=== PATIENT | female | born 1975 | race Caucasian/White ===

== ENCOUNTER 2016-11-14 10:54 | Inpatient (IN) | payer MEDICARE, MEDICAID ==
[~2016-11-14] VITALS: Ht 162.6 cm; Wt 48.7 kg
[2016-11-14] VITALS (9 sets, daily range): BP systolic 90–109; BP diastolic 54–66; PULSE 61–94; RESP 16–18; TEMP 95.5–98.7; O2SAT 95–100
[~2016-11-14 10:54] MED LIST: AMIT25TA9 PO; CITA40TA4 PO; IMIT50TA PO; MEST60TA PO; MYCO500 PO; PRED10 PO; TRAM50TA PO; XANA1TAB2 PO
[2016-11-14] MEDS ORDERED: KETOROLAC TROMETHAMINE 30 MG/ML (IVP) VIAL IV PUSH ONE (11:30)
[2016-11-14] MEDS ORDERED: SODIUM CHLORIDE 0.9% FLUSH 5 ML FLUSH IVF PRN (11:30)
[2016-11-14] MEDS ORDERED: SODIUM CHLORID 0.9% 500 ML INJ 500 ML IV ONE (11:30)
[2016-11-14 11:42] LABS: AUTOMATED NEUTROPHIL # 12.7 TH/MM3 (1.8-7.7); BASOPHIL # 0.1 TH/MM3 (0-0.2); BASOPHIL % 0.6 % (0.0-2.0); EOSINOPHIL # 0.2 TH/MM3 (0-0.4); EOSINOPHIL % 1.2 % (0.0-4.0); HEMATOCRIT 34.3 % (35.0-46.0); HEMO FLAGS DIFF FINAL; LYMPHOCYTE # 3.1 TH/MM3 (1.0-4.8); MEAN CELL VOLUME 84.2 FL (80.0-100.0); MEAN CORPUSCULAR HEMOGLOBIN 27.9 PG (27.0-34.0); MEAN CORPUSCULAR HGB CONC 33.1 % (32.0-36.0); MONO % 5.7 % (0.0-8.0); NEUT % 74.5 % (16.0-70.0); PLATELET COUNT 395 TH/MM3 (150-450); RED BLOOD COUNT 4.07 MIL/MM3 (4.00-5.30); RED CELL DISTRIBUTION WIDTH 18.2 % (11.6-17.2); WHITE BLOOD COUNT 17.1 TH/MM3 (4.0-11.0)
[2016-11-14] MEDS ORDERED: PRED20 PO (11:50)
--- NOTE | 2016-11-14 11:50 | PD ---
HPI Chief Complaint: General Weakness Time Seen by Provider: 11:05 Travel History International Travel<30 days: No Contact w/Intl Traveler<30days: No Traveled to known affect area: No History of Present Illness HPI Patient is a 41-year-old female with history of myasthenia gravis, presents to emergency room with complaints of myasthenia gravis exacerbation. Patient has had multiple admissions for myasthenia gravis exacerbation was diagnosed in 2011. Patient reports that she has follow-up with Drs. Leonardo De La Fuente in the past , reports that now she follows up with in the office. Patient reports that since Wednesday, she has had increased right eye proptosis as well as generalized weakness as well as weakness in her legs and neck muscles. Patient reports that she does follow with Dr. Banuelos with neurology in his office last seen on Wednesday and was told that she was having the beginning of "MG exacerbation". Reports that she has been compliant with all her medications as prescribed. Patient reports that she has been prescribed Mestinon, CellCept and prednisone, reports that she has been taking all his medications as prescribed. Reports that every time she has myasthenia gravis exacerbation, she gets admitted to the hospital for IVIG. Patient denies shortness of breath or chest pain at this time. Patient denies nausea or vomiting. No other c/o. PFSH Past Medical History Anemia: Yes Arthritis: No Autoimmune Disease: Yes (MYASTHENA GRAVIS) Blood Disorders: No Anxiety: Yes Depression: Yes Heart Rhythm Problems: No Cancer: No Cardiovascular Problems: No High Cholesterol: No Chest Pain: No Congestive Heart Failure: No Cerebrovascular Accident: No Cystic Fibrosis: No Diabetes: No Diminished Hearing: No Endocrine: No Gastrointestinal Disorders: Yes Genitourinary: No Hepatitis: No Hiatal Hernia: No Hypertension: No Immune Disorder: Yes (MYASTHENIA GRAVIS) Implanted Vascular Access Dvce: Yes (left chest) Musculoskeletal: Yes Neurologic: Yes (MYASTHENIA GRAVIS - Jul, 2013) Psychiatric: Yes (DEPRESSION, ANXIETY) Reproductive: No Respiratory: No Immunizations Current: No Migraines: Yes Seizures: No Thyroid Disease: No ?: Not : 2 Para: 2 Dilation and Curettage (D&C): Yes Tubal Ligation: Yes Past Surgical History Abdominal Surgery: No Body Medical Devices: LEFT IMPLANTED PORT Cardiac Surgery: No Ear Surgery: No Endocrine Surgery: Yes ( ) Eye Surgery: No Genitourinary Surgery: No Gynecologic Surgery: Yes (tubal ligation 2014) Neurologic Surgery: No Oral Surgery: Yes (EXTRACTIONS) Thoracic Surgery: No Tonsillectomy: Yes Other Surgery: Yes (tubal ligation Dec 2014/ POWER PORT TO LEFT CHEST) Social History Alcohol Use: No Tobacco Use: Yes (< 1/2 PPD) Substance Use: No Allergies-Medications (Allergen,Severity, Reaction): Coded Allergies: Penicillin (Verified Allergy, Severe, Anaphylaxis, 11/14/16) Phenergan (Verified Adverse Reaction, Severe, NAUSEOUS, 11/14/16) Reported Meds & Prescriptions Reported Meds & Active Scripts Active Reported Prednisone 20 Mg Tab 20 Mg PO DAILY Tramadol (Tramadol HCl) 50 Mg Tab 50 Mg PO Q4H PRN Mestinon (Pyridostigmine [place]) 60 Mg Tab 120 Mg PO TID Imitrex (Sumatriptan Succinate) 50 Mg Tab 50 Mg PO DAILY PRN If a satisfactory response has not been obtained at 2 hours, a second dose may be administered Citalopram (Citalopram Hydrobromide) 40 Mg Tab 40 Mg PO DAILY Amitriptyline (Amitriptyline HCl) 25 Mg Tab 25 Mg PO HS Xanax (Alprazolam) 1 Mg Tab 1 Mg PO QID Review of Systems General / Constitutional: No: Fever Eyes: Positive: Other (ptosis), No: Visual changes HENT: No: Headaches Cardiovascular: No: Chest Pain or Discomfort Respiratory: No: Shortness of Breath Gastrointestinal: No: Abdominal Pain Genitourinary: No: Dysuria Musculoskeletal: Positive: Weakness, No: Pain Skin: No Rash Neurologic: No: Weakness Psychiatric: No: Depression Endocrine: No: Polydipsia Hematologic/Lymphatic: No: Easy Bruising Physical Exam Narrative GENERAL: mild distress SKIN: Warm and dry. HEAD: Atraumatic. Normocephalic. EYES: Pupils equal and round. right eye ptosis ENT: No nasal bleeding or discharge. Mucous membranes pink and moist. NECK: Trachea midline. No JVD. CARDIOVASCULAR: Regular rate and rhythm. No murmur appreciated. RESPIRATORY: No accessory muscle use. Clear to auscultation. Breath sounds equal bilaterally. GASTROINTESTINAL: Abdomen soft, non-tender, nondistended. Hepatic and splenic margins not palpable. MUSCULOSKELETAL: No obvious deformities. No clubbing. No cyanosis. No edema. NEUROLOGICAL: Awake and alert. No obvious cranial nerve deficits. Motor grossly within normal limits. Normal speech. PSYCHIATRIC: Appropriate mood and affect; insight and judgment normal. Data Data Last Documented VS Vital Signs Date Time Temp Pulse Resp B/P Pulse Ox O2 Delivery O2 Flow Rate FiO2 11/14/16 11:38 98 Room Air 11/14/16 11:05 90 18 11/14/16 11:05 98.7 109/66 Orders Electrocardiogram (11/14/16 11:17) Ckmb (Isoenzyme) Profile (11/14/16 11:17) Complete Blood Count With Diff (11/14/16 11:17) Comprehensive Metabolic Panel (11/14/16 11:17) Prothrombin Time / Inr (Pt) (11/14/16 11:17) Act Partial Throm Time (Ptt) (11/14/16 11:17) Troponin I (11/14/16 11:17) Chest, Single Ap (11/14/16 11:17) Ecg Monitoring (11/14/16 11:17) Iv Access Insert/Monitor (11/14/16 11:17) Oximetry (11/14/16 11:17) Sodium Chloride 0.9% Flush (Ns Flush) (11/14/16 11:30) Sodium Chlorid 0.9% 500 Ml Inj (Ns 500 M (11/14/16 11:30) Ed Urine Pregnancytest Poc (11/14/16 11:17) Ketorolac Inj (Toradol Inj) (11/14/16 11:30) Resp Incentive Spirometry (11/14/16 ) Consult Neurology (11/14/16 ) Admit Order (Ed Use Only) (11/14/16 13:04) Labs Laboratory Tests Test 11/14/16 11:30 White Blood Count 17.1 TH/MM3 Red Blood Count 4.07 MIL/MM3 Hemoglobin 11.4 GM/DL Hematocrit 34.3 % Mean Corpuscular Volume 84.2 FL Mean Corpuscular Hemoglobin 27.9 PG Mean Corpuscular Hemoglobin 33.1 % Concent Red Cell Distribution Width 18.2 % Platelet Count 395 TH/MM3 Mean Platelet Volume 8.4 FL Neutrophils (%) (Auto) 74.5 % Lymphocytes (%) (Auto) 18.0 % Monocytes (%) (Auto) 5.7 % Eosinophils (%) (Auto) 1.2 % Basophils (%) (Auto) 0.6 % Neutrophils # (Auto) 12.7 TH/MM3 Lymphocytes # (Auto) 3.1 TH/MM3 Monocytes # (Auto) 1.0 TH/MM3 Eosinophils # (Auto) 0.2 TH/MM3 Basophils # (Auto) 0.1 TH/MM3 CBC Comment DIFF FINAL Differential Comment Prothrombin Time 10.6 SEC Prothromb Time International 1.0 RATIO Ratio Activated Partial 28.7 SEC Thromboplast Time Sodium Level 138 MEQ/L Potassium Level 3.2 MEQ/L Chloride Level 107 MEQ/L Carbon Dioxide Level 27.6 MEQ/L Anion Gap 3 MEQ/L Blood Urea Nitrogen 4 MG/DL Creatinine 0.85 MG/DL Estimat Glomerular Filtration 74 ML/MIN Rate Random Glucose 79 MG/DL Calcium Level 8.7 MG/DL Total Bilirubin 0.2 MG/DL Aspartate Amino Transf 10 U/L (AST/SGOT) Alanine Aminotransferase 14 U/L (ALT/SGPT) Alkaline Phosphatase 44 U/L Total Creatine Kinase 75 U/L Troponin I LESS THAN 0.02 NG/ML Total Protein 6.7 GM/DL Albumin 3.8 GM/DL [facility] Medical Decision Making Medical Screen Exam Complete: Yes Emergency Medical Condition: Yes Interpretation(s) EKG at 1146: Normal sinus rhythm at 80 bpm, QT/QTC 370/409, no acute ST or T- wave changes. Vital Signs Date Time Temp Pulse Resp B/P Pulse Ox O2 Delivery O2 Flow Rate FiO2 11/14/16 11:38 98 Room Air 11/14/16 11:05 90 18 98 Room Air 11/14/16 11:05 98.7 94 18 109/66 98 Room Air 11/14/16 11:01 98.7 92 18 109/66 98 Differential Diagnosis Electrolyte abnormality, myasthenia gravis exacerbation Narrative Course Patient is a 41-year-old female who presents to emergency room from treatment and evaluation of myasthenia gravis exacerbation. Patient reports that she has had aura proptosis as well as generalized weakness since Wednesday of last week. Patient does follow with Dr. Banuelos with neurology as outpt and was last seen on wednesday. Reports her symptoms are similar to when she's had exacerbations of MG in the past. Call made to - reports that he did see her in the office last week. Reports the patient does have IVIG and CellCept which patient has not been able to obtain secondary to change of insurance. Reports that he had planned to eventually change her from IVIG to Imuron. Request that patient be admitted to hospital for IVIG treatment for MG exacerbation. Dr Banuelos does not have privileges here at [facility]. Call made to medicine for admission. Discussed case with Dr. Mckeon who will see patient in consult case discussed with Dr Solomon who accepts pt to service. Dr. Ta request that I give her the first dose of IVIG in the emergency room. Previous records were reviewed, patient received IVIG therapy at 400 mg/kg per day 3 days. Will give her a 400 mg/kg dose at this time. Diagnosis Primary Impression: Myasthenia gravis with exacerbation Admitting Information Admitting Physician Requests: Jessy Escobar DO Nov 14, 2016 11:50
--- NOTE | 2016-11-14 11:51 | RADRPT ---
EXAM DATE/TIME: 11/14/2016 11:38 [facility] COMPARISON: No previous studies available for comparison. INDICATIONS : Fever. General weakness. MEDICAL HISTORY : Myasthenia gravis SURGICAL HISTORY : [place]. ENCOUNTER: Initial ACUITY: 1 day PAIN SCORE: 0/10 LOCATION: Bilateral chest FINDINGS: A single view of the chest demonstrates the lungs to be symmetrically aerated without evidence of mas s, infiltrate or effusion. The cardiomediastinal contours are unremarkable. Left-sided portacatheter unchanged. Osseous structures are intact. CONCLUSION: No acute disease. Reginald Fisher MD on November 14, 2016 at 11:49 Board Certified Radiologist. This report was verified electronically.
[2016-11-14 11:58] LABS: APTT (PATIENT) 28.7 SEC (24.3-30.1); PROTHROMBIN TIME - PATIENT 10.6 SEC (9.8-11.6)
[2016-11-14 11:59] LABS: ANION GAP 3 MEQ/L (5-15); AST (GOT) 10 U/L (15-37); BICARBONATE 27.6 MEQ/L (21.0-32.0); BLOOD UREA NITROGEN 4 MG/DL (7-18); CHLORIDE 107 MEQ/L (98-107); GLOMERULAR FILTRATION RATE 74 ML/MIN (>89); POTASSIUM 3.2 MEQ/L (3.5-5.1); SODIUM (NA) 138 MEQ/L (136-145)
[2016-11-14 12:05] LABS: ALKALINE PHOSPHATASE 44 U/L (45-117); ALT (GPT) 14 U/L (10-53); TOTAL BILIRUBIN ADULT 0.2 MG/DL (0.2-1.0)
[2016-11-14 12:11] LABS: CREATINE KINASE 75 U/L (26-192)
[2016-11-14] MEDS ORDERED: IMMUNE GLOBULIN INJ 20 GM in SYRINGE/BAG 1 EA IV SCH (13:15)
[2016-11-14] MEDS ORDERED: DIPHENHYDRAMINE HCL 50 MG/ML VIAL Reaction Med IV PUSH PRN (14:00)
[2016-11-14] MEDS ORDERED: EPINEPHRINE HCL (1:1000) 1 MG/ML AMP Reaction Med OTHER PRN (14:00)
[2016-11-14] MEDS ORDERED: MAGNESIUM HYDROXIDE SUSP 30 ML CUP PO PRN (14:15)
[2016-11-14] MEDS ORDERED: NALOXONE HCL 0.4 MG/ML AMP IV PRN (14:15)
[2016-11-14] MEDS ORDERED: BISACODYL 10 MG SUPP PR PRN (14:15)
[2016-11-14] MEDS: DOCUSATE SODIUM 100 MG CAP PO SCH ×2 (14:15→21:00)
[2016-11-14] MEDS ORDERED: SODIUM CHLORIDE 0.9% FLUSH 5 ML FLUSH FLUSH PRN (14:15)
[2016-11-14] MEDS ORDERED: SUMAtriptan SUCCINATE 50 MG TAB PO PRN (14:30)
[2016-11-14] MEDS: HEPARIN SODIUM - SQ 10,000 UNITS/ML VIAL SQ SCH ×2 (15:00→21:40)
[2016-11-14] MEDS ORDERED: ACETAMINOPHEN 325 MG TAB PO PRN (15:00)
[2016-11-14] MEDS: D5W as prime bag (IVIG as secondary) IV SCH (15:00)
[2016-11-14] MEDS: DIPHENHYDRAMINE HCL 25 MG CAP Pre-med PO SCH (15:14)
[2016-11-14] MEDS: NS 500 ML Pre-hydration IV SCH (15:14)
[2016-11-14] MEDS: ACETAMINOPHEN 325 MG TAB Pre-med PO SCH (15:15)
[2016-11-14] MEDS: IMMUNE GLOBULIN INJ 20 GM in SYRINGE/BAG 1 EA IV SCH (16:13)
--- NOTE | 2016-11-14 16:51 | HHI.HP ---
HPI Service [facility] Hospitalists Primary Care Physician Unknown Admission Diagnosis Myastenia Gravis Exacerbation Diagnoses: Chief Complaint: Myasthenia gravis flareup Travel History International Travel<30 Days: No Contact w/Intl Traveler <30 Da: No Traveled to Known Affected Are: No History of Present Illness 41 years old female with a history of myasthenia gravis diagnosed in 2011 with multiple several relapses and admission to the hospital patient follow up with Dr. De La Fuente and she start following up with another neurology who doesn't have privileges at [facility], the neurologist was contacted from ED stating that patient stop getting her CellCept and IVIG due to lack of insurance coverage. Patient having problem with severe worsening weakness, neurologist recommended admission to the hospital and consulting the house neurology. When I came to see the patient she was extremely subtle and after getting ketorolac and Benadryl, she was unable to give any history. She was arousable to tactile stimuli but she goes right back to sleep. I discussed with the nurse, patient started on IVIG dose, patient had thymectomy in 2012, most of the history was obtained from EMR previous record Review of Systems ROS Limitations: Clinical Condition, Other (patient is extremely subtle and after getting Benadryl and ketorolac in ED) Past Family Social History Past Medical History Myasthenia gravis Anxiety Depression Questionable chronic pain syndrome? Past Surgical History Past Surgical History Tonsillectomy Thymectomy Port placement of left chest Allergies: Coded Allergies: Penicillin (Verified Allergy, Severe, Anaphylaxis, 11/14/16) Phenergan (Verified Adverse Reaction, Severe, NAUSEOUS, 11/14/16) Family History Father had history of pancreatic cancer Mother with history of hypothyroidism Social History No alcohol abuse Smoke < 1/2 PPD) Positive history of Marijuana use Physical Exam Vital Signs Vital Signs Date Time Temp Pulse Resp B/P Pulse Ox O2 Delivery O2 Flow Rate FiO2 11/14/16 15:00 74 16 101/59 100 Room Air 11/14/16 13:00 94 17 108/61 100 Room Air 11/14/16 11:38 98 Room Air 11/14/16 11:05 90 18 98 Room Air 11/14/16 11:05 98.7 94 18 109/66 98 Room Air 11/14/16 11:01 98.7 92 18 109/66 98 Physical Exam - GENERAL: This is a thin female, somnolent in no apparent distress. SKIN: No rashes, warm and dry HEAD: Atraumatic. Normocephalic. EYES: Pupils equal restricted. ENT: Nose without bleeding, or drainage, Airway patent. NECK: Trachea midline. Supple CARDIOVASCULAR: Regular rate and rhythm without murmurs, gallops, or rubs. RESPIRATORY: Fair air entry bilaterally. No wheezes, rales, or rhonchi. GASTROINTESTINAL: Abdomen soft, non-tender, nondistended. Positive bowel sounds MUSCULOSKELETAL: Extremities without clubbing, cyanosis, or edema. Pedal pulses appreciated NEUROLOGICAL: Somnolent, abusable to tactile stimuli Laboratory Laboratory Tests Test 11/14/16 11:30 White Blood Count 17.1 Red Blood Count 4.07 Hemoglobin 11.4 Hematocrit 34.3 Mean Corpuscular Volume 84.2 Mean Corpuscular Hemoglobin 27.9 Mean Corpuscular Hemoglobin 33.1 Concent Red Cell Distribution Width 18.2 Platelet Count 395 Mean Platelet Volume 8.4 Neutrophils (%) (Auto) 74.5 Lymphocytes (%) (Auto) 18.0 Monocytes (%) (Auto) 5.7 Eosinophils (%) (Auto) 1.2 Basophils (%) (Auto) 0.6 Neutrophils # (Auto) 12.7 Lymphocytes # (Auto) 3.1 Monocytes # (Auto) 1.0 Eosinophils # (Auto) 0.2 Basophils # (Auto) 0.1 CBC Comment DIFF FINAL Differential Comment Prothrombin Time 10.6 Prothromb Time International 1.0 Ratio Activated Partial 28.7 Thromboplast Time Sodium Level 138 Potassium Level 3.2 Chloride Level 107 Carbon Dioxide Level 27.6 Anion Gap 3 Blood Urea Nitrogen 4 Creatinine 0.85 Estimat Glomerular Filtration 74 Rate Random Glucose 79 Calcium Level 8.7 Total Bilirubin 0.2 Aspartate Amino Transf 10 (AST/SGOT) Alanine Aminotransferase 14 (ALT/SGPT) Alkaline Phosphatase 44 Total Creatine Kinase 75 Troponin I LESS THAN 0.02 Total Protein 6.7 Albumin 3.8 Result Diagram: 11/14/16 1130 11/14/16 1130 Assessment and Plan Assessment and Plan 5 years old female with history of myasthenia gravis and thymectomy came with Myasthenia gravis flareup: Neurology consulted, started IVIG, continue prednisone and Mestinon from home meds rec, close monitoring for any respiratory failure Anxiety and depression: Resume Elavil, Celexa from home meds rec Chronic back pain: Avoid narcotics at this point, questionable history of drug- seeking behavior in the past DVT prophylaxis with heparin and SCD Discussed with the nurse and with the ED PA Discussed Condition With PA from ED and nurse Physician Certification 2 Midnight Certification Type: Admission for Inpatient Services Order for Inpatient Services The services are ordered in accordance with Medicare regulations or non- Medicare payer requirements, as applicable. In the case of services not specified as inpatient-only, they are appropriately provided as inpatient services in accordance with the 2-midnight benchmark. Estimated LOS (days): 2 days is the estimated time the patient will need to remain in the hospital, assuming treatment plan goals are met and no additional complications. Post-Hospital Plan: Not yet determined Miguel Ángel Solomon MD Nov 14, 2016 16:51
[2016-11-14] MEDS: ALPRAZolam 1 MG TAB PO SCH ×2 (18:00→21:00)
[2016-11-14] MEDS: PYRIDOSTIGMINE BROMIDE 60 MG TAB PO SCH (18:00)
[2016-11-14] MEDS: AMITRIPTYLINE HCL 25 MG TAB PO SCH (21:00)
[2016-11-14] MEDS: SODIUM CHLORIDE 0.9% FLUSH 5 ML FLUSH FLUSH SCH (21:40)
[2016-11-15] VITALS (10 sets, daily range): BP systolic 93–142; BP diastolic 50–89; PULSE 62–87; RESP 16–18; TEMP 95.7–98.8; O2SAT 96–100
[2016-11-15] MEDS: ALPRAZolam 1 MG TAB PO SCH ×4 (03:13→20:10)
[2016-11-15] MEDS: KETOROLAC TROMETHAMINE 60 MG/2 ML (IM) VIAL IM PRN ×4 (03:14→20:18)
[2016-11-15] MEDS: HEPARIN SODIUM - SQ 10,000 UNITS/ML VIAL SQ SCH ×3 (03:31→20:21)
[2016-11-15 03:45] LABS: AUTOMATED NEUTROPHIL # 4.9 TH/MM3 (1.8-7.7); BASOPHIL # 0.1 TH/MM3 (0-0.2); BASOPHIL % 0.9 % (0.0-2.0); EOSINOPHIL # 0.3 TH/MM3 (0-0.4); EOSINOPHIL % 3.4 % (0.0-4.0); HEMATOCRIT 32.7 % (35.0-46.0); HEMO FLAGS DIFF FINAL; LYMPH % 32.3 % (9.0-44.0); LYMPHOCYTE # 2.7 TH/MM3 (1.0-4.8); MEAN CELL VOLUME 85.4 FL (80.0-100.0); MEAN CORPUSCULAR HEMOGLOBIN 28.5 PG (27.0-34.0); MEAN CORPUSCULAR HGB CONC 33.4 % (32.0-36.0); NEUT % 58.4 % (16.0-70.0); PLATELET COUNT 323 TH/MM3 (150-450); RED BLOOD COUNT 3.83 MIL/MM3 (4.00-5.30); RED CELL DISTRIBUTION WIDTH 17.9 % (11.6-17.2); WHITE BLOOD COUNT 8.5 TH/MM3 (4.0-11.0)
[2016-11-15 03:51] LABS: BICARBONATE 29.2 MEQ/L (21.0-32.0)
--- NOTE | 2016-11-15 04:18 | MB ---
cc: JOSÉ ESTEVEZ MD DATE OF CONSULTATION: 09/13/2017 REASON FOR CONSULTATION: Myasthenia gravis exacerbation. HISTORY OF PRESENT ILLNESS Ms. Rodríguez is a 41-year-old female with past medical history of myasthenia gravis diagnosed in 2011 with several admissions to the hospital for relapses and IVIG administration. She used to follow with Dr. De La Fuente who discharged her from his service and now she has follow up with Dr. Charlton who does not have privileges at [facility]. Her current neurologist was contacted by the ED physician and he stated that the patient currently is not getting CellCept or IVIG due to lack of insurance coverage. The patient states during the encounter that she has severe worsening of her symptoms double vision, blurry vision, difficulty with swallowing. During the encounter the patient was very sleepy after she received acute Ketorolac and Benadryl. The patient will be started on a IVIG under the recommendation of her neurologist and the worsening of her myasthenia gravis symptoms. REVIEW OF SYSTEMS A 12-point review of system is negative except for what is mentioned above. PAST MEDICAL HISTORY Obtained from medical records as the patient was sleepy during most of the encounter. 1. Myasthenia gravis. 2. Anxiety. 3. Depression. 4. Chronic pain. PAST SURGICAL HISTORY 1. Tonsillectomy, thymectomy in 2012. 2. Port placement of the left chest. ALLERGIES: PENICILLIN PHENERGAN FAMILY HISTORY Father with history of pancreatic cancer, mother with history of hypothyroidism. SOCIAL HISTORY: Denies alcohol use. Smokes daily half pack per day, history of marijuana use. Chronic pain medication user. PHYSICAL EXAMINATION General: The patient was sleepy and somnolent during most of the encounter but arousable to verbal stimuli. Not in acute distress. HEENT: Atraumatic, normocephalic. Intact hearing, intact vision. NECK: Supple. Mild weakness of neck flexion. No signs of meningeal irritation. CARDIOVASCULAR: Regular rate and rhythm. No murmurs. RESPIRATORY: Clear to auscultation, no wheezes. NEUROLOGIC: Awake, oriented to time, person, place, however, sleepy due to the effect of the different medications. Cranial nerves show bilateral ptosis with nasal tune to her speech. Total bilateral facial palsy. Intact elevation of the uvula. Weak neck flexor. Pupils 2 millimeters equal and reactive, bilateral shoulder abduction 5 minus, hip flexion 4+/5. The rest of the motor system is 5/5. No abnormal movement, normal tone. Reflexes 1+ bilateral symmetrical. Plantars bilateral downgoing. Sensation is intact, cerebellar function is intact. Gait and stance is deferred at this time. LABORATORY DATA: White blood cells 17.1, hemoglobin 11.4, MCV 84.2, platelet count 395, sodium 138, potassium 3.2, anion gap 3, BUN 4, creatinine 0.85, calcium 8.7, AST 10, ALT 14. DIAGNOSTIC IMPRESSION 1. History of myasthenia gravis. 2. Myasthenia gravis exacerbation. PLAN: 1. IVIG three doses at 400 mg/Kg/day. To receive first dose this evening. 2. Continue prednisone at home dose 20 mg daily. 3. Continue Mestinon at 120 mg three times daily home dose. 4. Check vital capacity twice daily 5. PT, OT recommendations are appreciated. 6. Bedside swallow test. 7. Vital signs: Checks q. 6 hourly. Thank you for the opportunity to participate in the care of your patient. id MD GREG Solomon/TIM /9:40 PM /3:41 AM [email or web address]
[2016-11-15] MEDS: predniSONE 20 MG TAB PO SCH (07:31)
[2016-11-15] MEDS: DOCUSATE SODIUM 100 MG CAP PO SCH ×2 (07:31→20:10)
[2016-11-15] MEDS: PYRIDOSTIGMINE BROMIDE 60 MG TAB PO SCH ×3 (07:31→18:16)
[2016-11-15] MEDS: CITALOPRAM HYDROBROMIDE 40 MG TAB PO SCH (07:31)
[2016-11-15] MEDS: SODIUM CHLORIDE 0.9% FLUSH 5 ML FLUSH FLUSH SCH ×2 (09:00→20:10)
--- NOTE | 2016-11-15 12:06 | EKG ---
Date Performed: 11/14/2016 Time Performed: 11:46:56 PTAGE: 41 years EKG: Sinus rhythm POSSIBLE RIGHT ATRIAL ENLARGEMENT LEFT ATRIAL ENLARGEMENT BORDERLINE RIGHT AXIS DEVIATION NONSPECIFI C T-WAVE ABNORMALITY Since previous tracing, no significant change noted ABNORMAL ECG PREVIOUS TRACING : 08/20/2015 15.25 DOCTOR: Ko Smith Interpretating Date/Time 11/15/2016 12:05:04
--- NOTE | 2016-11-15 13:11 | HHI.PR ---
Subjective Remarks Patient looks much better today she is awake alert she was on the phone and trying to write some nodes She told me her right eye "soggy and blurry ", no chest pain or short of breath or fever or chills Patient seen by neurology she stated she would rather have 5 of the IVIG doses instead of 3, she discussed that with the neurology and he recommended assessing on a daily basis Patient asked for pain medication and to change her diet to regular Objective Vitals Vital Signs Date Time Temp Pulse Resp B/P Pulse Ox O2 Delivery O2 Flow Rate FiO2 11/15/16 07:14 97.5 66 16 93/54 96 11/15/16 04:01 96.4 62 17 96/51 96 11/15/16 00:03 96.0 69 17 98/54 96 11/14/16 20:01 96.6 61 16 92/54 95 11/14/16 20:00 64 11/14/16 16:35 95.5 66 18 90/55 100 11/14/16 15:00 74 16 101/59 100 Room Air I/O 11/14/16 11/14/16 11/14/16 11/15/16 11/15/16 11/15/16 07:00 15:00 23:00 07:00 15:00 23:00 Intake Total 560 ml 713 ml Balance 560 ml 713 ml Intake Oral 360 ml 480 ml IV Total 200 ml 233 ml # Voids 1 1 # Bowel Movements 0 0 Result Diagram: 11/15/16 0320 11/15/16 0320 Objective Remarks - GENERAL: This is a well-nourished, well-developed patient, in no apparent distress. SKIN: No rashes, warm and dry HEAD: Atraumatic. Normocephalic. EYES: Mild ptosis on the right eye ENT: Nose without bleeding, or drainage, Airway patent. NECK: Trachea midline. Supple CARDIOVASCULAR: Regular rate and rhythm without murmurs, gallops, or rubs. RESPIRATORY: Fair air entry bilaterally. No wheezes, rales, or rhonchi. GASTROINTESTINAL: Abdomen soft, non-tender, nondistended. Positive bowel sounds MUSCULOSKELETAL: Extremities without clubbing, cyanosis, or edema. Pedal pulses appreciated NEUROLOGICAL: Awake and alert. Moves all extremity. Normal speech.no focal neurological deficit A/P Assessment and Plan 5 years old female with history of myasthenia gravis and thymectomy came with Myasthenia gravis flareup: Appreciate Neurology consultation,, recommended continuing IVIG, continue prednisone and Mestinon , close monitoring for any respiratory failure vital capacity twice a day Anxiety and depression: Resume Elavil, Celexa from home meds rec Chronic back pain: Avoid narcotics at this point, questionable history of drug- seeking behavior in the past DVT prophylaxis with heparin and SCD Miguel Ángel Solomon MD Nov 15, 2016 13:11
[2016-11-15] MEDS: NS 500 ML Pre-hydration IV SCH (15:00)
[2016-11-15] MEDS: D5W as prime bag (IVIG as secondary) IV SCH (15:00)
[2016-11-15] MEDS: DIPHENHYDRAMINE HCL 25 MG CAP Pre-med PO SCH (15:03)
[2016-11-15] MEDS: ACETAMINOPHEN 325 MG TAB Pre-med PO SCH (15:03)
[2016-11-15] MEDS: NICOTINE 21 MG/24 HR PATCH TD SCH (15:46)
[2016-11-15] MEDS: IMMUNE GLOBULIN INJ 20 GM in SYRINGE/BAG 1 EA IV SCH (15:54)
[2016-11-15] MEDS: AMITRIPTYLINE HCL 25 MG TAB PO SCH (20:10)
[2016-11-15] MEDS: REMOVE OLD NICODERM (NICOTINE) PATCH TD SCH (20:21)
[2016-11-15] MEDS: IMPLANTED VASCULAR ACCESS PORT - SODIUM CHLORIDE FLUSH PRN IVF (23:35)
--- NOTE | 2016-11-15 23:52 | HHI.PR ---
Review/Management Diagnosis - History of myasthenia gravis. - Myasthenia gravis exacerbation. Plan 1. IVIG three doses at 400 mg/Kg/day. Today second dose of three. 2. Continue prednisone at home dose 20 mg daily. 3. Continue Mestinon at 120 mg three times daily home dose. 4. Check vital capacity twice daily 5. PT, OT recommendations are appreciated. 6. Bedside swallow test. 7. Vital signs: Checks q. 6 hourly. Diagnosis/Plan: Subjective Subjective Comments No acute events reported No headache No chest pain No dyspnea Active Medications Current Medications Medications (Trade) Dose Ordered Sig/Gómez Route Start Time Stop Time Status Last Admin (NS 500 ml Inj) 500 ml @ 500 mls/hr Q24H IV 11/14/16 15:00 11/18/16 15:59 11/15/16 15:00 (Tylenol) 650 mg Q24H PO 11/14/16 15:00 11/19/16 14:59 11/15/16 15:03 Diphenhydramine HCl 25 mg 25 mg Q24H PO 11/14/16 15:00 11/19/16 14:59 11/15/16 15:03 (D5W 500 ml Inj) 500 ml @ 30 mls/hr Q24H IV 11/14/16 15:00 11/19/16 14:59 11/15/16 15:00 (Benadryl Inj) 50 mg UNSCH PRN IV PUSH 11/14/16 14:00 11/19/16 13:59 Epinephrine HCl 0.3 mg 0.3 mg Q10M PRN OTHER 11/14/16 14:00 11/19/16 13:59 (Privigen Inj/ Syringe/Bag) 200 ml @ 14.7 mls/hr Q24H IV 11/14/16 16:00 11/17/16 05:37 11/15/16 15:54 (NS Flush) 2 ml UNSCH PRN FLUSH 11/14/16 14:15 (NS Flush) 2 ml BID FLUSH 11/14/16 21:00 11/15/16 09:00 (Tylenol) 650 mg Q4H PRN PO 11/14/16 15:00 (Zofran Inj) 4 mg Q6H PRN IVP 11/14/16 14:15 (Dulcolax Supp) 10 mg DAILY PRN [place] 2/4/17 14:15 (Colace) 100 mg Q12HR PO 11/14/16 14:15 11/15/16 07:31 (Milk Of Magnesia Liq) 30 ml Q12HR PRN PO 11/14/16 14:15 (Heparin Inj) 5,000 units Q8HR SQ 11/14/16 15:00 11/14/16 21:40 (Narcan Inj) 0.4 mg UNSCH PRN IV 11/14/16 14:15 (Toradol Inj) 15 mg Q6H PRN IM 11/14/16 18:00 11/16/16 00:01 11/15/16 20:18 (Elavil) 25 mg HS PO 11/14/16 21:00 11/15/16 20:10 (CeleXA) 40 mg DAILY PO 11/15/16 09:00 11/15/16 07:31 (Deltasone) 20 mg DAILY PO 11/15/16 09:00 11/15/16 07:31 (Mestinon) 120 mg TID PO 11/14/16 18:00 11/15/16 18:16 (Imitrex) 50 mg DAILY PRN PO 11/14/16 14:30 11/15/16 23:28 (Xanax) 1 mg Q6H PO 11/15/16 15:00 11/15/16 20:10 (Habitrol 21 Mg Patch.24 Hr) 1 patch DAILY TD 11/15/16 16:00 11/15/16 15:46 Miscellaneous Information 1 HS TD 11/15/16 21:00 (NS Flush) 5 ml UNSCH PRN IVF 11/15/16 21:15 11/15/16 23:35 (Heparin Central Flush) 250 units UNSCH PRN IVF 11/15/16 21:15 11/15/16 23:29 Allergies Allergies Coded Allergies Penicillin (Verified Allergy, Severe, Anaphylaxis, 11/14/16) Phenergan (Verified Adverse Reaction, Severe, NAUSEOUS, 11/14/16) Review of Systems All other ROS: ROS reviewed as documented in chart Exam I&O / VS 11/14/16 11/14/16 11/15/16 15:00 23:00 07:00 Intake Total 560 ml 713 ml Balance 560 ml 713 ml Intake Oral 360 ml 480 ml IV Total 200 ml 233 ml # Voids 1 1 # Bowel Movements 0 0 Vital Signs Date Time Temp Pulse Resp B/P Pulse Ox O2 Delivery O2 Flow Rate FiO2 11/15/16 21:18 18 11/15/16 20:01 95.7 82 17 124/79 98 11/15/16 18:31 97.5 87 16 142/89 100 11/15/16 17:30 97.4 72 16 125/82 100 11/15/16 16:29 98.8 83 16 128/50 100 11/15/16 16:15 97.8 81 18 142/82 100 11/15/16 12:32 98.6 83 16 122/84 98 11/15/16 07:14 97.5 66 16 93/54 96 11/15/16 04:01 96.4 62 17 96/51 96 11/15/16 00:03 96.0 69 17 98/54 96 General: Alert and Oriented, No acute distress Eye: PERRL, EOMI, Normal conjuctiva, Vision unchanged Respiratory: Lungs CTA, Non-labored respirations Cardiology: Normal rate Musculoskeletal: ROM Neurologic: Alert, Oriented, Normal sensory, Normal motor, No focal defects, CN II-XII intact, Normal DTR's Psychiatric: Cooperative, Appropriate mood & affect, Normal judgement Exam Comments General: The patient is awake, speaks more clearly today with a louder voice, less nasal tune, compared to day of admission . Not in acute distress. HEENT: Atraumatic, normocephalic. Intact hearing, intact vision. NECK: Supple. Mild weakness of neck flexion. No signs of meningeal irritation. CARDIOVASCULAR: Regular rate and rhythm. No murmurs. RESPIRATORY: Clear to auscultation, no wheezes. NEUROLOGIC: Awake, oriented to time, person, place. Cranial nerves show bilateral ptosis with less nasal tune to her speech. subtle bilateral facial palsy. Intact elevation of the uvula. intact neck flexor. Pupils 2 millimeters equal and reactive, bilateral shoulder abduction 5 minus, hip flexion 4+/5. The rest of the motor system is 5/5. No abnormal movement, normal tone. Reflexes 1+ bilateral symmetrical. Plantars bilateral downgoing. Sensation is intact, cerebellar function is intact. Gait and stance is deferred at this time. Objective Radiology Results Last 72 hours Impressions Chest X-Ray 11/14/16 1117 Signed Impressions: Service Date/Time: Monday, November 14, 2016 11:38 - CONCLUSION: No acute disease. Reginald Fisher MD Micro and Labs Laboratory Tests Test 11/15/16 03:20 White Blood Count 8.5 Red Blood Count 3.83 Hemoglobin 10.9 Hematocrit 32.7 Mean Corpuscular Volume 85.4 Mean Corpuscular Hemoglobin 28.5 Mean Corpuscular Hemoglobin 33.4 Concent Red Cell Distribution Width 17.9 Platelet Count 323 Mean Platelet Volume 8.3 Neutrophils (%) (Auto) 58.4 Lymphocytes (%) (Auto) 32.3 Monocytes (%) (Auto) 5.0 Eosinophils (%) (Auto) 3.4 Basophils (%) (Auto) 0.9 Neutrophils # (Auto) 4.9 Lymphocytes # (Auto) 2.7 Monocytes # (Auto) 0.4 Eosinophils # (Auto) 0.3 Basophils # (Auto) 0.1 CBC Comment DIFF FINAL Differential Comment Sodium Level 141 Potassium Level 4.0 Chloride Level 109 Carbon Dioxide Level 29.2 Anion Gap 3 Blood Urea Nitrogen 5 Creatinine 0.79 Estimat Glomerular Filtration 81 Rate Random Glucose 95 Calcium Level 8.3 Shahram Bowman MD Nov 15, 2016 23:52
[2016-11-16] VITALS (18 sets, daily range): BP systolic 95–143; BP diastolic 57–105; PULSE 62–103; RESP 16–20; TEMP 95.7–98; O2SAT 96–100
[2016-11-16] MEDS ORDERED: MORPHINE SULFATE 4 MG/ML INJ IV PUSH ONE ×2 (01:00→14:00)
[2016-11-16] MEDS: ALPRAZolam 1 MG TAB PO SCH ×4 (03:00→21:20)
[2016-11-16] MEDS: KETOROLAC TROMETHAMINE 30 MG/ML (IVP) VIAL IV PUSH PRN ×4 (05:31→23:49)
[2016-11-16] MEDS: IMPLANTED VASCULAR ACCESS PORT - SODIUM CHLORIDE FLUSH PRN IVF (05:32)
[2016-11-16] MEDS: HEPARIN SODIUM - SQ 10,000 UNITS/ML VIAL SQ SCH ×3 (05:41→21:21)
[2016-11-16] MEDS: DOCUSATE SODIUM 100 MG CAP PO SCH ×2 (09:34→21:20)
[2016-11-16] MEDS: NICOTINE 21 MG/24 HR PATCH TD SCH (09:34)
[2016-11-16] MEDS: PYRIDOSTIGMINE BROMIDE 60 MG TAB PO SCH ×3 (09:34→17:27)
[2016-11-16] MEDS: predniSONE 20 MG TAB PO SCH (09:34)
[2016-11-16] MEDS: CITALOPRAM HYDROBROMIDE 40 MG TAB PO SCH (09:34)
[2016-11-16] MEDS: SODIUM CHLORIDE 0.9% FLUSH 5 ML FLUSH FLUSH SCH ×2 (09:40→21:19)
--- NOTE | 2016-11-16 13:04 | HHI.PR ---
Subjective Remarks complain of severe back pain, she told me she fell down in the bathroom even though she is not supposed to go by herself without assistance. She asked for pain medication, she is afebrile, on her third dose of IVIG Objective Vitals Vital Signs Date Time Temp Pulse Resp B/P Pulse Ox O2 Delivery O2 Flow Rate FiO2 11/16/16 10:27 96.9 75 16 113/66 99 11/16/16 09:41 73 11/16/16 07:47 97.1 103 16 138/105 98 11/16/16 06:27 98.0 89 16 128/64 96 11/16/16 04:01 96.4 76 18 126/90 99 11/16/16 03:27 97.4 78 17 121/77 96 11/16/16 02:27 97.3 71 18 126/79 99 11/16/16 00:28 18 11/16/16 00:27 96.5 70 20 143/90 100 11/15/16 21:18 18 11/15/16 20:01 95.7 82 17 124/79 98 11/15/16 18:31 97.5 87 16 142/89 100 11/15/16 17:30 97.4 72 16 125/82 100 11/15/16 16:29 98.8 83 16 128/50 100 11/15/16 16:15 97.8 81 18 142/82 100 I/O 11/15/16 11/15/16 11/15/16 11/16/16 11/16/16 11/16/16 07:00 15:00 23:00 07:00 15:00 23:00 Intake Total 713 ml 1200 ml 784 ml 720 ml Balance 713 ml 1200 ml 784 ml 720 ml Intake Oral 480 ml 1200 ml 360 ml 720 ml IV Total 233 ml 424 ml # Voids 1 6 7 3 # Bowel Movements 0 2 1 0 Result Diagram: 11/15/16 0320 11/15/16 0320 Objective Remarks - GENERAL: This is a well-nourished, well-developed patient, in no apparent distress. SKIN: No rashes, warm and dry HEAD: Atraumatic. Normocephalic. EYES: Mild ptosis on the right eye ENT: Nose without bleeding, or drainage, Airway patent. NECK: Trachea midline. Supple CARDIOVASCULAR: Regular rate and rhythm without murmurs, gallops, or rubs. RESPIRATORY: Fair air entry bilaterally. No wheezes, rales, or rhonchi. GASTROINTESTINAL: Abdomen soft, non-tender, nondistended. Positive bowel sounds MUSCULOSKELETAL: Extremities without clubbing, cyanosis, or edema. Pedal pulses appreciated NEUROLOGICAL: Awake and alert. Moves all extremity. Normal speech.no focal neurological deficit A/P Assessment and Plan 5 years old female with history of myasthenia gravis and thymectomy came with Myasthenia gravis flareup: Appreciate Neurology consultation,, recommended continuing IVIG, continue prednisone and Mestinon , close monitoring for any respiratory failure vital capacity twice a day Anxiety and depression: Resume Elavil, Celexa from home meds rec Chronic back pain: Avoid narcotics at this point, questionable history of drug- seeking behavior in the past DVT prophylaxis with heparin and SCD 11/16/16: Subjective story of falling down in the bathroom, vague nonspecific, she requesting different pain medication I will give her 1 dose of morphine sulfate she agree without, awaiting further recommendation from neurology Miguel Ángel Solomon MD Nov 16, 2016 13:04
[2016-11-16] MEDS: D5W as prime bag (IVIG as secondary) IV SCH (15:00)
[2016-11-16] MEDS: NS 500 ML Pre-hydration IV SCH (15:08)
[2016-11-16] MEDS: ACETAMINOPHEN 325 MG TAB Pre-med PO SCH (15:08)
[2016-11-16] MEDS: DIPHENHYDRAMINE HCL 25 MG CAP Pre-med PO SCH (15:08)
[2016-11-16] MEDS: IMMUNE GLOBULIN INJ 20 GM in SYRINGE/BAG 1 EA IV SCH (16:34)
[2016-11-16] MEDS: ONDANSETRON HCL 4 MG/2 ML VIAL IVP PRN ×2 (17:26→23:50)
[2016-11-16] MEDS: REMOVE OLD NICODERM (NICOTINE) PATCH TD SCH (21:19)
[2016-11-16] MEDS: AMITRIPTYLINE HCL 25 MG TAB PO SCH (21:20)
--- NOTE | 2016-11-16 22:39 | HHI.PR ---
Review/Management Diagnosis - History of myasthenia gravis. - Myasthenia gravis exacerbation. Plan - IVIG three doses at 400 mg/Kg/day. Today third and last dose - Continue prednisone at home dose 20 mg daily. - Continue Mestinon at 120 mg three times daily home dose. - Check vital capacity twice daily - PT, OT recommendations are appreciated. - Bedside swallow test. - Vital signs: Checks q. 6 hourly. - Patient is stable from neurology stand point, back to her base line motor function, if she remains so, she can be released to follow up with Dr. Mcdaniel, her primary neurologist, needs to be started as outpatient on Immune modulator therapy, Immuran. . Diagnosis/Plan: Subjective Subjective Comments No acute events reported Reported improvement in the clinical symptoms, muscle strength, eye lid dropping , swallowing No breathing difficulty reported Today third and last day of IVIG Active Medications Current Medications Medications (Trade) Dose Ordered Sig/Gómez Route Start Time Stop Time Status Last Admin (NS 500 ml Inj) 500 ml @ 500 mls/hr Q24H IV 11/14/16 15:00 11/18/16 15:59 11/16/16 15:08 (Tylenol) 650 mg Q24H PO 11/14/16 15:00 11/19/16 14:59 11/16/16 15:08 Diphenhydramine HCl 25 mg 25 mg Q24H PO 11/14/16 15:00 11/19/16 14:59 11/16/16 15:08 (D5W 500 ml Inj) 500 ml @ 30 mls/hr Q24H IV 11/14/16 15:00 11/19/16 14:59 11/15/16 15:00 (Benadryl Inj) 50 mg UNSCH PRN IV PUSH 11/14/16 14:00 11/19/16 13:59 Epinephrine HCl 0.3 mg 0.3 mg Q10M PRN OTHER 11/14/16 14:00 11/19/16 13:59 (Privigen Inj/ Syringe/Bag) 200 ml @ 14.7 mls/hr Q24H IV 11/14/16 16:00 11/17/16 05:37 11/16/16 16:34 (NS Flush) 2 ml UNSCH PRN FLUSH 11/14/16 14:15 (NS Flush) 2 ml BID FLUSH 11/14/16 21:00 11/16/16 09:40 (Tylenol) 650 mg Q4H PRN PO 11/14/16 15:00 (Zofran Inj) 4 mg Q6H PRN IVP 11/14/16 14:15 11/16/16 17:26 (Dulcolax Supp) 10 mg DAILY PRN [place] 11/14/16 14:15 (Colace) 100 mg Q12HR PO 11/14/16 14:15 11/16/16 21:20 (Milk Of Magnesia Liq) 30 ml Q12HR PRN PO 11/14/16 14:15 (Heparin Inj) 5,000 units Q8HR SQ 11/14/16 15:00 11/14/16 21:40 (Narcan Inj) 0.4 mg UNSCH PRN IV 11/14/16 14:15 (Elavil) 25 mg HS PO 11/14/16 21:00 11/16/16 21:20 (CeleXA) 40 mg DAILY PO 11/15/16 09:00 11/16/16 09:34 (Deltasone) 20 mg DAILY PO 11/15/16 09:00 11/16/16 09:34 (Mestinon) 120 mg TID PO 11/14/16 18:00 11/16/16 17:27 (Imitrex) 50 mg DAILY PRN PO 11/14/16 14:30 11/15/16 23:28 (Xanax) 1 mg Q6H PO 11/15/16 15:00 11/16/16 21:20 (Habitrol 21 Mg Patch.24 Hr) 1 patch DAILY TD 11/15/16 16:00 11/16/16 09:34 Miscellaneous Information 1 HS TD 11/15/16 21:00 (NS Flush) 5 ml UNSCH PRN IVF 11/15/16 21:15 11/16/16 05:32 (Heparin Central Flush) 250 units UNSCH PRN IVF 11/15/16 21:15 11/16/16 05:32 (Toradol Inj) 15 mg Q6H PRN IV PUSH 11/16/16 04:45 11/21/16 04:44 11/16/16 17:27 Allergies Allergies Coded Allergies Penicillin (Verified Allergy, Severe, Anaphylaxis, 11/14/16) Phenergan (Verified Adverse Reaction, Severe, NAUSEOUS, 11/14/16) Review of Systems All other ROS: ROS reviewed as documented in chart Exam I&O / VS 11/15/16 11/15/16 11/16/16 15:00 23:00 07:00 Intake Total 1200 ml 784 ml 720 ml Balance 1200 ml 784 ml 720 ml Intake Oral 1200 ml 360 ml 720 ml IV Total 424 ml # Voids 6 7 3 # Bowel Movements 2 1 0 Vital Signs Date Time Temp Pulse Resp B/P Pulse Ox O2 Delivery O2 Flow Rate FiO2 11/16/16 22:27 96.5 95 17 101/64 97 11/16/16 19:46 96.4 65 16 105/64 98 11/16/16 18:27 96.6 76 16 95/75 100 11/16/16 18:27 18 11/16/16 17:15 95.9 63 16 108/80 100 11/16/16 17:00 96.0 67 16 120/66 100 11/16/16 16:45 95.7 63 16 110/68 100 11/16/16 16:00 96.5 62 16 103/57 96 11/16/16 14:27 96.6 71 16 110/66 99 11/16/16 13:43 18 11/16/16 11:59 97.2 74 16 118/59 98 11/16/16 10:27 96.9 75 16 113/66 99 11/16/16 09:41 73 11/16/16 07:47 97.1 103 16 138/105 98 11/16/16 06:27 98.0 89 16 128/64 96 11/16/16 04:01 96.4 76 18 126/90 99 11/16/16 03:27 97.4 78 17 121/77 96 11/16/16 02:27 97.3 71 18 126/79 99 11/16/16 00:28 18 11/16/16 00:27 96.5 70 20 143/90 100 General: Alert and Oriented, No acute distress Eye: PERRL, EOMI, Normal conjuctiva, Vision unchanged Respiratory: Lungs CTA, Non-labored respirations Cardiology: Normal rate Musculoskeletal: ROM Neurologic: Alert, Oriented, Normal sensory, Normal motor, No focal defects, CN II-XII intact, Normal DTR's Psychiatric: Cooperative, Appropriate mood & affect, Normal judgement Exam Comments General: The patient is awake, speaks more clearly today with a louder voice, subtle nasal tune, compared to the day of admission . Not in acute distress. HEENT: Atraumatic, normocephalic. Intact hearing, intact vision. NECK: Supple. Mild weakness of neck flexion. No signs of meningeal irritation. CARDIOVASCULAR: Regular rate and rhythm. No murmurs. RESPIRATORY: Clear to auscultation, no wheezes. NEUROLOGIC: Awake, oriented to time, person, place. Cranial nerves show mild b/l ptosis with subtle nasal tune to her speech. subtle b/l facial palsy. Intact elevation of the uvula. intact neck flexor. Pupils 2 millimeters equal and reactive, bilateral shoulder abduction 5 minus, hip flexion 5-/5. The rest of the motor system is 5/5. No abnormal movement, normal tone. Reflexes 1+ bilateral symmetrical. Plantars bilateral downgoing. Sensation is intact, cerebellar function is intact. Gait and stance is intact with a cautious gait Objective Radiology Results Last 72 hours Impressions Chest X-Ray 11/14/16 1117 Signed Impressions: Service Date/Time: Monday, November 14, 2016 11:38 - CONCLUSION: No acute disease. Reginald Fisher MD Ossi,Shahram Eisenberg MD Nov 16, 2016 22:39
[2016-11-17 02:27] VITALS: BP 104/59; PULSE 61; RESP 16; TEMP 96.7; O2SAT 95
[2016-11-17] MEDS: ALPRAZolam 1 MG TAB PO SCH ×3 (03:28→15:00)
[2016-11-17] MEDS: HEPARIN SODIUM - SQ 10,000 UNITS/ML VIAL SQ SCH (04:39)
[2016-11-17] MEDS: KETOROLAC TROMETHAMINE 30 MG/ML (IVP) VIAL IV PUSH PRN ×2 (05:34→11:20)
[2016-11-17 06:27] VITALS: BP 112/69; PULSE 65; RESP 17; TEMP 97.1; O2SAT 98
[2016-11-17 07:36] VITALS: PULSE 73
[2016-11-17 08:00] VITALS: BP 99/50; PULSE 70; RESP 18; TEMP 97; O2SAT 98
[2016-11-17] MEDS: DOCUSATE SODIUM 100 MG CAP PO SCH (09:00)
[2016-11-17] MEDS: PYRIDOSTIGMINE BROMIDE 60 MG TAB PO SCH ×2 (09:26→15:00)
[2016-11-17] MEDS: NICOTINE 21 MG/24 HR PATCH TD SCH (09:26)
[2016-11-17] MEDS: CITALOPRAM HYDROBROMIDE 40 MG TAB PO SCH (09:26)
[2016-11-17] MEDS: predniSONE 20 MG TAB PO SCH (09:26)
[2016-11-17] MEDS: REMOVE OLD NICODERM (NICOTINE) PATCH TD SCH (09:26)
[2016-11-17] MEDS: SODIUM CHLORIDE 0.9% FLUSH 5 ML FLUSH FLUSH SCH (11:20)
[2016-11-17 12:00] VITALS: BP 95/60; PULSE 87; RESP 18; TEMP 96.7; O2SAT 98
--- NOTE | 2016-11-17 12:35 | HHI.FF ---
Face to Face Verification Diagnosis: (1) Myasthenia gravis with exacerbation (2) Anxiety and depression (3) Chronic low back pain Physical Therapy Order: Evaluate and Treat Occupational Therapy Order: Evaluate and Treat Home Health Nursing Order: Medical education I have seen patient Brionna Rodríguez on 11/17/16. My clinical findings support the need for the requested home health care services because: Ltd mobility - disease progression Deconditioned w/ increased weakness I certify that my clinical findings support that this patient is homebound because: Unsteady gait/balance Unsafe to leave home unassisted Miguel Ángel Solomon MD Nov 17, 2016 12:35
--- NOTE | 2016-11-17 12:40 | HHI.PR ---
Subjective Remarks Patient emotional, complain of severe pain in her lower back attributed it to the fall yesterday, she asked why did we not do MRI, I had to nurses with me in the room, we assessed her gait, she denied any out of order urine or fecal incontinence, or weakness, she is emotional again crying that she is not pain seeker but she is in severe pain. She stated she understands that narcotics are not recommended due to her myasthenia gravis case, but she think she is due for exception. She also thing that she needs more doses of IVIG, she told me she discussed that with the neurologist and he did tell her more is not indicated at this point, I informed her that physical therapy evaluation recommended either rehabilitation or home with PT OT, she chose home with PT Objective Vitals Vital Signs Date Time Temp Pulse Resp B/P Pulse Ox O2 Delivery O2 Flow Rate FiO2 11/17/16 12:00 96.7 87 18 95/60 98 11/17/16 08:00 97.0 70 18 99/50 98 11/17/16 07:36 73 11/17/16 07:36 Room Air 11/17/16 06:27 97.1 65 17 112/69 98 11/17/16 02:27 96.7 61 16 104/59 95 11/16/16 22:27 96.5 95 17 101/64 97 11/16/16 22:27 96.5 95 17 101/64 97 11/16/16 21:00 62 11/16/16 19:46 96.4 65 16 105/64 98 11/16/16 18:27 96.6 76 16 95/75 100 11/16/16 18:27 18 11/16/16 17:15 95.9 63 16 108/80 100 11/16/16 17:00 96.0 67 16 120/66 100 11/16/16 16:45 95.7 63 16 110/68 100 11/16/16 16:00 96.5 62 16 103/57 96 11/16/16 14:27 96.6 71 16 110/66 99 11/16/16 13:43 18 I/O 11/16/16 11/16/16 11/16/16 11/17/16 11/17/16 11/17/16 07:00 15:00 23:00 07:00 15:00 23:00 Intake Total 720 ml 960 ml 696 ml 480 ml Balance 720 ml 960 ml 696 ml 480 ml Intake Oral 720 ml 960 ml 480 ml 480 ml IV Total 216 ml # Voids 3 4 2 2 # Bowel Movements 0 0 0 5 Result Diagram: 11/15/16 0320 11/15/16 0320 Objective Remarks - GENERAL: This is a well-nourished, well-developed patient, in no apparent distress. SKIN: No rashes, warm and dry HEAD: Atraumatic. Normocephalic. EYES: Mild ptosis on the right eye ENT: Nose without bleeding, or drainage, Airway patent. NECK: Trachea midline. Supple CARDIOVASCULAR: Regular rate and rhythm without murmurs, gallops, or rubs. RESPIRATORY: Fair air entry bilaterally. No wheezes, rales, or rhonchi. GASTROINTESTINAL: Abdomen soft, non-tender, nondistended. Positive bowel sounds MUSCULOSKELETAL: Extremities without clubbing, cyanosis, or edema. Pedal pulses appreciated NEUROLOGICAL: Awake and alert. Moves all extremity. Normal speech.no focal neurological deficit GAIT: Slow with walker A/P Assessment and Plan 5 years old female with history of myasthenia gravis and thymectomy came with Myasthenia gravis flareup: Appreciate Neurology consultation,, recommended continuing IVIG, continue prednisone and Mestinon , close monitoring for any respiratory failure vital capacity twice a day Anxiety and depression: Resume Elavil, Celexa from home meds rec Chronic back pain: Avoid narcotics at this point, questionable history of drug- seeking behavior in the past DVT prophylaxis with heparin and SCD 11/16/16: Subjective story of falling down in the bathroom, vague nonspecific, she requesting different pain medication I will give her 1 dose of morphine sulfate she agree without, awaiting further recommendation from neurology 11/17/16:Patient emotional, complain of severe pain in her lower back attributed it to the fall yesterday, she asked why did we not do MRI, I had to nurses with me in the room, we assessed her gait, she denied any out of order urine or fecal incontinence, or weakness, she is emotional again crying that she is not pain seeker but she is in severe pain. She stated she understands that narcotics are not recommended due to her myasthenia gravis case, but she think she is due for exception. She also thing that she needs more doses of IVIG, she told me she discussed that with the neurologist and he did tell her more is not indicated at this point, I informed her that physical therapy evaluation recommended either rehabilitation or home with PT OT, she chose home with PT But we will do pelvic x-ray to rule out any fracture per patient request Time spent 40 minutes Addendum: Received a call from the nurse patient does not want to do pelvic x- ray anymore, and she wants to go home Miguel Ángel Solomon MD Nov 17, 2016 12:40
--- NOTE | 2016-11-17 12:41 | HHI.DS ---
Discharge Summary Admission Date Nov 14, 2016 at 13:10 Discharge Date: Nov 17, 2016 Admitting Diagnosis Myastenia Gravis Exacerbation (1) Myasthenia exacerbation ICD Code: G70.01 (2) Anxiety and depression ICD Code: F41.9 (3) Chronic low back pain ICD Code: M54.5 (4) Depression ICD Code: F32.9 Procedures None except IVIG infusion Brief History - From Admission 41 years old female with a history of myasthenia gravis diagnosed in 2011 with multiple several relapses and admission to the hospital patient follow up with Dr. De La Fuente and she start following up with another neurology who doesn't have privileges at [facility], the neurologist was contacted from ED stating that patient stop getting her CellCept and IVIG due to lack of insurance coverage. Patient having problem with severe worsening weakness, neurologist recommended admission to the hospital and consulting the house neurology. When I came to see the patient she was extremely subtle and after getting ketorolac and Benadryl, she was unable to give any history. She was arousable to tactile stimuli but she goes right back to sleep. I discussed with the nurse, patient started on IVIG dose, patient had thymectomy in 2012, most of the history was obtained from EMR previous record CBC/BMP: 11/15/16 0320 11/15/16 0320 Significant Findings Laboratory Tests Test 11/15/16 03:20 Red Blood Count 3.83 MIL/MM3 (4.00-5.30) Hemoglobin 10.9 GM/DL (11.6-15.3) Hematocrit 32.7 % (35.0-46.0) Red Cell Distribution Width 17.9 % (11.6-17.2) Chloride Level 109 MEQ/L (98-107) Anion Gap 3 MEQ/L (5-15) Blood Urea Nitrogen 5 MG/DL (7-18) Estimat Glomerular Filtration 81 ML/MIN (>89) Rate Calcium Level 8.3 MG/DL (8.5-10.1) PE at Discharge - GENERAL: This is a well-nourished, well-developed patient, in no apparent distress. SKIN: No rashes, warm and dry HEAD: Atraumatic. Normocephalic. EYES: Mild ptosis on the right eye ENT: Nose without bleeding, or drainage, Airway patent. NECK: Trachea midline. Supple CARDIOVASCULAR: Regular rate and rhythm without murmurs, gallops, or rubs. RESPIRATORY: Fair air entry bilaterally. No wheezes, rales, or rhonchi. GASTROINTESTINAL: Abdomen soft, non-tender, nondistended. Positive bowel sounds MUSCULOSKELETAL: Extremities without clubbing, cyanosis, or edema. Pedal pulses appreciated NEUROLOGICAL: Awake and alert. Moves all extremity. Normal speech.no focal neurological deficit GAIT: Slow with walker Hospital Course 5 years old female with history of myasthenia gravis and thymectomy came with Myasthenia gravis flareup: Appreciate Neurology consultation,, recommended continuing IVIG, continue prednisone and Mestinon , close monitoring for any respiratory failure vital capacity twice a day Anxiety and depression: Resume Elavil, Celexa from home meds rec Chronic back pain: Avoid narcotics at this point, questionable history of drug- seeking behavior in the past DVT prophylaxis with heparin and SCD 11/16/16: Subjective story of falling down in the bathroom, vague nonspecific, she requesting different pain medication I will give her 1 dose of morphine sulfate she agree without, awaiting further recommendation from neurology 11/17/16:Patient emotional, complain of severe pain in her lower back attributed it to the fall yesterday, she asked why did we not do MRI, I had to nurses with me in the room, we assessed her gait, she denied any out of order urine or fecal incontinence, or weakness, she is emotional again crying that she is not pain seeker but she is in severe pain. She stated she understands that narcotics are not recommended due to her myasthenia gravis case, but she think she is due for exception. She also thing that she needs more doses of IVIG, she told me she discussed that with the neurologist and he did tell her more is not indicated at this point, I informed her that physical therapy evaluation recommended either rehabilitation or home with PT OT, she chose home with PT Time spent 40 minutes [id number] encounter performed with the patient on discharge day, as well as physical exam, summary of hospitalization course and postdischarge plan has been D/W the patient. D/W nurse D/W case management rn. Discharge medications reviewed and printed and signed, post discharge follow up visit with PCP and other specialist as well as Brief hospital course and discharge summary has been placed. Pt Condition on Discharge: Fair Discharge Disposition: Disch w/ Home Health Serv Discharge Time: > 30 minutes Discharge Instructions DIET: Follow Instructions for: Heart Healthy Diet Activities you can perform: See Additionl Instruction Other Activity Instructions: Per home PT or condition Continued Medications: Alprazolam (Xanax) 1 Mg Tab 1 MG PO QID ANXIETY Ref 0 TAB Amitriptyline (Amitriptyline) 25 Mg Tab 25 MG PO HS TAB Citalopram (Citalopram) 40 Mg Tab 40 MG PO DAILY Control Depression #30 Ref 0 TAB Prednisone (Prednisone) 20 Mg Tab 20 MG PO DAILY Ref 0 TAB Pyridostigmine (Mestinon) 60 Mg Tab 120 MG PO TID Manage Myastenia Gravis #360 Ref 0 TAB Sumatriptan (Imitrex) 50 Mg Tab 50 MG PO DAILY If a satisfactory response has not been obtained at 2 hours, a second dose may be administered PRN HEADACHE Ref 0 TAB Tramadol (Tramadol) 50 Mg Tab 50 MG PO Q4H PRN PAIN Ref 0 TAB Miguel Ángel Solomon MD Nov 17, 2016 12:41
== END 2016-11-17 15:27 | disposition home health service (06) | DRG 57 ==
LOC: NEPC 10:54 → OBSVTOIN 13:10 → INTOOBSV 13:10 → NEDA 13:10 → N06A 15:58
PROVIDERS: ADMIT Hospitalist; ATTEND Hospitalist
PROC: 30233S1 Transfusion of Nonautologous Globulin into Peripheral Vein, Percutaneous Approach (ICD-10-PCS; principal; 2016-11-14)
DX: G70.01 Myasthenia gravis with (acute) exacerbation (principal); F32.9 Major depressive disorder, single episode, unspecified; D64.9 Anemia, unspecified; G89.29 Other chronic pain; M54.5 Low back pain; F41.9 Anxiety disorder, unspecified; F17.210 Nicotine dependence, cigarettes, uncomplicated; W19.XXXA Unspecified fall, initial encounter; Y92.231 Patient bathroom in hospital as the place of occurrence of the external cause
CPT/HCPCS: 71010; 80048; 80053; 82550; 82948; 84484; 84703; 85025; 85610; 85730; 93005; 94150; 96365; G8987-GP; G8988-GP; J1459; J1642; J1644; J1885; J2270; J2405; J7040; J7060; J7512

== ENCOUNTER 2016-12-15 13:28 | Inpatient (IN) | payer MEDICARE, MEDICAID ==
[~2016-12-15 13:28] MED LIST changes: -MYCO500 PO; -PRED10 PO; +PRED20 PO
[2016-12-15 13:32] VITALS: BP 110/70; PULSE 97; RESP 12; TEMP 98; O2SAT 100
[2016-12-15 15:58] VITALS: O2SAT 98
[2016-12-15] MEDS ORDERED: SODIUM CHLORIDE 0.9% FLUSH 5 ML FLUSH IVF PRN (16:00)
--- NOTE | 2016-12-15 16:20 | PD ---
HPI Chief Complaint: Neuro Symptoms/ Deficits Time Seen by Provider: 15:47 Travel History International Travel<30 days: No Contact w/Intl Traveler<30days: No Traveled to known affect area: No History of Present Illness HPI 41-year-old female with history of myasthenia gravis, presents to emergency room with complaints of myasthenia gravis exacerbation. Patient has had multiple admissions for myasthenia gravis exacerbation. She states her last admission was in November. Patient reports that her neurologist is in [place] but she has seen Dr. De La Fuente in the hospital before. Patient reports that increased right eye proptosis as well as generalized weakness over the past 3 days. Reports that she has been compliant with all her medications as prescribed. She denies other concurrent complaints. Quality is weak. Severity is all over. PFSH Past Medical History Anemia: Yes Arthritis: No Autoimmune Disease: Yes (MYASTHENA GRAVIS) Blood Disorders: No Anxiety: Yes Depression: Yes Heart Rhythm Problems: No Cancer: No Cardiovascular Problems: No High Cholesterol: No Chest Pain: No Congestive Heart Failure: No Cerebrovascular Accident: No Cystic Fibrosis: No Diabetes: No Diminished Hearing: No Endocrine: No Gastrointestinal Disorders: Yes Genitourinary: No Hepatitis: No Hiatal Hernia: No Hypertension: No Immune Disorder: Yes (MYASTHENIA GRAVIS) Implanted Vascular Access Dvce: Yes (left chest) Musculoskeletal: Yes Neurologic: Yes (MYASTHENIA GRAVIS - Jul, 2013) Psychiatric: Yes (DEPRESSION, ANXIETY) Reproductive: No Respiratory: No Immunizations Current: No Migraines: Yes Seizures: No Thyroid Disease: No ?: Not : 2 Para: 2 Dilation and Curettage (D&C): Yes Tubal Ligation: Yes Past Surgical History Abdominal Surgery: No Body Medical Devices: LEFT IMPLANTED PORT Cardiac Surgery: No Ear Surgery: No Endocrine Surgery: Yes ( ) Eye Surgery: No Genitourinary Surgery: No Gynecologic Surgery: Yes (tubal ligation 2014) Neurologic Surgery: No Oral Surgery: Yes (EXTRACTIONS) Thoracic Surgery: No Tonsillectomy: Yes Other Surgery: Yes (tubal ligation Dec 2014/ POWER PORT TO LEFT CHEST) Social History Alcohol Use: No Tobacco Use: Yes (< 1/2 PPD) Substance Use: No Allergies-Medications (Allergen,Severity, Reaction): Coded Allergies: Penicillin (Verified Allergy, Severe, Anaphylaxis, 12/15/16) Phenergan (Verified Adverse Reaction, Severe, NAUSEOUS, 12/15/16) Reported Meds & Prescriptions Reported Meds & Active Scripts Active Reported Valium (Diazepam) 10 Mg Tab 10 Mg PO HS Imuran (Azathioprine) 50 Mg Tab 50 Mg PO DAILY Hazardous agent: use appropriate precautions for handling and disposal. Prednisone 20 Mg Tab 20 Mg PO DAILY Tramadol (Tramadol HCl) 50 Mg Tab 50 Mg PO Q4H PRN Mestinon (Pyridostigmine [place]) 60 Mg Tab 120 Mg PO TIDAC Imitrex (Sumatriptan Succinate) 50 Mg Tab 50 Mg PO DAILY PRN If a satisfactory response has not been obtained at 2 hours, a second dose may be administered Citalopram (Citalopram Hydrobromide) 40 Mg Tab 40 Mg PO DAILY Amitriptyline (Amitriptyline HCl) 25 Mg Tab 25 Mg PO HS Xanax (Alprazolam) 1 Mg Tab 1 Mg PO QID Review of Systems Except as stated in HPI: all other systems reviewed are Neg Physical Exam Narrative GENERAL: Well-nourished, well-developed patient. SKIN: Warm and dry. HEAD: Normocephalic and atraumatic. EYES: No injection or drainage. Mild right eye proptosis ENT: No nasal drainage noted. NECK: Supple, trachea midline. CARDIOVASCULAR: Regular rate and rhythm RESPIRATORY: Breath sounds equal bilaterally. No accessory muscle use. NEUROLOGICAL: Awake and alert. Patient able to lift both legs off the bed and keeps him up for 3 seconds on their own. Equal grasp bilaterally. Normal speech. Data Data Last Documented VS Vital Signs Date Time Temp Pulse Resp B/P Pulse Ox O2 Delivery O2 Flow Rate FiO2 12/15/16 15:58 98 Room Air 12/15/16 15:55 69 18 12/15/16 13:32 98.0 110/70 Orders Complete Blood Count With Diff (12/15/16 15:52) Comprehensive Metabolic Panel (12/15/16 15:52) Prothrombin Time / Inr (Pt) (12/15/16 15:52) Act Partial Throm Time (Ptt) (12/15/16 15:52) Urinalysis - C+S If Indicated (12/15/16 15:52) Iv Access Insert/Monitor (12/15/16 15:52) Ecg Monitoring (12/15/16 15:52) Oximetry (12/15/16 15:52) Sodium Chloride 0.9% Flush (Ns Flush) (12/15/16 16:00) Electrocardiogram (12/15/16 15:52) Chest, Single Ap (12/15/16 15:52) Blood Glucose (12/15/16 17:30) Admit Order (Ed Use Only) (12/15/16 19:15) Labs Laboratory Tests Test 12/15/16 16:20 White Blood Count 9.0 TH/MM3 Red Blood Count 3.95 MIL/MM3 Hemoglobin 11.2 GM/DL Hematocrit 33.6 % Mean Corpuscular Volume 85.1 FL Mean Corpuscular Hemoglobin 28.2 PG Mean Corpuscular Hemoglobin 33.2 % Concent Red Cell Distribution Width 17.9 % Platelet Count 364 TH/MM3 Mean Platelet Volume 8.1 FL Neutrophils (%) (Auto) 58.0 % Lymphocytes (%) (Auto) 30.6 % Monocytes (%) (Auto) 6.3 % Eosinophils (%) (Auto) 4.0 % Basophils (%) (Auto) 1.1 % Neutrophils # (Auto) 5.2 TH/MM3 Lymphocytes # (Auto) 2.8 TH/MM3 Monocytes # (Auto) 0.6 TH/MM3 Eosinophils # (Auto) 0.4 TH/MM3 Basophils # (Auto) 0.1 TH/MM3 CBC Comment DIFF FINAL Differential Comment Prothrombin Time 10.6 SEC Prothromb Time International 1.0 RATIO Ratio Activated Partial 32.4 SEC Thromboplast Time Sodium Level 138 MEQ/L Potassium Level 3.4 MEQ/L Chloride Level 105 MEQ/L Carbon Dioxide Level 31.6 MEQ/L Anion Gap 1 MEQ/L Blood Urea Nitrogen 4 MG/DL Creatinine 0.73 MG/DL Estimat Glomerular Filtration 88 ML/MIN Rate Random Glucose 61 MG/DL Calcium Level 8.5 MG/DL Total Bilirubin 0.3 MG/DL Aspartate Amino Transf 11 U/L (AST/SGOT) Alanine Aminotransferase 13 U/L (ALT/SGPT) Alkaline Phosphatase 57 U/L Total Protein 7.0 GM/DL Albumin 3.5 GM/DL [facility] Medical Decision Making Medical Screen Exam Complete: Yes Emergency Medical Condition: Yes Medical Record Reviewed: Yes (past history confirmed) Interpretation(s) EKG is normal sinus rhythm without STEMI criteria vital capacity is about 1600 per RT CBC & BMP Diagram 12/15/16 16:20 Last 24 hours Impressions Chest X-Ray 12/15/16 1552 Signed Impressions: Service Date/Time: Thursday, December 15, 2016 16:24 - CONCLUSION: No acute disease. Reginald Fisher MD Differential Diagnosis Anemia, renal failure, myasthenia crisis Narrative Course Will check blood work, urinalysis, chest x-ray, vital capacity and discuss with her neurologist will place in observation Physician Communication Physician Communication dr li states to place in observation, hold ivig, will follow dr cuba agrees to observation Diagnosis Primary Impression: Myasthenia gravis Admitting Information Admitting Physician Requests: Observation Leonora Herr MD Dec 15, 2016 16:20
[2016-12-15 16:29] LABS: AUTOMATED NEUTROPHIL # 5.2 TH/MM3 (1.8-7.7); BASOPHIL # 0.1 TH/MM3 (0-0.2); BASOPHIL % 1.1 % (0.0-2.0); EOSINOPHIL # 0.4 TH/MM3 (0-0.4); HEMATOCRIT 33.6 % (35.0-46.0); HEMO FLAGS DIFF FINAL; LYMPH % 30.6 % (9.0-44.0); LYMPHOCYTE # 2.8 TH/MM3 (1.0-4.8); MEAN CELL VOLUME 85.1 FL (80.0-100.0); MEAN CORPUSCULAR HEMOGLOBIN 28.2 PG (27.0-34.0); MEAN CORPUSCULAR HGB CONC 33.2 % (32.0-36.0); MONO % 6.3 % (0.0-8.0); PLATELET COUNT 364 TH/MM3 (150-450); RED BLOOD COUNT 3.95 MIL/MM3 (4.00-5.30); RED CELL DISTRIBUTION WIDTH 17.9 % (11.6-17.2)
--- NOTE | 2016-12-15 16:36 | RADRPT ---
EXAM DATE/TIME: 12/15/2016 16:24 [facility] COMPARISON: CHEST SINGLE AP, November 14, 2016, 11:38. INDICATIONS : Myasthenia gravis flare up, shortness of breath. MEDICAL HISTORY : Smoker. SURGICAL HISTORY : None. ENCOUNTER: Initial ACUITY: 2 days PAIN SCORE: 0/10 LOCATION: Bilateral chest FINDINGS: A single view of the chest demonstrates the lungs to be symmetrically aerated without evidence of mas s, infiltrate or effusion. The cardiomediastinal contours are unremarkable. Left-sided portacatheter with tip in the SVC. Osseous structures are intact. CONCLUSION: No acute disease. Reginald Fisher MD on December 15, 2016 at 16:34 Board Certified Radiologist. This report was verified electronically.
[2016-12-15 16:41] LABS: APTT (PATIENT) 32.4 SEC (24.3-30.1); PROTHROMBIN TIME - PATIENT 10.6 SEC (9.8-11.6)
[2016-12-15 16:52] LABS: ALT (GPT) 13 U/L (10-53); ANION GAP 1 MEQ/L (5-15); AST (GOT) 11 U/L (15-37); BICARBONATE 31.6 MEQ/L (21.0-32.0); BLOOD UREA NITROGEN 4 MG/DL (7-18); CHLORIDE 105 MEQ/L (98-107); GLOMERULAR FILTRATION RATE 88 ML/MIN (>89); POTASSIUM 3.4 MEQ/L (3.5-5.1); SODIUM (NA) 138 MEQ/L (136-145)
[2016-12-15 16:55] LABS: ALKALINE PHOSPHATASE 57 U/L (45-117); TOTAL BILIRUBIN ADULT 0.3 MG/DL (0.2-1.0)
[2016-12-15] MEDS ORDERED: DIAZ10 PO (17:29)
[2016-12-15] MEDS ORDERED: IMUR50TA PO (17:29)
[2016-12-15] MEDS ORDERED: SODIUM CHLORIDE 0.9% FLUSH 5 ML FLUSH FLUSH PRN (20:00)
[2016-12-15] MEDS ORDERED: ALPRAZolam 1 MG TAB PO PRN (20:00)
[2016-12-15] MEDS ORDERED: NALOXONE HCL 0.4 MG/ML AMP IV PRN (20:00)
[2016-12-15] MEDS ORDERED: POTASSIUM CHLORIDE 25 MEQ EFFERVESCENT TAB PO ONE (20:00)
[2016-12-15 20:28] VITALS: BP 106/53; PULSE 56; RESP 18; O2SAT 98
[2016-12-15] MEDS: traMADol HCL 50 MG TAB PO PRN (20:31)
[2016-12-15] MEDS: AMITRIPTYLINE HCL 25 MG TAB PO SCH (20:34)
[2016-12-15] MEDS: SODIUM CHLORIDE 0.9% FLUSH 5 ML FLUSH FLUSH SCH (21:00)
[2016-12-15 22:06] VITALS: BP 110/58; PULSE 83; RESP 18; TEMP 97.5; O2SAT 99
--- NOTE | 2016-12-15 23:57 | HHI.HP ---
[facility] Service [place] [facility] Primary Care Physician Non-Staff Admission Diagnosis myasthenia crisis, weakness Diagnoses: (1) Myasthenia (2) Hypokalemia (3) Chronic pain (4) Anemia (5) Anxiety and depression Chief Complaint: myasthenia gravis exacerbation Travel History International Travel<30 Days: No Contact w/Intl Traveler <30 Da: No Traveled to Known Affected Are: No History of Present Illness Mrs. Rodríguez is a 41 year-old female with a history of myasthenia gravis who presented to the ER on 12/15/16 complaining of myasthenia gravis exacerbation. She follows with neurologist Dr. Banuelos in [place] but has seen Dr. De La Fuente in the past. The patient is seen in her room in the CDU. She states that she was walking her kids to the bus stop, felt weak, and fell to the ground. She denies any shortness of breath, chest pain, palpitations fever, nausea, vomiting, melena, hematochezia, dysuria, hematuria. She reports on and off diarrhea. She states she felt like this was going to come on because she'd been noticing that her hands were weak and she had poor vision in her eyes in the weeks prior to the episode. She said her until [place] on Wednesday night for training and she was left alone to care for her children. She states her oldest son who is age 11 helped and she does not know what she would've done without him. Her [id number] brought her to the hospital and is watching her children right now. The patient reports that she was receiving IVIG twice a month with recent increase to 3 times per month by her neurologist Dr. Banuelos about a month ago. She states that she has daily Imuran on, prednisone, and Mestinon. She states she is no longer taking CellCept. 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 Of note, the patient reported nearly this exact same story to me on June when I saw her for myasthenia gravis exacerbation including her fall while walking her children to the bus stop. Review of Systems Except as stated in HPI: all other systems reviewed are Neg Past Family Social History Past Medical History Myasthenia gravis diagnosed in 2011 Anxiety Depression Chronic Anemia . Past Surgical History Tonsillectomy Thymectomy 2013 Port placement: left chest Chronic low back pain/chronic pain syndrome D&C Reported Medications Reported Meds & Active Scripts Active Reported Valium (Diazepam) 10 Mg Tab 10 Mg PO HS Imuran (Azathioprine) 50 Mg Tab 50 Mg PO DAILY Hazardous agent: use appropriate precautions for handling and disposal. Prednisone 20 Mg Tab 20 Mg PO DAILY Tramadol (Tramadol HCl) 50 Mg Tab 50 Mg PO Q4H PRN Mestinon (Pyridostigmine [place]) 60 Mg Tab 120 Mg PO TIDAC Imitrex (Sumatriptan Succinate) 50 Mg Tab 50 Mg PO DAILY PRN If a satisfactory response has not been obtained at 2 hours, a second dose may be administered Citalopram (Citalopram Hydrobromide) 40 Mg Tab 40 Mg PO DAILY Amitriptyline (Amitriptyline HCl) 25 Mg Tab 25 Mg PO HS Xanax (Alprazolam) 1 Mg Tab 1 Mg PO QID . Allergies: Coded Allergies: Penicillin (Verified Allergy, Severe, Anaphylaxis, 12/15/16) Phenergan (Verified Adverse Reaction, Severe, NAUSEOUS, 12/15/16) Active Ordered Medications Current Medications IV Flush (NS Flush) 2 ml UNSCH PRN IVF FLUSH AFTER USING IV ACCESS; Start at 16:00; Stop 12/15/16 at 19:56; Status DC IV Flush (NS Flush) 2 ml UNSCH PRN FLUSH FLUSH AFTER USING IV ACCESS; Start 12/15/16 at 20:00 IV Flush (NS Flush) 2 ml BID FLUSH Last administered on 12/15/16 21:00; Start 12/15/16 at 21:00 Enoxaparin Sodium (Lovenox Inj) 40 mg Q24H SQ ; Start 12/16/16 at 09:00 Naloxone HCl (Narcan Inj) 0.4 mg UNSCH PRN IV SEE LABEL COMMENTS; Start at 20:00 Alprazolam (Xanax) 1 mg QID PRN PO severe anxiety Last administered on 22:08; Start 12/15/16 at 20:00; Stop 12/16/16 at 00:19; Status DC Amitriptyline HCl (Elavil) 25 mg HS PO Last administered on 12/15/16 20:34; Start 12/15/16 at 21:00 Citalopram Hydrobromide (CeleXA) 40 mg DAILY PO ; Start 12/16/16 at 09:00 Tramadol HCl (Ultram) 50 mg Q4H PRN PO PAIN Last administered on 12/15/16 20:31 ; Start 12/15/16 at 20:00 Potassium Bicarb/ Potassium Chloride (K-Lyte Cl Eff) 50 meq ONCE ONCE PO Last administered on 12/15/16 20:31; Start 12/15/16 at 20:00; Stop 12/15/16 at 20: 01; Status DC Alprazolam (Xanax) 1 mg BID PRN PO severe anxiety; Start 12/16/16 at 09:00 . Family History Father from pancreatic CA Mother with thyroid problems . Social History Tobacco: smokes < 1PPD Alcohol: denies Illicit Drugs: denies . Physical Exam Vital Signs Vital Signs Date Time Temp Pulse Resp B/P Pulse Ox O2 Delivery O2 Flow Rate FiO2 12/15/16 22:06 97.5 83 18 110/58 99 12/15/16 21:56 16 12/15/16 20:28 56 18 106/53 98 Room Air 12/15/16 15:58 98 Room Air 12/15/16 15:55 69 18 96 Room Air 12/15/16 13:32 98.0 97 12 110/70 100 Physical Exam GENERAL: This is a thin, chronically-ill appearing and somewhat drowsy patient, in no apparent distress. SKIN: No rashes, ecchymoses or lesions. Cool and dry. HEAD: Atraumatic. Normocephalic. EYES: No scleral icterus. No injection or drainage. ENT: Nose without bleeding, purulent drainage. NECK: Trachea midline. No JVD or lymphadenopathy. CARDIOVASCULAR: Regular rate and rhythm without murmurs, gallops, or rubs. RESPIRATORY: Clear to auscultation. Breath sounds equal bilaterally. No wheezes , rales, or rhonchi. GASTROINTESTINAL: Abdomen soft, non-tender, nondistended. No guarding. MUSCULOSKELETAL: Extremities without clubbing, cyanosis, or edema. No calf tenderness. NEUROLOGICAL: Awakened for visit; drowsy. Motor and sensory grossly within normal limits. Normal speech. . Laboratory Laboratory Tests Test 12/15/16 16:20 White Blood Count 9.0 Red Blood Count 3.95 Hemoglobin 11.2 Hematocrit 33.6 Mean Corpuscular Volume 85.1 Mean Corpuscular Hemoglobin 28.2 Mean Corpuscular Hemoglobin 33.2 Concent Red Cell Distribution Width 17.9 Platelet Count 364 Mean Platelet Volume 8.1 Neutrophils (%) (Auto) 58.0 Lymphocytes (%) (Auto) 30.6 Monocytes (%) (Auto) 6.3 Eosinophils (%) (Auto) 4.0 Basophils (%) (Auto) 1.1 Neutrophils # (Auto) 5.2 Lymphocytes # (Auto) 2.8 Monocytes # (Auto) 0.6 Eosinophils # (Auto) 0.4 Basophils # (Auto) 0.1 CBC Comment DIFF FINAL Differential Comment Prothrombin Time 10.6 Prothromb Time International 1.0 Ratio Activated Partial 32.4 Thromboplast Time Sodium Level 138 Potassium Level 3.4 Chloride Level 105 Carbon Dioxide Level 31.6 Anion Gap 1 Blood Urea Nitrogen 4 Creatinine 0.73 Estimat Glomerular Filtration 88 Rate Random Glucose 61 Calcium Level 8.5 Total Bilirubin 0.3 Aspartate Amino Transf 11 (AST/SGOT) Alanine Aminotransferase 13 (ALT/SGPT) Alkaline Phosphatase 57 Total Protein 7.0 Albumin 3.5 Result Diagram: 12/15/16 1620 12/15/16 1620 Imaging Last Impressions Chest X-Ray 12/15/16 1552 Signed Impressions: Service Date/Time: Thursday, December 15, 2016 16:24 - CONCLUSION: No acute disease. Reginald Fisher MD . Assessment and Plan Problem List: (1) Myasthenia ICD Code: G70.00 Status: Chronic (2) Hypokalemia ICD Code: E87.6 Status: Acute (3) Chronic pain ICD Code: G89.29 Status: Chronic (4) Anemia ICD Code: D64.9 Status: Chronic (5) Anxiety and depression ICD Code: F41.9 Status: Chronic Assessment and Plan Mrs. Rodríguez is a 41 year-old female with a history of myasthenia gravis who presented to the ER on 12/15/16 complaining of myasthenia gravis exacerbation. She follows with neurologist Dr. Banuelos in [place] but has seen Dr. De La Fuente in the past. Myasthenia Gravis - Neurology was consult in ER- Dr. Bowman spoke with ER physician - Hold off on IVIG now per Dr. Brower recommendation - Consult physical therapy - Neurochecks and vital signs every 4 hours Mild hypokalemia - Admission potassium 3.4 - Oral potassium replacement administered - Recheck BMP in a.m. and follow results - Replace potassium as indicated Chronic low back pain/chronic pain syndrome - Possible drug seeking behavior - Restart home tramadol - advise caution with narcotics Anemia, chronic - likely secondary to chronic illness - Hemoglobin 11.2 on admission, stable from prior admissions - Recheck CBC in a.m. and follow results Anxiety/Depression - Restart home Xanax, Elavil, and Celexa DVT prophylaxis - Lovenox 40 mg subcutaneous every 24 hours Written by Vielka Rivera, acting as scribe for Dr. Ortiz on 12/15/16 at 23:57. .All or portions of this note were transcribed by scribe [Vielka Rivera]. I, Dr. Joey Ortiz personally performed the history, physical exam, and medical decision making; and confirmed the accuracy of the information in the transcribed note. Authenticated by Dr. Joey Ortiz on 12/15/16 at 2357 Discussed Condition With ER physician, RN, and patient . Vielka Rivera Dec 15, 2016 23:57 Joey Ortiz MD Dec 16, 2016 06:53
[2016-12-16 05:59] VITALS: BP 98/54; PULSE 85; RESP 18; TEMP 99.4; O2SAT 97
[2016-12-16] MEDS ORDERED: MAGNESIUM HYDROXIDE SUSP 30 ML CUP PO PRN (06:15)
[2016-12-16] MEDS ORDERED: CALCIUM CARBONATE 500 MG CHEWABLE TAB CHEW PRN (06:15)
[2016-12-16] MEDS ORDERED: SUMAtriptan SUCCINATE 50 MG TAB PO PRN (06:15)
[2016-12-16] MEDS ORDERED: ALUMINUM/MAGNESIUM/SIMETH 30 ML CUP PO PRN (06:15)
[2016-12-16] MEDS ORDERED: ACETAMINOPHEN 325 MG TAB PO PRN (06:15)
[2016-12-16] MEDS ORDERED: DOCUSATE SODIUM 50 MG/SENNA 8.6 MG TAB PO PRN (06:15)
[2016-12-16 06:23] LABS: AUTOMATED NEUTROPHIL # 8.2 TH/MM3 (1.8-7.7); BASOPHIL # 0.1 TH/MM3 (0-0.2); BASOPHIL % 0.8 % (0.0-2.0); EOSINOPHIL # 0.6 TH/MM3 (0-0.4); EOSINOPHIL % 4.9 % (0.0-4.0); HEMATOCRIT 34.1 % (35.0-46.0); HEMO FLAGS DIFF FINAL; LYMPH % 22.9 % (9.0-44.0); LYMPHOCYTE # 2.9 TH/MM3 (1.0-4.8); MEAN CELL VOLUME 85.8 FL (80.0-100.0); MEAN CORPUSCULAR HEMOGLOBIN 28.2 PG (27.0-34.0); MEAN CORPUSCULAR HGB CONC 32.8 % (32.0-36.0); MONO % 5.6 % (0.0-8.0); NEUT % 65.8 % (16.0-70.0); PLATELET COUNT 368 TH/MM3 (150-450); RED BLOOD COUNT 3.97 MIL/MM3 (4.00-5.30); RED CELL DISTRIBUTION WIDTH 17.7 % (11.6-17.2); WHITE BLOOD COUNT 12.5 TH/MM3 (4.0-11.0)
[2016-12-16 06:47] LABS: BICARBONATE 31.9 MEQ/L (21.0-32.0); POTASSIUM 3.7 MEQ/L (3.5-5.1)
[2016-12-16 07:55] VITALS: BP 88/51; PULSE 77; RESP 18; TEMP 97.7; O2SAT 97
--- NOTE | 2016-12-16 08:36 | HHI.PR ---
Subjective Remarks Follow up for weakness. The patient reports she is having an exacerbation of her myasthenia gravis. She states she knows she is having an exacerbation because her vision gets blurry and feels generally weak. The patient denies any dysphagia or shortness of breath. Denies any other medical complaints. Objective Vitals Vital Signs Date Time Temp Pulse Resp B/P Pulse Ox O2 Delivery O2 Flow Rate FiO2 12/16/16 07:55 97.7 77 18 88/51 97 12/16/16 05:59 99.4 85 18 98/54 97 12/15/16 22:06 97.5 83 18 110/58 99 12/15/16 21:56 16 12/15/16 20:28 56 18 106/53 98 Room Air 12/15/16 15:58 98 Room Air 12/15/16 15:55 69 18 96 Room Air 12/15/16 13:32 98.0 97 12 110/70 100 Result Diagram: 12/16/16 0605 12/16/16 0605 Imaging Last Impressions Chest X-Ray 12/15/16 1552 Signed Impressions: Service Date/Time: Thursday, December 15, 2016 16:24 - CONCLUSION: No acute disease. Reginald Fisher MD Objective Remarks GENERAL: Thin middle aged female patient in [facility]. SKIN: Warm and dry. No rash. HEENT: Normocephalic. Atraumatic.Pupils equal and round. No scleral icterus. No injection or drainage. Mucous membranes pink and moist. NECK: Supple. Trachea midline. CARDIOVASCULAR: Regular rate and rhythm. S1, S2 noted. No murmur appreciated. RESPIRATORY: No accessory muscle use. Clear to auscultation. Breath sounds equal bilaterally. GASTROINTESTINAL: Abdomen soft, non-tender, nondistended. Normoactive bowel sounds x4. MUSCULOSKELETAL: No obvious deformities. Extremities without clubbing, cyanosis , or edema. NEUROLOGICAL: Awake and alert. No obvious cranial nerve deficits. Motor grossly within normal limits. 5/5 strength b/l upper and lower extremities. Normal speech. Of note, patient able to keep arms elevated throughout entire exam. PSYCHIATRIC: Appropriate mood and affect; insight and judgment normal. Medications and IVs Current Medications Medications (Trade) Dose Ordered Sig/Gómez Route Start Time Stop Time Status Last Admin (NS Flush) 2 ml UNSCH PRN FLUSH 12/15/16 20:00 (NS Flush) 2 ml BID FLUSH 12/15/16 21:00 12/15/16 21:00 (Lovenox Inj) 40 mg Q24H SQ 12/16/16 09:00 (Narcan Inj) 0.4 mg UNSCH PRN IV 12/15/16 20:00 (Elavil) 25 mg HS PO 12/15/16 21:00 12/15/16 20:34 (CeleXA) 40 mg DAILY PO 12/16/16 09:00 (Ultram) 50 mg Q4H PRN PO 12/15/16 20:00 12/15/16 20:31 (Xanax) 1 mg BID PRN PO 12/16/16 09:00 (Tylenol) 650 mg Q4H PRN PO 12/16/16 06:15 (Zofran Inj) 4 mg Q6H PRN IV 12/16/16 06:15 (Bonita-Colace) 1 tab BID PRN PO 12/16/16 06:15 (Milk Of Magnesia Liq) 30 ml DAILY PRN PO 12/16/16 06:15 (Mag-Al Plus Susp Liq) 30 ml Q6H PRN PO 12/16/16 06:15 (Tums Chew) 1,000 mg TID PRN CHEW 12/16/16 06:15 (Imuran) 50 mg DAILY PO 12/16/16 09:00 (Deltasone) 20 mg DAILY PO 12/16/16 09:00 (Mestinon) 120 mg TIDAC PO 12/16/16 08:00 (Imitrex) 50 mg DAILY PRN PO 12/16/16 06:15 Urinary Catheter: No A/P Problem List: (1) Myasthenia ICD Code: G70.00 Status: Chronic (2) Hypokalemia ICD Code: E87.6 Status: Acute (3) Chronic pain ICD Code: G89.29 Status: Chronic (4) Anemia ICD Code: D64.9 Status: Chronic (5) Anxiety and depression ICD Code: F41.9 Status: Chronic Assessment and Plan 41 year-old female with a history of myasthenia gravis who presented to the ER on 12/15/16 complaining of myasthenia gravis exacerbation. She follows with neurologist Dr. Banuelos in [place] but has seen Dr. De La Fuente in the past. Myasthenia Gravis with possible exacerbation - Neurology consulted, Dr. Bowman spoke with ER physician - Hold off on IVIG now per Dr. Brower recommendation - Consult physical therapy - Neurochecks and vital signs as well as vital capacity monitoring by respiratory therapist Mild hypokalemia: potassium 3.4 - Oral potassium replacement administered - Repeat K 3.7, resolved Chronic low back pain/chronic pain syndrome - Suspect drug seeking behavior - Restart home tramadol - advise caution with narcotics Anemia, chronic - likely secondary to chronic illness - Hemoglobin 11.2 on admission, stable from prior admissions - Repeat CBC stable at 11.2 Anxiety/Depression - Restarted home Xanax, Elavil, and Celexa Tobacco Use - counseled on cessation - Nicotine patch DVT prophylaxis - Lovenox Written by Romy Montilla, acting as scribe for Dr. Alejo on 12/16/16 at 08:35. All or portions of this note were transcribed by scribe []. I, Dr. True Alejo personally performed the history, physical exam, and medical decision making; and confirmed the accuracy of the information in the transcribed note. Authenticated by Dr. True Alejo on 12/16/16 at 16:26. Discharge Planning Discharge when cleared by neurology. Romy Montilla PA-C Dec 16, 2016 08:36 True Alejo MD Dec 16, 2016 16:26
[2016-12-16] MEDS ORDERED: azaTHIOprine 50 MG TAB PO SCH (09:00)
[2016-12-16] MEDS: ENOXAPARIN SODIUM 40 MG/0.4 ML SYRINGE SQ SCH ×2 (09:00→09:53)
[2016-12-16] MEDS: traMADol HCL 50 MG TAB PO PRN ×3 (09:52→20:32)
[2016-12-16] MEDS: predniSONE 20 MG TAB PO SCH (09:53)
[2016-12-16] MEDS: CITALOPRAM HYDROBROMIDE 40 MG TAB PO SCH (09:53)
[2016-12-16] MEDS: PYRIDOSTIGMINE BROMIDE 60 MG TAB PO SCH ×3 (09:53→16:54)
[2016-12-16] MEDS: SODIUM CHLORIDE 0.9% FLUSH 5 ML FLUSH FLUSH SCH ×2 (09:54→20:32)
[2016-12-16] MEDS: ALPRAZolam 1 MG TAB PO PRN ×2 (10:03→20:32)
[2016-12-16] MEDS: NICOTINE 21 MG/24 HR PATCH TD SCH (10:50)
[2016-12-16 11:39] VITALS: BP 94/52; PULSE 94; RESP 20; TEMP 98.1; O2SAT 96
--- NOTE | 2016-12-16 13:05 | MB ---
cc: TAMMY NICHOLS M.D. DATE OF CONSULTATION: 12/16/2016 DATE OF : 1975 REASON FOR CONSULTATION Myasthenia gravis. HISTORY OF PRESENT ILLNESS This is a 41-year-old woman with a history of myasthenia gravis for about four or five years. She sees Dr. Banuelos in [place]. Has seen Dr. De La Fuente in the past who apparently diagnosed her. Came in yesterday for having more weakness and trouble with balance and walking. She states that she is under a lot of stress at home, actually has a child that was sick and she had trouble caring for the child. Kept her 11-year-old home from school to assist. Started having more issues with weakness. No shortness of breath. Some visual diplopia. Trouble swallowing. No headaches, chest pain, shortness of breath, nausea, vomiting or diarrhea. She used to have diarrhea when she was on CellCept but now that she is on Imuran that is resolved. She states that she gets IVIG for three days every month. She states that she is under a lot of stress at home due to a personal relationship with I believe her . She has not been sleeping well, has been having nightmares, feels depressed. She is still taking her Imuran, prednisone and Mestinon. She states her last IVIG infusion was on November 17. PAST MEDICAL HISTORY 1. Myasthenia. 2. Anxiety. 3. Depression. 4. Chronic anemia. PAST SURGICAL HISTORY 1. Thymectomy in 2012. 2. Tonsillectomy. 3. Port placement left chest. 4. Chronic pain. 5. D&C. MEDICATIONS Home medicines are: 1. Diazepam. 2. Imuran 50 mg daily. 3. Prednisone 20 mg a day. 4. Tramadol 50 mg. She says she only takes it twice a day, that is how it has been written. 5. Mestinon 60 mg, two tablets three times a day. 6. Imitrex p.r.n. 7. Citalopram. 8. Amitriptyline. 9. Xanax. ALLERGIES 1. PENICILLIN. 2. PHENERGAN. PHYSICAL EXAMINATION VITAL SIGNS: Temperature 98.1, pulse 94, respiratory rate 20, blood pressure 94/52. NECK: Supple. HEART: Regular. NEUROLOGIC: She is awake, alert and oriented. Normal speech. No ptosis. Pupils reactive. Extraocular muscles intact. She states she has diplopia on confrontation in all movements. Face symmetrical. Tongue is midline. She has a little difficulty showing me her teeth. Some minimal weakness in the neck muscles. She is not short of breath. Motor-willson there is some give-way weakness in the upper and lower extremities. Reflexes are brisk. Mild [id number]. No past-pointing. Toes downgoing. Gait is withheld at this time. LABORATORY DATA White count 12.5, hemoglobin 11.2, platelets 368,000. Coag panel: PTT 32.4. Chemistries: GFR 78, glucose 118, TSH 2.850. IMAGING DATA Chest x-ray: No acute disease. IMPRESSION A 41-year-old woman with a history of myasthenia. It has been over a month since her last IVIG. She certainly may be feeling weaker from and not having her IVIG infusion and may have a mild exacerbation. RECOMMENDATIONS 1. Recommend restarting IVIG 0.4 gm/kg per day for three days. 2. Continue her Imuran but I would increase it to 75 mg at this point in time daily and then in two weeks she could go to 50 mg b.i.d. 3. Continue prednisone. 4. Continue Mestinon. 5. Have respiratory check her . 6. Continue tramadol q.6h. 7. I told her I will not be writing for narcotics. 8. If stable, discharge planning likely Wednesday morning. MD KATARZYNA Shaikh/PEDRO /12:33 PM /12:48 PM
[2016-12-16] MEDS ORDERED: EPINEPHRINE HCL (1:1000) 1 MG/ML AMP Reaction Med OTHER PRN (13:45)
[2016-12-16] MEDS ORDERED: DIPHENHYDRAMINE HCL 50 MG/ML VIAL Reaction Med IV PUSH PRN (13:45)
[2016-12-16] MEDS: DIPHENHYDRAMINE HCL 25 MG CAP Pre-med PO SCH (16:05)
[2016-12-16] MEDS: NS 500 ML Pre-hydration IV SCH (16:05)
[2016-12-16] MEDS: ACETAMINOPHEN 325 MG TAB Pre-med PO SCH (16:05)
[2016-12-16 16:07] VITALS: BP 95/54; PULSE 86; RESP 20; TEMP 98.1; O2SAT 97
[2016-12-16] MEDS: D5W as prime bag (IVIG as secondary) IV SCH (16:55)
[2016-12-16] MEDS: IMMUNE GLOBULIN INJ 20 GM in SYRINGE/BAG 1 EA IV SCH (16:55)
[2016-12-16] MEDS: SUMAtriptan INJ 6 MG/0.5 ML VIAL SQ PRN (17:51)
--- NOTE | 2016-12-16 18:43 | EKG ---
Date Performed: 12/15/2016 Time Performed: 16:08:17 PTAGE: 41 years EKG: Sinus rhythm LEFT ATRIAL ENLARGEMENT BORDERLINE RIGHT AXIS DEVIATION NONSPECIFIC ST ELEVATION ABNORMAL ECG PREVIOUS TRACING : 11/14/2016 11.46 DOCTOR: Francesco Knutson Interpretating Date/Time 12/16/2016 18:39:16
[2016-12-16 20:10] VITALS: BP 110/69; PULSE 90; RESP 17; TEMP 97.3; O2SAT 97
[2016-12-16] MEDS: AMITRIPTYLINE HCL 25 MG TAB PO SCH (20:32)
[2016-12-16] MEDS: REMOVE OLD NICODERM (NICOTINE) PATCH TD SCH (20:32)
[2016-12-17] VITALS (7 sets, daily range): BP systolic 93–126; BP diastolic 64–73; PULSE 70–98; RESP 16–18; TEMP 96.2–97.2; O2SAT 95–100
[2016-12-17] MEDS: PYRIDOSTIGMINE BROMIDE 60 MG TAB PO SCH ×3 (05:29→17:55)
[2016-12-17] MEDS: traMADol HCL 50 MG TAB PO PRN ×3 (05:30→21:10)
[2016-12-17] MEDS: azaTHIOprine 50 MG TAB PO SCH (05:30)
[2016-12-17] MEDS: ALPRAZolam 1 MG TAB PO PRN ×2 (05:35→17:59)
[2016-12-17 06:06] LABS: AUTOMATED NEUTROPHIL # 6.2 TH/MM3 (1.8-7.7); BASOPHIL % 0.5 % (0.0-2.0); EOSINOPHIL # 0.3 TH/MM3 (0-0.4); EOSINOPHIL % 3.8 % (0.0-4.0); HEMATOCRIT 32.8 % (35.0-46.0); HEMO FLAGS DIFF FINAL; LYMPHOCYTE # 1.7 TH/MM3 (1.0-4.8); MEAN CELL VOLUME 86.4 FL (80.0-100.0); MEAN CORPUSCULAR HEMOGLOBIN 28.5 PG (27.0-34.0); MONO % 6.3 % (0.0-8.0); NEUT % 70.4 % (16.0-70.0); PLATELET COUNT 285 TH/MM3 (150-450); RED CELL DISTRIBUTION WIDTH 17.3 % (11.6-17.2); WHITE BLOOD COUNT 8.8 TH/MM3 (4.0-11.0)
[2016-12-17 06:38] LABS: BICARBONATE 31.5 MEQ/L (21.0-32.0); POTASSIUM 3.3 MEQ/L (3.5-5.1)
[2016-12-17] MEDS: CITALOPRAM HYDROBROMIDE 40 MG TAB PO SCH (08:31)
[2016-12-17] MEDS: NICOTINE 21 MG/24 HR PATCH TD SCH (08:31)
[2016-12-17] MEDS: ONDANSETRON HCL 4 MG/2 ML VIAL IV PRN (08:31)
[2016-12-17] MEDS: predniSONE 20 MG TAB PO SCH (08:31)
[2016-12-17] MEDS: ENOXAPARIN SODIUM 40 MG/0.4 ML SYRINGE SQ SCH (08:32)
[2016-12-17] MEDS: SODIUM CHLORIDE 0.9% FLUSH 5 ML FLUSH FLUSH SCH ×2 (08:33→21:07)
[2016-12-17] MEDS ORDERED: POTASSIUM CHLORIDE 20 MEQ CONTROLLED RELEASE TAB PO ONE (09:45)
--- NOTE | 2016-12-17 12:53 | HHI.DCPOC ---
Discharge Care Plan Diagnosis: (1) Myasthenia gravis Goals to Promote Your Health * To prevent worsening of your condition and complications * To maintain your health at the optimal level Directions to Meet Your Goals Take your medications as prescribed Follow your dietary instruction Follow activity as directed Keep your appointments as scheduled Take your immunizations and boosters as scheduled If your symptoms worsen call your PCP, if no PCP go to Urgent Care Center or Emergency Room Smoking is Dangerous to Your Health. Avoid second hand smoke Call the 24-hour hour crisis hotline for domestic abuse at Romy Montilla PA-C Dec 17, 2016 12:53
--- NOTE | 2016-12-17 12:53 | HHI.PR ---
Subjective Remarks Follow up for myasthenia gravis exacerbation with weakness. The patient reports continued blurred vision and weakness however overall improving. She has no other medical complaints today. Objective Vitals Vital Signs Date Time Temp Pulse Resp B/P Pulse Ox O2 Delivery O2 Flow Rate FiO2 12/17/16 07:30 97.1 94 16 111/73 100 12/17/16 04:25 96.2 93 18 105/64 98 12/17/16 00:15 97.2 73 18 110/66 100 12/16/16 20:10 97.3 90 17 110/69 97 12/16/16 16:07 98.1 86 20 95/54 97 I/O 12/16/16 12/16/16 12/16/16 12/17/16 12/17/16 12/17/16 07:00 15:00 23:00 07:00 15:00 23:00 Intake Total 480 ml 480 ml Balance 480 ml 480 ml Intake Oral 480 ml 480 ml # Voids 2 3 # Bowel Movements 0 0 Result Diagram: 12/17/16 0540 12/17/16 0540 Imaging Last Impressions Chest X-Ray 12/15/16 1552 Signed Impressions: Service Date/Time: Thursday, December 15, 2016 16:24 - CONCLUSION: No acute disease. Reginald Fisher MD Objective Remarks GENERAL: Thin middle aged female patient in [facility]. SKIN: Warm and dry. No rash. HEENT: Normocephalic. Atraumatic.Pupils equal and round. No scleral icterus. No injection or drainage. Mucous membranes pink and moist. NECK: Supple. Trachea midline. CARDIOVASCULAR: Regular rate and rhythm. S1, S2 noted. No murmur appreciated. RESPIRATORY: No accessory muscle use. Clear to auscultation. Breath sounds equal bilaterally. GASTROINTESTINAL: Abdomen soft, non-tender, nondistended. Normoactive bowel sounds x4. MUSCULOSKELETAL: No obvious deformities. Extremities without clubbing, cyanosis , or edema. NEUROLOGICAL: Awake and alert. No obvious cranial nerve deficits. Motor grossly within normal limits. 5/5 strength b/l upper and lower extremities. Normal speech. PSYCHIATRIC: Appropriate mood and affect; insight and judgment normal. Medications and IVs Current Medications Medications (Trade) Dose Ordered Sig/Gómez Route Start Time Stop Time Status Last Admin (NS Flush) 2 ml UNSCH PRN FLUSH 12/15/16 20:00 (NS Flush) 2 ml BID FLUSH 12/15/16 21:00 12/17/16 08:33 (Lovenox Inj) 40 mg Q24H SQ 12/16/16 09:00 (Narcan Inj) 0.4 mg UNSCH PRN IV 12/15/16 20:00 (Elavil) 25 mg HS PO 12/15/16 21:00 12/16/16 20:32 (CeleXA) 40 mg DAILY PO 12/16/16 09:00 12/17/16 08:31 (Ultram) 50 mg Q4H PRN PO 12/15/16 20:00 12/17/16 05:30 (Xanax) 1 mg BID PRN PO 12/16/16 09:00 12/17/16 05:35 (Tylenol) 650 mg Q4H PRN PO 12/16/16 06:15 (Zofran Inj) 4 mg Q6H PRN IV 12/16/16 06:15 12/17/16 08:31 (Bonita-Colace) 1 tab BID PRN PO 12/16/16 06:15 (Milk Of Magnesia Liq) 30 ml DAILY PRN PO 12/16/16 06:15 (Mag-Al Plus Susp Liq) 30 ml Q6H PRN PO 12/16/16 06:15 (Tums Chew) 1,000 mg TID PRN CHEW 12/16/16 06:15 (Deltasone) 20 mg DAILY PO 12/16/16 09:00 12/17/16 08:31 (Habitrol 21 Mg Patch.24 Hr) 1 patch DAILY TD 12/16/16 10:45 12/17/16 08:31 Miscellaneous Information 1 1 HS TD 12/16/16 21:00 (Privigen Inj/ Syringe/Bag) 200 ml @ 25 mls/hr Q24H IV 12/16/16 16:00 12/19/16 15:59 12/16/16 16:55 Azathioprine 75 mg 75 mg DAILY@06 PO 12/17/16 06:00 12/17/16 05:30 (NS 500 ml Inj) 500 ml @ 500 mls/hr Q24H IV 12/16/16 15:00 12/20/16 14:59 12/16/16 16:05 (Tylenol) 650 mg Q24H PO 12/16/16 15:00 12/20/16 14:59 12/16/16 16:05 Diphenhydramine HCl 25 mg 25 mg Q24H PO 12/16/16 15:00 12/20/16 14:59 12/16/16 16:05 (D5W 500 ml Inj) 500 ml @ 30 mls/hr Q24H IV 12/16/16 16:00 12/20/16 15:59 12/16/16 16:55 (Benadryl Inj) 50 mg UNSCH PRN IV PUSH 12/16/16 13:45 12/20/16 13:44 (Adrenalin (1:1000) Inj) 0.3 mg Q10M PRN OTHER 12/16/16 13:45 12/20/16 13:44 (Imitrex Inj) 6 mg UNSCH PRN SQ 12/16/16 17:15 12/16/16 17:51 (Mestinon) 120 mg DAILY@0600 PO 12/17/16 06:00 12/17/16 05:29 (Mestinon) 120 mg Q24H PO 12/17/16 12:30 12/17/16 12:32 (Mestinon) 120 mg Q24H PO 12/17/16 18:00 Urinary Catheter: No Vascular Central Line Catheter: No A/P Problem List: (1) Myasthenia ICD Code: G70.00 Status: Chronic (2) Hypokalemia ICD Code: E87.6 Status: Acute (3) Chronic pain ICD Code: G89.29 Status: Chronic (4) Anemia ICD Code: D64.9 Status: Chronic (5) Anxiety and depression ICD Code: F41.9 Status: Chronic Assessment and Plan 41 year-old female with a history of myasthenia gravis who presented to the ER on 12/15/16 complaining of myasthenia gravis exacerbation. She follows with neurologist Dr. Banuelos in [place] but has seen Dr. De La Fuente in the past. Myasthenia Gravis Exacerbation - Neurology consulted, discussed with Dr. Kirby - Started on IV IG x3days - Increased Imuran from 50mg to 75mg daily - Consult physical therapy, recommends [facility] - Neurochecks - Plan to discharge 12/18 after last dose of IV IG Mild hypokalemia: potassium 3.4 - Oral potassium replacement administered - Repeat K 3.3, given additional replacement - Magnesium wnl Chronic low back pain/chronic pain syndrome - Suspect drug seeking behavior - Restart home tramadol only - advise caution with narcotics Anemia, chronic - likely secondary to chronic illness - Hemoglobin 11.2 on admission, stable from prior admissions - Repeat CBC stable at 11.2 Anxiety/Depression - Restarted home Elavil, Celexa, and Xanax (Confirmed on [employer] Website prescribed Xanax 1mg bid) Tobacco Use - counseled on cessation - Nicotine patch DVT prophylaxis - Lovenox Written by Romy Montilla, acting as scribe for Dr. Alejo on 12/17/16 at 10:40. All or portions of this note were transcribed by scribe []. I, Dr. True Alejo personally performed the history, physical exam, and medical decision making; and confirmed the accuracy of the information in the transcribed note. Authenticated by Dr. True Alejo on 12/17/16 at 14:59. Discharge Planning Discharge tomorrow 12/18 after last dose of IV IG. Needs [facility] arranged. Romy Montilla PA-C Dec 17, 2016 12:52 True Alejo MD Dec 17, 2016 14:59
--- NOTE | 2016-12-17 12:55 | HHI.FF ---
Face to Face Verification Diagnosis: (1) Myasthenia gravis with exacerbation (2) Anxiety and depression (3) Weakness Physical Therapy Order: Evaluate and Treat, Improve ambulation, Strength and gait training Home Health Nursing Order: Medical education Signs/symptoms of disease process I have seen patient Brionna Rodríguez on 12/17/16. My clinical findings support the need for the requested home health care services because: Ltd mobility - disease progression Deconditioned w/ increased weakness Limited ability to care for self High risk of falls I certify that my clinical findings support that this patient is homebound because: Unsteady gait/balance Unsafe to leave home unassisted Unable to use public transportation Romy Montilla PA-C Dec 17, 2016 12:55
[2016-12-17] MEDS ORDERED: AZAT50 PO (15:02)
[2016-12-17] MEDS: DIPHENHYDRAMINE HCL 25 MG CAP Pre-med PO SCH (15:18)
[2016-12-17] MEDS: NS 500 ML Pre-hydration IV SCH (15:19)
[2016-12-17] MEDS: ACETAMINOPHEN 325 MG TAB Pre-med PO SCH (15:19)
[2016-12-17] MEDS: IMMUNE GLOBULIN INJ 20 GM in SYRINGE/BAG 1 EA IV SCH (16:28)
[2016-12-17] MEDS: D5W as prime bag (IVIG as secondary) IV SCH (16:28)
[2016-12-17] MEDS: SUMAtriptan INJ 6 MG/0.5 ML VIAL SQ PRN (19:35)
[2016-12-17] MEDS: AMITRIPTYLINE HCL 25 MG TAB PO SCH (21:07)
[2016-12-17] MEDS: REMOVE OLD NICODERM (NICOTINE) PATCH TD SCH (21:08)
[2016-12-18] VITALS (7 sets, daily range): BP systolic 85–128; BP diastolic 61–79; PULSE 77–116; RESP 16–18; TEMP 96.3–97.5; O2SAT 95–99
[2016-12-18] MEDS: ONDANSETRON HCL 4 MG/2 ML VIAL IV PRN (00:13)
[2016-12-18] MEDS: PYRIDOSTIGMINE BROMIDE 60 MG TAB PO SCH ×3 (05:44→16:38)
[2016-12-18] MEDS: ALPRAZolam 1 MG TAB PO PRN ×2 (05:45→15:12)
[2016-12-18] MEDS: azaTHIOprine 50 MG TAB PO SCH (05:45)
[2016-12-18] MEDS: traMADol HCL 50 MG TAB PO PRN ×3 (05:45→21:04)
[2016-12-18] MEDS: ENOXAPARIN SODIUM 40 MG/0.4 ML SYRINGE SQ SCH (09:00)
[2016-12-18] MEDS: NICOTINE 21 MG/24 HR PATCH TD SCH (09:52)
[2016-12-18] MEDS: SODIUM CHLORIDE 0.9% FLUSH 5 ML FLUSH FLUSH SCH ×2 (09:52→21:04)
[2016-12-18] MEDS: CITALOPRAM HYDROBROMIDE 40 MG TAB PO SCH (09:53)
[2016-12-18] MEDS: predniSONE 20 MG TAB PO SCH (09:55)
[2016-12-18 10:11] LABS: AUTOMATED NEUTROPHIL # 5.8 TH/MM3 (1.8-7.7); BASOPHIL # 0.1 TH/MM3 (0-0.2); EOSINOPHIL # 0.3 TH/MM3 (0-0.4); EOSINOPHIL % 3.2 % (0.0-4.0); HEMATOCRIT 32.6 % (35.0-46.0); HEMO FLAGS DIFF FINAL; LYMPH % 23.8 % (9.0-44.0); LYMPHOCYTE # 2.1 TH/MM3 (1.0-4.8); MEAN CELL VOLUME 86.7 FL (80.0-100.0); MEAN CORPUSCULAR HEMOGLOBIN 28.1 PG (27.0-34.0); MEAN CORPUSCULAR HGB CONC 32.4 % (32.0-36.0); MONO % 6.6 % (0.0-8.0); NEUT % 65.4 % (16.0-70.0); PLATELET COUNT 292 TH/MM3 (150-450); RED BLOOD COUNT 3.76 MIL/MM3 (4.00-5.30); RED CELL DISTRIBUTION WIDTH 17.3 % (11.6-17.2); WHITE BLOOD COUNT 8.9 TH/MM3 (4.0-11.0)
[2016-12-18 10:35] LABS: BICARBONATE 33.2 MEQ/L (21.0-32.0)
--- NOTE | 2016-12-18 14:32 | HHI.PR ---
Subjective Remarks Follow-up for myasthenia gravis exacerbation. Patient continues to report improvement with blurred vision. She said she is due for third IVIG this afternoon, but infusion takes several hours. Objective Vitals Vital Signs Date Time Temp Pulse Resp B/P Pulse Ox O2 Delivery O2 Flow Rate FiO2 12/18/16 09:58 77 12/18/16 08:00 96.6 100 18 85/66 99 12/18/16 07:15 Room Air 12/18/16 04:02 97.4 86 16 102/61 98 12/18/16 00:00 97.5 80 18 128/79 99 12/17/16 21:05 97.1 70 16 126/71 99 12/17/16 16:00 96.9 98 17 93/68 99 I/O 12/17/16 12/17/16 12/17/16 12/18/16 12/18/16 12/18/16 07:00 15:00 23:00 07:00 15:00 23:00 Intake Total 480 ml 960 ml 720 ml 360 ml Balance 480 ml 960 ml 720 ml 360 ml Intake Oral 480 ml 960 ml 720 ml 360 ml # Voids 3 4 1 2 # Bowel Movements 0 1 Result Diagram: 12/18/16 0952 12/18/16 0952 Imaging Last Impressions Chest X-Ray 12/15/16 1552 Signed Impressions: Service Date/Time: Thursday, December 15, 2016 16:24 - CONCLUSION: No acute disease. Reginald Fisher MD Objective Remarks GENERAL: Well-developed well-nourished. In no acute distress. SKIN: Warm and dry. No lesions noted. HEENT: Normocephalic. Pupils equal and round. Mucous membranes pink and moist. CARDIOVASCULAR: Regular rate and rhythm. No murmur appreciated. RESPIRATORY: No accessory muscle use. Clear to auscultation. Breath sounds equal bilaterally. GASTROINTESTINAL: Abdomen soft, non-tender, nondistended. Bowel sounds x4. MUSCULOSKELETAL: No obvious deformities. No clubbing or cyanosis. No edema. NEUROLOGICAL: Awake and alert. No focal neurological deficits. Moves upper and lower extremities spontaneously. Normal speech. PSYCHIATRIC: Appropriate mood and affect; insight and judgment normal. A/P Problem List: (1) Myasthenia ICD Code: G70.00 Status: Chronic (2) Hypokalemia ICD Code: E87.6 Status: Acute (3) Chronic pain ICD Code: G89.29 Status: Chronic (4) Anemia ICD Code: D64.9 Status: Chronic (5) Anxiety and depression ICD Code: F41.9 Status: Chronic Assessment and Plan 41 year-old female with a history of myasthenia gravis who presented to the ER on 12/15/16 complaining of myasthenia gravis exacerbation. She follows with neurologist Dr. Banuelos in [place] but has seen Dr. De La Fuente in the past. Myasthenia Gravis Exacerbation - Neurology consulted, discussed with Dr. Kirby - Started on IV IG x3days - Increased Imuran from 50mg to 75mg daily - Consult physical therapy, recommends [facility] - Neurochecks - Plan to discharge 12/18 after last dose of IV IG Mild hypokalemia: potassium 3.4 - Oral potassium replacement administered - Repeat K 3.3, given additional replacement - Magnesium wnl Chronic low back pain/chronic pain syndrome - Suspect drug seeking behavior - Restarted home tramadol only - advise caution with narcotics Anemia, chronic - likely secondary to chronic illness - Hemoglobin 11.2 on admission, stable from prior admissions - Repeat CBC stable at 11.2 Anxiety/Depression - Restarted home Elavil, Celexa, and Xanax (Confirmed on [employer] Website prescribed Xanax 1mg bid) Tobacco Use - cessation counseling - Nicotine patch DVT prophylaxis - Lovenox Written by Long Mathis, acting as scribe for Dr. Alejo on 12/18/16 at 14:30. All or portions of this note were transcribed by scribe []. I, Dr. True Alejo personally performed the history, physical exam, and medical decision making; and confirmed the accuracy of the information in the transcribed note. Authenticated by Dr. True Alejo on 12/18/16 at 15:46. Discharge Planning Discharge planning home with [facility] after final dose of IVIG (dose administration may finish late and patient may need to stay until tomorrow a.m. due to the late hour). Long Mathis Dec 18, 2016 14:32 True Alejo MD Dec 18, 2016 15:47
[2016-12-18] MEDS: ACETAMINOPHEN 325 MG TAB Pre-med PO SCH (15:04)
[2016-12-18] MEDS: DIPHENHYDRAMINE HCL 25 MG CAP Pre-med PO SCH (15:04)
[2016-12-18] MEDS: NS 500 ML Pre-hydration IV SCH (15:05)
[2016-12-18] MEDS: D5W as prime bag (IVIG as secondary) IV SCH (16:00)
[2016-12-18] MEDS: IMMUNE GLOBULIN INJ 20 GM in SYRINGE/BAG 1 EA IV SCH (16:40)
[2016-12-18] MEDS: REMOVE OLD NICODERM (NICOTINE) PATCH TD SCH (21:00)
[2016-12-18] MEDS: AMITRIPTYLINE HCL 25 MG TAB PO SCH (21:03)
[2016-12-19 00:15] VITALS: BP 102/59; PULSE 91; RESP 16; TEMP 97.2; O2SAT 97
[2016-12-19 04:10] VITALS: BP 105/63; PULSE 96; RESP 16; TEMP 97.5; O2SAT 99
[2016-12-19] MEDS: traMADol HCL 50 MG TAB PO PRN (04:59)
[2016-12-19] MEDS: ALPRAZolam 1 MG TAB PO PRN (04:59)
[2016-12-19] MEDS: azaTHIOprine 50 MG TAB PO SCH (05:00)
[2016-12-19] MEDS: PYRIDOSTIGMINE BROMIDE 60 MG TAB PO SCH ×2 (05:00→09:53)
[2016-12-19 05:45] LABS: AUTOMATED NEUTROPHIL # 8.5 TH/MM3 (1.8-7.7); BASOPHIL # 0.1 TH/MM3 (0-0.2); BASOPHIL % 0.7 % (0.0-2.0); EOSINOPHIL # 0.3 TH/MM3 (0-0.4); EOSINOPHIL % 2.9 % (0.0-4.0); HEMO FLAGS DIFF FINAL; LYMPH % 19.5 % (9.0-44.0); LYMPHOCYTE # 2.3 TH/MM3 (1.0-4.8); MEAN CELL VOLUME 87.2 FL (80.0-100.0); MEAN CORPUSCULAR HEMOGLOBIN 28.3 PG (27.0-34.0); MEAN CORPUSCULAR HGB CONC 32.4 % (32.0-36.0); MONO % 5.4 % (0.0-8.0); NEUT % 71.5 % (16.0-70.0); PLATELET COUNT 365 TH/MM3 (150-450); RED BLOOD COUNT 4.12 MIL/MM3 (4.00-5.30); RED CELL DISTRIBUTION WIDTH 17.3 % (11.6-17.2); WHITE BLOOD COUNT 11.9 TH/MM3 (4.0-11.0)
[2016-12-19 06:46] LABS: BICARBONATE 32.6 MEQ/L (21.0-32.0)
[2016-12-19 06:58] LABS: POTASSIUM 4.2 MEQ/L (3.5-5.1)
[2016-12-19 09:00] VITALS: PULSE 86
[2016-12-19] MEDS: NICOTINE 21 MG/24 HR PATCH TD SCH (09:00)
[2016-12-19] MEDS: ENOXAPARIN SODIUM 40 MG/0.4 ML SYRINGE SQ SCH (09:00)
[2016-12-19] MEDS: predniSONE 20 MG TAB PO SCH (09:50)
[2016-12-19] MEDS: CITALOPRAM HYDROBROMIDE 40 MG TAB PO SCH (09:50)
[2016-12-19] MEDS: SODIUM CHLORIDE 0.9% FLUSH 5 ML FLUSH FLUSH SCH (09:51)
--- NOTE | 2016-12-19 11:00 | HHI.DS ---
Discharge Summary Admission Date Dec 16, 2016 at 12:27 Discharge Date: Dec 19, 2016 Admitting Diagnosis myasthenia crisis, weakness (1) Myasthenia ICD Code: G70.00 Diagnosis: Principal (2) Hypokalemia ICD Code: E87.6 Diagnosis: Secondary (3) Chronic pain ICD Code: G89.29 Diagnosis: Secondary (4) Anemia ICD Code: D64.9 Diagnosis: Secondary (5) Anxiety and depression ICD Code: F41.9 Diagnosis: Secondary Procedures None Brief History - From Admission Mrs. Rodríguez is a 41 year-old female with a history of myasthenia gravis who presented to the ER on 12/15/16 complaining of myasthenia gravis exacerbation. She follows with neurologist Dr. Banuelos in [place] but has seen Dr. De La Fuente in the past. The patient is seen in her room in the CDU. She states that she was walking her kids to the bus stop, felt weak, and fell to the ground. She denies any shortness of breath, chest pain, palpitations fever, nausea, vomiting, melena, hematochezia, dysuria, hematuria. She reports on and off diarrhea. She states she felt like this was going to come on because she'd been noticing that her hands were weak and she had poor vision in her eyes in the weeks prior to the episode. She said her until [place] on Wednesday night for training and she was left alone to care for her children. She states her oldest son who is age 11 helped and she does not know what she would've done without him. Her [id number] brought her to the hospital and is watching her children right now. The patient reports that she was receiving IVIG twice a month with recent increase to 3 times per month by her neurologist Dr. Banuelos about a month ago. She states that she has daily Imuran on, prednisone, and Mestinon. She states she is no longer taking CellCept. 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 Of note, the patient reported nearly this exact same story to me on June when I saw her for myasthenia gravis exacerbation including her fall while walking her children to the bus stop. CBC/BMP: 12/19/16 0527 12/19/16 0527 Significant Findings Laboratory Tests Test 12/17/16 12/18/16 12/19/16 05:40 09:52 05:27 Red Blood Count 3.80 MIL/MM3 3.76 MIL/MM3 (4.00-5.30) (4.00-5.30) Hemoglobin 10.8 GM/DL 10.6 GM/DL (11.6-15.3) (11.6-15.3) Hematocrit 32.8 % 32.6 % (35.0-46.0) (35.0-46.0) Red Cell Distribution Width 17.3 % 17.3 % 17.3 % (11.6-17.2) (11.6-17.2) (11.6-17.2) Neutrophils (%) (Auto) 70.4 % 71.5 % (16.0-70.0) (16.0-70.0) Potassium Level 3.3 MEQ/L (3.5-5.1) Anion Gap 4 MEQ/L (5-15) 3 MEQ/L (5-15) 2 MEQ/L (5-15) Blood Urea Nitrogen 4 MG/DL (7-18) Carbon Dioxide Level 33.2 MEQ/L 32.6 MEQ/L (21.0-32.0) (21.0-32.0) Random Glucose 73 MG/DL 69 MG/DL (74-106) (74-106) White Blood Count 11.9 TH/MM3 (4.0-11.0) Neutrophils # (Auto) 8.5 TH/MM3 (1.8-7.7) Estimat Glomerular Filtration 82 ML/MIN (>89) Rate Imaging Last Impressions Chest X-Ray 12/15/16 1552 Signed Impressions: Service Date/Time: Thursday, December 15, 2016 16:24 - CONCLUSION: No acute disease. Reginald Fisher MD PE at Discharge GENERAL: Well-developed well-nourished. In no acute distress. SKIN: Warm and dry. No lesions noted. HEENT: Normocephalic. Pupils equal and round. Mucous membranes pink and moist. CARDIOVASCULAR: Regular rate and rhythm. No murmur appreciated. RESPIRATORY: No accessory muscle use. Clear to auscultation. Breath sounds equal bilaterally. GASTROINTESTINAL: Abdomen soft, non-tender, nondistended. Bowel sounds x4. MUSCULOSKELETAL: No obvious deformities. No clubbing or cyanosis. No edema. NEUROLOGICAL: Awake and alert. No focal neurological deficits. Moves upper and lower extremities spontaneously. Normal speech. PSYCHIATRIC: Appropriate mood and affect; insight and judgment normal. Hospital Course 41 year-old female with a history of myasthenia gravis who presented to the ER on 12/15/16 complaining of myasthenia gravis exacerbation. She follows with neurologist Dr. Banuelos in [place] but has seen Dr. De La Fuente in the past. Myasthenia Gravis Exacerbation - Neurology consulted, discussed with Dr. Kirby - S/p IV IG x3days - Increased Imuran from 50mg to 75mg daily - Consult physical therapy, recommends [facility] - Neurochecks - Improved Mild hypokalemia: potassium 3.4 - Oral potassium replacement administered - Repeat K 3.3, given additional replacement - Magnesium wnl Chronic low back pain/chronic pain syndrome - Suspect drug seeking behavior - Restarted home tramadol only - advise caution with narcotics Anemia, chronic - likely secondary to chronic illness - Hemoglobin 11.2 on admission, stable from prior admissions - Repeat CBC stable at 11.2 Anxiety/Depression - Restarted home Elavil, Celexa, and Xanax (Confirmed on [facility] prescribed Xanax 1mg bid) Tobacco Use - cessation counseling - Nicotine patch DVT prophylaxis - Lovenox Pt Condition on Discharge: Stable Discharge Disposition: Discharge Home Discharge Time: <= 30 minutes Discharge Instructions DIET: Follow Instructions for: As Tolerated, No Restrictions Activities you can perform: Regular-No Restrictions Follow up Referrals: Neurology - 1 Week PCP Follow-up - 1 Week SNF/[facility]/ with [place] [facility] [phone] New Medications: Azathioprine (Azathioprine) 50 Mg Tab 75 MG PO DAILY@06 Control Inflammation #30 TAB Continued Medications: Alprazolam (Xanax) 1 Mg Tab 1 MG PO QID ANXIETY Ref 0 TAB Amitriptyline (Amitriptyline) 25 Mg Tab 25 MG PO HS TAB Citalopram (Citalopram) 40 Mg Tab 40 MG PO DAILY Control Depression #30 Ref 0 TAB Prednisone (Prednisone) 20 Mg Tab 20 MG PO DAILY Ref 0 TAB Pyridostigmine (Mestinon) 60 Mg Tab 120 MG PO TIDAC Manage Myastenia Gravis #360 Ref 0 TAB Sumatriptan (Imitrex) 50 Mg Tab 50 MG PO DAILY If a satisfactory response has not been obtained at 2 hours, a second dose may be administered PRN HEADACHE Ref 0 TAB Tramadol (Tramadol) 50 Mg Tab 50 MG PO Q4H PRN PAIN Ref 0 TAB True Alejo MD Dec 19, 2016 11:00
== END 2016-12-19 10:58 | disposition home or self-care (01) | DRG 57 ==
LOC: NEPC 13:28 → NEDA 19:17 → NEPGCP 21:41 → OBSVTOIN 12-16 12:27 → N06B 12-16 20:01
PROVIDERS: ADMIT Internal Medicine; ATTEND Internal Medicine
DX: G70.01 Myasthenia gravis with (acute) exacerbation (principal); H05.20 Unspecified exophthalmos; F32.9 Major depressive disorder, single episode, unspecified; E87.6 Hypokalemia; D63.8 Anemia in other chronic diseases classified elsewhere; G89.4 Chronic pain syndrome; F17.210 Nicotine dependence, cigarettes, uncomplicated; F41.9 Anxiety disorder, unspecified; W18.30XA Fall on same level, unspecified, initial encounter; Y93.01 Activity, walking, marching and hiking; Z88.0 Allergy status to penicillin
CPT/HCPCS: 71010; 80048; 80053; 83735; 84443; 85025; 85610; 85730; 93005; 94150; G0378; G8987-GP; G8988-GP; J1459; J1650; J2405; J3030; J7040; J7060; J7500; J7512

== ENCOUNTER 2017-03-08 13:36 | Inpatient (IN) | payer MEDICARE, MEDICAID ==
[2017-03-07 18:49] VITALS: BP 120/70; PULSE 89; RESP 20; TEMP 97.9; O2SAT 98
[2017-03-08] VITALS (7 sets, daily range): BP systolic 118–126; BP diastolic 58–75; PULSE 89–112; RESP 16–24; TEMP 97.9–98.6; O2SAT 94–98
[~2017-03-08] VITALS: Ht 165.1 cm; Wt 51.2 kg
[~2017-03-08 13:36] MED LIST changes: +AZAT50 PO; +DIAZ10 PO; +IMUR50TA PO
--- NOTE | 2017-03-08 14:07 | PD ---
HPI Chief Complaint: Musculoskeletal Complaint Time Seen by Provider: 13:50 Travel History International Travel<30 days: No Contact w/Intl Traveler<30days: No Traveled to known affect area: No History of Present Illness HPI This is a 41-year-old female who has a long history of myasthenia gravis who presents to the emergency department with generalized weakness worsening over the past week, constant, severe to the point where she is not able to walk around independently and has to hold on to her family for support. She feels very very fatigued and she feels like all of her muscles are weak. She is having no trouble swallowing but she does feel like she is having some trouble breathing and she's been coughing, feeling like her cough is wet been unable to get any sputum out. She denies any fevers or chills. Patient reports that she was just hospitalized for 10 days at [facility] in their intensive care unit and was intubated on a ventilator for 4 days. At that time she had plasmapheresis. She feels like she never got any better after that hospitalization. She says that IVIG really works for her. She sees Dr. Banuelos who is her neurologist. He recommended IVIG 2-3 times per month but her insurance won't pay for it. [facility] Past Medical History Anemia: Yes Arthritis: No Autoimmune Disease: Yes (MYASTHENA GRAVIS) Blood Disorders: No Anxiety: Yes Depression: Yes Heart Rhythm Problems: No Cancer: No Cardiovascular Problems: No High Cholesterol: No Chest Pain: No Congestive Heart Failure: No Cerebrovascular Accident: No Cystic Fibrosis: No Diabetes: No Diminished Hearing: No Endocrine: No Gastrointestinal Disorders: Yes Genitourinary: No Hepatitis: No Hiatal Hernia: No Hypertension: No Immune Disorder: Yes (MYASTHENIA GRAVIS) Implanted Vascular Access Dvce: Yes (left chest) Musculoskeletal: Yes Neurologic: Yes (MYASTHENIA GRAVIS - Jul, 2013) Psychiatric: Yes (DEPRESSION, ANXIETY) Reproductive: No Respiratory: No Immunizations Current: No Migraines: Yes Seizures: No Thyroid Disease: No ?: Not : 2 Para: 2 Dilation and Curettage (D&C): Yes Tubal Ligation: Yes Past Surgical History Abdominal Surgery: No Body Medical Devices: LEFT IMPLANTED PORT Cardiac Surgery: No Ear Surgery: No Endocrine Surgery: Yes ( ) Eye Surgery: No Genitourinary Surgery: No Gynecologic Surgery: Yes (tubal ligation 2014) Hysterectomy: Yes Neurologic Surgery: No Oral Surgery: Yes (EXTRACTIONS) Thoracic Surgery: No Tonsillectomy: Yes Other Surgery: Yes (tubal ligation Dec 2014/ POWER PORT TO LEFT CHEST) Social History Alcohol Use: No Tobacco Use: Yes (< 1/2 PPD) Substance Use: No Allergies-Medications (Allergen,Severity, Reaction): Coded Allergies: Penicillin (Verified Allergy, Severe, Anaphylaxis, 03/08/17) Phenergan (Verified Adverse Reaction, Severe, NAUSEOUS, 03/08/17) Reported Meds & Prescriptions Reported Meds & Active Scripts Active Azathioprine 50 Mg Tab 75 Mg PO DAILY@06 Reported Imuran (Azathioprine) 50 Mg Tab 50 Mg PO DAILY Hazardous agent: use appropriate precautions for handling and disposal. Prednisone 20 Mg Tab 20 Mg PO DAILY Tramadol (Tramadol HCl) 50 Mg Tab 50 Mg PO Q4H PRN Mestinon (Pyridostigmine [place]) 60 Mg Tab 120 Mg PO TIDAC Imitrex (Sumatriptan Succinate) 50 Mg Tab 50 Mg PO DAILY PRN If a satisfactory response has not been obtained at 2 hours, a second dose may be administered Citalopram (Citalopram Hydrobromide) 40 Mg Tab 40 Mg PO DAILY Amitriptyline (Amitriptyline HCl) 25 Mg Tab 25 Mg PO HS Review of Systems Except as stated in HPI: all other systems reviewed are Neg Physical Exam Narrative GENERAL: Chronically ill-appearing. SKIN: Focused skin assessment warm and dry. HEAD: Atraumatic. Normocephalic. EYES: Pupils equal and round. No injection or drainage. ENT: Moist mucous membranes NECK: Trachea midline. CARDIOVASCULAR: Regular rate and rhythm. No murmur appreciated. RESPIRATORY: Clear to auscultation. Breath sounds equal bilaterally. GASTROINTESTINAL: Abdomen soft, non-tender, nondistended. MUSCULOSKELETAL: No obvious deformities. NEUROLOGICAL: Awake and alert. Bilateral ptosis. 4 out of 5 strength in the bilateral upper and lower extremities. Normal speech. PSYCHIATRIC: Appropriate mood and affect; insight and judgment normal. Data Data Last Documented VS Vital Signs Date Time Temp Pulse Resp B/P Pulse Ox O2 Delivery O2 Flow Rate FiO2 03/08/17 16:15 112 22 118/72 95 Room Air 2 03/08/17 13:39 98.6 Orders Complete Blood Count With Diff (03/08/17 13:59) Comprehensive Metabolic Panel (03/08/17 13:59) Chest, Single Ap (03/08/17 ) Resp Respiratory Parameters (03/08/17 ) Blood Culture (03/08/17 14:47) Sodium Chloride 0.9% Flush (Ns Flush) (03/08/17 15:00) Aztreonam Inj (Azactam Inj) (03/08/17 15:00) Admit Order (Ed Use Only) (03/08/17 16:36) Labs Laboratory Tests Test 03/08/17 14:20 White Blood Count 24.8 TH/MM3 Red Blood Count 2.90 MIL/MM3 Hemoglobin 8.1 GM/DL Hematocrit 25.2 % Mean Corpuscular Volume 87.0 FL Mean Corpuscular Hemoglobin 28.1 PG Mean Corpuscular Hemoglobin 32.3 % Concent Red Cell Distribution Width 18.4 % Platelet Count 323 TH/MM3 Mean Platelet Volume 7.8 FL Neutrophils (%) (Auto) 94.7 % Lymphocytes (%) (Auto) 1.8 % Monocytes (%) (Auto) 3.4 % Eosinophils (%) (Auto) 0.0 % Basophils (%) (Auto) 0.1 % Neutrophils # (Auto) 23.5 TH/MM3 Lymphocytes # (Auto) 0.5 TH/MM3 Monocytes # (Auto) 0.8 TH/MM3 Eosinophils # (Auto) 0.0 TH/MM3 Basophils # (Auto) 0.0 TH/MM3 CBC Comment DIFF FINAL Differential Comment Sodium Level 140 MEQ/L Potassium Level 3.3 MEQ/L Chloride Level 98 MEQ/L Carbon Dioxide Level 34.7 MEQ/L Anion Gap 7 MEQ/L Blood Urea Nitrogen 5 MG/DL Creatinine 0.47 MG/DL Estimat Glomerular Filtration 147 ML/MIN Rate Random Glucose 128 MG/DL Calcium Level 9.4 MG/DL Total Bilirubin 0.4 MG/DL Aspartate Amino Transf 12 U/L (AST/SGOT) Alanine Aminotransferase 34 U/L (ALT/SGPT) Alkaline Phosphatase 73 U/L Total Protein 6.5 GM/DL Albumin 3.2 GM/DL MDM Medical Decision Making Medical Screen Exam Complete: Yes Emergency Medical Condition: Yes Medical Record Reviewed: Yes (patient has been admitted to this hospital multiple times in the past with mycin you crisis and has been treated with IVIG) Interpretation(s) Afebrile, tachycardic, normotensive Leukocytosis 94% neutrophils Mild hypokalemia ABG: Chronic respiratory acidosis with metabolic compensation. Patient's PCO2 was 54 in August 2015 Last 24 hours Impressions Chest X-Ray 03/08/17 0000 Signed Impressions: Service Date/Time: Wednesday, March 08, 2017 14:11 - CONCLUSION: Underinflation with mild bibasilar opacity representing atelectasis or mild air space consolidation. No other acute finding is seen. Kory Wilson MD Differential Diagnosis Myasthenia crisis, pneumonia, cholinergic crisis, urinary tract infection Narrative Course This is a 41-year-old female who presents to the emergency department with increasing muscle weakness and difficulty breathing that's been progressive over the past week. She was intubated at [facility] one week ago in the ICU and was treated with plasma-exchange therapy. She says she hasn't felt better since. She is placed on a monitor and an IV was established. Labs are obtained which demonstrate a leukocytosis which may be in the setting of steroid use but patient has a wet sounding cough on exam and a possible consolidation on chest x-ray so she was given Azactam and cultures were obtained. Urinalysis also demonstrates a urinary tract infection. Patient appeared increasingly weak and symptomatic here in the emergency department as she was being watched. At one point I went into the room and the patient dropped her oxygen saturation into the 80s and appeared to have mucus plugging that she was having trouble clearing. I do think the patient is in a severe myasthenia crisis. I discussed intubation with her as I thought it was indicated at that time but she didn't want to be intubated. I think this needs to be readdressed that she is young and this is a reversible condition. At this point her naris is -30 and her forced vital capacity is 1.5 so I think she is safe to be transported to the ICU. She was seen by the neurologist who agreed with IVIG therapy which I ordered. Patient will be admitted to the [facility] for further management and close respiratory observation. Critical Care Narrative Aggregate critical care time was 50 minutes. Time to perform other separately billable procedures was not included in the critical care time. My time did not include minutes spent treating any other patients simultaneously or on activities that did not directly contribute to the patient's treatment. The services I provided to this patient were to treat and/or prevent clinically significant deterioration that could result in: Disability, I provided critical care services requiring my management, as noted below: Chart data review, documentation time, medication orders and management, vital sign assessments/reviewing monitor data, ordering and reviewing lab tests, ordering and interpreting/reviewing x-rays and diagnostic studies, care of the patient and discussion of the patient with the admitting physicians. Physician Communication Physician Communication Discussed with Dr. Dover and Dr. Grady Admitting Information Admitting Physician Requests: it Sima Coombs MD March 08, 2017 14:07
--- NOTE | 2017-03-08 14:26 | RADRPT ---
EXAM DATE/TIME: 03/08/2017 14:11 [place] COMPARISON: CHEST SINGLE AP, December 15, 2016, 16:24. INDICATIONS : Short of breath, dry cough, medical clearance MEDICAL HISTORY : myasthenia gravis SURGICAL HISTORY : infusaport ENCOUNTER: Initial ACUITY: 1 day PAIN SCORE: 0/10 LOCATION: Bilateral chest FINDINGS: Portable AP view of the chest demonstrates a normal-sized cardiac silhouette. Left chest wall Infuse- a-Port is present. EKG lines overlie the patient. There is mild bibasilar opacity. No pleural effusio n or pneumothorax is visualized. The bones and soft tissues demonstrate no acute finding. CONCLUSION: Underinflation with mild bibasilar opacity representing atelectasis or mild air space consolidation. No other acute finding is seen. Kory Wilson MD on March 08, 2017 at 14:23 Board Certified Radiologist. This report was verified electronically.
[2017-03-08 14:46] LABS: AUTOMATED NEUTROPHIL # 23.5 TH/MM3 (1.8-7.7); BASOPHIL % 0.1 % (0.0-2.0); HEMATOCRIT 25.2 % (35.0-46.0); HEMO FLAGS DIFF FINAL; LYMPH % 1.8 % (9.0-44.0); LYMPHOCYTE # 0.5 TH/MM3 (1.0-4.8); MEAN CORPUSCULAR HEMOGLOBIN 28.1 PG (27.0-34.0); MEAN CORPUSCULAR HGB CONC 32.3 % (32.0-36.0); MONO % 3.4 % (0.0-8.0); NEUT % 94.7 % (16.0-70.0); PLATELET COUNT 323 TH/MM3 (150-450); RED CELL DISTRIBUTION WIDTH 18.4 % (11.6-17.2); WHITE BLOOD COUNT 24.8 TH/MM3 (4.0-11.0)
[2017-03-08] MEDS ORDERED: SODIUM CHLORIDE 0.9% FLUSH 10 ML FLUSH IVF PRN (15:00)
[2017-03-08] MEDS ORDERED: AZTREONAM INJ 2,000 MG in SODIUM CHLORIDE 0.9% INJ 100 ML IV ONE (15:00)
[2017-03-08 15:17] LABS: ALT (GPT) 34 U/L (10-53); ANION GAP 7 MEQ/L (5-15); AST (GOT) 12 U/L (15-37); BICARBONATE 34.7 MEQ/L (21.0-32.0); BLOOD UREA NITROGEN 5 MG/DL (7-18); CHLORIDE 98 MEQ/L (98-107); GLOMERULAR FILTRATION RATE 147 ML/MIN (>89); POTASSIUM 3.3 MEQ/L (3.5-5.1); SODIUM (NA) 140 MEQ/L (136-145)
[2017-03-08 15:19] LABS: ALKALINE PHOSPHATASE 73 U/L (45-117); TOTAL BILIRUBIN ADULT 0.4 MG/DL (0.2-1.0)
[2017-03-08] MEDS ORDERED: ACETAMINOPHEN 325 MG TAB PO ONE (17:30)
[2017-03-08] MEDS ORDERED: diphenhydrAMINE HCL 25 MG CAP PO ONE (17:30)
[2017-03-08] MEDS ORDERED: SODIUM CHLORID 0.9% 500 ML INJ 500 ML IV ONE (17:30)
[2017-03-08 17:46] LABS: BACTERIA, URINE MOD /hpf; BLOOD, URINE SMALL (NEG); COMMENT (UR) CULTURE INDICATED; CULTURE IF INDICATED CULTURE INDICATED; GLUCOSE,URINE NEG (NEG); KETONE, URINE NEG (NEG); NITRITE,URINE NEG (NEG); SQUAMOUS EPITHELIAL CELL URINE 1 /hpf (0-5); URINE COLOR YELLOW (YELLW/STRAW)
[2017-03-08 17:55] LABS: BLOOD GAS BASE EXCESS 7.6 mmol/L (-2-2); BLOOD GAS CARBOXYHEMOGLOBIN 3.3 % (0-4); BLOOD GAS HCO3 33 mmol/L (22-26); BLOOD GAS METHEMOGLOBIN 0.3 % (0-2); BLOOD GAS O2 HGB SATURATION 91 % (90-100); BLOOD GAS OXYGEN CONTENT 10.3 Vol % (12.0-20.0); BLOOD GAS PCO2 54 mmHg (38-42); BLOOD GAS PO2 69 mmHG (61-120); TEMP CORR TO 98.6
[2017-03-08 17:56] LABS: CRITICAL VALUE YES; DRAW SITE RT RADIAL; LITER FLOW 6 L/M; NUMBER OF ARTERIAL PUNCTURES 1; OXYGEN DEVICE NASAL CANNULA; STAT YES; ULNAR PULSE PRESENT
[2017-03-08] MEDS ORDERED: DEXTROSE 5% IN WATE 500 ML INJ 500 ML OTHER ONE (18:29)
[2017-03-08] MEDS ORDERED: EPINEPHrine HCL (1:1000) 1 MG/ML VIAL OTHER PRN ×2 (18:30→19:00)
[2017-03-08] MEDS ORDERED: IMMUNE GLOBULIN INJ 50 GM in SYRINGE/BAG 1 EA IV SCH (18:30)
[2017-03-08] MEDS ORDERED: diphenhydrAMINE HCL 50 MG/ML VIAL IV PUSH PRN ×2 (18:30→19:00)
[2017-03-08] MEDS: SODIUM CHLORID 0.9% 500 ML INJ 500 ML IV SCH (18:54)
[2017-03-08] MEDS: ACETAMINOPHEN 325 MG TAB PO SCH (18:55)
[2017-03-08] MEDS: DEXTROSE 5% IN WATE 500 ML INJ 500 ML OTHER SCH (18:55)
[2017-03-08] MEDS: IMMUNE GLOBULIN INJ 20 GM in SYRINGE/BAG 1 EA IV SCH (19:00)
--- NOTE | 2017-03-08 19:00 | MB ---
cc: LIZY JONES DATE OF CONSULTATION: 03/08/2017. HISTORY OF PRESENT ILLNESS: The patient is a frequent visitor to [facility] and is seen by neurology frequently. I last saw her May of 2016. She is a 41-year-old woman with a history of myasthenia gravis, anxiety, depression, migraine headaches. She gets monthly IVIG for myasthenia gravis. She has always had a lot of give-way weakness in the past. She has been on CellCept in the past. She has a history of her tubes tied, history of C02 retention, Lyme titer negative, RPR negative, MIMI negative. Acetylcholine receptor antibodies positive in the past, thyroid and liver function tests have been normal. Her pAC02 even as high as 57 one time. Nevertheless, she was in [facility] about two weeks ago and was actually intubated. She had been [facility] [place] [facility]. She was over there, so her records are not under her name. Nevertheless, she went home last Wednesday and has had a hard time walking, shortness of breath, generally weak and came back into the hospital here where she was found to be generally weak with a lot of rhonchi and admitted now for myasthenia gravis exacerbation. She did get plasma exchange x5 over at [facility] several weeks ago, but no IVIG, which has worked best for her in the past. In fact, she usually gets it over, I believe, five days. FAMILY HISTORY: Positive for cancer. Negative for seizure or stroke. SOCIAL HISTORY: Not a smoker. Not a drinker. Lives alone. Has been with some friends recently. REVIEW OF SYSTEMS: No history of hypertension, diabetes, hypercholesterolemia, myocardial infarction, CABG, cardiac arrhythmia, renal, hepatic, thyroid disease, lupus, ulcer, cancer, seizure or stroke in the past. ALLERGIES: 1. PENICILLIN. 2. PHENERGAN. MEDICATIONS: 1. She takes azathioprine 75 milligrams a day. 2. Valium 10 milligrams at bedtime. 3. Prednisone 20 milligrams a day. 4. Tramadol 50 PRN. 5. Mestinon 120 milligrams three times a day. 6. Imitrex PRN. 7. Citalopram 40 a day. 8. Elavil 25 at bedtime. 9. Xanax 1 milligram four times a day. PHYSICAL EXAMINATION: VITAL SIGNS: Afebrile, pulse 92 to 112, 124/74, 02 saturations 94% to 96%. Respiratory rate 22. GENERAL: She looks a little bit lethargic and very fatigued. She refused intubation here. NECK: There are no carotid bruits. HEART: Regular rhythm. CHEST: She has however significant rhonchi especially in the right anterior lung. NEUROLOGICAL EXAMINATION: Eye closure and pupil muscles are normal but her lateral eye movement she has some dysconjugate gaze going back and forth and some slow eye movements there consistent with myasthenia. Tongue was midline. She had normal strength in bilateral deltoids and finger extensors but her triceps are 4-/5 bilaterally. Iliopsoas are 4-/5 bilaterally. Tibialis anterior are normal. LABORATORY STUDIES: Her white count is 25,000. Hematocrit is 25, usually she is in the 30s. Platelet count is 323,000. Sedimentation rate was normal two years ago. ABG here now: 7.40, 54 with a pA02 of 69. In the past in 2014, she had best ABG was a pAC02 of 41 but she has had 46, 48 and a 54 in the past and 37 was her pAC02 back in 2013, another one 57 in 2014. Her last ABG was 7.43, 46, 82 in January of last year, so almost a year ago. Her last acetylcholine receptor antibody titer was 9.5 in 2014. Urine drug screen positive for cocaine back in May of 2016. Urinalysis showed a large amount of leukocyte esterase, 13 white cells here today. Basic metabolic profile: Potassium 3.3. C02 34. Liver function tests normal. IMPRESSION: 1. Her myasthenia is worse and we are going to give her the IVIG. 2. She is going to be admitted to the intensive care unit. 3. I note her chest x-ray tonight shows bibasilar opacity, atelectasis. 4. Will have pulmonary see her. 5. For now, her Xanax has been held but we will have to watch for any Xanax withdrawal here, and likely will need a lower dose of Xanax to prevent any withdrawal seizures. I will be following her with you in the hospital. MD ROSS Lemon/JOHN /6:26 PM /6:41 PM
[2017-03-08] MEDS: diphenhydrAMINE HCL 25 MG CAP PO SCH (19:28)
--- NOTE | 2017-03-08 19:43 | HHI.HP ---
HPI Service Critical Care Medicine Primary Care Physician No Primary Care Physician Admission Diagnosis myasthenia gravis Diagnosis: Travel History International Travel<30 Days: No Contact w/Intl Traveler <30 Da: No Traveled to Known Affected Are: No History of Present Illness 41-year-old female with a long history of myasthenia gravis and multiple admissions for myasthenic crisis presents with generalized weakness worsening over the past week, constant, severe to the point where she is not able to walk around independently and has to hold on to her family for support. She was just hospitalized for 10 days at [facility] in their intensive care unit and was intubated on a ventilator for 4 days. At that time she has had plasmapheresis. She feels like she never got any better after that hospitalization. She says that IVIG really works for her. She sees Dr. Banuelos who is her neurologist. He recommended IVIG 2-3 times per month but her insurance would not pay for it. Review of Systems ROS Unable to obtain patient is too weak and lethargic Past Family Social History Allergies: Coded Allergies: Penicillin (Verified Allergy, Severe, Anaphylaxis, 03/08/17) Phenergan (Verified Adverse Reaction, Severe, NAUSEOUS, 03/08/17) Past Medical History Myasthenia gravis diagnosed in 2011 Anxiety Depression Chronic Anemia Past Surgical History Tonsillectomy Thymectomy 2012 Port placement: left chest Chronic low back pain/chronic pain syndrome D&C Reported Medications Reported Meds & Active Scripts Active Azathioprine 50 Mg Tab 75 Mg PO DAILY@06 Reported Imuran (Azathioprine) 50 Mg Tab 50 Mg PO DAILY Hazardous agent: use appropriate precautions for handling and disposal. Prednisone 20 Mg Tab 20 Mg PO DAILY Tramadol (Tramadol HCl) 50 Mg Tab 50 Mg PO Q4H PRN Mestinon (Pyridostigmine [place]) 60 Mg Tab 120 Mg PO TIDAC Imitrex (Sumatriptan Succinate) 50 Mg Tab 50 Mg PO DAILY PRN If a satisfactory response has not been obtained at 2 hours, a second dose may be administered Citalopram (Citalopram Hydrobromide) 40 Mg Tab 40 Mg PO DAILY Amitriptyline (Amitriptyline HCl) 25 Mg Tab 25 Mg PO HS Active Ordered Medications Current Medications Medications (Trade) Dose Ordered Sig/Gómez Route PRN Reason Start Time Stop Time Status Last Admin Dose Admin Sodium Chloride (NS 500 ml Inj) 500 ml @ 500 mls/hr Q24H IV 03/08/17 18:00 03/12/17 18:59 03/08/17 18:54 Acetaminophen 650 mg 650 mg Q24H PO 03/08/17 18:00 03/13/17 17:59 03/08/17 18:55 Dextrose (D5W 500 ml Inj) 500 ml @ 30 mls/hr [id number] OTHER 03/08/17 18:55 03/12/17 06:14 Diphenhydramine HCl 25 mg 25 mg Q24H PO 03/08/17 18:00 03/13/17 17:59 03/08/17 19:28 Immune Globulin/ Syringe / Bag (Privigen Inj/ Syringe/Bag) 200 ml @ 15 mls/hr Q24H IV 03/08/17 19:00 03/13/17 08:19 Diphenhydramine HCl (Benadryl Inj) 50 mg UNSCH PRN IV PUSH ALLERGIC REACTION 03/08/17 19:00 03/14/17 18:59 Epinephrine HCl (Adrenalin (1:1000) Inj) 0.3 mg Q10M PRN OTHER ANALPHYLACTIC REACTION 03/08/17 19:00 03/14/17 18:59 Sodium Chloride (NS Flush) 2 ml UNSCH PRN .XX FLUSH AFTER USING IV ACCESS 03/08/17 19:45 Sodium Chloride (NS Flush) 2 ml BID .XX 03/08/17 21:00 Acetaminophen (Tylenol) 650 mg Q6H PRN PO PAIN 1-10 AND/OR FEVER >101F 03/08/17 19:45 UNV Enoxaparin Sodium (Lovenox Inj) 30 mg Q24H SQ 03/08/17 19:45 UNV Miscellaneous Information 1 Q361D XX 03/08/17 19:45 Chlorhexidine Gluconate (Chlorhexidine 2% Cloth) 3 pack Taper DAILY@04 TOP 03/09/17 04:00 03/05/18 03:59 Chlorhexidine Gluconate (Chlorhexidine 2% Cloth) 3 pack UNSCH PRN TOP HYGIENIC CARE 03/08/17 19:45 Senna/Docusate Sodium (Bonita-Colace) 1 tab BID PO 03/08/17 21:00 Magnesium Hydroxide (Milk Of Magnesia Liq) 30 ml Q12H PRN PO MILD - MODERATE CONSTIPATION 03/08/17 19:45 Sennosides (Senokot) 17.2 mg Q12H PRN PO MODERATE - SEVERE CONSTIPATION 03/08/17 19:45 Bisacodyl (Dulcolax Supp) 10 mg DAILY PRN RECTAL SEVERE CONSITIPATION 03/08/17 19:45 Lactulose (Lactulose Liq) 30 ml DAILY PRN PO SEVERE CONSITIPATION 03/08/17 19:45 Amitriptyline HCl (Elavil) 25 mg HS PO 03/08/17 21:00 Azathioprine (Imuran) 75 mg DAILY@06 PO 03/09/17 06:00 UNV Citalopram Hydrobromide (CeleXA) 40 mg DAILY PO 03/09/17 09:00 Prednisone (Deltasone) 20 mg DAILY PO 03/09/17 09:00 Pyridostigmine [place] (Mestinon) 120 mg TIDAC PO 03/09/17 08:00 UNV Sumatriptan Succinate (Imitrex) 50 mg DAILY PRN PO HEADACHE 03/08/17 19:45 Tramadol HCl (Ultram) 50 mg Q4H PRN PO PAIN 03/08/17 19:45 UNV Family History Father from pancreatic CA Mother with thyroid problems Social History Tobacco: smokes < 1PPD Alcohol: denies Illicit Drugs: denies Physical Exam Vital Signs Vital Signs Date Time Temp Pulse Resp B/P Pulse Ox O2 Delivery O2 Flow Rate FiO2 03/08/17 18:52 110 20 126/75 97 Nasal Cannula 5 03/08/17 17:25 92 22 124/75 96 Non-Rebreather 15 03/08/17 16:15 112 22 118/72 95 Room Air 2 03/08/17 13:50 110 20 03/08/17 13:39 98.6 106 24 125/72 94 Room Air Physical Exam GENERAL: Well-nourished, well-developed patient. SKIN: Warm and dry. HEAD: Normocephalic. EYES: No scleral icterus. No injection or drainage. NECK: Supple, trachea midline. No JVD or lymphadenopathy. CARDIOVASCULAR: Regular rate and rhythm without murmurs, gallops, or rubs. RESPIRATORY: Breath sounds equal bilaterally. No accessory muscle use. GASTROINTESTINAL: Abdomen soft, non-tender, nondistended. MUSCULOSKELETAL: No cyanosis, or edema. BACK: Nontender without obvious deformity. No CVA tenderness. EXTREMITIES: No clubbing cyanosis or edema Laboratory Laboratory Tests Test 03/08/17 03/08/17 03/08/17 03/08/17 14:20 16:25 17:30 17:51 White Blood Count 24.8 Red Blood Count 2.90 Hemoglobin 8.1 Hematocrit 25.2 Mean Corpuscular Volume 87.0 Mean Corpuscular Hemoglobin 28.1 Mean Corpuscular Hemoglobin 32.3 Concent Red Cell Distribution Width 18.4 Platelet Count 323 Mean Platelet Volume 7.8 Neutrophils (%) (Auto) 94.7 Lymphocytes (%) (Auto) 1.8 Monocytes (%) (Auto) 3.4 Eosinophils (%) (Auto) 0.0 Basophils (%) (Auto) 0.1 Neutrophils # (Auto) 23.5 Lymphocytes # (Auto) 0.5 Monocytes # (Auto) 0.8 Eosinophils # (Auto) 0.0 Basophils # (Auto) 0.0 CBC Comment DIFF FINAL Differential Comment Sodium Level 140 Potassium Level 3.3 Chloride Level 98 Carbon Dioxide Level 34.7 Anion Gap 7 Blood Urea Nitrogen 5 Creatinine 0.47 Estimat Glomerular Filtration 147 Rate Random Glucose 128 Calcium Level 9.4 Total Bilirubin 0.4 Aspartate Amino Transf 12 (AST/SGOT) Alanine Aminotransferase 34 (ALT/SGPT) Alkaline Phosphatase 73 Total Protein 6.5 Albumin 3.2 Lactic Acid Level 1.9 Urine Color YELLOW Urine Turbidity HAZY Urine pH 7.0 Urine Specific [place] 1.006 Urine Protein TRACE Urine Glucose (UA) NEG Urine Ketones NEG Urine Occult Blood SMALL Urine Nitrite NEG Urine Bilirubin NEG Urine Urobilinogen LESS THAN 2.0 Urine Leukocyte Esterase LARGE Urine RBC 4 Urine WBC 13 Urine Squamous Epithelial 1 Cells Urine Bacteria MOD Microscopic Urinalysis Comment CULTURE INDICATED Blood Gas Puncture Site RT RADIAL Blood Gas Patient Temperature 98.6 Blood Gas HCO3 33 Blood Gas Base Excess 7.6 Blood Gas Oxygen Saturation 91 Arterial Blood pH 7.40 Arterial Blood Partial 54 Pressure CO2 Arterial Blood Partial 69 Pressure O2 Arterial Blood Oxygen Content 10.3 Arterial Blood 3.3 Carboxyhemoglobin Arterial Blood Methemoglobin 0.3 Blood Gas Hemoglobin 8.0 Oxygen Delivery Device NASAL CANNULA Blood Gas Liter Flow 6 Date/Time Procedure Status Source Growth 03/08/17 17:30 Urine Culture Received Urine Clean Catch Pending 03/08/17 15:15 Aerobic Blood Culture Received Blood Peripheral Pending 03/08/17 15:15 Anaerobic Blood Culture Received Blood Peripheral Pending Result Diagram: 03/08/17 1420 03/08/17 1420 Imaging Last 24 hours Impressions Chest X-Ray 03/08/17 0000 Signed Impressions: Service Date/Time: Wednesday, March 08, 2017 14:11 - CONCLUSION: Underinflation with mild bibasilar opacity representing atelectasis or mild air space consolidation. No other acute finding is seen. Kory Wilson MD Assessment and Plan Assessment and Plan Myasthenia crisis - Admit patient to ICU - Neuro checks per unit protocol - IVIG per neurology recommendations - Monitor this and vital capacity daily - Monitor carefully for possible need of intubation Anxiety - Hold alprazolam due to weakness and lethargy - Monitor for symptoms of withdrawal - Seizure prophylaxis Chronic Anemia - Monitor H&H - Transfuse for hemoglobin less than 7 DVT GI prophylaxis - Teds SCDs subcutaneous heparin - Pepcid Critical Care: The total critical care time was 35 minutes. Time to perform other separately billable procedures was not included in the critical care time. Bam Grady MD March 08, 2017 19:43
[2017-03-08] MEDS ORDERED: SODIUM CHLORIDE 0.9% FLUSH 10 ML FLUSH IV FLUSH PRN (19:45)
[2017-03-08] MEDS ORDERED: CHLORHEXIDINE GLUCONATE 2 % 1 PACK (2 CLOTHS) TOP PRN (19:45)
[2017-03-08] MEDS ORDERED: SUMAtriptan SUCCINATE 50 MG TAB PO PRN (19:45)
[2017-03-08] MEDS ORDERED: LACTULOSE SYRUP 20 GM/30 ML CUP PO PRN (19:45)
[2017-03-08] MEDS ORDERED: MISCELLANEOUS NURSING INFORMATION XX SCH (19:45)
[2017-03-08] MEDS ORDERED: ACETAMINOPHEN 325 MG TAB PO PRN (19:45)
[2017-03-08] MEDS ORDERED: RESP: ALBUTEROL 2.5 MG/IPRATROPIUM 0.5 MG NEB (PRN) INH (19:45)
[2017-03-08] MEDS ORDERED: SENNOSIDES 8.6 MG TAB PO PRN (19:45)
[2017-03-08] MEDS ORDERED: MAGNESIUM HYDROXIDE SUSP 30 ML CUP PO PRN (19:45)
[2017-03-08] MEDS ORDERED: BISACODYL 10 MG SUPP RECTAL PRN (19:45)
[2017-03-08] MEDS ORDERED: MAGNESIUM OXIDE 400 MG TAB PO PRN (20:00)
[2017-03-08] MEDS ORDERED: POTASSIUM CHLORIDE 25 MEQ EFFERVESCENT TAB PO PRN (20:00)
[2017-03-08] MEDS ORDERED: POTASSIUM CHLOR 40 MEQ PREMIX 100 ML IV PRN ×2 (20:00)
[2017-03-08] MEDS ORDERED: POTASSIUM CHLOR 20 MEQ PREMIX 100 ML IV PRN ×2 (20:00)
[2017-03-08] MEDS ORDERED: PILL SPLITTER OTHER PRN (20:00)
[2017-03-08] MEDS ORDERED: SODIUM PHOSPHATE INJ 30 MMOL in SODIUM CHLOR 0.9% 250 ML INJ 240 ML IV PRN (20:00)
[2017-03-08] MEDS ORDERED: MAGNESIUM SULFATE INJ 4 GM in SODIUM CHLORIDE 0.9% INJ 92 ML IV PRN (20:00)
[2017-03-08] MEDS ORDERED: POTASSIUM PHOSPHATE MONOBASIC 500 MG TAB PO/TUBE PRN (20:00)
[2017-03-08] MEDS ORDERED: MAGNESIUM SULFATE INJ 2 GM in SODIUM CHLORIDE 0.9% INJ 96 ML IV PRN (20:00)
[2017-03-08] MEDS ORDERED: SODIUM CHLORIDE 0.9% FLUSH 10 ML FLUSH IV FLUSH SCH (21:00)
[2017-03-08] MEDS: DOCUSATE SODIUM 50 MG/SENNA 8.6 MG TAB PO SCH (21:10)
[2017-03-08] MEDS: AMITRIPTYLINE HCL 25 MG TAB PO SCH (21:10)
[2017-03-08] MEDS: ENOXAPARIN SODIUM 30 MG/0.3 ML SYRINGE SQ SCH (21:11)
[2017-03-08] MEDS: SODIUM CHLORIDE 0.9% FLUSH 10 ML FLUSH SCH (21:13)
[2017-03-09] VITALS (13 sets, daily range): BP systolic 99–116; BP diastolic 63–89; PULSE 83–131; RESP 16–20; TEMP 98.2–98.9; O2SAT 95–100
[2017-03-09] MEDS: AZTREONAM INJ 1,000 MG in SODIUM CHLORIDE 0.9% INJ 100 ML IV SCH ×4 (00:06→23:28)
[2017-03-09] MEDS: ACETAMINOPHEN 1000 MG/100 ML VIAL IV PRN ×3 (00:53→16:24)
[2017-03-09] MEDS: CHLORHEXIDINE GLUCONATE 2 % 1 PACK (2 CLOTHS) TOP SCH (04:00)
[2017-03-09 04:50] LABS: AUTOMATED NEUTROPHIL # 16.3 TH/MM3 (1.8-7.7); BASOPHIL # 0.1 TH/MM3 (0-0.2); BASOPHIL % 0.4 % (0.0-2.0); EOSINOPHIL % 0.3 % (0.0-4.0); HEMO FLAGS DIFF FINAL; LYMPH % 4.5 % (9.0-44.0); LYMPHOCYTE # 0.8 TH/MM3 (1.0-4.8); MEAN CELL VOLUME 87.5 FL (80.0-100.0); MEAN CORPUSCULAR HEMOGLOBIN 28.5 PG (27.0-34.0); MEAN CORPUSCULAR HGB CONC 32.6 % (32.0-36.0); MONO % 2.6 % (0.0-8.0); NEUT % 92.2 % (16.0-70.0); PLATELET COUNT 323 TH/MM3 (150-450); RED BLOOD COUNT 2.74 MIL/MM3 (4.00-5.30); RED CELL DISTRIBUTION WIDTH 18.5 % (11.6-17.2); WHITE BLOOD COUNT 17.6 TH/MM3 (4.0-11.0)
[2017-03-09 05:04] LABS: ALKALINE PHOSPHATASE 74 U/L (45-117); ALT (GPT) 27 U/L (10-53); ANION GAP 2 MEQ/L (5-15); AST (GOT) 9 U/L (15-37); BICARBONATE 37.1 MEQ/L (21.0-32.0); BLOOD UREA NITROGEN 9 MG/DL (7-18); CHLORIDE 103 MEQ/L (98-107); GLOMERULAR FILTRATION RATE 246 ML/MIN (>89); MAGNESIUM 1.8 MG/DL (1.5-2.5); POTASSIUM 4.5 MEQ/L (3.5-5.1); SODIUM (NA) 142 MEQ/L (136-145); TOTAL BILIRUBIN ADULT 0.5 MG/DL (0.2-1.0)
[2017-03-09] MEDS: azaTHIOprine 50 MG TAB PO SCH (05:41)
[2017-03-09] MEDS: POTASSIUM PHOSPHATE MONOBASIC 500 MG TAB PO PRN ×2 (05:58→11:17)
[2017-03-09] MEDS: predniSONE 20 MG TAB PO SCH (07:49)
[2017-03-09] MEDS: CITALOPRAM HYDROBROMIDE 40 MG TAB PO SCH (07:49)
[2017-03-09] MEDS: DOCUSATE SODIUM 50 MG/SENNA 8.6 MG TAB PO SCH ×2 (07:49→22:01)
[2017-03-09] MEDS: SODIUM CHLORIDE 0.9% FLUSH 10 ML FLUSH SCH ×2 (07:49→21:00)
[2017-03-09] MEDS: PYRIDOSTIGMINE BROMIDE 60 MG TAB PO SCH ×3 (07:59→17:04)
--- NOTE | 2017-03-09 08:52 | HHI.PR ---
Objective Vital Signs Date Time Temp Pulse Resp B/P Pulse Ox O2 Delivery O2 Flow Rate FiO2 03/09/17 06:00 131 03/09/17 04:00 98.2 97 16 116/71 99 03/09/17 04:00 97 03/09/17 02:00 101 03/09/17 00:00 98.5 118 16 115/89 95 03/09/17 00:00 118 03/08/17 22:00 98 03/08/17 20:00 98.0 97 16 121/58 97 03/08/17 20:00 97 03/08/17 18:52 110 20 126/75 97 Nasal Cannula 03/08/17 18:49 97.9 89 20 120/70 98 03/08/17 17:25 92 22 124/75 96 Non-Rebreather 03/08/17 16:15 112 22 118/72 95 Room Air 2 03/08/17 13:50 110 20 03/08/17 13:39 98.6 106 24 125/72 94 Room Air I/O 03/08/17 03/08/17 03/08/17 03/09/17 03/09/17 03/09/17 07:00 15:00 23:00 07:00 15:00 23:00 Intake Total 1025 ml 1153 ml Output Total 400 ml 800 ml Balance 625 ml 353 ml Intake Oral 500 ml 960 ml IV Total 525 ml 193 ml Output Urine Total 400 ml 800 ml # Voids 1 2 # Bowel Movements 0 1 Result Diagram: 03/09/17 0355 03/09/17 0615 Objective Remarks looks a little better this am voice strong finger ext 5 tricep bilat 4+ today Assessment and Plan Assessment and Plan imp MG looking better today cont ivig bmp nl today add low dose xanax Jayce Dover MD March 09, 2017 08:52
[2017-03-09] MEDS: ALPRAZolam 0.25 MG TAB PO SCH ×3 (09:00→22:01)
[2017-03-09] MEDS: INSULIN NovoLIN REGULAR SUPPLEMENTAL SCALE SQ SCH ×3 (09:00→21:00)
--- NOTE | 2017-03-09 09:13 | HHI.CCPN ---
Subjective Remarks/Hospital Course 41-year-old female with a long history of myasthenia gravis and multiple admissions for myasthenic crisis presents with generalized weakness worsening over the past week, constant, severe to the point where she is not able to walk around independently and has to hold on to her family for support. She was just hospitalized for [address] [facility] in their intensive care unit and was intubated on a ventilator for 4 days. At that time she has had plasmapheresis. She feels like she never got any better after that hospitalization. She says that IVIG really works for her. She sees Dr. Banuelos who is her neurologist. He recommended IVIG 2-3 times per month but her insurance would not pay for it. 03/09 Patient is lying in bed in NAD. s/p IVIG last night. Afebrile. Objective Vital Signs Date Time Temp Pulse Resp B/P Pulse Ox O2 Delivery O2 Flow Rate FiO2 03/09/17 06:00 131 03/09/17 04:00 98.2 16 116/71 99 03/08/17 18:52 Nasal Cannula 5 Intake and Output 03/08/17 03/08/17 03/09/17 08:00 16:00 00:00 Intake Total 1025 ml Output Total 400 ml Balance 625 ml Result Diagram: 03/09/17 0355 03/09/17 0615 Other Results Laboratory Tests Test 03/08/17 03/08/17 03/08/17 03/08/17 14:20 16:25 17:30 17:51 White Blood Count 24.8 TH/MM3 Red Blood Count 2.90 MIL/MM3 Hemoglobin 8.1 GM/DL Hematocrit 25.2 % Mean Corpuscular Volume 87.0 FL Mean Corpuscular Hemoglobin 28.1 PG Mean Corpuscular Hemoglobin 32.3 % Concent Red Cell Distribution Width 18.4 % Platelet Count 323 TH/MM3 Mean Platelet Volume 7.8 FL Neutrophils (%) (Auto) 94.7 % Lymphocytes (%) (Auto) 1.8 % Monocytes (%) (Auto) 3.4 % Eosinophils (%) (Auto) 0.0 % Basophils (%) (Auto) 0.1 % Neutrophils # (Auto) 23.5 TH/MM3 Lymphocytes # (Auto) 0.5 TH/MM3 Monocytes # (Auto) 0.8 TH/MM3 Eosinophils # (Auto) 0.0 TH/MM3 Basophils # (Auto) 0.0 TH/MM3 CBC Comment DIFF FINAL Differential Comment Sodium Level 140 MEQ/L Potassium Level 3.3 MEQ/L Chloride Level 98 MEQ/L Carbon Dioxide Level 34.7 MEQ/L Anion Gap 7 MEQ/L Blood Urea Nitrogen 5 MG/DL Creatinine 0.47 MG/DL Estimat Glomerular Filtration 147 ML/MIN Rate Random Glucose 128 MG/DL Calcium Level 9.4 MG/DL Phosphorus Level 2.3 MG/DL Total Bilirubin 0.4 MG/DL Aspartate Amino Transf 12 U/L (AST/SGOT) Alanine Aminotransferase 34 U/L (ALT/SGPT) Alkaline Phosphatase 73 U/L Total Protein 6.5 GM/DL Albumin 3.2 GM/DL Lactic Acid Level 1.9 mmol/L Urine Color YELLOW Urine Turbidity HAZY Urine pH 7.0 Urine Specific [place] 1.006 Urine Protein TRACE mg/dL Urine Glucose (UA) NEG mg/dL Urine Ketones NEG mg/dL Urine Occult Blood SMALL Urine Nitrite NEG Urine Bilirubin NEG Urine Urobilinogen LESS THAN 2.0 MG/DL Urine Leukocyte Esterase LARGE Urine RBC 4 /hpf Urine WBC 13 /hpf Urine Squamous Epithelial 1 /hpf Cells Urine Bacteria MOD /hpf Microscopic Urinalysis Comment CULTURE INDICATED Blood Gas Puncture Site RT RADIAL Blood Gas Patient Temperature 98.6 Blood Gas HCO3 33 mmol/L Blood Gas Base Excess 7.6 mmol/L Blood Gas Oxygen Saturation 91 % Arterial Blood pH 7.40 Arterial Blood Partial 54 mmHg Pressure CO2 Arterial Blood Partial 69 mmHG Pressure O2 Arterial Blood Oxygen Content 10.3 Vol % Arterial Blood 3.3 % Carboxyhemoglobin Arterial Blood Methemoglobin 0.3 % Blood Gas Hemoglobin 8.0 G/DL Oxygen Delivery Device NASAL CANNULA Blood Gas Liter Flow 6 L/M Test 03/08/17 03/09/17 03/09/17 20:00 03:55 06:15 Nasal Screen MRSA (PCR) MRSA NOT DETECTED White Blood Count 17.6 TH/MM3 Red Blood Count 2.74 MIL/MM3 Hemoglobin 7.8 GM/DL Hematocrit 24.0 % Mean Corpuscular Volume 87.5 FL Mean Corpuscular Hemoglobin 28.5 PG Mean Corpuscular Hemoglobin 32.6 % Concent Red Cell Distribution Width 18.5 % Platelet Count 323 TH/MM3 Mean Platelet Volume 7.7 FL Neutrophils (%) (Auto) 92.2 % Lymphocytes (%) (Auto) 4.5 % Monocytes (%) (Auto) 2.6 % Eosinophils (%) (Auto) 0.3 % Basophils (%) (Auto) 0.4 % Neutrophils # (Auto) 16.3 TH/MM3 Lymphocytes # (Auto) 0.8 TH/MM3 Monocytes # (Auto) 0.5 TH/MM3 Eosinophils # (Auto) 0.0 TH/MM3 Basophils # (Auto) 0.1 TH/MM3 CBC Comment DIFF FINAL Differential Comment Sodium Level 142 MEQ/L Potassium Level 4.5 MEQ/L Chloride Level 103 MEQ/L Carbon Dioxide Level 37.1 MEQ/L Anion Gap 2 MEQ/L Blood Urea Nitrogen 9 MG/DL Creatinine 0.30 MG/DL Estimat Glomerular Filtration 246 ML/MIN Rate Random Glucose 66 MG/DL 73 MG/DL Calcium Level 9.1 MG/DL Phosphorus Level 1.6 MG/DL Magnesium Level 1.8 MG/DL Total Bilirubin 0.5 MG/DL Aspartate Amino Transf 9 U/L (AST/SGOT) Alanine Aminotransferase 27 U/L (ALT/SGPT) Alkaline Phosphatase 74 U/L Total Protein 5.8 GM/DL Albumin 2.6 GM/DL Imaging Last Impressions Chest X-Ray 03/08/17 0000 Signed Impressions: Service Date/Time: Wednesday, March 08, 2017 14:11 - CONCLUSION: Underinflation with mild bibasilar opacity representing atelectasis or mild air space consolidation. No other acute finding is seen. Kory Wilson MD Objective Remarks GENERAL: Well-nourished, well-developed patient. SKIN: Warm and dry. HEAD: Normocephalic. EYES: No scleral icterus. No injection or drainage. NECK: Supple, trachea midline. No JVD or lymphadenopathy. CARDIOVASCULAR: Regular rate and rhythm without murmurs, gallops, or rubs. RESPIRATORY: Breath sounds equal bilaterally. No accessory muscle use. GASTROINTESTINAL: Abdomen soft, non-tender, nondistended. MUSCULOSKELETAL: No cyanosis, or edema. BACK: Nontender without obvious deformity. No CVA tenderness. EXTREMITIES: No clubbing cyanosis or edema A/P Assessment and Plan 1)Resp Insuff 2)Myasthenia crisis 3)Leukocytosis...trending down 4)Anemia 5)Anxiety 6)UTI Neuro: Monitor neuro status.s/p IV IG x 1bag yesterday -Will get 1 bag daily -5 bags total. Neuro is following-Dr. Dover On Mestinon, Imuran and Prednisone - Neuro checks per unit protocol Pulm: Continue with oxygen keep sat >92% Monitor VC and NIF. CV:Monitor HR and BP keep MAP>65mmHg : Monitor renal function, electrolytes replacement per protocol GI: On PO diet ID: Continue with abx ( Aztreonam)monitor for signs of infections. 03/08 urine cxs: GNR Heme: Monitor CBC Endo: SSI with accuchecks GI prophylaxis-place on Pepcid DVT prophylaxis-On Lovenox level 3 Tj Stauffer MD March 09, 2017 09:13
[2017-03-09] MEDS ORDERED: DEXTROSE 50% IN WATER 50 ML VIAL(D50) IV PRN (09:15)
[2017-03-09] MEDS ORDERED: GLUCAGON 1 MG/ML VIAL OTHER PRN (09:15)
[2017-03-09] MEDS: FAMOTIDINE 20 MG TAB PO SCH ×2 (09:25→22:00)
[2017-03-09] MEDS: DEXT 5%-NACL 0.9% 1000 ML INJ 1,000 ML IV SCH ×2 (09:25→22:44)
--- NOTE | 2017-03-09 16:44 | MB ---
cc: BRITT GARCIA MD DATE OF CONSULTATION 03/09/[address] Jayce Dover. REASON FOR CONSULTATION Pulmonary management. HISTORY OF THE PRESENT ILLNESS Ms. Rodríguez is a pleasant 41-year-old white female with history of myasthenia gravis, anxiety, depression, migraine headache. The patient recently was in another hospital and received IVIG treatment and she feels that she did not get any better. She came over here because of generalized weakness. She was evaluated by neurologist. She was started on IVIG and she feels better. She has a little cough, not able to bring up any phlegm. Does not have any fever or chills. No night sweats. She is on 2 liters nasal cannula. She feels well. PAST MEDICAL HISTORY Significant for: 1. History of myasthenia gravis. 2. Migraine headache. MEDICATIONS She is currently takin. Famotidine 10 mg twice a day. 2. Citalopram 40 milligrams daily. 3. Prednisone 20 mg daily. 4. Xanax 0.25 milligrams q.6h. 5. Novolin insulin sliding scale. 6. Mestinon 120 milligrams three times a day. 7. Azathioprine 75 milligrams daily. 8. Aztreonam 1 gram q.8h. 9. Acetaminophen 1000 milligrams as needed IV. 10. Amitriptyline 25 milligrams. 11. Lovenox 30 milligrams q.24h. 12. Tramadol 50 milligrams q.4h as needed. 13. IV immunoglobulin. 14. Benadryl 25 milligrams once a day. ALLERGIES SHE IS ALLERGIC TO PENICILLIN AND PHENERGAN. SOCIAL HISTORY She is single. Has a history of smoking about a pack a day. No alcohol abuse. She is disabled. FAMILY HISTORY She is , has three children. REVIEW OF SYSTEMS Normally she is up, around and active. No DVT or pulmonary embolism. No seizure, stroke or epilepsy. No asthma or emphysema. PHYSICAL EXAMINATION GENERAL: Well built, well-nourished female not in any acute distress. She is on 2 liters nasal cannula. Saturation 99% and she is comfortable. VITAL SIGNS: Blood pressure 116/71, heart rate 97, respirations 16, temperature 98.2. HEENT: Pupils are equal and reactive to light. Oral mucosa, nasal mucosa normal. NECK: Supple. JVP not raised. CHEST: Air entry equal bilaterally. No rhonchi. CARDIOVASCULAR: S1, S2 normal. ABDOMEN: Soft, nondistended. Bowel sounds are present. EXTREMITIES: No edema. CENTRAL NERVOUS SYSTEM: She is alert and oriented times three. No focal deficit. LABORATORY DATA WBC 17.6, hemoglobin 7.8, hematocrit 24, MCV 87, platelet count 323. Sodium 142, potassium 4.5, chloride 103, CO2 37, BUN 9, creatinine 0.30. Blood gas on 6 liters nasal cannula pH 7.40 pCO2 54, pO2 69. She is weaned down to 2 liters nasal cannula. IMAGING Her chest x-ray shows under inflation with basilar atelectasis. IMPRESSION 1. Myasthenia gravis. 2. Nicotine use. 3. Mild atelectasis. 4. Migraine headache. PLAN I discussed with the patient she is getting IV immunoglobulin and she is also on Mestinon and Imuran. Continue antibiotics. Encourage her to use Acapella and incentive spirometry. Further treatment will depend on the course in the hospital. Thank you Dr. Dover for this consultation. MD JOURDAN Dowd/ALLAN /11:44 AM /4:14 PM
[2017-03-09] MEDS: diphenhydrAMINE HCL 25 MG CAP PO SCH (17:03)
[2017-03-09] MEDS: ACETAMINOPHEN 325 MG TAB PO SCH (17:04)
[2017-03-09] MEDS: SODIUM CHLORID 0.9% 500 ML INJ 500 ML IV SCH (17:04)
[2017-03-09] MEDS: DEXTROSE 5% IN WATE 500 ML INJ 500 ML OTHER SCH (19:13)
[2017-03-09] MEDS: IMMUNE GLOBULIN INJ 20 GM in SYRINGE/BAG 1 EA IV SCH (19:14)
[2017-03-09] MEDS: RESP: ALBUTEROL 2.5 MG/IPRATROPIUM 0.5 MG NEB (SCH) NEB (21:11)
[2017-03-09] MEDS: AMITRIPTYLINE HCL 25 MG TAB PO SCH (22:01)
[2017-03-09] MEDS: ENOXAPARIN SODIUM 30 MG/0.3 ML SYRINGE SQ SCH ×2 (22:02→22:43)
[2017-03-10] VITALS (21 sets, daily range): BP systolic 106–145; BP diastolic 60–94; PULSE 90–153; RESP 10–35; TEMP 98–98.8; O2SAT 90–100
[2017-03-10] MEDS: ACETAMINOPHEN 1000 MG/100 ML VIAL IV PRN ×2 (00:03→21:21)
[2017-03-10] MEDS: INSULIN NovoLIN REGULAR SUPPLEMENTAL SCALE SQ SCH ×4 (03:00→21:00)
[2017-03-10] MEDS: CHLORHEXIDINE GLUCONATE 2 % 1 PACK (2 CLOTHS) TOP SCH (04:00)
[2017-03-10] MEDS: RESP: ALBUTEROL 2.5 MG/IPRATROPIUM 0.5 MG NEB (SCH) NEB ×4 (04:12→20:53)
[2017-03-10] MEDS: DEXTROSE 5% IN WATE 500 ML INJ 500 ML OTHER SCH ×2 (04:15→20:55)
[2017-03-10] MEDS: ALPRAZolam 0.25 MG TAB PO SCH ×4 (05:13→21:19)
[2017-03-10] MEDS: azaTHIOprine 50 MG TAB PO SCH (05:13)
--- NOTE | 2017-03-10 07:28 | HHI.CCPN ---
Subjective Remarks/Hospital Course 41-year-old female with a long history of myasthenia gravis and multiple admissions for myasthenic crisis presents with generalized weakness worsening over the past week, constant, severe to the point where she is not able to walk around independently and has to hold on to her family for support. She was just hospitalized for 10 days at [facility] in their intensive care unit and was intubated on a ventilator for 4 days. At that time she has had plasmapheresis. She feels like she never got any better after that hospitalization. She says that IVIG really works for her. She sees Dr. Banuelos who is her neurologist. He recommended IVIG 2-3 times per month but her insurance would not pay for it. 03/09 Patient is lying in bed in NAD. s/p IVIG last night. Afebrile. Subjective 03/10: Afebrile. Currently resting in bed in no acute distress on 3 L nasal cannula. Requesting medication for her migraine headaches which she states she gets whenever she receives IVIG. Positive BM. Tolerating diet. Objective Vital Signs Date Time Temp Pulse Resp B/P Pulse Ox O2 Delivery O2 Flow Rate FiO2 03/10/17 06:14 18 03/10/17 06:00 102 03/10/17 04:00 98.8 110/72 90 03/09/17 21:13 Nasal Cannula 2.00 Intake and Output 03/09/17 03/09/17 03/10/17 08:00 16:00 00:00 Intake Total 1153 ml 904 ml 1145 ml Output Total 800 ml 1575 ml Balance 353 ml -671 ml 1145 ml Result Diagram: 03/09/17 0355 03/09/17 0615 Other Results Microbiology Date/Time Procedure Status Source Growth 03/08/17 17:30 Urine Culture - Preliminary Resulted Urine Clean Catch Gram Negative Silverio 03/08/17 15:15 Aerobic Blood Culture - Preliminary Resulted Blood Peripheral NO GROWTH IN 1 DAY 03/08/17 15:15 Anaerobic Blood Culture - Preliminary Resulted Blood Peripheral NO GROWTH IN 1 DAY Imaging Last Impressions Chest X-Ray 03/08/17 0000 Signed Impressions: Service Date/Time: Wednesday, March 08, 2017 14:11 - CONCLUSION: Underinflation with mild bibasilar opacity representing atelectasis or mild air space consolidation. No other acute finding is seen. Kory Wilson MD Objective Remarks GENERAL: 41-year-old female, resting in bed in no acute distress SKIN: Warm and dry. No rash HEAD: Normocephalic. Atraumatic. EYES: Lateral disconjugate gaze with horizontal nystagmus noted. Pupils are approximately 2-3 mm bilaterally and brisk. No scleral icterus. No injection or drainage. NECK: Supple, trachea midline. No JVD or lymphadenopathy. CARDIOVASCULAR: Tachycardic, RRR. S1, S2. No S4 no murmur rubs. RESPIRATORY: Few crackles patient right greater than left lower lobes. No end expiratory wheeze. GASTROINTESTINAL: Abdomen soft, non-tender, nondistended. MUSCULOSKELETAL: No skin peripheral edema BACK: Nontender without obvious deformity. No CVA tenderness. NEURO: Deep tendon reflexes are equal and symmetric bilaterally. Strength is 4.5+ out of 5 bilateral upper and lower extremity. Normal sensation. A/P Assessment and Plan Neuro/Psych: Myasthenia crisis Chronic benzodiazepine use Migraine headache Anxiety Day #3 IVIG 20 g of 5 planned On chronic prednisone 20 mg by mouth daily and azathioprine 75 mg by mouth daily for MG Continue Mestinon 120 mg by mouth 3 times a day On Celexa 40 mg daily for depression home. On Elavil 25 mg daily at bedtime for anxiety. Ultram 50 mg as needed for pain. Followed by neurology/Dr. Shirley Imitrex 50 mg as needed for migraine On Ofirmev IV 650 g every 6 hours when necessary CV: Currently not requiring any antihypertensives and/or vasopressors. On D5 normal saline at 75 cc an hour. Resp: Mild respiratory insufficiency Monitor NIF every 6 hours. Notify if less than -25-30 Monitor vital capacity every 6 hours. Notify if less than 15 mL/kg Nasal cannula to maintain saturations greater than equal to 92% Incentive spirometry while awake GI: Advance diet as tolerated Actively having bowel movements : Ledezma if indicated Endo: Sliding-scale insulin to maintain euglycemia Renal: Monitor urine output Accurate I's and O's Heme: Leukocytosis - infectious process/minus steroid Follow CBC daily. Monitor trends. Noted on prednisone ID: Urinary tract infection Day #3 aztreonam Avoid fluoroquinolones and vancomycin with current myasthenia crisis FEN: Replace electrolytes as clinically indicated MSK: Physical therapy evaluate and treat Access - Utilize peripheral IV. Central line if indicated Prophylaxis - GI - Protonix - DVT - SCD/Lovenox subcutaneous Level III Chirag Diaz MD March 10, 2017 07:28
[2017-03-10 07:39] LABS: AUTOMATED NEUTROPHIL # 9.3 TH/MM3 (1.8-7.7); BASOPHIL # 0.1 TH/MM3 (0-0.2); BASOPHIL % 0.6 % (0.0-2.0); EOSINOPHIL # 0.1 TH/MM3 (0-0.4); EOSINOPHIL % 0.5 % (0.0-4.0); HEMATOCRIT 24.1 % (35.0-46.0); HEMO FLAGS DIFF FINAL; LYMPH % 11.2 % (9.0-44.0); LYMPHOCYTE # 1.2 TH/MM3 (1.0-4.8); MEAN CELL VOLUME 87.9 FL (80.0-100.0); MEAN CORPUSCULAR HEMOGLOBIN 28.9 PG (27.0-34.0); MEAN CORPUSCULAR HGB CONC 32.9 % (32.0-36.0); NEUT % 84.7 % (16.0-70.0); PLATELET COUNT 332 TH/MM3 (150-450); RED BLOOD COUNT 2.74 MIL/MM3 (4.00-5.30); RED CELL DISTRIBUTION WIDTH 18.9 % (11.6-17.2); WHITE BLOOD COUNT 10.9 TH/MM3 (4.0-11.0)
[2017-03-10] MEDS: FAMOTIDINE 20 MG TAB PO SCH ×2 (07:54→21:19)
[2017-03-10] MEDS: CITALOPRAM HYDROBROMIDE 40 MG TAB PO SCH (07:54)
[2017-03-10] MEDS: DOCUSATE SODIUM 50 MG/SENNA 8.6 MG TAB PO SCH ×2 (07:54→21:19)
[2017-03-10] MEDS: AZTREONAM INJ 1,000 MG in SODIUM CHLORIDE 0.9% INJ 100 ML IV SCH ×2 (07:55→15:54)
[2017-03-10] MEDS: predniSONE 20 MG TAB PO SCH (07:55)
[2017-03-10] MEDS: PYRIDOSTIGMINE BROMIDE 60 MG TAB PO SCH ×3 (07:55→15:54)
--- NOTE | 2017-03-10 07:55 | HHI.PR ---
Objective Vital Signs Date Time Temp Pulse Resp B/P Pulse Ox O2 Delivery O2 Flow Rate FiO2 03/10/17 06:14 18 03/10/17 06:00 102 03/10/17 04:00 98.8 96 27 110/72 90 03/10/17 04:00 96 03/10/17 03:00 90 31 106/72 98 03/10/17 03:00 90 03/10/17 02:00 97 30 126/79 100 03/10/17 02:00 97 03/10/17 01:00 113 03/10/17 01:00 113 29 117/75 97 03/10/17 00:33 20 03/10/17 00:00 99 03/10/17 00:00 98.7 99 34 126/87 97 03/09/17 22:00 83 03/09/17 21:13 100 Nasal Cannula 2.00 03/09/17 20:00 115 03/09/17 20:00 98.8 115 18 114/63 95 03/09/17 18:00 121 03/09/17 16:00 98.9 103 18 99/71 97 03/09/17 16:00 103 03/09/17 14:00 97 03/09/17 12:00 98.9 100 20 106/68 99 03/09/17 12:00 100 03/09/17 10:00 112 03/09/17 08:00 122 03/09/17 08:00 98.6 122 20 107/63 95 I/O 03/09/17 03/09/17 03/09/17 03/10/17 03/10/17 03/10/17 07:00 15:00 23:00 07:00 15:00 23:00 Intake Total 1153 ml 904 ml 1145 ml 1304 ml Output Total 800 ml 1575 ml Balance 353 ml -671 ml 1145 ml 1304 ml Intake Oral 960 ml 720 ml 350 ml IV Total 193 ml 184 ml 1145 ml 954 ml Output Urine Total 800 ml 1575 ml # Voids 2 1 3 # Bowel Movements 1 4 0 0 Result Diagram: 03/10/17 0700 03/09/17 0615 Objective Remarks looks a lot better this am voice strong tricep and ip 5/5 bilat Assessment and Plan Assessment and Plan imp MG looking better today cont ivig #3 today bmp nl today low dose xanax she looks so much better today neurowise Jayce Etienne MD March 10, 2017 07:55
[2017-03-10] MEDS: SODIUM CHLORIDE 0.9% FLUSH 10 ML FLUSH SCH ×2 (07:56→21:19)
[2017-03-10] MEDS: SUMAtriptan SUCCINATE 25 MG TAB PO PRN (07:56)
[2017-03-10 08:13] LABS: BICARBONATE 34.3 MEQ/L (21.0-32.0); MAGNESIUM 1.8 MG/DL (1.5-2.5); POTASSIUM 3.8 MEQ/L (3.5-5.1)
[2017-03-10] MEDS: NYSTATIN 100,000 U/GM PWD 15 GM BTL TOPICAL SCH ×2 (09:00→21:21)
[2017-03-10] MEDS: traMADol HCL 50 MG TAB PO PRN ×2 (11:02→14:57)
[2017-03-10] MEDS: DEXT 5%-NACL 0.9% 1000 ML INJ 1,000 ML IV SCH (11:54)
[2017-03-10] MEDS: SODIUM CHLORID 0.9% 500 ML INJ 500 ML IV SCH (17:08)
[2017-03-10] MEDS: diphenhydrAMINE HCL 25 MG CAP PO SCH (17:22)
[2017-03-10] MEDS: ACETAMINOPHEN 325 MG TAB PO SCH (17:22)
--- NOTE | 2017-03-10 20:24 | HHI.PR ---
Subjective Remarks 41 YOWF with MG,Migraine Feels much better Denies sob Uses acapella No Sp Objective Vital Signs Vital Signs Date Time Temp Pulse Resp B/P Pulse Ox O2 Delivery O2 Flow Rate FiO2 03/10/17 18:00 137 03/10/17 17:00 144 03/10/17 16:00 116 25 132/81 99 03/10/17 16:00 116 03/10/17 16:00 116 03/10/17 15:00 116 03/10/17 15:00 116 10 119/85 97 03/10/17 15:00 116 03/10/17 14:00 121 03/10/17 14:00 121 26 109/60 97 03/10/17 14:00 121 03/10/17 14:00 121 03/10/17 14:00 121 26 109/60 97 03/10/17 13:00 131 03/10/17 13:00 131 03/10/17 13:00 131 128/94 03/10/17 13:00 131 128/94 03/10/17 13:00 131 03/10/17 12:00 123 03/10/17 12:00 123 03/10/17 12:00 123 24 121/80 96 03/10/17 12:00 123 03/10/17 12:00 123 24 121/80 96 03/10/17 11:01 153 03/10/17 11:01 153 35 145/91 91 03/10/17 11:01 153 35 145/91 91 03/10/17 11:01 153 03/10/17 11:01 153 03/10/17 10:00 112 03/10/17 10:00 112 03/10/17 10:00 112 25 119/73 98 03/10/17 10:00 112 25 119/73 98 03/10/17 10:00 112 03/10/17 09:07 100 Nasal Cannula 2.00 03/10/17 09:00 96 03/10/17 09:00 96 03/10/17 09:00 96 03/10/17 09:00 96 27 109/68 99 03/10/17 09:00 96 27 109/68 99 03/10/17 08:00 107 30 110/83 99 03/10/17 08:00 107 03/10/17 08:00 107 03/10/17 08:00 95 03/10/17 08:00 107 03/10/17 08:00 107 30 110/83 99 03/10/17 06:14 18 03/10/17 06:00 102 03/10/17 04:00 98.8 96 27 110/72 90 03/10/17 04:00 96 03/10/17 03:00 90 31 106/72 98 03/10/17 03:00 90 03/10/17 02:00 97 30 126/79 100 03/10/17 02:00 97 03/10/17 01:00 113 03/10/17 01:00 113 29 117/75 97 03/10/17 00:33 20 03/10/17 00:00 99 03/10/17 00:00 98.7 99 34 126/87 97 03/09/17 22:00 83 03/09/17 21:13 100 Nasal Cannula 2.00 I/O 03/09/17 03/09/17 03/09/17 03/10/17 03/10/17 03/10/17 07:00 15:00 23:00 07:00 15:00 23:00 Intake Total 1153 ml 904 ml 1145 ml 1304 ml 1842 ml Output Total 800 ml 1575 ml 2100 ml Balance 353 ml -671 ml 1145 ml 1304 ml -258 ml Intake Oral 960 ml 720 ml 350 ml 1200 ml IV Total 193 ml 184 ml 1145 ml 954 ml 642 ml Output Urine Total 800 ml 1575 ml 2100 ml # Voids 2 1 3 # Bowel Movements 1 4 0 0 2 Result Diagram: 03/10/17 0703/10/17 07 Objective Remarks GENERAL: WBWN WF,NAD SKIN: Warm and dry. HEAD: Normocephalic. EYES: No scleral icterus. No injection or drainage. NECK: Supple, trachea midline. No JVD or lymphadenopathy. CARDIOVASCULAR: Regular rate and rhythm without murmurs, gallops, or rubs. RESPIRATORY: Breath sounds equal bilaterally. No accessory muscle use. GASTROINTESTINAL: Abdomen soft, non-tender, nondistended. MUSCULOSKELETAL: No cyanosis, or edema. BACK: Nontender without obvious deformity. No CVA tenderness. A/P Assessment and Plan Myasthenia Gravis Atelactesis mild Migraine Anxiety PLAN: Cont Abx IS Aerosol nebs prn On Immunoglobulin, Imuran Alden Gonzalez MD March 10, 2017 20:24
[2017-03-10] MEDS: AMITRIPTYLINE HCL 25 MG TAB PO SCH (21:19)
[2017-03-10] MEDS: IMMUNE GLOBULIN INJ 20 GM in SYRINGE/BAG 1 EA IV SCH (22:23)
[2017-03-11] VITALS (19 sets, daily range): BP systolic 106–165; BP diastolic 60–98; PULSE 93–145; RESP 16–36; TEMP 96.4–98.1; O2SAT 92–98
[2017-03-11] MEDS: AZTREONAM INJ 1,000 MG in SODIUM CHLORIDE 0.9% INJ 100 ML IV SCH ×3 (00:18→15:02)
[2017-03-11] MEDS: DEXT 5%-NACL 0.9% 1000 ML INJ 1,000 ML IV SCH (00:18)
[2017-03-11] MEDS: traMADol HCL 50 MG TAB PO PRN ×4 (00:36→19:58)
[2017-03-11] MEDS: INSULIN NovoLIN REGULAR SUPPLEMENTAL SCALE SQ SCH ×4 (03:00→19:42)
[2017-03-11] MEDS: RESP: ALBUTEROL 2.5 MG/IPRATROPIUM 0.5 MG NEB (SCH) NEB ×2 (03:29→09:47)
[2017-03-11] MEDS: ALPRAZolam 0.25 MG TAB PO SCH ×4 (03:35→19:41)
[2017-03-11] MEDS: CHLORHEXIDINE GLUCONATE 2 % 1 PACK (2 CLOTHS) TOP SCH (03:41)
[2017-03-11] MEDS: ACETAMINOPHEN 1000 MG/100 ML VIAL IV PRN ×2 (03:41→19:50)
[2017-03-11 05:12] LABS: HEMATOCRIT 24.3 % (35.0-46.0); MEAN CELL VOLUME 89.8 FL (80.0-100.0); MEAN CORPUSCULAR HEMOGLOBIN 28.5 PG (27.0-34.0); MEAN CORPUSCULAR HGB CONC 31.7 % (32.0-36.0); PLATELET COUNT 300 TH/MM3 (150-450); REVIEW FLAG FINAL; WHITE BLOOD COUNT 7.5 TH/MM3 (4.0-11.0)
[2017-03-11 05:32] LABS: BICARBONATE 31.8 MEQ/L (21.0-32.0); MAGNESIUM 1.8 MG/DL (1.5-2.5); POTASSIUM 3.8 MEQ/L (3.5-5.1)
[2017-03-11] MEDS: azaTHIOprine 50 MG TAB PO SCH (05:41)
[2017-03-11] MEDS ORDERED: POTASSIUM CHLORIDE 20 MEQ CONTROLLED RELEASE TAB PO ONE (07:15)
--- NOTE | 2017-03-11 07:41 | HHI.CCPN ---
Subjective Remarks/Hospital Course 41-year-old female with a long history of myasthenia gravis and multiple admissions for myasthenic crisis presents with generalized weakness worsening over the past week, constant, severe to the point where she is not able to walk around independently and has to hold on to her family for support. She was just hospitalized for 10 days at [facility] in their intensive care unit and was intubated on a ventilator for 4 days. At that time she has had plasmapheresis. She feels like she never got any better after that hospitalization. She says that IVIG really works for her. She sees Dr. Banuelos who is her neurologist. He recommended IVIG 2-3 times per month but her insurance would not pay for it. 03/09 Patient is lying in bed in NAD. s/p IVIG last night. Afebrile. 03/10: Afebrile. Currently resting in bed in no acute distress on 3 L nasal cannula. Requesting medication for her migraine headaches which she states she gets whenever she receives IVIG. Positive BM. Tolerating diet. Subjective 03/11: Still complaining of a migraine headache and requesting additional Imitrex. Tolerating diet. NIF -40. No indication for emergent intubation Objective Vital Signs Date Time Temp Pulse Resp B/P Pulse Ox O2 Delivery O2 Flow Rate FiO2 03/11/17 06:00 103 03/11/17 04:11 18 03/11/17 04:00 98.1 112/68 98 03/10/17 20:55 21 03/10/17 09:07 Nasal Cannula 2.00 Intake and Output 03/10/17 03/10/17 03/11/17 08:00 16:00 00:00 Intake Total 1304 ml 1842 ml 1769 ml Output Total 2100 ml Balance 1304 ml -258 ml 1769 ml Result Diagram: 03/11/17 0340 03/11/17 0340 Other Results Microbiology Date/Time Procedure Status Source Growth 03/08/17 17:30 Urine Culture - Final Complete Urine Clean Catch Escherichia Coli 03/08/17 15:15 Aerobic Blood Culture - Preliminary Resulted Blood Peripheral NO GROWTH IN 2 DAYS 03/08/17 15:15 Anaerobic Blood Culture - Preliminary Resulted Blood Peripheral NO GROWTH IN 2 DAYS Imaging Last Impressions Chest X-Ray 03/08/17 0000 Signed Impressions: Service Date/Time: Wednesday, March 08, 2017 14:11 - CONCLUSION: Underinflation with mild bibasilar opacity representing atelectasis or mild air space consolidation. No other acute finding is seen. Kory Wilson MD Objective Remarks GENERAL: 41-year-old female, resting in bed in no acute distress SKIN: Warm and dry. No rash HEAD: Normocephalic. Atraumatic. EYES: Lateral disconjugate gaze with horizontal nystagmus noted. Pupils are approximately 2-3 mm bilaterally and brisk. No scleral icterus. No injection or drainage. NECK: Supple, trachea midline. No JVD or lymphadenopathy. CARDIOVASCULAR: Tachycardic, RRR. S1, S2. No S4 no murmur rubs. RESPIRATORY: Few crackles patient right greater than left lower lobes. No end expiratory wheeze. GASTROINTESTINAL: Abdomen soft, non-tender, nondistended. MUSCULOSKELETAL: No skin peripheral edema BACK: Nontender without obvious deformity. No CVA tenderness. NEURO: Deep tendon reflexes are equal and symmetric bilaterally. Strength is 4.5+ out of 5 bilateral upper and lower extremity. Normal sensation. A/P Assessment and Plan Neuro/Psych: Myasthenia crisis Chronic benzodiazepine use Migraine headache Anxiety Day #4 IVIG 20 g of 5 planned On chronic prednisone 20 mg by mouth daily and azathioprine 75 mg by mouth daily for MG Continue Mestinon 120 mg by mouth 3 times a day On Celexa 40 mg daily for depression home. On Elavil 25 mg daily at bedtime for anxiety. Ultram 50 mg as needed for pain. Followed by neurology/Dr. Shirley Imitrex 50 mg as needed for migraine. May repeat in 2 hours. Maximum 200 mg daily On Ofirmev IV 650 g every 6 hours when necessary CV: Currently not requiring any antihypertensives and/or vasopressors. On D5 normal saline at 75 cc an hour.. Switch to normal saline at 42 cc an hour Resp: Mild respiratory insufficiency Monitor NIF every 6 hours. Notify if less than -25-30 red last -40 Monitor vital capacity every 6 hours. Notify if less than 15 mL/kg Nasal cannula to maintain saturations greater than equal to 92% Incentive spirometry while awake GI: Advance diet as tolerated Actively having bowel movements : Ledezma if indicated Endo: Sliding-scale insulin to maintain euglycemia Renal: Monitor urine output Accurate I's and O's Heme: Leukocytosis - infectious process/minus steroid Follow CBC daily. Monitor trends. Noted on prednisone ID: Escherichia coli. Urinary tract infection Day #4 aztreonam Avoid fluoroquinolones and vancomycin with current myasthenia crisis FEN: Hypo-magnesium 2 g mag sulfate IV 1 now. Replace electrolytes as clinically indicated MSK: Physical therapy evaluate and treat Access - Utilize peripheral IV. Central line if indicated Prophylaxis - GI - Protonix - DVT - SCD/Lovenox subcutaneous Level II Chirag Diaz MD Mar 11, 2017 07:41
[2017-03-11] MEDS: DOCUSATE SODIUM 50 MG/SENNA 8.6 MG TAB PO SCH ×2 (08:43→19:41)
[2017-03-11] MEDS: predniSONE 20 MG TAB PO SCH (08:43)
[2017-03-11] MEDS: CITALOPRAM HYDROBROMIDE 40 MG TAB PO SCH (08:43)
[2017-03-11] MEDS: SUMAtriptan SUCCINATE 25 MG TAB PO PRN ×2 (08:44→13:05)
[2017-03-11] MEDS: PYRIDOSTIGMINE BROMIDE 60 MG TAB PO SCH ×3 (08:44→15:02)
[2017-03-11] MEDS: FAMOTIDINE 20 MG TAB PO SCH ×2 (08:44→19:48)
[2017-03-11] MEDS: MAGNESIUM SULFATE 1 GM PREMIX 100 ML IV SCH ×2 (08:45→11:18)
[2017-03-11] MEDS: SODIUM CHLORIDE 0.9% FLUSH 10 ML FLUSH SCH ×2 (09:00→21:00)
[2017-03-11] MEDS: NYSTATIN 100,000 U/GM PWD 15 GM BTL TOPICAL SCH ×2 (09:28→19:42)
[2017-03-11] MEDS: SODIUM CHLOR 0.9% 1000 ML INJ 1,000 ML IV SCH (09:28)
--- NOTE | 2017-03-11 09:31 | HHI.PR ---
Objective Vital Signs Date Time Temp Pulse Resp B/P Pulse Ox O2 Delivery O2 Flow Rate FiO2 03/11/17 06:00 103 03/11/17 04:11 18 03/11/17 04:00 98 03/11/17 04:00 98.1 98 18 112/68 98 03/11/17 02:00 107 03/11/17 01:36 18 03/11/17 00:00 97.8 93 18 106/60 97 03/11/17 00:00 93 03/10/17 22:00 113 03/10/17 20:55 99 21 03/10/17 20:00 116 03/10/17 20:00 98.0 116 20 124/80 98 03/10/17 18:00 137 03/10/17 17:00 144 03/10/17 16:00 116 25 132/81 99 03/10/17 16:00 116 03/10/17 16:00 116 03/10/17 15:00 116 03/10/17 15:00 116 10 119/85 97 03/10/17 15:00 116 03/10/17 14:00 121 03/10/17 14:00 121 26 109/60 97 03/10/17 14:00 121 03/10/17 14:00 121 03/10/17 14:00 121 26 109/60 97 03/10/17 13:00 131 03/10/17 13:00 131 03/10/17 13:00 131 128/94 03/10/17 13:00 131 128/94 03/10/17 13:00 131 03/10/17 12:00 123 03/10/17 12:00 123 03/10/17 12:00 123 24 121/80 96 03/10/17 12:00 123 03/10/17 12:00 123 24 121/80 96 03/10/17 11:01 153 03/10/17 11:01 153 35 145/91 91 03/10/17 11:01 153 35 145/91 91 03/10/17 11:01 153 03/10/17 11:01 153 03/10/17 10:00 112 03/10/17 10:00 112 03/10/17 10:00 112 25 119/73 98 03/10/17 10:00 112 25 119/73 98 03/10/17 10:00 112 I/O 03/10/17 03/10/17 03/10/17 03/11/17 03/11/17 03/11/17 07:00 15:00 23:00 07:00 15:00 23:00 Intake Total 1304 ml 1842 ml 1769 ml 736 ml Output Total 2100 ml Balance 1304 ml -258 ml 1769 ml 736 ml Intake Oral 350 ml 1200 ml 400 ml 120 ml IV Total 954 ml 642 ml 1369 ml 616 ml Output Urine Total 2100 ml # Voids 3 3 3 # Bowel Movements 0 2 3 1 Result Diagram: 03/11/17 0340 03/11/17 0340 Objective Remarks looks nl this am voice strong walks ok hr 146 after transfer Assessment and Plan Assessment and Plan imp MG looking great today cont ivig #4 today low dose xanax she looksgreat better today neurowise and could dc neurowise after 5th ivig when cleared by med team check standing bp with inc hr i defer to med team on easy inc hr to 146 with minor exertion anemia also Jayce Dover MD Mar 11, 2017 09:31
--- NOTE | 2017-03-11 11:30 | PD.TRANSFR ---
Transfer Summary Admission Date March 08, 2017 at 16:37 Transfer Date: Mar 11, 2017 Admitting Diagnosis myasthenia gravis Diagnoses: (1) Myasthenia exacerbation Diagnosis: Principal (2) Myasthenia gravis Diagnosis: Principal (3) Chronic pain disorder Diagnosis: Principal Significant Findings IVIG Transfer Summary/Subjective Okay to transfer to [facility] with telemetry. Okayed with neurology. day #4 of 5 IVIG for myasthenia gravis crisis Objective Vital Signs Date Time Temp Pulse Resp B/P Pulse Ox O2 Delivery O2 Flow Rate FiO2 03/11/17 10:21 123/72 03/11/17 10:07 145 35 92 03/11/17 04:00 98.1 03/10/17 20:55 21 03/10/17 09:07 Nasal Cannula 2.00 Intake and Output 03/10/17 03/10/17 03/10/17 07:59 15:59 23:59 Intake Total 1304 ml 1842 ml 1769 ml Output Total 2100 ml Balance 1304 ml -258 ml 1769 ml Result Diagram: 03/11/17 0340 03/11/17 0340 Other Results Microbiology Date/Time Procedure Status Source Growth 03/08/17 17:30 Urine Culture - Final Complete Urine Clean Catch Escherichia Coli Imaging Last Impressions Chest X-Ray 03/08/17 0000 Signed Impressions: Service Date/Time: Wednesday, March 08, 2017 14:11 - CONCLUSION: Underinflation with mild bibasilar opacity representing atelectasis or mild air space consolidation. No other acute finding is seen. Kory Wilson MD Objective Remarks GENERAL: 41-year-old female, resting in bed in no acute distress SKIN: Warm and dry. No rash HEAD: Normocephalic. Atraumatic. EYES: Lateral disconjugate gaze with horizontal nystagmus noted. Pupils are approximately 2-3 mm bilaterally and brisk. No scleral icterus. No injection or drainage. NECK: Supple, trachea midline. No JVD or lymphadenopathy. CARDIOVASCULAR: Tachycardic, RRR. S1, S2. No S4 no murmur rubs. RESPIRATORY: Few crackles patient right greater than left lower lobes. No end expiratory wheeze. GASTROINTESTINAL: Abdomen soft, non-tender, nondistended. MUSCULOSKELETAL: No skin peripheral edema BACK: Nontender without obvious deformity. No CVA tenderness. NEURO: Deep tendon reflexes are equal and symmetric bilaterally. Strength is 4.5+ out of 5 bilateral upper and lower extremity. Normal sensation. A/P Assessment and Plan Neuro/Psych: Myasthenia crisis Chronic benzodiazepine use Migraine headache Anxiety Day #4 IVIG 20 g of 5 planned On chronic prednisone 20 mg by mouth daily and azathioprine 75 mg by mouth daily for MG Continue Mestinon 120 mg by mouth 3 times a day On Celexa 40 mg daily for depression home. On Elavil 25 mg daily at bedtime for anxiety. Ultram 50 mg as needed for pain. Followed by neurology/Dr. Shirley Imitrex 50 mg as needed for migraine. May repeat in 2 hours. Maximum 200 mg daily On Ofirmev IV 650 g every 6 hours when necessary CV: Currently not requiring any antihypertensives and/or vasopressors. On D5 normal saline at 75 cc an hour.. Switch to normal saline at 42 cc an hour Resp: Mild respiratory insufficiency Monitor NIF every 6 hours. Notify if less than -25-30 red last -40 Monitor vital capacity every 6 hours. Notify if less than 15 mL/kg Nasal cannula to maintain saturations greater than equal to 92% Incentive spirometry while awake GI: Advance diet as tolerated Actively having bowel movements : Ledezma if indicated Endo: Sliding-scale insulin to maintain euglycemia Renal: Monitor urine output Accurate I's and O's Heme: Leukocytosis - infectious process/minus steroid Follow CBC daily. Monitor trends. Noted on prednisone ID: Escherichia coli. Urinary tract infection Day #4 aztreonam Avoid fluoroquinolones and vancomycin with current myasthenia crisis FEN: Hypo-magnesium 2 g mag sulfate IV 1 now. Replace electrolytes as clinically indicated MSK: Physical therapy evaluate and treat Access - Utilize peripheral IV. Central line if indicated Prophylaxis - GI - Protonix - DVT - SCD/Lovenox subcutaneous Level II Chirag Diaz MD Mar 11, 2017 11:30
[2017-03-11] MEDS: DEXTROSE 5% IN WATE 500 ML INJ 500 ML OTHER SCH (13:17)
[2017-03-11] MEDS: diphenhydrAMINE HCL 25 MG CAP PO SCH (18:09)
[2017-03-11] MEDS: ACETAMINOPHEN 325 MG TAB PO SCH (18:09)
[2017-03-11] MEDS: SODIUM CHLORID 0.9% 500 ML INJ 500 ML IV SCH (18:10)
[2017-03-11] MEDS: IMMUNE GLOBULIN INJ 20 GM in SYRINGE/BAG 1 EA IV SCH (18:10)
[2017-03-11] MEDS: AMITRIPTYLINE HCL 25 MG TAB PO SCH (19:41)
[2017-03-11] MEDS: ENOXAPARIN SODIUM 30 MG/0.3 ML SYRINGE SQ SCH ×3 (19:41→19:58)
--- NOTE | 2017-03-11 19:49 | HHI.PR ---
Subjective Remarks 41 YOWF with MG,Migraine Feels much better Denies sob Uses acapella No Sputum Good NIF Objective Vital Signs Vital Signs Date Time Temp Pulse Resp B/P Pulse Ox O2 Delivery O2 Flow Rate FiO2 03/11/17 16:09 112 29 136/65 97 03/11/17 16:09 112 29 136/65 97 03/11/17 16:09 112 03/11/17 16:00 108 29 98 03/11/17 16:00 108 03/11/17 16:00 108 29 98 03/11/17 14:00 104 03/11/17 14:00 104 03/11/17 14:00 104 21 97 03/11/17 14:00 104 21 97 03/11/17 12:00 99 23 95 03/11/17 12:00 99 03/11/17 12:00 99 03/11/17 12:00 99 23 95 03/11/17 12:00 99 23 95 03/11/17 12:00 99 03/11/17 10:21 123/72 03/11/17 10:07 145 35 123/72 92 03/11/17 10:07 145 03/11/17 10:07 145 03/11/17 10:07 145 03/11/17 10:07 145 35 123/72 92 03/11/17 10:07 145 03/11/17 10:07 145 35 123/72 92 03/11/17 10:07 145 35 123/72 92 03/11/17 10:00 126 24 96 03/11/17 10:00 126 03/11/17 10:00 126 03/11/17 10:00 126 24 96 03/11/17 10:00 126 24 96 03/11/17 10:00 126 03/11/17 10:00 126 24 96 03/11/17 10:00 126 03/11/17 09:46 96 03/11/17 09:16 124 24 153/85 95 03/11/17 09:16 124 03/11/17 09:16 124 24 153/85 95 03/11/17 09:16 124 24 153/85 95 03/11/17 09:16 124 03/11/17 09:16 124 24 153/85 95 03/11/17 09:16 124 03/11/17 09:16 124 03/11/17 09:00 137 36 165/98 92 03/11/17 09:00 137 36 165/98 92 03/11/17 09:00 137 36 165/98 92 03/11/17 09:00 137 03/11/17 09:00 137 03/11/17 09:00 137 03/11/17 09:00 137 36 165/98 92 03/11/17 09:00 137 03/11/17 08:00 104 03/11/17 08:00 104 24 118/75 97 03/11/17 08:00 104 24 118/75 97 03/11/17 08:00 104 03/11/17 08:00 104 03/11/17 08:00 104 03/11/17 08:00 104 24 118/75 97 03/11/17 08:00 104 24 118/75 97 03/11/17 06:00 103 03/11/17 04:11 18 03/11/17 04:00 98 03/11/17 04:00 98.1 98 18 112/68 98 03/11/17 02:00 107 03/11/17 01:36 18 03/11/17 00:00 97.8 93 18 106/60 97 03/11/17 00:00 93 03/10/17 22:00 113 03/10/17 20:55 99 21 03/10/17 20:00 116 03/10/17 20:00 98.0 116 20 124/80 98 I/O 03/10/17 03/10/17 03/10/17 03/11/17 03/11/17 03/11/17 07:00 15:00 23:00 07:00 15:00 23:00 Intake Total 1304 ml 1842 ml 1769 ml 736 ml 1882 ml Output Total 2100 ml 2100 ml Balance 1304 ml -258 ml 1769 ml 736 ml -218 ml Intake Oral 350 ml 1200 ml 400 ml 120 ml 1100 ml IV Total 954 ml 642 ml 1369 ml 616 ml 782 ml Output Urine Total 2100 ml 2100 ml # Voids 3 3 3 # Bowel Movements 0 2 3 1 2 Result Diagram: 03/11/17 0340 03/11/17 0340 Objective Remarks GENERAL: WBWN WF,NAD SKIN: Warm and dry. HEAD: Normocephalic. EYES: No scleral icterus. No injection or drainage. NECK: Supple, trachea midline. No JVD or lymphadenopathy. CARDIOVASCULAR: Regular rate and rhythm without murmurs, gallops, or rubs. RESPIRATORY: Breath sounds equal bilaterally. No accessory muscle use. GASTROINTESTINAL: Abdomen soft, non-tender, nondistended. MUSCULOSKELETAL: No cyanosis, or edema. BACK: Nontender without obvious deformity. No CVA tenderness. A/P Assessment and Plan Myasthenia Gravis Atelactesis mild Migraine Anxiety PLAN: Cont Abx IS Aerosol nebs prn On Immunoglobulin, Imuran Stable from Pulm standpoint. Alden Gonzalez MD Mar 11, 2017 19:49
[2017-03-12] VITALS (12 sets, daily range): BP systolic 104–128; BP diastolic 68–92; PULSE 92–128; RESP 16–20; TEMP 96.3–98.4; O2SAT 94–97
[2017-03-12] MEDS: ALPRAZolam 0.25 MG TAB PO SCH ×4 (02:20→21:11)
[2017-03-12] MEDS: INSULIN NovoLIN REGULAR SUPPLEMENTAL SCALE SQ SCH ×4 (02:20→22:38)
[2017-03-12] MEDS: AZTREONAM INJ 1,000 MG in SODIUM CHLORIDE 0.9% INJ 100 ML IV SCH ×3 (02:21→16:43)
[2017-03-12] MEDS: traMADol HCL 50 MG TAB PO PRN ×2 (02:23→08:50)
[2017-03-12] MEDS: CHLORHEXIDINE GLUCONATE 2 % 1 PACK (2 CLOTHS) TOP SCH (02:30)
[2017-03-12] MEDS: azaTHIOprine 50 MG TAB PO SCH (06:30)
[2017-03-12] MEDS: SUMAtriptan SUCCINATE 25 MG TAB PO PRN (06:32)
[2017-03-12] MEDS: SODIUM CHLOR 0.9% 1000 ML INJ 1,000 ML IV SCH (07:04)
[2017-03-12 08:31] LABS: AUTOMATED NEUTROPHIL # 8.7 TH/MM3 (1.8-7.7); BASOPHIL # 0.1 TH/MM3 (0-0.2); BASOPHIL % 0.9 % (0.0-2.0); EOSINOPHIL % 0.3 % (0.0-4.0); HEMATOCRIT 28.8 % (35.0-46.0); LYMPH % 16.2 % (9.0-44.0); LYMPHOCYTE # 1.8 TH/MM3 (1.0-4.8); MEAN CELL VOLUME 87.9 FL (80.0-100.0); MEAN CORPUSCULAR HEMOGLOBIN 29.3 PG (27.0-34.0); MEAN CORPUSCULAR HGB CONC 33.3 % (32.0-36.0); MONO % 4.7 % (0.0-8.0); NEUT % 77.9 % (16.0-70.0); PLATELET COUNT 454 TH/MM3 (150-450); RED BLOOD COUNT 3.27 MIL/MM3 (4.00-5.30); RED CELL DISTRIBUTION WIDTH 19.4 % (11.6-17.2); WHITE BLOOD COUNT 11.2 TH/MM3 (4.0-11.0)
[2017-03-12 08:39] LABS: HEMO FLAGS AUTO DIFF
[2017-03-12] MEDS: predniSONE 20 MG TAB PO SCH (08:39)
[2017-03-12] MEDS: DOCUSATE SODIUM 50 MG/SENNA 8.6 MG TAB PO SCH ×2 (08:39→21:11)
[2017-03-12] MEDS: FAMOTIDINE 20 MG TAB PO SCH ×2 (08:39→21:11)
[2017-03-12] MEDS: PYRIDOSTIGMINE BROMIDE 60 MG TAB PO SCH ×3 (08:40→16:43)
[2017-03-12] MEDS: CITALOPRAM HYDROBROMIDE 40 MG TAB PO SCH (08:40)
[2017-03-12] MEDS: SODIUM CHLORIDE 0.9% FLUSH 10 ML FLUSH SCH (08:43)
[2017-03-12] MEDS: NYSTATIN 100,000 U/GM PWD 15 GM BTL TOPICAL SCH ×2 (08:44→21:03)
--- NOTE | 2017-03-12 09:06 | HHI.PR ---
Objective Vital Signs Date Time Temp Pulse Resp B/P Pulse Ox O2 Delivery O2 Flow Rate FiO2 03/12/17 04:00 97.6 98 20 113/86 97 03/12/17 00:45 96.3 102 16 115/72 97 03/11/17 23:30 96 03/11/17 23:24 96.4 94 16 109/71 97 03/11/17 20:43 95 21 03/11/17 20:00 115 03/11/17 16:09 112 29 136/65 97 03/11/17 16:09 112 29 136/65 97 03/11/17 16:09 112 03/11/17 16:00 108 29 98 03/11/17 16:00 108 03/11/17 16:00 108 29 98 03/11/17 14:00 104 03/11/17 14:00 104 03/11/17 14:00 104 21 97 03/11/17 14:00 104 21 97 03/11/17 12:00 99 23 95 03/11/17 12:00 99 03/11/17 12:00 99 03/11/17 12:00 99 23 95 03/11/17 12:00 99 23 95 03/11/17 12:00 99 03/11/17 10:21 123/72 03/11/17 10:07 145 35 123/72 92 03/11/17 10:07 145 03/11/17 10:07 145 03/11/17 10:07 145 03/11/17 10:07 145 35 123/72 92 03/11/17 10:07 145 03/11/17 10:07 145 35 123/72 92 03/11/17 10:07 145 35 123/72 92 03/11/17 10:00 126 24 96 03/11/17 10:00 126 03/11/17 10:00 126 03/11/17 10:00 126 24 96 03/11/17 10:00 126 24 96 03/11/17 10:00 126 03/11/17 10:00 126 24 96 03/11/17 10:00 126 03/11/17 09:46 96 03/11/17 09:16 124 24 153/85 95 03/11/17 09:16 124 03/11/17 09:16 124 24 153/85 95 03/11/17 09:16 124 24 153/85 95 03/11/17 09:16 124 03/11/17 09:16 124 24 153/85 95 03/11/17 09:16 124 03/11/17 09:16 124 I/O 03/11/17 03/11/17 03/11/17 03/12/17 03/12/17 03/12/17 07:00 15:00 23:00 07:00 15:00 23:00 Intake Total 736 ml 1882 ml 710 ml 220 ml Output Total 2100 ml 450 ml 500 ml Balance 736 ml -218 ml 260 ml -280 ml Intake Oral 120 ml 1100 ml 710 ml 220 ml IV Total 616 ml 782 ml Output Urine Total 2100 ml 450 ml 500 ml # Voids 3 # Bowel Movements 1 2 0 0 Result Diagram: 03/12/17 0752 03/11/17 0340 Objective Remarks looks nl this am voice strong walks ok bp stand ok cannot get oo chair w/o arms Assessment and Plan Assessment and Plan imp MG looking great today cont ivig #4 today low dose xanax she looksgreat better today neurowise and could dc neurowise after 5th ivig when cleared by med team check standing bp with inc hr i defer to med team on easy inc hr to 146 with minor exertion 03/12/17 doing better q day anemia also better ok by me to dc with home PT after 5th dose ivig Jayce Dover MD Mar 12, 2017 09:06
[2017-03-12 09:22] LABS: SCAN/DIFF AUTO DIFF CONFIRMED
[2017-03-12 09:23] LABS: ALKALINE PHOSPHATASE 83 U/L (45-117); ALT (GPT) 27 U/L (10-53); ANION GAP 7 MEQ/L (5-15); AST (GOT) 15 U/L (15-37); BICARBONATE 28.5 MEQ/L (21.0-32.0); BLOOD UREA NITROGEN 9 MG/DL (7-18); CHLORIDE 100 MEQ/L (98-107); GLOMERULAR FILTRATION RATE 147 ML/MIN (>89); MAGNESIUM 2.3 MG/DL (1.5-2.5); POTASSIUM 4.8 MEQ/L (3.5-5.1); SODIUM (NA) 135 MEQ/L (136-145); TOTAL BILIRUBIN ADULT 0.2 MG/DL (0.2-1.0)
[2017-03-12 09:29] LABS: CREATINE KINASE 26 U/L (26-192)
[2017-03-12] MEDS ORDERED: ACETAMINOPHEN 500 MG CPLT PO PRN (12:15)
--- NOTE | 2017-03-12 12:19 | HHI.PR ---
Subjective Remarks Follow-up for myasthenia gravis, UTI. She does currently doing well. Ambulating in the room. She reports significant generalized pain. No chest pain, shortness of breath, fever or chills. Objective Vitals Vital Signs Date Time Temp Pulse Resp B/P Pulse Ox O2 Delivery O2 Flow Rate FiO2 03/12/17 08:00 97.2 123 18 128/92 97 03/12/17 04:00 97.6 98 20 113/86 97 03/12/17 00:45 96.3 102 16 115/72 97 03/11/17 23:30 96 03/11/17 23:24 96.4 94 16 109/71 97 03/11/17 20:43 95 21 03/11/17 20:00 115 03/11/17 16:09 112 29 136/65 97 03/11/17 16:09 112 29 136/65 97 03/11/17 16:09 112 03/11/17 16:00 108 29 98 03/11/17 16:00 108 03/11/17 16:00 108 29 98 03/11/17 14:00 104 03/11/17 14:00 104 03/11/17 14:00 104 21 97 03/11/17 14:00 104 21 97 I/O 03/11/17 03/11/17 03/11/17 03/12/17 03/12/17 03/12/17 07:00 15:00 23:00 07:00 15:00 23:00 Intake Total 736 ml 1882 ml 710 ml 220 ml Output Total 2100 ml 450 ml 500 ml Balance 736 ml -218 ml 260 ml -280 ml Intake Oral 120 ml 1100 ml 710 ml 220 ml IV Total 616 ml 782 ml Output Urine Total 2100 ml 450 ml 500 ml # Voids 3 # Bowel Movements 1 2 0 0 Result Diagram: 03/12/17 0752 03/12/17 0752 Imaging Last Impressions Chest X-Ray 03/08/17 0000 Signed Impressions: Service Date/Time: Wednesday, March 08, 2017 14:11 - CONCLUSION: Underinflation with mild bibasilar opacity representing atelectasis or mild air space consolidation. No other acute finding is seen. Kory Wilson MD Objective Remarks GENERAL: Alert, oriented 3, NAD. SKIN: Warm and dry. HEAD: Normocephalic. EYES: No scleral icterus. No injection or drainage. NECK: Supple, trachea midline. No JVD or lymphadenopathy. CARDIOVASCULAR: Regular rhythm, tachycardic without murmurs, gallops, or rubs. RESPIRATORY: Breath sounds equal bilaterally. No accessory muscle use. GASTROINTESTINAL: Abdomen soft, non-tender, nondistended. MUSCULOSKELETAL: No cyanosis, or edema. BACK: Nontender without obvious deformity. No CVA tenderness. Procedures None A/P Problem List: (1) Myasthenia exacerbation ICD Code: G70.01 Status: Acute (2) Myasthenia gravis ICD Code: G70.00 Status: Acute (3) Urinary tract infection ICD Code: N39.0 Status: Acute (4) Chronic pain disorder ICD Code: G89.4 Status: Acute Assessment and Plan Ms. Rodríguez is a pleasant 41-year-old female with a history of myasthenia gravis who presented to the emergency department on 03/08/2017 with generalized weakness worsening over one week prior to this admission. Her symptoms were severe to the point where she could not walk around independently. Patient reported a history of hospitalization at [facility] and required ventilatory support for 4 days. Patient was managed in the ICU along with neurologist who provided IVIG. - Acute myasthenia exacerbation - Migraine headache - Anxiety/depression - Continue last dose of IVIG today. Per neurology, no further treatment after today's dose. - Continue Celexa 40 mg daily, Imitrex 50 mg when necessary - Continue alprazolam 0.25 mg by mouth every 6 hours. - Fibromyalgia - continue amitriptyline 25 mg by mouth daily at bedtime - Urinary tract infection - Mild pulmonary atelectasis - Patient has been on aztreonam since 03/09/2017. Patient will likely not need any further antibiotics on discharge. - Chronic pain syndrome - discontinue tramadol. Start [place] 7.5/325 mg by mouth every 6 hours when necessary Full code. SCDs, ambulation. Discharge plan - likely discharge in the morning. Judith Mg DO Mar 12, 2017 12:19 pm
[2017-03-12] MEDS: ACETAMINOPHEN/HYDROcodone 325 MG/7.5 MG TAB PO PRN ×2 (13:16→19:24)
[2017-03-12] MEDS ORDERED: ALTEPLASE RECOMBINANT 2 MG VIAL INTRACATH PRN (14:00)
[2017-03-12 15:45] LABS: FREE T4 0.95 NG/DL (0.76-1.46)
[2017-03-12] MEDS ORDERED: WALKER WHEELS/F1 MIS (15:45)
[2017-03-12] MEDS ORDERED: COMMODE 3-IN-11 MIS (15:45)
--- NOTE | 2017-03-12 15:46 | HHI.FF ---
Face to Face Verification Diagnosis: (1) Myasthenia gravis with exacerbation (2) Urinary tract infection (3) Migraine Physical Therapy Order: Evaluate and Treat, Improve ambulation, Strength and gait training Home Health Nursing Order: Medical education Signs/symptoms of disease process Medication education-adverse effect Nursing assessment with vital signs I have seen patient Brionna Rodríguez on 03/12/17. My clinical findings support the need for the requested home health care services because: Ltd mobility - disease progression Deconditioned w/ increased weakness Need for psychosocial assistance Impaired cognition/judgement High risk of falls I certify that my clinical findings support that this patient is homebound because: Unsteady gait/balance Unsafe to leave home unassisted Need for psychosocial assistance Unable to use public transportation Judith Mg DO Mar 12, 2017 3:46 pm
[2017-03-12] MEDS ORDERED: ONDANSETRON HCL 4 MG/2 ML VIAL IV PUSH PRN (16:15)
--- NOTE | 2017-03-12 18:22 | HHI.PR ---
Subjective Remarks 41 YOWF with MG,Migraine Feels much better Denies sob Uses acapella No Sputum has intermittent nausea Objective Vital Signs Vital Signs Date Time Temp Pulse Resp B/P Pulse Ox O2 Delivery O2 Flow Rate FiO2 03/12/17 16:00 119/80 03/12/17 16:00 104/68 03/12/17 16:00 97.6 95 18 121/84 95 03/12/17 12:00 97.5 114 18 120/89 97 03/12/17 08:05 128 03/12/17 08:00 97.2 123 18 128/92 97 03/12/17 04:00 97.6 98 20 113/86 97 03/12/17 00:45 96.3 102 16 115/72 97 03/11/17 23:30 96 03/11/17 23:24 96.4 94 16 109/71 97 03/11/17 20:43 95 21 03/11/17 20:00 115 I/O 03/11/17 03/11/17 03/11/17 03/12/17 03/12/17 03/12/17 06:59 14:59 22:59 06:59 14:59 22:59 Intake Total 736 ml 1882 ml 710 ml 220 ml 1440 ml Output Total 2100 ml 450 ml 500 ml Balance 736 ml -218 ml 260 ml -280 ml 1440 ml Intake Oral 120 ml 1100 ml 710 ml 220 ml 1440 ml IV Total 616 ml 782 ml Output Urine Total 2100 ml 450 ml 500 ml # Voids 3 10 # Bowel Movements 1 2 0 0 Result Diagram: 03/12/17 0752 03/12/17 0752 Objective Remarks GENERAL: WBWN WF,NAD SKIN: Warm and dry. HEAD: Normocephalic. EYES: No scleral icterus. No injection or drainage. NECK: Supple, trachea midline. No JVD or lymphadenopathy. CARDIOVASCULAR: Regular rate and rhythm without murmurs, gallops, or rubs. RESPIRATORY: Breath sounds equal bilaterally. No accessory muscle use. GASTROINTESTINAL: Abdomen soft, non-tender, nondistended. MUSCULOSKELETAL: No cyanosis, or edema. BACK: Nontender without obvious deformity. No CVA tenderness. A/P Assessment and Plan Myasthenia Gravis Atelactesis mild Migraine Anxiety PLAN: Cont Abx IS Aerosol nebs prn On Immunoglobulin, Imuran Stable from Pulm standpoint. DC plans for home Alden Gonzalez MD Mar 12, 2017 18:21
[2017-03-12] MEDS ORDERED: ACETAMINOPHEN 325 MG TAB PO ONE (19:15)
[2017-03-12] MEDS: diphenhydrAMINE HCL 25 MG CAP PO SCH (19:23)
[2017-03-12] MEDS: SODIUM CHLORID 0.9% 500 ML INJ 500 ML IV SCH (19:24)
[2017-03-12] MEDS: IMMUNE GLOBULIN INJ 20 GM in SYRINGE/BAG 1 EA IV SCH (20:49)
[2017-03-12] MEDS: SODIUM CHLORIDE 0.9% FLUSH 10 ML FLUSH IV FLUSH SCH (21:11)
[2017-03-12] MEDS: AMITRIPTYLINE HCL 25 MG TAB PO SCH (21:11)
[2017-03-12] MEDS: ENOXAPARIN SODIUM 30 MG/0.3 ML SYRINGE SQ SCH (21:12)
[2017-03-13] VITALS: BP_SYST 108; BP_SYST 116; BP_SYST 127; BP_DIAS 69; BP_DIAS 76; BP_DIAS 80; PULSE 98; RESP 16; TEMP 97.3; O2SAT 95
[2017-03-13] MEDS: AZTREONAM INJ 1,000 MG in SODIUM CHLORIDE 0.9% INJ 100 ML IV SCH ×2 (00:25→07:42)
[2017-03-13] MEDS: ACETAMINOPHEN/HYDROcodone 325 MG/7.5 MG TAB PO PRN ×2 (01:03→07:09)
[2017-03-13] MEDS: INSULIN NovoLIN REGULAR SUPPLEMENTAL SCALE SQ SCH (03:00)
[2017-03-13] MEDS: ALPRAZolam 0.25 MG TAB PO SCH ×2 (03:15→07:42)
[2017-03-13 04:00] VITALS: BP 114/75; PULSE 101; RESP 16; TEMP 97.6; O2SAT 95
[2017-03-13] MEDS: CHLORHEXIDINE GLUCONATE 2 % 1 PACK (2 CLOTHS) TOP SCH (04:00)
[2017-03-13] MEDS: azaTHIOprine 50 MG TAB PO SCH (05:48)
[2017-03-13] MEDS: SUMAtriptan SUCCINATE 25 MG TAB PO PRN (05:50)
[2017-03-13] MEDS: SODIUM CHLOR 0.9% 1000 ML INJ 1,000 ML IV SCH (06:53)
[2017-03-13] MEDS: PYRIDOSTIGMINE BROMIDE 60 MG TAB PO SCH ×2 (07:43→09:54)
[2017-03-13] MEDS: DOCUSATE SODIUM 50 MG/SENNA 8.6 MG TAB PO SCH (07:43)
[2017-03-13] MEDS: FAMOTIDINE 20 MG TAB PO SCH (07:44)
[2017-03-13] MEDS: predniSONE 20 MG TAB PO SCH (07:44)
[2017-03-13] MEDS: CITALOPRAM HYDROBROMIDE 40 MG TAB PO SCH (07:45)
[2017-03-13] MEDS: SODIUM CHLORIDE 0.9% FLUSH 10 ML FLUSH IV FLUSH SCH (07:45)
[2017-03-13 08:00] VITALS: BP 123/91; PULSE 108; RESP 16; TEMP 97.3; O2SAT 97
[2017-03-13] MEDS ORDERED: ALPR.25 PO (08:00)
[2017-03-13] MEDS ORDERED: HYDR-3580 PO (08:00)
--- NOTE | 2017-03-13 08:01 | HHI.DS ---
Discharge Summary Admission Date March 08, 2017 at 4:37 pm Discharge Date: Mar 13, 2017 Admitting Diagnosis myasthenia gravis (1) Myasthenia exacerbation ICD Code: G70.01 Diagnosis: Principal (2) Myasthenia gravis ICD Code: G70.00 (3) Urinary tract infection ICD Code: N39.0 (4) Chronic pain disorder ICD Code: G89.4 Procedures None Brief History - From Admission 41-year-old female with a long history of myasthenia gravis and multiple admissions for myasthenic crisis presents with generalized weakness worsening over the past week, constant, severe to the point where she is not able to walk around independently and has to hold on to her family for support. She was just hospitalized for 10 days at [facility] in their intensive care unit and was intubated on a ventilator for 4 days. At that time she has had plasmapheresis. She feels like she never got any better after that hospitalization. She says that IVIG really works for her. She sees Dr. Banuelos who is her neurologist. He recommended IVIG 2-3 times per month but her insurance would not pay for it. CBC/BMP: 03/12/17 0752 03/12/17 0752 Significant Findings Laboratory Tests Test 03/11/17 03/12/17 03:40 07:52 Red Blood Count 2.70 MIL/MM3 3.27 MIL/MM3 (4.00-5.30) (4.00-5.30) Hemoglobin 7.7 GM/DL 9.6 GM/DL (11.6-15.3) (11.6-15.3) Hematocrit 24.3 % 28.8 % (35.0-46.0) (35.0-46.0) Mean Corpuscular Hemoglobin 31.7 % Concent (32.0-36.0) Red Cell Distribution Width 19.0 % 19.4 % (11.6-17.2) (11.6-17.2) Blood Urea Nitrogen 5 MG/DL (7-18) Creatinine 0.34 MG/DL 0.47 MG/DL (0.50-1.00) (0.50-1.00) White Blood Count 11.2 TH/MM3 (4.0-11.0) Platelet Count 454 TH/MM3 (150-450) Neutrophils (%) (Auto) 77.9 % (16.0-70.0) Neutrophils # (Auto) 8.7 TH/MM3 (1.8-7.7) Sodium Level 135 MEQ/L (136-145) Total Protein 8.9 GM/DL (6.4-8.2) Albumin 2.9 GM/DL (3.4-5.0) Imaging Last Impressions Chest X-Ray 03/08/17 0000 Signed Impressions: Service Date/Time: Wednesday, March 08, 2017 14:11 - CONCLUSION: Underinflation with mild bibasilar opacity representing atelectasis or mild air space consolidation. No other acute finding is seen. Kory Wilson MD PE at Discharge GENERAL: Alert, oriented 3, NAD. SKIN: Warm and dry. HEAD: Normocephalic. EYES: No scleral icterus. No injection or drainage. NECK: Supple, trachea midline. No JVD or lymphadenopathy. CARDIOVASCULAR: Regular rhythm, tachycardic without murmurs, gallops, or rubs. RESPIRATORY: Breath sounds equal bilaterally. No accessory muscle use. GASTROINTESTINAL: Abdomen soft, non-tender, nondistended. MUSCULOSKELETAL: No cyanosis, or edema. BACK: Nontender without obvious deformity. No CVA tenderness. Pt update on day of discharge Patient is doing well. No acute concerns. Hospital Course Ms. Rodríguez is a pleasant 41-year-old female with a history of myasthenia gravis who presented to the emergency department on 03/08/2017 with generalized weakness worsening over one week prior to this admission. Her symptoms were severe to the point where she could not walk around independently. Patient reported a history of hospitalization at [facility] and required ventilatory support for 4 days. Patient was managed in the ICU along with neurologist who provided IVIG. - Acute myasthenia exacerbation - Migraine headache - Anxiety/depression - Continue last dose of IVIG yesterday. Per neurology, Patient can be discharged after 5 days of IVIG. - Continue Celexa 40 mg daily, Imitrex 50 mg when necessary - Continue alprazolam 0.25 mg by mouth every 6 hours. - Fibromyalgia - continue amitriptyline 25 mg by mouth daily at bedtime - Urinary tract infection - Mild pulmonary atelectasis - Patient has been on aztreonam since 03/09/2017. No further abx. - Chronic pain syndrome - discontinue tramadol. Donald 7.5/325 mg by mouth every 6 hours when necessary Full code. SCDs, ambulation. Pt Condition on Discharge: Good Discharge Disposition: Discharge Home Discharge Time: > 30 minutes Discharge Instructions DIET: Follow Instructions for: As Tolerated, No Restrictions Activities you can perform: Regular-No Restrictions Follow up Referrals: Neurology - 10 Days PCP Follow-up - 1 Week New Medications: Commode 3-in-1 (Commode 3-in-1) 1 Mis Mis 1 EA .ROUTE DIRECTED #1 Ref 0 EA Walker with Front Wheels (Walker with Front Wheels) 1 Mis Mis 1 EA .ROUTE DIRECTED #1 Ref 0 EA Alprazolam (Xanax) 0.25 Mg Tab 0.25 MG PO Q6H Anxiety #30 TAB Hydrocodone-Acetaminophen (Hydrocodone-Acetaminophen) 7.5-325 mg Tab 1 TAB PO Q6H PRN PAIN SCALE 5 TO 10 #30 TAB Continued Medications: Amitriptyline (Amitriptyline) 25 Mg Tab 25 MG PO HS TAB Azathioprine (Imuran) 50 Mg Tab 50 MG PO DAILY Hazardous agent: use appropriate precautions for handling and disposal. Immunosuppression #30 Ref 0 TAB Azathioprine (Azathioprine) 50 Mg Tab 75 MG PO DAILY@06 Control Inflammation #30 TAB Citalopram (Citalopram) 40 Mg Tab 40 MG PO DAILY Control Depression #30 Ref 0 TAB Prednisone (Prednisone) 20 Mg Tab 20 MG PO DAILY Ref 0 TAB Pyridostigmine (Mestinon) 60 Mg Tab 120 MG PO TIDAC Manage Myastenia Gravis #360 Ref 0 TAB Sumatriptan (Imitrex) 50 Mg Tab 50 MG PO DAILY If a satisfactory response has not been obtained at 2 hours, a second dose may be administered PRN HEADACHE Ref 0 TAB Discontinued Medications: Tramadol (Tramadol) 50 Mg Tab 50 MG PO Q4H PRN PAIN Ref 0 TAB Judith Mg DO Mar 13, 2017 08:01
== END 2017-03-13 10:15 | disposition home or self-care (01) | DRG 57 ==
LOC: NEPE 13:36 → NEDA 16:37 → HIMW 18:40 → HOCB 03-11 23:02
PROVIDERS: ADMIT Hospitalist; ATTEND Hospitalist
PROC: 30233S1 Transfusion of Nonautologous Globulin into Peripheral Vein, Percutaneous Approach (ICD-10-PCS; principal; 2017-03-08)
DX: G70.01 Myasthenia gravis with (acute) exacerbation (principal); E87.2 Acidosis; N39.0 Urinary tract infection, site not specified; J98.11 Atelectasis; D64.9 Anemia, unspecified; E87.6 Hypokalemia; G43.909 Migraine, unspecified, not intractable, without status migrainosus; G89.4 Chronic pain syndrome; E83.42 Hypomagnesemia; M79.7 Fibromyalgia; F17.210 Nicotine dependence, cigarettes, uncomplicated; F32.9 Major depressive disorder, single episode, unspecified; F41.9 Anxiety disorder, unspecified; B96.20 Unspecified Escherichia coli [E. coli] as the cause of diseases classified elsewhere; Z88.0 Allergy status to penicillin
CPT/HCPCS: 36600; 71010; 80048; 80053; 81001; 82550; 82805; 82947; 82948; 83605; 83735; 84100; 84439; 84443; 85025; 85027; 87040; 87077; 87086; 87186; 87641; 94150; 94640; 94664; 94667; 94668; 96374; J0131; J1459; J1650; J2405; J2997; J3475; J7030; J7040; J7042; J7060; J7500; J7512

== ENCOUNTER 2017-04-20 10:35 | Inpatient (IN) | payer MEDICARE, MEDICAID ==
[~2017-04-20] VITALS: Ht 165.1 cm; Wt 52.9 kg
[~2017-04-20 10:35] MED LIST changes: +ALPR.25 PO; +COMMODE 3-IN-11 MIS; -DIAZ10 PO; +HYDR-3580 PO; -TRAM50TA PO; +WALKER WHEELS/F1 MIS; -XANA1TAB2 PO
[2017-04-20 10:38] VITALS: BP 118/81; PULSE 116; RESP 20; TEMP 98.7; O2SAT 100
[2017-04-20 10:59] VITALS: BP 132/89; PULSE 112; RESP 20; O2SAT 98
--- NOTE | 2017-04-20 11:18 | PD ---
HPI Chief Complaint: Neuro Symptoms/ Deficits Time Seen by Provider: 11:18 Travel History International Travel<30 days: No Contact w/Intl Traveler<30days: No Traveled to known affect area: No History of Present Illness HPI 42-year-old female with history of myasthenia gravis, multiple admissions for crisis, presents today for 2-3 day worsening of weakness, development of diplopia and her right eye. Patient reports her legs "giving out" yesterday and falling onto her right hip. She did not strike her head or lose consciousness but reports significant right hip pain. She does report difficulty swallowing and sensation of labored breathing, but feels as though she is getting enough oxygen. Patient is followed by Dr. Banuelos who does not have privileges at this hospital. She reports running into insurance conflict for recommended treatment, that she was previously doing IVIG at home, but has not been able to do this. She denies any recent illnesses, fever, or chills. She has no other symptoms to report at this time. PFSH Past Medical History Anemia: Yes Arthritis: No Autoimmune Disease: Yes (MYASTHENA GRAVIS) Blood Disorders: No Anxiety: Yes Depression: Yes Heart Rhythm Problems: No Cancer: No Cardiovascular Problems: No High Cholesterol: No Chest Pain: No Congestive Heart Failure: No Cerebrovascular Accident: No Cystic Fibrosis: No Diabetes: No Diminished Hearing: No Endocrine: No Gastrointestinal Disorders: Yes Genitourinary: No Hepatitis: No Hiatal Hernia: No Hypertension: No Immune Disorder: Yes (MYASTHENIA GRAVIS) Implanted Vascular Access Dvce: Yes (left chest) Musculoskeletal: Yes Neurologic: Yes (MYASTHENIA GRAVIS - Jul, 2013) Psychiatric: Yes (DEPRESSION, ANXIETY) Reproductive: No Respiratory: No Immunizations Current: No Migraines: Yes Seizures: No Thyroid Disease: No Tetanus Vaccination: < 5 Years Influenza Vaccination: No ?: Not : 2 Para: 2 Dilation and Curettage (D&C): Yes Tubal Ligation: Yes Past Surgical History Abdominal Surgery: No Body Medical Devices: LEFT IMPLANTED PORT Cardiac Surgery: No Ear Surgery: No Endocrine Surgery: Yes ( ) Eye Surgery: No Genitourinary Surgery: No Gynecologic Surgery: Yes (tubal ligation 2014) Hysterectomy: Yes Neurologic Surgery: No Oral Surgery: Yes (EXTRACTIONS) Thoracic Surgery: No Tonsillectomy: Yes Other Surgery: Yes (tubal ligation Dec 2014/ POWER PORT TO LEFT CHEST) Social History Alcohol Use: No Tobacco Use: Yes (< 1/2 PPD) Substance Use: No Allergies-Medications (Allergen,Severity, Reaction): Coded Allergies: Penicillin (Verified Allergy, Severe, Anaphylaxis, 03/08/17) Phenergan (Verified Adverse Reaction, Severe, NAUSEOUS, 03/08/17) Reported Meds & Prescriptions Reported Meds & Active Scripts Active Hydrocodone-Acetaminophen 7.5-325 mg Tab 1 Tab PO Q6H PRN Xanax (Alprazolam) 0.25 Mg Tab 0.25 Mg PO Q6H Commode 3-in-1 (Device) 1 Mis Mis 1 Ea .ROUTE DIRECTED Walker with Front Wheels (Device) 1 Mis Mis 1 Ea .ROUTE DIRECTED Azathioprine 50 Mg Tab 75 Mg PO DAILY@06 Reported Imuran (Azathioprine) 50 Mg Tab 50 Mg PO DAILY Hazardous agent: use appropriate precautions for handling and disposal. Prednisone 20 Mg Tab 20 Mg PO DAILY Mestinon (Pyridostigmine [place]) 60 Mg Tab 120 Mg PO TIDAC Imitrex (Sumatriptan Succinate) 50 Mg Tab 50 Mg PO DAILY PRN If a satisfactory response has not been obtained at 2 hours, a second dose may be administered Citalopram (Citalopram Hydrobromide) 40 Mg Tab 40 Mg PO DAILY Amitriptyline (Amitriptyline HCl) 25 Mg Tab 25 Mg PO HS Review of Systems Except as stated in HPI: all other systems reviewed are Neg Physical Exam Narrative GENERAL: Chronically ill-appearing female patient, tearful but in no acute distress SKIN: Focused skin assessment warm/dry. HEAD: Atraumatic. Normocephalic. EYES: Pupils equal and round. No scleral icterus. No injection or drainage. ENT: No nasal bleeding or discharge. Mucous membranes pink and moist. NECK: Trachea midline. No JVD. CARDIOVASCULAR: Tachycardic rate and rhythm. No murmur appreciated. RESPIRATORY: No accessory muscle use. Diminished due to poor inspiratory effort to auscultation. Breath sounds equal bilaterally. GASTROINTESTINAL: Abdomen soft, non-tender, nondistended. Hepatic and splenic margins not palpable. MUSCULOSKELETAL: No obvious deformities. No clubbing. No cyanosis. No edema. Internasal is to palpation over the anterior lateral right hip. No obvious deformity. No shortening. Distal pulses are palpable. Patient is reluctant to flex the right hip secondary to pain. Generalized 4/ 5 strength weakness. NEUROLOGICAL: Awake and alert. No obvious cranial nerve deficits. Motor grossly within normal limits. Normal speech. PSYCHIATRIC: Appropriate mood and affect; insight and judgment normal. Data Data Last Documented VS Vital Signs Date Time Temp Pulse Resp B/P Pulse Ox O2 Delivery O2 Flow Rate FiO2 04/20/17 12:32 86 18 107/67 100 Room Air 04/20/17 10:38 98.7 Orders Iv Access Insert/Monitor (04/20/17 11:17) Hip, Uni(Ap&Lat) W Ap Pelvis (04/20/17 ) Complete Blood Count With Diff (04/20/17 11:17) Basic Metabolic Panel (Bmp) (04/20/17 11:17) Arterial Blood Gas (Abg) (04/20/17 ) Urinalysis - C+S If Indicated (04/20/17 11:18) Chest, Single Ap (04/20/17 ) Vital Signs (Adult) Q15MX4,Q1H (04/20/17 11:45) ^ Treatment Of Side Effects (04/20/17 11:45) Sodium Chlorid 0.9% 500 Ml Inj (Ns 500 M (04/20/17 11:45) Acetaminophen (Tylenol) (04/20/17 11:45) Diphenhydramine (Benadryl) (04/20/17 11:45) Immune Globulin Inj (Privigen Inj) (04/20/17 12:45) Diphenhydramine Inj (Benadryl Inj) (04/20/17 12:45) Epinephrine (1:1000) Inj (Adrenalin (1:1 (04/20/17 12:45) Electrocardiogram (04/20/17 ) Ondansetron Inj (Zofran Inj) (04/20/17 12:00) Admit Order (Ed Use Only) (04/20/17 12:31) Consult Neurology (04/20/17 ) Labs Laboratory Tests Test 04/20/17 04/20/17 04/20/17 12:12 12:25 12:30 Blood Gas Puncture Site RT RADIAL Blood Gas Patient Temperature 98.6 Blood Gas HCO3 25 mmol/L Blood Gas Base Excess -0.1 mmol/L Blood Gas Oxygen Saturation 91 % Arterial Blood pH 7.35 Arterial Blood Partial 47 mmHg Pressure CO2 Arterial Blood Partial 72 mmHG Pressure O2 Arterial Blood Oxygen Content 12.9 Vol % Arterial Blood 4.7 % Carboxyhemoglobin Arterial Blood Methemoglobin 0.5 % Blood Gas Hemoglobin 10.1 G/DL White Blood Count 18.0 TH/MM3 Red Blood Count 3.91 MIL/MM3 Hemoglobin 10.0 GM/DL Hematocrit 32.0 % Mean Corpuscular Volume 82.0 FL Mean Corpuscular Hemoglobin 25.6 PG Mean Corpuscular Hemoglobin 31.3 % Concent Red Cell Distribution Width 17.4 % Platelet Count 495 TH/MM3 Mean Platelet Volume 7.8 FL Neutrophils (%) (Auto) 73.5 % Lymphocytes (%) (Auto) 19.0 % Monocytes (%) (Auto) 5.4 % Eosinophils (%) (Auto) 1.3 % Basophils (%) (Auto) 0.8 % Neutrophils # (Auto) 13.3 TH/MM3 Lymphocytes # (Auto) 3.4 TH/MM3 Monocytes # (Auto) 1.0 TH/MM3 Eosinophils # (Auto) 0.2 TH/MM3 Basophils # (Auto) 0.1 TH/MM3 CBC Comment DIFF FINAL Differential Comment Urine Color YELLOW Urine Turbidity CLEAR Urine pH 7.0 Urine Specific [place] 1.003 Urine Protein NEG mg/dL Urine Glucose (UA) NEG mg/dL Urine Ketones NEG mg/dL Urine Occult Blood NEG Urine Nitrite NEG Urine Bilirubin NEG Urine Urobilinogen LESS THAN 2.0 MG/DL Urine Leukocyte Esterase NEG Urine RBC LESS THAN 1 /hpf Urine WBC 1 /hpf Urine Squamous Epithelial 2 /hpf Cells Microscopic Urinalysis Comment CULT NOT INDICATED MDM Medical Decision Making Medical Screen Exam Complete: Yes Emergency Medical Condition: Yes Medical Record Reviewed: Yes Differential Diagnosis Myasthenia gravis versus crisis versus electrolyte abnormality versus respiratory distress Narrative Course 42-year-old female presents to the emergency department for evaluation. Patient is tearful but without distress. She is tachycardic. Patient has multiple visits here in the past with similar symptoms, with myasthenia crisis. I discussed the patient with my attending physician who recommends moving for with IVIG protocol. Lab work and x-ray imaging of the chest and right hip are ordered. Patient is treated for pain. [address] Kirby, neurologist human resources operations manager. She is familiar with this patient through her multiple hospital stays. She is in agreement with IVIG treatment and will continue patient's medications from home. She will consult on the patient and requested admission to medicine. [address] Pablo, resident physician human resources operations manager, patient will be admitted to Dr. Damno. She requests [facility], [facility] neuro. [id number] Laboratory Tests Test 04/20/17 04/20/17 04/20/17 12:12 12:25 12:30 Blood Gas Puncture Site RT RADIAL Blood Gas Patient Temperature 98.6 Blood Gas HCO3 25 mmol/L Blood Gas Base Excess -0.1 mmol/L Blood Gas Oxygen Saturation 91 % Arterial Blood pH 7.35 Arterial Blood Partial 47 mmHg Pressure CO2 Arterial Blood Partial 72 mmHG Pressure O2 Arterial Blood Oxygen Content 12.9 Vol % Arterial Blood 4.7 % Carboxyhemoglobin Arterial Blood Methemoglobin 0.5 % Blood Gas Hemoglobin 10.1 G/DL White Blood Count 18.0 TH/MM3 Red Blood Count 3.91 MIL/MM3 Hemoglobin 10.0 GM/DL Hematocrit 32.0 % Mean Corpuscular Volume 82.0 FL Mean Corpuscular Hemoglobin 25.6 PG Mean Corpuscular Hemoglobin 31.3 % Concent Red Cell Distribution Width 17.4 % Platelet Count 495 TH/MM3 Mean Platelet Volume 7.8 FL Neutrophils (%) (Auto) 73.5 % Lymphocytes (%) (Auto) 19.0 % Monocytes (%) (Auto) 5.4 % Eosinophils (%) (Auto) 1.3 % Basophils (%) (Auto) 0.8 % Neutrophils # (Auto) 13.3 TH/MM3 Lymphocytes # (Auto) 3.4 TH/MM3 Monocytes # (Auto) 1.0 TH/MM3 Eosinophils # (Auto) 0.2 TH/MM3 Basophils # (Auto) 0.1 TH/MM3 CBC Comment DIFF FINAL Differential Comment Urine Color YELLOW Urine Turbidity CLEAR Urine pH 7.0 Urine Specific [place] 1.003 Urine Protein NEG mg/dL Urine Glucose (UA) NEG mg/dL Urine Ketones NEG mg/dL Urine Occult Blood NEG Urine Nitrite NEG Urine Bilirubin NEG Urine Urobilinogen LESS THAN 2.0 MG/DL Urine Leukocyte Esterase NEG Urine RBC LESS THAN 1 /hpf Urine WBC 1 /hpf Urine Squamous Epithelial 2 /hpf Cells Microscopic Urinalysis Comment CULT NOT INDICATED Leukocytosis likely due to steroid use; no other acute concerns identified; BMP is still pending. Diagnosis Primary Impression: Myasthenia gravis with exacerbation Additional Impression: Leukocytosis Qualified Code: D72.829 - Leukocytosis, unspecified type Admitting Information Admitting Physician Requests: Admit Condition: Stable Sandra Mckinley Apr 20, 2017 11:18
[2017-04-20] MEDS: SODIUM CHLORID 0.9% 500 ML INJ 500 ML IV SCH (11:45)
[2017-04-20] MEDS ORDERED: ONDANSETRON HCL 4 MG/2 ML VIAL IV PUSH ONE (12:00)
[2017-04-20] MEDS ORDERED: MORPHINE SULFATE 4 MG/ML INJ IV PUSH ONE (12:00)
--- NOTE | 2017-04-20 12:15 | RADRPT ---
EXAM DATE/TIME: 04/20/2017 12:01 [facility] COMPARISON: No previous studies available for comparison. INDICATIONS : Fall. Right hip pain. MEDICAL HISTORY : Myasthenia Gravis. SURGICAL HISTORY : None. ENCOUNTER: Initial ACUITY: 1 day PAIN SCORE: 10/10 LOCATION: Right pelvis FINDINGS: No definite fractures, or dislocations are identified. No definite lytic or sclerotic lesion is seen . The joint spaces are well maintained. CONCLUSION: Unremarkable study. Mikhail Reece MD on April 20, 2017 at 12:12 Board Certified Radiologist. This report was verified electronically.
[2017-04-20 12:17] LABS: BLOOD GAS BASE EXCESS -0.1 mmol/L (-2-2); BLOOD GAS CARBOXYHEMOGLOBIN 4.7 % (0-4); BLOOD GAS HCO3 25 mmol/L (22-26); BLOOD GAS METHEMOGLOBIN 0.5 % (0-2); BLOOD GAS O2 HGB SATURATION 91 % (90-100); BLOOD GAS OXYGEN CONTENT 12.9 Vol % (12.0-20.0); BLOOD GAS PCO2 47 mmHg (38-42); BLOOD GAS PO2 72 mmHG (61-120); BLOOD GAS TOTAL HGB 10.1 G/DL (12.0-16.0); CRITICAL VALUE NO; TEMP CORR TO 98.6
[2017-04-20 12:18] LABS: DRAW SITE RT RADIAL; NUMBER OF ARTERIAL PUNCTURES 1; STAT YES; ULNAR PULSE PRESENT
[2017-04-20 12:32] VITALS: BP 107/67; PULSE 86; RESP 18; O2SAT 100
--- NOTE | 2017-04-20 12:42 | RADRPT ---
EXAM DATE/TIME: 04/20/2017 12:03 [facility] COMPARISON: HIP RIGHT (AP&LAT 2/3VWS) W AP PELVIS, April 20, 2017, 12:01. INDICATIONS : Fall. Chest pain. MEDICAL HISTORY : None. SURGICAL HISTORY : Thyroidectomy. ENCOUNTER: Initial ACUITY: 1 day PAIN SCORE: 1/10 LOCATION: Bilateral chest FINDINGS: The heart is normal in size. There is an [id number] in good position. There are COPD changes. The visualized bony structures are grossly intact. CONCLUSION: 1. Mild COPD changes. No acute abnormality. 2. [id number] in good position. Hugh Knutson MD on April 20, 2017 at 12:40 Board Certified Radiologist. This report was verified electronically.
[2017-04-20] MEDS ORDERED: diphenhydrAMINE HCL 50 MG/ML VIAL IV PUSH PRN (12:45)
[2017-04-20] MEDS ORDERED: EPINEPHrine HCL (1:1000) 1 MG/ML VIAL OTHER PRN (12:45)
[2017-04-20] MEDS: diphenhydrAMINE HCL 25 MG CAP PO SCH (12:45)
[2017-04-20 12:46] LABS: AUTOMATED NEUTROPHIL # 13.3 TH/MM3 (1.8-7.7); BASOPHIL # 0.1 TH/MM3 (0-0.2); BASOPHIL % 0.8 % (0.0-2.0); EOSINOPHIL # 0.2 TH/MM3 (0-0.4); EOSINOPHIL % 1.3 % (0.0-4.0); HEMO FLAGS DIFF FINAL; LYMPHOCYTE # 3.4 TH/MM3 (1.0-4.8); MEAN CORPUSCULAR HEMOGLOBIN 25.6 PG (27.0-34.0); MEAN CORPUSCULAR HGB CONC 31.3 % (32.0-36.0); MONO % 5.4 % (0.0-8.0); NEUT % 73.5 % (16.0-70.0); PLATELET COUNT 495 TH/MM3 (150-450); RED BLOOD COUNT 3.91 MIL/MM3 (4.00-5.30); RED CELL DISTRIBUTION WIDTH 17.4 % (11.6-17.2)
[2017-04-20 12:47] LABS: BLOOD, URINE NEG (NEG); COMMENT (UR) CULT NOT INDICATED; CULTURE IF INDICATED CULT NOT INDICATED; GLUCOSE,URINE NEG (NEG); KETONE, URINE NEG (NEG); NITRITE,URINE NEG (NEG); SQUAMOUS EPITHELIAL CELL URINE 2 /hpf (0-5); URINE COLOR YELLOW (YELLW/STRAW)
[2017-04-20] MEDS ORDERED: MORPHINE SULFATE 8 MG/ML INJ IV PUSH ONE (13:00)
[2017-04-20 13:08] LABS: BICARBONATE 28.4 MEQ/L (21.0-32.0); POTASSIUM 3.2 MEQ/L (3.5-5.1)
[2017-04-20] MEDS: IMMUNE GLOBULIN INJ 20 GM in SYRINGE/BAG 1 EA IV SCH (13:19)
--- NOTE | 2017-04-20 13:50 | HHI.HP ---
[facility] Service Family Medicine Primary Care Physician Non-Staff Admission Diagnosis myasthenia gravis Diagnoses: International Travel<30 Days: No Contact w/Intl Traveler<30days: No History of Present Illness Patient is a 42 year old female with a history of myasthenia gravis and anxiety who presents with 2 days of weakness and blurry/double vision. 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 She gets symptoms on and off chronically but noticed persistence of her symptoms 2 days ago. She fell on the right hip on 04/19/2017 due to the weakness: the legs gave out, associated with blurry and double vision. She fell on the right to the concrete floor and was able to walk after that with significant pain. The pain is localized to the anterior and side of the hip. She decided to come in today because she has IVIG many times in the past and this felt like a myasthenia crisis to her. She is having persistent right-sided double vision now. She notes her right side is always weaker during exacerbations and she endorses this now as well. Lastly, the speech is slurred; this started yesterday and is worse today. No difficulty or pain with swallowing. Last meal was last night (soft foods - mashed potatoes, mac and cheese). She denies chest pain, shortness of breath. She sees Dr. Banuelos (neurology) as an outpatient. Last office visit a while ago. Last time she had IVIG for a myasthenia flare was March 12, 2017 at [place]. She has had two exacerbations of her myasthenia in 2017. She was intubated in February 2017 at [facility] (4 days) due to respiratory failure associated with myasthenia exacerbation, with no reported associated infections. Ms. Mckinley in ED ([employer]) has spoken with Neurology who recommend starting IVIG. Patient was evaluated by Dr. Kirby in ED who will manage her myasthenia inpatient care. She takes a number of chronic medications for myasthenia including mestinon ( which she takes three times daily) and takes both short-acting and long-acting benzos for anxiety (psychiatrist Dr. Heath). Last doses were this morning. ( Eunice Pablo MD R1) Review of Systems Constitutional: DENIES: Fever, Weight gain, Weight loss, Chills, Change in appetite Eyes: COMPLAINS OF: Blurred vision, Diplopia Ears, nose, mouth, throat: DENIES: Tinnitus, Hearing loss, Vertigo, Oral lesions, Throat pain, Hoarseness, Epistaxis, Toothache Respiratory: COMPLAINS OF: Shortness of breath, DENIES: Cough, Sputum production Cardiovascular: DENIES: Chest pain, Palpitations, Dyspnea on Exertion, Lower Extremity Edema Gastrointestinal: DENIES: Abdominal pain, Black stools, Bloody stools, Constipation, Diarrhea, Nausea, Vomiting Genitourinary: DENIES: Urinary frequency, Urinary incontinence, Urgency, Hematuria, Dysuria Musculoskeletal: COMPLAINS OF: Joint pain (right hip), Back pain (chronic, bulging disc L5-s1), DENIES: Muscle aches, Stiffness, Joint Swelling, Neck pain Integumentary: DENIES: Rash, Breast masses, Breast skin changes, Nipple discharge Hematologic/lymphatic: DENIES: Bruising, Lymphadenopathy Immunologic/allergic: DENIES: Eczema, Urticaria Neurologic: DENIES: Abnormal gait, Headache, Paresthesias, Seizures Psychiatric: COMPLAINS OF: Anxiety, Depression, DENIES: Confusion, Mood changes, Hallucinations, Suicidal Ideation, Homicidal Ideation (Eunice Pablo MD R1) Past Family Social History Past Medical History myasthenia anxiety depression fibromyalgia Past Surgical History Thymus gland removed Tubal ligation [id number] placed November 2016 (Eunice Pablo MD R1) Allergies: Coded Allergies: Penicillin (Verified Allergy, Severe, Anaphylaxis, 03/08/17) Phenergan (Verified Adverse Reaction, Severe, NAUSEOUS, 03/08/17) Active Ordered Medications Inpatient Medications Acetaminophen (Tylenol) 650 mg Q24H PO ; Start 04/20/17 at 11:45; Stop 04/22/17 at 11:44 Diphenhydramine HCl (Benadryl Inj) 50 mg UNSCH PRN IV PUSH ALLERGIC REACTION; Start 04/20/17 at 12:45; Stop 04/23/17 at 12:44 Diphenhydramine HCl 25 mg 25 mg Q24H PO Last administered on 04/20/17t 12:45; Start 04/20/17 at 11:45; Stop 04/22/17 at 11:44 Epinephrine HCl (Adrenalin (1:1000) Inj) 0.3 mg Q10M PRN OTHER ANAPHYLACTIC REACTION; Start 04/20/17 at 12:45; Stop 04/23/17 at 12:44 Immune Globulin/ Syringe / Bag (Privigen Inj/ Syringe/Bag) 200 ml @ 15 mls/hr Q24H IV Last administered on 04/20/17 13:19; Start 04/20/17 at 12:45; Stop at 02:04 Morphine Sulfate (Morphine Inj) 2 mg ONCE ONCE IV PUSH Last administered on 13:21; Start 04/20/17 at 13:00; Stop 04/20/17 at 13:01; Status DC Ondansetron HCl (Zofran Inj) 4 mg ONCE ONCE IV PUSH Last administered on 13:22; Start 04/20/17 at 12:00; Stop 04/20/17 at 12:01; Status DC Sodium Chloride (NS 500 ml Inj) 500 ml @ 500 mls/hr Q24H IV Last administered on 04/20/17 11:45; Start 04/20/17 at 11:45; Stop 04/21/17 at 12:44 Sodium Chloride (NS Flush) 2 ml BID IV FLUSH ; Start 04/20/17 at 21:00 Family History No one in the family with myasthenia Father - pancreatic cancer age 62 Mother - healthy Siblings - healthy Children - healthy Social History Cigarettes - 1/2 ppd but more lately, requesting high-dose patch inpt Etoh - Denies Illicit - Denies She lives in an house, no stairs, and lives alone. At baseline she is able to walk and do ADLs/IADLs (Eunice Pablo MD R1) Physical Exam Vital Signs Vital Signs Date Time Temp Pulse Resp B/P Pulse Ox O2 Delivery O2 Flow Rate FiO2 04/20/17 12:32 86 18 107/67 100 Room Air 04/20/17 10:59 112 20 132/89 98 Room Air 04/20/17 10:38 98.7 116 20 118/81 100 Room Air Physical Exam GENERAL: Well-nourished, well-developed female in no apparent distress. Speech is slurred but patient is speaking in full sentences. On room air. SKIN: Warm and dry. No rashes or bruises. HEAD: Atraumatic. Normocephalic. The janet-oral area appears swollen but this is possibly patient's baseline. EYES: Pupils equal and round. No scleral icterus. No injection or drainage. ENT: TM on right occluded with cerumen. Left TM normal light reflex, no erythema or swelling. No nasal bleeding or discharge. Turbinates normal in appearance. Mucous membranes pink, dry. Uvula and tonsils are red but not swollen and no exudates. NECK: Trachea midline. No JVD. No lymphadenopathy. CARDIOVASCULAR: Regular rate and rhythm. No murmurs. CHEST: Left upper chest with noted port in place. It is clean, dry, intact with clear dressing. Surrounding skin is normal in appearance. There is currently IVIG being infused into it. RESPIRATORY: No accessory muscle use. Clear to auscultation without wheezes or rhonchi. Breath sounds equal bilaterally. GASTROINTESTINAL: Abdomen soft, non-tender, nondistended. Normal bowel sounds. Hepatic and splenic margins not palpable. MUSCULOSKELETAL: Hips examined: no bruises or notable abnormalities. No point tenderness over bony prominences or muscles surrounding the hips. Extremities without clubbing, cyanosis, or edema. No obvious deformities. NEUROLOGICAL: Awake and alert. fleece tier II - XII intact. Sensation intact on UE and LE bilaterally. No pronator drift. 4/5 strength throughout extremities with poor effort on right LE exam. Motor grossly within normal limits. No cerebellar signs. Slurred speech. PSYCHIATRIC: Appropriate mood and affect; insight and judgment normal. Not responding to internal stimuli. Denies SI/HI. Requests benzos and nicotine patch. Laboratory Laboratory Tests Test 04/20/17 04/20/17 04/20/17 12:12 12:25 12:30 Blood Gas Puncture Site RT RADIAL Blood Gas Patient Temperature 98.6 Blood Gas HCO3 25 Blood Gas Base Excess -0.1 Blood Gas Oxygen Saturation 91 Arterial Blood pH 7.35 Arterial Blood Partial 47 Pressure CO2 Arterial Blood Partial 72 Pressure O2 Arterial Blood Oxygen Content 12.9 Arterial Blood 4.7 Carboxyhemoglobin Arterial Blood Methemoglobin 0.5 Blood Gas Hemoglobin 10.1 White Blood Count 18.0 Red Blood Count 3.91 Hemoglobin 10.0 Hematocrit 32.0 Mean Corpuscular Volume 82.0 Mean Corpuscular Hemoglobin 25.6 Mean Corpuscular Hemoglobin 31.3 Concent Red Cell Distribution Width 17.4 Platelet Count 495 Mean Platelet Volume 7.8 Neutrophils (%) (Auto) 73.5 Lymphocytes (%) (Auto) 19.0 Monocytes (%) (Auto) 5.4 Eosinophils (%) (Auto) 1.3 Basophils (%) (Auto) 0.8 Neutrophils # (Auto) 13.3 Lymphocytes # (Auto) 3.4 Monocytes # (Auto) 1.0 Eosinophils # (Auto) 0.2 Basophils # (Auto) 0.1 CBC Comment DIFF FINAL Differential Comment Sodium Level 141 Potassium Level 3.2 Chloride Level 105 Carbon Dioxide Level 28.4 Anion Gap 8 Blood Urea Nitrogen 2 Creatinine 0.49 Estimat Glomerular Filtration 139 Rate Random Glucose 71 Calcium Level 8.8 Urine Color YELLOW Urine Turbidity CLEAR Urine pH 7.0 Urine Specific [place] 1.003 Urine Protein NEG Urine Glucose (UA) NEG Urine Ketones NEG Urine Occult Blood NEG Urine Nitrite NEG Urine Bilirubin NEG Urine Urobilinogen LESS THAN 2.0 Urine Leukocyte Esterase NEG Urine RBC LESS THAN 1 Urine WBC 1 Urine Squamous Epithelial 2 Cells Microscopic Urinalysis Comment CULT NOT INDICATED (Eunice Pablo MD R1) Result Diagram: 04/20/17 1225 04/20/17 1225 Imaging Last Impressions Hip and Pelvis X-Ray 04/20/17 0000 Signed Impressions: Service Date/Time: Thursday, April 20, 2017 12:01 - CONCLUSION: Unremarkable study. Mikhail Reece MD Chest X-Ray 04/20/17 0000 Signed Impressions: Service Date/Time: Thursday, April 20, 2017 12:03 - CONCLUSION: 1. Mild COPD changes. No acute abnormality. 2. Nngcuk-e-Aeax in good position. Hugh Knutson MD (Eunice Pablo MD R1) Assessment and Plan Assessment and Plan 42 year old female with history of multiple flares of myasthenia gravis, anxiety , and depression who presents with probable myasthenia gravis flare. Given history of severe flares including need for intubation in the past, she will be admitted for inpatient management. IVIG ordered in ED per neurology, who will manage her flare while inpatient. Code Status FULL CODE Discussed Condition With Dr. John, PGY3 Dr. Carrillo, PGY1 (Eunice Pablo MD R1) Attending Attestation THIS CASE WAS DISCUSSED WITH THE RESIDENT PHYSICIANS. I HAVE REVIEWED THE RECORD AND AGREE WITH THE ABOVE NOTE AND PLAN OF CARE WAS DISCUSSED. I HAVE AUTHORIZED THE ORDER FOR ADMISSION TO AN IN-PATIENT STATUS. (Dominique George MD) Problem List: (1) Myasthenia gravis Status: Acute Plan: Patient admitted to inpatient for management of myasthenia gravis flare. She sees Dr. Banuelos as outpatient and at admission complains of double vision on the right as well as right-sided weakness. Clinical exam is remarkable only for decreased effort on the right extremity, however, patient did fall on this hip at home yesterday. Neurology consulted, appreciate recommendations from Dr. Kirby: * IVIG initiated in ED, to be given daily for 2-5 days. Administration is through Txeeha-[id number]-Rzfk on left chest. * Imuran 50 mg 1 ordered * Sumatriptan 6 mg subcutaneous PRN per patient request given she has headaches at IVIG administration * Mestinon was ordered 120 mg every hours * Prednisone 20mg daily. * Respiratory support as needed. On room air currently, goal O2 sat >92% Neuro checks every 4 hours [facility] with [facility] near nursing station given possibility for respiratory distress (currently on room air in no distress ) Telemetry IV fluids at approximately maintenance rate given currently nothing by mouth, will order nursing bedside swallow. * Will order formal speech evaluation if there is any abnormality with the bedside swallow. * If patient has a normal bedside swallow can get a regular diet. Leukocytosis noted, likely related to chronic steroid use, will monitor (2) Acute pain of right hip Status: Acute Plan: Clinical exam is unremarkable. X-ray performed of the hip in the ED is unremarkable. * Tylenol 650 mg q6hr PRN for pain 1-10 * Give [place] 5/325mg for pain not relieved by Tylenol * Avoid more sedating medications given risk for respiratory depression with her myasthenia gravis (3) Anemia Status: Chronic Plan: Noted. Chronic. Current level is better than it was at discharge in March. No active bleeding reported. * Monitor CBC (4) Anxiety and depression Status: Chronic Plan: Chronic anxiety and depression. She denies suicidality or homicidality. Patient sees a psychiatrist as outpatient. Anxiety medications are requested. She states she takes both lorazepam as well as diazepam at home. She states she takes diazepam once at night She states she takes lorazepam 1 mg every 8 hours scheduled * Appreciate medicine reconciliation per vibration technician * Will administer any chronic psychotropic medications (antidepressants, antipsychotics) as indicated * If long-acting benzo is noted on her med rec, will likely restart given risk for withdrawal * Short-acting benzos will be administered cautiously * Risk of respiratory depression if overmedicated with benzos, patient aware of risks and we will avoid excessive administration of these types of medications. (5) Narcotic dependence Status: Acute Plan: Patient on benzos at home as above. Management as above. (6) Tobacco abuse Status: Chronic Plan: 1/2 ppd for years. She states she has been using more than this lately because of increased stress. * High-dose nicotine patch per patient request * Will camp counselor on smoking cessation (7) Fluids/Electrolytes/Nutrition/Prophylaxis Status: Acute Plan: Fluids: NS @ 100ml/hr while nothing by mouth, may discontinue after swallow eval Electrolytes: monitor and replete as needed, mild hypoK noted on admission, will replete PO Nutrition: NPO until informal speech eval, then regular diet DVT Prophylaxis: Early ambulation. Lovenox 40mg subQ q24hr/bilateral SCDs GI Prophylaxis: Protonix 40 mg by mouth daily given chronic steroid use (Eunice Pablo MD R1) Physician Certification 2 Midnight Certification Type: Admission for Inpatient Services Order for Inpatient Services The services are ordered in accordance with Medicare regulations or non- Medicare payer requirements, as applicable. In the case of services not specified as inpatient-only, they are appropriately provided as inpatient services in accordance with the 2-midnight benchmark. Estimated LOS (days): 3 days is the estimated time the patient will need to remain in the hospital, assuming treatment plan goals are met and no additional complications. Post-Hospital Plan: Not yet determined (Eunice Pablo MD R1) 2 Midnight Certification Type: Admission for Inpatient Services Post-Hospital Plan: Home (Dominique George MD) Eunice Pablo MD R1 Apr 20, 2017 13:50 Dominique George MD Apr 21, 2017 11:55
--- NOTE | 2017-04-20 13:56 | MB ---
cc: TAMMY NICHOLS M.D. DATE OF CONSULTATION: 04/20/2017 DATE OF : 1975 REASON FOR CONSULTATION Myasthenia gravis exacerbation. HISTORY OF PRESENT ILLNESS A 42-year-old woman with a longstanding history of myasthenia admitted multiple times for crisis, came in today because of weakness, diplopia of the right eye, legs giving out, actually had a fall and hit her hip. She follows with . She has a history as stated of myasthenia. She has a port in the left chest that has been implanted. ALLERGIES 1. PENICILLIN. 2. PHENERGAN. MEDICATIONS Home medicines are: 1. [place]. 2. Xanax. 3. Azathioprine which is Imuran, but the patient states that she has not had that medicine. 4. Mestinon. 5. Imitrex. 6. Questionable prednisone. 7. Amitriptyline. PHYSICAL EXAMINATION VITAL SIGNS: Temperature 98.7, heart rate 86, respiratory rate 18, blood pressure 107/67. NECK: Supple. No bruits. HEART: Regular. NEUROLOGIC: She is awake and alert. Nasal voice. Pupils reactive. No ptosis. She states she had diplopia. Face symmetrical. Mild facial diplegia. Motor-willson she has diffuse weakness in the neck muscles. Upper extremities without a drift. She has issues lifting her right leg due to a fall and her hip hurts, but x-ray shows nothing remarkable. Chest x-ray showed COPD changes and the port in good position. Toes are downgoing. Reflexes are normal. Gait is withheld. LABORATORY Labs are reviewed. White counts 18, hemoglobin 10, hematocrit 32, platelet count 495,000. Potassium 3.2. Blood gas pH 7.35, PCO2 47, PO2 72, bicarb 25. Urine negative. IMPRESSION Myasthenia gravis exacerbation. RECOMMENDATIONS Will start IVIG 0.4 gm/kg per day for 3-5 days. She wants to do 3 days. I told her if in 3 days she is better than we can stop it after that, otherwise it will be 5 days. I think that she should be started at least on 50 mg Imuran. Continue her Mestinon dose. If she truly is still on prednisone continue with that, if not start her on low-dose at least 5 mg daily. Will give her some Imitrex because she does get a headache when she gets the IVIG. Her leukocytosis looks more steroid-induced so if she truly is on steroids then go ahead and continue with what she has been taking. MD KATARZYNA Shaikh/PEDRO /1:40 PM /1:51 PM
[2017-04-20] MEDS ORDERED: XANA1TAB2 PO (14:19)
[2017-04-20] MEDS ORDERED: NALOXONE HCL 0.4 MG/ML AMP IV PRN ×2 (14:30→14:45)
[2017-04-20] MEDS ORDERED: SODIUM CHLORIDE 0.9% FLUSH 10 ML FLUSH IV FLUSH PRN (14:30)
[2017-04-20] MEDS ORDERED: MAGNESIUM HYDROXIDE SUSP 30 ML CUP PO PRN (14:30)
[2017-04-20] MEDS ORDERED: SENNOSIDES 8.6 MG TAB PO PRN (14:30)
[2017-04-20] MEDS ORDERED: LACTULOSE SYRUP 20 GM/30 ML CUP PO PRN (14:30)
[2017-04-20] MEDS ORDERED: BISACODYL 10 MG SUPP RECTAL PRN (14:30)
[2017-04-20] MEDS ORDERED: ACETAMINOPHEN 325 MG TAB PO PRN (14:45)
[2017-04-20 15:16] VITALS: BP 121/74; PULSE 83; RESP 16; O2SAT 100
[2017-04-20] MEDS ORDERED: POTASSIUM CHLORIDE 10 MEQ CONTROLLED RELEASE TAB PO ONE (16:00)
[2017-04-20] MEDS: ACETAMINOPHEN 325 MG TAB PO SCH (16:03)
[2017-04-20 16:08] VITALS: BP 113/82
[2017-04-20 16:20] LABS: MAGNESIUM 1.7 MG/DL (1.5-2.5)
[2017-04-20] MEDS ORDERED: azaTHIOprine 50 MG TAB PO ONE (17:00)
[2017-04-20] MEDS: ALPRAZolam 1 MG TAB PO SCH (17:01)
[2017-04-20] MEDS: ACETAMINOPHEN/HYDROcodone 325 MG/5 MG TAB PO PRN ×2 (17:02→21:18)
[2017-04-20] MEDS: ENOXAPARIN SODIUM 40 MG/0.4 ML SYRINGE SQ SCH (17:02)
[2017-04-20] MEDS: PANTOPRAZOLE SOD 40 MG DELAYED RELEASE TAB PO SCH (17:35)
[2017-04-20] MEDS: PYRIDOSTIGMINE BROMIDE 60 MG TAB PO SCH ×2 (17:35→21:18)
[2017-04-20] MEDS: NICOTINE 21 MG/24 HR PATCH T-DERMAL SCH (17:35)
[2017-04-20] MEDS: SODIUM CHLOR 0.9% 1000 ML INJ 1,000 ML IV SCH (17:42)
[2017-04-20 20:00] VITALS: BP 90/57; PULSE 88; RESP 18; TEMP 96.8; O2SAT 100
[2017-04-20] MEDS ORDERED: SODIUM CHLORIDE 0.9% FLUSH 10 ML FLUSH IV FLUSH SCH (21:00)
[2017-04-20] MEDS: SODIUM CHLORIDE 0.9% FLUSH 10 ML FLUSH IV FLUSH SCH (21:00)
[2017-04-20] MEDS: DOCUSATE SODIUM 50 MG/SENNA 8.6 MG TAB PO SCH (21:18)
[2017-04-20] MEDS: AMITRIPTYLINE HCL 25 MG TAB PO SCH (21:18)
[2017-04-21] VITALS (8 sets, daily range): BP systolic 99–166; BP diastolic 54–74; PULSE 75–97; RESP 17–20; TEMP 95.3–98.3; O2SAT 95–99
[2017-04-21] MEDS: ALPRAZolam 1 MG TAB PO SCH ×4 (01:07→18:16)
[2017-04-21] MEDS: SODIUM CHLOR 0.9% 1000 ML INJ 1,000 ML IV SCH ×3 (04:56→21:30)
[2017-04-21] MEDS: PYRIDOSTIGMINE BROMIDE 60 MG TAB PO SCH ×3 (05:19→20:35)
[2017-04-21 05:42] LABS: AUTOMATED NEUTROPHIL # 5.5 TH/MM3 (1.8-7.7); BASOPHIL # 0.1 TH/MM3 (0-0.2); BASOPHIL % 1.2 % (0.0-2.0); EOSINOPHIL # 0.2 TH/MM3 (0-0.4); EOSINOPHIL % 2.5 % (0.0-4.0); HEMATOCRIT 31.7 % (35.0-46.0); HEMO FLAGS DIFF FINAL; LYMPH % 27.1 % (9.0-44.0); LYMPHOCYTE # 2.3 TH/MM3 (1.0-4.8); MEAN CELL VOLUME 81.4 FL (80.0-100.0); MEAN CORPUSCULAR HEMOGLOBIN 25.6 PG (27.0-34.0); MEAN CORPUSCULAR HGB CONC 31.4 % (32.0-36.0); MONO % 5.1 % (0.0-8.0); NEUT % 64.1 % (16.0-70.0); PLATELET COUNT 482 TH/MM3 (150-450); RED CELL DISTRIBUTION WIDTH 17.8 % (11.6-17.2); WHITE BLOOD COUNT 8.6 TH/MM3 (4.0-11.0)
[2017-04-21 05:55] LABS: BICARBONATE 29.3 MEQ/L (21.0-32.0)
[2017-04-21] MEDS: ACETAMINOPHEN/HYDROcodone 325 MG/5 MG TAB PO PRN (05:55)
[2017-04-21] MEDS: NICOTINE 21 MG/24 HR PATCH T-DERMAL SCH (08:38)
[2017-04-21] MEDS: PANTOPRAZOLE SOD 40 MG DELAYED RELEASE TAB PO SCH (08:38)
[2017-04-21] MEDS: predniSONE 20 MG TAB PO SCH (08:38)
[2017-04-21] MEDS: DOCUSATE SODIUM 50 MG/SENNA 8.6 MG TAB PO SCH ×2 (08:38→20:35)
[2017-04-21] MEDS: CITALOPRAM HYDROBROMIDE 40 MG TAB PO SCH (08:38)
[2017-04-21] MEDS: REMOVE OLD PATCH T-DERMAL SCH (08:46)
[2017-04-21] MEDS: SODIUM CHLORIDE 0.9% FLUSH 10 ML FLUSH IV FLUSH SCH ×2 (09:00→20:34)
[2017-04-21] MEDS ORDERED: ACETAMINOPHEN/HYDROcodone 325 MG/5 MG TAB PO PRN (10:15)
[2017-04-21] MEDS ORDERED: NALOXONE HCL 0.4 MG/ML AMP IV PRN (10:15)
--- NOTE | 2017-04-21 10:49 | HHI.PR ---
Subjective Remarks doing better will receive day#2 ivig. vision better. Objective Vital Signs Date Time Temp Pulse Resp B/P Pulse Ox O2 Delivery O2 Flow Rate FiO2 04/21/17 08:22 96.7 76 20 100/54 99 04/21/17 04:05 79 04/21/17 04:00 95.7 86 20 113/66 99 04/21/17 01:00 95.3 75 18 99/55 95 04/20/17 20:00 96.8 88 18 90/57 100 04/20/17 16:08 98 16 113/82 100 04/20/17 15:16 83 16 121/74 100 Room Air 04/20/17 12:32 86 18 107/67 100 Room Air 04/20/17 10:59 112 20 132/89 98 Room Air I/O 04/20/17 04/20/17 04/20/17 04/21/17 04/21/17 04/21/17 07:00 15:00 23:00 07:00 15:00 23:00 Intake Total 500 ml Output Total 300 ml Balance 200 ml Intake IV Total 500 ml Output Urine Total 300 ml # Voids 4 awake alert speech better,does not look short of breath. perrla eomi diplopia better no ptosis weakness improved in ue right hip hurts painful from a fall gait per PT done today. Result Diagram: 04/21/17 0500 04/21/17 0500 Assessment and Plan Assessment and Plan MG exacerbation -ivig for 3 days and if needed can go to 5 days-d/w pt -PT prednisone,imuran and mestinon watch NIF as d/w resident yesterday if worse to icu d/c planning next 48hrs likely if continues to improve. Stella Kirby MD Apr 21, 2017 10:49
[2017-04-21] MEDS: ACETAMINOPHEN/HYDROcodone 325 MG/10 MG TAB PO PRN ×3 (11:33→20:55)
[2017-04-21] MEDS: SODIUM CHLORID 0.9% 500 ML INJ 500 ML IV SCH (11:58)
[2017-04-21] MEDS: ACETAMINOPHEN 325 MG TAB PO SCH (11:59)
[2017-04-21] MEDS: diphenhydrAMINE HCL 25 MG CAP PO SCH (11:59)
[2017-04-21] MEDS: ONDANSETRON HCL 4 MG/2 ML VIAL IVP PRN (14:56)
[2017-04-21] MEDS: IMMUNE GLOBULIN INJ 20 GM in SYRINGE/BAG 1 EA IV SCH (15:42)
--- NOTE | 2017-04-21 16:43 | HHI.FPPN ---
Problem Problem List: (1) Myasthenia gravis with exacerbation Plan: on IVIG, Neuro consulted (2) Right hip pain Plan: s/p fall due to weakness from #1. XRAY negative, Oral pain control (3) Anemia Plan: Chronic - monitoring (4) Anxiety and depression Plan: Stable - continue home meds (5) Fibromyalgia Plan: Stable - continue home meds Subjective Subjective 42 year old woman with h/o myasthenia gravis with frequent exacerbations and crisis was admitted for current exacerbation. She states she does feel slightly better today with her symptoms related to this -- her eye drooping is slightly improved and she states she feels a little less weak. Patient reports that historically she does not feel markedly better until 2-3 days of IVIG. She denies any predisposing factors like infection, fever, etc. She relates this current exacerbation to stress. She does report significant pain into her right hip which is where she had fallen. She states she has taken the pain medications as prescribed and she reports this is not touching her pain related to her hip. She denies Gi symptoms of nausea, vomiting or diarrhea, she denies urinary symptoms, chest pain or SOB. Hospital Objective Objective Laboratory Tests - Abnormals Test 04/21/17 05:00 Red Blood Count 3.90 MIL/MM3 Hemoglobin 10.0 GM/DL Hematocrit 31.7 % Mean Corpuscular Hemoglobin 25.6 PG Mean Corpuscular Hemoglobin 31.4 % Concent Red Cell Distribution Width 17.8 % Platelet Count 482 TH/MM3 Chloride Level 109 MEQ/L Anion Gap 3 MEQ/L Blood Urea Nitrogen 6 MG/DL Creatinine 0.46 MG/DL Calcium Level 8.1 MG/DL Vital Signs 04/20/17 04/21/17 04/21/17 04/21/17 20:00 01:00 04:00 04:05 Temp 96.8 95.3 95.7 Pulse 88 75 86 79 Resp 18 18 20 B/P 90/57 99/55 113/66 Pulse Ox 100 95 99 04/21/17 04/21/17 04/21/17 04/21/17 08:22 12:20 12:33 16:09 Temp 96.7 96.6 97.8 Pulse 76 97 87 Resp 20 B/P 100/54 166/68 123/65 Pulse Ox 99 98 97 INTAKE & OUTPUT 04/21/17 07:00 Intake Total 500 ml Output Total 300 ml Balance 200 ml Physical exam O. CONSTITUTIONAL/GEN: normally nourished, in NAD. EYES: conjunctiva normal, slight drooping of the eyelids but very mild LUNGS: clear A-P, respiratory effort is normal and she is moving air well, continuous pulse ox shows no issues with desaturation CARDIOVASCULAR: RR without murmur or gallop. No significant edema. GI/ABD: soft without masses, without organomegaly. : no CVA tenderness NEURO: She is ambulating without assistance - on exam strength in UE and LE is normal and equal SKIN: color normal, no rashes noted. HEME/LYMPH: no bruising, petechia or significant adenopathy PSYCH/MENTAL STATUS: Alert and oriented x 3. Assessment Assessment: (1) Myasthenia gravis with exacerbation Plan: Improving on IVIG. No signs of respiratory distress. appears to be a mild exacerbation at this time. (2) Right hip pain Plan: Likely soft tissue or bone bruise, XRAY showed no evidence of fracture. No improvement in symptoms. Inadequate pain control at this time. (3) Anxiety and depression Plan: Appears to be stable (4) Fibromyalgia Plan: Appears to be stable (5) Anemia Plan: Chronic and stable Assessment 42 year old with MG exacerbation that is showing signs of limited improvement with the IVIG (typical length of treatment is 5 days). With this type of patient, especially since she has required ventilatory support in the past, worry about possible progression to resp distress again with a future exacerbation. It does seem at this time that she is already improving, Her hip pain is not being adequately covered. Her chronic medical issues appear to be stable. PLAN PLAN At this time the patient will continue to receive IVIG from neurology and we will continue to monitor for any sign of respiratory concern or distress. Continue her home medications for her myasthenia gravis as well. This patient has freq exacerbations, she would likely benefit from outpatient fu at a tertiary care center for a full evaluation and medical management of her disease process. We will increase her pain medication to get better control of her hip pain. Encouraged ambulation as well to help relieve some of these symptoms as this appears to be a more soft tissue issue. Continue her home medication for her anxiety/depression/fibro. Continue to monitor her H/H for stability with her h/o anemia. Dominique George MD Apr 21, 2017 16:42
[2017-04-21] MEDS: ENOXAPARIN SODIUM 40 MG/0.4 ML SYRINGE SQ SCH (17:00)
--- NOTE | 2017-04-21 17:10 | EKG ---
Date Performed: 04/20/2017 Time Performed: 12:17:54 PTAGE: 42 years EKG: Sinus rhythm WITH OCCASIONAL SUPRAVENTRICULAR PREMATURE COMPLEXES RIGHT AXIS POSSIBLE LEFT ATRIAL ENLARGEMENT POS SIBLE RIGHT VENTRICULAR HYPERTROPHY ABNORMAL ECG PREVIOUS TRACING : 12/15/2016 16.08 Compared to prior tracing no significant change DOCTOR: Rogerio Mora Interpretating Date/Time 04/21/2017 17:09:44
[2017-04-21] MEDS: AMITRIPTYLINE HCL 25 MG TAB PO SCH (20:35)
[2017-04-22] VITALS: BP 119/87; PULSE 81; RESP 20; TEMP 97.3; O2SAT 93
[2017-04-22] MEDS: ALPRAZolam 1 MG TAB PO SCH ×5 (00:45→23:55)
[2017-04-22 04:00] VITALS: PULSE 81
[2017-04-22] MEDS: PYRIDOSTIGMINE BROMIDE 60 MG TAB PO SCH ×3 (06:05→22:42)
[2017-04-22] MEDS: SODIUM CHLOR 0.9% 1000 ML INJ 1,000 ML IV SCH (06:06)
[2017-04-22] MEDS: ACETAMINOPHEN/HYDROcodone 325 MG/10 MG TAB PO PRN ×5 (06:07→23:06)
[2017-04-22 08:00] VITALS: BP 122/68; PULSE 88; RESP 18; TEMP 97; O2SAT 99
[2017-04-22] MEDS: REMOVE OLD PATCH T-DERMAL SCH (09:00)
[2017-04-22] MEDS: DOCUSATE SODIUM 50 MG/SENNA 8.6 MG TAB PO SCH ×2 (09:00→22:42)
[2017-04-22] MEDS: SODIUM CHLORIDE 0.9% FLUSH 10 ML FLUSH IV FLUSH SCH ×2 (09:00→22:42)
[2017-04-22] MEDS: PANTOPRAZOLE SOD 40 MG DELAYED RELEASE TAB PO SCH (09:16)
[2017-04-22] MEDS: CITALOPRAM HYDROBROMIDE 40 MG TAB PO SCH (09:16)
[2017-04-22] MEDS: predniSONE 20 MG TAB PO SCH (09:16)
[2017-04-22] MEDS: NICOTINE 21 MG/24 HR PATCH T-DERMAL SCH (09:18)
--- NOTE | 2017-04-22 10:39 | HHI.FPPN ---
Subjective Remarks Patient was seen and evaluated this morning. She states that she needs to have right hip pain but this is improved since increasing the dose of [place] yesterday. She is still ambulating without difficulty. She is denying chest pain , shortness of breath, nausea, vomiting, new symptoms today. She feels she is about 50% improved from admission in regard to her weakness. She expect that she may need one more dose of IVIG, to be given this evening, and potentially will be ready to go home tomorrow. (Eunice Pablo MD R1) Objective Vitals Vital Signs Date Time Temp Pulse Resp B/P Pulse Ox O2 Delivery O2 Flow Rate FiO2 04/22/17 08:00 97.0 88 18 122/68 99 04/22/17 04:00 81 04/22/17 00:00 97.3 81 20 119/87 93 04/21/17 20:00 97.2 83 18 114/74 99 04/21/17 17:17 98.3 85 17 121/64 98 04/21/17 16:09 97.8 87 20 123/65 97 04/21/17 12:33 17 04/21/17 12:20 96.6 97 20 166/68 98 I/O 04/21/17 04/21/17 04/21/17 04/22/17 04/22/17 04/22/17 07:00 15:00 23:00 07:00 15:00 23:00 Intake Total 960 ml 1264 ml Balance 960 ml 1264 ml Intake Oral 960 ml 64 ml IV Total 1200 ml # Voids 4 5 7 (Eunice Pablo MD R1) Result Diagram: 04/21/17 0500 04/21/17 0500 Imaging Last Impressions Hip and Pelvis X-Ray 04/20/17 0000 Signed Impressions: Service Date/Time: Thursday, April 20, 2017 12:01 - CONCLUSION: Unremarkable study. Mikhail Reece MD Chest X-Ray 04/20/17 0000 Signed Impressions: Service Date/Time: Thursday, April 20, 2017 12:03 - CONCLUSION: 1. Mild COPD changes. No acute abnormality. 2. Kuxfky-i-Nksi in good position. Hugh Knutson MD Objective Remarks GENERAL: Well-nourished, well-developed female in no apparent distress. She is sitting up in bed. SKIN: Warm and dry. No rashes or bruises. HEAD: Atraumatic. Normocephalic. EYES: Pupils equal and round. No scleral icterus. No injection or drainage. ENT: No nasal bleeding or discharge. NECK: Trachea midline. No JVD. CARDIOVASCULAR: Regular rate and rhythm. No murmurs. CHEST: Left upper chest with noted port in place. It is clean, dry, intact with clear dressing. Surrounding skin is normal in appearance. RESPIRATORY: No accessory muscle use. Clear to auscultation without wheezes or rhonchi. Breath sounds equal bilaterally. GASTROINTESTINAL: Abdomen soft, non-tender, nondistended. Normal bowel sounds. MUSCULOSKELETAL: Extremities without clubbing, cyanosis, or edema. No obvious deformities. Hips nontender to palpation. NEUROLOGICAL: Awake and alert. usps letter carrier II - XII intact. Moving spontaneously. Strength is grossly normal. Motor grossly within normal limits. No cerebellar signs. Speech is normal. PSYCHIATRIC: Appropriate mood and affect; insight and judgment normal. Not responding to internal stimuli. Medications and IVs Inpatient Medications Acetaminophen (Tylenol) 650 mg Q6H PRN PO PAIN 1-10 OR TEMP > 101 F; Start 08/27 at 14:45; Stop 04/21/17 at 10:19; Status DC Acetaminophen/ Hydrocodone Bitart ([place] 5-325 Mg) 1 tab Q4H PRN PO PAIN SCALE 1 TO 5; Start 04/21/17 at 10:15 Acetaminophen/ Hydrocodone Bitart ([place] 10-325 Mg) 1 tab Q4H PRN PO PAIN SCALE 6 TO 10 Last administered on 04/22/17 10:05; Start 04/21/17 at 10:15 Alprazolam (Xanax) 1 mg Q6H PO Last administered on 04/22/17 06:05; Start 08/27 at 18:00 Amitriptyline HCl (Elavil) 25 mg HS PO Last administered on 04/21/17 20:35; Start 04/20/17 at 21:00 Azathioprine (Imuran) 50 mg ONCE ONCE PO Last administered on 04/20/17 17:35 ; Start 04/20/17 at 17:00; Stop 04/20/17 at 17:01; Status DC Bisacodyl (Dulcolax Supp) 10 mg DAILY PRN RECTAL SEVERE CONSITIPATION; Start at 14:30 Citalopram Hydrobromide (CeleXA) 40 mg DAILY PO Last administered on 04/22/17 09:16; Start 04/21/17 at 09:00 Diphenhydramine HCl (Benadryl Inj) 50 mg UNSCH PRN IV PUSH ALLERGIC REACTION; Start 04/20/17 at 12:45; Stop 04/23/17 at 12:44 Diphenhydramine HCl 25 mg 25 mg Q24H PO Last administered on 04/21/17 11:59; Start 04/20/17 at 11:45; Stop 04/22/17 at 11:44 Enoxaparin Sodium (Lovenox Inj) 40 mg Q24H SQ ; Start 04/20/17 at 17:00 Epinephrine HCl (Adrenalin (1:1000) Inj) 0.3 mg Q10M PRN OTHER ANAPHYLACTIC REACTION; Start 04/20/17 at 12:45; Stop 04/23/17 at 12:44 Immune Globulin/ Syringe / Bag (Privigen Inj/ Syringe/Bag) 200 ml @ 15 mls/hr Q24H IV Last administered on 04/21/17 15:42; Start 04/20/17 at 12:45; Stop at 02:04; Status DC Lactulose (Lactulose Liq) 30 ml DAILY PRN PO SEVERE CONSITIPATION; Start at 14:30 Magnesium Hydroxide (Milk Of Magnesia Liq) 30 ml Q12H PRN PO MILD - MODERATE CONSTIPATION; Start 04/20/17 at 14:30 Miscellaneous Information 1 DAILY T-DERMAL Last administered on 04/22/17 09:00 ; Start 04/21/17 at 09:00 Morphine Sulfate (Morphine Inj) 2 mg ONCE ONCE IV PUSH Last administered on 13:21; Start 04/20/17 at 13:00; Stop 04/20/17 at 13:01; Status DC Naloxone HCl (Narcan Inj) 0.4 mg UNSCH PRN IV SEE LABEL COMMENTS; Start at 14:45 Nicotine (Habitrol 21 Mg Patch.24 Hr) 1 patch DAILY T-DERMAL Last administered on 04/22/17 09:18; Start 04/20/17 at 17:00 Ondansetron HCl (Zofran Inj) 4 mg Q6H PRN IVP NAUSEA OR VOMITING Last administered on 04/21/17 14:56; Start 04/20/17 at 14:30 Pantoprazole Sodium (Protonix) 40 mg DAILY PO Last administered on 04/22/17 09 :16; Start 04/20/17 at 17:00 Potassium Chloride (KCl) 30 meq ONCE ONCE PO Last administered on 04/20/17 17 :01; Start 04/20/17 at 16:00; Stop 04/20/17 at 16:01; Status DC Prednisone (Deltasone) 20 mg DAILY PO Last administered on 04/22/17 09:16; Start 04/21/17 at 09:00 Pyridostigmine [place] 120 mg 120 mg Q8HR PO Last administered on 04/22/17 06: 05; Start 04/20/17 at 17:00 Senna/Docusate Sodium (Bonita-Colace) 1 tab BID PO Last administered on 20:35; Start 04/20/17 at 21:00 Sennosides (Senokot) 17.2 mg Q12H PRN PO MODERATE - SEVERE CONSTIPATION; Start 04/20/17 at 14:30 Sodium Chloride (NS 1000 ml Inj) 1,000 ml @ 100 mls/hr Q10H IV Last administered on 04/22/17 06:06; Start 04/20/17 at 15:30 Sodium Chloride (NS 500 ml Inj) 500 ml @ 500 mls/hr Q24H IV Last administered on 04/21/17 11:58; Start 04/20/17 at 11:45; Stop 04/21/17 at 12:44; Status DC Sodium Chloride (NS Flush) 2 ml UNSCH PRN IV FLUSH FLUSH AFTER USING IV ACCESS ; Start 04/20/17 at 14:30 Sumatriptan Succinate (Imitrex Inj) 6 mg UNSCH PRN SQ MIGRAINE HEADACHE; Start 04/20/17 at 13:45 (Eunice Pablo MD R1) Urinary Catheter: No (Eunice Pablo MD R1) Vascular Central Line Catheter: Yes Assessment to: Continue Reason for Continuation [id number], chronic use, inserted November 2016 (Eunice Pablo MD R1) A/P Assessment and Plan 42 year old female with history of multiple flares of myasthenia gravis, anxiety , and depression who presented with probable myasthenia gravis flare. Given history of severe flares including need for intubation in the past, she was admitted for inpatient management. IVIG ordered in ED per neurology, who will manage her flare while inpatient. Discharge Planning Possibly 1-3 days, pending neurology recommendations. She requires inpatient management for IVIG administration. She will be discharged to home. (Eunice Pablo MD R1) Attending Attestation Patient seen and examined. Case reviewed and discussed with the resident team. Agree with plan of care as discussed with me and documented in the resident note. (Dominique George MD) Problem List: (1) Myasthenia gravis Status: Acute Plan: * Continue current management per neurology * Hospital course is below Hospital course: Patient admitted to inpatient for management of myasthenia gravis flare. She sees Dr. Banuelos as outpatient and at admission complains of double vision on the right as well as right-sided weakness. Clinical exam on admission remarkable only for decreased effort on the right extremity, however, patient did fall on this hip at home on 04/18/17 Neurology consulted, appreciate recommendations from Dr. Kirby: * IVIG initiated in ED, to be given daily for 2-5 days. Administration is through [id number] on left chest. * Imuran 50 mg 1 ordered in ED * Sumatriptan 6 mg subcutaneous PRN per patient request given she has headaches at IVIG administration * Mestinon was ordered 120 mg every 8 hours * Prednisone 20mg daily. * Respiratory support as needed. On room air currently, goal O2 sat >92% Neuro checks every 4 hours Telemetry - no events, will discontinue IV fluids at approximately maintenance rate given currently nothing by mouth, will order nursing bedside swallow. * Will order formal speech evaluation if there is any abnormality with the bedside swallow. * If patient has a normal bedside swallow can get a regular diet. Leukocytosis noted on admission since resolved, likely related to chronic steroid use, will monitor (2) Acute pain of right hip Status: Acute Plan: Clinical exam is unremarkable. X-ray performed of the hip in the ED is unremarkable. * Give [place] 10/325mg q4hr PRN * Avoid more sedating medications given risk for respiratory depression with her myasthenia gravis (3) Anemia Status: Chronic Plan: Noted. Chronic. Current level is better than it was at discharge in March. No active bleeding reported. H/H stable on repeat. (4) Anxiety and depression Status: Chronic Plan: Reported. Chronic. Patient is receiving Xanax 1 mg every 6 hours scheduled. Avoid oversedation with any more narcotics. Continuing home dose Celexa 40 mg daily Continuing home dose amitriptyline 25 mg nightly Hospital course: * Chronic anxiety and depression. She denies suicidality or homicidality. Patient sees a psychiatrist as outpatient. Anxiety medications are requested at time of admission. She states she takes both lorazepam as well as diazepam at home. * Appreciate medicine reconciliation per pharmacy associate * Risk of respiratory depression if overmedicated with benzos, patient aware of risks and we will avoid excessive administration of these types of medications. (5) Narcotic dependence Status: Acute Plan: Patient on benzos at home as above, chronically also on tramadol 50 mg twice a day for fibromyalgia. Management as above. Chronic stressors discussed in detail at time of admission. Patient will likely need to be weaned off chronic narcotics as outpatient. (6) Tobacco abuse Status: Chronic Plan: 1/2 ppd for years. She states she has been using more than this lately because of increased stress. * High-dose nicotine patch per patient request * Will social services counselor on smoking cessation (7) Fluids/Electrolytes/Nutrition/Prophylaxis Status: Acute Plan: Fluids: By mouth hydration Electrolytes: monitor and replete as needed Nutrition: Regular diet DVT Prophylaxis: Early ambulation. Lovenox 40mg subQ q24hr/bilateral SCDs ordered, refusing. GI Prophylaxis: Protonix 40 mg by mouth daily given chronic steroid use (Eunice Pablo MD R1) Eunice Pablo MD R1 Apr 22, 2017 10:39 Dominique George MD Apr 22, 2017 17:05
[2017-04-22 12:00] VITALS: BP 116/78; PULSE 95; RESP 18; TEMP 96.8; O2SAT 100
[2017-04-22 16:00] VITALS: BP 119/73; PULSE 90; RESP 18; TEMP 97.4; O2SAT 97
[2017-04-22] MEDS: ENOXAPARIN SODIUM 40 MG/0.4 ML SYRINGE SQ SCH (17:00)
[2017-04-22] MEDS: INSULIN ASPART SUPPLEMENTAL SCALE SQ SCH ×2 (17:45→22:40)
[2017-04-22] MEDS: azaTHIOprine 50 MG TAB PO SCH (19:02)
[2017-04-22 20:00] VITALS: BP 145/77; PULSE 80; RESP 20; TEMP 97.6; O2SAT 98
[2017-04-22] MEDS: AMITRIPTYLINE HCL 25 MG TAB PO SCH (22:42)
[2017-04-22] MEDS ORDERED: diphenhydrAMINE HCL 25 MG CAP PO SCH (23:30)
[2017-04-22] MEDS ORDERED: SODIUM CHLORID 0.9% 500 ML INJ 500 ML IV SCH (23:30)
[2017-04-22] MEDS: ACETAMINOPHEN 325 MG TAB PO SCH (23:46)
[2017-04-23] VITALS (9 sets, daily range): BP systolic 110–128; BP diastolic 67–80; PULSE 77–107; RESP 18–20; TEMP 95.4–98; O2SAT 97–100
[2017-04-23] MEDS ORDERED: DEXTROSE 5% IN WATE 500 ML INJ 500 ML OTHER SCH (00:24)
[2017-04-23] MEDS ORDERED: diphenhydrAMINE HCL 50 MG/ML VIAL IV PUSH PRN (00:30)
[2017-04-23] MEDS ORDERED: EPINEPHrine HCL (1:1000) 1 MG/ML VIAL OTHER PRN (00:30)
[2017-04-23] MEDS ORDERED: IMMUNE GLOBULIN INJ 20 GM in SYRINGE/BAG 1 EA IV SCH (01:00)
[2017-04-23] MEDS: ACETAMINOPHEN/HYDROcodone 325 MG/10 MG TAB PO PRN ×4 (06:36→20:54)
[2017-04-23] MEDS: ALPRAZolam 1 MG TAB PO SCH ×3 (06:36→18:00)
[2017-04-23] MEDS: PYRIDOSTIGMINE BROMIDE 60 MG TAB PO SCH ×3 (06:37→20:55)
[2017-04-23] MEDS: INSULIN ASPART SUPPLEMENTAL SCALE SQ SCH ×4 (06:37→21:00)
[2017-04-23] MEDS: REMOVE OLD PATCH T-DERMAL SCH (09:00)
[2017-04-23 09:12] LABS: HEMATOCRIT 34.8 % (35.0-46.0); MEAN CELL VOLUME 82.7 FL (80.0-100.0); MEAN CORPUSCULAR HEMOGLOBIN 25.1 PG (27.0-34.0); MEAN CORPUSCULAR HGB CONC 30.4 % (32.0-36.0); PLATELET COUNT 470 TH/MM3 (150-450); RED BLOOD COUNT 4.21 MIL/MM3 (4.00-5.30); RED CELL DISTRIBUTION WIDTH 17.5 % (11.6-17.2); REVIEW FLAG FINAL
[2017-04-23 09:38] LABS: POTASSIUM 4.1 MEQ/L (3.5-5.1)
[2017-04-23] MEDS: SUMAtriptan INJ 6 MG/0.5 ML VIAL SQ PRN ×2 (11:00→15:54)
[2017-04-23] MEDS: NICOTINE 21 MG/24 HR PATCH T-DERMAL SCH (11:09)
[2017-04-23] MEDS: SODIUM CHLORIDE 0.9% FLUSH 10 ML FLUSH IV FLUSH SCH ×2 (11:12→20:54)
[2017-04-23] MEDS: PANTOPRAZOLE SOD 40 MG DELAYED RELEASE TAB PO SCH (11:12)
[2017-04-23] MEDS: CITALOPRAM HYDROBROMIDE 40 MG TAB PO SCH (11:12)
[2017-04-23] MEDS: predniSONE 20 MG TAB PO SCH (11:12)
[2017-04-23] MEDS: DOCUSATE SODIUM 50 MG/SENNA 8.6 MG TAB PO SCH ×2 (11:12→20:53)
--- NOTE | 2017-04-23 11:52 | HHI.FPPN ---
Subjective Remarks Patient was seen and evaluated this morning. She was sitting in bed, eating breakfast. She states that she feels a lot better today. She denies chest, abdominal and general body pains, heart palpitations, shortness of breath, nausea/vomiting, diarrhea and constipation. Patient says that pain medication alleviates her hip pain. She says she walks in her room and was encouraged to walk in the holliday with assistance. She agrees to stay for two additional IVIG treatments. (Venice Wihtaker MD R1) Objective Vitals Vital Signs Date Time Temp Pulse Resp B/P Pulse Ox O2 Delivery O2 Flow Rate FiO2 04/23/17 08:00 96.9 90 19 111/79 100 04/23/17 04:00 96.4 77 20 124/74 99 04/23/17 01:45 97.6 90 19 122/68 100 04/23/17 01:15 97.3 85 19 121/68 100 04/23/17 01:00 98.0 83 19 119/73 99 04/23/17 00:57 18 04/23/17 00:00 97.3 85 20 111/68 99 04/22/17 20:00 97.6 80 20 145/77 98 04/22/17 16:00 97.4 90 18 119/73 97 04/22/17 12:00 96.8 95 18 116/78 100 I/O 04/22/17 04/22/17 04/22/17 04/23/17 04/23/17 04/23/17 07:00 15:00 23:00 07:00 15:00 23:00 Intake Total 1264 ml 480 ml 240 ml Balance 1264 ml 480 ml 240 ml Intake Oral 64 ml 480 ml 240 ml IV Total 1200 ml # Voids 7 3 3 # Bowel Movements 0 0 (Venice Whitaker MD R1) Result Diagram: 04/23/17 0751 04/23/17 0751 Imaging Last Impressions Hip and Pelvis X-Ray 04/20/17 0000 Signed Impressions: Service Date/Time: Thursday, April 20, 2017 12:01 - CONCLUSION: Unremarkable study. Mikhail Reece MD Chest X-Ray 04/20/17 0000 Signed Impressions: Service Date/Time: Thursday, April 20, 2017 12:03 - CONCLUSION: 1. Mild COPD changes. No acute abnormality. 2. Sbeawu-k-Yhkp in good position. Hugh Knutson MD Objective Remarks GENERAL: Well-nourished, well-developed female in no apparent distress. She is sitting up in bed. SKIN: Warm and dry. No rashes or bruises. HEAD: Atraumatic. Normocephalic. EYES: Pupils equal and round. No scleral icterus. No injection or drainage. ENT: No nasal bleeding or discharge. NECK: Trachea midline. No JVD. CARDIOVASCULAR: Regular rate and rhythm. No murmurs. CHEST: Left upper chest with noted port in place. It is clean, dry, intact with clear dressing. Surrounding skin is normal in appearance. RESPIRATORY: No accessory muscle use. Clear to auscultation without wheezes or rhonchi. Breath sounds equal bilaterally. GASTROINTESTINAL: Abdomen soft, non-tender, nondistended. Normal bowel sounds. MUSCULOSKELETAL: Extremities without clubbing, cyanosis, or edema. No obvious deformities. Hips nontender to palpation. NEUROLOGICAL: Awake and alert. cnc programmer II - XII intact. Moving spontaneously. Strength is grossly normal. Motor grossly within normal limits. No cerebellar signs. Speech is normal. PSYCHIATRIC: Appropriate mood and affect; insight and judgment normal. Not responding to internal stimuli. Medications and IVs Current Medications Medications (Trade) Dose Ordered Sig/Gómez Route Start Time Stop Time Status Last Admin (Benadryl Inj) 50 mg UNSCH PRN IV PUSH 04/20/17 12:45 04/23/17 12:44 (Adrenalin (1:1000) Inj) 0.3 mg Q10M PRN OTHER 04/20/17 12:45 04/23/17 12:44 (NS Flush) 2 ml BID IV FLUSH 04/20/17 21:00 04/23/17 11:12 (Imitrex Inj) 6 mg UNSCH PRN SQ 04/20/17 13:45 04/23/17 11:00 (Deltasone) 20 mg DAILY PO 04/21/17 09:00 04/23/17 11:12 (Mestinon) 120 mg Q8HR PO 04/20/17 17:00 04/23/17 06:37 (NS Flush) 2 ml UNSCH PRN IV FLUSH 04/20/17 14:30 (Zofran Inj) 4 mg Q6H PRN IVP 04/20/17 14:30 04/21/17 14:56 (Narcan Inj) 0.4 mg UNSCH PRN IV 04/20/17 14:30 (Bonita-Colace) 1 tab BID PO 04/20/17 21:00 04/23/17 11:12 (Milk Of Magnesia Liq) 30 ml Q12H PRN PO 04/20/17 14:30 (Senokot) 17.2 mg Q12H PRN PO 04/20/17 14:30 (Dulcolax Supp) 10 mg DAILY PRN RECTAL 04/20/17 14:30 (Lactulose Liq) 30 ml DAILY PRN PO 04/20/17 14:30 (Lovenox Inj) 40 mg Q24H SQ 04/20/17 17:00 (Habitrol 21 Mg Patch.24 Hr) 1 patch DAILY T-DERMAL 04/20/17 17:00 04/23/17 11:09 Miscellaneous Information 1 DAILY T-DERMAL 04/21/17 09:00 04/23/17 09:00 (Protonix) 40 mg DAILY PO 04/20/17 17:00 04/23/17 11:12 (Xanax) 1 mg Q6H PO 04/20/17 18:00 04/23/17 06:36 (Elavil) 25 mg HS PO 04/20/17 21:00 04/22/17 22:42 (CeleXA) 40 mg DAILY PO 04/21/17 09:00 04/23/17 11:12 (Narcan Inj) 0.4 mg UNSCH PRN IV 04/20/17 14:45 ([place] 5-325 Mg) 1 tab Q4H PRN PO 04/21/17 10:15 ([place] 10-325 Mg) 1 tab Q4H PRN PO 04/21/17 10:15 04/23/17 10:59 (Imuran) 50 mg DAILY@18 PO 04/22/17 18:00 04/25/17 18:00 04/22/17 19:02 Acetaminophen 650 mg 650 mg Q24H PO 04/22/17 23:30 04/24/17 23:29 04/22/17 23:46 (D5W 500 ml Inj) 500 ml @ 30 mls/hr [id number] OTHER 04/23/17 00:24 04/23/17 17:03 04/23/17 01:46 Diphenhydramine HCl 25 mg 25 mg Q24H PO 04/22/17 23:30 04/23/17 15:00 04/22/17 23:47 (Privigen Inj/ Syringe/Bag) 200 ml @ 16.02 mls/ hr Q24H IV 04/23/17 01:00 04/23/17 13:30 04/23/17 01:00 (Benadryl Inj) 50 mg UNSCH PRN IV PUSH 04/23/17 00:30 04/23/17 15:00 (Adrenalin (1:1000) Inj) 0.3 mg Q10M PRN OTHER 04/23/17 00:30 04/23/17 15:00 (Venice Whitaker MD R1) Urinary Catheter: No (Venice Whitaker MD R1) Vascular Central Line Catheter: No (Venice Whitaker MD R1) A/P Assessment and Plan 42 year old female with history of multiple flares of myasthenia gravis, anxiety , and depression who presented with probable myasthenia gravis flare. Given history of severe flares including need for intubation in the past, she was admitted for inpatient management. IVIG ordered in ED per neurology, who will manage her flare while inpatient. Discharge Planning Anticipated discharge Wednesday morning, following last IVIG treatment Wednesday night. She will be discharged to home. (Venice Whitaker MD R1) Attending Attestation The exam, history, and the medical decision-making described in the above note were completed with the assistance of the resident physician. I reviewed and agree with the findings presented. I attest that I had a [id number] encounter with the patient on the same day, and personally performed and documented my assessment and findings in the medical record. (Dominique George MD) Problem List: (1) Myasthenia gravis Status: Acute Plan: * Continue current management per neurology * Hospital course is below Hospital course: Patient admitted to inpatient for management of myasthenia gravis flare. She sees Dr. Banuelos as outpatient and at admission complains of double vision on the right as well as right-sided weakness. Clinical exam on admission remarkable only for decreased effort on the right extremity, however, patient did fall on this hip at home on 04/18/17 Neurology consulted, appreciate recommendations from Dr. Kirby: * IVIG initiated in ED, to be given daily for 5 days. Administration is through [place] on left chest. * Imuran 50 mg 1 ordered in ED * Sumatriptan 6 mg subcutaneous PRN per patient request given she has headaches at IVIG administration * Mestinon was ordered 120 mg every 8 hours * Prednisone 20mg daily. * Respiratory support as needed. On room air currently, goal O2 sat >92% Neuro checks every 4 hours Leukocytosis noted on admission since resolved, likely related to chronic steroid use, will monitor. (2) Acute pain of right hip Status: Acute Plan: Clinical exam is unremarkable. X-ray performed of the hip in the ED is unremarkable. * Give [place] 10/325mg q4hr PRN. * Avoid more sedating medications given risk for respiratory depression with her myasthenia gravis. (3) Anemia Status: Chronic Plan: Noted. Chronic. Current level is better than it was at discharge in March. No active bleeding reported. H/H stable on repeat. (4) Anxiety and depression Status: Chronic Plan: Reported. Chronic. Patient is receiving Xanax 1 mg every 6 hours scheduled. Avoid oversedation with any more narcotics. Continuing home dose Celexa 40 mg daily Continuing home dose amitriptyline 25 mg nightly Hospital course: * Chronic anxiety and depression. She denies suicidality or homicidality. Patient sees a psychiatrist as outpatient. Anxiety medications are requested at time of admission. She states she takes both lorazepam as well as diazepam at home. * Appreciate medicine reconciliation per pharmacy buyer * Risk of respiratory depression if overmedicated with benzos, patient aware of risks and we will avoid excessive administration of these types of medications. (5) Narcotic dependence Status: Acute Plan: Patient on benzos at home as above, chronically also on tramadol 50 mg twice a day for fibromyalgia. Management as above. Chronic stressors discussed in detail at time of admission. Patient will likely need to be weaned off chronic narcotics as outpatient. (6) Tobacco abuse Status: Chronic Plan: 1/2 ppd for years. She states she has been using more than this lately because of increased stress. * High-dose nicotine patch per patient request * Will tour counselor on smoking cessation (7) Fluids/Electrolytes/Nutrition/Prophylaxis Status: Acute Plan: Fluids: By mouth hydration Electrolytes: monitor and replete as needed Nutrition: Regular diet DVT Prophylaxis: Early ambulation. Lovenox 40mg subQ q24hr/bilateral SCDs ordered, refusing. GI Prophylaxis: Protonix 40 mg by mouth daily given chronic steroid use (Venice Whitaker MD R1) Venice Whitaker MD R1 Apr 23, 2017 11:52 Dominique George MD Apr 23, 2017 15:45
[2017-04-23] MEDS: ENOXAPARIN SODIUM 40 MG/0.4 ML SYRINGE SQ SCH (17:00)
[2017-04-23] MEDS: azaTHIOprine 50 MG TAB PO SCH (18:00)
[2017-04-23] MEDS: AMITRIPTYLINE HCL 25 MG TAB PO SCH (20:53)
[2017-04-23] MEDS: ACETAMINOPHEN 325 MG TAB PO SCH (23:45)
[2017-04-24] VITALS (11 sets, daily range): BP systolic 107–138; BP diastolic 71–86; PULSE 63–108; RESP 17–21; TEMP 95.6–98.4; O2SAT 97–100
[2017-04-24] MEDS: ALPRAZolam 1 MG TAB PO SCH ×4 (00:07→18:24)
[2017-04-24] MEDS: diphenhydrAMINE HCL 25 MG CAP PO SCH (00:33)
[2017-04-24] MEDS: ACETAMINOPHEN 325 MG TAB PO SCH (00:33)
[2017-04-24] MEDS ORDERED: diphenhydrAMINE HCL 50 MG/ML VIAL IV PUSH PRN (00:45)
[2017-04-24] MEDS ORDERED: EPINEPHrine HCL (1:1000) 1 MG/ML VIAL OTHER PRN (00:45)
[2017-04-24] MEDS: ONDANSETRON HCL 4 MG/2 ML VIAL IVP PRN (02:12)
[2017-04-24] MEDS: IMMUNE GLOBULIN INJ 20 GM in SYRINGE/BAG 1 EA IV SCH (02:20)
[2017-04-24] MEDS: DEXTROSE 5% IN WATE 500 ML INJ 500 ML OTHER SCH ×2 (02:25→16:46)
[2017-04-24] MEDS: ACETAMINOPHEN/HYDROcodone 325 MG/10 MG TAB PO PRN ×4 (03:14→22:52)
[2017-04-24] MEDS: SUMAtriptan INJ 6 MG/0.5 ML VIAL SQ PRN ×2 (06:19→18:27)
[2017-04-24] MEDS: PYRIDOSTIGMINE BROMIDE 60 MG TAB PO SCH ×3 (06:22→22:51)
[2017-04-24] MEDS: INSULIN ASPART SUPPLEMENTAL SCALE SQ SCH ×4 (07:00→21:00)
[2017-04-24 07:06] LABS: AUTOMATED NEUTROPHIL # 8.4 TH/MM3 (1.8-7.7); BASOPHIL # 0.3 TH/MM3 (0-0.2); BASOPHIL % 2.7 % (0.0-2.0); EOSINOPHIL # 0.1 TH/MM3 (0-0.4); EOSINOPHIL % 0.8 % (0.0-4.0); HEMATOCRIT 35.9 % (35.0-46.0); HEMO FLAGS DIFF FINAL; LYMPH % 22.3 % (9.0-44.0); LYMPHOCYTE # 2.7 TH/MM3 (1.0-4.8); MEAN CELL VOLUME 81.7 FL (80.0-100.0); MEAN CORPUSCULAR HGB CONC 31.8 % (32.0-36.0); MONO % 5.6 % (0.0-8.0); NEUT % 68.6 % (16.0-70.0); PLATELET COUNT 542 TH/MM3 (150-450); RED BLOOD COUNT 4.39 MIL/MM3 (4.00-5.30); RED CELL DISTRIBUTION WIDTH 17.8 % (11.6-17.2); WHITE BLOOD COUNT 12.3 TH/MM3 (4.0-11.0)
[2017-04-24 07:29] LABS: BICARBONATE 32.6 MEQ/L (21.0-32.0); POTASSIUM 3.8 MEQ/L (3.5-5.1)
--- NOTE | 2017-04-24 08:22 | HHI.FPPN ---
Subjective Remarks Patient was seen and evaluated this morning. She states that she feels well. She continues to experience hip pain but walked with PT yesterday. Patient endorses improved vision from day of admission. She denies chest and abdominal pain, heart palpitations, shortness of breath, nausea/vomiting, diarrhea and constipation. (Venice Whitaker MD R1) Objective Vitals Vital Signs Date Time Temp Pulse Resp B/P Pulse Ox O2 Delivery O2 Flow Rate FiO2 04/24/17 05:37 96 04/24/17 04:09 18 135/84 100 04/24/17 03:09 96.4 63 21 132/72 100 04/24/17 02:47 95.6 64 19 118/75 98 04/24/17 02:31 97.1 77 20 133/86 100 04/24/17 00:00 96.6 92 18 118/73 99 04/23/17 20:00 95.4 96 20 110/67 97 04/23/17 16:00 97.1 101 18 125/80 100 04/23/17 12:00 96.9 107 18 128/73 99 I/O 04/23/17 04/23/17 04/23/17 04/24/17 04/24/17 04/24/17 07:00 15:00 23:00 07:00 15:00 23:00 Intake Total 240 ml 720 ml 360 ml 240 ml Balance 240 ml 720 ml 360 ml 240 ml Intake Oral 240 ml 720 ml 360 ml 240 ml # Voids 3 1 # Bowel Movements 0 0 (Venice Whitaker MD R1) Result Diagram: 04/24/17 0600 04/24/17 0600 Imaging Last Impressions Hip and Pelvis X-Ray 04/20/17 0000 Signed Impressions: Service Date/Time: Thursday, April 20, 2017 12:01 - CONCLUSION: Unremarkable study. K. Sanjeev Reece MD Chest X-Ray 04/20/17 0000 Signed Impressions: Service Date/Time: Thursday, April 20, 2017 12:03 - CONCLUSION: 1. Mild COPD changes. No acute abnormality. 2. Wnyaiv-s-[id number] in good position. Hugh Knutson MD Objective Remarks GENERAL: Well-nourished, well-developed female in no apparent distress. She is sitting up in bed. SKIN: Warm and dry. No rashes or bruises. HEAD: Atraumatic. Normocephalic. EYES: Pupils equal and round. No scleral icterus. No injection or drainage. ENT: No nasal bleeding or discharge. NECK: Trachea midline. No JVD. CARDIOVASCULAR: Regular rate and rhythm. No murmurs. CHEST: Left upper chest with noted port in place. It is clean, dry, intact with clear dressing. Surrounding skin is normal in appearance. RESPIRATORY: No accessory muscle use. Clear to auscultation without wheezes or rhonchi. Breath sounds equal bilaterally. GASTROINTESTINAL: Abdomen soft, non-tender, nondistended. Normal bowel sounds. MUSCULOSKELETAL: Extremities without clubbing, cyanosis, or edema. No obvious deformities. Hips nontender to palpation. NEUROLOGICAL: Awake and alert. sole stapler welt II - XII intact. Moving spontaneously. Strength is grossly normal. Motor grossly within normal limits. Speech is normal. PSYCHIATRIC: Appropriate mood and affect; insight and judgment normal. Not responding to internal stimuli. Medications and IVs Current Medications Medications (Trade) Dose Ordered Sig/Gómez Route Start Time Stop Time Status Last Admin (NS Flush) 2 ml BID IV FLUSH 04/20/17 21:00 04/23/17 20:54 (Imitrex Inj) 6 mg UNSCH PRN SQ 04/20/17 13:45 04/24/17 06:19 (Deltasone) 20 mg DAILY PO 04/21/17 09:00 04/23/17 11:12 (Mestinon) 120 mg Q8HR PO 04/20/17 17:00 04/24/17 06:22 (NS Flush) 2 ml UNSCH PRN IV FLUSH 04/20/17 14:30 (Zofran Inj) 4 mg Q6H PRN IVP 04/20/17 14:30 04/24/17 02:12 (Narcan Inj) 0.4 mg UNSCH PRN IV 04/20/17 14:30 (Bonita-Colace) 1 tab BID PO 04/20/17 21:00 04/23/17 20:53 (Milk Of Magnesia Liq) 30 ml Q12H PRN PO 04/20/17 14:30 (Senokot) 17.2 mg Q12H PRN PO 04/20/17 14:30 (Dulcolax Supp) 10 mg DAILY PRN RECTAL 04/20/17 14:30 (Lactulose Liq) 30 ml DAILY PRN PO 04/20/17 14:30 (Lovenox Inj) 40 mg Q24H SQ 04/20/17 17:00 (Habitrol 21 Mg Patch.24 Hr) 1 patch DAILY T-DERMAL 04/20/17 17:00 04/23/17 11:09 Miscellaneous Information 1 DAILY T-DERMAL 04/21/17 09:00 04/23/17 09:00 (Protonix) 40 mg DAILY PO 04/20/17 17:00 04/23/17 11:12 (Xanax) 1 mg Q6H PO 04/20/17 18:00 04/24/17 06:22 (Elavil) 25 mg HS PO 04/20/17 21:00 04/23/17 20:53 (CeleXA) 40 mg DAILY PO 04/21/17 09:00 04/23/17 11:12 (Narcan Inj) 0.4 mg UNSCH PRN IV 04/20/17 14:45 (Honeydew 5-325 Mg) 1 tab Q4H PRN PO 04/21/17 10:15 (Honeydew 10-325 Mg) 1 tab Q4H PRN PO 04/21/17 10:15 04/24/17 03:14 (Imuran) 50 mg DAILY@18 PO 04/22/17 18:00 04/25/17 18:00 04/23/17 18:00 (Tylenol) 650 mg Q24H PO 04/22/17 23:30 04/24/17 23:29 04/24/17 00:33 Acetaminophen 650 mg 650 mg Q24H PO 04/23/17 23:45 04/25/17 23:44 (D5W 500 ml Inj) 500 ml @ 30 mls/hr [id number] OTHER 04/24/17 00:39 04/25/17 09:58 04/24/17 02:25 Diphenhydramine HCl 25 mg 25 mg Q24H PO 04/23/17 23:45 04/25/17 23:44 04/24/17 00:33 (Privigen Inj/ Syringe/Bag) 200 ml @ 15.66 mls/ hr Q24H IV 04/24/17 01:00 04/25/17 13:47 04/24/17 02:20 (Benadryl Inj) 50 mg UNSCH PRN IV PUSH 04/24/17 00:45 04/27/17 00:44 (Adrenalin (1:1000) Inj) 0.3 mg Q10M PRN OTHER 04/24/17 00:45 04/27/17 00:44 (Venice Whitaker MD R1) Urinary Catheter: No (Venice Whitaker MD R1) Vascular Central Line Catheter: No (Venice Whitaker MD R1) A/P Assessment and Plan 42 year old female with history of multiple flares of myasthenia gravis, anxiety , and depression who presented with probable myasthenia gravis flare. Given history of severe flares including need for intubation in the past, she was admitted for inpatient management. IVIG ordered in ED per neurology, who will manage her flare while inpatient. Discharge Planning Anticipated discharge Wednesday morning, following last IVIG treatment Wednesday night. She will be discharged home. (Venice Whitaker MD R1) Attending Attestation Case reviewed and discussed with the resident team. Agree with plan of care as discussed with me and documented in the resident note. (Dominique George MD) Problem List: (1) Myasthenia gravis Status: Acute Plan: * Continue current management per neurology * Hospital course is below Hospital course: Patient admitted to inpatient for management of myasthenia gravis flare. She sees Dr. Banuelos as outpatient and at admission complains of double vision on the right as well as right-sided weakness. Clinical exam on admission remarkable only for decreased effort on the right extremity, however, patient did fall on this hip at home on 04/18/17 Neurology consulted, appreciate recommendations from Dr. Kirby: * IVIG initiated in ED, to be given daily for 5 days. Administration is through [id number] on left chest. * Imuran 50 mg 1 ordered in ED * Sumatriptan 6 mg subcutaneous PRN per patient request given she has headaches at IVIG administration * Mestinon was ordered 120 mg every 8 hours * Prednisone 20mg daily. * Respiratory support as needed. On room air currently, goal O2 sat >92% Neuro checks every 4 hours Leukocytosis noted on admission since resolved, likely related to chronic steroid use, will monitor. (2) Acute pain of right hip Status: Acute Plan: Clinical exam is unremarkable. X-ray performed of the hip in the ED is unremarkable. * Give Honeydew 10/325mg q4hr PRN. * Avoid more sedating medications given risk for respiratory depression with her myasthenia gravis. (3) Anemia Status: Chronic Plan: Noted. Chronic. Current level is better than it was at discharge in March. No active bleeding reported. H/H stable on repeat. (4) Anxiety and depression Status: Chronic Plan: Reported. Chronic. Patient is receiving Xanax 1 mg every 6 hours scheduled. Avoid oversedation with any more narcotics. Continuing home dose Celexa 40 mg daily Continuing home dose amitriptyline 25 mg nightly Hospital course: * Chronic anxiety and depression. She denies suicidality or homicidality. Patient sees a psychiatrist as outpatient. Anxiety medications are requested at time of admission. She states she takes both lorazepam as well as diazepam at home. * Appreciate medicine reconciliation per del[facility]rer pharmacy * Risk of respiratory depression if overmedicated with benzos, patient aware of risks and we will avoid excessive administration of these types of medications. (5) Narcotic dependence Status: Acute Plan: Patient on benzos at home as above, chronically also on tramadol 50 mg twice a day for fibromyalgia. Management as above. Chronic stressors discussed in detail at time of admission. Patient will likely need to be weaned off chronic narcotics as outpatient. (6) Tobacco abuse Status: Chronic Plan: 1/2 ppd for years. She states she has been using more than this lately because of increased stress. * High-dose nicotine patch per patient request * Will eligibility counselor on smoking cessation (7) Fluids/Electrolytes/Nutrition/Prophylaxis Status: Acute Plan: Fluids: * By mouth hydration. Electrolytes: * Monitor and replete as needed. Nutrition: * Regular diet. DVT Prophylaxis: * Early ambulation. * Lovenox 40mg subQ q24hr. GI Prophylaxis: * Protonix 40 mg by mouth daily given chronic steroid use. (Venice Whitaker MD R1) Venice Whitaker MD R1 Apr 24, 2017 08:22 Dominique George MD Apr 25, 2017 07:50
[2017-04-24] MEDS: REMOVE OLD PATCH T-DERMAL SCH (09:00)
[2017-04-24] MEDS: SODIUM CHLORIDE 0.9% FLUSH 10 ML FLUSH IV FLUSH SCH ×2 (09:00→22:53)
[2017-04-24] MEDS: NICOTINE 21 MG/24 HR PATCH T-DERMAL SCH (10:23)
[2017-04-24] MEDS: predniSONE 20 MG TAB PO SCH (10:24)
[2017-04-24] MEDS: CITALOPRAM HYDROBROMIDE 40 MG TAB PO SCH (10:25)
[2017-04-24] MEDS: PANTOPRAZOLE SOD 40 MG DELAYED RELEASE TAB PO SCH (10:25)
[2017-04-24] MEDS: DOCUSATE SODIUM 50 MG/SENNA 8.6 MG TAB PO SCH ×2 (10:25→22:51)
[2017-04-24] MEDS ORDERED: HYDR-3583 PO (10:48)
[2017-04-24] MEDS ORDERED: PRED20 PO (10:48)
[2017-04-24] MEDS ORDERED: AZAT50 PO (10:48)
--- NOTE | 2017-04-24 10:49 | HHI.DCPOC ---
Discharge Care Plan Diagnosis: (1) Myasthenia exacerbation (2) Anxiety (3) Right hip pain Goals to Promote Your Health * To prevent worsening of your condition and complications * To maintain your health at the optimal level Directions to Meet Your Goals Take your medications as prescribed Follow your dietary instruction Follow activity as directed Keep your appointments as scheduled Take your immunizations and boosters as scheduled If your symptoms worsen call your PCP, if no PCP go to Urgent Care Center or Emergency Room Smoking is Dangerous to Your Health. Avoid second hand smoke Call the 24-hour hour crisis hotline for domestic abuse at [place] Whitaker MD R1 Apr 24, 2017 10:49
[2017-04-24] MEDS: ENOXAPARIN SODIUM 40 MG/0.4 ML SYRINGE SQ SCH (16:21)
[2017-04-24] MEDS: azaTHIOprine 50 MG TAB PO SCH (16:22)
[2017-04-24] MEDS: AMITRIPTYLINE HCL 25 MG TAB PO SCH (21:00)
[2017-04-25] VITALS: BP 126/88; PULSE 89; RESP 18; TEMP 97; O2SAT 98
[2017-04-25] MEDS: ALPRAZolam 1 MG TAB PO SCH ×2 (00:51→05:52)
[2017-04-25] MEDS: diphenhydrAMINE HCL 25 MG CAP PO SCH (00:51)
[2017-04-25] MEDS: ACETAMINOPHEN 325 MG TAB PO SCH (00:52)
[2017-04-25] MEDS: IMMUNE GLOBULIN INJ 20 GM in SYRINGE/BAG 1 EA IV SCH (01:36)
[2017-04-25 04:00] VITALS: BP 142/88; PULSE 89; RESP 18; TEMP 96.8; O2SAT 99
[2017-04-25] MEDS: PYRIDOSTIGMINE BROMIDE 60 MG TAB PO SCH (05:50)
[2017-04-25] MEDS: ACETAMINOPHEN/HYDROcodone 325 MG/10 MG TAB PO PRN ×2 (05:51→10:09)
[2017-04-25] MEDS: SUMAtriptan INJ 6 MG/0.5 ML VIAL SQ PRN (05:52)
[2017-04-25 07:00] VITALS: PULSE 85
[2017-04-25] MEDS: INSULIN ASPART SUPPLEMENTAL SCALE SQ SCH (07:00)
[2017-04-25 08:00] VITALS: BP 119/80; PULSE 83; RESP 20; TEMP 97; O2SAT 100
[2017-04-25] MEDS: PANTOPRAZOLE SOD 40 MG DELAYED RELEASE TAB PO SCH (08:38)
[2017-04-25] MEDS: DOCUSATE SODIUM 50 MG/SENNA 8.6 MG TAB PO SCH (08:38)
[2017-04-25] MEDS: CITALOPRAM HYDROBROMIDE 40 MG TAB PO SCH (08:38)
[2017-04-25] MEDS: predniSONE 20 MG TAB PO SCH (08:38)
[2017-04-25] MEDS: NICOTINE 21 MG/24 HR PATCH T-DERMAL SCH (08:39)
[2017-04-25] MEDS: SODIUM CHLORIDE 0.9% FLUSH 10 ML FLUSH IV FLUSH SCH (08:41)
[2017-04-25] MEDS: REMOVE OLD PATCH T-DERMAL SCH (08:41)
--- NOTE | 2017-04-25 12:13 | HHI.FPPN ---
Subjective Remarks Patient was seen and evaluated this morning. She states that she feels well. She continues to experience hip pain but walked in the holliday yesterday. She denies chest and abdominal pain, heart palpitations, shortness of breath, nausea /vomiting, diarrhea and constipation. Patient is ready to go home. (Venice Whitaker MD R1) Objective Vitals Vital Signs Date Time Temp Pulse Resp B/P Pulse Ox O2 Delivery O2 Flow Rate FiO2 04/25/17 08:00 97.0 83 20 119/80 100 04/25/17 07:00 85 04/25/17 04:00 96.8 89 18 142/88 99 04/25/17 00:00 97.0 89 18 126/88 98 04/24/17 20:00 97.0 95 18 138/71 97 04/24/17 16:00 97.5 108 18 112/80 98 04/24/17 12:00 98.4 98 18 121/79 99 I/O 04/24/17 04/24/17 04/24/17 04/25/17 04/25/17 04/25/17 06:59 14:59 22:59 06:59 14:59 22:59 Intake Total 240 ml 580 ml Balance 240 ml 580 ml Intake Oral 240 ml 580 ml # Voids 1 4 4 # Bowel Movements 0 1 (Venice Whitaker MD R1) Result Diagram: 04/24/17 0600 04/24/17 0600 Imaging Last Impressions Hip and Pelvis X-Ray 04/20/17 0000 Signed Impressions: Service Date/Time: Thursday, April 20, 2017 12:01 - CONCLUSION: Unremarkable study. Mikhail Reece MD Chest X-Ray 04/20/17 0000 Signed Impressions: Service Date/Time: Thursday, April 20, 2017 12:03 - CONCLUSION: 1. Mild COPD changes. No acute abnormality. 2. [id number]-g-Ydmh in good position. Hugh Knutson MD Objective Remarks GENERAL: Well-nourished, well-developed female in no apparent distress. She is sitting up in bed. SKIN: Warm and dry. No rashes or bruises. HEAD: Atraumatic. Normocephalic. EYES: Pupils equal and round. No scleral icterus. No injection or drainage. ENT: No nasal bleeding or discharge. NECK: Trachea midline. No JVD. CARDIOVASCULAR: Regular rate and rhythm. No murmurs. CHEST: Left upper chest with noted port in place. It is clean, dry, intact with clear dressing. Surrounding skin is normal in appearance. RESPIRATORY: No accessory muscle use. Clear to auscultation without wheezes or rhonchi. Breath sounds equal bilaterally. GASTROINTESTINAL: Abdomen soft, non-tender, nondistended. Normal bowel sounds. MUSCULOSKELETAL: Extremities without clubbing, cyanosis, or edema. No obvious deformities. Hips nontender to palpation. NEUROLOGICAL: Awake and alert. clerical associate II - XII intact. Moving spontaneously. Strength is grossly normal. Motor grossly within normal limits. Speech is normal. PSYCHIATRIC: Appropriate mood and affect; insight and judgment normal. Not responding to internal stimuli. Medications and IVs Current Medications Sodium Chloride (NS 500 ml Inj) 500 ml @ 500 mls/hr Q24H IV Last administered on 04/21/17 11:58 Acetaminophen (Tylenol) 650 mg Q24H PO Last administered on 04/21/17 11:59 Diphenhydramine HCl 25 mg 25 mg Q24H PO Last administered on 04/21/17 11:59 Immune Globulin/ Syringe / Bag (Privigen Inj/ Syringe/Bag) 200 ml @ 15 mls/hr Q24H IV Last administered on 04/21/17 15:42 Ondansetron HCl (Zofran Inj) 4 mg ONCE ONCE IV PUSH Last administered on 13:22 Morphine Sulfate (Morphine Inj) 2 mg ONCE ONCE IV PUSH Last administered on 13:21 Sodium Chloride (NS Flush) 2 ml BID IV FLUSH Last administered on 04/25/17 08: 41 Azathioprine (Imuran) 50 mg ONCE ONCE PO Last administered on 04/20/17 17:35 Sumatriptan Succinate (Imitrex Inj) 6 mg UNSCH PRN SQ MIGRAINE HEADACHE Last administered on 04/25/17 05:52 Prednisone (Deltasone) 20 mg DAILY PO Last administered on 04/25/17 08:38 Pyridostigmine Conrath 120 mg 120 mg Q8HR PO Last administered on 04/25/17 05: 50 Sodium Chloride (NS 1000 ml Inj) 1,000 ml @ 100 mls/hr Q10H IV Last administered on 04/22/17 06:06 Ondansetron HCl (Zofran Inj) 4 mg Q6H PRN IVP NAUSEA OR VOMITING Last administered on 04/24/17 02:12 Naloxone HCl (Narcan Inj) 0.4 mg UNSCH PRN IV SEE LABEL COMMENTS Senna/Docusate Sodium (Bonita-Colace) 1 tab BID PO Last administered on 08:38 Nicotine (Habitrol 21 Mg Patch.24 Hr) 1 patch DAILY T-DERMAL Last administered on 04/25/17 08:39 Miscellaneous Information 1 DAILY T-DERMAL Last administered on 04/25/17 08:41 Pantoprazole Sodium (Protonix) 40 mg DAILY PO Last administered on 04/25/17 08 :38 Alprazolam (Xanax) 1 mg Q6H PO Last administered on 04/25/17 05:52 Amitriptyline HCl (Elavil) 25 mg HS PO Last administered on 04/23/17 20:53 Citalopram Hydrobromide (CeleXA) 40 mg DAILY PO Last administered on 04/25/17 08:38 Acetaminophen/ Hydrocodone Bitart ([place] 5-325 Mg) 1 tab Q4H PRN PO BREAKTHROUGH PAIN Last administered on 04/21/17 05:55 Potassium Chloride (KCl) 30 meq ONCE ONCE PO Last administered on 04/20/17 17 :01 Acetaminophen/ Hydrocodone Bitart ([place] 10-325 Mg) 1 tab Q4H PRN PO PAIN SCALE 6 TO 10 Last administered on 04/25/17 10:09 Insulin Aspart (NovoLOG SUPPLEMENTAL SCALE) 1 ACHS SLIDING SCALE SQ Last administered on 04/23/17 16:00 Azathioprine 50 mg 50 mg DAILY@18 PO Last administered on 04/24/17 16:22 Sodium Chloride (NS 500 ml Inj) 500 ml @ 500 mls/hr Q24H IV Last administered on 04/22/17 23:30 Acetaminophen 650 mg 650 mg Q24H PO Last administered on 04/24/17 00:33 Dextrose (D5W 500 ml Inj) 500 ml @ 30 mls/hr [id number] OTHER Last administered on 04/23/17 01:46 Diphenhydramine HCl 25 mg 25 mg Q24H PO Last administered on 04/22/17 23:47 Immune Globulin/ Syringe / Bag (Privigen Inj/ Syringe/Bag) 200 ml @ 16.02 mls/ hr Q24H IV Last administered on 04/23/17 01:00 Dextrose (D5W 500 ml Inj) 500 ml @ 30 mls/hr [id number] OTHER Last administered on 04/24/17 02:25 Diphenhydramine HCl 25 mg 25 mg Q24H PO Last administered on 04/25/17 00:51 Immune Globulin/ Syringe / Bag (Privigen Inj/ Syringe/Bag) 200 ml @ 15.66 mls/ hr Q24H IV Last administered on 04/25/17 01:36 Heparin Sodium (Porcine) (Heparin Central Flush) 100 units ONCE ONCE IV FLUSH Last administered on 04/25/17 11:40 (Venice Whitaker MD R1) Urinary Catheter: No (Venice Whitaker MD R1) Vascular Central Line Catheter: No (Venice Whitaker MD R1) A/P Assessment and Plan 42 year old female with history of multiple flares of myasthenia gravis, anxiety , and depression who presented with probable myasthenia gravis flare. Given history of severe flares including need for intubation in the past, she was admitted for inpatient management. IVIG ordered in ED per neurology, who will manage her flare while inpatient. Discharge Planning Discharge home today. (Venice Whitaker MD R1) Attending Attestation The exam, history, and the medical decision-making described in the above note were completed with the assistance of the resident physician. I reviewed and agree with the findings presented. I attest that I had a [id number] encounter with the patient on the same day, and personally performed and documented my assessment and findings in the medical record. (Dominique George MD) Problem List: (1) Myasthenia gravis Status: Acute Plan: * Continue current management per neurology * Hospital course is below Hospital course: Patient admitted to inpatient for management of myasthenia gravis flare. She sees Dr. Banuelos as outpatient and at admission complains of double vision on the right as well as right-sided weakness. Clinical exam on admission remarkable only for decreased effort on the right extremity, however, patient did fall on this hip at home on 7/9/17 Neurology consulted, appreciate recommendations from Dr. Kirby: * IVIG initiated in ED, to be given daily for 5 days. Administration is through [id number] on left chest. * Imuran 50 mg daily PO * Sumatriptan 6 mg subcutaneous PRN per patient request given she has headaches at IVIG administration * Mestinon was ordered 120 mg every 8 hours * Prednisone 20mg daily. * Respiratory support as needed. On room air currently, goal O2 sat >92% Neuro checks every 4 hours Leukocytosis noted on admission since resolved, likely related to chronic steroid use, will monitor. (2) Acute pain of right hip Status: Acute Plan: Clinical exam is unremarkable. X-ray performed of the hip in the ED is unremarkable. * Give [place] 10/325mg q4hr PRN. * Avoid more sedating medications given risk for respiratory depression with her myasthenia gravis. (3) Anemia Status: Chronic Plan: Noted. Chronic. Current level is better than it was at discharge in March. No active bleeding reported. H/H stable on repeat. (4) Anxiety and depression Status: Chronic Plan: Reported. Chronic. Patient is receiving Xanax 1 mg every 6 hours scheduled. Avoid oversedation with any more narcotics. Continuing home dose Celexa 40 mg daily Continuing home dose amitriptyline 25 mg nightly Hospital course: * Chronic anxiety and depression. She denies suicidality or homicidality. Patient sees a psychiatrist as outpatient. Anxiety medications are requested at time of admission. She states she takes both lorazepam as well as diazepam at home. * Appreciate medicine reconciliation per pharmacy sales assistant * Risk of respiratory depression if overmedicated with benzos, patient aware of risks and we will avoid excessive administration of these types of medications. (5) Narcotic dependence Status: Acute Plan: Patient on benzos at home as above, chronically also on tramadol 50 mg twice a day for fibromyalgia. Management as above. Chronic stressors discussed in detail at time of admission. Patient will likely need to be weaned off chronic narcotics as outpatient. (6) Tobacco abuse Status: Chronic Plan: 1/2 ppd for years. She states she has been using more than this lately because of increased stress. * High-dose nicotine patch per patient request * Will financial services counselor on smoking cessation (7) Fluids/Electrolytes/Nutrition/Prophylaxis Status: Acute Plan: Fluids: * By mouth hydration. Electrolytes: * Monitor and replete as needed. Nutrition: * Regular diet. DVT Prophylaxis: * Early ambulation. * Lovenox 40mg subQ q24hr. GI Prophylaxis: * Protonix 40 mg by mouth daily given chronic steroid use. (Venice Whitaker MD R1) [place] Whitaker MD R1 Apr 25, 2017 12:13 Dominique George MD Apr 25, 2017 12:39
--- NOTE | 2017-04-25 12:28 | HHI.DS ---
Discharge Summary Admission Date Apr 20, 2017 at 12:34 Discharge Date: Apr 25, 2017 Admitting Diagnosis Myasthenia gravis (1) Myasthenia gravis Diagnosis: Principal (2) Acute pain of right hip Diagnosis: Secondary (3) Anemia Diagnosis: Secondary (4) Anxiety and depression Diagnosis: Secondary (5) Narcotic dependence Diagnosis: Secondary (6) Tobacco abuse Diagnosis: Secondary Consultants Dr. Kirby, Neurology Brief History Patient is a 42 year old female with a history of myasthenia gravis and anxiety who presents with 2 days of weakness and blurry/double vision. It became difficult to coremaker bench and write, and the legs became wobbly. She gets symptoms on and off chronically but noticed persistence of her symptoms 2 days ago. She fell on the right hip on 04/19/2017 due to the weakness: the legs gave out, associated with blurry and double vision. She fell on the right to the concrete floor and was able to walk after that with significant pain. The pain is localized to the anterior and side of the hip. She decided to come in today because she has IVIG many times in the past and this felt like a myasthenia crisis to her. She is having persistent right-sided double vision now. She notes her right side is always weaker during exacerbations and she endorses this now as well. Lastly, the speech is slurred; this started yesterday and is worse today. No difficulty or pain with swallowing. Last meal was last night (soft foods - mashed potatoes, mac and cheese). She denies chest pain, shortness of breath. She sees Dr. Banuelos (neurology) as an outpatient. Last office visit a while ago. Last time she had IVIG for a myasthenia flare was March 12, 2017 at [place]. She has had two exacerbations of her myasthenia in 2017. She was intubated in February 2017 at [facility] (4 days) due to respiratory failure associated with myasthenia exacerbation, with no reported associated infections. Ms. Mckinley in ED ([employer]) has spoken with Neurology who recommend starting IVIG. Patient was evaluated by Dr. Kirby in ED who will manage her myasthenia inpatient care. She takes a number of chronic medications for myasthenia including mestinon ( which she takes three times daily) and takes both short-acting and long-acting benzos for anxiety (psychiatrist Dr. Heath). Last doses were this morning. CBC/BMP: 04/24/17 0600 04/24/17 0600 Significant Findings Laboratory Tests Test 04/23/17 04/24/17 07:51 06:00 Hemoglobin 10.6 GM/DL 11.4 GM/DL (11.6-15.3) (11.6-15.3) Hematocrit 34.8 % (35.0-46.0) Mean Corpuscular Hemoglobin 25.1 PG 26.0 PG (27.0-34.0) (27.0-34.0) Mean Corpuscular Hemoglobin 30.4 % 31.8 % Concent (32.0-36.0) (32.0-36.0) Red Cell Distribution Width 17.5 % 17.8 % (11.6-17.2) (11.6-17.2) Platelet Count 470 TH/MM3 542 TH/MM3 (150-450) (150-450) Anion Gap 2 MEQ/L (5-15) 1 MEQ/L (5-15) Creatinine 0.43 MG/DL (0.50-1.00) Random Glucose 66 MG/DL (74-106) White Blood Count 12.3 TH/MM3 (4.0-11.0) Basophils (%) (Auto) 2.7 % (0.0-2.0) Neutrophils # (Auto) 8.4 TH/MM3 (1.8-7.7) Basophils # (Auto) 0.3 TH/MM3 (0-0.2) Sodium Level 135 MEQ/L (136-145) Carbon Dioxide Level 32.6 MEQ/L (21.0-32.0) Imaging Last Impressions Hip and Pelvis X-Ray 04/20/17 0000 Signed Impressions: Service Date/Time: Thursday, April 20, 2017 12:01 - CONCLUSION: Unremarkable study. Mikhail Reece MD Chest X-Ray 04/20/17 0000 Signed Impressions: Service Date/Time: Thursday, April 20, 2017 12:03 - CONCLUSION: 1. Mild COPD changes. No acute abnormality. 2. Pmotch-i-[id number] in good position. Hugh Knutson MD PE at Discharge GENERAL: Well-nourished, well-developed female in no apparent distress. She is sitting up in bed. SKIN: Warm and dry. No rashes or bruises. HEAD: Atraumatic. Normocephalic. EYES: Pupils equal and round. No scleral icterus. No injection or drainage. ENT: No nasal bleeding or discharge. NECK: Trachea midline. No JVD. CARDIOVASCULAR: Regular rate and rhythm. No murmurs. CHEST: Left upper chest with noted port in place. It is clean, dry, intact with clear dressing. Surrounding skin is normal in appearance. RESPIRATORY: No accessory muscle use. Clear to auscultation without wheezes or rhonchi. Breath sounds equal bilaterally. GASTROINTESTINAL: Abdomen soft, non-tender, nondistended. Normal bowel sounds. MUSCULOSKELETAL: Extremities without clubbing, cyanosis, or edema. No obvious deformities. Hips nontender to palpation. NEUROLOGICAL: Awake and alert. 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 Moving spontaneously. Strength is grossly normal. Motor grossly within normal limits. Speech is normal. PSYCHIATRIC: Appropriate mood and affect; insight and judgment normal. Not responding to internal stimuli. Hospital Course Patient admitted to inpatient for management of myasthenia gravis flare. She sees Dr. Banuelos as outpatient and at admission complains of double vision on the right as well as right-sided weakness. Clinical exam on admission remarkable only for decreased effort on the right extremity, however, patient did fall on this hip at home on 04/19/17. Neurology consulted, appreciate recommendations from Dr. Kirby: * IVIG initiated in ED, then given daily for 5 days; administration via Infuse-a -Port on left chest. * Imuran 50 mg daily PO * Sumatriptan 6 mg subcutaneous PRN per patient request given she has headaches at IVIG administration * Mestinon 120 mg every 8 hours * Prednisone 20mg daily Respiratory support not needed during this admission. Leukocytosis noted on admission since resolved, likely related to chronic steroid use, will monitor. Clinical exam of hip unremarkable. X-ray performed of the hip in the ED is unremarkable. * Received Thornton 10/325mg q4hr PRN. On morning of discharge, patient felt significantly better and was ready to go home. Pt Condition on Discharge: Stable Discharge Disposition: Discharge Home Discharge Instructions DIET: Follow Instructions for: As Tolerated, No Restrictions Activities you can perform: Regular-No Restrictions Follow up Referrals: Neurology - 1 Week with Stella Kirby MD PCP Follow-up - 1 Week New Medications: Azathioprine (Azathioprine) 50 Mg Tab 50 MG PO DAILY@18 #14 TAB Hydrocodone-Acetaminophen (Hydrocodone-Acetaminophen) 10-325 mg Tab 1 TAB PO Q4H PRN PAIN SCALE 6 TO 10 #20 TAB Prednisone (Prednisone) 20 Mg Tab 20 MG PO DAILY #14 TAB Continued Medications: Alprazolam (Xanax) 1 Mg Tab 1 MG PO Q6H Anxiety Ref 0 TAB Amitriptyline (Amitriptyline) 25 Mg Tab 25 MG PO HS TAB Azathioprine (Imuran) 50 Mg Tab 50 MG PO DAILY Hazardous agent: use appropriate precautions for handling and disposal. Immunosuppression #30 Ref 0 TAB Citalopram (Citalopram) 40 Mg Tab 40 MG PO DAILY Control Depression #30 Ref 0 TAB Hydrocodone-Acetaminophen (Hydrocodone-Acetaminophen) 7.5-325 mg Tab 1 TAB PO Q6H PRN PAIN SCALE 5 TO 10 #30 TAB Prednisone (Prednisone) 20 Mg Tab 20 MG PO DAILY Ref 0 TAB Pyridostigmine (Mestinon) 60 Mg Tab 120 MG PO TIDAC Manage Myastenia Gravis #360 Ref 0 TAB Sumatriptan (Imitrex) 50 Mg Tab 50 MG PO DAILY If a satisfactory response has not been obtained at 2 hours, a second dose may be administered PRN HEADACHE Ref 0 TAB Venice Whitaker MD R1 Apr 25, 2017 12:28
== END 2017-04-25 11:43 | disposition home or self-care (01) | DRG 57 ==
LOC: NEPC 10:35 → NEDA 12:34 → N05A 16:34
PROVIDERS: ADMIT Family Medicine; ATTEND Family Medicine
DX: G70.01 Myasthenia gravis with (acute) exacerbation (principal); F11.20 Opioid dependence, uncomplicated; F32.9 Major depressive disorder, single episode, unspecified; D64.9 Anemia, unspecified; F41.9 Anxiety disorder, unspecified; F17.210 Nicotine dependence, cigarettes, uncomplicated; M25.551 Pain in right hip; M79.7 Fibromyalgia; W19.XXXA Unspecified fall, initial encounter; Z91.81 History of falling; E87.6 Hypokalemia; Z79.52 Long term (current) use of systemic steroids
CPT/HCPCS: 36600; 71010; 73502; 80048; 81001; 82805; 82948; 83735; 84100; 84703; 85025; 85027; 93005; 94762; 96360; J1459; J1642; J1815; J2270; J2405; J3030; J7030; J7040; J7060; J7500; J7512

== ENCOUNTER 2017-06-05 08:14 | Inpatient (IN) | payer MEDICARE, MEDICAID ==
[2017-06-05] VITALS (8 sets, daily range): BP systolic 117–137; BP diastolic 70–96; PULSE 63–94; RESP 14–18; TEMP 97.6–98.4; O2SAT 97–100
[~2017-06-05] VITALS: Ht 165.1 cm; Wt 52.3 kg
[~2017-06-05 08:14] MED LIST changes: -ALPR.25 PO; -COMMODE 3-IN-11 MIS; +HYDR-3583 PO; -WALKER WHEELS/F1 MIS; +XANA1TAB2 PO
[2017-06-05] MEDS ORDERED: SODIUM CHLORIDE 0.9% FLUSH 10 ML FLUSH IVF PRN (09:30)
[2017-06-05] MEDS ORDERED: ONDANSETRON HCL 4 MG/2 ML VIAL IM ONE (09:30)
[2017-06-05] MEDS ORDERED: MORPHINE SULFATE 4 MG/ML INJ IV PUSH ONE (09:30)
[2017-06-05] MEDS ORDERED: IMMUNE GLOBULIN IV SCH (09:30)
[2017-06-05] MEDS ORDERED: LORazepam 2 MG/ML VIAL IVP ONE (09:30)
--- NOTE | 2017-06-05 10:08 | PD ---
HPI . Right hip pain Chief Complaint: Hip Injury Time Seen by Provider: 09:01 Travel History International Travel<30 days: No Contact w/Intl Traveler<30days: No Traveled to known affect area: No History of Present Illness HPI This is a patient with myasthenia gravis who presents stating that she is having a myasthenia gravis flare. The weakness secondary to the MG flare has caused her to fall onto her right hip. She presents complaining with right hip pain. She states that she is unable to ambulate on her right hip secondary to the pain. She states that her MG flare started about 2 days ago. She states that she has had this numerous times in the past and that she is normally treated here with IVIG. She has been intubated before but states that she is not having any respiratory difficulty at this time. PFSH Past Medical History Hx Anticoagulant Therapy: No Anemia: Yes Arthritis: No Autoimmune Disease: Yes (MYASTHENA GRAVIS) Blood Disorders: No Anxiety: Yes Depression: Yes Heart Rhythm Problems: No Cancer: No Cardiovascular Problems: No High Cholesterol: No Chemotherapy: No Chest Pain: No Congestive Heart Failure: No Cerebrovascular Accident: No Cystic Fibrosis: No Diabetes: No Diminished Hearing: No Endocrine: No Gastrointestinal Disorders: Yes Genitourinary: No Headaches: Yes Hepatitis: No Hiatal Hernia: No Hypertension: No Immune Disorder: Yes (MYASTHENIA GRAVIS) Implanted Vascular Access Dvce: Yes (left chest) Musculoskeletal: Yes Neurologic: Yes (MYASTHENIA GRAVIS - Jul, 2013) Psychiatric: Yes (DEPRESSION, ANXIETY) Reproductive: No Respiratory: No Immunizations Current: No Migraines: Yes Seizures: No Thyroid Disease: No ?: Not LMP: tubes taken out : 2 Para: 2 Dilation and Curettage (D&C): Yes Tubal Ligation: Yes Past Surgical History Abdominal Surgery: No Body Medical Devices: LEFT IMPLANTED PORT Cardiac Surgery: No Ear Surgery: No Endocrine Surgery: Yes ( thymus) Eye Surgery: No Genitourinary Surgery: No Gynecologic Surgery: Yes (tubal ligation 2014) Hysterectomy: Yes Neurologic Surgery: No Oral Surgery: Yes (EXTRACTIONS) Thoracic Surgery: No Tonsillectomy: Yes Other Surgery: Yes (tubal ligation Dec 2014/ POWER PORT TO LEFT CHEST) Social History Alcohol Use: No Tobacco Use: Yes (< 1/2 PPD) Substance Use: No Allergies-Medications (Allergen,Severity, Reaction): Coded Allergies: penicillin G (Unverified Allergy, Severe, Anaphylaxis, 05/26/17) promethazine (Unverified Adverse Reaction, Severe, NAUSEOUS, 05/26/17) Reported Meds & Prescriptions Reported Meds & Active Scripts Active Prednisone 20 Mg Tab 20 Mg PO DAILY Hydrocodone-Acetaminophen 10-325 mg Tab 1 Tab PO Q4H PRN Azathioprine 50 Mg Tab 50 Mg PO DAILY@18 Hydrocodone-Acetaminophen 7.5-325 mg Tab 1 Tab PO Q6H PRN Reported Xanax (Alprazolam) 1 Mg Tab 1 Mg PO Q6H Imuran (Azathioprine) 50 Mg Tab 50 Mg PO DAILY Hazardous agent: use appropriate precautions for handling and disposal. Prednisone 20 Mg Tab 20 Mg PO DAILY Mestinon (Pyridostigmine Flushing) 60 Mg Tab 120 Mg PO TIDAC Imitrex (Sumatriptan Succinate) 50 Mg Tab 50 Mg PO DAILY PRN If a satisfactory response has not been obtained at 2 hours, a second dose may be administered Citalopram (Citalopram Hydrobromide) 40 Mg Tab 40 Mg PO DAILY Amitriptyline (Amitriptyline HCl) 25 Mg Tab 25 Mg PO HS Review of Systems Except as stated in HPI: all other systems reviewed are Neg Respiratory: No: Shortness of Breath Musculoskeletal: Positive: Arthralgias Neurologic: Positive: Weakness Physical Exam Narrative GENERAL: Awake and alert. She seems anxious. SKIN: Warm and dry. HEAD: Atraumatic. Normocephalic. EYES: Pupils equal and round. Extraocular movements are intact. ENT: No nasal bleeding or discharge. Mucous membranes pink and moist. NECK: Trachea midline. Neck is supple. CARDIOVASCULAR: Regular rate and rhythm. RESPIRATORY: No accessory muscle use. GASTROINTESTINAL: Abdomen soft, non-tender, nondistended. MUSCULOSKELETAL: No obvious deformities. Tenderness to palpation of the right hip. Pain with log rolling of the right hip. No shortening or malrotation. Distally neurovascularly intact. NEUROLOGICAL: Awake and alert. No obvious cranial nerve deficits. Motor grossly within normal limits. Normal speech. PSYCHIATRIC: Appropriate mood and affect; insight and judgment normal. Data Data Last Documented VS Vital Signs Date Time Temp Pulse Resp B/P (MAP) Pulse Ox O2 Delivery O2 Flow Rate FiO2 06/05/17 10:55 17 06/05/17 08:56 79 98 Room Air Orders Orders Complete Blood Count With Diff (06/05/17 09:20) Comprehensive Metabolic Panel (06/05/17 09:20) Urinalysis - C+S If Indicated (06/05/17 09:20) Chest, Single Ap (06/05/17 09:20) Hip, Uni(Ap&Lat) Wo Ap Pelvis (06/05/17 09:20) Iv Access Insert/Monitor (06/05/17 09:20) Lorazepam Inj (Ativan Inj) (06/05/17 09:30) Morphine Inj (Morphine Inj) (06/05/17 09:30) Sodium Chloride 0.9% Flush (Ns Flush) (06/05/17 09:30) Ondansetron Inj (Zofran Inj) (06/05/17 09:30) Sodium Chlor 0.9% 1000 Ml Inj (Ns 1000 M (06/05/17 10:45) Acetaminophen (Tylenol) (06/05/17 10:45) Diphenhydramine (Benadryl) (06/05/17 10:45) Immune Globulin Inj (Privigen Inj) (06/05/17 12:00) Admit Order (Ed Use Only) (06/05/17 11:55) Consult Neurology (06/05/17 ) Labs Laboratory Tests Test 06/05/17 10:00 White Blood Count 10.4 TH/MM3 Red Blood Count 4.53 MIL/MM3 Hemoglobin 12.0 GM/DL Hematocrit 35.4 % Mean Corpuscular Volume 78.2 FL Mean Corpuscular Hemoglobin 26.5 PG Mean Corpuscular Hemoglobin Concent 33.9 % Red Cell Distribution Width 18.7 % Platelet Count 396 TH/MM3 Mean Platelet Volume 8.8 FL Neutrophils (%) (Auto) 81.8 % Lymphocytes (%) (Auto) 12.3 % Monocytes (%) (Auto) 4.3 % Eosinophils (%) (Auto) 0.6 % Basophils (%) (Auto) 1.0 % Neutrophils # (Auto) 8.5 TH/MM3 Lymphocytes # (Auto) 1.3 TH/MM3 Monocytes # (Auto) 0.5 TH/MM3 Eosinophils # (Auto) 0.1 TH/MM3 Basophils # (Auto) 0.1 TH/MM3 CBC Comment DIFF FINAL Differential Comment Blood Urea Nitrogen 6 MG/DL Creatinine 0.45 MG/DL Random Glucose 74 MG/DL Total Protein 7.0 GM/DL Albumin 3.6 GM/DL Calcium Level 9.0 MG/DL Alkaline Phosphatase 72 U/L Aspartate Amino Transf (AST/SGOT) 14 U/L Alanine Aminotransferase (ALT/SGPT) 15 U/L Total Bilirubin 0.3 MG/DL Sodium Level 140 MEQ/L Potassium Level 3.6 MEQ/L Chloride Level 112 MEQ/L Carbon Dioxide Level 24.9 MEQ/L Anion Gap 3 MEQ/L Estimat Glomerular Filtration Rate 154 ML/MIN [facility] Medical Decision Making Medical Screen Exam Complete: Yes Emergency Medical Condition: Yes Medical Record Reviewed: Yes (medical history includes myasthenia gravis, anxiety, depression, previous right hip pain, and narcotic use and tobacco abuse. Her outpatient neurologist is Dr. Banuelos and her IP neurologist has been Dr. Kirby.) Differential Diagnosis Differential diagnosis of extremity trauma includes but is not limited to fracture, sprain or strain, dislocation, contusion Narrative Course Patient presents complaining with an MG flare with a resultant fall and right hip injury. I have ordered IVIG. Hip x-ray is pending. I have reviewed her old records as well as up-to-date. Last Impressions Hip X-Ray 06/05/17919 Signed Impressions: Service Date/Time: Monday, June 05, 2017 09:49 - CONCLUSION: 1. Mild primary degenerative changes. No acute fracture or joint dislocation. Delroy James MD Chest X-Ray 06/05/17919 Signed Impressions: Service Date/Time: Monday, June 05, 2017 09:47 - CONCLUSION: No acute disease. No significant change has occurred. Delroy James MD The x-rays were independently viewed by me. CBC & BMP Diagram 06/05/17 10:00 Total Protein 7.0, Albumin 3.6, Calcium Level 9.0, Alkaline Phosphatase 72, Aspartate Amino Transf (AST/SGOT) 14 L, Alanine Aminotransferase (ALT/SGPT) 15, Total Bilirubin 0.3 This patient is repeatedly asking for pain medication. Physician Communication Physician Communication Dr. Solomon. He requests neuro consult. This has been initiated. Diagnosis Primary Impression: Myasthenia gravis with exacerbation Additional Impression: Contusion of right hip Qualified Codes: S70.01XA - Contusion of right hip, initial encounter Admitting Information Admitting Physician Requests: Admit Condition: Stable Emma Bradford MD Jun 05, 2017 10:08
--- NOTE | 2017-06-05 10:14 | RADRPT ---
EXAM DATE/TIME: 06/05/2017 09:47 [facility] COMPARISON: CHEST SINGLE AP, April 20, 2017, 12:03. INDICATIONS : Evaluate lung status. Patient fell on right side today. MEDICAL HISTORY : Myasthenia gravis. SURGICAL HISTORY : Tubal ligation. Infusaport. ENCOUNTER: Initial ACUITY: 1 day PAIN SCORE: 0/10 LOCATION: Bilateral chest FINDINGS: A single view of the chest demonstrates the lungs to be symmetrically aerated without evidence of mas s, infiltrate or effusion. The cardiomediastinal contours are unremarkable. Osseous structures are intact. CONCLUSION: No acute disease. No significant change has occurred. Delroy James MD on June 05, 2017 at 10:11 Board Certified Radiologist. This report was verified electronically.
--- NOTE | 2017-06-05 10:15 | RADRPT ---
EXAM DATE/TIME: 06/05/2017 09:49 [facility] COMPARISON: No previous studies available for comparison. INDICATIONS : Right hip pain after fall. MEDICAL HISTORY : Myasthenia gravis. SURGICAL HISTORY : Tubal ligation. Infusaport. ENCOUNTER: Initial ACUITY: 1 day PAIN SCORE: 10/10 LOCATION: Right hip. FINDINGS: A two view examination of the right hip was performed. The primary and secondary trabecular pattern of the femoral neck is intact. There is mild primary degenerative changes of the hip joint.. The ada tabulum is grossly intact. CONCLUSION: 1. Mild primary degenerative changes. No acute fracture or joint dislocation. Delroy James MD on June 05, 2017 at 10:13 Board Certified Radiologist. This report was verified electronically.
[2017-06-05 10:24] LABS: AUTOMATED NEUTROPHIL # 8.5 TH/MM3 (1.8-7.7); BASOPHIL # 0.1 TH/MM3 (0-0.2); EOSINOPHIL # 0.1 TH/MM3 (0-0.4); EOSINOPHIL % 0.6 % (0.0-4.0); HEMATOCRIT 35.4 % (35.0-46.0); HEMO FLAGS DIFF FINAL; LYMPH % 12.3 % (9.0-44.0); LYMPHOCYTE # 1.3 TH/MM3 (1.0-4.8); MEAN CELL VOLUME 78.2 FL (80.0-100.0); MEAN CORPUSCULAR HEMOGLOBIN 26.5 PG (27.0-34.0); MEAN CORPUSCULAR HGB CONC 33.9 % (32.0-36.0); MONO % 4.3 % (0.0-8.0); NEUT % 81.8 % (16.0-70.0); PLATELET COUNT 396 TH/MM3 (150-450); RED BLOOD COUNT 4.53 MIL/MM3 (4.00-5.30); RED CELL DISTRIBUTION WIDTH 18.7 % (11.6-17.2); WHITE BLOOD COUNT 10.4 TH/MM3 (4.0-11.0)
[2017-06-05 10:36] LABS: ALT (GPT) 15 U/L (10-53); ANION GAP 3 MEQ/L (5-15); AST (GOT) 14 U/L (15-37); BICARBONATE 24.9 MEQ/L (21.0-32.0); BLOOD UREA NITROGEN 6 MG/DL (7-18); CHLORIDE 112 MEQ/L (98-107); GLOMERULAR FILTRATION RATE 154 ML/MIN (>89); POTASSIUM 3.6 MEQ/L (3.5-5.1); SODIUM (NA) 140 MEQ/L (136-145)
[2017-06-05 10:39] LABS: ALKALINE PHOSPHATASE 72 U/L (45-117); TOTAL BILIRUBIN ADULT 0.3 MG/DL (0.2-1.0)
[2017-06-05] MEDS ORDERED: ACETAMINOPHEN 325 MG TAB PO ONE (10:45)
[2017-06-05] MEDS ORDERED: diphenhydrAMINE HCL 25 MG CAP PO ONE (10:45)
[2017-06-05] MEDS ORDERED: SODIUM CHLOR 0.9% 1000 ML INJ 1,000 ML IV ONE (10:45)
[2017-06-05] MEDS ORDERED: KETOROLAC TROMETHAMINE 30 MG/ML (IVP) VIAL IV PUSH ONE (13:00)
[2017-06-05] MEDS ORDERED: SODIUM CHLORIDE 0.9% FLUSH 10 ML FLUSH IV FLUSH PRN (14:00)
[2017-06-05] MEDS ORDERED: ACETAMINOPHEN/HYDROcodone 325 MG/7.5 MG TAB PO PRN (14:00)
[2017-06-05] MEDS: IMMUNE GLOBULIN INJ 20 GM in SYRINGE/BAG 1 EA IV SCH (14:09)
[2017-06-05] MEDS: DEXT 5%-NACL 0.9% 1000 ML INJ 1,000 ML IV SCH (14:09)
[2017-06-05 14:21] LABS: BLOOD, URINE SMALL (NEG); GLUCOSE,URINE NEG (NEG); KETONE, URINE 150 mg/dL (NEG); MUCUS URINE FEW /lpf (OCC); NITRITE,URINE NEG (NEG); SQUAMOUS EPITHELIAL CELL URINE 7 /hpf (0-5); URINE COLOR YELLOW (YELLW/STRAW)
[2017-06-05 14:25] LABS: COMMENT (UR) CATH-CULT NOT IND; CULTURE IF INDICATED CATH CULTURE NOT IND
[2017-06-05] MEDS: ALPRAZolam 1 MG TAB PO SCH ×2 (15:27→19:44)
[2017-06-05] MEDS ORDERED: MORPHINE SULFATE 4 MG/ML INJ IV PUSH PRN ×2 (17:30)
[2017-06-05] MEDS ORDERED: DEXT 5%-NACL 0.9% 1000 ML INJ 1,000 ML IV SCH (17:45)
--- NOTE | 2017-06-05 18:07 | HHI.HP ---
[facility]Staff Admission Diagnosis MG flare Diagnoses: Chief Complaint: And feeling very weak, exacerbating MG I can take another baby delivery but not this right hip pain Travel History International Travel<30 Days: No Contact w/Intl Traveler <30 Da: No Traveled to Known Affected Are: No History of Present Illness 42 years old female with history of myasthenia gravis on chronic steroid and azathioperine presented with worsening muscle weakness in her face jaw arms and legs as well as severe right hip pain more in the groin suspicious for femoral head necrosis considering patient is on chronic steroid. Patient also concerned about her headache for which she uses Imitrex twice a month, she denied any abdominal pain diarrhea constipation, dysuria urgency or frequency Review of Systems All systems reviewed and was positive for what is mentioned in history of present illness otherwise negative Past Family Social History Past Medical History MYASTHENIA GRAVIS - Jul, 2013) (DEPRESSION, ANXIETY) Dilation and Curettage (D&C) Tubal Ligation: Yes LEFT IMPLANTED PORT Myasthenia gravis Anemia Anxiety Migraine Past Surgical History As above Allergies: Coded Allergies: penicillin G (Unverified Allergy, Severe, Anaphylaxis, 05/26/17) promethazine (Unverified Adverse Reaction, Severe, NAUSEOUS, 05/26/17) Family History Review with the patient,not aware of significant medical history runs in his family Social History Smoke half pack per day no drugs or alcohol abuse Physical Exam Vital Signs Vital Signs Date Time Temp Pulse Resp B/P (MAP) Pulse Ox O2 Delivery O2 Flow Rate FiO2 06/05/17 17:57 75 06/05/17 17:10 98.0 92 18 124/76 (92) 100 06/05/17 17:00 98.0 92 18 124/76 (92) 100 06/05/17 16:58 06/05/17 16:27 16 06/05/17 15:37 98.1 75 17 137/96 (110) 99 Room Air 06/05/17 15:00 94 17 127/77 (94) 100 Room Air 06/05/17 14:40 98.4 93 16 121/70 (87) 97 Room Air 06/05/17 14:09 75 16 117/70 06/05/17 14:00 97.6 78 14 117/70 (86) 98 Room Air 06/05/17 10:55 17 06/05/17 08:56 79 18 98 Room Air Physical Exam GENERAL: This is a frail 42 years old female, in no apparent distress. But with severe hip SKIN: No rashes, warm and dry HEAD: Atraumatic. Normocephalic. EYES: Pupils equal round and reactive. Extraocular motions intact. No scleral icterus. ENT: Nose without bleeding, or drainage, Airway patent. NECK: Trachea midline. Supple CARDIOVASCULAR: Regular rate and rhythm without murmurs, gallops, or rubs. RESPIRATORY: Fair air entry bilaterally. No wheezes, rales, or rhonchi. GASTROINTESTINAL: Abdomen soft, non-tender, nondistended. Positive bowel sounds MUSCULOSKELETAL: Extremities without clubbing, cyanosis, or edema. Pedal pulses appreciated NEUROLOGICAL: Awake and alert oriented 3. Cranial nerves positive for facial muscle weakness, double vision on the right eye. Motor strength 3 out of 5 in all limbs except right lower extremity due to the hip pain not able to move it at all. sensory grossly within normal limits. Slow speech difficulty making words Laboratory Laboratory Tests Test 06/05/17 10:00 06/05/17 13:33 White Blood Count 10.4 Red Blood Count 4.53 Hemoglobin 12.0 Hematocrit 35.4 Mean Corpuscular Volume 78.2 Mean Corpuscular Hemoglobin 26.5 Mean Corpuscular Hemoglobin Concent 33.9 Red Cell Distribution Width 18.7 Platelet Count 396 Mean Platelet Volume 8.8 Neutrophils (%) (Auto) 81.8 Lymphocytes (%) (Auto) 12.3 Monocytes (%) (Auto) 4.3 Eosinophils (%) (Auto) 0.6 Basophils (%) (Auto) 1.0 Neutrophils # (Auto) 8.5 Lymphocytes # (Auto) 1.3 Monocytes # (Auto) 0.5 Eosinophils # (Auto) 0.1 Basophils # (Auto) 0.1 CBC Comment DIFF FINAL Differential Comment Blood Urea Nitrogen 6 Creatinine 0.45 Random Glucose 74 Total Protein 7.0 Albumin 3.6 Calcium Level 9.0 Alkaline Phosphatase 72 Aspartate Amino Transf (AST/SGOT) 14 Alanine Aminotransferase (ALT/SGPT) 15 Total Bilirubin 0.3 Sodium Level 140 Potassium Level 3.6 Chloride Level 112 Carbon Dioxide Level 24.9 Anion Gap 3 Estimat Glomerular Filtration Rate 154 Urine Color YELLOW Urine Turbidity HAZY Urine pH 6.0 Urine Specific [place] 1.019 Urine Protein TRACE Urine Glucose (UA) NEG Urine Ketones 150 Urine Occult Blood SMALL Urine Nitrite NEG Urine Bilirubin NEG Urine Urobilinogen LESS THAN 2.0 Urine Leukocyte Esterase NEG Urine RBC 6 Urine Squamous Epithelial Cells 7 Urine Mucus FEW Microscopic Urinalysis Comment CATH-CULT NOT IND Result Diagram: 06/05/17 1000 06/05/17 1000 Imaging Last Impressions Hip X-Ray 06/05/17919 Signed Impressions: Service Date/Time: Monday, June 05, 2017 09:49 - CONCLUSION: 1. Mild primary degenerative changes. No acute fracture or joint dislocation. Delroy James MD Chest X-Ray 06/05/17919 Signed Impressions: Service Date/Time: Monday, June 05, 2017 09:47 - CONCLUSION: No acute disease. No significant change has occurred. Delroy James MD Capmarinoi VTE Risk Assessment Caprini VTE Risk Assessment: Mod/High Risk (score >= 2) Caprini Risk Assessment Model Point Value = 1 Point Value = 2 Point Value = 3 Point Value = 5 Age 41-60 Minor surgery BMI > 25 kg/m2 Swollen legs Varicose veins or History of unexplained or recurrent spontaneous Oral contraceptives or hormone replacement Sepsis (< 1 month) Serious lung disease, including pneumonia (< 1 month) Abnormal pulmonary function Acute myocardial infarction Congestive heart failure (< 1 month) History of inflammatory bowel disease Medical patient at bed rest Age 61-74 Arthroscopic surgery Major open surgery (> 45 min) Laparoscopic surgery (> 45 min) Malignancy Confined to bed (> 72 hours) Immobilizing plaster cast Central venous access Age >= 75 History of VTE Family history of VTE Factor V Leiden Prothrombin [id number] Lupus anticoagulant Anticardiolipin antibodies Elevated serum homocysteine Heparin-induced thrombocytopenia Other congenital or acquired thrombophilia Stroke (< 1 month) Elective arthroplasty Hip, pelvis, or leg fracture Acute spinal cord injury (< 1 month) Prophylaxis Regimen Total Risk Factor Score Risk Level Prophylaxis Regimen 0-1 Low Early ambulation 2 Moderate Order ONE of the following: *Sequential Compression Device (SCD) *Heparin 5000 units SQ BID 3-4 Higher Order ONE of the following medications: *Heparin 5000 units SQ TID *Enoxaparin/Lovenox 40 mg SQ daily (WT < 150 kg, CrCl > 30 mL/min) *Enoxaparin/Lovenox 30 mg SQ daily (WT < 150 kg, CrCl > 10-29 mL/min) *Enoxaparin/Lovenox 30 mg SQ BID (WT < 150 kg, CrCl > 30 mL/min) AND/OR *Sequential Compression Device (SCD) 5 or more Highest Order ONE of the following medications: *Heparin 5000 units SQ TID (Preferred with Epidurals) *Enoxaparin/Lovenox 40 mg SQ daily (WT < 150 kg, CrCl > 30 mL/min) *Enoxaparin/Lovenox 30 mg SQ daily (WT < 150 kg, CrCl > 10-29 mL/min) *Enoxaparin/Lovenox 30 mg SQ BID (WT < 150 kg, CrCl > 30 mL/min) AND *Sequential Compression Device (SCD) Assessment and Plan Assessment and Plan 42 years old female with history of myasthenia gravis came with Myasthenia gravis flareup Severe right Groin and hip pain rule out femur had necrosis History of anxiety History of migraine DVT prophylaxis Plan: Patient admitted for IVIG infusion Neurology consultation Keep nothing by mouth, swallow eval MRI of the right hip rule out a tumor necrosis Resume home med if past swallow eval Pain medication with morphine SCV and heparin for DVT prophylaxis Discussed Condition With Patient in ED physician Miguel Ángel Solomon MD Jun 05, 2017 18:07
[2017-06-05] MEDS: SUMAtriptan SUCCINATE 50 MG TAB PO PRN (19:44)
[2017-06-05] MEDS: SODIUM CHLORIDE 0.9% FLUSH 10 ML FLUSH IV FLUSH SCH (19:45)
[2017-06-05] MEDS: MORPHINE SULFATE 4 MG/ML INJ IV PRN (19:45)
[2017-06-05] MEDS ORDERED: SUMAtriptan INJ 6 MG/0.5 ML VIAL SQ PRN (20:15)
[2017-06-05] MEDS: HEPARIN SODIUM - SQ 10,000 UNITS/ML VIAL SQ SCH (21:09)
[2017-06-05] MEDS: AMITRIPTYLINE HCL 25 MG TAB PO SCH (21:09)
--- NOTE | 2017-06-05 23:13 | RADRPT ---
EXAM DATE/TIME: 06/05/2017 20:33 [place] COMPARISON: HIP RIGHT (AP&LAT 2/3VWS) WO AP PELVIS, June 05, 2017, 9:49. INDICATIONS : Inability to ambulate. Fall MEDICAL HISTORY : Myasthenia gravis. SURGICAL HISTORY : Tonsillectomy. Tubal ligation. Thymus removed. ENCOUNTER: Initial ACUITY: 1 day PAIN SCORE: 5/10 LOCATION: Right Hip TECHNIQUE: Multiplanar, multisequence MRI examination was performed without contrast. FINDINGS: BONE/CARTILAGE: There is severe edema throughout the femoral head, neck and acetabulum. There is some subchondral scl erosis of the femoral head with superior joint space narrowing and flattening of the femoral head LABRUM: Within normal limits. MUSCLES/TENDONS: All of the visualized muscles and tendons are intact. Some edema the external rotators of the hip. MISCELLANEOUS: Large joint effusion. CONCLUSION: Severe edema of the femoral head and acetabulum with large joint effusion. Subchondral sclerosis and flattening of the femoral head is somewhat unusual for a typical avascular necrosis but still the mos t likely diagnosis. No loose body or fracture is identified. Ashok Beach MD on June 05, 2017 at 23:09 Board Certified Radiologist. This report was verified electronically.
--- NOTE | 2017-06-05 23:17 | MB ---
cc: OSSI,RAID DATE OF CONSULTATION 06/05/17 REASON FOR CONSULTATION: Myasthenia gravis relapse. HISTORY OF PRESENT ILLNESS Ms. Rodríguez is a 42-year-old female with past medical history of myasthenia gravis who frequently presents to the hospital for IVIG treatment, the patient used to follow up with outside neurologist who did not want to continue managing her, Dr. Banuelos and thus she has been off her Mestinon 120 milligrams by 3 prednisone 5 milligrams daily and Imuran 50 milligrams for a few days. She reports that she was weak and she fell and she thinks she hurt her right hip area. The patient also has a history of migraine headache and uses Imitrex. The patient noticed that she has become very weak and reported to the emergency room. She had several admissions where she receives IVIG treatments for 5 days and she was recently intubated at [facility] for the myasthenia gravis relapse. REVIEW OF SYSTEMS 12-point review of systems is negative except for what is stated in HPI. PAST MEDICAL HISTORY Myasthenia gravis diagnosed in 2012, depression, anxiety, migraine. PAST SURGICAL HISTORY Tubal ligation, D&C, left implanted port. ALLERGIES PENICILLIN G, PROMETHAZINE. FAMILY HISTORY Noncontributory. SOCIAL HISTORY Denies drugs or alcohol abuse. Smokes half a pack of cigarettes daily. PHYSICAL EXAMINATION GENERAL: Awake, alert, pale, in mild distress, anxious. HEENT: Atraumatic, normocephalic. Intact hearing. Intact vision. NECK: Supple. Very weak, cannot hold her head up due to weakness of extensor muscles of the neck. CARDIOVASCULAR: Regular rate and rhythm. RESPIRATORY: Clear to auscultation. No wheezes. GASTROINTESTINAL: Soft, not tender, abdomen nontender. MUSCULOSKELETAL: No clubbing, no cyanosis. Weakness of four extremities. NEUROLOGIC: Awake, alert, oriented to time, person and place. Nasal tune to the voice. myasthenic snarl, bilateral lower motor neuron facial weakness, bilateral ptosis, diplopia, mild sixth nerve palsy. 4-/5 bilateral shoulder abduction, 4/5 bilateral hip flexion with give-way on the right hip because of pain. Reflexes 1+ bilateral symmetrical. Plantars are bilaterally downgoing. Sensation is intact bilaterally throughout. LABORATORY DATA White blood cells 10.4, hemoglobin 12, MCV 78.2, platelet 396, BUN 6, creatinine 0.45, calcium 9. LFTs normal. Electrolytes normal. DIAGNOSTIC IMPRESSION 1. Myasthenia gravis flare-up. 2. Chronic migraine headache. 3. Right hip pain status post fall. PLAN 1. Neuro checks q. four hourly. 2. Assess vital capacity and NIFs q. 12 hourly. 3. IVIG daily for five treatments. 4. Imuran 50 milligrams daily. 5. Prednisone 20 milligrams daily. 6. Sumatriptan 50 milligrams as needed, can be repeated in 2 hours. 7. pyridostigmine 120 milligrams three times daily. 8. Fall precautions. 9. DVT prophylaxis. 10. Speech therapy recommendations are appreciated. 11. PT/OT recommendations are appreciated. 12. Mestinon 120 milligrams three times daily. Thank you for the opportunity to participate in the care of your patient. MD GREG Leon/JONAH /10:36 PM /10:51 PM ALISTAIR
[2017-06-06] VITALS (9 sets, daily range): BP systolic 103–121; BP diastolic 59–75; PULSE 57–82; RESP 15–18; TEMP 96.3–97.8; O2SAT 97–99
[2017-06-06] MEDS: ACETAMINOPHEN/HYDROcodone 325 MG/10 MG TAB PO PRN ×6 (00:21→20:59)
[2017-06-06] MEDS: PYRIDOSTIGMINE BROMIDE 60 MG TAB PO SCH ×4 (00:25→20:59)
[2017-06-06] MEDS: ALPRAZolam 1 MG TAB PO SCH ×4 (03:03→20:59)
[2017-06-06] MEDS: MORPHINE SULFATE 4 MG/ML INJ IV PRN ×4 (03:03→21:31)
[2017-06-06] MEDS: HEPARIN SODIUM - SQ 10,000 UNITS/ML VIAL SQ SCH ×3 (05:17→21:04)
[2017-06-06] MEDS: azaTHIOprine 50 MG TAB PO SCH (08:46)
[2017-06-06] MEDS: predniSONE 20 MG TAB PO SCH (08:46)
[2017-06-06] MEDS: CITALOPRAM HYDROBROMIDE 40 MG TAB PO SCH (08:46)
[2017-06-06] MEDS: SODIUM CHLORIDE 0.9% FLUSH 10 ML FLUSH IV FLUSH SCH ×2 (08:47→20:56)
[2017-06-06] MEDS ORDERED: ACETAMINOPHEN 325 MG TAB PO ONE (12:15)
[2017-06-06] MEDS ORDERED: diphenhydrAMINE HCL 25 MG CAP PO ONE (12:15)
[2017-06-06] MEDS ORDERED: EPINEPHRINE HCL (1:1000) 1 MG/ML AMP Reaction Med OTHER PRN (12:30)
[2017-06-06] MEDS ORDERED: DIPHENHYDRAMINE HCL 50 MG/ML VIAL Reaction Med IV PUSH PRN (12:30)
[2017-06-06] MEDS: IMMUNE GLOBULIN INJ 20 GM in SYRINGE/BAG 1 EA IV SCH (13:48)
--- NOTE | 2017-06-06 16:05 | HHI.PR ---
Subjective Remarks Patient feeling frustrated however her myasthenia symptoms improved today, her speech is much better She asked me about the hip, explained to her the finding on the MRI which is consistent with femoral head necrosis, I explained to her and showed her on postradiation and of the anatomy and blood perfusion and explained to her about the possibility of the steroid side effect. However patient doesn't seem to be convinced she asked me to repeat multiple time, she wanted to know if she needs surgery I informed her that the decision will be up to the surgeon which we consulted. Patient always showed unsatisfaction Objective Vitals Vital Signs Date Time Temp Pulse Resp B/P (MAP) Pulse Ox O2 Delivery O2 Flow Rate FiO2 06/06/17 14:05 97.3 80 16 103/59 (74) 97 06/06/17 13:48 77 18 107/67 06/06/17 08:00 57 06/06/17 08:00 97.2 61 16 107/69 (82) 99 06/06/17 04:00 97.4 69 15 114/75 (88) 99 06/06/17 04:00 64 06/06/17 00:00 97.8 62 15 121/73 (89) 97 06/06/17 00:00 67 06/05/17 20:00 63 06/05/17 20:00 97.7 83 17 128/86 (100) 98 06/05/17 17:57 75 06/05/17 17:10 98.0 92 18 124/76 (92) 100 06/05/17 17:00 98.0 92 18 124/76 (92) 100 06/05/17 16:58 06/05/17 16:27 16 I/O 06/05/17 06/05/17 06/05/17 06/06/17 06/06/17 06/06/17 07:00 15:00 23:00 07:00 15:00 23:00 Intake Total 1000 ml 785 ml Output Total 500 ml 200 ml Balance 1000 ml -500 ml 585 ml Intake Oral 50 ml IV Total 1000 ml 735 ml Output Urine Total 500 ml 200 ml Result Diagram: 06/05/17 1000 06/05/17 1000 Objective Remarks GENERAL: This is a frail 42 years old female, in no apparent distress. But with severe hip SKIN: No rashes, warm and dry HEAD: Atraumatic. Normocephalic. EYES: Pupils equal round and reactive. Extraocular motions intact. No scleral icterus. ENT: Nose without bleeding, or drainage, Airway patent. NECK: Trachea midline. Supple CARDIOVASCULAR: Regular rate and rhythm without murmurs, gallops, or rubs. RESPIRATORY: Fair air entry bilaterally. No wheezes, rales, or rhonchi. GASTROINTESTINAL: Abdomen soft, non-tender, nondistended. Positive bowel sounds MUSCULOSKELETAL: Extremities without clubbing, cyanosis, or edema. Pedal pulses appreciated NEUROLOGICAL: Awake and alert oriented 3. 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
--- NOTE | 2017-06-06 17:33 | HHI.PR ---
Review/Management Diagnosis 1. Myasthenia gravis exacerbation 2. Chronic migraine headache. 3. Right hip pain status post fall. Plan 1. Neuro checks q. four hourly. 2. Assess vital capacity and NIFs q. 12 hourly. 3. IVIG daily for THREE treatments rather than five treatments, given the significant improvement of symptoms. 4. Imuran 50 milligrams daily. 5. Prednisone 20 milligrams daily. 6. Sumatriptan 50 milligrams as needed, can be repeated in 2 hours. 7. pyridostigmine 120 milligrams three times daily. 8. Fall precautions. 9. DVT prophylaxis. 10. Speech therapy recommendations are appreciated. 11. PT/OT recommendations are appreciated. Diagnosis/Plan: Subjective Subjective Comments Patient feels more comfortable, can lift her head, easy swallow, chew and eat food No difficulty breathing Received second IVIG No reported side effects Active Medications Current Medications Medications (Trade) Dose Ordered Sig/Gómez Route Start Time Stop Time Status Last Admin Immune Globulin 20 gm/Syringe / Bag 200 ml @ 0 mls/hr Q24H IV 06/05/17 12:00 06/10/17 12:01 06/06/17 13:48 (NS Flush) 2 ml BID IV FLUSH 06/05/17 21:00 06/06/17 08:47 (Xanax) 1 mg Q6H PO 06/05/17 14:00 06/06/17 12:40 (Elavil) 25 mg HS PO 06/05/17 21:00 06/05/17 21:09 (Imuran) 50 mg DAILY PO 06/06/17 09:00 06/06/17 08:46 (CeleXA) 40 mg DAILY PO 06/06/17 09:00 06/06/17 08:46 ([place] 7.5-325 Mg) 1 tab Q6H PRN PO 06/05/17 14:00 06/05/17 15:27 ([place] 10-325 Mg) 1 tab Q4H PRN PO 06/05/17 14:00 06/06/17 12:40 (Deltasone) 20 mg DAILY PO 06/06/17 09:00 06/06/17 08:46 (Imitrex) 50 mg DAILY PRN PO 06/05/17 14:00 06/05/17 19:44 Dextrose/Sodium Chloride 1,000 ml @ 45 mls/hr Q22H IV 06/05/17 17:45 06/05/17 14:09 (Morphine Inj) 1 mg Q6H PRN IV 06/05/17 17:45 06/06/17 15:55 (Imitrex Inj) 6 mg UNSCH PRN SQ 06/05/17 20:15 (Heparin Inj) 5,000 units Q8HR SQ 06/05/17 22:00 (Mestinon) 120 mg Q8HR PO 06/05/17 23:00 06/06/17 12:39 (Benadryl Inj) 50 mg UNSCH PRN IV PUSH 06/06/17 12:30 06/12/17 12:29 (Adrenalin (1:1000) Inj) 0.3 mg Q10M PRN OTHER 06/06/17 12:30 06/12/17 12:29 Allergies Allergies Coded Allergies penicillin G (Unverified Allergy, Severe, Anaphylaxis, 05/26/17) promethazine (Unverified Adverse Reaction, Severe, NAUSEOUS, 05/26/17) Review of Systems All other ROS: ROS reviewed as documented in chart Exam I&O / VS Vital Signs Date Time Temp Pulse Resp B/P (MAP) Pulse Ox O2 Delivery O2 Flow Rate FiO2 06/06/17 17:32 99 06/06/17 16:45 69 06/06/17 14:05 97.3 80 16 103/59 (74) 97 06/06/17 13:48 77 18 107/67 06/06/17 12:30 65 06/06/17 08:00 57 06/06/17 08:00 97.2 61 16 107/69 (82) 99 06/06/17 04:00 97.4 69 15 114/75 (88) 99 06/06/17 04:00 64 06/06/17 00:00 97.8 62 15 121/73 (89) 97 06/06/17 00:00 67 06/05/17 20:00 63 06/05/17 20:00 97.7 83 17 128/86 (100) 98 06/05/17 17:57 75 General: Alert and Oriented, No acute distress Eye: PERRL, EOMI, Normal conjuctiva, Vision unchanged Respiratory: Lungs CTA, Non-labored respirations Cardiology: Normal rate Musculoskeletal: ROM Neurologic: Alert, Oriented, Normal sensory, Normal motor, No focal defects, CN II-XII intact, Normal DTR's Psychiatric: Cooperative, Appropriate mood & affect, Normal judgement Exam Comments GENERAL: Awake, alert, pale, in mild distress, anxious. HEENT: Atraumatic, normocephalic. Intact hearing. Intact vision. NECK: Supple. Very weak, able to hold her head up CARDIOVASCULAR: Regular rate and rhythm. RESPIRATORY: Clear to auscultation. No wheezes. GASTROINTESTINAL: Soft, not tender, abdomen nontender. MUSCULOSKELETAL: No clubbing, no cyanosis. Weakness of four extremities. NEUROLOGIC: Awake, alert, oriented to time, person and place. Nasal tune to the voice. myasthenic snarl, bilateral lower motor neuron facial weakness, bilateral ptosis, diplopia, mild sixth nerve palsy. 4-/5 bilateral shoulder abduction, 4/5 bilateral hip flexion with give-way on the right hip because of pain. Reflexes 1+ bilateral symmetrical. Plantars are bilaterally downgoing. Sensation is intact bilaterally throughout. Objective Radiology Results Last 72 hours Impressions Hip X-Ray 06/05/17919 Signed Impressions: Service Date/Time: Monday, June 05, 2017 09:49 - CONCLUSION: 1. Mild primary degenerative changes. No acute fracture or joint dislocation. Delroy James MD Chest X-Ray 06/05/1720 Signed Impressions: Service Date/Time: Monday, June 05, 2017 09:47 - CONCLUSION: No acute disease. No significant change has occurred. Delroy James MD Hip MRI 06/05/17 0000 Signed Impressions: Service Date/Time: Monday, June 05, 2017 20:33 - CONCLUSION: Severe edema of the femoral head and acetabulum with large joint effusion. Subchondral sclerosis and flattening of the femoral head is somewhat unusual for a typical avascular necrosis but still the most likely diagnosis. No loose body or fracture is identified. Ashok Beach MD OssShahram casiano MD Jun 06, 2017 17:33
[2017-06-06] MEDS: AMITRIPTYLINE HCL 25 MG TAB PO SCH (20:59)
[2017-06-06] MEDS: DEXT 5%-NACL 0.9% 1000 ML INJ 1,000 ML IV SCH (21:03)
[2017-06-07] VITALS (11 sets, daily range): BP systolic 100–115; BP diastolic 60–70; PULSE 57–83; RESP 14–18; TEMP 96.4–98.6; O2SAT 96–100
--- NOTE | 2017-06-07 00:27 | PD.CONS ---
HPI Service Orthopedic Surgeons Consult Requested By Dr. Solomon Reason for Consult Avascular necrosis right femoral head Primary Care Physician Non-Staff Admission Diagnosis MG flare Diagnoses: Chief Complaint: MG flareup, right hip pain History of Present Illness This 42-year-old female who has been steroid-dependent for myasthenia gravis and has had several different hospitalizations for IVIG injection presented to the hospital recently with complaints of weakness and pain felt to be associated with a flareup. The patient has had right hip pain over the last 3 months. It has been progressive. It is primarily in the groin region. She is very limited in her activity. The patient had x-ray evaluation and a MRI scan completed which revealed changes consistent with avascular necrosis of the right femoral head. Orthopedic consultation was therefore requested. Review of Systems 12 point review of systems completed and consistent with those presented in the medical record. Past Family Social History Past Medical History MYASTHENIA GRAVIS - Jul, 2013) (DEPRESSION, ANXIETY) Dilation and Curettage (D&C) Tubal Ligation: Yes LEFT IMPLANTED PORT Myasthenia gravis Anemia Anxiety Migraine Past Surgical History As above Allergies: Coded Allergies: penicillin G (Unverified Allergy, Severe, Anaphylaxis, 05/26/17) promethazine (Unverified Adverse Reaction, Severe, NAUSEOUS, 05/26/17) Active Ordered Medications Current Medications Medications (Trade) Dose Ordered Sig/Gómez Route Start Time Stop Time Status Last Admin Immune Globulin 20 gm/Syringe / Bag 200 ml @ 0 mls/hr Q24H IV 06/05/17 12:00 06/10/17 12:01 06/06/17 13:48 (NS Flush) 2 ml BID IV FLUSH 06/05/17 21:00 06/06/17 08:47 (Xanax) 1 mg Q6H PO 06/05/17 14:00 06/06/17 20:59 (Elavil) 25 mg HS PO 06/05/17 21:00 06/06/17 20:59 (Imuran) 50 mg DAILY PO 06/06/17 09:00 06/06/17 08:46 (CeleXA) 40 mg DAILY PO 06/06/17 09:00 06/06/17 08:46 ([place] 7.5-325 Mg) 1 tab Q6H PRN PO 06/05/17 14:00 06/05/17 15:27 ([place] 10-325 Mg) 1 tab Q4H PRN PO 06/05/17 14:00 06/06/17 20:59 (Deltasone) 20 mg DAILY PO 06/06/17 09:00 06/06/17 08:46 (Imitrex) 50 mg DAILY PRN PO 06/05/17 14:00 06/05/17 19:44 Dextrose/Sodium Chloride 1,000 ml @ 45 mls/hr Q22H IV 06/05/17 17:45 06/06/17 21:03 (Morphine Inj) 1 mg Q6H PRN IV 06/05/17 17:45 06/06/17 21:31 (Imitrex Inj) 6 mg UNSCH PRN SQ 06/05/17 20:15 (Heparin Inj) 5,000 units Q8HR SQ 06/05/17 22:00 06/06/17 21:04 (Mestinon) 120 mg Q8HR PO 06/05/17 23:00 06/06/17 20:59 (Benadryl Inj) 50 mg UNSCH PRN IV PUSH 06/06/17 12:30 06/12/17 12:29 (Adrenalin (1:1000) Inj) 0.3 mg Q10M PRN OTHER 06/06/17 12:30 06/12/17 12:29 Reported Meds & Active Scripts Active Prednisone 20 Mg Tab 20 Mg PO DAILY Hydrocodone-Acetaminophen 10-325 mg Tab 1 Tab PO Q4H PRN Azathioprine 50 Mg Tab 50 Mg PO DAILY@18 Hydrocodone-Acetaminophen 7.5-325 mg Tab 1 Tab PO Q6H PRN Reported Xanax (Alprazolam) 1 Mg Tab 1 Mg PO Q6H Imuran (Azathioprine) 50 Mg Tab 50 Mg PO DAILY Hazardous agent: use appropriate precautions for handling and disposal. Prednisone 20 Mg Tab 20 Mg PO DAILY Mestinon (Pyridostigmine [place]) 60 Mg Tab 120 Mg PO TIDAC Imitrex (Sumatriptan Succinate) 50 Mg Tab 50 Mg PO DAILY PRN If a satisfactory response has not been obtained at 2 hours, a second dose may be administered Citalopram (Citalopram Hydrobromide) 40 Mg Tab 40 Mg PO DAILY Amitriptyline (Amitriptyline HCl) 25 Mg Tab 25 Mg PO HS Family History Review with the patient,not aware of significant medical history runs in his family Social History Smoke half pack per day no drugs or alcohol abuse Physical Exam Vital Signs Vital Signs Date Time Temp Pulse Resp B/P (MAP) Pulse Ox O2 Delivery O2 Flow Rate FiO2 06/06/17 20:00 96.3 82 18 103/68 (80) 98 06/06/17 17:32 99 06/06/17 16:45 69 06/06/17 16:00 97.6 77 16 107/69 (82) 99 06/06/17 14:05 97.3 80 16 103/59 (74) 97 06/06/17 13:48 77 18 107/67 06/06/17 12:30 65 06/06/17 08:00 57 06/06/17 08:00 97.2 61 16 107/69 (82) 99 06/06/17 04:00 97.4 69 15 114/75 (88) 99 06/06/17 04:00 64 Physical Exam The patient's leg lengths are equal. The right hip has no overlying skin change or specific palpable tenderness. She does have pain with active and passive range of motion which is mildly limited and more painful at extremes. She has no radicular pain or distal paresthesias. She has a negative straight leg raise and mild motor weakness bilaterally. Result Diagram: 06/05/17 1000 06/05/17 1000 Imaging Last 72 hours Impressions Hip X-Ray 06/05/17919 Signed Impressions: Service Date/Time: Monday, June 05, 2017 09:49 - CONCLUSION: 1. Mild primary degenerative changes. No acute fracture or joint dislocation. Delroy James MD Chest X-Ray 06/05/17919 Signed Impressions: Service Date/Time: Monday, June 05, 2017 09:47 - CONCLUSION: No acute disease. No significant change has occurred. Delroy James MD Hip MRI 06/05/17 0000 Signed Impressions: Service Date/Time: Monday, June 05, 2017 20:33 - CONCLUSION: Severe edema of the femoral head and acetabulum with large joint effusion. Subchondral sclerosis and flattening of the femoral head is somewhat unusual for a typical avascular necrosis but still the most likely diagnosis. No loose body or fracture is identified. 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 The x-ray and MRI findings were reviewed. The patient's findings of avascular necrosis most likely is related to her steroid treatment. The patient does have changes noted on her x-ray consistent with subchondral collapse indicating a more advanced stage of her AVN. It was explained to her that her options are limited and total hip arthroplasty most likely will be required in the future. At the present time however, she is quite young and should consider nonoperative management. The patient was upset with this explanation. She states she "wanted to have something done during this hospitalization. It was explained this is an elective procedure and the possibility of requiring authorization prior to invasive treatment was discussed. Case management was consulted to assist with same. In addition it was recommended she have a second opinion, as I personally would be reluctant to proceed with total hip arthroplasty during this hospitalization. I will ask one of my associates to provide this. The nature of the problem, the various treatment options as well as the risks and benefits of same were discussed and she acknowledges full understanding. (2) Myasthenia gravis with exacerbation ICD Codes: G70.01 - Myasthenia gravis with exacerbation Status: Acute (3) Fibromyalgia ICD Codes: M79.7 - Fibromyalgia Status: Acute (4) Chronic pain disorder ICD Codes: G89.4 - Chronic pain syndrome Status: Acute Luis Armando Baron MD Jun 07, 2017 00:27
[2017-06-07] MEDS: ALPRAZolam 1 MG TAB PO SCH ×4 (01:11→22:41)
[2017-06-07] MEDS: ACETAMINOPHEN/HYDROcodone 325 MG/10 MG TAB PO PRN ×6 (01:12→23:02)
[2017-06-07] MEDS: MORPHINE SULFATE 4 MG/ML INJ IV PRN ×3 (03:18→22:41)
[2017-06-07] MEDS: PYRIDOSTIGMINE BROMIDE 60 MG TAB PO SCH ×3 (05:52→22:35)
[2017-06-07] MEDS: HEPARIN SODIUM - SQ 10,000 UNITS/ML VIAL SQ SCH ×3 (05:53→22:37)
[2017-06-07] MEDS: CITALOPRAM HYDROBROMIDE 40 MG TAB PO SCH (08:09)
[2017-06-07] MEDS: predniSONE 20 MG TAB PO SCH (08:09)
[2017-06-07] MEDS: azaTHIOprine 50 MG TAB PO SCH (08:09)
--- NOTE | 2017-06-07 11:41 | HHI.PR ---
Subjective Remarks Patient having better mood today, she discussed with the orthopedic surgeon, 2 of them and she now agree with physical therapy until she get scheduled for hip arthroplasty. No chest pain short of breath today, will get PT to evaluate, day #3 of 5 doses of IVIG Objective Vitals Vital Signs Date Time Temp Pulse Resp B/P (MAP) Pulse Ox O2 Delivery O2 Flow Rate FiO2 06/07/17 08:00 97.1 59 14 100/61 (74) 100 06/07/17 04:19 60 06/07/17 04:00 96.4 65 18 102/60 (74) 98 06/07/17 00:00 67 06/07/17 00:00 97.3 73 18 109/69 (82) 96 06/06/17 20:00 66 06/06/17 20:00 96.3 82 18 103/68 (80) 98 06/06/17 17:32 99 06/06/17 16:45 69 06/06/17 16:00 97.6 77 16 107/69 (82) 99 06/06/17 14:05 97.3 80 16 103/59 (74) 97 06/06/17 13:48 77 18 107/67 06/06/17 12:30 65 I/O 06/06/17 06/06/17 06/06/17 06/07/17 06/07/17 06/07/17 07:00 15:00 23:00 07:00 15:00 23:00 Intake Total 785 ml 1200 ml 737 ml Output Total 200 ml 1000 ml 20 ml Balance 585 ml 1200 ml -263 ml -20 ml Intake Oral 50 ml 1200 ml IV Total 735 ml 737 ml Output Urine Total 200 ml 1000 ml 20 ml # Voids 13 Result Diagram: 06/05/17 1000 06/05/17 1000 Objective Remarks GENERAL: This is a frail 42 years old female, in no apparent distress. But with severe hip SKIN: No rashes, warm and dry HEAD: Atraumatic. Normocephalic. EYES: Pupils equal round and reactive. Extraocular motions intact. No scleral icterus. ENT: Nose without bleeding, or drainage, Airway patent. NECK: Trachea midline. Supple CARDIOVASCULAR: Regular rate and rhythm without murmurs, gallops, or rubs. RESPIRATORY: Fair air entry bilaterally. No wheezes, rales, or rhonchi. GASTROINTESTINAL: Abdomen soft, non-tender, nondistended. Positive bowel sounds MUSCULOSKELETAL: Extremities without clubbing, cyanosis, or edema. Pedal pulses appreciated NEUROLOGICAL: Awake and alert oriented 3. Facial muscle weakness speech is much better today as well as motor strength A/P Assessment and Plan 42 years old female with history of myasthenia gravis came with Myasthenia gravis flareup Steroid-induced right head femoral hip vascular necrosis (showed on MRI)>> Severe right Groin and hip pain History of anxiety History of migraine DVT prophylaxis Plan: Patient improved status post IVIG infusion day 3 out of 5 Appreciate Neurology consultation Resume regular diet right hip MRI consistent with right vascular necrosis of the femoral head Appreciate ortho consultation, they discussed with the patient, plan for conservative management and later scheduling for hip replacement, I personally also discussed that with the patient in length Resume home med Pain medication with morphine SCV and heparin for DVT prophylaxis Miguel Ángel Solomon MD Jun 07, 2017 11:41
[2017-06-07] MEDS ORDERED: ACETAMINOPHEN 325 MG TAB Pre-med PO SCH (12:00)
[2017-06-07] MEDS ORDERED: D5W as prime bag (IVIG as secondary) IV SCH (12:00)
[2017-06-07] MEDS ORDERED: DIPHENHYDRAMINE HCL 25 MG CAP Pre-med PO SCH (12:00)
[2017-06-07] MEDS: SUMAtriptan SUCCINATE 50 MG TAB PO PRN ×2 (12:31→19:02)
[2017-06-07] MEDS: IMMUNE GLOBULIN INJ 20 GM in SYRINGE/BAG 1 EA IV SCH (12:57)
[2017-06-07] MEDS: DEXT 5%-NACL 0.9% 1000 ML INJ 1,000 ML IV SCH (14:13)
[2017-06-07] MEDS: SODIUM CHLORIDE 0.9% FLUSH 10 ML FLUSH IV FLUSH SCH ×2 (15:07→22:36)
--- NOTE | 2017-06-07 18:06 | HHI.PR ---
Review/Management Diagnosis 1. Myasthenia gravis exacerbation 2. Chronic migraine headache. 3. Right hip avascular necrosis Plan 1. Neuro checks q. four hourly. 2. Assess vital capacity and NIFs q.12 hourly. 3. IVIG daily for THREE treatments rather than five treatments, given the significant improvement of symptoms. 4. Imuran 50 milligrams daily. 5. Prednisone 20 milligrams daily. 6. Sumatriptan 50 milligrams as needed, can be repeated in 2 hours. 7. pyridostigmine 120 milligrams three times daily. 8. Fall precautions. 9. DVT prophylaxis. 10. Speech therapy recommendations are appreciated. 11. PT/OT recommendations are appreciated 12. Follow up with outpatient neurology 13. Please call for questions Diagnosis/Plan: Subjective Subjective Comments Patient has no worsening symptoms States that she is upset regarding her right hip pain, diagnosed as avascular necrosis, recommendation by orthopedics is hip replacement Denies difficulty swallowing, chewing Received third dose of IVIG, uneventfully Active Medications Current Medications Medications (Trade) Dose Ordered Sig/Gómez Route Start Time Stop Time Status Last Admin Immune Globulin 20 gm/Syringe / Bag 200 ml @ 0 mls/hr Q24H IV 06/05/17 12:00 06/10/17 12:01 06/07/17 12:57 (NS Flush) 2 ml BID IV FLUSH 06/05/17 21:00 06/07/17 15:07 (Xanax) 1 mg Q6H PO 06/05/17 14:00 06/07/17 13:26 (Elavil) 25 mg HS PO 06/05/17 21:00 06/06/17 20:59 (Imuran) 50 mg DAILY PO 06/06/17 09:00 06/07/17 08:09 (CeleXA) 40 mg DAILY PO 06/06/17 09:00 06/07/17 08:09 ([place] 7.5-325 Mg) 1 tab Q6H PRN PO 06/05/17 14:00 06/05/17 15:27 ([place] 10-325 Mg) 1 tab Q4H PRN PO 06/05/17 14:00 06/07/17 15:05 (Deltasone) 20 mg DAILY PO 06/06/17 09:00 06/07/17 08:09 (Imitrex) 50 mg DAILY PRN PO 06/05/17 14:00 06/07/17 12:31 Dextrose/Sodium Chloride 1,000 ml @ 45 mls/hr Q22H IV 06/05/17 17:45 06/06/17 21:03 (Morphine Inj) 1 mg Q6H PRN IV 06/05/17 17:45 06/07/17 09:48 (Imitrex Inj) 6 mg UNSCH PRN SQ 06/05/17 20:15 (Heparin Inj) 5,000 units Q8HR SQ 06/05/17 22:00 06/07/17 13:28 (Mestinon) 120 mg Q8HR PO 06/05/17 23:00 06/07/17 12:28 (Benadryl Inj) 50 mg UNSCH PRN IV PUSH 06/06/17 12:30 06/12/17 12:29 (Adrenalin (1:1000) Inj) 0.3 mg Q10M PRN OTHER 06/06/17 12:30 06/12/17 12:29 (Tylenol) 650 mg Q24H PO 06/07/17 12:00 06/11/17 12:01 06/07/17 11:05 (Benadryl) 25 mg Q24H PO 06/07/17 12:00 06/11/17 12:01 06/07/17 11:05 Dextrose 500 ml @ 30 mls/hr Q24H IV 06/07/17 12:00 06/12/17 04:39 06/07/17 15:07 Allergies Allergies Coded Allergies penicillin G (Unverified Allergy, Severe, Anaphylaxis, 05/26/17) promethazine (Unverified Adverse Reaction, Severe, NAUSEOUS, 05/26/17) Review of Systems All other ROS: ROS reviewed as documented in chart Exam I&O / VS 06/07/17 06/07/17 06/08/17 14:59 22:59 06:59 Output Total 20 ml Balance -20 ml Output Urine Total 20 ml Vital Signs Date Time Temp Pulse Resp B/P (MAP) Pulse Ox O2 Delivery O2 Flow Rate FiO2 06/07/17 16:00 77 16 102/63 (76) 06/07/17 14:46 98.6 64 16 115/65 (82) 98 06/07/17 12:57 74 16 111/73 06/07/17 11:30 97.6 79 16 108/69 (82) 96 06/07/17 09:40 98 06/07/17 08:00 97.1 59 14 100/61 (74) 100 06/07/17 04:19 60 06/07/17 04:00 96.4 65 18 102/60 (74) 98 06/07/17 00:00 67 06/07/17 00:00 97.3 73 18 109/69 (82) 96 06/06/17 20:00 66 06/06/17 20:00 96.3 82 18 103/68 (80) 98 General: Alert and Oriented, No acute distress Eye: PERRL, EOMI, Normal conjuctiva, Vision unchanged Respiratory: Lungs CTA, Non-labored respirations Cardiology: Normal rate Musculoskeletal: ROM Neurologic: Alert, Oriented, Normal sensory, Normal motor, No focal defects, CN II-XII intact, Normal DTR's Psychiatric: Cooperative, Appropriate mood & affect, Normal judgement Exam Comments GENERAL: Awake, alert, pale, in mild distress, anxious. HEENT: Atraumatic, normocephalic. Intact hearing. Intact vision. NECK: Supple. Very weak, able to hold her head up CARDIOVASCULAR: Regular rate and rhythm. RESPIRATORY: Clear to auscultation. No wheezes. GASTROINTESTINAL: Soft, not tender, abdomen nontender. MUSCULOSKELETAL: No clubbing, no cyanosis. Weakness of four extremities. NEUROLOGIC: Awake, alert, oriented to time, person and place. Nasal tune to the voice. myasthenic snarl, bilateral lower motor neuron facial weakness, bilateral ptosis, diplopia, subtle sixth nerve palsy. 4/5 bilateral shoulder abduction, 4+/5 bilateral hip flexion with give-way on the right hip because of pain. Reflexes 1+ bilateral symmetrical. Plantars are bilaterally downgoing. Sensation is intact bilaterally throughout. Objective Radiology Results Last 72 hours Impressions Hip X-Ray 06/05/17919 Signed Impressions: Service Date/Time: Monday, June 05, 2017 09:49 - CONCLUSION: 1. Mild primary degenerative changes. No acute fracture or joint dislocation. Delroy James MD Chest X-Ray 06/05/17919 Signed Impressions: Service Date/Time: Monday, June 05, 2017 09:47 - CONCLUSION: No acute disease. No significant change has occurred. Delroy James MD Hip MRI 06/05/17 0000 Signed Impressions: Service Date/Time: Monday, June 05, 2017 20:33 - CONCLUSION: Severe edema of the femoral head and acetabulum with large joint effusion. Subchondral sclerosis and flattening of the femoral head is somewhat unusual for a typical avascular necrosis but still the most likely diagnosis. No loose body or fracture is identified. Ashok Beach MD [place],Shahram Eisenberg MD Jun 07, 2017 18:06
[2017-06-07] MEDS: AMITRIPTYLINE HCL 25 MG TAB PO SCH (22:35)
[2017-06-08] VITALS: BP 107/54; PULSE 56; RESP 17; TEMP 96; O2SAT 98
[2017-06-08 00:18] VITALS: PULSE 64
[2017-06-08] MEDS: ACETAMINOPHEN/HYDROcodone 325 MG/10 MG TAB PO PRN ×3 (03:38→12:59)
[2017-06-08] MEDS: ALPRAZolam 1 MG TAB PO SCH ×2 (03:38→08:59)
[2017-06-08 04:00] VITALS: BP 111/65; PULSE 74; RESP 18; TEMP 97; O2SAT 97
[2017-06-08] MEDS: PYRIDOSTIGMINE BROMIDE 60 MG TAB PO SCH (06:34)
[2017-06-08] MEDS: MORPHINE SULFATE 4 MG/ML INJ IV PRN (06:34)
[2017-06-08] MEDS: HEPARIN SODIUM - SQ 10,000 UNITS/ML VIAL SQ SCH (06:35)
[2017-06-08 08:00] VITALS: BP 105/56; PULSE 81; RESP 16; TEMP 97.2; O2SAT 97
[2017-06-08] MEDS: CITALOPRAM HYDROBROMIDE 40 MG TAB PO SCH (08:58)
[2017-06-08] MEDS: azaTHIOprine 50 MG TAB PO SCH (08:59)
[2017-06-08] MEDS: predniSONE 20 MG TAB PO SCH (08:59)
[2017-06-08] MEDS: SODIUM CHLORIDE 0.9% FLUSH 10 ML FLUSH IV FLUSH SCH (08:59)
[2017-06-08] MEDS: SUMAtriptan SUCCINATE 50 MG TAB PO PRN (09:00)
[2017-06-08] MEDS ORDERED: HYDR-3580 PO (09:45)
[2017-06-08] MEDS ORDERED: WALKER WHEELS/F1 MIS (10:13)
[2017-06-08] MEDS ORDERED: MEST60TA PO (11:04)
[2017-06-08] MEDS ORDERED: IMUR50TA PO (11:04)
[2017-06-08] MEDS ORDERED: PRED20 PO (11:04)
[2017-06-08] MEDS ORDERED: IMIT50TA PO (11:05)
--- NOTE | 2017-06-08 11:09 | HHI.DS ---
Discharge Summary Admission Date Jun 07, 2017 at 08:58 Discharge Date: Jun 08, 2017 Admitting Diagnosis MG flare (1) Myasthenia gravis ICD Code: G70.00 - Myasthenia gravis Status: Acute (2) Acute pain of right hip ICD Code: M25.551 - Pain in right hip Status: Acute (3) Avascular necrosis of right femoral head ICD Code: M87.051 - Idiopathic aseptic necrosis of right femur Procedures None Brief History - From Admission 42 years old female with history of myasthenia gravis on chronic steroid and azathioperine presented with worsening muscle weakness in her face jaw arms and legs as well as severe right hip pain more in the groin suspicious for femoral head necrosis considering patient is on chronic steroid. Patient also concerned about her headache for which she uses Imitrex twice a month, she denied any abdominal pain diarrhea constipation, dysuria urgency or frequency CBC/BMP: 06/05/17 1000 06/05/17 1000 Significant Findings Laboratory Tests Test 06/05/17 13:33 Urine Turbidity HAZY (CLEAR) Urine Ketones 150 mg/dL (NEG) Urine Occult Blood SMALL (NEG) Urine RBC 6 /hpf (0-3) Urine Mucus FEW /lpf (OCC) PE at Discharge GENERAL: This is a frail 42 years old female, in no apparent distress. But with severe hip SKIN: No rashes, warm and dry HEAD: Atraumatic. Normocephalic. EYES: Pupils equal round and reactive. Extraocular motions intact. No scleral icterus. ENT: Nose without bleeding, or drainage, Airway patent. NECK: Trachea midline. Supple CARDIOVASCULAR: Regular rate and rhythm without murmurs, gallops, or rubs. RESPIRATORY: Fair air entry bilaterally. No wheezes, rales, or rhonchi. GASTROINTESTINAL: Abdomen soft, non-tender, nondistended. Positive bowel sounds MUSCULOSKELETAL: Extremities without clubbing, cyanosis, or edema. Pedal pulses appreciated NEUROLOGICAL: Awake and alert oriented 3. Facial muscle weakness speech is much better today as well as motor strength Hospital Course 42 years old female with history of myasthenia gravis came with flareup, crisis of the MG, patient was given IVIG in the ED, neurology consulted 3 dose of IVIG has been given patient improved, also patient complaining of right groin pain, MRI of the hip has been done, showed features consistent with a vascular necrosis of the head of the femur, due to chronic steroid use, or so consulted, advised to continue conservative management plan for mostly total hip replacement as an outpatient. Patient requested prescription for her myasthenia gravis medication on day of discharge Pt Condition on Discharge: Fair Discharge Disposition: Discharge Home Discharge Time: <= 30 minutes Discharge Instructions DIET: Follow Instructions for: Heart Healthy Diet Additional Diet Instructions: fall precautions Activities you can perform: Weight Bearing as Astrid Follow up Referrals: Neurology - 10 Days Orthopedics - 2 Weeks with Luis Armando Baron MD New Medications: Walker with Front Wheels (Walker with Front Wheels) 1 Mis Mis EA .ROUTE DIRECTED for mg, #1 0 Refills Changed Medications: Sumatriptan (Imitrex) 50 Mg Tab 50 MG PO as needed PRN for HEADACHE, #10 TAB 0 Refills (Changed from: DAILY) If a satisfactory response has not been obtained at 2 hours, a second dose may be administered Continued Medications: Alprazolam (Xanax) 1 Mg Tab 1 MG PO Q6H for Anxiety, TAB 0 Refills Azathioprine (Imuran) 50 Mg Tab 50 MG PO DAILY for Immunosuppression, #15 TAB 0 Refills (This prescription has been renewed) Hazardous agent: use appropriate precautions for handling and disposal. Citalopram (Citalopram) 40 Mg Tab 40 MG PO DAILY for Control Depression, #30 TAB 0 Refills Hydrocodone-Acetaminophen (Hydrocodone-Acetaminophen) 7.5-325 mg Tab 1 TAB PO Q6H PRN for PAIN SCALE 5 TO 10, #15 TAB (This prescription has been renewed) Prednisone (Prednisone) 20 Mg Tab 20 MG PO DAILY for mg, #30 TAB 0 Refills (This prescription has been renewed) Pyridostigmine (Mestinon) 60 Mg Tab 120 MG PO TIDAC for Manage Myastenia Gravis, #90 TAB 0 Refills (This prescription has been renewed) Miguel Ángel Solomon MD Jun 08, 2017 11:09
[2017-06-08 12:00] VITALS: BP 113/58; PULSE 83; RESP 18; TEMP 97.5; O2SAT 99
== END 2017-06-08 14:03 | disposition home or self-care (01) | DRG 57 ==
LOC: NEPE 08:14 → INTOOBSV 11:57 → NEDA 11:57 → HOCA 16:44 → OBSVTOIN 06-07 08:58
PROVIDERS: ADMIT Hospitalist; ATTEND Hospitalist
DX: G70.01 Myasthenia gravis with (acute) exacerbation (principal); M87.151 Osteonecrosis due to drugs, right femur; F32.9 Major depressive disorder, single episode, unspecified; F41.9 Anxiety disorder, unspecified; S70.01XA Contusion of right hip, initial encounter; D64.9 Anemia, unspecified; F17.210 Nicotine dependence, cigarettes, uncomplicated; T38.0X5A Adverse effect of glucocorticoids and synthetic analogues, initial encounter; M79.7 Fibromyalgia; G89.4 Chronic pain syndrome; G43.809 Other migraine, not intractable, without status migrainosus; W19.XXXA Unspecified fall, initial encounter
CPT/HCPCS: 71010; 73502; 73721; 80053; 81001; 85025; 96361; 96372; 96374; 96375; 96376; G0378; G8996-GN; G8997-GN; G8998-GN; J1459; J1644; J1885; J2060; J2270; J2405; J7030; J7042; J7060; J7500; J7512

== ENCOUNTER 2017-06-19 16:15 | Inpatient (IN) | payer MEDICARE, MEDICAID ==
[~2017-06-19] VITALS: Ht 165.1 cm; Wt 51.7 kg
[~2017-06-19 16:15] MED LIST changes: +WALKER WHEELS/F1 MIS
[2017-06-19 16:17] VITALS: BP 138/79; PULSE 92; RESP 20; TEMP 98.6; O2SAT 100
--- NOTE | 2017-06-19 16:41 | PD ---
HPI Chief Complaint: Neuro Symptoms/ Deficits Time Seen by Provider: 16:41 Travel History International Travel<30 days: No Contact w/Intl Traveler<30days: No Traveled to known affect area: No History of Present Illness HPI Is a 42-year-old female with a history of myasthenia gravis presents emergency department for evaluation of left jaw locking up and generalized weakness. She states that this is what happens when her myasthenia gravis flares on her. She is also complaining of chronic right hip pain secondary to AV malformation. Patient states symptoms been going on for the past 24-48 hours. She was admitted at the end of last month for same. At that time she did receive IVIG infusion. Documented history of noncompliance with IVIG outpatient infusions. The patient denies any respiratory difficulty but does endorse some difficulty swallowing. She states that she has not been taking her pain medicine for her myasthenia gravis status. PFSH Past Medical History Hx Anticoagulant Therapy: No Anemia: Yes Arthritis: No Autoimmune Disease: Yes (MYASTHENA GRAVIS) Blood Disorders: No Anxiety: Yes Depression: Yes Heart Rhythm Problems: No Cancer: No Cardiovascular Problems: No High Cholesterol: No Chemotherapy: No Chest Pain: No Congestive Heart Failure: No Cerebrovascular Accident: No Cystic Fibrosis: No Diabetes: No Diminished Hearing: No Endocrine: No Gastrointestinal Disorders: Yes Genitourinary: No Headaches: Yes Hepatitis: No Hiatal Hernia: No Hypertension: No Immune Disorder: Yes (MYASTHENIA GRAVIS) Implanted Vascular Access Dvce: Yes (left chest) Musculoskeletal: Yes Neurologic: Yes (MYASTHENIA GRAVIS - Jul, 2013) Psychiatric: Yes (DEPRESSION, ANXIETY) Reproductive: No Respiratory: No Immunizations Current: No Migraines: Yes Seizures: No Thyroid Disease: No ?: Not : 2 Para: 2 Dilation and Curettage (D&C): Yes Tubal Ligation: Yes Past Surgical History Abdominal Surgery: No Body Medical Devices: LEFT IMPLANTED PORT Cardiac Surgery: No Ear Surgery: No Endocrine Surgery: Yes ( thymus) Eye Surgery: No Genitourinary Surgery: No Gynecologic Surgery: Yes (tubal ligation 2014) Hysterectomy: Yes Neurologic Surgery: No Oral Surgery: Yes (EXTRACTIONS) Thoracic Surgery: No Tonsillectomy: Yes Other Surgery: Yes (tubal ligation Dec 2014/ POWER PORT TO LEFT CHEST) Social History Alcohol Use: No Tobacco Use: Yes (< 1/2 PPD) Substance Use: No Allergies-Medications (Allergen,Severity, Reaction): Coded Allergies: penicillin G (Unverified Allergy, Severe, Anaphylaxis, 06/19/17) promethazine (Unverified Adverse Reaction, Severe, NAUSEOUS, 06/19/17) Reported Meds & Prescriptions Reported Meds & Active Scripts Active Imitrex (Sumatriptan Succinate) 50 Mg Tab 50 Mg PO NEEDED PRN If a satisfactory response has not been obtained at 2 hours, a second dose may be administered Imuran (Azathioprine) 50 Mg Tab 50 Mg PO DAILY Hazardous agent: use appropriate precautions for handling and disposal. Prednisone 20 Mg Tab 20 Mg PO DAILY Mestinon (Pyridostigmine [place]) 60 Mg Tab 120 Mg PO TIDAC Hydrocodone-Acetaminophen 7.5-325 mg Tab 1 Tab PO Q6H PRN Azathioprine 50 Mg Tab 50 Mg PO DAILY@18 Reported Xanax (Alprazolam) 1 Mg Tab 1 Mg PO Q6H Citalopram (Citalopram Hydrobromide) 40 Mg Tab 40 Mg PO DAILY Amitriptyline (Amitriptyline HCl) 25 Mg Tab 25 Mg PO HS Review of Systems Except as stated in HPI: all other systems reviewed are Neg Physical Exam Narrative GENERAL: Well-developed well-nourished no obvious distress. SKIN: Focused skin assessment warm/dry. HEAD: Atraumatic. Normocephalic. EYES: Pupils equal and round. No scleral icterus. No injection or drainage. ENT: No nasal bleeding or discharge. Mucous membranes pink and moist. NECK: Trachea midline. No JVD. CARDIOVASCULAR: Regular rate and rhythm. No murmur appreciated. RESPIRATORY: No accessory muscle use. Clear to auscultation. Breath sounds equal bilaterally. GASTROINTESTINAL: Abdomen soft, non-tender, nondistended. Hepatic and splenic margins not palpable. MUSCULOSKELETAL: No obvious deformities. No clubbing. No cyanosis. No edema. NEUROLOGICAL: Awake and alert. No obvious cranial nerve deficits. The patient with 4/5 strength in all 4 extremities, DTRs could not be elicited from the patient. Unsure if this is from poor patient effort or her underlying myasthenia gravis. No respiratory difficulty. PSYCHIATRIC: Appropriate mood and affect; insight and judgment normal. Data Data Last Documented VS Vital Signs Date Time Temp Pulse Resp B/P (MAP) Pulse Ox O2 Delivery O2 Flow Rate FiO2 06/19/17 17:06 69 18 112/62 (79) 97 Room Air 06/19/17 16:17 98.6 Orders Orders Complete Blood Count With Diff (06/19/17 16:41) Comprehensive Metabolic Panel (06/19/17 16:41) Iv Access Insert/Monitor (06/19/17 16:41) Ecg Monitoring (06/19/17 16:41) Oximetry (06/19/17 16:41) Sodium Chloride 0.9% Flush (Ns Flush) (06/19/17 16:45) Acetaminophen (Tylenol) (06/19/17 18:15) Admit Order (Ed Use Only) (06/19/17 ) Consult Neurology (06/19/17 ) Labs Laboratory Tests Test 06/19/17 17:00 White Blood Count 8.3 TH/MM3 Red Blood Count 4.24 MIL/MM3 Hemoglobin 10.5 GM/DL Hematocrit 33.2 % Mean Corpuscular Volume 78.2 FL Mean Corpuscular Hemoglobin 24.7 PG Mean Corpuscular Hemoglobin Concent 31.6 % Red Cell Distribution Width 19.2 % Platelet Count 369 TH/MM3 Mean Platelet Volume 7.9 FL Neutrophils (%) (Auto) 77.6 % Lymphocytes (%) (Auto) 15.8 % Monocytes (%) (Auto) 6.0 % Eosinophils (%) (Auto) 0.1 % Basophils (%) (Auto) 0.5 % Neutrophils # (Auto) 6.5 TH/MM3 Lymphocytes # (Auto) 1.3 TH/MM3 Monocytes # (Auto) 0.5 TH/MM3 Eosinophils # (Auto) 0.0 TH/MM3 Basophils # (Auto) 0.0 TH/MM3 CBC Comment DIFF FINAL Differential Comment Blood Urea Nitrogen 6 MG/DL Creatinine 0.59 MG/DL Random Glucose 79 MG/DL Total Protein 7.1 GM/DL Albumin 3.4 GM/DL Calcium Level 8.6 MG/DL Alkaline Phosphatase 49 U/L Aspartate Amino Transf (AST/SGOT) 9 U/L Alanine Aminotransferase (ALT/SGPT) 10 U/L Total Bilirubin 0.3 MG/DL Sodium Level 140 MEQ/L Potassium Level 3.5 MEQ/L Chloride Level 111 MEQ/L Carbon Dioxide Level 25.3 MEQ/L Anion Gap 4 MEQ/L Estimat Glomerular Filtration Rate 112 ML/MIN [facility] Medical Decision Making Medical Screen Exam Complete: Yes Emergency Medical Condition: Yes Differential Diagnosis Myasthenia gravis flare, chronic hip pain, possible secondary gains. Narrative Course Patient roomed emergency department, discussed with Dr. Álvarez who certainly with the patient. He recommends giving IVIG admission to the hospital. Basic labs negative. The patient is requesting pain medicine for her right hip and I informed her that icing and rather should not be painful. She states that she has a history of an AVM in her right hip and she's not been able take her pain medicine secondary difficulty swallowing. I've ordered a dose of Tylenol for her she appears quite comfortable. IVIG was ordered. Patient was discussed with Dr. Islas for admission. Diagnosis Primary Impression: Myasthenia gravis with exacerbation Admitting Information Admitting Physician Requests: Admit Condition: Stable Andrea Spann MD Jun 19, 2017 16:41
[2017-06-19] MEDS ORDERED: SODIUM CHLORIDE 0.9% FLUSH 10 ML FLUSH IV FLUSH PRN ×2 (16:45→19:15)
[2017-06-19 17:06] VITALS: BP 112/62; PULSE 69; RESP 18; O2SAT 97
[2017-06-19 17:24] LABS: AUTOMATED NEUTROPHIL # 6.5 TH/MM3 (1.8-7.7); BASOPHIL % 0.5 % (0.0-2.0); EOSINOPHIL % 0.1 % (0.0-4.0); HEMATOCRIT 33.2 % (35.0-46.0); HEMO FLAGS DIFF FINAL; LYMPH % 15.8 % (9.0-44.0); LYMPHOCYTE # 1.3 TH/MM3 (1.0-4.8); MEAN CELL VOLUME 78.2 FL (80.0-100.0); MEAN CORPUSCULAR HEMOGLOBIN 24.7 PG (27.0-34.0); MEAN CORPUSCULAR HGB CONC 31.6 % (32.0-36.0); NEUT % 77.6 % (16.0-70.0); PLATELET COUNT 369 TH/MM3 (150-450); RED BLOOD COUNT 4.24 MIL/MM3 (4.00-5.30); RED CELL DISTRIBUTION WIDTH 19.2 % (11.6-17.2); WHITE BLOOD COUNT 8.3 TH/MM3 (4.0-11.0)
[2017-06-19 17:40] LABS: ANION GAP 4 MEQ/L (5-15); AST (GOT) 9 U/L (15-37); BICARBONATE 25.3 MEQ/L (21.0-32.0); BLOOD UREA NITROGEN 6 MG/DL (7-18); CHLORIDE 111 MEQ/L (98-107); GLOMERULAR FILTRATION RATE 112 ML/MIN (>89); POTASSIUM 3.5 MEQ/L (3.5-5.1); SODIUM (NA) 140 MEQ/L (136-145)
[2017-06-19 17:41] LABS: ALT (GPT) 10 U/L (10-53)
[2017-06-19 17:43] LABS: ALKALINE PHOSPHATASE 49 U/L (45-117); TOTAL BILIRUBIN ADULT 0.3 MG/DL (0.2-1.0)
[2017-06-19] MEDS ORDERED: ACETAMINOPHEN 325 MG TAB PO ONE (18:15)
[2017-06-19] MEDS ORDERED: BISACODYL 10 MG SUPP RECTAL PRN (19:15)
[2017-06-19] MEDS ORDERED: MAGNESIUM HYDROXIDE SUSP 30 ML CUP PO PRN (19:15)
[2017-06-19] MEDS ORDERED: ONDANSETRON HCL 4 MG/2 ML VIAL IVP PRN (19:15)
[2017-06-19] MEDS ORDERED: SENNOSIDES 8.6 MG TAB PO PRN (19:15)
[2017-06-19] MEDS ORDERED: ACETAMINOPHEN 325 MG TAB PO PRN (19:15)
[2017-06-19] MEDS ORDERED: LACTULOSE SYRUP 20 GM/30 ML CUP PO PRN (19:15)
--- NOTE | 2017-06-19 19:23 | HHI.HP ---
HPI Service [facility] Primary Care Physician Non-Staff Admission Diagnosis Myasthenia Gravis Flare. Diagnoses: (1) Myasthenia gravis Diagnosis: Principal (2) Right hip pain Diagnosis: Principal (3) Tobacco abuse Diagnosis: Principal Travel History International Travel<30 Days: No Contact w/Intl Traveler <30 Da: No Traveled to Known Affected Are: No History of Present Illness This is a 22-year-old female with a PMH of Myasthenic Gravis, Fibromyalgia, Anxiety, Depression, Migraine, Right Hip Avascular Necrosis and Chronic Right Hip Pain who presented to the ER w/ complaints of left jaw pain and generalized weakness which she attributes to her typical MG flare. Multiple presentations/ admissions for same. 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 Complains of persistent right hip pain. Previously following w/ Neurology, however no outpatient follow up at this time, states she ran out of Mestinon,only on chronic steroid therapy w/ Prednisone 20mg po qd. S/p eval by Dr. Vizcarra in ER, plan is for IVIG. Review of Systems Except as stated in HPI: all other systems reviewed are Neg ROS: 14 point review of systems otherwise negative. Past Family Social History Past Medical History PMH: Myasthenic Gravis, Fibromyalgia, Anxiety, Depression, Migraine, Right Hip Avascular Necrosis and Chronic Right Hip Pain Past Surgical History PAST SURGICAL HISTORY: Left Port, Thymectomy, Tubal Ligation, Hysterectomy dental Extraction, Tonsillectomy Allergies: Coded Allergies: penicillin G (Unverified Allergy, Severe, Anaphylaxis, 06/19/17) promethazine (Unverified Adverse Reaction, Severe, NAUSEOUS, 06/19/17) Family History PAST FAMILY HISTORY: Reviewed. No h/o DM or CAD Social History PAST SOCIAL HISTORY: Negative for alcohol or drugs. Positive for tobacco. Physical Exam Vital Signs Vital Signs Date Time Temp Pulse Resp B/P (MAP) Pulse Ox O2 Delivery O2 Flow Rate FiO2 06/19/17 17:06 69 18 112/62 (79) 97 Room Air 06/19/17 16:40 86 06/19/17 16:17 98.6 92 20 138/79 (98) 100 Room Air Physical Exam PE: GENERAL: Middle-aged female in no acute distress. HEENT: PERRLA, EOMI. No scleral icterus or conjunctival pallor. No lid lag or facial droop. CARDIOVASCULAR: Regular rate and rhythm. No obvious murmurs to auscultation. No chest tenderness to palpation. RESPIRATORY: No obvious rhonchi or wheezing. Clear to auscultation. Breath sounds equal bilaterally. GASTROINTESTINAL: Abdomen soft, non-tender, nondistended. BS normal. MUSCULOSKELETAL: Extremities without clubbing, cyanosis, or edema. No obvious deformities. NEUROLOGICAL: Awake, alert and oriented x4. No focal neurologic deficits. Generalized weakness, 4/5 strength bilateral UE/LE. Moving both upper and lower extremities spontaneously. Laboratory Laboratory Tests Test 06/19/17 17:00 White Blood Count 8.3 Red Blood Count 4.24 Hemoglobin 10.5 Hematocrit 33.2 Mean Corpuscular Volume 78.2 Mean Corpuscular Hemoglobin 24.7 Mean Corpuscular Hemoglobin Concent 31.6 Red Cell Distribution Width 19.2 Platelet Count 369 Mean Platelet Volume 7.9 Neutrophils (%) (Auto) 77.6 Lymphocytes (%) (Auto) 15.8 Monocytes (%) (Auto) 6.0 Eosinophils (%) (Auto) 0.1 Basophils (%) (Auto) 0.5 Neutrophils # (Auto) 6.5 Lymphocytes # (Auto) 1.3 Monocytes # (Auto) 0.5 Eosinophils # (Auto) 0.0 Basophils # (Auto) 0.0 CBC Comment DIFF FINAL Differential Comment Blood Urea Nitrogen 6 Creatinine 0.59 Random Glucose 79 Total Protein 7.1 Albumin 3.4 Calcium Level 8.6 Alkaline Phosphatase 49 Aspartate Amino Transf (AST/SGOT) 9 Alanine Aminotransferase (ALT/SGPT) 10 Total Bilirubin 0.3 Sodium Level 140 Potassium Level 3.5 Chloride Level 111 Carbon Dioxide Level 25.3 Anion Gap 4 Estimat Glomerular Filtration Rate 112 Result Diagram: 06/19/17 1700 06/19/17 1700 Caprini VTE Risk Assessment Caprini VTE Risk Assessment: No/Low Risk (score <= 1) Caprini Risk Assessment Model Point Value = 1 Point Value = 2 Point Value = 3 Point Value = 5 Age 41-60 Minor surgery BMI > 25 kg/m2 Swollen legs Varicose veins or History of unexplained or recurrent spontaneous Oral contraceptives or hormone replacement Sepsis (< 1 month) Serious lung disease, including pneumonia (< 1 month) Abnormal pulmonary function Acute myocardial infarction Congestive heart failure (< 1 month) History of inflammatory bowel disease Medical patient at bed rest Age 61-74 Arthroscopic surgery Major open surgery (> 45 min) Laparoscopic surgery (> 45 min) Malignancy Confined to bed (> 72 hours) Immobilizing plaster cast Central venous access Age >= 75 History of VTE Family history of VTE Factor V Leiden Prothrombin [id number] Lupus anticoagulant Anticardiolipin antibodies Elevated serum homocysteine Heparin-induced thrombocytopenia Other congenital or acquired thrombophilia Stroke (< 1 month) Elective arthroplasty Hip, pelvis, or leg fracture Acute spinal cord injury (< 1 month) Prophylaxis Regimen Total Risk Factor Score Risk Level Prophylaxis Regimen 0-1 Low Early ambulation 2 Moderate Order ONE of the following: *Sequential Compression Device (SCD) *Heparin 5000 units SQ BID 3-4 Higher Order ONE of the following medications: *Heparin 5000 units SQ TID *Enoxaparin/Lovenox 40 mg SQ daily (WT < 150 kg, CrCl > 30 mL/min) *Enoxaparin/Lovenox 30 mg SQ daily (WT < 150 kg, CrCl > 10-29 mL/min) *Enoxaparin/Lovenox 30 mg SQ BID (WT < 150 kg, CrCl > 30 mL/min) AND/OR *Sequential Compression Device (SCD) 5 or more Highest Order ONE of the following medications: *Heparin 5000 units SQ TID (Preferred with Epidurals) *Enoxaparin/Lovenox 40 mg SQ daily (WT < 150 kg, CrCl > 30 mL/min) *Enoxaparin/Lovenox 30 mg SQ daily (WT < 150 kg, CrCl > 10-29 mL/min) *Enoxaparin/Lovenox 30 mg SQ BID (WT < 150 kg, CrCl > 30 mL/min) AND *Sequential Compression Device (SCD) Assessment and Plan Problem List: (1) Myasthenia gravis ICD Code: G70.00 - Myasthenia gravis Status: Acute (2) Right hip pain ICD Code: M25.551 - Pain in right hip Status: Acute (3) Tobacco abuse ICD Code: Z72.0 - Tobacco abuse Status: Chronic Assessment and Plan A/P: 1. Myasthenia Gravis: w/ Acute Flare, refractory likely in part due to Non- compliance w/ medications, no outpatient follow up. S/p eval by Dr. Vizcarra, plan for IVIG. Check NIF/FVC, no respiratory compromise at this time. Continue w/ home Prednisone 20mg qd. PT for eval/tx 2. Right Hip Pain: Chronic. Previous admit w/ MRI 06/05/17 showing avascular necrosis, images reviewed by me, s/p eval by Ortho w/ plans for possible outpatient total hip replacement. Will continue w/ conservative management at this time, analgesics as needed. 3. Tobacco Abuse: Pt counselled. Ativan prn if needed. 4. DVT Prophylaxis: SCD/Teds. 5. Social work for d/c planning as needed. 6. Case discussed w/ ER physician at length. Physician Certification 2 Midnight Certification Type: Admission for Inpatient Services Order for Inpatient Services The services are ordered in accordance with Medicare regulations or non- Medicare payer requirements, as applicable. In the case of services not specified as inpatient-only, they are appropriately provided as inpatient services in accordance with the 2-midnight benchmark. Estimated LOS (days): 2 days is the estimated time the patient will need to remain in the hospital, assuming treatment plan goals are met and no additional complications. Post-Hospital Plan: Not yet determined Blanche Cisse MD Jun 19, 2017 19:23
--- NOTE | 2017-06-19 19:25 | PD.CONS ---
History of Present Illness Service Neurology Consult Requested By er Reason for Consult myasthenia Primary Care Physician Non-Staff History of Present Illness 42 year old female with a history of myasthenia gravis and anxiety who presents with 2 days of weakness, gait changes. no diplopia but mild blurry vision in the rt eye. no dyspnea, no dysphagia. has had numerous admissions to this and other local hospitals for myasthenia. ran out of mestinon. takes prednisone 20mg qd x years. was started on imuran but only took it for a week. no side effects. states she has been on cellcept. She sees Dr. Banuelos (neurology) as an outpatient. but states she no longer see's him because he can't help her. She was intubated in February 2017 at [facility] and had plex tx. she doesn't think it helped much Review of Systems as above and admit hp Past Family Social History Past Medical History myasthenia anxiety depression fibromyalgia Past Surgical History Thymus gland removed Tubal ligation [id number] Allergies: Coded Allergies: Penicillin (Verified Allergy, Severe, Anaphylaxis, 03/08/17) Phenergan (Verified Adverse Reaction, Severe, NAUSEOUS, 03/08/17) Family History No one in the family with myasthenia Father - pancreatic cancer age 62 Social History Cigarettes - 1/2 ppd- working on quitting Illicit - Denies She lives in an house, no stairs, and lives alone. At baseline she is able to walk and do ADLs/IADLs Review of Systems All other ROS: ROS reviewed as documented in chart Past Family Social History Allergies: Coded Allergies: penicillin G (Unverified Allergy, Severe, Anaphylaxis, 06/19/17) promethazine (Unverified Adverse Reaction, Severe, NAUSEOUS, 06/19/17) Active Ordered Medications Current Medications Medications (Trade) Dose Ordered Sig/Gómez Route Start Time Stop Time Status Last Admin (NS Flush) 2 ml UNSCH PRN IV FLUSH 06/19/17 16:45 (NS Flush) 2 ml UNSCH PRN IV FLUSH 06/19/17 19:15 UNV (NS Flush) 2 ml BID IV FLUSH 06/19/17 21:00 UNV (Zofran Inj) 4 mg Q6H PRN IVP 06/19/17 19:15 UNV (Tylenol) 650 mg Q6H PRN PO 06/19/17 19:15 UNV (Bonita-Colace) 1 tab BID PO 06/19/17 21:00 UNV (Milk Of Magnesia Liq) 30 ml Q12H PRN PO 06/19/17 19:15 UNV (Senokot) 17.2 mg Q12H PRN PO 06/19/17 19:15 UNV (Dulcolax Supp) 10 mg DAILY PRN RECTAL 06/19/17 19:15 UNV (Lactulose Liq) 30 ml DAILY PRN PO 06/19/17 19:15 UNV (Xanax) 1 mg Q6H PO 06/19/17 19:15 UNV (Elavil) 25 mg HS PO 06/19/17 21:00 UNV (Imuran) 50 mg DAILY@18 PO 06/20/17 18:00 UNV (CeleXA) 40 mg DAILY PO 06/20/17 09:00 UNV ([place] 7.5-325 Mg) 1 tab Q6H PRN PO 06/19/17 19:15 UNV (Deltasone) 20 mg DAILY PO 06/20/17 09:00 UNV (Mestinon) 120 mg TIDAC PO 06/20/17 08:00 UNV Exam I&O / VS Vital Signs Date Time Temp Pulse Resp B/P (MAP) Pulse Ox O2 Delivery O2 Flow Rate FiO2 06/19/17 17:06 69 18 112/62 (79) 97 Room Air 06/19/17 16:40 86 06/19/17 16:17 98.6 92 20 138/79 (98) 100 Room Air General: Alert and Oriented, No acute distress Eye: PERRL, EOMI, Normal conjuctiva, Vision unchanged Respiratory: Lungs CTA, Non-labored respirations Cardiology: Normal rate Musculoskeletal: ROM Neurologic: Alert, Oriented, Normal sensory, CN II-XII intact, Normal DTR's Psychiatric: Cooperative, Appropriate mood & affect, Normal judgement Exam Comments ox 3, no aphasia, minimal dysarthria towards end of interview, no dyspnea, no accessory muscle use, ou 3-2mm, no ptosis, eomi, mild cushingoid appearance, mild proximal fatiguable weakness, msr sym, no clonus, planterflexor Review/Management Diagnosis/Plan: (1) Myasthenia gravis ICD Codes: G70.00 - Myasthenia gravis Status: Acute Plan: refractory myasthenia however compliance to meds has been poor at times due to inability to get refills per pt recs ivig x 3-5 tx' s/b d/w pt, agrees to tx consideration of iv rituxamab in future if she fails imuran despite taking it compliantly tele resume home meds resp checks nif/fvc p.t. follow exam (2) Depression ICD Codes: F32.9 - Depression Status: Chronic (3) Migraine ICD Codes: G43.909 - Migraine Status: Chronic (4) Fibromyalgia ICD Codes: M79.7 - Fibromyalgia Status: Chronic Artie Vizcarra MD Jun 19, 2017 19:25
[2017-06-19 19:28] VITALS: BP 96/53; PULSE 83; RESP 18; O2SAT 99
[2017-06-19] MEDS: ALPRAZolam 1 MG TAB PO SCH (20:07)
[2017-06-19] MEDS: SODIUM CHLORID 0.9% 500 ML INJ 500 ML IV SCH (20:36)
[2017-06-19 20:52] LABS: BLOOD GAS BASE EXCESS -0.5 mmol/L (-2-2); BLOOD GAS CARBOXYHEMOGLOBIN 1.4 % (0-4); BLOOD GAS HCO3 24 mmol/L (22-26); BLOOD GAS METHEMOGLOBIN 0.3 % (0-2); BLOOD GAS O2 HGB SATURATION 96 % (90-100); BLOOD GAS OXYGEN CONTENT 12.8 Vol % (12.0-20.0); BLOOD GAS PCO2 38 mmHg (38-42); BLOOD GAS PO2 91 mmHG (61-120); BLOOD GAS TOTAL HGB 9.4 G/DL (12.0-16.0); TEMP CORR TO 98.6
[2017-06-19 20:53] LABS: CRITICAL VALUE NO; DRAW SITE RT RADIAL; FIO2 21 %; NUMBER OF ARTERIAL PUNCTURES 1; OXYGEN DEVICE ROOM AIR; STAT YES; ULNAR PULSE PRESENT
[2017-06-19] MEDS: DOCUSATE SODIUM 50 MG/SENNA 8.6 MG TAB PO SCH (21:00)
[2017-06-19] MEDS ORDERED: EPINEPHrine HCL (1:1000) 1 MG/ML VIAL OTHER PRN (21:00)
[2017-06-19] MEDS ORDERED: diphenhydrAMINE HCL 50 MG/ML VIAL IV PUSH PRN (21:00)
[2017-06-19] MEDS: SODIUM CHLORIDE 0.9% FLUSH 10 ML FLUSH IV FLUSH SCH (21:06)
[2017-06-19] MEDS: diphenhydrAMINE HCL 25 MG CAP PO SCH (21:06)
[2017-06-19] MEDS: ACETAMINOPHEN 325 MG TAB PO SCH (21:07)
[2017-06-19] MEDS: HEPARIN SODIUM - SQ 10,000 UNITS/ML VIAL SQ SCH (21:07)
[2017-06-19] MEDS: ACETAMINOPHEN/HYDROcodone 325 MG/7.5 MG TAB PO PRN (21:25)
[2017-06-19] MEDS ORDERED: DEXTROSE 5% IN WATE 500 ML INJ 500 ML OTHER SCH (22:00)
[2017-06-19] MEDS ORDERED: PYRIDOSTIGMINE BROMIDE 60 MG TAB PO ONE (22:30)
[2017-06-19] MEDS: AMITRIPTYLINE HCL 25 MG TAB PO SCH (22:47)
[2017-06-19] MEDS: IMMUNE GLOBULIN INJ 20 GM in SYRINGE/BAG 1 EA IV SCH (22:54)
[2017-06-20] VITALS (9 sets, daily range): BP systolic 88–106; BP diastolic 50–59; PULSE 62–68; RESP 18–29; TEMP 97.8–98.4; O2SAT 95–99
[2017-06-20] MEDS: ALPRAZolam 1 MG TAB PO SCH ×4 (03:00→20:54)
[2017-06-20] MEDS: ACETAMINOPHEN/HYDROcodone 325 MG/7.5 MG TAB PO PRN ×2 (04:18→10:17)
[2017-06-20] MEDS: PYRIDOSTIGMINE BROMIDE 60 MG TAB PO SCH ×4 (08:32→20:54)
[2017-06-20] MEDS: DOCUSATE SODIUM 50 MG/SENNA 8.6 MG TAB PO SCH ×2 (08:33→20:54)
[2017-06-20] MEDS: CITALOPRAM HYDROBROMIDE 40 MG TAB PO SCH (08:33)
[2017-06-20] MEDS: HEPARIN SODIUM - SQ 10,000 UNITS/ML VIAL SQ SCH ×2 (08:34→21:00)
[2017-06-20] MEDS: SODIUM CHLORIDE 0.9% FLUSH 10 ML FLUSH IV FLUSH SCH ×2 (08:34→20:54)
[2017-06-20] MEDS ORDERED: predniSONE 20 MG TAB PO SCH (09:00)
--- NOTE | 2017-06-20 09:35 | HHI.PR ---
Review/Management Diagnosis/Plan: (1) Myasthenia gravis ICD Codes: G70.00 - Myasthenia gravis Status: Acute Plan: refractory myasthenia however compliance to meds has been poor at times due to inability to get refills per pt consideration of iv rituxamab in future if she fails imuran despite taking it compliantly ivig 2/5 today recs ics tx for resp status with worsening bulbar function ivig x 3-5 tx' s/b d/w pt, agrees to tx would like ccm on case to monitor resp status in icu resp checks nif/fvc p.t./s.t follow exam (2) Depression ICD Codes: F32.9 - Depression Status: Chronic (3) Migraine ICD Codes: G43.909 - Migraine Status: Chronic (4) Fibromyalgia ICD Codes: M79.7 - Fibromyalgia Status: Chronic Subjective Subjective Comments No acute events reported\ speech more difficult breathing ok No headache No chest pain No dyspnea Active Medications Current Medications Medications (Trade) Dose Ordered Sig/Gómez Route Start Time Stop Time Status Last Admin (NS Flush) 2 ml UNSCH PRN IV FLUSH 06/19/17 19:15 (NS Flush) 2 ml BID IV FLUSH 06/19/17 21:00 06/20/17 08:34 (Zofran Inj) 4 mg Q6H PRN IVP 06/19/17 19:15 (Tylenol) 650 mg Q6H PRN PO 06/19/17 19:15 (Bonita-Colace) 1 tab BID PO 06/19/17 21:00 (Milk Of Magnesia Liq) 30 ml Q12H PRN PO 06/19/17 19:15 (Senokot) 17.2 mg Q12H PRN PO 06/19/17 19:15 (Dulcolax Supp) 10 mg DAILY PRN RECTAL 06/19/17 19:15 (Lactulose Liq) 30 ml DAILY PRN PO 06/19/17 19:15 (Xanax) 1 mg Q6H PO 06/19/17 21:00 06/20/17 08:32 (Elavil) 25 mg HS PO 06/19/17 21:00 06/19/17 22:47 (Imuran) 50 mg DAILY@18 PO 06/20/17 18:00 (CeleXA) 40 mg DAILY PO 06/20/17 09:00 06/20/17 08:33 ([place] 7.5-325 Mg) 1 tab Q6H PRN PO 06/19/17 19:15 06/20/17 04:18 (Deltasone) 20 mg DAILY PO 06/20/17 09:00 06/20/17 08:33 (Mestinon) 120 mg TIDAC PO 06/20/17 08:00 06/20/17 08:32 Sodium Chloride 500 ml @ 500 mls/hr Q24H IV 06/19/17 21:00 06/23/17 21:59 06/19/17 20:36 (Tylenol) 650 mg Q24H PO 06/19/17 21:00 06/24/17 20:59 06/19/17 21:07 Dextrose 500 ml @ 30 mls/hr [id number] OTHER 06/19/17 22:00 06/23/17 09:19 06/19/17 22:00 (Benadryl) 25 mg Q24H PO 06/19/17 21:00 06/24/17 20:59 06/19/17 21:06 Immune Globulin 20 gm/Syringe / Bag 200 ml @ 15.6 mls/hr Q24H IV 06/19/17 22:00 06/24/17 10:50 06/19/17 22:54 (Benadryl Inj) 50 mg UNSCH PRN IV PUSH 06/19/17 21:00 06/25/17 20:59 (Adrenalin (1:1000) Inj) 0.3 mg Q10M PRN OTHER 06/19/17 21:00 06/25/17 20:59 (Heparin Inj) 5,000 units Q12HR SQ 06/19/17 21:00 06/19/17 21:07 Allergies Allergies Coded Allergies penicillin G (Unverified Allergy, Severe, Anaphylaxis, 06/19/17) promethazine (Unverified Adverse Reaction, Severe, NAUSEOUS, 06/19/17) Review of Systems All other ROS: ROS reviewed as documented in chart Exam I&O / VS Vital Signs Date Time Temp Pulse Resp B/P (MAP) Pulse Ox O2 Delivery O2 Flow Rate FiO2 06/20/17 06:23 97.8 67 18 88/50 (63) 97 06/20/17 00:00 97.8 62 18 93/55 (68) 99 06/19/17 22:54 64 16 93/55 06/19/17 19:28 83 18 96/53 (67) 99 06/19/17 17:06 69 18 112/62 (79) 97 Room Air 06/19/17 16:40 86 06/19/17 16:17 98.6 92 20 138/79 (98) 100 Room Air General: Alert and Oriented, No acute distress Eye: PERRL, EOMI, Normal conjuctiva, Vision unchanged Respiratory: Lungs CTA, Non-labored respirations Cardiology: Normal rate Musculoskeletal: ROM Neurologic: Alert, Oriented, Normal sensory, CN II-XII intact, Normal DTR's Psychiatric: Cooperative, Appropriate mood & affect, Normal judgement Exam Comments ox 3, no aphasia,more dysphonia, difficulty counting to 20, no dyspnea, no accessory muscle use, ou 3-2mm, mild ptosis, eomi, mild cushingoid appearance, mild proximal fatiguable weakness, msr sym, no clonus, planterflexor Objective Micro and Labs Laboratory Tests Test 06/19/17 17:00 06/19/17 20:40 White Blood Count 8.3 Red Blood Count 4.24 Hemoglobin 10.5 Hematocrit 33.2 Mean Corpuscular Volume 78.2 Mean Corpuscular Hemoglobin 24.7 Mean Corpuscular Hemoglobin Concent 31.6 Red Cell Distribution Width 19.2 Platelet Count 369 Mean Platelet Volume 7.9 Neutrophils (%) (Auto) 77.6 Lymphocytes (%) (Auto) 15.8 Monocytes (%) (Auto) 6.0 Eosinophils (%) (Auto) 0.1 Basophils (%) (Auto) 0.5 Neutrophils # (Auto) 6.5 Lymphocytes # (Auto) 1.3 Monocytes # (Auto) 0.5 Eosinophils # (Auto) 0.0 Basophils # (Auto) 0.0 CBC Comment DIFF FINAL Differential Comment Blood Urea Nitrogen 6 Creatinine 0.59 Random Glucose 79 Total Protein 7.1 Albumin 3.4 Calcium Level 8.6 Alkaline Phosphatase 49 Aspartate Amino Transf (AST/SGOT) 9 Alanine Aminotransferase (ALT/SGPT) 10 Total Bilirubin 0.3 Sodium Level 140 Potassium Level 3.5 Chloride Level 111 Carbon Dioxide Level 25.3 Anion Gap 4 Estimat Glomerular Filtration Rate 112 Blood Gas Puncture Site RT RADIAL Blood Gas Patient Temperature 98.6 Blood Gas HCO3 24 Blood Gas Base Excess -0.5 Blood Gas Oxygen Saturation 96 Arterial Blood pH 7.41 Arterial Blood Partial Pressure CO2 38 Arterial Blood Partial Pressure O2 91 Arterial Blood Oxygen Content 12.8 Arterial Blood Carboxyhemoglobin 1.4 Arterial Blood Methemoglobin 0.3 Blood Gas Hemoglobin 9.4 Oxygen Delivery Device ROOM AIR Blood Gas Inspired Oxygen 21 Artie Vizcarra MD Jun 20, 2017 09:35
[2017-06-20] MEDS: methylPREDNISolone SOD SUCC 125 MG/2 ML VIAL IV SCH ×2 (10:17→20:53)
[2017-06-20] MEDS: SODIUM CHLOR 0.9% 1000 ML INJ 1,000 ML IV SCH ×2 (10:37→23:20)
[2017-06-20 10:45] LABS: AUTOMATED NEUTROPHIL # 2.6 TH/MM3 (1.8-7.7); BASOPHIL # 0.1 TH/MM3 (0-0.2); BASOPHIL % 1.3 % (0.0-2.0); EOSINOPHIL # 0.1 TH/MM3 (0-0.4); EOSINOPHIL % 1.3 % (0.0-4.0); HEMATOCRIT 32.3 % (35.0-46.0); HEMO FLAGS DIFF FINAL; LYMPH % 47.2 % (9.0-44.0); LYMPHOCYTE # 2.9 TH/MM3 (1.0-4.8); MEAN CELL VOLUME 79.2 FL (80.0-100.0); MEAN CORPUSCULAR HEMOGLOBIN 25.3 PG (27.0-34.0); MONO % 7.6 % (0.0-8.0); NEUT % 42.6 % (16.0-70.0); PLATELET COUNT 290 TH/MM3 (150-450); RED BLOOD COUNT 4.09 MIL/MM3 (4.00-5.30); WHITE BLOOD COUNT 6.2 TH/MM3 (4.0-11.0)
[2017-06-20 11:04] LABS: ALT (GPT) 10 U/L (10-53); ANION GAP 3 MEQ/L (5-15); AST (GOT) 6 U/L (15-37); BICARBONATE 25.3 MEQ/L (21.0-32.0); BLOOD UREA NITROGEN 8 MG/DL (7-18); CHLORIDE 110 MEQ/L (98-107); GLOMERULAR FILTRATION RATE 85 ML/MIN (>89); POTASSIUM 3.4 MEQ/L (3.5-5.1); SODIUM (NA) 138 MEQ/L (136-145)
[2017-06-20 11:07] LABS: ALKALINE PHOSPHATASE 46 U/L (45-117); TOTAL BILIRUBIN ADULT 0.5 MG/DL (0.2-1.0)
[2017-06-20] MEDS: NICOTINE 14 MG/24 HR PATCH T-DERMAL SCH (14:40)
[2017-06-20] MEDS: ACETAMINOPHEN/HYDROcodone 325 MG/10 MG TAB PO PRN ×3 (14:40→23:02)
[2017-06-20] MEDS: LOPERAMIDE HCL 2 MG CAP PO PRN (15:53)
--- NOTE | 2017-06-20 15:55 | HHI.PR ---
Subjective Remarks Patient resting in bed, she thinks she feels better then when she first came Patient recently has been discharged after she got 3 doses of IVIG however obviously she got relapse soon after, patient told me discuss with neurology he plan on 5 doses of IVIG Hematosis seems to be improving, no other complaint such as short of breath or headache Objective Vitals Vital Signs Date Time Temp Pulse Resp B/P (MAP) Pulse Ox O2 Delivery O2 Flow Rate FiO2 06/20/17 12:00 68 06/20/17 12:00 98.3 68 20 101/59 (73) 97 06/20/17 08:41 68 06/20/17 06:23 97.8 67 18 88/50 (63) 97 06/20/17 00:00 97.8 62 18 93/55 (68) 99 06/19/17 22:54 64 16 93/55 06/19/17 19:28 83 18 96/53 (67) 99 06/19/17 17:06 69 18 112/62 (79) 97 Room Air 06/19/17 16:40 86 06/19/17 16:17 98.6 92 20 138/79 (98) 100 Room Air I/O 06/19/17 06/19/17 06/19/17 06/20/17 06/20/17 06/20/17 06:59 14:59 22:59 06:59 14:59 22:59 Intake Total 500 ml 240 ml Balance 500 ml 240 ml Intake Oral 240 ml IV Total 500 ml # Voids 2 Result Diagram: 06/20/17 0957 06/20/17 0937 Objective Remarks GENERAL: This is a well-nourished, well-developed patient, in no apparent distress. SKIN: No rashes, warm and dry HEAD: Atraumatic. Normocephalic. EYES: Pupils equal round and reactive. Extraocular motions intact. No scleral icterus. ENT: Nose without bleeding, or drainage, Airway patent. NECK: Trachea midline. Supple CARDIOVASCULAR: Regular rate and rhythm without murmurs, gallops, or rubs. RESPIRATORY: Fair air entry bilaterally. No wheezes, rales, or rhonchi. GASTROINTESTINAL: Abdomen soft, non-tender, nondistended. Positive bowel sounds MUSCULOSKELETAL: Extremities without clubbing, cyanosis, or edema. Pedal pulses appreciated NEUROLOGICAL: Awake and alert. Moves all extremity. Normal speech.no focal neurological deficit A/P Problem List: (1) Myasthenia gravis ICD Code: G70.00 - Myasthenia gravis Status: Acute (2) Right hip pain ICD Code: M25.551 - Pain in right hip Status: Acute (3) Tobacco abuse ICD Code: Z72.0 - Tobacco abuse Status: Chronic Assessment and Plan - Myasthenia Gravis: w/ Acute Flare, refractory likely in part due to Non- compliance w/ medications, no outpatient follow up. Appreciate neurology consult by Dr. Vizcarra, plan for IVIG 5 doses. Continue w/ home Prednisone 20mg qd. PT for eval/tx, patient transferred to ICU for closer monitoring, monitor for any respiratory compromise - Right Hip Pain: Chronic. Previous admit w/ MRI 06/05/17 showing avascular necrosis, , s/p eval by Ortho w/ plans for possible outpatient total hip replacement. Will continue w/ conservative management at this time, analgesics as needed. - Tobacco Abuse: Pt counselled. Ativan prn if needed. - DVT Prophylaxis: SCD/Teds. Miguel Ángel Solomon MD Jun 20, 2017 15:54
[2017-06-20] MEDS: azaTHIOprine 50 MG TAB PO SCH (18:24)
[2017-06-20] MEDS: SODIUM CHLORID 0.9% 500 ML INJ 500 ML IV SCH (20:53)
[2017-06-20] MEDS: diphenhydrAMINE HCL 25 MG CAP PO SCH (20:53)
[2017-06-20] MEDS: ACETAMINOPHEN 325 MG TAB PO SCH (20:53)
[2017-06-20] MEDS: AMITRIPTYLINE HCL 25 MG TAB PO SCH (20:54)
[2017-06-20] MEDS ORDERED: D5W as prime bag (IVIG as secondary) IV SCH (22:00)
[2017-06-20] MEDS: IMMUNE GLOBULIN INJ 20 GM in SYRINGE/BAG 1 EA IV SCH (22:18)
[2017-06-21] VITALS (12 sets, daily range): BP systolic 102–140; BP diastolic 56–81; PULSE 54–87; RESP 17–24; TEMP 97.5–98.7; O2SAT 96–100
[2017-06-21] MEDS: ALPRAZolam 1 MG TAB PO SCH ×4 (03:08→19:56)
[2017-06-21] MEDS: ACETAMINOPHEN/HYDROcodone 325 MG/10 MG TAB PO PRN ×6 (03:09→22:53)
[2017-06-21] MEDS: PYRIDOSTIGMINE BROMIDE 60 MG TAB PO SCH ×3 (06:21→17:33)
[2017-06-21] MEDS: DOCUSATE SODIUM 50 MG/SENNA 8.6 MG TAB PO SCH ×3 (09:00→21:00)
[2017-06-21] MEDS: REMOVE OLD PATCH T-DERMAL SCH (09:00)
[2017-06-21] MEDS: HEPARIN SODIUM - SQ 10,000 UNITS/ML VIAL SQ SCH ×4 (09:00→20:15)
[2017-06-21] MEDS: SODIUM CHLORIDE 0.9% FLUSH 10 ML FLUSH IV FLUSH SCH ×2 (09:36→19:56)
[2017-06-21] MEDS: methylPREDNISolone SOD SUCC 125 MG/2 ML VIAL IV SCH ×2 (09:36→19:56)
[2017-06-21] MEDS: CITALOPRAM HYDROBROMIDE 40 MG TAB PO SCH (09:36)
[2017-06-21] MEDS: NICOTINE 14 MG/24 HR PATCH T-DERMAL SCH (09:37)
[2017-06-21] MEDS: diphenhydrAMINE HCL 25 MG CAP PO SCH (09:45)
[2017-06-21] MEDS: SODIUM CHLORID 0.9% 500 ML INJ 500 ML IV SCH (09:45)
[2017-06-21] MEDS: ACETAMINOPHEN 325 MG TAB PO SCH (09:45)
[2017-06-21] MEDS: IMMUNE GLOBULIN INJ 20 GM in SYRINGE/BAG 1 EA IV SCH (11:00)
[2017-06-21] MEDS ORDERED: diphenhydrAMINE HCL 50 MG/ML VIAL IV PUSH PRN (11:00)
[2017-06-21] MEDS ORDERED: EPINEPHrine HCL (1:1000) 1 MG/ML VIAL OTHER PRN (11:00)
[2017-06-21] MEDS: D5W as prime bag (IVIG as secondary) IV SCH (11:00)
[2017-06-21] MEDS ORDERED: BACLOFEN 10 MG TAB PO ONE (13:45)
[2017-06-21] MEDS: MORPHINE SULFATE 4 MG/ML INJ IV PUSH PRN ×4 (13:52→23:03)
[2017-06-21] MEDS: SODIUM CHLOR 0.9% 1000 ML INJ 1,000 ML IV SCH (13:53)
[2017-06-21] MEDS ORDERED: EPOPROSTENOL NEB SOLUTION 50 NG/KG/MIN 100 ML NEB SCH ×2 (14:00)
--- NOTE | 2017-06-21 14:52 | HHI.PR ---
Review/Management Diagnosis/Plan: (1) Myasthenia gravis ICD Codes: G70.00 - Myasthenia gravis Status: Acute Plan: refractory myasthenia however compliance to meds has been poor at times due to inability to get refills per pt consideration of iv rituxamab in future if she fails imuran despite taking it compliantly ivig 2/5 today- didn't get dose yesterday recs neuro improved ivig x 2/5 today resp checks nif/fvc p.t./s.t d/w rn follow exam (2) Depression ICD Codes: F32.9 - Depression Status: Chronic (3) Migraine ICD Codes: G43.909 - Migraine Status: Chronic (4) Fibromyalgia ICD Codes: M79.7 - Fibromyalgia Status: Chronic Subjective Subjective Comments No acute events reported no dysphagia No headache No chest pain No dyspnea Active Medications Current Medications Medications (Trade) Dose Ordered Sig/Gómez Route Start Time Stop Time Status Last Admin (NS Flush) 2 ml UNSCH PRN IV FLUSH 06/19/17 19:15 (NS Flush) 2 ml BID IV FLUSH 06/19/17 21:00 06/21/17 09:36 (Zofran Inj) 4 mg Q6H PRN IVP 06/19/17 19:15 (Tylenol) 650 mg Q6H PRN PO 06/19/17 19:15 (Bonita-Colace) 1 tab BID PO 06/19/17 21:00 06/20/17 20:54 (Milk Of Magnesia Liq) 30 ml Q12H PRN PO 06/19/17 19:15 (Senokot) 17.2 mg Q12H PRN PO 06/19/17 19:15 (Dulcolax Supp) 10 mg DAILY PRN RECTAL 06/19/17 19:15 (Lactulose Liq) 30 ml DAILY PRN PO 06/19/17 19:15 (Xanax) 1 mg Q6H PO 06/19/17 21:00 06/21/17 13:52 (Elavil) 25 mg HS PO 06/19/17 21:00 06/20/17 20:54 (Imuran) 50 mg DAILY@18 PO 06/20/17 18:00 06/20/17 18:24 (CeleXA) 40 mg DAILY PO 06/20/17 09:00 06/21/17 09:36 ([place] 7.5-325 Mg) 1 tab Q6H PRN PO 06/19/17 19:15 06/20/17 10:17 (Heparin Inj) 5,000 units Q12HR SQ 06/19/17 21:00 06/19/17 21:07 (SoluMEDROL INJ) 60 mg Q12HR IV 06/20/17 09:45 06/21/17 09:36 Sodium Chloride 1,000 ml @ 75 mls/hr [id number] IV 06/20/17 10:00 06/21/17 13:53 (Imodium) 2 mg Q6H PRN PO 06/20/17 13:00 06/20/17 15:53 (Habitrol 14 Mg Patch.24 Hr) 1 patch DAILY T-DERMAL 06/20/17 14:00 06/21/17 09:37 ([place] 10-325 Mg) 1 tab Q4H PRN PO 06/20/17 13:00 06/21/17 10:37 Miscellaneous Information 1 DAILY T-DERMAL 06/21/17 09:00 06/21/17 09:00 Immune Globulin 20 gm/Syringe / Bag 200 ml @ 15.6 mls/hr Q24H IV 06/21/17 11:00 06/24/17 23:50 06/21/17 11:00 Sodium Chloride 500 ml @ 500 mls/hr Q24H IV 06/21/17 10:00 06/24/17 10:59 06/21/17 09:45 Dextrose 500 ml @ 30 mls/hr Q24H IV 06/21/17 11:00 06/25/17 03:39 06/21/17 11:00 (Benadryl) 25 mg Q24H PO 06/21/17 10:00 06/24/17 10:01 06/21/17 09:45 (Benadryl Inj) 50 mg UNSCH PRN IV PUSH 06/21/17 11:00 06/25/17 10:59 (Tylenol) 650 mg Q24H PO 06/21/17 10:00 06/24/17 10:01 06/21/17 09:45 (Adrenalin (1:1000) Inj) 0.3 mg Q10M PRN OTHER 06/21/17 11:00 06/25/17 10:59 (Morphine Inj) 2 mg Q3H PRN IV PUSH 06/21/17 13:45 06/21/17 13:52 (Mestinon) 120 mg TID@0600,1200,1800 PO 06/21/17 18:00 Allergies Allergies Coded Allergies penicillin G (Unverified Allergy, Severe, Anaphylaxis, 06/19/17) promethazine (Unverified Adverse Reaction, Severe, NAUSEOUS, 06/19/17) Review of Systems All other ROS: ROS reviewed as documented in chart Exam I&O / VS 06/21/17 06/21/17 06/22/17 15:00 23:00 07:00 Intake Total 800 ml Balance 800 ml IV Total 800 ml Vital Signs Date Time Temp Pulse Resp B/P (MAP) Pulse Ox O2 Delivery O2 Flow Rate FiO2 06/21/17 14:00 64 06/21/17 12:00 69 06/21/17 12:00 69 22 106/60 06/21/17 12:00 98.7 69 22 106/60 (75) 96 06/21/17 11:15 64 21 107/66 06/21/17 11:00 77 21 116/82 06/21/17 10:00 59 06/21/17 08:00 98.1 78 22 126/72 (90) 100 06/21/17 08:00 78 06/21/17 06:00 63 06/21/17 04:09 17 06/21/17 04:00 68 06/21/17 04:00 98.2 68 17 102/56 (71) 96 06/21/17 02:00 59 06/21/17 00:00 54 06/21/17 00:00 97.8 56 23 107/60 (76) 97 06/20/17 22:18 57 24 104/55 06/20/17 22:00 66 06/20/17 20:00 98.1 66 29 95/53 (67) 98 06/20/17 20:00 66 06/20/17 18:00 64 06/20/17 16:00 98.4 67 24 106/59 (75) 95 06/20/17 16:00 67 General: Alert and Oriented, No acute distress Eye: PERRL, EOMI, Normal conjuctiva Respiratory: Lungs CTA, Non-labored respirations Cardiology: Normal rate Musculoskeletal: ROM Neurologic: Alert, Oriented, Normal sensory, CN II-XII intact, Normal DTR's Psychiatric: Cooperative, Appropriate mood & affect, Normal judgement Exam Comments ox 3, no aphasia,speech almost normal, no dyspnea, looks more comfortable, able to complete sentences without difficulty, no accessory muscle use, ou 3-2mm, no ptosis, eomi, mild cushingoid appearance, minimal proximal fatiguable weakness, msr sym, no clonus, planterflexor Objective Micro and Labs Laboratory Tests Test 06/21/17 04:45 Thyroid Stimulating Hormone 3rd Gen 0.332 Artie Vizcarra MD Jun 21, 2017 14:52
--- NOTE | 2017-06-21 17:18 | HHI.PR ---
Subjective Remarks Patient still doing okay, saw Dr. Espino , he wants to keep her tonight in ICU Objective Vitals Vital Signs Date Time Temp Pulse Resp B/P (MAP) Pulse Ox O2 Delivery O2 Flow Rate FiO2 06/21/17 16:00 98.5 84 23 116/81 (93) 97 06/21/17 16:00 84 06/21/17 14:00 64 06/21/17 12:00 69 06/21/17 12:00 69 22 106/60 06/21/17 12:00 98.7 69 22 106/60 (75) 96 06/21/17 11:15 64 21 107/66 06/21/17 11:00 77 21 116/82 06/21/17 10:00 59 06/21/17 08:00 98.1 78 22 126/72 (90) 100 06/21/17 08:00 78 06/21/17 06:00 63 06/21/17 04:09 17 06/21/17 04:00 68 06/21/17 04:00 98.2 68 17 102/56 (71) 96 06/21/17 02:00 59 06/21/17 00:00 54 06/21/17 00:00 97.8 56 23 107/60 (76) 97 06/20/17 22:18 57 24 104/55 06/20/17 22:00 66 06/20/17 20:00 98.1 66 29 95/53 (67) 98 06/20/17 20:00 66 06/20/17 18:00 64 I/O 06/20/17 06/20/17 06/20/17 06/21/17 06/21/17 06/21/17 07:00 15:00 23:00 07:00 15:00 23:00 Intake Total 240 ml 720 ml 365 ml 800 ml Output Total 1350 ml Balance 240 ml 720 ml -985 ml 800 ml Intake Oral 240 ml 720 ml IV Total 365 ml 800 ml Output Urine Total 1350 ml # Voids 2 4 5 # Bowel Movements 0 0 Result Diagram: 06/20/17 0957 06/20/17 0937 Objective Remarks GENERAL: This is a well-nourished, well-developed patient, in no apparent distress. SKIN: No rashes, warm and dry HEAD: Atraumatic. Normocephalic. EYES: Pupils equal round and reactive. Extraocular motions intact. No scleral icterus. ENT: Nose without bleeding, or drainage, Airway patent. NECK: Trachea midline. Supple CARDIOVASCULAR: Regular rate and rhythm without murmurs, gallops, or rubs. RESPIRATORY: Fair air entry bilaterally. No wheezes, rales, or rhonchi. GASTROINTESTINAL: Abdomen soft, non-tender, nondistended. Positive bowel sounds MUSCULOSKELETAL: Extremities without clubbing, cyanosis, or edema. Pedal pulses appreciated NEUROLOGICAL: Awake and alert. Moves all extremity. Normal speech.no focal neurological deficit A/P Problem List: (1) Myasthenia gravis ICD Code: G70.00 - Myasthenia gravis Status: Acute (2) Right hip pain ICD Code: M25.551 - Pain in right hip Status: Acute (3) Tobacco abuse ICD Code: Z72.0 - Tobacco abuse Status: Chronic Assessment and Plan - Myasthenia Gravis: w/ Acute Flare, refractory likely in part due to Non- compliance w/ medications, no outpatient follow up. Appreciate neurology consult by Dr. Vizcarra, plan for IVIG doses number to be determined by neurology. Continue w/ home Prednisone 20mg qd. PT for eval/tx, continue monitoring and ICU , monitor for any respiratory compromise - Right Hip Pain: Chronic. Previous admit w/ MRI 06/05/17 showing avascular necrosis, , s/p eval by Ortho w/ plans for possible outpatient total hip replacement.continue w/ conservative management at this time, analgesics as needed. - Tobacco Abuse: Pt counselled. Ativan prn if needed. - DVT Prophylaxis: SCD/Teds. Miguel Ángel Solomon MD Jun 21, 2017 17:18
[2017-06-21] MEDS: azaTHIOprine 50 MG TAB PO SCH (17:33)
[2017-06-21] MEDS: AMITRIPTYLINE HCL 25 MG TAB PO SCH (19:56)
[2017-06-22] VITALS (13 sets, daily range): BP systolic 108–136; BP diastolic 58–77; PULSE 53–85; RESP 18–23; TEMP 97.9–98.3; O2SAT 95–98
[2017-06-22] MEDS: SODIUM CHLOR 0.9% 1000 ML INJ 1,000 ML IV SCH ×2 (02:00→20:44)
[2017-06-22] MEDS: ALPRAZolam 1 MG TAB PO SCH ×4 (03:49→20:32)
[2017-06-22] MEDS: ACETAMINOPHEN/HYDROcodone 325 MG/10 MG TAB PO PRN ×5 (03:49→22:30)
[2017-06-22] MEDS: PYRIDOSTIGMINE BROMIDE 60 MG TAB PO SCH ×3 (06:25→17:13)
[2017-06-22] MEDS: MORPHINE SULFATE 4 MG/ML INJ IV PUSH PRN ×2 (06:29→12:12)
[2017-06-22] MEDS: REMOVE OLD PATCH T-DERMAL SCH (09:00)
[2017-06-22] MEDS: DOCUSATE SODIUM 50 MG/SENNA 8.6 MG TAB PO SCH ×2 (09:00→20:33)
[2017-06-22] MEDS: HEPARIN SODIUM - SQ 10,000 UNITS/ML VIAL SQ SCH ×3 (09:00→20:42)
[2017-06-22] MEDS: methylPREDNISolone SOD SUCC 125 MG/2 ML VIAL IV SCH ×2 (09:02→20:33)
[2017-06-22] MEDS: NICOTINE 14 MG/24 HR PATCH T-DERMAL SCH (09:02)
[2017-06-22] MEDS: CITALOPRAM HYDROBROMIDE 40 MG TAB PO SCH (09:03)
[2017-06-22] MEDS: SODIUM CHLORIDE 0.9% FLUSH 10 ML FLUSH IV FLUSH SCH ×2 (09:04→20:33)
[2017-06-22] MEDS: diphenhydrAMINE HCL 25 MG CAP PO SCH (10:18)
[2017-06-22] MEDS: SODIUM CHLORID 0.9% 500 ML INJ 500 ML IV SCH (10:19)
[2017-06-22] MEDS: ACETAMINOPHEN 325 MG TAB PO SCH (10:19)
[2017-06-22] MEDS: D5W as prime bag (IVIG as secondary) IV SCH (11:00)
[2017-06-22] MEDS: IMMUNE GLOBULIN INJ 20 GM in SYRINGE/BAG 1 EA IV SCH (11:44)
[2017-06-22] MEDS: LOPERAMIDE HCL 2 MG CAP PO PRN (12:58)
--- NOTE | 2017-06-22 15:55 | HHI.PR ---
Subjective Remarks Patient doing well, she is getting transfused IVIG today, swelling improved as well as motor strength, possibly transfer to regular floor today for if okay with neuro Objective Vitals Vital Signs Date Time Temp Pulse Resp B/P (MAP) Pulse Ox O2 Delivery O2 Flow Rate FiO2 06/22/17 14:00 85 06/22/17 12:00 69 06/22/17 12:00 97.9 69 21 121/68 (85) 96 06/22/17 11:44 81 23 127/65 06/22/17 10:00 66 06/22/17 08:00 68 06/22/17 08:00 98.0 58 23 113/63 (80) 95 06/22/17 06:00 53 06/22/17 04:00 98.3 54 22 121/63 (82) 96 06/22/17 04:00 54 06/22/17 02:00 70 06/22/17 00:00 54 06/22/17 00:00 98.1 54 20 108/58 (75) 96 06/21/17 22:00 57 06/21/17 20:00 97.5 87 24 140/72 (94) 98 06/21/17 20:00 87 06/21/17 18:00 66 06/21/17 16:00 98.5 84 23 116/81 (93) 97 06/21/17 16:00 84 I/O 06/21/17 06/21/17 06/21/17 06/22/17 06/22/17 06/22/17 07:00 15:00 23:00 07:00 15:00 23:00 Intake Total 365 ml 800 ml 1560 ml 2033 ml 1548 ml Output Total 1350 ml 1325 ml Balance -985 ml 800 ml 1560 ml 2033 ml 223 ml Intake Oral 1560 ml 1180 ml 720 ml IV Total 365 ml 800 ml 853 ml 828 ml Output Urine Total 1350 ml 1325 ml # Voids 5 10 9 5 # Bowel Movements 0 0 2 2 Result Diagram: 06/20/1757 06/20/17 0937 Objective Remarks GENERAL: This is a well-nourished, well-developed patient, in no apparent distress. SKIN: No rashes, warm and dry HEAD: Atraumatic. Normocephalic. EYES: Pupils equal round and reactive. Extraocular motions intact. No scleral icterus. ENT: Nose without bleeding, or drainage, Airway patent. NECK: Trachea midline. Supple CARDIOVASCULAR: Regular rate and rhythm without murmurs, gallops, or rubs. RESPIRATORY: Fair air entry bilaterally. No wheezes, rales, or rhonchi. GASTROINTESTINAL: Abdomen soft, non-tender, nondistended. Positive bowel sounds MUSCULOSKELETAL: Extremities without clubbing, cyanosis, or edema. Pedal pulses appreciated NEUROLOGICAL: Awake and alert. Moves all extremity. Normal speech.no focal neurological deficit A/P Problem List: (1) Myasthenia gravis ICD Code: G70.00 - Myasthenia gravis Status: Acute (2) Right hip pain ICD Code: M25.551 - Pain in right hip Status: Acute (3) Tobacco abuse ICD Code: Z72.0 - Tobacco abuse Status: Chronic Assessment and Plan - Myasthenia Gravis: w/ Acute Flare, refractory likely in part due to Non- compliance w/ medications, no outpatient follow up. Appreciate neurology consult by Dr. Vizcarra, continue IVIG , doses number to be determined by neurology. Continue w/ home Prednisone 20mg qd. PT for eval/tx, transfer to [facility] floor if okay with neurology - Right Hip Pain: Chronic. Previous admit w/ MRI 06/05/17 showing avascular necrosis, , s/p eval by Ortho w/ plans for possible outpatient total hip replacement.continue w/ conservative management at this time, analgesics as needed. - Tobacco Abuse: Pt counselled. Ativan prn if needed. - DVT Prophylaxis: SCD/Teds. Miguel Ángel Solomon MD Jun 22, 2017 15:55
[2017-06-22] MEDS: azaTHIOprine 50 MG TAB PO SCH (17:12)
--- NOTE | 2017-06-22 19:21 | HHI.PR ---
Review/Management Diagnosis/Plan: (1) Myasthenia gravis ICD Codes: G70.00 - Myasthenia gravis Status: Acute Plan: refractory myasthenia however compliance to meds has been poor at times due to inability to get refills per pt consideration of iv rituximab in future if she fails imuran despite taking it compliantly ivig 2/5 today- didn't get dose yesterday recs neuro stable appreciate medical p.t. ivig x 3/5 today resp checks nif/fvc p.t./s.t d/w rn follow exam (2) Depression ICD Codes: F32.9 - Depression Status: Chronic (3) Migraine ICD Codes: G43.909 - Migraine Status: Chronic (4) Fibromyalgia ICD Codes: M79.7 - Fibromyalgia Status: Chronic Subjective Subjective Comments No acute events reported; felt a little weak in the legs edgar po, no dyspnea No headache No chest pain No dyspnea Active Medications Current Medications Medications (Trade) Dose Ordered Sig/Gómez Route Start Time Stop Time Status Last Admin (NS Flush) 2 ml UNSCH PRN IV FLUSH 06/19/17 19:15 (NS Flush) 2 ml BID IV FLUSH 06/19/17 21:00 06/22/17 09:04 (Zofran Inj) 4 mg Q6H PRN IVP 06/19/17 19:15 (Tylenol) 650 mg Q6H PRN PO 06/19/17 19:15 (Bonita-Colace) 1 tab BID PO 06/19/17 21:00 06/20/17 20:54 (Milk Of Magnesia Liq) 30 ml Q12H PRN PO 06/19/17 19:15 (Senokot) 17.2 mg Q12H PRN PO 06/19/17 19:15 (Dulcolax Supp) 10 mg DAILY PRN RECTAL 06/19/17 19:15 (Lactulose Liq) 30 ml DAILY PRN PO 06/19/17 19:15 (Xanax) 1 mg Q6H PO 06/19/17 21:00 06/22/17 14:15 (Elavil) 25 mg HS PO 06/19/17 21:00 06/21/17 19:56 (Imuran) 50 mg DAILY@18 PO 06/20/17 18:00 06/22/17 17:12 (CeleXA) 40 mg DAILY PO 06/20/17 09:00 06/22/17 09:03 ([place] 7.5-325 Mg) 1 tab Q6H PRN PO 06/19/17 19:15 06/20/17 10:17 (Heparin Inj) 5,000 units Q12HR SQ 06/19/17 21:00 06/19/17 21:07 (SoluMEDROL INJ) 60 mg Q12HR IV 06/20/17 09:45 06/22/17 09:02 Sodium Chloride 1,000 ml @ 75 mls/hr [id number] IV 06/20/17 10:00 06/22/17 02:00 (Imodium) 2 mg Q6H PRN PO 06/20/17 13:00 06/22/17 12:58 (Habitrol 14 Mg Patch.24 Hr) 1 patch DAILY T-DERMAL 06/20/17 14:00 06/22/17 09:02 ([place] 10-325 Mg) 1 tab Q4H PRN PO 06/20/17 13:00 06/22/17 18:38 Miscellaneous Information 1 DAILY T-DERMAL 06/21/17 09:00 06/22/17 09:00 Immune Globulin 20 gm/Syringe / Bag 200 ml @ 15.6 mls/hr Q24H IV 06/21/17 11:00 06/24/17 23:50 06/22/17 11:44 Sodium Chloride 500 ml @ 500 mls/hr Q24H IV 06/21/17 10:00 06/24/17 10:59 06/22/17 10:19 Dextrose 500 ml @ 30 mls/hr Q24H IV 06/21/17 11:00 06/25/17 03:39 06/22/17 11:00 (Benadryl) 25 mg Q24H PO 06/21/17 10:00 06/24/17 10:01 06/22/17 10:18 (Benadryl Inj) 50 mg UNSCH PRN IV PUSH 06/21/17 11:00 06/25/17 10:59 (Tylenol) 650 mg Q24H PO 06/21/17 10:00 06/24/17 10:01 06/22/17 10:19 (Adrenalin (1:1000) Inj) 0.3 mg Q10M PRN OTHER 06/21/17 11:00 06/25/17 10:59 (Mestinon) 120 mg TID@0600,1200,1800 PO 06/21/17 18:00 06/22/17 17:13 Allergies Allergies Coded Allergies penicillin G (Unverified Allergy, Severe, Anaphylaxis, 06/19/17) promethazine (Unverified Adverse Reaction, Severe, NAUSEOUS, 06/19/17) Review of Systems All other ROS: ROS reviewed as documented in chart Exam I&O / VS 06/22/17 06/22/17 06/23/17 15:00 23:00 07:00 Intake Total 1548 ml 1610 ml Output Total 1325 ml 275 ml Balance 223 ml 1335 ml Intake Oral 720 ml 1260 ml IV Total 828 ml 350 ml Output Urine Total 1325 ml 275 ml # Voids 5 2 # Bowel Movements 2 1 Vital Signs Date Time Temp Pulse Resp B/P (MAP) Pulse Ox O2 Delivery O2 Flow Rate FiO2 06/22/17 18:00 80 06/22/17 16:00 98.0 72 18 117/67 (84) 98 06/22/17 16:00 79 06/22/17 14:00 85 06/22/17 12:00 69 06/22/17 12:00 97.9 69 21 121/68 (85) 96 06/22/17 11:44 81 23 127/65 06/22/17 10:00 66 06/22/17 08:00 68 06/22/17 08:00 98.0 58 23 113/63 (80) 95 06/22/17 06:00 53 06/22/17 04:00 98.3 54 22 121/63 (82) 96 06/22/17 04:00 54 06/22/17 02:00 70 06/22/17 00:00 54 06/22/17 00:00 98.1 54 20 108/58 (75) 96 06/21/17 22:00 57 06/21/17 20:00 97.5 87 24 140/72 (94) 98 06/21/17 20:00 87 General: Alert and Oriented, No acute distress Eye: PERRL, EOMI, Normal conjuctiva Respiratory: Lungs CTA, Non-labored respirations Cardiology: Normal rate Musculoskeletal: ROM Neurologic: Alert, Oriented, Normal sensory, CN II-XII intact, Normal DTR's Psychiatric: Cooperative, Appropriate mood & affect, Normal judgement Exam Comments ox 3, no aphasia,speech normal, no dyspnea, looks more comfortable, able to complete sentences without difficulty, no accessory muscle use, ou 3-2mm, no ptosis, eomi, mild cushingoid appearance, minimal proximal fatiguable weakness, msr sym, no clonus, planterflexor Artie Vizcarra MD Jun 22, 2017 19:21
[2017-06-22] MEDS: AMITRIPTYLINE HCL 25 MG TAB PO SCH (20:32)
[2017-06-23] VITALS (7 sets, daily range): BP systolic 124–134; BP diastolic 74–83; PULSE 63–85; RESP 17–18; TEMP 97.5–98.1; O2SAT 96–98
[2017-06-23] MEDS: ALPRAZolam 1 MG TAB PO SCH ×4 (02:40→21:52)
[2017-06-23] MEDS: ACETAMINOPHEN/HYDROcodone 325 MG/10 MG TAB PO PRN ×6 (02:41→22:20)
[2017-06-23] MEDS: SODIUM CHLOR 0.9% 1000 ML INJ 1,000 ML IV SCH ×2 (04:40→17:01)
[2017-06-23] MEDS: PYRIDOSTIGMINE BROMIDE 60 MG TAB PO SCH ×3 (07:16→17:05)
--- NOTE | 2017-06-23 07:53 | HHI.PR ---
Review/Management Diagnosis/Plan: (1) Myasthenia gravis ICD Codes: G70.00 - Myasthenia gravis Status: Acute Plan: refractory myasthenia however compliance to meds has been poor at times due to inability to get refills per pt consideration of iv rituximab in future if she fails imuran despite taking it compliantly recs neuro stable appreciate medical service ivig x 4/5 today will switch to po steroids vit d/calcium supplementation please write script for 30 days for imuran, mestinon, prednisone. we will refill through our office emr system in f/u d/c planning after 5th tx tomorrow resp checks nif/fvc p.t./s.t (2) Depression ICD Codes: F32.9 - Depression Status: Chronic (3) Migraine ICD Codes: G43.909 - Migraine Status: Chronic (4) Fibromyalgia ICD Codes: M79.7 - Fibromyalgia Status: Chronic Subjective Subjective Comments No acute events reported No headache No chest pain No dyspnea Active Medications Current Medications Medications (Trade) Dose Ordered Sig/Gómez Route Start Time Stop Time Status Last Admin (NS Flush) 2 ml UNSCH PRN IV FLUSH 06/19/17 19:15 (NS Flush) 2 ml BID IV FLUSH 06/19/17 21:00 06/22/17 20:33 (Zofran Inj) 4 mg Q6H PRN IVP 06/19/17 19:15 (Tylenol) 650 mg Q6H PRN PO 06/19/17 19:15 (Bonita-Colace) 1 tab BID PO 06/19/17 21:00 06/20/17 20:54 (Milk Of Magnesia Liq) 30 ml Q12H PRN PO 06/19/17 19:15 (Senokot) 17.2 mg Q12H PRN PO 06/19/17 19:15 (Dulcolax Supp) 10 mg DAILY PRN RECTAL 06/19/17 19:15 (Lactulose Liq) 30 ml DAILY PRN PO 06/19/17 19:15 (Xanax) 1 mg Q6H PO 06/19/17 21:00 06/23/17 02:40 (Elavil) 25 mg HS PO 06/19/17 21:00 06/22/17 20:32 (Imuran) 50 mg DAILY@18 PO 06/20/17 18:00 06/22/17 17:12 (CeleXA) 40 mg DAILY PO 06/20/17 09:00 06/22/17 09:03 ([place] 7.5-325 Mg) 1 tab Q6H PRN PO 06/19/17 19:15 06/20/17 10:17 (Heparin Inj) 5,000 units Q12HR SQ 06/19/17 21:00 06/19/17 21:07 (SoluMEDROL INJ) 60 mg Q12HR IV 06/20/17 09:45 06/22/17 20:33 Sodium Chloride 1,000 ml @ 75 mls/hr [id number] IV 06/20/17 10:00 06/22/17 20:44 (Imodium) 2 mg Q6H PRN PO 06/20/17 13:00 06/22/17 12:58 (Habitrol 14 Mg Patch.24 Hr) 1 patch DAILY T-DERMAL 06/20/17 14:00 06/22/17 09:02 ([place] 10-325 Mg) 1 tab Q4H PRN PO 06/20/17 13:00 06/23/17 06:51 Miscellaneous Information 1 DAILY T-DERMAL 06/21/17 09:00 06/22/17 09:00 Immune Globulin 20 gm/Syringe / Bag 200 ml @ 15.6 mls/hr Q24H IV 06/21/17 11:00 06/24/17 23:50 06/22/17 11:44 Sodium Chloride 500 ml @ 500 mls/hr Q24H IV 06/21/17 10:00 06/24/17 10:59 06/22/17 10:19 Dextrose 500 ml @ 30 mls/hr Q24H IV 06/21/17 11:00 06/25/17 03:39 06/22/17 11:00 (Benadryl) 25 mg Q24H PO 06/21/17 10:00 06/24/17 10:01 06/22/17 10:18 (Benadryl Inj) 50 mg UNSCH PRN IV PUSH 06/21/17 11:00 06/25/17 10:59 (Tylenol) 650 mg Q24H PO 06/21/17 10:00 06/24/17 10:01 06/22/17 10:19 (Adrenalin (1:1000) Inj) 0.3 mg Q10M PRN OTHER 06/21/17 11:00 06/25/17 10:59 (Mestinon) 120 mg TID@0600,1200,1800 PO 06/21/17 18:00 06/23/17 07:16 Allergies Allergies Coded Allergies penicillin G (Unverified Allergy, Severe, Anaphylaxis, 06/19/17) promethazine (Unverified Adverse Reaction, Severe, NAUSEOUS, 06/19/17) Review of Systems All other ROS: ROS reviewed as documented in chart Exam I&O / VS Vital Signs Date Time Temp Pulse Resp B/P (MAP) Pulse Ox O2 Delivery O2 Flow Rate FiO2 06/23/17 04:00 97.5 64 18 124/74 (91) 97 06/23/17 00:00 98.0 63 18 132/74 (93) 97 06/22/17 22:30 98.2 63 18 136/77 (96) 97 06/22/17 22:00 76 06/22/17 20:00 98.1 65 21 123/65 (84) 96 06/22/17 20:00 80 06/22/17 19:38 16 06/22/17 18:00 80 06/22/17 16:00 98.0 72 18 117/67 (84) 98 06/22/17 16:00 79 06/22/17 14:00 85 06/22/17 12:00 69 06/22/17 12:00 97.9 69 21 121/68 (85) 96 06/22/17 11:44 81 23 127/65 06/22/17 10:00 66 06/22/17 08:00 68 06/22/17 08:00 98.0 58 23 113/63 (80) 95 General: Alert and Oriented, No acute distress Eye: PERRL, EOMI, Normal conjuctiva Respiratory: Lungs CTA, Non-labored respirations Cardiology: Normal rate Musculoskeletal: ROM Neurologic: Alert, Oriented, Normal sensory, CN II-XII intact, Normal DTR's Psychiatric: Cooperative, Appropriate mood & affect, Normal judgement Exam Comments ox 3, no aphasia,speech normal, no dyspnea, able to complete sentences without difficulty, no accessory muscle use, ou 3-2mm, no ptosis, eomi, mild cushingoid appearance, minimal proximal fatiguable weakness, msr sym, no clonus, planterflexor Artie Vizcarra MD Jun 23, 2017 07:52
[2017-06-23] MEDS: REMOVE OLD PATCH T-DERMAL SCH (08:24)
[2017-06-23] MEDS: SODIUM CHLORIDE 0.9% FLUSH 10 ML FLUSH IV FLUSH SCH ×2 (08:24→21:52)
[2017-06-23] MEDS: DOCUSATE SODIUM 50 MG/SENNA 8.6 MG TAB PO SCH ×2 (08:24→21:00)
[2017-06-23] MEDS: HEPARIN SODIUM - SQ 10,000 UNITS/ML VIAL SQ SCH ×2 (08:24→21:00)
[2017-06-23] MEDS: CITALOPRAM HYDROBROMIDE 40 MG TAB PO SCH (08:24)
[2017-06-23] MEDS: NICOTINE 14 MG/24 HR PATCH T-DERMAL SCH (08:24)
[2017-06-23] MEDS: LOPERAMIDE HCL 2 MG CAP PO PRN (08:30)
[2017-06-23] MEDS: predniSONE 10 MG TAB PO SCH (08:30)
[2017-06-23] MEDS: ACETAMINOPHEN 325 MG TAB PO SCH (10:02)
[2017-06-23] MEDS: SODIUM CHLORID 0.9% 500 ML INJ 500 ML IV SCH (10:02)
[2017-06-23] MEDS: diphenhydrAMINE HCL 25 MG CAP PO SCH (10:02)
[2017-06-23] MEDS: D5W as prime bag (IVIG as secondary) IV SCH (11:00)
[2017-06-23] MEDS: IMMUNE GLOBULIN INJ 20 GM in SYRINGE/BAG 1 EA IV SCH (11:23)
--- NOTE | 2017-06-23 14:55 | HHI.PR ---
Subjective Remarks Patient resting in bed, doing well on IVIG Breathing swallowing is okay She is complaining of losing hair I advised her about that she will need to do an outpatient workup Objective Vitals Vital Signs Date Time Temp Pulse Resp B/P (MAP) Pulse Ox O2 Delivery O2 Flow Rate FiO2 06/23/17 12:15 135/70 06/23/17 12:07 97.9 80 18 132/78 (96) 97 06/23/17 12:03 148/72 06/23/17 11:45 134/88 06/23/17 11:29 130/70 06/23/17 11:23 82 132/78 06/23/17 08:34 15 06/23/17 08:14 98.0 85 18 134/83 (100) 96 06/23/17 08:00 79 06/23/17 04:00 97.5 64 18 124/74 (91) 97 06/23/17 00:00 98.0 63 18 132/74 (93) 97 06/22/17 22:30 98.2 63 18 136/77 (96) 97 06/22/17 22:00 76 06/22/17 20:00 98.1 65 21 123/65 (84) 96 06/22/17 20:00 80 06/22/17 18:00 80 06/22/17 16:00 98.0 72 18 117/67 (84) 98 06/22/17 16:00 79 I/O 06/22/17 06/22/17 06/22/17 06/23/17 06/23/17 06/23/17 07:00 15:00 23:00 07:00 15:00 23:00 Intake Total 2033 ml 1548 ml 1610 ml 1006 ml Output Total 1325 ml 275 ml Balance 2033 ml 223 ml 1335 ml 1006 ml Intake Oral 1180 ml 720 ml 1260 ml IV Total 853 ml 828 ml 350 ml 1006 ml Output Urine Total 1325 ml 275 ml # Voids 9 5 2 6 # Bowel Movements 2 2 1 1 Result Diagram: 06/20/1757 06/20/1737 Objective Remarks GENERAL: This is a well-nourished, well-developed patient, in no apparent distress. SKIN: No rashes, warm and dry HEAD: Atraumatic. Normocephalic. EYES: Pupils equal round and reactive. Extraocular motions intact. No scleral icterus. ENT: Nose without bleeding, or drainage, Airway patent. NECK: Trachea midline. Supple CARDIOVASCULAR: Regular rate and rhythm without murmurs, gallops, or rubs. RESPIRATORY: Fair air entry bilaterally. No wheezes, rales, or rhonchi. GASTROINTESTINAL: Abdomen soft, non-tender, nondistended. Positive bowel sounds MUSCULOSKELETAL: Extremities without clubbing, cyanosis, or edema. Pedal pulses appreciated NEUROLOGICAL: Awake and alert. Moves all extremity. Normal speech.no focal neurological deficit A/P Problem List: (1) Myasthenia gravis ICD Code: G70.00 - Myasthenia gravis Status: Acute (2) Right hip pain ICD Code: M25.551 - Pain in right hip Status: Acute (3) Tobacco abuse ICD Code: Z72.0 - Tobacco abuse Status: Chronic Assessment and Plan 06/23: Today's #4 out of 5 IVIG, appreciate neurology follow up, hopefully tomorrow discharge home after last dose of IVIG, will provide 30 day supply of her .Mestinon, Imuran, prednisone own , and concern about excessive hair loss, she asked about her TSH was she is 0.33 mildly decreased, will check T4 and T3 - Myasthenia Gravis: w/ Acute Flare, refractory likely in part due to Non- compliance w/ medications, no outpatient follow up. Appreciate neurology consult by Dr. Vizcarra, continue IVIG , doses number to be determined by neurology. Continue w/ home Prednisone 20mg qd. PT for eval/tx, - Right Hip Pain: Chronic. Previous admit w/ MRI 06/05/17 showing avascular necrosis, , s/p eval by Ortho w/ plans for possible outpatient total hip replacement.continue w/ conservative management at this time, analgesics as needed. - Tobacco Abuse: Pt counselled. Ativan prn if needed. - DVT Prophylaxis: SCD/Teds. Miguel Ángel Solomon MD Jun 23, 2017 14:55
[2017-06-23] MEDS: azaTHIOprine 50 MG TAB PO SCH (17:02)
[2017-06-23] MEDS: AMITRIPTYLINE HCL 25 MG TAB PO SCH (21:52)
[2017-06-24 00:54] VITALS: BP 134/75; PULSE 85; RESP 17; TEMP 98.6; O2SAT 97
[2017-06-24] MEDS: ALPRAZolam 1 MG TAB PO SCH ×3 (03:19→14:44)
[2017-06-24] MEDS: ACETAMINOPHEN/HYDROcodone 325 MG/10 MG TAB PO PRN ×2 (03:20→07:39)
[2017-06-24 05:17] VITALS: BP 125/73; PULSE 90; RESP 16; TEMP 97.2; O2SAT 97
[2017-06-24 06:00] VITALS: PULSE 74
[2017-06-24] MEDS: PYRIDOSTIGMINE BROMIDE 60 MG TAB PO SCH ×2 (06:20→12:09)
[2017-06-24] MEDS: SODIUM CHLOR 0.9% 1000 ML INJ 1,000 ML IV SCH (07:20)
[2017-06-24 08:00] VITALS: BP 127/75; PULSE 88; RESP 16; TEMP 98.3; O2SAT 96
[2017-06-24] MEDS: REMOVE OLD PATCH T-DERMAL SCH (08:45)
[2017-06-24] MEDS: CITALOPRAM HYDROBROMIDE 40 MG TAB PO SCH (08:46)
[2017-06-24] MEDS: predniSONE 10 MG TAB PO SCH (08:46)
[2017-06-24] MEDS: NICOTINE 14 MG/24 HR PATCH T-DERMAL SCH (08:46)
[2017-06-24] MEDS: SODIUM CHLORIDE 0.9% FLUSH 10 ML FLUSH IV FLUSH SCH (08:48)
[2017-06-24] MEDS: HEPARIN SODIUM - SQ 10,000 UNITS/ML VIAL SQ SCH (08:48)
[2017-06-24] MEDS: DOCUSATE SODIUM 50 MG/SENNA 8.6 MG TAB PO SCH (08:48)
[2017-06-24 09:23] LABS: FREE T3 3.25 PG/ML (2.18-3.98); FREE T4 0.86 NG/DL (0.76-1.46)
[2017-06-24] MEDS: diphenhydrAMINE HCL 25 MG CAP PO SCH (10:08)
[2017-06-24] MEDS: ACETAMINOPHEN 325 MG TAB PO SCH (10:08)
[2017-06-24] MEDS: SODIUM CHLORID 0.9% 500 ML INJ 500 ML IV SCH (10:09)
[2017-06-24] MEDS: D5W as prime bag (IVIG as secondary) IV SCH (11:07)
[2017-06-24] MEDS: IMMUNE GLOBULIN INJ 20 GM in SYRINGE/BAG 1 EA IV SCH (11:10)
[2017-06-24] MEDS ORDERED: WHEEMIS3 (11:34)
[2017-06-24] MEDS ORDERED: PRED20 PO (11:34)
[2017-06-24] MEDS ORDERED: WALKER WHEELS/F1 MIS (11:34)
[2017-06-24] MEDS ORDERED: HYDR-3580 PO (11:34)
[2017-06-24] MEDS ORDERED: AZAT50 PO (11:34)
[2017-06-24] MEDS ORDERED: MEST60TA PO (11:34)
--- NOTE | 2017-06-24 11:36 | HHI.FF ---
Face to Face Verification Diagnosis: (1) Myasthenia exacerbation (2) Right hip pain Physical Therapy Order: Evaluate and Treat Occupational Therapy Order: Evaluate and Treat Home Health Nursing Order: Medical education I have seen patient Brionna Rodríguez on 06/24/17. My clinical findings support the need for the requested home health care services because: Ltd mobility - disease progression Deconditioned w/ increased weakness I certify that my clinical findings support that this patient is homebound because: Unsteady gait/balance Miguel Ángel Solomon MD Jun 24, 2017 11:36
[2017-06-24] MEDS: ACETAMINOPHEN/HYDROcodone 325 MG/7.5 MG TAB PO PRN (11:46)
[2017-06-24 12:00] VITALS: BP 120/77; PULSE 113; RESP 16; TEMP 97.7; O2SAT 98
--- NOTE | 2017-06-25 09:19 | HHI.DS ---
Discharge Summary Admission Date Jun 19, 2017 at 19:21 Discharge Date: Jun 24, 2017 Admitting Diagnosis Myasthenia Gravis Flare. (1) Myasthenia gravis ICD Code: G70.00 - Myasthenia gravis Status: Acute (2) Right hip pain ICD Code: M25.551 - Pain in right hip Status: Acute (3) Tobacco abuse ICD Code: Z72.0 - Tobacco abuse Status: Chronic Procedures None Brief History - From Admission This is a 22-year-old female with a PMH of Myasthenic Gravis, Fibromyalgia, Anxiety, Depression, Migraine, Right Hip Avascular Necrosis and Chronic Right Hip Pain who presented to the ER w/ complaints of left jaw pain and generalized weakness which she attributes to her typical MG flare. Multiple presentations/ admissions for same. 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 Complains of persistent right hip pain. Previously following w/ Neurology, however no outpatient follow up at this time, states she ran out of Mestinon,only on chronic steroid therapy w/ Prednisone 20mg po qd. S/p eval by Dr. Vizcarra in ER, plan is for IVIG. Significant Findings Laboratory Tests Test 06/24/17 07:40 PE at Discharge GENERAL: This is a well-nourished, well-developed patient, in no apparent distress. SKIN: No rashes, warm and dry HEAD: Atraumatic. Normocephalic. EYES: Pupils equal round and reactive. Extraocular motions intact. No scleral icterus. ENT: Nose without bleeding, or drainage, Airway patent. NECK: Trachea midline. Supple CARDIOVASCULAR: Regular rate and rhythm without murmurs, gallops, or rubs. RESPIRATORY: Fair air entry bilaterally. No wheezes, rales, or rhonchi. GASTROINTESTINAL: Abdomen soft, non-tender, nondistended. Positive bowel sounds MUSCULOSKELETAL: Extremities without clubbing, cyanosis, or edema. Pedal pulses appreciated NEUROLOGICAL: Awake and alert. Moves all extremity. Normal speech.no focal neurological deficit Hospital Course 42 years old female who has history of myasthenia gravis and right hip and due to femoral head and vascular necrosis due to chronic steroid came with flareup of the myasthenia gravis, neurology consulted started on IVIG 5 doses, patient improved, pain management provided, neurology recommended continuing prednisone , Imuran, Mistenon, prescription given for all for 1 month until patient follow up with neurology. Pt Condition on Discharge: Fair Discharge Disposition: Disch w/ Home Health Serv Discharge Time: <= 30 minutes Discharge Instructions DIET: Follow Instructions for: Heart Healthy Diet Speech Therapy-Diet Recommends: Regular Activities you can perform: See Additionl Instruction Other Activity Instructions: per PT recommendation New Medications: Walker with Front Wheels (Walker with Front Wheels) 1 Mis Mis EA .ROUTE DIRECTED, #1 0 Refills Wheelchair (Wheelchair) 1 Mis Mis EA .XX DIRECTED, #1 0 Refills Continued Medications: Alprazolam (Xanax) 1 Mg Tab 1 MG PO Q6H for Anxiety, TAB 0 Refills Amitriptyline (Amitriptyline) 25 Mg Tab 25 MG PO HS, TAB Azathioprine (Azathioprine) 50 Mg Tab 50 MG PO DAILY@18 for Muscle Spasm, #30 TAB (This prescription has been renewed) Citalopram (Citalopram) 40 Mg Tab 40 MG PO DAILY for Control Depression, #30 TAB 0 Refills Hydrocodone-Acetaminophen (Hydrocodone-Acetaminophen) 7.5-325 mg Tab 1 TAB PO Q6H PRN for PAIN SCALE 5 TO 10, #30 TAB (This prescription has been renewed) Prednisone (Prednisone) 20 Mg Tab 20 MG PO DAILY for mg, #30 TAB 0 Refills (This prescription has been renewed) Pyridostigmine (Mestinon) 60 Mg Tab 120 MG PO TIDAC for Manage Myastenia Gravis, #90 TAB 0 Refills (This prescription has been renewed) Sumatriptan (Imitrex) 50 Mg Tab 50 MG PO as needed PRN for HEADACHE, #10 TAB 0 Refills If a satisfactory response has not been obtained at 2 hours, a second dose may be administered Miguel Ángel Solomon MD Jun 25, 2017 09:19
== END 2017-06-24 15:05 | disposition home health service (06) | DRG 57 ==
LOC: NEPE 16:15 → NEDA 19:21 → N05A 21:49 → N03B 06-20 10:40 → N05A 06-22 22:06
PROVIDERS: ADMIT Hospitalist; ATTEND Hospitalist
PROC: 30243S1 Transfusion of Nonautologous Globulin into Central Vein, Percutaneous Approach (ICD-10-PCS; principal; 2017-06-19)
DX: G70.01 Myasthenia gravis with (acute) exacerbation (principal); M87.851 Other osteonecrosis, right femur; F32.9 Major depressive disorder, single episode, unspecified; M25.551 Pain in right hip; M79.7 Fibromyalgia; F41.9 Anxiety disorder, unspecified; G43.909 Migraine, unspecified, not intractable, without status migrainosus; Z79.52 Long term (current) use of systemic steroids; Z91.19 Patient's noncompliance with other medical treatment and regimen; F17.210 Nicotine dependence, cigarettes, uncomplicated
CPT/HCPCS: 36600; 80053; 82805; 84439; 84443; 84481; 85025; 94150; 99285; J1459; J1644; J2270; J2930; J7030; J7040; J7060; J7500; J7512

== ENCOUNTER 2017-07-28 09:18 | Inpatient (IN) | payer MEDICARE, MEDICAID ==
[~2017-07-28] VITALS: Ht 165.1 cm; Wt 55.2 kg
[~2017-07-28 09:18] MED LIST changes: -HYDR-3583 PO; +WHEEMIS3
[2017-07-28 09:19] VITALS: BP 141/87; PULSE 86; RESP 18; TEMP 97.9; O2SAT 98
[2017-07-28] MEDS ORDERED: PRED10 PO (09:37)
[2017-07-28 09:38] VITALS: BP 158/91; PULSE 95; RESP 18; O2SAT 100
[2017-07-28] MEDS ORDERED: SODIUM CHLOR 0.9% 1000 ML INJ 1,000 ML IV ONE (09:45)
[2017-07-28] MEDS ORDERED: SODIUM CHLORIDE 0.9% FLUSH 10 ML FLUSH IVF PRN (09:45)
--- NOTE | 2017-07-28 09:49 | PD ---
HPI Chief Complaint: General Weakness Time Seen by Provider: 09:39 Travel History International Travel<30 days: No Contact w/Intl Traveler<30days: No Traveled to known affect area: No History of Present Illness HPI Patient is a 42-year-old female with history of myasthenia gravis, presents to emergency room with complaints of myasthenia gravis flare up. Patient reports that since yesterday, she has increased vision changes to her right leg, overall general weakness and increased pain to her right hip. She reports that she has history of right hip avascular process was likely secondary to chronic steroid treatments. Patient reports that she is currently taking prednisone 15 mg daily as well as her Mestinon for her MG. She is following up with her neurologist Dr. Vizcarra for this. Reports that he recently saw in the office 2 weeks ago, reports that he decreased her prednisone from 20 mg to 15 mg, he also discontinued her Imuron treatment. Patient reports that symptoms today are wanting for her myasthenia gravis flareups. Patient with no chest pain or shortness breath at this time. No fevers or chills, patient with no other complaints. PFSH Past Medical History Hx Anticoagulant Therapy: No Anemia: Yes Arthritis: No Autoimmune Disease: Yes (MYASTHENA GRAVIS) Blood Disorders: No Anxiety: Yes Depression: Yes Heart Rhythm Problems: No Cancer: No Cardiovascular Problems: No High Cholesterol: No Chemotherapy: No Chest Pain: No Congestive Heart Failure: No Cerebrovascular Accident: No Cystic Fibrosis: No Diabetes: No Diminished Hearing: No Endocrine: No Gastrointestinal Disorders: No Genitourinary: No Headaches: Yes Hepatitis: No Hiatal Hernia: No Hypertension: No Immune Disorder: Yes (MYASTHENIA GRAVIS) Implanted Vascular Access Dvce: Yes (left chest) Musculoskeletal: Yes Neurologic: Yes (MYASTHENIA GRAVIS - Jul, 2013) Psychiatric: Yes (DEPRESSION, ANXIETY) Reproductive: No Respiratory: No (Intubated 02/24 coded) Immunizations Current: No Migraines: Yes Seizures: No Thyroid Disease: Yes (myasthenia gravis) Influenza Vaccination: No ?: Not : 2 Para: 2 Dilation and Curettage (D&C): Yes Tubal Ligation: Yes Past Surgical History Abdominal Surgery: No Body Medical Devices: LEFT IMPLANTED PORT Cardiac Surgery: No Ear Surgery: No Endocrine Surgery: Yes ( thymus removed) Eye Surgery: No Genitourinary Surgery: No Gynecologic Surgery: Yes (tubal ligation 2014) Hysterectomy: No (tubes removed) Neurologic Surgery: No Oral Surgery: Yes (EXTRACTIONS) Thoracic Surgery: No Tonsillectomy: Yes Other Surgery: Yes (tubal ligation Dec 2014/ POWER PORT TO LEFT CHEST) Social History Alcohol Use: No Tobacco Use: No (quit per pt) Substance Use: No Allergies-Medications (Allergen,Severity, Reaction): Coded Allergies: penicillin G (Unverified Allergy, Severe, Anaphylaxis, 07/28/17) promethazine (Unverified Adverse Reaction, Severe, NAUSEOUS, 07/28/17) Reported Meds & Prescriptions Reported Meds & Active Scripts Active Mestinon (Pyridostigmine [place]) 60 Mg Tab 120 Mg PO TIDAC Hydrocodone-Acetaminophen 7.5-325 mg Tab 1 Tab PO Q6H PRN Imitrex (Sumatriptan Succinate) 50 Mg Tab 50 Mg PO NEEDED PRN If a satisfactory response has not been obtained at 2 hours, a second dose may be administered Reported Prednisone 10 Mg Tab 15 Mg PO DAILY Xanax (Alprazolam) 1 Mg Tab 1 Mg PO Q6H Citalopram (Citalopram Hydrobromide) 40 Mg Tab 40 Mg PO DAILY Amitriptyline (Amitriptyline HCl) 25 Mg Tab 25 Mg PO HS Review of Systems General / Constitutional: No: Fever Eyes: Positive: Blurred Vision, No: Visual changes HENT: No: Headaches Cardiovascular: No: Chest Pain or Discomfort Respiratory: No: Shortness of Breath Gastrointestinal: No: Abdominal Pain Genitourinary: No: Dysuria Musculoskeletal: No: Pain Skin: No Rash Neurologic: Positive: Weakness, Other (vision changes) Psychiatric: No: Depression Endocrine: No: Polydipsia Hematologic/Lymphatic: No: Easy Bruising Physical Exam Narrative GENERAL: Moderate distress SKIN: Focused skin assessment warm/dry. HEAD: Atraumatic. Normocephalic. EYES: Pupils equal and round. No scleral icterus. No injection or drainage. ENT: No nasal bleeding or discharge. Mucous membranes pink and moist. NECK: Trachea midline. No JVD. CARDIOVASCULAR: Regular rate and rhythm. No murmur appreciated. RESPIRATORY: No accessory muscle use. Clear to auscultation. Breath sounds equal bilaterally. GASTROINTESTINAL: Abdomen soft, non-tender, nondistended. Hepatic and splenic margins not palpable. MUSCULOSKELETAL: No obvious deformities. No clubbing. No cyanosis. No edema. NEUROLOGICAL: Awake and alert. No obvious cranial nerve deficits. Motor grossly within normal limits. Normal speech. PSYCHIATRIC: Appropriate mood and affect; insight and judgment normal. Data Data Last Documented VS Vital Signs Date Time Temp Pulse Resp B/P (MAP) Pulse Ox O2 Delivery O2 Flow Rate FiO2 07/28/17 09:38 95 18 158/91 (113) 100 Room Air 07/28/17 09:19 97.9 Orders Orders Electrocardiogram (07/28/17 09:44) Basic Metabolic Panel (Bmp) (07/28/17 09:44) Complete Blood Count With Diff (07/28/17 09:44) Prothrombin Time / Inr (Pt) (07/28/17 09:44) Act Partial Throm Time (Ptt) (07/28/17 09:44) Ecg Monitoring (07/28/17 09:44) Iv Access Insert/Monitor (07/28/17 09:44) Oximetry (07/28/17 09:44) Sodium Chloride 0.9% Flush (Ns Flush) (07/28/17 09:45) Sodium Chlor 0.9% 1000 Ml Inj (Ns 1000 M (07/28/17 09:45) Ed Urine Pregnancytest Poc (07/28/17 09:44) Consult Neurology (07/28/17 ) Labs Laboratory Tests Test 07/28/17 10:00 White Blood Count 8.8 TH/MM3 Red Blood Count 4.14 MIL/MM3 Hemoglobin 11.3 GM/DL Hematocrit 33.5 % Mean Corpuscular Volume 80.9 FL Mean Corpuscular Hemoglobin 27.3 PG Mean Corpuscular Hemoglobin Concent 33.7 % Red Cell Distribution Width 19.5 % Platelet Count 429 TH/MM3 Mean Platelet Volume 7.9 FL Neutrophils (%) (Auto) 74.1 % Lymphocytes (%) (Auto) 16.6 % Monocytes (%) (Auto) 7.1 % Eosinophils (%) (Auto) 1.5 % Basophils (%) (Auto) 0.7 % Neutrophils # (Auto) 6.5 TH/MM3 Lymphocytes # (Auto) 1.5 TH/MM3 Monocytes # (Auto) 0.6 TH/MM3 Eosinophils # (Auto) 0.1 TH/MM3 Basophils # (Auto) 0.1 TH/MM3 CBC Comment DIFF FINAL Differential Comment MDM Medical Decision Making Medical Screen Exam Complete: Yes Emergency Medical Condition: Yes Medical Record Reviewed: Yes Interpretation(s) Vital Signs Date Time Temp Pulse Resp B/P (MAP) Pulse Ox O2 Delivery O2 Flow Rate FiO2 07/28/17 09:38 95 18 158/91 (113) 100 Room Air 07/28/17 09:19 97.9 86 18 141/87 (105) 98 Room Air Differential Diagnosis Differential includes myasthenia gravis, chronic avascular necrosis of the right femoral head Narrative Course Patient is a 42-year-old female who presents to emergency room for evaluation of myasthenia gravis exacerbation. Patient reports symptoms are typical for her normal MG exacerbation. Lab work ordered, call made to Dr. Funes Case reviewed with Dr. De La Fuente who request IVIG 0.4grams/kg IV over 8hours daily x 5 doses Jessy Varner DO Jul 28, 2017 09:49
[2017-07-28 10:15] LABS: AUTOMATED NEUTROPHIL # 6.5 TH/MM3 (1.8-7.7); BASOPHIL # 0.1 TH/MM3 (0-0.2); BASOPHIL % 0.7 % (0.0-2.0); EOSINOPHIL # 0.1 TH/MM3 (0-0.4); EOSINOPHIL % 1.5 % (0.0-4.0); HEMATOCRIT 33.5 % (35.0-46.0); HEMO FLAGS DIFF FINAL; LYMPH % 16.6 % (9.0-44.0); LYMPHOCYTE # 1.5 TH/MM3 (1.0-4.8); MEAN CELL VOLUME 80.9 FL (80.0-100.0); MEAN CORPUSCULAR HEMOGLOBIN 27.3 PG (27.0-34.0); MEAN CORPUSCULAR HGB CONC 33.7 % (32.0-36.0); MONO % 7.1 % (0.0-8.0); NEUT % 74.1 % (16.0-70.0); PLATELET COUNT 429 TH/MM3 (150-450); RED BLOOD COUNT 4.14 MIL/MM3 (4.00-5.30); RED CELL DISTRIBUTION WIDTH 19.5 % (11.6-17.2); WHITE BLOOD COUNT 8.8 TH/MM3 (4.0-11.0)
[2017-07-28] MEDS ORDERED: IMMUNE GLOBULIN IV STA (10:20)
[2017-07-28 10:21] LABS: APTT (PATIENT) 33.1 SEC (24.3-30.1); PROTHROMBIN TIME - PATIENT 11.4 SEC (9.8-11.6)
[2017-07-28 10:46] LABS: BICARBONATE 26.9 MEQ/L (21.0-32.0)
[2017-07-28 10:50] LABS: POTASSIUM 2.5 MEQ/L (3.5-5.1)
[2017-07-28] MEDS ORDERED: POTASSIUM CHLORIDE 10 MEQ CONTROLLED RELEASE TAB PO ONE ×2 (11:30→14:00)
--- NOTE | 2017-07-28 11:48 | HHI.HP ---
[facility] Primary Care Physician Non-Staff Admission Diagnosis Myastenia Gravis exacerbation Diagnoses: (1) Myasthenia gravis with exacerbation Diagnosis: Principal Chief Complaint: generalized weakness Travel History International Travel<30 Days: No Contact w/Intl Traveler <30 Da: No Traveled to Known Affected Are: No History of Present Illness patient is a 42 y/o female with history of myasthenia gravis who presented to ER with generalized weakness. she says that she was taken off Imuran and the dose of her prednisone was decreased a couple of weeks ago. she says that she started to feel weak yesterday which has been getting worse. this was associated with blurred vision. she's complaining of some pain to the right hip which she relates to her history of right hip avascular necrosis. otherwise she denies any chest pain, sob, abdominal pain. no history of fever. Review of Systems Constitutional: COMPLAINS OF: Fatigue, DENIES: Fever, Weight loss, Chills, Night Sweats Eyes: COMPLAINS OF: Blurred vision, DENIES: Diplopia, Vision loss, Double Vision Ears, nose, mouth, throat: DENIES: Tinnitus, Vertigo, Throat pain, Epistaxis Respiratory: DENIES: Apneas, Cough, Snoring, Wheezing, Hemoptysis, Sputum production, Shortness of breath Cardiovascular: DENIES: Chest pain, Palpitations, Syncope, Dyspnea on Exertion , PND, Lower Extremity Edema, Orthopnea, Claudication Gastrointestinal: DENIES: Abdominal pain, Black stools, Bloody stools, Constipation, Diarrhea, Nausea, Vomiting, Difficulty Swallowing, Anorexia Genitourinary: DENIES: Urinary frequency, Urgency, Hematuria, Dysuria Musculoskeletal: COMPLAINS OF: Joint pain (right hip), DENIES: Muscle aches, Stiffness, Joint Swelling Integumentary: DENIES: Rash Neurologic: DENIES: Abnormal gait, Headache, Localized weakness, Paresthesias, Seizures, Speech Problems, Tremor, Poor Balance Psychiatric: DENIES: Anxiety, Confusion, Mood changes, Depression, Hallucinations, Agitation, Suicidal Ideation, Homicidal Ideation, Delusions Past Family Social History Past Medical History myasthenia gravis avascular necrosis of the right hip Past Surgical History thymectomy tubal ligation port placement Reported Medications Mestinon (Pyridostigmine [place]) 60 Mg Tab 120 Mg PO TIDAC Hydrocodone-Acetaminophen 7.5-325 mg Tab 1 Tab PO Q6H PRN Imitrex (Sumatriptan Succinate) 50 Mg Tab 50 Mg PO NEEDED PRN If a satisfactory response has not been obtained at 2 hours, a second dose may be administered Reported Prednisone 10 Mg Tab 15 Mg PO DAILY Xanax (Alprazolam) 1 Mg Tab 1 Mg PO Q6H Citalopram (Citalopram Hydrobromide) 40 Mg Tab 40 Mg PO DAILY Amitriptyline (Amitriptyline HCl) 25 Mg Tab 25 Mg PO HS Allergies: Coded Allergies: penicillin G (Unverified Allergy, Severe, Anaphylaxis, 07/28/17) promethazine (Unverified Adverse Reaction, Severe, NAUSEOUS, 07/28/17) Active Ordered Medications Current Medications Sodium Chloride (NS Flush) 2 ml UNSCH PRN IVF FLUSH AFTER USING IV ACCESS; Start 07/28/17 at 09:45 Sodium Chloride 1,000 ml @ 999 mls/hr BOLUS ONCE IV ; Start 07/28/17 at 09:45 ; Stop 07/28/17 at 10:45; Status DC Immune Globulin (Privigen Inj) 20 gm ONCE STAT IV ; Start 07/28/17 at 10:20; Stop 07/28/17 at 10:23; Status DC Magnesium Sulfate/ Dextrose 100 ml @ 100 mls/hr Q1H IV ; Start 07/28/17 at 11: 30; Stop 07/28/17 at 13:29 Potassium Chloride (KCl) 30 meq ONCE ONCE PO ; Start 07/28/17 at 11:30; Stop 07/28/17 at 11:37; Status DC Acetaminophen (Tylenol) 650 mg ONCE ONCE PO ; Start 07/28/17 at 11:30; Stop 07/28/17 at 11:37; Status DC Potassium Chloride (KCl) 40 meq ONCE ONCE PO ; Start 07/28/17 at 14:00; Stop 07/28/17 at 14:01; Status UNV Heparin Sodium (Porcine) (Heparin Inj) 5,000 units Q12HR SQ ; Start 07/28/17 at 21:00; Status UNV Amitriptyline HCl (Elavil) 25 mg HS PO ; Start 07/28/17 at 21:00; Status UNV Citalopram Hydrobromide (CeleXA) 40 mg DAILY PO ; Start 07/29/17 at 09:00; Status UNV Acetaminophen/ Hydrocodone Bitart ([place] 7.5-325 Mg) 1 tab Q6H PRN PO PAIN SCALE 5 TO 10; Start 07/28/17 at 11:45; Status UNV Prednisone (Deltasone) 15 mg DAILY PO ; Start 07/29/17 at 09:00; Status UNV Pyridostigmine [place] (Mestinon) 120 mg TIDAC PO ; Start 07/28/17 at 12:00; Status UNV Family History pancreatic cancer in father. Social History doesn't drink. quit smoking recently. Physical Exam Vital Signs Vital Signs Date Time Temp Pulse Resp B/P (MAP) Pulse Ox O2 Delivery O2 Flow Rate FiO2 07/28/17 09:38 95 18 158/91 (113) 100 Room Air 07/28/17 09:19 97.9 86 18 141/87 (105) 98 Room Air Physical Exam GENERAL: This is a well-nourished, well-developed patient, in no apparent distress. SKIN: No rashes, ecchymoses or lesions. Cool and dry. HEAD: Atraumatic. Normocephalic. No temporal or scalp tenderness. EYES: Pupils equal round and reactive. Extraocular motions intact. No scleral icterus. No injection or drainage. ENT: Nose without bleeding, purulent drainage or septal hematoma. Throat without erythema, tonsillar hypertrophy or exudate. Uvula midline. Airway patent. NECK: Trachea midline. No JVD or lymphadenopathy. Supple, nontender, no meningeal signs. CARDIOVASCULAR: Regular rate and rhythm without murmurs, gallops, or rubs. RESPIRATORY: Clear to auscultation. Breath sounds equal bilaterally. No wheezes , rales, or rhonchi. GASTROINTESTINAL: Abdomen soft, non-tender, nondistended. No hepato-splenomegaly , or palpable masses. No guarding. MUSCULOSKELETAL: Extremities without clubbing, cyanosis, or edema. No joint tenderness, effusion, or edema noted. No calf tenderness. Negative Homans sign bilaterally. NEUROLOGICAL: Awake and alert. Cranial nerves II through XII intact. Motor and sensory grossly within normal limits. Five out of 5 muscle strength in all muscle groups. Normal speech. Laboratory Laboratory Tests Test 07/28/17 10:00 White Blood Count 8.8 Red Blood Count 4.14 Hemoglobin 11.3 Hematocrit 33.5 Mean Corpuscular Volume 80.9 Mean Corpuscular Hemoglobin 27.3 Mean Corpuscular Hemoglobin Concent 33.7 Red Cell Distribution Width 19.5 Platelet Count 429 Mean Platelet Volume 7.9 Neutrophils (%) (Auto) 74.1 Lymphocytes (%) (Auto) 16.6 Monocytes (%) (Auto) 7.1 Eosinophils (%) (Auto) 1.5 Basophils (%) (Auto) 0.7 Neutrophils # (Auto) 6.5 Lymphocytes # (Auto) 1.5 Monocytes # (Auto) 0.6 Eosinophils # (Auto) 0.1 Basophils # (Auto) 0.1 CBC Comment DIFF FINAL Differential Comment Prothrombin Time 11.4 Prothromb Time International Ratio 1.0 Activated Partial Thromboplast Time 33.1 Blood Urea Nitrogen 9 Creatinine 1.09 Random Glucose 139 Calcium Level 8.7 Sodium Level 136 Potassium Level 2.5 Chloride Level 108 Carbon Dioxide Level 26.9 Anion Gap 1 Estimat Glomerular Filtration Rate 55 Result Diagram: 07/28/17 1000 07/28/17 1000 Caprini VTE Risk Assessment Caprini VTE Risk Assessment: Mod/High Risk (score >= 2) Caprini Risk Assessment Model Point Value = 1 Point Value = 2 Point Value = 3 Point Value = 5 Age 41-60 Minor surgery BMI > 25 kg/m2 Swollen legs Varicose veins or History of unexplained or recurrent spontaneous Oral contraceptives or hormone replacement Sepsis (< 1 month) Serious lung disease, including pneumonia (< 1 month) Abnormal pulmonary function Acute myocardial infarction Congestive heart failure (< 1 month) History of inflammatory bowel disease Medical patient at bed rest Age 61-74 Arthroscopic surgery Major open surgery (> 45 min) Laparoscopic surgery (> 45 min) Malignancy Confined to bed (> 72 hours) Immobilizing plaster cast Central venous access Age >= 75 History of VTE Family history of VTE Factor V Leiden Prothrombin [id number] Lupus anticoagulant Anticardiolipin antibodies Elevated serum homocysteine Heparin-induced thrombocytopenia Other congenital or acquired thrombophilia Stroke (< 1 month) Elective arthroplasty Hip, pelvis, or leg fracture Acute spinal cord injury (< 1 month) Prophylaxis Regimen Total Risk Factor Score Risk Level Prophylaxis Regimen 0-1 Low Early ambulation 2 Moderate Order ONE of the following: *Sequential Compression Device (SCD) *Heparin 5000 units SQ BID 3-4 Higher Order ONE of the following medications: *Heparin 5000 units SQ TID *Enoxaparin/Lovenox 40 mg SQ daily (WT < 150 kg, CrCl > 30 mL/min) *Enoxaparin/Lovenox 30 mg SQ daily (WT < 150 kg, CrCl > 10-29 mL/min) *Enoxaparin/Lovenox 30 mg SQ BID (WT < 150 kg, CrCl > 30 mL/min) AND/OR *Sequential Compression Device (SCD) 5 or more Highest Order ONE of the following medications: *Heparin 5000 units SQ TID (Preferred with Epidurals) *Enoxaparin/Lovenox 40 mg SQ daily (WT < 150 kg, CrCl > 30 mL/min) *Enoxaparin/Lovenox 30 mg SQ daily (WT < 150 kg, CrCl > 10-29 mL/min) *Enoxaparin/Lovenox 30 mg SQ BID (WT < 150 kg, CrCl > 30 mL/min) AND *Sequential Compression Device (SCD) Assessment and Plan Assessment and Plan A/P - myasthenia gravis exacerbation received IVIG in ER- resume her pyridostigmine and prednisone- neurology consulted. consult PT. -hypokalemia; will replace and monitor. -avascular necrosis of the right hip- continue with pain control. -DVT prophylaxis with subq Heparin Discussed Condition With ER physician and the patient. Physician Certification 2 Midnight Certification Type: Admission for Inpatient Services Order for Inpatient Services The services are ordered in accordance with Medicare regulations or non- Medicare payer requirements, as applicable. In the case of services not specified as inpatient-only, they are appropriately provided as inpatient services in accordance with the 2-midnight benchmark. Estimated LOS (days): 5 days is the estimated time the patient will need to remain in the hospital, assuming treatment plan goals are met and no additional complications. Post-Hospital Plan: Not yet determined Physician Certification 2 Midnight Certification Type: Admission for Inpatient Services Order for Inpatient Services The services are ordered in accordance with Medicare regulations or non- Medicare payer requirements, as applicable. In the case of services not specified as inpatient-only, they are appropriately provided as inpatient services in accordance with the 2-midnight benchmark. Estimated LOS (days): 5 days is the estimated time the patient will need to remain in the hospital, assuming treatment plan goals are met and no additional complications. Post-Hospital Plan: Not yet determined Shasha De Souza MD Jul 28, 2017 11:48
[2017-07-28] MEDS ORDERED: MORPHINE SULFATE 2 MG/ML INJ IV PUSH ONE (12:00)
[2017-07-28] MEDS: MAGNESIUM SULFATE 1 GM PREMIX 100 ML IV SCH ×2 (12:06→13:43)
[2017-07-28] MEDS: ACETAMINOPHEN 325 MG TAB PO ONE ×2 (12:06→13:36)
[2017-07-28 12:56] LABS: BACTERIA, URINE OCC /hpf; BLOOD, URINE MOD (NEG); GLUCOSE,URINE NEG (NEG); HYALINE CAST, URINE 1 /lpf (RARE); KETONE, URINE NEG (NEG); NITRITE,URINE NEG (NEG); SQUAMOUS EPITHELIAL CELL URINE 11 /hpf (0-5); TRANSITIONAL EPI CELLS, URINE <1 /hpf; URINE COLOR YELLOW (YELLW/STRAW); WHITE BLOOD CELL CAST, URINE 1 /lpf
[2017-07-28 12:58] LABS: COMMENT (UR) CULTURE INDICATED; CULTURE IF INDICATED CULTURE INDICATED
[2017-07-28] MEDS: diphenhydrAMINE HCL 25 MG CAP PO PRN (13:35)
[2017-07-28 13:43] VITALS: BP 128/77; PULSE 64; RESP 16; O2SAT 100
[2017-07-28] MEDS: PYRIDOSTIGMINE BROMIDE 60 MG TAB PO SCH ×2 (14:28→17:08)
[2017-07-28] MEDS ORDERED: NS 500 ML Pre-hydration IV SCH (14:30)
[2017-07-28] MEDS ORDERED: EPINEPHRINE HCL (1:1000) 1 MG/ML AMP Reaction Med OTHER PRN (14:30)
[2017-07-28] MEDS ORDERED: DIPHENHYDRAMINE HCL 50 MG/ML VIAL Reaction Med IV PUSH PRN (14:30)
[2017-07-28] MEDS: ACETAMINOPHEN/HYDROcodone 325 MG/7.5 MG TAB PO PRN ×2 (14:57→21:36)
[2017-07-28] MEDS ORDERED: D5W as prime bag (IVIG as secondary) IV SCH (15:00)
[2017-07-28] MEDS ORDERED: IMMUNE GLOBULIN INJ 20 GM in SYRINGE/BAG 1 EA IV SCH (15:00)
[2017-07-28 15:01] VITALS: BP 123/77; PULSE 60; RESP 16; O2SAT 99
[2017-07-28 15:41] VITALS: BP 147/73; PULSE 65; RESP 20; TEMP 98.2; O2SAT 100
[2017-07-28] MEDS: ALPRAZolam 1 MG TAB PO PRN ×2 (17:15→23:08)
--- NOTE | 2017-07-28 20:29 | MB ---
cc: ANN PERDOMO M.D. DATE OF CONSULTATION 07/28/17 REASON FOR CONSULTATION Myasthenia gravis exacerbation. HISTORY OF PRESENT ILLNESS Ms. Rodríguez is a very pleasant 42-year-old woman well-known to me with a diagnosis of myasthenia gravis. She is status post thymectomy. She now presents with a several-day history of progressive weakness, double vision and swallowing difficulty. PAST MEDICAL HISTORY Remarkable for myasthenia gravis. History of thymectomy. History of degenerative hip disease. Avascular necrosis of the hip. MEDICATIONS At home were: 1. Prednisone 15 milligrams daily. 2. Mestinon 120 milligrams four times a day. 3. In the past was on Imuran which she stopped [id number] weeks ago due to alopecia. Other medications are: 4. Hydrocodone. 5. Imitrex as needed. 6. Xanax. 7. Citalopram. 8. Elavil. NEUROLOGIC EXAMINATION VITAL SIGNS: Blood pressure is 147/73, pulse 65, respirations 20, temperature 98 degrees. NEURO: Higher cortical functions normal. 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 There is minimal ptosis. 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 She has mild jaw weakness of 4+/5. Neck flexors are 4+/5. She has got 4/5 strength proximally in both upper and lower extremities. Reflexes are 2+ symmetric with no Babinski sign present. LABORATORY DATA White count is 8800, hemoglobin 11.3, hematocrit 33.5%, platelet count of 429,000. PT 11.4, APTT 33.1. Sodium 136, potassium 2.5, chloride 108, CO2 27, the BUN is 9, creatinine 1.09, GFR is 55. IMPRESSION Myasthenia gravis exacerbation. RECOMMENDATIONS IVIG 0.4 gm/kg daily for five doses. Continue the current dose of prednisone and Mestinon. MD BOBBY Lugo/JONAH /5:49 PM /8:17 PM
[2017-07-28 20:41] VITALS: BP 126/69; PULSE 65; RESP 16; TEMP 98.1; O2SAT 97
[2017-07-28] MEDS: HEPARIN SODIUM - SQ 10,000 UNITS/ML VIAL SQ SCH (21:00)
[2017-07-28] MEDS: AMITRIPTYLINE HCL 25 MG TAB PO SCH (21:36)
[2017-07-28] MEDS ORDERED: ALTEPLASE RECOMBINANT 2 MG VIAL INTRACATH PRN (23:15)
[2017-07-29] VITALS (8 sets, daily range): BP systolic 100–120; BP diastolic 56–68; PULSE 58–70; RESP 16–20; TEMP 97.4–98.2; O2SAT 95–100
[2017-07-29] MEDS ORDERED: MORPHINE SULFATE 2 MG/ML INJ IV ONE (03:00)
[2017-07-29] MEDS: ACETAMINOPHEN/HYDROcodone 325 MG/7.5 MG TAB PO PRN (04:10)
[2017-07-29] MEDS: ALPRAZolam 1 MG TAB PO PRN ×3 (05:17→18:09)
[2017-07-29 06:17] LABS: BICARBONATE 29.3 MEQ/L (21.0-32.0); POTASSIUM 3.7 MEQ/L (3.5-5.1)
[2017-07-29] MEDS: PYRIDOSTIGMINE BROMIDE 60 MG TAB PO SCH ×3 (07:03→16:50)
[2017-07-29] MEDS: HEPARIN SODIUM - SQ 10,000 UNITS/ML VIAL SQ SCH ×2 (09:00→21:00)
[2017-07-29] MEDS: predniSONE 5 MG TAB PO SCH (09:43)
[2017-07-29] MEDS: CITALOPRAM HYDROBROMIDE 40 MG TAB PO SCH (09:43)
--- NOTE | 2017-07-29 11:05 | HHI.PR ---
Subjective Remarks f/u; myasthenia gravis exacerbation in no acute distress. still with generalized weakness but slightly better today. complaining of pain to the right hip with no significant improvement with the pain meds. d/w the RN. Objective Vitals Vital Signs Date Time Temp Pulse Resp B/P (MAP) Pulse Ox O2 Delivery O2 Flow Rate FiO2 07/29/17 08:00 98.1 69 20 113/67 (82) 99 07/29/17 05:22 97.9 70 16 109/63 (78) 95 07/29/17 00:20 98.2 70 16 112/57 (75) 98 07/28/17 20:41 98.1 65 16 126/69 (88) 97 07/28/17 15:41 98.2 65 20 147/73 (97) 100 07/28/17 15:20 07/28/17 15:01 60 16 123/77 (92) 99 Room Air 07/28/17 14:47 17 07/28/17 14:47 17 07/28/17 14:28 63 16 128/77 07/28/17 13:43 64 16 128/77 (94) 100 Room Air I/O 07/28/17 07/28/17 07/28/17 07/29/17 07/29/17 07/29/17 07:00 15:00 23:00 07:00 15:00 23:00 Intake Total 364 ml Balance 364 ml Intake IV Total 364 ml Result Diagram: 07/28/17 1000 07/29/17 0530 Objective Remarks GENERAL: This is a well-nourished, well-developed patient, in no apparent distress. CARDIOVASCULAR: Regular rate and regular rhythm without murmurs, gallops, or rubs. RESPIRATORY: Clear to auscultation. Breath sounds equal bilaterally. No wheezes , rales, or rhonchi. GASTROINTESTINAL: Abdomen soft, non-tender, nondistended. Normal, active bowel sounds MUSCULOSKELETAL: Extremities without clubbing, cyanosis, or edema. NEURO: Alert & Oriented x4 to person, place, time, situation. Moves all ext x4 Medications and IVs Current Medications Sodium Chloride (NS Flush) 2 ml UNSCH PRN IVF FLUSH AFTER USING IV ACCESS; Start 07/28/17 at 09:45 Sodium Chloride 1,000 ml @ 999 mls/hr BOLUS ONCE IV Last administered on 12:06; Start 07/28/17 at 09:45; Stop 07/28/17 at 10:45; Status DC Immune Globulin (Privigen Inj) 20 gm ONCE STAT IV ; Start 07/28/17 at 10:20; Stop 07/28/17 at 10:21; Status Cancel Magnesium Sulfate/ Dextrose 100 ml @ 100 mls/hr Q1H IV Last administered on 13:43; Start 07/28/17 at 11:30; Stop 07/28/17 at 13:29; Status DC Potassium Chloride (KCl) 30 meq ONCE ONCE PO Last administered on 07/28/17 12:05; Start 07/28/17 at 11:30; Stop 07/28/17 at 11:37; Status DC Acetaminophen (Tylenol) 650 mg ONCE ONCE PO Last administered on 07/28/17 13 :36; Start 07/28/17 at 11:30; Stop 07/28/17 at 11:37; Status DC Potassium Chloride (KCl) 40 meq ONCE ONCE PO Last administered on 07/28/17 21:36; Start 07/28/17 at 14:00; Stop 07/28/17 at 14:01; Status DC Heparin Sodium (Porcine) (Heparin Inj) 5,000 units Q12HR SQ ; Start 07/28/17 at 21:00 Amitriptyline HCl (Elavil) 25 mg HS PO Last administered on 07/28/17 21:36; Start 07/28/17 at 21:00 Citalopram Hydrobromide (CeleXA) 40 mg DAILY PO Last administered on 09:43; Start 07/29/17 at 09:00 Acetaminophen/ Hydrocodone Bitart ([place] 7.5-325 Mg) 1 tab Q6H PRN PO PAIN SCALE 5 TO 10 Last administered on 07/29/17 04:10; Start 07/28/17 at 11:45 Prednisone (Deltasone) 15 mg DAILY PO Last administered on 07/29/17 09:43; Start 07/29/17 at 09:00 Pyridostigmine [place] (Mestinon) 120 mg TIDAC PO Last administered on 07:03; Start 07/28/17 at 12:00 Morphine Sulfate (Morphine Inj) 2 mg ONCE ONCE IV PUSH Last administered on 12:11; Start 07/28/17 at 12:00; Stop 07/28/17 at 12:01; Status DC Diphenhydramine HCl (Benadryl) 25 mg Q6H PRN PO ITCHING Last administered on 13:35; Start 07/28/17 at 13:00 Sodium Chloride 500 ml @ 500 mls/hr Q24H IV Last administered on 07/28/17 14 :43; Start 07/28/17 at 14:30; Stop 07/28/17 at 15:29; Status DC Immune Globulin 20 gm/Syringe / Bag 200 ml @ 15 mls/hr Q24H IV Last administered on 07/28/17 14:28; Start 07/28/17 at 15:00; Stop 07/29/17 at 04 :19; Status DC Dextrose 500 ml @ 30 mls/hr Q24H IV Last administered on 07/28/17 14:42; Start 07/28/17 at 15:00; Stop 07/29/17 at 07:39; Status DC Diphenhydramine HCl (Benadryl Inj) 50 mg UNSCH PRN IV PUSH ALLERGIC REACTION; Start 07/28/17 at 14:30; Stop 07/29/17 at 14:29 Epinephrine HCl (Adrenalin (1:1000) Inj) 0.3 mg Q10M PRN OTHER ANAPHYLACTIC REACTION; Start 07/28/17 at 14:30; Stop 07/29/17 at 14:29 Alprazolam (Xanax) 1 mg Q6H PRN PO ANXIETY Last administered on 07/29/17 05: 17; Start 07/28/17 at 15:45 Alteplase, Recombinant (Cathflo Activase Inj) 2 mg Q2H PRN INTRACATH catheter flush for blockage Last administered on 07/28/17 23:21; Start 07/28/17 at 23: 15; Stop 07/29/17 at 06:00; Status DC Morphine Sulfate (Morphine Inj) 2 mg ONCE ONCE IV Last administered on 02:51; Start 07/29/17 at 03:00; Stop 07/29/17 at 03:01; Status DC A/P Problem List: (1) Myasthenia gravis with exacerbation ICD Code: G70.01 - Myasthenia gravis with exacerbation Status: Acute Assessment and Plan A/P - myasthenia gravis exacerbation continue IVIG ( d/w the pharmacy to resume IVIG) - resumed her pyridostigmine and prednisone- neurology consult appreciated. consulted PT. -possible UTI; start on Cipro and follow the culture. -hypokalemia; replaced. -avascular necrosis of the right hip- continue with pain control; will increase norco and start on IV dialudid for breakthrough pain. -DVT prophylaxis with subq Heparin Shasha De Souza MD Jul 29, 2017 11:05
--- NOTE | 2017-07-29 11:28 | EKG ---
Date Performed: 07/28/2017 Time Performed: 13:42:57 PTAGE: 42 years EKG: Sinus rhythm POSSIBLE RIGHT ATRIAL ENLARGEMENT LEFT ATRIAL ENLARGEMENT BORDERLINE RIGHT AXIS DEVIATION MINIMAL ST DEPRESSION ABNORMAL ECG Compared to prior tracing no significant change PREVIOUS TRACING : 04/20/2017 12.17 DOCTOR: Anthony Oro Interpretating Date/Time 07/29/2017 11:26:25
[2017-07-29] MEDS: ACETAMINOPHEN/HYDROcodone 325 MG/10 MG TAB PO PRN ×3 (11:29→20:35)
[2017-07-29] MEDS: CIPROFLOXACIN 400 MG PREMIX 200 ML IV SCH (11:43)
[2017-07-29] MEDS: NS 500 ML Pre-hydration IV SCH (14:00)
[2017-07-29] MEDS ORDERED: EPINEPHRINE HCL (1:1000) 1 MG/ML AMP Reaction Med OTHER PRN (15:00)
[2017-07-29] MEDS: D5W as prime bag (IVIG as secondary) IV SCH (15:00)
[2017-07-29] MEDS ORDERED: DIPHENHYDRAMINE HCL 50 MG/ML VIAL Reaction Med IV PUSH PRN (15:00)
[2017-07-29] MEDS: IMMUNE GLOBULIN INJ 20 GM in SYRINGE/BAG 1 EA IV SCH (16:25)
[2017-07-29] MEDS: AMITRIPTYLINE HCL 25 MG TAB PO SCH (20:33)
[2017-07-30] MEDS: CIPROFLOXACIN 400 MG PREMIX 200 ML IV SCH ×3 (00:25→22:01)
[2017-07-30] MEDS: ACETAMINOPHEN/HYDROcodone 325 MG/10 MG TAB PO PRN ×6 (00:48→20:22)
[2017-07-30] MEDS: ALPRAZolam 1 MG TAB PO PRN ×4 (00:48→20:21)
[2017-07-30 05:07] VITALS: BP 118/66; PULSE 64; RESP 18; TEMP 97.4; O2SAT 97
[2017-07-30] MEDS: PYRIDOSTIGMINE BROMIDE 60 MG TAB PO SCH ×3 (07:17→15:58)
[2017-07-30 07:55] VITALS: BP 129/80; PULSE 64; RESP 20; TEMP 98; O2SAT 99
--- NOTE | 2017-07-30 08:30 | HHI.FF ---
Face to Face Verification Diagnosis: (1) Myasthenia gravis Physical Therapy Order: Evaluate and Treat Occupational Therapy Order: Evaluate and Treat I have seen patient Brionna Rodríguez on 07/30/17. My clinical findings support the need for the requested home health care services because: Ltd mobility - disease progression I certify that my clinical findings support that this patient is homebound because: Unsteady gait/balance Shasha De Souza MD Jul 30, 2017 08:30
--- NOTE | 2017-07-30 08:30 | HHI.PR ---
Subjective Remarks f/u; myasthenia gravis exacerbation in no acute distress. her hip pain slightly better. still with generalized weakness but slightly better today. Objective Vitals Vital Signs Date Time Temp Pulse Resp B/P (MAP) Pulse Ox O2 Delivery O2 Flow Rate FiO2 07/30/17 07:55 98.0 64 20 129/80 (96) 99 07/30/17 05:07 97.4 64 18 118/66 (83) 97 07/29/17 23:57 98.0 58 18 106/68 (81) 95 07/29/17 20:35 67 120/68 (85) 07/29/17 20:20 98.1 62 18 100/59 (73) 97 07/29/17 16:25 68 18 121/60 07/29/17 16:00 97.4 66 16 110/56 (74) 97 07/29/17 12:29 18 07/29/17 12:17 97.8 67 16 117/64 (81) 100 I/O 07/29/17 07/29/17 07/29/17 07/30/17 07/30/17 07/30/17 07:00 15:00 23:00 07:00 15:00 23:00 Intake Total 200 ml 200 ml Balance 200 ml 200 ml Intake IV Total 200 ml 200 ml # Voids 1 Result Diagram: 07/28/17 1000 07/29/17 0530 Objective Remarks GENERAL: This is a well-nourished, well-developed patient, in no apparent distress. CARDIOVASCULAR: Regular rate and regular rhythm without murmurs, gallops, or rubs. RESPIRATORY: Clear to auscultation. Breath sounds equal bilaterally. No wheezes , rales, or rhonchi. GASTROINTESTINAL: Abdomen soft, non-tender, nondistended. Normal, active bowel sounds MUSCULOSKELETAL: Extremities without clubbing, cyanosis, or edema. NEURO: Alert & Oriented x4 to person, place, time, situation. Moves all ext x4 Medications and IVs Current Medications Sodium Chloride (NS Flush) 2 ml UNSCH PRN IVF FLUSH AFTER USING IV ACCESS; Start 07/28/17 at 09:45 Sodium Chloride 1,000 ml @ 999 mls/hr BOLUS ONCE IV Last administered on t 12:06; Start 07/28/17 at 09:45; Stop 07/28/17 at 10:45; Status DC Immune Globulin (Privigen Inj) 20 gm ONCE STAT IV ; Start 07/28/17 at 10:20; Stop 07/28/17 at 10:21; Status Cancel Magnesium Sulfate/ Dextrose 100 ml @ 100 mls/hr Q1H IV Last administered on 13:43; Start 07/28/17 at 11:30; Stop 07/28/17 at 13:29; Status DC Potassium Chloride (KCl) 30 meq ONCE ONCE PO Last administered on 07/28/17 12:05; Start 07/28/17 at 11:30; Stop 07/28/17 at 11:37; Status DC Acetaminophen (Tylenol) 650 mg ONCE ONCE PO Last administered on 07/28/17 13 :36; Start 07/28/17 at 11:30; Stop 07/28/17 at 11:37; Status DC Potassium Chloride (KCl) 40 meq ONCE ONCE PO Last administered on 07/28/17 21:36; Start 07/28/17 at 14:00; Stop 07/28/17 at 14:01; Status DC Heparin Sodium (Porcine) (Heparin Inj) 5,000 units Q12HR SQ ; Start 07/28/17 at 21:00 Amitriptyline HCl (Elavil) 25 mg HS PO Last administered on 07/29/17 20:33; Start 07/28/17 at 21:00 Citalopram Hydrobromide (CeleXA) 40 mg DAILY PO Last administered on 09:43; Start 07/29/17 at 09:00 Acetaminophen/ Hydrocodone Bitart ([place] 7.5-325 Mg) 1 tab Q6H PRN PO PAIN SCALE 5 TO 10 Last administered on 07/29/17 04:10; Start 07/28/17 at 11:45; Stop 07/29/17 at 11:03; Status DC Prednisone (Deltasone) 15 mg DAILY PO Last administered on 07/29/17 09:43; Start 07/29/17 at 09:00 Pyridostigmine [place] (Mestinon) 120 mg TIDAC PO Last administered on 07:17; Start 07/28/17 at 12:00 Morphine Sulfate (Morphine Inj) 2 mg ONCE ONCE IV PUSH Last administered on 12:11; Start 07/28/17 at 12:00; Stop 07/28/17 at 12:01; Status DC Diphenhydramine HCl (Benadryl) 25 mg Q6H PRN PO ITCHING Last administered on 13:35; Start 07/28/17 at 13:00 Sodium Chloride 500 ml @ 500 mls/hr Q24H IV Last administered on 07/28/17 14 :43; Start 07/28/17 at 14:30; Stop 07/28/17 at 15:29; Status DC Immune Globulin 20 gm/Syringe / Bag 200 ml @ 15 mls/hr Q24H IV Last administered on 07/28/17 14:28; Start 07/28/17 at 15:00; Stop 07/29/17 at 04 :19; Status DC Dextrose 500 ml @ 30 mls/hr Q24H IV Last administered on 07/28/17 14:42; Start 07/28/17 at 15:00; Stop 07/29/17 at 07:39; Status DC Diphenhydramine HCl (Benadryl Inj) 50 mg UNSCH PRN IV PUSH ALLERGIC REACTION; Start 07/28/17 at 14:30; Stop 07/29/17 at 11:12; Status DC Epinephrine HCl (Adrenalin (1:1000) Inj) 0.3 mg Q10M PRN OTHER ANAPHYLACTIC REACTION; Start 07/28/17 at 14:30; Stop 07/29/17 at 11:12; Status DC Alprazolam (Xanax) 1 mg Q6H PRN PO ANXIETY Last administered on 07/30/17 07: 17; Start 07/28/17 at 15:45 Alteplase, Recombinant (Cathflo Activase Inj) 2 mg Q2H PRN INTRACATH catheter flush for blockage Last administered on 07/28/17 23:21; Start 07/28/17 at 23: 15; Stop 07/29/17 at 06:00; Status DC Morphine Sulfate (Morphine Inj) 2 mg ONCE ONCE IV Last administered on 02:51; Start 07/29/17 at 03:00; Stop 07/29/17 at 03:01; Status DC Acetaminophen/ Hydrocodone Bitart ([place] 10-325 Mg) 1 tab Q4H PRN PO PAIN 4-10 Last administered on 07/30/17 05:05; Start 07/29/17 at 11:00 Hydromorphone HCl (Dilaudid Pf Inj) 0.5 mg Q4H PRN IV PUSH BREAKTHROUGH PAIN; Start 07/29/17 at 11:00 Ciprofloxacin/ Dextrose 200 ml @ 200 mls/hr Q12H IV Last administered on 07/30 00:25; Start 07/29/17 at 11:00 Immune Globulin 20 gm/Syringe / Bag 200 ml @ 25 mls/hr Q24H IV Last administered on 07/29/17 16:25; Start 07/29/17 at 15:00; Stop 08/01/17 at 22 :59 Sodium Chloride 500 ml @ 500 mls/hr Q24H IV Last administered on 07/29/17 14 :00; Start 07/29/17 at 14:00; Stop 08/01/17 at 14:59 Dextrose 500 ml @ 30 mls/hr Q24H IV Last administered on 07/29/17 15:00; Start 07/29/17 at 15:00; Stop 08/02/17 at 07:39 Diphenhydramine HCl (Benadryl Inj) 50 mg UNSCH PRN IV PUSH ALLERGIC REACTION; Start 07/29/17 at 15:00; Stop 08/02/17 at 14:59 Epinephrine HCl (Adrenalin (1:1000) Inj) 0.3 mg Q10M PRN OTHER ANAPHYLACTIC REACTION; Start 07/29/17 at 15:00; Stop 08/02/17 at 14:59 A/P Problem List: (1) Myasthenia gravis with exacerbation ICD Code: G70.01 - Myasthenia gravis with exacerbation Status: Acute Assessment and Plan A/P - myasthenia gravis exacerbation continue IVIG ( five doses from 07/28)- resumed her pyridostigmine and prednisone- neurology consult appreciated. consulted PT. -possible UTI; started on Cipro and follow the culture. -hypokalemia; replaced. -avascular necrosis of the right hip- continue with pain control- adjust the pain regimen as needed. -DVT prophylaxis with subq Heparin Discharge Planning when has finished the course of IVIG; next Wednesday if remains stable. consult case management for [facility]. Shasha De Souza MD Jul 30, 2017 08:30
[2017-07-30] MEDS: predniSONE 5 MG TAB PO SCH (08:43)
[2017-07-30] MEDS: HEPARIN SODIUM - SQ 10,000 UNITS/ML VIAL SQ SCH ×2 (08:44→20:22)
[2017-07-30] MEDS: CITALOPRAM HYDROBROMIDE 40 MG TAB PO SCH (08:44)
[2017-07-30] MEDS ORDERED: BEDSIDE COMMODE1 MI1 (11:35)
[2017-07-30] MEDS ORDERED: WALKER WHEELS/F1 MIS (11:35)
[2017-07-30 12:19] VITALS: BP 109/72; PULSE 67; RESP 20; TEMP 98; O2SAT 97
[2017-07-30] MEDS: NS 500 ML Pre-hydration IV SCH (14:00)
[2017-07-30] MEDS: diphenhydrAMINE HCL 25 MG CAP PO PRN (14:15)
[2017-07-30] MEDS: D5W as prime bag (IVIG as secondary) IV SCH (15:00)
[2017-07-30] MEDS: IMMUNE GLOBULIN INJ 20 GM in SYRINGE/BAG 1 EA IV SCH (15:42)
[2017-07-30 16:23] VITALS: BP 131/59; PULSE 76; RESP 20; TEMP 98; O2SAT 98
--- NOTE | 2017-07-30 17:49 | HHI.PR ---
Review/Management Diagnosis myasthenia gravis--improving with ivig. recommend continue ivig for full 5 treaments Diagnosis/Plan: Subjective Subjective Comments No acute events reported tolerating ivig and feels strength is improving Active Medications Current Medications Medications (Trade) Dose Ordered Sig/Gómez Route Start Time Stop Time Status Last Admin (NS Flush) 2 ml UNSCH PRN IVF 07/28/17 09:45 (Heparin Inj) 5,000 units Q12HR SQ 07/28/17 21:00 (Elavil) 25 mg HS PO 07/28/17 21:00 07/29/17 20:33 (CeleXA) 40 mg DAILY PO 07/29/17 09:00 07/30/17 08:44 (Deltasone) 15 mg DAILY PO 07/29/17 09:00 07/30/17 08:43 (Mestinon) 120 mg TIDAC PO 07/28/17 12:00 07/30/17 15:58 (Benadryl) 25 mg Q6H PRN PO 07/28/17 13:00 07/30/17 14:15 (Xanax) 1 mg Q6H PRN PO 07/28/17 15:45 07/30/17 14:03 ([place] 10-325 Mg) 1 tab Q4H PRN PO 07/29/17 11:00 07/30/17 15:58 (Dilaudid Pf Inj) 0.5 mg Q4H PRN IV PUSH 07/29/17 11:00 Ciprofloxacin/ Dextrose 200 ml @ 200 mls/hr Q12H IV 07/29/17 11:00 07/30/17 11:07 Immune Globulin 20 gm/Syringe / Bag 200 ml @ 25 mls/hr Q24H IV 07/29/17 15:00 08/01/17 22:59 07/30/17 15:42 Sodium Chloride 500 ml @ 500 mls/hr Q24H IV 07/29/17 14:00 08/01/17 14:59 07/29/17 14:00 Dextrose 500 ml @ 30 mls/hr Q24H IV 07/29/17 15:00 08/02/17 07:39 07/30/17 15:00 (Benadryl Inj) 50 mg UNSCH PRN IV PUSH 07/29/17 15:00 08/02/17 14:59 (Adrenalin (1:1000) Inj) 0.3 mg Q10M PRN OTHER 07/29/17 15:00 08/02/17 14:59 Allergies Allergies Coded Allergies penicillin G (Unverified Allergy, Severe, Anaphylaxis, 07/28/17) promethazine (Unverified Adverse Reaction, Severe, NAUSEOUS, 07/28/17) Review of Systems All other ROS: ROS reviewed as documented in chart Exam I&O / VS 07/30/17 07/30/17 07/31/17 15:00 23:00 07:00 Intake Total 720 ml Balance 720 ml Intake Oral 720 ml # Voids 3 Vital Signs Date Time Temp Pulse Resp B/P (MAP) Pulse Ox O2 Delivery O2 Flow Rate FiO2 07/30/17 16:23 98.0 76 20 131/59 (83) 98 07/30/17 15:42 76 20 131/59 07/30/17 12:19 98.0 67 20 109/72 (84) 97 07/30/17 09:50 16 07/30/17 07:55 98.0 64 20 129/80 (96) 99 07/30/17 05:07 97.4 64 18 118/66 (83) 97 07/29/17 23:57 98.0 58 18 106/68 (81) 95 07/29/17 20:35 67 120/68 (85) 07/29/17 20:20 98.1 62 18 100/59 (73) 97 General: Alert and Oriented, No acute distress Eye: PERRL, EOMI, Normal conjuctiva Respiratory: Lungs CTA, Non-labored respirations Cardiology: Normal rate Musculoskeletal: ROM Neurologic: Alert, Oriented, Normal sensory, CN II-XII intact, Normal DTR's Psychiatric: Cooperative, Appropriate mood & affect, Normal judgement Exam Comments alert, speech normal Cn intact, no ptosis MOTOR 4/5 BUE Objective Micro and Labs Date/Time Source Procedure Growth Status 07/28/17 12:15 Urine Clean Catch Urine Culture - Final 50-100,000 CFU/ML MIXED OMI... Complete Leonardo De La Fuente PhD MD Jul 30, 2017 17:49
[2017-07-30] MEDS: AMITRIPTYLINE HCL 25 MG TAB PO SCH (20:21)
[2017-07-30 20:51] VITALS: BP 101/67; PULSE 70; RESP 16; TEMP 98.1; O2SAT 97
[2017-07-31] MEDS: ACETAMINOPHEN/HYDROcodone 325 MG/10 MG TAB PO PRN ×6 (00:03→21:28)
[2017-07-31 00:41] VITALS: BP 111/68; PULSE 65; RESP 18; TEMP 98.1; O2SAT 98
[2017-07-31] MEDS: ALPRAZolam 1 MG TAB PO PRN ×3 (03:38→21:18)
[2017-07-31 04:02] VITALS: BP 100/64; PULSE 60; RESP 16; TEMP 98.1; O2SAT 98
[2017-07-31 05:17] LABS: AUTOMATED NEUTROPHIL # 3.4 TH/MM3 (1.8-7.7); BASOPHIL % 0.4 % (0.0-2.0); EOSINOPHIL # 0.1 TH/MM3 (0-0.4); HEMATOCRIT 30.1 % (35.0-46.0); HEMO FLAGS DIFF FINAL; LYMPH % 33.4 % (9.0-44.0); LYMPHOCYTE # 1.9 TH/MM3 (1.0-4.8); MEAN CORPUSCULAR HEMOGLOBIN 27.1 PG (27.0-34.0); MEAN CORPUSCULAR HGB CONC 33.4 % (32.0-36.0); MONO % 7.7 % (0.0-8.0); NEUT % 57.5 % (16.0-70.0); PLATELET COUNT 382 TH/MM3 (150-450); RED BLOOD COUNT 3.71 MIL/MM3 (4.00-5.30); RED CELL DISTRIBUTION WIDTH 19.3 % (11.6-17.2); WHITE BLOOD COUNT 5.8 TH/MM3 (4.0-11.0)
[2017-07-31 05:43] LABS: BICARBONATE 30.9 MEQ/L (21.0-32.0); POTASSIUM 3.5 MEQ/L (3.5-5.1)
[2017-07-31] MEDS: PYRIDOSTIGMINE BROMIDE 60 MG TAB PO SCH ×4 (07:11→21:26)
[2017-07-31 08:00] VITALS: BP 120/72; PULSE 62; RESP 19; TEMP 97.5; O2SAT 98
[2017-07-31] MEDS: HEPARIN SODIUM - SQ 10,000 UNITS/ML VIAL SQ SCH ×2 (09:00→21:00)
[2017-07-31] MEDS: CITALOPRAM HYDROBROMIDE 40 MG TAB PO SCH (09:36)
[2017-07-31] MEDS: predniSONE 5 MG TAB PO SCH (09:36)
[2017-07-31] MEDS: CIPROFLOXACIN 400 MG PREMIX 200 ML IV SCH (10:41)
--- NOTE | 2017-07-31 11:04 | HHI.PR ---
Subjective Remarks in no acute distress. resting comfortably with no distress. no new complaints. afebrile. Objective Vitals Vital Signs Date Time Temp Pulse Resp B/P (MAP) Pulse Ox O2 Delivery O2 Flow Rate FiO2 07/31/17 08:00 97.5 62 19 120/72 (88) 98 07/31/17 04:02 98.1 60 16 100/64 (76) 98 07/31/17 00:41 98.1 65 18 111/68 (82) 98 07/30/17 20:51 98.1 70 16 101/67 (78) 97 07/30/17 16:23 98.0 76 20 131/59 (83) 98 07/30/17 15:42 76 20 131/59 07/30/17 13:20 16 07/30/17 12:19 98.0 67 20 109/72 (84) 97 I/O 07/30/17 07/30/17 07/30/17 07/31/17 07/31/17 07/31/17 07:00 15:00 23:00 07:00 15:00 23:00 Intake Total 200 ml 920 ml 200 ml Balance 200 ml 920 ml 200 ml Intake Oral 720 ml IV Total 200 ml 200 ml 200 ml # Voids 1 3 2 Result Diagram: 07/31/17 0500 07/31/17 0500 Objective Remarks GENERAL: This is a well-nourished, well-developed patient, in no apparent distress. CARDIOVASCULAR: Regular rate and regular rhythm without murmurs, gallops, or rubs. RESPIRATORY: Clear to auscultation. Breath sounds equal bilaterally. No wheezes , rales, or rhonchi. GASTROINTESTINAL: Abdomen soft, non-tender, nondistended. Normal, active bowel sounds MUSCULOSKELETAL: Extremities without clubbing, cyanosis, or edema. NEURO: Alert & Oriented x4 to person, place, time, situation. Moves all ext x4 Medications and IVs Current Medications Sodium Chloride (NS Flush) 2 ml UNSCH PRN IVF FLUSH AFTER USING IV ACCESS; Start 07/28/17 at 09:45 Sodium Chloride 1,000 ml @ 999 mls/hr BOLUS ONCE IV Last administered on t 12:06; Start 07/28/17 at 09:45; Stop 07/28/17 at 10:45; Status DC Immune Globulin (Privigen Inj) 20 gm ONCE STAT IV ; Start 07/28/17 at 10:20; Stop 07/28/17 at 10:21; Status Cancel Magnesium Sulfate/ Dextrose 100 ml @ 100 mls/hr Q1H IV Last administered on 13:43; Start 07/28/17 at 11:30; Stop 07/28/17 at 13:29; Status DC Potassium Chloride (KCl) 30 meq ONCE ONCE PO Last administered on 07/28/17 12:05; Start 07/28/17 at 11:30; Stop 07/28/17 at 11:37; Status DC Acetaminophen (Tylenol) 650 mg ONCE ONCE PO Last administered on 07/28/17 13 :36; Start 07/28/17 at 11:30; Stop 07/28/17 at 11:37; Status DC Potassium Chloride (KCl) 40 meq ONCE ONCE PO Last administered on 07/28/17 21:36; Start 07/28/17 at 14:00; Stop 07/28/17 at 14:01; Status DC Heparin Sodium (Porcine) (Heparin Inj) 5,000 units Q12HR SQ ; Start 07/28/17 at 21:00 Amitriptyline HCl (Elavil) 25 mg HS PO Last administered on 07/30/17 20:21; Start 07/28/17 at 21:00 Citalopram Hydrobromide (CeleXA) 40 mg DAILY PO Last administered on 09:36; Start 07/29/17 at 09:00 Acetaminophen/ Hydrocodone Bitart ([place] 7.5-325 Mg) 1 tab Q6H PRN PO PAIN SCALE 5 TO 10 Last administered on 07/29/17 04:10; Start 07/28/17 at 11:45; Stop 07/29/17 at 11:03; Status DC Prednisone (Deltasone) 15 mg DAILY PO Last administered on 07/31/17 09:36; Start 07/29/17 at 09:00 Pyridostigmine [place] (Mestinon) 120 mg TIDAC PO Last administered on 10:41; Start 07/28/17 at 12:00 Morphine Sulfate (Morphine Inj) 2 mg ONCE ONCE IV PUSH Last administered on 12:11; Start 07/28/17 at 12:00; Stop 07/28/17 at 12:01; Status DC Diphenhydramine HCl (Benadryl) 25 mg Q6H PRN PO ITCHING Last administered on 14:15; Start 07/28/17 at 13:00 Sodium Chloride 500 ml @ 500 mls/hr Q24H IV Last administered on 07/28/17 14 :43; Start 07/28/17 at 14:30; Stop 07/28/17 at 15:29; Status DC Immune Globulin 20 gm/Syringe / Bag 200 ml @ 15 mls/hr Q24H IV Last administered on 07/28/17 14:28; Start 07/28/17 at 15:00; Stop 07/29/17 at 04 :19; Status DC Dextrose 500 ml @ 30 mls/hr Q24H IV Last administered on 07/28/17 14:42; Start 07/28/17 at 15:00; Stop 07/29/17 at 07:39; Status DC Diphenhydramine HCl (Benadryl Inj) 50 mg UNSCH PRN IV PUSH ALLERGIC REACTION; Start 07/28/17 at 14:30; Stop 07/29/17 at 11:12; Status DC Epinephrine HCl (Adrenalin (1:1000) Inj) 0.3 mg Q10M PRN OTHER ANAPHYLACTIC REACTION; Start 07/28/17 at 14:30; Stop 07/29/17 at 11:12; Status DC Alprazolam (Xanax) 1 mg Q6H PRN PO ANXIETY Last administered on 07/31/17 09: 39; Start 07/28/17 at 15:45 Alteplase, Recombinant (Cathflo Activase Inj) 2 mg Q2H PRN INTRACATH catheter flush for blockage Last administered on 07/28/17 23:21; Start 07/28/17 at 23: 15; Stop 07/29/17 at 06:00; Status DC Morphine Sulfate (Morphine Inj) 2 mg ONCE ONCE IV Last administered on 02:51; Start 07/29/17 at 03:00; Stop 07/29/17 at 03:01; Status DC Acetaminophen/ Hydrocodone Bitart ([place] 10-325 Mg) 1 tab Q4H PRN PO PAIN 4-10 Last administered on 07/31/17 09:37; Start 07/29/17 at 11:00 Hydromorphone HCl (Dilaudid Pf Inj) 0.5 mg Q4H PRN IV PUSH BREAKTHROUGH PAIN; Start 07/29/17 at 11:00 Ciprofloxacin/ Dextrose 200 ml @ 200 mls/hr Q12H IV Last administered on 07/31 10:41; Start 07/29/17 at 11:00 Immune Globulin 20 gm/Syringe / Bag 200 ml @ 25 mls/hr Q24H IV Last administered on 07/30/17 15:42; Start 07/29/17 at 15:00; Stop 08/01/17 at 22 :59 Sodium Chloride 500 ml @ 500 mls/hr Q24H IV Last administered on 07/30/17 14 :00; Start 07/29/17 at 14:00; Stop 08/01/17 at 14:59 Dextrose 500 ml @ 30 mls/hr Q24H IV Last administered on 07/30/17 15:00; Start 07/29/17 at 15:00; Stop 08/02/17 at 07:39 Diphenhydramine HCl (Benadryl Inj) 50 mg UNSCH PRN IV PUSH ALLERGIC REACTION; Start 07/29/17 at 15:00; Stop 08/02/17 at 14:59 Epinephrine HCl (Adrenalin (1:1000) Inj) 0.3 mg Q10M PRN OTHER ANAPHYLACTIC REACTION; Start 07/29/17 at 15:00; Stop 08/02/17 at 14:59 A/P Problem List: (1) Myasthenia gravis with exacerbation ICD Code: G70.01 - Myasthenia gravis with exacerbation Status: Acute Assessment and Plan A/P - myasthenia gravis exacerbation continue IVIG ( five doses from 07/28)- resumed her pyridostigmine and prednisone- neurology following. consulted PT. -abnormal UA- UC with mixed bacteria- asymptomatic- will dc antibiotic. -hypokalemia; replaced. -avascular necrosis of the right hip- continue with pain control- adjust the pain regimen as needed. -DVT prophylaxis with subq Heparin Discharge Planning when has finished the course of IVIG;dc home on Wednesday if remains stable. consult case management for [facility]. Shasha De Souza MD Jul 31, 2017 11:04
[2017-07-31 12:00] VITALS: BP 120/69; PULSE 71; RESP 19; TEMP 98.2; O2SAT 98
[2017-07-31] MEDS: NS 500 ML Pre-hydration IV SCH (13:44)
[2017-07-31] MEDS: diphenhydrAMINE HCL 25 MG CAP PO PRN (13:52)
[2017-07-31] MEDS: D5W as prime bag (IVIG as secondary) IV SCH (14:59)
[2017-07-31] MEDS: IMMUNE GLOBULIN INJ 20 GM in SYRINGE/BAG 1 EA IV SCH (15:00)
[2017-07-31 16:00] VITALS: BP 122/58; PULSE 76; RESP 18; TEMP 98.2; O2SAT 95
[2017-07-31 20:00] VITALS: BP 117/58; PULSE 71; RESP 20; TEMP 98.4; O2SAT 97
[2017-07-31] MEDS: AMITRIPTYLINE HCL 25 MG TAB PO SCH (21:18)
[2017-08-01] VITALS: BP 119/67; PULSE 60; RESP 20; TEMP 97.8; O2SAT 98
[2017-08-01] MEDS: HYDROmorphone HCL PF 0.5 MG/0.5 ML SYRINGE IV PUSH PRN ×6 (01:23→23:09)
[2017-08-01] MEDS: PYRIDOSTIGMINE BROMIDE 60 MG TAB PO SCH ×4 (01:37→17:19)
[2017-08-01 04:00] VITALS: BP 116/60; PULSE 62; RESP 20; TEMP 97.7; O2SAT 98
[2017-08-01] MEDS: ALPRAZolam 1 MG TAB PO PRN ×3 (05:17→18:51)
[2017-08-01] MEDS: ACETAMINOPHEN/HYDROcodone 325 MG/10 MG TAB PO PRN ×4 (05:17→21:18)
[2017-08-01 08:13] VITALS: BP 124/76; PULSE 73; RESP 20; TEMP 98; O2SAT 97
[2017-08-01] MEDS: CITALOPRAM HYDROBROMIDE 40 MG TAB PO SCH (09:12)
[2017-08-01] MEDS: predniSONE 5 MG TAB PO SCH (09:12)
--- NOTE | 2017-08-01 09:14 | HHI.PR ---
Subjective Remarks in no acute distress. feels stronger. no new complaints. Objective Vitals Vital Signs Date Time Temp Pulse Resp B/P (MAP) Pulse Ox O2 Delivery O2 Flow Rate FiO2 08/01/17 08:13 98.0 73 20 124/76 (92) 97 08/01/17 04:00 97.7 62 20 116/60 (78) 98 08/01/17 00:00 97.8 60 20 119/67 (84) 98 07/31/17 21:16 10 07/31/17 20:00 98.4 71 20 117/58 (77) 97 07/31/17 16:00 98.2 76 18 122/58 (79) 95 07/31/17 15:00 71 18 122/58 07/31/17 12:00 98.2 71 19 120/69 (86) 98 I/O 07/31/17 07/31/17 07/31/17 08/01/17 08/01/17 08/01/17 07:00 15:00 23:00 07:00 15:00 23:00 Intake Total 200 ml 200 ml 1160 ml Balance 200 ml 200 ml 1160 ml Intake Oral 960 ml IV Total 200 ml 200 ml 200 ml # Voids 2 4 2 # Bowel Movements 1 Result Diagram: 07/31/17 0500 07/31/17 0500 Objective Remarks GENERAL: This is a well-nourished, well-developed patient, in no apparent distress. CARDIOVASCULAR: Regular rate and regular rhythm without murmurs, gallops, or rubs. RESPIRATORY: Clear to auscultation. Breath sounds equal bilaterally. No wheezes , rales, or rhonchi. GASTROINTESTINAL: Abdomen soft, non-tender, nondistended. Normal, active bowel sounds MUSCULOSKELETAL: Extremities without clubbing, cyanosis, or edema. NEURO: Alert & Oriented x4 to person, place, time, situation. Moves all ext x4 Medications and IVs Current Medications Sodium Chloride (NS Flush) 2 ml UNSCH PRN IVF FLUSH AFTER USING IV ACCESS; Start 07/28/17 at 09:45 Sodium Chloride 1,000 ml @ 999 mls/hr BOLUS ONCE IV Last administered on t 12:06; Start 07/28/17 at 09:45; Stop 07/28/17 at 10:45; Status DC Immune Globulin (Privigen Inj) 20 gm ONCE STAT IV ; Start 07/28/17 at 10:20; Stop 07/28/17 at 10:21; Status Cancel Magnesium Sulfate/ Dextrose 100 ml @ 100 mls/hr Q1H IV Last administered on 13:43; Start 07/28/17 at 11:30; Stop 07/28/17 at 13:29; Status DC Potassium Chloride (KCl) 30 meq ONCE ONCE PO Last administered on 07/28/17 12:05; Start 07/28/17 at 11:30; Stop 07/28/17 at 11:37; Status DC Acetaminophen (Tylenol) 650 mg ONCE ONCE PO Last administered on 07/28/17 13 :36; Start 07/28/17 at 11:30; Stop 07/28/17 at 11:37; Status DC Potassium Chloride (KCl) 40 meq ONCE ONCE PO Last administered on 07/28/17 21:36; Start 07/28/17 at 14:00; Stop 07/28/17 at 14:01; Status DC Heparin Sodium (Porcine) (Heparin Inj) 5,000 units Q12HR SQ ; Start 07/28/17 at 21:00 Amitriptyline HCl (Elavil) 25 mg HS PO Last administered on 07/31/17 21:18; Start 07/28/17 at 21:00 Citalopram Hydrobromide (CeleXA) 40 mg DAILY PO Last administered on 09:36; Start 07/29/17 at 09:00 Acetaminophen/ Hydrocodone Bitart ([place] 7.5-325 Mg) 1 tab Q6H PRN PO PAIN SCALE 5 TO 10 Last administered on 07/29/17 04:10; Start 07/28/17 at 11:45; Stop 07/29/17 at 11:03; Status DC Prednisone (Deltasone) 15 mg DAILY PO Last administered on 07/31/17 09:36; Start 07/29/17 at 09:00 Pyridostigmine [place] (Mestinon) 120 mg TIDAC PO Last administered on 10:41; Start 07/28/17 at 12:00; Stop 07/31/17 at 11:09; Status DC Morphine Sulfate (Morphine Inj) 2 mg ONCE ONCE IV PUSH Last administered on 12:11; Start 07/28/17 at 12:00; Stop 07/28/17 at 12:01; Status DC Diphenhydramine HCl (Benadryl) 25 mg Q6H PRN PO ITCHING Last administered on 13:52; Start 07/28/17 at 13:00 Sodium Chloride 500 ml @ 500 mls/hr Q24H IV Last administered on 07/28/17 14 :43; Start 07/28/17 at 14:30; Stop 07/28/17 at 15:29; Status DC Immune Globulin 20 gm/Syringe / Bag 200 ml @ 15 mls/hr Q24H IV Last administered on 07/28/17 14:28; Start 07/28/17 at 15:00; Stop 07/29/17 at 04 :19; Status DC Dextrose 500 ml @ 30 mls/hr Q24H IV Last administered on 07/28/17 14:42; Start 07/28/17 at 15:00; Stop 07/29/17 at 07:39; Status DC Diphenhydramine HCl (Benadryl Inj) 50 mg UNSCH PRN IV PUSH ALLERGIC REACTION; Start 07/28/17 at 14:30; Stop 07/29/17 at 11:12; Status DC Epinephrine HCl (Adrenalin (1:1000) Inj) 0.3 mg Q10M PRN OTHER ANAPHYLACTIC REACTION; Start 07/28/17 at 14:30; Stop 07/29/17 at 11:12; Status DC Alprazolam (Xanax) 1 mg Q6H PRN PO ANXIETY Last administered on 08/01/17 05: 17; Start 07/28/17 at 15:45 Alteplase, Recombinant (Cathflo Activase Inj) 2 mg Q2H PRN INTRACATH catheter flush for blockage Last administered on 07/28/17 23:21; Start 07/28/17 at 23: 15; Stop 07/29/17 at 06:00; Status DC Morphine Sulfate (Morphine Inj) 2 mg ONCE ONCE IV Last administered on 02:51; Start 07/29/17 at 03:00; Stop 07/29/17 at 03:01; Status DC Acetaminophen/ Hydrocodone Bitart ([place] 10-325 Mg) 1 tab Q4H PRN PO PAIN 4-10 Last administered on 08/01/17 05:17; Start 07/29/17 at 11:00 Hydromorphone HCl (Dilaudid Pf Inj) 0.5 mg Q4H PRN IV PUSH BREAKTHROUGH PAIN Last administered on 08/01/17 06:59; Start 07/29/17 at 11:00 Ciprofloxacin/ Dextrose 200 ml @ 200 mls/hr Q12H IV Last administered on 07/31 10:41; Start 07/29/17 at 11:00; Stop 07/31/17 at 11:05; Status DC Immune Globulin 20 gm/Syringe / Bag 200 ml @ 25 mls/hr Q24H IV Last administered on 07/31/17 15:00; Start 07/29/17 at 15:00; Stop 08/01/17 at 22 :59 Sodium Chloride 500 ml @ 500 mls/hr Q24H IV Last administered on 07/31/17 13 :44; Start 07/29/17 at 14:00; Stop 08/01/17 at 14:59 Dextrose 500 ml @ 30 mls/hr Q24H IV Last administered on 07/31/17 14:59; Start 07/29/17 at 15:00; Stop 08/02/17 at 07:39 Diphenhydramine HCl (Benadryl Inj) 50 mg UNSCH PRN IV PUSH ALLERGIC REACTION; Start 07/29/17 at 15:00; Stop 08/02/17 at 14:59 Epinephrine HCl (Adrenalin (1:1000) Inj) 0.3 mg Q10M PRN OTHER ANAPHYLACTIC REACTION; Start 07/29/17 at 15:00; Stop 08/02/17 at 14:59 Pyridostigmine [place] (Mestinon) 120 mg TID@0600,1200,1700 PO Last administered on 08/01/17 06:59; Start 07/31/17 at 12:00 A/P Problem List: (1) Myasthenia gravis with exacerbation ICD Code: G70.01 - Myasthenia gravis with exacerbation Status: Acute Assessment and Plan A/P - myasthenia gravis exacerbation continue IVIG ( five doses from 07/28)- resumed her pyridostigmine and prednisone- neurology following. consulted PT. -hypokalemia; replaced. -avascular necrosis of the right hip- continue with pain control- adjust the pain regimen as needed. -DVT prophylaxis with subq Heparin Discharge Planning will finish the course of IVIG tonight. dc home tomorrow if stable. consulted case management for [facility]. d/w the patient. Shasha De Souza MD Aug 01, 2017 09:14
[2017-08-01 11:21] VITALS: BP 116/66; PULSE 70; RESP 20; TEMP 97.8; O2SAT 98
[2017-08-01] MEDS: D5W as prime bag (IVIG as secondary) IV SCH (15:00)
[2017-08-01] MEDS: IMMUNE GLOBULIN INJ 20 GM in SYRINGE/BAG 1 EA IV SCH (15:04)
[2017-08-01 16:13] VITALS: BP 112/53; PULSE 65; RESP 20; TEMP 98.1; O2SAT 96
[2017-08-01 20:00] VITALS: BP 106/59; PULSE 61; RESP 20; TEMP 98.2; O2SAT 97
[2017-08-01] MEDS: AMITRIPTYLINE HCL 25 MG TAB PO SCH (21:17)
[2017-08-01] MEDS: HEPARIN SODIUM - SQ 10,000 UNITS/ML VIAL SQ SCH (21:18)
[2017-08-02 00:24] VITALS: BP 122/63; PULSE 71; RESP 20; TEMP 98.2; O2SAT 99
[2017-08-02] MEDS: ALPRAZolam 1 MG TAB PO PRN ×2 (00:50→06:45)
[2017-08-02] MEDS: ACETAMINOPHEN/HYDROcodone 325 MG/10 MG TAB PO PRN ×3 (00:50→09:24)
[2017-08-02] MEDS: HYDROmorphone HCL PF 0.5 MG/0.5 ML SYRINGE IV PUSH PRN ×2 (03:22→06:45)
[2017-08-02 04:00] VITALS: BP 110/64; PULSE 71; RESP 20; TEMP 98; O2SAT 97
[2017-08-02] MEDS: PYRIDOSTIGMINE BROMIDE 60 MG TAB PO SCH (05:12)
[2017-08-02 08:15] VITALS: BP 118/62; PULSE 70; RESP 18; TEMP 98.1; O2SAT 100
[2017-08-02] MEDS: HEPARIN SODIUM - SQ 10,000 UNITS/ML VIAL SQ SCH (09:00)
[2017-08-02] MEDS: CITALOPRAM HYDROBROMIDE 40 MG TAB PO SCH (09:24)
[2017-08-02] MEDS: predniSONE 5 MG TAB PO SCH (09:25)
--- NOTE | 2017-08-02 10:23 | HHI.PR ---
Subjective Remarks feeling stronger- pain controlled assured her that pain meds written po 100% chronic right hip pain Objective Vitals Vital Signs Date Time Temp Pulse Resp B/P (MAP) Pulse Ox O2 Delivery O2 Flow Rate FiO2 08/02/17 08:15 98.1 70 18 118/62 (80) 100 08/02/17 04:00 98.0 71 20 110/64 (79) 97 08/02/17 00:24 98.2 71 20 122/63 (82) 99 08/01/17 20:00 98.2 61 20 106/59 (75) 97 08/01/17 16:13 98.1 65 20 112/53 (72) 96 08/01/17 15:04 72 18 116/66 08/01/17 11:21 97.8 70 20 116/66 (83) 98 I/O 08/01/17 08/01/17 08/01/17 08/02/17 08/02/17 08/02/17 07:00 15:00 23:00 07:00 15:00 23:00 Intake Total 720 ml 797 ml Balance 720 ml 797 ml Intake Oral 720 ml IV Total 797 ml # Voids 2 3 5 # Bowel Movements 2 0 Result Diagram: 07/31/17 0500 07/31/17 0500 Imaging awake and alert, oriented x 3 anicteric lungs clear regular rhythm abdomen soft, nontender extremities - no calf swelling or tenderness motor exam- UE 5/5 RLE- weakness R> L- more proximal gait slow but steady- walker A/P Problem List: (1) Myasthenia gravis with exacerbation ICD Code: G70.01 - Myasthenia gravis with exacerbation Status: Acute Plan: - myasthenia gravis exacerbation S/P IVIG - OP PT -hypokalemia; replaced. -avascular necrosis of the right hip- continue with pain control- adjust the pain regimen as needed. -DVT prophylaxis with subq Heparin low TSH but not suppreseed, Free thryoid hormone levels normal ff as OP Chronic pain- states she is also set up by Dr. Zamora to see a auto customize painter as OP, just waiting to hear from them wrote for Lortab 10 q 8 prn for pain #20 DC home today OP ff up with PCP- Dr. Deleon OP ff up with neurology- Clemencia Arevalo MD Aug 02, 2017 10:23
[2017-08-02] MEDS ORDERED: HYDR-3583 PO (10:38)
--- NOTE | 2017-08-02 10:45 | HHI.DS ---
Discharge Summary Admission Date Jul 28, 2017 at 11:29 Discharge Date: Aug 02, 2017 Admitting Diagnosis Myastenia Gravis exacerbation (1) Myasthenia gravis with exacerbation ICD Code: G70.01 - Myasthenia gravis with exacerbation Status: Acute Brief History - From Admission patient is a 42 y/o female with history of myasthenia gravis who presented to ER with generalized weakness. she says that she was taken off Imuran and the dose of her prednisone was decreased a couple of weeks ago. she says that she started to feel weak yesterday which has been getting worse. this was associated with blurred vision. she's complaining of some pain to the right hip which she relates to her history of right hip avascular necrosis. otherwise she denies any chest pain, sob, abdominal pain. no history of fever. CBC/BMP: 07/31/17 0500 07/31/17 0500 Significant Findings Laboratory Tests Test 07/31/17 05:00 Red Blood Count 3.71 MIL/MM3 (4.00-5.30) Hemoglobin 10.1 GM/DL (11.6-15.3) Hematocrit 30.1 % (35.0-46.0) Red Cell Distribution Width 19.3 % (11.6-17.2) Blood Urea Nitrogen 6 MG/DL (7-18) Random Glucose 70 MG/DL (74-106) Chloride Level 109 MEQ/L (98-107) Anion Gap 0 MEQ/L (5-15) PE at Discharge GENERAL: This is a well-nourished, well-developed patient, in no apparent distress. CARDIOVASCULAR: Regular rate and regular rhythm without murmurs, gallops, or rubs. RESPIRATORY: Clear to auscultation. Breath sounds equal bilaterally. No wheezes , rales, or rhonchi. GASTROINTESTINAL: Abdomen soft, non-tender, nondistended. Normal, active bowel sounds MUSCULOSKELETAL: Extremities without clubbing, cyanosis, or edema. NEURO: Alert & Oriented x4 to person, place, time, situation. Moves all ext x4 Pt update on day of discharge afebrile, feels stronger pain better controlled Hospital Course - myasthenia gravis exacerbation S/P IVIG - OP PT -hypokalemia; replaced. -avascular necrosis of the right hip- continue with pain control- adjust the pain regimen as needed. -DVT prophylaxis with subq Heparin low TSH but not suppreseed, Free thryoid hormone levels normal ff as OP Chronic pain- states she is also set up by Dr. Zamora to see a painter supervisor as OP, just waiting to hear from them wrote for Lortab 10 q 8 prn for pain #20 DC home today OP ff up with PCP- Dr. Deleon OP ff up with neurology- dr. Zamora as op Pt Condition on Discharge: Stable Discharge Disposition: Disch w/ Home Health Serv Discharge Time: <= 30 minutes Discharge Instructions DIET: Follow Instructions for: As Tolerated, No Restrictions Speech Therapy-Diet Recommends: Regular Activities you can perform: Weight Bearing as Astrid Activities to Avoid: Strenuous Activity Follow up Referrals: Neurology - 1 Week with Artie Vizcarra MD PCP Follow-up - 2-3 Days with Wai New Medications: Bedside Commode (Bedside Commode) 1 Mis Mis EA .ROUTE DIRECTED, #1 Walker with Front Wheels (Walker with Front Wheels) 1 Mis Mis EA .ROUTE DIRECTED, #1 0 Refills Hydrocodone-Acetaminophen (Hydrocodone-Acetaminophen) 10-325 mg Tab 1 TAB PO Q8 PRN for PAIN 4-10, #20 TAB Continued Medications: Alprazolam (Xanax) 1 Mg Tab 1 MG PO Q6H for Anxiety, TAB 0 Refills Amitriptyline (Amitriptyline) 25 Mg Tab 25 MG PO HS, TAB Citalopram (Citalopram) 40 Mg Tab 40 MG PO DAILY for Control Depression, #30 TAB 0 Refills Prednisone (Prednisone) 10 Mg Tab 15 MG PO DAILY, TAB 0 Refills Pyridostigmine (Mestinon) 60 Mg Tab 120 MG PO TIDAC for Manage Myastenia Gravis, #90 TAB 0 Refills Sumatriptan (Imitrex) 50 Mg Tab 50 MG PO as needed PRN for HEADACHE, #10 TAB 0 Refills If a satisfactory response has not been obtained at 2 hours, a second dose may be administered Discontinued Medications: Hydrocodone-Acetaminophen (Hydrocodone-Acetaminophen) 7.5-325 mg Tab 1 TAB PO Q6H PRN for PAIN SCALE 5 TO 10, #30 TAB Clemencia Martines MD Aug 02, 2017 10:45
--- NOTE | 2017-08-02 12:07 | HHI.FF ---
Face to Face Verification Diagnosis: (1) Myasthenia gravis with exacerbation Physical Therapy Order: Evaluate and Treat, Improve ambulation Occupational Therapy Order: Evaluate and Treat Home Health Nursing Order: Medical education Signs/symptoms of disease process Nursing assessment with vital signs I have seen patient Brionna Rodríguez on 08/02/17. My clinical findings support the need for the requested home health care services because: I certify that my clinical findings support that this patient is homebound because: Unsteady gait/balance Clemencia Martines MD Aug 02, 2017 12:07
== END 2017-08-02 11:30 | disposition home health service (06) | DRG 57 ==
LOC: NEPC 09:18 → NEDA 11:29 → N05B 15:24
PROVIDERS: ADMIT Internal Medicine; ATTEND Internal Medicine
PROC: 30233S1 Transfusion of Nonautologous Globulin into Peripheral Vein, Percutaneous Approach (ICD-10-PCS; principal; 2017-07-28)
DX: G70.01 Myasthenia gravis with (acute) exacerbation (principal); M87.88 Other osteonecrosis, other site; E87.6 Hypokalemia; D64.9 Anemia, unspecified; G89.29 Other chronic pain; R53.1 Weakness; F41.9 Anxiety disorder, unspecified; F32.9 Major depressive disorder, single episode, unspecified; Z79.52 Long term (current) use of systemic steroids; Z87.891 Personal history of nicotine dependence; T38.0X5A Adverse effect of glucocorticoids and synthetic analogues, initial encounter
CPT/HCPCS: 80048; 81001; 84703; 85025; 85610; 85730; 87086; 93005; J1170; J0744; J1459; J2270; J2997; J3475; J7030; J7040; J7060; J7512

== ENCOUNTER 2017-08-24 02:47 | Inpatient (IN) | payer MEDICARE, MEDICAID ==
[~2017-08-24] VITALS: Ht 165.1 cm; Wt 56.7 kg
[2017-08-24] VITALS (17 sets, daily range): BP systolic 98–141; BP diastolic 51–82; PULSE 38–66; RESP 16–18; TEMP 97.7–98.1; O2SAT 98–100
[~2017-08-24 02:47] MED LIST changes: -AZAT50 PO; +BEDSIDE COMMODE1 MI1; -HYDR-3580 PO; +HYDR-3583 PO; -IMUR50TA PO; +PRED10 PO; -PRED20 PO; -WHEEMIS3
[2017-08-24] MEDS ORDERED: SODIUM CHLOR 0.9% 1000 ML INJ 1,000 ML IV ONE (02:58)
[2017-08-24] MEDS ORDERED: HYDROmorphone HCL PF 1 MG/ML VIAL IV PUSH ONE ×2 (03:00→06:00)
[2017-08-24] MEDS ORDERED: SODIUM CHLORIDE 0.9% FLUSH 10 ML FLUSH IVF PRN (03:00)
[2017-08-24] MEDS ORDERED: ONDANSETRON HCL 4 MG/2 ML VIAL IVP ONE (03:00)
--- NOTE | 2017-08-24 03:13 | PD ---
HPI Chief Complaint: syncopal episode Time Seen by Provider: 02:58 Travel History International Travel<30 days: No Contact w/Intl Traveler<30days: No Traveled to known affect area: No History of Present Illness HPI This is a 42-year-old female with a history of myasthenia gravis, migraine headaches, avascular necrosis of the right hip, chronic pain, who presents here after having a syncopal episode at home. Patient states that she sleeps on the couch lately because of adverse chronic right hip pain. She states when she went up to use the restroom, upon leaving the restroom she passed out. She does not recall passing out. She does not recall calling her which paramedics state that he told them. She reports pain in her right hip which is chronic for her. Patient also states that she's been having episodes where she states her son tells her her face twitches and she bumps against the wall. There are no reported palpitations or other complaints at the time of my examination. PFSH Past Medical History Hx Anticoagulant Therapy: No Anemia: Yes Arthritis: No Autoimmune Disease: Yes (MYASTHENA GRAVIS) Blood Disorders: No Anxiety: Yes Depression: Yes Heart Rhythm Problems: No Cancer: No Cardiovascular Problems: No High Cholesterol: No Chemotherapy: No Chest Pain: No Congestive Heart Failure: No Cerebrovascular Accident: No Cystic Fibrosis: No Diabetes: No Diminished Hearing: No Endocrine: No Gastrointestinal Disorders: No Genitourinary: No Headaches: Yes Hepatitis: No Hiatal Hernia: No Hypertension: No Immune Disorder: Yes (MYASTHENIA GRAVIS) Implanted Vascular Access Dvce: Yes (left chest) Musculoskeletal: Yes Neurologic: Yes (MYASTHENIA GRAVIS - Jul, 2013) Psychiatric: Yes (DEPRESSION, ANXIETY) Reproductive: No Respiratory: Yes (Intubated 02/24 coded) Immunizations Current: No Migraines: Yes Seizures: No Thyroid Disease: Yes (myasthenia gravis) : 2 Para: 2 Dilation and Curettage (D&C): Yes Tubal Ligation: Yes Past Surgical History Abdominal Surgery: No Body Medical Devices: LEFT IMPLANTED PORT Cardiac Surgery: No Ear Surgery: No Endocrine Surgery: Yes ( thymus removed) Eye Surgery: No Genitourinary Surgery: No Gynecologic Surgery: Yes (tubal ligation 2014) Hysterectomy: No (tubes removed) Neurologic Surgery: No Oral Surgery: Yes (EXTRACTIONS) Thoracic Surgery: No Tonsillectomy: Yes Other Surgery: Yes (tubal ligation Dec 2014/ POWER PORT TO LEFT CHEST) Social History Alcohol Use: No Tobacco Use: No (quit per pt) Substance Use: No Allergies-Medications (Allergen,Severity, Reaction): Coded Allergies: penicillin G (Unverified Allergy, Severe, Anaphylaxis, 07/28/17) promethazine (Unverified Adverse Reaction, Severe, NAUSEOUS, 07/28/17) Reported Meds & Prescriptions Reported Meds & Active Scripts Active Hydrocodone-Acetaminophen 10-325 mg Tab 1 Tab PO Q8 PRN Walker with Front Wheels (Device) 1 Mis Mis Ea .ROUTE DIRECTED Bedside Commode (Device) 1 Mis Mis Ea .ROUTE DIRECTED Mestinon (Pyridostigmine [place]) 60 Mg Tab 120 Mg PO TIDAC Imitrex (Sumatriptan Succinate) 50 Mg Tab 50 Mg PO NEEDED PRN If a satisfactory response has not been obtained at 2 hours, a second dose may be administered Reported Prednisone 10 Mg Tab 15 Mg PO DAILY Xanax (Alprazolam) 1 Mg Tab 1 Mg PO Q6H Citalopram (Citalopram Hydrobromide) 40 Mg Tab 40 Mg PO DAILY Amitriptyline (Amitriptyline HCl) 25 Mg Tab 25 Mg PO HS Review of Systems Except as stated in HPI: all other systems reviewed are Neg General / Constitutional: No: Fever, Chills HENT: No: Headaches, Neck Pain Cardiovascular: No: Chest Pain or Discomfort, Palpitations Respiratory: No: Cough, Shortness of Breath Gastrointestinal: No: Nausea, Vomiting Genitourinary: No: Frequency, Dysuria, Incontinence Musculoskeletal: Positive: Arthralgias (right hip), Weakness, Pain (right hip/ chronic), No: Edema Neurologic: Positive: Weakness, Dizziness, Syncope, No: Headache Physical Exam Narrative GENERAL: Well-developed well-nourished female in no acute respiratory distress. SKIN: Focused skin assessment warm/dry. HEAD: Atraumatic. Normocephalic. EYES: No scleral icterus. No injection or drainage. ENT: No nasal bleeding or discharge. Mucous membranes pink and moist. NECK: Trachea midline. Supple. CARDIOVASCULAR: Regular rate and rhythm. No murmur appreciated. RESPIRATORY: No accessory muscle use. Clear to auscultation. Breath sounds equal bilaterally. GASTROINTESTINAL: Abdomen soft, non-tender, nondistended. Hepatic and splenic margins not palpable. MUSCULOSKELETAL: No obvious deformities. Pain in her right hip. Patient reports it's always painful. She reports it as severe and constant NEUROLOGICAL: Awake and alert. No obvious cranial nerve deficits. Motor grossly within normal limits. Normal speech. Data Data Last Documented VS Vital Signs Date Time Temp Pulse Resp B/P (MAP) Pulse Ox O2 Delivery O2 Flow Rate FiO2 08/24/17 05:09 65 16 121/72 (88) 99 08/24/17 03:52 Room Air 08/24/17 03:52 98 08/24/17 03:00 97.9 Orders Orders Electrocardiogram (08/24/17 02:58) Basic Metabolic Panel (Bmp) (08/24/17 02:58) Complete Blood Count With Diff (08/24/17 02:58) Troponin I (08/24/17 02:58) Urinalysis - C+S If Indicated (08/24/17 02:58) Ct Brain W/O Iv Contrast(Rout) (08/24/17 02:58) Ecg Monitoring (08/24/17 02:58) Iv Access Insert/Monitor (08/24/17 02:58) Oximetry (08/24/17 02:58) Ondansetron Inj (Zofran Inj) (08/24/17 03:00) Sodium Chloride 0.9% Flush (Ns Flush) (08/24/17 03:00) Sodium Chlor 0.9% 1000 Ml Inj (Ns 1000 M (08/24/17 02:58) Hydromorphone Pf Inj (Dilaudid Pf Inj) (08/24/17 03:00) Hip, Uni(Ap&Lat) W Ap Pelvis (08/24/17 02:58) Potassium Chloride Eff (K-Lyte Cl Eff) (08/24/17 04:30) Labs Laboratory Tests Test 08/24/17 03:25 08/24/17 03:30 White Blood Count 10.7 TH/MM3 Red Blood Count 4.35 MIL/MM3 Hemoglobin 12.0 GM/DL Hematocrit 35.4 % Mean Corpuscular Volume 81.3 FL Mean Corpuscular Hemoglobin 27.6 PG Mean Corpuscular Hemoglobin Concent 33.9 % Red Cell Distribution Width 18.0 % Platelet Count 474 TH/MM3 Mean Platelet Volume 8.7 FL Neutrophils (%) (Auto) 74.2 % Lymphocytes (%) (Auto) 18.2 % Monocytes (%) (Auto) 5.4 % Eosinophils (%) (Auto) 1.4 % Basophils (%) (Auto) 0.8 % Neutrophils # (Auto) 7.9 TH/MM3 Lymphocytes # (Auto) 1.9 TH/MM3 Monocytes # (Auto) 0.6 TH/MM3 Eosinophils # (Auto) 0.1 TH/MM3 Basophils # (Auto) 0.1 TH/MM3 CBC Comment DIFF FINAL Differential Comment Blood Urea Nitrogen 5 MG/DL Creatinine 0.61 MG/DL Random Glucose 142 MG/DL Calcium Level 8.7 MG/DL Sodium Level 138 MEQ/L Potassium Level 3.1 MEQ/L Chloride Level 109 MEQ/L Carbon Dioxide Level 27.7 MEQ/L Anion Gap 1 MEQ/L Estimat Glomerular Filtration Rate 108 ML/MIN Troponin I 0.02 NG/ML MDM Medical Decision Making Medical Screen Exam Complete: Yes Emergency Medical Condition: Yes Differential Diagnosis Cardiac syncope versus vasovagal syncope versus metabolic arrangement Narrative Course 42-year-old female with a history of myasthenia gravis, presents here after having a syncopal episode. The patient has been falling several times over the last couple weeks. The patient had a heart rate of 40 per paramedics when they arrived. Patient came in with a heart rate in the 60s. She was awake appropriate. Complaining of right hip pain. Patient has history of avascular necrosis of the right hip. X-ray show no evidence of acute findings. CT brain shows no evidence of acute finding. Heart rate dropped into the 30s while here in the emergency department. Given this, patient be admitted to a telemetry floor. She is currently not taking any medications that would cause her heart rate to drop. Case was discussed with Dr. Bennett who agrees with the above plan. Diagnosis Primary Impression: Syncope Additional Impressions: Symptomatic bradycardia History of myasthenia gravis Avascular necrosis of bone of right hip Admitting Information Admitting Physician Requests: Admit Tom Baker MD Aug 24, 2017 03:13
[2017-08-24 03:46] LABS: AUTOMATED NEUTROPHIL # 7.9 TH/MM3 (1.8-7.7); BASOPHIL # 0.1 TH/MM3 (0-0.2); BASOPHIL % 0.8 % (0.0-2.0); EOSINOPHIL # 0.1 TH/MM3 (0-0.4); EOSINOPHIL % 1.4 % (0.0-4.0); HEMATOCRIT 35.4 % (35.0-46.0); HEMO FLAGS DIFF FINAL; LYMPH % 18.2 % (9.0-44.0); LYMPHOCYTE # 1.9 TH/MM3 (1.0-4.8); MEAN CELL VOLUME 81.3 FL (80.0-100.0); MEAN CORPUSCULAR HEMOGLOBIN 27.6 PG (27.0-34.0); MEAN CORPUSCULAR HGB CONC 33.9 % (32.0-36.0); MONO % 5.4 % (0.0-8.0); NEUT % 74.2 % (16.0-70.0); PLATELET COUNT 474 TH/MM3 (150-450); RED BLOOD COUNT 4.35 MIL/MM3 (4.00-5.30); WHITE BLOOD COUNT 10.7 TH/MM3 (4.0-11.0)
--- NOTE | 2017-08-24 03:58 | RADRPT ---
EXAM DATE/TIME: 08/24/2017 03:42 [facility] COMPARISON: No previous studies available for comparison. INDICATIONS : Right hip pain after fall. MEDICAL HISTORY : Myasthenia gravis. SURGICAL HISTORY : Tonsillectomy. Tubal ligation. Thymus removed. ENCOUNTER: Initial ACUITY: 1 day PAIN SCORE: 10/10 LOCATION: Right hip. FINDINGS: Examination of the right hip was performed with AP Pelvis. The primary and secondary trabecular ant bruno of the femoral neck is intact. There is flattening right femoral head consistent with AVN. Clearl y worse than in April The hip joint is of normal width without significant sclerosis or bony hypertro phy. The acetabulum is grossly intact. CONCLUSION: Flattening of the right hip consistent with AVN. No acute fracture seen. Ashok Beach MD on August 24, 2017 at 3:56 Board Certified Radiologist. This report was verified electronically.
--- NOTE | 2017-08-24 03:59 | RADRPT ---
EXAM DATE/TIME: 08/24/2017 03:37 [facility] COMPARISON: CT BRAIN W/O CONTRAST, August 20, 2015, 15:06. INDICATIONS : Dizziness. RADIATION DOSE: 29.85 CTDIvol (mGy) MEDICAL HISTORY : Myasthena gravis. SURGICAL HISTORY : Tubal ligation. ENCOUNTER: Initial ACUITY: 1 day PAIN SCALE: 0/10 LOCATION: cranial TECHNIQUE: Multiple contiguous axial images were obtained of the head. Using automated exposure control and adj ustment of the mA and/or kV according to patient size, radiation dose was kept as low as reasonably a chievable to obtain optimal diagnostic quality images. DICOM format image data is available electro nically for review and comparison. FINDINGS: CEREBRUM: The ventricles are normal for age. No evidence of midline shift, mass lesion, hemorrhage or acute in farction. No extra-axial fluid collections are seen. POSTERIOR FOSSA: The cerebellum and brainstem are intact. The 4th ventricle is midline. The cerebellopontine angle i s unremarkable. EXTRACRANIAL: The visualized portion of the orbits is intact. SKULL: The calvaria is intact. No evidence of skull fracture. CONCLUSION: Normal examination. Ashok Beach MD on August 24, 2017 at 3:57 Board Certified Radiologist. This report was verified electronically.
[2017-08-24 04:22] LABS: BICARBONATE 27.7 MEQ/L (21.0-32.0); POTASSIUM 3.1 MEQ/L (3.5-5.1)
[2017-08-24] MEDS ORDERED: POTASSIUM CHLORIDE 25 MEQ EFFERVESCENT TAB PO ONE (04:30)
[2017-08-24] MEDS ORDERED: SODIUM CHLORIDE 0.9% FLUSH 10 ML FLUSH IV FLUSH PRN (06:00)
[2017-08-24] MEDS ORDERED: PYRIDOSTIGMINE BROMIDE 60 MG TAB PO SCH (08:00)
--- NOTE | 2017-08-24 08:29 | PD.CONS ---
History of Present Illness Service Neurology Consult Requested By er Reason for Consult mg Primary Care Physician Non-Staff History of Present Illness 42 year old female with a history of myasthenia gravis and anxiety who presents with head twitiching, fainting episodes. admits to high stress related to divorce with spouse. has been living in a motel and had to go back and live with spouse due to finances. parents do live locally. states she was visiting a friend and she became lightheaded and passed out. no focal weakness. also noted that her head with moving "side to side". no loc, no limb involvement. no dyspnea, no dysphagia. no diplopia. on pred 10mg qd, mestinon 2 tabs tid. has had numerous admissions to this and other local hospitals for myasthenia. most recently 07/2017 recieved ivig x 5 days. chronic pain related to hip avascular necrosis. She was intubated in February 2017 at [facility] and had plex tx. she doesn't think it helped much Review of Systems as above and admit hp Past Family Social History Past Medical History myasthenia anxiety depression fibromyalgia Past Surgical History Thymus gland removed Tubal ligation [id number] Allergies: Coded Allergies: Penicillin (Verified Allergy, Severe, Anaphylaxis, 03/08/17) Phenergan (Verified Adverse Reaction, Severe, NAUSEOUS, 03/08/17) Family History No one in the family with myasthenia Father - pancreatic cancer age 62 Social History Cigarettes - 1/2 ppd- working on quitting Illicit - Denies She lives in an house, no stairs, and lives alone. At baseline she is able to walk and do ADLs/IADLs Review of Systems All other ROS: ROS reviewed as documented in chart Past Family Social History Allergies: Coded Allergies: penicillin G (Unverified Allergy, Severe, Anaphylaxis, 06/19/17) promethazine (Unverified Adverse Reaction, Severe, NAUSEOUS, 06/19/17) Review of Systems All other ROS: ROS reviewed as documented in chart Past Family Social History Allergies: Coded Allergies: penicillin G (Unverified Allergy, Severe, Anaphylaxis, 07/28/17) promethazine (Unverified Adverse Reaction, Severe, NAUSEOUS, 07/28/17) Active Ordered Medications Current Medications Medications (Trade) Dose Ordered Sig/Gómez Route Start Time Stop Time Status Last Admin Sodium Chloride 1,000 ml @ 125 mls/hr Q8H ONCE IV 08/24/17 02:58 08/24/17 10:57 08/24/17 03:44 (Elavil) 25 mg HS PO 08/24/17 21:00 (CeleXA) 40 mg DAILY PO 08/24/17 09:00 (Deltasone) 15 mg DAILY PO 08/24/17 09:00 (Mestinon) 120 mg TIDAC PO 08/24/17 08:00 (NS Flush) 2 ml UNSCH PRN IV FLUSH 08/24/17 06:00 (NS Flush) 2 ml BID IV FLUSH 08/24/17 09:00 Exam I&O / VS Vital Signs Date Time Temp Pulse Resp B/P (MAP) Pulse Ox O2 Delivery O2 Flow Rate FiO2 08/24/17 05:44 16 08/24/17 05:09 65 16 121/72 (88) 99 08/24/17 03:52 98 Room Air 08/24/17 03:52 98 08/24/17 03:00 97.9 66 117/69 (85) 98 General: Alert and Oriented, No acute distress Eye: PERRL, EOMI, Normal conjuctiva Respiratory: Non-labored respirations Cardiology: Normal rate Musculoskeletal: ROM Neurologic: Alert, Oriented, Normal sensory, CN II-XII intact, Normal DTR's Psychiatric: Cooperative, Appropriate mood & affect, Normal judgement Exam Comments anxious, articulates without difficulty, eomi, mild ptosis, leslie to gravity 5/5 Review/Management Diagnosis/Plan: (1) Bradycardia ICD Codes: R00.1 - Bradycardia, unspecified Status: Acute Plan: possibly related to mestinon. acetylcholine esterase inhibitor does not appear related to mg exacerbation concerned about vasovagal episodes as well with the high level of stress she has recurrent, monthly admissions here and elsewhere rec orthostatics tele watch her on current dose of mestinon ivf social work program coordinator regarding living situation. she may need to live in a snf (2) Myasthenia ICD Codes: G70.00 - Myasthenia Status: Chronic (3) Chronic pain ICD Codes: G89.29 - Chronic pain Status: Chronic (4) Narcotic dependence ICD Codes: F19.20 - Narcotic dependence Status: Chronic (5) Anxiety and depression ICD Codes: F41.9 - Anxiety disorder, unspecified; F32.9 - Major depressive disorder, single episode, unspecified Status: Chronic Artie Vizcarra MD Aug 24, 2017 08:29
[2017-08-24 08:56] LABS: BACTERIA, URINE MOD /hpf; BLOOD, URINE SMALL (NEG); GLUCOSE,URINE NEG (NEG); HYALINE CAST, URINE 4 /lpf (RARE); KETONE, URINE NEG (NEG); MUCUS URINE MANY /lpf (OCC); NITRITE,URINE NEG (NEG); PH, URINE 6.5 (5.0-8.5); SQUAMOUS EPITHELIAL CELL URINE 29 /hpf (0-5); TRANSITIONAL EPI CELLS, URINE <1 /hpf; URINE COLOR YELLOW (YELLW/STRAW)
[2017-08-24 08:57] LABS: COMMENT (UR) CULTURE INDICATED; CULTURE IF INDICATED CULTURE INDICATED
[2017-08-24] MEDS: SODIUM CHLORIDE 0.9% FLUSH 10 ML FLUSH IV FLUSH SCH ×2 (09:00→20:59)
--- NOTE | 2017-08-24 09:07 | MB ---
cc: LOVE DOMINGUEZ M.D. DATE OF CONSULTATION: 08/24/2017 REASON FOR CONSULTATION Syncope, bradycardia. HISTORY OF PRESENT ILLNESS The patient is a 42-year-old white female with a history of myasthenia gravis, migraine headaches, avascular necrosis of the right hip, who presented to the hospital with increasing weakness and unsteady gait. The patient states sometime late last night she got up from the couch to go to the bathroom and at some point when returning from the bathroom she may have lost consciousness, falling to the ground. She cannot recall any preceding lightheadedness or nausea. Recently she has had progressively worsening and severe right hip pain and she has had a number of falls due to this pain as well as her myasthenia gravis. She denies chest pain, shortness of breath, palpitations, pedal edema, paroxysmal nocturnal dyspnea. In the last few days she has noted transient lightheadedness usually upon standing. She reports fairly good oral intake recently. PAST MEDICAL HISTORY 1. Myasthenia gravis. 2. Migraine headaches. 3. Avascular necrosis of the right hip. PAST SURGICAL HISTORY 1. Tonsillectomy. 2. Thymectomy. 3. Tubal ligation. MEDICATIONS Her current cardiac medications are none. ALLERGIES 1. PENICILLIN. 2. PROMETHAZINE. FAMILY HISTORY There is no family history of early myocardial infarction. SOCIAL HISTORY The patient quit smoking recently. She had been smoking a half pack of cigarettes per day for approximately 20 years. She denies alcohol abuse. REVIEW OF SYSTEMS As in the history of present illness, otherwise negative or noncontributory. She denies abdominal pain, melena, dyspepsia, bright red blood per rectum, diarrhea, fevers. PHYSICAL EXAMINATION VITAL SIGNS: Blood pressure 121/72 with a pulse of 65, respirations 16. GENERAL: In general she is a well-developed, well-nourished white female in no acute distress. HEENT/NECK: Jugular venous pressure is normal. Carotid pulses are 2+ bilaterally and without bruits. CHEST: Examination of the chest reveals clear lung torres. CARDIAC: On cardiac examination she has a regular rhythm and rate without S3, S4, or murmur. ABDOMEN: On abdominal examination she has a soft, nontender abdomen. Bowel sounds are present. There is no definite hepatosplenomegaly. EXTREMITIES: Examination of extremities reveals no clubbing, cyanosis or edema. LABORATORY Laboratory data includes WBC 10.7, hemoglobin 12.0, platelets 474, potassium 3.1, BUN 5, creatinine 0.61, troponin 0.02. EKG EKG shows sinus bradycardia, bilateral atrial abnormality. IMPRESSION Possible syncope, bradycardia this morning (sinus bradycardia) in this 42-year-old white female with a history of myasthenia gravis, migraine headaches, avascular necrosis of the right hip. The bradycardia this morning, with heart rate as low as 39, appears to have occurred when she was sleeping. At this time her heart rate is in the 60s. There has been no evidence for high-degree AV block. She has reported recent lightheadedness, although much of this appears to be orthostatic in nature. The patient is on no A-V jackie suppressing medications. RECOMMENDATIONS 1. Continue to monitor. Would not recommend permanent pacemaker implantation unless she develops high-degree AV block or definitive correlation between symptoms and bradycardia. 2. Should she have recurrent unexplained syncope in the future, consider implantation of a loop recorder. Love Dominguez MD GHMelvin/PEDRO /8:46 AM /9:04 AM MTDCrescencio
--- NOTE | 2017-08-24 09:30 | RADRPT ---
EXAM DATE/TIME: 08/24/2017 08:02 [facility] COMPARISON: No previous studies available for comparison. INDICATIONS : Syncope. MEDICAL HISTORY : Myasthenia gravis. Migraines. Dyspena. Anemia. Depression. Anxiety. C-diff. SURGICAL HISTORY : Tonsillectomy. Hysterectomy. Tubal ligation. D&C. Thymus removed. Left chest port. Blood transfusions . ENCOUNTER: Initial ACUITY: 2 days PAIN SCORE: 10/10 LOCATION: Bilateral neck PEAK SYSTOLIC VELOCITIES (cm/sec): ICA/CCA RATIO: Right: 0.9 Left: 0.9 ICA: Right: 81 Left: 75 CCA: Right: 89 Left: 87 ECA: Right: 50 Left: 57 VERTEBRAL: Right: 37 antegrade Left: 43 antegrade Elevated flow velocities and ICA/CCA ratios have been found to correlate with increased degrees of vessel stenosis, calculated as percentage of diameter relative to a normal segment of distal ICA/CCA FINDINGS: RIGHT CAROTID: No significant stenosis is visualized. The waveforms are within normal limits. LEFT CAROTID: No significant stenosis is visualized. The waveforms are within normal limits. VERTEBRAL ARTERIES: Antegrade flow is seen in both vertebral arteries. MISCELLANEOUS: None. CONCLUSION: Normal examination. Pilo Starr Jr., MD on August 24, 2017 at 9:18 Board Certified Radiologist. This report was verified electronically.
[2017-08-24] MEDS: CITALOPRAM HYDROBROMIDE 40 MG TAB PO SCH (09:48)
[2017-08-24] MEDS: predniSONE 10 MG TAB PO SCH (09:48)
[2017-08-24] MEDS ORDERED: KETOROLAC TROMETHAMINE 30 MG/ML (IVP) VIAL IV PUSH PRN (10:00)
--- NOTE | 2017-08-24 10:01 | HHI.HP ---
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 Patient came to the hospital with a syncopal episode at home. She reports at least 3 episodes over the last 2 days of falling and 2 episodes of "blacking out". She reports weakness and tremor worse. She has underlying myasthenia gravis and has recently begun decreasing her steroids per her neurologist. She says she's been dizzy with waves of worsening dizziness prior to her falling out. She has been bradycardic on telemetry. She notes no chest pain or shortness of breath. She's not had any fevers. She reports urinary incontinence and bowel frequency which is not new for her. She has abnormal urinalysis as well as hypokalemia found on exam. Patient is not ambulatory due to increasing pain of her right hip which is 10 out of 10 and improved with Lortab. She is recommended for further evaluation and treatment by the ER. Review of Systems Constitutional: COMPLAINS OF: Fatigue, Dizziness, DENIES: Diaphoretic episodes , Fever, Weight gain, Weight loss, Chills, Change in appetite, Night Sweats Endocrine: DENIES: Abnorml menstrual pattern, Heat/cold intolerance, Polydipsia , Polyuria, Polyphagia Eyes: DENIES: Blurred vision, Diplopia, Eye inflammation, Eye pain, Vision loss , Photosensitivity, Double Vision Ears, nose, mouth, throat: DENIES: Tinnitus, Hearing loss, Vertigo, Nasal discharge, Oral lesions, Throat pain, Hoarseness, Ear Pain, Running Nose, Epistaxis, Sinus Pain, Toothache, Odynophagia Respiratory: DENIES: Apneas, Cough, Snoring, Wheezing, Hemoptysis, Sputum production, Shortness of breath Cardiovascular: DENIES: Chest pain, Palpitations, Syncope, Dyspnea on Exertion , PND, Lower Extremity Edema, Orthopnea, Claudication Gastrointestinal: DENIES: Abdominal pain, Black stools, Bloody stools, Constipation, Diarrhea, Nausea, Vomiting, Difficulty Swallowing, Anorexia Genitourinary: DENIES: Abnormal vaginal bleeding, Dysmenorrhea, Dyspareunia, Sexual dysfunction, Urinary frequency, Urinary incontinence, Urgency, Hematuria , Dysuria, Nocturia, Vaginal discharge Musculoskeletal: COMPLAINS OF: Joint pain, Back pain, DENIES: Muscle aches, Stiffness, Joint Swelling, Neck pain Integumentary: DENIES: Abnormal pigmentation, Pruritus, Rash, Nail changes, Breast masses, Breast skin changes, Nipple discharge Hematologic/lymphatic: DENIES: Bruising, Lymphadenopathy Immunologic/allergic: DENIES: Eczema, Urticaria Neurologic: COMPLAINS OF: Abnormal gait (secondary to chronic hip and back pain ), DENIES: Headache, Localized weakness, Paresthesias, Seizures, Speech Problems , Tremor, Poor Balance Psychiatric: COMPLAINS OF: Depression (without suicidal ideation), DENIES: Anxiety, Confusion, Mood changes, Hallucinations, Agitation, Suicidal Ideation, Homicidal Ideation, Delusions Except as stated in HPI: all other systems reviewed are Neg Past Family Social History Past Medical History Myasthenia gravis Anxiety/depression Past Surgical History tubal ligation Thymectomy Reported Medications reviewed in the EMR, recently decreasing her steroids per her neurologist (Dr. oviedo) Allergies: Coded Allergies: penicillin G (Unverified Allergy, Severe, Anaphylaxis, 07/28/17) promethazine (Unverified Adverse Reaction, Severe, NAUSEOUS, 07/28/17) Active Ordered Medications Reviewed in the EMR Family History Hypertension Pancreatic cancer Social History Quit smoking about a month ago to compare for her hip surgery per her orthopedist (Dr. Baron) ( Lives with her No alcohol Physical Exam Vital Signs Vital Signs Date Time Temp Pulse Resp B/P (MAP) Pulse Ox O2 Delivery O2 Flow Rate FiO2 08/24/17 05:44 16 08/24/17 05:09 65 16 121/72 (88) 99 08/24/17 03:52 98 Room Air 08/24/17 03:52 98 08/24/17 03:00 97.9 66 117/69 (85) 98 Physical Exam GENERAL: This is a well-nourished, well-developed patient, tearful and complaining of right hip pain SKIN: No rashes, ecchymoses or lesions. Cool and dry. HEAD: Atraumatic. Normocephalic. No temporal or scalp tenderness. EYES: Pupils equal round and reactive. Extraocular motions intact. No scleral icterus. No injection or drainage. ENT: Nose without bleeding, purulent drainage or septal hematoma. Throat without erythema, tonsillar hypertrophy or exudate. Uvula midline. Airway patent. NECK: Trachea midline. No JVD or lymphadenopathy. Supple, nontender, no meningeal signs. CARDIOVASCULAR: Regular rate and rhythm without murmurs, gallops, or rubs. RESPIRATORY: Clear to auscultation. Breath sounds equal bilaterally. No wheezes , rales, or rhonchi. GASTROINTESTINAL: Abdomen soft, non-tender, nondistended. No hepato-splenomegaly , or palpable masses. No guarding. MUSCULOSKELETAL: Pain on right hip, otherwise 3 Extremities without clubbing, cyanosis, or edema. I do not appreciate any effusion, or edema. No calf tenderness. Negative Homans sign bilaterally. NEUROLOGICAL: Awake and alert. Cranial nerves II through XII intact. Motor and sensory grossly within normal limits. Five out of 5 muscle strength in all muscle groups. Normal speech. Laboratory Laboratory Tests Test 08/24/17 03:25 08/24/17 03:30 08/24/17 08:15 White Blood Count 10.7 Red Blood Count 4.35 Hemoglobin 12.0 Hematocrit 35.4 Mean Corpuscular Volume 81.3 Mean Corpuscular Hemoglobin 27.6 Mean Corpuscular Hemoglobin Concent 33.9 Red Cell Distribution Width 18.0 Platelet Count 474 Mean Platelet Volume 8.7 Neutrophils (%) (Auto) 74.2 Lymphocytes (%) (Auto) 18.2 Monocytes (%) (Auto) 5.4 Eosinophils (%) (Auto) 1.4 Basophils (%) (Auto) 0.8 Neutrophils # (Auto) 7.9 Lymphocytes # (Auto) 1.9 Monocytes # (Auto) 0.6 Eosinophils # (Auto) 0.1 Basophils # (Auto) 0.1 CBC Comment DIFF FINAL Differential Comment Blood Urea Nitrogen 5 Creatinine 0.61 Random Glucose 142 Calcium Level 8.7 Sodium Level 138 Potassium Level 3.1 Chloride Level 109 Carbon Dioxide Level 27.7 Anion Gap 1 Estimat Glomerular Filtration Rate 108 Troponin I 0.02 Urine Color YELLOW Urine Turbidity CLOUDY Urine pH 6.5 Urine Specific [place] 1.020 Urine Protein 100 Urine Glucose (UA) NEG Urine Ketones NEG Urine Occult Blood SMALL Urine Nitrite NEG Urine Bilirubin NEG Urine Urobilinogen 4.0 Urine Leukocyte Esterase NEG Urine RBC 3 Urine WBC 5 Urine Squamous Epithelial Cells 29 Urine Transitional Epithelial Cells <1 Urine Bacteria MOD Urine Hyaline Casts 4 Urine Mucus MANY Microscopic Urinalysis Comment CULTURE INDICATED Date/Time Source Procedure Growth Status 08/24/17 08:15 Urine Clean Catch Urine Culture Pending Received Result Diagram: 08/24/17 0325 08/24/17 0330 Imaging Last Impressions Hip and Pelvis X-Ray 08/24/17257 Signed Impressions: Service Date/Time: Thursday, August 24, 2017 03:42 - CONCLUSION: Flattening of the right hip consistent with AVN. No acute fracture seen. Ashok Beach MD Head CT 08/24/17 0258 Signed Impressions: Service Date/Time: Thursday, August 24, 2017 03:37 - CONCLUSION: Normal examination. Ashok Beach MD Carotid Artery Ultrasound 08/24/17 0000 Signed Impressions: Service Date/Time: Thursday, August 24, 2017 08:02 - CONCLUSION: Normal examination. Pilo Starr Jr., MD [place] VTE Risk Assessment Caprini VTE Risk Assessment: Mod/High Risk (score >= 2) Caprini Risk Assessment Model Point Value = 1 Point Value = 2 Point Value = 3 Point Value = 5 Age 41-60 Minor surgery BMI > 25 kg/m2 Swollen legs Varicose veins or History of unexplained or recurrent spontaneous Oral contraceptives or hormone replacement Sepsis (< 1 month) Serious lung disease, including pneumonia (< 1 month) Abnormal pulmonary function Acute myocardial infarction Congestive heart failure (< 1 month) History of inflammatory bowel disease Medical patient at bed rest Age 61-74 Arthroscopic surgery Major open surgery (> 45 min) Laparoscopic surgery (> 45 min) Malignancy Confined to bed (> 72 hours) Immobilizing plaster cast Central venous access Age >= 75 History of VTE Family history of VTE Factor V Leiden Prothrombin [id number] Lupus anticoagulant Anticardiolipin antibodies Elevated serum homocysteine Heparin-induced thrombocytopenia Other congenital or acquired thrombophilia Stroke (< 1 month) Elective arthroplasty Hip, pelvis, or leg fracture Acute spinal cord injury (< 1 month) Prophylaxis Regimen Total Risk Factor Score Risk Level Prophylaxis Regimen 0-1 Low Early ambulation 2 Moderate Order ONE of the following: *Sequential Compression Device (SCD) *Heparin 5000 units SQ BID 3-4 Higher Order ONE of the following medications: *Heparin 5000 units SQ TID *Enoxaparin/Lovenox 40 mg SQ daily (WT < 150 kg, CrCl > 30 mL/min) *Enoxaparin/Lovenox 30 mg SQ daily (WT < 150 kg, CrCl > 10-29 mL/min) *Enoxaparin/Lovenox 30 mg SQ BID (WT < 150 kg, CrCl > 30 mL/min) AND/OR *Sequential Compression Device (SCD) 5 or more Highest Order ONE of the following medications: *Heparin 5000 units SQ TID (Preferred with Epidurals) *Enoxaparin/Lovenox 40 mg SQ daily (WT < 150 kg, CrCl > 30 mL/min) *Enoxaparin/Lovenox 30 mg SQ daily (WT < 150 kg, CrCl > 10-29 mL/min) *Enoxaparin/Lovenox 30 mg SQ BID (WT < 150 kg, CrCl > 30 mL/min) AND *Sequential Compression Device (SCD) Assessment and Plan Problem List: (1) Syncope ICD Code: R55 - Syncope and collapse Status: Acute Plan: Patient with multiple falls over the last 2 days. Continue with rehabilitation evaluation replace electrolytes Follow on telemetry Cardiology evaluation appreciated, no indication for pacemaker at this time Echo pending Treat urinary infection (2) Myasthenia ICD Code: G70.00 - Myasthenia Status: Chronic Plan: Patient will continue with prednisone and Mestinon dosed per neurology Continue with rehabilitation efforts as pain allows Evaluated for home health nurses rehabilitation (3) Chronic pain ICD Code: G89.29 - Chronic pain Status: Chronic Plan: resume Lortab toradol prn (4) Anxiety and depression ICD Code: F41.9 - Anxiety disorder, unspecified; F32.9 - Major depressive disorder, single episode, unspecified Status: Chronic Plan: We'll continue with patient's home Celexa and Xanax as needed We'll lower the dose of Xanax due to patient's syncopal episodes as this medication may be problematic (5) Bradycardia ICD Code: R00.1 - Bradycardia, unspecified Status: Acute Plan: Heart rate in the 60s and patient comfortable We'll consider outpatient follow-up Cardiology evaluation appreciated (6) Hypokalemia ICD Code: E87.6 - Hypokalemia Status: Acute Plan: Will replace and follow magnesium Assessment and Plan plan of care to be determined by Hospital course Code Status Full code Discussed Condition With Patient Physician Certification 2 Midnight Certification Type: Admission for Inpatient Services Order for Inpatient Services The services are ordered in accordance with Medicare regulations or non- Medicare payer requirements, as applicable. In the case of services not specified as inpatient-only, they are appropriately provided as inpatient services in accordance with the 2-midnight benchmark. Estimated LOS (days): 3 3 days is the estimated time the patient will need to remain in the hospital, assuming treatment plan goals are met and no additional complications. Post-Hospital Plan: Not yet determined Geni Rojas MD Aug 24, 2017 10:01
[2017-08-24] MEDS: PYRIDOSTIGMINE BROMIDE 60 MG TAB PO SCH ×2 (10:05→17:35)
[2017-08-24] MEDS: ACETAMINOPHEN/HYDROcodone 325 MG/10 MG TAB PO PRN ×3 (10:52→23:36)
[2017-08-24] MEDS: ALPRAZolam 1 MG TAB PO PRN ×2 (12:50→18:33)
[2017-08-24] MEDS: LEVOFLOXACIN 750 MG PREMIX INJ 150 ML IV SCH (12:50)
[2017-08-24] MEDS: HEPARIN SODIUM - SQ 10,000 UNITS/ML VIAL SQ SCH ×2 (14:00→22:00)
--- NOTE | 2017-08-24 14:07 | EKG ---
Date Performed: 08/24/2017 Time Performed: 04:03:51 PTAGE: 42 years EKG: SINUS BRADYCARDIA POSSIBLE RIGHT ATRIAL ENLARGEMENT LEFT ATRIAL ENLARGEMENT MINIMAL ST DEPR ESSION ABNORMAL ECG NO PREVIOUS TRACING DOCTOR: Cesar Montgomery Interpretating Date/Time 08/24/2017 14:03:37
[2017-08-24] MEDS: KETOROLAC TROMETHAMINE 30 MG/ML (IVP) VIAL IV PUSH SCH ×2 (16:01→22:06)
[2017-08-24] MEDS: AMITRIPTYLINE HCL 25 MG TAB PO SCH (20:58)
[2017-08-25] VITALS (13 sets, daily range): BP systolic 70–149; BP diastolic 34–78; PULSE 42–66; RESP 14–20; TEMP 98–98.8; O2SAT 97–99
[2017-08-25] MEDS: PYRIDOSTIGMINE BROMIDE 60 MG TAB PO SCH ×3 (02:02→17:43)
[2017-08-25] MEDS: KETOROLAC TROMETHAMINE 30 MG/ML (IVP) VIAL IV PUSH SCH ×2 (04:29→09:17)
[2017-08-25] MEDS: HEPARIN SODIUM - SQ 10,000 UNITS/ML VIAL SQ SCH ×3 (06:00→21:18)
[2017-08-25 06:23] LABS: AUTOMATED NEUTROPHIL # 4.9 TH/MM3 (1.8-7.7); BASOPHIL % 0.6 % (0.0-2.0); EOSINOPHIL # 0.1 TH/MM3 (0-0.4); EOSINOPHIL % 1.7 % (0.0-4.0); HEMATOCRIT 33.3 % (35.0-46.0); HEMO FLAGS DIFF FINAL; LYMPH % 29.2 % (9.0-44.0); LYMPHOCYTE # 2.3 TH/MM3 (1.0-4.8); MEAN CELL VOLUME 82.3 FL (80.0-100.0); MEAN CORPUSCULAR HEMOGLOBIN 26.8 PG (27.0-34.0); MEAN CORPUSCULAR HGB CONC 32.6 % (32.0-36.0); MONO % 6.9 % (0.0-8.0); NEUT % 61.6 % (16.0-70.0); PLATELET COUNT 346 TH/MM3 (150-450); RED BLOOD COUNT 4.05 MIL/MM3 (4.00-5.30); RED CELL DISTRIBUTION WIDTH 17.8 % (11.6-17.2)
[2017-08-25] MEDS: ALPRAZolam 1 MG TAB PO PRN ×3 (06:31→20:16)
[2017-08-25 06:41] LABS: BICARBONATE 27.2 MEQ/L (21.0-32.0); POTASSIUM 3.4 MEQ/L (3.5-5.1)
--- NOTE | 2017-08-25 08:07 | PD.CARD.PN ---
Subjective Subjective Remarks No dizziness, dyspnea, pain. Feeling somewhat stronger. Objective Medications Item Value Date Time Heparin Sodium 5,000 units 08/24/17 1400 (Porcine) Q8HR/SQ (Heparin Inj) Current Medications Medications (Trade) Dose Ordered Sig/Gómez Route Start Time Stop Time Status Last Admin (Elavil) 25 mg HS PO 08/24/17 21:00 08/24/17 20:58 (CeleXA) 40 mg DAILY PO 08/24/17 09:00 08/24/17 09:48 (Deltasone) 15 mg DAILY PO 08/24/17 09:00 08/24/17 09:48 (NS Flush) 2 ml UNSCH PRN IV FLUSH 08/24/17 06:00 (NS Flush) 2 ml BID IV FLUSH 08/24/17 09:00 08/24/17 20:59 (Mestinon) 60 mg Q8H PO 08/24/17 10:00 08/25/17 02:02 (Xanax) 1 mg Q6H PRN PO 08/24/17 09:45 08/25/17 06:31 ([place] 10-325 Mg) 1 tab Q6H PRN PO 08/24/17 09:45 08/24/17 23:36 Levofloxacin/ Dextrose 150 ml @ 100 mls/hr Q24H IV 08/24/17 10:00 08/24/17 12:50 (Heparin Inj) 5,000 units Q8HR SQ 08/24/17 14:00 (Toradol Inj) 30 mg Q6H IV PUSH 08/24/17 16:00 08/25/17 04:29 Vital Signs / I&O Vital Signs Date Time Temp Pulse Resp B/P (MAP) Pulse Ox O2 Delivery O2 Flow Rate FiO2 08/25/17 06:00 43 08/25/17 05:35 14 08/25/17 05:00 48 08/25/17 04:00 42 08/25/17 03:00 42 08/25/17 03:00 98.1 47 14 149/78 (101) 98 08/25/17 02:00 44 08/25/17 01:00 42 08/25/17 00:49 14 08/24/17 23:04 45 08/24/17 23:00 98.1 44 16 141/82 (101) 99 08/24/17 22:40 52 08/24/17 21:47 54 08/24/17 20:15 42 08/24/17 20:15 98.0 45 16 134/78 (96) 99 08/24/17 19:20 40 08/24/17 18:00 38 08/24/17 17:00 46 08/24/17 16:00 48 08/24/17 15:00 97.7 49 18 110/70 (83) 100 08/24/17 15:00 61 08/24/17 14:00 49 08/24/17 13:00 46 08/24/17 12:00 43 08/24/17 10:36 97.7 48 16 98/51 (67) 100 08/24/17 09:42 56 15 106/78 (87) 95 I/O 08/24/17 08/24/17 08/24/17 08/25/17 08/25/17 08/25/17 07:00 15:00 23:00 07:00 15:00 23:00 Intake Total 1000 ml 597 ml 720 ml Output Total 495 ml 1325 ml Balance 1000 ml 102 ml -605 ml Intake Oral 480 ml 720 ml IV Total 1000 ml 117 ml Output Urine Total 495 ml 1325 ml # Bowel Movements 0 Physical Exam GENERAL: Well developed, well nourished. No acute distress. HEENT: Jugular venous pressure is normal. CHEST: Lungs clear to auscultation bilaterally. Unlabored respiratory effort. CARDIAC: Bradycardic regular rhythm without S3, S4, or murmur. ABDOMEN: Soft, nontender, no hepatosplenomegaly. Bowel sounds present. EXTREMITIES: No clubbing, cyanosis, or edema. Laboratory Laboratory Tests Test 08/24/17 08:15 08/25/17 05:55 Urine Color YELLOW Urine Turbidity CLOUDY Urine pH 6.5 Urine Specific [place] 1.020 Urine Protein 100 mg/dL Urine Glucose (UA) NEG mg/dL Urine Ketones NEG mg/dL Urine Occult Blood SMALL Urine Nitrite NEG Urine Bilirubin NEG Urine Urobilinogen 4.0 MG/DL Urine Leukocyte Esterase NEG Urine RBC 3 /hpf Urine WBC 5 /hpf Urine Squamous Epithelial Cells 29 /hpf Urine Transitional Epithelial Cells <1 /hpf Urine Bacteria MOD /hpf Urine Hyaline Casts 4 /lpf Urine Mucus MANY /lpf Microscopic Urinalysis Comment CULTURE INDICATED White Blood Count 8.0 TH/MM3 Red Blood Count 4.05 MIL/MM3 Hemoglobin 10.9 GM/DL Hematocrit 33.3 % Mean Corpuscular Volume 82.3 FL Mean Corpuscular Hemoglobin 26.8 PG Mean Corpuscular Hemoglobin Concent 32.6 % Red Cell Distribution Width 17.8 % Platelet Count 346 TH/MM3 Mean Platelet Volume 8.7 FL Neutrophils (%) (Auto) 61.6 % Lymphocytes (%) (Auto) 29.2 % Monocytes (%) (Auto) 6.9 % Eosinophils (%) (Auto) 1.7 % Basophils (%) (Auto) 0.6 % Neutrophils # (Auto) 4.9 TH/MM3 Lymphocytes # (Auto) 2.3 TH/MM3 Monocytes # (Auto) 0.6 TH/MM3 Eosinophils # (Auto) 0.1 TH/MM3 Basophils # (Auto) 0.0 TH/MM3 CBC Comment DIFF FINAL Differential Comment Blood Urea Nitrogen 4 MG/DL Creatinine 0.52 MG/DL Random Glucose 117 MG/DL Calcium Level 8.5 MG/DL Sodium Level 139 MEQ/L Potassium Level 3.4 MEQ/L Chloride Level 108 MEQ/L Carbon Dioxide Level 27.2 MEQ/L Anion Gap 4 MEQ/L Estimat Glomerular Filtration Rate 130 ML/MIN Assessment and Plan Problem List: (1) Bradycardia ICD Codes: R00.1 - Bradycardia, unspecified Status: Chronic Plan: Cardiac status stable overnight. No recurrent syncope. HR's high 30's while asleep, 40's-50's when awake. No evidence for high degree AV block. Overall doubt patient will significantly benefit from pacemaker therapy. REC ambulate, observe for symptoms, monitor HR with exertion Code Status full code Discussed Condition With patient Jono Iglesias MD Aug 25, 2017 08:07
[2017-08-25] MEDS: CITALOPRAM HYDROBROMIDE 40 MG TAB PO SCH (09:00)
[2017-08-25] MEDS: predniSONE 10 MG TAB PO SCH (09:17)
[2017-08-25] MEDS: SODIUM CHLORIDE 0.9% FLUSH 10 ML FLUSH IV FLUSH SCH ×2 (09:18→20:17)
[2017-08-25] MEDS: LEVOFLOXACIN 750 MG PREMIX INJ 150 ML IV SCH (10:57)
[2017-08-25] MEDS: ACETAMINOPHEN/HYDROcodone 325 MG/10 MG TAB PO PRN ×3 (10:57→23:58)
[2017-08-25] MEDS ORDERED: POTASSIUM CHLORIDE 10 MEQ CONTROLLED RELEASE TAB PO ONE (12:00)
--- NOTE | 2017-08-25 12:00 | HHI.PR ---
Subjective Remarks Patient seen and evaluated today in follow-up for syncopal episodes 3 in for persistent bradycardia with symptoms. Feels a bit better as far as her pain is controlled the right hip. She did have episode of dizziness and lightheadedness while a bleeding in her room. Her heart rate has been in the 40s Objective Vital Signs Date Time Temp Pulse Resp B/P (MAP) Pulse Ox O2 Delivery O2 Flow Rate FiO2 08/25/17 06:00 43 08/25/17 05:35 14 08/25/17 05:00 48 08/25/17 04:00 42 08/25/17 03:00 42 08/25/17 03:00 98.1 47 14 149/78 (101) 98 08/25/17 02:00 44 08/25/17 01:00 42 08/25/17 00:49 14 08/24/17 23:04 45 08/24/17 23:00 98.1 44 16 141/82 (101) 99 08/24/17 22:40 52 08/24/17 21:47 54 08/24/17 20:15 42 08/24/17 20:15 98.0 45 16 134/78 (96) 99 08/24/17 19:20 40 08/24/17 18:00 38 08/24/17 17:00 46 08/24/17 16:00 48 08/24/17 15:00 97.7 49 18 110/70 (83) 100 08/24/17 15:00 61 08/24/17 14:00 49 08/24/17 13:00 46 08/24/17 12:00 43 I/O 08/24/17 08/24/17 08/24/17 08/25/17 08/25/17 08/25/17 07:00 15:00 23:00 07:00 15:00 23:00 Intake Total 1000 ml 597 ml 720 ml Output Total 495 ml 1325 ml Balance 1000 ml 102 ml -605 ml Intake Oral 480 ml 720 ml IV Total 1000 ml 117 ml Output Urine Total 495 ml 1325 ml # Bowel Movements 0 Result Diagram: 08/25/1755408/25/17 0555 Objective Remarks GENERAL: This is a well-nourished, well-developed patient, in no apparent distress. CARDIOVASCULAR:sinus ewst without murmurs, gallops, or rubs. RESPIRATORY: Clear to auscultation. Breath sounds equal bilaterally. No wheezes , rales, or rhonchi. GASTROINTESTINAL: Abdomen soft, non-tender, nondistended. Normal active bowel sounds MUSCULOSKELETAL: Extremities without clubbing, cyanosis, or edema. NEURO: Alert & Oriented x4 to person, place, time, situation. Moves all ext x4 A/P Problem List: (1) Myasthenia exacerbation ICD Code: G70.01 - Myasthenia exacerbation Status: Acute Assessment & Plan: Continue Mestinon and prednisone Neurology following (2) Syncope ICD Code: R55 - Syncope and collapse Status: Acute Assessment & Plan: Patient with persistent bradycardia and possible concomitant vasovagal episodes Cardiology following Avoid beta blockers Discussed for improved documentation of orthostatic vital signs (3) Urinary tract infection ICD Code: N39.0 - Urinary tract infection, site not specified Status: Acute Assessment & Plan: Strep viridans Continue levofloxacin for 3 days for uncomfortable UTI (4) Avascular necrosis of bone of right hip ICD Code: M87.051 - Idiopathic aseptic necrosis of right femur Status: Acute Assessment & Plan: Pain improved with anti-inflammatory and narcotic We'll change IV Toradol to Celebrex Ambulate with assistance (5) Hypokalemia ICD Code: E87.6 - Hypokalemia Status: Acute Assessment & Plan: Replace and follow Geni Issa MD Aug 25, 2017 12:00
[2017-08-25] MEDS: CELECOXIB 100 MG CAP PO SCH ×2 (14:52→20:16)
[2017-08-25] MEDS: KETOROLAC TROMETHAMINE 30 MG/ML (IVP) VIAL IV PUSH PRN ×2 (14:54→21:27)
--- NOTE | 2017-08-25 17:01 | ECHRPT ---
Indication: Syncope CONCLUSIONS Normal left ventricular size. Wall thickness is measured at the upper limits of normal. The left ventricular systolic function is low normal with an estimated ejection fraction in the rang e of 50- 55%. Trace mitral valve regurgitation. There is mild tricuspid valve regurgitation. The estimated pulmonary arterial pressure is 30.4 mmHg. BP: 121 / 72 HR: 65 Rhythm: MEASUREMENTS (Male / Female) Normal Values Technical Quality:Good 2D ECHO LV Diastolic Diameter PLAX 4.1 cm 4.2 - 5.9 / 3.9 - 5.3 cm LV Systolic Diameter PLAX 2.9 cm IVS Diastolic Thickness 1.1 cm 0.6 - 1.0 / 0.6 - 0.9 cm LVPW Diastolic Thickness 0.8 cm 0.6 - 1.0 / 0.6 - 0.9 cm LV Relative Wall Thickness 0.5 RV Internal Dim ED PLAX 2.1 cm LA Systolic Diameter LX 3.3 cm 3.0 - 4.0 / 2.7 - 3.8 cm DOPPLER MR Peak Velocity 445.0 cm/s MR Peak Gradient 79.2 mmHg Mitral E Point Velocity 66.1 cm/s Mitral A Point Velocity 65.6 cm/s Mitral E to A Ratio 1.0 TR Peak Velocity 252.0 cm/s TR Peak Gradient 25.4 mmHg Right Atrial Pressure 5.0 mmHg Pulmonary Artery Systolic Pressu 30.4 mmHg Right Ventricular Systolic Press 30.4 mmHg FINDINGS LEFT VENTRICLE Normal left ventricular size. Wall thickness is measured at the upper limits of normal. The left ventricular systolic function is low normal with an estimated ejection fraction in the rang e of 50- 55%. RIGHT VENTRICLE Normal right ventricular size and systolic function. LEFT ATRIUM The left atrial size is normal. RIGHT ATRIUM The right atrial size is normal. ATRIAL SEPTUM Normal atrial septal thickness without atrial level shunting by limited color doppler interrogation. AORTA The aortic root and proximal ascending aorta are normal in size on limited imaging. MITRAL VALVE Trace mitral valve regurgitation. AORTIC VALVE Trileaflet aortic valve. No aortic valve stenosis or regurgitation. TRICUSPID VALVE There is mild tricuspid valve regurgitation. The estimated pulmonary arterial pressure is 30.4 mmHg. PULMONARY VALVE No pulmonary valve regurgitation or stenosis. VESSELS The inferior vena cava is normal in size. PERICARDIUM No pericardial effusion. Anthony Oro MD (Electronically Signed) Final Date:25 August 2017 17:00
[2017-08-25] MEDS: AMITRIPTYLINE HCL 25 MG TAB PO SCH (20:17)
[2017-08-26] VITALS (11 sets, daily range): BP systolic 63–95; BP diastolic 31–54; PULSE 52–79; RESP 16–20; TEMP 97.7–98.4; O2SAT 93–100
[2017-08-26] MEDS: PYRIDOSTIGMINE BROMIDE 60 MG TAB PO SCH ×3 (01:44→17:51)
[2017-08-26] MEDS: ALPRAZolam 1 MG TAB PO PRN ×4 (02:08→22:52)
[2017-08-26] MEDS: KETOROLAC TROMETHAMINE 30 MG/ML (IVP) VIAL IV PUSH PRN ×2 (04:08→10:11)
[2017-08-26 05:04] LABS: POTASSIUM 4.4 MEQ/L (3.5-5.1)
[2017-08-26] MEDS: HEPARIN SODIUM - SQ 10,000 UNITS/ML VIAL SQ SCH ×3 (06:00→22:00)
[2017-08-26] MEDS: ACETAMINOPHEN/HYDROcodone 325 MG/10 MG TAB PO PRN ×3 (07:36→19:05)
--- NOTE | 2017-08-26 08:21 | PD.CARD.PN ---
Subjective Subjective Remarks Unable to ambulate yesterday due to dizziness upon standing. One episode of pallor, near syncope white going to bathroom yesterday. Feels better this morning. No syncope, nausea. Objective Medications Item Value Date Time Heparin Sodium 5,000 units 08/24/17 1400 (Porcine) Q8HR/SQ (Heparin Inj) Current Medications Medications (Trade) Dose Ordered Sig/Gómez Route Start Time Stop Time Status Last Admin (Elavil) 25 mg HS PO 08/24/17 21:00 08/25/17 20:17 (CeleXA) 40 mg DAILY PO 08/24/17 09:00 08/24/17 09:48 (Deltasone) 15 mg DAILY PO 08/24/17 09:00 08/25/17 09:17 (NS Flush) 2 ml UNSCH PRN IV FLUSH 08/24/17 06:00 (NS Flush) 2 ml BID IV FLUSH 08/24/17 09:00 08/25/17 20:17 (Mestinon) 60 mg Q8H PO 08/24/17 10:00 08/26/17 01:44 (Xanax) 1 mg Q6H PRN PO 08/24/17 09:45 08/26/17 02:08 ([place] 10-325 Mg) 1 tab Q6H PRN PO 08/24/17 09:45 08/26/17 07:36 Levofloxacin/ Dextrose 150 ml @ 100 mls/hr Q24H IV 08/24/17 10:00 08/27/17 09:59 08/25/17 10:57 (Heparin Inj) 5,000 units Q8HR SQ 08/24/17 14:00 (Toradol Inj) 30 mg Q6H PRN IV PUSH 08/25/17 16:00 08/26/17 15:59 08/26/17 04:08 (CeleBREX) 100 mg BID PO 08/25/17 12:00 08/25/17 20:16 Vital Signs / I&O Vital Signs Date Time Temp Pulse Resp B/P (MAP) Pulse Ox O2 Delivery O2 Flow Rate FiO2 08/26/17 07:33 76/41 (53) 08/26/17 05:23 16 08/26/17 04:40 97.9 57 16 78/42 (54) 98 08/26/17 04:40 58 11/16/17 01:58 88/51 (63) Manual Cuff/Auscultation 08/26/17 01:16 16 08/26/17 00:24 98.4 54 16 78/41 (53) 98 70/40 (50) 08/26/17 00:00 55 08/25/17 20:24 70/34 (46) 08/25/17 20:22 98.4 55 20 75/43 (54) 98 08/25/17 20:15 98.4 55 20 75/43 (54) 98 70/34 (46) 86/54 (65) 08/25/17 20:05 49 08/25/17 16:50 98.0 60 16 105/66 (79) 99 08/25/17 12:52 98.5 64 18 110/62 (78) 99 I/O 08/25/17 08/25/17 08/25/17 08/26/17 08/26/17 08/26/17 07:00 15:00 23:00 07:00 15:00 23:00 Intake Total 720 ml 960 ml 1080 ml Output Total 1325 ml 625 ml Balance -605 ml 335 ml 1080 ml Intake Oral 720 ml 960 ml 1080 ml Output Urine Total 1325 ml 625 ml # Voids 1 3 # Bowel Movements 1 2 Physical Exam GENERAL: Well developed, well nourished. No acute distress. HEENT: Jugular venous pressure is normal. CHEST: Lungs clear to auscultation bilaterally. Unlabored respiratory effort. CARDIAC: Regular rhythm without S3, S4, or murmur. ABDOMEN: Soft, nontender, no hepatosplenomegaly. Bowel sounds present. EXTREMITIES: No clubbing, cyanosis, or edema. Laboratory Laboratory Tests Test 08/26/17 04:15 Blood Urea Nitrogen 10 MG/DL Creatinine 0.69 MG/DL Random Glucose 99 MG/DL Calcium Level 9.0 MG/DL Sodium Level 139 MEQ/L Potassium Level 4.4 MEQ/L Chloride Level 108 MEQ/L Carbon Dioxide Level 27.0 MEQ/L Anion Gap 4 MEQ/L Estimat Glomerular Filtration Rate 94 ML/MIN Assessment and Plan Problem List: (1) Bradycardia ICD Codes: R00.1 - Bradycardia, unspecified Status: Chronic Plan: Overall HR's trending upward. No severe bradycardia while asleep last night. Now with hypotension, unclear etiology. Also with orthostatic symptomatology. Patient does not appear dehydrated. No clear evidence for infection. ?from medications. No evidence for high degree AV block. Overall doubt patient will significantly benefit from pacemaker therapy. REC try again to ambulate once normotensive, observe for symptoms, monitor HR with exertion consider use of fludrocortisone Code Status full code Discussed Condition With patient Jono Iglesias MD Aug 26, 2017 08:21
--- NOTE | 2017-08-26 08:50 | HHI.PR ---
Review/Management Diagnosis/Plan: (1) Hypotension ICD Codes: I95.9 - Hypotension, unspecified Status: Acute Plan: add midodrine hydration/salt follow exam (2) Bradycardia ICD Codes: R00.1 - Bradycardia, unspecified Status: Chronic Plan: possibly related to mestinon. acetylcholine esterase inhibitor does not appear related to mg exacerbation concerned about vasovagal episodes as well with the high level of stress she has recurrent, monthly admissions here and elsewhere [facility] tele watch her on current dose of mestinon ivf social security benefits interviewer regarding living situation. she may need to live in a group home (3) Myasthenia ICD Codes: G70.00 - Myasthenia Status: Chronic Plan: stable (4) Chronic pain ICD Codes: G89.29 - Chronic pain Status: Chronic (5) Narcotic dependence ICD Codes: F19.20 - Narcotic dependence Status: Chronic (6) Anxiety and depression ICD Codes: F41.9 - Anxiety disorder, unspecified; F32.9 - Major depressive disorder, single episode, unspecified Status: Chronic Subjective Subjective Comments No acute events reported. followed by cardiology. hypotensive No headache No chest pain No dyspnea Active Medications Current Medications Medications (Trade) Dose Ordered Sig/Gómez Route Start Time Stop Time Status Last Admin (Elavil) 25 mg HS PO 08/24/17 21:00 08/25/17 20:17 (CeleXA) 40 mg DAILY PO 08/24/17 09:00 08/24/17 09:48 (Deltasone) 15 mg DAILY PO 08/24/17 09:00 08/25/17 09:17 (NS Flush) 2 ml UNSCH PRN IV FLUSH 08/24/17 06:00 (NS Flush) 2 ml BID IV FLUSH 08/24/17 09:00 08/25/17 20:17 (Mestinon) 60 mg Q8H PO 08/24/17 10:00 08/26/17 01:44 (Xanax) 1 mg Q6H PRN PO 08/24/17 09:45 08/26/17 02:08 ([place] 10-325 Mg) 1 tab Q6H PRN PO 08/24/17 09:45 08/26/17 07:36 Levofloxacin/ Dextrose 150 ml @ 100 mls/hr Q24H IV 08/24/17 10:00 08/27/17 09:59 08/25/17 10:57 (Heparin Inj) 5,000 units Q8HR SQ 08/24/17 14:00 (Toradol Inj) 30 mg Q6H PRN IV PUSH 08/25/17 16:00 08/26/17 15:59 08/26/17 04:08 (CeleBREX) 100 mg BID PO 08/25/17 12:00 08/25/17 20:16 Allergies Allergies Coded Allergies penicillin G (Unverified Allergy, Severe, Anaphylaxis, 07/28/17) promethazine (Unverified Adverse Reaction, Severe, NAUSEOUS, 07/28/17) Review of Systems All other ROS: ROS reviewed as documented in chart Exam I&O / VS Vital Signs Date Time Temp Pulse Resp B/P (MAP) Pulse Ox O2 Delivery O2 Flow Rate FiO2 08/26/17 07:33 76/41 (53) 08/26/17 05:23 16 08/26/17 04:40 97.9 57 16 78/42 (54) 98 08/26/17 04:40 58 08/26/17 01:58 88/51 (63) Manual Cuff/Auscultation 08/26/17 01:16 16 08/26/17 00:24 98.4 54 16 78/41 (53) 98 70/40 (50) 08/26/17 00:00 55 08/25/17 20:24 70/34 (46) 08/25/17 20:22 98.4 55 20 75/43 (54) 98 08/25/17 20:15 98.4 55 20 75/43 (54) 98 70/34 (46) 86/54 (65) 08/25/17 20:05 49 08/25/17 16:50 98.0 60 16 105/66 (79) 99 08/25/17 12:52 98.5 64 18 110/62 (78) 99 General: Alert and Oriented, No acute distress Eye: PERRL, EOMI, Normal conjuctiva Respiratory: Non-labored respirations Cardiology: Normal rate Musculoskeletal: ROM Neurologic: Alert, Oriented, Normal sensory, CN II-XII intact, Normal DTR's Psychiatric: Cooperative, Appropriate mood & affect, Normal judgement Exam Comments anxious, articulates without difficulty, eomi, mild ptosis, leslie to gravity 5/5 Objective Micro and Labs Laboratory Tests Test 08/26/17 04:15 Blood Urea Nitrogen 10 Creatinine 0.69 Random Glucose 99 Calcium Level 9.0 Sodium Level 139 Potassium Level 4.4 Chloride Level 108 Carbon Dioxide Level 27.0 Anion Gap 4 Estimat Glomerular Filtration Rate 94 Date/Time Source Procedure Growth Status 08/24/17 08:15 Urine Clean Catch Urine Culture - Final Viridans Streptococcus Grp Complete Artie Vizcarra MD Aug 26, 2017 08:50
[2017-08-26] MEDS: MIDODRINE 5 MG TAB PO SCH ×2 (09:30→12:42)
[2017-08-26] MEDS: CELECOXIB 100 MG CAP PO SCH ×2 (09:54→21:34)
[2017-08-26] MEDS: CITALOPRAM HYDROBROMIDE 40 MG TAB PO SCH (09:55)
[2017-08-26] MEDS: predniSONE 10 MG TAB PO SCH (09:55)
[2017-08-26] MEDS: SODIUM CHLORIDE 0.9% FLUSH 10 ML FLUSH IV FLUSH SCH ×2 (09:56→21:34)
[2017-08-26] MEDS: LEVOFLOXACIN 750 MG PREMIX INJ 150 ML IV SCH (10:13)
--- NOTE | 2017-08-26 12:24 | HHI.PR ---
Subjective Remarks Seen and evaluated in follow-up for continued dizziness and now with hypotension. Patient orthostatic Started on ProAmatine Complaining of diarrhea (watery loose frequent stools) several episodes daily with multiple hospitalizations Objective Vitals Vital Signs Date Time Temp Pulse Resp B/P (MAP) Pulse Ox O2 Delivery O2 Flow Rate FiO2 08/26/17 07:33 76/41 (53) 08/26/17 05:23 16 08/26/17 04:40 97.9 57 16 78/42 (54) 98 08/26/17 04:40 58 08/26/17 01:58 88/51 (63) Manual Cuff/Auscultation 08/26/17 01:16 16 08/26/17 00:24 98.4 54 16 78/41 (53) 98 70/40 (50) 08/26/17 00:00 55 08/25/17 20:24 70/34 (46) 08/25/17 20:22 98.4 55 20 75/43 (54) 98 08/25/17 20:15 98.4 55 20 75/43 (54) 98 70/34 (46) 86/54 (65) 08/25/17 20:05 49 08/25/17 16:50 98.0 60 16 105/66 (79) 99 08/25/17 12:52 98.5 64 18 110/62 (78) 99 I/O 08/25/17 08/25/17 08/25/17 08/26/17 08/26/17 08/26/17 07:00 15:00 23:00 07:00 15:00 23:00 Intake Total 720 ml 960 ml 1080 ml Output Total 1325 ml 625 ml Balance -605 ml 335 ml 1080 ml Intake Oral 720 ml 960 ml 1080 ml Output Urine Total 1325 ml 625 ml # Voids 1 3 # Bowel Movements 1 2 Result Diagram: 08/25/17 0555 08/26/17 0415 Objective Remarks GENERAL: This is a well-nourished, well-developed patient, dizziness CARDIOVASCULAR:sinus west without murmurs, gallops, or rubs. RESPIRATORY: Clear to auscultation. Breath sounds equal bilaterally. No wheezes , rales, or rhonchi. GASTROINTESTINAL: Abdomen soft, non-tender, nondistended. Normal active bowel sounds MUSCULOSKELETAL: Extremities without clubbing, cyanosis, or edema. NEURO: Alert & Oriented x4 to person, place, time, situation. Moves all ext x4 A/P Problem List: (1) Syncope ICD Code: R55 - Syncope and collapse Status: Acute Plan: Patient with multiple falls over the last 2 days. Continue with rehabilitation evaluation replace electrolytes Follow on telemetry Cardiology evaluation appreciated, no indication for pacemaker at this time Echo pending Treat urinary infection (2) Myasthenia ICD Code: G70.00 - Myasthenia Status: Chronic Plan: Patient will continue with prednisone and Mestinon dosed per neurology Continue with rehabilitation efforts as pain allows Evaluated for home health v snf (3) Chronic pain ICD Code: G89.29 - Chronic pain Status: Chronic Plan: ptn education Lortab/celebrex outpatient pain mgt per ptn (4) Anxiety and depression ICD Code: F41.9 - Anxiety disorder, unspecified; F32.9 - Major depressive disorder, single episode, unspecified Status: Chronic (5) Bradycardia ICD Code: R00.1 - Bradycardia, unspecified Status: Chronic Plan: Heart rate in the 50s and patient comfortable We'll consider outpatient follow-up Cardiology evaluation appreciated (6) Hypokalemia ICD Code: E87.6 - Hypokalemia Status: Acute Plan: trend and replace as needed (7) Diarrhea ICD Code: R19.7 - Diarrhea, unspecified Plan: Gen. multiple hospitalizations and high risk for C. difficile Rule out with stool studies and PCR IV hydration (8) Hypotension ICD Code: I95.9 - Hypotension, unspecified Status: Acute Plan: Etiology unclear, continue ProAmatine Discharge Planning home with [facility] when stable Geni Rojas MD Aug 26, 2017 12:24
--- NOTE | 2017-08-26 12:25 | HHI.FF ---
Face to Face Verification Diagnosis: (1) Weakness (2) Myasthenia gravis Physical Therapy Order: Evaluate and Treat, Improve ambulation, Strength and gait training Occupational Therapy Order: Evaluate and Treat, Improve ADL Home Health Nursing Order: Medical education Signs/symptoms of disease process I have seen patient Brionna Rodríguez on 08/26/17. My clinical findings support the need for the requested home health care services because: Deconditioned w/ increased weakness Med compliance is questionable I certify that my clinical findings support that this patient is homebound because: Unsteady gait/balance Geni Rojas MD Aug 26, 2017 12:25
[2017-08-26] MEDS: LACTOBACILLUS ACIDOPHILUS 1 GM PACKET PO SCH ×2 (13:00→16:24)
[2017-08-26] MEDS ORDERED: SODIUM CHLORID 0.9% 500 ML INJ 500 ML IV ONE (18:30)
[2017-08-26] MEDS: traMADol HCL 50 MG TAB PO PRN (19:04)
[2017-08-26 20:08] LABS: C. DIFF EPI 027 PRESUMPTIVE NEGATIVE (NEGATIVE)
[2017-08-26] MEDS: AMITRIPTYLINE HCL 25 MG TAB PO SCH (21:34)
[2017-08-26] MEDS ORDERED: TRIMETHOBENZAMIDE INJ 200 MG/2 ML VIAL IM PRN (21:45)
[2017-08-27] MEDS: PYRIDOSTIGMINE BROMIDE 60 MG TAB PO SCH ×2 (01:33→08:49)
[2017-08-27] MEDS: ACETAMINOPHEN/HYDROcodone 325 MG/10 MG TAB PO PRN ×2 (01:33→08:49)
[2017-08-27 01:41] VITALS: BP_SYST 64; BP_SYST 75; BP_DIAS 43; BP_DIAS 48; PULSE 113; RESP 18; TEMP 98.1; O2SAT 97
[2017-08-27 03:07] VITALS: PULSE 66
[2017-08-27 03:10] VITALS: BP 88/43; PULSE 63
[2017-08-27] MEDS ORDERED: SODIUM CHLORID 0.9% 500 ML INJ 500 ML IV ONE (04:00)
[2017-08-27] MEDS: MIDODRINE 5 MG TAB PO SCH (05:36)
[2017-08-27] MEDS: traMADol HCL 50 MG TAB PO PRN ×2 (05:36→12:38)
[2017-08-27 05:56] VITALS: BP 103/53; PULSE 58; RESP 18; TEMP 97.8; O2SAT 100
[2017-08-27] MEDS: HEPARIN SODIUM - SQ 10,000 UNITS/ML VIAL SQ SCH ×2 (05:56→10:37)
[2017-08-27 06:37] LABS: BICARBONATE 27.4 MEQ/L (21.0-32.0); POTASSIUM 4.2 MEQ/L (3.5-5.1)
--- NOTE | 2017-08-27 06:52 | HHI.PR ---
Review/Management Diagnosis/Plan: (1) Hypotension ICD Codes: I95.9 - Hypotension, unspecified Status: Acute Plan: dysautonomia? recs increase midodrine to tid sit upright after taking it hydration/salt rehab placement follow exam (2) Bradycardia ICD Codes: R00.1 - Bradycardia, unspecified Status: Chronic Plan: pulse fluctuating (3) Myasthenia ICD Codes: G70.00 - Myasthenia Status: Chronic Plan: stable (4) Chronic pain ICD Codes: G89.29 - Chronic pain Status: Chronic (5) Narcotic dependence ICD Codes: F19.20 - Narcotic dependence Status: Chronic (6) Anxiety and depression ICD Codes: F41.9 - Anxiety disorder, unspecified; F32.9 - Major depressive disorder, single episode, unspecified Status: Chronic Subjective Subjective Comments No acute events reported No headache No chest pain No dyspnea Active Medications Current Medications Medications (Trade) Dose Ordered Sig/Gómez Route Start Time Stop Time Status Last Admin (Elavil) 25 mg HS PO 08/24/17 21:00 08/26/17 21:34 (CeleXA) 40 mg DAILY PO 08/24/17 09:00 08/26/17 09:55 (Deltasone) 15 mg DAILY PO 08/24/17 09:00 08/26/17 09:55 (NS Flush) 2 ml UNSCH PRN IV FLUSH 08/24/17 06:00 (NS Flush) 2 ml BID IV FLUSH 08/24/17 09:00 08/26/17 21:34 (Mestinon) 60 mg Q8H PO 08/24/17 10:00 08/27/17 01:33 (Xanax) 1 mg Q6H PRN PO 08/24/17 09:45 08/26/17 22:52 ([place] 10-325 Mg) 1 tab Q6H PRN PO 08/24/17 09:45 08/27/17 01:33 Levofloxacin/ Dextrose 150 ml @ 100 mls/hr Q24H IV 08/24/17 10:00 08/27/17 09:59 08/26/17 10:13 (Heparin Inj) 5,000 units Q8HR SQ 08/24/17 14:00 (CeleBREX) 100 mg BID PO 08/25/17 12:00 08/26/17 21:34 (Proamatine) 5 mg BID@0700,1200 PO 08/26/17 09:30 08/27/17 05:36 (Lactinex Pkt) 1 gm TID PO 08/26/17 13:00 08/26/17 16:24 (Ultram) 50 mg Q8H PRN PO 08/26/17 18:30 08/27/17 05:36 (Tigan Inj) 200 mg Q6H PRN IM 08/26/17 21:45 08/26/17 22:52 Allergies Allergies Coded Allergies penicillin G (Unverified Allergy, Severe, Anaphylaxis, 07/28/17) promethazine (Unverified Adverse Reaction, Severe, NAUSEOUS, 07/28/17) Review of Systems All other ROS: ROS reviewed as documented in chart Exam I&O / VS Vital Signs Date Time Temp Pulse Resp B/P (MAP) Pulse Ox O2 Delivery O2 Flow Rate FiO2 08/27/17 05:56 97.8 58 18 103/53 (70) 100 08/27/17 03:10 63 88/43 (58) 08/27/17 03:07 66 08/27/17 01:41 98.1 113 18 64/43 (50) 97 75/48 (57) 75/48 (57) 08/26/17 21:17 97.9 57 18 95/54 (68) 99 08/26/17 20:07 52 08/26/17 16:00 97.7 57 20 86/48 (61) 97 63/31 (42) 63/36 (45) 08/26/17 15:37 57 08/26/17 14:40 16 08/26/17 12:47 97.9 60 16 86/47 (60) 100 08/26/17 09:52 98.1 79 16 75/41 (52) 93 08/26/17 07:33 76/41 (53) General: Alert and Oriented, No acute distress Eye: PERRL, EOMI, Normal conjuctiva Respiratory: Non-labored respirations Cardiology: Normal rate Musculoskeletal: ROM, Tenderness Neurologic: Alert, Oriented, Normal sensory, CN II-XII intact, Normal DTR's Psychiatric: Cooperative, Appropriate mood & affect, Normal judgement Exam Comments ox 3, breathing comfortably, articulates without difficulty completes full sentences, eomi, mild ptosis, leslie to gravity 5/5 Objective Micro and Labs Laboratory Tests Test 08/26/17 16:14 08/27/17 05:40 Stool C. difficile Toxin (PCR) NEGATIVE Stl C. difficile Toxin Epiderm 027 PRESUMPTIVE NEGATIVE Blood Urea Nitrogen 6 Creatinine 0.62 Random Glucose 75 Calcium Level 8.2 Sodium Level 139 Potassium Level 4.2 Chloride Level 111 Carbon Dioxide Level 27.4 Anion Gap 1 Estimat Glomerular Filtration Rate 106 Thyroid Stimulating Hormone 3rd Gen 5.130 Random Cortisol 2.0 Date/Time Source Procedure Growth Status 08/24/17 08:15 Urine Clean Catch Urine Culture - Final Viridans Streptococcus Grp Complete Artie Vizcarra MD Aug 27, 2017 06:52
[2017-08-27 08:00] VITALS: BP_SYST 92; BP_SYST 94; BP_DIAS 56; BP_DIAS 63; PULSE 58; PULSE 62; RESP 20; TEMP 98.5; O2SAT 99
[2017-08-27] MEDS: CITALOPRAM HYDROBROMIDE 40 MG TAB PO SCH (08:49)
[2017-08-27] MEDS: ALPRAZolam 1 MG TAB PO PRN (08:49)
[2017-08-27] MEDS: CELECOXIB 100 MG CAP PO SCH (08:49)
[2017-08-27] MEDS: LACTOBACILLUS ACIDOPHILUS 1 GM PACKET PO SCH ×2 (08:49→10:37)
[2017-08-27] MEDS: predniSONE 10 MG TAB PO SCH (08:49)
[2017-08-27] MEDS: SODIUM CHLORIDE 0.9% FLUSH 10 ML FLUSH IV FLUSH SCH (08:53)
--- NOTE | 2017-08-27 09:15 | PD.CARD.PN ---
Subjective Subjective Remarks Feeling better. No dizziness. No pain, dyspnea, palpitations. Slept well. Objective Medications Item Value Date Time Midodrine 7.5 mg 08/27/17 1200 (Proamatine) TID@0700,1200,1700/PO Current Medications Medications (Trade) Dose Ordered Sig/Gómez Route Start Time Stop Time Status Last Admin (Elavil) 25 mg HS PO 08/24/17 21:00 08/26/17 21:34 (CeleXA) 40 mg DAILY PO 08/24/17 09:00 08/27/17 08:49 (Deltasone) 15 mg DAILY PO 08/24/17 09:00 08/27/17 08:49 (NS Flush) 2 ml UNSCH PRN IV FLUSH 08/24/17 06:00 (NS Flush) 2 ml BID IV FLUSH 08/24/17 09:00 08/27/17 08:53 (Mestinon) 60 mg Q8H PO 08/24/17 10:00 08/27/17 08:49 (Xanax) 1 mg Q6H PRN PO 08/24/17 09:45 08/27/17 08:49 ([place] 10-325 Mg) 1 tab Q6H PRN PO 08/24/17 09:45 08/27/17 08:49 Levofloxacin/ Dextrose 150 ml @ 100 mls/hr Q24H IV 08/24/17 10:00 08/27/17 09:59 08/26/17 10:13 (Heparin Inj) 5,000 units Q8HR SQ 08/24/17 14:00 (CeleBREX) 100 mg BID PO 08/25/17 12:00 08/27/17 08:49 (Lactinex Pkt) 1 gm TID PO 08/26/17 13:00 08/27/17 08:49 (Ultram) 50 mg Q8H PRN PO 08/26/17 18:30 08/27/17 05:36 (Tigan Inj) 200 mg Q6H PRN IM 08/26/17 21:45 08/26/17 22:52 (Proamatine) 7.5 mg TID@0700,1200,1700 PO 08/27/17 12:00 Vital Signs / I&O Vital Signs Date Time Temp Pulse Resp B/P (MAP) Pulse Ox O2 Delivery O2 Flow Rate FiO2 08/27/17 08:00 58 08/27/17 05:56 97.8 58 18 103/53 (70) 100 08/27/17 03:10 63 88/43 (58) 08/27/17 03:07 66 08/27/17 01:41 98.1 113 18 64/43 (50) 97 75/48 (57) 75/48 (57) 08/26/17 21:17 97.9 57 18 95/54 (68) 99 08/26/17 20:07 52 08/26/17 16:00 97.7 57 20 86/48 (61) 97 63/31 (42) 63/36 (45) 08/26/17 15:37 57 08/26/17 14:40 16 08/26/17 12:47 97.9 60 16 86/47 (60) 100 08/26/17 09:52 98.1 79 16 75/41 (52) 93 I/O 08/26/17 08/26/17 08/26/17 08/27/17 08/27/17 08/27/17 07:00 15:00 23:00 07:00 15:00 23:00 Intake Total 1080 ml 1112 ml 500 ml Balance 1080 ml 1112 ml 500 ml Intake Oral 1080 ml 960 ml IV Total 152 ml 500 ml # Voids 3 6 # Bowel Movements 2 3 3 Physical Exam GENERAL: Well developed, well nourished. No acute distress. HEENT: Jugular venous pressure is normal. CHEST: Lungs clear to auscultation bilaterally. Unlabored respiratory effort. CARDIAC: Regular rhythm without S3, S4, or murmur. ABDOMEN: Soft, nontender, no hepatosplenomegaly. Bowel sounds present. EXTREMITIES: No clubbing, cyanosis, or edema. Laboratory Laboratory Tests Test 08/26/17 16:14 08/27/17 05:40 Stool C. difficile Toxin (PCR) NEGATIVE Stl C. difficile Toxin Epiderm 027 PRESUMPTIVE NEGATIVE Blood Urea Nitrogen 6 MG/DL Creatinine 0.62 MG/DL Random Glucose 75 MG/DL Calcium Level 8.2 MG/DL Sodium Level 139 MEQ/L Potassium Level 4.2 MEQ/L Chloride Level 111 MEQ/L Carbon Dioxide Level 27.4 MEQ/L Anion Gap 1 MEQ/L Estimat Glomerular Filtration Rate 106 ML/MIN Thyroid Stimulating Hormone 3rd Gen 5.130 uIU/ML Random Cortisol 2.0 MCG/DL Assessment and Plan Problem List: (1) Bradycardia ICD Codes: R00.1 - Bradycardia, unspecified Status: Chronic Plan: Clinically continues to improve. HR up to as high as 100 this morning. Dizziness episodes less frequent, less severe though has not yet ambulated. Continued episodic hypotension though normotensive now REC no new recommendations, continue midodrine, will f/u as needed Code Status full code Discussed Condition With patient Jono Iglesias MD Aug 27, 2017 09:15
--- NOTE | 2017-08-27 09:36 | HHI.PR ---
Subjective Remarks The patient is in bed, she appears in not acute distress at this time. Feels tired however is at baseline. Says she doesn't want to go to group home facility and she has jimbo coming to her home usually for physical therapy and nurses. No fever or chills at this time. No dizziness however she was not doing much physical therapy. Denies abdominal pain, nausea, vomiting. She experienced some diarrhea yesterday, improved today. C. difficile is negative. Start Imodium and lactobacillus. Objective Vitals Vital Signs Date Time Temp Pulse Resp B/P (MAP) Pulse Ox O2 Delivery O2 Flow Rate FiO2 08/27/17 08:00 58 08/27/17 08:00 98.5 62 20 92/56 (68) 99 94/63 (73) 92/63 (73) 08/27/17 05:56 97.8 58 18 103/53 (70) 100 08/27/17 03:10 63 88/43 (58) 08/27/17 03:07 66 08/27/17 01:41 98.1 113 18 64/43 (50) 97 75/48 (57) 75/48 (57) 08/26/17 21:17 97.9 57 18 95/54 (68) 99 08/26/17 20:07 52 08/26/17 16:00 97.7 57 20 86/48 (61) 97 63/31 (42) 63/36 (45) 08/26/17 15:37 57 08/26/17 14:40 16 08/26/17 12:47 97.9 60 16 86/47 (60) 100 08/26/17 09:52 98.1 79 16 75/41 (52) 93 I/O 08/26/17 08/26/17 08/26/17 08/27/17 08/27/17 08/27/17 07:00 15:00 23:00 07:00 15:00 23:00 Intake Total 1080 ml 1112 ml 500 ml Balance 1080 ml 1112 ml 500 ml Intake Oral 1080 ml 960 ml IV Total 152 ml 500 ml # Voids 3 6 # Bowel Movements 2 3 3 Result Diagram: 08/25/17 0555 08/27/17 0540 Imaging Last Impressions Hip and Pelvis X-Ray 08/24/17 0258 Signed Impressions: Service Date/Time: Thursday, August 24, 2017 03:42 - CONCLUSION: Flattening of the right hip consistent with AVN. No acute fracture seen. Ashok Beach MD Head CT 08/24/17 0258 Signed Impressions: Service Date/Time: Thursday, August 24, 2017 03:37 - CONCLUSION: Normal examination. Ashok Beach MD Carotid Artery Ultrasound 08/24/17 0000 Signed Impressions: Service Date/Time: Thursday, August 24, 2017 08:02 - CONCLUSION: Normal examination. Pilo Starr Jr., MD Objective Remarks GENERAL: 42 yo F well nourish well developed patient, appears in nad. CARDIOVASCULAR: Regular rate and rhythm. RESPIRATORY: No accessory muscle use. Clear to auscultation. Breath sounds equal bilaterally. GASTROINTESTINAL: Abdomen soft, non-tender, nondistended. Hepatic and splenic margins not palpable. MUSCULOSKELETAL: Extremities without clubbing, cyanosis, or edema. No obvious deformities. NEUROLOGICAL: Awake and alert. No obvious cranial nerve deficits. Motor grossly within normal limits. Normal speech. PSYCHIATRIC: Appropriate mood and affect; insight and judgment normal. A/P Problem List: (1) Syncope ICD Code: R55 - Syncope and collapse Status: Acute (2) Myasthenia ICD Code: G70.00 - Myasthenia Status: Chronic (3) Chronic pain ICD Code: G89.29 - Chronic pain Status: Chronic (4) Anxiety and depression ICD Code: F41.9 - Anxiety disorder, unspecified; F32.9 - Major depressive disorder, single episode, unspecified Status: Chronic (5) Bradycardia ICD Code: R00.1 - Bradycardia, unspecified Status: Chronic (6) Hypokalemia ICD Code: E87.6 - Hypokalemia Status: Acute (7) Diarrhea ICD Code: R19.7 - Diarrhea, unspecified (8) Hypotension ICD Code: I95.9 - Hypotension, unspecified Status: Acute Assessment and Plan Syncope Patient with multiple falls over the last 2 days. Continue with rehabilitation evaluation replace electrolytes Follow on telemetry Cardiology evaluation appreciated, no indication for pacemaker at this time Echo pending Treat urinary infection Myasthenia Patient will continue with prednisone and Mestinon dosed per neurology Continue with rehabilitation efforts as pain allows Evaluated for home health v snf Chronic pain ptn education Lortab/celebrex outpatient pain mgt per ptn Anxiety and depression Stable at this time Bradycardia Heart rate in the 50s and patient comfortable We'll consider outpatient follow-up Cardiology evaluation appreciated Hypokalemia trend and replace as needed Diarrhea Gen. multiple hospitalizations and high risk for C. difficile Diarrhea improved today. C. difficile is negative. Start Imodium and lactobacillus. IV hydration, continue PO hydration Hypotension Etiology unclear, continue ProAmatine Discharge Planning Cleared by neurology for discharge. Discharge home with [facility] . Patient is refusing rehabilitation. This management following for discharge plan. Patient to follow-up as outpatient with PCP and consultants. Patient to follow with PCP and if need she might go to sleep through her PCP. Tesha Grewal MD Aug 27, 2017 09:36
--- NOTE | 2017-08-27 09:40 | HHI.DS ---
Discharge Summary Admission Date Aug 24, 2017 at 05:44 Discharge Date: Aug 27, 2017 Admitting Diagnosis syncope, symptomatic bradycardia, myasthenia gravis (1) Syncope ICD Code: R55 - Syncope and collapse Status: Acute (2) Myasthenia ICD Code: G70.00 - Myasthenia Status: Chronic (3) Chronic pain ICD Code: G89.29 - Chronic pain Status: Chronic (4) Anxiety and depression ICD Code: F41.9 - Anxiety disorder, unspecified; F32.9 - Major depressive disorder, single episode, unspecified Status: Chronic (5) Bradycardia ICD Code: R00.1 - Bradycardia, unspecified Status: Chronic (6) Hypokalemia ICD Code: E87.6 - Hypokalemia Status: Acute (7) Diarrhea ICD Code: R19.7 - Diarrhea, unspecified (8) Hypotension ICD Code: I95.9 - Hypotension, unspecified Status: Acute Procedures None Brief History - From Admission This patient is a 42-year-old female with a history of myasthenia gravis and 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 Patient came to the hospital with a syncopal episode at home. She reports at least 3 episodes over the last 2 days of falling and 2 episodes of "blacking out". She reports weakness and tremor worse. She has underlying myasthenia gravis and has recently begun decreasing her steroids per her neurologist. She says she's been dizzy with waves of worsening dizziness prior to her falling out. She has been bradycardic on telemetry. She notes no chest pain or shortness of breath. She's not had any fevers. She reports urinary incontinence and bowel frequency which is not new for her. She has abnormal urinalysis as well as hypokalemia found on exam. Patient is not ambulatory due to increasing pain of her right hip which is 10 out of 10 and improved with Lortab. She is recommended for further evaluation and treatment by the ER. CBC/BMP: 08/25/17 0555 08/27/17 0540 Significant Findings Laboratory Tests Test 08/25/17 05:55 08/26/17 04:15 08/26/17 16:14 08/27/17 05:40 Hemoglobin 10.9 GM/DL (11.6-15.3) Hematocrit 33.3 % (35.0-46.0) Mean Corpuscular Hemoglobin 26.8 PG (27.0-34.0) Red Cell Distribution Width 17.8 % (11.6-17.2) Blood Urea Nitrogen 4 MG/DL (7-18) 6 MG/DL (7-18) Random Glucose 117 MG/DL (74-106) Potassium Level 3.4 MEQ/L (3.5-5.1) Chloride Level 108 MEQ/L (98-107) 108 MEQ/L (98-107) 111 MEQ/L (98-107) Anion Gap 4 MEQ/L (5-15) 4 MEQ/L (5-15) 1 MEQ/L (5-15) Calcium Level 8.2 MG/DL (8.5-10.1) Thyroid Stimulating Hormone 3rd Gen 5.130 uIU/ML (0.358-3.740) Imaging Last Impressions Hip and Pelvis X-Ray 08/24/17257 Signed Impressions: Service Date/Time: Thursday, August 24, 2017 03:42 - CONCLUSION: Flattening of the right hip consistent with AVN. No acute fracture seen. Ashok Beach MD Head CT 08/24/178 Signed Impressions: Service Date/Time: Thursday, August 24, 2017 03:37 - CONCLUSION: Normal examination. Ashok Beach MD Carotid Artery Ultrasound 08/24/17 0000 Signed Impressions: Service Date/Time: Thursday, August 24, 2017 08:02 - CONCLUSION: Normal examination. Pilo Starr Jr., MD PE at Discharge GENERAL: 42 yo F well nourish well developed patient, appears in nad. CARDIOVASCULAR: Regular rate and rhythm. RESPIRATORY: No accessory muscle use. Clear to auscultation. Breath sounds equal bilaterally. GASTROINTESTINAL: Abdomen soft, non-tender, nondistended. Hepatic and splenic margins not palpable. MUSCULOSKELETAL: Extremities without clubbing, cyanosis, or edema. No obvious deformities. NEUROLOGICAL: Awake and alert. No obvious cranial nerve deficits. Motor grossly within normal limits. Normal speech. PSYCHIATRIC: Appropriate mood and affect; insight and judgment normal. Hospital Course Syncope Patient with multiple falls over the last 2 days. Continue with rehabilitation evaluation replace electrolytes Follow on telemetry Cardiology evaluation appreciated, no indication for pacemaker at this time Echo pending Treat urinary infection Myasthenia Patient will continue with prednisone and Mestinon dosed per neurology Continue with rehabilitation efforts as pain allows Evaluated for home health v snf Chronic pain ptn education Lortab/celebrex outpatient pain mgt per ptn Anxiety and depression Stable at this time Bradycardia Heart rate in the 50s and patient comfortable We'll consider outpatient follow-up Cardiology evaluation appreciated Hypokalemia trend and replace as needed Diarrhea Gen. multiple hospitalizations and high risk for C. difficile Diarrhea improved today. C. difficile is negative. Start Imodium and lactobacillus. IV hydration, continue PO hydration Hypotension Etiology unclear, continue ProAmatine , increased to 7.5 mg 3 times a day per neurology recommendations. Monitor vital signs closely. Discharge Planning Cleared by neurology for discharge. Discharge home with [facility] . Patient is refusing rehabilitation. Case management following for discharge plan. Patient to follow-up as outpatient with PCP and consultants. Patient to follow with PCP and if need she might go to SNF through her PCP, discussed with the patient and family. Pt Condition on Discharge: Stable Discharge Disposition: Disch w/ Home Health Serv Discharge Time: > 30 minutes Discharge Instructions DIET: Follow Instructions for: As Tolerated, No Restrictions Activities you can perform: Regular-No Restrictions Follow up Referrals: Neurology - 2 Weeks PCP Follow-up - 2-3 Days New Medications: Lactobacillus Acidophilus (Lactinex) 1 Chew 1 TAB CHEW DAILY for Nutritional Supplement, #30 TAB 0 Refills Levofloxacin (Levaquin) 750 Mg Tablet 750 MG PO DAILY for Infection, #2 TAB 0 Refills Celecoxib (Celebrex) 100 Mg Cap 100 MG PO BID for hip pain /inflamma, #40 CAP Midodrine (Midodrine) 5 Mg Tab 7.5 MG PO TID@0700,1200,1700 for low blood pressure , #90 TAB Tramadol (Ultram) 50 Mg Tab 50 MG PO Q8H PRN for hip pain, #20 TAB Changed Medications: Pyridostigmine (Mestinon) 60 Mg Tab 60 MG PO TIDAC for Manage Myastenia Gravis, #90 TAB 0 Refills (Changed from: 120 MG) Continued Medications: Alprazolam (Xanax) 1 Mg Tab 1 MG PO Q6H for Anxiety, #10 TAB 0 Refills (This prescription has been renewed) Amitriptyline (Amitriptyline) 25 Mg Tab 25 MG PO HS, TAB Bedside Commode (Bedside Commode) 1 Mis Mis EA .ROUTE DIRECTED, #1 Citalopram (Citalopram) 40 Mg Tab 40 MG PO DAILY for Control Depression, #30 TAB 0 Refills Hydrocodone-Acetaminophen (Hydrocodone-Acetaminophen) 10-325 mg Tab 1 TAB PO Q8 PRN for PAIN 4-10, #20 TAB (This prescription has been renewed) Prednisone (Prednisone) 10 Mg Tab 15 MG PO DAILY, TAB 0 Refills Sumatriptan (Imitrex) 50 Mg Tab 50 MG PO as needed PRN for HEADACHE, #10 TAB 0 Refills If a satisfactory response has not been obtained at 2 hours, a second dose may be administered Walker with Front Wheels (Walker with Front Wheels) 1 Mis Mis EA .ROUTE DIRECTED, #1 0 Refills Tesha Grewal MD Aug 27, 2017 09:40
[2017-08-27] MEDS ORDERED: HYDR-3583 PO (09:42)
[2017-08-27] MEDS ORDERED: MIDO5TAB PO (09:42)
[2017-08-27] MEDS ORDERED: MEST60TA PO (09:42)
[2017-08-27] MEDS ORDERED: XANA1TAB2 PO (09:42)
[2017-08-27] MEDS ORDERED: LEVA750T9 PO (09:44)
[2017-08-27] MEDS ORDERED: LACTCHW3 CHEW (09:55)
[2017-08-27 09:56] VITALS: RESP 16
[2017-08-27] MEDS ORDERED: LOPERAMIDE HCL 2 MG CAP PO PRN (10:00)
[2017-08-27] MEDS ORDERED: LACTOBACILLUS ACIDOPHILUS TAB PO SCH (10:00)
[2017-08-27] MEDS ORDERED: CELE100C PO (10:24)
[2017-08-27] MEDS ORDERED: TRAM50 PO (10:24)
[2017-08-27] MEDS ORDERED: MIDODRINE 5 MG TAB PO SCH (12:00)
== END 2017-08-27 13:06 | disposition home health service (06) | DRG 309 ==
LOC: NEPE 02:47 → NEDA 05:44 → HCPC 10:18 → HCIS 23:44 → HCIN 08-25 08:02 → N05A 08-26 14:32
PROVIDERS: ADMIT Hospitalist; ATTEND Hospitalist
DX: R00.1 Bradycardia, unspecified (principal); M87.9 Osteonecrosis, unspecified; G70.00 Myasthenia gravis without (acute) exacerbation; I95.9 Hypotension, unspecified; F11.20 Opioid dependence, uncomplicated; N39.0 Urinary tract infection, site not specified; R55 Syncope and collapse; G89.29 Other chronic pain; M25.551 Pain in right hip; F41.8 Other specified anxiety disorders; E87.6 Hypokalemia; R19.7 Diarrhea, unspecified; R29.6 Repeated falls; Z87.891 Personal history of nicotine dependence; R32 Unspecified urinary incontinence; M79.7 Fibromyalgia
CPT/HCPCS: 70450; 73502; 80048; 81001; 82533; 83735; 84443; 84484; 85025; 87086; 87493; 93005; 93306; 93880; 96361; 96374; 96375; J1170; J1885; J1956; J2405; J3250; J7030; J7040; J7512

== ENCOUNTER 2017-09-07 15:19 | Inpatient (IN) | payer MEDICARE, MEDICAID ==
[2017-09-07] VITALS (7 sets, daily range): BP systolic 107–141; BP diastolic 56–82; PULSE 70–88; RESP 16–21; TEMP 97.3–98.4; O2SAT 98–100
[~2017-09-07] VITALS: Ht 165.1 cm; Wt 50.0 kg
[~2017-09-07 15:19] MED LIST changes: +CELE100C PO; +LACTCHW3 CHEW; +LEVA750T9 PO; +MIDO5TAB PO; +TRAM50 PO
[2017-09-07] MEDS ORDERED: ONDANSETRON HCL 4 MG/2 ML VIAL IV PUSH ONE (15:45)
[2017-09-07] MEDS ORDERED: HYDROmorphone HCL PF 0.5 MG/0.5 ML SYRINGE IV PUSH ONE (15:45)
[2017-09-07] MEDS ORDERED: SODIUM CHLORIDE 0.9% FLUSH 5 ML FLUSH IV FLUSH PRN (15:45)
[2017-09-07] MEDS ORDERED: PERC10TA27 PO (15:48)
--- NOTE | 2017-09-07 16:21 | PD ---
HPI Chief Complaint: General Weakness Time Seen by Provider: 15:39 Travel History International Travel<30 days: No Contact w/Intl Traveler<30days: No Traveled to known affect area: No History of Present Illness HPI Patient is a 42-year-old female presenting to the emergency department for evaluation of increasing weakness secondary to myasthenia gravis. Patient also reports falling today secondary to the weakness, she states she fell on her right hip and her pain is a 10 out of 10 and she states aching and throbbing. She denies any head injury or loss of consciousness. At baseline patient's right side is normally weaker than the left. Patient reported that her Mestinon dose was decreased due to low blood pressure, she took 2 tablets today and attempt to help her weakness however this was not effective. Patient did not attempt to contact her neurologist. She does report of migraine and blurry vision in her right eye, this is consistent with previous headaches and previous exacerbations of her myasthenia gravis. She takes Imitrex for abortive therapy. Patient has not taken any medications this morning other than the Mestinon. She was evaluated by an remotely piloted vehicle controller for new glasses this morning, she states her [id number] took her to the doctor. She was able to get there without difficulty. He denies any shortness of breath, dysphagia, chest pain, abdominal pain. PFSH Past Medical History Hx Anticoagulant Therapy: No Anemia: Yes Arthritis: No Autoimmune Disease: Yes (MYASTHENA GRAVIS) Blood Disorders: No Anxiety: Yes Depression: Yes Heart Rhythm Problems: No Cancer: No Cardiovascular Problems: No High Cholesterol: No Chemotherapy: No Chest Pain: No Congestive Heart Failure: No Cerebrovascular Accident: No Cystic Fibrosis: No Diabetes: No Diminished Hearing: No Endocrine: No Gastrointestinal Disorders: No Genitourinary: No Headaches: Yes Hepatitis: No Hiatal Hernia: No Hypertension: No Implanted Vascular Access Dvce: Yes (left chest power port) Musculoskeletal: Yes Reproductive: No Immunizations Current: No Migraines: Yes Seizures: No ?: Not : 2 Para: 2 Dilation and Curettage (D&C): Yes Tubal Ligation: Yes Past Surgical History Abdominal Surgery: No Body Medical Devices: LEFT IMPLANTED PORT Cardiac Surgery: No Ear Surgery: No Endocrine Surgery: Yes ( thymus removed) Eye Surgery: No Genitourinary Surgery: No Gynecologic Surgery: Yes (tubal ligation 2014) Tonsillectomy: Yes Social History Alcohol Use: No Tobacco Use: No Substance Use: No Allergies-Medications (Allergen,Severity, Reaction): Coded Allergies: penicillin G (Unverified Allergy, Severe, Anaphylaxis, 07/28/17) promethazine (Unverified Adverse Reaction, Severe, NAUSEOUS, 07/28/17) Reported Meds & Prescriptions Reported Meds & Active Scripts Active Lactinex (Lactobacillus Acidophilus) 1 Chew 1 Tab CHEW DAILY Midodrine 5 Mg Tab 7.5 Mg PO TID@0700,1200,1700 Mestinon (Pyridostigmine [employer]) 60 Mg Tab 60 Mg PO TIDAC Xanax (Alprazolam) 1 Mg Tab 1 Mg PO Q6H Walker with Front Wheels (Device) 1 Mis Mis Ea .ROUTE DIRECTED Bedside Commode (Device) 1 Mis Mis Ea .ROUTE DIRECTED Imitrex (Sumatriptan Succinate) 50 Mg Tab 50 Mg PO NEEDED PRN If a satisfactory response has not been obtained at 2 hours, a second dose may be administered Reported Percocet (Oxycodone-Acetaminophen) 10-325 mg Tab 1 Tab PO Q4H PRN Prednisone 10 Mg Tab 10 Mg PO DAILY Citalopram (Citalopram Hydrobromide) 40 Mg Tab 40 Mg PO DAILY Amitriptyline (Amitriptyline HCl) 25 Mg Tab 25 Mg PO HS Review of Systems Except as stated in HPI: all other systems reviewed are Neg Eyes: Positive: Blurred Vision HENT: Positive: Headaches Cardiovascular: No: Chest Pain or Discomfort Respiratory: No: Shortness of Breath Gastrointestinal: No: Nausea, Vomiting, Diarrhea, Abdominal Pain Musculoskeletal: Positive: Pain (right hip) Neurologic: Positive: Weakness Physical Exam Narrative GENERAL: Well-developed, well-nourished, alert, drowsy-appearing female. SKIN: Warm and dry. HEAD: Atraumatic. Normocephalic. EYES: Pupils equal and round, pinpoint. No scleral icterus. No injection or drainage. ENT: No nasal bleeding or discharge. Mucous membranes pink and moist. NECK: Trachea midline. No JVD. CARDIOVASCULAR: Regular rate and rhythm. RESPIRATORY: No accessory muscle use. Clear to auscultation. Breath sounds equal bilaterally. GASTROINTESTINAL: Abdomen soft, non-tender, nondistended. Hepatic and splenic margins not palpable. MUSCULOSKELETAL: Extremities without clubbing, cyanosis, or edema. No obvious deformities. NEUROLOGICAL: Awake and alert. No obvious cranial nerve deficits. Motor grossly within normal limits. 4 out of 5 muscle strength in the arms and legs. Normal speech. PSYCHIATRIC: Appropriate mood and affect; insight and judgment normal. Data Data Last Documented VS Vital Signs Date Time Temp Pulse Resp B/P (MAP) Pulse Ox O2 Delivery O2 Flow Rate FiO2 09/07/17 18:19 88 16 127/75 (92) 99 Room Air 09/07/17 15:30 98.4 Orders Orders Complete Blood Count With Diff (09/07/17 15:44) Comprehensive Metabolic Panel (09/07/17 15:44) Thyroid Stimulating Hormone (09/07/17 15:44) Urinalysis - C+S If Indicated (09/07/17 15:44) Blood Glucose (09/07/17 15:44) Ecg Monitoring (09/07/17 15:44) Iv Access Insert/Monitor (09/07/17 15:44) Cath For Specimen (09/07/17 15:44) Oximetry (09/07/17 15:44) Sodium Chloride 0.9% Flush (Ns Flush) (09/07/17 15:45) Drug Screen, Random Urine (09/07/17 15:44) Hip, Uni(Ap&Lat) W Ap Pelvis (09/07/17 ) Hydromorphone Pf Inj (Dilaudid Pf Inj) (09/07/17 15:45) Ondansetron Inj (Zofran Inj) (09/07/17 15:45) Lorazepam Inj (Ativan Inj) (09/07/17 16:45) Sumatriptan Succinate (Imitrex) (09/07/17 18:00) Sodium Chlor 0.9% 1000 Ml Inj (Ns 1000 M (09/07/17 18:15) Potassium Chlor 20 Meq Premix (Kcl 20 Me (09/07/17 18:15) Admit Order (Ed Use Only) (09/07/17 18:25) Labs Laboratory Tests Test 09/07/17 16:22 09/07/17 17:35 White Blood Count 10.6 TH/MM3 Red Blood Count 3.66 MIL/MM3 Hemoglobin 9.8 GM/DL Hematocrit 30.2 % Mean Corpuscular Volume 82.6 FL Mean Corpuscular Hemoglobin 26.6 PG Mean Corpuscular Hemoglobin Concent 32.3 % Red Cell Distribution Width 17.7 % Platelet Count 391 TH/MM3 Mean Platelet Volume 7.9 FL Neutrophils (%) (Auto) 63.8 % Lymphocytes (%) (Auto) 28.2 % Monocytes (%) (Auto) 4.8 % Eosinophils (%) (Auto) 2.1 % Basophils (%) (Auto) 1.1 % Neutrophils # (Auto) 6.7 TH/MM3 Lymphocytes # (Auto) 3.0 TH/MM3 Monocytes # (Auto) 0.5 TH/MM3 Eosinophils # (Auto) 0.2 TH/MM3 Basophils # (Auto) 0.1 TH/MM3 CBC Comment DIFF FINAL Differential Comment Blood Urea Nitrogen 4 MG/DL Creatinine 0.53 MG/DL Random Glucose 84 MG/DL Total Protein 6.4 GM/DL Albumin 3.2 GM/DL Calcium Level 8.4 MG/DL Alkaline Phosphatase 51 U/L Aspartate Amino Transf (AST/SGOT) 9 U/L Alanine Aminotransferase (ALT/SGPT) 8 U/L Total Bilirubin 0.2 MG/DL Sodium Level 139 MEQ/L Potassium Level 3.1 MEQ/L Chloride Level 110 MEQ/L Carbon Dioxide Level 28.9 MEQ/L Anion Gap 0 MEQ/L Estimat Glomerular Filtration Rate 127 ML/MIN Thyroid Stimulating Hormone 3rd Gen 2.680 uIU/ML Urine Color YELLOW Urine Turbidity HAZY Urine pH 6.0 Urine Specific [place] 1.013 Urine Protein NEG mg/dL Urine Glucose (UA) NEG mg/dL Urine Ketones NEG mg/dL Urine Occult Blood SMALL Urine Nitrite NEG Urine Bilirubin NEG Urine Urobilinogen LESS THAN 2.0 MG/DL Urine Leukocyte Esterase NEG Urine RBC LESS THAN 1 /hpf Urine WBC 1 /hpf Urine Squamous Epithelial Cells 5 /hpf Urine Mucus FEW /lpf Microscopic Urinalysis Comment CATH-CULT NOT IND Urine Opiates Screen POS Urine Barbiturates Screen NEG Urine Amphetamines Screen NEG Urine Benzodiazepines Screen POS Urine Cocaine Screen NEG Urine Cannabinoids Screen NEG MDM Medical Decision Making Medical Screen Exam Complete: Yes Emergency Medical Condition: Yes Medical Record Reviewed: Yes Interpretation(s) Vital Signs Date Time Temp Pulse Resp B/P (MAP) Pulse Ox O2 Delivery O2 Flow Rate FiO2 09/07/17 15:30 98.4 81 18 141/82 (101) 100 Differential Diagnosis Medication side effects versus exacerbation of myasthenia gravis versus metabolic abnormality versus hip fracture versus strain versus other Narrative Course Patient is a 42-year-old female who presented to emergency department for evaluation of weakness, she reported that her myasthenia gravis is exacerbating. Patient's vital signs are stable, labs and imaging ordered and pending. Discussed patient's presentation and chief complaint with Dr. Jarquin is her neurologist. He stated to admit patient. Dilaudid and Zofran ordered for pain. CBC with no acute abnormalities Chemistry with potassium 3.1, IV replacement ordered. TSH is 2.68 Urinalysis unremarkable Chest x-ray shows no acute disease. Patient requested medication for anxiety, she stated that she has not taken any medications today. Lorazepam 0.5 mg IM times one dose ordered. 1800 patient continued to complain of a migraine headache. She takes sumatriptan at home, sumatriptan 50 mg by mouth 1 dose ordered and given. Patient was given 1 L of IV fluids. 1845 patient reassessed, she appears more alert than when she initially arrived. She was informed of imaging and lab findings. She is agreeable to observation stay. Patient is requesting more pain medication for her right hip. Percocet and Toradol ordered. Discussed with Dr. Ortiz who accepted admission. Admit orders placed. Diagnosis Primary Impression: Myasthenia gravis with exacerbation Additional Impressions: Hypokalemia Chronic pain Qualified Codes: G89.29 - Other chronic pain Admitting Information Admitting Physician Requests: Observation Condition: Stable Rosa Osuna [facility] Sep 07, 2017 16:21
[2017-09-07] MEDS ORDERED: LORazepam 2 MG/ML VIAL IM ONE (16:45)
[2017-09-07 16:46] LABS: AUTOMATED NEUTROPHIL # 6.7 TH/MM3 (1.8-7.7); BASOPHIL # 0.1 TH/MM3 (0-0.2); BASOPHIL % 1.1 % (0.0-2.0); EOSINOPHIL # 0.2 TH/MM3 (0-0.4); EOSINOPHIL % 2.1 % (0.0-4.0); HEMATOCRIT 30.2 % (35.0-46.0); HEMO FLAGS DIFF FINAL; LYMPH % 28.2 % (9.0-44.0); MEAN CELL VOLUME 82.6 FL (80.0-100.0); MEAN CORPUSCULAR HEMOGLOBIN 26.6 PG (27.0-34.0); MEAN CORPUSCULAR HGB CONC 32.3 % (32.0-36.0); MONO % 4.8 % (0.0-8.0); NEUT % 63.8 % (16.0-70.0); PLATELET COUNT 391 TH/MM3 (150-450); RED BLOOD COUNT 3.66 MIL/MM3 (4.00-5.30); RED CELL DISTRIBUTION WIDTH 17.7 % (11.6-17.2); WHITE BLOOD COUNT 10.6 TH/MM3 (4.0-11.0)
[2017-09-07 17:00] LABS: ANION GAP 0 MEQ/L (5-15); AST (GOT) 9 U/L (15-37); BICARBONATE 28.9 MEQ/L (21.0-32.0); BLOOD UREA NITROGEN 4 MG/DL (7-18); CHLORIDE 110 MEQ/L (98-107); GLOMERULAR FILTRATION RATE 127 ML/MIN (>89); POTASSIUM 3.1 MEQ/L (3.5-5.1); SODIUM (NA) 139 MEQ/L (136-145)
[2017-09-07 17:01] LABS: ALT (GPT) 8 U/L (10-53)
--- NOTE | 2017-09-07 17:08 | RADRPT ---
EXAM DATE/TIME: 09/07/2017 16:49 [place] COMPARISON: HIP RIGHT (AP&LAT 2/3VWS) W AP PELVIS, August 24, 2017, 3:42. INDICATIONS : Pain in right hip pain, previous injury to that hip. MEDICAL HISTORY : None. SURGICAL HISTORY : None. ENCOUNTER: Initial ACUITY: 1 day PAIN SCORE: 0/10 LOCATION: Right hip FINDINGS: There is flattening of the superior articular aspect of the right femoral head consistent with subcho ndral collapse. There is moderate arthritic change with concentric joint space narrowing and subchond ral sclerosis and cyst formation. There is no evidence of acute bony process. Contralateral left hip is intact and unremarkable. The bony pelvis is otherwise unremarkable. CONCLUSION: Stable abnormal appearance of the right hip Kory Black MD on September 07, 2017 at 17:05 Board Certified Radiologist. This report was verified electronically.
[2017-09-07 17:11] LABS: ALKALINE PHOSPHATASE 51 U/L (45-117); TOTAL BILIRUBIN ADULT 0.2 MG/DL (0.2-1.0)
[2017-09-07] MEDS ORDERED: SUMAtriptan SUCCINATE 50 MG TAB PO ONE (18:00)
[2017-09-07 18:03] LABS: BLOOD, URINE SMALL (NEG); GLUCOSE,URINE NEG (NEG); KETONE, URINE NEG (NEG); MUCUS URINE FEW /lpf (OCC); NITRITE,URINE NEG (NEG); SQUAMOUS EPITHELIAL CELL URINE 5 /hpf (0-5); URINE COLOR YELLOW (YELLW/STRAW)
[2017-09-07 18:05] LABS: COMMENT (UR) CATH-CULT NOT IND; CULTURE IF INDICATED CATH CULTURE NOT IND
[2017-09-07] MEDS ORDERED: SODIUM CHLOR 0.9% 1000 ML INJ 1,000 ML IV ONE (18:15)
[2017-09-07] MEDS: POTASSIUM CHLOR 20 MEQ PREMIX 100 ML IV SCH ×2 (18:30→22:27)
[2017-09-07] MEDS ORDERED: oxyCODONE/ACETAMINOPHEN 10 MG/325 MG TAB PO ONE (18:45)
[2017-09-07] MEDS ORDERED: KETOROLAC TROMETHAMINE 30 MG/ML (IVP) VIAL IV PUSH ONE (18:45)
[2017-09-07] MEDS ORDERED: NALOXONE HCL 0.4 MG/ML AMP IV PUSH PRN (18:45)
[2017-09-07] MEDS ORDERED: SODIUM CHLORIDE 0.9% FLUSH 10 ML FLUSH IV FLUSH PRN (18:45)
[2017-09-07] MEDS ORDERED: POTASSIUM CHLORIDE 20 MEQ CONTROLLED RELEASE TAB PO ONE (20:15)
--- NOTE | 2017-09-07 20:17 | HHI.HP ---
[facility] Service [facility] Primary Care Physician Non-Staff Admission Diagnosis WEAKNESS, MYASTHENIA GRAVIS Diagnoses: Travel History International Travel<30 Days: No Contact w/Intl Traveler <30 Da: No Traveled to Known Affected Are: No History of Present Illness 42-year-old female with a past medical history significant for myasthenia gravis and avascular necrosis of the right hip presents with an exacerbation of her myasthenia gravis. The patient reports an episode of paralysis last night while she awoke from sleeping. She also reports new onset slurred speech and bilateral lower extremity weakness. She states she has double vision in her right eye. Her last IVIG infusion was 08/28. Her neurologist is Dr. Schultz. The patient reports that she fell earlier today and landed on her right hip which is now more painful than normal. X-ray showed chronic changes to the right hip without acute process. The patient is asking for breakthrough pain medication that she normally receives upon admission. Her speech is slurred. No ptosis noted. Pupils pinpoint. Review of Systems Denies fever or chills Denies blurry vision, otorrhea, rhinorrhea Denies sore throat and cough No chest pain, palpitations, shortness of breath No abdominal pain Denies constipation/diarrhea/nausea/vomiting Positive weakness throughout No rashes Past Family Social History Past Medical History Myasthenia gravis Avascular necrosis of the right hip Past Surgical History Thymus removed Bilateral tubal ligation Left chest port placement Tonsillectomy Reported Medications Reported Meds & Active Scripts Active Lactinex (Lactobacillus Acidophilus) 1 Chew 1 Tab CHEW DAILY Midodrine 5 Mg Tab 7.5 Mg PO TID@0700,1200,1700 Mestinon (Pyridostigmine [place]) 60 Mg Tab 60 Mg PO TIDAC Xanax (Alprazolam) 1 Mg Tab 1 Mg PO Q6H Walker with Front Wheels (Device) 1 Mis Mis Ea .ROUTE DIRECTED Bedside Commode (Device) 1 Mis Mis Ea .ROUTE DIRECTED Imitrex (Sumatriptan Succinate) 50 Mg Tab 50 Mg PO NEEDED PRN If a satisfactory response has not been obtained at 2 hours, a second dose may be administered Reported Percocet (Oxycodone-Acetaminophen) 10-325 mg Tab 1 Tab PO Q4H PRN Prednisone 10 Mg Tab 10 Mg PO DAILY Citalopram (Citalopram Hydrobromide) 40 Mg Tab 40 Mg PO DAILY Amitriptyline (Amitriptyline HCl) 25 Mg Tab 25 Mg PO HS Allergies: Coded Allergies: penicillin G (Unverified Allergy, Severe, Anaphylaxis, 07/28/17) promethazine (Unverified Adverse Reaction, Severe, NAUSEOUS, 07/28/17) Family History Father with diabetes mellitus Social History Quit smoking 2 months ago. Smoked half a pack per day 20 years. Denies alcohol, illicit drugs. Physical Exam Vital Signs Vital Signs Date Time Temp Pulse Resp B/P (MAP) Pulse Ox O2 Delivery O2 Flow Rate FiO2 09/07/17 19:08 80 20 121/66 (84) 100 Room Air 09/07/17 19:08 80 100 Room Air 09/07/17 18:19 88 16 127/75 (92) 99 Room Air 09/07/17 16:32 71 21 117/58 (77) 99 Room Air 09/07/17 15:30 98.4 81 18 141/82 (101) 100 Physical Exam GENERAL: female sitting up in bed SKIN: No rashes, ecchymoses or lesions. Cool and dry. HEAD: Atraumatic. Normocephalic. No temporal or scalp tenderness. EYES: Pupils pinpoint. Extraocular motions intact. No scleral icterus. No injection or drainage. ENT: Nose without bleeding, purulent drainage or septal hematoma. Throat without erythema, tonsillar hypertrophy or exudate. Uvula midline. Airway patent. NECK: Trachea midline. No JVD or lymphadenopathy. Supple, nontender, no meningeal signs. CARDIOVASCULAR: Regular rate and rhythm without murmurs, gallops, or rubs. RESPIRATORY: Clear to auscultation. Breath sounds equal bilaterally. No wheezes , rales, or rhonchi. GASTROINTESTINAL: Abdomen soft, non-tender, nondistended. No hepato-splenomegaly , or palpable masses. No guarding. MUSCULOSKELETAL: Extremities without clubbing, cyanosis, or edema. No joint tenderness, effusion, or edema noted. No calf tenderness. Negative Homans sign bilaterally. NEUROLOGICAL: Awake and alert. Cranial nerves II through XII intact. Difficult to assess strength as patient's participation in the exam was questionable. There appears to be some bilateral lower extremity weakness, although patient's effort in the exam is unknown. Laboratory Laboratory Tests Test 09/07/17 16:22 09/07/17 17:35 White Blood Count 10.6 Red Blood Count 3.66 Hemoglobin 9.8 Hematocrit 30.2 Mean Corpuscular Volume 82.6 Mean Corpuscular Hemoglobin 26.6 Mean Corpuscular Hemoglobin Concent 32.3 Red Cell Distribution Width 17.7 Platelet Count 391 Mean Platelet Volume 7.9 Neutrophils (%) (Auto) 63.8 Lymphocytes (%) (Auto) 28.2 Monocytes (%) (Auto) 4.8 Eosinophils (%) (Auto) 2.1 Basophils (%) (Auto) 1.1 Neutrophils # (Auto) 6.7 Lymphocytes # (Auto) 3.0 Monocytes # (Auto) 0.5 Eosinophils # (Auto) 0.2 Basophils # (Auto) 0.1 CBC Comment DIFF FINAL Differential Comment Blood Urea Nitrogen 4 Creatinine 0.53 Random Glucose 84 Total Protein 6.4 Albumin 3.2 Calcium Level 8.4 Alkaline Phosphatase 51 Aspartate Amino Transf (AST/SGOT) 9 Alanine Aminotransferase (ALT/SGPT) 8 Total Bilirubin 0.2 Sodium Level 139 Potassium Level 3.1 Chloride Level 110 Carbon Dioxide Level 28.9 Anion Gap 0 Estimat Glomerular Filtration Rate 127 Thyroid Stimulating Hormone 3rd Gen 2.680 Urine Color YELLOW Urine Turbidity HAZY Urine pH 6.0 Urine Specific [place] 1.013 Urine Protein NEG Urine Glucose (UA) NEG Urine Ketones NEG Urine Occult Blood SMALL Urine Nitrite NEG Urine Bilirubin NEG Urine Urobilinogen LESS THAN 2.0 Urine Leukocyte Esterase NEG Urine RBC LESS THAN 1 Urine WBC 1 Urine Squamous Epithelial Cells 5 Urine Mucus FEW Microscopic Urinalysis Comment CATH-CULT NOT IND Urine Opiates Screen POS Urine Barbiturates Screen NEG Urine Amphetamines Screen NEG Urine Benzodiazepines Screen POS Urine Cocaine Screen NEG Urine Cannabinoids Screen NEG Result Diagram: 09/07/17162109/07/171621 Caprini VTE Risk Assessment Caprini VTE Risk Assessment: No/Low Risk (score <= 1) Caprini Risk Assessment Model Point Value = 1 Point Value = 2 Point Value = 3 Point Value = 5 Age 41-60 Minor surgery BMI > 25 kg/m2 Swollen legs Varicose veins or History of unexplained or recurrent spontaneous Oral contraceptives or hormone replacement Sepsis (< 1 month) Serious lung disease, including pneumonia (< 1 month) Abnormal pulmonary function Acute myocardial infarction Congestive heart failure (< 1 month) History of inflammatory bowel disease Medical patient at bed rest Age 61-74 Arthroscopic surgery Major open surgery (> 45 min) Laparoscopic surgery (> 45 min) Malignancy Confined to bed (> 72 hours) Immobilizing plaster cast Central venous access Age >= 75 History of VTE Family history of VTE Factor V Leiden Prothrombin [id number] Lupus anticoagulant Anticardiolipin antibodies Elevated serum homocysteine Heparin-induced thrombocytopenia Other congenital or acquired thrombophilia Stroke (< 1 month) Elective arthroplasty Hip, pelvis, or leg fracture Acute spinal cord injury (< 1 month) Prophylaxis Regimen Total Risk Factor Score Risk Level Prophylaxis Regimen 0-1 Low Early ambulation 2 Moderate Order ONE of the following: *Sequential Compression Device (SCD) *Heparin 5000 units SQ BID 3-4 Higher Order ONE of the following medications: *Heparin 5000 units SQ TID *Enoxaparin/Lovenox 40 mg SQ daily (WT < 150 kg, CrCl > 30 mL/min) *Enoxaparin/Lovenox 30 mg SQ daily (WT < 150 kg, CrCl > 10-29 mL/min) *Enoxaparin/Lovenox 30 mg SQ BID (WT < 150 kg, CrCl > 30 mL/min) AND/OR *Sequential Compression Device (SCD) 5 or more Highest Order ONE of the following medications: *Heparin 5000 units SQ TID (Preferred with Epidurals) *Enoxaparin/Lovenox 40 mg SQ daily (WT < 150 kg, CrCl > 30 mL/min) *Enoxaparin/Lovenox 30 mg SQ daily (WT < 150 kg, CrCl > 10-29 mL/min) *Enoxaparin/Lovenox 30 mg SQ BID (WT < 150 kg, CrCl > 30 mL/min) AND *Sequential Compression Device (SCD) Assessment and Plan Assessment and Plan 42-year-old female with a past medical history of myasthenia gravis and AVN of the right hip presents with acute myasthenia gravis exacerbation. 1. Acute myasthenia gravis exacerbation Continue home Mestinon Last IVIG infusion 08/28 Neurology consulted, appreciate recommendations 2. Right hip pain/AVN right hip X-ray of the pelvis showed no acute process, reviewed by me Patient will follow-up as an outpatient with orthopedic surgery for possible surgical intervention 3. Depression/anxiety Continue home medications 4. Hypokalemia Supplemented with by mouth potassium Follow-up [facility] Heart healthy diet Electrolytes: As above SCDs Jessy Bennett MD Sep 07, 2017 20:17
[2017-09-07] MEDS: SODIUM CHLORIDE 0.9% FLUSH 10 ML FLUSH IV FLUSH SCH (21:00)
[2017-09-07] MEDS: ALPRAZolam 1 MG TAB PO PRN (22:28)
[2017-09-07] MEDS: AMITRIPTYLINE HCL 25 MG TAB PO SCH (22:28)
[2017-09-07] MEDS ORDERED: LOPE2TAB18 PO (22:35)
[2017-09-07] MEDS ORDERED: LOPERAMIDE HCL 2 MG CAP PO ONE (23:15)
[2017-09-07] MEDS: oxyCODONE/ACETAMINOPHEN 10 MG/325 MG TAB PO PRN (23:46)
[2017-09-08] VITALS (11 sets, daily range): BP systolic 107–135; BP diastolic 57–74; PULSE 69–92; RESP 16–18; TEMP 97.5–98; O2SAT 97–99
[2017-09-08] MEDS: MIDODRINE 5 MG TAB PO SCH ×3 (05:31→17:00)
[2017-09-08] MEDS: oxyCODONE/ACETAMINOPHEN 10 MG/325 MG TAB PO PRN ×4 (05:32→20:46)
[2017-09-08] MEDS: predniSONE 10 MG TAB PO SCH (08:24)
[2017-09-08] MEDS: ALPRAZolam 1 MG TAB PO PRN ×2 (08:24→17:01)
[2017-09-08] MEDS: LACTOBACILLUS ACIDOPHILUS TAB PO SCH (08:25)
[2017-09-08] MEDS: CITALOPRAM HYDROBROMIDE 40 MG TAB PO SCH (08:25)
[2017-09-08] MEDS: PYRIDOSTIGMINE BROMIDE 60 MG TAB PO SCH ×3 (08:26→16:33)
[2017-09-08] MEDS: SODIUM CHLORIDE 0.9% FLUSH 10 ML FLUSH IV FLUSH SCH ×2 (08:27→21:00)
[2017-09-08 11:49] LABS: AUTOMATED NEUTROPHIL # 12.3 TH/MM3 (1.8-7.7); BASOPHIL # 0.1 TH/MM3 (0-0.2); BASOPHIL % 0.6 % (0.0-2.0); EOSINOPHIL # 0.2 TH/MM3 (0-0.4); EOSINOPHIL % 1.4 % (0.0-4.0); HEMATOCRIT 29.7 % (35.0-46.0); HEMO FLAGS DIFF FINAL; LYMPH % 6.6 % (9.0-44.0); LYMPHOCYTE # 0.9 TH/MM3 (1.0-4.8); MEAN CELL VOLUME 83.1 FL (80.0-100.0); MEAN CORPUSCULAR HEMOGLOBIN 27.2 PG (27.0-34.0); MEAN CORPUSCULAR HGB CONC 32.7 % (32.0-36.0); MONO % 1.6 % (0.0-8.0); NEUT % 89.8 % (16.0-70.0); PLATELET COUNT 347 TH/MM3 (150-450); RED BLOOD COUNT 3.58 MIL/MM3 (4.00-5.30); RED CELL DISTRIBUTION WIDTH 17.6 % (11.6-17.2); WHITE BLOOD COUNT 13.7 TH/MM3 (4.0-11.0)
[2017-09-08 12:26] LABS: BICARBONATE 29.1 MEQ/L (21.0-32.0); POTASSIUM 4.2 MEQ/L (3.5-5.1)
[2017-09-08] MEDS ORDERED: PYRIDOSTIGMINE BROMIDE 60 MG TAB PO ONE (13:30)
--- NOTE | 2017-09-08 14:16 | MB ---
cc: TAMMY NICHOLS M.D. DATE OF CONSULTATION: 09/08/2017 DATE OF : 1975 REASON FOR CONSULTATION Possible myasthenia gravis exacerbation. HISTORY OF PRESENT ILLNESS This is a 42-year-old patient who has a longstanding history of myasthenia gravis and recent avascular necrosis of the right hip. She comes in with diffuse weakness, diplopia of the right eye, trouble swallowing. Denies any shortness of breath. She states that at her last visit to the ER she was admitted and found to be hypotensive and was started on medication, midodrine, to increase her blood pressure but her Mestinon two three times a day 60 mg was decreased to one three times a day and she states this has made her weaker. She is asking to go back to the original dose. Her last IVIG was August 28. PAST MEDICAL HISTORY 1. Avascular necrosis, right hip. 2. Myasthenia gravis. PAST SURGICAL HISTORY 1. Thymus removed. 2. Tubal ligation. MEDICATIONS Home medicines: 1. Midodrine 7.5 mg three times a day. 2. Mestinon 60 mg three times a day. 3. Xanax 1 mg q.6h. 4. Imitrex p.r.n. 5. Prednisone 10 mg daily. 6. Elavil 25 mg at night. 7. Citalopram 40 mg daily. 8. Percocet 10/325 q.4h. p.r.n. ALLERGIES 1. PENICILLIN. 2. PROMETHAZINE. FAMILY HISTORY Diabetes. SOCIAL HISTORY She quit smoking 2 months ago. No alcohol. No drugs. PHYSICAL EXAMINATION VITAL SIGNS: Temperature 97.8, pulse 75, respiratory rate 18, blood pressure sitting 117/66. NEUROLOGIC: She is awake and alert. She has nasal speech. She has mild diplegia of the face but can smile. Pupils reactive. She states diplopia with the right eye and right gaze. Her tongue is midline. She has decreased strength in her neck, extensors and flexors, but more with the flexor. Motor-willson she seems weaker on the right than on the left as far as strength 4/5 on the left, 4-/5 on the right. She has trouble lifting her right leg up due to the hip issue, avascular necrosis. Left leg intact. DTRs are 1-2+. Toes withdraws. Cerebellar intact, but weaker on the right. LABORATORY White count 13.7, hemoglobin 9.7, hematocrit 29.7, platelets 247,000. BUN 2, creatinine 0.56, calcium 8.6, sodium 139. UDS positive for opiates and benzodiazepines. Urine hazy. Culture not indicated. IMAGING X-ray of the pelvis: Stable abnormal appearance of the right hip. IMPRESSION Probable exacerbation of myasthenia gravis. PLAN/RECOMMENDATIONS Recommend continuing her Mestinon at three times a day. I will give her another dose now. Will continue her prednisone. She cannot take Imuran, it causes hair loss. She used to be on CellCept but now that she is on Medicare they will not approve it. Recommend starting her on IVIG 0.4 grams per kilogram per day for 5 days. Watch her blood pressure. Physical therapy. Follow-up with the orthopedist for the right hip. If her blood pressure is tolerating it we can certainly add a higher dose of Mestinon, but it can cause severe hypotension. Continue current care. She should have checked at least once by respiratory. If there is decline she may need to go to a unit bed for close monitoring. Continue current care. MD KATARZYNA Shaikh/PEDRO /1:34 PM /1:48 PM
[2017-09-08] MEDS: KETOROLAC TROMETHAMINE 30 MG/ML (IVP) VIAL IV PUSH PRN (14:50)
[2017-09-08] MEDS ORDERED: MORPHINE SULFATE 2 MG/ML INJ IV PUSH PRN (15:00)
--- NOTE | 2017-09-08 15:00 | HHI.PR ---
Subjective Remarks Follow-up on patient with acute myasthenia gravis exacerbation. Patient seen and examined. Patient requesting advance to regular diet. She denies any cardiac history. Denies any difficulty with swallowing and/or choking with liquids or food. Denies any chest pain or shortness of breath. She is requesting something for breakthrough pain for her right hip pain secondary to avascular necrosis. She denies any episodes of diarrhea today. She denies any nausea, vomiting or abdominal pain. She denies any dysuria, frequency or urgency. Objective Vitals Vital Signs Date Time Temp Pulse Resp B/P (MAP) Pulse Ox O2 Delivery O2 Flow Rate FiO2 09/08/17 12:52 75 09/08/17 12:50 97.5 69 16 120/67 (84) 98 09/08/17 08:10 97.8 82 18 117/66 (83) 98 09/08/17 07:59 83 09/08/17 06:32 12 09/08/17 04:40 92 09/08/17 03:40 97.5 72 18 107/57 (74) 98 09/08/17 00:00 74 09/07/17 23:43 97.3 81 18 107/56 (73) 98 09/07/17 21:35 70 09/07/17 21:03 97.5 78 18 120/63 (82) 98 09/07/17 19:08 80 20 121/66 (84) 100 Room Air 09/07/17 19:08 80 100 Room Air 09/07/17 18:19 88 16 127/75 (92) 99 Room Air 09/07/17 16:32 71 21 117/58 (77) 99 Room Air 09/07/17 15:30 98.4 81 18 141/82 (101) 100 I/O 09/07/17 09/07/17 09/07/17 09/08/17 09/08/17 09/08/17 07:00 15:00 23:00 07:00 15:00 23:00 Intake Total 200 ml Balance 200 ml Intake IV Total 200 ml # Voids 4 Result Diagram: 09/08/17 1100 09/08/17 1100 Imaging Last Impressions Hip and Pelvis X-Ray 09/07/17 0000 Signed Impressions: Service Date/Time: Thursday, September 07, 2017 16:49 - CONCLUSION: Stable abnormal appearance of the right hip Kory Black MD Objective Remarks GENERAL: WDWN female sitting up in bed eating. Awake and alert. SKIN: Cool and dry. HEAD: Atraumatic. Normocephalic. EYES: Extraocular motions intact. No scleral icterus. No injection or drainage. ENT: Nose without bleeding, purulent drainage or septal hematoma. Airway patent. NECK: Trachea midline. No lymphadenopathy. Supple, nontender, no meningeal signs. CARDIOVASCULAR: Regular rate and rhythm without murmurs, gallops, or rubs. RESPIRATORY: Clear to auscultation. Breath sounds equal bilaterally. No wheezes , rales, or rhonchi. GASTROINTESTINAL: Abdomen soft, non-tender, nondistended. No hepato-splenomegaly , or palpable masses. No guarding. MUSCULOSKELETAL: Extremities without clubbing, cyanosis, or edema. Decreased ROM right hip. Pain elicited with ROM right hip. No calf tenderness. NEUROLOGICAL: Awake and alert. Able to move all extremities spontaneously. Normal speech. Medications and IVs Current Medications Medications (Trade) Dose Ordered Sig/Gómez Route Start Time Stop Time Status Last Admin (NS Flush) 2 ml UNSCH PRN IV FLUSH 09/07/17 18:45 (NS Flush) 2 ml BID IV FLUSH 09/07/17 21:00 09/08/17 08:27 (Narcan Inj) 0.4 mg UNSCH PRN IV PUSH 09/07/17 18:45 (Xanax) 1 mg TID PRN PO 09/07/17 19:00 09/08/17 08:24 (Elavil) 25 mg HS PO 09/07/17 21:00 09/07/17 22:28 (CeleXA) 40 mg DAILY PO 09/08/17 09:00 09/08/17 08:25 (Proamatine) 7.5 mg TID@0700,1200,1700 PO 09/08/17 07:00 09/08/17 12:09 (Percocet 10-325 Mg) 1 tab Q4H PRN PO 09/07/17 19:00 09/08/17 13:55 (Deltasone) 10 mg DAILY PO 09/08/17 09:00 09/08/17 08:24 (Mestinon) 60 mg TIDAC PO 09/08/17 08:00 09/08/17 12:09 (Imitrex) 50 mg Q6H PRN PO 09/07/17 19:00 (Lactinex) 1 tab DAILY PO 09/08/17 09:00 09/08/17 08:25 (Toradol Inj) 15 mg Q6HR PRN IV PUSH 09/07/17 23:15 09/12/17 23:14 (Mestinon) 60 mg ONCE ONCE PO 09/08/17 13:30 09/08/17 13:31 UNV A/P Assessment and Plan 42-year-old female with a past medical history of myasthenia gravis and AVN of the right hip presents with acute myasthenia gravis exacerbation. 1. Acute myasthenia gravis exacerbation Continue home Mestinon TID Last IVIG infusion 08/28 Neurology consulted, appreciate recommendations - give another dose of Mestinon now, plan for IVIG x 5 days and if BP able to tolerate, may increase to higher doses of Mestinon. Continue participation with PT 2. Right hip pain/AVN right hip X-ray of the pelvis showed no acute fracture, moderate degenerative change noted right joint space c/w AVN Patient will follow-up as an outpatient with orthopedic surgery for possible surgical intervention Pain management with bowel regimen 3. Leukocytosis Uncertain etiology ?steroid reaction UA unremarkable Patient does not appear septic. Afebrile. Lungs clear on exam. IS, encourage hourly use while awake Monitor 4. Depression/anxiety Continue home medications 5. Hypokalemia Supplemented with by mouth potassium resolved 6. Anemia asymptomatic appears chronic hx of MIHIR, obtain iron studies Monitor 7. DVT prophylaxis Lovenox sq Discussed with nursing staff, patient and Mandy Limon Sep 08, 2017 15:00
[2017-09-08] MEDS ORDERED: DIPHENHYDRAMINE HCL 25 MG CAP Pre-med PO ONE (15:45)
[2017-09-08] MEDS ORDERED: ACETAMINOPHEN 325 MG TAB Pre-med PO ONE (15:45)
[2017-09-08] MEDS ORDERED: DIPHENHYDRAMINE HCL 50 MG/ML VIAL Reaction Med IV PUSH PRN (15:45)
[2017-09-08] MEDS ORDERED: NS 500 ML Pre-hydration IV SCH (15:45)
[2017-09-08] MEDS ORDERED: D5W as prime bag (IVIG as secondary) IV SCH (15:45)
[2017-09-08] MEDS ORDERED: EPINEPHRINE HCL (1:1000) 1 MG/ML AMP Reaction Med OTHER PRN (15:45)
[2017-09-08] MEDS ORDERED: IMMUNE GLOBULIN INJ 20 GM in SYRINGE/BAG 1 EA IV SCH (17:00)
[2017-09-08] MEDS: ENOXAPARIN SODIUM 40 MG/0.4 ML SYRINGE SQ SCH ×2 (20:00→20:46)
[2017-09-08] MEDS: AMITRIPTYLINE HCL 25 MG TAB PO SCH (20:46)
[2017-09-08] MEDS: DOCUSATE SODIUM 50 MG/SENNA 8.6 MG TAB PO SCH (20:46)
[2017-09-08] MEDS: IMMUNE GLOBULIN INJ 20 GM in SYRINGE/BAG 1 EA IV SCH (21:37)
[2017-09-09 00:30] VITALS: BP 128/72; PULSE 70; RESP 17; TEMP 97.6; O2SAT 96
[2017-09-09] MEDS: oxyCODONE/ACETAMINOPHEN 10 MG/325 MG TAB PO PRN ×5 (00:45→22:52)
[2017-09-09] MEDS: KETOROLAC TROMETHAMINE 30 MG/ML (IVP) VIAL IV PUSH PRN ×3 (02:07→20:10)
[2017-09-09] MEDS: ALPRAZolam 1 MG TAB PO PRN ×3 (02:07→22:51)
[2017-09-09 05:00] VITALS: BP 125/63; PULSE 83; RESP 17; TEMP 97.7; O2SAT 98
[2017-09-09] MEDS: MIDODRINE 5 MG TAB PO SCH ×3 (06:56→18:50)
[2017-09-09] MEDS: PYRIDOSTIGMINE BROMIDE 60 MG TAB PO SCH ×3 (07:00→16:51)
[2017-09-09 07:41] LABS: ANION GAP 2 MEQ/L (5-15); BICARBONATE 30.8 MEQ/L (21.0-32.0); BLOOD UREA NITROGEN 6 MG/DL (7-18); CHLORIDE 106 MEQ/L (98-107); GLOMERULAR FILTRATION RATE 112 ML/MIN (>89); POTASSIUM 3.8 MEQ/L (3.5-5.1); SODIUM (NA) 139 MEQ/L (136-145)
[2017-09-09 07:43] LABS: TRANSFERRIN IRON PROFILE 229 MG/DL (200-360)
[2017-09-09 07:46] LABS: FERRITIN 6 NG/ML (8-252)
[2017-09-09 08:00] VITALS: BP 140/79; PULSE 68; PULSE 75; RESP 20; TEMP 97; O2SAT 98
[2017-09-09] MEDS: predniSONE 10 MG TAB PO SCH (08:52)
[2017-09-09] MEDS: LACTOBACILLUS ACIDOPHILUS TAB PO SCH (08:52)
[2017-09-09] MEDS: DOCUSATE SODIUM 50 MG/SENNA 8.6 MG TAB PO SCH ×2 (08:52→20:15)
[2017-09-09] MEDS: CITALOPRAM HYDROBROMIDE 40 MG TAB PO SCH (08:52)
[2017-09-09] MEDS: SODIUM CHLORIDE 0.9% FLUSH 10 ML FLUSH IV FLUSH SCH ×2 (09:00→20:15)
--- NOTE | 2017-09-09 10:40 | HHI.PR ---
Subjective Remarks Complains of urinary retention. Feels the urge to go but has not been able to urinate. over 900 cc on bladder scan. She requested increase in Mestinon to home dose of 120 mg TID. Still requesting more medications for breakthrough hip pain. Objective Vitals Vital Signs Date Time Temp Pulse Resp B/P (MAP) Pulse Ox O2 Delivery O2 Flow Rate FiO2 09/09/17 08:00 97.0 75 20 140/79 (99) 98 09/09/17 05:00 97.7 83 17 125/63 (83) 98 09/09/17 00:30 97.6 70 17 128/72 (90) 96 09/08/17 23:18 98 21 09/08/17 23:10 97.6 69 17 135/74 (94) 99 09/08/17 21:37 74 12 128/68 09/08/17 20:30 98.0 79 17 128/63 (84) 97 09/08/17 15:48 97.9 71 17 116/61 (79) 97 09/08/17 12:52 75 09/08/17 12:50 97.5 69 16 120/67 (84) 98 I/O 09/08/17 09/08/17 09/08/17 09/09/17 09/09/17 09/09/17 07:00 15:00 23:00 07:00 15:00 23:00 Intake Total 200 ml 360 ml 390 ml Balance 200 ml 360 ml 390 ml Intake Oral 360 ml 390 ml IV Total 200 ml Bladder Scan Volume Amount 932 ml # Voids 4 5 6 Result Diagram: 09/08/17 1100 09/09/17 0645 Objective Remarks GENERAL: This is a well-nourished, well-developed patient, in no apparent distress. CARDIOVASCULAR: Normal rate and regular rhythm without murmurs, gallops, or rubs. RESPIRATORY: Good respiratory efforts. Breath sounds equal and clear to auscultation bilaterally. GASTROINTESTINAL: Abdomen soft, non-tender, non-distended. Normal active bowel sounds MUSCULOSKELETAL: Extremities without cyanosis, or edema. NEURO: Alert & Oriented x4. Moves all ext x4 but some mild generalized weakness. PSYCH: Appropriate mood and affect. 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 1. Acute myasthenia gravis exacerbation Continue home Mestinon TID Last IVIG infusion 08/28 Neurology following, appreciate recommendations -continue IVIG x 5 days. BP better. Resume home dose Mestinon. Continue participation with PT - Cellcept added per Neurology. CM to assist patient with obtaining this medication outpatient. 2. Right hip pain/AVN right hip X-ray of the pelvis showed no acute fracture, moderate degenerative change noted right joint space c/w AVN Patient will follow-up as an outpatient with orthopedic surgery for possible surgical intervention Pain management with bowel regimen Advised the patient that it is not safe to give her anymore Narcotics given her underlying condition and low BP. Based on my previous interaction with the patient. She tends to have Narcotic seeking behavior. 3. Leukocytosis Uncertain etiology Probably steroid reaction UA unremarkable Patient does not appear septic. Afebrile. Lungs clear on exam. IS, encourage hourly use while awake Monitor 4. Depression/anxiety Continue home medications 5. Hypokalemia Supplemented with by mouth potassium resolved 6. Anemia asymptomatic appears chronic hx of MIHIR, obtain iron studies Monitor 7. DVT prophylaxis Lovenox sq Discharge Planning Plan to DC after completion of IVIG. Fidelia Fiore MD Sep 09, 2017 10:40
[2017-09-09 12:00] VITALS: BP 123/72; PULSE 66; RESP 20; TEMP 97.5; O2SAT 96
--- NOTE | 2017-09-09 14:13 | HHI.PR ---
Subjective Remarks improved dose #2 of ivig. now back to 120 mg mestinon tid needs ass't with obtaining cellcept since now on medicare. Objective Vital Signs Date Time Temp Pulse Resp B/P (MAP) Pulse Ox O2 Delivery O2 Flow Rate FiO2 09/09/17 12:00 97.5 66 20 123/72 (89) 96 09/09/17 10:46 97 16 140/79 09/09/17 08:00 97.0 75 20 140/79 (99) 98 09/09/17 05:00 97.7 83 17 125/63 (83) 98 09/09/17 00:30 97.6 70 17 128/72 (90) 96 09/08/17 23:18 98 21 09/08/17 23:10 97.6 69 17 135/74 (94) 99 09/08/17 21:37 74 12 128/68 09/08/17 20:30 98.0 79 17 128/63 (84) 97 09/08/17 15:48 97.9 71 17 116/61 (79) 97 I/O 09/08/17 09/08/17 09/08/17 09/09/17 09/09/17 09/09/17 07:00 15:00 23:00 07:00 15:00 23:00 Intake Total 200 ml 360 ml 390 ml 199.3 ml Output Total 1200 ml Balance 200 ml 360 ml 390 ml -1000.7 ml Intake Oral 360 ml 390 ml IV Total 200 ml 199.3 ml Output Urine Total 1200 ml Bladder Scan Volume Amount 932 ml # Voids 4 5 6 awake alert no ptosis speech better face more animation motor still mild weakness but improved Result Diagram: 09/08/17 1100 09/09/17 0645 Assessment and Plan Assessment and Plan MG exacerbation finish 5 days of ivig restart cell cept 500 mg qd then in 2 weeks go to 500 mg bid. case management to assist with cellcept since she claims medicare will not cover it.she can not take imuran hair loss and other adverse reactions with it. cont mestinon 120mg tid-watch bp if goes down sbp <100 may need midodrine adjusted. she also needs assistance with obtaining ivig as needed at home should the need arise. PT-OT d/c planning after last dose of ivig if ready and cleared by Stella Islas MD Sep 09, 2017 14:13
[2017-09-09 16:00] VITALS: BP 114/56; PULSE 65; RESP 20; TEMP 97.8; O2SAT 96
[2017-09-09] MEDS: MYCOPHENOLATE MOFETIL 500 MG TAB PO SCH (18:50)
[2017-09-09] MEDS: ENOXAPARIN SODIUM 40 MG/0.4 ML SYRINGE SQ SCH (20:00)
[2017-09-09] MEDS: IMMUNE GLOBULIN INJ 20 GM in SYRINGE/BAG 1 EA IV SCH (20:17)
[2017-09-09] MEDS: AMITRIPTYLINE HCL 25 MG TAB PO SCH (20:17)
[2017-09-09 20:58] VITALS: BP 129/61; PULSE 69; RESP 18; TEMP 98; O2SAT 96
[2017-09-10] VITALS (8 sets, daily range): BP systolic 117–139; BP diastolic 55–64; PULSE 60–76; RESP 18–20; TEMP 97.5–98.2; O2SAT 95–98
[2017-09-10] MEDS: KETOROLAC TROMETHAMINE 30 MG/ML (IVP) VIAL IV PUSH PRN ×4 (02:24→22:29)
[2017-09-10] MEDS: oxyCODONE/ACETAMINOPHEN 10 MG/325 MG TAB PO PRN ×6 (02:58→23:38)
[2017-09-10] MEDS: MIDODRINE 5 MG TAB PO SCH ×3 (06:49→18:04)
[2017-09-10] MEDS: PYRIDOSTIGMINE BROMIDE 60 MG TAB PO SCH ×3 (06:50→18:04)
[2017-09-10] MEDS: SODIUM CHLORIDE 0.9% FLUSH 10 ML FLUSH IV FLUSH SCH ×2 (09:00→21:00)
[2017-09-10] MEDS: CITALOPRAM HYDROBROMIDE 40 MG TAB PO SCH (09:10)
[2017-09-10] MEDS: DOCUSATE SODIUM 50 MG/SENNA 8.6 MG TAB PO SCH ×2 (09:10→21:00)
[2017-09-10] MEDS: predniSONE 10 MG TAB PO SCH (09:10)
[2017-09-10] MEDS: LACTOBACILLUS ACIDOPHILUS TAB PO SCH (09:10)
[2017-09-10] MEDS: ALPRAZolam 1 MG TAB PO PRN ×3 (09:10→22:29)
--- NOTE | 2017-09-10 09:54 | PD.PN.STU ---
Subjective Remarks Patient complains of pain in right hip. Expresses understanding that narcotics are contraindicated but requests increase in Toradol. States most of her symptoms of weakness have improved. Right arm still feels weak on bringing food to mouth but otherwise functional. Mobility improved per pt. With carrion since yesterday. Objective Vitals Vital Signs Date Time Temp Pulse Resp B/P (MAP) Pulse Ox O2 Delivery O2 Flow Rate FiO2 09/10/17 08:29 98.0 73 20 117/61 (79) 98 09/10/17 06:01 97.5 65 18 128/60 (82) 98 09/10/17 01:08 76 09/10/17 00:23 98.0 69 18 122/61 (81) 95 09/09/17 20:58 98.0 69 18 129/61 (83) 96 09/09/17 20:17 69 18 129/61 09/09/17 16:00 97.8 65 20 114/56 (75) 96 09/09/17 14:30 14 09/09/17 12:00 97.5 66 20 123/72 (89) 96 09/09/17 10:46 97 16 140/79 I/O 09/09/17 09/09/17 09/09/17 09/10/17 09/10/17 09/10/17 07:00 15:00 23:00 07:00 15:00 23:00 Intake Total 390 ml 559.3 ml Output Total 2400 ml 500 ml Balance 390 ml -1840.7 ml -500 ml Intake Oral 390 ml 360 ml IV Total 199.3 ml Output Urine Total 2400 ml 500 ml Bladder Scan Volume Amount 932 ml # Voids 6 # Bowel Movements 0 Result Diagram: 09/08/17 1100 09/09/17 0645 Objective Remarks GENERAL: Awake, alert, in no acute distress. Carrion in place. SKIN: Warm and dry. HEAD: Atraumatic. Normocephalic. EYES: Pupils equal and round. No scleral icterus. No injection or drainage. ENT: No nasal bleeding or discharge. Mucous membranes pink and moist. NECK: Trachea midline. No JVD. CARDIOVASCULAR: Regular rate and rhythm. RESPIRATORY: No accessory muscle use. Clear to auscultation. Breath sounds equal bilaterally. GASTROINTESTINAL: Abdomen soft, non-tender, nondistended. Hepatic and splenic margins not palpable. MUSCULOSKELETAL: Extremities without clubbing, cyanosis, or edema. No obvious deformities. NEUROLOGICAL: Awake and alert. Right eye lags slightly on movement. Some right mouth droop. Right upper extremity with some flexion weakness 4/5 compared to 5/ 5 left. PSYCHIATRIC: Appropriate mood and affect; insight and judgment normal. 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 1. Acute myasthenia gravis exacerbation: clinically improving Continue home Mestinon TID, dose increased to 120 mg now per neurology. Neurology following, appreciate recommendations -continue IVIG x 5 days, 3rd dose to be given today. Continue participation with PT Cellcept added per Neurology. CM to assist patient with obtaining this medication outpatient. Carrion placed yesterday for urinary retention. Consider d/c of carrion with voiding trial today. 2. Right hip pain/AVN right hip X-ray of the pelvis showed no acute fracture, moderate degenerative change noted right joint space c/w AVN Patient will follow-up as an outpatient with orthopedic surgery for possible surgical intervention Pain management with bowel regimen Advised the patient that it is not safe to give her anymore Narcotics given her underlying condition and low BP. Consider increasing dose of tordol to better control patient's pain. Kidney fxn normal. 3. Leukocytosis: uncertain etiology, probable steroid reaction. UA unremarkable. Patient does not appear septic. Afebrile. Lungs clear on exam. No clinical signs of infection. IS, encourage hourly use while awake Monitor vitals Consider repeat CBC today. 4. Depression/anxiety Continue home medications 5. Hypokalemia: resolved Supplemented with by mouth potassium 6. Anemia: asymptomatic, iron studies consistent with iron deficiency anemia Monitor H & H consider supplementation with iron PO 7. DVT prophylaxis Lovenox sq Stephen Camarena M3 Sep 10, 2017 09:54
--- NOTE | 2017-09-10 14:50 | HHI.PR ---
Subjective Remarks Patient reports she is feeling better. She still complains of ongoing hip pain. She states her strength is getting better. She is using a walker. We discussed outpatient IVIG infusion. She is open to come to the infusion center to avoid recurrent hospitalizations. Objective Vitals Vital Signs Date Time Temp Pulse Resp B/P (MAP) Pulse Ox O2 Delivery O2 Flow Rate FiO2 09/10/17 11:51 98.2 68 20 139/64 (89) 97 09/10/17 08:29 98.0 73 20 117/61 (79) 98 09/10/17 06:01 97.5 65 18 128/60 (82) 98 09/10/17 01:08 76 09/10/17 00:23 98.0 69 18 122/61 (81) 95 09/09/17 20:58 98.0 69 18 129/61 (83) 96 09/09/17 20:17 69 18 129/61 09/09/17 16:00 97.8 65 20 114/56 (75) 96 I/O 09/09/17 09/09/17 09/09/17 09/10/17 09/10/17 09/10/17 07:00 15:00 23:00 07:00 15:00 23:00 Intake Total 390 ml 559.3 ml Output Total 2400 ml 500 ml Balance 390 ml -1840.7 ml -500 ml Intake Oral 390 ml 360 ml IV Total 199.3 ml Output Urine Total 2400 ml 500 ml Bladder Scan Volume Amount 932 ml # Voids 6 # Bowel Movements 0 Result Diagram: 09/08/17 1100 09/09/17 0645 Objective Remarks GENERAL: This is a well-nourished, well-developed patient, in no apparent distress. CARDIOVASCULAR: Normal rate and regular rhythm without murmurs, gallops, or rubs. RESPIRATORY: Good respiratory efforts. Breath sounds equal and clear to auscultation bilaterally. GASTROINTESTINAL: Abdomen soft, non-tender, non-distended. Normal active bowel sounds MUSCULOSKELETAL: Extremities without cyanosis, or edema. NEURO: Alert & Oriented x4. Moves all ext x4 but some mild generalized weakness. PSYCH: Appropriate mood and affect. 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 1. Acute myasthenia gravis exacerbation Continue home Mestinon TID Last IVIG infusion 08/28 Neurology following, appreciate recommendations -continue IVIG x 5 days. BP better. Continue home dose Mestinon. Continue participation with PT - Cellcept added per Neurology. CM to assist patient with obtaining this medication outpatient. - Patient has had recurrent hospitalization for myasthenia gravis exacerbation. She would benefit from outpatient IVIG infusion. She is agreeable to do this outpatient to avoid recurrent hospitalizations. This will need to be coordinated through her neurologist. 2. Right hip pain/AVN right hip X-ray of the pelvis showed no acute fracture, moderate degenerative change noted right joint space c/w AVN Patient will follow-up as an outpatient with orthopedic surgery for possible surgical intervention Pain management with bowel regimen. Continue Toradol as needed Advised the patient that it is not safe to give her anymore Narcotics given her underlying condition and low BP. Based on my previous interaction with the patient. She tends to have Narcotic seeking behavior. 3. Leukocytosis Uncertain etiology Probably steroid reaction UA unremarkable Patient does not appear septic. Afebrile. Lungs clear on exam. IS, encourage hourly use while awake Monitor 4. Depression/anxiety Continue home medications 5. Hypokalemia Supplemented with by mouth potassium resolved 6. Anemia asymptomatic appears chronic hx of MIHIR, obtain iron studies Monitor 7. DVT prophylaxis Lovenox sq Discharge Planning Plan to DC after completion of IVIG. Fidelia Fiore MD Sep 10, 2017 14:50
[2017-09-10] MEDS: MYCOPHENOLATE MOFETIL 500 MG TAB PO SCH (18:04)
[2017-09-10] MEDS: SUMAtriptan SUCCINATE 50 MG TAB PO PRN (18:07)
[2017-09-10] MEDS: ENOXAPARIN SODIUM 40 MG/0.4 ML SYRINGE SQ SCH (20:00)
[2017-09-10] MEDS: IMMUNE GLOBULIN INJ 20 GM in SYRINGE/BAG 1 EA IV SCH (22:28)
[2017-09-10] MEDS: AMITRIPTYLINE HCL 25 MG TAB PO SCH (22:29)
[2017-09-11] VITALS (8 sets, daily range): BP systolic 116–141; BP diastolic 59–68; PULSE 58–81; RESP 18–20; TEMP 97.3–98.4; O2SAT 96–99
[2017-09-11] MEDS: oxyCODONE/ACETAMINOPHEN 10 MG/325 MG TAB PO PRN ×6 (03:31→22:02)
[2017-09-11] MEDS: KETOROLAC TROMETHAMINE 30 MG/ML (IVP) VIAL IV PUSH PRN ×4 (04:56→23:57)
[2017-09-11] MEDS: ALPRAZolam 1 MG TAB PO PRN ×3 (06:21→22:56)
[2017-09-11] MEDS: MIDODRINE 5 MG TAB PO SCH ×3 (06:30→17:18)
[2017-09-11] MEDS: PYRIDOSTIGMINE BROMIDE 60 MG TAB PO SCH ×3 (07:03→16:54)
[2017-09-11] MEDS: DOCUSATE SODIUM 50 MG/SENNA 8.6 MG TAB PO SCH ×2 (08:36→21:15)
[2017-09-11] MEDS: CITALOPRAM HYDROBROMIDE 40 MG TAB PO SCH (08:36)
[2017-09-11] MEDS: predniSONE 10 MG TAB PO SCH (08:36)
[2017-09-11] MEDS: LACTOBACILLUS ACIDOPHILUS TAB PO SCH (08:36)
[2017-09-11] MEDS: SODIUM CHLORIDE 0.9% FLUSH 10 ML FLUSH IV FLUSH SCH ×2 (08:37→21:00)
--- NOTE | 2017-09-11 08:50 | PD.PN.STU ---
Subjective Remarks Patient states she is feeling much better and does not note any residual weakness. Pain level much improved since yesterday with Toradol increase. Ledezma d/randall yesterday and patient has been voiding without problems. She is able to walk to bathroom and reportedly walked around in hallway with PT yesterday. Patient has had 3/5 IVIg infusions. Patient requested discharge this weekend which would require return to infusion center after d/c which patient is amenable to. Would also like to find out about possibility of receiving CellCept outside of hospital. Objective Vitals Vital Signs Date Time Temp Pulse Resp B/P (MAP) Pulse Ox O2 Delivery O2 Flow Rate FiO2 09/11/17 05:07 98.2 77 18 124/63 (83) 97 09/11/17 04:40 65 09/11/17 01:41 97.3 70 18 127/67 (87) 98 09/11/17 00:30 58 09/10/17 22:28 60 12 141/81 09/10/17 21:12 98.1 60 18 124/60 (81) 97 09/10/17 21:00 64 09/10/17 15:59 98.1 74 20 117/55 (75) 96 09/10/17 11:51 98.2 68 20 139/64 (89) 97 I/O 09/10/17 09/10/17 09/10/17 09/11/17 09/11/17 09/11/17 07:00 15:00 23:00 07:00 15:00 23:00 Intake Total 720 ml Output Total 1800 ml Balance -1080 ml Intake Oral 720 ml Output Urine Total 1800 ml # Voids 3 4 # Bowel Movements 2 1 Result Diagram: 09/08/17 1100 09/09/17 0645 Objective Remarks GENERAL: Patient returning from bathroom and getting vitals done during exam. Sitting up in bed in no acute distress. SKIN: Warm and dry. HEAD: Atraumatic. Normocephalic. EYES: Pupils equal and round. No scleral icterus. No injection or drainage. ENT: No nasal bleeding or discharge. Mucous membranes pink and moist. NECK: Trachea midline. No JVD. CARDIOVASCULAR: Regular rate and rhythm. RESPIRATORY: No accessory muscle use. Clear to auscultation. Breath sounds equal bilaterally. GASTROINTESTINAL: Abdomen soft, non-tender, nondistended. Hepatic and splenic margins not palpable. MUSCULOSKELETAL: Extremities without clubbing, cyanosis, or edema. No obvious deformities. NEUROLOGICAL: Awake and alert. No obvious cranial nerve deficits. Motor grossly within normal limits. Normal speech. PSYCHIATRIC: Appropriate mood and affect; insight and judgment normal. Medications and IVs Current Medications IV Flush (NS Flush) 2 ml UNSCH PRN IV FLUSH FLUSH AFTER USING IV ACCESS; Start 09/07/17 at 15:45; Stop 09/07/17 at 19:50; Status DC Hydromorphone HCl (Dilaudid Pf Inj) 0.2 mg ONCE ONCE IV PUSH Last administered on 09/07/17 16:31; Start 09/07/17 at 15:45; Stop 09/07/17 at 15 :46; Status DC Ondansetron HCl (Zofran Inj) 4 mg ONCE ONCE IV PUSH Last administered on 09/07 16:32; Start 09/07/17 at 15:45; Stop 09/07/17 at 15:46; Status DC Lorazepam (Ativan Inj) 0.5 mg ONCE ONCE IM Last administered on 09/07/17 17: 11; Start 09/07/17 at 16:45; Stop 09/07/17 at 16:46; Status DC Sumatriptan Succinate (Imitrex) 50 mg ONCE ONCE PO Last administered on 18:08; Start 09/07/17 at 18:00; Stop 09/07/17 at 18:01; Status DC Sodium Chloride 1,000 ml @ 999 mls/hr BOLUS ONCE IV Last administered on 18:10; Start 09/07/17 at 18:15; Stop 09/07/17 at 19:15; Status DC Potassium Chloride 100 ml @ 50 mls/hr Q2H IV Last administered on 09/07/17 22:27; Start 09/07/17 at 18:15; Stop 09/07/17 at 22:14; Status DC Oxycodone/ Acetaminophen (Percocet 10-325 Mg) 1 tab ONCE ONCE PO Last administered on 09/07/17 18:51; Start 09/07/17 at 18:45; Stop 09/07/17 at 18 :46; Status DC Ketorolac Tromethamine (Toradol Inj) 30 mg ONCE ONCE IV PUSH Last administered on 09/07/17 18:51; Start 09/07/17 at 18:45; Stop 09/07/17 at 18 :46; Status DC Sodium Chloride (NS Flush) 2 ml UNSCH PRN IV FLUSH FLUSH AFTER USING IV ACCESS ; Start 09/07/17 at 18:45 Sodium Chloride (NS Flush) 2 ml BID IV FLUSH Last administered on 09/11/17 08: 37; Start 09/07/17 at 21:00 Naloxone HCl (Narcan Inj) 0.4 mg UNSCH PRN IV PUSH SEE LABEL COMMENTS; Start 09/07/17 at 18:45 Alprazolam (Xanax) 1 mg TID PRN PO ANXIETY Last administered on 09/11/17 06:21 ; Start 09/07/17 at 19:00 Amitriptyline HCl (Elavil) 25 mg HS PO Last administered on 09/10/17 22:29; Start 09/07/17 at 21:00 Citalopram Hydrobromide (CeleXA) 40 mg DAILY PO Last administered on 09/11/17 08:36; Start 09/08/17 at 09:00 Midodrine (Proamatine) 7.5 mg TID@0700,1200,1700 PO Last administered on 06:30; Start 09/08/17 at 07:00 Oxycodone/ Acetaminophen (Percocet 10-325 Mg) 1 tab Q4H PRN PO PAIN SCALE 1 TO 10 Last administered on 09/11/17 07:03; Start 09/07/17 at 19:00 Prednisone (Deltasone) 10 mg DAILY PO Last administered on 09/11/17 08:36; Start 09/08/17 at 09:00 Pyridostigmine [place] (Mestinon) 60 mg TIDAC PO Last administered on 07:00; Start 09/08/17 at 08:00; Stop 09/09/17 at 09:07; Status DC Sumatriptan Succinate (Imitrex) 50 mg Q6H PRN PO HEADACHE Last administered on 09/10/17 18:07; Start 09/07/17 at 19:00 Lactobacillus Acidophilus (Lactinex) 1 tab DAILY PO Last administered on 08:36; Start 09/08/17 at 09:00 Potassium Chloride (KCl) 40 meq ONCE ONCE PO Last administered on 09/07/17 22:28; Start 09/07/17 at 20:15; Stop 09/07/17 at 20:32; Status DC Ketorolac Tromethamine (Toradol Inj) 15 mg Q6HR PRN IV PUSH for breakthrough pain Last administered on 09/10/17 09:09; Start 09/07/17 at 23:15; Stop at 11:31; Status DC Loperamide HCl (Imodium) 2 mg ONCE ONCE PO Last administered on 09/07/17 23: 46; Start 09/07/17 at 23:15; Stop 09/07/17 at 23:16; Status DC Pyridostigmine [place] (Mestinon) 60 mg ONCE ONCE PO Last administered on 14:48; Start 09/08/17 at 13:30; Stop 09/08/17 at 14:41; Status DC Morphine Sulfate (Morphine Inj) 2 mg Q4H PRN IV PUSH Breakthrough pain; Start 09/08/17 at 15:00 Sodium Chloride 500 ml @ 500 mls/hr Q24H IV Last administered on 09/08/17 17 :01; Start 09/08/17 at 15:45; Stop 09/08/17 at 16:44; Status DC Immune Globulin 20 gm/Syringe / Bag 200 ml @ 15 mls/hr Q24H IV ; Start at 17:00; Stop 09/08/17 at 19:17; Status DC Acetaminophen (Tylenol) 650 mg ONCE ONCE PO Last administered on 09/08/17 16 :32; Start 09/08/17 at 15:45; Stop 09/08/17 at 15:46; Status DC Diphenhydramine HCl (Benadryl) 25 mg ONCE ONCE PO Last administered on 16:33; Start 09/08/17 at 15:45; Stop 09/08/17 at 15:46; Status DC Dextrose 500 ml @ 30 mls/hr Q24H IV Last administered on 09/08/17 20:59; Start 09/08/17 at 15:45; Stop 09/09/17 at 08:24; Status DC Diphenhydramine HCl (Benadryl Inj) 50 mg UNSCH PRN IV PUSH ALLERGIC REACTION; Start 09/08/17 at 15:45; Stop 09/09/17 at 15:44; Status DC Epinephrine HCl (Adrenalin (1:1000) Inj) 0.3 mg Q10M PRN OTHER ANAPHYLACTIC REACTION; Start 09/08/17 at 15:45; Stop 09/09/17 at 15:44; Status DC Senna/Docusate Sodium (Bonita-Colace) 1 tab BID PO Last administered on 08:36; Start 09/08/17 at 21:00 Enoxaparin Sodium (Lovenox Inj) 40 mg Q24H SQ ; Start 09/08/17 at 20:00 Immune Globulin 20 gm/Syringe / Bag 200 ml @ 15 mls/hr Q24H IV Last administered on 09/10/17 22:28; Start 09/08/17 at 20:00; Stop 09/13/17 at 09: 19 Pyridostigmine [place] (Mestinon) 120 mg TIDAC PO Last administered on 07:03; Start 09/09/17 at 12:00 Mycophenolate Mofetil (Cellcept) 500 mg DAILY@18 PO Last administered on 18:04; Start 09/09/17 at 18:00 Ketorolac Tromethamine (Toradol Inj) 30 mg Q6H PRN IV PUSH for breakthrough pain Last administered on 09/11/17 04:56; Start 09/10/17 at 11:30; Stop at 11:29 A/P Assessment and Plan 42-year-old female with a past medical history of myasthenia gravis and 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 1. Acute myasthenia gravis exacerbation: clinically improving Continue home Mestinon TID, dose increased to 120 mg now per neurology. Neurology following, appreciate recommendations -continue IVIG x 5 days, 3rd dose to be given today. Continue participation with PT Cellcept added per Neurology. CM to assist patient with obtaining this medication outpatient. 2. Right hip pain/AVN right hip X-ray of the pelvis showed no acute fracture, moderate degenerative change noted right joint space c/w AVN Patient will follow-up as an outpatient with orthopedic surgery for possible surgical intervention Pain management with bowel regimen Advised the patient that it is not safe to give her anymore Narcotics given her underlying condition and low BP. 3. Leukocytosis: uncertain etiology, probable steroid reaction. UA unremarkable. Patient does not appear septic. Afebrile. Lungs clear on exam. No clinical signs of infection. IS, encourage hourly use while awake Monitor vitals Consider repeat CBC today. 4. Depression/anxiety Continue home medications 5. Hypokalemia: resolved Supplemented with by mouth potassium 6. Anemia: asymptomatic, iron studies consistent with iron deficiency anemia Monitor H & H consider supplementation with iron PO 7. DVT prophylaxis Lovenox sq Stephen Camarena M3 Sep 11, 2017 08:50
--- NOTE | 2017-09-11 10:34 | HHI.PR ---
Subjective Remarks Patient reports that she is close to her baseline. Strength is much better. She is ambulating. She is hoping to go home tomorrow morning. Objective Vitals Vital Signs Date Time Temp Pulse Resp B/P (MAP) Pulse Ox O2 Delivery O2 Flow Rate FiO2 09/11/17 09:09 97.7 70 20 123/65 (84) 99 09/11/17 05:07 98.2 77 18 124/63 (83) 97 09/11/17 04:40 65 09/11/17 01:41 97.3 70 18 127/67 (87) 98 09/11/17 00:30 58 09/10/17 22:28 60 12 141/81 09/10/17 21:12 98.1 60 18 124/60 (81) 97 09/10/17 21:00 64 09/10/17 15:59 98.1 74 20 117/55 (75) 96 09/10/17 11:51 98.2 68 20 139/64 (89) 97 I/O 09/10/17 09/10/17 09/10/17 09/11/17 09/11/17 09/11/17 07:00 15:00 23:00 07:00 15:00 23:00 Intake Total 720 ml Output Total 1800 ml Balance -1080 ml Intake Oral 720 ml Output Urine Total 1800 ml # Voids 3 4 # Bowel Movements 2 1 Result Diagram: 09/08/17 1100 09/09/17 0645 Objective Remarks GENERAL: This is a well-nourished, well-developed patient, in no apparent distress. CARDIOVASCULAR: Normal rate and regular rhythm without murmurs, gallops, or rubs. RESPIRATORY: Good respiratory efforts. Breath sounds equal and clear to auscultation bilaterally. GASTROINTESTINAL: Abdomen soft, non-tender, non-distended. Normal active bowel sounds MUSCULOSKELETAL: Extremities without cyanosis, or edema. NEURO: Alert & Oriented x4. Moves all ext x4 but some mild generalized weakness. PSYCH: Appropriate mood and affect. 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 1. Acute myasthenia gravis exacerbation Continue home Mestinon TID Last IVIG infusion 08/28 Neurology following, appreciate recommendations -continue IVIG.. BP better. Continue home dose Mestinon. Continue participation with PT - Cellcept added per Neurology. CM to assist patient with obtaining this medication outpatient. - Patient has had recurrent hospitalization for myasthenia gravis exacerbation. She would benefit from outpatient IVIG infusion. She is agreeable to do this outpatient to avoid recurrent hospitalizations. This will need to be coordinated through her neurologist. - Plan to discharge tomorrow. Last dose of IVIG tonight. 2. Right hip pain/AVN right hip X-ray of the pelvis showed no acute fracture, moderate degenerative change noted right joint space c/w AVN Patient will follow-up as an outpatient with orthopedic surgery for possible surgical intervention Pain management with bowel regimen. Pain currently controlled with Toradol. Advised the patient that it is not safe to give her anymore Narcotics given her underlying condition and low BP. Based on my previous interaction with the patient. She tends to have Narcotic seeking behavior. 3. Leukocytosis Uncertain etiology Probably steroid reaction UA unremarkable Patient does not appear septic. Afebrile. Lungs clear on exam. IS, encourage hourly use while awake Monitor 4. Depression/anxiety Continue home medications 5. Hypokalemia Supplemented with by mouth potassium resolved 6. Anemia asymptomatic appears chronic hx of MIHIR, obtain iron studies Monitor 7. DVT prophylaxis Lovenox sq Discharge Planning Plan to DC tomorrow morning. Fidelia Fiore MD Sep 11, 2017 10:33
--- NOTE | 2017-09-11 11:06 | HHI.PR ---
Review/Management Diagnosis/Plan: (1) Migraine ICD Codes: G43.909 - Migraine, unspecified, not intractable, without status migrainosus Status: Chronic Plan: last ivig 01/12 today f/u with us outpatient d/c home tomorrow (2) Fibromyalgia ICD Codes: M79.7 - Fibromyalgia Status: Chronic (3) Myasthenia gravis ICD Codes: G70.00 - Myasthenia gravis Status: Acute (4) Anxiety and depression ICD Codes: F41.9 - Anxiety disorder, unspecified; F32.9 - Major depressive disorder, single episode, unspecified Status: Chronic Subjective Subjective Comments No acute events reported feels well. wants to go home tomorrow and end last ivig today eating/sleeping well No headache No chest pain No dyspnea Active Medications Current Medications Medications (Trade) Dose Ordered Sig/Gómez Route Start Time Stop Time Status Last Admin (NS Flush) 2 ml UNSCH PRN IV FLUSH 09/07/17 18:45 (NS Flush) 2 ml BID IV FLUSH 09/07/17 21:00 09/11/17 08:37 (Narcan Inj) 0.4 mg UNSCH PRN IV PUSH 09/07/17 18:45 (Xanax) 1 mg TID PRN PO 09/07/17 19:00 09/11/17 06:21 (Elavil) 25 mg HS PO 09/07/17 21:00 09/10/17 22:29 (CeleXA) 40 mg DAILY PO 09/08/17 09:00 09/11/17 08:36 (Proamatine) 7.5 mg TID@0700,1200,1700 PO 09/08/17 07:00 09/11/17 06:30 (Percocet 10-325 Mg) 1 tab Q4H PRN PO 09/07/17 19:00 09/11/17 10:47 (Deltasone) 10 mg DAILY PO 09/08/17 09:00 09/11/17 08:36 (Imitrex) 50 mg Q6H PRN PO 09/07/17 19:00 09/10/17 18:07 (Lactinex) 1 tab DAILY PO 09/08/17 09:00 09/11/17 08:36 (Morphine Inj) 2 mg Q4H PRN IV PUSH 09/08/17 15:00 (Bonita-Colace) 1 tab BID PO 09/08/17 21:00 09/11/17 08:36 (Lovenox Inj) 40 mg Q24H SQ 09/08/17 20:00 Immune Globulin 20 gm/Syringe / Bag 200 ml @ 15 mls/hr Q24H IV 09/08/17 20:00 09/13/17 09:19 09/10/17 22:28 (Mestinon) 120 mg TIDAC PO 09/09/17 12:00 09/11/17 10:46 (Cellcept) 500 mg DAILY@18 PO 09/09/17 18:00 09/10/17 18:04 (Toradol Inj) 30 mg Q6H PRN IV PUSH 09/10/17 11:30 09/12/17 11:29 09/11/17 10:46 Allergies Allergies Coded Allergies penicillin G (Unverified Allergy, Severe, Anaphylaxis, 07/28/17) promethazine (Unverified Adverse Reaction, Severe, NAUSEOUS, 07/28/17) Review of Systems All other ROS: ROS reviewed as documented in chart Exam I&O / VS Vital Signs Date Time Temp Pulse Resp B/P (MAP) Pulse Ox O2 Delivery O2 Flow Rate FiO2 09/11/17 09:09 97.7 70 20 123/65 (84) 99 09/11/17 05:07 98.2 77 18 124/63 (83) 97 09/11/17 04:40 65 09/11/17 01:41 97.3 70 18 127/67 (87) 98 09/11/17 00:30 58 09/10/17 22:28 60 12 141/81 09/10/17 21:12 98.1 60 18 124/60 (81) 97 09/10/17 21:00 64 09/10/17 15:59 98.1 74 20 117/55 (75) 96 09/10/17 11:51 98.2 68 20 139/64 (89) 97 General: Alert and Oriented, No acute distress Eye: PERRL, EOMI, Normal conjuctiva Respiratory: Non-labored respirations Cardiology: Normal rate Neurologic: Alert, Oriented, Normal motor, No focal defects, CN II-XII intact, Normal DTR's Psychiatric: Cooperative, Appropriate mood & affect, Normal judgement Problem Qualifiers (1) Migraine: Artie Vizcarra MD Sep 11, 2017 11:06
[2017-09-11] MEDS: SUMAtriptan SUCCINATE 50 MG TAB PO PRN (12:20)
[2017-09-11] MEDS: MYCOPHENOLATE MOFETIL 500 MG TAB PO SCH (18:15)
[2017-09-11] MEDS: ENOXAPARIN SODIUM 40 MG/0.4 ML SYRINGE SQ SCH (20:00)
[2017-09-11] MEDS: IMMUNE GLOBULIN INJ 20 GM in SYRINGE/BAG 1 EA IV SCH (21:13)
[2017-09-11] MEDS: AMITRIPTYLINE HCL 25 MG TAB PO SCH (21:15)
[2017-09-12] VITALS: BP 126/68; PULSE 66; RESP 20; TEMP 98.5; O2SAT 97
[2017-09-12] MEDS: oxyCODONE/ACETAMINOPHEN 10 MG/325 MG TAB PO PRN ×3 (03:02→11:36)
[2017-09-12 04:00] VITALS: BP 122/58; PULSE 64; RESP 18; TEMP 97.9; O2SAT 100
[2017-09-12] MEDS: MIDODRINE 5 MG TAB PO SCH (06:47)
[2017-09-12] MEDS: KETOROLAC TROMETHAMINE 30 MG/ML (IVP) VIAL IV PUSH PRN (06:47)
[2017-09-12] MEDS: PYRIDOSTIGMINE BROMIDE 60 MG TAB PO SCH ×2 (07:57→11:36)
[2017-09-12] MEDS: DOCUSATE SODIUM 50 MG/SENNA 8.6 MG TAB PO SCH (07:58)
[2017-09-12] MEDS: LACTOBACILLUS ACIDOPHILUS TAB PO SCH (07:58)
[2017-09-12] MEDS: CITALOPRAM HYDROBROMIDE 40 MG TAB PO SCH (07:58)
[2017-09-12] MEDS: SODIUM CHLORIDE 0.9% FLUSH 10 ML FLUSH IV FLUSH SCH (07:58)
[2017-09-12] MEDS: predniSONE 10 MG TAB PO SCH (07:58)
[2017-09-12 08:00] VITALS: BP 129/75; PULSE 84; RESP 19; TEMP 98; O2SAT 98
[2017-09-12] MEDS: ALPRAZolam 1 MG TAB PO PRN (08:04)
--- NOTE | 2017-09-12 09:24 | PD.PN.STU ---
Subjective Remarks No problems today. Pt reports that mobility and strength back to normal. Requests discharge today. Also asks for home Rx of Xanax and steroids. Objective Vitals Vital Signs Date Time Temp Pulse Resp B/P (MAP) Pulse Ox O2 Delivery O2 Flow Rate FiO2 09/12/17 04:00 97.9 64 18 122/58 (79) 100 09/12/17 00:00 98.5 66 20 126/68 (87) 97 09/11/17 21:13 69 12 117/75 09/11/17 20:00 98.4 64 18 141/60 (87) 96 09/11/17 16:57 98.4 81 20 124/68 (86) 98 09/11/17 11:54 98.2 69 20 116/59 (78) 98 I/O 09/11/17 09/11/17 09/11/17 09/12/17 09/12/17 09/12/17 06:59 14:59 22:59 06:59 14:59 22:59 Intake Total 720 ml Balance 720 ml Intake Oral 720 ml # Voids 4 5 2 5 # Bowel Movements 1 0 3 Result Diagram: 09/08/17 1100 09/09/17 0645 Objective Remarks GENERAL: Patient sitting up in bed in no acute distress. SKIN: Warm and dry. HEAD: Atraumatic. Normocephalic. EYES: Pupils equal and round. No scleral icterus. No injection or drainage. ENT: No nasal bleeding or discharge. Mucous membranes pink and moist. NECK: Trachea midline. No JVD. CARDIOVASCULAR: Regular rate and rhythm. RESPIRATORY: No accessory muscle use. Clear to auscultation. Breath sounds equal bilaterally. GASTROINTESTINAL: Abdomen soft, non-tender, nondistended. Hepatic and splenic margins not palpable. MUSCULOSKELETAL: Extremities without clubbing, cyanosis, or edema. No obvious deformities. NEUROLOGICAL: Awake and alert. No obvious cranial nerve deficits. Motor grossly within normal limits. Normal speech. PSYCHIATRIC: Appropriate mood and affect; insight and judgment normal. Medications and IVs Current Medications IV Flush (NS Flush) 2 ml UNSCH PRN IV FLUSH FLUSH AFTER USING IV ACCESS; Start 09/07/17 at 15:45; Stop 09/07/17 at 19:50; Status DC Hydromorphone HCl (Dilaudid Pf Inj) 0.2 mg ONCE ONCE IV PUSH Last administered on 09/07/17 16:31; Start 09/07/17 at 15:45; Stop 09/07/17 at 15 :46; Status DC Ondansetron HCl (Zofran Inj) 4 mg ONCE ONCE IV PUSH Last administered on 09/07 16:32; Start 09/07/17 at 15:45; Stop 09/07/17 at 15:46; Status DC Lorazepam (Ativan Inj) 0.5 mg ONCE ONCE IM Last administered on 09/07/17 17: 11; Start 09/07/17 at 16:45; Stop 09/07/17 at 16:46; Status DC Sumatriptan Succinate (Imitrex) 50 mg ONCE ONCE PO Last administered on 18:08; Start 09/07/17 at 18:00; Stop 09/07/17 at 18:01; Status DC Sodium Chloride 1,000 ml @ 999 mls/hr BOLUS ONCE IV Last administered on 18:10; Start 09/07/17 at 18:15; Stop 09/07/17 at 19:15; Status DC Potassium Chloride 100 ml @ 50 mls/hr Q2H IV Last administered on 09/07/17 22:27; Start 09/07/17 at 18:15; Stop 09/07/17 at 22:14; Status DC Oxycodone/ Acetaminophen (Percocet 10-325 Mg) 1 tab ONCE ONCE PO Last administered on 09/07/17 18:51; Start 09/07/17 at 18:45; Stop 09/07/17 at 18 :46; Status DC Ketorolac Tromethamine (Toradol Inj) 30 mg ONCE ONCE IV PUSH Last administered on 09/07/17 18:51; Start 09/07/17 at 18:45; Stop 09/07/17 at 18 :46; Status DC Sodium Chloride (NS Flush) 2 ml UNSCH PRN IV FLUSH FLUSH AFTER USING IV ACCESS ; Start 09/07/17 at 18:45 Sodium Chloride (NS Flush) 2 ml BID IV FLUSH Last administered on 09/12/17 07: 58; Start 09/07/17 at 21:00 Naloxone HCl (Narcan Inj) 0.4 mg UNSCH PRN IV PUSH SEE LABEL COMMENTS; Start 09/07/17 at 18:45 Alprazolam (Xanax) 1 mg TID PRN PO ANXIETY Last administered on 09/12/17 08:04 ; Start 09/07/17 at 19:00 Amitriptyline HCl (Elavil) 25 mg HS PO Last administered on 09/11/17 21:15; Start 09/07/17 at 21:00 Citalopram Hydrobromide (CeleXA) 40 mg DAILY PO Last administered on 09/12/17 07:58; Start 09/08/17 at 09:00 Midodrine (Proamatine) 7.5 mg TID@0700,1200,1700 PO Last administered on 06:47; Start 09/08/17 at 07:00 Oxycodone/ Acetaminophen (Percocet 10-325 Mg) 1 tab Q4H PRN PO PAIN SCALE 1 TO 10 Last administered on 09/12/17 07:57; Start 09/07/17 at 19:00 Prednisone (Deltasone) 10 mg DAILY PO Last administered on 09/12/17 07:58; Start 09/08/17 at 09:00 Pyridostigmine [place] (Mestinon) 60 mg TIDAC PO Last administered on 07:00; Start 09/08/17 at 08:00; Stop 09/09/17 at 09:07; Status DC Sumatriptan Succinate (Imitrex) 50 mg Q6H PRN PO HEADACHE Last administered on 09/11/17 12:20; Start 09/07/17 at 19:00 Lactobacillus Acidophilus (Lactinex) 1 tab DAILY PO Last administered on 07:58; Start 09/08/17 at 09:00 Potassium Chloride (KCl) 40 meq ONCE ONCE PO Last administered on 09/07/17 22:28; Start 09/07/17 at 20:15; Stop 09/07/17 at 20:32; Status DC Ketorolac Tromethamine (Toradol Inj) 15 mg Q6HR PRN IV PUSH for breakthrough pain Last administered on 09/10/17 09:09; Start 09/07/17 at 23:15; Stop at 11:31; Status DC Loperamide HCl (Imodium) 2 mg ONCE ONCE PO Last administered on 09/07/17 23: 46; Start 09/07/17 at 23:15; Stop 09/07/17 at 23:16; Status DC Pyridostigmine [place] (Mestinon) 60 mg ONCE ONCE PO Last administered on 14:48; Start 09/08/17 at 13:30; Stop 09/08/17 at 14:41; Status DC Morphine Sulfate (Morphine Inj) 2 mg Q4H PRN IV PUSH Breakthrough pain; Start 09/08/17 at 15:00 Sodium Chloride 500 ml @ 500 mls/hr Q24H IV Last administered on 09/08/17 17 :01; Start 09/08/17 at 15:45; Stop 09/08/17 at 16:44; Status DC Immune Globulin 20 gm/Syringe / Bag 200 ml @ 15 mls/hr Q24H IV ; Start at 17:00; Stop 09/08/17 at 19:17; Status DC Acetaminophen (Tylenol) 650 mg ONCE ONCE PO Last administered on 09/08/17 16 :32; Start 09/08/17 at 15:45; Stop 09/08/17 at 15:46; Status DC Diphenhydramine HCl (Benadryl) 25 mg ONCE ONCE PO Last administered on 16:33; Start 09/08/17 at 15:45; Stop 09/08/17 at 15:46; Status DC Dextrose 500 ml @ 30 mls/hr Q24H IV Last administered on 09/08/17 20:59; Start 09/08/17 at 15:45; Stop 09/09/17 at 08:24; Status DC Diphenhydramine HCl (Benadryl Inj) 50 mg UNSCH PRN IV PUSH ALLERGIC REACTION; Start 09/08/17 at 15:45; Stop 09/09/17 at 15:44; Status DC Epinephrine HCl (Adrenalin (1:1000) Inj) 0.3 mg Q10M PRN OTHER ANAPHYLACTIC REACTION; Start 09/08/17 at 15:45; Stop 09/09/17 at 15:44; Status DC Senna/Docusate Sodium ([place]-Colace) 1 tab BID PO Last administered on 07:58; Start 09/08/17 at 21:00 Enoxaparin Sodium (Lovenox Inj) 40 mg Q24H SQ ; Start 09/08/17 at 20:00 Immune Globulin 20 gm/Syringe / Bag 200 ml @ 15 mls/hr Q24H IV Last administered on 09/11/17 21:13; Start 09/08/17 at 20:00; Stop 09/12/17 at 19: 59 Pyridostigmine [place] (Mestinon) 120 mg TIDAC PO Last administered on 07:57; Start 09/09/17 at 12:00 Mycophenolate Mofetil (Cellcept) 500 mg DAILY@18 PO Last administered on 18:15; Start 09/09/17 at 18:00 Ketorolac Tromethamine (Toradol Inj) 30 mg Q6H PRN IV PUSH for breakthrough pain Last administered on 09/12/17 06:47; Start 09/10/17 at 11:30; Stop at 11:29 A/P Assessment and Plan 42-year-old female with a past medical history of myasthenia gravis and 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 1. Acute myasthenia gravis exacerbation: clinically improving -Continue home Mestinon TID, dose increased to 120 mg now per neurology. -Neurology following -Continue participation with PT -Cellcept added per Neurology. CM to assist patient with obtaining this medication outpatient. -Has recieved 4 of 5 doses of IVIg- due to clinical improvement, pt may not need 5th dose per neuro -Consider for discharge today 2. Right hip pain/AVN right hip -X-ray of the pelvis showed no acute fracture, moderate degenerative change noted right joint space c/w AVN -Patient will follow-up as an outpatient with orthopedic surgery for possible surgical intervention -Pain management with bowel regimen -Advised the patient that it is not safe to give her any more Narcotics given her underlying condition and low BP. 3. Leukocytosis: uncertain etiology, probable steroid reaction. -UA unremarkable. Patient does not appear septic. Afebrile. Lungs clear on exam. No clinical signs of infection. -IS, encourage hourly use while awake -Monitor vitals -Consider repeat CBC today. 4. Depression/anxiety -Continue home medications 5. Hypokalemia: resolved -Supplemented with by mouth potassium 6. Anemia: asymptomatic, iron studies consistent with iron deficiency anemia -Monitor H & H -consider supplementation with iron PO 7. DVT prophylaxis -Lovenox sq Stephen Camarena Sep 12, 2017 09:24
[2017-09-12] MEDS ORDERED: PRED5TAB PO (10:53)
[2017-09-12] MEDS ORDERED: MEST60TA PO (10:53)
[2017-09-12] MEDS ORDERED: XANA1TAB2 PO (10:53)
[2017-09-12] MEDS ORDERED: MYCO500 PO (10:53)
--- NOTE | 2017-09-12 11:09 | HHI.FF ---
Face to Face Verification Diagnosis: (1) Myasthenia gravis with exacerbation Physical Therapy Order: Evaluate and Treat, Improve ambulation, Strength and gait training Home Health Nursing Order: Medical education Medication education-adverse effect I have seen patient Brionna Rodríguez on 09/12/17. My clinical findings support the need for the requested home health care services because: Deconditioned w/ increased weakness I certify that my clinical findings support that this patient is homebound because: Unsteady gait/balance Fidelia Fiore MD Sep 12, 2017 11:09
--- NOTE | 2017-09-12 11:09 | HHI.DS ---
Discharge Summary Admission Date Sep 08, 2017 at 14:57 Discharge Date: Sep 12, 2017 Admitting Diagnosis WEAKNESS, MYASTHENIA GRAVIS (1) Myasthenia exacerbation ICD Code: G70.01 - Myasthenia exacerbation Status: Acute (2) Anxiety ICD Code: F41.9 - Anxiety Status: Chronic (3) Chronic pain ICD Code: G89.29 - Chronic pain Status: Chronic Procedures None Brief History - From Admission History of present illness from the admitting physician 42-year-old female with a past medical history significant for myasthenia gravis and avascular necrosis of the right hip presents with an exacerbation of her myasthenia gravis. The patient reports an episode of paralysis last night while she awoke from sleeping. She also reports new onset slurred speech and bilateral lower extremity weakness. She states she has double vision in her right eye. Her last IVIG infusion was 08/28. Her neurologist is Dr. Schultz. The patient reports that she fell earlier today and landed on her right hip which is now more painful than normal. X-ray showed chronic changes to the right hip without acute process. The patient is asking for breakthrough pain medication that she normally receives upon admission. Her speech is slurred. No ptosis noted. Pupils pinpoint. CBC/BMP: 09/08/17 1100 09/09/17 0645 Imaging Last Impressions Hip and Pelvis X-Ray 09/07/17 0000 Signed Impressions: Service Date/Time: Thursday, September 07, 2017 16:49 - CONCLUSION: Stable abnormal appearance of the right hip Kory Black MD PE at Discharge GENERAL: This is a well-nourished, well-developed patient, in no apparent distress. CARDIOVASCULAR: Normal rate and regular rhythm without murmurs, gallops, or rubs. RESPIRATORY: Good respiratory efforts. Breath sounds equal and clear to auscultation bilaterally. GASTROINTESTINAL: Abdomen soft, non-tender, non-distended. Normal active bowel sounds MUSCULOSKELETAL: Extremities without cyanosis, or edema. NEURO: Alert & Oriented x4. Moves all ext x4 but some mild generalized weakness. PSYCH: Appropriate mood and affect. Pt update on day of discharge Patient reports she is feeling back to baseline. Anxious to go home. We discussed discharge planning at length including the need to follow-up outpatient with neurology. 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 The patient was followed by neurology. She underwent treatment with IVIG infusion. Home dose Mestinon continued. She was started on CellCept per neurology. She is to continue on this medication on discharge. The patient also has chronic hip pain secondary to reported avascular necrosis of the right hip. She is due to see orthopedic surgery outpatient. Patient was treated with Toradol for her pain. Pt Condition on Discharge: Good Discharge Disposition: Disch w/ Home Health Serv Discharge Time: > 30 minutes Discharge Instructions DIET: Follow Instructions for: As Tolerated, No Restrictions Speech Therapy-Diet Recommends: Soft Activities you can perform: Regular-No Restrictions Follow up Referrals: Neurology - 2 Weeks New Medications: Mycophenolate (Cellcept) 500 Mg Tab 500 MG PO DAILY@18, #30 TAB Changed Medications: Prednisone (Prednisone) 5 Mg Tab 10 MG PO DAILY, #20 TAB 0 Refills (Changed from: Prednisone 10 Mg Tab 10 Mg PO DAILY Ref 0) Pyridostigmine (Mestinon) 60 Mg Tab 120 MG PO TIDAC for Manage Myastenia Gravis, #90 TAB 0 Refills (Changed from: 60 MG) Continued Medications: Alprazolam (Xanax) 1 Mg Tab 1 MG PO Q6H for Anxiety, #10 TAB 0 Refills (This prescription has been renewed) Amitriptyline (Amitriptyline) 25 Mg Tab 25 MG PO HS, TAB Citalopram (Citalopram) 40 Mg Tab 40 MG PO DAILY for Control Depression, #30 TAB 0 Refills Lactobacillus Acidophilus (Lactinex) 1 Chew 1 TAB CHEW DAILY for Nutritional Supplement, #30 TAB 0 Refills Loperamide HCl (Imodium A-D) 2 Mg Tablet PO DAILY Midodrine (Midodrine) 5 Mg Tab 7.5 MG PO TID@0700,1200,1700 for low blood pressure , #90 TAB Oxycodone-Acetaminophen (Percocet) 10-325 mg Tab 1 TAB PO Q4H PRN for PAIN, TAB 0 Refills Sumatriptan (Imitrex) 50 Mg Tab 50 MG PO as needed PRN for HEADACHE, #10 TAB 0 Refills If a satisfactory response has not been obtained at 2 hours, a second dose may be administered Fidelia Fiore MD Sep 12, 2017 11:09
== END 2017-09-12 11:45 | disposition home health service (06) | DRG 57 ==
LOC: NEPE 15:19 → NEDA 18:27 → NEPFCDU 19:23 → OBSVTOIN 09-08 14:57 → N05A 09-08 17:53
PROVIDERS: ADMIT Internal Medicine; ATTEND Family Medicine
PROC: 30233S1 Transfusion of Nonautologous Globulin into Peripheral Vein, Percutaneous Approach (ICD-10-PCS; principal; 2017-09-08)
PROC: 0T9B70Z Drainage of Bladder with Drainage Device, Via Natural or Artificial Opening (ICD-10-PCS; 2017-09-09)
DX: G70.01 Myasthenia gravis with (acute) exacerbation (principal); M87.9 Osteonecrosis, unspecified; F32.9 Major depressive disorder, single episode, unspecified; D50.9 Iron deficiency anemia, unspecified; R53.1 Weakness; R33.9 Retention of urine, unspecified; G89.29 Other chronic pain; E87.6 Hypokalemia; F41.9 Anxiety disorder, unspecified; D72.829 Elevated white blood cell count, unspecified; T38.0X5A Adverse effect of glucocorticoids and synthetic analogues, initial encounter; G43.909 Migraine, unspecified, not intractable, without status migrainosus; M79.7 Fibromyalgia; Z87.891 Personal history of nicotine dependence; Z88.0 Allergy status to penicillin; Z88.8 Allergy status to other drugs, medicaments and biological substances
CPT/HCPCS: 73502; 80048; 80053; 80307; 81001; 82728; 83540; 83550; 84443; 85025; 94150; 96365; 96366; 96372; 96375; J1170; G0378; G8987-GP; G8988-GP; J1459; J1650; J1885; J2060; J2405; J3480; J7030; J7040; J7060; J7512; J7517

== ENCOUNTER 2017-09-29 15:39 | Inpatient (IN) | payer MEDICARE, MEDICAID ==
[~2017-09-29] VITALS: Ht 165.1 cm; Wt 60.0 kg
[~2017-09-29 15:39] MED LIST changes: -CELE100C PO; -HYDR-3583 PO; -LEVA750T9 PO; +LOPE2TAB18 PO; +MYCO500 PO; +PERC10TA27 PO; -PRED10 PO; +PRED5TAB PO; -TRAM50 PO
[2017-09-29 16:04] VITALS: BP 112/70; PULSE 74; RESP 18; TEMP 97.6; O2SAT 100
[2017-09-29] MEDS ORDERED: SODIUM CHLORIDE 0.9% FLUSH 10 ML FLUSH IV FLUSH PRN ×2 (18:45→21:30)
[2017-09-29] MEDS ORDERED: HYDROmorphone HCL PF 2 MG/ML VIAL IV PUSH ONE (18:45)
[2017-09-29] MEDS ORDERED: ONDANSETRON HCL 4 MG/2 ML VIAL IV PUSH ONE (18:45)
--- NOTE | 2017-09-29 18:46 | PD ---
HPI Chief Complaint: General Weakness Time Seen by Provider: 18:39 Travel History International Travel<30 days: No Contact w/Intl Traveler<30days: No Traveled to known affect area: No History of Present Illness HPI 42-year-old female with history of myasthenia gravis, right hip avascular necrosis, here for evaluation of generalized weakness, difficulty swallowing, myasthenia gravis exacerbation, and right hip pain. Patient reports that her symptoms of weakness started yesterday evening and progressed throughout the day today. She is unable to dress herself because of the weakness. She denies dyspnea. She has AVN of the right hip which she reports is secondary to prednisone use and is scheduled for right hip replacement for November 2017. She denies fevers or recent illness. Pain in her right hip is severe, constant , worse with movement and palpation. No recent trauma. PFSH Past Medical History Hx Anticoagulant Therapy: No Anemia: Yes Arthritis: No Autoimmune Disease: Yes (MYASTHENA GRAVIS) Blood Disorders: No Anxiety: Yes Depression: Yes Heart Rhythm Problems: No Cancer: No Cardiovascular Problems: No High Cholesterol: No Chemotherapy: No Chest Pain: No Congestive Heart Failure: No Cerebrovascular Accident: No Cystic Fibrosis: No Diabetes: No Diminished Hearing: No Endocrine: No Gastrointestinal Disorders: No Genitourinary: No Headaches: Yes Hepatitis: No Hiatal Hernia: No Hypertension: No Immune Disorder: Yes (MYASTHENIA GRAVIS) Implanted Vascular Access Dvce: Yes (left chest power port) Musculoskeletal: Yes Neurologic: Yes (MYASTHENIA GRAVIS - Jul, 2013) Psychiatric: Yes (DEPRESSION, ANXIETY) Reproductive: No Respiratory: Yes (Intubated 02/24 coded) Immunizations Current: No Migraines: Yes Seizures: No Thyroid Disease: Yes (myasthenia gravis) : 2 Para: 2 Dilation and Curettage (D&C): Yes Tubal Ligation: Yes Past Surgical History Abdominal Surgery: No Body Medical Devices: LEFT IMPLANTED PORT Cardiac Surgery: No Ear Surgery: No Endocrine Surgery: Yes ( thymus removed) Eye Surgery: No Genitourinary Surgery: No Gynecologic Surgery: Yes (tubal ligation 2014) Tonsillectomy: Yes Social History Alcohol Use: No Tobacco Use: No Substance Use: No Allergies-Medications (Allergen,Severity, Reaction): Coded Allergies: penicillin G (Unverified Allergy, Severe, Anaphylaxis, 09/29/17) promethazine (Unverified Adverse Reaction, Severe, NAUSEOUS, 09/29/17) Reported Meds & Prescriptions Reported Meds & Active Scripts Active Cellcept (Mycophenolate Mofetil) 500 Mg Tab 500 Mg PO DAILY@18 Mestinon (Pyridostigmine [place]) 60 Mg Tab 120 Mg PO TIDAC Xanax (Alprazolam) 1 Mg Tab 1 Mg PO Q6H Prednisone 5 Mg Tab 10 Mg PO DAILY Lactinex (Lactobacillus Acidophilus) 1 Chew 1 Tab CHEW DAILY Midodrine 5 Mg Tab 7.5 Mg PO TID@0700,1200,1700 Walker with Front Wheels (Device) 1 Mis Mis Ea .ROUTE DIRECTED Bedside Commode (Device) 1 Mis Mis Ea .ROUTE DIRECTED Imitrex (Sumatriptan Succinate) 50 Mg Tab 50 Mg PO NEEDED PRN If a satisfactory response has not been obtained at 2 hours, a second dose may be administered Reported Imodium A-D (Loperamide HCl) 2 Mg Tablet PO DAILY Percocet (Oxycodone-Acetaminophen) 10-325 mg Tab 1 Tab PO Q4H PRN Citalopram (Citalopram Hydrobromide) 40 Mg Tab 40 Mg PO DAILY Amitriptyline (Amitriptyline HCl) 25 Mg Tab 25 Mg PO HS Review of Systems Except as stated in HPI: all other systems reviewed are Neg Physical Exam Narrative GENERAL: Well-developed, well-nourished, awake, alert, no apparent distress. SKIN: Focused skin assessment warm/dry. HEAD: Atraumatic. Normocephalic. EYES: Pupils equal and round. No scleral icterus. No injection or drainage. ENT: No nasal bleeding or discharge. Mucous membranes pink and moist. NECK: Trachea midline. No JVD. CARDIOVASCULAR: Regular rate and rhythm. No murmur appreciated. RESPIRATORY: No accessory muscle use. Clear to auscultation. Breath sounds equal bilaterally. GASTROINTESTINAL: Abdomen soft, non-tender, nondistended. Hepatic and splenic margins not palpable. MUSCULOSKELETAL: No obvious deformities. No clubbing. No cyanosis. No edema. Right hip is without obvious deformity, without warmth or erythema, with moderate diffuse tenderness. NEUROLOGICAL: Awake and alert. No obvious cranial nerve deficits. Generalized weakness with difficulty speaking. No focal deficits. PSYCHIATRIC: Appropriate mood and affect; insight and judgment normal. Data Data Last Documented VS Vital Signs Date Time Temp Pulse Resp B/P (MAP) Pulse Ox O2 Delivery O2 Flow Rate FiO2 09/29/17 20:52 98 Room Air 09/29/17 18:57 76 18 09/29/17 16:04 97.6 Orders Orders Complete Blood Count With Diff (09/29/17 18:39) Comprehensive Metabolic Panel (09/29/17 18:39) Prothrombin Time / Inr (Pt) (09/29/17 18:39) Act Partial Throm Time (Ptt) (09/29/17 18:39) Iv Access Insert/Monitor (09/29/17 18:39) Ecg Monitoring (09/29/17 18:39) Oximetry (09/29/17 18:39) Sodium Chloride 0.9% Flush (Ns Flush) (09/29/17 18:45) Hydromorphone Pf Inj (Dilaudid Pf Inj) (09/29/17 18:45) Ondansetron Inj (Zofran Inj) (09/29/17 18:45) Immune Globulin Inj (Privigen Inj) (09/29/17 19:00) Consult Neurology (09/29/17 ) (Hub Use Only)Inp Phy Cons/Ref (09/29/17 ) Sodium Chlorid 0.9% 500 Ml Inj (Ns 500 M (09/29/17 20:45) Lorazepam Inj (Ativan Inj) (09/29/17 21:00) Labs Laboratory Tests Test 09/29/17 19:33 White Blood Count 8.5 TH/MM3 Red Blood Count 3.60 MIL/MM3 Hemoglobin 9.4 GM/DL Hematocrit 29.2 % Mean Corpuscular Volume 81.0 FL Mean Corpuscular Hemoglobin 26.1 PG Mean Corpuscular Hemoglobin Concent 32.3 % Red Cell Distribution Width 16.9 % Platelet Count 386 TH/MM3 Mean Platelet Volume 8.5 FL Neutrophils (%) (Auto) 57.7 % Lymphocytes (%) (Auto) 32.6 % Monocytes (%) (Auto) 7.6 % Eosinophils (%) (Auto) 0.6 % Basophils (%) (Auto) 1.5 % Neutrophils # (Auto) 4.9 TH/MM3 Lymphocytes # (Auto) 2.8 TH/MM3 Monocytes # (Auto) 0.6 TH/MM3 Eosinophils # (Auto) 0.0 TH/MM3 Basophils # (Auto) 0.1 TH/MM3 CBC Comment DIFF FINAL Differential Comment Prothrombin Time 11.1 SEC Prothromb Time International Ratio 1.1 RATIO Activated Partial Thromboplast Time 25.7 SEC Blood Urea Nitrogen 10 MG/DL Creatinine 0.58 MG/DL Random Glucose 75 MG/DL Total Protein 7.1 GM/DL Albumin 3.4 GM/DL Calcium Level 8.5 MG/DL Alkaline Phosphatase 39 U/L Aspartate Amino Transf (AST/SGOT) 8 U/L Alanine Aminotransferase (ALT/SGPT) 9 U/L Total Bilirubin 0.3 MG/DL Sodium Level 141 MEQ/L Potassium Level 3.0 MEQ/L Chloride Level 111 MEQ/L Carbon Dioxide Level 27.1 MEQ/L Anion Gap 3 MEQ/L Estimat Glomerular Filtration Rate 115 ML/MIN MDM Medical Decision Making Medical Screen Exam Complete: Yes Emergency Medical Condition: Yes Medical Record Reviewed: Yes Differential Diagnosis Myasthenia gravis crisis, metabolic abnormality, AVN, septic arthritis unlikely Narrative Course Case discussed with the patient's neurologist Dr. Vizcarra who recommends that I give the patient a dose of IVIG 0.4 g/kg over 4 hours, as well as admit the patient to the ICU with neurology consultation. Vital signs reviewed. CBC: WBC 8.5, hemoglobin 9.4, hematocrit 29.2, platelets 386. CMP is remarkable for potassium 3.0, otherwise unremarkable. Parenteral potassium replacement ordered. Case discussed with hospitalist Dr. Bennett who will admit the patient to her service. Diagnosis Primary Impression: Myasthenia gravis Additional Impression: Chronic pain disorder Admitting Information Admitting Physician Requests: Admit Wilfrido Araujo MD Sep 29, 2017 18:46
[2017-09-29 18:57] VITALS: BP 118/61; PULSE 76; RESP 18; O2SAT 99
[2017-09-29] MEDS ORDERED: IMMUNE GLOBULIN IV ONE (19:00)
[2017-09-29 19:53] LABS: AUTOMATED NEUTROPHIL # 4.9 TH/MM3 (1.8-7.7); BASOPHIL # 0.1 TH/MM3 (0-0.2); BASOPHIL % 1.5 % (0.0-2.0); EOSINOPHIL % 0.6 % (0.0-4.0); HEMATOCRIT 29.2 % (35.0-46.0); HEMO FLAGS DIFF FINAL; LYMPH % 32.6 % (9.0-44.0); LYMPHOCYTE # 2.8 TH/MM3 (1.0-4.8); MEAN CORPUSCULAR HEMOGLOBIN 26.1 PG (27.0-34.0); MEAN CORPUSCULAR HGB CONC 32.3 % (32.0-36.0); MONO % 7.6 % (0.0-8.0); NEUT % 57.7 % (16.0-70.0); PLATELET COUNT 386 TH/MM3 (150-450); RED CELL DISTRIBUTION WIDTH 16.9 % (11.6-17.2); WHITE BLOOD COUNT 8.5 TH/MM3 (4.0-11.0)
[2017-09-29 19:57] LABS: APTT (PATIENT) 25.7 SEC (24.3-30.1); INTERNATIONAL NORMALIZED RATIO 1.1 RATIO; PROTHROMBIN TIME - PATIENT 11.1 SEC (9.8-11.6)
[2017-09-29 20:08] LABS: ANION GAP 3 MEQ/L (5-15); AST (GOT) 8 U/L (15-37); BICARBONATE 27.1 MEQ/L (21.0-32.0); BLOOD UREA NITROGEN 10 MG/DL (7-18); CHLORIDE 111 MEQ/L (98-107); GLOMERULAR FILTRATION RATE 115 ML/MIN (>89); SODIUM (NA) 141 MEQ/L (136-145)
[2017-09-29 20:09] LABS: ALT (GPT) 9 U/L (10-53)
[2017-09-29 20:11] LABS: ALKALINE PHOSPHATASE 39 U/L (45-117); TOTAL BILIRUBIN ADULT 0.3 MG/DL (0.2-1.0)
[2017-09-29 20:30] VITALS: BP 124/61; PULSE 72; RESP 14; O2SAT 96
[2017-09-29] MEDS ORDERED: SODIUM CHLORID 0.9% 500 ML INJ 500 ML IV ONE (20:45)
[2017-09-29 20:52] VITALS: O2SAT 98
[2017-09-29] MEDS ORDERED: LORazepam 2 MG/ML VIAL IV PUSH ONE (21:00)
[2017-09-29 21:19] VITALS: BP 116/61; PULSE 74; RESP 14; O2SAT 96
[2017-09-29] MEDS ORDERED: MAGNESIUM HYDROXIDE SUSP 30 ML CUP PO PRN (21:30)
[2017-09-29] MEDS ORDERED: NALOXONE HCL 0.4 MG/ML AMP IV PUSH PRN (21:30)
[2017-09-29] MEDS ORDERED: ACETAMINOPHEN 325 MG TAB PO PRN (21:30)
[2017-09-29] MEDS ORDERED: ONDANSETRON HCL 4 MG/2 ML VIAL IVP PRN (21:30)
[2017-09-29] MEDS ORDERED: SENNOSIDES 8.6 MG TAB PO PRN (21:30)
[2017-09-29] MEDS: HEPARIN SODIUM - SQ 10,000 UNITS/ML VIAL SQ SCH (22:00)
[2017-09-29] MEDS: HYDROmorphone HCL PF 2 MG/ML VIAL IV PUSH PRN (22:13)
[2017-09-29] MEDS: POTASSIUM CHLOR 20 MEQ PREMIX 100 ML IV SCH (22:56)
[2017-09-29 23:12] VITALS: BP 104/63; PULSE 57; RESP 14; O2SAT 97
[2017-09-30] VITALS (13 sets, daily range): BP systolic 92–154; BP diastolic 44–69; PULSE 53–75; RESP 12–32; TEMP 97.5–98.1; O2SAT 97–98
[2017-09-30] MEDS: POTASSIUM CHLOR 20 MEQ PREMIX 100 ML IV SCH (01:42)
[2017-09-30] MEDS ORDERED: LORazepam 2 MG/ML VIAL IV PUSH ONE (01:45)
[2017-09-30] MEDS ORDERED: SUMAtriptan INJ 6 MG/0.5 ML VIAL SQ ONE (01:45)
[2017-09-30] MEDS: HYDROmorphone HCL PF 2 MG/ML VIAL IV PUSH PRN ×6 (02:16→22:34)
[2017-09-30] MEDS ORDERED: PYRIDOSTIGMINE BROMIDE 60 MG TAB PO SCH (02:45)
[2017-09-30] MEDS ORDERED: CHLORHEXIDINE GLUCONATE 2 % 1 PACK (2 CLOTHS)(extra cloths) TOPICAL PRN (03:30)
[2017-09-30] MEDS ORDERED: POTASSIUM CHLORIDE 20 MEQ CONTROLLED RELEASE TAB PO ONE (03:45)
--- NOTE | 2017-09-30 03:53 | HHI.HP ---
[facility] No Primary Care Physician Admission Diagnosis myasthenia gravis crisis, chronic right hip pain Diagnoses: Travel History International Travel<30 Days: No Contact w/Intl Traveler <30 Da: No Traveled to Known Affected Are: No History of Present Illness 42-year-old female with a past medical history significant for myasthenia gravis and avascular necrosis of the right hip presents with an exacerbation of her myasthenia gravis. The patient reports that yesterday evening she started having bilateral lower extremity weakness and slurred speech with difficulty swallowing. Her neurologist is Dr. Vizcarra. Patient will be admitted for IVIG infusion. Review of Systems Denies fever or chills Denies blurry vision, otorrhea, rhinorrhea Denies sore throat and cough No chest pain, palpitations, shortness of breath No abdominal pain Denies constipation/diarrhea/nausea/vomiting Positive weakness throughout No rashes Past Family Social History Past Medical History Myasthenia gravis Avascular necrosis of the right hip Past Surgical History Thymus removed Bilateral tubal ligation Left chest port placement Tonsillectomy Reported Medications Reported Meds & Active Scripts Active Cellcept (Mycophenolate Mofetil) 500 Mg Tab 500 Mg PO DAILY@18 Mestinon (Pyridostigmine Withee) 60 Mg Tab 120 Mg PO TIDAC Xanax (Alprazolam) 1 Mg Tab 1 Mg PO Q6H Prednisone 5 Mg Tab 10 Mg PO DAILY Lactinex (Lactobacillus Acidophilus) 1 Chew 1 Tab CHEW DAILY Midodrine 5 Mg Tab 7.5 Mg PO TID@0700,1200,1700 Walker with Front Wheels (Device) 1 Mis Mis Ea .ROUTE DIRECTED Bedside Commode (Device) 1 Mis Mis Ea .ROUTE DIRECTED Imitrex (Sumatriptan Succinate) 50 Mg Tab 50 Mg PO NEEDED PRN If a satisfactory response has not been obtained at 2 hours, a second dose may be administered Reported Imodium A-D (Loperamide HCl) 2 Mg Tablet PO DAILY Percocet (Oxycodone-Acetaminophen) 10-325 mg Tab 1 Tab PO Q4H PRN Citalopram (Citalopram Hydrobromide) 40 Mg Tab 40 Mg PO DAILY Amitriptyline (Amitriptyline HCl) 25 Mg Tab 25 Mg PO HS Allergies: Coded Allergies: penicillin G (Unverified Allergy, Severe, Anaphylaxis, 09/29/17) promethazine (Unverified Adverse Reaction, Severe, NAUSEOUS, 09/29/17) Family History Father with diabetes mellitus Social History Quit smoking 2 months ago. Smoked half a pack per day 20 years. Denies alcohol, illicit drugs. Physical Exam Vital Signs Vital Signs Date Time Temp Pulse Resp B/P (MAP) Pulse Ox O2 Delivery O2 Flow Rate FiO2 09/30/17 02:46 14 09/30/17 02:46 14 09/30/17 02:16 60 14 154/69 (97) 98 Room Air 09/30/17 01:13 54 14 92/60 (71) 97 Room Air 09/30/17 00:00 60 14 101/59 (73) 98 Room Air 09/29/17 23:12 57 14 104/63 (77) 97 Room Air 09/29/17 21:54 82 14 114/86 09/29/17 21:19 74 14 116/61 (79) 96 Room Air 09/29/17 20:52 98 Room Air 09/29/17 20:30 72 14 124/61 (82) 96 Room Air 09/29/17 18:57 76 18 118/61 (80) 99 Room Air 09/29/17 16:04 97.6 74 18 112/70 (84) 100 Physical Exam GENERAL: female sitting up in bed SKIN: No rashes, ecchymoses or lesions. Cool and dry. HEAD: Atraumatic. Normocephalic. No temporal or scalp tenderness. EYES: Pupils pinpoint. Extraocular motions intact. No scleral icterus. No injection or drainage. ENT: Nose without bleeding, purulent drainage or septal hematoma. Throat without erythema, tonsillar hypertrophy or exudate. Uvula midline. Airway patent. NECK: Trachea midline. No JVD or lymphadenopathy. Supple, nontender, no meningeal signs. CARDIOVASCULAR: Regular rate and rhythm without murmurs, gallops, or rubs. RESPIRATORY: Clear to auscultation. Breath sounds equal bilaterally. No wheezes , rales, or rhonchi. GASTROINTESTINAL: Abdomen soft, non-tender, nondistended. No hepato-splenomegaly , or palpable masses. No guarding. MUSCULOSKELETAL: Extremities without clubbing, cyanosis, or edema. No joint tenderness, effusion, or edema noted. No calf tenderness. Negative Homans sign bilaterally. NEUROLOGICAL: Awake and alert. Cranial nerves II through XII intact. Difficult to assess strength as patient's participation in the exam was questionable. Slurred speech. Laboratory Laboratory Tests Test 09/29/17 19:33 White Blood Count 8.5 Red Blood Count 3.60 Hemoglobin 9.4 Hematocrit 29.2 Mean Corpuscular Volume 81.0 Mean Corpuscular Hemoglobin 26.1 Mean Corpuscular Hemoglobin Concent 32.3 Red Cell Distribution Width 16.9 Platelet Count 386 Mean Platelet Volume 8.5 Neutrophils (%) (Auto) 57.7 Lymphocytes (%) (Auto) 32.6 Monocytes (%) (Auto) 7.6 Eosinophils (%) (Auto) 0.6 Basophils (%) (Auto) 1.5 Neutrophils # (Auto) 4.9 Lymphocytes # (Auto) 2.8 Monocytes # (Auto) 0.6 Eosinophils # (Auto) 0.0 Basophils # (Auto) 0.1 CBC Comment DIFF FINAL Differential Comment Prothrombin Time 11.1 Prothromb Time International Ratio 1.1 Activated Partial Thromboplast Time 25.7 Blood Urea Nitrogen 10 Creatinine 0.58 Random Glucose 75 Total Protein 7.1 Albumin 3.4 Calcium Level 8.5 Alkaline Phosphatase 39 Aspartate Amino Transf (AST/SGOT) 8 Alanine Aminotransferase (ALT/SGPT) 9 Total Bilirubin 0.3 Sodium Level 141 Potassium Level 3.0 Chloride Level 111 Carbon Dioxide Level 27.1 Anion Gap 3 Estimat Glomerular Filtration Rate 115 Result Diagram: 09/29/17193209/29/171932 Caprini VTE Risk Assessment Caprini VTE Risk Assessment: No/Low Risk (score <= 1) Caprini Risk Assessment Model Point Value = 1 Point Value = 2 Point Value = 3 Point Value = 5 Age 41-60 Minor surgery BMI > 25 kg/m2 Swollen legs Varicose veins or History of unexplained or recurrent spontaneous Oral contraceptives or hormone replacement Sepsis (< 1 month) Serious lung disease, including pneumonia (< 1 month) Abnormal pulmonary function Acute myocardial infarction Congestive heart failure (< 1 month) History of inflammatory bowel disease Medical patient at bed rest Age 61-74 Arthroscopic surgery Major open surgery (> 45 min) Laparoscopic surgery (> 45 min) Malignancy Confined to bed (> 72 hours) Immobilizing plaster cast Central venous access Age >= 75 History of VTE Family history of VTE Factor V Leiden Prothrombin [id number] Lupus anticoagulant Anticardiolipin antibodies Elevated serum homocysteine Heparin-induced thrombocytopenia Other congenital or acquired thrombophilia Stroke (< 1 month) Elective arthroplasty Hip, pelvis, or leg fracture Acute spinal cord injury (< 1 month) Prophylaxis Regimen Total Risk Factor Score Risk Level Prophylaxis Regimen 0-1 Low Early ambulation 2 Moderate Order ONE of the following: *Sequential Compression Device (SCD) *Heparin 5000 units SQ BID 3-4 Higher Order ONE of the following medications: *Heparin 5000 units SQ TID *Enoxaparin/Lovenox 40 mg SQ daily (WT < 150 kg, CrCl > 30 mL/min) *Enoxaparin/Lovenox 30 mg SQ daily (WT < 150 kg, CrCl > 10-29 mL/min) *Enoxaparin/Lovenox 30 mg SQ BID (WT < 150 kg, CrCl > 30 mL/min) AND/OR *Sequential Compression Device (SCD) 5 or more Highest Order ONE of the following medications: *Heparin 5000 units SQ TID (Preferred with Epidurals) *Enoxaparin/Lovenox 40 mg SQ daily (WT < 150 kg, CrCl > 30 mL/min) *Enoxaparin/Lovenox 30 mg SQ daily (WT < 150 kg, CrCl > 10-29 mL/min) *Enoxaparin/Lovenox 30 mg SQ BID (WT < 150 kg, CrCl > 30 mL/min) AND *Sequential Compression Device (SCD) Assessment and Plan Assessment and Plan Assessment/plan: 1. Acute myasthenia gravis exacerbation Neurology consulted, appreciate recommendations Patient undergoing IVIG infusion Continue home Mestinon 2. Depression/anxiety Continue home medications 3. Hypokalemia Supplemented with by mouth potassium Follow-up BMP FEN Regular diet Electrolytes: as above Physician Certification 2 Midnight Certification Type: Admission for Inpatient Services Order for Inpatient Services The services are ordered in accordance with Medicare regulations or non- Medicare payer requirements, as applicable. In the case of services not specified as inpatient-only, they are appropriately provided as inpatient services in accordance with the 2-midnight benchmark. Estimated LOS (days): 2 2 days is the estimated time the patient will need to remain in the hospital, assuming treatment plan goals are met and no additional complications. Post-Hospital Plan: Not yet determined Jessy Bennett MD Sep 30, 2017 03:53
[2017-09-30] MEDS: CHLORHEXIDINE GLUCONATE 2 % 1 PACK (2 CLOTHS)(taper/protocol) TOPICAL SCH (04:00)
[2017-09-30] MEDS: MIDODRINE 5 MG TAB PO SCH ×3 (05:33→18:31)
[2017-09-30] MEDS: HEPARIN SODIUM - SQ 10,000 UNITS/ML VIAL SQ SCH ×3 (05:33→20:22)
[2017-09-30 08:20] LABS: AUTOMATED NEUTROPHIL # 4.9 TH/MM3 (1.8-7.7); BASOPHIL # 0.1 TH/MM3 (0-0.2); BASOPHIL % 1.2 % (0.0-2.0); EOSINOPHIL # 0.1 TH/MM3 (0-0.4); HEMO FLAGS DIFF FINAL; LYMPH % 36.5 % (9.0-44.0); LYMPHOCYTE # 3.3 TH/MM3 (1.0-4.8); MEAN CELL VOLUME 81.7 FL (80.0-100.0); MEAN CORPUSCULAR HEMOGLOBIN 26.3 PG (27.0-34.0); MEAN CORPUSCULAR HGB CONC 32.1 % (32.0-36.0); MONO % 6.2 % (0.0-8.0); NEUT % 55.1 % (16.0-70.0); PLATELET COUNT 426 TH/MM3 (150-450); RED BLOOD COUNT 3.54 MIL/MM3 (4.00-5.30); RED CELL DISTRIBUTION WIDTH 16.9 % (11.6-17.2)
[2017-09-30 08:43] LABS: BICARBONATE 26.7 MEQ/L (21.0-32.0); POTASSIUM 3.7 MEQ/L (3.5-5.1)
[2017-09-30] MEDS: PYRIDOSTIGMINE BROMIDE 60 MG TAB PO SCH ×3 (09:27→18:32)
[2017-09-30] MEDS: CITALOPRAM HYDROBROMIDE 40 MG TAB PO SCH (09:27)
[2017-09-30] MEDS: SODIUM CHLORIDE 0.9% FLUSH 10 ML FLUSH IV FLUSH SCH ×2 (10:27→20:22)
[2017-09-30 10:51] LABS: BLOOD GAS HCO3 27 mmol/L (22-26); BLOOD GAS PCO2 46 mmHg (38-42); BLOOD GAS PO2 67 mmHg (61-120)
[2017-09-30 10:52] LABS: BLOOD GAS BASE EXCESS 2.1 mmol/L (-2-2); BLOOD GAS CARBOXYHEMOGLOBIN 1.1 % (0-4); BLOOD GAS METHEMOGLOBIN 1.2 % (0-2); BLOOD GAS O2 HGB SATURATION 90 % (90-100); BLOOD GAS OXYGEN CONTENT 12.1 Vol % (12.0-20.0); BLOOD GAS TOTAL HGB 9.4 G/DL (12.0-16.0); CRITICAL VALUE NO; DRAW SITE LT RADIAL; FIO2 21 %; NUMBER OF ARTERIAL PUNCTURES 1; STAT YES; TEMP CORR TO 98.6
--- NOTE | 2017-09-30 11:23 | HHI.PR ---
Subjective Remarks from outside- patient observed talking on the phone animatedly, appears comfortable when I walked in- asking for pain meds Objective Vitals Vital Signs Date Time Temp Pulse Resp B/P (MAP) Pulse Ox O2 Delivery O2 Flow Rate FiO2 09/30/17 06:00 63 09/30/17 04:00 98.1 60 23 112/54 (73) 09/30/17 02:46 14 09/30/17 02:46 14 09/30/17 02:16 60 14 154/69 (97) 98 Room Air 09/30/17 01:13 54 14 92/60 (71) 97 Room Air 09/30/17 00:00 60 14 101/59 (73) 98 Room Air 09/29/17 23:12 57 14 104/63 (77) 97 Room Air 09/29/17 21:54 82 14 114/86 09/29/17 21:19 74 14 116/61 (79) 96 Room Air 09/29/17 20:52 98 Room Air 09/29/17 20:30 72 14 124/61 (82) 96 Room Air 09/29/17 18:57 76 18 118/61 (80) 99 Room Air 09/29/17 16:04 97.6 74 18 112/70 (84) 100 I/O 09/29/17 09/29/17 09/29/17 09/30/17 09/30/17 09/30/17 07:00 15:00 23:00 07:00 15:00 23:00 Intake Total 500 ml 300 ml Balance 500 ml 300 ml Intake Oral 200 ml IV Total 500 ml 100 ml # Bowel Movements 0 Result Diagram: 09/30/1773909/30/1740 Objective Remarks awake and alert, appears comfortable good sats , regular rhythm, not tachycrdic lungs- no rales regular rhythm abdomen soft, nontender purewick in place extremities no edema moves all spontaenously- generalized weakness A/P Assessment and Plan 42 years old Acute myasthenia gravis exacerbation Neurology consulted, will start IVIG- per neurology recommendations Continue home Mestinon patient also on chronic Prednisone-- per pt for 7 years will resume baseline uses a can or walker Depression/anxiety Continue home medications- xanax/citalopram Hypokalemia- replace and ff Supplemented with by mouth potassium Follow-up BMP chronic pain history of AVN of the hip per opateint ff by painter spray- Dr. Nassar continue on her Percocet 10 q 6 and IV dilaudid breakthrough while here per patient plan to have hip surgery in the near future- ff by an Ortho Hypokalemia- corrected PT consult Heparin Sq for DVT prophylaxis FEN Regular diet Electrolytes: as above Clemencia Martines MD Sep 30, 2017 11:23
[2017-09-30] MEDS ORDERED: oxyCODONE/ACETAMINOPHEN 10 MG/325 MG TAB PO PRN (11:45)
[2017-09-30] MEDS: predniSONE 10 MG TAB PO SCH (12:17)
[2017-09-30] MEDS: ALPRAZolam 1 MG TAB PO PRN ×2 (12:17→20:21)
--- NOTE | 2017-09-30 13:19 | MB ---
cc: LIZY JONES DATE OF CONSULTATION 09/30/2017 HISTORY OF PRESENT ILLNESS A 42-year-old woman well-known to Neurology Service here with history of myasthenia gravis. She has avascular necrosis of the hip and is supposed to have surgery in November. She has been under lot of stress at home with her ex- and gets almost monthly IVIG here in the hospital. I have never been quite sure why she cannot get it from her insurance as an outpatient. Nevertheless she was admitted yesterday with difficulty swallowing and talking and worsening of her myasthenia. She just had IVIG at the beginning of this month. Her steroids have been tapered over the last several months from 20 mg a day which she had been on for years down to 5 mg a day but she has had in the last 6 months episodes where she had difficulty talking like she does now. She did get a dose of IVIG last night. I last saw her on March 08 of this year, a 41-year-old woman with some anxiety, depression, migraines, some myasthenia gravis, getting monthly IVIG, on CellCept evidently in the past, history of CO2 retention, tubes tied, Lyme titer negative, RPR and MIMI negative. Acetylcholine receptor antibodies positive in the past. Thyroid and liver functions have been normal. One-time her paCO2 was 57. She actually had been in shelter and intubated in [facility] at one point and she had plasma exchange x5 over at [facility] but no IVIG. She did see Dr. Baron on 06/06/2017 for right hip pain, progressive. It does not sound like he wanted to actually do surgery initially although the patient wanted to have surgery done. FAMILY HISTORY Negative for seizure or stroke. Positive for cancer. SOCIAL HISTORY Not a smoker or drinker. Lives alone. REVIEW OF SYSTEMS In the past no hypertension, diabetes, hypercholesterolemia, NE, CABG, cardiac arrhythmia, renal, hepatic, thyroid disease, lupus, ulcer, cancer, seizure, stroke. MEDICATIONS AT HOME 1. CellCept 500 per day, just started yesterday. 2. Mestinon 60 - Looks like two pills. I believe she gets it q.i.d. 3. Xanax. 4. Prednisone 5 mg a day. 5. Midodrine five t.i.d. 6. Imitrex p.r.n. 7. Percocet 10/325 one q. 4-6. 8. Citalopram p.r.n. 9. Elavil 25. ALLERGIES PENICILLIN. PROMETHAZINE. PHYSICAL EXAMINATION VITAL SIGNS: Afebrile, 63, 23, 112/54. NECK: There were no carotid bruits. HEART: Regular rhythm. I do not detect a murmur. NEUROLOGICAL EXAMINATION: Her speech is a little bit slurred. She uses her hand to keep her jaw closed at times when she talks. She does have some ptosis, I would say mild bilaterally. Extraocular motions intact. Face is otherwise symmetric. Tongue midline. She had give-away weakness bilateral upper extremities, about a 4-/5. 5/5 in tibialis anterior and iliopsoas bilaterally. Toes are downgoing bilaterally. DTRs are trace throughout. PSYCHIATRIC: She appears somewhat anxious LABORATORY DATA CBC shows hematocrit of 26, otherwise was essentially normal. Sed rate has been normal, last in 2014. As noted before, RPR, Lyme, MIMI has been negative. Her last acetylcholine receptor antibody titer finding were 9.5 with a negative striatal muscle antibody back in 2014. Urine drug screen in the past positive for benzos and opiates, although we know she is on those. She takes Xanax also. UA was negative a month ago. Basic metabolic profile now was normal. LFTs are normal. Total protein is normal. CPK was normal. Coags are normal. IMAGING STUDIES She had an x-ray in August, showed stable appearance of that right hip. She had a head CT in August that was read as normal. Flattening of the right hip consistent with AVM seen on another x-ray on the right side. IMPRESSION AND RECOMMENDATIONS The myasthenia gravis exacerbation. I note she was given IVIG and a dose of the CellCept. The amitriptyline can have anticholinergic properties, although usually okay with myasthenia, but that could be considered being stopped in the future. She continues on her Mestinon. As far as her Xanax goes I would just give her which she is on at home and have the med team also give her p.r.n. narcotics as she gets at home - the Percocet. I would give her a total dose of the IVIG of 2 gm/kg and that could be done over three days. I note she got 20 grams yesterday, though my recommended dose and I would ask the med team to give her a total dose to split up the 2 grams over 3 days would be fine, 2 gm/kg split over 3 days. As far as doing her hip on CellCept, I did talk with one of the orthopedics here in the hospital and we will also call Dr. Baron to see if he wanted to do her hip now before she gets started on CellCept to diminish any risk of postop infection on an immunosuppressant. MD ROSS Lemon/JULIET /10:18 AM /1:12 PM
[2017-09-30] MEDS ORDERED: D5W as prime bag (IVIG as secondary) IV SCH (14:15)
[2017-09-30] MEDS ORDERED: DIPHENHYDRAMINE HCL 25 MG CAP Pre-med PO ONE (14:15)
[2017-09-30] MEDS ORDERED: DIPHENHYDRAMINE HCL 50 MG/ML VIAL Reaction Med IV PUSH PRN (14:15)
[2017-09-30] MEDS ORDERED: NS 500 ML Pre-hydration IV SCH (14:15)
[2017-09-30] MEDS ORDERED: ACETAMINOPHEN 325 MG TAB Pre-med PO ONE (14:15)
[2017-09-30] MEDS ORDERED: EPINEPHRINE HCL (1:1000) 1 MG/ML AMP Reaction Med OTHER PRN (14:15)
[2017-09-30] MEDS: IMMUNE GLOBULIN INJ 35 GM in SYRINGE/BAG 1 EA IV SCH (15:37)
[2017-09-30] MEDS ORDERED: MYCOPHENOLATE MOFETIL 500 MG TAB PO SCH (18:00)
[2017-09-30] MEDS: oxyCODONE/ACETAMINOPHEN 10 MG/325 MG TAB PO PRN (20:21)
[2017-09-30] MEDS: AMITRIPTYLINE HCL 25 MG TAB PO SCH (20:21)
[2017-10-01] VITALS (17 sets, daily range): BP systolic 101–122; BP diastolic 52–64; PULSE 60–115; RESP 12–27; TEMP 98–98.6; O2SAT 96–100
[2017-10-01] MEDS: HYDROmorphone HCL PF 2 MG/ML VIAL IV PUSH PRN ×6 (02:40→23:21)
[2017-10-01] MEDS: CHLORHEXIDINE GLUCONATE 2 % 1 PACK (2 CLOTHS)(taper/protocol) TOPICAL SCH (04:00)
[2017-10-01] MEDS: ALPRAZolam 1 MG TAB PO PRN ×3 (04:41→20:44)
[2017-10-01] MEDS: oxyCODONE/ACETAMINOPHEN 10 MG/325 MG TAB PO PRN ×3 (04:41→20:45)
[2017-10-01] MEDS: HEPARIN SODIUM - SQ 10,000 UNITS/ML VIAL SQ SCH ×3 (06:00→21:45)
[2017-10-01] MEDS: MIDODRINE 5 MG TAB PO SCH ×3 (06:55→17:47)
[2017-10-01] MEDS: PYRIDOSTIGMINE BROMIDE 60 MG TAB PO SCH ×3 (06:55→17:47)
--- NOTE | 2017-10-01 08:10 | HHI.PR ---
Subjective Remarks all better Objective Vital Signs Date Time Temp Pulse Resp B/P (MAP) Pulse Ox O2 Delivery O2 Flow Rate FiO2 10/01/17 07:25 18 10/01/17 06:26 16 10/01/17 06:00 99 10/01/17 04:00 74 10/01/17 04:00 98.1 74 17 122/57 (78) 96 10/01/17 02:00 70 10/01/17 00:15 80 10/01/17 00:00 60 10/01/17 00:00 98.2 60 12 106/52 (70) 98 09/30/17 22:00 53 09/30/17 20:00 97.5 75 32 95/55 (68) 98 09/30/17 20:00 Room Air 09/30/17 20:00 75 09/30/17 19:30 69 24 09/30/17 18:00 65 09/30/17 16:00 Room Air 09/30/17 16:00 61 22 09/30/17 16:00 61 09/30/17 15:37 62 25 09/30/17 12:14 58 09/30/17 12:14 58 12 95/44 (61) 98 09/30/17 12:00 63 09/30/17 12:00 63 23 09/30/17 12:00 Room Air 09/30/17 10:00 72 29 09/30/17 10:00 72 I/O 09/30/17 09/30/17 09/30/17 10/01/17 10/01/17 10/01/17 07:00 15:00 23:00 07:00 15:00 23:00 Intake Total 300 ml 1020 ml 1558 ml Output Total 2400 ml Balance 300 ml -1380 ml 1558 ml Intake Oral 200 ml 1020 ml 1000 ml IV Total 100 ml 558 ml Output Urine Total 2400 ml # Voids 5 # Bowel Movements 0 1 Result Diagram: 09/30/1740 09/30/17 0740 Objective Remarks no ptosis speech now nl Assessment and Plan Assessment and Plan imp i dw dr strickland and he was to call dr costa about earlier hip surgery and hold on cellcept i will dw dr costa today i dced cellcept for now she can go to floor oob and after full last dose of ivig could dc Jayce Dover MD Oct 01, 2017 08:10
[2017-10-01] MEDS: SODIUM CHLORIDE 0.9% FLUSH 10 ML FLUSH IV FLUSH SCH ×2 (08:58→20:45)
[2017-10-01] MEDS: CITALOPRAM HYDROBROMIDE 40 MG TAB PO SCH (08:58)
[2017-10-01] MEDS: predniSONE 10 MG TAB PO SCH (08:58)
--- NOTE | 2017-10-01 14:12 | HHI.PR ---
Subjective Remarks patient was up and ambulating around her room main concern is her pain meds-on DC states she ran out of them - ff by Dr. Nassar Objective Vitals Vital Signs Date Time Temp Pulse Resp B/P (MAP) Pulse Ox O2 Delivery O2 Flow Rate FiO2 10/01/17 11:47 18 10/01/17 10:00 69 10/01/17 09:00 86 10/01/17 08:57 98.6 68 27 101/58 (72) 98 10/01/17 08:00 73 10/01/17 07:00 97 10/01/17 06:26 16 10/01/17 06:00 99 10/01/17 04:00 74 10/01/17 04:00 98.1 74 17 122/57 (78) 96 10/01/17 02:00 70 10/01/17 00:15 80 10/01/17 00:00 60 10/01/17 00:00 98.2 60 12 106/52 (70) 98 09/30/17 22:00 53 09/30/17 20:00 97.5 75 32 95/55 (68) 98 09/30/17 20:00 Room Air 09/30/17 20:00 75 09/30/17 19:30 69 24 09/30/17 18:00 65 09/30/17 16:00 Room Air 09/30/17 16:00 61 22 09/30/17 16:00 61 09/30/17 15:37 62 25 I/O 09/30/17 09/30/17 09/30/17 10/01/17 10/01/17 10/01/17 07:00 15:00 23:00 07:00 15:00 23:00 Intake Total 300 ml 1020 ml 1558 ml Output Total 2400 ml Balance 300 ml -1380 ml 1558 ml Intake Oral 200 ml 1020 ml 1000 ml IV Total 100 ml 558 ml Output Urine Total 2400 ml # Voids 5 # Bowel Movements 0 1 Result Diagram: 09/30/17 0740 09/30/17 0740 Objective Remarks awake and alert, appears comfortable good sats , regular rhythm lungs- no rales regular rhythm abdomen soft, nontender extremities no edema ambulating around her room - stable slowly A/P Assessment and Plan 42 years old Acute myasthenia gravis exacerbation Neurology ff- on IVIG- per neurology till 10/02 pm Continue home Mestinon patient also on chronic Prednisone-- per pt for 7 years will resume baseline uses a can or walker Depression/anxiety Continue home medications- xanax/citalopram Hypokalemia-corrected Supplemented with by mouth potassium Follow-up BMP chronic pain history of AVN of the hip per opateint ff by bridge painter- Dr. Nassar continue on her Percocet 10 q 6 and IV dilaudid breakthrough while here per patient plan to have hip surgery in the near future- ff by an Ortho Hypokalemia- corrected PT consult Heparin Sq for DVT prophylaxis FEN Regular diet Electrolytes: as above our staff called Dr. Pearson- pain management office- set up to ff up 10/06 she got 90 pills of percocet 10 for q 8prescribed 09/06 theri plan was to decrease dose admits to using extra on days that she ahs more pain I will write script for meds till seen by Pain management 10/06-when Clemencia Cortez MD Oct 01, 2017 14:12
[2017-10-01] MEDS: IMMUNE GLOBULIN INJ 35 GM in SYRINGE/BAG 1 EA IV SCH (16:50)
[2017-10-01] MEDS: AMITRIPTYLINE HCL 25 MG TAB PO SCH (20:44)
[2017-10-02] VITALS (7 sets, daily range): BP systolic 108–156; BP diastolic 55–68; PULSE 71–88; RESP 18–20; TEMP 97.4–98.3; O2SAT 96–99
[2017-10-02] MEDS ORDERED: diphenhydrAMINE HCL 50 MG/ML VIAL IM ONE
[2017-10-02] MEDS: HYDROmorphone HCL PF 2 MG/ML VIAL IV PUSH PRN ×6 (03:23→22:41)
[2017-10-02] MEDS: CHLORHEXIDINE GLUCONATE 2 % 1 PACK (2 CLOTHS)(taper/protocol) TOPICAL SCH (03:24)
[2017-10-02] MEDS: ALPRAZolam 1 MG TAB PO PRN ×3 (04:30→21:17)
[2017-10-02] MEDS: oxyCODONE/ACETAMINOPHEN 10 MG/325 MG TAB PO PRN ×3 (04:31→21:18)
[2017-10-02] MEDS: HEPARIN SODIUM - SQ 10,000 UNITS/ML VIAL SQ SCH ×3 (04:31→21:18)
[2017-10-02] MEDS: MIDODRINE 5 MG TAB PO SCH ×3 (07:22→16:33)
[2017-10-02] MEDS: PYRIDOSTIGMINE BROMIDE 60 MG TAB PO SCH ×3 (07:22→16:32)
[2017-10-02] MEDS: CITALOPRAM HYDROBROMIDE 40 MG TAB PO SCH (08:06)
[2017-10-02] MEDS: predniSONE 10 MG TAB PO SCH (08:06)
[2017-10-02] MEDS: SODIUM CHLORIDE 0.9% FLUSH 10 ML FLUSH IV FLUSH SCH ×2 (08:06→21:18)
--- NOTE | 2017-10-02 09:50 | HHI.PR ---
Review/Management Diagnosis/Plan: (1) possible mild myasthenia gravis exacerbation Status: Acute Plan: last ivig today resume cellcept hip surgery being considered in couple of months iv rituxamab also being looked into d/c planning tomorrow (2) possible psychosomatic syndrome Status: Acute (3) Migraine ICD Codes: G43.909 - Migraine Status: Chronic (4) Depression ICD Codes: F32.9 - Depression Status: Chronic Subjective Subjective Comments No acute events reported, feels stronger No headache No chest pain No dyspnea Active Medications Current Medications Medications (Trade) Dose Ordered Sig/Gómez Route Start Time Stop Time Status Last Admin (NS Flush) 2 ml UNSCH PRN IV FLUSH 09/29/17 21:30 (NS Flush) 2 ml BID IV FLUSH 09/30/17 09:00 10/02/17 08:06 (Tylenol) 650 mg Q4H PRN PO 09/29/17 21:30 (Zofran Inj) 4 mg Q6H PRN IVP 09/29/17 21:30 (Heparin Inj) 5,000 units Q8H SQ 09/29/17 22:00 (Narcan Inj) 0.4 mg UNSCH PRN IV PUSH 09/29/17 21:30 (Milk Of Magnesia Liq) 30 ml Q12H PRN PO 09/29/17 21:30 (Senokot) 17.2 mg Q12H PRN PO 09/29/17 21:30 (Elavil) 25 mg HS PO 09/30/17 21:00 10/01/17 20:44 (CeleXA) 40 mg DAILY PO 09/30/17 09:00 10/02/17 08:06 (Proamatine) 7.5 mg TID@0700,1200,1700 PO 09/30/17 07:00 10/02/17 07:22 (Mestinon) 120 mg TIDAC PO 09/30/17 08:00 10/02/17 07:22 Miscellaneous Information Patient in critical care unit? Ass... [id number] .XX 09/30/17 03:30 (Chlorhexidine 2% Cloth) 3 pack DAILY@04 TOPICAL 09/30/17 04:00 10/04/17 04:01 10/01/17 04:00 (Chlorhexidine 2% Cloth) 3 pack UNSCH PRN TOPICAL 09/30/17 03:30 10/05/17 03:17 (Deltasone) 10 mg DAILY PO 09/30/17 12:00 10/02/17 08:06 (Xanax) 1 mg Q8H PRN PO 09/30/17 11:45 10/02/17 04:30 (Percocet 10-325 Mg) 1 tab Q8HR PRN PO 09/30/17 14:00 10/02/17 04:31 Immune Globulin 35 gm/Syringe / Bag 350 ml @ 15.6 mls/hr Q24H IV 09/30/17 16:00 10/02/17 15:59 10/01/17 16:50 (Dilaudid Pf Inj) 0.2 mg Q4H PRN IV PUSH 10/01/17 16:00 10/02/17 07:23 Allergies Allergies Coded Allergies penicillin G (Unverified Allergy, Severe, Anaphylaxis, 09/29/17) promethazine (Unverified Adverse Reaction, Severe, NAUSEOUS, 09/29/17) Review of Systems All other ROS: ROS reviewed as documented in chart Exam I&O / VS 10/02/17 10/02/17 10/03/17 15:00 23:00 07:00 # Voids 6 Vital Signs Date Time Temp Pulse Resp B/P (MAP) Pulse Ox O2 Delivery O2 Flow Rate FiO2 10/02/17 08:10 97.4 88 18 123/64 (83) 99 10/02/17 08:06 16 10/02/17 04:00 98.3 85 18 110/62 (78) 97 10/02/17 00:00 97.9 72 18 116/55 (75) 98 10/01/17 20:00 98.1 63 18 103/57 (72) 97 10/01/17 16:52 98.1 72 20 113/64 (80) 100 10/01/17 16:50 72 20 113/64 10/01/17 14:00 115 10/01/17 13:00 85 10/01/17 12:54 98.0 70 20 104/58 (73) 98 10/01/17 12:15 66 10/01/17 12:00 86 10/01/17 11:47 18 10/01/17 11:00 76 10/01/17 10:00 69 General: Alert and Oriented, No acute distress Eye: PERRL, EOMI, Normal conjuctiva Respiratory: Non-labored respirations Cardiology: Normal rate Neurologic: Alert, Oriented, Normal motor, No focal defects, CN II-XII intact, Normal DTR's Psychiatric: Cooperative, Appropriate mood & affect, Normal judgement Artie Vizcarra MD Oct 02, 2017 09:50
[2017-10-02] MEDS ORDERED: diphenhydrAMINE HCL 25 MG CAP PO PRN (10:15)
--- NOTE | 2017-10-02 10:22 | HHI.PR ---
Subjective Remarks strength stronger no nausea or vomiting complained ot itching last evening- - asked for IM Benadryl no rahes, no hives on exam Objective Vitals Vital Signs Date Time Temp Pulse Resp B/P (MAP) Pulse Ox O2 Delivery O2 Flow Rate FiO2 10/02/17 08:10 97.4 88 18 123/64 (83) 99 10/02/17 08:06 16 10/02/17 04:00 98.3 85 18 110/62 (78) 97 10/02/17 00:00 97.9 72 18 116/55 (75) 98 10/01/17 20:00 98.1 63 18 103/57 (72) 97 10/01/17 16:52 98.1 72 20 113/64 (80) 100 10/01/17 16:50 72 20 113/64 10/01/17 14:00 115 10/01/17 13:00 85 10/01/17 12:54 98.0 70 20 104/58 (73) 98 10/01/17 12:15 66 10/01/17 12:00 86 10/01/17 11:47 18 10/01/17 11:00 76 I/O 10/01/17 10/01/17 10/01/17 10/02/17 10/02/17 10/02/17 07:00 15:00 23:00 07:00 15:00 23:00 Intake Total 1558 ml Balance 1558 ml Intake Oral 1000 ml IV Total 558 ml # Voids 5 6 # Bowel Movements 1 Result Diagram: 09/30/1740 09/30/17 0740 Objective Remarks awake and alert, good sats at room good sats , regular rhythm lungs- no rales regular rhythm abdomen soft, nontender extremities no edema strenght- motor 5/5 on all extremities ambulating around her room - stable slowly A/P Assessment and Plan 42 years old Acute myasthenia gravis exacerbation Neurology ff- on IVIG- per neurology till 10/02 Continue home Mestinon continue on chronic Prednisone-- per pt for 7 years will resume baseline uses a can or walker Depression/anxiety Continue home medications- xanax/citalopram Hypokalemia-corrected Supplemented with by mouth potassium chronic pain history of AVN of the hip per opateint ff by design painter- Dr. Nassar continue on her Percocet 10 q 6 and IV dilaudid breakthrough while here per patient plan to have hip surgery in the near future- ff by an Ortho Hypokalemia- corrected PT consult Heparin Sq for DVT prophylaxis FEN Regular diet Electrolytes: as above our staff called Dr. Pearson- pain management office- set up to ff up 10/06 she got 90 pills of percocet 10 for q 8prescribed 09/06 theri plan was to decrease dose admits to using extra on days that she has more pain I will write script for meds till seen by Pain management 10/06-when DC seen with staff nurse in the room DC tomorrow am- IVIG infusion will not be done till 11 pm Clemencia Martines MD Oct 02, 2017 10:22
[2017-10-02] MEDS: IMMUNE GLOBULIN INJ 35 GM in SYRINGE/BAG 1 EA IV SCH (16:15)
[2017-10-02] MEDS: AMITRIPTYLINE HCL 25 MG TAB PO SCH (21:17)
[2017-10-03] MEDS: HYDROmorphone HCL PF 2 MG/ML VIAL IV PUSH PRN ×3 (02:17→10:00)
[2017-10-03 04:00] VITALS: BP 114/60; PULSE 86; RESP 18; TEMP 97.6; O2SAT 95
[2017-10-03] MEDS: CHLORHEXIDINE GLUCONATE 2 % 1 PACK (2 CLOTHS)(taper/protocol) TOPICAL SCH (04:00)
[2017-10-03] MEDS: HEPARIN SODIUM - SQ 10,000 UNITS/ML VIAL SQ SCH (04:56)
[2017-10-03] MEDS: ALPRAZolam 1 MG TAB PO PRN (05:52)
[2017-10-03] MEDS: oxyCODONE/ACETAMINOPHEN 10 MG/325 MG TAB PO PRN ×2 (05:54→11:00)
[2017-10-03] MEDS: MIDODRINE 5 MG TAB PO SCH (06:47)
--- NOTE | 2017-10-03 07:45 | HHI.PR ---
Subjective Remarks appears comfortable reading a book states had a good night Objective Vitals Vital Signs Date Time Temp Pulse Resp B/P (MAP) Pulse Ox O2 Delivery O2 Flow Rate FiO2 10/03/17 04:00 97.6 86 18 114/60 (78) 95 10/02/17 23:25 97.9 71 20 114/56 (75) 98 10/02/17 20:00 97.7 76 18 156/68 (97) 99 10/02/17 18:50 18 10/02/17 16:15 73 18 110/57 10/02/17 15:50 98.0 73 18 110/59 (76) 96 10/02/17 13:31 16 10/02/17 11:55 98.3 80 18 108/64 (79) 97 10/02/17 08:10 97.4 88 18 123/64 (83) 99 I/O 10/02/17 10/02/17 10/02/17 10/03/17 10/03/17 10/03/17 07:00 15:00 23:00 07:00 15:00 23:00 Intake Total 480 ml 350 ml Balance 480 ml 350 ml Intake Oral 480 ml IV Total 350 ml # Voids 15 4 # Bowel Movements 2 Result Diagram: 09/30/1740 09/30/17 0740 Objective Remarks awake and alert, good sats at room good sats , regular rhythm lungs- no rales regular rhythm abdomen soft, nontender extremities no edema strength- motor 5/5 on all extremities A/P Assessment and Plan 42 years old Acute myasthenia gravis exacerbation Neurology ff- S/P IVIG treatment Continue home Mestinon continue on chronic Prednisone-- per pt for 7 years baseline uses a can or walker Depression/anxiety Continue home medications- xanax/citalopram Hypokalemia-corrected chronic pain history of AVN of the hip per pateint ff by painter railroad car- Dr. Nassar- appt 10/06 continue on her Percocet 10 q 8- prn she states she is planning to decrease to q 12 per patient plan to have hip surgery in the near future- ff by an Ortho- Dr. Baron Hypokalemia- corrected PT consult Heparin Sq for DVT prophylaxis FEN Regular diet Electrolytes: as above our staff called Dr. Pearson- pain management office- set up to ff up 10/06 she got 90 pills of percocet 10 for q 8prescribed 09/06 their plan was to decrease dose admits to using extra on days that she has more pain I will write script for meds till seen by Pain management 10/06-when DC seen with staff nurse in the room DC today Clemencia Martines MD Oct 03, 2017 07:45
[2017-10-03] MEDS ORDERED: OXYC1TAB36 PO (07:51)
--- NOTE | 2017-10-03 08:02 | HHI.FF ---
Face to Face Verification Diagnosis: (1) Right hip pain (2) Myasthenia gravis with exacerbation Physical Therapy Order: Evaluate and Treat, Improve ambulation Home Health Nursing Order: Medical education Signs/symptoms of disease process I have seen patient Brionna Rodríguez on 10/03/17. My clinical findings support the need for the requested home health care services because: Ltd mobility - disease progression Deconditioned w/ increased weakness Need for psychosocial assistance High risk of falls I certify that my clinical findings support that this patient is homebound because: Need for psychosocial assistance Clemencia Martines MD Oct 03, 2017 08:02
--- NOTE | 2017-10-03 08:04 | HHI.DS ---
Discharge Summary Admission Date Sep 29, 2017 at 21:12 Discharge Date: Oct 03, 2017 Admitting Diagnosis myasthenia gravis crisis, chronic right hip pain (1) Myasthenia exacerbation ICD Code: G70.01 - Myasthenia exacerbation Diagnosis: Principal Status: Acute Procedures none Brief History - From Admission 42-year-old female with a past medical history significant for myasthenia gravis and avascular necrosis of the right hip presents with an exacerbation of her myasthenia gravis. The patient reports that yesterday evening she started having bilateral lower extremity weakness and slurred speech with difficulty swallowing. Her neurologist is Dr. Vizcarra. Patient will be admitted for IVIG infusion. CBC/BMP: 09/30/17 0740 09/30/17 0740 Significant Findings Laboratory Tests Test 09/30/17 10:41 Blood Gas HCO3 27 mmol/L (22-26) Blood Gas Base Excess 2.1 mmol/L (-2-2) Arterial Blood Partial Pressure CO2 46 mmHg (38-42) Blood Gas Hemoglobin 9.4 G/DL (12.0-16.0) Imaging none PE at Discharge awake and alert, good sats at room good sats at room air , regular rhythm lungs- no rales regular rhythm abdomen soft, nontender extremities no edema strength- motor 5/5 on all extremities Pt update on day of discharge no fever very interactive, looking forward to going home pain controlled Hospital Course 42 years old Acute myasthenia gravis exacerbation Neurology ff- S/P IVIG treatment Continue home Mestinon continue on chronic Prednisone-- per pt for 7 years baseline uses a can or walker Depression/anxiety Continue home medications- xanax/citalopram Hypokalemia-corrected chronic pain history of AVN of the hip per pateint ff by paint mixer hand- Dr. Nassar- appt 10/06 continue on her Percocet 10 q 8- prn she states she is planning to decrease to q 12 per patient plan to have hip surgery in the near future- ff by an Ortho- Dr. Baron Hypokalemia- corrected PT consult Heparin Sq for DVT prophylaxis FEN Regular diet Electrolytes: as above our staff called Dr. Pearson- pain management office- set up to ff up 10/06 she got 90 pills of percocet 10 for q 8prescribed 09/06 their plan was to decrease dose admits to using extra on days that she has more pain I will write script for meds till seen by Pain management 10/06-when DC seen with staff nurse in the room DC today Pt Condition on Discharge: Stable Discharge Disposition: Disch w/ Home Health Serv Discharge Time: <= 30 minutes Discharge Instructions DIET: Follow Instructions for: As Tolerated, No Restrictions Speech Therapy-Diet Recommends: Regular Activities you can perform: Weight Bearing as Astrid Activities to Avoid: Strenuous Activity Follow up Referrals: Neurology - 6 Weeks with Artie Vizcarra MD Pain Management - 10/06/17 with Cesario New Medications: Oxycodone HCl/Acetaminophen (Oxycodone-Acetaminophen 10-325) 10 Mg-325 Mg Tablet 1 TAB PO Q12HR PRN for PAIN SCALE 4 TO 10, #15 TAB 0 Refills Continued Medications: Amitriptyline (Amitriptyline) 25 Mg Tab 25 MG PO HS, TAB Citalopram (Citalopram) 40 Mg Tab 40 MG PO DAILY for Control Depression, #30 TAB 0 Refills Lactobacillus Acidophilus (Lactinex) 1 Chew 1 TAB CHEW DAILY for Nutritional Supplement, #30 TAB 0 Refills Midodrine (Midodrine) 5 Mg Tab 7.5 MG PO TID@0700,1200,1700 for low blood pressure , #90 TAB Mycophenolate (Cellcept) 500 Mg Tab 500 MG PO DAILY@18, #30 TAB Prednisone (Prednisone) 5 Mg Tab 10 MG PO DAILY, #20 TAB 0 Refills Pyridostigmine (Mestinon) 60 Mg Tab 120 MG PO TIDAC for Manage Myastenia Gravis, #90 TAB 0 Refills Sumatriptan (Imitrex) 50 Mg Tab 50 MG PO as needed PRN for HEADACHE, #10 TAB 0 Refills If a satisfactory response has not been obtained at 2 hours, a second dose may be administered Discontinued Medications: Loperamide HCl (Imodium A-D) 2 Mg Tablet PO DAILY Oxycodone-Acetaminophen (Percocet) 10-325 mg Tab 1 TAB PO Q4H PRN for PAIN, TAB 0 Refills Clemencia Martines MD Oct 03, 2017 08:04
[2017-10-03 08:13] VITALS: BP 102/57; PULSE 86; RESP 18; TEMP 98.4; O2SAT 97
[2017-10-03] MEDS: CITALOPRAM HYDROBROMIDE 40 MG TAB PO SCH (08:20)
[2017-10-03] MEDS: predniSONE 10 MG TAB PO SCH (08:20)
[2017-10-03] MEDS: PYRIDOSTIGMINE BROMIDE 60 MG TAB PO SCH (08:21)
--- NOTE | 2017-10-03 11:14 | HHI.PR ---
Review/Management Diagnosis/Plan: (1) possible mild myasthenia gravis exacerbation Status: Acute Plan: last ivig today resume cellcept hip surgery being considered in couple of months iv rituxamab also being looked into d/c planning today and outpatient f/u (2) possible psychosomatic syndrome Status: Acute (3) Migraine ICD Codes: G43.909 - Migraine Status: Chronic (4) Depression ICD Codes: F32.9 - Depression Status: Chronic Subjective Subjective Comments No acute events reported No headache No chest pain No dyspnea Active Medications Current Medications Medications (Trade) Dose Ordered Sig/Gómez Route Start Time Stop Time Status Last Admin (NS Flush) 2 ml UNSCH PRN IV FLUSH 09/29/17 21:30 10/03/17 10:00 (NS Flush) 2 ml BID IV FLUSH 09/30/17 09:00 10/02/17 21:18 (Tylenol) 650 mg Q4H PRN PO 09/29/17 21:30 10/02/17 15:14 (Zofran Inj) 4 mg Q6H PRN IVP 09/29/17 21:30 (Heparin Inj) 5,000 units Q8H SQ 09/29/17 22:00 (Narcan Inj) 0.4 mg UNSCH PRN IV PUSH 09/29/17 21:30 (Milk Of Magnesia Liq) 30 ml Q12H PRN PO 09/29/17 21:30 (Senokot) 17.2 mg Q12H PRN PO 09/29/17 21:30 (Elavil) 25 mg HS PO 09/30/17 21:00 10/02/17 21:17 (CeleXA) 40 mg DAILY PO 09/30/17 09:00 10/03/17 08:20 (Proamatine) 7.5 mg TID@0700,1200,1700 PO 09/30/17 07:00 10/03/17 06:47 (Mestinon) 120 mg TIDAC PO 09/30/17 08:00 10/03/17 08:21 Miscellaneous Information Patient in critical care unit? Ass... [id number] .XX 09/30/17 03:30 (Chlorhexidine 2% Cloth) 3 pack DAILY@04 TOPICAL 09/30/17 04:00 10/04/17 04:01 10/01/17 04:00 (Chlorhexidine 2% Cloth) 3 pack UNSCH PRN TOPICAL 09/30/17 03:30 10/05/17 03:17 (Deltasone) 10 mg DAILY PO 09/30/17 12:00 10/03/17 08:20 (Xanax) 1 mg Q8H PRN PO 09/30/17 11:45 10/03/17 05:52 (Percocet 10-325 Mg) 1 tab Q8HR PRN PO 09/30/17 14:00 10/03/17 05:54 (Dilaudid Pf Inj) 0.2 mg Q4H PRN IV PUSH 10/01/17 16:00 10/03/17 10:00 (Benadryl) 25 mg Q8H PRN PO 10/02/17 10:15 10/02/17 15:14 Allergies Allergies Coded Allergies penicillin G (Unverified Allergy, Severe, Anaphylaxis, 09/29/17) promethazine (Unverified Adverse Reaction, Severe, NAUSEOUS, 09/29/17) Review of Systems All other ROS: ROS reviewed as documented in chart Exam I&O / VS Vital Signs Date Time Temp Pulse Resp B/P (MAP) Pulse Ox O2 Delivery O2 Flow Rate FiO2 10/03/17 08:13 98.4 86 18 102/57 (72) 97 10/03/17 04:00 97.6 86 18 114/60 (78) 95 10/02/17 23:25 97.9 71 20 114/56 (75) 98 10/02/17 20:00 97.7 76 18 156/68 (97) 99 10/02/17 18:50 18 10/02/17 16:15 73 18 110/57 10/02/17 15:50 98.0 73 18 110/59 (76) 96 10/02/17 13:31 16 10/02/17 11:55 98.3 80 18 108/64 (79) 97 General: Alert and Oriented, No acute distress Eye: PERRL, EOMI, Normal conjuctiva Respiratory: Non-labored respirations Cardiology: Normal rate Neurologic: Alert, Oriented, Normal motor, No focal defects, CN II-XII intact, Normal DTR's Psychiatric: Cooperative, Appropriate mood & affect, Normal judgement Artie Vizcarra MD Oct 03, 2017 11:14
== END 2017-10-03 12:01 | disposition home or self-care (01) | DRG 57 ==
LOC: NEDAMB 15:39 → NEDA 21:12 → HIMW 09-30 03:10 → N05A 10-01 16:45
PROVIDERS: ADMIT Internal Medicine; ATTEND Internal Medicine
DX: G70.01 Myasthenia gravis with (acute) exacerbation (principal); M87.151 Osteonecrosis due to drugs, right femur; E87.6 Hypokalemia; R13.10 Dysphagia, unspecified; F32.9 Major depressive disorder, single episode, unspecified; F41.9 Anxiety disorder, unspecified; T38.0X5A Adverse effect of glucocorticoids and synthetic analogues, initial encounter; Z79.52 Long term (current) use of systemic steroids; Z87.891 Personal history of nicotine dependence; Z88.0 Allergy status to penicillin
CPT/HCPCS: 36600; 80048; 80053; 82805; 85025; 85610; 85730; 87641; 96374; 96375; J1170; J1200; J1459; J1642; J2060; J2405; J3030; J3480; J7040; J7060; J7512; J7517

== ENCOUNTER 2017-10-20 12:12 | Emergency (ER) | payer MEDICARE, MEDICAID ==
[~2017-10-20] VITALS: Ht 165.1 cm; Wt 50.0 kg
[~2017-10-20 12:12] MED LIST changes: -LOPE2TAB18 PO; +OXYC1TAB36 PO; -PERC10TA27 PO
[2017-10-20 12:22] VITALS: BP 101/51; PULSE 64; RESP 16; TEMP 98
[2017-10-20 12:57] VITALS: BP 110/58; PULSE 68; RESP 19; TEMP 98.2; O2SAT 99
[2017-10-20] MEDS ORDERED: NALOXONE HCL 0.4 MG/ML AMP IV PUSH ONE (13:00)
--- NOTE | 2017-10-20 13:04 | PD ---
HPI Chief Complaint: Syncope/Near-Syncope Time Seen by Provider: 13:02 Travel History International Travel<30 days: No Contact w/Intl Traveler<30days: No Traveled to known affect area: No History of Present Illness HPI PATIENT SENT DUE TO INCREASE LEVEL OF SOMNOLENCE WHILE AT A TREATMENT CENTER...PATIENT DOES HAVE OPIATE AND BENZO PRESCRIPTIONS. PATIENT DENIES SI/HI / AT THIS TIME. PATIENT IS PROVIDING INFORMATION...DENIES MERAZ/FEVER/CP/ABD PAIN/ N/V/D/ PFSH Past Medical History Hx Anticoagulant Therapy: No Anemia: Yes Arthritis: No Autoimmune Disease: Yes (MYASTHENA GRAVIS) Blood Disorders: No Anxiety: Yes Depression: Yes Heart Rhythm Problems: No Cancer: No Cardiovascular Problems: No High Cholesterol: No Chemotherapy: No Chest Pain: No Congestive Heart Failure: No Cerebrovascular Accident: No Cystic Fibrosis: No Diabetes: No Diminished Hearing: No Endocrine: No Gastrointestinal Disorders: No Genitourinary: No Headaches: Yes Hepatitis: No Hiatal Hernia: No Hypertension: No Immune Disorder: Yes (MYASTHENIA GRAVIS) Implanted Vascular Access Dvce: Yes (left chest power port) Musculoskeletal: Yes Neurologic: Yes (MYASTHENIA GRAVIS - Jul, 2013) Psychiatric: Yes (DEPRESSION, ANXIETY) Reproductive: No Respiratory: Yes (Intubated 02/24) Immunizations Current: No Migraines: Yes Seizures: No Thyroid Disease: Yes (myasthenia gravis) ?: Not : 2 Para: 2 Dilation and Curettage (D&C): Yes Tubal Ligation: Yes Past Surgical History Abdominal Surgery: No Body Medical Devices: LEFT IMPLANTED PORT Cardiac Surgery: No Ear Surgery: No Endocrine Surgery: Yes ( thymus removed) Eye Surgery: No Genitourinary Surgery: No Gynecologic Surgery: Yes (tubal ligation 2014) Neurologic Surgery: No Oral Surgery: Yes (EXTRACTIONS) Thoracic Surgery: No Tonsillectomy: Yes Other Surgery: Yes (tubal ligation Dec 2014/ POWER PORT TO LEFT CHEST) Social History Alcohol Use: No Tobacco Use: No Substance Use: No Allergies-Medications (Allergen,Severity, Reaction): Coded Allergies: penicillin G (Unverified Allergy, Severe, Anaphylaxis, 10/20/17) promethazine (Unverified Adverse Reaction, Severe, NAUSEOUS, 10/20/17) Reported Meds & Prescriptions Reported Meds & Active Scripts Active Oxycodone-Acetaminophen 10-325 (Oxycodone HCl/Acetaminophen) 10 Mg-325 Mg Tablet 1 Tab PO Q12HR PRN Cellcept (Mycophenolate Mofetil) 500 Mg Tab 500 Mg PO DAILY@18 Mestinon (Pyridostigmine [place]) 60 Mg Tab 120 Mg PO TIDAC Xanax (Alprazolam) 1 Mg Tab 1 Mg PO Q6H Prednisone 5 Mg Tab 10 Mg PO DAILY Lactinex (Lactobacillus Acidophilus) 1 Chew 1 Tab CHEW DAILY Midodrine 5 Mg Tab 7.5 Mg PO TID@0700,1200,1700 Walker with Front Wheels (Device) 1 Mis Mis Ea .ROUTE DIRECTED Bedside Commode (Device) 1 Mis Mis Ea .ROUTE DIRECTED Imitrex (Sumatriptan Succinate) 50 Mg Tab 50 Mg PO NEEDED PRN If a satisfactory response has not been obtained at 2 hours, a second dose may be administered Reported Citalopram (Citalopram Hydrobromide) 40 Mg Tab 40 Mg PO DAILY Review of Systems ROS Limitations: Altered Mental Status Physical Exam Exam Limitations: Clinical Condition, Altered Mental Status Narrative GENERAL: SKIN: Warm and dry. HEAD: Atraumatic. Normocephalic. EYES: Pupils equal and round. No scleral icterus. No injection or drainage. ENT: No nasal bleeding or discharge. Mucous membranes pink and moist. NECK: Trachea midline. No JVD. CARDIOVASCULAR: Regular rate and rhythm. RESPIRATORY: No accessory muscle use. Clear to auscultation. Breath sounds equal bilaterally. GASTROINTESTINAL: Abdomen soft, non-tender, nondistended. Hepatic and splenic margins not palpable. MUSCULOSKELETAL: Extremities without clubbing, cyanosis, or edema. No obvious deformities. NEUROLOGICAL: SOMNOLENT....AROUSES BUT FOR VERY SHORT PERIODS ONLY....GUARDING AIRWAY GCS 12, PINPOINT PUPILS BUT REACTIVE PSYCHIATRIC: Appropriate mood and affect; insight and judgment normal. Data Data Last Documented VS Vital Signs Date Time Temp Pulse Resp B/P (MAP) Pulse Ox O2 Delivery O2 Flow Rate FiO2 10/20/17 12:57 98.2 68 19 110/58 (75) 99 Nasal Cannula 2.00 Orders Orders Complete Blood Count With Diff (10/20/17 12:56) Comprehensive Metabolic Panel (10/20/17 12:56) Prothrombin Time / Inr (Pt) (10/20/17 12:56) Act Partial Throm Time (Ptt) (10/20/17 12:56) Lipase (10/20/17 12:56) Urinalysis - C+S If Indicated (10/20/17 12:56) Thyroid Stimulating Hormone (10/20/17 12:56) Chest, Single Ap (10/20/17 12:56) Iv Access Insert/Monitor (10/20/17 12:56) Ecg Monitoring (10/20/17 12:56) Oximetry (10/20/17 12:56) Ed Urine Pregnancytest Poc (10/20/17 12:56) Drug Screen, Random Urine (10/20/17 12:56) Alcohol (Ethanol) (10/20/17 12:56) Salicylates (Aspirin) (10/20/17 12:56) Tylenol (Acetaminophen) (10/20/17 12:56) Naloxone Inj (Narcan Inj) (10/20/17 13:00) Calcium Gluconate Inj (Calcium Gluconate (10/20/17 14:45) Labs Laboratory Tests Test 10/20/17 13:10 White Blood Count 9.7 TH/MM3 Red Blood Count 3.68 MIL/MM3 Hemoglobin 9.7 GM/DL Hematocrit 29.6 % Mean Corpuscular Volume 80.3 FL Mean Corpuscular Hemoglobin 26.4 PG Mean Corpuscular Hemoglobin Concent 32.8 % Red Cell Distribution Width 17.3 % Platelet Count 412 TH/MM3 Mean Platelet Volume 8.6 FL Neutrophils (%) (Auto) 69.4 % Lymphocytes (%) (Auto) 19.9 % Monocytes (%) (Auto) 7.8 % Eosinophils (%) (Auto) 2.0 % Basophils (%) (Auto) 0.9 % Neutrophils # (Auto) 6.7 TH/MM3 Lymphocytes # (Auto) 1.9 TH/MM3 Monocytes # (Auto) 0.8 TH/MM3 Eosinophils # (Auto) 0.2 TH/MM3 Basophils # (Auto) 0.1 TH/MM3 CBC Comment DIFF FINAL Differential Comment Prothrombin Time 10.2 SEC Prothromb Time International Ratio 1.0 RATIO Activated Partial Thromboplast Time 43.4 SEC Urine Color YELLOW Urine Turbidity CLEAR Urine pH 6.0 Urine Specific [place] 1.005 Urine Protein NEG mg/dL Urine Glucose (UA) NEG mg/dL Urine Ketones NEG mg/dL Urine Occult Blood NEG Urine Nitrite NEG Urine Bilirubin NEG Urine Urobilinogen LESS THAN 2.0 MG/DL Urine Leukocyte Esterase NEG Urine RBC 1 /hpf Urine WBC LESS THAN 1 /hpf Urine Squamous Epithelial Cells 1 /hpf Microscopic Urinalysis Comment CATH-CULT NOT IND Blood Urea Nitrogen 4 MG/DL Creatinine 0.33 MG/DL Random Glucose 61 MG/DL Total Protein 5.6 GM/DL Albumin 2.4 GM/DL Calcium Level 6.6 MG/DL Alkaline Phosphatase 46 U/L Aspartate Amino Transf (AST/SGOT) 12 U/L Alanine Aminotransferase (ALT/SGPT) 11 U/L Total Bilirubin 0.2 MG/DL Sodium Level 144 MEQ/L Potassium Level 3.1 MEQ/L Chloride Level 111 MEQ/L Carbon Dioxide Level 25.4 MEQ/L Anion Gap 8 MEQ/L Estimat Glomerular Filtration Rate 220 ML/MIN Protein Corrected Calcium 7.3 MG/DL Lipase 334 U/L Thyroid Stimulating Hormone 3rd Gen 1.660 uIU/ML Salicylates Level LESS THAN 1.7 MG/DL Urine Opiates Screen NEG Acetaminophen Level 10.4 MCG/ML Urine Barbiturates Screen NEG Urine Amphetamines Screen NEG Urine Benzodiazepines Screen POS Urine Cocaine Screen POS Urine Cannabinoids Screen NEG Ethyl Alcohol Level LESS THAN 3 MG/DL MDM Medical Decision Making Medical Screen Exam Complete: Yes Emergency Medical Condition: Yes Medical Record Reviewed: Yes Differential Diagnosis OPIATE OVERDOSE ACCIDENTAL V RECREATIONAL USE V UTI V PNA V ELECTROLYTE ABNL Diagnosis Primary Impression: ACCIDENTAL OPIATE OVERDOSE S/P NARCAN Additional Impressions: Cocaine use HYPOCALCEMIA S/P REPLACEMENT Patient Instructions: Cocaine Abuse (ED), General Instructions, Opioid Overdose (ED) Disposition: 01 DISCHARGE HOME Condition: Stable Kirk Armando MD Oct 20, 2017 13:04
[2017-10-20 13:54] LABS: AUTOMATED NEUTROPHIL # 6.7 TH/MM3 (1.8-7.7); BASOPHIL # 0.1 TH/MM3 (0-0.2); BASOPHIL % 0.9 % (0.0-2.0); EOSINOPHIL # 0.2 TH/MM3 (0-0.4); HEMATOCRIT 29.6 % (35.0-46.0); HEMOGLOBIN 9.7 GM/DL (11.6-15.3); LYMPH % 19.9 % (9.0-44.0); LYMPHOCYTE # 1.9 TH/MM3 (1.0-4.8); MEAN CELL VOLUME 80.3 FL (80.0-100.0); MEAN CORPUSCULAR HEMOGLOBIN 26.4 PG (27.0-34.0); MEAN CORPUSCULAR HGB CONC 32.8 % (32.0-36.0); MEAN PLATELET VOLUME 8.6 FL (7.0-11.0); MONO % 7.8 % (0.0-8.0); MONOCYTE # 0.8 TH/MM3 (0-0.9); NEUT % 69.4 % (16.0-70.0); PLATELET COUNT 412 TH/MM3 (150-450); RED BLOOD COUNT 3.68 MIL/MM3 (4.00-5.30); RED CELL DISTRIBUTION WIDTH 17.3 % (11.6-17.2); WHITE BLOOD COUNT 9.7 TH/MM3 (4.0-11.0)
[2017-10-20 14:01] LABS: BILIRUBIN, URINE NEG (NEG); BLOOD, URINE NEG (NEG); GLUCOSE,URINE NEG (NEG); KETONE, URINE NEG (NEG); NITRITE,URINE NEG (NEG); SQUAMOUS EPITHELIAL CELL URINE 1 /hpf (0-5); URINE COLOR YELLOW (YELLW/STRAW); URINE LEUKOCYTE ESTERASE NEG (NEG)
[2017-10-20 14:06] LABS: PROTHROMBIN TIME - PATIENT 10.2 SEC (9.8-11.6)
[2017-10-20 14:35] LABS: ACETAMINOPHEN 10.4 MCG/ML (10.0-30.0); ALBUMIN 2.4 GM/DL (3.4-5.0); ALKALINE PHOSPHATASE 46 U/L (45-117); ALT (GPT) 11 U/L (10-53); AST (GOT) 12 U/L (15-37); BICARBONATE 25.4 MEQ/L (21.0-32.0); BLOOD UREA NITROGEN 4 MG/DL (7-18); CALCIUM 6.6 MG/DL (8.5-10.1); CHLORIDE 111 MEQ/L (98-107); CREATININE 0.33 MG/DL (0.50-1.00); GLOMERULAR FILTRATION RATE 220 ML/MIN (>89); GLUCOSE,RANDOM 61 MG/DL (74-106); LIPASE 334 U/L (73-393); SODIUM (NA) 144 MEQ/L (136-145); TOTAL BILIRUBIN ADULT 0.2 MG/DL (0.2-1.0); TOTAL PROTEIN 5.6 GM/DL (6.4-8.2)
--- NOTE | 2017-10-20 14:38 | RADRPT ---
EXAM DATE/TIME: 10/20/2017 13:15 [facility] COMPARISON: CHEST SINGLE AP, June 05, 2017, 9:47. INDICATIONS : Syncope. MEDICAL HISTORY : myasthenia gravis, migraines, anemia, c-diff SURGICAL HISTORY : Hysterectomy. tubal ligation, D&C, Thymus removed. Left chest port ENCOUNTER: Initial ACUITY: 1 day PAIN SCORE: Non-responsive. LOCATION: Bilateral chest FINDINGS: Left subclavian [id number] in stable position. No new focal pleural or parenchymal opacities. Card iomediastinal contours are within normal limits. Bony thorax is intact. CONCLUSION: 1. No acute abnormality or significant interval change. Robbie Cho MD on October 20, 2017 at 14:34 Board Certified Radiologist. This report was verified electronically.
[2017-10-20 14:39] LABS: CALCIUM-PROTEIN CORRECTED 7.3 MG/DL (8.5-10.1)
[2017-10-20] MEDS ORDERED: CALCIUM GLUCONATE INJ 2 GM in SODIUM CHLORIDE 0.9% INJ 100 ML IV ONE (14:45)
[2017-10-20 16:13] VITALS: BP 100/56; PULSE 80; RESP 16; O2SAT 98
[2017-11-01] MEDS ORDERED: MYCO500 PO (09:05)
[2017-11-01] MEDS ORDERED: MEST60TA PO (09:08)
[2017-11-01] MEDS ORDERED: MIDO5TAB PO (09:34)
== END 2017-10-20 16:27 | disposition home or self-care (01) ==
LOC: NEPE 12:12
DX: T40.601A Poisoning by unspecified narcotics, accidental (unintentional), initial encounter (principal); F14.90 Cocaine use, unspecified, uncomplicated; E83.51 Hypocalcemia; G70.00 Myasthenia gravis without (acute) exacerbation
CPT/HCPCS: 71045; 80053; 80307; 81001; 83690; 84443; 84703; 85025; 85610; 85730; 96361; 96374; 99284; J0610; J2310

== ENCOUNTER 2017-10-27 08:11 | Inpatient (IN) | payer MEDICARE, MEDICAID ==
[2017-10-27] VITALS (9 sets, daily range): BP systolic 125–135; BP diastolic 63–97; PULSE 68–89; RESP 16–32; TEMP 97.6–98; O2SAT 96–100
[~2017-10-27 08:11] MED LIST changes: -AMIT25TA9 PO
[2017-10-27] MEDS ORDERED: methylPREDNISolone SOD SUCC 125 MG/2 ML VIAL IV PUSH ONE (08:45)
--- NOTE | 2017-10-27 08:54 | PD ---
HPI Chief Complaint: Respiratory Symptoms Time Seen by Provider: 08:34 Travel History International Travel<30 days: No Contact w/Intl Traveler<30days: No Traveled to known affect area: No History of Present Illness HPI patient states that she has a history of myasthenia gravis, taking steroids regularly. apparently has been getting worse with her breathing over last 4 hrs 911 called, ems found pt with a 84 pulse ox, placed on cpap and transported to ed... now pulse ox 100 on cpap....as soon as pulse ox improved, patient started asking for pain control for her hip pain. patient states that she is a patient of dr julissa GAUTAM Past Medical History Hx Anticoagulant Therapy: No Anemia: Yes Arthritis: No Autoimmune Disease: Yes (MYASTHENIA GRAVIS) Blood Disorders: No Anxiety: Yes Depression: Yes Heart Rhythm Problems: No Cancer: No Cardiovascular Problems: No High Cholesterol: No Chemotherapy: No Chest Pain: No Congestive Heart Failure: No Cerebrovascular Accident: No Cystic Fibrosis: No Diabetes: No Diminished Hearing: No Endocrine: No Gastrointestinal Disorders: No Genitourinary: No Headaches: Yes Hepatitis: No Hiatal Hernia: No Hypertension: No Immune Disorder: Yes (MYASTHENIA GRAVIS) Implanted Vascular Access Dvce: Yes (left chest power port) Musculoskeletal: Yes Neurologic: Yes (MYASTHENIA GRAVIS - Jul, 2013) Psychiatric: Yes (DEPRESSION, ANXIETY) Reproductive: No Respiratory: Yes (Intubated 02/24 coded) Immunizations Current: No Migraines: Yes Seizures: No Thyroid Disease: Yes (myasthenia gravis) Influenza Vaccination: No ?: Not : 2 Para: 2 Dilation and Curettage (D&C): Yes Tubal Ligation: Yes Past Surgical History Abdominal Surgery: No Body Medical Devices: LEFT IMPLANTED PORT Cardiac Surgery: No Ear Surgery: No Endocrine Surgery: Yes ( thymus removed) Eye Surgery: No Genitourinary Surgery: No Gynecologic Surgery: Yes (tubal ligation 2014) Neurologic Surgery: No Oral Surgery: Yes (EXTRACTIONS) Thoracic Surgery: No Tonsillectomy: Yes Other Surgery: Yes (tubal ligation Dec 2014/ POWER PORT TO LEFT CHEST, thymus gland) Social History Alcohol Use: No Tobacco Use: No Substance Use: No Allergies-Medications (Allergen,Severity, Reaction): Coded Allergies: penicillin G (Unverified Allergy, Severe, Anaphylaxis, 10/27/17) promethazine (Unverified Adverse Reaction, Severe, NAUSEOUS, 10/27/17) Reported Meds & Prescriptions Reported Meds & Active Scripts Active Oxycodone-Acetaminophen 10-325 (Oxycodone HCl/Acetaminophen) 10 Mg-325 Mg Tablet 1 Tab PO Q12HR PRN Cellcept (Mycophenolate Mofetil) 500 Mg Tab 500 Mg PO DAILY@18 Mestinon (Pyridostigmine Hurricane) 60 Mg Tab 120 Mg PO TIDAC Xanax (Alprazolam) 1 Mg Tab 1 Mg PO Q6H Prednisone 5 Mg Tab 10 Mg PO DAILY Lactinex (Lactobacillus Acidophilus) 1 Chew 1 Tab CHEW DAILY Midodrine 5 Mg Tab 7.5 Mg PO TID@0700,1200,1700 Walker with Front Wheels (Device) 1 Mis Mis Ea .ROUTE DIRECTED Bedside Commode (Device) 1 Mis Mis Ea .ROUTE DIRECTED Imitrex (Sumatriptan Succinate) 50 Mg Tab 50 Mg PO NEEDED PRN If a satisfactory response has not been obtained at 2 hours, a second dose may be administered Reported Citalopram (Citalopram Hydrobromide) 40 Mg Tab 40 Mg PO DAILY Review of Systems Except as stated in HPI: all other systems reviewed are Neg General / Constitutional: No: Fever Eyes: No: Visual changes HENT: No: Headaches Cardiovascular: No: Chest Pain or Discomfort Respiratory: Positive: Shortness of Breath Gastrointestinal: No: Abdominal Pain Genitourinary: No: Dysuria Musculoskeletal: No: Pain Skin: No Rash Neurologic: No: Weakness Psychiatric: No: Depression Endocrine: No: Polydipsia Hematologic/Lymphatic: No: Easy Bruising Physical Exam Narrative GENERAL: SKIN: Warm and dry. HEAD: Atraumatic. Normocephalic. EYES: Pupils equal and round. No scleral icterus. No injection or drainage. ENT: No nasal bleeding or discharge. Mucous membranes pink and moist. NECK: Trachea midline. No JVD. CARDIOVASCULAR: Regular rate and rhythm. RESPIRATORY: No accessory muscle use. Clear to auscultation. shallow tidal volume bilaterally placed on bipap upon arrival GASTROINTESTINAL: Abdomen soft, non-tender, nondistended. MUSCULOSKELETAL: Extremities without clubbing, cyanosis, or edema. No obvious deformities. NEUROLOGICAL: Awake and alert. No obvious cranial nerve deficits. Motor grossly within normal limits. Five out of 5 muscle strength in the arms and legs. Normal speech. PSYCHIATRIC: Appropriate mood and affect; insight and judgment normal. Data Data Last Documented VS Vital Signs Date Time Temp Pulse Resp B/P (MAP) Pulse Ox O2 Delivery O2 Flow Rate FiO2 10/27/17 08:38 100 50 10/27/17 08:26 85 16 125/86 (99) CPAP Orders Orders Electrocardiogram (10/27/17 08:39) Complete Blood Count With Diff (10/27/17 08:39) Comprehensive Metabolic Panel (10/27/17 08:39) Troponin I (10/27/17 08:39) B-Type Natriuretic Peptide (10/27/17 08:39) Prothrombin Time / Inr (Pt) (10/27/17 08:39) Act Partial Throm Time (Ptt) (10/27/17 08:39) Lipase (10/27/17 08:39) Urinalysis - C+S If Indicated (10/27/17 08:39) Cath For Specimen (10/27/17 08:39) Magnesium (Mg) (10/27/17 08:39) Thyroid Stimulating Hormone (10/27/17 08:39) Influenzae A/B Antigen (10/27/17 08:39) Chest, Single Ap (10/27/17 08:39) Iv Access Insert/Monitor (10/27/17 08:39) Ecg Monitoring (10/27/17 08:39) Oximetry (10/27/17 08:39) Ed Urine Pregnancytest Poc (10/27/17 08:39) Methylprednisolone So Succ Inj (Solumedr (10/27/17 08:45) Hydrocortisone Inj (Solucortef Inj) (10/27/17 09:00) MDM Medical Decision Making Medical Screen Exam Complete: Yes Emergency Medical Condition: Yes Medical Record Reviewed: Yes Differential Diagnosis myasthenia gravis exac v pna v mi v nonstemi v ptx Critical Care Narrative CRITICAL CARE NOTE: With evaluation of the patient, labs, EKG, receipt of radiologic studies, administration of medications, reevaluation the patient and discussion of the patient with the admitting physicians, the total critical care time was [45] minutes. Time to perform other separately billable procedures was not included in the critical care time. Physician Communication Physician Communication called dr costa to assess for IV IG therapy or other modalities as reccomended for MG exac Diagnosis Primary Impression: Myasthenia gravis with exacerbation Admitting Information Admitting Physician Requests: Observation Kirk Armando MD Oct 27, 2017 08:54
[2017-10-27] MEDS ORDERED: HYDROCORTISONE SOD SUCCINATE 100 MG VIAL IV PUSH ONE (09:00)
[2017-10-27] MEDS ORDERED: PRED5TAB PO (09:29)
[2017-10-27 09:35] LABS: AUTOMATED NEUTROPHIL # 4.4 TH/MM3 (1.8-7.7); BASOPHIL % 0.7 % (0.0-2.0); EOSINOPHIL % 0.7 % (0.0-4.0); HEMATOCRIT 34.5 % (35.0-46.0); HEMOGLOBIN 11.8 GM/DL (11.6-15.3); LYMPH % 20.9 % (9.0-44.0); LYMPHOCYTE # 1.3 TH/MM3 (1.0-4.8); MEAN CELL VOLUME 80.5 FL (80.0-100.0); MEAN CORPUSCULAR HEMOGLOBIN 27.4 PG (27.0-34.0); MEAN CORPUSCULAR HGB CONC 34.1 % (32.0-36.0); MEAN PLATELET VOLUME 8.8 FL (7.0-11.0); MONO % 6.8 % (0.0-8.0); MONOCYTE # 0.4 TH/MM3 (0-0.9); NEUT % 70.9 % (16.0-70.0); PLATELET COUNT 391 TH/MM3 (150-450); RED BLOOD COUNT 4.29 MIL/MM3 (4.00-5.30); RED CELL DISTRIBUTION WIDTH 17.6 % (11.6-17.2); WHITE BLOOD COUNT 6.3 TH/MM3 (4.0-11.0)
[2017-10-27 09:41] LABS: INTERNATIONAL NORMALIZED RATIO 1.1 RATIO; PROTHROMBIN TIME - PATIENT 11.2 SEC (9.8-11.6)
[2017-10-27 09:43] LABS: BILIRUBIN, URINE NEG (NEG); BLOOD, URINE MOD (NEG); GLUCOSE,URINE NEG (NEG); KETONE, URINE 10 mg/dL (NEG); MUCUS URINE MOD /lpf (OCC); NITRITE,URINE NEG (NEG); SQUAMOUS EPITHELIAL CELL URINE <1 /hpf (0-5); URINE COLOR YELLOW (YELLW/STRAW); URINE LEUKOCYTE ESTERASE NEG (NEG)
[2017-10-27] MEDS ORDERED: IMMUNE GLOBULIN IV ONE (09:45)
--- NOTE | 2017-10-27 09:50 | RADRPT ---
EXAM DATE/TIME: 10/27/2017 09:11 [place] COMPARISON: CHEST SINGLE AP, October 20, 2017, 13:15. INDICATIONS : Short of breath. MEDICAL HISTORY : myasthenia gravis, migraines, anemia, depression, C-diff SURGICAL HISTORY : thymus removed, left chest port, blood transfusions ENCOUNTER: Initial ACUITY: 1 day PAIN SCORE: Non-responsive. LOCATION: Bilateral chest FINDINGS: A single view of the chest demonstrates the lungs to be symmetrically aerated without evidence of mas s, infiltrate or effusion. The cardiomediastinal contours are unremarkable. Osseous structures are intact. CONCLUSION: Normal examination. Left subclavian Jeulml-[id number]-Ogci in excellent position Ashok Beach MD on October 27, 2017 at 9:47 Board Certified Radiologist. This report was verified electronically.
[2017-10-27 09:56] LABS: ALBUMIN 3.7 GM/DL (3.4-5.0); ALT (GPT) 11 U/L (10-53); AST (GOT) 9 U/L (15-37); BICARBONATE 28.1 MEQ/L (21.0-32.0); BLOOD UREA NITROGEN 4 MG/DL (7-18); CALCIUM 9.1 MG/DL (8.5-10.1); CHLORIDE 111 MEQ/L (98-107); CREATININE 0.69 MG/DL (0.50-1.00); GLOMERULAR FILTRATION RATE 94 ML/MIN (>89); GLUCOSE,RANDOM 86 MG/DL (74-106); LIPASE 138 U/L (73-393); MAGNESIUM 1.9 MG/DL (1.5-2.5); SODIUM (NA) 140 MEQ/L (136-145)
[2017-10-27 10:00] LABS: ALKALINE PHOSPHATASE 56 U/L (45-117); TOTAL BILIRUBIN ADULT 0.4 MG/DL (0.2-1.0); TROPONIN I LESS THAN 0.02 NG/ML (0.02-0.05)
[2017-10-27] MEDS ORDERED: diphenhydrAMINE HCL 25 MG CAP PO SCH (10:45)
[2017-10-27] MEDS ORDERED: ACETAMINOPHEN 325 MG TAB PO SCH (10:45)
[2017-10-27] MEDS: SODIUM CHLORID 0.9% 500 ML INJ 500 ML IV SCH (10:49)
[2017-10-27] MEDS ORDERED: IMMUNE GLOBULIN INJ 20 GM in SYRINGE/BAG 1 EA IV ONE (11:00)
--- NOTE | 2017-10-27 11:21 | EKG ---
Date Performed: 10/27/2017 Time Performed: 08:37:57 PTAGE: 42 years EKG: Sinus rhythm RIGHT ATRIAL ENLARGEMENT LEFT ATRIAL ENLARGEMENT POSSIBLE RIGHT VENTRICULAR HYPERTROPHY ABNORMAL ECG NO PREVIOUS TRACING DOCTOR: Ashok Milligan Interpretating Date/Time 10/27/2017 11:20:20
[2017-10-27] MEDS ORDERED: DEXTROSE 5% IN WATE 500 ML INJ 500 ML OTHER SCH (11:34)
[2017-10-27] MEDS ORDERED: EPINEPHrine HCL (1:1000) 1 MG/ML VIAL OTHER PRN (11:45)
[2017-10-27] MEDS ORDERED: diphenhydrAMINE HCL 50 MG/ML VIAL IV PUSH PRN (11:45)
--- NOTE | 2017-10-27 12:11 | HHI.HP ---
[facility] Service [facility] Primary Care Physician Non-Staff Admission Diagnosis MYASTHENIA GRAVIS EXACERBATION Diagnoses: (1) Myasthenia gravis with exacerbation Chief Complaint: Hip pain and generalized weakness Travel History International Travel<30 Days: No Contact w/Intl Traveler <30 Da: No Traveled to Known Affected Are: No History of Present Illness 42-year-old female with a past medical history significant for myasthenia gravis and avascular necrosis of the right hip , who has been admitted numerous times to the hospital presents with an exacerbation of her myasthenia gravis as well as shortness of breath with hypoxia for which patient initially was placed on CPAP by EMS and then BiPAP in the ED. Patient reported worsening shortness of breath without any chest pain. She also complains of headaches. Patient has been requesting more narcotics for right hip pain. She denies any GI bleed. She states, she would have right hip surgery next month. Review of Systems Except as stated in HPI: all other systems reviewed are Neg Past Family Social History Past Medical History Myasthenia gravis Avascular necrosis of the right hip Past Surgical History Thymus removed Bilateral tubal ligation Left chest port placement Tonsillectomy Reported Medications Oxycodone-Acetaminophen 10-325 (Oxycodone HCl/Acetaminophen) 10 Mg-325 Mg Tablet 1 Tab PO Q12HR PRN Cellcept (Mycophenolate Mofetil) 500 Mg Tab 500 Mg PO DAILY@18 Mestinon (Pyridostigmine Kamrar) 60 Mg Tab 120 Mg PO TIDAC Xanax (Alprazolam) 1 Mg Tab 1 Mg PO Q6H Prednisone 5 Mg Tab 10 Mg PO DAILY Lactinex (Lactobacillus Acidophilus) 1 Chew 1 Tab CHEW DAILY Midodrine 5 Mg Tab 7.5 Mg PO TID@0700,1200,1700 Walker with Front Wheels (Device) 1 Mis Mis Ea .ROUTE DIRECTED Bedside Commode (Device) 1 Mis Mis Ea .ROUTE DIRECTED Imitrex (Sumatriptan Succinate) 50 Mg Tab 50 Mg PO NEEDED PRN If a satisfactory response has not been obtained at 2 hours, a second dose may be administered Reported Citalopram (Citalopram Hydrobromide) 40 Mg Tab 40 Mg PO DAILY Allergies: Coded Allergies: penicillin G (Unverified Allergy, Severe, Anaphylaxis, 10/27/17) promethazine (Unverified Adverse Reaction, Severe, NAUSEOUS, 10/27/17) Family History Father with diabetes mellitus Social History Quit smoking 2 months ago. Smoked half a pack per day 20 years. Denies alcohol, illicit drugs. Physical Exam Vital Signs Vital Signs Date Time Temp Pulse Resp B/P (MAP) Pulse Ox O2 Delivery O2 Flow Rate FiO2 10/27/17 12:04 88 16 135/91 10/27/17 09:22 97.9 89 16 128/97 (107) 100 BiPAP 10/27/17 08:38 100 50 10/27/17 08:26 85 16 125/86 (99) 100 CPAP 10/27/17 08:18 87 32 100 Physical Exam GENERAL: This is a well-nourished, well-developed patient, in no apparent distress. SKIN: No rashes, ecchymoses or lesions. Cool and dry. HEAD: Atraumatic. Normocephalic. No temporal or scalp tenderness. EYES: Pupils equal round and reactive. Extraocular motions intact. No scleral icterus. No injection or drainage. ENT: Nose without bleeding, purulent drainage or septal hematoma. Throat without erythema, tonsillar hypertrophy or exudate. Uvula midline. Airway patent. NECK: Trachea midline. No JVD or lymphadenopathy. Supple, nontender, no meningeal signs. CARDIOVASCULAR: Regular rate and rhythm without murmurs, gallops, or rubs. RESPIRATORY: Clear to auscultation. Breath sounds equal bilaterally. No wheezes , rales, or rhonchi. GASTROINTESTINAL: Abdomen soft, non-tender, nondistended. No hepato-splenomegaly , or palpable masses. No guarding. MUSCULOSKELETAL: Extremities without clubbing, cyanosis, or edema. No joint tenderness, effusion, or edema noted. No calf tenderness. Negative Homans sign bilaterally. NEUROLOGICAL: Awake and alert. Cranial nerves II through XII intact. Motor and sensory grossly within normal limits. Five out of 5 muscle strength in all muscle groups. Normal speech. Laboratory Laboratory Tests Test 10/27/17 08:35 10/27/17 08:50 White Blood Count 6.3 Red Blood Count 4.29 Hemoglobin 11.8 Hematocrit 34.5 Mean Corpuscular Volume 80.5 Mean Corpuscular Hemoglobin 27.4 Mean Corpuscular Hemoglobin Concent 34.1 Red Cell Distribution Width 17.6 Platelet Count 391 Mean Platelet Volume 8.8 Neutrophils (%) (Auto) 70.9 Lymphocytes (%) (Auto) 20.9 Monocytes (%) (Auto) 6.8 Eosinophils (%) (Auto) 0.7 Basophils (%) (Auto) 0.7 Neutrophils # (Auto) 4.4 Lymphocytes # (Auto) 1.3 Monocytes # (Auto) 0.4 Eosinophils # (Auto) 0.0 Basophils # (Auto) 0.0 CBC Comment DIFF FINAL Differential Comment Prothrombin Time 11.2 Prothromb Time International Ratio 1.1 Activated Partial Thromboplast Time 28.0 Blood Urea Nitrogen 4 Creatinine 0.69 Random Glucose 86 Total Protein 8.0 Albumin 3.7 Calcium Level 9.1 Magnesium Level 1.9 Alkaline Phosphatase 56 Aspartate Amino Transf (AST/SGOT) 9 Alanine Aminotransferase (ALT/SGPT) 11 Total Bilirubin 0.4 Sodium Level 140 Potassium Level 3.2 Chloride Level 111 Carbon Dioxide Level 28.1 Anion Gap 1 Estimat Glomerular Filtration Rate 94 Troponin I LESS THAN 0.02 B-Type Natriuretic Peptide 16 Lipase 138 Thyroid Stimulating Hormone 3rd Gen 1.090 Urine Color YELLOW Urine Turbidity CLEAR Urine pH 6.0 Urine Specific Duson 1.021 Urine Protein 30 Urine Glucose (UA) NEG Urine Ketones 10 Urine Occult Blood MOD Urine Nitrite NEG Urine Bilirubin NEG Urine Urobilinogen 2.0 Urine Leukocyte Esterase NEG Urine RBC 9 Urine WBC LESS THAN 1 Urine Squamous Epithelial Cells <1 Urine Mucus MOD Microscopic Urinalysis Comment CULT NOT INDICATED Date/Time Source Procedure Growth Status 10/27/17 08:50 Nasal Washing Influenza Types A,B Antigen (MANUELITO) - Final NEGATIVE FOR FLU A AND B ANTIGEN.... Complete Result Diagram: 10/27/17 0835 10/27/17 0835 Septic Shock Reassessment Septic shock perfusion: reassessment completed Caprini VTE Risk Assessment Caprini VTE Risk Assessment: No/Low Risk (score <= 1) Caprini Risk Assessment Model Point Value = 1 Point Value = 2 Point Value = 3 Point Value = 5 Age 41-60 Minor surgery BMI > 25 kg/m2 Swollen legs Varicose veins or History of unexplained or recurrent spontaneous Oral contraceptives or hormone replacement Sepsis (< 1 month) Serious lung disease, including pneumonia (< 1 month) Abnormal pulmonary function Acute myocardial infarction Congestive heart failure (< 1 month) History of inflammatory bowel disease Medical patient at bed rest Age 61-74 Arthroscopic surgery Major open surgery (> 45 min) Laparoscopic surgery (> 45 min) Malignancy Confined to bed (> 72 hours) Immobilizing plaster cast Central venous access Age >= 75 History of VTE Family history of VTE Factor V Leiden Prothrombin [id number] Lupus anticoagulant Anticardiolipin antibodies Elevated serum homocysteine Heparin-induced thrombocytopenia Other congenital or acquired thrombophilia Stroke (< 1 month) Elective arthroplasty Hip, pelvis, or leg fracture Acute spinal cord injury (< 1 month) Prophylaxis Regimen Total Risk Factor Score Risk Level Prophylaxis Regimen 0-1 Low Early ambulation 2 Moderate Order ONE of the following: *Sequential Compression Device (SCD) *Heparin 5000 units SQ BID 3-4 Higher Order ONE of the following medications: *Heparin 5000 units SQ TID *Enoxaparin/Lovenox 40 mg SQ daily (WT < 150 kg, CrCl > 30 mL/min) *Enoxaparin/Lovenox 30 mg SQ daily (WT < 150 kg, CrCl > 10-29 mL/min) *Enoxaparin/Lovenox 30 mg SQ BID (WT < 150 kg, CrCl > 30 mL/min) AND/OR *Sequential Compression Device (SCD) 5 or more Highest Order ONE of the following medications: *Heparin 5000 units SQ TID (Preferred with Epidurals) *Enoxaparin/Lovenox 40 mg SQ daily (WT < 150 kg, CrCl > 30 mL/min) *Enoxaparin/Lovenox 30 mg SQ daily (WT < 150 kg, CrCl > 10-29 mL/min) *Enoxaparin/Lovenox 30 mg SQ BID (WT < 150 kg, CrCl > 30 mL/min) AND *Sequential Compression Device (SCD) Assessment and Plan Problem List: (1) Myasthenia gravis with exacerbation ICD Code: G70.01 - Myasthenia gravis with exacerbation Status: Acute (2) Right hip pain ICD Code: M25.551 - Pain in right hip Status: Acute (3) Chronic pain ICD Code: G89.29 - Chronic pain Status: Chronic (4) Migraine ICD Code: G43.909 - Migraine Status: Chronic (5) Hypokalemia ICD Code: E87.6 - Hypokalemia Status: Acute Assessment and Plan 42 years old Acute myasthenia gravis exacerbation Consult neurology Currently receiving IVIG x 1 in ED pending further recommendation from neurology Resume Mestinon Resume chronic Prednisone PT consult to treat and eval Depression/anxiety Resume home medications- Xanax/citalopram Respiratory distress with hypoxia Now resolved, wean off oxygen and BiPAP Hypokalemia Give potassium 60 mEq 1 now chronic pain History of AVN of the hip Resume Percocet 10 q 6 Per patient plan to have hip surgery next month PT consult to treat and eval Heparin Sq for DVT prophylaxis Code Status Full code Discussed Condition With Patient, ED physician Physician Certification 2 Midnight Certification Type: Admission for Inpatient Services Order for Inpatient Services The services are ordered in accordance with Medicare regulations or non- Medicare payer requirements, as applicable. In the case of services not specified as inpatient-only, they are appropriately provided as inpatient services in accordance with the 2-midnight benchmark. Estimated LOS (days): 2 days is the estimated time the patient will need to remain in the hospital, assuming treatment plan goals are met and no additional complications. Post-Hospital Plan: Not yet determined Reginald Aleman MD Oct 27, 2017 12:11
[2017-10-27] MEDS ORDERED: ACETAMINOPHEN 325 MG TAB PO PRN ×2 (12:15)
[2017-10-27] MEDS ORDERED: MAGNESIUM HYDROXIDE SUSP 30 ML CUP PO PRN (12:15)
[2017-10-27] MEDS ORDERED: SENNOSIDES 8.6 MG TAB PO PRN (12:15)
[2017-10-27] MEDS ORDERED: RESP: ALBUTEROL 2.5 MG/IPRATROPIUM 0.5 MG NEB (PRN) NEB (12:15)
[2017-10-27] MEDS ORDERED: BISACODYL 10 MG SUPP RECTAL PRN (12:15)
[2017-10-27] MEDS ORDERED: SODIUM CHLORIDE 0.9% FLUSH 10 ML FLUSH IV FLUSH PRN (12:15)
[2017-10-27] MEDS ORDERED: LACTULOSE SYRUP 20 GM/30 ML CUP PO PRN (12:15)
[2017-10-27] MEDS ORDERED: NALOXONE HCL 0.4 MG/ML AMP IV PUSH PRN (12:15)
[2017-10-27] MEDS ORDERED: POTASSIUM CHLORIDE 10 MEQ CONTROLLED RELEASE TAB PO ONE (13:15)
[2017-10-27] MEDS: ALPRAZolam 1 MG TAB PO PRN ×2 (14:34→21:20)
--- NOTE | 2017-10-27 14:48 | MB ---
cc: TAMMY NICHOLS M.D. DATE OF CONSULTATION 10/27/2017 DATE OF 1975 REASON FOR CONSULTATION Myasthenia gravis exacerbation. HISTORY OF PRESENT ILLNESS This is a 42-year-old lady with a well-known history of myasthenia gravis, history of avascular necrosis right hip pending surgery next month, admitted here for shortness of breath. She was placed on CPAP and now on BiPAP. She is having trouble with swallowing and severe headache, asking for her Imitrex. PAST MEDICAL HISTORY 1. Myasthenia gravis. 2. Avascular necrosis of the right hip. PAST SURGICAL HISTORY 1. Thymus removed. 2. Tubal ligation. 3. Left chest port placement. 4. Tonsillectomy. MEDICATIONS Home medicines are: 1. Oxycodone. 2. Tylenol. 3. CellCept 500 mg daily. 4. Mestinon 120 mg three times a day. 5. Xanax 1 mg q.6h. 6. Prednisone 10 mg daily. 7. Lactinex. 8. Midodrine 7.5 mg three times a day. 9. Imitrex as needed. 10.Citalopram. ALLERGIES 1. PENICILLIN. 2. PROMETHAZINE. FAMILY HISTORY Diabetes in the father. SOCIAL HISTORY She states she quit smoking 2 months ago. No drugs or alcohol. PHYSICAL EXAMINATION VITAL SIGNS: Temperature 97.9, pulse 81. Currently she is satting at 100% on 2 liters. Respiratory rate 16. NEUROLOGIC: She is awake and alert, very nasal. Pupils are reactive. Diplopia she states with the right eye. Extraocular muscles are intact however. Tongue is midline. No significant neck weakness. Motor-willson she does not exhibit severe weakness. She has some upper extremity weakness, lower extremity weakness but mild. Gait is withheld. LABORATORY Labs are reviewed. Potassium was 3.2; that needs replacement. Urinalysis was moderate mucus, culture not indicated. IMAGING Chest x-ray normal. IMPRESSION A 42-year-old woman with: 1. A known history of myasthenia with probable exacerbation. 2. Migraine. PLAN/RECOMMENDATIONS Recommend continuing her IVIG 0.4 gm/kg/day for a total of 5 days. Continue her Mestinon, prednisone and CellCept. Continue her antianxiety medicines. Watch her ___, have respiratory follow that. BiPAP if needed. For her migraine I will give her some Imitrex as well. MD KATARZYNA Shaikh/PEDRO /2:02 PM /2:13 PM
[2017-10-27] MEDS: oxyCODONE/ACETAMINOPHEN 10 MG/325 MG TAB PO PRN ×2 (15:08→21:20)
[2017-10-27] MEDS: SUMAtriptan INJ 6 MG/0.5 ML VIAL SQ PRN ×2 (15:10→18:25)
[2017-10-27] MEDS: PYRIDOSTIGMINE BROMIDE 60 MG TAB PO SCH (17:22)
[2017-10-27] MEDS: DOCUSATE SODIUM 50 MG/SENNA 8.6 MG TAB PO SCH (21:00)
[2017-10-27] MEDS: HEPARIN SODIUM - SQ 10,000 UNITS/ML VIAL SQ SCH (21:00)
[2017-10-27] MEDS: SODIUM CHLORIDE 0.9% FLUSH 10 ML FLUSH IV FLUSH SCH (21:23)
[2017-10-28 00:03] VITALS: BP 133/63; PULSE 84; RESP 18; TEMP 97.8; O2SAT 97
[2017-10-28] MEDS: ALPRAZolam 1 MG TAB PO PRN ×4 (03:57→22:50)
[2017-10-28] MEDS: oxyCODONE/ACETAMINOPHEN 10 MG/325 MG TAB PO PRN ×4 (03:57→22:50)
[2017-10-28 04:34] VITALS: BP 132/86; PULSE 110; RESP 18; TEMP 98.2; O2SAT 95
[2017-10-28 07:39] LABS: AUTOMATED NEUTROPHIL # 5.5 TH/MM3 (1.8-7.7); BASOPHIL # 0.1 TH/MM3 (0-0.2); BASOPHIL % 0.9 % (0.0-2.0); EOSINOPHIL # 0.1 TH/MM3 (0-0.4); EOSINOPHIL % 0.9 % (0.0-4.0); HEMATOCRIT 34.4 % (35.0-46.0); HEMOGLOBIN 10.9 GM/DL (11.6-15.3); LYMPH % 20.8 % (9.0-44.0); LYMPHOCYTE # 1.6 TH/MM3 (1.0-4.8); MEAN CELL VOLUME 81.1 FL (80.0-100.0); MEAN CORPUSCULAR HEMOGLOBIN 25.7 PG (27.0-34.0); MEAN CORPUSCULAR HGB CONC 31.7 % (32.0-36.0); MEAN PLATELET VOLUME 8.9 FL (7.0-11.0); MONO % 6.6 % (0.0-8.0); MONOCYTE # 0.5 TH/MM3 (0-0.9); NEUT % 70.8 % (16.0-70.0); PLATELET COUNT 397 TH/MM3 (150-450); RED BLOOD COUNT 4.24 MIL/MM3 (4.00-5.30); RED CELL DISTRIBUTION WIDTH 17.8 % (11.6-17.2); WHITE BLOOD COUNT 7.8 TH/MM3 (4.0-11.0)
[2017-10-28 07:49] LABS: ALBUMIN 3.3 GM/DL (3.4-5.0); ALT (GPT) 13 U/L (10-53); AST (GOT) 10 U/L (15-37); BICARBONATE 27.3 MEQ/L (21.0-32.0); BLOOD UREA NITROGEN 9 MG/DL (7-18); CALCIUM 8.9 MG/DL (8.5-10.1); CHLORIDE 111 MEQ/L (98-107); CREATININE 0.63 MG/DL (0.50-1.00); GLOMERULAR FILTRATION RATE 104 ML/MIN (>89); GLUCOSE,RANDOM 85 MG/DL (74-106); SODIUM (NA) 141 MEQ/L (136-145)
[2017-10-28 07:51] LABS: ALKALINE PHOSPHATASE 50 U/L (45-117); TOTAL BILIRUBIN ADULT 0.6 MG/DL (0.2-1.0); TOTAL PROTEIN 7.9 GM/DL (6.4-8.2)
[2017-10-28] MEDS: predniSONE 5 MG TAB PO SCH (08:27)
[2017-10-28] MEDS: PANTOPRAZOLE SOD 40 MG DELAYED RELEASE TAB PO SCH (08:27)
[2017-10-28] MEDS: CITALOPRAM HYDROBROMIDE 40 MG TAB PO SCH (08:27)
[2017-10-28] MEDS: HEPARIN SODIUM - SQ 10,000 UNITS/ML VIAL SQ SCH ×2 (08:28→21:00)
[2017-10-28] MEDS: DOCUSATE SODIUM 50 MG/SENNA 8.6 MG TAB PO SCH ×2 (08:28→21:00)
[2017-10-28] MEDS: PYRIDOSTIGMINE BROMIDE 60 MG TAB PO SCH ×3 (08:28→18:01)
[2017-10-28] MEDS: SODIUM CHLORIDE 0.9% FLUSH 10 ML FLUSH IV FLUSH SCH ×2 (08:29→21:18)
[2017-10-28 08:38] VITALS: BP 121/82; PULSE 83; RESP 20; TEMP 97.6; O2SAT 97
--- NOTE | 2017-10-28 11:38 | HHI.PR ---
Subjective Remarks Patient is well-known to me. Readmitted again for myasthenia gravis exacerbation. She reports she was not able to get outpatient IVIG set up yet. Patient reports she is feeling better. Still having problems with swallowing. Requesting to have Mestinon on schedule as she normally takes it at home. She reportedly slid out of bed earlier as she was shined to get back in bed. She denies any injuries. Objective Vitals Vital Signs Date Time Temp Pulse Resp B/P (MAP) Pulse Ox O2 Delivery O2 Flow Rate FiO2 10/28/17 08:38 97.6 83 20 121/82 (95) 97 10/28/17 04:34 98.2 110 18 132/86 (101) 95 10/28/17 00:03 97.8 84 18 133/63 (86) 97 10/27/17 20:30 97.6 68 18 135/63 (87) 97 10/27/17 17:00 98.0 82 16 130/82 (98) 100 10/27/17 14:02 98 Nasal Cannula 2.00 10/27/17 12:53 100 Nasal Cannula 2.00 10/27/17 12:50 81 16 127/71 (89) 96 Nasal Cannula 2.00 10/27/17 12:04 88 16 135/91 I/O 10/27/17 10/27/17 10/27/17 10/28/17 10/28/17 10/28/17 07:00 15:00 23:00 07:00 15:00 23:00 Intake Total 200 ml 360 ml Balance 200 ml 360 ml Intake Oral 360 ml IV Total 200 ml # Voids 3 Result Diagram: 10/28/17 0535 10/28/17 0535 Imaging Last Impressions Chest X-Ray 10/27/17 0839 Signed Impressions: Service Date/Time: Friday, October 27, 2017 09:11 - CONCLUSION: Normal examination. Left subclavian Vijdxp-p-Syoi in excellent position Ashok Beach MD Objective Remarks GENERAL: Patient appear older than stated age. Some slurred speech. CARDIOVASCULAR: Normal rate and regular rhythm without murmurs, gallops, or rubs. RESPIRATORY: Good respiratory efforts. Breath sounds equal and clear to auscultation bilaterally. GASTROINTESTINAL: Abdomen soft, non-tender, non-distended. Normal active bowel sounds MUSCULOSKELETAL: Extremities without cyanosis, or edema. NEURO: Alert & Oriented x4 to person, place, time, situation. Moves all ext x4. Generalized weakness PSYCH: Appropriate mood and affect. A/P Problem List: (1) Myasthenia gravis with exacerbation ICD Code: G70.01 - Myasthenia gravis with exacerbation Status: Acute (2) Right hip pain ICD Code: M25.551 - Pain in right hip Status: Acute (3) Chronic pain ICD Code: G89.29 - Chronic pain Status: Chronic (4) Migraine ICD Code: G43.909 - Migraine Status: Chronic (5) Hypokalemia ICD Code: E87.6 - Hypokalemia Status: Acute Assessment and Plan 42 years old female admitted again for myasthenia gravis exacerbation: Acute myasthenia gravis exacerbation Neurology following. Recommend IVIG for 5 days. Continue Mestinon Continue chronic Prednisone PT following. Depression/anxiety Resume home medications- Xanax/citalopram Respiratory distress with hypoxia. Patient presented in distress likely secondary to myasthenia gravis exacerbation. Now resolved, stable on room air chronic pain History of AVN of the hip Continue Percocet 10 q 6 Per patient plan to have hip surgery next month PT following. History of opiate dependence: Per discussion with the patient and her mother. She has struggled with addiction and has been in rehab twice. She agreed to not escalate pain medications at the end of her conversation. Patient is well known to me and does tend to have narcotic and anxiolytic seeking behaviors. [place] noting she presented here a couple of weeks ago for accidental overdose on benzodiazepines and she was positive for cocaine at the time. - She was counseled at length regarding goals to eventually completely weaned off narcotic pain medications. Patient counseled on complete cessation of illicit drug use. Heparin Sq for DVT prophylaxis Discharge Planning Continue IVIG. Consideration for outpatient IVIG in the infusion center if okay /can be arranged by neurologist. Fidelia Fiore MD Oct 28, 2017 11:38
[2017-10-28 11:52] VITALS: BP 112/75; PULSE 99; RESP 20; TEMP 96.3; O2SAT 98
[2017-10-28] MEDS: SODIUM CHLORID 0.9% 500 ML INJ 500 ML IV SCH ×2 (12:37→12:38)
[2017-10-28] MEDS: diphenhydrAMINE HCL 25 MG CAP PO SCH (12:38)
[2017-10-28] MEDS: ACETAMINOPHEN 325 MG TAB PO SCH (12:38)
[2017-10-28] MEDS ORDERED: EPINEPHrine HCL (1:1000) 1 MG/ML VIAL OTHER PRN (12:45)
[2017-10-28] MEDS ORDERED: diphenhydrAMINE HCL 50 MG/ML VIAL IV PUSH PRN (12:45)
[2017-10-28] MEDS: D5W as prime bag (IVIG as secondary) IV SCH (14:00)
[2017-10-28] MEDS: IMMUNE GLOBULIN INJ 20 GM in SYRINGE/BAG 1 EA IV SCH (14:54)
[2017-10-28 15:10] VITALS: BP 107/72; PULSE 79; RESP 20; TEMP 97.9; O2SAT 98
[2017-10-28 21:30] VITALS: BP 120/58; PULSE 80; RESP 17; TEMP 97.5; O2SAT 99
[2017-10-29] VITALS: BP 118/56; PULSE 80; RESP 16; TEMP 98; O2SAT 100
[2017-10-29] MEDS: SUMAtriptan INJ 6 MG/0.5 ML VIAL SQ PRN ×2 (02:04→05:43)
[2017-10-29 03:45] VITALS: BP 115/71; PULSE 71; RESP 17; TEMP 97.2; O2SAT 99
[2017-10-29] MEDS: oxyCODONE/ACETAMINOPHEN 10 MG/325 MG TAB PO PRN ×3 (04:34→22:41)
[2017-10-29] MEDS: ALPRAZolam 1 MG TAB PO PRN ×4 (04:39→22:41)
[2017-10-29] MEDS: PYRIDOSTIGMINE BROMIDE 60 MG TAB PO SCH ×3 (05:43→16:41)
[2017-10-29 08:00] VITALS: BP 120/56; PULSE 67; RESP 18; TEMP 97.9; O2SAT 100
[2017-10-29] MEDS: DOCUSATE SODIUM 50 MG/SENNA 8.6 MG TAB PO SCH ×2 (08:58→21:00)
[2017-10-29] MEDS: HEPARIN SODIUM - SQ 10,000 UNITS/ML VIAL SQ SCH ×2 (08:59→21:00)
[2017-10-29] MEDS: SODIUM CHLORIDE 0.9% FLUSH 10 ML FLUSH IV FLUSH SCH ×2 (09:00→22:49)
[2017-10-29] MEDS: CITALOPRAM HYDROBROMIDE 40 MG TAB PO SCH (09:00)
[2017-10-29] MEDS: predniSONE 5 MG TAB PO SCH (09:00)
[2017-10-29] MEDS: PANTOPRAZOLE SOD 40 MG DELAYED RELEASE TAB PO SCH (09:00)
--- NOTE | 2017-10-29 11:38 | HHI.PR ---
Subjective Remarks Patient reports she is feeling better today. Strength is getting better. Speech still slurred and not at baseline yet. Objective Vitals Vital Signs Date Time Temp Pulse Resp B/P (MAP) Pulse Ox O2 Delivery O2 Flow Rate FiO2 10/29/17 08:00 97.9 67 18 120/56 (77) 100 10/29/17 03:45 97.2 71 17 115/71 (86) 99 10/29/17 00:00 98.0 80 16 118/56 (76) 100 10/28/17 21:30 97.5 80 17 120/58 (78) 99 10/28/17 15:10 97.9 79 20 107/72 (84) 98 10/28/17 14:54 84 16 116/71 10/28/17 11:52 96.3 99 20 112/75 (87) 98 I/O 10/28/17 10/28/17 10/28/17 10/29/17 10/29/17 10/29/17 07:00 15:00 23:00 07:00 15:00 23:00 Intake Total 360 ml 720 ml 1200 ml 1800 ml Balance 360 ml 720 ml 1200 ml 1800 ml Intake Oral 360 ml 720 ml 1200 ml 1800 ml # Voids 3 3 1 7 # Bowel Movements 1 0 0 Result Diagram: 10/28/17 0535 10/28/17 0535 Objective Remarks GENERAL: Patient appear older than stated age. Some slurred speech. CARDIOVASCULAR: Normal rate and regular rhythm without murmurs, gallops, or rubs. RESPIRATORY: Good respiratory efforts. Breath sounds equal and clear to auscultation bilaterally. GASTROINTESTINAL: Abdomen soft, non-tender, non-distended. Normal active bowel sounds MUSCULOSKELETAL: Extremities without cyanosis, or edema. NEURO: Alert & Oriented x4 to person, place, time, situation. Moves all ext x4. Generalized weakness PSYCH: Appropriate mood and affect. A/P Problem List: (1) Myasthenia gravis with exacerbation ICD Code: G70.01 - Myasthenia gravis with exacerbation Status: Acute (2) Right hip pain ICD Code: M25.551 - Pain in right hip Status: Acute (3) Chronic pain ICD Code: G89.29 - Chronic pain Status: Chronic (4) Migraine ICD Code: G43.909 - Migraine Status: Chronic (5) Hypokalemia ICD Code: E87.6 - Hypokalemia Status: Acute Assessment and Plan 42 years old female admitted again for myasthenia gravis exacerbation: Acute myasthenia gravis exacerbation Neurology following. Recommend IVIG for 5 days. Day 3 out of 5 Continue Mestinon Continue chronic Prednisone PT following. Depression/anxiety Continue home medications- Xanax/citalopram Respiratory distress with hypoxia. Patient presented in distress likely secondary to myasthenia gravis exacerbation. Now resolved, stable on room air chronic pain History of AVN of the hip Continue Percocet 10 q 6 PRN Per patient plan, she will have hip surgery next month PT following. History of opiate dependence: Per discussion with the patient and her mother. She has struggled with addiction and has been in rehab twice. She agreed to not escalate pain medications at the end of her conversation. Patient is well known to me from previous admissions and does tend to have narcotic and anxiolytic seeking behaviors. [place] noting she presented here a couple of weeks ago for accidental overdose on benzodiazepines and she was positive for cocaine at the time. - She was counseled at length regarding goals to eventually completely weaned off narcotic pain medications. Patient counseled on complete cessation of illicit drug use. Heparin Sq for DVT prophylaxis Discharge Planning Continue IVIG. Consideration for outpatient IVIG in the infusion center if okay /can be arranged by the patient's neurologist. Fidelia Fiore MD Oct 29, 2017 11:38
[2017-10-29 12:00] VITALS: BP 111/62; PULSE 78; RESP 17; TEMP 98.6; O2SAT 96
[2017-10-29] MEDS: diphenhydrAMINE HCL 25 MG CAP PO SCH (12:07)
[2017-10-29] MEDS: ACETAMINOPHEN 325 MG TAB PO SCH (12:07)
[2017-10-29] MEDS: SODIUM CHLORID 0.9% 500 ML INJ 500 ML IV SCH ×2 (13:34→13:37)
[2017-10-29] MEDS: D5W as prime bag (IVIG as secondary) IV SCH (14:00)
[2017-10-29] MEDS: IMMUNE GLOBULIN INJ 20 GM in SYRINGE/BAG 1 EA IV SCH (14:46)
[2017-10-29] MEDS ORDERED: ACETAMIN 325 MG/BUTALBITAL 50 MG/CAFFEINE 40 MG TAB PO PRN ×2 (15:15)
[2017-10-29 16:00] VITALS: BP 132/60; PULSE 74; RESP 18; TEMP 97.8; O2SAT 99
[2017-10-29 22:00] VITALS: BP 105/64; PULSE 64; RESP 16; TEMP 98.8; O2SAT 100
[2017-10-30] VITALS (12 sets, daily range): BP systolic 105–146; BP diastolic 55–75; PULSE 64–85; RESP 16–18; TEMP 97.6–98.2; O2SAT 96–100
[2017-10-30] MEDS: ALPRAZolam 1 MG TAB PO PRN ×4 (05:38→23:44)
[2017-10-30] MEDS: oxyCODONE/ACETAMINOPHEN 10 MG/325 MG TAB PO PRN ×4 (05:38→23:44)
[2017-10-30] MEDS: PYRIDOSTIGMINE BROMIDE 60 MG TAB PO SCH ×3 (06:05→17:55)
[2017-10-30] MEDS: SUMAtriptan INJ 6 MG/0.5 ML VIAL SQ PRN ×2 (06:38→08:22)
[2017-10-30] MEDS: SODIUM CHLORIDE 0.9% FLUSH 10 ML FLUSH IV FLUSH SCH ×2 (08:24→21:12)
[2017-10-30] MEDS: HEPARIN SODIUM - SQ 10,000 UNITS/ML VIAL SQ SCH ×2 (08:26→21:00)
[2017-10-30] MEDS: DOCUSATE SODIUM 50 MG/SENNA 8.6 MG TAB PO SCH ×2 (08:26→21:00)
[2017-10-30] MEDS: predniSONE 5 MG TAB PO SCH (08:27)
[2017-10-30] MEDS: CITALOPRAM HYDROBROMIDE 40 MG TAB PO SCH (08:27)
[2017-10-30] MEDS: PANTOPRAZOLE SOD 40 MG DELAYED RELEASE TAB PO SCH (08:27)
--- NOTE | 2017-10-30 10:42 | HHI.PR ---
Subjective Remarks Patient reports that her strength is close to her baseline. Speech normalized. No new issues. Objective Vitals Vital Signs Date Time Temp Pulse Resp B/P (MAP) Pulse Ox O2 Delivery O2 Flow Rate FiO2 10/30/17 09:11 84 10/30/17 08:00 97.6 72 17 106/67 (80) 97 10/30/17 04:00 98.1 73 18 115/59 (77) 100 10/30/17 01:00 97.6 64 16 110/67 (81) 100 10/29/17 22:00 98.8 64 16 105/64 (78) 100 10/29/17 16:00 97.8 74 18 132/60 (84) 99 10/29/17 14:46 71 18 105/55 10/29/17 12:00 98.6 78 17 111/62 (78) 96 I/O 10/29/17 10/29/17 10/29/17 10/30/17 10/30/17 10/30/17 07:00 15:00 23:00 07:00 15:00 23:00 Intake Total 1800 ml 1760 ml 1800 ml Balance 1800 ml 1760 ml 1800 ml Intake Oral 1800 ml 1760 ml 1800 ml # Voids 7 7 4 # Bowel Movements 0 0 0 Result Diagram: 10/28/17 0535 10/28/17 0535 Objective Remarks GENERAL: Patient appear older than stated age. CARDIOVASCULAR: Normal rate and regular rhythm without murmurs, gallops, or rubs. RESPIRATORY: Good respiratory efforts. Breath sounds equal and clear to auscultation bilaterally. GASTROINTESTINAL: Abdomen soft, non-tender, non-distended. Normal active bowel sounds MUSCULOSKELETAL: Extremities without cyanosis, or edema. NEURO: Alert & Oriented x4 to person, place, time, situation. Moves all ext x4. PSYCH: Appropriate mood and affect. A/P Problem List: (1) Myasthenia gravis with exacerbation ICD Code: G70.01 - Myasthenia gravis with exacerbation Status: Acute (2) Right hip pain ICD Code: M25.551 - Pain in right hip Status: Acute (3) Chronic pain ICD Code: G89.29 - Chronic pain Status: Chronic (4) Migraine ICD Code: G43.909 - Migraine Status: Chronic (5) Hypokalemia ICD Code: E87.6 - Hypokalemia Status: Acute Assessment and Plan 42 years old female admitted again for myasthenia gravis exacerbation: Acute myasthenia gravis exacerbation Neurology following. Recommend IVIG for 5 days. Day 4 out of 5 Continue Mestinon Continue chronic Prednisone PT following. Depression/anxiety Continue home medications- Xanax/citalopram Respiratory distress with hypoxia. Patient presented in distress likely secondary to myasthenia gravis exacerbation. Now resolved, stable on room air chronic pain History of AVN of the hip Continue Percocet 10 q 6 PRN Per patient plan, she will have hip surgery next month PT following. History of opiate dependence: Per discussion with the patient and her mother. She has struggled with addiction and has been in rehab twice. She agreed to not escalate pain medications at the end of her conversation. Patient is well known to me from previous admissions and does tend to have narcotic and anxiolytic seeking behaviors. [place] noting she presented here a couple of weeks ago for accidental overdose on benzodiazepines and she was positive for cocaine at the time. - She was counseled at length regarding goals to eventually completely weaned off narcotic pain medications. Patient counseled on complete cessation of illicit drug use. Heparin Sq for DVT prophylaxis Discharge Planning Continue IVIG. DC home tomorrow after last dose of IVIG. Fidelia Fiore MD Oct 30, 2017 10:42
[2017-10-30] MEDS: diphenhydrAMINE HCL 25 MG CAP PO SCH (13:08)
[2017-10-30] MEDS: ACETAMINOPHEN 325 MG TAB PO SCH (13:08)
--- NOTE | 2017-10-30 13:13 | HHI.DCPOC ---
Discharge Care Plan Diagnosis: (1) Myasthenia exacerbation (2) Right hip pain Goals to Promote Your Health * To prevent worsening of your condition and complications * To maintain your health at the optimal level Directions to Meet Your Goals Take your medications as prescribed Follow your dietary instruction Follow activity as directed Keep your appointments as scheduled Take your immunizations and boosters as scheduled If your symptoms worsen call your PCP, if no PCP go to Urgent Care Center or Emergency Room Smoking is Dangerous to Your Health. Avoid second hand smoke Call the 24-hour hour crisis hotline for domestic abuse at Fidelia Fiore MD Oct 30, 2017 13:13
[2017-10-30] MEDS: IMMUNE GLOBULIN INJ 20 GM in SYRINGE/BAG 1 EA IV SCH (14:25)
[2017-10-30] MEDS: D5W as prime bag (IVIG as secondary) IV SCH (14:26)
[2017-10-30] MEDS: ONDANSETRON HCL 4 MG/2 ML VIAL IVP PRN (18:35)
[2017-10-31] VITALS (9 sets, daily range): BP systolic 90–119; BP diastolic 52–64; PULSE 60–91; RESP 16–18; TEMP 97.9–98.3; O2SAT 82–98
[2017-10-31] MEDS: ALPRAZolam 1 MG TAB PO PRN ×3 (06:43→17:34)
[2017-10-31] MEDS: oxyCODONE/ACETAMINOPHEN 10 MG/325 MG TAB PO PRN ×3 (06:44→17:34)
[2017-10-31] MEDS: PYRIDOSTIGMINE BROMIDE 60 MG TAB PO SCH ×3 (06:44→17:34)
[2017-10-31] MEDS: SUMAtriptan INJ 6 MG/0.5 ML VIAL SQ PRN ×2 (08:31→09:45)
[2017-10-31] MEDS: predniSONE 5 MG TAB PO SCH (08:33)
[2017-10-31] MEDS: CITALOPRAM HYDROBROMIDE 40 MG TAB PO SCH (08:33)
[2017-10-31] MEDS: HEPARIN SODIUM - SQ 10,000 UNITS/ML VIAL SQ SCH (08:33)
[2017-10-31] MEDS: DOCUSATE SODIUM 50 MG/SENNA 8.6 MG TAB PO SCH (08:33)
[2017-10-31] MEDS: PANTOPRAZOLE SOD 40 MG DELAYED RELEASE TAB PO SCH (08:33)
[2017-10-31] MEDS: SODIUM CHLORIDE 0.9% FLUSH 10 ML FLUSH IV FLUSH SCH (08:34)
[2017-10-31] MEDS: ONDANSETRON HCL 4 MG/2 ML VIAL IVP PRN (09:45)
--- NOTE | 2017-10-31 09:54 | HHI.FF ---
Face to Face Verification Diagnosis: (1) Myasthenia exacerbation (2) Myasthenia gravis Physical Therapy Order: Evaluate and Treat, Improve ambulation, Strength and gait training Home Health Nursing Order: Medical education I have seen patient Brionna Rodríguez on 10/31/17. My clinical findings support the need for the requested home health care services because: Med compliance is questionable Need for psychosocial assistance I certify that my clinical findings support that this patient is homebound because: Unsteady gait/balance Fidelia Fiore MD Oct 31, 2017 09:54
--- NOTE | 2017-10-31 09:55 | HHI.DS ---
Discharge Summary Admission Date Oct 27, 2017 at 12:10 Discharge Date: Oct 31, 2017 Admitting Diagnosis MYASTHENIA GRAVIS EXACERBATION (1) Myasthenia gravis with exacerbation ICD Code: G70.01 - Myasthenia gravis with exacerbation Status: Acute (2) Right hip pain ICD Code: M25.551 - Pain in right hip Status: Acute (3) Chronic pain ICD Code: G89.29 - Chronic pain Status: Chronic (4) Migraine ICD Code: G43.909 - Migraine Status: Chronic (5) Hypokalemia ICD Code: E87.6 - Hypokalemia Status: Acute Procedures None Brief History - From Admission History of present illness from the admitting physician 42-year-old female with a past medical history significant for myasthenia gravis and avascular necrosis of the right hip , who has been admitted numerous times to the hospital presents with an exacerbation of her myasthenia gravis as well as shortness of breath with hypoxia for which patient initially was placed on CPAP by EMS and then BiPAP in the ED. Patient reported worsening shortness of breath without any chest pain. She also complains of headaches. Patient has been requesting more narcotics for right hip pain. She denies any GI bleed. She states, she would have right hip surgery next month. CBC/BMP: 10/28/17 0535 10/28/17 0535 Imaging Last Impressions Chest X-Ray 10/27/17 0839 Signed Impressions: Service Date/Time: Friday, October 27, 2017 09:11 - CONCLUSION: Normal examination. Left subclavian [id number] in excellent position Ashok Beach MD PE at Discharge GENERAL: Patient appear older than stated age. CARDIOVASCULAR: Normal rate and regular rhythm without murmurs, gallops, or rubs. RESPIRATORY: Good respiratory efforts. Breath sounds equal and clear to auscultation bilaterally. GASTROINTESTINAL: Abdomen soft, non-tender, non-distended. Normal active bowel sounds MUSCULOSKELETAL: Extremities without cyanosis, or edema. NEURO: Alert & Oriented x4 to person, place, time, situation. Moves all ext x4. PSYCH: Appropriate mood and affect. Pt update on day of discharge Patient reports she is close to her baseline. No respiratory issues. She is ambulating. We discussed discharge planning at length. Hospital Course 42 years old female admitted again for myasthenia gravis exacerbation. Patient was followed by neurology recommended 5 days of IVIG which she completed. Other conditions treated include: Depression/anxiety Continue home medications- Xanax/citalopram Respiratory distress with hypoxia. Patient presented in distress likely secondary to myasthenia gravis exacerbation. This completely resolved and the patient is back on room air. chronic pain History of AVN of the hip Patient was treated with Percocet every 6 hours as needed. Per patient plan, she will have hip surgery next month PT followed the patient and provided therapy. History of opiate dependence: Per discussion with the patient and her mother. She has struggled with addiction and has been in rehab twice. Patient is well known to me from previous admissions and does tend to have narcotic and anxiolytic seeking behaviors. [place] noting she presented here a couple of weeks ago for accidental overdose on benzodiazepines and she was positive for cocaine at the time. - She was counseled at length regarding goals to eventually completely weaned off narcotic pain medications. Patient counseled on complete cessation of illicit drug use. Pt Condition on Discharge: Stable Discharge Disposition: Disch w/ Home Health Serv Discharge Time: > 30 minutes Discharge Instructions DIET: Follow Instructions for: As Tolerated, No Restrictions Activities you can perform: Regular-No Restrictions Follow up Referrals: Neurology Continued Medications: Alprazolam (Xanax) 1 Mg Tab 1 MG PO Q6H for Anxiety, #10 TAB 0 Refills Citalopram (Citalopram) 40 Mg Tab 40 MG PO DAILY for Control Depression, #30 TAB 0 Refills Lactobacillus Acidophilus (Lactinex) 1 Chew 1 TAB CHEW DAILY for Nutritional Supplement, #30 TAB 0 Refills Mycophenolate (Cellcept) 500 Mg Tab 500 MG PO DAILY@18, #30 TAB Oxycodone HCl/Acetaminophen (Oxycodone-Acetaminophen 10-325) 10 Mg-325 Mg Tablet 1 TAB PO Q12HR PRN for PAIN SCALE 4 TO 10, #15 TAB 0 Refills Prednisone (Prednisone) 5 Mg Tab 5 MG PO DAILY, TAB 0 Refills Pyridostigmine (Mestinon) 60 Mg Tab 120 MG PO TIDAC for Manage Myastenia Gravis, #90 TAB 0 Refills Sumatriptan (Imitrex) 50 Mg Tab 50 MG PO as needed PRN for HEADACHE, #10 TAB 0 Refills If a satisfactory response has not been obtained at 2 hours, a second dose may be administered Discontinued Medications: Midodrine (Midodrine) 5 Mg Tab 7.5 MG PO TID@0700,1200,1700 for low blood pressure , #90 TAB Fidelia Fiore MD Oct 31, 2017 09:55
[2017-10-31] MEDS: ACETAMINOPHEN 325 MG TAB PO SCH (12:31)
[2017-10-31] MEDS: diphenhydrAMINE HCL 25 MG CAP PO SCH (12:31)
[2017-10-31] MEDS: SODIUM CHLORID 0.9% 500 ML INJ 500 ML IV SCH (12:32)
[2017-10-31] MEDS: D5W as prime bag (IVIG as secondary) IV SCH (13:53)
[2017-10-31] MEDS: IMMUNE GLOBULIN INJ 20 GM in SYRINGE/BAG 1 EA IV SCH (13:53)
[2017-10-31] MEDS ORDERED: CITA40TA4 PO (14:11)
[2017-10-31] MEDS ORDERED: PRED5TAB PO (14:11)
[2017-11-01] MEDS ORDERED: MYCO500 PO (09:05)
[2017-11-01] MEDS ORDERED: MEST60TA PO (09:08)
[2017-11-01] MEDS ORDERED: MIDO5TAB PO (09:34)
== END 2017-10-31 18:54 | disposition home health service (06) | DRG 57 ==
LOC: NEPE 08:11 → NEDA 11:29 → OBSVTOIN 12:10 → NEDA 18:23 → N05A 18:56
PROVIDERS: ADMIT Family Medicine; ATTEND Family Medicine
DX: G70.01 Myasthenia gravis with (acute) exacerbation (principal); F11.20 Opioid dependence, uncomplicated; M90.551 Osteonecrosis in diseases classified elsewhere, right thigh; E87.6 Hypokalemia; R09.02 Hypoxemia; G43.909 Migraine, unspecified, not intractable, without status migrainosus; G89.29 Other chronic pain; M25.551 Pain in right hip; F41.9 Anxiety disorder, unspecified; F19.90 Other psychoactive substance use, unspecified, uncomplicated; F32.9 Major depressive disorder, single episode, unspecified; Z79.52 Long term (current) use of systemic steroids; Z87.891 Personal history of nicotine dependence; Z88.0 Allergy status to penicillin
CPT/HCPCS: 71045; 80053; 81001; 83690; 83735; 83880; 84443; 84484; 84703; 85025; 85610; 85730; 87640; 87641; 87804; 93005; 94002; 96374; J1459; J1642; J1720; J2405; J3030; J7040; J7060; J7512; P9612

== ENCOUNTER → 2017-11-01 | Outpatient (CLI) | payer MEDICARE, MEDICAID | LOC: CPRE 08:32 | PROVIDERS: ATTEND Orthopaedic Surgery Sports Medicine | DX: Z01.810 Encounter for preprocedural cardiovascular examination (principal); Z01.811 Encounter for preprocedural respiratory examination; Z01.812 Encounter for preprocedural laboratory examination; M79.609 Pain in unspecified limb; Z96.60 Presence of unspecified orthopedic joint implant; Z13.9 Encounter for screening, unspecified ==

== ENCOUNTER 2017-11-15 10:04 | Inpatient (IN) | payer MEDICARE, MEDICAID ==
[~2017-11-15] VITALS: Ht 165.1 cm; Wt 50.0 kg
[2017-11-15] MEDS ORDERED: PROPOFOL 200 MG/20 ML AMP IV ONE (12:00)
[2017-11-15] MEDS ORDERED: ePHEDrine/NS 25 MG/5 ML SYRINGE IV ONE (12:00)
[2017-11-15] MEDS ORDERED: ROCURONIUM INJ 50 MG/5 ML SYRINGE IV PUSH ONE (12:00)
[2017-11-15] MEDS ORDERED: PHENYLEPH/NS 1000 MCG/10 ML SYR IV ONE (12:00)
[2017-11-15] MEDS ORDERED: ONDANSETRON HCL 4 MG/2 ML VIAL IV ONE (12:00)
[2017-11-15] MEDS ORDERED: KETOROLAC TROMETHAMINE 30 MG/ML (IVP) VIAL IV PUSH ONE (12:00)
[2017-11-15] MEDS ORDERED: LACTATED RINGER'S 1000 ML IV PRN (12:15)
[2017-11-15] MEDS ORDERED: SODIUM CHLORID 0.9% 500 ML IV PRN (12:15)
[2017-11-15] MEDS ORDERED: CHLORHEXIDINE GLUCONATE 2 % 1 PACK (2 CLOTHS) TOPICAL PRN (12:15)
[2017-11-15] MEDS ORDERED: METOPROLOL TARTRATE 25 MG TAB PO PRN (12:15)
[2017-11-15] MEDS ORDERED: POVIDONE IODINE 5% (ANTISEPSIS KIT) 4 APPLICATIONS EACH NARE PRN (12:15)
[2017-11-15] MEDS ORDERED: INSULIN HUMAN REGULAR 1,000 UNITS/10 ML VIAL SQ PRN (12:15)
[2017-11-15] MEDS ORDERED: VANCOMYCIN 1 GM/200 ML PREMIX ON-CALL IV SCH (12:30)
[2017-11-15] MEDS ORDERED: VANCOMYCIN 1000 MG/NS 250 ML (for <70 kg) IV SCH ×2 (12:30)
[2017-11-15] MEDS ORDERED: CHLORHEXIDINE GLUCONATE 4% SOLN 120 ML BTL TOPICAL SCH (12:30)
[2017-11-15] MEDS ORDERED: EXPAREL PERI-ARTICULAR INJECTION (TOTAL VOL. 60 ML) P-ARTICULR SCH ×2 (13:00)
[2017-11-15] MEDS ORDERED: TRANEXAMIC ACID INJ 500 MG in SODIUM CHLORIDE 0.9% INJ 100 ML IV SCH ×2 (13:00→16:00)
[2017-11-15] MEDS ORDERED: SODIUM CHLORIDE 0.9% INJ 100 ML ONE (13:15)
[2017-11-15] MEDS ORDERED: CLINDAMYCIN 900 MG/NS 100 ML IV SCH ×2 (14:00)
[2017-11-15] MEDS ORDERED: GENTAMICIN SULFATE 80 MG/2 ML VIAL ONE (14:46)
[2017-11-15] MEDS ORDERED: PROPOFOL 500 MG/50 ML INJ 50 ML ONE (16:34)
--- NOTE | 2017-11-15 17:40 | PD.OP ---
cc: Luis Armando Baron MD Operative Report Date of Surgery: Nov 15, 2017 Preoperative Diagnosis: (1) Avascular necrosis of right femoral head Postoperative Diagnosis: (1) Avascular necrosis of right femoral head Procedure: Right total hip arthroplasty Implants used: Depuy Corail size 11 press-fit femoral stem, 48 [place] acetabular cup with a 28 mm head and a +12 neck length Anesthesia: Spinal Surgeon: Luis Armando Baron Bulkhead Carpenter(s): Marilou Harmon PA-C ([place]) The surgical procedure was assisted by my physician's visitor services information assistant. Her presence was necessary throughout the case for manipulation and positioning of the surgical extremity. My PA was assisting me throughout the duration of this procedure. The skill set of the physician visitor services information assistant was medically necessary to complete this procedure. During the surgical case the regional vice president surgical sales was working at the back table and the physician visitor services information assistant was directly assisting me. Operation and Findings: Indications: This 42-year-old female who has a history of myasthenia gravis and has required steroid treatment in the past developed the onset of avascular necrosis involving her right femoral head. Initially conservative treatment was recommended however the patient has had progressive discomfort and has severe pain and limitations. X-rays are consistent with collapse of the femoral head and given the alternatives to treatment presents for total hip arthroplasty. Procedure and findings: The patient was taken to the operative suite and after undergoing an adequate level of spinal anesthesia was placed in the lateral decubitus position on the operating table. Preoperative antibiotics consisted of vancomycin 1 g IV and clindamycin 900 mg IV. The right lower extremity was then prepped and draped in usual sterile fashion with alcohol and Hibiclens and ChloraPrep. A standard posterior lateral approach the hip was made with an incision centered over the greater trochanter. This was carried down to skin and subcutaneous tense tissue with a knife. Hemostasis was obtained with cautery. The iliotibial band was identified distally and the gluteus lukas fascia proximally. These were split longitudinally. This brought the greater trochanteric bursa into view which was partially excised. The short external rotators were released from the posterior aspect of the femur up to the level of the piriformis. This was tagged. The sciatic nerve was palpable in the depths of the wound and avoided. A T capsulotomy incision was made. A joint effusion was evacuated. There was a joint effusion and significant synovitis and synovial hypertrophy. The hip was then easily dislocated. There was noted to be collapse of the superior aspect of the head and the lamination of the articular cartilage. A neck cut was made utilizing an osteotomy guide. The head was then sized on the back table. The labrum was excised. Soft tissue was removed from the floor of the acetabulum. The acetabulum was then sequentially reamed up to a size 48 in approximately 45 of abduction and 25 of anteversion. A size 48 trial was seated and gave good fit and fill. This component was therefore selected. The wound was thoroughly irrigated with pulse lavage. The 48 acetabular cup was then impacted into place. The liner was then seated. Attention was then focused on the proximal femur which was sequentially reamed and broached up to a size 11. With the size [address] trial reductions were completed. The +12 neck length gave the best range of motion and stability with equalization of limb lengths. The patient did have a limb length inequality preoperatively right shorter than left. These components were therefore selected. The wound was again thoroughly irrigated with pulse lavage. The size 11 Corail stem was then impacted into place. The 28 head was then impacted onto the proximal aspect of the stem with a Pacheco taper fit. Reduction was then accomplished and good range of motion, stability and equalization of limb lengths again noted. The wound was again thoroughly irrigated with pulse lavage. Hemovac drains were left in place. Incision was closed in layers utilizing #1 Tycron and #1 Vicryl on the posterior capsule, #1 Vicryl on the iliotibial band and gluteus Lukas fascia, 0 Vicryl suture on the deep tissue, 2-0 Vicryl suture and the subcutaneous tissue, 3-0 Vicryl on the subcuticular tissue and Steri-Strips on the skin. Sterile dressings were applied, the patient was placed into an abduction pillow, awakened and transferred to the hospital bed. He was then taken to the recovery room in stable condition. Estimated blood loss: 150 cc Complications: None Luis Armando Baron MD Nov 15, 2017 17:40
[2017-11-15] MEDS ORDERED: MISCELLANEOUS NURSING INFORMATION XX PRN (17:45)
[2017-11-15] MEDS ORDERED: TRANEXAMIC ACID INJ 1,000 MG in SODIUM CHLORIDE 0.9% INJ 100 ML IV SCH (17:45)
[2017-11-15] MEDS ORDERED: ALUMINUM/MAGNESIUM/SIMETH 30 ML CUP PO PRN (17:45)
[2017-11-15] MEDS ORDERED: NALOXONE HCL 0.4 MG/ML AMP IV PUSH PRN (17:45)
[2017-11-15] MEDS ORDERED: diphenhydrAMINE HCL 25 MG CAP PO PRN (17:45)
[2017-11-15] MEDS ORDERED: MISCELLANEOUS PHARMACY INFORMATION XX ONE (17:45)
[2017-11-15] MEDS ORDERED: ONDANSETRON HCL 4 MG/2 ML VIAL IVP PRN (17:45)
[2017-11-15] MEDS ORDERED: oxyCODONE/ACETAMINOPHEN 5 MG/325 MG TAB PO PRN (17:45)
[2017-11-15] MEDS ORDERED: SENNOSIDES 8.6 MG TAB PO PRN (17:45)
[2017-11-15] MEDS ORDERED: TEMAZEPAM 15 MG CAP PO PRN (17:45)
[2017-11-15] MEDS ORDERED: Post-op Orders (for Pharmacy) XX ONE (17:45)
[2017-11-15] MEDS ORDERED: SODIUM CHLORIDE 0.9% FLUSH 10 ML FLUSH IV FLUSH PRN (17:45)
[2017-11-15] MEDS ORDERED: ACETAMINOPHEN 325 MG TAB PO PRN (17:45)
[2017-11-15] MEDS ORDERED: MAGNESIUM HYDROXIDE SUSP 30 ML CUP PO PRN (17:45)
[2017-11-15] MEDS ORDERED: BISACODYL 10 MG SUPP RECTAL PRN (17:45)
[2017-11-15] MEDS ORDERED: LACTULOSE SYRUP 20 GM/30 ML CUP PO PRN (17:45)
[2017-11-15] MEDS ORDERED: DO NOT ADM ANY ANTICOAGULANT DRUGS PRN (18:00)
[2017-11-15] MEDS ORDERED: *morphine SULFATE 10 MG/ML PERIprocedure ONLY ONE (18:02)
[2017-11-15] MEDS ORDERED: LORazepam 2 MG/ML VIAL ONE (18:05)
[2017-11-15] MEDS ORDERED: MIDAZOLAM HCL 2 MG/2 ML VIAL ONE (18:09)
[2017-11-15] MEDS ORDERED: *morphine SULFATE 8 MG/ML PERIprocedure ONLY ONE ×2 (18:10→18:18)
[2017-11-15] MEDS ORDERED: HYDROmorphone HCL PF 2 MG/ML VIAL ONE ×3 (18:27→19:13)
[2017-11-15] MEDS: LACTATED RINGER'S 1000 ML INJ 1,000 ML IV SCH (18:30)
--- NOTE | 2017-11-15 18:40 | RADRPT ---
EXAM DATE/TIME: 11/15/2017 18:02 [facility] COMPARISON: No previous studies available for comparison. INDICATIONS : Post op right hip arthroplasty. MEDICAL HISTORY : myasthenia gravis, migraines, anemia, depression, C-diff SURGICAL HISTORY : thymus removed, left chest port, blood transfusions ENCOUNTER: Initial ACUITY: 1 day PAIN SCORE: 7/10 LOCATION: Right hip FINDINGS: View of the right hip was obtained. There is a right hip prosthesis in place. The bony structures are intact. There is good Alignment of the prosthesis.. CONCLUSION: Good position and alignment of the right hip prosthesis. Delroy James MD on November 15, 2017 at 18:37 Board Certified Radiologist. This report was verified electronically.
[2017-11-15] MEDS ORDERED: LORazepam 2 MG/ML VIAL IV PRN (18:45)
[2017-11-15] MEDS ORDERED: MORPHINE SULFATE 4 MG/ML INJ IV PUSH PRN (18:45)
[2017-11-15] MEDS: MORPHINE SULFATE 30 MG/30 ML PCA IV SCH (18:46)
[2017-11-15 19:40] VITALS: BP 90/53; PULSE 69; RESP 17; TEMP 96.4; O2SAT 94
[2017-11-15] MEDS ORDERED: CLINDAMYCIN INJ 600 MG in SODIUM CHLORIDE 0.9% INJ 100 ML IV SCH (21:00)
[2017-11-15] MEDS: SODIUM CHLORIDE 0.9% FLUSH 10 ML FLUSH IV FLUSH SCH (21:23)
[2017-11-15] MEDS: CLINDAMYCIN 600 MG/NS PREMIX 50 ML IV SCH (21:23)
[2017-11-15] MEDS: DOCUSATE SODIUM 50 MG/SENNA 8.6 MG TAB PO SCH (21:26)
[2017-11-15] MEDS: PCA - TOTAL MG MORPHINE DELIVERED PER SHIFT SCH (21:27)
[2017-11-15] MEDS ORDERED: XANA1TAB2 PO (21:32)
[2017-11-15] MEDS ORDERED: ALPRAZolam 0.5 MG TAB PO ONE (21:45)
[2017-11-15] MEDS: PYRIDOSTIGMINE BROMIDE 60 MG TAB PO SCH (22:16)
[2017-11-15 23:00] VITALS: BP 100/62; PULSE 73; RESP 17; TEMP 97.7; O2SAT 95
[2017-11-16] VITALS (9 sets, daily range): BP systolic 94–132; BP diastolic 52–78; PULSE 65–120; RESP 15–19; TEMP 96.3–101.7; O2SAT 94–98
[2017-11-16] MEDS: MORPHINE SULFATE 30 MG/30 ML PCA IV SCH ×4 (02:32→20:07)
[2017-11-16] MEDS: CLINDAMYCIN 600 MG/NS PREMIX 50 ML IV SCH ×3 (02:33→14:49)
[2017-11-16] MEDS: oxyCODONE/ACETAMINOPHEN 5 MG/325 MG TAB PO PRN ×5 (03:46→22:09)
[2017-11-16] MEDS: PYRIDOSTIGMINE BROMIDE 60 MG TAB PO SCH ×3 (06:21→17:49)
[2017-11-16] MEDS: PCA - TOTAL MG MORPHINE DELIVERED PER SHIFT SCH ×3 (06:27→20:05)
[2017-11-16] MEDS: LACTATED RINGER'S 1000 ML INJ 1,000 ML IV SCH ×2 (06:28→13:01)
--- NOTE | 2017-11-16 07:33 | PD.ORT.PN ---
Subjective Post Op Day #: 1 Pain Scale: 8 Subjective Remarks The patient is awake and alert. She complains of hip pain and is tearful during the questioning. She has no other specific complaint. Objective Vitals Vital Signs Date Time Temp Pulse Resp B/P (MAP) Pulse Ox O2 Delivery O2 Flow Rate FiO2 11/16/17 06:27 18 11/16/17 04:45 98.1 85 19 119/76 (90) 98 11/16/17 02:32 18 11/15/17 23:00 97.7 73 17 100/62 (75) 95 11/15/17 21:27 18 11/15/17 19:40 96.4 69 17 90/53 (65) 94 11/15/17 19:30 69 18 110/58 (75) 99 Nasal Cannula 2 11/15/17 19:15 64 20 113/59 (77) 96 Nasal Cannula 2 11/15/17 19:00 97.0 66 24 109/66 (80) 98 Nasal Cannula 2 11/15/17 18:46 16 11/15/17 18:45 62 20 108/62 (77) 99 Nasal Cannula 2 11/15/17 18:30 61 24 112/56 (74) 99 Nasal Cannula 2 11/15/17 18:15 62 26 108/55 (72) 95 Nasal Cannula 2 11/15/17 18:00 95.6 11/15/17 18:00 95.9 68 28 110/54 (72) 96 Nasal Cannula 2 11/15/17 17:55 58 22 107/58 (74) 100 Nasal Cannula 2 11/15/17 12:44 98.7 70 20 115/72 (86) 98 I/O 11/15/17 11/15/17 11/15/17 11/16/17 11/16/17 11/16/17 07:00 15:00 23:00 07:00 15:00 23:00 Intake Total 2520 ml 960 ml Output Total 670 ml 220 ml Balance 1850 ml 740 ml Intake Oral 1020 ml 960 ml Other 1500 ml Output Urine Total 300 ml Drainage Total 20 ml 220 ml Estimated Blood Loss 350 ml # Voids 5 4 # Bowel Movements 0 0 Imaging Last 48 hours Impressions Hip X-Ray 11/15/17 0000 Signed Impressions: Service Date/Time: Wednesday, November 15, 2017 18:02 - CONCLUSION: Good position and alignment of the right hip prosthesis. Delroy James MD Procedures Right total hip arthroplasty 11/15/17 Objective Remarks The right hip dressing is dry and intact.The drain is in place.There is minimal swelling. She has pain with attempts at range of motion.There is no calf swelling. She has a negative Homans sign. Neurologically no focal deficit. Assessment & Plan Ortho Post Op Day #: 1 Problem List: (1) Avascular necrosis of right femoral head ICD Codes: M87.051 - Idiopathic aseptic necrosis of right femur (2) Chronic pain ICD Codes: G89.29 - Chronic pain Status: Chronic (3) Myasthenia ICD Codes: G70.00 - Myasthenia Status: Chronic Assessment and Plan Orthopedic status stable postoperative day #1 right total hip arthroplasty. We will adjust pain medications. Progress rehabilitation. Discharge planning. Anticipate discharge to SNF in 1-2 days. DVT prophylaxis-Luis Armando Mathews MD Nov 16, 2017 07:33
[2017-11-16 07:55] LABS: HEMATOCRIT 25.6 % (35.0-46.0); HEMOGLOBIN 8.4 GM/DL (11.6-15.3)
[2017-11-16] MEDS ORDERED: PYRIDOSTIGMINE BROMIDE 60 MG TAB PO SCH (08:00)
[2017-11-16] MEDS: DOCUSATE SODIUM 50 MG/SENNA 8.6 MG TAB PO SCH ×2 (08:03→20:01)
[2017-11-16] MEDS: GABAPENTIN 300 MG CAP PO SCH ×3 (08:03→18:43)
[2017-11-16] MEDS: SODIUM CHLORIDE 0.9% FLUSH 10 ML FLUSH IV FLUSH SCH ×2 (08:04→20:02)
[2017-11-16] MEDS ORDERED: predniSONE 10 MG TAB PO ONE ×2 (12:00→15:30)
[2017-11-16] MEDS ORDERED: ALPRAZolam 1 MG TAB PO PRN (15:30)
[2017-11-16 16:35] LABS: AUTOMATED NEUTROPHIL # 19.2 TH/MM3 (1.8-7.7); BASOPHIL # 0.1 TH/MM3 (0-0.2); BASOPHIL % 0.3 % (0.0-2.0); HEMATOCRIT 27.9 % (35.0-46.0); LYMPHOCYTE # 0.9 TH/MM3 (1.0-4.8); MEAN CELL VOLUME 78.7 FL (80.0-100.0); MEAN CORPUSCULAR HEMOGLOBIN 25.3 PG (27.0-34.0); MEAN CORPUSCULAR HGB CONC 32.1 % (32.0-36.0); MEAN PLATELET VOLUME 8.4 FL (7.0-11.0); MONO % 8.9 % (0.0-8.0); NEUT % 86.8 % (16.0-70.0); PLATELET COUNT 409 TH/MM3 (150-450); RED BLOOD COUNT 3.55 MIL/MM3 (4.00-5.30); RED CELL DISTRIBUTION WIDTH 17.6 % (11.6-17.2); WHITE BLOOD COUNT 22.1 TH/MM3 (4.0-11.0)
[2017-11-16] MEDS ORDERED: DIPHENHYDRAMINE HCL 50 MG/ML VIAL Reaction Med IV PUSH PRN (16:45)
[2017-11-16] MEDS ORDERED: ACETAMINOPHEN 325 MG TAB Pre-med PO ONE (16:45)
[2017-11-16] MEDS ORDERED: D5W as prime bag (IVIG as secondary) IV SCH (16:45)
[2017-11-16] MEDS ORDERED: NS 500 ML Pre-hydration IV SCH (16:45)
[2017-11-16] MEDS ORDERED: DIPHENHYDRAMINE HCL 25 MG CAP Pre-med PO ONE (16:45)
[2017-11-16] MEDS ORDERED: EPINEPHRINE HCL (1:1000) 1 MG/ML AMP Reaction Med OTHER PRN (16:45)
[2017-11-16 16:50] LABS: ALBUMIN 2.9 GM/DL (3.4-5.0); AST (GOT) 11 U/L (15-37); BICARBONATE 30.6 MEQ/L (21.0-32.0); BLOOD UREA NITROGEN 4 MG/DL (7-18); CALCIUM 8.9 MG/DL (8.5-10.1); CHLORIDE 100 MEQ/L (98-107); CREATININE 0.55 MG/DL (0.50-1.00); GLOMERULAR FILTRATION RATE 122 ML/MIN (>89); GLUCOSE,RANDOM 122 MG/DL (74-106); SODIUM (NA) 132 MEQ/L (136-145)
[2017-11-16 16:51] LABS: ALT (GPT) 12 U/L (10-53)
[2017-11-16 16:53] LABS: ALKALINE PHOSPHATASE 54 U/L (45-117); TOTAL BILIRUBIN ADULT 0.6 MG/DL (0.2-1.0); TOTAL PROTEIN 7.1 GM/DL (6.4-8.2)
[2017-11-16] MEDS ORDERED: IMMUNE GLOBULIN INJ 30 GM in SYRINGE/BAG 1 EA IV SCH ×2 (17:00→21:00)
--- NOTE | 2017-11-16 17:10 | MB ---
cc: ELLIE SANCHEZ M.D. DATE OF CONSULTATION 11/16/2017 REASON FOR CONSULTATION She is a 42-year-old seen in neurological consultation in regards to myasthenia gravis. HISTORY OF THE PRESENT ILLNESS She was admitted at this time for right hip surgery. She was diagnosed with avascular necrosis and she had hip surgery yesterday. She is observed to have some symptoms of weakness including loss of speech functions, blurriness of vision, generalized weakness involving the upper extremities. Subsequently today she called and asked for a possible course of IVIG. She was in the hospital around October 27 with a 5-day course of IVIG for her myasthenia which helped and she has been on IVIG for over 2 years, receiving such treatment almost monthly. She normally takes Mestinon 2 tablets three times a day and CellCept 2 tablets of 500 mg a day. She admits some problems with Imuran in the past and she has been on prednisone but this may have caused the avascular hip necrosis and the dose was reduced, currently down to 5 mg a day. NEUROLOGICAL EXAMINATION The exam shows the patient to be alert, oriented. Speech is somewhat nasal and some dysphonic and somewhat forced as she seems to be struggling at times. There is some fluctuation on the exam. She has decreased muscle tone in the face and mouth is a semi opened, she flexed the neck on her own but she will have weakness one resistance is applied. She raised the arms and she has difficulty maintaining them elevated. There is some wrist weakness as well. She opposed some mild to moderate resistance. Seems to be stronger with her left leg. The patient underwent right hip surgery and I am not examining her extensively on the right leg. The reflexes were 01-02 plus at the elbows and left knee, 1+ left ankle. Plantar responses flexor. Pupils were relatively small but reactive. She gazed well in all directions. ASSESSMENT Myasthenia flare-up / exacerbation. She had a recent five day course of IVIG. I am going to give her one day treatment today, tonight or tomorrow morning and then we will consider another treatment in 24 - 48 hours after this initial treatment. Otherwise continue her Mestinon and CellCept. She is on prednisone and she also uses anxiety medication. I am concerned about pain medication and anxiety medications in the setting of the myasthenia gravis but the patient seems to be pretty dependent on these. We will need to monitor her clinical course closely. Thank you for asking us to assist in her care. MD DAYAMI Mccallum/KK /4:33 PM /4:42 PM
[2017-11-16] MEDS ORDERED: SODIUM CHLOR 0.9% 1000 ML INJ 1,000 ML IV ONE (17:45)
--- NOTE | 2017-11-16 17:47 | RADRPT ---
EXAM DATE/TIME: 11/16/2017 16:49 [facility] COMPARISON: CHEST SINGLE AP, October 27, 2017, 9:11. INDICATIONS : Fever. MEDICAL HISTORY : myasthenia gravis, migraines, anemia, depression, C-diff SURGICAL HISTORY : thymus removed, left chest port, blood transfusions ENCOUNTER: Subsequent ACUITY: 2 weeks PAIN SCORE: 0/10 LOCATION: Bilateral chest FINDINGS: Left chest port is present in good position and is accessed. The lungs are symmetrically aerated and grossly clear. Cardiomediastinal contours are satisfactory. No significant effusion suspected. CONCLUSION: No acute disease. Kory Black MD on November 16, 2017 at 17:42 Board Certified Radiologist. This report was verified electronically.
--- NOTE | 2017-11-16 18:19 | PD.CONS ---
HPI Service [facility] Consult Requested By Primary Care Physician Non-Staff Diagnoses: History of Present Illness 42-year-old female with a history of myasthenia gravis status post multiple exacerbations requiring IVIG who is currently postoperative day one right hip arthroplasty secondary to avascular necrosis of the femoral head. Patient initially reports feeling all right. Denies any chest pain, shortness breath, nausea, vomiting. She does report feeling tired this morning, and later reports feeling as if she might be getting a myasthenia gravis exacerbation, reporting generalized weakness, diplopia. Patient reports otherwise feeling all right heart admission Review of Systems performed and negative except for HPI and past medical history. Past Family Social History Allergies: Coded Allergies: penicillin G (Unverified Allergy, Severe, Anaphylaxis, 11/15/17) promethazine (Unverified Adverse Reaction, Severe, NAUSEOUS, 11/15/17) Past Medical History Myasthenia gravis Chronic prednisone use 5 mg daily. Past Surgical History Thymectomy Reported Medications Mestinon 100 mg by mouth 3 times a day Midodrine 7.5 mg by mouth 3 times a day. Patient reports discontinuing this medication 2 weeks ago. Oxycodoneacetaminophen 103 25 Citalopram 40 mg by mouth daily. Imitrex 50 mg by mouth as needed for headache Lactinex Prednisone 5 mg by mouth daily CellCept 500 mg by mouth twice a day, which patient says she is held due to surgery. Family History Father secondary to pancreatic cancer. Mother alive and well. Social History Patient denies smoking. Denies drinking alcohol. Denies illicit drugs. Physical Exam Vital Signs Vital Signs Date Time Temp Pulse Resp B/P (MAP) Pulse Ox O2 Delivery O2 Flow Rate FiO2 11/16/17 16:00 100.5 120 18 113/65 (81) 97 11/16/17 14:54 16 11/16/17 14:00 16 11/16/17 12:00 101.7 120 18 118/65 (82) 98 11/16/17 09:08 18 11/16/17 08:24 Nasal Cannula 11/16/17 08:00 98.8 81 18 132/65 (87) 97 11/16/17 06:27 18 11/16/17 04:45 98.1 85 19 119/76 (90) 98 11/16/17 02:32 18 11/15/17 23:00 97.7 73 17 100/62 (75) 95 11/15/17 21:27 18 11/15/17 19:40 96.4 69 17 90/53 (65) 94 11/15/17 19:30 69 18 110/58 (75) 99 Nasal Cannula 2 11/15/17 19:15 64 20 113/59 (77) 96 Nasal Cannula 2 11/15/17 19:00 97.0 66 24 109/66 (80) 98 Nasal Cannula 2 11/15/17 18:46 16 11/15/17 18:45 62 20 108/62 (77) 99 Nasal Cannula 2 11/15/17 18:30 61 24 112/56 (74) 99 Nasal Cannula 2 11/15/17 18:15 62 26 108/55 (72) 95 Nasal Cannula 2 Physical Exam GENERAL: This is a well-nourished, well-developed patient, in no apparent distress. SKIN: No rashes, ecchymoses or lesions. Cool and dry. HEAD: Atraumatic. Normocephalic. No temporal or scalp tenderness. EYES: Pupils equal round and reactive. Extraocular motions intact. No scleral icterus. No injection or drainage. ENT: Nose without bleeding, purulent drainage or septal hematoma. Throat without erythema, tonsillar hypertrophy or exudate. Uvula midline. Airway patent. NECK: Trachea midline. No JVD or lymphadenopathy. Supple, nontender, no meningeal signs. CARDIOVASCULAR: Regular rate and rhythm without murmurs, gallops, or rubs. RESPIRATORY: Clear to auscultation. Breath sounds equal bilaterally. No wheezes , rales, or rhonchi. GASTROINTESTINAL: Abdomen soft, non-tender, nondistended. No hepato-splenomegaly , or palpable masses. No guarding. MUSCULOSKELETAL: Extremities without clubbing, cyanosis, or edema. No joint tenderness, effusion, or edema noted. No calf tenderness. Negative Homans sign bilaterally. NEUROLOGICAL: Awake and alert. Cranial nerves II through XII intact. Motor and sensory grossly within normal limits. in all extremities. She does have lid lag. Laboratory Laboratory Tests Test 11/16/17 04:40 11/16/17 15:45 Hemoglobin 8.4 9.0 Hematocrit 25.6 27.9 White Blood Count 22.1 Red Blood Count 3.55 Mean Corpuscular Volume 78.7 Mean Corpuscular Hemoglobin 25.3 Mean Corpuscular Hemoglobin Concent 32.1 Red Cell Distribution Width 17.6 Platelet Count 409 Mean Platelet Volume 8.4 Neutrophils (%) (Auto) 86.8 Lymphocytes (%) (Auto) 4.0 Monocytes (%) (Auto) 8.9 Eosinophils (%) (Auto) 0.0 Basophils (%) (Auto) 0.3 Neutrophils # (Auto) 19.2 Lymphocytes # (Auto) 0.9 Monocytes # (Auto) 2.0 Eosinophils # (Auto) 0.0 Basophils # (Auto) 0.1 CBC Comment DIFF FINAL Differential Comment Blood Urea Nitrogen 4 Creatinine 0.55 Random Glucose 122 Total Protein 7.1 Albumin 2.9 Calcium Level 8.9 Alkaline Phosphatase 54 Aspartate Amino Transf (AST/SGOT) 11 Alanine Aminotransferase (ALT/SGPT) 12 Total Bilirubin 0.6 Sodium Level 132 Potassium Level 3.8 Chloride Level 100 Carbon Dioxide Level 30.6 Anion Gap 1 Estimat Glomerular Filtration Rate 122 Result Diagram: 11/16/17 1545 11/16/17 1545 Imaging Last Impressions Hip X-Ray 11/15/17 0000 Signed Impressions: Service Date/Time: Wednesday, November 15, 2017 18:02 - CONCLUSION: Good position and alignment of the right hip prosthesis. Delroy James MD Assessment and Plan Assessment and Plan //Postoperative day 1 right total hip arthroplasty performed due to avascular necrosis of the femoral head. -Pain control as per surgical service -Postoperative management as per surgical service. //Postoperative SIRS of fever 1.5, tachycardia 120, leukocytosis 22. = Likely secondary to stress Chest x-ray, urinalysis, ordered = Continue to monitor for signs of infection. /Myasthenia gravis = Patient does have bilateral lid droop, feels she may be in exacerbation. = Consult neurology. Medications as per neurology. //Suspected adrenal insufficiency. -Patient reports being on 5 mg prednisone for many years. -We will double dose to 10 mg daily while in the hospital //Hypernatremia. Sodium 132. Possibly secondary to adrenal insufficiency. Recheck tomorrow. //Previous cocaine positivity on previous UDS. recheck. //Depression. Chronic. Continue home medication. //Anemia. Hemoglobin 9.0. Chronic. Continue to monitor. Discussed Condition With patient, nurse Julio C Alberto MD Nov 16, 2017 18:19
[2017-11-16] MEDS: MYCOPHENOLATE MOFETIL 500 MG TAB PO SCH (20:00)
[2017-11-16] MEDS: MULTIVITAMINS/MINERALS THERAPEUTIC TAB PO SCH (20:01)
[2017-11-16] MEDS: ALPRAZolam 0.5 MG TAB PO PRN (20:01)
[2017-11-16 20:44] LABS: BILIRUBIN, URINE NEG (NEG); BLOOD, URINE TRACE (NEG); GLUCOSE,URINE NEG (NEG); KETONE, URINE NEG (NEG); NITRITE,URINE NEG (NEG); SQUAMOUS EPITHELIAL CELL URINE 2 /hpf (0-5); URINE COLOR LIGHT-YELLOW (YELLW/STRAW); URINE LEUKOCYTE ESTERASE NEG (NEG)
[2017-11-17 00:09] LABS: INTERNATIONAL NORMALIZED RATIO 1.2 RATIO; PROTHROMBIN TIME - PATIENT 11.8 SEC (9.8-11.6)
[2017-11-17 00:32] VITALS: BP 101/58; PULSE 79; RESP 17; TEMP 97.6; O2SAT 95
[2017-11-17] MEDS: oxyCODONE/ACETAMINOPHEN 5 MG/325 MG TAB PO PRN ×6 (02:15→22:35)
[2017-11-17] MEDS: MORPHINE SULFATE 30 MG/30 ML PCA IV SCH ×5 (02:26→22:59)
[2017-11-17 04:15] VITALS: BP 120/56; PULSE 77; RESP 15; TEMP 96.4; O2SAT 100
[2017-11-17] MEDS: PYRIDOSTIGMINE BROMIDE 60 MG TAB PO SCH ×3 (06:05→17:21)
[2017-11-17] MEDS: PCA - TOTAL MG MORPHINE DELIVERED PER SHIFT SCH ×3 (06:13→20:36)
--- NOTE | 2017-11-17 06:15 | PD.ORT.PN ---
Subjective Post Op Day #: 2 Pain Scale: 10 Subjective Remarks The patient is awake and alert. She complains of hip pain. She was out of bed yesterday with PT. She has been evaluated by neurology for a possible flareup of her MG. Objective Vitals Vital Signs Date Time Temp Pulse Resp B/P (MAP) Pulse Ox O2 Delivery O2 Flow Rate FiO2 11/17/17 04:15 96.4 77 15 120/56 (77) 100 11/17/17 02:26 17 11/17/17 00:32 97.6 79 17 101/58 (72) 95 11/17/17 00:32 79 17 101/58 11/17/17 00:07 73 17 97/51 11/16/17 23:02 97.7 78 17 106/52 (70) 95 11/16/17 23:02 78 17 106/52 11/16/17 22:05 70 16 105/75 11/16/17 21:50 97.3 77 16 109/63 (78) 97 11/16/17 21:50 77 16 109/63 11/16/17 21:24 78 15 94/52 11/16/17 20:35 98.3 78 15 94/52 (66) 96 11/16/17 20:07 18 11/16/17 20:05 18 11/16/17 18:10 99.1 93 11/16/17 17:33 94 21 11/16/17 16:00 100.5 120 18 113/65 (81) 97 11/16/17 14:54 16 11/16/17 14:00 16 11/16/17 12:00 101.7 120 18 118/65 (82) 98 11/16/17 09:08 18 11/16/17 08:24 Nasal Cannula 11/16/17 08:00 98.8 81 18 132/65 (87) 97 11/16/17 06:27 18 I/O 11/16/17 11/16/17 11/16/17 11/17/17 11/17/17 11/17/17 07:00 15:00 23:00 07:00 15:00 23:00 Intake Total 1010 ml 650 ml 90.1 ml Output Total 220 ml 110 ml Balance 790 ml 650 ml -19.9 ml Intake Oral 960 ml 600 ml IV Total 50 ml 50 ml 90.1 ml Drainage Total 220 ml 110 ml # Voids 4 7 # Bowel Movements 0 0 Result Diagram: 11/16/17 1545 11/16/17 1545 Other Results Laboratory Tests Test 11/16/17 23:30 Prothromb Time International Ratio 1.2 RATIO Prothrombin Time 11.8 SEC (9.8-11.6) Imaging Last 48 hours Impressions Hip X-Ray 11/15/17 0000 Signed Impressions: Service Date/Time: Wednesday, November 15, 2017 18:02 - CONCLUSION: Good position and alignment of the right hip prosthesis. Delroy James MD Procedures Right total hip arthroplasty 11/15/17 Objective Remarks The right hip dressing is dry and intact.The drain is in place.There is minimal swelling. She has pain with attempts at range of motion.There is no calf swelling. She has a negative Homans sign. Neurologically no focal deficit. Assessment & Plan Ortho Post Op Day #: 2 Problem List: (1) Avascular necrosis of right femoral head ICD Codes: M87.051 - Idiopathic aseptic necrosis of right femur (2) Chronic pain ICD Codes: G89.29 - Chronic pain Status: Chronic (3) Myasthenia ICD Codes: G70.00 - Myasthenia Status: Chronic Assessment and Plan Orthopedic status stable postoperative day #2 right total hip arthroplasty. Progress rehabilitation. Discharge planning. Anticipate discharge to SNF in 1-2 days if cleared medically and by neurology. DVT prophylaxis-Luis Armando Mathews MD Nov 17, 2017 06:15
[2017-11-17] MEDS: ALPRAZolam 0.5 MG TAB PO PRN ×2 (06:45→16:02)
[2017-11-17] MEDS: LACTATED RINGER'S 1000 ML INJ 1,000 ML IV SCH ×2 (07:30→20:00)
[2017-11-17 07:42] VITALS: BP 102/55; PULSE 98; RESP 18; TEMP 97.4; O2SAT 100
[2017-11-17] MEDS: MULTIVITAMINS/MINERALS THERAPEUTIC TAB PO SCH ×2 (08:46→20:33)
[2017-11-17] MEDS: predniSONE 10 MG TAB PO SCH (08:46)
[2017-11-17] MEDS: MYCOPHENOLATE MOFETIL 500 MG TAB PO SCH ×2 (08:46→20:34)
[2017-11-17] MEDS: DOCUSATE SODIUM 50 MG/SENNA 8.6 MG TAB PO SCH ×2 (08:46→20:34)
[2017-11-17] MEDS: CITALOPRAM HYDROBROMIDE 40 MG TAB PO SCH (08:46)
[2017-11-17] MEDS: GABAPENTIN 300 MG CAP PO SCH ×3 (08:46→17:09)
[2017-11-17] MEDS: SODIUM CHLORIDE 0.9% FLUSH 10 ML FLUSH IV FLUSH SCH ×2 (08:47→20:33)
--- NOTE | 2017-11-17 08:47 | HHI.PR ---
Review/Management Daily Summary 11/17 she is much better though anxious and describes she had much difficulty this am speech is normal as she was very articulate talking on the phone and using limbs well facial expression better she feels she needs another ivig dose today to go to rehab tomorrow probably manipulative behavior along with MG, will agree to give her another IVIG tx today Subjective Subjective Comments No acute events reported No headache Active Medications Current Medications Medications (Trade) Dose Ordered Sig/Gómez Route Start Time Stop Time Status Last Admin (Chlorhexidine 2% Cloth) 3 pack EXERCISER HORSE PRN TOPICAL 11/15/17 12:15 11/18/17 12:14 11/15/17 12:40 Lactated Ringer's 1,000 ml @ 80 mls/hr [id number] IV 11/15/17 18:00 11/16/17 13:01 (NS Flush) 2 ml UNSCH PRN IV FLUSH 11/15/17 17:45 (NS Flush) 2 ml BID IV FLUSH 11/15/17 21:00 11/16/17 20:02 Miscellaneous Information UNSCH PRN XX 11/15/17 17:45 (Morphine Inj) 4 mg Q3H PRN IV PUSH 11/15/17 18:45 (Percocet 5-325 Mg) 1 tab Q4H PRN PO 11/15/17 17:45 11/15/17 23:18 (Percocet 5-325 Mg) 2 tab Q4H PRN PO 11/15/17 17:45 11/17/17 06:06 (Tylenol) 650 mg Q6H PRN PO 11/15/17 17:45 (Theragran M Tab) 1 tab BID PO 11/16/17 21:00 01/15/18 20:59 11/16/17 20:01 (Zofran Inj) 4 mg Q6H PRN IVP 11/15/17 17:45 11/16/17 07:45 (Mag-Al Plus Susp Liq) 30 ml Q6H PRN PO 11/15/17 17:45 (Restoril) 15 mg HS PRN PO 11/15/17 17:45 (Bonita-Colace) 1 tab BID PO 11/15/17 21:00 (Milk Of Magnesia Liq) 30 ml Q12H PRN PO 11/15/17 17:45 (Senokot) 17.2 mg Q12H PRN PO 11/15/17 17:45 (Dulcolax Supp) 10 mg DAILY PRN RECTAL 11/15/17 17:45 (Lactulose Liq) 30 ml DAILY PRN PO 11/15/17 17:45 (Narcan Inj) 0.4 mg UNSCH PRN IV PUSH 11/15/17 17:45 (Benadryl) 25 mg Q6H PRN PO 11/15/17 17:45 [employer] Dosage Infused (Pha) 1 Q8HR .XX 11/15/17 22:00 11/17/17 06:13 (Mestinon) 120 mg TIDAC PO 11/15/17 21:45 11/17/17 06:05 (Morphine 1 Mg/ ml [employer]) 30 mg UNSCH IV 11/16/17 07:45 11/17/17 06:49 (Neurontin) 300 mg TID PO 11/16/17 09:00 11/16/17 18:43 (Deltasone) 10 mg DAILY PO 11/17/17 09:00 Dextrose 500 ml @ 30 mls/hr Q24H IV 11/16/17 16:45 11/17/17 09:24 11/16/17 21:21 (Benadryl Inj) 50 mg UNSCH PRN IV PUSH 11/16/17 16:45 11/17/17 16:44 (Adrenalin (1:1000) Inj) 0.3 mg Q10M PRN OTHER 11/16/17 16:45 11/17/17 16:44 (Xanax) 0.5 mg Q8H PRN PO 11/16/17 19:30 11/17/17 06:45 (Cellcept) 500 mg BID PO 11/16/17 21:00 11/16/17 20:00 (CeleXA) 40 mg DAILY PO 11/17/17 09:00 Immune Globulin 30 gm/Syringe / Bag 300 ml @ 15 mls/hr Q24H IV 11/16/17 21:00 11/17/17 16:59 11/16/17 21:24 Allergies Allergies Coded Allergies penicillin G (Unverified Allergy, Severe, Anaphylaxis, 11/15/17) promethazine (Unverified Adverse Reaction, Severe, NAUSEOUS, 11/15/17) Review of Systems All other ROS: ROS reviewed as documented in chart Exam I&O / VS Vital Signs Date Time Temp Pulse Resp B/P (MAP) Pulse Ox O2 Delivery O2 Flow Rate FiO2 11/17/17 07:42 97.4 98 18 102/55 (71) 100 11/17/17 06:49 17 11/17/17 06:13 16 11/17/17 04:15 96.4 77 15 120/56 (77) 100 11/17/17 02:26 17 11/17/17 00:32 97.6 79 17 101/58 (72) 95 11/17/17 00:32 79 17 101/58 11/17/17 00:07 73 17 97/51 11/16/17 23:02 97.7 78 17 106/52 (70) 95 11/16/17 23:02 78 17 106/52 11/16/17 22:05 70 16 105/75 11/16/17 21:50 97.3 77 16 109/63 (78) 97 11/16/17 21:50 77 16 109/63 11/16/17 21:24 78 15 94/52 11/16/17 20:35 98.3 78 15 94/52 (66) 96 11/16/17 20:07 18 11/16/17 20:05 18 11/16/17 18:10 99.1 93 11/16/17 17:33 94 21 11/16/17 16:00 100.5 120 18 113/65 (81) 97 11/16/17 14:54 16 11/16/17 14:00 16 11/16/17 12:00 101.7 120 18 118/65 (82) 98 11/16/17 09:08 18 General: Alert and Oriented, No acute distress Eye: PERRL, EOMI, Normal conjuctiva Respiratory: Non-labored respirations Cardiology: Normal rate Neurologic: Alert, Oriented, Normal motor, No focal defects, CN II-XII intact, Normal DTR's Psychiatric: Cooperative, Appropriate mood & affect, Normal judgement Objective Micro and Labs Laboratory Tests Test 11/16/17 15:45 11/16/17 18:45 11/16/17 23:30 White Blood Count 22.1 Red Blood Count 3.55 Hemoglobin 9.0 Hematocrit 27.9 Mean Corpuscular Volume 78.7 Mean Corpuscular Hemoglobin 25.3 Mean Corpuscular Hemoglobin Concent 32.1 Red Cell Distribution Width 17.6 Platelet Count 409 Mean Platelet Volume 8.4 Neutrophils (%) (Auto) 86.8 Lymphocytes (%) (Auto) 4.0 Monocytes (%) (Auto) 8.9 Eosinophils (%) (Auto) 0.0 Basophils (%) (Auto) 0.3 Neutrophils # (Auto) 19.2 Lymphocytes # (Auto) 0.9 Monocytes # (Auto) 2.0 Eosinophils # (Auto) 0.0 Basophils # (Auto) 0.1 CBC Comment DIFF FINAL Differential Comment Blood Urea Nitrogen 4 Creatinine 0.55 Random Glucose 122 Total Protein 7.1 Albumin 2.9 Calcium Level 8.9 Alkaline Phosphatase 54 Aspartate Amino Transf (AST/SGOT) 11 Alanine Aminotransferase (ALT/SGPT) 12 Total Bilirubin 0.6 0.3 Sodium Level 132 Potassium Level 3.8 Chloride Level 100 Carbon Dioxide Level 30.6 Anion Gap 1 Estimat Glomerular Filtration Rate 122 Urine Color LIGHT-YELLOW Urine Turbidity CLEAR Urine pH 7.0 Urine Specific [place] 1.007 Urine Protein NEG Urine Glucose (UA) NEG Urine Ketones NEG Urine Occult Blood TRACE Urine Nitrite NEG Urine Bilirubin NEG Urine Urobilinogen LESS THAN 2.0 Urine Leukocyte Esterase NEG Urine RBC LESS THAN 1 Urine WBC LESS THAN 1 Urine Squamous Epithelial Cells 2 Microscopic Urinalysis Comment CULT NOT INDICATED Urine Opiates Screen POS Urine Barbiturates Screen NEG Urine Amphetamines Screen NEG Urine Benzodiazepines Screen NEG Urine Cocaine Screen NEG Urine Cannabinoids Screen POS Prothrombin Time 11.8 Prothromb Time International Ratio 1.2 Activated Partial Thromboplast Time 30.7 Lactic Acid Level 1.8 Date/Time Source Procedure Growth Status 11/16/17 23:30 Nasal Washing Influenza Types A,B Antigen (MANUELIT[place]) - Final NEGATIVE FOR FLU A AND B ANTIGEN.... Complete Temi Zhao MD Nov 17, 2017 08:47
[2017-11-17 09:24] LABS: HEMATOCRIT 23.7 % (35.0-46.0); HEMOGLOBIN 7.7 GM/DL (11.6-15.3)
[2017-11-17] MEDS ORDERED: DIPHENHYDRAMINE HCL 25 MG CAP Pre-med PO ONE (11:45)
[2017-11-17] MEDS ORDERED: DIPHENHYDRAMINE HCL 50 MG/ML VIAL Reaction Med IV PUSH PRN (11:45)
[2017-11-17] MEDS ORDERED: EPINEPHRINE HCL (1:1000) 1 MG/ML AMP Reaction Med OTHER PRN (11:45)
[2017-11-17] MEDS ORDERED: IMMUNE GLOBULIN INJ 30 GM in SYRINGE/BAG 1 EA IV ONE ×2 (11:45→19:00)
[2017-11-17] MEDS ORDERED: ACETAMINOPHEN 325 MG TAB Pre-med PO ONE (11:45)
[2017-11-17] MEDS ORDERED: NS 500 ML Pre-hydration IV ONE (11:45)
[2017-11-17] MEDS ORDERED: D5W as prime bag (IVIG as secondary) IV ONE (11:45)
[2017-11-17 12:00] VITALS: BP 101/50; PULSE 85; RESP 18; TEMP 96.9; O2SAT 98
[2017-11-17 12:31] LABS: ALBUMIN 2.6 GM/DL (3.4-5.0); ALT (GPT) 10 U/L (10-53); AST (GOT) 12 U/L (15-37); BICARBONATE 31.2 MEQ/L (21.0-32.0); BLOOD UREA NITROGEN 6 MG/DL (7-18); CALCIUM 8.7 MG/DL (8.5-10.1); CHLORIDE 104 MEQ/L (98-107); CREATININE 0.44 MG/DL (0.50-1.00); GLOMERULAR FILTRATION RATE 158 ML/MIN (>89); GLUCOSE,RANDOM 116 MG/DL (74-106); SODIUM (NA) 136 MEQ/L (136-145)
[2017-11-17 12:34] LABS: ALKALINE PHOSPHATASE 49 U/L (45-117); TOTAL BILIRUBIN ADULT 0.3 MG/DL (0.2-1.0); TOTAL PROTEIN 7.6 GM/DL (6.4-8.2)
[2017-11-17 16:00] VITALS: BP 109/57; PULSE 82; RESP 18; TEMP 97.2; O2SAT 100
--- NOTE | 2017-11-17 16:44 | HHI.PR ---
Subjective Remarks Patient seen this morning around 11 AM. Sitting up in chair. Says she is feeling generally better than yesterday. Weakness has improved. She does report a slight headache, would like to restart Imitrex as needed for chronic migraines. Objective Vital Signs Date Time Temp Pulse Resp B/P (MAP) Pulse Ox O2 Delivery O2 Flow Rate FiO2 11/17/17 12:40 16 11/17/17 12:00 96.9 85 18 101/50 (67) 98 11/17/17 07:42 97.4 98 18 102/55 (71) 100 11/17/17 06:49 17 11/17/17 06:13 16 11/17/17 04:15 96.4 77 15 120/56 (77) 100 11/17/17 02:26 17 11/17/17 00:32 97.6 79 17 101/58 (72) 95 11/17/17 00:32 79 17 101/58 11/17/17 00:07 73 17 97/51 11/16/17 23:02 97.7 78 17 106/52 (70) 95 11/16/17 23:02 78 17 106/52 11/16/17 22:05 70 16 105/75 11/16/17 21:50 97.3 77 16 109/63 (78) 97 11/16/17 21:50 77 16 109/63 11/16/17 21:24 78 15 94/52 11/16/17 20:35 98.3 78 15 94/52 (66) 96 11/16/17 20:07 18 11/16/17 20:05 18 11/16/17 18:10 99.1 93 11/16/17 17:33 94 21 I/O 11/16/17 11/16/17 11/16/17 11/17/17 11/17/17 11/17/17 07:00 15:00 23:00 07:00 15:00 23:00 Intake Total 1010 ml 650 ml 1590.1 ml 2000 ml Output Total 220 ml 110 ml 60 ml Balance 790 ml 650 ml 1480.1 ml 1940 ml Intake Oral 960 ml 600 ml 1500 ml 2000 ml IV Total 50 ml 50 ml 90.1 ml Drainage Total 220 ml 110 ml 60 ml # Voids 4 7 6 7 # Bowel Movements 0 0 0 0 Result Diagram: 11/17/17 0855 11/17/17 1137 Objective Remarks GENERAL: Sitting up in chair. Appears comfortable. SKIN: Warm and dry. HEAD: Normocephalic. EYES: No scleral icterus. No injection or drainage. NECK: Supple, trachea midline. No JVD. CARDIOVASCULAR: Regular rate and rhythm without murmurs, gallops, or rubs. RESPIRATORY: Breath sounds equal bilaterally. No accessory muscle use. GASTROINTESTINAL: Abdomen soft, non-tender, nondistended. MUSCULOSKELETAL: No cyanosis, or edema. BACK: Nontender without obvious deformity. No CVA tenderness. A/P Assessment and Plan //Postoperative day 2 right total hip arthroplasty performed due to avascular necrosis of the femoral head. -Pain control as per surgical service -Postoperative management as per surgical service. //Postoperative anemia. Hemoglobin 7.7. Likely dilutional. No signs of bleeding. Recheck tomorrow //Postoperative SIRS of fever 1.5, tachycardia 120, leukocytosis 22. = Likely secondary to stress Chest x-ray, urinalysis, ordered = Continue to monitor for signs of infection. = 2. Resolved. No further fevers. Chest x-ray remarkable, urinalysis appears noninfectious. /Myasthenia gravis = Patient does have bilateral lid droop, feels she may be in exacerbation. = Consult neurology. Medications as per neurology. = Neurology giving IVIG. Appreciate assistance. //Suspected adrenal insufficiency. -Patient reports being on 5 mg prednisone for many years. -We will double dose to 10 mg daily while in the hospital = Continue prednisone 10 mg daily. //Hyponatremia. Sodium 132. Possibly secondary to adrenal insufficiency. Recheck tomorrow. = 11/17. Sodium improved to 136. //Previous cocaine positivity on previous UDS. recheck. = 11/17. Recheck negative for cocaine, positive for marijuana = Cessation counseling provided. Only recommend avoiding cocaine due to patient 's myasthenia gravis. //Tonic migraines. Continue Imitrex as needed. //Depression. Chronic. Continue home medication. //Anemia. Hemoglobin 9.0. Chronic. Continue to monitor. Discharge Planning I expect she can go to rehabilitation tomorrow if cleared by neurology Julio C Alberto MD Nov 17, 2017 16:44
[2017-11-17 20:00] VITALS: BP 110/67; PULSE 80; RESP 15; TEMP 96.9; O2SAT 100
[2017-11-17] MEDS: SUMAtriptan SUCCINATE 50 MG TAB PO PRN (20:34)
[2017-11-18] VITALS: BP 110/57; PULSE 78; RESP 17; TEMP 97.7; O2SAT 96
[2017-11-18] MEDS: ALPRAZolam 0.5 MG TAB PO PRN ×3 (00:15→16:42)
[2017-11-18] MEDS: oxyCODONE/ACETAMINOPHEN 5 MG/325 MG TAB PO PRN ×6 (03:15→23:37)
[2017-11-18] MEDS: MORPHINE SULFATE 30 MG/30 ML PCA IV SCH ×4 (03:40→18:30)
[2017-11-18] MEDS: PCA - TOTAL MG MORPHINE DELIVERED PER SHIFT SCH ×3 (06:00→22:00)
[2017-11-18] MEDS: PYRIDOSTIGMINE BROMIDE 60 MG TAB PO SCH ×3 (06:15→16:43)
[2017-11-18 06:34] LABS: AUTOMATED NEUTROPHIL # 8.3 TH/MM3 (1.8-7.7); BASOPHIL # 0.1 TH/MM3 (0-0.2); BASOPHIL % 0.5 % (0.0-2.0); EOSINOPHIL # 0.1 TH/MM3 (0-0.4); EOSINOPHIL % 1.2 % (0.0-4.0); HEMATOCRIT 26.3 % (35.0-46.0); HEMOGLOBIN 8.4 GM/DL (11.6-15.3); LYMPH % 19.5 % (9.0-44.0); LYMPHOCYTE # 2.3 TH/MM3 (1.0-4.8); MEAN CORPUSCULAR HEMOGLOBIN 25.6 PG (27.0-34.0); MEAN PLATELET VOLUME 8.8 FL (7.0-11.0); MONO % 8.9 % (0.0-8.0); MONOCYTE # 1.1 TH/MM3 (0-0.9); NEUT % 69.9 % (16.0-70.0); PLATELET COUNT 341 TH/MM3 (150-450); RED BLOOD COUNT 3.28 MIL/MM3 (4.00-5.30); RED CELL DISTRIBUTION WIDTH 17.3 % (11.6-17.2); WHITE BLOOD COUNT 11.8 TH/MM3 (4.0-11.0)
[2017-11-18 07:01] LABS: ALBUMIN 2.6 GM/DL (3.4-5.0); BICARBONATE 32.2 MEQ/L (21.0-32.0); CALCIUM 8.8 MG/DL (8.5-10.1); CREATININE 0.53 MG/DL (0.50-1.00); MAGNESIUM 1.8 MG/DL (1.5-2.5); PHOSPHORUS 2.9 MG/DL (2.5-4.9)
[2017-11-18 08:00] VITALS: BP 114/60; PULSE 81; RESP 18; TEMP 97.4; O2SAT 100
--- NOTE | 2017-11-18 08:06 | PD.ORT.PN ---
Subjective Post Op Day #: 3 Subjective Remarks Awake and alert, sitting upright in bed reading a book. Stating pain is much better controlled. Does not feel ready for d/c today. Most likely tomorrow with [facility]. Admits pushing with a walker can be difficult due to MG. Objective Vitals Vital Signs Date Time Temp Pulse Resp B/P (MAP) Pulse Ox O2 Delivery O2 Flow Rate FiO2 11/18/17 00:00 97.7 78 17 110/57 (74) 96 11/17/17 23:30 70 17 110/57 11/17/17 22:30 77 17 120/56 11/17/17 21:30 86 15 103/50 11/17/17 20:38 98 19 129/72 11/17/17 20:22 87 17 115/60 11/17/17 20:00 96.9 80 15 110/67 (81) 100 11/17/17 18:09 18 11/17/17 18:04 18 11/17/17 16:00 97.2 82 18 109/57 (74) 100 11/17/17 14:00 18 11/17/17 12:40 16 11/17/17 12:00 96.9 85 18 101/50 (67) 98 I/O 11/17/17 11/17/17 11/17/17 11/18/17 11/18/17 11/18/17 07:00 15:00 23:00 07:00 15:00 23:00 Intake Total 2000 ml 1200 ml 1560.1 ml 1125 ml Output Total 60 ml 30 ml Balance 1940 ml 1200 ml 1530.1 ml 1125 ml Intake Oral 2000 ml 1200 ml 1200 ml 800 ml IV Total 360.1 ml 325 ml Drainage Total 60 ml 30 ml # Voids 7 7 5 5 # Bowel Movements 0 0 Result Diagram: 11/18/17 0513 11/18/17 0513 Imaging Last 48 hours Impressions Hip X-Ray 11/15/17 0000 Signed Impressions: Service Date/Time: Wednesday, November 15, 2017 18:02 - CONCLUSION: Good position and alignment of the right hip prosthesis. Delroy James MD Procedures Right total hip arthroplasty 11/15/17 Objective Remarks The right hip dressing is dry and intact.There is minimal swelling. She has mild pain with attempts at range of motion. Freely able to move knee and ankle. There is no calf swelling. She has a negative Homans sign. Neurologically no focal deficit. Assessment & Plan Ortho Post Op Day #: 3 Problem List: (1) Avascular necrosis of right femoral head ICD Codes: M87.051 - Idiopathic aseptic necrosis of right femur (2) Chronic pain ICD Codes: G89.29 - Chronic pain Status: Chronic (3) Myasthenia ICD Codes: G70.00 - Myasthenia Status: Chronic Assessment and Plan Orthopedic status stable postoperative day #3 right total hip arthroplasty. Progress rehabilitation, w/b as tolerated. No change dressings over incision site. Ok to change drain site dressing daily. May consider platform walker for RUE d/t weakness from MG if therapy thinks appropriate. Transition to oral pain meds. DVT prophylaxis-ASA Discharge planning - most likely d/c tomorrow to [facility] once cleared by neurology. Marilou Harmon Nov 18, 2017 8:06 am
--- NOTE | 2017-11-18 08:36 | HHI.PR ---
Review/Management Daily Summary 11/17 she is much better though anxious and describes she had much difficulty this am speech is normal as she was very articulate talking on the phone and using limbs well facial expression better she feels she needs another ivig dose today to go to rehab tomorrow probably manipulative behavior along with MG, will agree to give her another IVIG tx today 11/18 about the same as yesterday she strongly feels she needs another dose of IVIG in order to go to rehab so i am doing a final dose today, reduce to 25 grams and go to rehab tomorrow on po mestinon and cellcept as before Subjective Subjective Comments No acute events reported No headache No chest pain No dyspnea Active Medications Current Medications Medications (Trade) Dose Ordered Sig/Gómez Route Start Time Stop Time Status Last Admin (Chlorhexidine 2% Cloth) 3 pack SUB MASTER PRN TOPICAL 11/15/17 12:15 11/18/17 12:14 11/15/17 12:40 Lactated Ringer's 1,000 ml @ 80 mls/hr [id number] IV 11/15/17 18:00 11/16/17 13:01 (NS Flush) 2 ml UNSCH PRN IV FLUSH 11/15/17 17:45 (NS Flush) 2 ml BID IV FLUSH 11/15/17 21:00 11/17/17 20:33 Miscellaneous Information UNSCH PRN XX 11/15/17 17:45 (Morphine Inj) 4 mg Q3H PRN IV PUSH 11/15/17 18:45 (Percocet 5-325 Mg) 1 tab Q4H PRN PO 11/15/17 17:45 11/15/17 23:18 (Percocet 5-325 Mg) 2 tab Q4H PRN PO 11/15/17 17:45 11/18/17 07:12 (Tylenol) 650 mg Q6H PRN PO 11/15/17 17:45 (Theragran M Tab) 1 tab BID PO 11/16/17 21:00 01/15/18 20:59 11/17/17 20:33 (Zofran Inj) 4 mg Q6H PRN IVP 11/15/17 17:45 11/16/17 07:45 (Mag-Al Plus Susp Liq) 30 ml Q6H PRN PO 11/15/17 17:45 (Restoril) 15 mg HS PRN PO 11/15/17 17:45 (Bonita-Colace) 1 tab BID PO 11/15/17 21:00 11/17/17 20:34 (Milk Of Magnesia Liq) 30 ml Q12H PRN PO 11/15/17 17:45 (Senokot) 17.2 mg Q12H PRN PO 11/15/17 17:45 (Dulcolax Supp) 10 mg DAILY PRN RECTAL 11/15/17 17:45 (Lactulose Liq) 30 ml DAILY PRN PO 11/15/17 17:45 (Narcan Inj) 0.4 mg UNSCH PRN IV PUSH 11/15/17 17:45 (Benadryl) 25 mg Q6H PRN PO 11/15/17 17:45 TOOL OR DIE DRAWING CHECKER Dosage Infused (Pha) 1 Q8HR .XX 11/15/17 22:00 11/18/17 06:00 (Mestinon) 120 mg TIDAC PO 11/15/17 21:45 11/18/17 06:15 (Morphine 1 Mg/ ml TOOL OR DIE DRAWING CHECKER) 30 mg UNSCH IV 11/16/17 07:45 11/18/17 03:40 (Neurontin) 300 mg TID PO 11/16/17 09:00 11/17/17 17:09 (Deltasone) 10 mg DAILY PO 11/17/17 09:00 11/17/17 08:46 (Xanax) 0.5 mg Q8H PRN PO 11/16/17 19:30 11/18/17 00:15 (Cellcept) 500 mg BID PO 11/16/17 21:00 11/17/17 20:34 (CeleXA) 40 mg DAILY PO 11/17/17 09:00 11/17/17 08:46 Immune Globulin 30 gm/Syringe / Bag 300 ml @ 15 mls/hr ONCE ONCE IV 11/17/17 19:00 11/18/17 14:59 11/17/17 20:22 (Imitrex) 50 mg DAILY PRN PO 11/17/17 16:30 11/18/17 20:00 11/17/17 20:34 Allergies Allergies Coded Allergies penicillin G (Unverified Allergy, Severe, Anaphylaxis, 11/15/17) promethazine (Unverified Adverse Reaction, Severe, NAUSEOUS, 11/15/17) Review of Systems All other ROS: ROS reviewed as documented in chart Exam I&O / VS Vital Signs Date Time Temp Pulse Resp B/P (MAP) Pulse Ox O2 Delivery O2 Flow Rate FiO2 11/18/17 00:00 97.7 78 17 110/57 (74) 96 11/17/17 23:30 70 17 110/57 11/17/17 22:30 77 17 120/56 11/17/17 21:30 86 15 103/50 11/17/17 20:38 98 19 129/72 11/17/17 20:22 87 17 115/60 11/17/17 20:00 96.9 80 15 110/67 (81) 100 11/17/17 18:09 18 11/17/17 18:04 18 11/17/17 16:00 97.2 82 18 109/57 (74) 100 11/17/17 14:00 18 11/17/17 12:40 16 11/17/17 12:00 96.9 85 18 101/50 (67) 98 General: Alert and Oriented, No acute distress Eye: PERRL, EOMI, Normal conjuctiva Respiratory: Non-labored respirations Cardiology: Normal rate Neurologic: Alert, Oriented, Normal motor, No focal defects, CN II-XII intact, Normal DTR's Psychiatric: Cooperative, Appropriate mood & affect, Normal judgement Objective Micro and Labs Laboratory Tests Test 11/17/17 08:55 11/17/17 11:37 11/18/17 05:13 Hemoglobin 7.7 8.4 Hematocrit 23.7 26.3 Blood Urea Nitrogen 6 3 Creatinine 0.44 0.53 Random Glucose 116 82 Total Protein 7.6 Albumin 2.6 2.6 Calcium Level 8.7 8.8 Alkaline Phosphatase 49 Aspartate Amino Transf (AST/SGOT) 12 Alanine Aminotransferase (ALT/SGPT) 10 Total Bilirubin 0.3 Sodium Level 136 137 Potassium Level 4.3 3.4 Chloride Level 104 103 Carbon Dioxide Level 31.2 32.2 Anion Gap 1 2 Estimat Glomerular Filtration Rate 158 127 White Blood Count 11.8 Red Blood Count 3.28 Mean Corpuscular Volume 80.0 Mean Corpuscular Hemoglobin 25.6 Mean Corpuscular Hemoglobin Concent 32.0 Red Cell Distribution Width 17.3 Platelet Count 341 Mean Platelet Volume 8.8 Neutrophils (%) (Auto) 69.9 Lymphocytes (%) (Auto) 19.5 Monocytes (%) (Auto) 8.9 Eosinophils (%) (Auto) 1.2 Basophils (%) (Auto) 0.5 Neutrophils # (Auto) 8.3 Lymphocytes # (Auto) 2.3 Monocytes # (Auto) 1.1 Eosinophils # (Auto) 0.1 Basophils # (Auto) 0.1 CBC Comment DIFF FINAL Differential Comment Phosphorus Level 2.9 Magnesium Level 1.8 Date/Time Source Procedure Growth Status 11/16/17 23:30 Nasal Washing Influenza Types A,B Antigen (MANUELITO) - Final NEGATIVE FOR FLU A AND B ANTIGEN.... Complete Temi Zhao MD Nov 18, 2017 08:36
[2017-11-18] MEDS: GABAPENTIN 300 MG CAP PO SCH ×3 (08:51→16:39)
[2017-11-18] MEDS: CITALOPRAM HYDROBROMIDE 40 MG TAB PO SCH (08:51)
[2017-11-18] MEDS: predniSONE 10 MG TAB PO SCH (08:52)
[2017-11-18] MEDS: DOCUSATE SODIUM 50 MG/SENNA 8.6 MG TAB PO SCH ×2 (08:52→19:34)
[2017-11-18] MEDS: MULTIVITAMINS/MINERALS THERAPEUTIC TAB PO SCH ×2 (08:52→19:34)
[2017-11-18] MEDS: MYCOPHENOLATE MOFETIL 500 MG TAB PO SCH ×2 (08:52→19:34)
[2017-11-18] MEDS: SODIUM CHLORIDE 0.9% FLUSH 10 ML FLUSH IV FLUSH SCH ×2 (08:54→19:34)
[2017-11-18] MEDS: LACTATED RINGER'S 1000 ML INJ 1,000 ML IV SCH ×2 (08:57→21:00)
[2017-11-18 12:00] VITALS: BP 106/57; PULSE 77; RESP 18; TEMP 97.8; O2SAT 97
--- NOTE | 2017-11-18 13:02 | HHI.PR ---
Subjective Remarks Patient says she is feeling all right. Reports weakness is improving. Denies any chest pain or shortness of breath. Patient reports slight headache has improved. Discussed with nursing Objective Vital Signs Date Time Temp Pulse Resp B/P (MAP) Pulse Ox O2 Delivery O2 Flow Rate FiO2 11/18/17 12:00 97.8 77 18 106/57 (73) 97 11/18/17 09:44 21 11/18/17 09:22 17 11/18/17 08:00 97.4 81 18 114/60 (78) 100 11/18/17 00:00 97.7 78 17 110/57 (74) 96 11/17/17 23:30 70 17 110/57 11/17/17 22:30 77 17 120/56 11/17/17 21:30 86 15 103/50 11/17/17 20:38 98 19 129/72 11/17/17 20:22 87 17 115/60 11/17/17 20:00 96.9 80 15 110/67 (81) 100 11/17/17 18:09 18 11/17/17 18:04 18 11/17/17 16:00 97.2 82 18 109/57 (74) 100 11/17/17 14:00 18 I/O 11/17/17 11/17/17 11/17/17 11/18/17 11/18/17 11/18/17 07:00 15:00 23:00 07:00 15:00 23:00 Intake Total 2000 ml 1200 ml 1560.1 ml 1125 ml Output Total 60 ml 30 ml Balance 1940 ml 1200 ml 1530.1 ml 1125 ml Intake Oral 2000 ml 1200 ml 1200 ml 800 ml IV Total 360.1 ml 325 ml Drainage Total 60 ml 30 ml # Voids 7 7 5 5 # Bowel Movements 0 0 Result Diagram: 11/18/17 0513 11/18/17 05 Objective Remarks GENERAL: Sitting up in chair. Appears comfortable. aaox3 SKIN: Warm and dry. HEAD: Normocephalic. EYES: No scleral icterus. No injection or drainage. NECK: Supple, trachea midline. No JVD. CARDIOVASCULAR: Regular rate and rhythm without murmurs, gallops, or rubs. RESPIRATORY: Breath sounds equal bilaterally. No accessory muscle use. GASTROINTESTINAL: Abdomen soft, non-tender, nondistended. MUSCULOSKELETAL: No cyanosis, or edema. BACK: Nontender without obvious deformity. No CVA tenderness. A/P Assessment and Plan //Postoperative day 3 right total hip arthroplasty performed due to avascular necrosis of the femoral head. -Pain control as per surgical service -Postoperative management as per surgical service. //Postoperative anemia. Hemoglobin 7.7. Likely dilutional. No signs of bleeding. Recheck tomorrow = Hemoglobin 8.4. Improved. //Postoperative SIRS of fever 1.5, tachycardia 120, leukocytosis 22. = Likely secondary to stress Chest x-ray, urinalysis, ordered = Continue to monitor for signs of infection. = 2. Resolved. No further fevers. Chest x-ray remarkable, urinalysis appears noninfectious. = 11/18. Leukocytosis 11. Much improved. Secondary to stress /Myasthenia gravis = Patient does have bilateral lid droop, feels she may be in exacerbation. = Consult neurology. Medications as per neurology. = Neurology giving IVIG. Appreciate assistance. //Suspected adrenal insufficiency. -Patient reports being on 5 mg prednisone for many years. -We will double dose to 10 mg daily while in the hospital = Continue prednisone 10 mg daily. = Plan to taper prednisone back to chronic dose of 5 mg daily //Hyponatremia. Sodium 132. Possibly secondary to adrenal insufficiency. Recheck tomorrow. = 11/18. Sodium improved to 137. //Previous cocaine positivity on previous UDS. recheck. = 11/17. Recheck negative for cocaine, positive for marijuana = Cessation counseling provided. =strongly recommend avoiding cocaine due to patient's myasthenia gravis. //Hypokalemia. Potassium 3.4. Mild. Replaced. Can continue to monitor intermittently //Chronic migraines. Continue Imitrex as needed. //Depression. Chronic. Continue home medication. //Anemia. Hemoglobin 9.0. Chronic. Continue to monitor. Discharge Planning I expect she can go to rehabilitation when cleared by neurology Julio C Alberto MD Nov 18, 2017 13:02
[2017-11-18] MEDS ORDERED: POTASSIUM CHLORIDE 20 MEQ CONTROLLED RELEASE TAB PO ONE (13:15)
[2017-11-18 16:00] VITALS: BP 117/58; PULSE 76; RESP 18; TEMP 97.8; O2SAT 100
[2017-11-18] MEDS: SUMAtriptan SUCCINATE 50 MG TAB PO PRN (18:05)
[2017-11-18] MEDS ORDERED: SODIUM CHLORID 0.9% 500 ML INJ 500 ML IV ONE (21:00)
[2017-11-18] MEDS ORDERED: ACETAMINOPHEN 325 MG TAB PO ONE (21:00)
[2017-11-18] MEDS ORDERED: diphenhydrAMINE HCL 25 MG CAP PO ONE (21:00)
[2017-11-18] MEDS ORDERED: D5W as prime bag (IVIG as secondary) IV ONE (22:00)
[2017-11-18] MEDS ORDERED: IMMUNE GLOBULIN IV ONE (22:00)
[2017-11-19] VITALS: BP 115/66; PULSE 83; RESP 14; TEMP 97.7; O2SAT 97
[2017-11-19] MEDS: PCA - TOTAL MG MORPHINE DELIVERED PER SHIFT SCH ×2 (03:32→12:24)
[2017-11-19] MEDS: oxyCODONE/ACETAMINOPHEN 5 MG/325 MG TAB PO PRN ×3 (03:33→11:47)
[2017-11-19] MEDS: MORPHINE SULFATE 30 MG/30 ML PCA IV SCH (03:36)
[2017-11-19 04:00] VITALS: BP 125/68; PULSE 86; RESP 15; TEMP 96.4; O2SAT 100
[2017-11-19] MEDS: ALPRAZolam 0.5 MG TAB PO PRN ×2 (04:17→12:10)
[2017-11-19 06:57] LABS: AUTOMATED NEUTROPHIL # 6.1 TH/MM3 (1.8-7.7); BASOPHIL # 0.1 TH/MM3 (0-0.2); BASOPHIL % 0.7 % (0.0-2.0); EOSINOPHIL # 0.2 TH/MM3 (0-0.4); EOSINOPHIL % 2.1 % (0.0-4.0); LYMPH % 21.7 % (9.0-44.0); MEAN CELL VOLUME 78.9 FL (80.0-100.0); MEAN PLATELET VOLUME 8.7 FL (7.0-11.0); MONO % 7.9 % (0.0-8.0); MONOCYTE # 0.7 TH/MM3 (0-0.9); NEUT % 67.6 % (16.0-70.0); PLATELET COUNT 328 TH/MM3 (150-450); RED BLOOD COUNT 2.63 MIL/MM3 (4.00-5.30); RED CELL DISTRIBUTION WIDTH 17.5 % (11.6-17.2); WHITE BLOOD COUNT 9.1 TH/MM3 (4.0-11.0)
[2017-11-19 07:05] LABS: HEMATOCRIT 20.7 % (35.0-46.0); HEMOGLOBIN 6.8 GM/DL (11.6-15.3)
[2017-11-19] MEDS: PYRIDOSTIGMINE BROMIDE 60 MG TAB PO SCH ×2 (07:08→12:10)
[2017-11-19 07:20] LABS: ALBUMIN 2.2 GM/DL (3.4-5.0); BICARBONATE 33.6 MEQ/L (21.0-32.0); CALCIUM 9.3 MG/DL (8.5-10.1); CREATININE 0.45 MG/DL (0.50-1.00); PHOSPHORUS 3.8 MG/DL (2.5-4.9)
[2017-11-19] MEDS: MULTIVITAMINS/MINERALS THERAPEUTIC TAB PO SCH (07:36)
[2017-11-19] MEDS: MYCOPHENOLATE MOFETIL 500 MG TAB PO SCH (07:37)
[2017-11-19] MEDS: predniSONE 10 MG TAB PO SCH (07:37)
[2017-11-19] MEDS: GABAPENTIN 300 MG CAP PO SCH (07:37)
[2017-11-19] MEDS: CITALOPRAM HYDROBROMIDE 40 MG TAB PO SCH (07:37)
[2017-11-19] MEDS: SODIUM CHLORIDE 0.9% FLUSH 10 ML FLUSH IV FLUSH SCH (07:40)
[2017-11-19] MEDS: DOCUSATE SODIUM 50 MG/SENNA 8.6 MG TAB PO SCH (07:44)
[2017-11-19] MEDS: LACTATED RINGER'S 1000 ML INJ 1,000 ML IV SCH (07:55)
[2017-11-19 08:00] VITALS: BP 107/66; PULSE 82; RESP 16; TEMP 97.1; O2SAT 99
[2017-11-19 08:09] LABS: AUTOMATED NEUTROPHIL # 5.9 TH/MM3 (1.8-7.7); BASOPHIL % 0.5 % (0.0-2.0); EOSINOPHIL # 0.2 TH/MM3 (0-0.4); EOSINOPHIL % 2.4 % (0.0-4.0); HEMATOCRIT 25.5 % (35.0-46.0); HEMOGLOBIN 8.3 GM/DL (11.6-15.3); LYMPH % 22.6 % (9.0-44.0); MEAN CORPUSCULAR HEMOGLOBIN 25.6 PG (27.0-34.0); MEAN CORPUSCULAR HGB CONC 32.4 % (32.0-36.0); MEAN PLATELET VOLUME 8.1 FL (7.0-11.0); MONO % 7.9 % (0.0-8.0); MONOCYTE # 0.7 TH/MM3 (0-0.9); NEUT % 66.6 % (16.0-70.0); PLATELET COUNT 354 TH/MM3 (150-450); RED BLOOD COUNT 3.22 MIL/MM3 (4.00-5.30); RED CELL DISTRIBUTION WIDTH 17.4 % (11.6-17.2); WHITE BLOOD COUNT 8.9 TH/MM3 (4.0-11.0)
[2017-11-19 08:26] LABS: ALBUMIN 2.5 GM/DL (3.4-5.0); DIRECT BILIRUBIN ADULT 0.1 MG/DL (0.0-0.2)
[2017-11-19 08:28] LABS: INDIRECT BILIRUBIN 0.1 MG/DL (0.0-0.8); TOTAL BILIRUBIN ADULT 0.2 MG/DL (0.2-1.0)
--- NOTE | 2017-11-19 09:36 | PD.ORT.PN ---
Subjective Post Op Day #: 4 Subjective Remarks Awake and alert, sitting upright in bed. Hospitalist at bedside discussing d/c plan. Pt has questions about d/c pain medication. Feels ready for d/c to [place] today. Objective Vitals Vital Signs Date Time Temp Pulse Resp B/P (MAP) Pulse Ox O2 Delivery O2 Flow Rate FiO2 11/19/17 04:00 96.4 86 15 125/68 (87) 100 11/19/17 03:55 82 15 117/60 11/19/17 03:36 15 11/19/17 03:32 15 11/19/17 01:45 78 15 107/58 11/19/17 00:00 97.7 83 14 115/66 (82) 97 11/18/17 23:45 78 15 116/56 11/18/17 23:39 83 15 112/53 11/18/17 22:59 72 15 120/60 11/18/17 22:45 72 15 110/60 11/18/17 22:00 15 11/18/17 18:30 18 11/18/17 16:00 97.8 76 18 117/58 (77) 100 11/18/17 14:13 17 11/18/17 14:00 17 11/18/17 12:00 97.8 77 18 106/57 (73) 97 11/18/17 09:44 21 I/O 11/18/17 11/18/17 11/18/17 11/19/17 11/19/17 11/19/17 06:59 14:59 22:59 06:59 14:59 22:59 Intake Total 2325 ml 1230 ml 500 ml 800 ml Balance 2325 ml 1230 ml 500 ml 800 ml Intake Oral 2000 ml 1200 ml 800 ml IV Total 325 ml 30 ml 500 ml # Voids 10 4 6 # Bowel Movements 1 2 Result Diagram: 11/19/17 0755 11/19/17 0530 Imaging Last 48 hours Impressions Hip X-Ray 11/15/17 0000 Signed Impressions: Service Date/Time: Wednesday, November 15, 2017 18:02 - CONCLUSION: Good position and alignment of the right hip prosthesis. Delroy James MD Procedures Right total hip arthroplasty 11/15/17 Objective Remarks The right hip dressing is dry and intact.There is minimal swelling. She has mild pain with attempts at range of motion. Freely able to move knee and ankle. There is no calf swelling. She has a negative Homans sign. Neurologically no focal deficit. Assessment & Plan Ortho Post Op Day #: 4 Problem List: (1) Avascular necrosis of right femoral head ICD Codes: M87.051 - Idiopathic aseptic necrosis of right femur (2) Chronic pain ICD Codes: G89.29 - Chronic pain Status: Chronic (3) Myasthenia ICD Codes: G70.00 - Myasthenia Status: Chronic Assessment and Plan Orthopedic status stable postoperative day #4 right total hip arthroplasty. Progress rehabilitation, w/b as tolerated. No change dressings over incision site. Ok to change drain site dressing daily. May consider platform walker for RUE d/t weakness from MG if therapy thinks appropriate. Oral pain medication will not be changed. D/C [employer]PRENTICE. DVT prophylaxis-ASA Clear for d/c from an orthopedic standpoint. F/U in [address] Baron.. Marilou Harmon Nov 19, 2017 09:36
--- NOTE | 2017-11-19 09:38 | HHI.DS ---
Discharge Summary Admission Date Nov 15, 2017 at 11:55 Discharge Date: Nov 19, 2017 Admitting Diagnosis Right hip AVN Diagnosis: (1) Avascular necrosis of right femoral head Diagnosis: Principal ICD Codes: M87.051 - Idiopathic aseptic necrosis of right femur (2) Chronic pain ICD Codes: G89.29 - Chronic pain Status: Chronic (3) Myasthenia ICD Codes: G70.00 - Myasthenia Status: Chronic Procedures Right total hip arthroplasty 11/15/17 Brief History This 42-year-old female who has a history of myasthenia gravis and has required steroid treatment in the past developed the onset of avascular necrosis involving her right femoral head. Initially conservative treatment was recommended however the patient has had progressive discomfort and has severe pain and limitations. X-rays are consistent with collapse of the femoral head and given the alternatives to treatment presents for total hip arthroplasty. CBC/BMP: 11/19/17 0755 11/19/17 0530 Significant Findings Laboratory Tests Test 11/16/17 15:45 11/16/17 18:45 11/16/17 23:30 11/17/17 08:55 White Blood Count 22.1 TH/MM3 (4.0-11.0) Red Blood Count 3.55 MIL/MM3 (4.00-5.30) Hemoglobin 9.0 GM/DL (11.6-15.3) 7.7 GM/DL (11.6-15.3) Hematocrit 27.9 % (35.0-46.0) 23.7 % (35.0-46.0) Mean Corpuscular Volume 78.7 FL (80.0-100.0) Mean Corpuscular Hemoglobin 25.3 PG (27.0-34.0) Red Cell Distribution Width 17.6 % (11.6-17.2) Neutrophils (%) (Auto) 86.8 % (16.0-70.0) Lymphocytes (%) (Auto) 4.0 % (9.0-44.0) Monocytes (%) (Auto) 8.9 % (0.0-8.0) Neutrophils # (Auto) 19.2 TH/MM3 (1.8-7.7) Lymphocytes # (Auto) 0.9 TH/MM3 (1.0-4.8) Monocytes # (Auto) 2.0 TH/MM3 (0-0.9) Blood Urea Nitrogen 4 MG/DL (7-18) Random Glucose 122 MG/DL (74-106) Albumin 2.9 GM/DL (3.4-5.0) Aspartate Amino Transf (AST/SGOT) 11 U/L (15-37) Sodium Level 132 MEQ/L (136-145) Anion Gap 1 MEQ/L (5-15) Urine Occult Blood TRACE (NEG) Urine Opiates Screen POS (NEG) Urine Cannabinoids Screen POS (NEG) Prothrombin Time 11.8 SEC (9.8-11.6) Activated Partial Thromboplast Time 30.7 SEC (24.3-30.1) Test 11/17/17 11:37 11/18/17 05:13 11/19/17 05:30 11/19/17 07:55 Blood Urea Nitrogen 6 MG/DL (7-18) 3 MG/DL (7-18) 5 MG/DL (7-18) Creatinine 0.44 MG/DL (0.50-1.00) 0.45 MG/DL (0.50-1.00) Random Glucose 116 MG/DL (74-106) Albumin 2.6 GM/DL (3.4-5.0) 2.6 GM/DL (3.4-5.0) 2.2 GM/DL (3.4-5.0) 2.5 GM/DL (3.4-5.0) Aspartate Amino Transf (AST/SGOT) 12 U/L (15-37) 14 U/L (15-37) Anion Gap 1 MEQ/L (5-15) 2 MEQ/L (5-15) 3 MEQ/L (5-15) White Blood Count 11.8 TH/MM3 (4.0-11.0) Red Blood Count 3.28 MIL/MM3 (4.00-5.30) 2.63 MIL/MM3 (4.00-5.30) 3.22 MIL/MM3 (4.00-5.30) Hemoglobin 8.4 GM/DL (11.6-15.3) 6.8 GM/DL (11.6-15.3) 8.3 GM/DL (11.6-15.3) Hematocrit 26.3 % (35.0-46.0) 20.7 % (35.0-46.0) 25.5 % (35.0-46.0) Mean Corpuscular Hemoglobin 25.6 PG (27.0-34.0) 26.0 PG (27.0-34.0) 25.6 PG (27.0-34.0) Red Cell Distribution Width 17.3 % (11.6-17.2) 17.5 % (11.6-17.2) 17.4 % (11.6-17.2) Monocytes (%) (Auto) 8.9 % (0.0-8.0) Neutrophils # (Auto) 8.3 TH/MM3 (1.8-7.7) Monocytes # (Auto) 1.1 TH/MM3 (0-0.9) Potassium Level 3.4 MEQ/L (3.5-5.1) Carbon Dioxide Level 32.2 MEQ/L (21.0-32.0) 33.6 MEQ/L (21.0-32.0) Mean Corpuscular Volume 78.9 FL (80.0-100.0) 79.0 FL (80.0-100.0) Total Protein 9.0 GM/DL (6.4-8.2) Imaging Last Impressions Chest X-Ray 11/16/17 1637 Signed Impressions: Service Date/Time: Thursday, November 16, 2017 16:49 - CONCLUSION: No acute disease. Kory Black MD Hip X-Ray 11/15/17 0000 Signed Impressions: Service Date/Time: Wednesday, November 15, 2017 18:02 - CONCLUSION: Good position and alignment of the right hip prosthesis. Delroy James MD PE at Discharge The right hip dressing is dry and intact.There is minimal swelling. She has mild pain with attempts at range of motion. Freely able to move knee and ankle. There is no calf swelling. She has a negative Homans sign. Neurologically no focal deficit. Hospital Course On the day of admission the patient was taken to the operating room where the patient underwent right total hip arthroplasty. The patient tolerated the procedure well. For details of operative report please see dictated operative report. The patient was placed on Ancef for infection prophylaxis and Aspirin for DVT prophylaxis. Physical therapy was consulted for discharge planning. The patient will go to Rehab and it has been arranged. At the time of discharge the patient was afebrile. Incision line noted to be healing well. The patient will be discharged home with ASA for DVT prophylaxis and prescribed Percocet for pain. The patient acknowledges full understanding of plan of treatment and agrees to it. Pt Condition on Discharge: Good Discharge Disposition: Rehab Inpatient Discharge Instructions Diet Instructions: As Tolerated, No Restrictions Activities You Can Perform: Regular-No Restrictions Marilou Harmon Nov 19, 2017 09:38
[2017-11-19] MEDS ORDERED: WALKER/ADULT/FO1 MIS (09:43)
[2017-11-19] MEDS ORDERED: OXYC1TAB63 PO (09:43)
[2017-11-19] MEDS ORDERED: ASPI-516 CHEW (09:43)
--- NOTE | 2017-11-19 11:54 | HHI.PR ---
Subjective Remarks She says she is feeling all right. Reports pain is controlled. Denies any chest pain or shortness of breath. Hemoglobin 6.8 this morning. Likely drawn from port. Recheck 8.3 without any transfusion. Discussed with nursing, orthopedics. Objective Vital Signs Date Time Temp Pulse Resp B/P (MAP) Pulse Ox O2 Delivery O2 Flow Rate FiO2 11/19/17 08:00 97.1 82 16 107/66 (80) 99 11/19/17 04:00 96.4 86 15 125/68 (87) 100 11/19/17 03:55 82 15 117/60 11/19/17 03:36 15 11/19/17 03:32 15 11/19/17 01:45 78 15 107/58 11/19/17 00:00 97.7 83 14 115/66 (82) 97 11/18/17 23:45 78 15 116/56 11/18/17 23:39 83 15 112/53 11/18/17 22:59 72 15 120/60 11/18/17 22:45 72 15 110/60 11/18/17 22:00 15 11/18/17 18:30 18 11/18/17 16:00 97.8 76 18 117/58 (77) 100 11/18/17 14:13 17 11/18/17 14:00 17 11/18/17 12:00 97.8 77 18 106/57 (73) 97 I/O 11/18/17 11/18/17 11/18/17 11/19/17 11/19/17 11/19/17 07:00 15:00 23:00 07:00 15:00 23:00 Intake Total 1125 ml 1230 ml 500 ml 800 ml Balance 1125 ml 1230 ml 500 ml 800 ml Intake Oral 800 ml 1200 ml 800 ml IV Total 325 ml 30 ml 500 ml # Voids 5 4 6 # Bowel Movements 1 2 Result Diagram: 11/19/17 0755 11/19/17 0530 Objective Remarks GENERAL: Sitting up in chair. Appears comfortable. aaox3. No changes on exam. SKIN: Warm and dry. HEAD: Normocephalic. EYES: No scleral icterus. No injection or drainage. NECK: Supple, trachea midline. No JVD. CARDIOVASCULAR: Regular rate and rhythm without murmurs, gallops, or rubs. RESPIRATORY: Breath sounds equal bilaterally. No accessory muscle use. GASTROINTESTINAL: Abdomen soft, non-tender, nondistended. MUSCULOSKELETAL: No cyanosis, or edema. BACK: Nontender without obvious deformity. No CVA tenderness. A/P Assessment and Plan //Postoperative day 4 right total hip arthroplasty performed due to avascular necrosis of the femoral head. -Pain control as per surgical service -Postoperative management as per surgical service. = Discharge to rehabilitation today. //Postoperative anemia. Hemoglobin 7.7. Likely dilutional. No signs of bleeding. Recheck tomorrow = Hemoglobin 8.4. Improved. = Lab error 6.8, with repeat 8.3. //Postoperative SIRS of fever 1.5, tachycardia 120, leukocytosis 22. = Likely secondary to stress Chest x-ray, urinalysis, ordered = Continue to monitor for signs of infection. = 11/17. Resolved. No further fevers. Chest x-ray remarkable, urinalysis appears noninfectious. = 11/18. Leukocytosis 11. Much improved. Secondary to stress = 11/19. Leukocytosis resolved. /Myasthenia gravis = Patient does have bilateral lid droop, feels she may be in exacerbation. = Consult neurology. Medications as per neurology. = Neurology giving IVIG. Appreciate assistance. = Continue CellCept, 5 mg daily prednisone, Mestinon as per neurology.. //Suspected adrenal insufficiency. -Patient reports being on 5 mg prednisone for many years. -We will double dose to 10 mg daily while in the hospital = Continue prednisone 10 mg daily. = taper prednisone back to chronic dose of 5 mg daily //Hyponatremia. Sodium 132. Possibly secondary to adrenal insufficiency. Recheck tomorrow. = Resolved //Previous cocaine positivity on previous UDS. recheck. = 11/17. Recheck negative for cocaine, positive for marijuana = Cessation counseling provided. =strongly recommend avoiding cocaine due to patient's myasthenia gravis. //Hypokalemia. Resolved after replacement. //Chronic migraines. Continue Imitrex as needed. //Depression. Chronic. Continue home medication. //Anemia. Hemoglobin 9.0. Chronic. Continue to monitor. Discharge Planning Discharge to rehabilitation as per primary team. Julio C Alberto MD Nov 19, 2017 11:54
== END 2017-11-19 12:47 | DRG 469 ==
LOC: HSDI 11:55 → N06A 19:44
PROVIDERS: ADMIT Orthopaedic Surgery Sports Medicine; ATTEND Orthopaedic Surgery Sports Medicine
PROC: 0SR902A Replacement of Right Hip Joint with Metal on Polyethylene Synthetic Substitute, Uncemented, Open Approach (ICD-10-PCS; principal; 2017-11-15 15:15)
DX: M87.151 Osteonecrosis due to drugs, right femur (principal); G70.01 Myasthenia gravis with (acute) exacerbation; R65.10 Systemic inflammatory response syndrome (SIRS) of non-infectious origin without acute organ dysfunction; E87.1 Hypo-osmolality and hyponatremia; F32.9 Major depressive disorder, single episode, unspecified; D64.9 Anemia, unspecified; R00.0 Tachycardia, unspecified; G89.29 Other chronic pain; G43.909 Migraine, unspecified, not intractable, without status migrainosus; E87.6 Hypokalemia; R49.0 Dysphonia; Z79.52 Long term (current) use of systemic steroids; Z87.891 Personal history of nicotine dependence
CPT/HCPCS: 71045; 73501; 80053; 80069; 80076; 80307; 81001; 82247; 83605; 83735; 85014; 85018; 85025; 85610; 85730; 86850; 86900; 86901; 87804; 88304; 88305; 88311; 94150; C1776; C9290; J1170; J1459; J1580; J1885; J2060; J2250; J2270; J2370; J2405; J3010; J3370; J7030; J7040; J7060; J7120; J7512; J7517

== ENCOUNTER 2017-12-15 12:28 | Inpatient (IN) | payer MEDICARE, MEDICAID ==
[~2017-12-15] VITALS: Ht 165.1 cm; Wt 51.4 kg
[~2017-12-15 12:28] MED LIST changes: +ALPR.5 PO; +ASPI-516 CHEW; +Acet-Butal-Caff 325-50-40 Mg PO; -BEDSIDE COMMODE1 MI1; -MIDO5TAB PO; +NEUR300C PO; +OXYC15TA PO; -OXYC1TAB36 PO; +PERI PO; +THERTAB15 PO; -WALKER WHEELS/F1 MIS; +WALKER/ADULT/FO1 MIS; -XANA1TAB2 PO
[2017-12-15 13:00] VITALS: BP 130/79; PULSE 52; RESP 22; TEMP 98.4; O2SAT 100
[2017-12-15] MEDS ORDERED: SODIUM CHLORIDE 0.9% FLUSH 10 ML FLUSH IV FLUSH PRN (13:00)
--- NOTE | 2017-12-15 13:03 | PD ---
HPI Chief Complaint: weakness Time Seen by Provider: 13:00 Travel History International Travel<30 days: No Contact w/Intl Traveler<30days: No History of Present Illness HPI 42-year-old female with PMH of myasthenia gravis presents to the ED for evaluation of exacerbation of symptoms. Patient states that her neck is weak, she is unable to stand, having slurred speech, double vision in the left eye, difficulty swallowing, increased anxiety. She denies breathing difficulties. Gradual onset over last 24 hours. She states that she has been able to take her medications for 24 hours secondary to her symptoms. She states that her symptoms are similar to previous exacerbations. She states that she had her right hip replaced last month and is currently undergoing physical therapy a few days a week. She states that she receives IVIG monthly, last dose in early November. She states that she's been intubated twice secondary to previous exacerbations. She is followed by Dr. Zackery CRUZ Past Medical History Hx Anticoagulant Therapy: No Anemia: Yes Arthritis: No Asthma: No Autoimmune Disease: Yes (MYASTHENIA GRAVIS) Blood Disorders: No Anxiety: Yes Depression: Yes Heart Rhythm Problems: No Cancer: No Cardiovascular Problems: Yes High Cholesterol: No Chemotherapy: No Chest Pain: No Congestive Heart Failure: No COPD: No Cerebrovascular Accident: No Cystic Fibrosis: No Diabetes: No Diminished Hearing: No Endocrine: No Gastrointestinal Disorders: No GERD: No Genitourinary: No Headaches: Yes Hepatitis: No Hiatal Hernia: No Hypertension: No Immune Disorder: Yes (MYASTHENIA GRAVIS) Implanted Vascular Access Dvce: Yes (left chest power port) Kidney Stones: No Musculoskeletal: Yes (AVASCULAR NECROSIS IN THE HIP) Neurologic: Yes (MYASTHENIA GRAVIS - Jul, 2013) Psychiatric: Yes (DEPRESSION, ANXIETY) Reproductive: No Respiratory: Yes Immunizations Current: No Migraines: Yes Radiation Therapy: No Renal Failure: No Seizures: No Sickle Cell Disease: No Sleep Apnea: No Thyroid Disease: Yes (myasthenia gravis) Ulcer: No : 2 Para: 2 Dilation and Curettage (D&C): Yes Tubal Ligation: Yes Past Surgical History Abdominal Surgery: No AICD: No Arteriovenous Shunt: No Body Medical Devices: LEFT IMPLANTED PORT Cardiac Surgery: No Ear Surgery: No Endocrine Surgery: Yes ( thymus removed) Eye Surgery: No Genitourinary Surgery: No Gynecologic Surgery: Yes (tubal ligation 2014) Insulin Pump: No Joint Replacement: Yes (11/2017) Neurologic Surgery: No Oral Surgery: Yes (EXTRACTIONS - wisdom teeth) Pacemaker: No Thoracic Surgery: No Tonsillectomy: Yes Other Surgery: Yes (tubal ligation Dec 2014/ POWER PORT TO LEFT CHEST, thymus gland) Social History Alcohol Use: No Tobacco Use: No Substance Use: No Allergies-Medications (Allergen,Severity, Reaction): Coded Allergies: penicillin G (Unverified Allergy, Severe, Anaphylaxis, 12/15/17) promethazine (Unverified Adverse Reaction, Severe, NAUSEOUS, 12/15/17) Reported Meds & Prescriptions Reported Meds & Active Scripts Active Neurontin (Gabapentin) 300 Mg Cap 300 Mg PO Q8H [Iyat-Anbjq-Jvtd 325-50-40 Mg] 1 TAB Tab 1 Tab PO Q6H PRN Mestinon (Pyridostigmine [place]) 60 Mg Tab 120 Mg PO TIDAC Cellcept (Mycophenolate Mofetil) 500 Mg Tab 500 Mg PO BID Prednisone 5 Mg Tab 5 Mg PO DAILY Citalopram (Citalopram Hydrobromide) 40 Mg Tab 40 Mg PO DAILY Lactinex (Lactobacillus Acidophilus) 1 Chew 1 Tab CHEW DAILY Imitrex (Sumatriptan Succinate) 50 Mg Tab 50 Mg PO NEEDED PRN If a satisfactory response has not been obtained at 2 hours, a second dose may be administered Reported Midodrine 5 Mg Tab 5 Mg PO BID Percocet (Oxycodone-Acetaminophen) 10-325 mg Tab 1 Tab PO Q6H PRN Xanax (Alprazolam) 1 Mg Tab 1 Mg PO Q8H PRN Review of Systems Except as stated in HPI: all other systems reviewed are Neg Physical Exam Narrative GENERAL: Well-nourished, well-developed thin, anxious white female in no acute distress. She is in a c-collar. SKIN: Focused skin assessment warm/dry. Poor in the left chest, well-healed without signs of infection. HEAD: Normocephalic. EYES: No scleral icterus. No injection or drainage. PERRLA. EOMI. No ptosis. NECK: Supple, trachea midline. No JVD or lymphadenopathy. CARDIOVASCULAR: Regular rate and rhythm without murmurs, gallops, or rubs. RESPIRATORY: Breath sounds clear and equal bilaterally. No accessory muscle use. GASTROINTESTINAL: Abdomen soft, non-tender, nondistended. Active bowel sounds. MUSCULOSKELETAL: No cyanosis, or edema. NEURO: Alert, oriented. Right-sided facial droop. Slurred speech. 4/5 strength in the bilateral upper extremities. 2/5 strength in the lower extremities bilaterally. BACK: Nontender without obvious deformity. No CVA tenderness. Data Data Last Documented VS Vital Signs Date Time Temp Pulse Resp B/P (MAP) Pulse Ox O2 Delivery O2 Flow Rate FiO2 12/15/17 13:00 98.4 52 22 130/79 (96) 100 Orders Orders Complete Blood Count With Diff (12/15/17 12:59) Comprehensive Metabolic Panel (12/15/17 12:59) Prothrombin Time / Inr (Pt) (12/15/17 12:59) Act Partial Throm Time (Ptt) (12/15/17 12:59) Urinalysis - C+S If Indicated (12/15/17 12:59) Iv Access Insert/Monitor (12/15/17 12:59) Ecg Monitoring (12/15/17 12:59) Oximetry (12/15/17 12:59) Sodium Chloride 0.9% Flush (Ns Flush) (12/15/17 13:00) Electrocardiogram (12/15/17 12:59) Vital Signs (Adult) Q15MX4,Q1H (12/15/17 13:15) ^ Treatment Of Side Effects (12/15/17 13:15) Sodium Chlorid 0.9% 500 Ml Inj (Ns 500 M (12/15/17 13:15) Acetaminophen (Tylenol) (12/15/17 13:15) Dextrose 5% In Wate 500 Ml Inj (D5w 500 (12/15/17 14:15) Diphenhydramine (Benadryl) (12/15/17 13:15) Immune Globulin Inj (Privigen Inj) (12/15/17 14:15) Diphenhydramine Inj (Benadryl Inj) (12/15/17 14:15) Epinephrine (1:1000) Inj (Adrenalin (1:1 (12/15/17 14:15) Consult Neurology (12/15/17 ) Admit Order (Ed Use Only) (12/15/17 14:16) Labs Laboratory Tests Test 12/15/17 13:35 White Blood Count 7.0 TH/MM3 Red Blood Count 3.67 MIL/MM3 Hemoglobin 8.5 GM/DL Hematocrit 26.7 % Mean Corpuscular Volume 72.9 FL Mean Corpuscular Hemoglobin 23.2 PG Mean Corpuscular Hemoglobin Concent 31.8 % Red Cell Distribution Width 18.8 % Platelet Count 527 TH/MM3 Mean Platelet Volume 7.5 FL Neutrophils (%) (Auto) 49.7 % Lymphocytes (%) (Auto) 41.2 % Monocytes (%) (Auto) 6.7 % Eosinophils (%) (Auto) 0.6 % Basophils (%) (Auto) 1.8 % Neutrophils # (Auto) 3.5 TH/MM3 Lymphocytes # (Auto) 2.9 TH/MM3 Monocytes # (Auto) 0.5 TH/MM3 Eosinophils # (Auto) 0.0 TH/MM3 Basophils # (Auto) 0.1 TH/MM3 CBC Comment DIFF FINAL Differential Comment Prothrombin Time 11.6 SEC Prothromb Time International Ratio 1.1 RATIO Activated Partial Thromboplast Time 27.2 SEC Blood Urea Nitrogen 6 MG/DL Creatinine 0.51 MG/DL Random Glucose 74 MG/DL Total Protein 7.1 GM/DL Albumin 3.2 GM/DL Calcium Level 8.7 MG/DL Alkaline Phosphatase 82 U/L Aspartate Amino Transf (AST/SGOT) 11 U/L Alanine Aminotransferase (ALT/SGPT) 12 U/L Total Bilirubin 0.2 MG/DL Sodium Level 138 MEQ/L Potassium Level 3.2 MEQ/L Chloride Level 109 MEQ/L Carbon Dioxide Level 29.5 MEQ/L Anion Gap -1 MEQ/L Estimat Glomerular Filtration Rate 133 ML/MIN [facility] Medical Decision Making Medical Screen Exam Complete: Yes Emergency Medical Condition: Yes Differential Diagnosis Myasthenia gravis exacerbation versus metabolic derangement versus UTI versus other Narrative Course 42-year-old female with PMH of myasthenia gravis presents to the ED for evaluation of neck weakness, inability to stand, slurred speech, double vision in the left eye, difficulty swallowing, increased anxiety. She denies breathing difficulties. Gradual onset over the last 24 hours. Symptoms are similar to previous exacerbations. She had her right hip replaced last month and is currently undergoing PT a few days a week. She states that she receives IVIG monthly, last dose in early November. She states that she's been intubated twice secondary to previous exacerbations. She is followed by Dr. Vizcarra. Temp 98.4, pulse 52, respiratory rate 22, pulse ox 100% ORA, BP 130/ 79 on presentation. On exam the patient has slurred speech, mild right-sided facial droop, weakness of the neck, 2/5 strength in the lower extremities, 3/5 in the upper extremities. Breath sounds are clear and equal bilaterally with good inspiratory effort. IV was established. IVIG initiated. I spoke with Dr. Vizcarra who recommends 400 mg/kg IVIG 3 doses. He requests a consult for Dr. De La Fuente --second rigger for his group today-- and admit the patient. EKG rate 42, sinus rhythm. WI interval 131, QRS 86, QT 517, QTc 458 ms. Normal axis. No acute ST changes. Reviewed by Dr. Spann. 12/15/17 13:35 The patient is agreeable to admission. I spoke with Dr. Garcia who agrees to accept the patient to the medicine service. Please see medicine notes for disposition. Aidee Causey Dec 15, 2017 13:03
--- NOTE | 2017-12-15 13:16 | PD ---
Data Data Last Documented VS Vital Signs Date Time Temp Pulse Resp B/P (MAP) Pulse Ox O2 Delivery O2 Flow Rate FiO2 12/15/17 13:00 98.4 52 22 130/79 (96) 100 Orders Orders Complete Blood Count With Diff (12/15/17 12:59) Comprehensive Metabolic Panel (12/15/17 12:59) Prothrombin Time / Inr (Pt) (12/15/17 12:59) Act Partial Throm Time (Ptt) (12/15/17 12:59) Urinalysis - C+S If Indicated (12/15/17 12:59) Iv Access Insert/Monitor (12/15/17 12:59) Ecg Monitoring (12/15/17 12:59) Oximetry (12/15/17 12:59) Sodium Chloride 0.9% Flush (Ns Flush) (12/15/17 13:00) Electrocardiogram (12/15/17 12:59) Vital Signs (Adult) Q15MX4,Q1H (12/15/17 13:15) ^ Treatment Of Side Effects (12/15/17 13:15) Sodium Chlorid 0.9% 500 Ml Inj (Ns 500 M (12/15/17 13:15) Acetaminophen (Tylenol) (12/15/17 13:15) Dextrose 5% In Wate 500 Ml Inj (D5w 500 (12/15/17 14:15) Diphenhydramine (Benadryl) (12/15/17 13:15) Immune Globulin Inj (Privigen Inj) (12/15/17 14:15) Diphenhydramine Inj (Benadryl Inj) (12/15/17 14:15) Epinephrine (1:1000) Inj (Adrenalin (1:1 (12/15/17 14:15) Consult Neurology (12/15/17 ) Admit Order (Ed Use Only) (12/15/17 14:16) Labs Laboratory Tests Test 12/15/17 13:35 White Blood Count 7.0 TH/MM3 Red Blood Count 3.67 MIL/MM3 Hemoglobin 8.5 GM/DL Hematocrit 26.7 % Mean Corpuscular Volume 72.9 FL Mean Corpuscular Hemoglobin 23.2 PG Mean Corpuscular Hemoglobin Concent 31.8 % Red Cell Distribution Width 18.8 % Platelet Count 527 TH/MM3 Mean Platelet Volume 7.5 FL Neutrophils (%) (Auto) 49.7 % Lymphocytes (%) (Auto) 41.2 % Monocytes (%) (Auto) 6.7 % Eosinophils (%) (Auto) 0.6 % Basophils (%) (Auto) 1.8 % Neutrophils # (Auto) 3.5 TH/MM3 Lymphocytes # (Auto) 2.9 TH/MM3 Monocytes # (Auto) 0.5 TH/MM3 Eosinophils # (Auto) 0.0 TH/MM3 Basophils # (Auto) 0.1 TH/MM3 CBC Comment DIFF FINAL Differential Comment Prothrombin Time 11.6 SEC Prothromb Time International Ratio 1.1 RATIO Activated Partial Thromboplast Time 27.2 SEC Blood Urea Nitrogen 6 MG/DL Creatinine 0.51 MG/DL Random Glucose 74 MG/DL Total Protein 7.1 GM/DL Albumin 3.2 GM/DL Calcium Level 8.7 MG/DL Alkaline Phosphatase 82 U/L Aspartate Amino Transf (AST/SGOT) 11 U/L Alanine Aminotransferase (ALT/SGPT) 12 U/L Total Bilirubin 0.2 MG/DL Sodium Level 138 MEQ/L Potassium Level 3.2 MEQ/L Chloride Level 109 MEQ/L Carbon Dioxide Level 29.5 MEQ/L Anion Gap -1 MEQ/L Estimat Glomerular Filtration Rate 133 ML/MIN MDM Supervised Visit with DARRIAN: Yes Narrative Course I, Dr. Spann, have reviewed the advance practice practitioner's documentation and am in agreement, met with the patient face to face, made the diagnosis, and the medical decision making was done by me. *My assessment and Findings: Patient seen and examined by me in addition to Alek Lopez, has a history of myasthenia gravis and has some slurred speech but otherwise she was nonfocal for me. I do not appreciate any facial weakness or facial droop bridge, she is 5 out of 5 strength in all 4 extremities, she has no ptosis. She has been given IVIG in the past and after discussion with Dr. Vizcarra will be admitted consult to Dr. De La Fuente. Andrea Spann MD Dec 15, 2017 13:16
[2017-12-15] MEDS: ACETAMINOPHEN 325 MG TAB PO SCH (13:43)
[2017-12-15] MEDS: diphenhydrAMINE HCL 25 MG CAP PO SCH (13:45)
[2017-12-15 13:47] LABS: AUTOMATED NEUTROPHIL # 3.5 TH/MM3 (1.8-7.7); BASOPHIL # 0.1 TH/MM3 (0-0.2); BASOPHIL % 1.8 % (0.0-2.0); EOSINOPHIL % 0.6 % (0.0-4.0); HEMATOCRIT 26.7 % (35.0-46.0); HEMOGLOBIN 8.5 GM/DL (11.6-15.3); LYMPH % 41.2 % (9.0-44.0); LYMPHOCYTE # 2.9 TH/MM3 (1.0-4.8); MEAN CELL VOLUME 72.9 FL (80.0-100.0); MEAN CORPUSCULAR HEMOGLOBIN 23.2 PG (27.0-34.0); MEAN CORPUSCULAR HGB CONC 31.8 % (32.0-36.0); MEAN PLATELET VOLUME 7.5 FL (7.0-11.0); MONO % 6.7 % (0.0-8.0); MONOCYTE # 0.5 TH/MM3 (0-0.9); NEUT % 49.7 % (16.0-70.0); PLATELET COUNT 527 TH/MM3 (150-450); RED BLOOD COUNT 3.67 MIL/MM3 (4.00-5.30); RED CELL DISTRIBUTION WIDTH 18.8 % (11.6-17.2)
[2017-12-15] MEDS: SODIUM CHLORID 0.9% 500 ML INJ 500 ML IV SCH (13:52)
[2017-12-15 13:58] LABS: INTERNATIONAL NORMALIZED RATIO 1.1 RATIO; PROTHROMBIN TIME - PATIENT 11.6 SEC (9.8-11.6)
[2017-12-15 14:03] LABS: ALBUMIN 3.2 GM/DL (3.4-5.0); AST (GOT) 11 U/L (15-37); BICARBONATE 29.5 MEQ/L (21.0-32.0); BLOOD UREA NITROGEN 6 MG/DL (7-18); CALCIUM 8.7 MG/DL (8.5-10.1); CHLORIDE 109 MEQ/L (98-107); CREATININE 0.51 MG/DL (0.50-1.00); GLOMERULAR FILTRATION RATE 133 ML/MIN (>89); GLUCOSE,RANDOM 74 MG/DL (74-106); SODIUM (NA) 138 MEQ/L (136-145)
[2017-12-15 14:12] LABS: ALKALINE PHOSPHATASE 82 U/L (45-117); ALT (GPT) 12 U/L (10-53); TOTAL BILIRUBIN ADULT 0.2 MG/DL (0.2-1.0); TOTAL PROTEIN 7.1 GM/DL (6.4-8.2)
[2017-12-15] MEDS ORDERED: PERC10TA27 PO (14:12)
[2017-12-15] MEDS ORDERED: XANA1TAB2 PO (14:12)
[2017-12-15] MEDS ORDERED: MIDO5TAB PO (14:12)
[2017-12-15] MEDS ORDERED: DEXTROSE 5% IN WATE 500 ML INJ 500 ML OTHER ONE (14:15)
[2017-12-15] MEDS ORDERED: diphenhydrAMINE HCL 50 MG/ML VIAL IV PUSH PRN (14:15)
[2017-12-15] MEDS ORDERED: EPINEPHrine HCL (1:1000) 1 MG/ML VIAL OTHER PRN (14:15)
[2017-12-15 15:13] LABS: BILIRUBIN, URINE NEG (NEG); BLOOD, URINE NEG (NEG); GLUCOSE,URINE NEG (NEG); KETONE, URINE NEG (NEG); MUCUS URINE MANY /lpf (OCC); NITRITE,URINE NEG (NEG); SQUAMOUS EPITHELIAL CELL URINE 9 /hpf (0-5); URINE COLOR YELLOW (YELLW/STRAW); URINE LEUKOCYTE ESTERASE NEG (NEG)
[2017-12-15] MEDS ORDERED: BISACODYL 10 MG SUPP RECTAL PRN (15:45)
[2017-12-15] MEDS ORDERED: ACETAMINOPHEN 325 MG TAB PO PRN (15:45)
[2017-12-15] MEDS ORDERED: NALOXONE HCL 0.4 MG/ML AMP IV PUSH PRN (15:45)
[2017-12-15] MEDS ORDERED: ALPRAZolam 1 MG TAB PO ONE (15:45)
[2017-12-15] MEDS ORDERED: MAGNESIUM HYDROXIDE SUSP 30 ML CUP PO PRN (15:45)
[2017-12-15] MEDS ORDERED: SENNOSIDES 8.6 MG TAB PO PRN (15:45)
[2017-12-15] MEDS ORDERED: LACTULOSE SYRUP 20 GM/30 ML CUP PO PRN (15:45)
[2017-12-15] MEDS: IMMUNE GLOBULIN INJ 20 GM in SYRINGE/BAG 1 EA IV SCH (15:57)
--- NOTE | 2017-12-15 17:46 | HHI.HP ---
[facility] Service [facility] Primary Care Physician Non-Staff Admission Diagnosis exacerbation of myasthenia gravis Diagnoses: Chief Complaint: Weakness Travel History International Travel<30 Days: No Contact w/Intl Traveler <30 Da: No Traveled to Known Affected Are: No History of Present Illness This is a 42-year-old female with past medical history significant for myasthenia gravis who presents to the emergency department for evaluation of exacerbation of her symptoms. The patient states that she started having weakness in all extremities, difficulty talking, double vision. All symptoms started yesterday afternoon. The patient however denies any fevers, chills, abdominal pain, nausea, vomiting, chest pain, shortness of breath, cough, diarrhea, constipation, lower extremity edema, skin lesions. The patient however states that she thinks she might have a urinary tract infection since she has had some urinary discomfort. Review of Systems As per HPI, other systems reviewed by me and negative. Past Family Social History Past Medical History 1. Myasthenia gravis. 2. Avascular necrosis of the right hip. 3. Depression. 4. Hypotension. Past Surgical History Thymus removed Bilateral tubal ligation Left chest port placement Tonsillectomy Reported Medications Reported Meds & Active Scripts Active Neurontin (Gabapentin) 300 Mg Cap 300 Mg PO Q8H [Tmyq-Mzvsn-Zceg 325-50-40 Mg] 1 TAB Tab 1 Tab PO Q6H PRN Mestinon (Pyridostigmine [place]) 60 Mg Tab 120 Mg PO TIDAC Cellcept (Mycophenolate Mofetil) 500 Mg Tab 500 Mg PO BID Prednisone 5 Mg Tab 5 Mg PO DAILY Citalopram (Citalopram Hydrobromide) 40 Mg Tab 40 Mg PO DAILY Lactinex (Lactobacillus Acidophilus) 1 Chew 1 Tab CHEW DAILY Imitrex (Sumatriptan Succinate) 50 Mg Tab 50 Mg PO NEEDED PRN If a satisfactory response has not been obtained at 2 hours, a second dose may be administered Reported Midodrine 5 Mg Tab 5 Mg PO BID Percocet (Oxycodone-Acetaminophen) 10-325 mg Tab 1 Tab PO Q6H PRN Xanax (Alprazolam) 1 Mg Tab 1 Mg PO Q8H PRN Allergies: Coded Allergies: penicillin G (Unverified Allergy, Severe, Anaphylaxis, 12/15/17) promethazine (Unverified Adverse Reaction, Severe, NAUSEOUS, 12/15/17) Active Ordered Medications Current Medications Medications (Trade) Dose Ordered Sig/Gómez Route Start Time Stop Time Status Last Admin (NS Flush) 2 ml UNSCH PRN IV FLUSH 12/15/17 13:00 Sodium Chloride 500 ml @ 500 mls/hr Q24H IV 12/15/17 13:15 12/16/17 14:14 12/15/17 13:52 (Tylenol) 650 mg Q24H PO 12/15/17 13:15 12/17/17 13:14 12/15/17 13:43 Dextrose 500 ml @ 30 mls/hr [id number] ONCE OTHER 12/15/17 14:15 12/16/17 06:54 12/15/17 15:57 (Benadryl) 25 mg Q24H PO 12/15/17 13:15 12/17/17 13:14 12/15/17 13:45 Immune Globulin 20 gm/Syringe / Bag 200 ml @ 0 mls/hr Q24H IV 12/15/17 14:15 12/16/17 14:16 12/15/17 15:57 (Benadryl Inj) 50 mg UNSCH PRN IV PUSH 12/15/17 14:15 12/18/17 14:14 (Adrenalin (1:1000) Inj) 0.3 mg Q10M PRN OTHER 12/15/17 14:15 12/18/17 14:14 Sodium Chloride 1,000 ml @ 75 mls/hr [id number] IV 12/15/17 15:31 (NS Flush) 2 ml UNSCH PRN IV FLUSH 12/15/17 15:45 (NS Flush) 2 ml BID IV FLUSH 12/15/17 21:00 (Tylenol) 650 mg Q4H PRN PO 12/15/17 15:45 (Zofran Inj) 4 mg Q6H PRN IVP 12/15/17 15:45 (Narcan Inj) 0.4 mg UNSCH PRN IV PUSH 12/15/17 15:45 (Bonita-Colace) 1 tab BID PO 12/15/17 21:00 (Milk Of Magnesia Liq) 30 ml Q12H PRN PO 12/15/17 15:45 (Senokot) 17.2 mg Q12H PRN PO 12/15/17 15:45 (Dulcolax Supp) 10 mg DAILY PRN RECTAL 12/15/17 15:45 (Lactulose Liq) 30 ml DAILY PRN PO 12/15/17 15:45 Family History Father has diabetes mellitus. Social History Former smoker. Smoked half a pack per day for 20 years. Denies alcohol or illicit drug use. Physical Exam Vital Signs Vital Signs Date Time Temp Pulse Resp B/P (MAP) Pulse Ox O2 Delivery O2 Flow Rate FiO2 12/15/17 15:57 48 20 120/83 12/15/17 13:00 98.4 52 22 130/79 (96) 100 Physical Exam GENERAL: This is a well-nourished, well-developed patient, in no apparent distress. SKIN: No rashes, ecchymoses or lesions. Cool and dry. HEAD: Atraumatic. Normocephalic. No temporal or scalp tenderness. EYES: Pupils equal round and reactive. Extraocular motions intact. No scleral icterus. No injection or drainage. ENT: Nose without bleeding, purulent drainage or septal hematoma. Throat without erythema, tonsillar hypertrophy or exudate. Uvula midline. Airway patent. NECK: Trachea midline. No JVD or lymphadenopathy. Supple, nontender, no meningeal signs. CARDIOVASCULAR: Regular rate and rhythm without murmurs, gallops, or rubs. RESPIRATORY: Clear to auscultation. Breath sounds equal bilaterally. No wheezes , rales, or rhonchi. GASTROINTESTINAL: Abdomen soft, non-tender, nondistended. No hepato-splenomegaly , or palpable masses. No guarding. MUSCULOSKELETAL: Extremities without clubbing, cyanosis, or edema. No joint tenderness, effusion, or edema noted. No calf tenderness. Negative Homans sign bilaterally. NEUROLOGICAL: Awake and alert. Cranial nerves II through XII intact. Motor and sensory grossly within normal limits. Five out of 5 muscle strength in all muscle groups. Normal speech. Laboratory Laboratory Tests Test 12/15/17 13:35 12/15/17 14:50 White Blood Count 7.0 Red Blood Count 3.67 Hemoglobin 8.5 Hematocrit 26.7 Mean Corpuscular Volume 72.9 Mean Corpuscular Hemoglobin 23.2 Mean Corpuscular Hemoglobin Concent 31.8 Red Cell Distribution Width 18.8 Platelet Count 527 Mean Platelet Volume 7.5 Neutrophils (%) (Auto) 49.7 Lymphocytes (%) (Auto) 41.2 Monocytes (%) (Auto) 6.7 Eosinophils (%) (Auto) 0.6 Basophils (%) (Auto) 1.8 Neutrophils # (Auto) 3.5 Lymphocytes # (Auto) 2.9 Monocytes # (Auto) 0.5 Eosinophils # (Auto) 0.0 Basophils # (Auto) 0.1 CBC Comment DIFF FINAL Differential Comment Prothrombin Time 11.6 Prothromb Time International Ratio 1.1 Activated Partial Thromboplast Time 27.2 Blood Urea Nitrogen 6 Creatinine 0.51 Random Glucose 74 Total Protein 7.1 Albumin 3.2 Calcium Level 8.7 Alkaline Phosphatase 82 Aspartate Amino Transf (AST/SGOT) 11 Alanine Aminotransferase (ALT/SGPT) 12 Total Bilirubin 0.2 Sodium Level 138 Potassium Level 3.2 Chloride Level 109 Carbon Dioxide Level 29.5 Anion Gap -1 Estimat Glomerular Filtration Rate 133 Urine Color YELLOW Urine Turbidity HAZY Urine pH 6.0 Urine Specific [place] 1.046 Urine Protein 30 Urine Glucose (UA) NEG Urine Ketones NEG Urine Occult Blood NEG Urine Nitrite NEG Urine Bilirubin NEG Urine Urobilinogen LESS THAN 2.0 Urine Leukocyte Esterase NEG Urine RBC 2 Urine WBC 2 Urine Squamous Epithelial Cells 9 Urine Mucus MANY Microscopic Urinalysis Comment CULT NOT INDICATED Result Diagram: 12/15/17 1335 12/15/171334 Caprini VTE Risk Assessment Caprini VTE Risk Assessment: Mod/High Risk (score >= 2) Caprini Risk Assessment Model Point Value = 1 Point Value = 2 Point Value = 3 Point Value = 5 Age 41-60 Minor surgery BMI > 25 kg/m2 Swollen legs Varicose veins or History of unexplained or recurrent spontaneous Oral contraceptives or hormone replacement Sepsis (< 1 month) Serious lung disease, including pneumonia (< 1 month) Abnormal pulmonary function Acute myocardial infarction Congestive heart failure (< 1 month) History of inflammatory bowel disease Medical patient at bed rest Age 61-74 Arthroscopic surgery Major open surgery (> 45 min) Laparoscopic surgery (> 45 min) Malignancy Confined to bed (> 72 hours) Immobilizing plaster cast Central venous access Age >= 75 History of VTE Family history of VTE Factor V Leiden Prothrombin [id number] Lupus anticoagulant Anticardiolipin antibodies Elevated serum homocysteine Heparin-induced thrombocytopenia Other congenital or acquired thrombophilia Stroke (< 1 month) Elective arthroplasty Hip, pelvis, or leg fracture Acute spinal cord injury (< 1 month) Prophylaxis Regimen Total Risk Factor Score Risk Level Prophylaxis Regimen 0-1 Low Early ambulation 2 Moderate Order ONE of the following: *Sequential Compression Device (SCD) *Heparin 5000 units SQ BID 3-4 Higher Order ONE of the following medications: *Heparin 5000 units SQ TID *Enoxaparin/Lovenox 40 mg SQ daily (WT < 150 kg, CrCl > 30 mL/min) *Enoxaparin/Lovenox 30 mg SQ daily (WT < 150 kg, CrCl > 10-29 mL/min) *Enoxaparin/Lovenox 30 mg SQ BID (WT < 150 kg, CrCl > 30 mL/min) AND/OR *Sequential Compression Device (SCD) 5 or more Highest Order ONE of the following medications: *Heparin 5000 units SQ TID (Preferred with Epidurals) *Enoxaparin/Lovenox 40 mg SQ daily (WT < 150 kg, CrCl > 30 mL/min) *Enoxaparin/Lovenox 30 mg SQ daily (WT < 150 kg, CrCl > 10-29 mL/min) *Enoxaparin/Lovenox 30 mg SQ BID (WT < 150 kg, CrCl > 30 mL/min) AND *Sequential Compression Device (SCD) Assessment and Plan Problem List: (1) Myasthenia exacerbation ICD Code: G70.01 - Myasthenia exacerbation Status: Acute Plan: Admit the patient to the medical floor. The patient was given IVIG in the emergency department. We will continue to give IVIG 3 days. Neurology consulted. Continue Mestinon, CellCept and prednisone 5 mg p.o. daily. (2) Hypokalemia ICD Code: E87.6 - Hypokalemia Plan: Likely secondary to poor oral intake. Replace and monitor BMP. (3) Weakness ICD Code: R53.1 - Weakness Status: Acute Plan: Secondary to myasthenia gravis exacerbation. Treatment as above. (4) Status post total hip replacement, right ICD Code: Z96.641 - Presence of right artificial hip joint Status: Acute Plan: Patient had a right hip replacement for a vascular necrosis of the right hip 1 month ago. Continue pain control with Percocet. (5) Depression ICD Code: F32.9 - Depression Status: Chronic Plan: Continue citalopram. Xanax as needed for anxiety. Assessment and Plan DVT prophylaxis: SCDs, Lovenox subcutaneously. Code Status Full code Discussed Condition With Patient, RN Physician Certification 2 Midnight Certification Type: Admission for Inpatient Services Order for Inpatient Services The services are ordered in accordance with Medicare regulations or non- Medicare payer requirements, as applicable. In the case of services not specified as inpatient-only, they are appropriately provided as inpatient services in accordance with the 2-midnight benchmark. Estimated LOS (days): 2 days is the estimated time the patient will need to remain in the hospital, assuming treatment plan goals are met and no additional complications. Post-Hospital Plan: Not yet determined Problem Qualifiers (1) Depression: Qualified Codes: F32.9 - Major depressive disorder, single episode, unspecified Quique Gould MD Dec 15, 2017 17:46
[2017-12-15 17:57] VITALS: BP 92/52; PULSE 52; RESP 12; TEMP 97.7; O2SAT 100
[2017-12-15] MEDS ORDERED: ACETAMINOPHEN PO PRN (18:00)
[2017-12-15] MEDS ORDERED: BUTALBITAL PO PRN (18:00)
[2017-12-15] MEDS ORDERED: CAFFEINE PO PRN (18:00)
[2017-12-15] MEDS ORDERED: POTASSIUM CHLORIDE 10 MEQ CONTROLLED RELEASE TAB PO ONE (18:15)
[2017-12-15] MEDS: GABAPENTIN 300 MG CAP PO SCH (18:30)
[2017-12-15] MEDS: ALPRAZolam 1 MG TAB PO PRN (18:36)
[2017-12-15] MEDS: oxyCODONE/ACETAMINOPHEN 10 MG/325 MG TAB PO PRN (18:36)
[2017-12-15] MEDS: SODIUM CHLORIDE 0.9% FLUSH 10 ML FLUSH IV FLUSH SCH (21:04)
[2017-12-15] MEDS: MIDODRINE 5 MG TAB PO SCH (21:05)
[2017-12-15] MEDS: SODIUM CHLOR 0.45% 1000 ML INJ 1,000 ML IV SCH (21:05)
[2017-12-15] MEDS: DOCUSATE SODIUM 50 MG/SENNA 8.6 MG TAB PO SCH (21:05)
[2017-12-15] MEDS: MYCOPHENOLATE MOFETIL 500 MG TAB PO SCH (21:05)
[2017-12-15] MEDS ORDERED: PYRIDOSTIGMINE BROMIDE 60 MG TAB PO ONE (22:00)
[2017-12-16 00:59] VITALS: BP 81/52; PULSE 52; RESP 16; O2SAT 97
[2017-12-16] MEDS: GABAPENTIN 300 MG CAP PO SCH ×3 (01:11→16:59)
[2017-12-16] MEDS: oxyCODONE/ACETAMINOPHEN 10 MG/325 MG TAB PO PRN ×4 (01:16→21:18)
[2017-12-16] MEDS: ALPRAZolam 1 MG TAB PO PRN ×3 (04:58→21:15)
[2017-12-16] MEDS: SODIUM CHLORIDE 0.9% FLUSH 10 ML FLUSH IV FLUSH SCH ×2 (04:58→08:10)
[2017-12-16] MEDS: SODIUM CHLOR 0.45% 1000 ML INJ 1,000 ML IV SCH ×2 (04:58→21:32)
[2017-12-16 06:34] VITALS: BP 86/49; PULSE 65; RESP 16; TEMP 97.8; O2SAT 99
[2017-12-16 06:47] LABS: AUTOMATED NEUTROPHIL # 1.4 TH/MM3 (1.8-7.7); BASOPHIL # 0.1 TH/MM3 (0-0.2); BASOPHIL % 1.4 % (0.0-2.0); EOSINOPHIL # 0.1 TH/MM3 (0-0.4); EOSINOPHIL % 2.4 % (0.0-4.0); HEMOGLOBIN 7.6 GM/DL (11.6-15.3); LYMPH % 54.1 % (9.0-44.0); LYMPHOCYTE # 2.3 TH/MM3 (1.0-4.8); MEAN CELL VOLUME 73.3 FL (80.0-100.0); MEAN CORPUSCULAR HEMOGLOBIN 23.1 PG (27.0-34.0); MEAN CORPUSCULAR HGB CONC 31.5 % (32.0-36.0); MONO % 9.1 % (0.0-8.0); MONOCYTE # 0.4 TH/MM3 (0-0.9); PLATELET COUNT 296 TH/MM3 (150-450); RED BLOOD COUNT 3.28 MIL/MM3 (4.00-5.30); RED CELL DISTRIBUTION WIDTH 18.8 % (11.6-17.2); WHITE BLOOD COUNT 4.3 TH/MM3 (4.0-11.0)
[2017-12-16 07:05] LABS: ALBUMIN 2.7 GM/DL (3.4-5.0); AST (GOT) 11 U/L (15-37); BLOOD UREA NITROGEN 6 MG/DL (7-18); CALCIUM 8.1 MG/DL (8.5-10.1); CHLORIDE 111 MEQ/L (98-107); CREATININE 0.63 MG/DL (0.50-1.00); GLOMERULAR FILTRATION RATE 104 ML/MIN (>89); GLUCOSE,RANDOM 94 MG/DL (74-106); SODIUM (NA) 141 MEQ/L (136-145)
[2017-12-16 07:06] LABS: ALT (GPT) 10 U/L (10-53)
[2017-12-16 07:08] LABS: ALKALINE PHOSPHATASE 69 U/L (45-117); TOTAL BILIRUBIN ADULT 0.3 MG/DL (0.2-1.0); TOTAL PROTEIN 6.4 GM/DL (6.4-8.2)
[2017-12-16] MEDS ORDERED: PYRIDOSTIGMINE BROMIDE 60 MG TAB PO SCH (08:00)
[2017-12-16 08:01] VITALS: BP 92/55; PULSE 66; RESP 19; TEMP 98; O2SAT 96
[2017-12-16] MEDS: DOCUSATE SODIUM 50 MG/SENNA 8.6 MG TAB PO SCH ×2 (08:10→21:00)
[2017-12-16] MEDS: predniSONE 5 MG TAB PO SCH (08:10)
[2017-12-16] MEDS: ONDANSETRON HCL 4 MG/2 ML VIAL IVP PRN (08:11)
[2017-12-16] MEDS: CITALOPRAM HYDROBROMIDE 40 MG TAB PO SCH (08:11)
[2017-12-16] MEDS: MIDODRINE 5 MG TAB PO SCH ×2 (08:11→21:15)
[2017-12-16] MEDS: MYCOPHENOLATE MOFETIL 500 MG TAB PO SCH ×2 (08:11→21:15)
[2017-12-16] MEDS: ACETAMIN 325 MG/BUTALBITAL 50 MG/CAFFEINE 40 MG TAB PO PRN (09:26)
[2017-12-16] MEDS: SUMAtriptan SUCCINATE 50 MG TAB PO PRN (09:26)
--- NOTE | 2017-12-16 09:38 | MB ---
cc: Leonardo De La Fuente MD, PhD DATE OF CONSULT: 12/15/2017 REASON FOR CONSULTATION: Myasthenia gravis exacerbation. HISTORY OF PRESENT ILLNESS: Ms. Rodríguez is a 42-year-old female who has a known history of myasthenia gravis. She is normally maintained on CellCept 500 milligrams twice a day, as well as Mestinon 120 milligrams three times a day. She now reports that she has been having increasing weakness involving both upper and lower extremities for the past several days along with double vision. She denies any difficulty with breathing. No swelling difficulties. In the past, she has responded well to IVIG therapy for exacerbation, usually requiring a total of 5 treatments. PAST MEDICAL HISTORY: History of myasthenia gravis, history of avascular necrosis of the right hip, depression, hypertension, thymectomy for myasthenia gravis, bilateral tubal ligation, tonsillectomy. MEDICATIONS AT HOME: Mestinon 120 milligrams three times a day, CellCept 500 milligrams twice a day, prednisone 5 milligrams daily, citalopram 40 milligrams daily, Neurontin 300 three times a day, Imitrex as needed migraine, Midodrine 5 milligrams twice a day, Percocet and Xanax. ALLERGIES: PENICILLIN, PROMETHAZINE. PHYSICAL EXAMINATION: VITAL SIGNS: Blood pressure is 92/52, pulse 52, respiratory rate is 12, temperature is 97 degrees. NEUROLOGIC: High critical function is normal. Cranial nerves, she has got bilateral ptosis. The extraocular movements are intact. 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 Neck flexors are 4/5. Trapezius 4/5 bilaterally. Strength in the upper and lower extremities is weak at 4/5, with fatigable weakness. LABORATORY DATA: White count 7000, hemoglobin 8.5, hematocrit 26.7%, platelet count 527,000. Sodium is 138, potassium 3.2, chloride 109, CO2 29.5, BUN is 6, creatinine 5.1. GFR 133. AST 11, ALT is 12. PT 11.6, INR 1.1, APTT 27.2. UA, pH is 6, specific gravity 1.046, RBCs 2. IMPRESSION: Myasthenia gravis exacerbation. RECOMMENDATIONS: I would recommend intravenous immunoglobulin 0.4 grams per kilogram given slowly over 6-8 hours daily for a total of 5 treatments. Continue CellCept at the current dose, as well as Mestinon and the current dose of prednisone. Leonardo De La Fuente MD, PhD BOBBY/JUSTIN , 08:49 PM , 09:10 PM
[2017-12-16] MEDS: PYRIDOSTIGMINE BROMIDE 60 MG TAB PO SCH ×2 (12:25→16:59)
[2017-12-16 12:47] VITALS: BP 95/51; PULSE 57; RESP 19; TEMP 98.1; O2SAT 98
--- NOTE | 2017-12-16 13:28 | HHI.PR ---
Subjective Remarks Follow-up myasthenia gravis. Feeling slightly better but still significantly weak. Had to be assisted in getting up discussed with RN Objective Vitals Vital Signs Date Time Temp Pulse Resp B/P (MAP) Pulse Ox O2 Delivery O2 Flow Rate FiO2 12/16/17 12:47 98.1 57 19 95/51 (66) 98 12/16/17 08:01 98.0 66 19 92/55 (67) 96 12/16/17 06:34 97.8 65 16 86/49 (61) 99 12/16/17 02:09 18 12/16/17 00:59 52 16 81/52 (62) 97 12/15/17 21:21 86 18 112/70 12/15/17 17:57 97.7 52 12 92/52 (65) 100 12/15/17 15:57 48 20 120/83 I/O 12/15/17 12/15/17 12/15/17 12/16/17 12/16/17 12/16/17 07:00 15:00 23:00 07:00 15:00 23:00 Intake Total 500 ml 1000 ml Balance 500 ml 1000 ml Intake Oral 500 ml 500 ml Other 500 ml Result Diagram: 12/16/17 0548 12/16/17 0548 Objective Remarks GENERAL: This is a well-nourished, well-developed patient, in no apparent distress. SKIN: No rashes, ecchymoses or lesions. Cool and dry. CARDIOVASCULAR: Regular rate and rhythm without murmurs, gallops, or rubs. RESPIRATORY: Clear to auscultation. Breath sounds equal bilaterally. No wheezes , rales, or rhonchi. GASTROINTESTINAL: Abdomen soft, non-tender, nondistended. No guarding. MUSCULOSKELETAL: Extremities without clubbing, cyanosis, or edema. No joint tenderness, effusion, or edema noted. No calf tenderness. Negative Homans sign bilaterally. NEUROLOGICAL: Awake and alert. Cranial nerves II through XII intact. Motor and sensory grossly within normal limits. Five out of 5 muscle strength in all muscle groups. Normal speech. Procedures Non- A/P Problem List: (1) Myasthenia exacerbation ICD Code: G70.01 - Myasthenia exacerbation Status: Acute (2) Hypokalemia ICD Code: E87.6 - Hypokalemia (3) Weakness ICD Code: R53.1 - Weakness Status: Acute (4) Status post total hip replacement, right ICD Code: Z96.641 - Presence of right artificial hip joint Status: Acute (5) Depression ICD Code: F32.9 - Depression Status: Chronic Assessment and Plan (1) Myasthenia exacerbation. Stable we will continue to give IVIG for a total of 5 days per neurology Continue Mestinon, CellCept and prednisone 5 mg p.o. daily. (2) Hypokalemia Likely secondary to poor oral intake. Replace and monitor BMP. (3) Weakness Secondary to myasthenia gravis exacerbation. Treatment as above. Physical therapy evaluation (4) Status post total hip replacement, right Patient had a right hip replacement for a vascular necrosis of the right hip 1 month ago. Continue pain control with Percocet. (5) Depression. Continue citalopram. Xanax as needed for anxiety. Chronic microcytic anemia. Hemoglobin slightly lower likely secondary to benign lesion. No gross bleeding. Previous iron studies indicate iron deficiency anemia. EGD in 2016 showed GERD, hiatal hernia and gastritis. Incomplete colonoscopy secondary to poor preparation. Will monitor blood counts DVT prophylaxis: SCDs, hold Lovenox subcutaneously secondary to anemia Problem Qualifiers (1) Depression: Qualified Codes: F32.9 - Major depressive disorder, single episode, unspecified True Alejo MD Dec 16, 2017 13:28
[2017-12-16] MEDS: SODIUM CHLORID 0.9% 500 ML INJ 500 ML IV SCH (14:19)
[2017-12-16] MEDS: diphenhydrAMINE HCL 25 MG CAP PO SCH (14:23)
[2017-12-16] MEDS: ACETAMINOPHEN 325 MG TAB PO SCH (14:23)
[2017-12-16] MEDS: IMMUNE GLOBULIN INJ 20 GM in SYRINGE/BAG 1 EA IV SCH (15:33)
--- NOTE | 2017-12-16 20:41 | HHI.PR ---
Review/Management Diagnosis Myasthenia gravis exacerbation Plan recommend total of 5 treatments of plasma pheresis Diagnosis/Plan: Subjective Subjective Comments Receiving second dose of ivig today and still feels very weak. Active Medications Current Medications Medications (Trade) Dose Ordered Sig/Gómez Route Start Time Stop Time Status Last Admin (Tylenol) 650 mg Q24H PO 12/15/17 13:15 12/17/17 13:14 12/16/17 14:23 (Benadryl) 25 mg Q24H PO 12/15/17 13:15 12/17/17 13:14 12/16/17 14:23 (Benadryl Inj) 50 mg UNSCH PRN IV PUSH 12/15/17 14:15 12/18/17 14:14 (Adrenalin (1:1000) Inj) 0.3 mg Q10M PRN OTHER 12/15/17 14:15 12/18/17 14:14 Sodium Chloride 1,000 ml @ 75 mls/hr [id number] IV 12/15/17 15:31 12/16/17 04:58 (NS Flush) 2 ml UNSCH PRN IV FLUSH 12/15/17 15:45 (NS Flush) 2 ml BID IV FLUSH 12/15/17 21:00 12/16/17 08:10 (Tylenol) 650 mg Q4H PRN PO 12/15/17 15:45 (Zofran Inj) 4 mg Q6H PRN IVP 12/15/17 15:45 12/16/17 08:11 (Narcan Inj) 0.4 mg UNSCH PRN IV PUSH 12/15/17 15:45 (Bonita-Colace) 1 tab BID PO 12/15/17 21:00 12/16/17 08:10 (Milk Of Magnesia Liq) 30 ml Q12H PRN PO 12/15/17 15:45 (Senokot) 17.2 mg Q12H PRN PO 12/15/17 15:45 (Dulcolax Supp) 10 mg DAILY PRN RECTAL 12/15/17 15:45 (Lactulose Liq) 30 ml DAILY PRN PO 12/15/17 15:45 (Xanax) 1 mg Q8H PRN PO 12/15/17 18:00 12/16/17 12:24 (CeleXA) 40 mg DAILY PO 12/16/17 09:00 12/16/17 08:11 (Neurontin) 300 mg Q8H PO 12/15/17 18:00 12/16/17 16:59 (Proamatine) 5 mg BID PO 12/15/17 21:00 12/16/17 08:11 (Cellcept) 500 mg BID PO 12/15/17 21:00 12/16/17 08:11 (Percocet 10-325 Mg) 1 tab Q6H PRN PO 12/15/17 18:00 12/16/17 15:27 (Imitrex) 50 mg DAILY PRN PO 12/15/17 18:00 12/16/17 09:26 (Deltasone) 5 mg DAILY PO 12/16/17 09:00 12/16/17 08:10 (Fioricet 325-50-40) 1 tab Q6H PRN PO 12/15/17 18:30 12/16/17 09:26 (Mestinon) 120 mg TID@0600,1200,1800 PO 12/16/17 12:00 12/16/17 16:59 Allergies Allergies Coded Allergies penicillin G (Unverified Allergy, Severe, Anaphylaxis, 12/15/17) promethazine (Unverified Adverse Reaction, Severe, NAUSEOUS, 12/15/17) Review of Systems All other ROS: ROS reviewed as documented in chart Exam I&O / VS 12/16/17 12/16/17 12/17/17 15:00 23:00 07:00 Intake Total 2100 ml Output Total 1100 ml Balance 1000 ml Intake Oral 750 ml IV Total 1350 ml Output Urine Total 1100 ml Vital Signs Date Time Temp Pulse Resp B/P (MAP) Pulse Ox O2 Delivery O2 Flow Rate FiO2 12/16/17 15:33 72 18 121/72 12/16/17 12:47 98.1 57 19 95/51 (66) 98 12/16/17 08:01 98.0 66 19 92/55 (67) 96 12/16/17 06:34 97.8 65 16 86/49 (61) 99 12/16/17 02:09 18 12/16/17 00:59 52 16 81/52 (62) 97 12/15/17 21:21 86 18 112/70 General: Alert and Oriented, No acute distress Eye: PERRL, EOMI, Normal conjuctiva Respiratory: Lungs CTA, Non-labored respirations, Symmetrical expansion Cardiology: Normal rate, Intact pulses, Regular Rhythm Musculoskeletal: ROM, Swelling, No calf tenderness Neurologic: Alert, Oriented, Normal motor, No focal defects, CN II-XII intact, Normal DTR's Psychiatric: Cooperative, Appropriate mood & affect, Normal judgement Exam Comments alert, speech normal CN--mild bilateral ptosis. EOM intact MOTOR 4/5 BUE and BLE Objective Micro and Labs Laboratory Tests Test 12/16/17 05:48 White Blood Count 4.3 Red Blood Count 3.28 Hemoglobin 7.6 Hematocrit 24.0 Mean Corpuscular Volume 73.3 Mean Corpuscular Hemoglobin 23.1 Mean Corpuscular Hemoglobin Concent 31.5 Red Cell Distribution Width 18.8 Platelet Count 296 Mean Platelet Volume 8.0 Neutrophils (%) (Auto) 33.0 Lymphocytes (%) (Auto) 54.1 Monocytes (%) (Auto) 9.1 Eosinophils (%) (Auto) 2.4 Basophils (%) (Auto) 1.4 Neutrophils # (Auto) 1.4 Lymphocytes # (Auto) 2.3 Monocytes # (Auto) 0.4 Eosinophils # (Auto) 0.1 Basophils # (Auto) 0.1 CBC Comment DIFF FINAL Differential Comment Blood Urea Nitrogen 6 Creatinine 0.63 Random Glucose 94 Total Protein 6.4 Albumin 2.7 Calcium Level 8.1 Alkaline Phosphatase 69 Aspartate Amino Transf (AST/SGOT) 11 Alanine Aminotransferase (ALT/SGPT) 10 Total Bilirubin 0.3 Sodium Level 141 Potassium Level 3.4 Chloride Level 111 Carbon Dioxide Level 28.0 Anion Gap 2 Estimat Glomerular Filtration Rate 104 Leonardo De La Fuente MD PhD Dec 16, 2017 20:41
[2017-12-16] MEDS ORDERED: POTASSIUM CHLORIDE 10 MEQ CONTROLLED RELEASE TAB PO ONE (21:00)
--- NOTE | 2017-12-16 21:45 | EKG ---
Date Performed: 12/15/2017 Time Performed: 14:22:44 PTAGE: 42 years EKG: SINUS BRADYCARDIA LEFT ATRIAL ENLARGEMENT ABNORMAL ECG PREVIOUS TRACING : 10/27/2017 08.37 Compared to previous tracing, heart rate has decreased. DOCTOR: Jono Iglesias Interpretating Date/Time 12/16/2017 21:43:39
[2017-12-17] VITALS (7 sets, daily range): BP systolic 77–92; BP diastolic 40–60; PULSE 56–78; RESP 16–20; TEMP 96.6–98; O2SAT 96–100
[2017-12-17] MEDS: GABAPENTIN 300 MG CAP PO SCH ×3 (01:47→18:40)
[2017-12-17] MEDS: oxyCODONE/ACETAMINOPHEN 10 MG/325 MG TAB PO PRN ×3 (03:44→20:59)
[2017-12-17] MEDS: ALPRAZolam 1 MG TAB PO PRN ×3 (05:02→23:02)
[2017-12-17] MEDS: PYRIDOSTIGMINE BROMIDE 60 MG TAB PO SCH ×3 (05:02→18:39)
--- NOTE | 2017-12-17 08:59 | HHI.PR ---
Subjective Remarks Myasthenia gravis. States she is still feeling weak but improving tolerating IVIG discussed with neurology Objective Vitals Vital Signs Date Time Temp Pulse Resp B/P (MAP) Pulse Ox O2 Delivery O2 Flow Rate FiO2 12/17/17 07:32 97.7 73 20 90/54 (66) 100 12/17/17 02:47 98.0 68 18 91/46 (61) 96 12/16/17 21:25 72 18 121/72 12/16/17 15:33 72 18 121/72 12/16/17 12:47 98.1 57 19 95/51 (66) 98 I/O 12/16/17 12/16/17 12/16/17 12/17/17 12/17/17 12/17/17 07:00 15:00 23:00 07:00 15:00 23:00 Intake Total 1000 ml 2300 ml 500 ml Output Total 1100 ml Balance 1000 ml 1200 ml 500 ml Intake Oral 500 ml 750 ml IV Total 1550 ml 500 ml Other 500 ml Output Urine Total 1100 ml Result Diagram: 12/16/17 0548 12/16/17 0548 Objective Remarks GENERAL: This is a well-nourished, well-developed patient, in no apparent distress. SKIN: No rashes, ecchymoses or lesions. Cool and dry. CARDIOVASCULAR: Regular rate and rhythm without murmurs, gallops, or rubs. RESPIRATORY: Clear to auscultation. Breath sounds equal bilaterally. No wheezes , rales, or rhonchi. GASTROINTESTINAL: Abdomen soft, non-tender, nondistended. No guarding. MUSCULOSKELETAL: Extremities without clubbing, cyanosis, or edema. No joint tenderness, effusion, or edema noted. No calf tenderness. Negative Homans sign bilaterally. NEUROLOGICAL: Awake and alert. Cranial nerves II through XII intact except for slight ptosis left eye. Motor and sensory grossly within normal limits. Five out of 5 muscle strength in all muscle groups. Normal speech. Procedures Non- A/P Problem List: (1) Myasthenia exacerbation ICD Code: G70.01 - Myasthenia exacerbation Status: Acute (2) Hypokalemia ICD Code: E87.6 - Hypokalemia (3) Weakness ICD Code: R53.1 - Weakness Status: Acute (4) Status post total hip replacement, right ICD Code: Z96.641 - Presence of right artificial hip joint Status: Acute (5) Depression ICD Code: F32.9 - Depression Status: Chronic Assessment and Plan (1) Myasthenia exacerbation. Stable we will continue to give IVIG for a total of 5 days til 12/20 per neurology Continue Mestinon, CellCept and prednisone 5 mg p.o. daily. (2) Hypokalemia Likely secondary to poor oral intake. Replace and monitor BMP. (3) Weakness Secondary to myasthenia gravis exacerbation. Treatment as above. Physical therapy evaluation (4) Status post total hip replacement, right Patient had a right hip replacement for a vascular necrosis of the right hip 1 month ago. Continue pain control with Percocet. (5) Depression. Continue citalopram. Xanax as needed for anxiety. Chronic microcytic anemia. Previous iron studies indicate iron deficiency anemia. EGD in 2016 showed GERD, hiatal hernia and gastritis. Incomplete colonoscopy secondary to poor preparation. Stable will monitor blood counts Hypotension acute on chronic. Fluid bolus 1. Continue IV hydration and increase ProAmatine. DVT prophylaxis: SCDs, hold Lovenox subcutaneously secondary to anemia Problem Qualifiers (1) Depression: Qualified Codes: F32.9 - Major depressive disorder, single episode, unspecified True Alejo MD Dec 17, 2017 08:59
[2017-12-17] MEDS: SODIUM CHLORIDE 0.9% FLUSH 10 ML FLUSH IV FLUSH SCH ×2 (09:30→21:00)
[2017-12-17] MEDS: CITALOPRAM HYDROBROMIDE 40 MG TAB PO SCH (09:31)
[2017-12-17] MEDS: MYCOPHENOLATE MOFETIL 500 MG TAB PO SCH ×2 (09:31→20:59)
[2017-12-17] MEDS: DOCUSATE SODIUM 50 MG/SENNA 8.6 MG TAB PO SCH ×2 (09:31→21:00)
[2017-12-17] MEDS: MIDODRINE 5 MG TAB PO SCH ×2 (09:32→18:40)
[2017-12-17] MEDS: predniSONE 5 MG TAB PO SCH (09:32)
[2017-12-17] MEDS: SODIUM CHLOR 0.45% 1000 ML INJ 1,000 ML IV SCH ×2 (10:08→20:51)
[2017-12-17 10:12] LABS: AUTOMATED NEUTROPHIL # 1.1 TH/MM3 (1.8-7.7); BASOPHIL # 0.1 TH/MM3 (0-0.2); BASOPHIL % 1.2 % (0.0-2.0); EOSINOPHIL # 0.2 TH/MM3 (0-0.4); HEMATOCRIT 24.3 % (35.0-46.0); HEMOGLOBIN 7.8 GM/DL (11.6-15.3); LYMPH % 59.3 % (9.0-44.0); LYMPHOCYTE # 2.5 TH/MM3 (1.0-4.8); MEAN CELL VOLUME 73.3 FL (80.0-100.0); MEAN CORPUSCULAR HEMOGLOBIN 23.5 PG (27.0-34.0); MEAN PLATELET VOLUME 7.8 FL (7.0-11.0); MONO % 10.8 % (0.0-8.0); MONOCYTE # 0.5 TH/MM3 (0-0.9); NEUT % 24.7 % (16.0-70.0); PLATELET COUNT 261 TH/MM3 (150-450); RED BLOOD COUNT 3.32 MIL/MM3 (4.00-5.30); RED CELL DISTRIBUTION WIDTH 18.7 % (11.6-17.2); WHITE BLOOD COUNT 4.3 TH/MM3 (4.0-11.0)
[2017-12-17 10:35] LABS: BICARBONATE 31.4 MEQ/L (21.0-32.0); CALCIUM 8.7 MG/DL (8.5-10.1); CREATININE 0.53 MG/DL (0.50-1.00); MAGNESIUM 1.8 MG/DL (1.5-2.5)
--- NOTE | 2017-12-17 13:03 | HHI.PR ---
Review/Management Diagnosis Myasthenia gravis exacerbation Plan recommend total of 5 treatments of plasma pheresis Diagnosis/Plan: Subjective Subjective Comments No acute events reported feels strength is improving tolerating ivig well Active Medications Current Medications Medications (Trade) Dose Ordered Sig/Gómez Route Start Time Stop Time Status Last Admin (Benadryl Inj) 50 mg UNSCH PRN IV PUSH 12/15/17 14:15 12/20/17 23:59 (Adrenalin (1:1000) Inj) 0.3 mg Q10M PRN OTHER 12/15/17 14:15 12/20/17 23:59 Sodium Chloride 1,000 ml @ 75 mls/hr [id number] IV 12/15/17 15:31 12/17/17 10:08 (NS Flush) 2 ml UNSCH PRN IV FLUSH 12/15/17 15:45 (NS Flush) 2 ml BID IV FLUSH 12/15/17 21:00 12/16/17 08:10 (Tylenol) 650 mg Q4H PRN PO 12/15/17 15:45 (Zofran Inj) 4 mg Q6H PRN IVP 12/15/17 15:45 12/16/17 08:11 (Narcan Inj) 0.4 mg UNSCH PRN IV PUSH 12/15/17 15:45 (Bonita-Colace) 1 tab BID PO 12/15/17 21:00 12/16/17 08:10 (Milk Of Magnesia Liq) 30 ml Q12H PRN PO 12/15/17 15:45 (Senokot) 17.2 mg Q12H PRN PO 12/15/17 15:45 (Dulcolax Supp) 10 mg DAILY PRN RECTAL 12/15/17 15:45 (Lactulose Liq) 30 ml DAILY PRN PO 12/15/17 15:45 (Xanax) 1 mg Q8H PRN PO 12/15/17 18:00 12/17/17 05:02 (CeleXA) 40 mg DAILY PO 12/16/17 09:00 12/17/17 09:31 (Neurontin) 300 mg Q8H PO 12/15/17 18:00 12/17/17 10:07 (Proamatine) 5 mg BID PO 12/15/17 21:00 3/9/18 09:32 (Cellcept) 500 mg BID PO 12/15/17 21:00 12/17/17 09:31 (Percocet 10-325 Mg) 1 tab Q6H PRN PO 12/15/17 18:00 12/17/17 10:07 (Imitrex) 50 mg DAILY PRN PO 12/15/17 18:00 12/16/17 09:26 (Deltasone) 5 mg DAILY PO 12/16/17 09:00 12/17/17 09:32 (Fioricet 325-50-40) 1 tab Q6H PRN PO 12/15/17 18:30 12/16/17 09:26 (Mestinon) 120 mg TID@0600,1200,1800 PO 12/16/17 12:00 12/17/17 12:34 Immune Globulin 20 gm/Syringe / Bag 200 ml @ 16.08 mls/ hr Q24H IV 12/17/17 14:00 12/20/17 02:27 (Tylenol) 650 mg Q24H PO 12/17/17 13:00 12/19/17 13:01 (Benadryl) 25 mg Q24H PO 12/17/17 13:00 12/19/17 13:01 Allergies Allergies Coded Allergies penicillin G (Unverified Allergy, Severe, Anaphylaxis, 12/15/17) promethazine (Unverified Adverse Reaction, Severe, NAUSEOUS, 12/15/17) Review of Systems All other ROS: ROS reviewed as documented in chart Exam I&O / VS Vital Signs Date Time Temp Pulse Resp B/P (MAP) Pulse Ox O2 Delivery O2 Flow Rate FiO2 12/17/17 12:46 98.0 61 20 87/43 (58) 99 12/17/17 07:32 97.7 73 20 90/54 (66) 100 12/17/17 02:47 98.0 68 18 91/46 (61) 96 12/16/17 21:25 72 18 121/72 12/16/17 15:33 72 18 121/72 General: Alert and Oriented, No acute distress Eye: PERRL, EOMI, Normal conjuctiva Respiratory: Lungs CTA, Non-labored respirations, Symmetrical expansion Cardiology: Normal rate, Intact pulses, Regular Rhythm Musculoskeletal: ROM, Swelling, No calf tenderness Neurologic: Alert, Oriented, Normal motor, No focal defects, CN II-XII intact, Normal DTR's Psychiatric: Cooperative, Appropriate mood & affect, Normal judgement Exam Comments alert, speech normal CN--mild bilateral ptosis. EOM intact MOTOR 4/5 BUE and BLE Objective Micro and Labs Laboratory Tests Test 12/17/17 09:40 White Blood Count 4.3 Red Blood Count 3.32 Hemoglobin 7.8 Hematocrit 24.3 Mean Corpuscular Volume 73.3 Mean Corpuscular Hemoglobin 23.5 Mean Corpuscular Hemoglobin Concent 32.0 Red Cell Distribution Width 18.7 Platelet Count 261 Mean Platelet Volume 7.8 Neutrophils (%) (Auto) 24.7 Lymphocytes (%) (Auto) 59.3 Monocytes (%) (Auto) 10.8 Eosinophils (%) (Auto) 4.0 Basophils (%) (Auto) 1.2 Neutrophils # (Auto) 1.1 Lymphocytes # (Auto) 2.5 Monocytes # (Auto) 0.5 Eosinophils # (Auto) 0.2 Basophils # (Auto) 0.1 CBC Comment DIFF FINAL Differential Comment Blood Urea Nitrogen 3 Creatinine 0.53 Random Glucose 86 Calcium Level 8.7 Magnesium Level 1.8 Sodium Level 142 Potassium Level 4.0 Chloride Level 110 Carbon Dioxide Level 31.4 Anion Gap 1 Estimat Glomerular Filtration Rate 127 Leonardo De La Fuente MD PhD Dec 17, 2017 13:03
[2017-12-17] MEDS: ACETAMINOPHEN 325 MG TAB PO SCH (13:51)
[2017-12-17] MEDS: diphenhydrAMINE HCL 25 MG CAP PO SCH (13:52)
[2017-12-17] MEDS: IMMUNE GLOBULIN INJ 20 GM in SYRINGE/BAG 1 EA IV SCH (15:40)
[2017-12-17] MEDS ORDERED: SODIUM CHLORID 0.9% 500 ML INJ 500 ML IV ONE (16:30)
[2017-12-18] VITALS: BP 90/51; PULSE 80; RESP 17; TEMP 96.3; O2SAT 94
[2017-12-18] MEDS: SODIUM CHLOR 0.45% 1000 ML INJ 1,000 ML IV SCH ×3 (00:10→20:35)
[2017-12-18] MEDS: GABAPENTIN 300 MG CAP PO SCH ×4 (02:56→23:46)
[2017-12-18 04:00] VITALS: BP 101/51; PULSE 83; RESP 17; TEMP 97.2; O2SAT 98
[2017-12-18] MEDS: oxyCODONE/ACETAMINOPHEN 10 MG/325 MG TAB PO PRN ×4 (04:08→23:46)
[2017-12-18] MEDS: PYRIDOSTIGMINE BROMIDE 60 MG TAB PO SCH ×3 (04:09→18:05)
[2017-12-18] MEDS: ALPRAZolam 1 MG TAB PO PRN ×3 (07:01→23:45)
--- NOTE | 2017-12-18 07:58 | HHI.PR ---
Subjective Remarks awake and alert good po- having breakfast very interactive voiding + BM- dneies any melena or hematochezia Objective Vitals Vital Signs Date Time Temp Pulse Resp B/P (MAP) Pulse Ox O2 Delivery O2 Flow Rate FiO2 12/18/17 04:00 97.2 83 17 101/51 (68) 98 12/18/17 00:00 96.3 80 17 90/51 (64) 94 12/17/17 21:09 92/50 (64) 12/17/17 20:47 96.6 78 16 80/60 (67) 97 12/17/17 18:35 98.0 56 16 77/40 (52) 99 12/17/17 16:00 98.0 57 16 77/43 (54) 97 12/17/17 15:40 57 16 88/62 12/17/17 12:46 98.0 61 20 87/43 (58) 99 I/O 12/17/17 12/17/17 12/17/17 12/18/17 12/18/17 12/18/17 07:00 15:00 23:00 07:00 15:00 23:00 Intake Total 500 ml 2260 ml Balance 500 ml 2260 ml Intake Oral 760 ml IV Total 500 ml 1500 ml # Voids 4 Result Diagram: 12/17/1740 12/17/17939 Objective Remarks awake and alert, interactive anicteric lungs- clear regular rhythm abdomen soft extremities moves all spontaneouly- feels stronger Procedures Non- A/P Problem List: (1) Myasthenia exacerbation ICD Code: G70.01 - Myasthenia exacerbation Status: Acute (2) Hypokalemia ICD Code: E87.6 - Hypokalemia (3) Weakness ICD Code: R53.1 - Weakness Status: Acute (4) Status post total hip replacement, right ICD Code: Z96.641 - Presence of right artificial hip joint Status: Acute (5) Depression ICD Code: F32.9 - Depression Status: Chronic Assessment and Plan Assessment and Plan (1) Myasthenia exacerbation. Stable we will continue to give IVIG for a total of 5 days til 12/20 per neurology Continue Mestinon, CellCept and prednisone 5 mg p.o. daily. (2) Hypokalemia Likely secondary to poor oral intake.- improved Replace and monitor BMP.- recheck today (3) Weakness Secondary to myasthenia gravis exacerbation. Treatment as above. 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 Continue pain control with Percocet. PT (5) Depression. Continue citalopram. Xanax as needed for anxiety. 5. Chronic microcytic anemia. Previous iron studies indicate iron deficiency anemia 09/09/2017 - Iron 6 . EGD in 2016 showed GERD, hiatal hernia and gastritis. Incomplete colonoscopy secondary to poor preparation. recheck iron studies now start Iron supplements- check levels now- consider IV iron start PPI Hypotension acute on chronic. increase ProAmatine. DVT prophylaxis: SCDs, hold Lovenox subcutaneously secondary to anemia Problem Qualifiers (1) Depression: Qualified Codes: F32.9 - Major depressive disorder, single episode, unspecified Clemencia Martines MD Dec 18, 2017 07:58
[2017-12-18 08:00] VITALS: BP 88/44; PULSE 66; RESP 14; TEMP 96.3; O2SAT 97
[2017-12-18 08:15] VITALS: BP 94/56
[2017-12-18] MEDS: SODIUM CHLORIDE 0.9% FLUSH 10 ML FLUSH IV FLUSH SCH ×2 (08:30→20:34)
[2017-12-18] MEDS: DOCUSATE SODIUM 50 MG/SENNA 8.6 MG TAB PO SCH ×2 (08:41→20:35)
[2017-12-18] MEDS: PANTOPRAZOLE SOD 40 MG DELAYED RELEASE TAB PO SCH (08:42)
[2017-12-18] MEDS: MIDODRINE 5 MG TAB PO SCH ×3 (08:42→18:02)
[2017-12-18] MEDS: predniSONE 5 MG TAB PO SCH (08:43)
[2017-12-18] MEDS: CITALOPRAM HYDROBROMIDE 40 MG TAB PO SCH (08:43)
[2017-12-18] MEDS: MYCOPHENOLATE MOFETIL 500 MG TAB PO SCH ×2 (08:43→20:35)
[2017-12-18 09:48] LABS: IRON (FE) 12 MCG/DL (50-170)
[2017-12-18 09:56] LABS: % SATURATION IRON PROFILE 3.8 % (20-50); FERRITIN 6 NG/ML (8-252); TOTAL IRON BINDING CAPACITY 318 MCG/DL (250-450)
[2017-12-18] MEDS: SUMAtriptan SUCCINATE 50 MG TAB PO PRN (10:17)
[2017-12-18] MEDS: ACETAMIN 325 MG/BUTALBITAL 50 MG/CAFFEINE 40 MG TAB PO PRN ×2 (10:17→20:36)
[2017-12-18 12:00] VITALS: BP 105/53; PULSE 65; RESP 16; TEMP 97.1; O2SAT 97
[2017-12-18 13:06] LABS: BICARBONATE 29.9 MEQ/L (21.0-32.0); BLOOD UREA NITROGEN 6 MG/DL (7-18); CALCIUM 9.2 MG/DL (8.5-10.1); CHLORIDE 105 MEQ/L (98-107); CREATININE 0.61 MG/DL (0.50-1.00); GLOMERULAR FILTRATION RATE 108 ML/MIN (>89); GLUCOSE,RANDOM 77 MG/DL (74-106); SODIUM (NA) 138 MEQ/L (136-145)
[2017-12-18] MEDS: ACETAMINOPHEN 325 MG TAB PO SCH (13:06)
[2017-12-18] MEDS: diphenhydrAMINE HCL 25 MG CAP PO SCH (13:07)
[2017-12-18] MEDS: FERROUS SULFATE 325 MG (65 MG ELEMENTAL IRON) TAB PO SCH ×2 (13:07→18:02)
[2017-12-18] MEDS: IMMUNE GLOBULIN INJ 20 GM in SYRINGE/BAG 1 EA IV SCH (15:04)
[2017-12-18] MEDS ORDERED: IRON SUCROSE INJ 200 MG in SODIUM CHLORIDE 0.9% INJ 100 ML IV ONE (17:00)
[2017-12-18 20:00] VITALS: BP 95/52; PULSE 59; RESP 16; TEMP 97.8; O2SAT 99
[2017-12-19 00:28] VITALS: BP 88/54; PULSE 65; RESP 16; TEMP 96.6; O2SAT 96
[2017-12-19] MEDS: PYRIDOSTIGMINE BROMIDE 60 MG TAB PO SCH ×3 (05:10→17:52)
[2017-12-19] MEDS: ACETAMIN 325 MG/BUTALBITAL 50 MG/CAFFEINE 40 MG TAB PO PRN ×2 (05:10→22:31)
[2017-12-19] MEDS: oxyCODONE/ACETAMINOPHEN 10 MG/325 MG TAB PO PRN ×3 (05:35→18:47)
[2017-12-19 08:00] VITALS: BP 94/52; PULSE 63; RESP 16; TEMP 96.7; O2SAT 97
[2017-12-19] MEDS: CITALOPRAM HYDROBROMIDE 40 MG TAB PO SCH (08:04)
[2017-12-19] MEDS: PANTOPRAZOLE SOD 40 MG DELAYED RELEASE TAB PO SCH (08:04)
[2017-12-19] MEDS: ALPRAZolam 1 MG TAB PO PRN ×2 (08:05→16:14)
[2017-12-19] MEDS: predniSONE 5 MG TAB PO SCH (08:05)
[2017-12-19] MEDS: MYCOPHENOLATE MOFETIL 500 MG TAB PO SCH ×2 (08:05→22:19)
[2017-12-19] MEDS: DOCUSATE SODIUM 50 MG/SENNA 8.6 MG TAB PO SCH ×2 (08:05→21:00)
[2017-12-19] MEDS: MIDODRINE 5 MG TAB PO SCH ×4 (08:11→17:52)
[2017-12-19] MEDS: SUMAtriptan SUCCINATE 50 MG TAB PO PRN (08:19)
[2017-12-19] MEDS: SODIUM CHLORIDE 0.9% FLUSH 10 ML FLUSH IV FLUSH SCH ×2 (08:22→21:00)
[2017-12-19] MEDS: GABAPENTIN 300 MG CAP PO SCH ×2 (09:54→17:52)
--- NOTE | 2017-12-19 10:34 | RADRPT ---
EXAM DATE/TIME: 12/19/2017 10:11 [facility] COMPARISON: HIP RIGHT (AP&LAT 2/3VWS) W AP PELVIS, September 07, 2017, 16:49. INDICATIONS : Right hip pain, post fall MEDICAL HISTORY : myasthenia gravis, migraines, anemia, depression, C-diff SURGICAL HISTORY : thymus removed, left chest port, blood transfusions ENCOUNTER: Initial ACUITY: 1 day PAIN SCORE: 6/10 LOCATION: Left hip FINDINGS: Examination of the right hip was performed with AP Pelvis. A right hip replacement is noted. The pros thesis remains satisfactory alignment without evidence of loosening or dislocation. Acetabulum and proximal femur are intact without evidence of acute fracture. There are no soft tissue abnormalities. CONCLUSION: Intact right hip prosthesis No evidence of fracture or dislocation. Damon Hammonds MD on December 19, 2017 at 10:31 Board Certified Radiologist. This report was verified electronically.
[2017-12-19 12:00] VITALS: BP 108/60; PULSE 81; RESP 16; TEMP 98; O2SAT 97
[2017-12-19] MEDS: FERROUS SULFATE 325 MG (65 MG ELEMENTAL IRON) TAB PO SCH ×2 (12:39→16:14)
--- NOTE | 2017-12-19 12:41 | HHI.PR ---
Subjective Remarks feels stronger moves all extremities spontaenously good strength on exam no nuasea or vomiting denies any melena or hemaotchezia Objective Vitals Vital Signs Date Time Temp Pulse Resp B/P (MAP) Pulse Ox O2 Delivery O2 Flow Rate FiO2 12/19/17 12:00 98.0 81 16 108/60 (76) 97 12/19/17 08:00 96.7 63 16 94/52 (66) 97 12/19/17 00:28 96.6 65 16 88/54 (65) 96 12/18/17 20:00 97.8 59 16 95/52 (66) 99 12/18/17 15:04 57 16 104/46 I/O 12/18/17 12/18/17 12/18/17 12/19/17 12/19/17 12/19/17 07:00 15:00 23:00 07:00 15:00 23:00 Intake Total 2260 ml 1000 ml 1910 ml 720 ml 0 ml Balance 2260 ml 1000 ml 1910 ml 720 ml 0 ml Intake Oral 760 ml 800 ml 720 ml IV Total 1500 ml 1000 ml 1110 ml 0 ml # Voids 4 4 2 # Bowel Movements 0 Result Diagram: 12/17/17 0940 12/18/17 0835 Imaging Last Impressions Hip and Pelvis X-Ray 12/19/17 0000 Signed Impressions: Service Date/Time: Tuesday, December 19, 2017 10:11 - CONCLUSION: Intact right hip prosthesis No evidence of fracture or dislocation. Damon Hammonds MD Objective Remarks awake and alert,no acute distress anicteric lungs- clear regular rhythm abdomen soft extremities moves all spontaneouly- feels stronger 5/5 strength Procedures Non- A/P Problem List: (1) Myasthenia exacerbation ICD Code: G70.01 - Myasthenia exacerbation Status: Acute (2) Hypokalemia ICD Code: E87.6 - Hypokalemia (3) Weakness ICD Code: R53.1 - Weakness Status: Acute (4) Status post total hip replacement, right ICD Code: Z96.641 - Presence of right artificial hip joint Status: Acute (5) Depression ICD Code: F32.9 - Depression Status: Chronic Assessment and Plan Assessment and Plan (1) Myasthenia exacerbation. Stable we will continue to give IVIG for a total of 5 days per neurology Continue Mestinon, CellCept and prednisone 5 mg p.o. daily. on DC (2) Hypokalemia Likely secondary to poor oral intake.- improved (3) Weakness Secondary to myasthenia gravis exacerbation. Treatment as above. 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 Continue pain control with Percocet. PT (5) Depression. Continue citalopram. Xanax as needed for anxiety. 5. Chronic microcytic anemia. iron deficiency anemia . EGD in 2016 showed GERD, hiatal hernia and gastritis. Incomplete colonoscopy secondary to poor preparation. S/P IV sucrose start PPI, po Ferrous sulfate 325 mg po bid FF up wiht PCP Hypotension acute on chronic. increase ProAmatine. CM consider- home with home PT, nursing DVT prophylaxis: SCDs, hold Lovenox subcutaneously secondary to anemia Problem Qualifiers (1) Depression: Qualified Codes: F32.9 - Major depressive disorder, single episode, unspecified Clemencia Martines MD Dec 19, 2017 12:41
[2017-12-19] MEDS ORDERED: FERR325T20 PO (12:44)
[2017-12-19] MEDS: SODIUM CHLOR 0.45% 1000 ML INJ 1,000 ML IV SCH (12:51)
[2017-12-19] MEDS: diphenhydrAMINE HCL 25 MG CAP PO SCH (13:00)
[2017-12-19] MEDS: ACETAMINOPHEN 325 MG TAB PO SCH (13:00)
[2017-12-19] MEDS: IMMUNE GLOBULIN INJ 20 GM in SYRINGE/BAG 1 EA IV SCH (14:41)
[2017-12-19 16:00] VITALS: BP 103/56; PULSE 68; RESP 16; TEMP 97.6; O2SAT 98
[2017-12-19 20:00] VITALS: BP_SYST 101; BP_SYST 132; BP_DIAS 62; BP_DIAS 69; PULSE 113; PULSE 61; RESP 16; RESP 18; TEMP 96.3; TEMP 97; O2SAT 93; O2SAT 95
[2017-12-20] VITALS (7 sets, daily range): BP systolic 92–120; BP diastolic 51–79; PULSE 61–104; RESP 16–20; TEMP 96.4–97.6; O2SAT 97–100
[2017-12-20] MEDS: oxyCODONE/ACETAMINOPHEN 10 MG/325 MG TAB PO PRN ×4 (00:33→18:21)
[2017-12-20] MEDS: ALPRAZolam 1 MG TAB PO PRN ×3 (00:33→16:43)
[2017-12-20] MEDS: GABAPENTIN 300 MG CAP PO SCH ×3 (00:33→16:43)
[2017-12-20] MEDS: SODIUM CHLOR 0.45% 1000 ML INJ 1,000 ML IV SCH ×2 (00:34→11:19)
[2017-12-20] MEDS: PYRIDOSTIGMINE BROMIDE 60 MG TAB PO SCH ×3 (04:20→18:23)
[2017-12-20] MEDS: SUMAtriptan SUCCINATE 50 MG TAB PO PRN (06:33)
[2017-12-20] MEDS: SODIUM CHLORIDE 0.9% FLUSH 10 ML FLUSH IV FLUSH SCH ×2 (07:52→19:32)
[2017-12-20] MEDS: ACETAMIN 325 MG/BUTALBITAL 50 MG/CAFFEINE 40 MG TAB PO PRN ×3 (08:34→20:46)
[2017-12-20] MEDS: MIDODRINE 5 MG TAB PO SCH ×3 (08:34→16:43)
[2017-12-20] MEDS: PANTOPRAZOLE SOD 40 MG DELAYED RELEASE TAB PO SCH (08:34)
[2017-12-20] MEDS: predniSONE 5 MG TAB PO SCH (08:34)
[2017-12-20] MEDS: CITALOPRAM HYDROBROMIDE 40 MG TAB PO SCH (08:35)
[2017-12-20] MEDS: DOCUSATE SODIUM 50 MG/SENNA 8.6 MG TAB PO SCH ×2 (08:35→19:34)
[2017-12-20] MEDS: MYCOPHENOLATE MOFETIL 500 MG TAB PO SCH ×2 (08:35→19:34)
--- NOTE | 2017-12-20 08:40 | HHI.PR ---
Subjective Remarks awake and alert, emotional states does not feel as strong "I know myself very well" no dizziness, ambulating appears comfortable - no pain complains Objective Vitals Vital Signs Date Time Temp Pulse Resp B/P (MAP) Pulse Ox O2 Delivery O2 Flow Rate FiO2 12/20/17 08:00 96.6 68 17 113/61 (78) 100 12/20/17 00:41 97.0 92 16 107/62 (77) 97 12/19/17 20:00 97.0 61 16 101/62 (75) 95 12/19/17 16:00 97.6 68 16 103/56 (72) 98 12/19/17 14:41 73 16 103/56 12/19/17 12:00 98.0 81 16 108/60 (76) 97 I/O 12/19/17 12/19/17 12/19/17 12/20/17 12/20/17 12/20/17 06:59 14:59 22:59 06:59 14:59 22:59 Intake Total 720 ml 0 ml 1200 ml 1090 ml Balance 720 ml 0 ml 1200 ml 1090 ml Intake Oral 720 ml 1200 ml 240 ml IV Total 0 ml 850 ml # Voids 2 5 2 # Bowel Movements 0 Result Diagram: 12/17/17 0940 12/18/17 0835 Imaging Last Impressions Hip and Pelvis X-Ray 12/19/17 0000 Signed Impressions: Service Date/Time: Tuesday, December 19, 2017 10:11 - CONCLUSION: Intact right hip prosthesis No evidence of fracture or dislocation. Damon Hammonds MD Objective Remarks awake and alert,no acute distress anicteric lungs- clear regular rhythm abdomen soft extremities moves all spontaneously- 5/5 on exam good muscle tone gait steady no sensory deficits A/P Problem List: (1) Myasthenia exacerbation ICD Code: G70.01 - Myasthenia exacerbation Status: Acute (2) Hypokalemia ICD Code: E87.6 - Hypokalemia (3) Weakness ICD Code: R53.1 - Weakness Status: Acute (4) Status post total hip replacement, right ICD Code: Z96.641 - Presence of right artificial hip joint Status: Acute (5) Depression ICD Code: F32.9 - Depression Status: Chronic Assessment and Plan Assessment and Plan (1) Myasthenia exacerbation. Stable we will continue to give IVIG for a total of 5 days per neurology- last dose this am Continue Mestinon, CellCept and prednisone 5 mg p.o. daily. will inform Neurology- see if need any further treatment DC planning- Neurology ff- only if cleared by them (2) Hypokalemia Likely secondary to poor oral intake.- improved (3) Weakness Secondary to myasthenia gravis exacerbation. Treatment as above. 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 Continue pain control with Percocet. PT (5) Depression. Anxiety componenet Continue citalopram. Xanax as needed for anxiety. 5. Chronic microcytic anemia. iron deficiency anemia . EGD in 2015 showed GERD, hiatal hernia and gastritis. Incomplete colonoscopy secondary to poor preparation. S/P IV sucrose started PPI, po Ferrous sulfate 325 mg po bid FF up with PCP dietitian consult- Iron rich food counselling Hypotension chronic. on ProAmatine. - up and ambulating no dizziness CM home with home PT, - will ask CM to assist- had Seth before DVT prophylaxis: SCDs, hold Lovenox subcutaneously secondary to anemia Patient wants to see dr. De La Fuente or neurology prior to being DC Problem Qualifiers (1) Depression: Qualified Codes: F32.9 - Major depressive disorder, single episode, unspecified Clemencia Martines MD Dec 20, 2017 08:40
[2017-12-20] MEDS: FERROUS SULFATE 325 MG (65 MG ELEMENTAL IRON) TAB PO SCH ×2 (12:29→16:43)
[2017-12-20] MEDS: ONDANSETRON HCL 4 MG/2 ML VIAL IVP PRN ×2 (14:54→20:47)
[2017-12-20] MEDS ORDERED: NS 500 ML Pre-hydration IV SCH (15:15)
[2017-12-20] MEDS ORDERED: DIPHENHYDRAMINE HCL 50 MG/ML VIAL Reaction Med IV PUSH PRN (16:00)
[2017-12-20] MEDS ORDERED: ACETAMINOPHEN 325 MG TAB Pre-med PO ONE (16:00)
[2017-12-20] MEDS ORDERED: D5W as prime bag (IVIG as secondary) IV SCH (16:00)
[2017-12-20] MEDS ORDERED: DIPHENHYDRAMINE HCL 25 MG CAP Pre-med PO ONE (16:00)
[2017-12-20] MEDS ORDERED: EPINEPHRINE HCL (1:1000) 1 MG/ML AMP Reaction Med OTHER PRN (16:00)
[2017-12-20] MEDS: IMMUNE GLOBULIN INJ 20 GM in SYRINGE/BAG 1 EA IV SCH (16:44)
--- NOTE | 2017-12-20 17:35 | HHI.FF ---
Face to Face Verification Diagnosis: (1) Myasthenia gravis with exacerbation Physical Therapy Order: Evaluate and Treat, Improve ambulation, Strength and gait training Occupational Therapy Order: Evaluate and Treat, Improve ADL, Gross motor coordination, Fine motor coordination Home Health Nursing Order: Medical education Signs/symptoms of disease process Nursing assessment with vital signs I have seen patient Brionna Rodríguez on 12/20/17. My clinical findings support the need for the requested home health care services because: Ltd mobility - disease progression Deconditioned w/ increased weakness Need for psychosocial assistance I certify that my clinical findings support that this patient is homebound because: Need for psychosocial assistance Clemencia Martines MD Dec 20, 2017 17:35
[2017-12-21] MEDS: oxyCODONE/ACETAMINOPHEN 10 MG/325 MG TAB PO PRN ×4 (00:24→18:16)
[2017-12-21] MEDS: ALPRAZolam 1 MG TAB PO PRN ×3 (00:24→17:03)
[2017-12-21] MEDS: SODIUM CHLOR 0.45% 1000 ML INJ 1,000 ML IV SCH ×2 (01:00→19:21)
[2017-12-21] MEDS: GABAPENTIN 300 MG CAP PO SCH ×3 (01:38→18:16)
[2017-12-21] MEDS: ACETAMIN 325 MG/BUTALBITAL 50 MG/CAFFEINE 40 MG TAB PO PRN ×4 (02:39→21:44)
[2017-12-21] MEDS: ONDANSETRON HCL 4 MG/2 ML VIAL IVP PRN ×4 (02:40→21:43)
[2017-12-21 04:00] VITALS: BP 100/53; PULSE 86; RESP 18; TEMP 92.4; O2SAT 99
[2017-12-21] MEDS: PYRIDOSTIGMINE BROMIDE 60 MG TAB PO SCH ×3 (05:42→18:16)
[2017-12-21] MEDS: SODIUM CHLORIDE 0.9% FLUSH 10 ML FLUSH IV FLUSH SCH ×2 (07:16→20:09)
[2017-12-21] MEDS: DOCUSATE SODIUM 50 MG/SENNA 8.6 MG TAB PO SCH ×2 (07:17→20:08)
[2017-12-21 07:54] VITALS: BP 104/59; PULSE 69; RESP 16; TEMP 97.8; O2SAT 99
[2017-12-21] MEDS: MYCOPHENOLATE MOFETIL 500 MG TAB PO SCH ×2 (08:20→20:08)
[2017-12-21] MEDS: MIDODRINE 5 MG TAB PO SCH ×3 (08:20→18:16)
[2017-12-21] MEDS: PANTOPRAZOLE SOD 40 MG DELAYED RELEASE TAB PO SCH (08:21)
[2017-12-21] MEDS: CITALOPRAM HYDROBROMIDE 40 MG TAB PO SCH (08:21)
[2017-12-21] MEDS: predniSONE 5 MG TAB PO SCH (08:21)
[2017-12-21] MEDS: FERROUS SULFATE 325 MG (65 MG ELEMENTAL IRON) TAB PO SCH ×2 (12:10→17:03)
[2017-12-21] MEDS: SUMAtriptan SUCCINATE 50 MG TAB PO PRN (12:52)
[2017-12-21] MEDS ORDERED: D5W as prime bag (IVIG as secondary) IV SCH (13:00)
[2017-12-21] MEDS ORDERED: ACETAMINOPHEN 325 MG TAB Pre-med PO ONE (13:00)
[2017-12-21] MEDS ORDERED: DIPHENHYDRAMINE HCL 25 MG CAP Pre-med PO ONE (13:00)
[2017-12-21] MEDS ORDERED: NS 500 ML Pre-hydration IV SCH (13:00)
[2017-12-21] MEDS ORDERED: LORazepam 2 MG/ML VIAL IV PUSH ONE ×2 (14:30→20:30)
--- NOTE | 2017-12-21 14:43 | HHI.PR ---
Subjective Remarks The patient said that she was not feeling well. She said she heard that her brother was in an accident and was in the hospital. She was experiencing a lot of anxiety. She says her weakness has not improved. She says she almost fell down earlier. Discussed with nursing. Objective Vitals Vital Signs Date Time Temp Pulse Resp B/P (MAP) Pulse Ox O2 Delivery O2 Flow Rate FiO2 12/21/17 07:54 97.8 69 16 104/59 (74) 99 12/21/17 04:00 92.4 86 18 100/53 (69) 99 12/21/17 03:39 18 12/21/17 01:24 18 12/20/17 21:30 97.6 75 20 120/79 (93) 100 12/20/17 21:30 75 20 120/79 12/20/17 20:30 96.4 61 18 92/51 (65) 98 12/20/17 20:30 61 18 92/51 12/20/17 19:47 97.4 66 17 95/55 (68) 98 12/20/17 19:30 66 17 95/55 12/20/17 18:18 66 17 118/59 12/20/17 16:44 72 17 102/55 12/20/17 16:00 97.2 72 17 102/55 (71) 98 I/O 12/20/17 12/20/17 12/20/17 12/21/17 12/21/17 12/21/17 06:59 14:59 22:59 06:59 14:59 22:59 Intake Total 1090 ml 3451 ml 1840 ml Balance 1090 ml 3451 ml 1840 ml Intake Oral 240 ml 2592 ml 840 ml IV Total 850 ml 859 ml 1000 ml # Voids 2 5 8 # Bowel Movements 3 3 Result Diagram: 12/17/17 0940 12/18/17 0835 Imaging Last Impressions Hip and Pelvis X-Ray 12/19/17 0000 Signed Impressions: Service Date/Time: Tuesday, December 19, 2017 10:11 - CONCLUSION: Intact right hip prosthesis No evidence of fracture or dislocation. Damon Hammonds MD Objective Remarks Gen: Anxious. HEENT: anicteric. Lungs: clear. Cardiac: regular rhythm. GI: abdomen soft. Extremities: moves all spontaneously. Neuro: Weakness in the lower extremities. Psych: Anxious, teary-eyed. Medications and IVs Current Medications Medications (Trade) Dose Ordered Sig/Gómez Route Start Time Stop Time Status Last Admin Sodium Chloride 1,000 ml @ 75 mls/hr [id number] IV 12/15/17 15:31 12/21/17 01:00 (NS Flush) 2 ml UNSCH PRN IV FLUSH 12/15/17 15:45 (NS Flush) 2 ml BID IV FLUSH 12/15/17 21:00 12/19/17 08:22 (Tylenol) 650 mg Q4H PRN PO 12/15/17 15:45 (Zofran Inj) 4 mg Q6H PRN IVP 12/15/17 15:45 12/21/17 08:29 (Narcan Inj) 0.4 mg UNSCH PRN IV PUSH 12/15/17 15:45 (Bonita-Colace) 1 tab BID PO 12/15/17 21:00 12/19/17 08:05 (Milk Of Magnesia Liq) 30 ml Q12H PRN PO 12/15/17 15:45 (Senokot) 17.2 mg Q12H PRN PO 12/15/17 15:45 (Dulcolax Supp) 10 mg DAILY PRN RECTAL 12/15/17 15:45 (Lactulose Liq) 30 ml DAILY PRN PO 12/15/17 15:45 (Xanax) 1 mg Q8H PRN PO 12/15/17 18:00 12/21/17 08:21 (CeleXA) 40 mg DAILY PO 12/16/17 09:00 12/21/17 08:21 (Neurontin) 300 mg Q8H PO 12/15/17 18:00 12/21/17 08:20 (Cellcept) 500 mg BID PO 12/15/17 21:00 12/21/17 08:20 (Percocet 10-325 Mg) 1 tab Q6H PRN PO 12/15/17 18:00 12/21/17 12:10 (Imitrex) 50 mg DAILY PRN PO 12/15/17 18:00 12/21/17 12:52 (Deltasone) 5 mg DAILY PO 12/16/17 09:00 12/21/17 08:21 (Fioricet 325-50-40) 1 tab Q6H PRN PO 12/15/17 18:30 12/21/17 08:21 (Mestinon) 120 mg TID@0600,1200,1800 PO 12/16/17 12:00 12/21/17 12:10 (Proamatine) 5 mg TID PO 12/17/17 18:00 12/21/17 12:10 (Protonix) 40 mg DAILY PO 12/18/17 09:00 12/21/17 08:21 (Ferrous Sulfate) 325 mg BID@12,17 PO 12/18/17 12:00 12/21/17 12:10 Immune Globulin 20 gm/Syringe / Bag 200 ml @ 16.08 mls/ hr Q24H IV 12/20/17 14:00 12/22/17 02:27 12/20/17 16:44 (Benadryl Inj) 50 mg UNSCH PRN IV PUSH 12/20/17 16:00 12/21/17 15:59 (Adrenalin (1:1000) Inj) 0.3 mg Q10M PRN OTHER 12/20/17 16:00 12/21/17 15:59 Dextrose 500 ml @ 30 mls/hr Q24H IV 12/21/17 13:00 12/22/17 05:39 (Ativan Inj) 1 mg ONCE ONCE IV PUSH 12/21/17 14:30 12/21/17 14:31 UNV A/P Problem List: (1) Myasthenia exacerbation ICD Code: G70.01 - Myasthenia exacerbation Status: Acute (2) Hypokalemia ICD Code: E87.6 - Hypokalemia (3) Weakness ICD Code: R53.1 - Weakness Status: Acute (4) Status post total hip replacement, right ICD Code: Z96.641 - Presence of right artificial hip joint Status: Acute (5) Depression ICD Code: F32.9 - Depression Status: Chronic Assessment and Plan Myasthenia exacerbation. Neurology consult appreciated. - we will continue to give IVIG for a total of 7 days per neurology- last dose today. - Continue Mestinon, CellCept and prednisone 5 mg p.o. daily. - continue PT. Add OT. Hypokalemia Likely secondary to poor oral intake. - improved. Weakness Secondary to myasthenia gravis exacerbation. Also with anemia. - Physical therapy and OT. - anemia work-up. - rule out infection with CXR, UA. - check a TSH. 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 - Continue pain control with Percocet. - PT/ OT. Depression/ Anxiety Exacerbated by news of an accident involving her brother 12/21. - Continue citalopram. - Xanax as needed for anxiety. Ativan 1 mg IV x 1. Iron deficiency anemia S/P IV sucrose. - follow CBC and transfuse as needed. - check B12 and folate levels. Check Hemoccult. - started PPI, po Ferrous sulfate 325 mg po bid. - dietitian consult- Iron rich food counselling. Hypotension Chronic. - midodrine as needed. DVT prophylaxis: SCDs, hold Lovenox subcutaneously secondary to anemia Problem Qualifiers (1) Depression: Qualified Codes: F32.9 - Major depressive disorder, single episode, unspecified Ez Valero DO Dec 21, 2017 14:43
[2017-12-21] MEDS: IMMUNE GLOBULIN INJ 20 GM in SYRINGE/BAG 1 EA IV SCH (14:49)
[2017-12-21 15:02] VITALS: BP 145/63; PULSE 56; RESP 17; TEMP 97.2; O2SAT 100
--- NOTE | 2017-12-21 15:44 | RADRPT ---
EXAM DATE/TIME: 12/21/2017 14:38 [facility] COMPARISON: CHEST SINGLE AP, November 16, 2017, 16:49. INDICATIONS : Short of breath, evaluate pneumonia MEDICAL HISTORY : myasthenia gravis, migraines, anemia, depression, C-diff SURGICAL HISTORY : thymus removed, infusport ENCOUNTER: Subsequent ACUITY: 1 day PAIN SCORE: 0/10 LOCATION: Bilateral chest FINDINGS: A single view of the chest demonstrates the lungs to be symmetrically aerated without evidence of mas s, infiltrate or effusion. The cardiomediastinal contours are unremarkable. Osseous structures are intact. Left subclavian [id number] has its tip in the superior vena cava. CONCLUSION: No acute disease. Andrea Gonzalez MD on December 21, 2017 at 15:41 Board Certified Radiologist. This report was verified electronically.
[2017-12-21 16:07] LABS: BILIRUBIN, URINE NEG (NEG); BLOOD, URINE NEG (NEG); GLUCOSE,URINE NEG (NEG); KETONE, URINE NEG (NEG); NITRITE,URINE NEG (NEG); PH, URINE 7.5 (5.0-8.5); SQUAMOUS EPITHELIAL CELL URINE 1 /hpf (0-5); TRANSITIONAL EPI CELLS, URINE <1 /hpf; URINE COLOR LIGHT-YELLOW (YELLW/STRAW); URINE LEUKOCYTE ESTERASE NEG (NEG)
[2017-12-21 17:10] VITALS: BP 110/59; PULSE 68; RESP 17; TEMP 97.6; O2SAT 100
[2017-12-21 19:03] VITALS: BP 102/53; PULSE 70; RESP 17; TEMP 98.1; O2SAT 98
[2017-12-21 20:35] LABS: AUTOMATED NEUTROPHIL # 3.1 TH/MM3 (1.8-7.7); BASOPHIL # 0.1 TH/MM3 (0-0.2); BASOPHIL % 1.5 % (0.0-2.0); EOSINOPHIL # 0.1 TH/MM3 (0-0.4); EOSINOPHIL % 1.2 % (0.0-4.0); HEMATOCRIT 25.1 % (35.0-46.0); LYMPH % 34.3 % (9.0-44.0); MEAN CELL VOLUME 74.5 FL (80.0-100.0); MEAN CORPUSCULAR HEMOGLOBIN 23.8 PG (27.0-34.0); MEAN CORPUSCULAR HGB CONC 31.9 % (32.0-36.0); MEAN PLATELET VOLUME 8.3 FL (7.0-11.0); MONO % 8.3 % (0.0-8.0); MONOCYTE # 0.5 TH/MM3 (0-0.9); NEUT % 54.7 % (16.0-70.0); PLATELET COUNT 254 TH/MM3 (150-450); RED BLOOD COUNT 3.36 MIL/MM3 (4.00-5.30); WHITE BLOOD COUNT 5.7 TH/MM3 (4.0-11.0)
[2017-12-21 20:51] LABS: ALBUMIN 2.8 GM/DL (3.4-5.0); ALT (GPT) 14 U/L (10-53); AST (GOT) 16 U/L (15-37); BICARBONATE 30.8 MEQ/L (21.0-32.0); BLOOD UREA NITROGEN 7 MG/DL (7-18); CALCIUM 8.2 MG/DL (8.5-10.1); CHLORIDE 106 MEQ/L (98-107); CREATININE 0.58 MG/DL (0.50-1.00); GLOMERULAR FILTRATION RATE 115 ML/MIN (>89); GLUCOSE,RANDOM 84 MG/DL (74-106); SODIUM (NA) 139 MEQ/L (136-145)
[2017-12-21 21:19] LABS: ALKALINE PHOSPHATASE 66 U/L (45-117); FOLATE 7.8 NG/ML (3.1-17.5); TOTAL BILIRUBIN ADULT 0.1 MG/DL (0.2-1.0); TOTAL PROTEIN 8.4 GM/DL (6.4-8.2)
[2017-12-22] VITALS (8 sets, daily range): BP systolic 90–124; BP diastolic 50–64; PULSE 63–71; RESP 16–20; TEMP 96.1–97; O2SAT 98–100
[2017-12-22] MEDS: GABAPENTIN 300 MG CAP PO SCH ×3 (02:17→18:32)
[2017-12-22] MEDS: oxyCODONE/ACETAMINOPHEN 10 MG/325 MG TAB PO PRN ×4 (02:17→21:48)
[2017-12-22] MEDS: ALPRAZolam 1 MG TAB PO PRN ×3 (02:18→18:32)
[2017-12-22] MEDS ORDERED: LORazepam 2 MG/ML VIAL IV PUSH ONE (04:00)
[2017-12-22] MEDS: ONDANSETRON HCL 4 MG/2 ML VIAL IVP PRN (04:06)
[2017-12-22] MEDS: ACETAMIN 325 MG/BUTALBITAL 50 MG/CAFFEINE 40 MG TAB PO PRN ×3 (04:06→16:34)
[2017-12-22] MEDS: PYRIDOSTIGMINE BROMIDE 60 MG TAB PO SCH ×3 (05:24→18:32)
[2017-12-22] MEDS: MYCOPHENOLATE MOFETIL 500 MG TAB PO SCH ×2 (08:47→21:47)
[2017-12-22] MEDS: DOCUSATE SODIUM 50 MG/SENNA 8.6 MG TAB PO SCH ×2 (08:48→21:00)
[2017-12-22] MEDS: predniSONE 5 MG TAB PO SCH (08:48)
[2017-12-22] MEDS: CITALOPRAM HYDROBROMIDE 40 MG TAB PO SCH (08:48)
[2017-12-22] MEDS: MIDODRINE 5 MG TAB PO SCH ×3 (08:48→18:32)
[2017-12-22] MEDS: PANTOPRAZOLE SOD 40 MG DELAYED RELEASE TAB PO SCH (08:48)
[2017-12-22] MEDS: SODIUM CHLORIDE 0.9% FLUSH 10 ML FLUSH IV FLUSH SCH ×2 (08:49→21:00)
[2017-12-22] MEDS: SODIUM CHLOR 0.45% 1000 ML INJ 1,000 ML IV SCH (10:49)
--- NOTE | 2017-12-22 12:08 | HHI.PR ---
Subjective Remarks The patient's brother just and she was having an extreme emotional reaction. She said the Xanax dose was not enough for her at this time. She also mentioned that her myasthenia symptoms were getting worse. She was wondering if she would see the neurologist. She was open with seeing a psychiatrist. Discussed with nursing. Objective Vitals Vital Signs Date Time Temp Pulse Resp B/P (MAP) Pulse Ox O2 Delivery O2 Flow Rate FiO2 12/22/17 08:00 96.7 71 19 107/57 (74) 100 12/22/17 05:31 110/59 (76) 12/22/17 03:55 103/56 (72) 12/22/17 02:20 96.8 63 18 124/60 (81) 100 12/22/17 00:00 96.5 67 20 92/50 (64) 98 12/21/17 19:03 98.1 70 17 102/53 (69) 98 12/21/17 17:10 97.6 68 17 110/59 (76) 100 12/21/17 17:09 68 17 110/59 12/21/17 15:49 57 17 128/59 12/21/17 15:02 97.2 56 17 145/63 (90) 100 12/21/17 14:49 56 17 145/63 I/O 12/21/17 12/21/17 12/21/17 12/22/17 12/22/17 12/22/17 07:00 15:00 23:00 07:00 15:00 23:00 Intake Total 1840 ml 1500 ml 480 ml Output Total 3 ml Balance 1840 ml 1500 ml 477 ml Intake Oral 840 ml 480 ml IV Total 1000 ml 1500 ml Output Urine Total 3 ml # Voids 8 # Bowel Movements 3 1 1 Result Diagram: 12/21/17193612/21/171936 Imaging Last Impressions Chest X-Ray 12/21/17 0000 Signed Impressions: Service Date/Time: Thursday, December 21, 2017 14:38 - CONCLUSION: No acute disease. Andrea Gonzalez MD Hip and Pelvis X-Ray 12/19/17 0000 Signed Impressions: Service Date/Time: Tuesday, December 19, 2017 10:11 - CONCLUSION: Intact right hip prosthesis No evidence of fracture or dislocation. Damon Hammonds MD Objective Remarks Gen: Anxious. HEENT: anicteric. Lungs: clear. Cardiac: regular rhythm. GI: abdomen soft. Extremities: moves all spontaneously. Neuro: Dysarthria noted. Weakness in the lower extremities. Psych: Anxious, teary-eyed. Medications and IVs Current Medications Medications (Trade) Dose Ordered Sig/Gómez Route Start Time Stop Time Status Last Admin Sodium Chloride 1,000 ml @ 75 mls/hr [id number] IV 12/15/17 15:31 12/22/17 10:49 (NS Flush) 2 ml UNSCH PRN IV FLUSH 12/15/17 15:45 (NS Flush) 2 ml BID IV FLUSH 12/15/17 21:00 12/21/17 20:09 (Tylenol) 650 mg Q4H PRN PO 12/15/17 15:45 (Zofran Inj) 4 mg Q6H PRN IVP 12/15/17 15:45 12/22/17 04:06 (Narcan Inj) 0.4 mg UNSCH PRN IV PUSH 12/15/17 15:45 (Bonita-Colace) 1 tab BID PO 12/15/17 21:00 12/19/17 08:05 (Milk Of Magnesia Liq) 30 ml Q12H PRN PO 12/15/17 15:45 (Senokot) 17.2 mg Q12H PRN PO 12/15/17 15:45 (Dulcolax Supp) 10 mg DAILY PRN RECTAL 12/15/17 15:45 (Lactulose Liq) 30 ml DAILY PRN PO 12/15/17 15:45 (Xanax) 1 mg Q8H PRN PO 12/15/17 18:00 12/22/17 10:48 (CeleXA) 40 mg DAILY PO 12/16/17 09:00 12/22/17 08:48 (Neurontin) 300 mg Q8H PO 12/15/17 18:00 12/22/17 08:48 (Cellcept) 500 mg BID PO 12/15/17 21:00 12/22/17 08:47 (Percocet 10-325 Mg) 1 tab Q6H PRN PO 12/15/17 18:00 12/22/17 08:47 (Imitrex) 50 mg DAILY PRN PO 12/15/17 18:00 12/21/17 12:52 (Deltasone) 5 mg DAILY PO 12/16/17 09:00 12/22/17 08:48 (Fioricet 325-50-40) 1 tab Q6H PRN PO 12/15/17 18:30 12/22/17 10:48 (Mestinon) 120 mg TID@0600,1200,1800 PO 12/16/17 12:00 12/22/17 05:24 (Proamatine) 5 mg TID PO 12/17/17 18:00 12/22/17 08:48 (Protonix) 40 mg DAILY PO 12/18/17 09:00 12/22/17 08:48 (Ferrous Sulfate) 325 mg BID@12,17 PO 12/18/17 12:00 12/21/17 17:03 A/P Problem List: (1) Myasthenia exacerbation ICD Code: G70.01 - Myasthenia exacerbation Status: Acute (2) Hypokalemia ICD Code: E87.6 - Hypokalemia (3) Weakness ICD Code: R53.1 - Weakness Status: Acute (4) Status post total hip replacement, right ICD Code: Z96.641 - Presence of right artificial hip joint Status: Acute (5) Depression ICD Code: F32.9 - Depression Status: Chronic Assessment and Plan Myasthenia exacerbation. Neurology consult appreciated. S/p IVIG for a total of 7 days. Still symptomatic. - Continue Mestinon, CellCept and prednisone 5 mg p.o. daily. - continue PT. Add OT. - reconsult neurology. - speech therapy added for dysarthria. Hypokalemia Likely secondary to poor oral intake. - improved. Anemia Acute on chronic iron deficiency. - follow CBC and transfuse as needed. - continue ferrous sulfate. - check Hemoccult. 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 - Continue pain control with Percocet. - PT/ OT. Depression/ Anxiety Exacerbated by news of her brother dying. - counselling provided. - psychiatry consult requested. - Continue citalopram. - Xanax 1 mg QID as needed for anxiety. Ativan 1 mg IV for breakthrough. Hypotension Chronic. - midodrine as needed. DVT prophylaxis: SCDs, hold Lovenox subcutaneously secondary to anemia Discharge Planning Awaiting psychiatry consultation and neurology reconsultation Problem Qualifiers (1) Depression: Qualified Codes: F32.9 - Major depressive disorder, single episode, unspecified Ez Valero DO Dec 22, 2017 12:08
[2017-12-22] MEDS: LORazepam 2 MG/ML VIAL IV PUSH PRN ×2 (12:26→21:52)
[2017-12-22] MEDS: FERROUS SULFATE 325 MG (65 MG ELEMENTAL IRON) TAB PO SCH ×2 (12:26→16:34)
[2017-12-23] VITALS: BP 111/73; PULSE 62; RESP 16; TEMP 96.3; O2SAT 98
[2017-12-23] MEDS: ACETAMIN 325 MG/BUTALBITAL 50 MG/CAFFEINE 40 MG TAB PO PRN ×4 (00:02→18:16)
[2017-12-23] MEDS: SODIUM CHLOR 0.45% 1000 ML INJ 1,000 ML IV SCH ×3 (00:03→23:31)
[2017-12-23] MEDS: GABAPENTIN 300 MG CAP PO SCH ×3 (02:26→16:16)
[2017-12-23] MEDS: ALPRAZolam 1 MG TAB PO PRN ×4 (02:26→21:03)
[2017-12-23] MEDS: LORazepam 2 MG/ML VIAL IV PUSH PRN ×4 (04:28→22:14)
[2017-12-23] MEDS: oxyCODONE/ACETAMINOPHEN 10 MG/325 MG TAB PO PRN ×4 (04:30→22:15)
[2017-12-23] MEDS: PYRIDOSTIGMINE BROMIDE 60 MG TAB PO SCH ×2 (05:57→11:58)
[2017-12-23 06:12] LABS: HEMATOCRIT 25.7 % (35.0-46.0); HEMOGLOBIN 8.1 GM/DL (11.6-15.3); MEAN CELL VOLUME 74.1 FL (80.0-100.0); MEAN CORPUSCULAR HEMOGLOBIN 23.4 PG (27.0-34.0); MEAN CORPUSCULAR HGB CONC 31.6 % (32.0-36.0); MEAN PLATELET VOLUME 7.9 FL (7.0-11.0); PLATELET COUNT 253 TH/MM3 (150-450); RED BLOOD COUNT 3.47 MIL/MM3 (4.00-5.30); RED CELL DISTRIBUTION WIDTH 19.5 % (11.6-17.2); WHITE BLOOD COUNT 5.1 TH/MM3 (4.0-11.0)
[2017-12-23 08:00] VITALS: BP 115/63; PULSE 61; RESP 20; TEMP 96.9; O2SAT 98
[2017-12-23] MEDS: SODIUM CHLORIDE 0.9% FLUSH 10 ML FLUSH IV FLUSH SCH ×2 (08:34→21:00)
[2017-12-23] MEDS: CITALOPRAM HYDROBROMIDE 40 MG TAB PO SCH (08:34)
[2017-12-23] MEDS: MIDODRINE 5 MG TAB PO SCH ×3 (08:34→16:15)
[2017-12-23] MEDS: PANTOPRAZOLE SOD 40 MG DELAYED RELEASE TAB PO SCH (08:34)
[2017-12-23] MEDS: predniSONE 5 MG TAB PO SCH (08:34)
[2017-12-23] MEDS: MYCOPHENOLATE MOFETIL 500 MG TAB PO SCH ×2 (08:34→21:03)
[2017-12-23] MEDS: DOCUSATE SODIUM 50 MG/SENNA 8.6 MG TAB PO SCH ×2 (08:35→21:00)
--- NOTE | 2017-12-23 11:27 | PD.PSY.CON ---
Provisional Diagnosis Admission Date Dec 15, 2017 at 15:37 [place] I. Adjustment disorder with anxiety, history of FIDE, MDD [place] II. Deferred [place] III. Myasthenia gravis, anemia, migraine History of Present Illness Service Psychiatry Consult Requested By Medical team Reason for Consult Anxiety Primary Care Physician Non-Staff HPI The patient is a 42-year-old woman, domiciled in [facility] with her ex- , she has 2 boys (10,12), unemployed, disabled, with psychiatric history of anxiety, depression, no previous psychiatric hospitalizations, no previous suicide attempts, the patient is in Xanax 1 mg 4 times per day, Celexa 40 mg, she has medical history of myasthenia gravis, anemia, migraine, who is admitted due to myasthenia gravis exacerbation managed by hospitalist and neurology. Consulted to psychiatry to manage anxiety. On psychiatric evaluation the patient is calm, cooperative. The patient states that she has been very anxious since she became aware couple of days ago that he is brother in an accident. He says that she has been having a hard time during this hospitalization due to sadness, morning, increased anxiety. Patient reports that she has not been dosed appropriately with Xanax and Ativan. She reports that the nurses are not giving her her Xanax on time and she feels that she is getting out of her skin. Reports good appetite, good sleep, denies anhedonia, denies hopelessness, denies helplessness, denies suicidal or homicidal ideation , she denies visual and auditory hallucinations. She described her mood as "disappointed", and reports being still in shock about my brother. However, through my conversation the patient is more focused in medication for anxiety and pain than in the emotional part of the reason loss. Patient is fully oriented 3, no fluctuation of consciousness, no attention deficit present. No delusions, no loosening of associations, no ideas of reference, no flight of ideas, no disorganized behavior or speech, no paranoia, no agitation or aggressive behavior present during this evaluation. The patient report occasional use of cocaine, but denies use of alcohol and other illegal drugs. Review of Systems Constitutional: DENIES: Diaphoretic episodes, Fatigue, Fever, Weight gain, Weight loss, Chills, Dizziness, Change in appetite, Night Sweats Endocrine: DENIES: Abnorml menstrual pattern, Heat/cold intolerance, Polydipsia , Polyuria, Polyphagia Eyes: DENIES: Blurred vision, Diplopia, Eye inflammation, Eye pain, Vision loss , Photosensitivity, Double Vision Ears, nose, mouth, throat: DENIES: Tinnitus, Hearing loss, Vertigo, Nasal discharge, Oral lesions, Throat pain, Hoarseness, Ear Pain, Running Nose, Epistaxis, Sinus Pain, Toothache, Odynophagia Respiratory: DENIES: Apneas, Cough, Snoring, Wheezing, Hemoptysis, Sputum production, Shortness of breath Cardiovascular: DENIES: Chest pain, Palpitations, Syncope, Dyspnea on Exertion , PND, Lower Extremity Edema, Orthopnea, Claudication Gastrointestinal: DENIES: Abdominal pain, Black stools, Bloody stools, Constipation, Diarrhea, Nausea, Vomiting, Difficulty Swallowing, Anorexia Genitourinary: DENIES: Abnormal vaginal bleeding, Dysmenorrhea, Dyspareunia, Sexual dysfunction, Urinary frequency, Urinary incontinence, Urgency, Hematuria , Dysuria, Nocturia, Vaginal discharge Musculoskeletal: DENIES: Joint pain, Muscle aches, Stiffness, Joint Swelling, Back pain, Neck pain Integumentary: DENIES: Abnormal pigmentation, Pruritus, Rash, Nail changes, Breast masses, Breast skin changes, Nipple discharge Hematologic/lymphatic: DENIES: Bruising, Lymphadenopathy Immunologic/allergic: DENIES: Eczema, Urticaria Psychiatric: COMPLAINS OF: Anxiety, Depression, DENIES: Confusion, Mood changes , Hallucinations, Agitation, Suicidal Ideation, Homicidal Ideation, Delusions Past Family Social History Coded Allergies: penicillin G (Unverified Allergy, Severe, Anaphylaxis, 12/15/17) promethazine (Unverified Adverse Reaction, Severe, NAUSEOUS, 12/15/17) Active Scripts Ferrous Sulfate (Ferosul) 325 Mg (65 Mg Iron) Tablet, 325 MG PO BID@12,17 for irondef for 30 Days, #60 TAB Prov:Clemencia Martines MD 12/19/17 Gabapentin (Neurontin) 300 Mg Cap, 300 MG PO Q8H, #90 CAP Prov:Godwin Khan MD 11/26/17 [Iskp-Povjn-Vjhm 325-50-40 Mg] 1 TAB TAB No Conflict Check, 1 TAB PO Q6H Y for HEADACHE, #60 Prov:Godwin Khan MD 11/26/17 Pyridostigmine (Mestinon) 60 Mg Tab, 120 MG PO TIDAC for Manage Myastenia Gravis , #360 TAB 0 Refills Prov:Godwin Khan MD 11/26/17 Mycophenolate (Cellcept) 500 Mg Tab, 500 MG PO BID for Immunosuppression, #60 TAB 0 Refills Prov:Godwin Khan MD 11/26/17 Prednisone (Prednisone) 5 Mg Tab, 5 MG PO DAILY, #30 TAB 0 Refills Prov:Godwin Khan MD 11/26/17 Citalopram (Citalopram) 40 Mg Tab, 40 MG PO DAILY for Control Depression, #30 TAB 0 Refills Prov:Godwin Khan MD 11/26/17 Lactobacillus Acidophilus (Lactinex) 1 Chew, 1 TAB CHEW DAILY for Nutritional Supplement, #30 TAB 0 Refills Prov:Godwin Khan MD 11/26/17 Sumatriptan (Imitrex) 50 Mg Tab, 50 MG PO as needed Y for HEADACHE, #30 TAB 0 Refills If a satisfactory response has not been obtained at 2 hours, a second dose may be administered Prov:Godwin Khan MD 11/26/17 Reported Medications Midodrine (Midodrine) 5 Mg Tab, 5 MG PO BID for Control Low Blood Pressure, #90 TAB 0 Refills 12/15/17 Oxycodone-Acetaminophen (Percocet) 10-325 mg Tab, 1 TAB PO Q6H Y for PAIN, TAB 0 Refills 12/15/17 Alprazolam (Xanax) 1 Mg Tab, 1 MG PO Q8H Y for ANXIETY, TAB 0 Refills 12/15/17 Current Medications Medications (Trade) Dose Ordered Sig/Gómez Route Start Time Stop Time Status Last Admin Sodium Chloride 1,000 ml @ 75 mls/hr [id number] IV 12/15/17 15:31 12/23/17 10:13 (NS Flush) 2 ml UNSCH PRN IV FLUSH 12/15/17 15:45 (NS Flush) 2 ml BID IV FLUSH 12/15/17 21:00 12/21/17 20:09 (Tylenol) 650 mg Q4H PRN PO 12/15/17 15:45 (Zofran Inj) 4 mg Q6H PRN IVP 12/15/17 15:45 12/22/17 04:06 (Narcan Inj) 0.4 mg UNSCH PRN IV PUSH 12/15/17 15:45 (Boniat-Colace) 1 tab BID PO 12/15/17 21:00 12/19/17 08:05 (Milk Of Magnesia Liq) 30 ml Q12H PRN PO 12/15/17 15:45 (Senokot) 17.2 mg Q12H PRN PO 12/15/17 15:45 (Dulcolax Supp) 10 mg DAILY PRN RECTAL 12/15/17 15:45 (Lactulose Liq) 30 ml DAILY PRN PO 12/15/17 15:45 (CeleXA) 40 mg DAILY PO 12/16/17 09:00 12/23/17 08:34 (Cellcept) 500 mg BID PO 12/15/17 21:00 12/23/17 08:34 (Percocet 10-325 Mg) 1 tab Q6H PRN PO 12/15/17 18:00 12/23/17 10:27 (Imitrex) 50 mg DAILY PRN PO 12/15/17 18:00 12/21/17 12:52 (Deltasone) 5 mg DAILY PO 12/16/17 09:00 12/23/17 08:34 (Fioricet 325-50-40) 1 tab Q6H PRN PO 12/15/17 18:30 12/23/17 05:57 (Mestinon) 120 mg TID@0600,1200,1800 PO 12/16/17 12:00 12/23/17 05:57 (Proamatine) 5 mg TID PO 12/17/17 18:00 12/23/17 08:34 (Protonix) 40 mg DAILY PO 12/18/17 09:00 12/23/17 08:34 (Ferrous Sulfate) 325 mg BID@12,17 PO 12/18/17 12:00 12/22/17 16:34 (Ativan Inj) 1 mg Q6H PRN IV PUSH 12/22/17 12:00 12/23/17 10:13 (Xanax) 1 mg Q6HR PRN PO 12/23/17 11:15 UNV (Neurontin) 600 mg Q8H PO 12/23/17 18:00 UNV Family Psych History No family psychiatric history Social History Patient was born and raised in [place], she lives in [facility] with her ex- and 2 kids, unemployed, disabled, college graduate Patient's Strengths (min. 2) Family support Physical Exam No tremors, no EPS, no agitation or motor retarded Vital Signs Vital Signs Date Time Temp Pulse Resp B/P (MAP) Pulse Ox O2 Delivery O2 Flow Rate FiO2 12/23/17 08:00 96.9 61 20 115/63 (80) 98 I/O 12/23/17 12/23/17 12/24/17 08:00 16:00 00:00 Intake Total 1120 ml Balance 1120 ml Lab Results Test 12/23/17 05:50 White Blood Count 5.1 TH/MM3 Red Blood Count 3.47 MIL/MM3 Hemoglobin 8.1 GM/DL Hematocrit 25.7 % Mean Corpuscular Volume 74.1 FL Mean Corpuscular Hemoglobin 23.4 PG Mean Corpuscular Hemoglobin Concent 31.6 % Red Cell Distribution Width 19.5 % Platelet Count 253 TH/MM3 Mean Platelet Volume 7.9 FL Date/Time Source Procedure Growth Status 12/21/17 17:42 Stool Stool Stool Occult Blood (MANUELITO) - Final HEMOCCULT NEGATIVE Complete Mental Status Examination Appearance: Appropriate Consciousness: Alert Orientation: x4 Motor Activity: Normal gait Speech: Unremarkable Language: Adequate Fund of Knowledge: Adequate Attention and Concentration: Adequate Memory: Unremarkable Mood: Appropriate Affect: Irritable Thought Process & Associations: Intact Thought Content: Appropriate Hallucination Type: None Delusion Type: None Suicidal Ideation: No Suicidal Plan: No Suicidal Intention: No Homicidal Ideation: No Homicidal Plan: No Homicidal Intention: No Insight: Fair Judgment: Impulsive Assessment & Plan Problem List: (1) Adjustment disorder with anxiety ICD Codes: F43.22 - Adjustment disorder with anxiety Assessment & Plan: On psychiatric evaluation today the patient reports increased anxiety and symptoms of depression in the context of current hospitalization and recent unexpected of her brother. The patient reports being in shock, sad, with sense of frustration still in denial which seems to be quite consistent with symptoms of morning. She denies anhedonia, denies hopelessness, denies helplessness, worthlessness, denies suicidal and homicidal ideation. The patient denies visual and auditory hallucinations. She also denies to be very anxious, feeling that she is getting out of her skin especially in the context of "not being dosed appropriately" with benzodiazepines. Patient has psychiatric history of depression and anxiety, no previous psychiatric hospitalizations, no previous suicide attempts. During that evaluation patient's affect does not seem to be consistent with her reported mood, during the evaluation patient is mostly more focused in medications for pain and anxiety than the emotions that are normally related with such traumatic loss. The patient is a multiple medication with potential for abuse and dependence including Fioricet, opiates, benzodiazepines. I would recommend to be cautious with benzodiazepine and MS exacerbation due to the potential for respiratory depression. I will go ahead and restart her Xanax 1 mg 4 times per day. We will increase gabapentin to 600 mg 3 times daily to help also with anxiety. Continue Celexa 40 mg. Extensive support, motivation and psychoeducation provided. Consult appreciated Assessment & Plan Estimated LOS: Gonzalez Meyer MD Dec 23, 2017 11:27
[2017-12-23] MEDS: FERROUS SULFATE 325 MG (65 MG ELEMENTAL IRON) TAB PO SCH ×2 (11:59→16:16)
[2017-12-23 12:00] VITALS: BP_SYST 114; BP_SYST 122; BP_DIAS 59; BP_DIAS 61; PULSE 72; PULSE 89; RESP 16; RESP 19; TEMP 96.9; TEMP 97.3; O2SAT 98; O2SAT 99
[2017-12-23] MEDS: SUMAtriptan SUCCINATE 50 MG TAB PO PRN (13:36)
--- NOTE | 2017-12-23 14:56 | HHI.PR ---
Subjective Remarks The patient said her anxiety level was still very high. She said she spoke with a psychiatrist earlier. She says the strength in her lower extremities was getting better but she was still feeling very weak in the upper extremities. She said her speech was still off. Discussed with nursing. Objective Vitals Vital Signs Date Time Temp Pulse Resp B/P (MAP) Pulse Ox O2 Delivery O2 Flow Rate FiO2 12/23/17 12:00 97.3 72 16 114/61 (78) 99 12/23/17 08:00 96.9 61 20 115/63 (80) 98 12/23/17 00:00 96.3 62 16 111/73 (86) 98 12/22/17 20:00 96.1 66 16 90/54 (66) 99 12/22/17 16:00 96.2 70 18 103/58 (73) 100 I/O 12/22/17 12/22/17 12/22/17 12/23/17 12/23/17 12/23/17 07:00 15:00 23:00 07:00 15:00 23:00 Intake Total 480 ml 960 ml 1000 ml 120 ml Output Total 3 ml Balance 477 ml 960 ml 1000 ml 120 ml Intake Oral 480 ml 960 ml 120 ml IV Total 1000 ml Output Urine Total 3 ml # Voids 3 1 # Bowel Movements 1 1 Result Diagram: 12/23/17 0550 12/21/17 1937 Imaging Last Impressions Chest X-Ray 12/21/17 0000 Signed Impressions: Service Date/Time: Thursday, December 21, 2017 14:38 - CONCLUSION: No acute disease. Andrea Gonzalez MD Hip and Pelvis X-Ray 12/19/17 0000 Signed Impressions: Service Date/Time: Tuesday, December 19, 2017 10:11 - CONCLUSION: Intact right hip prosthesis No evidence of fracture or dislocation. Damon Hammonds MD Objective Remarks Gen: Anxious. HEENT: anicteric. Lungs: clear. Cardiac: regular rhythm. GI: abdomen soft. Extremities: moves all spontaneously. Neuro: Dysarthria noted. Weakness in the lower extremities improving. Psych: Anxious. Medications and IVs Current Medications Medications (Trade) Dose Ordered Sig/Gómez Route Start Time Stop Time Status Last Admin Sodium Chloride 1,000 ml @ 75 mls/hr [id number] IV 12/15/17 15:31 12/23/17 10:13 (NS Flush) 2 ml UNSCH PRN IV FLUSH 12/15/17 15:45 (NS Flush) 2 ml BID IV FLUSH 12/15/17 21:00 12/21/17 20:09 (Tylenol) 650 mg Q4H PRN PO 12/15/17 15:45 (Zofran Inj) 4 mg Q6H PRN IVP 12/15/17 15:45 12/22/17 04:06 (Narcan Inj) 0.4 mg UNSCH PRN IV PUSH 12/15/17 15:45 (Bonita-Colace) 1 tab BID PO 12/15/17 21:00 12/19/17 08:05 (Milk Of Magnesia Liq) 30 ml Q12H PRN PO 12/15/17 15:45 (Senokot) 17.2 mg Q12H PRN PO 12/15/17 15:45 (Dulcolax Supp) 10 mg DAILY PRN RECTAL 12/15/17 15:45 (Lactulose Liq) 30 ml DAILY PRN PO 12/15/17 15:45 (CeleXA) 40 mg DAILY PO 12/16/17 09:00 12/23/17 08:34 (Cellcept) 500 mg BID PO 12/15/17 21:00 12/23/17 08:34 (Percocet 10-325 Mg) 1 tab Q6H PRN PO 12/15/17 18:00 12/23/17 10:27 (Imitrex) 50 mg DAILY PRN PO 12/15/17 18:00 12/23/17 13:36 (Deltasone) 5 mg DAILY PO 12/16/17 09:00 12/23/17 08:34 (Fioricet 325-50-40) 1 tab Q6H PRN PO 12/15/17 18:30 12/23/17 11:58 (Mestinon) 120 mg TID@0600,1200,1800 PO 12/16/17 12:00 12/23/17 11:58 (Proamatine) 5 mg TID PO 12/17/17 18:00 12/23/17 11:58 (Protonix) 40 mg DAILY PO 12/18/17 09:00 12/23/17 08:34 (Ferrous Sulfate) 325 mg BID@12,17 PO 12/18/17 12:00 12/23/17 11:59 (Ativan Inj) 1 mg Q6H PRN IV PUSH 12/22/17 12:00 12/23/17 10:13 (Xanax) 1 mg Q6HR PRN PO 12/23/17 11:15 12/23/17 14:39 (Neurontin) 600 mg Q8H PO 12/23/17 18:00 A/P Problem List: (1) Myasthenia exacerbation ICD Code: G70.01 - Myasthenia exacerbation Status: Acute (2) Hypokalemia ICD Code: E87.6 - Hypokalemia (3) Weakness ICD Code: R53.1 - Weakness Status: Acute (4) Status post total hip replacement, right ICD Code: Z96.641 - Presence of right artificial hip joint Status: Acute (5) Depression ICD Code: F32.9 - Depression Status: Chronic Assessment and Plan Myasthenia exacerbation. Neurology consult appreciated. S/p IVIG for a total of 7 days. Still symptomatic. Lower extremity strength improved but still weak in upper extremities and has speech difficulties. - Continue Mestinon, CellCept and prednisone 5 mg p.o. daily. - continue PT. Added OT. - reconsult neurology. - speech therapy following. Hypokalemia Likely secondary to poor oral intake. - improved. Anemia Acute on chronic iron deficiency. Hemoccult negative. - follow CBC and transfuse as needed. - continue ferrous sulfate. 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 - Continue pain control with Percocet. - PT/ OT. Depression/ Anxiety Exacerbated by news of her brother dying. Psych consult appreciated. - counselling provided. - psychiatry following. - Continue citalopram. - Xanax 1 mg QID as needed for anxiety. Ativan 1 mg IV for breakthrough. Hypotension Chronic. - midodrine as needed. DVT prophylaxis: SCDs, hold Lovenox subcutaneously secondary to anemia Discharge Planning Awaiting neurology reconsultation Problem Qualifiers (1) Depression: Qualified Codes: F32.9 - Major depressive disorder, single episode, unspecified Ez Valero DO Dec 23, 2017 14:56
[2017-12-23 16:00] VITALS: BP 122/59; PULSE 89; RESP 19; TEMP 96.9; O2SAT 98
[2017-12-23] MEDS ORDERED: PYRIDOSTIGMINE BROMIDE 60 MG TAB PO ONE ×2 (16:00→20:00)
--- NOTE | 2017-12-23 17:27 | HHI.PR ---
Review/Management Diagnosis Myasthenia gravis exacerbation Plan recommend total of 5 treatments of plasma pheresis Diagnosis/Plan: Daily Summary 12/[address] De La Fuente anxious woman and MG improved partially with ivig for ?[address] Kirby gave her [address] De La Fuente initial tx her voice becomes weak and still has some gen weakness especially when mestinon wearing off no sob and no swallowing difficulty stressed as her brother passed after a lengthy discussion and exam, i will increase her mestinon to 120 mg qid and if she is not showing addtl improvement, possibly start plasmapheresis keeep her inpatient for now Subjective Subjective Comments MG not fully improved yet Active Medications Current Medications Medications (Trade) Dose Ordered Sig/Gómez Route Start Time Stop Time Status Last Admin Sodium Chloride 1,000 ml @ 75 mls/hr [id number] IV 12/15/17 15:31 12/23/17 10:13 (NS Flush) 2 ml UNSCH PRN IV FLUSH 12/15/17 15:45 (NS Flush) 2 ml BID IV FLUSH 12/15/17 21:00 12/21/17 20:09 (Tylenol) 650 mg Q4H PRN PO 12/15/17 15:45 (Zofran Inj) 4 mg Q6H PRN IVP 12/15/17 15:45 12/22/17 04:06 (Narcan Inj) 0.4 mg UNSCH PRN IV PUSH 12/15/17 15:45 (Bonita-Colace) 1 tab BID PO 12/15/17 21:00 12/19/17 08:05 (Milk Of Magnesia Liq) 30 ml Q12H PRN PO 12/15/17 15:45 (Senokot) 17.2 mg Q12H PRN PO 12/15/17 15:45 (Dulcolax Supp) 10 mg DAILY PRN RECTAL 12/15/17 15:45 (Lactulose Liq) 30 ml DAILY PRN PO 12/15/17 15:45 (CeleXA) 40 mg DAILY PO 12/16/17 09:00 12/23/17 08:34 (Cellcept) 500 mg BID PO 12/15/17 21:00 12/23/17 08:34 (Percocet 10-325 Mg) 1 tab Q6H PRN PO 12/15/17 18:00 12/23/17 16:16 (Imitrex) 50 mg DAILY PRN PO 12/15/17 18:00 12/23/17 13:36 (Deltasone) 5 mg DAILY PO 12/16/17 09:00 12/23/17 08:34 (Fioricet 325-50-40) 1 tab Q6H PRN PO 12/15/17 18:30 12/23/17 11:58 (Proamatine) 5 mg TID PO 12/17/17 18:00 12/23/17 16:15 (Protonix) 40 mg DAILY PO 12/18/17 09:00 12/23/17 08:34 (Ferrous Sulfate) 325 mg BID@12,17 PO 12/18/17 12:00 12/23/17 16:16 (Ativan Inj) 1 mg Q6H PRN IV PUSH 12/22/17 12:00 12/23/17 16:17 (Xanax) 1 mg Q6HR PRN PO 12/23/17 11:15 12/23/17 14:39 (Neurontin) 600 mg Q8H PO 12/23/17 18:00 12/23/17 16:16 (Mestinon) 120 mg ONCE ONCE PO 12/23/17 20:00 12/23/17 20:01 (Mestinon) 120 mg 0600,1000,1400,1800 PO 12/24/17 06:00 Allergies Allergies Coded Allergies penicillin G (Unverified Allergy, Severe, Anaphylaxis, 12/15/17) promethazine (Unverified Adverse Reaction, Severe, NAUSEOUS, 12/15/17) Review of Systems All other ROS: ROS reviewed as documented in chart Exam I&O / VS 12/23/17 12/23/17 12/24/17 15:00 23:00 07:00 Intake Total 120 ml 850 ml Output Total 900 ml Balance 120 ml -50 ml Intake Oral 120 ml 850 ml Output Urine Total 900 ml # Bowel Movements 1 Vital Signs Date Time Temp Pulse Resp B/P (MAP) Pulse Ox O2 Delivery O2 Flow Rate FiO2 12/23/17 16:00 96.9 89 19 122/59 (80) 98 12/23/17 12:00 97.3 72 16 114/61 (78) 99 12/23/17 12:00 96.9 89 19 122/59 (80) 98 3/15/18 08:00 96.9 61 20 115/63 (80) 98 12/23/17 00:00 96.3 62 16 111/73 (86) 98 12/22/17 20:00 96.1 66 16 90/54 (66) 99 General: Alert and Oriented, No acute distress Eye: PERRL, EOMI, Normal conjuctiva Respiratory: Lungs CTA, Non-labored respirations, Symmetrical expansion Cardiology: Normal rate, Intact pulses, Regular Rhythm Musculoskeletal: ROM, Swelling, No calf tenderness Neurologic: Alert, Oriented, Normal motor, No focal defects, CN II-XII intact, Normal DTR's Psychiatric: Cooperative, Appropriate mood & affect, Normal judgement Objective Micro and Labs Laboratory Tests Test 12/23/17 05:50 White Blood Count 5.1 Red Blood Count 3.47 Hemoglobin 8.1 Hematocrit 25.7 Mean Corpuscular Volume 74.1 Mean Corpuscular Hemoglobin 23.4 Mean Corpuscular Hemoglobin Concent 31.6 Red Cell Distribution Width 19.5 Platelet Count 253 Mean Platelet Volume 7.9 Date/Time Source Procedure Growth Status 12/21/17 17:42 Stool Stool Stool Occult Blood (MANUELITO) - Final HEMOCCULT NEGATIVE Complete Temi Zhao MD Dec 23, 2017 17:27
[2017-12-23 20:00] VITALS: BP 96/51; PULSE 68; RESP 18; TEMP 96.3; O2SAT 98
[2017-12-24] VITALS: BP 98/53; PULSE 61; RESP 18; TEMP 96.1; O2SAT 99
[2017-12-24] MEDS: ACETAMIN 325 MG/BUTALBITAL 50 MG/CAFFEINE 40 MG TAB PO PRN ×5 (00:16→23:54)
[2017-12-24] MEDS: GABAPENTIN 300 MG CAP PO SCH ×3 (02:17→17:10)
[2017-12-24] MEDS: ALPRAZolam 1 MG TAB PO PRN ×4 (02:18→19:54)
[2017-12-24] MEDS: SODIUM CHLOR 0.45% 1000 ML INJ 1,000 ML IV SCH ×2 (02:18→15:12)
[2017-12-24] MEDS: LORazepam 2 MG/ML VIAL IV PUSH PRN ×2 (03:10→09:12)
[2017-12-24] MEDS: oxyCODONE/ACETAMINOPHEN 10 MG/325 MG TAB PO PRN ×4 (03:10→21:11)
[2017-12-24] MEDS: PYRIDOSTIGMINE BROMIDE 60 MG TAB PO SCH ×4 (05:58→17:10)
[2017-12-24 08:00] VITALS: BP 107/54; PULSE 69; RESP 19; TEMP 96.9; O2SAT 97
[2017-12-24] MEDS: predniSONE 5 MG TAB PO SCH (08:20)
[2017-12-24] MEDS: MIDODRINE 5 MG TAB PO SCH ×3 (08:20→17:10)
[2017-12-24] MEDS: DOCUSATE SODIUM 50 MG/SENNA 8.6 MG TAB PO SCH ×3 (08:20→19:54)
[2017-12-24] MEDS: PANTOPRAZOLE SOD 40 MG DELAYED RELEASE TAB PO SCH (08:20)
[2017-12-24] MEDS: CITALOPRAM HYDROBROMIDE 40 MG TAB PO SCH (08:20)
[2017-12-24] MEDS: MYCOPHENOLATE MOFETIL 500 MG TAB PO SCH ×2 (08:20→19:54)
[2017-12-24] MEDS: SODIUM CHLORIDE 0.9% FLUSH 10 ML FLUSH IV FLUSH SCH ×2 (08:21→19:54)
[2017-12-24 12:00] VITALS: BP 109/74; PULSE 70; RESP 19; TEMP 97.7; O2SAT 96
[2017-12-24] MEDS: FERROUS SULFATE 325 MG (65 MG ELEMENTAL IRON) TAB PO SCH ×2 (12:01→17:10)
[2017-12-24] MEDS ORDERED: LORazepam 2 MG/ML VIAL IV PUSH ONE (13:45)
[2017-12-24] MEDS: SODIUM CHLORIDE 0.9% FLUSH 10 ML FLUSH IV FLUSH PRN (15:15)
[2017-12-24 16:00] VITALS: BP 120/58; PULSE 97; RESP 18; TEMP 97.1; O2SAT 95
--- NOTE | 2017-12-24 16:02 | HHI.PR ---
Subjective Remarks The patient was resting in bed. She was very nervous about her mother coming to visit. She said she was still not at her baseline. She was wondering if she would need plasmapheresis. Discussed with nursing. Objective Vitals Vital Signs Date Time Temp Pulse Resp B/P (MAP) Pulse Ox O2 Delivery O2 Flow Rate FiO2 12/24/17 13:02 18 12/24/17 12:00 97.7 70 19 109/74 (86) 96 12/24/17 10:12 18 12/24/17 08:00 96.9 69 19 107/54 (71) 97 12/24/17 00:00 96.1 61 18 98/53 (68) 99 12/23/17 20:00 96.3 68 18 96/51 (66) 98 12/23/17 16:00 96.9 89 19 122/59 (80) 98 I/O 12/23/17 12/23/17 12/23/17 12/24/17 12/24/17 12/24/17 07:00 15:00 23:00 07:00 15:00 23:00 Intake Total 1000 ml 1120 ml 850 ml 1000 ml 240 ml Output Total 900 ml Balance 1000 ml 1120 ml -50 ml 1000 ml 240 ml Intake Oral 120 ml 850 ml 240 ml IV Total 1000 ml 1000 ml 1000 ml Output Urine Total 900 ml # Voids 1 2 # Bowel Movements 1 Result Diagram: 12/23/17 0550 12/21/17 1937 Imaging Last Impressions Chest X-Ray 12/21/17 0000 Signed Impressions: Service Date/Time: Thursday, December 21, 2017 14:38 - CONCLUSION: No acute disease. Andrea Gonzalez MD Hip and Pelvis X-Ray 12/19/17 0000 Signed Impressions: Service Date/Time: Tuesday, December 19, 2017 10:11 - CONCLUSION: Intact right hip prosthesis No evidence of fracture or dislocation. Damon Hammonds MD Objective Remarks Gen: Anxious. HEENT: anicteric. Lungs: clear. Cardiac: regular rhythm. GI: abdomen soft. Extremities: moves all spontaneously. Neuro: Dysarthria noted. Weakness in the lower extremities improving. Psych: Anxious. Medications and IVs Current Medications Medications (Trade) Dose Ordered Sig/Gómez Route Start Time Stop Time Status Last Admin Sodium Chloride 1,000 ml @ 75 mls/hr [id number] IV 12/15/17 15:31 12/24/17 15:12 (NS Flush) 2 ml UNSCH PRN IV FLUSH 12/15/17 15:45 12/24/17 15:15 (NS Flush) 2 ml BID IV FLUSH 12/15/17 21:00 12/21/17 20:09 (Tylenol) 650 mg Q4H PRN PO 12/15/17 15:45 (Zofran Inj) 4 mg Q6H PRN IVP 12/15/17 15:45 12/22/17 04:06 (Narcan Inj) 0.4 mg UNSCH PRN IV PUSH 12/15/17 15:45 (Bonita-Colace) 1 tab BID PO 12/15/17 21:00 12/19/17 08:05 (Milk Of Magnesia Liq) 30 ml Q12H PRN PO 12/15/17 15:45 (Senokot) 17.2 mg Q12H PRN PO 12/15/17 15:45 (Dulcolax Supp) 10 mg DAILY PRN RECTAL 12/15/17 15:45 (Lactulose Liq) 30 ml DAILY PRN PO 12/15/17 15:45 (CeleXA) 40 mg DAILY PO 12/16/17 09:00 12/24/17 08:20 (Cellcept) 500 mg BID PO 12/15/17 21:00 12/24/17 08:20 (Percocet 10-325 Mg) 1 tab Q6H PRN PO 12/15/17 18:00 12/24/17 15:13 (Imitrex) 50 mg DAILY PRN PO 12/15/17 18:00 12/23/17 13:36 (Deltasone) 5 mg DAILY PO 12/16/17 09:00 12/24/17 08:20 (Fioricet 325-50-40) 1 tab Q6H PRN PO 12/15/17 18:30 12/24/17 12:02 (Proamatine) 5 mg TID PO 12/17/17 18:00 12/24/17 12:01 (Protonix) 40 mg DAILY PO 12/18/17 09:00 12/24/17 08:20 (Ferrous Sulfate) 325 mg BID@12,17 PO 12/18/17 12:00 12/24/17 12:01 (Xanax) 1 mg Q6HR PRN PO 12/23/17 11:15 12/24/17 14:13 (Neurontin) 600 mg Q8H PO 12/23/17 18:00 12/24/17 09:44 (Mestinon) 120 mg 0600,1000,1400,1800 PO 12/24/17 06:00 12/24/17 14:13 A/P Problem List: (1) Myasthenia exacerbation ICD Code: G70.01 - Myasthenia exacerbation Status: Acute (2) Hypokalemia ICD Code: E87.6 - Hypokalemia (3) Weakness ICD Code: R53.1 - Weakness Status: Acute (4) Status post total hip replacement, right ICD Code: Z96.641 - Presence of right artificial hip joint Status: Acute (5) Depression ICD Code: F32.9 - Depression Status: Chronic Assessment and Plan Myasthenia exacerbation. Neurology consult appreciated. S/p IVIG for a total of 7 days. Still symptomatic. Lower extremity strength improved but still weak in upper extremities and has speech difficulties. - Continue Mestinon, CellCept and prednisone 5 mg p.o. daily. Mestinon increased by neurology. - continue PT. Added OT. - reconsulted neurology. Considering plasmapheresis. - speech therapy following. Hypokalemia Likely secondary to poor oral intake. - improved. Anemia Acute on chronic iron deficiency. Hemoccult negative. - follow CBC and transfuse as needed. - continue ferrous sulfate. 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 - Continue pain control with Percocet. - PT/ OT. Depression/ Anxiety Exacerbated by news of her brother dying. Psych consult appreciated. - counselling provided. - psychiatry following. - Continue citalopram. - Xanax 1 mg QID as needed for anxiety. Hypotension Chronic. - midodrine as needed. DVT prophylaxis: SCDs, hold Lovenox subcutaneously secondary to anemia Discharge Planning Awaiting neurology clearance Problem Qualifiers (1) Depression: Qualified Codes: F32.9 - Major depressive disorder, single episode, unspecified Ez Valero DO Dec 24, 2017 16:02
--- NOTE | 2017-12-24 16:14 | HHI.PR ---
Review/Management Diagnosis Myasthenia gravis exacerbation Plan recommend total of 5 treatments of plasma pheresis Diagnosis/Plan: Daily Summary 12/[address] De La Fuente anxious woman and MG improved partially with ivig for ?[address] Kirby gave her [address] De La Fuente initial tx her voice becomes weak and still has some gen weakness especially when mestinon wearing off no sob and no swallowing difficulty stressed as her brother passed after a lengthy discussion and exam, i will increase her mestinon to 120 mg qid and if she is not showing addtl improvement, possibly start plasmapheresis keeep her inpatient for now 12/24 seen early this am seemed to be better than yest but not baseline, anxious continue mestinon today and i will ask dr Vizcarra to see her tomorrow and decide on plasmapheresis Subjective Subjective Comments No acute events reported No headache Active Medications Current Medications Medications (Trade) Dose Ordered Sig/Gómez Route Start Time Stop Time Status Last Admin Sodium Chloride 1,000 ml @ 75 mls/hr [id number] IV 12/15/17 15:31 12/24/17 15:12 (NS Flush) 2 ml UNSCH PRN IV FLUSH 12/15/17 15:45 12/24/17 15:15 (NS Flush) 2 ml BID IV FLUSH 12/15/17 21:00 12/21/17 20:09 (Tylenol) 650 mg Q4H PRN PO 12/15/17 15:45 (Zofran Inj) 4 mg Q6H PRN IVP 12/15/17 15:45 12/22/17 04:06 (Narcan Inj) 0.4 mg UNSCH PRN IV PUSH 12/15/17 15:45 (Bonita-Colace) 1 tab BID PO 12/15/17 21:00 12/19/17 08:05 (Milk Of Magnesia Liq) 30 ml Q12H PRN PO 12/15/17 15:45 (Senokot) 17.2 mg Q12H PRN PO 12/15/17 15:45 (Dulcolax Supp) 10 mg DAILY PRN RECTAL 12/15/17 15:45 (Lactulose Liq) 30 ml DAILY PRN PO 12/15/17 15:45 (CeleXA) 40 mg DAILY PO 12/16/17 09:00 12/24/17 08:20 (Cellcept) 500 mg BID PO 12/15/17 21:00 12/24/17 08:20 (Percocet 10-325 Mg) 1 tab Q6H PRN PO 12/15/17 18:00 12/24/17 15:13 (Imitrex) 50 mg DAILY PRN PO 12/15/17 18:00 12/23/17 13:36 (Deltasone) 5 mg DAILY PO 12/16/17 09:00 12/24/17 08:20 (Fioricet 325-50-40) 1 tab Q6H PRN PO 12/15/17 18:30 12/24/17 12:02 (Proamatine) 5 mg TID PO 12/17/17 18:00 12/24/17 12:01 (Protonix) 40 mg DAILY PO 12/18/17 09:00 12/24/17 08:20 (Ferrous Sulfate) 325 mg BID@12,17 PO 12/18/17 12:00 12/24/17 12:01 (Xanax) 1 mg Q6HR PRN PO 12/23/17 11:15 12/24/17 14:13 (Neurontin) 600 mg Q8H PO 12/23/17 18:00 12/24/17 09:44 (Mestinon) 120 mg 0600,1000,1400,1800 PO 12/24/17 06:00 12/24/17 14:13 Allergies Allergies Coded Allergies penicillin G (Unverified Allergy, Severe, Anaphylaxis, 12/15/17) promethazine (Unverified Adverse Reaction, Severe, NAUSEOUS, 12/15/17) Review of Systems All other ROS: ROS reviewed as documented in chart Exam I&O / VS 12/24/17 12/24/17 12/25/17 14:59 22:59 06:59 Intake Total 240 ml Balance 240 ml Intake Oral 240 ml Vital Signs Date Time Temp Pulse Resp B/P (MAP) Pulse Ox O2 Delivery O2 Flow Rate FiO2 12/24/17 13:02 18 12/24/17 12:00 97.7 70 19 109/74 (86) 96 12/24/17 10:12 18 12/24/17 08:00 96.9 69 19 107/54 (71) 97 12/24/17 00:00 96.1 61 18 98/53 (68) 99 12/23/17 20:00 96.3 68 18 96/51 (66) 98 General: Alert and Oriented, No acute distress Eye: PERRL, EOMI, Normal conjuctiva Respiratory: Lungs CTA, Non-labored respirations, Symmetrical expansion Cardiology: Normal rate, Intact pulses, Regular Rhythm Musculoskeletal: ROM, Swelling, No calf tenderness Neurologic: Alert, Oriented, Normal motor, No focal defects, CN II-XII intact, Normal DTR's Psychiatric: Cooperative, Appropriate mood & affect, Normal judgement Objective Micro and Labs Date/Time Source Procedure Growth Status 12/21/17 17:42 Stool Stool Stool Occult Blood (MANUELITO) - Final HEMOCCULT NEGATIVE Complete Temi Zhao MD Dec 24, 2017 16:14
[2017-12-24 20:00] VITALS: BP 99/56; PULSE 78; RESP 18; TEMP 97.8; O2SAT 97
[2017-12-25 00:21] VITALS: BP 113/54; PULSE 62; RESP 18; TEMP 96.1; O2SAT 99
[2017-12-25] MEDS: GABAPENTIN 300 MG CAP PO SCH ×3 (02:45→17:51)
[2017-12-25] MEDS: ALPRAZolam 1 MG TAB PO PRN ×3 (02:46→21:27)
[2017-12-25] MEDS: oxyCODONE/ACETAMINOPHEN 10 MG/325 MG TAB PO PRN ×3 (02:46→21:27)
[2017-12-25] MEDS: SODIUM CHLOR 0.45% 1000 ML INJ 1,000 ML IV SCH (04:34)
[2017-12-25] MEDS: ACETAMIN 325 MG/BUTALBITAL 50 MG/CAFFEINE 40 MG TAB PO PRN ×3 (06:33→17:59)
[2017-12-25] MEDS: PYRIDOSTIGMINE BROMIDE 60 MG TAB PO SCH ×4 (06:48→17:51)
[2017-12-25 08:00] VITALS: BP 111/59; PULSE 71; RESP 17; TEMP 97; O2SAT 94
[2017-12-25] MEDS: PANTOPRAZOLE SOD 40 MG DELAYED RELEASE TAB PO SCH (08:50)
[2017-12-25] MEDS: CITALOPRAM HYDROBROMIDE 40 MG TAB PO SCH (08:50)
[2017-12-25] MEDS: MYCOPHENOLATE MOFETIL 500 MG TAB PO SCH ×2 (08:50→21:27)
[2017-12-25] MEDS: MIDODRINE 5 MG TAB PO SCH ×3 (08:51→17:51)
[2017-12-25] MEDS: DOCUSATE SODIUM 50 MG/SENNA 8.6 MG TAB PO SCH ×2 (08:51→21:00)
[2017-12-25] MEDS: SODIUM CHLORIDE 0.9% FLUSH 10 ML FLUSH IV FLUSH SCH ×2 (08:51→21:27)
[2017-12-25] MEDS: predniSONE 5 MG TAB PO SCH (08:51)
[2017-12-25] MEDS: SUMAtriptan SUCCINATE 50 MG TAB PO PRN (10:34)
[2017-12-25] MEDS: ONDANSETRON HCL 4 MG/2 ML VIAL IVP PRN (10:34)
--- NOTE | 2017-12-25 11:39 | HHI.PR ---
Subjective Remarks The patient was crying because she was told to be here through the weekend. She said she was going to miss her brother's . She wanted to know if she could ambulate around the halls. She reported continued anxiety. She has been having bowel movements. She wanted to know if she still needed IV fluids. Objective Vitals Vital Signs Date Time Temp Pulse Resp B/P (MAP) Pulse Ox O2 Delivery O2 Flow Rate FiO2 12/25/17 08:00 97.0 71 17 111/59 (76) 94 12/25/17 00:21 96.1 62 18 113/54 (73) 99 12/24/17 20:00 97.8 78 18 99/56 (70) 97 12/24/17 16:13 18 12/24/17 16:00 97.1 97 18 120/58 (78) 95 12/24/17 13:02 18 12/24/17 12:00 97.7 70 19 109/74 (86) 96 I/O 12/24/17 12/24/17 12/24/17 12/25/17 12/25/17 12/25/17 07:00 15:00 23:00 07:00 15:00 23:00 Intake Total 1000 ml 240 ml 850 ml 2000 ml Output Total 900 ml Balance 1000 ml 240 ml -50 ml 2000 ml Intake Oral 240 ml 850 ml 1000 ml IV Total 1000 ml 1000 ml Output Urine Total 900 ml # Voids 2 4 # Bowel Movements 1 1 Result Diagram: 12/23/17 0550 12/21/17 1937 Imaging Last Impressions Chest X-Ray 12/21/17 0000 Signed Impressions: Service Date/Time: Thursday, December 21, 2017 14:38 - CONCLUSION: No acute disease. Andrea Gonzalez MD Hip and Pelvis X-Ray 12/19/17 0000 Signed Impressions: Service Date/Time: Tuesday, December 19, 2017 10:11 - CONCLUSION: Intact right hip prosthesis No evidence of fracture or dislocation. Damon Hammonds MD Objective Remarks Gen: Anxious. HEENT: anicteric. Lungs: clear. Cardiac: regular rhythm. GI: abdomen soft. Extremities: moves all spontaneously. Neuro: Dysarthria noted. Weakness in the lower extremities improving. Psych: Teary-eyed. Medications and IVs Current Medications Medications (Trade) Dose Ordered Sig/Gómez Route Start Time Stop Time Status Last Admin Sodium Chloride 1,000 ml @ 75 mls/hr [id number] IV 12/15/17 15:31 12/25/17 04:34 (NS Flush) 2 ml UNSCH PRN IV FLUSH 12/15/17 15:45 12/24/17 15:15 (NS Flush) 2 ml BID IV FLUSH 12/15/17 21:00 12/25/17 08:51 (Tylenol) 650 mg Q4H PRN PO 12/15/17 15:45 (Zofran Inj) 4 mg Q6H PRN IVP 12/15/17 15:45 12/25/17 10:34 (Narcan Inj) 0.4 mg UNSCH PRN IV PUSH 12/15/17 15:45 (Bonita-Colace) 1 tab BID PO 12/15/17 21:00 12/19/17 08:05 (Milk Of Magnesia Liq) 30 ml Q12H PRN PO 12/15/17 15:45 (Senokot) 17.2 mg Q12H PRN PO 12/15/17 15:45 (Dulcolax Supp) 10 mg DAILY PRN RECTAL 12/15/17 15:45 (Lactulose Liq) 30 ml DAILY PRN PO 12/15/17 15:45 (CeleXA) 40 mg DAILY PO 12/16/17 09:00 12/25/17 08:50 (Cellcept) 500 mg BID PO 12/15/17 21:00 12/25/17 08:50 (Percocet 10-325 Mg) 1 tab Q6H PRN PO 12/15/17 18:00 12/25/17 08:50 (Imitrex) 50 mg DAILY PRN PO 12/15/17 18:00 12/25/17 10:34 (Deltasone) 5 mg DAILY PO 12/16/17 09:00 12/25/17 08:51 (Fioricet 325-50-40) 1 tab Q6H PRN PO 12/15/17 18:30 12/25/17 06:33 (Proamatine) 5 mg TID PO 12/17/17 18:00 12/25/17 08:51 (Protonix) 40 mg DAILY PO 12/18/17 09:00 12/25/17 08:50 (Ferrous Sulfate) 325 mg BID@12,17 PO 12/18/17 12:00 12/24/17 17:10 (Xanax) 1 mg Q6HR PRN PO 12/23/17 11:15 12/25/17 08:49 (Neurontin) 600 mg Q8H PO 12/23/17 18:00 12/25/17 08:50 (Mestinon) 120 mg 0600,1000,1400,1800 PO 12/24/17 06:00 12/25/17 10:33 A/P Problem List: (1) Myasthenia exacerbation ICD Code: G70.01 - Myasthenia exacerbation Status: Acute (2) Hypokalemia ICD Code: E87.6 - Hypokalemia (3) Weakness ICD Code: R53.1 - Weakness Status: Acute (4) Status post total hip replacement, right ICD Code: Z96.641 - Presence of right artificial hip joint Status: Acute (5) Depression ICD Code: F32.9 - Depression Status: Chronic Assessment and Plan Myasthenia exacerbation. Neurology consult appreciated. S/p IVIG for a total of 7 days. Still symptomatic. Lower extremity strength improved but still weak in upper extremities and has speech difficulties. - Continue Mestinon, CellCept and prednisone 5 mg p.o. daily. Mestinon increased by neurology. - continue PT. Added OT. - reconsulted neurology. Considering plasmapheresis. - speech therapy following. Hypokalemia Likely secondary to poor oral intake. - improved. Follow BMP in the morning. Anemia Acute on chronic iron deficiency. Hemoccult negative. - follow CBC and transfuse as needed. - continue ferrous sulfate. 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 - Continue pain control with Percocet. - PT/ OT. Depression/ Anxiety Exacerbated by news of her brother dying. Psych consult appreciated. - counselling provided. - psychiatry following. - Continue citalopram. Currently at the max dose. - Xanax 1 mg QID as needed for anxiety. Hypotension Chronic. - midodrine as needed. DVT prophylaxis: SCDs, hold Lovenox subcutaneously secondary to anemia Discharge Planning Awaiting neurology clearance. May start trial of plasmapheresis Problem Qualifiers (1) Depression: Qualified Codes: F32.9 - Major depressive disorder, single episode, unspecified Ez Valero DO Dec 25, 2017 11:39
--- NOTE | 2017-12-25 11:48 | HHI.PR ---
Review/Management Diagnosis/Plan: (1) Myasthenia gravis with exacerbation ICD Codes: G70.01 - Myasthenia gravis with exacerbation Status: Acute Plan: refractory myasthenia gravis has had multiple ivig tx's on cellcept. had hair loss with imuran recs heme eval for iv rituximab consideration would favor this over plex which she has had before if absolutely unable to get ritux in hospital then would ask heme to assist with plex tx appreciate medical and heme teams p.t. limit her opiod exposure reduce mestinon to tid (2) Migraine ICD Codes: G43.909 - Migraine Status: Chronic (3) Anxiety and depression ICD Codes: F41.9 - Anxiety disorder, unspecified; F32.9 - Major depressive disorder, single episode, unspecified Status: Chronic Subjective Subjective Comments does not feel as strong as usual when she gets ivig. speech gets slurred more quickly No headache No chest pain No dyspnea Active Medications Current Medications Medications (Trade) Dose Ordered Sig/Gómez Route Start Time Stop Time Status Last Admin (NS Flush) 2 ml UNSCH PRN IV FLUSH 12/15/17 15:45 12/24/17 15:15 (NS Flush) 2 ml BID IV FLUSH 12/15/17 21:00 12/25/17 08:51 (Tylenol) 650 mg Q4H PRN PO 12/15/17 15:45 (Zofran Inj) 4 mg Q6H PRN IVP 12/15/17 15:45 12/25/17 10:34 (Narcan Inj) 0.4 mg UNSCH PRN IV PUSH 12/15/17 15:45 (Bonita-Colace) 1 tab BID PO 12/15/17 21:00 12/19/17 08:05 (Milk Of Magnesia Liq) 30 ml Q12H PRN PO 12/15/17 15:45 (Senokot) 17.2 mg Q12H PRN PO 12/15/17 15:45 (Dulcolax Supp) 10 mg DAILY PRN RECTAL 12/15/17 15:45 (Lactulose Liq) 30 ml DAILY PRN PO 12/15/17 15:45 (CeleXA) 40 mg DAILY PO 12/16/17 09:00 12/25/17 08:50 (Cellcept) 500 mg BID PO 12/15/17 21:00 12/25/17 08:50 (Percocet 10-325 Mg) 1 tab Q6H PRN PO 12/15/17 18:00 12/25/17 08:50 (Imitrex) 50 mg DAILY PRN PO 12/15/17 18:00 12/25/17 10:34 (Deltasone) 5 mg DAILY PO 12/16/17 09:00 12/25/17 08:51 (Fioricet 325-50-40) 1 tab Q6H PRN PO 12/15/17 18:30 12/25/17 06:33 (Proamatine) 5 mg TID PO 12/17/17 18:00 12/25/17 08:51 (Protonix) 40 mg DAILY PO 12/18/17 09:00 12/25/17 08:50 (Ferrous Sulfate) 325 mg BID@12,17 PO 12/18/17 12:00 12/24/17 17:10 (Xanax) 1 mg Q6HR PRN PO 12/23/17 11:15 12/25/17 08:49 (Neurontin) 600 mg Q8H PO 12/23/17 18:00 12/25/17 08:50 (Mestinon) 120 mg 0600,1000,1400,1800 PO 12/24/17 06:00 12/25/17 10:33 Allergies Allergies Coded Allergies penicillin G (Unverified Allergy, Severe, Anaphylaxis, 12/15/17) promethazine (Unverified Adverse Reaction, Severe, NAUSEOUS, 12/15/17) Review of Systems All other ROS: ROS reviewed as documented in chart Exam I&O / VS Vital Signs Date Time Temp Pulse Resp B/P (MAP) Pulse Ox O2 Delivery O2 Flow Rate FiO2 12/25/17 08:00 97.0 71 17 111/59 (76) 94 12/25/17 00:21 96.1 62 18 113/54 (73) 99 12/24/17 20:00 97.8 78 18 99/56 (70) 97 12/24/17 16:13 18 12/24/17 16:00 97.1 97 18 120/58 (78) 95 12/24/17 13:02 18 12/24/17 12:00 97.7 70 19 109/74 (86) 96 General: Alert and Oriented, No acute distress Eye: PERRL, EOMI, Normal conjuctiva Respiratory: Non-labored respirations, Symmetrical expansion Cardiology: Normal rate, Intact pulses, Regular Rhythm Musculoskeletal: ROM Neurologic: Alert, Oriented, Normal motor, CN II-XII intact, Normal DTR's Psychiatric: Cooperative, Appropriate mood & affect, Normal judgement Exam Comments ox 3, clear speech, mild ue prox fatiguable weakness, mild left ptosis, leslie to gravity Objective Micro and Labs Date/Time Source Procedure Growth Status 12/21/17 17:42 Stool Stool Stool Occult Blood (MANUELITO) - Final HEMOCCULT NEGATIVE Complete Problem Qualifiers (1) Migraine: Artie Vizcarra MD Dec 25, 2017 11:48
[2017-12-25 12:00] VITALS: BP 127/61; PULSE 67; RESP 18; TEMP 97.6; O2SAT 97
[2017-12-25] MEDS: FERROUS SULFATE 325 MG (65 MG ELEMENTAL IRON) TAB PO SCH ×2 (12:18→17:51)
[2017-12-25 16:00] VITALS: BP 121/60; PULSE 71; RESP 16; TEMP 96.3; O2SAT 97
--- NOTE | 2017-12-25 18:34 | MB ---
cc: Luis Armando Lopez MD DATE OF CONSULT: 12/25/2017 REASON FOR CONSULTATION: The patient with myasthenia gravis. I have been asked to give her Rituxan due to refractory disease. PATIENT PROFILE: The patient is a 42-year-old white female. She is . She lives at home with her ex- and 2 sons, aged 10 and 12. She is disabled. She had worked in the past for [employer] in the [employer]. She stopped smoking 4 months ago and smoked half pack of cigarettes per day for 15 years. She does not drink alcohol. HISTORY OF PRESENT ILLNESS: The patient is a 42-year-old female who has had myasthenia gravis for approximately 7 years. Her neurologists are Dr. De La Fuente, and Dr. Vizcarra. She has had multiple treatments and most recently has had frequent doses of IVIG every 4-8 weeks. She takes CellCept. 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 I was contacted today by Dr. Vizcarra asking that the patient be treated with Rituxan with the recommended dose 375 mg/m2 weekly x 4. This has been described in [place] [employer] [facility] and other journals and has been successful. The patient is frustrated with her continued inability to have a normal life. At times, she has difficulty swallowing and rarely speech. She has weakness. Her medications have been altered on multiple occasions and over the past year, she feels that her symptoms have not been able to be well controlled. The patient has anemia. In reviewing the records, it is apparent that she has iron deficiency anemia. Hemoglobin today is 8.1; white count 5100; platelets are 253,000; MCV is 74, and her most recent iron study consists of a ferritin of 6 on 12/18/2017, iron of 12, TIBC of 318, and saturation of 4%. She indicates that her stools have been checked for blood and none has been found. In looking back over her previous CBC and platelet counts on 11/19/2017, she had a hemoglobin of 6.8. Even back as far as 03/10/2017, she was anemic with a hemoglobin of 7.9. PAST SURGICAL HISTORY: 1. Right hip replacement 11/15/[address] Baron. 2. Thymectomy by Dr. Zaragoza 02/19/2014. 3. On 01/24/2016, patient had upper and lower endoscopy. 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 She had moderate acute and chronic inflammatory changes with reflux involving the gastroesophageal region. Colonic biopsy showed a mild acute nonspecific colitis. PAST MEDICAL HISTORY: 1. Myasthenia gravis for 7 years. 2. Orthostatic hypotension. 3. Mild anemia. 4. Depression. 5. Anxiety. CURRENT MEDICATIONS: 1. Prednisone 5 mg a day. 2. Mestinon 120 t.i.d. 3. She just started oral iron. 4. CellCept 500 b.i.d. 5. Celexa 40 mg a day. 6. Xanax 1 mg p.o. q.i.d. 7. Percocet. ALLERGIES: PENICILLIN AND PROMETHAZINE. FAMILY HISTORY: Noncontributory. REVIEW OF SYSTEMS: Notable for the neurologic problems with occasional difficulty swallowing and occasional visual problems, weakness. She has had arthritic problems with aseptic necrosis of the right hip. She struggles with depression and anxiety. She does not feel well. She has very little energy. PHYSICAL EXAMINATION: GENERAL: Reveals a slender female. VITAL SIGNS: Blood pressure 120/60, respiratory rate 16, pulse 70, afebrile. O2 saturation 97%. HEENT: Head is normocephalic. Sclerae and conjunctivae are normal. Oropharynx unremarkable. LYMPHATICS: There is no cervical, supraclavicular, axillary or inguinal adenopathy. HEART: Regular rate and rhythm. LUNGS: Clear. ABDOMEN: Soft. No hepatosplenomegaly or masses. EXTREMITIES: No edema. MUSCULOSKELETAL: No bone pain. NEUROLOGIC: Gait is normal. No obvious localizing weakness. ASSESSMENT AND PLAN: 1. The patient is a 42-year-old female. She has myasthenia gravis. She has been on multiple medicines currently taking prednisone, Mestinon and CellCept. She receives IVIG. She has had complications with aseptic necrosis of the hip from steroids. As per discussions with Dr. Vizcarra, the patient will be treated with Rituxan. I am hoping to move her to the oncology floor tomorrow morning and will make arrangements for weekly Rituxan times 4. The initial Rituxan can be given as an inpatient and the other doses can be an outpatient. 2. She has iron deficiency anemia. She has had it for quite a while. She had a ferritin of 6 on 09/09/2017. She is symptomatic. I am going to give her IV iron sucrose 200 mg daily, for up to 3 days and she will continue oral iron. This should hopefully correct her anemia quickly which is contributing to global weakness Orders have been written for IV iron sucrose, transfer to the oncology floor and for Rituxan tomorrow assuming she can be transferred to the oncology floor. MD JUSTIN Sullivan/CARLO , 05:50 PM , 06:32 PM ALISTAIR
[2017-12-25 20:23] VITALS: BP 108/66; PULSE 67; RESP 20; TEMP 98; O2SAT 100
[2017-12-26] VITALS (27 sets, daily range): BP systolic 95–135; BP diastolic 52–87; PULSE 56–92; RESP 16–20; TEMP 97.2–98.6; O2SAT 96–99
[2017-12-26] MEDS: oxyCODONE/ACETAMINOPHEN 10 MG/325 MG TAB PO PRN ×4 (03:38→22:15)
[2017-12-26] MEDS: ALPRAZolam 1 MG TAB PO PRN ×3 (03:38→17:25)
[2017-12-26] MEDS: GABAPENTIN 300 MG CAP PO SCH ×4 (03:39→23:45)
[2017-12-26 06:08] LABS: CREATININE 0.54 MG/DL (0.50-1.00)
[2017-12-26 06:09] LABS: BICARBONATE 31.1 MEQ/L (21.0-32.0); CALCIUM 8.5 MG/DL (8.5-10.1); HEMATOCRIT 28.1 % (35.0-46.0); HEMOGLOBIN 8.8 GM/DL (11.6-15.3); MAGNESIUM 1.9 MG/DL (1.5-2.5); MEAN CELL VOLUME 77.1 FL (80.0-100.0); MEAN CORPUSCULAR HEMOGLOBIN 24.3 PG (27.0-34.0); MEAN CORPUSCULAR HGB CONC 31.5 % (32.0-36.0); MEAN PLATELET VOLUME 8.4 FL (7.0-11.0); PLATELET COUNT 330 TH/MM3 (150-450); RED BLOOD COUNT 3.64 MIL/MM3 (4.00-5.30); RED CELL DISTRIBUTION WIDTH 20.9 % (11.6-17.2)
[2017-12-26] MEDS: PYRIDOSTIGMINE BROMIDE 60 MG TAB PO SCH ×3 (07:49→17:25)
[2017-12-26] MEDS: ACETAMIN 325 MG/BUTALBITAL 50 MG/CAFFEINE 40 MG TAB PO PRN ×3 (07:51→14:05)
[2017-12-26] MEDS: DOCUSATE SODIUM 50 MG/SENNA 8.6 MG TAB PO SCH ×2 (09:00→21:00)
[2017-12-26] MEDS: MIDODRINE 5 MG TAB PO SCH ×3 (09:34→17:27)
[2017-12-26] MEDS: predniSONE 5 MG TAB PO SCH (09:34)
[2017-12-26] MEDS: CITALOPRAM HYDROBROMIDE 40 MG TAB PO SCH (09:34)
[2017-12-26] MEDS: MYCOPHENOLATE MOFETIL 500 MG TAB PO SCH ×2 (09:34→22:14)
[2017-12-26] MEDS: PANTOPRAZOLE SOD 40 MG DELAYED RELEASE TAB PO SCH (09:34)
[2017-12-26] MEDS ORDERED: IRON SUCROSE INJ 200 MG in SODIUM CHLORIDE 0.9% INJ 100 ML IV SCH (10:00)
--- NOTE | 2017-12-26 10:17 | PD.ONC.PN ---
Subjective Subjective Remarks Afebrile overnight. Continuing to have difficulty with speech and difficulty swallowing. eager to try Rituxan today. slept ok last night. Objective Data Date Time Temp Pulse Resp B/P (MAP) Pulse Ox O2 Delivery O2 Flow Rate FiO2 12/26/17 08:33 98.6 71 16 108/69 (82) 96 12/26/17 04:00 98.0 77 20 95/62 (73) 98 12/26/17 00:00 98.0 92 20 100/67 (78) 98 12/25/17 20:23 98.0 67 20 108/66 (80) 100 12/25/17 16:00 96.3 71 16 121/60 (80) 97 12/25/17 12:00 97.6 67 18 127/61 (83) 97 12/26/17 12/26/17 12/26/17 07:00 15:00 23:00 Intake Total 480 ml Balance 480 ml Result Diagram: 12/26/17 0400 12/26/17 0400 Laboratory Results Laboratory Tests Test 12/26/17 04:00 White Blood Count 8.0 TH/MM3 Red Blood Count 3.64 MIL/MM3 Hemoglobin 8.8 GM/DL Hematocrit 28.1 % Mean Corpuscular Volume 77.1 FL Mean Corpuscular Hemoglobin 24.3 PG Mean Corpuscular Hemoglobin Concent 31.5 % Red Cell Distribution Width 20.9 % Platelet Count 330 TH/MM3 Mean Platelet Volume 8.4 FL Blood Urea Nitrogen 7 MG/DL Creatinine 0.54 MG/DL Random Glucose 80 MG/DL Calcium Level 8.5 MG/DL Magnesium Level 1.9 MG/DL Sodium Level 141 MEQ/L Potassium Level 3.5 MEQ/L Chloride Level 105 MEQ/L Carbon Dioxide Level 31.1 MEQ/L Anion Gap 5 MEQ/L Estimat Glomerular Filtration Rate 124 ML/MIN Administered Medications Medications (Trade) Dose Ordered Sig/Gómez Route PRN Reason Start Time Stop Time Status Last Admin Dose Admin Sodium Chloride (NS Flush) 2 ml UNSCH PRN IV FLUSH FLUSH AFTER USING IV ACCESS 12/15/17 15:45 12/24/17 15:15 Sodium Chloride (NS Flush) 2 ml BID IV FLUSH 12/15/17 21:00 12/25/17 21:27 Ondansetron HCl (Zofran Inj) 4 mg Q6H PRN IVP NAUSEA OR VOMITING 12/15/17 15:45 12/26/17 00:00 Senna/Docusate Sodium (Bonita-Colace) 1 tab BID PO 12/15/17 21:00 12/19/17 08:05 Citalopram Hydrobromide (CeleXA) 40 mg DAILY PO 12/16/17 09:00 12/26/17 09:34 Mycophenolate Mofetil (Cellcept) 500 mg BID PO 12/15/17 21:00 12/26/17 09:34 Oxycodone/ Acetaminophen (Percocet 10-325 Mg) 1 tab Q6H PRN PO PAIN SCALE 1 TO 10 12/15/17 18:00 12/26/17 09:39 Sumatriptan Succinate (Imitrex) 50 mg DAILY PRN PO HEADACHE 12/15/17 18:00 12/25/17 10:34 Prednisone (Deltasone) 5 mg DAILY PO 12/16/17 09:00 12/26/17 09:34 Acetaminophen/ Butalbital/ Caffeine (Fioricet 325-50-40) 1 tab Q6H PRN PO HEADACHE 12/15/17 18:30 12/26/17 07:51 Midodrine (Proamatine) 5 mg TID PO 12/17/17 18:00 12/26/17 09:34 Pantoprazole Sodium (Protonix) 40 mg DAILY PO 12/18/17 09:00 12/26/17 09:34 Ferrous Sulfate (Ferrous Sulfate) 325 mg BID@12,17 PO 12/18/17 12:00 12/25/17 17:51 Alprazolam (Xanax) 1 mg Q6HR PRN PO ANXIETY 12/23/17 11:15 12/26/17 09:34 Gabapentin (Neurontin) 600 mg Q8H PO 12/23/17 18:00 12/26/17 09:34 Pyridostigmine [place] (Mestinon) 120 mg TID PO 12/25/17 13:00 12/26/17 07:49 Objective Remarks GENERAL: Middle aged female, sitting up in bed in [facility]. SKIN: Warm and dry. HEAD: Normocephalic. EYES: No injection or drainage. NECK: Supple, trachea midline. CARDIOVASCULAR: Regular rate and rhythm without murmurs. RESPIRATORY: Breath sounds equal bilaterally. No accessory muscle use. GASTROINTESTINAL: Abdomen soft, non-tender, nondistended. EXTREMITIES: No cyanosis NEUROLOGICAL: somewhat garbled speech, otherwise I observe no focal deficits. moving all extremities. facial movements symmetric. Assessment/Plan Assessment 42y/o female with myasthenia gravis. Oncology consulted for administration of Rituxan for refractory disease. --takes Mestinon and Cellcept for MG Plan 1. Myasthenia Gravis. Give Rituxan at weekly dose of 375mg/m2 today. Chemotherapy teaching will be done beforehand. 2. give IV iron. continue Oral iron 3. from an oncology standpoint, patient can be discharged after her dose of Rituxan today Attending Statement The exam, history, and the medical decision-making described in the above note were completed with the assistance of the mid-level provider. I reviewed and agree with the findings presented. I attest that I had a [id number] encounter with the patient on the same day, and personally performed and documented my assessment and findings in the medical record. tolerated iv iron well and can go home today after Rituxan. She will take iron sulfate 325 mg po bid and I will follow up as outpatient. I am optimistic. It is important to get her discharged today as she has her brother's tomorrow. Lor Ochoa Dec 26, 2017 10:17 Luis Armando Lopez MD Dec 26, 2017 13:39
[2017-12-26] MEDS: SODIUM CHLORIDE 0.9% FLUSH 10 ML FLUSH IV FLUSH SCH ×2 (10:18→21:32)
[2017-12-26] MEDS: SUMAtriptan SUCCINATE 50 MG TAB PO PRN (11:46)
[2017-12-26] MEDS: FERROUS SULFATE 325 MG (65 MG ELEMENTAL IRON) TAB PO SCH ×2 (11:46→16:25)
--- NOTE | 2017-12-26 11:46 | HHI.PR ---
Subjective Remarks Follow-up refractory myasthenia Gravis with exacerbation 12/26/17-patient seen and examined, she still has some difficulty with swallowing as well as speech otherwise stable. She is looking forward to being discharged today note to attend her brother's Objective Vitals Vital Signs Date Time Temp Pulse Resp B/P (MAP) Pulse Ox O2 Delivery O2 Flow Rate FiO2 12/26/17 11:00 78 12/26/17 09:00 74 12/26/17 08:33 98.6 71 16 108/69 (82) 96 12/26/17 08:00 82 12/26/17 07:00 70 12/26/17 04:00 98.0 77 20 95/62 (73) 98 12/26/17 00:00 98.0 92 20 100/67 (78) 98 12/25/17 20:23 98.0 67 20 108/66 (80) 100 12/25/17 16:00 96.3 71 16 121/60 (80) 97 12/25/17 12:00 97.6 67 18 127/61 (83) 97 I/O 12/25/17 12/25/17 12/25/17 12/26/17 12/26/17 12/26/17 07:00 15:00 23:00 07:00 15:00 23:00 Intake Total 2000 ml 1080 ml 480 ml Balance 2000 ml 1080 ml 480 ml Intake Oral 1000 ml 1080 ml 480 ml IV Total 1000 ml # Voids 4 5 4 # Bowel Movements 1 2 Result Diagram: 12/26/17 0400 12/26/17 0400 Imaging Last Impressions Chest X-Ray 12/21/17 0000 Signed Impressions: Service Date/Time: Thursday, December 21, 2017 14:38 - CONCLUSION: No acute disease. Andrea Gonzalez MD Hip and Pelvis X-Ray 12/19/17 0000 Signed Impressions: Service Date/Time: Tuesday, December 19, 2017 10:11 - CONCLUSION: Intact right hip prosthesis No evidence of fracture or dislocation. Damon Hammonds MD Objective Remarks GENERAL: NAD SKIN: Warm and dry. HEAD: Normocephalic. EYES: No scleral icterus. No injection or drainage. NECK: Supple, trachea midline. No JVD or lymphadenopathy. CARDIOVASCULAR: Regular rate and rhythm without murmurs, gallops, or rubs. RESPIRATORY: Breath sounds equal bilaterally. No accessory muscle use. GASTROINTESTINAL: Abdomen soft, non-tender, nondistended. MUSCULOSKELETAL: No cyanosis, or edema. BACK: Nontender without obvious deformity. No CVA tenderness. Neuro: garbled speech, CN II-XII intact Procedures None A/P Problem List: (1) Myasthenia exacerbation ICD Code: G70.01 - Myasthenia exacerbation Status: Acute (2) Hypokalemia ICD Code: E87.6 - Hypokalemia (3) Weakness ICD Code: R53.1 - Weakness Status: Acute (4) Status post total hip replacement, right ICD Code: Z96.641 - Presence of right artificial hip joint Status: Acute (5) Depression ICD Code: F32.9 - Depression Status: Chronic Assessment and Plan 42-year-old female with Refractory Myasthenia exacerbation with exacerbation. S/p IVIG for a total of 7 days. - Continue Mestinon, CellCept and prednisone 5 mg p.o. daily. -Plan for Rituxan administration today 12/26/17 by Medical Oncology - continue PT. Added OT. Hypokalemia -Resolved status post replacement Anemia Acute on chronic iron deficiency. Hemoccult negative. 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 - Continue pain control with Percocet. - PT/ OT. Depression/ Anxiety Exacerbated by news of her brother dying. Psych consult appreciated. - psychiatry ff. - Continue citalopram and Xanax 1 mg QID as needed for anxiety. Hypotension Chronic. - midodrine as needed. DVT prophylaxis: SCDs, hold Lovenox subcutaneously secondary to anemia Problem Qualifiers (1) Depression: Qualified Codes: F32.9 - Major depressive disorder, single episode, unspecified Reginald Aleman MD Dec 26, 2017 11:46
[2017-12-26] MEDS ORDERED: XANA1TAB2 PO (11:52)
[2017-12-26] MEDS ORDERED: NEUR300C PO (11:52)
--- NOTE | 2017-12-26 11:54 | HHI.DS ---
Discharge Summary Admission Date Dec 15, 2017 at 15:37 Discharge Date: Dec 26, 2017 Admitting Diagnosis exacerbation of myasthenia gravis (1) Myasthenia exacerbation ICD Code: G70.01 - Myasthenia exacerbation Status: Acute (2) Hypokalemia ICD Code: E87.6 - Hypokalemia (3) Weakness ICD Code: R53.1 - Weakness Status: Acute (4) Status post total hip replacement, right ICD Code: Z96.641 - Presence of right artificial hip joint Status: Acute (5) Depression ICD Code: F32.9 - Depression Status: Chronic Procedures None Brief History - From Admission This is a 42-year-old female with past medical history significant for myasthenia gravis who presents to the emergency department for evaluation of exacerbation of her symptoms. The patient states that she started having weakness in all extremities, difficulty talking, double vision. All symptoms started yesterday afternoon. The patient however denies any fevers, chills, abdominal pain, nausea, vomiting, chest pain, shortness of breath, cough, diarrhea, constipation, lower extremity edema, skin lesions. The patient however states that she thinks she might have a urinary tract infection since she has had some urinary discomfort. CBC/BMP: 12/26/17 0400 12/26/17 0400 Significant Findings Laboratory Tests Test 12/26/17 04:00 Red Blood Count 3.64 MIL/MM3 (4.00-5.30) Hemoglobin 8.8 GM/DL (11.6-15.3) Hematocrit 28.1 % (35.0-46.0) Mean Corpuscular Volume 77.1 FL (80.0-100.0) Mean Corpuscular Hemoglobin 24.3 PG (27.0-34.0) Mean Corpuscular Hemoglobin Concent 31.5 % (32.0-36.0) Red Cell Distribution Width 20.9 % (11.6-17.2) Imaging Last Impressions Chest X-Ray 12/21/17 0000 Signed Impressions: Service Date/Time: Thursday, December 21, 2017 14:38 - CONCLUSION: No acute disease. Andrea Gonzalez MD Hip and Pelvis X-Ray 12/19/17 0000 Signed Impressions: Service Date/Time: Tuesday, December 19, 2017 10:11 - CONCLUSION: Intact right hip prosthesis No evidence of fracture or dislocation. Damon Hammonds MD PE at Discharge GENERAL: NAD SKIN: Warm and dry. HEAD: Normocephalic. EYES: No scleral icterus. No injection or drainage. NECK: Supple, trachea midline. No JVD or lymphadenopathy. CARDIOVASCULAR: Regular rate and rhythm without murmurs, gallops, or rubs. RESPIRATORY: Breath sounds equal bilaterally. No accessory muscle use. GASTROINTESTINAL: Abdomen soft, non-tender, nondistended. MUSCULOSKELETAL: No cyanosis, or edema. BACK: Nontender without obvious deformity. No CVA tenderness. Neuro: garbled speech, CN II-XII intact Hospital Course While in the hospital, she was treated for; Refractory Myasthenia exacerbation with exacerbation. S/p IVIG for a total of 7 days. - She was treated with Mestinon, CellCept and prednisone 5 mg p.o. daily. -Oncology was consulted and patient was given Rituxan 12/26/17 - PT and OT were consulted Hypokalemia -Resolved status post replacement Anemia Acute on chronic iron deficiency. Hemoccult negative. 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 - Treated with pain control with Percocet. - PT/ OT. Depression/ Anxiety - Psychiatry was consulted, and her medication was adjusted accordingly and patient was treated with citalopram and Xanax 1 mg QID as needed for anxiety. Hypotension Chronic. - midodrine as needed. DVT prophylaxis: SCDs, hold Lovenox subcutaneously secondary to anemia Pt Condition on Discharge: Good Discharge Disposition: Disch w/ Home Health Serv Discharge Time: > 30 minutes Discharge Instructions DIET: Follow Instructions for: Heart Healthy Diet Activities you can perform: Regular-No Restrictions Reginald Aleman MD Dec 26, 2017 11:54
--- NOTE | 2017-12-26 13:10 | HHI.PR ---
Review/Management Diagnosis/Plan: (1) Myasthenia gravis with exacerbation ICD Codes: G70.01 - Myasthenia gravis with exacerbation Status: Acute Plan: refractory myasthenia gravis has had multiple ivig tx's on cellcept. had hair loss with imuran recs iv ritux today appreciate heme eval and assistance with tx appreciate medical p.t. d/c planning once cleared by onc outpatient f/u. wants to attend brother's tomorrow (2) Migraine ICD Codes: G43.909 - Migraine Status: Chronic (3) Anxiety and depression ICD Codes: F41.9 - Anxiety disorder, unspecified; F32.9 - Major depressive disorder, single episode, unspecified Status: Chronic Subjective Subjective Comments No acute events reported fatiguable weakness and voice changes No headache No chest pain No dyspnea Active Medications Current Medications Medications (Trade) Dose Ordered Sig/Gómez Route Start Time Stop Time Status Last Admin (NS Flush) 2 ml UNSCH PRN IV FLUSH 12/15/17 15:45 12/24/17 15:15 (NS Flush) 2 ml BID IV FLUSH 12/15/17 21:00 12/26/17 10:18 (Tylenol) 650 mg Q4H PRN PO 12/15/17 15:45 (Zofran Inj) 4 mg Q6H PRN IVP 12/15/17 15:45 12/26/17 00:00 (Narcan Inj) 0.4 mg UNSCH PRN IV PUSH 12/15/17 15:45 (Bonita-Colace) 1 tab BID PO 12/15/17 21:00 12/19/17 08:05 (Milk Of Magnesia Liq) 30 ml Q12H PRN PO 12/15/17 15:45 (Senokot) 17.2 mg Q12H PRN PO 12/15/17 15:45 (Dulcolax Supp) 10 mg DAILY PRN RECTAL 12/15/17 15:45 (Lactulose Liq) 30 ml DAILY PRN PO 12/15/17 15:45 (CeleXA) 40 mg DAILY PO 12/16/17 09:00 12/26/17 09:34 (Cellcept) 500 mg BID PO 12/15/17 21:00 12/26/17 09:34 (Percocet 10-325 Mg) 1 tab Q6H PRN PO 12/15/17 18:00 12/26/17 09:39 (Imitrex) 50 mg DAILY PRN PO 12/15/17 18:00 12/26/17 11:46 (Deltasone) 5 mg DAILY PO 12/16/17 09:00 12/26/17 09:34 (Fioricet 325-50-40) 1 tab Q6H PRN PO 12/15/17 18:30 12/26/17 07:51 (Proamatine) 5 mg TID PO 12/17/17 18:00 12/26/17 12:18 (Protonix) 40 mg DAILY PO 12/18/17 09:00 12/26/17 09:34 (Ferrous Sulfate) 325 mg BID@12,17 PO 12/18/17 12:00 12/26/17 11:46 (Xanax) 1 mg Q6HR PRN PO 12/23/17 11:15 12/26/17 09:34 (Neurontin) 600 mg Q8H PO 12/23/17 18:00 12/26/17 09:34 (Mestinon) 120 mg TID PO 12/25/17 13:00 12/26/17 12:18 Iron Sucrose 200 mg/Sodium Chloride 110 ml @ 110 mls/hr DAILY IV 12/26/17 10:00 12/28/17 09:59 12/26/17 10:18 (Tylenol) 650 mg ONCE ONCE PO 12/26/17 14:30 12/26/17 14:31 (Benadryl) 50 mg ONCE ONCE PO 12/26/17 14:30 12/26/17 14:31 Rituximab 581 mg/ Sodium Chloride 558.1 ml @ 0 mls/hr ONCE ONCE IV 12/26/17 15:00 12/26/17 15:01 Sodium Chloride 1,000 ml @ 100 mls/hr Q10H IV 12/26/17 15:00 12/27/17 23:59 Allergies Allergies Coded Allergies penicillin G (Unverified Allergy, Severe, Anaphylaxis, 12/15/17) promethazine (Unverified Adverse Reaction, Severe, NAUSEOUS, 12/15/17) Review of Systems All other ROS: ROS reviewed as documented in chart Exam I&O / VS Vital Signs Date Time Temp Pulse Resp B/P (MAP) Pulse Ox O2 Delivery O2 Flow Rate FiO2 12/26/17 12:25 98.0 71 16 122/79 (93) 97 12/26/17 11:00 78 12/26/17 09:00 74 12/26/17 08:33 98.6 71 16 108/69 (82) 96 12/26/17 08:00 82 12/26/17 07:00 70 12/26/17 04:00 98.0 77 20 95/62 (73) 98 12/26/17 00:00 98.0 92 20 100/67 (78) 98 12/25/17 20:23 98.0 67 20 108/66 (80) 100 12/25/17 16:00 96.3 71 16 121/60 (80) 97 General: Alert and Oriented, No acute distress Eye: PERRL, EOMI, Normal conjuctiva Respiratory: Non-labored respirations, Symmetrical expansion Cardiology: Normal rate, Intact pulses, Regular Rhythm Musculoskeletal: ROM Neurologic: Alert, Oriented, Normal motor, CN II-XII intact, Normal DTR's Psychiatric: Cooperative, Appropriate mood & affect, Normal judgement Exam Comments ox 3, clear speech but gets slurred towards end, mild ue prox fatiguable weakness, mild left ptosis, leslie to gravity Objective Micro and Labs Laboratory Tests Test 12/26/17 04:00 White Blood Count 8.0 Red Blood Count 3.64 Hemoglobin 8.8 Hematocrit 28.1 Mean Corpuscular Volume 77.1 Mean Corpuscular Hemoglobin 24.3 Mean Corpuscular Hemoglobin Concent 31.5 Red Cell Distribution Width 20.9 Platelet Count 330 Mean Platelet Volume 8.4 Blood Urea Nitrogen 7 Creatinine 0.54 Random Glucose 80 Calcium Level 8.5 Magnesium Level 1.9 Sodium Level 141 Potassium Level 3.5 Chloride Level 105 Carbon Dioxide Level 31.1 Anion Gap 5 Estimat Glomerular Filtration Rate 124 Date/Time Source Procedure Growth Status 12/21/17 17:42 Stool Stool Stool Occult Blood ([facility]) - Final HEMOCCULT NEGATIVE Complete Problem Qualifiers (1) Migraine: Artie Vizcarra MD Dec 26, 2017 13:10
[2017-12-26] MEDS: ONDANSETRON HCL 4 MG/2 ML VIAL IVP PRN ×3 (14:05→22:14)
[2017-12-26] MEDS ORDERED: diphenhydrAMINE HCL 50 MG CAP PO ONE (14:30)
[2017-12-26] MEDS ORDERED: ACETAMINOPHEN 325 MG TAB PO ONE (14:30)
[2017-12-26] MEDS ORDERED: RITUXIMAB IV ONE (15:00)
[2017-12-26] MEDS ORDERED: SODIUM CHLORID 0.9% IV ONE (15:00)
[2017-12-26] MEDS ORDERED: MEPERIDINE HCL 25 MG/ML VIAL IV PUSH PRN (15:15)
[2017-12-26] MEDS: SODIUM CHLOR 0.9% 1000 ML INJ 1,000 ML IV SCH ×2 (16:24→23:45)
[2017-12-26] MEDS: SODIUM CHLORIDE 0.9% FLUSH 10 ML FLUSH IV FLUSH PRN (22:30)
== END 2017-12-26 22:40 | disposition home health service (06) | DRG 57 ==
LOC: NEDAMB 12:28 → NEDA 14:20 → OBSVTOIN 15:37 → NEPGCP 16:16 → N07A 12-17 19:45 → HCIN 12-25 20:24
PROVIDERS: ADMIT Hospitalist; ATTEND Hospitalist
DX: G70.01 Myasthenia gravis with (acute) exacerbation (principal); I10 Essential (primary) hypertension; F32.9 Major depressive disorder, single episode, unspecified; D50.9 Iron deficiency anemia, unspecified; E87.6 Hypokalemia; G43.909 Migraine, unspecified, not intractable, without status migrainosus; F43.22 Adjustment disorder with anxiety; Z87.891 Personal history of nicotine dependence; Z88.0 Allergy status to penicillin; Z96.641 Presence of right artificial hip joint
CPT/HCPCS: 71045; 73502; 80048; 80053; 81001; 82272; 82607; 82728; 82746; 83540; 83550; 83735; 84443; 85025; 85027; 85610; 85730; 93005; J1459; J1756; J2060; J2405; J7030; J7040; J7060; J7512; J7517; J9310; Q0163

== ENCOUNTER 2018-01-08 18:27 | Inpatient (IN) | payer MEDICARE, MEDICAID ==
[~2018-01-08] VITALS: Ht 162.6 cm; Wt 51.3 kg
[2018-01-08] MEDS: IMMUNE GLOBULIN INJ 20 GM in SYRINGE/BAG 1 EA IV SCH (02:30)
[~2018-01-08 18:27] MED LIST changes: -ALPR.5 PO; -ASPI-516 CHEW; +FERR325T20 PO; +MIDO5TAB PO; -OXYC15TA PO; +PERC10TA27 PO; -PERI PO; -THERTAB15 PO; -WALKER/ADULT/FO1 MIS; +XANA1TAB2 PO
--- NOTE | 2018-01-08 18:41 | PD ---
Physical Exam Date Seen by Provider: Jan 08, 2018 Narrative This patient is brought in by rescue for altered mental status. It turns out that this patient has a history of myasthenia gravis. She cannot talk. She is having difficulty breathing. MDM Supervised Visit with DARRIAN: Yes Narrative Course I, Dr. Bradford, have reviewed the advance practice practitioner's documentation and am in agreement, met with the patient face to face, made the diagnosis, and the medical decision making was done by me. *My assessment and Findings: Patient is lying on the stretcher with her eyes wide open. She is having trouble closing her mouth. She is having difficulty breathing. Please see Rosa Flores NP's note for results of laboratory and radiographic evaluation, ED course, final diagnosis and disposition. She is basically following the same treatment plan from her most recent admission. Neurology has been consulted. Emma Bradford MD Jan 08, 2018 18:41
[2018-01-08 18:43] VITALS: BP 155/66; PULSE 54; RESP 18; TEMP 97.8; O2SAT 99
[2018-01-08] MEDS ORDERED: ONDANSETRON HCL 4 MG/2 ML VIAL ONE (18:44)
[2018-01-08] MEDS ORDERED: SODIUM CHLORIDE 0.9% FLUSH 10 ML FLUSH IV FLUSH PRN (18:45)
[2018-01-08 18:47] VITALS: BP 155/66; PULSE 45; RESP 18; O2SAT 100; O2SAT 98
[2018-01-08] MEDS ORDERED: ASPI-516 CHEW (18:57)
[2018-01-08] MEDS ORDERED: D5W as prime bag (IVIG as secondary) IV SCH (19:15)
[2018-01-08] MEDS ORDERED: NS 500 ML Pre-hydration IV SCH (19:15)
[2018-01-08] MEDS ORDERED: ACETAMINOPHEN 325 MG TAB Pre-med PO ONE (19:15)
[2018-01-08] MEDS ORDERED: EPINEPHRINE HCL (1:1000) 1 MG/ML AMP Reaction Med OTHER PRN (19:15)
[2018-01-08] MEDS ORDERED: DIPHENHYDRAMINE HCL 25 MG CAP Pre-med PO ONE (19:15)
[2018-01-08] MEDS ORDERED: DIPHENHYDRAMINE HCL 50 MG/ML VIAL Reaction Med IV PUSH PRN (19:15)
--- NOTE | 2018-01-08 19:22 | PD ---
HPI Chief Complaint: Altered Mental Status Time Seen by Provider: 18:33 Travel History International Travel<30 days: No Contact w/Intl Traveler<30days: No Traveled to known affect area: No History of Present Illness HPI Patient is a 42-year-old female presenting to the emergency department for evaluation of altered mental status. Per EMS patient's ex- found her in bed yesterday, apparently at that time she was still verbal. When he returned home this afternoon she was not responding, stiff and moaning. H&P is limited due to patient's clinical condition. She does have a history of myasthenia gravis and was admitted a month ago with exacerbation. Patient's mother and brother presented to the bedside, they state that she has been sick with flulike symptoms all week including nausea and vomiting and diarrhea. She has been unable to keep down any of her medications. Every time she eats she has a bowel movement. PFSH Past Medical History Anemia: Yes Anxiety: Yes Depression: Yes Cardiovascular Problems: Yes Headaches: Yes Implanted Vascular Access Dvce: Yes (left chest power port) Musculoskeletal: Yes (AVASCULAR NECROSIS IN THE HIP) Neurologic: Yes (MYASTHENIA GRAVIS - Jul, 2013) Migraines: Yes ?: Unknown : 2 Para: 2 Dilation and Curettage (D&C): Yes Tubal Ligation: Yes Past Surgical History Body Medical Devices: LEFT IMPLANTED PORT Endocrine Surgery: Yes ( thymus removed) Gynecologic Surgery: Yes (tubal ligation 2014) Joint Replacement: Yes (11/2017) Tonsillectomy: Yes Social History Alcohol Use: No Tobacco Use: No Substance Use: No Allergies-Medications (Allergen,Severity, Reaction): Coded Allergies: penicillin G (Unverified Allergy, Severe, Anaphylaxis, 01/08/18) promethazine (Unverified Adverse Reaction, Severe, NAUSEOUS, 01/08/18) Reported Meds & Prescriptions Reported Meds & Active Scripts Active Neurontin (Gabapentin) 300 Mg Cap 600 Mg PO Q8H Xanax (Alprazolam) 1 Mg Tab 1 Mg PO Q6HR PRN Ferosul (Ferrous Sulfate) 325 Mg (65 Mg Iron) Tablet 325 Mg PO BID@12,17 30 Days Neurontin (Gabapentin) 300 Mg Cap 300 Mg PO Q8H [Aglw-[id number]-Jbtx 325-50-40 Mg] 1 TAB Tab 1 Tab PO Q6H PRN Mestinon (Pyridostigmine [place]) 60 Mg Tab 120 Mg PO TIDAC Cellcept (Mycophenolate Mofetil) 500 Mg Tab 500 Mg PO BID Prednisone 5 Mg Tab 5 Mg PO DAILY Citalopram (Citalopram Hydrobromide) 40 Mg Tab 40 Mg PO DAILY Lactinex (Lactobacillus Acidophilus) 1 Chew 1 Tab CHEW DAILY Imitrex (Sumatriptan Succinate) 50 Mg Tab 50 Mg PO NEEDED PRN If a satisfactory response has not been obtained at 2 hours, a second dose may be administered Reported Aspirin 81 Mg Chew 81 Mg CHEW DAILY Midodrine 5 Mg Tab 5 Mg PO BID Percocet (Oxycodone-Acetaminophen) 10-325 mg Tab 1 Tab PO Q6H PRN Xanax (Alprazolam) 1 Mg Tab 1 Mg PO Q8H PRN Review of Systems ROS Limitations: Clinical Condition Except as stated in HPI: all other systems reviewed are Neg Musculoskeletal: Positive: Limited ROM Neurologic: Positive: Focal Abnormalities Physical Exam Narrative GENERAL: Thin, alert female. Appears uncomfortable, no acute distress. SKIN: Warm and dry. HEAD: Atraumatic. Normocephalic. EYES: Pupils equal and round. No scleral icterus. No injection or drainage. ENT: No nasal bleeding or discharge. Mucous membranes pink and moist. NECK: Trachea midline. No JVD. CARDIOVASCULAR: Regular rate and rhythm. RESPIRATORY: No accessory muscle use. Clear to auscultation. Breath sounds equal bilaterally. GASTROINTESTINAL: Abdomen soft, non-tender, nondistended. Hepatic and splenic margins not palpable. MUSCULOSKELETAL: Extremities without clubbing, cyanosis, or edema. No obvious deformities. NEUROLOGICAL: Awake and alert. Nonverbal. Data Data Last Documented VS Vital Signs Date Time Temp Pulse Resp B/P (MAP) Pulse Ox O2 Delivery O2 Flow Rate FiO2 01/08/18 23:00 56 22 96/54 (68) 100 Nasal Cannula 2.00 01/08/18 18:43 97.8 Orders Orders Complete Blood Count With Diff (01/08/18 18:34) Comprehensive Metabolic Panel (01/08/18 18:34) Creatine Kinase (Cpk) (01/08/18 18:34) Prothrombin Time / Inr (Pt) (01/08/18 18:34) Act Partial Throm Time (Ptt) (01/08/18 18:34) Blood Glucose (01/08/18 18:34) Ecg Monitoring (01/08/18 18:34) Iv Access Insert/Monitor (01/08/18 18:34) Oximetry (01/08/18 18:34) Sodium Chloride 0.9% Flush (Ns Flush) (01/08/18 18:45) Ondansetron Inj (Zofran Inj) (01/08/18 18:44) Sodium Chlorid 0.9% 500 Ml Inj (Ns 500 M (01/08/18 19:15) Immune Globulin Inj (Privigen Inj) (01/08/18 21:00) Acetaminophen (Tylenol) (01/08/18 19:15) Diphenhydramine (Benadryl) (01/08/18 19:15) Dextrose 5% In [place] 500 Ml Inj (D5w 500 (01/08/18 19:15) Diphenhydramine Inj (Benadryl Inj) (01/08/18 19:15) Epinephrine (1:1000) Inj (Adrenalin (1:1 (01/08/18 19:15) Lorazepam Inj (Ativan Inj) (01/08/18 19:30) Psych Screen (01/08/18 19:42) Salicylates (Aspirin) (01/08/18 19:42) Call Poison Control (01/08/18 19:42) Electrocardiogram (01/08/18 ) Tylenol (Acetaminophen) (01/08/18 18:34) Magnesium (Mg) (01/08/18 22:12) Urinalysis - C+S If Indicated (01/08/18 22:12) Chest, Single Ap (01/08/18 ) Cath For Specimen (01/08/18 22:12) Potassium Chloride (Kcl) (01/08/18 22:30) Magnesium Sulfate 1 Gm Premix (Magnesium (01/08/18 22:45) Urine Culture (01/08/18 22:25) Potassium Chloride Inj (Kcl Inj) (01/08/18 23:00) Admit Order (Ed Use Only) (01/08/18 23:04) Labs Laboratory Tests Test 01/08/18 21:00 01/08/18 22:25 White Blood Count 23.5 TH/MM3 Red Blood Count 4.87 MIL/MM3 Hemoglobin 12.1 GM/DL Hematocrit 39.7 % Mean Corpuscular Volume 81.5 FL Mean Corpuscular Hemoglobin 25.0 PG Mean Corpuscular Hemoglobin Concent 30.6 % Red Cell Distribution Width 27.2 % Platelet Count 834 TH/MM3 Mean Platelet Volume 8.7 FL CBC Comment AUTO DIFF Differential Total Cells Counted 100 Neutrophils % (Manual) 94 % Band Neutrophils % 1 % Lymphocytes % 2 % Monocytes % 3 % Neutrophils # (Manual) 22.3 TH/MM3 Differential Comment FINAL DIFF MANUAL Platelet Estimate HIGH Platelet Morphology Comment ENLARGED Prothrombin Time 11.7 SEC Prothromb Time International Ratio 1.2 RATIO Activated Partial Thromboplast Time 29.4 SEC Blood Urea Nitrogen 18 MG/DL Creatinine 1.85 MG/DL Random Glucose 200 MG/DL Total Protein 8.4 GM/DL Albumin 3.8 GM/DL Calcium Level 8.4 MG/DL Alkaline Phosphatase 58 U/L Aspartate Amino Transf (AST/SGOT) 15 U/L Alanine Aminotransferase (ALT/SGPT) 15 U/L Total Bilirubin 0.3 MG/DL Sodium Level 143 MEQ/L Potassium Level 2.9 MEQ/L Chloride Level 115 MEQ/L Carbon Dioxide Level 23.1 MEQ/L Anion Gap 5 MEQ/L Estimat Glomerular Filtration Rate 30 ML/MIN Phosphorus Level 4.4 MG/DL Magnesium Level 1.4 MG/DL Total Creatine Kinase 28 U/L Salicylates Level LESS THAN 1.7 MG/DL Acetaminophen Level LESS THAN 2.0 MCG/ML Urine Color YELLOW Urine Turbidity CLOUDY Urine pH 6.0 Urine Specific [place] 1.027 Urine Protein 100 mg/dL Urine Glucose (UA) TRACE mg/dL Urine Ketones NEG mg/dL Urine Occult Blood SMALL Urine Nitrite NEG Urine Bilirubin NEG Urine Urobilinogen 2.0 MG/DL Urine Leukocyte Esterase NEG Urine RBC 9 /hpf Urine WBC 17 /hpf Urine Amorphous Sediment RARE Urine Bacteria FEW /hpf Urine Hyaline Casts 66 /lpf Urine Mucus MANY /lpf Microscopic Urinalysis Comment CATH-CULTURE IND Urine Opiates Screen NEG Urine Barbiturates Screen POS Urine Amphetamines Screen POS Urine Benzodiazepines Screen NEG Urine Cocaine Screen POS Urine Cannabinoids Screen NEG MDM Medical Decision Making Medical Screen Exam Complete: Yes Emergency Medical Condition: Yes Medical Record Reviewed: Yes Interpretation(s) Laboratory Tests Test 01/08/18 21:00 01/08/18 22:25 White Blood Count 23.5 TH/MM3 Red Blood Count 4.87 MIL/MM3 Hemoglobin 12.1 GM/DL Hematocrit 39.7 % Mean Corpuscular Volume 81.5 FL Mean Corpuscular Hemoglobin 25.0 PG Mean Corpuscular Hemoglobin Concent 30.6 % Red Cell Distribution Width 27.2 % Platelet Count 834 TH/MM3 Mean Platelet Volume 8.7 FL CBC Comment AUTO DIFF Differential Total Cells Counted 100 Neutrophils % (Manual) 94 % Band Neutrophils % 1 % Lymphocytes % 2 % Monocytes % 3 % Neutrophils # (Manual) 22.3 TH/MM3 Differential Comment FINAL DIFF MANUAL Platelet Estimate HIGH Platelet Morphology Comment ENLARGED Prothrombin Time 11.7 SEC Prothromb Time International Ratio 1.2 RATIO Activated Partial Thromboplast Time 29.4 SEC Blood Urea Nitrogen 18 MG/DL Creatinine 1.85 MG/DL Random Glucose 200 MG/DL Total Protein 8.4 GM/DL Albumin 3.8 GM/DL Calcium Level 8.4 MG/DL Alkaline Phosphatase 58 U/L Aspartate Amino Transf (AST/SGOT) 15 U/L Alanine Aminotransferase (ALT/SGPT) 15 U/L Total Bilirubin 0.3 MG/DL Sodium Level 143 MEQ/L Potassium Level 2.9 MEQ/L Chloride Level 115 MEQ/L Carbon Dioxide Level 23.1 MEQ/L Anion Gap 5 MEQ/L Estimat Glomerular Filtration Rate 30 ML/MIN Magnesium Level 1.4 MG/DL Total Creatine Kinase 28 U/L Salicylates Level LESS THAN 1.7 MG/DL Acetaminophen Level LESS THAN 2.0 MCG/ML Urine Color YELLOW Urine Turbidity CLOUDY Urine pH 6.0 Urine Specific [place] 1.027 Urine Protein 100 mg/dL Urine Glucose (UA) TRACE mg/dL Urine Ketones NEG mg/dL Urine Occult Blood SMALL Urine Nitrite NEG Urine Bilirubin NEG Urine Urobilinogen 2.0 MG/DL Urine Leukocyte Esterase NEG Urine RBC 9 /hpf Urine WBC 17 /hpf Urine Amorphous Sediment RARE Urine Bacteria FEW /hpf Urine Hyaline Casts 66 /lpf Urine Mucus MANY /lpf Microscopic Urinalysis Comment CATH-CULTURE IND Vital Signs Date Time Temp Pulse Resp B/P (MAP) Pulse Ox O2 Delivery O2 Flow Rate FiO2 01/08/18 18:47 45 18 155/66 (95) 100 Nasal Cannula 2.00 01/08/18 18:47 98 Room Air 01/08/18 18:43 97.8 54 18 155/66 (56) 05 Differential Diagnosis Myasthenia gravis exacerbation versus metabolic abnormality versus other Narrative Course Patient is a 42-year-old female that presented to the emergency department via EMS for evaluation of altered mental status. Initially ems thought to be an overdose, patient has a history of myasthenia gravis and her symptoms are consistent with her previous presentation. Labs ordered and pending. Discussed with Dr. De La Fuente, on-call neurologist. Recommended IVIG 400 mg/kg over 8 hours daily for 5 days. Patient's mother and brother who presented at the bedside, patient verbalized to them that she felt worthless that she was no good to anyone, she was not a good mother and reported that she took the whole bottle of Midodrine. Patient reported that her ex- is taking these things to her. She reports that yesterday when she felt the exacerbation coming on made her feel more depressed because she is sick all the time. She has no previous history of suicide attempt. Mental health screening discussed with the patient. Psychiatric screen ordered. At this time the [place] act will be initiated. Poison control was notified, they recommended assessing acetaminophen, salicylate, alcohol level, serial EKGs. These were ordered and pending. Initial EKG shows sinus bradycardia with a rate of 46. Chest x-ray shows no acute disease CBC with a white count of 23.5 Chemistry with potassium 2.9, magnesium 1.4. IV replacement ordered. Creatinine 1.85 Urinalysis consistent with UTI, reflex culture pending. Salicylate and acetaminophen levels are unremarkable. Consult the case management made, patient's mother stated that ex- no longer wants her in the home. She will likely need placement. Discussed case with aircraft shipping checker, Dr. Grady. Admit accepted. Patient is resting comfortably. Diagnosis Primary Impression: Myasthenia gravis with exacerbation Additional Impressions: Intentional overdose of drug in tablet form Suicidal ideations Hypokalemia Hypomagnesemia Bradycardia Admitting Information Admitting Physician Requests: Admit Condition: Stable Rosa Osuna Jan 08, 2018 19:22
[2018-01-08] MEDS ORDERED: LORazepam 2 MG/ML VIAL IV PUSH ONE (19:30)
[2018-01-08 21:15] VITALS: BP 131/71; PULSE 47; RESP 24; O2SAT 100
[2018-01-08 21:19] LABS: HEMATOCRIT 39.7 % (35.0-46.0); HEMOGLOBIN 12.1 GM/DL (11.6-15.3); MEAN CELL VOLUME 81.5 FL (80.0-100.0); MEAN CORPUSCULAR HGB CONC 30.6 % (32.0-36.0); MEAN PLATELET VOLUME 8.7 FL (7.0-11.0); PLATELET COUNT 834 TH/MM3 (150-450); RED BLOOD COUNT 4.87 MIL/MM3 (4.00-5.30); RED CELL DISTRIBUTION WIDTH 27.2 % (11.6-17.2); WHITE BLOOD COUNT 23.5 TH/MM3 (4.0-11.0)
[2018-01-08 21:36] LABS: INTERNATIONAL NORMALIZED RATIO 1.2 RATIO; PROTHROMBIN TIME - PATIENT 11.7 SEC (9.8-11.6)
[2018-01-08 22:00] LABS: ACETAMINOPHEN LESS THAN 2.0 MCG/ML (10.0-30.0); ALBUMIN 3.8 GM/DL (3.4-5.0); ALKALINE PHOSPHATASE 58 U/L (45-117); ALT (GPT) 15 U/L (10-53); AST (GOT) 15 U/L (15-37); BICARBONATE 23.1 MEQ/L (21.0-32.0); BLOOD UREA NITROGEN 18 MG/DL (7-18); CALCIUM 8.4 MG/DL (8.5-10.1); CHLORIDE 115 MEQ/L (98-107); CREATININE 1.85 MG/DL (0.50-1.00); GLOMERULAR FILTRATION RATE 30 ML/MIN (>89); GLUCOSE,RANDOM 200 MG/DL (74-106); SODIUM (NA) 143 MEQ/L (136-145); TOTAL BILIRUBIN ADULT 0.3 MG/DL (0.2-1.0); TOTAL PROTEIN 8.4 GM/DL (6.4-8.2)
[2018-01-08 22:18] LABS: BANDS 1 % (0-6); LYMPHOCYTES 2 % (9-44); MONOCYTES 3 % (0-8); NEUTROPHIL # MANUAL DIFF 22.3 TH/MM3 (1.8-7.7); POLYS (SEG NEUTROPHILS) 94 % (16-70)
[2018-01-08] MEDS ORDERED: POTASSIUM CHLORIDE 10 MEQ CONTROLLED RELEASE TAB PO ONE (22:30)
[2018-01-08] MEDS ORDERED: MAGNESIUM SULFATE 1 GM PREMIX 100 ML IV ONE (22:45)
[2018-01-08 22:47] LABS: AMORPHOUS SEDIMENT, URINE RARE; BACTERIA, URINE FEW /hpf; BILIRUBIN, URINE NEG (NEG); BLOOD, URINE SMALL (NEG); GLUCOSE,URINE TRACE mg/dL (NEG); HYALINE CAST, URINE 66 /lpf (RARE); KETONE, URINE NEG (NEG); MUCUS URINE MANY /lpf (OCC); NITRITE,URINE NEG (NEG); URINE COLOR YELLOW (YELLW/STRAW); URINE LEUKOCYTE ESTERASE NEG (NEG)
--- NOTE | 2018-01-08 22:50 | RADRPT ---
EXAM DATE/TIME: 01/08/2018 22:21 [place] COMPARISON: No previous studies available for comparison. INDICATIONS : Possible overdose. MEDICAL HISTORY : myasthenia gravis, migraines, anemia, depression, C-diff SURGICAL HISTORY : thymus removed, infusport ENCOUNTER: Initial ACUITY: 1 day PAIN SCORE: Non-responsive. LOCATION: Bilateral chest FINDINGS: A left-sided portacatheter is noted and the distal tip overlies the expected location of the SVC. The lungs are clear. Cardiomegaly is noted. Osseous structures are intact. CONCLUSION: No acute disease. Volodymyr Quinn MD on January 08, 2018 at 22:47 Board Certified Radiologist. This report was verified electronically.
[2018-01-08 23:00] VITALS: BP 96/54; PULSE 56; RESP 22; O2SAT 100
--- NOTE | 2018-01-08 23:14 | HHI.HP ---
HPI Service Critical Care Medicine Primary Care Physician Non-Staff Admission Diagnosis Myasthenia gravis exacerbation, intentional overdose, bradycardia Diagnosis: Travel History International Travel<30 Days: No Contact w/Intl Traveler <30 Da: No Traveled to Known Affected Are: No History of Present Illness 42-year-old unfortunate female presenting to the emergency department for evaluation of altered mental status. This is her seventh admission within the last 5 months for the similar symptoms. Per EMS patient's ex- found her in bed yesterday, apparently at that time she was still verbal. When he returned home this afternoon she was not responding, stiff and moaning. H&P is limited due to patient's clinical condition. Her last admission was 2 weeks ago with a diagnosis of myasthenia gravis exacerbation. Per ED documentation report she has been sick with flulike symptoms all week including nausea and vomiting and diarrhea. She has been unable to keep down any of her medications. Every time she eats she has a bowel movement. Per ED reports she also intentionally overdosed with Midodrin. Review of Systems ROS Unable to obtain patient is nonverbal Past Family Social History Allergies: Coded Allergies: penicillin G (Unverified Allergy, Severe, Anaphylaxis, 01/08/18) promethazine (Unverified Adverse Reaction, Severe, NAUSEOUS, 01/08/18) Past Medical History Myasthenia gravis. Avascular necrosis of the right hip. Depression. Hypotension. Past Surgical History Thymus removed Bilateral tubal ligation Left chest port placement Tonsillectomy Reported Medications Reported Meds & Active Scripts Active Neurontin (Gabapentin) 300 Mg Cap 600 Mg PO Q8H Xanax (Alprazolam) 1 Mg Tab 1 Mg PO Q6HR PRN Ferosul (Ferrous Sulfate) 325 Mg (65 Mg Iron) Tablet 325 Mg PO BID@12,17 30 Days Neurontin (Gabapentin) 300 Mg Cap 300 Mg PO Q8H [[id number] 325-50-40 Mg] 1 TAB Tab 1 Tab PO Q6H PRN Mestinon (Pyridostigmine [place]) 60 Mg Tab 120 Mg PO TIDAC Cellcept (Mycophenolate Mofetil) 500 Mg Tab 500 Mg PO BID Prednisone 5 Mg Tab 5 Mg PO DAILY Citalopram (Citalopram Hydrobromide) 40 Mg Tab 40 Mg PO DAILY Lactinex (Lactobacillus Acidophilus) 1 Chew 1 Tab CHEW DAILY Imitrex (Sumatriptan Succinate) 50 Mg Tab 50 Mg PO NEEDED PRN If a satisfactory response has not been obtained at 2 hours, a second dose may be administered Reported Aspirin 81 Mg Chew 81 Mg CHEW DAILY Midodrine 5 Mg Tab 5 Mg PO BID Percocet (Oxycodone-Acetaminophen) 10-325 mg Tab 1 Tab PO Q6H PRN Xanax (Alprazolam) 1 Mg Tab 1 Mg PO Q8H PRN Active Ordered Medications Current Medications Medications (Trade) Dose Ordered Sig/Gómez Route PRN Reason Start Time Stop Time Status Last Admin Dose Admin Immune Globulin 20 gm/Syringe / Bag 200 ml @ 25 mls/hr Q24H IV 01/08/18 21:00 01/13/18 04:59 Dextrose 500 ml @ 30 mls/hr Q24H IV 01/08/18 19:15 01/09/18 11:54 01/08/18 20:10 Diphenhydramine HCl (Benadryl Inj) 50 mg UNSCH PRN IV PUSH ALLERGIC REACTION 01/08/18 19:15 01/09/18 19:14 Epinephrine HCl (Adrenalin (1:1000) Inj) 0.3 mg Q10M PRN OTHER ANAPHYLACTIC REACTION 01/08/18 19:15 01/09/18 19:14 Potassium Chloride 30 meq/ Sodium Chloride 115 ml @ 38.333 mls/ hr Q3H IV-CENTRAL 01/08/18 23:00 01/09/18 04:59 Aspirin (Aspirin Chew) 81 mg DAILY CHEW 01/09/18 09:00 Citalopram Hydrobromide (CeleXA) 40 mg DAILY PO 01/09/18 09:00 Ferrous Sulfate (Ferrous Sulfate) 325 mg BID@12,17 PO 01/09/18 12:00 Gabapentin (Neurontin) 300 mg Q8H PO 01/08/18 23:15 Mycophenolate Mofetil (Cellcept) 500 mg BID PO 01/09/18 09:00 Prednisone (Deltasone) 5 mg DAILY PO 01/09/18 09:00 Pyridostigmine [place] (Mestinon) 120 mg TIDAC PO 01/09/18 08:00 Lactobacillus Acidophilus (Lactinex) 1 tab DAILY PO 01/09/18 09:00 Acetaminophen/ Butalbital/ Caffeine (Fioricet 325-50-40) 1 tab Q6H PRN PO HEADACHE 01/08/18 23:15 Sodium Chloride 1,000 ml @ 84 mls/hr [id number] IV 01/08/18 23:20 Sodium Chloride (NS Flush) 2 ml UNSCH PRN IV FLUSH FLUSH AFTER USING IV ACCESS 01/08/18 23:30 Sodium Chloride (NS Flush) 2 ml BID IV FLUSH 01/09/18 09:00 Acetaminophen (Tylenol) 650 mg Q6H PRN PO PAIN 1-10 AND/OR FEVER >101F 01/08/18 23:30 Famotidine (Pepcid) 20 mg DAILY PO 01/09/18 09:00 Ondansetron HCl (Zofran Inj) 4 mg Q6H PRN IV PUSH NAUSEA OR VOMITING 01/08/18 23:30 Albuterol/ Ipratropium (Duoneb Neb) 1 ampule Q2HR NEB PRN INH WHEEZING 01/08/18 23:30 Enoxaparin Sodium (Lovenox Inj) 30 mg Q24H SQ 01/08/18 23:30 Miscellaneous Information 1 [id number] XX 01/08/18 23:30 Chlorhexidine Gluconate (Chlorhexidine 2% Cloth) 3 pack Taper DAILY@04 TOP 01/09/18 04:00 01/05/19 03:59 Chlorhexidine Gluconate (Chlorhexidine 2% Cloth) 3 pack UNSCH PRN TOP HYGIENIC CARE 01/08/18 23:30 Senna/Docusate Sodium ([place]-Colace) 1 tab BID PO 01/09/18 09:00 Magnesium Hydroxide (Milk Of Magnesia Liq) 30 ml Q12H PRN PO Mild constipation 01/08/18 23:30 Sennosides (Senokot) 17.2 mg Q12H PRN PO Moderate constipation 01/08/18 23:30 Bisacodyl (Dulcolax Supp) 10 mg DAILY PRN RECTAL SEVERE CONSITIPATION/ IF NPO 01/08/18 23:30 Lactulose (Lactulose Liq) 30 ml DAILY PRN PO SEVERE CONSITIPATION/ IF PO 01/08/18 23:30 Family History Father has diabetes mellitus. Social History Former smoker. Smoked half a pack per day for 20 years. Denies alcohol or illicit drug use. Physical Exam Vital Signs Vital Signs Date Time Temp Pulse Resp B/P (MAP) Pulse Ox O2 Delivery O2 Flow Rate FiO2 01/08/18 21:15 47 24 131/71 (91) 100 Nasal Cannula 2.00 01/08/18 18:47 45 18 155/66 (95) 100 Nasal Cannula 2.00 01/08/18 18:47 98 Room Air 01/08/18 18:43 97.8 54 18 155/66 (95) 99 Physical Exam GENERAL: Thin, alert female. In moderate distress. Extremely lethargic and slow SKIN: Warm and dry. HEAD: Atraumatic. Normocephalic. EYES: Pupils equal and round. No scleral icterus. No injection or drainage. ENT: No nasal bleeding or discharge. Mucous membranes pink and moist. NECK: Trachea midline. No JVD. CARDIOVASCULAR: Regular rate and rhythm. RESPIRATORY: No accessory muscle use. Clear to auscultation. Breath sounds equal bilaterally. GASTROINTESTINAL: Abdomen soft, non-tender, nondistended. Hepatic and splenic margins not palpable. MUSCULOSKELETAL: Extremities without clubbing, cyanosis, or edema. No obvious deformities. NEUROLOGICAL: Awake and alert. Extremely slow affect, slurred speech. Laboratory Laboratory Tests Test 01/08/18 21:00 01/08/18 22:25 White Blood Count 23.5 Red Blood Count 4.87 Hemoglobin 12.1 Hematocrit 39.7 Mean Corpuscular Volume 81.5 Mean Corpuscular Hemoglobin 25.0 Mean Corpuscular Hemoglobin Concent 30.6 Red Cell Distribution Width 27.2 Platelet Count 834 Mean Platelet Volume 8.7 CBC Comment AUTO DIFF Differential Total Cells Counted 100 Neutrophils % (Manual) 94 Band Neutrophils % 1 Lymphocytes % 2 Monocytes % 3 Neutrophils # (Manual) 22.3 Differential Comment FINAL DIFF MANUAL Platelet Estimate HIGH Platelet Morphology Comment ENLARGED Prothrombin Time 11.7 Prothromb Time International Ratio 1.2 Activated Partial Thromboplast Time 29.4 Blood Urea Nitrogen 18 Creatinine 1.85 Random Glucose 200 Total Protein 8.4 Albumin 3.8 Calcium Level 8.4 Alkaline Phosphatase 58 Aspartate Amino Transf (AST/SGOT) 15 Alanine Aminotransferase (ALT/SGPT) 15 Total Bilirubin 0.3 Sodium Level 143 Potassium Level 2.9 Chloride Level 115 Carbon Dioxide Level 23.1 Anion Gap 5 Estimat Glomerular Filtration Rate 30 Magnesium Level 1.4 Total Creatine Kinase 28 Salicylates Level LESS THAN 1.7 Acetaminophen Level LESS THAN 2.0 Urine Color YELLOW Urine Turbidity CLOUDY Urine pH 6.0 Urine Specific [place] 1.027 Urine Protein 100 Urine Glucose (UA) TRACE Urine Ketones NEG Urine Occult Blood SMALL Urine Nitrite NEG Urine Bilirubin NEG Urine Urobilinogen 2.0 Urine Leukocyte Esterase NEG Urine RBC 9 Urine WBC 17 Urine Amorphous Sediment RARE Urine Bacteria FEW Urine Hyaline Casts 66 Urine Mucus MANY Microscopic Urinalysis Comment CATH-CULTURE IND Date/Time Source Procedure Growth Status 01/08/18 22:25 Urine Catheterized Urine Urine Culture Pending Received Result Diagram: 01/08/18209901/08/182099 Imaging Last 24 hours Impressions Chest X-Ray 01/08/18 0000 Signed Impressions: Service Date/Time: Monday, January 08, 2018 22:21 - CONCLUSION: No acute disease. MD Mino Gant VTE Risk Assessment Mino VTE Risk Assessment: Mod/High Risk (score >= 2) Caprini Risk Assessment Model Point Value = 1 Point Value = 2 Point Value = 3 Point Value = 5 Age 41-60 Minor surgery BMI > 25 kg/m2 Swollen legs Varicose veins or History of unexplained or recurrent spontaneous Oral contraceptives or hormone replacement Sepsis (< 1 month) Serious lung disease, including pneumonia (< 1 month) Abnormal pulmonary function Acute myocardial infarction Congestive heart failure (< 1 month) History of inflammatory bowel disease Medical patient at bed rest Age 61-74 Arthroscopic surgery Major open surgery (> 45 min) Laparoscopic surgery (> 45 min) Malignancy Confined to bed (> 72 hours) Immobilizing plaster cast Central venous access Age >= 75 History of VTE Family history of VTE Factor V Leiden Prothrombin [id number] Lupus anticoagulant Anticardiolipin antibodies Elevated serum homocysteine Heparin-induced thrombocytopenia Other congenital or acquired thrombophilia Stroke (< 1 month) Elective arthroplasty Hip, pelvis, or leg fracture Acute spinal cord injury (< 1 month) Prophylaxis Regimen Total Risk Factor Score Risk Level Prophylaxis Regimen 0-1 Low Early ambulation 2 Moderate Order ONE of the following: *Sequential Compression Device (SCD) *Heparin 5000 units SQ BID 3-4 Higher Order ONE of the following medications: *Heparin 5000 units SQ TID *Enoxaparin/Lovenox 40 mg SQ daily (WT < 150 kg, CrCl > 30 mL/min) *Enoxaparin/Lovenox 30 mg SQ daily (WT < 150 kg, CrCl > 10-29 mL/min) *Enoxaparin/Lovenox 30 mg SQ BID (WT < 150 kg, CrCl > 30 mL/min) AND/OR *Sequential Compression Device (SCD) 5 or more Highest Order ONE of the following medications: *Heparin 5000 units SQ TID (Preferred with Epidurals) *Enoxaparin/Lovenox 40 mg SQ daily (WT < 150 kg, CrCl > 30 mL/min) *Enoxaparin/Lovenox 30 mg SQ daily (WT < 150 kg, CrCl > 10-29 mL/min) *Enoxaparin/Lovenox 30 mg SQ BID (WT < 150 kg, CrCl > 30 mL/min) AND *Sequential Compression Device (SCD) Assessment and Plan Assessment and Plan Altered mental status -Likely polypharmacy -History of Xanax and opioid use -Drug screen pending -IV fluid hydration -Supportive care Myasthenia gravis -IVIG per neurology recommendation -Mycophenolate Mofetil -Prednisone -Pyridostigmine [place] -Further management per neurologist Hypokalemia -Electrolytes replacement per ICU protocol Depressions -Citalopram Neuropathy -Gabapentin on hold due to lethargy Anemia -Ferrous Sulfate Headache -Sumatriptan DVT GI prophylaxis -SCDs -Lovenox -Pepcid Critical Care: The total critical care time was 35 minutes. Time to perform other separately billable procedures was not included in the critical care time. Bam Grady MD Jan 08, 2018 23:14
[2018-01-08] MEDS: GABAPENTIN 300 MG CAP PO SCH (23:15)
[2018-01-08] MEDS ORDERED: GABAPENTIN 300 MG CAP PO SCH (23:15)
[2018-01-08] MEDS ORDERED: MISCELLANEOUS NURSING INFORMATION XX SCH (23:30)
[2018-01-08] MEDS ORDERED: BISACODYL 10 MG SUPP RECTAL PRN (23:30)
[2018-01-08] MEDS ORDERED: LACTULOSE SYRUP 20 GM/30 ML CUP PO PRN (23:30)
[2018-01-08] MEDS ORDERED: MAGNESIUM HYDROXIDE SUSP 30 ML CUP PO PRN (23:30)
[2018-01-08] MEDS ORDERED: CHLORHEXIDINE GLUCONATE 2 % 1 PACK (2 CLOTHS) TOP PRN (23:30)
[2018-01-08] MEDS ORDERED: SENNOSIDES 8.6 MG TAB PO PRN (23:30)
[2018-01-09] VITALS (18 sets, daily range): BP systolic 92–176; BP diastolic 56–94; PULSE 72–150; RESP 20–42; TEMP 97.1–100; O2SAT 90–100
[2018-01-09] MEDS ORDERED: POTASSIUM CHLORIDE 25 MEQ EFFERVESCENT TAB PO PRN
[2018-01-09] MEDS ORDERED: POTASSIUM PHOSPHATE MONOBASIC 500 MG TAB PO/TUBE PRN
[2018-01-09] MEDS ORDERED: POTASSIUM CHLOR 20 MEQ PREMIX 100 ML IV PRN
[2018-01-09] MEDS ORDERED: POTASSIUM PHOSPHATE INJ 30 MMOL in SODIUM CHLOR 0.9% 250 ML INJ 250 ML IV PRN ×2
[2018-01-09] MEDS ORDERED: MAGNESIUM OXIDE 400 MG TAB PO PRN
[2018-01-09] MEDS ORDERED: SODIUM PHOSPHATE INJ 30 MMOL in SODIUM CHLOR 0.9% 250 ML INJ 240 ML IV PRN ×2
[2018-01-09] MEDS ORDERED: POTASSIUM CHLOR 40 MEQ PREMIX 100 ML IV PRN
[2018-01-09] MEDS ORDERED: MAGNESIUM SULFATE INJ 2 GM in SODIUM CHLORIDE 0.9% INJ 96 ML IV PRN ×2
[2018-01-09] MEDS ORDERED: MAGNESIUM SULFATE INJ 4 GM in SODIUM CHLORIDE 0.9% INJ 92 ML IV PRN ×2
[2018-01-09] MEDS: ENOXAPARIN SODIUM 30 MG/0.3 ML SYRINGE SQ SCH ×2 (01:08→22:01)
[2018-01-09] MEDS: SODIUM CHLOR 0.9% 1000 ML INJ 1,000 ML IV SCH ×3 (01:10→21:44)
[2018-01-09] MEDS: POTASSIUM CHLORIDE INJ 30 MEQ in SODIUM CHLORIDE 0.9% INJ 100 ML IV-CENTRAL SCH ×2 (01:16→03:49)
[2018-01-09] MEDS: RESP: ALBUTEROL 2.5 MG/IPRATROPIUM 0.5 MG NEB (PRN) INH ×2 (01:47→06:48)
[2018-01-09] MEDS: ACETAMIN 325 MG/BUTALBITAL 50 MG/CAFFEINE 40 MG TAB PO PRN (01:55)
[2018-01-09] MEDS: CHLORHEXIDINE GLUCONATE 2 % 1 PACK (2 CLOTHS) TOP SCH (04:00)
[2018-01-09] MEDS: SUMAtriptan INJ 6 MG/0.5 ML VIAL SQ PRN (04:00)
[2018-01-09] MEDS: GABAPENTIN 300 MG CAP PO SCH (05:48)
[2018-01-09 06:41] LABS: AUTOMATED NEUTROPHIL # 14.3 TH/MM3 (1.8-7.7); BASOPHIL # 0.1 TH/MM3 (0-0.2); BASOPHIL % 0.4 % (0.0-2.0); EOSINOPHIL % 0.1 % (0.0-4.0); HEMATOCRIT 37.1 % (35.0-46.0); HEMOGLOBIN 11.6 GM/DL (11.6-15.3); LYMPH % 6.2 % (9.0-44.0); MEAN CELL VOLUME 83.2 FL (80.0-100.0); MEAN CORPUSCULAR HGB CONC 31.3 % (32.0-36.0); MEAN PLATELET VOLUME 8.3 FL (7.0-11.0); MONO % 5.9 % (0.0-8.0); NEUT % 87.4 % (16.0-70.0); PLATELET COUNT 606 TH/MM3 (150-450); RED BLOOD COUNT 4.46 MIL/MM3 (4.00-5.30); RED CELL DISTRIBUTION WIDTH 26.7 % (11.6-17.2); WHITE BLOOD COUNT 16.4 TH/MM3 (4.0-11.0)
[2018-01-09 07:14] LABS: ALBUMIN 3.5 GM/DL (3.4-5.0); ALKALINE PHOSPHATASE 53 U/L (45-117); ALT (GPT) 14 U/L (10-53); AST (GOT) 15 U/L (15-37); BLOOD UREA NITROGEN 12 MG/DL (7-18); CALCIUM 8.3 MG/DL (8.5-10.1); CHLORIDE 115 MEQ/L (98-107); CREATININE 0.82 MG/DL (0.50-1.00); GLOMERULAR FILTRATION RATE 77 ML/MIN (>89); GLUCOSE,RANDOM 89 MG/DL (74-106); MAGNESIUM 2.3 MG/DL (1.5-2.5); PHOSPHORUS 3.1 MG/DL (2.5-4.9); SODIUM (NA) 140 MEQ/L (136-145); TOTAL BILIRUBIN ADULT 0.3 MG/DL (0.2-1.0); TOTAL PROTEIN 8.5 GM/DL (6.4-8.2)
[2018-01-09] MEDS ORDERED: LORazepam 2 MG/ML VIAL ONE (07:16)
[2018-01-09] MEDS ORDERED: LORazepam 2 MG/ML VIAL IV PUSH ONE (07:30)
[2018-01-09 07:38] LABS: TEARDROP RBCS 1+ (NORMAL)
[2018-01-09] MEDS ORDERED: ETOMIDATE 20 MG/10 ML VIAL IVP ONE (08:00)
[2018-01-09] MEDS ORDERED: LABETALOL HCL 100 MG/20 ML VIAL IV PUSH PRN (08:00)
[2018-01-09] MEDS: CHLORHEXIDINE 0.12% (ORAL KIT) 15 ML CUP MT SCH ×2 (08:00→20:00)
[2018-01-09] MEDS ORDERED: POTASSIUM CHLORIDE 25 MEQ EFFERVESCENT TAB OG-TUBE ONE (08:30)
[2018-01-09] MEDS: LORazepam 2 MG/ML VIAL IV PUSH PRN ×3 (08:37→18:05)
[2018-01-09] MEDS: PROPOFOL 1000 MG/100 ML INJ 100 ML IV PRN ×3 (08:37→23:52)
[2018-01-09] MEDS ORDERED: SODIUM CHLOR 0.9% 1000 ML INJ 1,000 ML IV ONE (08:45)
[2018-01-09] MEDS: MYCOPHENOLATE MOFETIL 500 MG TAB PO SCH ×2 (09:00→20:21)
[2018-01-09] MEDS ORDERED: CITALOPRAM HYDROBROMIDE 40 MG TAB PO SCH (09:00)
--- NOTE | 2018-01-09 09:06 | RADRPT ---
EXAM DATE/TIME: 01/09/2018 08:23 [place] COMPARISON: CHEST SINGLE AP, January 08, 2018, 22:21. INDICATIONS : Respiratory failure. Patient is status post intubation and placement of nasogastric tube.. MEDICAL HISTORY : Myasthenia gravis. Migraines. Anemia. Depression. C-diff. SURGICAL HISTORY : Thymectomy. Infusaport. ENCOUNTER: Initial ACUITY: 3 days PAIN SCORE: Non-responsive. LOCATION: Bilateral chest FINDINGS: A single AP portable supine view of the chest was obtained and demonstrates interval placement of end otracheal tube with the tip approximately 5 cm above the brenton. A nasogastric tube is been placed an d is seen coursing through the esophagus and into the stomach. The left subclavian implantable port c atheter remains in place. There is streaky opacity now noted in the left lung base. The right lung re griffin clear. There is no perihilar edema. The bony thorax is intact with overlying artifact from elec trocardiogram leads and oxygen tubing. CONCLUSION: 1. Interval intubation and placement of nasogastric tube. 2. New streaky opacity at the left lung base most characteristic of atelectasis. Ez Bonds MD on January 09, 2018 at 9:02 Board Certified Radiologist. This report was verified electronically.
--- NOTE | 2018-01-09 09:11 | HHI.CCPN ---
Subjective Remarks/Hospital Course 01/08: 42-year-old unfortunate female presenting to the emergency department for evaluation of altered mental status. This is her seventh admission within the last 5 months for the similar symptoms. Per EMS patient's ex- found her in bed yesterday, apparently at that time she was still verbal. When he returned home this afternoon she was not responding, stiff and moaning. H&P is limited due to patient's clinical condition. Her last admission was 2 weeks ago with a diagnosis of myasthenia gravis exacerbation. Per ED documentation report she has been sick with flulike symptoms all week including nausea and vomiting and diarrhea. She has been unable to keep down any of her medications. Every time she eats she has a bowel movement. Per ED reports she also intentionally overdosed with Midodrin. 01/09: Patient agitated and anxious this morning not verbalizing. Appeared to have some tachypnea and dyspnea. Patient became extremely anxious and agitated with heart rate going up to the 160s and blood pressure 170s systolic. She had dilated pupils bilaterally despite Ativan 2 mg IV given earlier to control anxiety, probably secondary to cocaine and amphetamines in her system as her tox screen came back positive for cocaine, amphetamines, barbiturates. Patient was emergently intubated using etomidate for sedation and placed on mechanical ventilation. No neuromuscular blockade was used during intubation in view of myasthenia gravis. Her heart rate came down to 150s following intubation. 1 L normal saline fluid bolus was ordered following which heart rate came down to 120s. Objective Vital Signs Date Time Temp Pulse Resp B/P (MAP) Pulse Ox O2 Delivery O2 Flow Rate FiO2 01/09/18 06:00 95 01/09/18 05:00 23 01/09/18 04:00 97.1 164/94 (117) 100 01/09/18 01:48 Nasal Cannula 6.00 Intake and Output 01/09/18 01/09/18 01/10/18 08:00 16:00 00:00 Intake Total 100 ml Balance 100 ml Result Diagram: 01/09/18 0620 01/09/18 06 Other Results Laboratory Tests Test 01/09/18 08:45 Blood Gas Puncture Site LT RADIAL Blood Gas Patient Temperature 98.6 Blood Gas HCO3 22 mmol/L (22-26) Blood Gas Base Excess -3.7 mmol/L (-2-2) Blood Gas Oxygen Saturation 95 % (90-100) Arterial Blood pH 7.32 (7.380-7.420) Arterial Blood Partial Pressure CO2 43 mmHg (38-42) Arterial Blood Partial Pressure O2 104 mmHg (61-120) Arterial Blood Oxygen Content 14.6 Vol % (12.0-20.0) Arterial Blood Carboxyhemoglobin 1.5 % (0-4) Arterial Blood Methemoglobin 1.2 % (0-2) Blood Gas Hemoglobin 10.8 G/DL (12.0-16.0) Oxygen Delivery Device VENTILATOR Blood Gas Ventilator Setting [id number]/+5PEEP Blood Gas Inspired Oxygen 45 % Imaging Last 24 hours Impressions Chest X-Ray 01/08/18 0000 Signed Impressions: Service Date/Time: Wednesday, January 08, 2018 22:21 - CONCLUSION: No acute disease. Volodymyr Quinn MD Objective Remarks HEENT/ Neuro: Sedated, orally intubated, Pallor present, no icterus, pupils 4 mm bilaterally dilated, reacting sluggishly to light. Tongue/ mucosa dry Neck: No JVD Chest/Pulm: on mech vent, good air entry bilaterally, no wheezing or crackles CVS: S1-S2 regular, no murmur GI/abdomen: soft, nontender, bowel sounds sluggish Extremities: warm bilaterally, no edema A/P Assessment and Plan Encephalopathy -Likely polypharmacy -History of Xanax and opioid use -Drug screen positive for cocaine, barbiturates, amphetamines -IV fluid hydration -Supportive care Myasthenia gravis -IVIG per neurology recommendation -Mycophenolate Mofetil -Prednisone -Pyridostigmine [place] -Further management per neurologist Hypokalemia -Electrolytes replacement per ICU protocol Depression -Citalopram held in view of concern regarding overdose. - Psych consult requested Neuropathy -Gabapentin on hold due to lethargy Anemia -Ferrous Sulfate Headache/ history of migraines -Sumatriptan when necessary Cardiovascular: IV hydration, labetalol when necessary for hypertension. Tachycardia probably related to cocaine/amphetamines/ dehydration. Resp: Continue mechanical ventilation until improvement of neurologic status. Vent bundle, bronchodilators as needed. ID: Aleman cultures ordered. Check nasal aspirate for influenza A and B. Check urine for strep pneumo and Legionella antigen. Patient has a leukocytosis and has had been having flulike symptoms at home for a week and is on immunosuppression. In view of history of C. difficile and recent diarrhea, will check stool for C. difficile though per nursing she has not had diarrhea since arrival to ICU. Vancomycin IV 1 dose, Levaquin 500 milligrams IV daily ordered for empiric antibiotic coverage. Check pro calcitonin. GI: OG tube placed, start tube feeds with Glucerna and advanced to goal as tolerated. Renal/: Strict intake output, monitor and replete electro lites, follow BUN creatinine. Ledezma catheterization for accurate I's and O's. Endocrine: SSI for glycemic control as patient is on prednisone. DVT GI prophylaxis -SCDs -Lovenox -Pepcid Critical Care: The total critical care time was 35 minutes. Time to perform other separately billable procedures was not included in the critical care time. Sanchez Ge MD Jan 09, 2018 09:11
--- NOTE | 2018-01-09 09:22 | PD.PROCEDR ---
Procedure Note Procedure Procedure: Endotracheal intubation Preop diagnosis: Encephalopathy, agitation, tachypnea with suspected myasthenia gravis exacerbation Postop diagnosis: Same Sedation used: Etomidate 25 mg IV (no neuromuscular blockade given in view of history of myasthenia gravis) Procedure: Patient was preoxygenated with 100% oxygen via Ambu bag with bag mask ventilation, following induction of sedation and neuromuscular blockade, direct laryngoscopy was performed using a Mac 4 blade with good visualization of vocal cords. An 8 Citizen Of [place] ET tube was passed through the vocal cords under direct visualization up to the 22 centimeter alena and after inflating cuff of ET tube, correct placement was confirmed using bagging with good color change on CO2 detector, 5 point auscultation and chest rise with ventilation. Patient was connected to mechanical ventilation. Patient tolerated the procedure well with no immediate complications noted. Postprocedure chest x-ray was ordered and reviewed with good placement of ET tube above brenton. Sanchez Ge MD Jan 09, 2018 09:22
[2018-01-09] MEDS: FAMOTIDINE 20 MG TAB PO SCH (09:58)
[2018-01-09] MEDS: ASPIRIN 81 MG CHEW TAB CHEW SCH (09:58)
[2018-01-09] MEDS: LACTOBACILLUS ACIDOPHILUS TAB PO SCH (09:58)
[2018-01-09] MEDS: predniSONE 5 MG TAB PO SCH (09:58)
[2018-01-09] MEDS: DOCUSATE SODIUM 50 MG/SENNA 8.6 MG TAB PO SCH ×2 (09:58→20:21)
[2018-01-09] MEDS: SODIUM CHLORIDE 0.9% FLUSH 10 ML FLUSH IV FLUSH SCH ×2 (09:59→20:21)
[2018-01-09] MEDS: LEVOFLOXACIN 500 MG PREMIX INJ 100 ML IV SCH (09:59)
[2018-01-09] MEDS ORDERED: VANCOMYCIN INJ 800 MG in SODIUM CHLOR 0.9% 250 ML INJ 250 ML IV ONE (10:00)
[2018-01-09] MEDS: PYRIDOSTIGMINE BROMIDE 60 MG TAB PO SCH ×2 (11:48→16:32)
[2018-01-09] MEDS: FERROUS SULFATE 325 MG (65 MG ELEMENTAL IRON) TAB PO SCH ×2 (11:48→16:26)
--- NOTE | 2018-01-09 12:06 | EKG ---
Date Performed: 01/08/2018 Time Performed: 20:11:34 PTAGE: 42 years EKG: SINUS BRADYCARDIA POSSIBLE RIGHT ATRIAL ENLARGEMENT POSSIBLE LEFT ATRIAL ENLARGEMENT BORDER LINE RIGHT AXIS DEVIATION BORDERLINE ECG PREVIOUS TRACING : 12/15/2017 14.22 Since the previous tracing, no significant change noted DOCTOR: Jayce Pablo Interpretating Date/Time 01/09/2018 12:04:47
[2018-01-09] MEDS: ACETAMINOPHEN 325 MG TAB PO PRN (14:58)
--- NOTE | 2018-01-09 15:26 | MB ---
cc: Leonardo De La Fuente MD, PhD DATE: 01/09/2018 REASON FOR CONSULTATION: Myasthenia gravis. HISTORY OF PRESENT ILLNESS: Ms. Rodríguez is a 42-year-old female well known to me who has documented myasthenia gravis, treated with IVIG in the past. Patient's found her in her bed yesterday. Initially, she was verbal, but when he returned home, she was not responsive. She had vomiting and diarrhea, unable to keep down her medications. According to the ER note, intentionally overdosed with midodrine. The patient is now intubated. NEUROLOGIC EXAMINATION: GENERAL: She is alert. CRANIAL NERVES: Bilateral ptosis, otherwise intact. MOTOR: Generalized weakness, roughly 4/5 both upper and lower extremities. DIAGNOSTIC DATA: Chest x-ray shows intubation and atelectasis. LABORATORY DATA: White count 16,400, hemoglobin 11.6, hematocrit 37%, platelet count 606,000. Sodium is 140, potassium 3.9, chloride 115, CO2 of 24, BUN is 12, creatinine 0.82, GFR 77, glucose 89, calcium 8.3, AST 15, ALT 14. PT 11.7, INR 1.28, PTT 29.4. Tox screen positive for barbiturates, amphetamines, cocaine. UA: A pH of 6, 1.027, protein is 100, 17 wbc's. IMPRESSION: Mental status change, possibly related to overdose. She has had weakness as well, which I suspect is probably a myasthenia exacerbation. Tox screen is positive as well for cocaine and amphetamine, which may be contributory. RECOMMENDATION: Continue with IVIG. Recommend a total dose of 0.4 g/kg IV daily for 5 doses. Continue with her other medicines for myasthenia, which include CellCept 500 mg b.i.d. and Mestinon 120 mg t.i.d. Leonardo De La Fuente MD, PhD BOBBY/SB , 03:12 PM , 03:25 PM
--- NOTE | 2018-01-09 15:46 | HHI.PYPN ---
Subjective Remarks Patient discussed with nurse. Patient at the present time is intubated, am unable to do any further assessment at this time please reconsult when patient was extubated. Dr. Stokes will be available tomorrow continue this consultation that appears patient did overdose on multiple medications including cocaine and amphetamines. Along with the history of myasthenia gravis Review of Systems ROS Limitations: Clinical Condition, Altered Mental Status Results Labs Test 01/08/18 21:00 01/08/18 22:25 01/09/18 02:32 01/09/18 06:20 White Blood Count 23.5 TH/MM3 16.4 TH/MM3 Red Blood Count 4.87 MIL/MM3 4.46 MIL/MM3 Hemoglobin 12.1 GM/DL 11.6 GM/DL Hematocrit 39.7 % 37.1 % Mean Corpuscular Volume 81.5 FL 83.2 FL Mean Corpuscular Hemoglobin 25.0 PG 26.0 PG Mean Corpuscular Hemoglobin Concent 30.6 % 31.3 % Red Cell Distribution Width 27.2 % 26.7 % Platelet Count 834 TH/MM3 606 TH/MM3 Mean Platelet Volume 8.7 FL 8.3 FL CBC Comment AUTO DIFF AUTO DIFF Differential Total Cells Counted 100 Neutrophils % (Manual) 94 % Band Neutrophils % 1 % Lymphocytes % 2 % Monocytes % 3 % Neutrophils # (Manual) 22.3 TH/MM3 Differential Comment FINAL DIFF MANUAL AUTO DIFF CONFIRMED Platelet Estimate HIGH HIGH Platelet Morphology Comment ENLARGED NORMAL Prothrombin Time 11.7 SEC Prothromb Time International Ratio 1.2 RATIO Activated Partial Thromboplast Time 29.4 SEC Blood Urea Nitrogen 18 MG/DL 12 MG/DL Creatinine 1.85 MG/DL 0.82 MG/DL Random Glucose 200 MG/DL 89 MG/DL Total Protein 8.4 GM/DL 8.5 GM/DL Albumin 3.8 GM/DL 3.5 GM/DL Calcium Level 8.4 MG/DL 8.3 MG/DL Alkaline Phosphatase 58 U/L 53 U/L Aspartate Amino Transf (AST/SGOT) 15 U/L 15 U/L Alanine Aminotransferase (ALT/SGPT) 15 U/L 14 U/L Total Bilirubin 0.3 MG/DL 0.3 MG/DL Sodium Level 143 MEQ/L 140 MEQ/L Potassium Level 2.9 MEQ/L 3.9 MEQ/L Chloride Level 115 MEQ/L 115 MEQ/L Carbon Dioxide Level 23.1 MEQ/L 24.0 MEQ/L Anion Gap 5 MEQ/L 1 MEQ/L Estimat Glomerular Filtration Rate 30 ML/MIN 77 ML/MIN Phosphorus Level 4.4 MG/DL 3.1 MG/DL Magnesium Level 1.4 MG/DL 2.3 MG/DL Total Creatine Kinase 28 U/L Salicylates Level LESS THAN 1.7 MG/DL Acetaminophen Level LESS THAN 2.0 MCG/ML Urine Color YELLOW Urine Turbidity CLOUDY Urine pH 6.0 Urine Specific [place] 1.027 Urine Protein 100 mg/dL Urine Glucose (UA) TRACE mg/dL Urine Ketones NEG mg/dL Urine Occult Blood SMALL Urine Nitrite NEG Urine Bilirubin NEG Urine Urobilinogen 2.0 MG/DL Urine Leukocyte Esterase NEG Urine RBC 9 /hpf Urine WBC 17 /hpf Urine Amorphous Sediment RARE Urine Bacteria FEW /hpf Urine Hyaline Casts 66 /lpf Urine Mucus MANY /lpf Microscopic Urinalysis Comment CATH-CULTURE IND Urine Opiates Screen NEG Urine Barbiturates Screen POS Urine Amphetamines Screen POS Urine Benzodiazepines Screen NEG Urine Cocaine Screen POS Urine Cannabinoids Screen NEG Nasal Screen MRSA (PCR) MRSA DETECTED Neutrophils (%) (Auto) 87.4 % Lymphocytes (%) (Auto) 6.2 % Monocytes (%) (Auto) 5.9 % Eosinophils (%) (Auto) 0.1 % Basophils (%) (Auto) 0.4 % Neutrophils # (Auto) 14.3 TH/MM3 Lymphocytes # (Auto) 1.0 TH/MM3 Monocytes # (Auto) 1.0 TH/MM3 Eosinophils # (Auto) 0.0 TH/MM3 Basophils # (Auto) 0.1 TH/MM3 Tear Drop Cells 1+ Test 01/09/18 08:45 01/09/18 09:12 01/09/18 09:19 01/09/18 11:57 Blood Gas Puncture Site LT RADIAL Blood Gas Patient Temperature 98.6 Blood Gas HCO3 22 mmol/L Blood Gas Base Excess -3.7 mmol/L Blood Gas Oxygen Saturation 95 % Arterial Blood pH 7.32 Arterial Blood Partial Pressure CO2 43 mmHg Arterial Blood Partial Pressure O2 104 mmHg Arterial Blood Oxygen Content 14.6 Vol % Arterial Blood Carboxyhemoglobin 1.5 % Arterial Blood Methemoglobin 1.2 % Blood Gas Hemoglobin 10.8 G/DL Oxygen Delivery Device VENTILATOR Blood Gas Ventilator Setting [id number]/+5PEEP Blood Gas Inspired Oxygen 45 % Lactic Acid Level 1.6 mmol/L Potassium Level 5.0 MEQ/L Date/Time Source Procedure Growth Status 01/09/18 09:12 Blood Peripheral Aerobic Blood Culture Pending Received 01/09/18 09:12 Blood Peripheral Anaerobic Blood Culture Pending Received 01/09/18 12:01 Urine Catheterized Urine Legionella Antigen - Final PRESUMPTIVE NEGATIVE FOR LEGIONELLA P... Complete 01/09/18 12:01 Urine Catheterized Urine Streptococcus pneumoniae Antigen (M - Final PRESUMPTIVE NEGATIVE FOR STREPTOCOCCU... Complete Vitals/IOs Vital Signs Date Time Temp Pulse Resp B/P (MAP) Pulse Ox O2 Delivery O2 Flow Rate FiO2 01/09/18 12:52 100 45 01/09/18 12:00 99.0 113 20 107/57 (74) 01/09/18 01:48 Nasal Cannula 6.00 Intake and Output 01/09/18 01/09/18 01/10/18 08:00 16:00 00:00 Intake Total 100 ml 1473 ml Balance 100 ml 1473 ml Assessment & Plan Problem List: (1) Depressive disorder ICD Codes: F32.9 - Major depressive disorder, single episode, unspecified Assessment & Plan Estimated LOS: days please reconsult us from patient is extubated and returned fully assess this lady. You may Dr. Ocasio tomorrow Just[facility] To be determined Kory Gee MD Jan 09, 2018 15:46
[2018-01-09] MEDS: IMMUNE GLOBULIN INJ 20 GM in SYRINGE/BAG 1 EA IV SCH (21:00)
[2018-01-09] MEDS ORDERED: RASS Change Order XX ONE (21:30)
[2018-01-09] MEDS ORDERED: fentaNYL 2,500 MCG/NS 250 ML IV PRN (21:30)
[2018-01-09] MEDS: MIDAZOLAM 100 MG/NS 100 ML DRIP Premix IV PRN (22:01)
[2018-01-10] VITALS (20 sets, daily range): BP systolic 92–135; BP diastolic 58–75; PULSE 77–131; RESP 17–43; TEMP 97.8–99.4; O2SAT 83–100
[2018-01-10] MEDS: CHLORHEXIDINE GLUCONATE 2 % 1 PACK (2 CLOTHS) TOP SCH (03:21)
[2018-01-10 04:21] LABS: AUTOMATED NEUTROPHIL # 8.9 TH/MM3 (1.8-7.7); BASOPHIL # 0.1 TH/MM3 (0-0.2); BASOPHIL % 0.9 % (0.0-2.0); EOSINOPHIL # 0.1 TH/MM3 (0-0.4); EOSINOPHIL % 1.3 % (0.0-4.0); HEMATOCRIT 31.8 % (35.0-46.0); LYMPH % 13.5 % (9.0-44.0); LYMPHOCYTE # 1.5 TH/MM3 (1.0-4.8); MEAN CORPUSCULAR HEMOGLOBIN 25.8 PG (27.0-34.0); MEAN CORPUSCULAR HGB CONC 31.4 % (32.0-36.0); MEAN PLATELET VOLUME 8.8 FL (7.0-11.0); MONO % 6.5 % (0.0-8.0); MONOCYTE # 0.7 TH/MM3 (0-0.9); NEUT % 77.8 % (16.0-70.0); PLATELET COUNT 393 TH/MM3 (150-450); RED BLOOD COUNT 3.89 MIL/MM3 (4.00-5.30); RED CELL DISTRIBUTION WIDTH 26.1 % (11.6-17.2); WHITE BLOOD COUNT 11.4 TH/MM3 (4.0-11.0)
[2018-01-10 05:11] LABS: ALBUMIN 3.1 GM/DL (3.4-5.0); ALKALINE PHOSPHATASE 47 U/L (45-117); ALT (GPT) 17 U/L (10-53); AST (GOT) 25 U/L (15-37); BICARBONATE 23.5 MEQ/L (21.0-32.0); BLOOD UREA NITROGEN 7 MG/DL (7-18); CALCIUM 8.5 MG/DL (8.5-10.1); CHLORIDE 115 MEQ/L (98-107); CREATININE 0.59 MG/DL (0.50-1.00); GLOMERULAR FILTRATION RATE 112 ML/MIN (>89); GLUCOSE,RANDOM 71 MG/DL (74-106); SODIUM (NA) 142 MEQ/L (136-145); TOTAL BILIRUBIN ADULT 0.5 MG/DL (0.2-1.0); TOTAL PROTEIN 7.6 GM/DL (6.4-8.2)
[2018-01-10 05:22] LABS: ACANTHOCYTES OCC (NORMAL); KERATOCYTES OCC (NORMAL); OVALOCYTES 1+ (NORMAL)
[2018-01-10] MEDS: MIDAZOLAM 100 MG/NS 100 ML DRIP Premix IV PRN (05:51)
--- NOTE | 2018-01-10 08:14 | HHI.CCPN ---
Subjective Remarks/Hospital Course 01/08: 42-year-old unfortunate female presenting to the emergency department for evaluation of altered mental status. This is her seventh admission within the last 5 months for the similar symptoms. Per EMS patient's ex- found her in bed yesterday, apparently at that time she was still verbal. When he returned home this afternoon she was not responding, stiff and moaning. H&P is limited due to patient's clinical condition. Her last admission was 2 weeks ago with a diagnosis of myasthenia gravis exacerbation. Per ED documentation report she has been sick with flulike symptoms all week including nausea and vomiting and diarrhea. She has been unable to keep down any of her medications. Every time she eats she has a bowel movement. Per ED reports she also intentionally overdosed with Midodrin. 01/09: Patient agitated and anxious this morning not verbalizing. Appeared to have some tachypnea and dyspnea. Patient became extremely anxious and agitated with heart rate going up to the 160s and blood pressure 170s systolic. She had dilated pupils bilaterally despite Ativan 2 mg IV given earlier to control anxiety, probably secondary to cocaine and amphetamines in her system as her tox screen came back positive for cocaine, amphetamines, barbiturates. Patient was emergently intubated using etomidate for sedation and placed on mechanical ventilation. No neuromuscular blockade was used during intubation in view of myasthenia gravis. Her heart rate came down to 150s following intubation. 1 L normal saline fluid bolus was ordered following which heart rate came down to 120s. 01/10: Resting comfortably on sedation, awake and alert, orally intubated on mechanical ventilation. On propofol Versed and fentanyl drips. Following commands appropriately, moving all 4 extremities. Denies any shortness of breath by shaking her head. Objective Vital Signs Date Time Temp Pulse Resp B/P (MAP) Pulse Ox O2 Delivery O2 Flow Rate FiO2 01/10/18 04:10 96 45 01/10/18 04:00 98.9 82 17 92/59 (70) 01/09/18 01:48 Nasal Cannula 6.00 Intake and Output 01/10/18 01/10/18 01/11/18 08:00 16:00 00:00 Intake Total 701 ml Output Total 900 ml Balance -199 ml Result Diagram: 01/10/18 0350 01/10/18 0350 Other Results Microbiology Date/Time Source Procedure Growth Status 01/09/18 14:03 Nasal Washing Influenza Types A,B Antigen (MANUELITO) - Final NEGATIVE FOR FLU A AND B ANTIGEN.... Complete 01/09/18 12:01 Urine Catheterized Urine Legionella Antigen - Final PRESUMPTIVE NEGATIVE FOR LEGIONELLA P... Complete 01/09/18 12:01 Urine Catheterized Urine Streptococcus pneumoniae Antigen (M - Final PRESUMPTIVE NEGATIVE FOR STREPTOCOCCU... Complete Laboratory Tests Test 01/09/18 08:45 Blood Gas Puncture Site LT RADIAL Blood Gas Patient Temperature 98.6 Blood Gas HCO3 22 mmol/L (22-26) Blood Gas Base Excess -3.7 mmol/L (-2-2) Blood Gas Oxygen Saturation 95 % (90-100) Arterial Blood pH 7.32 (7.380-7.420) Arterial Blood Partial Pressure CO2 43 mmHg (38-42) Arterial Blood Partial Pressure O2 104 mmHg (61-120) Arterial Blood Oxygen Content 14.6 Vol % (12.0-20.0) Arterial Blood Carboxyhemoglobin 1.5 % (0-4) Arterial Blood Methemoglobin 1.2 % (0-2) Blood Gas Hemoglobin 10.8 G/DL (12.0-16.0) Oxygen Delivery Device VENTILATOR Blood Gas Ventilator Setting [id number]/+5PEEP Blood Gas Inspired Oxygen 45 % Imaging Last 24 hours Impressions Chest X-Ray 01/08/18 0000 Signed Impressions: Service Date/Time: Monday, January 08, 2018 22:21 - CONCLUSION: No acute disease. Volodymyr Quinn MD Objective Remarks HEENT/ Neuro: Sedated, orally intubated, Pallor present, no icterus, pupils 4 mm bilaterally dilated, reacting sluggishly to light. Tongue/ mucosa dry Neck: No JVD Chest/Pulm: on mech vent, good air entry bilaterally, no wheezing or crackles CVS: S1-S2 regular, no murmur GI/abdomen: soft, nontender, bowel sounds sluggish Extremities: warm bilaterally, no edema A/P Assessment and Plan Encephalopathy -Likely polypharmacy -History of Xanax and opioid use -Drug screen positive for cocaine, barbiturates, amphetamines -IV fluid hydration -Supportive care Myasthenia gravis -IVIG per neurology recommendation -Mycophenolate Mofetil -Prednisone -Pyridostigmine [place] -Further management per neurologist Hypokalemia -Electrolytes replacement per ICU protocol Depression -Citalopram held in view of concern regarding overdose. - Psych consult requested Neuropathy -Gabapentin on hold due to lethargy Anemia -Ferrous Sulfate Headache/ history of migraines -Sumatriptan when necessary Cardiovascular: IV hydration, labetalol when necessary for hypertension. Tachycardia probably related to cocaine/amphetamines/ dehydration. Resp: On mechanical ventilation. Vent bundle, bronchodilators as needed. -Start daily CPAP trials and if tolerated plan extubation. ID: Follow-up pancultures. Nasal aspirate negative for influenza A and B. Check urine for strep pneumo and Legionella antigen. Patient has a leukocytosis and has had been having flulike symptoms at home for a week and is on immunosuppression. In view of history of C. difficile and recent diarrhea, will check stool for C. difficile though per nursing she has not had diarrhea since arrival to ICU. Vancomycin IV 1 dose, Levaquin 500 milligrams IV daily ordered for empiric antibiotic coverage. Check pro calcitonin. GI: OG tube placed, start tube feeds with Glucerna and advanced to goal as tolerated. Renal/: Strict intake output, monitor and replete electro lites, follow BUN creatinine. Ledezma catheterization for accurate I's and O's. Endocrine: SSI for glycemic control as patient is on prednisone. DVT GI prophylaxis -SCDs -Lovenox -Pepcid Critical Care: The total critical care time was 35 minutes. Time to perform other separately billable procedures was not included in the critical care time. Sanchez Ge MD Jan 10, 2018 08:14
[2018-01-10] MEDS: MYCOPHENOLATE MOFETIL 500 MG TAB PO SCH ×2 (08:20→21:14)
[2018-01-10] MEDS: FAMOTIDINE 20 MG TAB PO SCH (08:20)
[2018-01-10] MEDS: DOCUSATE SODIUM 50 MG/SENNA 8.6 MG TAB PO SCH ×2 (08:20→21:14)
[2018-01-10] MEDS: PYRIDOSTIGMINE BROMIDE 60 MG TAB PO SCH ×3 (08:20→16:54)
[2018-01-10] MEDS: SODIUM CHLORIDE 0.9% FLUSH 10 ML FLUSH IV FLUSH SCH ×2 (08:20→21:14)
[2018-01-10] MEDS: CHLORHEXIDINE 0.12% (ORAL KIT) 15 ML CUP MT SCH ×2 (08:20→20:00)
[2018-01-10] MEDS: LACTOBACILLUS ACIDOPHILUS TAB PO SCH (08:20)
[2018-01-10] MEDS: ASPIRIN 81 MG CHEW TAB CHEW SCH (08:20)
[2018-01-10] MEDS: predniSONE 5 MG TAB PO SCH (08:20)
[2018-01-10] MEDS: LEVOFLOXACIN 500 MG PREMIX INJ 100 ML IV SCH (08:21)
[2018-01-10] MEDS ORDERED: fentaNYL DRIP 250 ML IV PRN (10:00)
[2018-01-10] MEDS: LORazepam 2 MG/ML VIAL IV PUSH PRN ×2 (11:57→21:13)
[2018-01-10] MEDS: FERROUS SULFATE 325 MG (65 MG ELEMENTAL IRON) TAB PO SCH ×2 (12:11→16:54)
[2018-01-10] MEDS ORDERED: oxyCODONE/ACETAMINOPHEN 10 MG/325 MG TAB PO STA (13:06)
[2018-01-10] MEDS: ONDANSETRON HCL 4 MG/2 ML VIAL IV PUSH PRN (13:09)
[2018-01-10] MEDS ORDERED: oxyCODONE/ACETAMINOPHEN 10 MG/325 MG TAB PO PRN (14:00)
[2018-01-10] MEDS: SODIUM CHLOR 0.9% 1000 ML INJ 1,000 ML IV SCH (16:54)
[2018-01-10] MEDS: ALPRAZolam 1 MG TAB PO PRN (17:53)
[2018-01-10] MEDS: ACETAMIN 325 MG/BUTALBITAL 50 MG/CAFFEINE 40 MG TAB PO PRN (19:01)
--- NOTE | 2018-01-10 20:58 | HHI.PR ---
Review/Management Diagnosis myasthenia gravis----Patient states has gotten first does of rituximab recently depression Plan continue ivig for 5 treatments Diagnosis/Plan: Subjective Subjective Comments No acute events reported extubated tolerating ivig Active Medications Current Medications Medications (Trade) Dose Ordered Sig/Gómez Route Start Time Stop Time Status Last Admin Immune Globulin 20 gm/Syringe / Bag 200 ml @ 14.7 mls/hr Q24H IV 01/08/18 21:00 01/13/18 10:37 01/09/18 21:00 (Aspirin Chew) 81 mg DAILY CHEW 01/09/18 09:00 01/10/18 08:20 (CeleXA) 40 mg DAILY PO 01/09/18 09:00 Future Hold (Ferrous Sulfate) 325 mg BID@12,17 PO 01/09/18 12:00 01/10/18 16:54 (Neurontin) 300 mg Q8H PO 01/08/18 23:15 Future Hold (Cellcept) 500 mg BID PO 01/09/18 09:00 01/10/18 08:20 (Deltasone) 5 mg DAILY PO 01/09/18 09:00 01/10/18 08:20 (Mestinon) 120 mg TIDAC PO 01/09/18 08:00 01/10/18 16:54 (Lactinex) 1 tab DAILY PO 01/09/18 09:00 01/10/18 08:20 (Fioricet 325-50-40) 1 tab Q6H PRN PO 01/08/18 23:15 01/10/18 19:01 Sodium Chloride 1,000 ml @ 84 mls/hr [id number] IV 01/08/18 23:20 01/10/18 16:54 (NS Flush) 2 ml UNSCH PRN IV FLUSH 01/08/18 23:30 (NS Flush) 2 ml BID IV FLUSH 01/09/18 09:00 01/10/18 08:20 (Tylenol) 650 mg Q6H PRN PO 01/08/18 23:30 01/09/18 14:58 (Pepcid) 20 mg DAILY PO 01/09/18 09:00 01/10/18 08:20 (Zofran Inj) 4 mg Q6H PRN IV PUSH 01/08/18 23:30 01/10/18 13:09 (Duoneb Neb) 1 ampule Q2HR NEB PRN INH 01/08/18 23:30 01/09/18 06:48 (Lovenox Inj) 30 mg Q24H SQ 01/08/18 23:30 01/09/18 22:01 Miscellaneous Information 1 Q361D XX 01/08/18 23:30 01/08/18 23:30 (Chlorhexidine 2% Cloth) 3 pack Taper DAILY@04 TOP 01/09/18 04:00 01/05/19 03:59 01/10/18 03:21 (Chlorhexidine 2% Cloth) 3 pack UNSCH PRN TOP 01/08/18 23:30 (Bonita-Colace) 1 tab BID PO 01/09/18 09:00 01/10/18 08:20 (Milk Of Magnesia Liq) 30 ml Q12H PRN PO 01/08/18 23:30 01/10/18 17:53 (Senokot) 17.2 mg Q12H PRN PO 01/08/18 23:30 (Dulcolax Supp) 10 mg DAILY PRN RECTAL 01/08/18 23:30 (Lactulose Liq) 30 ml DAILY PRN PO 01/08/18 23:30 Potassium Chloride 100 ml @ 50 mls/hr Q2H PRN IV 01/09/18 00:00 Potassium Chloride 100 ml @ 50 mls/hr Q2H PRN IV 01/09/18 00:00 (K-Lyte Cl Eff) 50 meq UNSCH PRN PO 01/09/18 00:00 Potassium Chloride 100 ml @ 25 mls/hr UNSCH PRN IV 01/09/18 00:00 01/10/18 08:19 Potassium Chloride 100 ml @ 50 mls/hr Q2H PRN IV 01/09/18 00:00 Magnesium Sulfate 4 gm/Sodium Chloride 100 ml @ 50 mls/hr UNSCH PRN IV 01/09/18 00:00 (Mag-Ox) 800 mg UNSCH PRN PO 01/09/18 00:00 Magnesium Sulfate 2 gm/Sodium Chloride 100 ml @ 50 mls/hr UNSCH PRN IV 01/09/18 00:00 (K-Phos) 2,000 mg Q4H PRN PO 01/09/18 00:00 Sodium Phosphate 30 mmol/Sodium Chloride 250 ml @ 42 mls/hr UNSCH PRN IV 01/09/18 00:00 (K-Phos) 2,000 mg UNSCH PRN PO/TUBE 01/09/18 00:00 Potassium Phosphate 30 mmol/ Sodium Chloride 260 ml @ 42 mls/hr UNSCH PRN IV 01/09/18 00:00 (Imitrex Inj) 6 mg Q12H PRN SQ 01/09/18 03:45 01/09/18 04:00 (Peridex 0.12% Liq) 15 ml BID@08,20 MT 01/09/18 08:00 01/10/18 08:20 Propofol 100 ml @ 1.56 mls/hr TITRATE PRN IV 01/09/18 08:00 01/09/18 23:52 (Trandate Inj) 10 mg Q2HR PRN IV PUSH 01/09/18 08:00 (Ativan Inj) 2 mg Q4H PRN IV PUSH 01/09/18 08:30 01/10/18 11:57 Levofloxacin/ Dextrose 100 ml @ 100 mls/hr Q24H IV 01/09/18 09:00 01/10/18 08:21 (fentaNYL INJ) 100 mcg Q4H PRN IV 01/09/18 16:15 01/09/18 20:21 Midazolam HCl 100 ml @ 2 mls/hr TITRATE PRN IV 01/09/18 21:30 Future Hold 01/10/18 05:51 Fentanyl Citrate 250 ml @ 5 mls/hr TITRATE PRN IV 01/10/18 10:00 (Xanax) 1 mg Q8H PRN PO 01/10/18 14:00 01/10/18 17:53 (Percocet 10-325 Mg) 1 tab Q6H PRN PO 01/10/18 14:00 Allergies Allergies Coded Allergies penicillin G (Unverified Allergy, Severe, Anaphylaxis, 01/08/18) promethazine (Unverified Adverse Reaction, Severe, NAUSEOUS, 01/08/18) Review of Systems All other ROS: ROS reviewed as documented in chart Exam I&O / VS 01/10/18 01/10/18 01/11/18 15:00 23:00 07:00 Intake Total 1200 ml 242.4 ml Output Total 2250 ml Balance 1200 ml -2007.6 ml IV Total 1200 ml 242.4 ml Output Urine Total 2250 ml Vital Signs Date Time Temp Pulse Resp B/P (MAP) Pulse Ox O2 Delivery O2 Flow Rate FiO2 01/10/18 20:54 98 Nasal Cannula 2.00 01/10/18 18:00 124 01/10/18 16:00 123 01/10/18 16:00 99.0 123 28 119/68 (85) 100 01/10/18 14:47 33 01/10/18 14:00 117 01/10/18 12:00 119 01/10/18 12:00 97.8 119 36 135/75 (95) 97 01/10/18 11:35 97 Nasal Cannula 2.00 01/10/18 10:00 82 01/10/18 08:25 98 45 01/10/18 08:25 45 01/10/18 08:00 45 01/10/18 08:00 98.6 77 43 113/68 (83) 100 01/10/18 08:00 77 01/10/18 04:10 96 45 01/10/18 04:00 45 01/10/18 04:00 98.9 82 17 92/59 (70) 83 01/10/18 01:10 100 45 01/10/18 00:00 98.9 87 23 98/58 (71) 99 01/10/18 00:00 45 01/09/18 21:00 94 16 128/72 01/09/18 20:59 100 45 General: Alert and Oriented, No acute distress Eye: PERRL, EOMI, Normal conjuctiva Respiratory: Non-labored respirations, Symmetrical expansion Cardiology: Normal rate, Intact pulses, Regular Rhythm Musculoskeletal: ROM Neurologic: Alert, Oriented, Normal motor, CN II-XII intact, Normal DTR's Psychiatric: Cooperative, Appropriate mood & affect, Normal judgement Exam Comments alert CN--minimal ptosis. EOM intact PERRL MOTOR 4/5 proximal BUE and BLE with 5/5 distal strength Objective Micro and Labs Laboratory Tests Test 01/10/18 03:50 01/10/18 17:00 White Blood Count 11.4 Red Blood Count 3.89 Hemoglobin 10.0 Hematocrit 31.8 Mean Corpuscular Volume 82.0 Mean Corpuscular Hemoglobin 25.8 Mean Corpuscular Hemoglobin Concent 31.4 Red Cell Distribution Width 26.1 Platelet Count 393 Mean Platelet Volume 8.8 Neutrophils (%) (Auto) 77.8 Lymphocytes (%) (Auto) 13.5 Monocytes (%) (Auto) 6.5 Eosinophils (%) (Auto) 1.3 Basophils (%) (Auto) 0.9 Neutrophils # (Auto) 8.9 Lymphocytes # (Auto) 1.5 Monocytes # (Auto) 0.7 Eosinophils # (Auto) 0.1 Basophils # (Auto) 0.1 CBC Comment AUTO DIFF Differential Comment AUTO DIFF CONFIRMED Platelet Estimate NORMAL Platelet Morphology Comment NORMAL Ovalocytes 1+ Acanthocytes OCC Keratocytes OCC Blood Urea Nitrogen 7 Creatinine 0.59 Random Glucose 71 Total Protein 7.6 Albumin 3.1 Calcium Level 8.5 Alkaline Phosphatase 47 Aspartate Amino Transf (AST/SGOT) 25 Alanine Aminotransferase (ALT/SGPT) 17 Total Bilirubin 0.5 Sodium Level 142 Potassium Level 3.3 3.5 Chloride Level 115 Carbon Dioxide Level 23.5 Anion Gap 4 Estimat Glomerular Filtration Rate 112 Date/Time Source Procedure Growth Status 01/10/18 03:50 Blood Peripheral Aerobic Blood Culture Pending Received 01/10/18 03:50 Blood Peripheral Anaerobic Blood Culture Pending Received 01/09/18 14:03 Nasal Washing Influenza Types A,B Antigen (MANUELITO) - Final NEGATIVE FOR FLU A AND B ANTIGEN.... Complete 01/09/18 12:01 Urine Catheterized Urine Legionella Antigen - Final PRESUMPTIVE NEGATIVE FOR LEGIONELLA P... Complete 01/09/18 12:01 Urine Catheterized Urine Streptococcus pneumoniae Antigen (M - Final PRESUMPTIVE NEGATIVE FOR STREPTOCOCCU... Complete Leonardo De La Fuente MD PhD Jan 10, 2018 20:58
[2018-01-10] MEDS: IMMUNE GLOBULIN INJ 20 GM in SYRINGE/BAG 1 EA IV SCH (21:16)
[2018-01-10] MEDS: ENOXAPARIN SODIUM 30 MG/0.3 ML SYRINGE SQ SCH (23:02)
[2018-01-10] MEDS: SUMAtriptan INJ 6 MG/0.5 ML VIAL SQ PRN (23:49)
[2018-01-11] VITALS (20 sets, daily range): BP systolic 94–165; BP diastolic 58–96; PULSE 62–134; RESP 10–38; TEMP 97.4–98.9; O2SAT 90–100
[2018-01-11] MEDS: ACETAMIN 325 MG/BUTALBITAL 50 MG/CAFFEINE 40 MG TAB PO PRN ×2 (01:06→05:50)
[2018-01-11] MEDS: ALPRAZolam 1 MG TAB PO PRN (01:06)
[2018-01-11] MEDS: LORazepam 2 MG/ML VIAL IV PUSH PRN ×2 (01:06→05:50)
[2018-01-11] MEDS: CHLORHEXIDINE GLUCONATE 2 % 1 PACK (2 CLOTHS) TOP SCH (03:26)
[2018-01-11] MEDS ORDERED: CALCIUM CHLORIDE 10% SOLN 1 GRAM/10 ML SYR IV ONE (05:00)
[2018-01-11] MEDS ORDERED: EPINEPHrine HCL (1:10,000) 1 MG/10 ML SYRINGE IV ONE (05:00)
[2018-01-11] MEDS ORDERED: NALOXONE HCL 4 MG/10 ML MDV IV ONE (05:00)
[2018-01-11] MEDS ORDERED: SODIUM BICARBONATE 8.4% INJ 50 MEQ/50 ML SYR IV ONE (05:00)
--- NOTE | 2018-01-11 05:59 | PD.PN.STU ---
Objective Vitals Vital Signs Date Time Temp Pulse Resp B/P (MAP) Pulse Ox O2 Delivery O2 Flow Rate FiO2 01/11/18 04:05 91 60 01/11/18 04:00 112 01/11/18 04:00 98.4 112 35 94/58 (70) 90 01/11/18 02:03 92 60 01/11/18 02:00 132 01/11/18 00:00 98.3 100 38 134/78 (96) 91 01/11/18 00:00 100 01/10/18 22:00 122 01/10/18 21:30 112 01/10/18 21:16 132 24 181/86 01/10/18 21:15 130 01/10/18 21:12 131 01/10/18 21:11 131 01/10/18 21:00 119 01/10/18 20:54 98 Nasal Cannula 2.00 01/10/18 20:00 118 01/10/18 20:00 99.4 118 28 128/69 (88) 100 01/10/18 18:00 124 01/10/18 16:00 123 01/10/18 16:00 99.0 123 28 119/68 (85) 100 01/10/18 14:47 33 01/10/18 14:00 117 01/10/18 12:00 119 01/10/18 12:00 97.8 119 36 135/75 (95) 97 01/10/18 11:35 97 Nasal Cannula 2.00 01/10/18 10:00 82 01/10/18 08:25 98 45 01/10/18 08:25 45 01/10/18 08:00 45 01/10/18 08:00 98.6 77 43 113/68 (83) 100 01/10/18 08:00 77 I/O 01/10/18 01/10/18 01/10/18 01/11/18 01/11/18 01/11/18 07:00 15:00 23:00 07:00 15:00 23:00 Intake Total 501 ml 1200 ml 242.4 ml 240 ml Output Total 900 ml 2250 ml 1475 ml Balance -399 ml 1200 ml -2007.6 ml -1235 ml Intake Oral 0 ml 240 ml IV Total 441 ml 1200 ml 242.4 ml Other 60 ml Output Urine Total 900 ml 2250 ml 1475 ml # Bowel Movements 0 2 Result Diagram: 01/10/18 0350 01/10/18 1700 Hitesh Whaley M3 Jan 11, 2018 05:59
[2018-01-11] MEDS: CHLORHEXIDINE 0.12% (ORAL KIT) 15 ML CUP MT SCH ×2 (08:00→21:59)
--- NOTE | 2018-01-11 08:07 | HHI.PR ---
Objective Vitals Vital Signs Date Time Temp Pulse Resp B/P (MAP) Pulse Ox O2 Delivery O2 Flow Rate FiO2 01/11/18 06:00 97 01/11/18 04:05 91 60 01/11/18 04:00 112 01/11/18 04:00 98.4 112 35 94/58 (70) 90 01/11/18 02:03 92 60 01/11/18 02:00 132 01/11/18 00:00 98.3 100 38 134/78 (96) 91 01/11/18 00:00 100 01/10/18 22:00 122 01/10/18 21:30 112 01/10/18 21:16 132 24 181/86 01/10/18 21:15 130 01/10/18 21:12 131 01/10/18 21:11 131 01/10/18 21:00 119 01/10/18 20:54 98 Nasal Cannula 2.00 01/10/18 20:00 118 01/10/18 20:00 99.4 118 28 128/69 (88) 100 01/10/18 18:00 124 01/10/18 16:00 123 01/10/18 16:00 99.0 123 28 119/68 (85) 100 01/10/18 14:47 33 01/10/18 14:00 117 01/10/18 12:00 119 01/10/18 12:00 97.8 119 36 135/75 (95) 97 01/10/18 11:35 97 Nasal Cannula 2.00 01/10/18 10:00 82 01/10/18 08:25 98 45 01/10/18 08:25 45 I/O 01/10/18 01/10/18 01/10/18 01/11/18 01/11/18 01/11/18 06:59 14:59 22:59 06:59 14:59 22:59 Intake Total 501 ml 1200 ml 242.4 ml 240 ml 200 ml Output Total 900 ml 2250 ml 1475 ml Balance -399 ml 1200 ml -2007.6 ml -1235 ml 200 ml Intake Oral 0 ml 240 ml IV Total 441 ml 1200 ml 242.4 ml 200 ml Other 60 ml Output Urine Total 900 ml 2250 ml 1475 ml # Bowel Movements 0 2 Result Diagram: 01/10/18 0350 01/10/18 1700 Tesha Grewal MD Jan 11, 2018 08:06
--- NOTE | 2018-01-11 08:10 | PD.PROCEDR ---
Procedure Note Procedure Emergency intubation: INTUBATION: The patient was put in optimal position for the procedure. Rapid sequence intubation was initiated by me using no medication as patient unresponsive few agonal breaths. DL with Mac 4 blade Grade 1 view, single attempt. The patient was intubated with a 8 cuffed endotracheal tube. Tube placement was confirmed by visualization of the tube and balloon passing through the cords, capnometry and subsequent chest x-ray. Breath sounds were equal and well aerated bilaterally postintubation. No breath sounds over stomach. Patient tolerated procedure well. Luda Horn MD Jan 11, 2018 08:10
--- NOTE | 2018-01-11 08:43 | HHI.CCPN ---
Subjective Remarks/Hospital Course 01/08: 42-year-old unfortunate female presenting to the emergency department for evaluation of altered mental status. This is her seventh admission within the last 5 months for the similar symptoms. Per EMS patient's ex- found her in bed yesterday, apparently at that time she was still verbal. When he returned home this afternoon she was not responding, stiff and moaning. H&P is limited due to patient's clinical condition. Her last admission was 2 weeks ago with a diagnosis of myasthenia gravis exacerbation. Per ED documentation report she has been sick with flulike symptoms all week including nausea and vomiting and diarrhea. She has been unable to keep down any of her medications. Every time she eats she has a bowel movement. Per ED reports she also intentionally overdosed with Midodrin. 01/09: Patient agitated and anxious this morning not verbalizing. Appeared to have some tachypnea and dyspnea. Patient became extremely anxious and agitated with heart rate going up to the 160s and blood pressure 170s systolic. She had dilated pupils bilaterally despite Ativan 2 mg IV given earlier to control anxiety, probably secondary to cocaine and amphetamines in her system as her tox screen came back positive for cocaine, amphetamines, barbiturates. Patient was emergently intubated using etomidate for sedation and placed on mechanical ventilation. No neuromuscular blockade was used during intubation in view of myasthenia gravis. Her heart rate came down to 150s following intubation. 1 L normal saline fluid bolus was ordered following which heart rate came down to 120s. /2: Resting comfortably on sedation, awake and alert, orally intubated on mechanical ventilation. On propofol Versed and fentanyl drips. Following commands appropriately, moving all 4 extremities. Denies any shortness of breath by shaking her head. 01/11: I was emergently called to the bedside today as patient was unresponsive with agonal breathing hardly 2-3 breaths per minute, and severe bradycardia, HR down to 25/mt, impending cardio pulmonary arrest. Epinephrine 1 mg IV push given stat, followed by one ampule of bicarb and 1 g of calcium chloride. Patient was intubated emergently without any medication as she was comatose. Apparently was hypoxic agitated requiring BiPAP but noncompliant. Received Ativan 2 mg at after midnight and also sent 1 dose of Xanax apparently for agitation Objective Vital Signs Date Time Temp Pulse Resp B/P (MAP) Pulse Ox O2 Delivery O2 Flow Rate FiO2 01/11/18 06:00 97 01/11/18 04:05 91 60 01/11/18 04:00 98.4 35 94/58 (70) 01/10/18 20:54 Nasal Cannula 2.00 Intake and Output 01/11/18 01/11/18 01/11/18 07:59 15:59 23:59 Intake Total 440 ml Output Total 1475 ml Balance -1035 ml Result Diagram: 01/10/18 0350 01/10/18 1700 Other Results Microbiology Date/Time Source Procedure Growth Status 01/09/18 14:03 Nasal Washing Influenza Types A,B Antigen (MANUELITO) - Final NEGATIVE FOR FLU A AND B ANTIGEN.... Complete 01/09/18 12:01 Urine Catheterized Urine Legionella Antigen - Final PRESUMPTIVE NEGATIVE FOR LEGIONELLA P... Complete 01/09/18 12:01 Urine Catheterized Urine Streptococcus pneumoniae Antigen (M - Final PRESUMPTIVE NEGATIVE FOR STREPTOCOCCU... Complete 01/08/18 22:25 Urine Catheterized Urine Urine Culture - Final NO GROWTH IN 48 HOURS. Complete Imaging Last 24 hours Impressions Chest X-Ray 01/08/18 0000 Signed Impressions: Service Date/Time: Monday, January 08, 2018 22:21 - CONCLUSION: No acute disease. Volodymyr Quinn MD Objective Remarks GEN: Unresponsive breathing about 2-3 breaths per minute, severe bradycardia impending cardiopulmonary arrest HEENT: Pupils 2 mm sluggish. Oral cavity is moist Neck: No JVD Chest/Pulm: Agonal breathing, hypopneic breathing 2 breaths per minute. CVS: Severe bradycardia heart rate 25 bpm, rapidly slowing down. No murmurs GI/abdomen: soft, nontender, bowel sounds sluggish NEURO: Unresponsive to painful stimuli. Pupils 2 mm sluggish Urinary Catheter: Yes Assessment to: Continue A/P Assessment and Plan Neuro: Altered mental status/unresponsive Severe encephalopathy -Most likely developed severe hypercapnia secondary to benzodiazepines and underlying myasthenia -Hold as needed Xanax. Propofol for sedation. Use fentanyl as needed -Use fentanyl as needed -History of polypharmacy, history of Xanax and opioid use -Drug screen positive for cocaine, barbiturates, amphetamines -Citalopram held in view of concern regarding overdose. -Psych following Myasthenia gravis, with exacerbation -IVIG per neurology recommendation -Mycophenolate Mofetil -Prednisone -change to IV Solumedrol -Pyridostigmine [place] -Further management per neurologist -Holding gabapentin for neuropathy -Holding sumatriptan for migraine RESP: Impending cardiopulmonary arrest Acute hypoxemic and hypercarbic respiratory failure -Emergently intubated and placed on full mechanical ventilation PRVC mode -DuoNeb every 6 hours scheduled and as needed -Ventilator bundle -Check sputum culture CVS: Severe bradycardia Impending cardiac arrest -Severe bradycardia most likely secondary to severe acidosis -Received epinephrine bicarb and calcium -Check cardiac enzymes check lactic acid check 12-lead EKG -IV hydration, labetalol when necessary for hypertension. GI: -N.p.o., continue famotidine -Start tube feeds in 24 hours, if stable /Endo: Hypokalemia -Electrolytes replacement per ICU protocol -Strict intake output -Insert Ledezma catheter Heme: Anemia -Continue Ferrous Sulfate ID: Right lower lobe pneumonia/aspiration Add Zosyn as patient has new RLL infiltrate. Additional 1 dose of vancomycin. [place] culture Nasal aspirate negative for influenza A and B neg. Urine for strep pneumo and Legionella antigen negative. History of C. difficile and recent diarrhea, will check stool for C. difficile though per nursing she has not had diarrhea since arrival to ICU. Vancomycin IV 1 dose, Levaquin 500 milligrams IV daily ordered for empiric antibiotic coverage. WBC steadily improving Check pro calcitonin. Endocrine: SSI for glycemic control as patient is on prednisone. DVT GI prophylaxis -SCDs -Lovenox -Pepcid Critical Care: The total critical care time was 77 minutes excluding procedures. Time to perform other separately billable procedures was not included in the critical care time. Additional 20 minutes spent on ventilator adjustments on for severe refractory hypoxemia Bedside Echo hyperdynamic LV and RV. Severe air trapping on bag and mask ventilation. Ventilator rate reduced to 10 inspiratory pressure adjusted to get a tidal volume 700 mL for adequate minute ventilation. PEEP increased to 9. Eventual improvement in oxygen saturation. Start Flolan at 50,000 ng Total CCT 95 min excluding procedures Luda Horn MD Jan 11, 2018 08:43
[2018-01-11] MEDS ORDERED: ROCURONIUM INJ 50 MG/5 ML VIAL ONE (08:45)
[2018-01-11] MEDS ORDERED: VANCOMYCIN INJ 1,000 MG in SODIUM CHLOR 0.9% 250 ML INJ 250 ML IV ONE (09:00)
[2018-01-11] MEDS: SODIUM CHLORIDE 0.9% FLUSH 10 ML FLUSH IV FLUSH SCH ×2 (09:00→22:01)
[2018-01-11 09:11] LABS: AUTOMATED NEUTROPHIL # 17.7 TH/MM3 (1.8-7.7); BASOPHIL # 0.1 TH/MM3 (0-0.2); BASOPHIL % 0.3 % (0.0-2.0); EOSINOPHIL % 0.1 % (0.0-4.0); HEMATOCRIT 34.9 % (35.0-46.0); HEMOGLOBIN 11.1 GM/DL (11.6-15.3); LYMPH % 1.2 % (9.0-44.0); LYMPHOCYTE # 0.2 TH/MM3 (1.0-4.8); MEAN CELL VOLUME 82.3 FL (80.0-100.0); MEAN CORPUSCULAR HEMOGLOBIN 26.2 PG (27.0-34.0); MEAN CORPUSCULAR HGB CONC 31.9 % (32.0-36.0); MEAN PLATELET VOLUME 8.7 FL (7.0-11.0); MONO % 1.9 % (0.0-8.0); MONOCYTE # 0.4 TH/MM3 (0-0.9); NEUT % 96.5 % (16.0-70.0); PLATELET COUNT 374 TH/MM3 (150-450); RED BLOOD COUNT 4.24 MIL/MM3 (4.00-5.30); WHITE BLOOD COUNT 18.4 TH/MM3 (4.0-11.0)
[2018-01-11] MEDS: RESP: ALBUTEROL 2.5 MG/IPRATROPIUM 0.5 MG NEB (SCH) NEB ×4 (09:17→23:12)
[2018-01-11 09:40] LABS: ALBUMIN 2.8 GM/DL (3.4-5.0); ALT (GPT) 18 U/L (10-53); AST (GOT) 22 U/L (15-37); BICARBONATE 27.4 MEQ/L (21.0-32.0); BLOOD UREA NITROGEN 8 MG/DL (7-18); CHLORIDE 106 MEQ/L (98-107); GLOMERULAR FILTRATION RATE 79 ML/MIN (>89); GLUCOSE,RANDOM 195 MG/DL (74-106); SODIUM (NA) 138 MEQ/L (136-145)
[2018-01-11 09:42] LABS: TROPONIN I 0.21 NG/ML (0.02-0.05)
[2018-01-11 09:44] LABS: ALKALINE PHOSPHATASE 66 U/L (45-117); TOTAL BILIRUBIN ADULT 0.3 MG/DL (0.2-1.0); TOTAL PROTEIN 8.3 GM/DL (6.4-8.2)
[2018-01-11 09:46] LABS: BANDS 27 % (0-6); MONOCYTES 1 % (0-8); NEUTROPHIL # MANUAL DIFF 18.2 TH/MM3 (1.8-7.7); POLYS (SEG NEUTROPHILS) 72 % (16-70)
[2018-01-11] MEDS: LEVOFLOXACIN 500 MG PREMIX INJ 100 ML IV SCH (09:48)
--- NOTE | 2018-01-11 09:59 | RADRPT ---
EXAM DATE/TIME: 01/11/2018 08:50 [facility] COMPARISON: CHEST SINGLE AP, January 09, 2018, 8:23. INDICATIONS : Post intubation. MEDICAL HISTORY : Myasthenia gravis. SURGICAL HISTORY : Thymectomy. Infusaport. ENCOUNTER: Subsequent ACUITY: 3 days PAIN SCORE: Non-responsive. LOCATION: Bilateral chest FINDINGS: Right base infiltrate developing, probably mostly in the right middle lobe. There is associated right -sided volume loss. Left lung remains clear. Heart size stable, within normal limits. Endotracheal tube tip is approximate 4 cm above the b[place]. Left subclavian Tkfyay-a-Excd catheter with tip in the superior vena cava again noted. The nasogastri c tube has been removed. CONCLUSION: Appropriate position of the endotracheal tube. Right base consolidation developing. Kory Suero MD on January 11, 2018 at 9:55 Board Certified Radiologist. This report was verified electronically.
[2018-01-11] MEDS ORDERED: RESP: ALBUTEROL 2.5 MG/IPRATROPIUM 0.5 MG NEB (SCH) NEB (10:00)
[2018-01-11] MEDS: RESP: BUDESONIDE 0.5 MG/2 ML NEB NEB SCH ×2 (10:03→19:38)
[2018-01-11] MEDS: EPOPROSTENOL NEB SOLUTION 50 NG/KG/MIN 100 ML NEB SCH ×4 (10:16→21:59)
[2018-01-11] MEDS: methylPREDNISolone SOD SUCC 125 MG/2 ML VIAL IV PUSH SCH ×2 (10:17→16:33)
[2018-01-11] MEDS: PROPOFOL 1000 MG/100 ML INJ 100 ML IV PRN ×3 (10:30→22:10)
[2018-01-11] MEDS: metroNIDAZOLE 500 MG INJ 100 ML IV SCH ×2 (11:16→16:34)
[2018-01-11] MEDS: LACTOBACILLUS ACIDOPHILUS TAB PO SCH (11:43)
[2018-01-11] MEDS: DOCUSATE SODIUM 50 MG/SENNA 8.6 MG TAB PO SCH ×2 (11:43→22:01)
[2018-01-11] MEDS: ASPIRIN 81 MG CHEW TAB CHEW SCH (11:43)
[2018-01-11] MEDS: PYRIDOSTIGMINE BROMIDE 60 MG TAB PO SCH ×2 (11:43→16:34)
[2018-01-11] MEDS: FERROUS SULFATE 325 MG (65 MG ELEMENTAL IRON) TAB PO SCH ×2 (11:43→16:34)
[2018-01-11] MEDS: FAMOTIDINE 20 MG TAB PO SCH (11:44)
[2018-01-11] MEDS: MYCOPHENOLATE MOFETIL 500 MG TAB PO SCH (11:44)
[2018-01-11] MEDS: AZTREONAM INJ 2,000 MG in SODIUM CHLORIDE 0.9% INJ 100 ML IV SCH ×2 (14:23→18:45)
[2018-01-11 14:56] LABS: BACTERIA, URINE RARE /hpf; BILIRUBIN, URINE NEG (NEG); BLOOD, URINE SMALL (NEG); GLUCOSE,URINE 300 mg/dL (NEG); HYALINE CAST, URINE 2 /lpf (RARE); KETONE, URINE 150 mg/dL (NEG); MUCUS URINE FEW /lpf (OCC); NITRITE,URINE NEG (NEG); URINE COLOR YELLOW (YELLW/STRAW); URINE LEUKOCYTE ESTERASE NEG (NEG)
[2018-01-11 16:03] LABS: TROPONIN I 0.14 NG/ML (0.02-0.05)
--- NOTE | 2018-01-11 16:19 | EKG ---
Date Performed: 01/11/2018 Time Performed: 08:45:48 PTAGE: 42 years EKG: SINUS TACHYCARDIA ABNORMAL RHYTHM ECG PREVIOUS TRACING : 01/08/2018 20.[address] depression are new since the prior jose ng. Clinical correlation is recommended. DOCTOR: Babar Walters Interpretating Date/Time 01/11/2018 16:18:48
[2018-01-11] MEDS: SODIUM CHLOR 0.9% 1000 ML INJ 1,000 ML IV SCH (16:35)
[2018-01-11] MEDS ORDERED: MIDAZOLAM HCL 2 MG/2 ML VIAL IV PUSH ONE (17:30)
[2018-01-11] MEDS: MIDAZOLAM 100 MG/100 ML INJ 100 ML IV PRN (17:39)
[2018-01-11] MEDS ORDERED: NOREPINEPHRINE 4 MG/D5W 250 ML IV PRN (18:15)
[2018-01-11] MEDS ORDERED: MYCOPHENOLATE MOFETIL 200 MG/ML 175 ML BOTTLE PO SCH (21:00)
[2018-01-11] MEDS: MYCOPHENOLATE MOFETIL 200 MG/ML 175 ML BOTTLE PO SCH (22:01)
[2018-01-11] MEDS: IMMUNE GLOBULIN INJ 20 GM in SYRINGE/BAG 1 EA IV SCH (22:01)
[2018-01-11] MEDS: ENOXAPARIN SODIUM 30 MG/0.3 ML SYRINGE SQ SCH (22:10)
[2018-01-11 22:20] LABS: TROPONIN I 0.09 NG/ML (0.02-0.05)
[2018-01-12] VITALS (23 sets, daily range): BP systolic 97–147; BP diastolic 54–86; PULSE 54–130; RESP 10–20; TEMP 97.4–99; O2SAT 98–100
[2018-01-12] MEDS: metroNIDAZOLE 500 MG INJ 100 ML IV SCH ×3 (01:12→16:55)
[2018-01-12] MEDS: methylPREDNISolone SOD SUCC 125 MG/2 ML VIAL IV PUSH SCH ×3 (01:12→16:55)
[2018-01-12] MEDS: AZTREONAM INJ 2,000 MG in SODIUM CHLORIDE 0.9% INJ 100 ML IV SCH ×3 (02:41→18:20)
[2018-01-12] MEDS: SODIUM CHLOR 0.9% 1000 ML INJ 1,000 ML IV SCH ×2 (02:41→10:06)
[2018-01-12] MEDS: CHLORHEXIDINE GLUCONATE 2 % 1 PACK (2 CLOTHS) TOP SCH (02:42)
[2018-01-12] MEDS: RESP: ALBUTEROL 2.5 MG/IPRATROPIUM 0.5 MG NEB (SCH) NEB ×7 (03:38→23:58)
[2018-01-12] MEDS: PROPOFOL 1000 MG/100 ML INJ 100 ML IV PRN ×3 (05:48→15:55)
[2018-01-12] MEDS: RESP: BUDESONIDE 0.5 MG/2 ML NEB NEB SCH ×2 (07:30→20:10)
[2018-01-12] MEDS: PYRIDOSTIGMINE BROMIDE 60 MG TAB PO SCH ×3 (08:12→16:55)
[2018-01-12] MEDS: CHLORHEXIDINE 0.12% (ORAL KIT) 15 ML CUP MT SCH ×2 (08:12→21:30)
[2018-01-12] MEDS: LEVOFLOXACIN 500 MG PREMIX INJ 100 ML IV SCH (08:12)
[2018-01-12] MEDS: ASPIRIN 81 MG CHEW TAB CHEW SCH (08:12)
[2018-01-12] MEDS: MYCOPHENOLATE MOFETIL 200 MG/ML 175 ML BOTTLE PO SCH ×2 (08:13→21:12)
[2018-01-12] MEDS: SODIUM CHLORIDE 0.9% FLUSH 10 ML FLUSH IV FLUSH SCH ×2 (08:13→21:12)
[2018-01-12] MEDS: SODIUM CHLORIDE 0.9% FLUSH 10 ML FLUSH IV FLUSH PRN (08:13)
[2018-01-12] MEDS: FAMOTIDINE 20 MG TAB PO SCH (08:14)
[2018-01-12] MEDS: DOCUSATE SODIUM 50 MG/SENNA 8.6 MG TAB PO SCH ×2 (08:14→21:00)
[2018-01-12] MEDS: LACTOBACILLUS ACIDOPHILUS TAB PO SCH (08:14)
[2018-01-12] MEDS: EPOPROSTENOL NEB SOLUTION 50 NG/KG/MIN 100 ML NEB SCH ×2 (09:21)
[2018-01-12] MEDS: MIDAZOLAM 100 MG/100 ML INJ 100 ML IV PRN ×2 (10:32→21:30)
--- NOTE | 2018-01-12 10:34 | HHI.CCPN ---
Subjective Remarks/Hospital Course 01/08: 42-year-old unfortunate female presenting to the emergency department for evaluation of altered mental status. This is her seventh admission within the last 5 months for the similar symptoms. Per EMS patient's ex- found her in bed yesterday, apparently at that time she was still verbal. When he returned home this afternoon she was not responding, stiff and moaning. H&P is limited due to patient's clinical condition. Her last admission was 2 weeks ago with a diagnosis of myasthenia gravis exacerbation. Per ED documentation report she has been sick with flulike symptoms all week including nausea and vomiting and diarrhea. She has been unable to keep down any of her medications. Every time she eats she has a bowel movement. Per ED reports she also intentionally overdosed with Midodrin. 01/09: Patient agitated and anxious this morning not verbalizing. Appeared to have some tachypnea and dyspnea. Patient became extremely anxious and agitated with heart rate going up to the 160s and blood pressure 170s systolic. She had dilated pupils bilaterally despite Ativan 2 mg IV given earlier to control anxiety, probably secondary to cocaine and amphetamines in her system as her tox screen came back positive for cocaine, amphetamines, barbiturates. Patient was emergently intubated using etomidate for sedation and placed on mechanical ventilation. No neuromuscular blockade was used during intubation in view of myasthenia gravis. Her heart rate came down to 150s following intubation. 1 L normal saline fluid bolus was ordered following which heart rate came down to 120s. /2: Resting comfortably on sedation, awake and alert, orally intubated on mechanical ventilation. On propofol Versed and fentanyl drips. Following commands appropriately, moving all 4 extremities. Denies any shortness of breath by shaking her head. 01/11: I was emergently called to the bedside today as patient was unresponsive with agonal breathing hardly 2-3 breaths per minute, and severe bradycardia, HR down to 25/mt, impending cardio pulmonary arrest. Epinephrine 1 mg IV push given stat, followed by one ampule of bicarb and 1 g of calcium chloride. Patient was intubated emergently without any medication as she was comatose. Apparently was hypoxic agitated requiring BiPAP but noncompliant. Received Ativan 2 mg at after midnight and also sent 1 dose of Xanax apparently for agitation 01/11: Remains intubated sedated but ventilator mechanics has improved. FiO2 down to 50%. On propofol and Versed gtt, but wide awake following commands. Off pressors. remains on full alignment 50,000 ng. Start weaning Flolan per protocol Objective Vital Signs Date Time Temp Pulse Resp B/P (MAP) Pulse Ox O2 Delivery O2 Flow Rate FiO2 01/12/18 10:00 50 01/12/18 10:00 104 01/12/18 08:00 98.4 10 124/82 (96) 99 01/10/18 20:54 Nasal Cannula 2.00 Intake and Output 01/12/18 01/12/18 01/13/18 08:00 16:00 00:00 Intake Total 1460 ml 700 ml Output Total 1150 ml Balance 310 ml 700 ml Result Diagram: 01/11/18 0900 01/11/18 0900 Other Results Microbiology Date/Time Source Procedure Growth Status 01/09/18 14:03 Nasal Washing Influenza Types A,B Antigen (MANUELITO) - Final NEGATIVE FOR FLU A AND B ANTIGEN.... Complete 01/09/18 12:01 Urine Catheterized Urine Legionella Antigen - Final PRESUMPTIVE NEGATIVE FOR LEGIONELLA P... Complete 01/09/18 12:01 Urine Catheterized Urine Streptococcus pneumoniae Antigen (M - Final PRESUMPTIVE NEGATIVE FOR STREPTOCOCCU... Complete Laboratory Tests Test 01/11/18 10:25 Blood Gas Puncture Site RT RADIAL Blood Gas Patient Temperature 98.6 Blood Gas HCO3 24 mmol/L (22-26) Blood Gas Base Excess -0.5 mmol/L (-2-2) Blood Gas Oxygen Saturation 96 % (90-100) Arterial Blood pH 7.37 (7.380-7.420) Arterial Blood Partial Pressure CO2 43 mmHg (38-42) Arterial Blood Partial Pressure O2 97 mmHg (61-120) Arterial Blood Oxygen Content 16.1 Vol % (12.0-20.0) Arterial Blood Carboxyhemoglobin 1.4 % (0-4) Arterial Blood Methemoglobin 1.0 % (0-2) Blood Gas Hemoglobin 11.9 G/DL (12.0-16.0) Oxygen Delivery Device VENTILATOR Blood Gas Ventilator Setting PC/AC Blood Gas Inspired Oxygen 100 % Imaging Last 24 hours Impressions Chest X-Ray 01/08/18 0000 Signed Impressions: Service Date/Time: Monday, January 08, 2018 22:21 - CONCLUSION: No acute disease. Volodymyr Quinn MD Objective Remarks GEN: Remains intubated sedated with propofol and Versed infusions. Critically ill HEENT: Pupils 2 mm sluggish. Orotracheally intubated Neck: No JVD Chest/Pulm: Air entry diminished at the right base with coarse crackles. Remains on inhaled Flolan CVS: Tachycardic, off pressors no murmur. GI/abdomen: soft, nontender, bowel sounds sluggish NEURO: Pupils are reactive. On sedation patient eyes are spontaneously open. Follows 4. No focal deficits Urinary Catheter: Yes Assessment to: Continue A/P Assessment and Plan Neuro: Altered mental status Severe encephalopathy -Most likely developed severe hypercapnia secondary to benzodiazepines and underlying myasthenia exacerbation -Propofol, Versed GTT for sedation. Add fentanyl infusion for pain control -History of polypharmacy, history of Xanax and opioid use -Drug screen positive for cocaine, barbiturates, amphetamines -Citalopram held in view of concern regarding overdose. -Psych following Myasthenia gravis, with exacerbation -IVIG per neurology recommendation -Mycophenolate Mofetil -Prednisone -changed to IV Solumedrol -Pyridostigmine [place] -Further management per neurologist -Holding gabapentin for neuropathy -Holding sumatriptan for migraine RESP: Respiratory arrest Acute hypoxemic and hypercarbic respiratory failure Right lower lobe pneumonia/aspiration -Emergently intubated and placed on full mechanical ventilation PRVC mode -DuoNeb every 6 hours scheduled and as needed -Currently on inhaled Flolan, wean per protocol -Ventilator bundle -f/u sputum culture, broad-spectrum antibiotics -start ventilator weaning in 24 hours if stable CVS: Severe bradycardia most likely from severe respiratory acidosis Sinus tachycardia now -Severe bradycardia most likely secondary to severe acidosis -Received epinephrine bicarb and calcium -Slightly elevated troponin secondary to bowel -IV hydration, labetalol when necessary for hypertension, tachycardia. GI: -N.p.o., continue famotidine -Start tube feeds with Jevity today /Endo: Hypokalemia -Electrolytes replacement per ICU protocol -Strict intake output -Insert Ledezma catheter Heme: Anemia -Continue Ferrous Sulfate ID: Right lower lobe pneumonia/aspiration Severe sepsis Continue Zosyn as patient has new RLL infiltrate. Additional 1 dose of vancomycin. Follow-up lopez culture Continue Levaquin Nasal aspirate negative for influenza A and B neg. Urine for strep pneumo and Legionella antigen negative. History of C. difficile and recent diarrhea, will check stool for C. difficile though per nursing she has not had diarrhea since arrival to ICU. DVT GI prophylaxis -SCDs -Lovenox -Pepcid Critical Care: The total critical care time was 35 minutes excluding procedures. Time to perform other separately billable procedures was not included in the critical care time. Remains critically ill but stabilizing. Remains in sepsis due to right lower lobe pneumonia. Oxygenation is improved and will start weaning Flolan inhaled per protocol Luda Horn MD Jan 12, 2018 10:34
[2018-01-12 10:52] LABS: AUTOMATED NEUTROPHIL # 15.1 TH/MM3 (1.8-7.7); BASOPHIL % 0.1 % (0.0-2.0); HEMATOCRIT 29.3 % (35.0-46.0); HEMOGLOBIN 9.4 GM/DL (11.6-15.3); LYMPH % 1.2 % (9.0-44.0); LYMPHOCYTE # 0.2 TH/MM3 (1.0-4.8); MEAN CELL VOLUME 80.1 FL (80.0-100.0); MEAN CORPUSCULAR HEMOGLOBIN 25.6 PG (27.0-34.0); MEAN CORPUSCULAR HGB CONC 31.9 % (32.0-36.0); MEAN PLATELET VOLUME 8.9 FL (7.0-11.0); MONO % 1.4 % (0.0-8.0); MONOCYTE # 0.2 TH/MM3 (0-0.9); NEUT % 97.3 % (16.0-70.0); PLATELET COUNT 338 TH/MM3 (150-450); RED BLOOD COUNT 3.66 MIL/MM3 (4.00-5.30); RED CELL DISTRIBUTION WIDTH 26.3 % (11.6-17.2); WHITE BLOOD COUNT 15.5 TH/MM3 (4.0-11.0)
[2018-01-12] MEDS ORDERED: RASS Change Order XX ONE (11:00)
[2018-01-12] MEDS ORDERED: METOPROLOL TARTRATE 5 MG/5 ML VIAL ONE (11:09)
[2018-01-12] MEDS: fentaNYL 2,500 MCG/NS 250 ML IV PRN (11:13)
[2018-01-12] MEDS: FERROUS SULFATE 325 MG (65 MG ELEMENTAL IRON) TAB PO SCH ×2 (11:15→16:55)
[2018-01-12] MEDS ORDERED: METOPROLOL TARTRATE 5 MG/5 ML VIAL IV PUSH ONE (11:15)
[2018-01-12 11:16] LABS: ALBUMIN 2.2 GM/DL (3.4-5.0); ALKALINE PHOSPHATASE 54 U/L (45-117); ALT (GPT) 11 U/L (10-53); AST (GOT) 9 U/L (15-37); BLOOD UREA NITROGEN 7 MG/DL (7-18); CALCIUM 8.6 MG/DL (8.5-10.1); CHLORIDE 114 MEQ/L (98-107); GLOMERULAR FILTRATION RATE 176 ML/MIN (>89); GLUCOSE,RANDOM 117 MG/DL (74-106); MAGNESIUM 2.2 MG/DL (1.5-2.5); PHOSPHORUS 2.5 MG/DL (2.5-4.9); SODIUM (NA) 146 MEQ/L (136-145); TOTAL BILIRUBIN ADULT 0.2 MG/DL (0.2-1.0); TOTAL PROTEIN 7.7 GM/DL (6.4-8.2)
--- NOTE | 2018-01-12 11:19 | RADRPT ---
EXAM DATE/TIME: 01/12/2018 10:40 [facility] COMPARISON: CHEST SINGLE AP, January 11, 2018, 8:50. INDICATIONS : Respiratory disease. MEDICAL HISTORY : Myasthenia gravis SURGICAL HISTORY : Thymectomy. Infusaport ENCOUNTER: Subsequent ACUITY: 2 months PAIN SCORE: Non-responsive. LOCATION: Bilateral chest FINDINGS: ET tube tip well above the brenton. Left subclavian catheter tip projects over the mid superior vena cava. Increasing infiltrates in the right lower lung with consolidation lower lateral and loss of de lineation of a portion of the lateral right hemidiaphragm stop left lung is clear. The heart is norm al in size. CONCLUSION: Increasing infiltrates in the right lower lobe with interval development of an irregular area of cons olidation. Pilo Walker MD on January 12, 2018 at 11:16 Board Certified Radiologist. This report was verified electronically.
[2018-01-12] MEDS: BENEPROTEIN POWDER 1 PACK G-TUBE SCH ×2 (11:28→16:55)
[2018-01-12 11:36] LABS: BANDS 9 % (0-6); LYMPHOCYTES 3 % (9-44); MONOCYTES 4 % (0-8); NEUTROPHIL # MANUAL DIFF 14.4 TH/MM3 (1.8-7.7); POLYS (SEG NEUTROPHILS) 84 % (16-70)
[2018-01-12 11:37] LABS: OVALOCYTES 1+ (NORMAL); TEARDROP RBCS 1+ (NORMAL)
[2018-01-12] MEDS ORDERED: EPOPROSTENOL NEB SOLUTION 40 NG/KG/MIN 100 ML NEB SCH ×2 (12:00)
[2018-01-12] MEDS: POTASSIUM CHLOR 40 MEQ PREMIX 100 ML IV PRN ×2 (12:06→14:21)
--- NOTE | 2018-01-12 18:10 | HHI.PR ---
Review/Management Diagnosis myasthenia gravis----still with significant weakness despite ivig. depression Plan start plasmapheresis---total of 5 treatments every other day. Hematology assistance greatly appreciated. Diagnosis/Plan: Subjective Subjective Comments Pt reintubated. still with weakness Active Medications Current Medications Medications (Trade) Dose Ordered Sig/Gómez Route Start Time Stop Time Status Last Admin Immune Globulin 20 gm/Syringe / Bag 200 ml @ 14.7 mls/hr Q24H IV 01/08/18 21:00 01/13/18 10:37 01/11/18 22:01 (Aspirin Chew) 81 mg DAILY CHEW 01/09/18 09:00 01/12/18 08:12 (CeleXA) 40 mg DAILY PO 01/09/18 09:00 Future Hold (Ferrous Sulfate) 325 mg BID@12,17 PO 01/09/18 12:00 01/12/18 16:55 (Neurontin) 300 mg Q8H PO 01/08/18 23:15 Future Hold (Deltasone) 5 mg DAILY PO 01/09/18 09:00 Future Hold 01/10/18 08:20 (Mestinon) 120 mg TIDAC PO 01/09/18 08:00 01/12/18 16:55 (Lactinex) 1 tab DAILY PO 01/09/18 09:00 01/12/18 08:14 (Fioricet 325-50-40) 1 tab Q6H PRN PO 01/08/18 23:15 01/11/18 05:50 Sodium Chloride 1,000 ml @ 84 mls/hr [id number] IV 01/08/18 23:20 01/12/18 10:06 (NS Flush) 2 ml UNSCH PRN IV FLUSH 01/08/18 23:30 01/12/18 08:13 (NS Flush) 2 ml BID IV FLUSH 01/09/18 09:00 01/12/18 08:13 (Tylenol) 650 mg Q6H PRN PO 01/08/18 23:30 01/09/18 14:58 (Pepcid) 20 mg DAILY PO 01/09/18 09:00 01/12/18 08:14 (Zofran Inj) 4 mg Q6H PRN IV PUSH 01/08/18 23:30 01/10/18 13:09 (Duoneb Neb) 1 ampule Q2HR NEB PRN INH 01/08/18 23:30 01/09/18 06:48 (Lovenox Inj) 30 mg Q24H SQ 01/08/18 23:30 01/11/18 22:10 Miscellaneous Information 1 [id number] XX 01/08/18 23:30 01/08/18 23:30 (Chlorhexidine 2% Cloth) 3 pack Taper DAILY@04 TOP 01/09/18 04:00 01/05/19 03:59 01/12/18 02:42 (Chlorhexidine 2% Cloth) 3 pack UNSCH PRN TOP 01/08/18 23:30 (Bonita-Colace) 1 tab BID PO 01/09/18 09:00 01/12/18 08:14 (Milk Of Magnesia Liq) 30 ml Q12H PRN PO 01/08/18 23:30 01/10/18 17:53 (Senokot) 17.2 mg Q12H PRN PO 01/08/18 23:30 (Dulcolax Supp) 10 mg DAILY PRN RECTAL 01/08/18 23:30 (Lactulose Liq) 30 ml DAILY PRN PO 01/08/18 23:30 Potassium Chloride 100 ml @ 50 mls/hr Q2H PRN IV 01/09/18 00:00 01/12/18 14:21 Potassium Chloride 100 ml @ 50 mls/hr Q2H PRN IV 01/09/18 00:00 (K-Lyte Cl Eff) 50 meq UNSCH PRN PO 01/09/18 00:00 Potassium Chloride 100 ml @ 25 mls/hr UNSCH PRN IV 01/09/18 00:00 01/10/18 08:19 Potassium Chloride 100 ml @ 50 mls/hr Q2H PRN IV 01/09/18 00:00 Magnesium Sulfate 4 gm/Sodium Chloride 100 ml @ 50 mls/hr UNSCH PRN IV 01/09/18 00:00 (Mag-Ox) 800 mg UNSCH PRN PO 01/09/18 00:00 Magnesium Sulfate 2 gm/Sodium Chloride 100 ml @ 50 mls/hr UNSCH PRN IV 01/09/18 00:00 (K-Phos) 2,000 mg Q4H PRN PO 01/09/18 00:00 Sodium Phosphate 30 mmol/Sodium Chloride 250 ml @ 42 mls/hr UNSCH PRN IV 01/09/18 00:00 (K-Phos) 2,000 mg UNSCH PRN PO/TUBE 01/09/18 00:00 Potassium Phosphate 30 mmol/ Sodium Chloride 260 ml @ 42 mls/hr UNSCH PRN IV 01/09/18 00:00 (Imitrex Inj) 6 mg Q12H PRN SQ 01/09/18 03:45 01/10/18 23:49 (Peridex 0.12% Liq) 15 ml BID@08,20 MT 01/09/18 08:00 01/12/18 08:12 Propofol 100 ml @ 1.56 mls/hr TITRATE PRN IV 01/09/18 08:00 01/12/18 15:55 (Trandate Inj) 10 mg Q2HR PRN IV PUSH 01/09/18 08:00 01/10/18 21:23 (Ativan Inj) 2 mg Q4H PRN IV PUSH 01/09/18 08:30 01/11/18 05:50 Levofloxacin/ Dextrose 100 ml @ 100 mls/hr Q24H IV 01/09/18 09:00 01/12/18 08:12 (fentaNYL INJ) 100 mcg Q4H PRN IV 01/09/18 16:15 01/09/18 20:21 (Percocet 10-325 Mg) 1 tab Q6H PRN PO 01/10/18 14:00 01/10/18 21:14 (SoluMEDROL INJ) 40 mg Q8H IV PUSH 01/11/18 09:00 01/12/18 16:55 (Pulmicort Respule Neb) 0.5 mg Q12HR NEB NEB 01/11/18 08:45 01/12/18 07:30 Aztreonam 2000 mg/ Sodium Chloride 100 ml @ 200 mls/hr Q8H IV 01/11/18 11:00 01/12/18 10:34 Metronidazole 100 ml @ 100 mls/hr Q8H IV 01/11/18 10:00 01/12/18 16:55 (Duoneb Neb) 1 ampule Q4HR NEB NEB 01/11/18 12:00 01/12/18 15:03 Midazolam HCl 100 ml @ 2 mls/hr TITRATE PRN IV 01/11/18 17:30 01/12/18 10:32 Norepinephrine Bitartrate 250 ml @ 7.5 mls/hr TITRATE PRN IV 01/11/18 18:15 01/11/18 09:30 (Cellcept Liq) 500 mg BID PO 01/11/18 21:00 01/12/18 08:13 (Beneprotein Powder) 1 pack TID G-TUBE 01/12/18 13:00 01/12/18 16:55 Fentanyl Citrate 250 ml @ 5 mls/hr TITRATE PRN IV 01/12/18 11:00 01/12/18 11:13 Epoprostenol Sodium 50 ml/ Sodium Chloride 100 ml @ 5 mls/hr Q8H [facility] 01/12/18 12:00 01/12/18 19:59 01/12/18 12:06 Epoprostenol Sodium 37.5 ml/ Sodium Chloride 100 ml @ 5 mls/hr Q8H [facility] 01/12/18 20:00 01/13/18 03:59 Epoprostenol Sodium 25 ml/ Sodium Chloride 100 ml @ 5 mls/hr Q8H [facility] 01/13/18 04:00 01/13/18 11:59 Epoprostenol Sodium 12.5 ml/ Sodium Chloride 100 ml @ 5 mls/hr Q8H [facility] 01/13/18 12:00 01/13/18 19:59 Allergies Allergies Coded Allergies penicillin G (Unverified Allergy, Severe, Anaphylaxis, 01/08/18) promethazine (Unverified Adverse Reaction, Severe, NAUSEOUS, 01/08/18) Review of Systems All other ROS: ROS reviewed as documented in chart Exam I&O / VS 01/12/18 01/12/18 01/13/18 15:00 23:00 07:00 Intake Total 1088 ml 1403.2 ml Output Total 1550 ml Balance 1088 ml -146.8 ml IV Total 1088 ml 940.2 ml Tube Feeding 163 ml Other 300 ml Output Urine Total 1550 ml Vital Signs Date Time Temp Pulse Resp B/P (MAP) Pulse Ox O2 Delivery O2 Flow Rate FiO2 01/12/18 18:00 79 01/12/18 16:00 90 01/12/18 16:00 50 01/12/18 16:00 98.8 90 12 97/55 (69) 100 01/12/18 15:03 100 50 01/12/18 15:00 91 13 99/55 (70) 100 01/12/18 14:00 90 01/12/18 14:00 90 12 98/55 (69) 100 01/12/18 13:00 98 20 98/54 (69) 100 01/12/18 12:00 99.0 109 13 111/63 (79) 100 01/12/18 12:00 109 01/12/18 12:00 50 01/12/18 11:06 100 50 01/12/18 11:00 130 13 125/71 (89) 98 01/12/18 10:00 50 01/12/18 10:00 104 15 128/86 (100) 100 01/12/18 10:00 104 01/12/18 09:00 101 11 123/81 (95) 100 01/12/18 08:00 98.4 88 10 124/82 (96) 99 01/12/18 08:00 88 01/12/18 08:00 50 01/12/18 07:30 100 50 01/12/18 07:00 81 10 121/80 (94) 100 01/12/18 06:00 79 01/12/18 04:32 100 50 01/12/18 04:00 98.3 87 10 113/68 (83) 100 01/12/18 04:00 87 01/12/18 04:00 50 01/12/18 02:00 58 01/12/18 02:00 58 127/77 01/12/18 01:12 99 50 01/12/18 01:00 59 140/86 01/12/18 00:00 50 01/12/18 00:00 97.6 54 10 147/83 (104) 100 01/12/18 00:00 54 01/12/18 00:00 54 147/83 18 22:15 100 60 01/11/18 22:01 64 11 141/85 01/11/18 22:00 64 18 21:00 61 124/80 01/11/18 20:00 97.4 62 10 136/82 (100) 100 01/11/18 20:00 60 01/11/18 20:00 62 136/82 18 20:00 62 01/11/18 19:30 100 60 01/11/18 19:00 68 127/77 General: Alert and Oriented, No acute distress Eye: PERRL, EOMI, Normal conjuctiva Respiratory: Non-labored respirations, Symmetrical expansion Cardiology: Normal rate, Intact pulses, Regular Rhythm Musculoskeletal: ROM Neurologic: Alert, Oriented, Normal motor, CN II-XII intact, Normal DTR's Psychiatric: Cooperative, Appropriate mood & affect, Normal judgement Exam Comments alert CN--ptosis worse today, EOM intact MOTOR 3/5 BUE and BLE Objective Micro and Labs Laboratory Tests Test 01/11/18 21:12 01/12/18 10:30 Total Creatine Kinase 46 Troponin I 0.09 White Blood Count 15.5 Red Blood Count 3.66 Hemoglobin 9.4 Hematocrit 29.3 Mean Corpuscular Volume 80.1 Mean Corpuscular Hemoglobin 25.6 Mean Corpuscular Hemoglobin Concent 31.9 Red Cell Distribution Width 26.3 Platelet Count 338 Mean Platelet Volume 8.9 Neutrophils (%) (Auto) 97.3 Lymphocytes (%) (Auto) 1.2 Monocytes (%) (Auto) 1.4 Eosinophils (%) (Auto) 0.0 Basophils (%) (Auto) 0.1 Neutrophils # (Auto) 15.1 Lymphocytes # (Auto) 0.2 Monocytes # (Auto) 0.2 Eosinophils # (Auto) 0.0 Basophils # (Auto) 0.0 CBC Comment AUTO DIFF Differential Total Cells Counted 100 Neutrophils % (Manual) 84 Band Neutrophils % 9 Lymphocytes % 3 Monocytes % 4 Neutrophils # (Manual) 14.4 Differential Comment FINAL DIFF MANUAL Platelet Estimate NORMAL Platelet Morphology Comment ENLARGED Tear Drop Cells 1+ Ovalocytes 1+ Blood Urea Nitrogen 7 Creatinine 0.40 Random Glucose 117 Total Protein 7.7 Albumin 2.2 Calcium Level 8.6 Phosphorus Level 2.5 Magnesium Level 2.2 Alkaline Phosphatase 54 Aspartate Amino Transf (AST/SGOT) 9 Alanine Aminotransferase (ALT/SGPT) 11 Total Bilirubin 0.2 Sodium Level 146 Potassium Level 3.0 Chloride Level 114 Carbon Dioxide Level 25.0 Anion Gap 7 Estimat Glomerular Filtration Rate 176 Date/Time Source Procedure Growth Status 01/11/18 11:31 Blood Peripheral Aerobic Blood Culture - Preliminary NO GROWTH IN 1 DAY Resulted 01/11/18 11:31 Blood Peripheral Anaerobic Blood Culture - Preliminary NO GROWTH IN 1 DAY Resulted 01/12/18 14:00 Sputum Endotracheal Gram Stain Pending Received 01/12/18 14:00 Sputum Endotracheal Sputum Culture Pending Received 01/11/18 12:20 Urine Catheterized Urine Urine Culture - Preliminary NO GROWTH IN 24 HOURS. Resulted Leonardo De La Fuente MD PhD Jan 12, 2018 18:10
[2018-01-12] MEDS ORDERED: EPOPROSTENOL NEB SOLUTION 30 NG/KG/MIN 100 ML NEB SCH ×2 (20:00)
[2018-01-12] MEDS: IMMUNE GLOBULIN INJ 20 GM in SYRINGE/BAG 1 EA IV SCH (21:12)
[2018-01-13] VITALS (25 sets, daily range): BP systolic 88–108; BP diastolic 50–59; PULSE 49–78; RESP 12–17; TEMP 97.2–99; O2SAT 96–100
[2018-01-13] MEDS: ENOXAPARIN SODIUM 30 MG/0.3 ML SYRINGE SQ SCH ×2 (00:25→22:09)
[2018-01-13] MEDS: metroNIDAZOLE 500 MG INJ 100 ML IV SCH ×3 (00:25→17:04)
[2018-01-13] MEDS: methylPREDNISolone SOD SUCC 125 MG/2 ML VIAL IV PUSH SCH ×3 (00:25→17:03)
[2018-01-13] MEDS: SODIUM CHLOR 0.9% 1000 ML INJ 1,000 ML IV SCH ×3 (00:25→22:12)
[2018-01-13] MEDS: CHLORHEXIDINE GLUCONATE 2 % 1 PACK (2 CLOTHS) TOP SCH (04:00)
[2018-01-13] MEDS ORDERED: EPOPROSTENOL NEB SOLUTION 20 NG/KG/MIN 100 ML NEB SCH ×2 (04:00)
[2018-01-13] MEDS: PROPOFOL 1000 MG/100 ML INJ 100 ML IV PRN ×3 (04:08→22:12)
[2018-01-13] MEDS: AZTREONAM INJ 2,000 MG in SODIUM CHLORIDE 0.9% INJ 100 ML IV SCH ×3 (04:09→18:13)
[2018-01-13] MEDS: RESP: ALBUTEROL 2.5 MG/IPRATROPIUM 0.5 MG NEB (SCH) NEB ×6 (04:14→23:48)
[2018-01-13] MEDS: fentaNYL 2,500 MCG/NS 250 ML IV PRN ×2 (05:55→17:46)
--- NOTE | 2018-01-13 06:21 | RADRPT ---
EXAM DATE/TIME: 01/13/2018 04:01 [facility] COMPARISON: CHEST SINGLE AP, January 12, 2018, 10:40. INDICATIONS : Shortness of breath, possible pulmonary disease. MEDICAL HISTORY : Myasthenia gravis SURGICAL HISTORY : None. Thymectomy Infuse a port ENCOUNTER: Subsequent ACUITY: 4 - 6 days PAIN SCORE: Non-responsive. LOCATION: Bilateral chest FINDINGS: Endotracheal tube, nasogastric tube and chest port are stable. Right base infiltrate is unchanged. Le ft lung remains clear. Cardiac contours are stable. CONCLUSION: No significant change Kory Black MD on January 13, 2018 at 6:18 Board Certified Radiologist. This report was verified electronically.
[2018-01-13] MEDS: MIDAZOLAM 100 MG/100 ML INJ 100 ML IV PRN ×2 (07:17→22:11)
[2018-01-13] MEDS: PYRIDOSTIGMINE BROMIDE 60 MG TAB PO SCH ×3 (07:17→17:03)
[2018-01-13] MEDS: CHLORHEXIDINE 0.12% (ORAL KIT) 15 ML CUP MT SCH ×2 (07:17→22:07)
[2018-01-13 07:21] LABS: BASOPHIL % 0.2 % (0.0-2.0); HEMOGLOBIN 8.8 GM/DL (11.6-15.3); LYMPH % 2.6 % (9.0-44.0); LYMPHOCYTE # 0.2 TH/MM3 (1.0-4.8); MEAN CELL VOLUME 82.1 FL (80.0-100.0); MEAN CORPUSCULAR HEMOGLOBIN 26.8 PG (27.0-34.0); MEAN CORPUSCULAR HGB CONC 32.7 % (32.0-36.0); MEAN PLATELET VOLUME 9.8 FL (7.0-11.0); MONO % 3.3 % (0.0-8.0); MONOCYTE # 0.2 TH/MM3 (0-0.9); NEUT % 93.9 % (16.0-70.0); PLATELET COUNT 309 TH/MM3 (150-450); RED BLOOD COUNT 3.29 MIL/MM3 (4.00-5.30); WHITE BLOOD COUNT 6.4 TH/MM3 (4.0-11.0)
[2018-01-13] MEDS: RESP: BUDESONIDE 0.5 MG/2 ML NEB NEB SCH ×2 (07:41→19:24)
[2018-01-13 07:57] LABS: ALBUMIN 1.9 GM/DL (3.4-5.0); AST (GOT) 5 U/L (15-37); BICARBONATE 25.3 MEQ/L (21.0-32.0); BLOOD UREA NITROGEN 15 MG/DL (7-18); CALCIUM 8.1 MG/DL (8.5-10.1); CHLORIDE 116 MEQ/L (98-107); CREATININE 0.42 MG/DL (0.50-1.00); GLOMERULAR FILTRATION RATE 166 ML/MIN (>89); GLUCOSE,RANDOM 195 MG/DL (74-106); MAGNESIUM 2.4 MG/DL (1.5-2.5); SODIUM (NA) 144 MEQ/L (136-145)
[2018-01-13 07:58] LABS: ALT (GPT) 9 U/L (10-53); IRON (FE) 45 MCG/DL (50-170); PHOSPHORUS 2.2 MG/DL (2.5-4.9)
[2018-01-13 08:01] LABS: % SATURATION IRON PROFILE 26.8 % (20-50); ALKALINE PHOSPHATASE 39 U/L (45-117); FERRITIN 245 NG/ML (8-252); TOTAL BILIRUBIN ADULT LESS THAN 0.1 MG/DL (0.2-1.0); TOTAL IRON BINDING CAPACITY 168 MCG/DL (250-450); TOTAL PROTEIN 7.1 GM/DL (6.4-8.2)
[2018-01-13] MEDS ORDERED: ATROPINE SULFATE 1 MG/10 ML SYRINGE ONE (08:24)
--- NOTE | 2018-01-13 08:43 | PD.PROCEDR ---
Central Line Procedure REASON FOR PROCEDURE Central venous access PROCEDURE PERFORMED Central line placement: RIJ Vascath placement for plasma exchange CONSENT Informed consent for procedure was obtained. The risks and benefits of the procedure were discussed to include but limited to bleeding, clot formation, infection, and even . ANESTHESIA Local injection of 1% Lidocaine DESCRIPTION OF THE PROCEDURE The patient was placed in supine, mild Trendelenburg position. The area was exposed and cleansed with ChloraPrep, times two. Large sterile drape was used to cover the patient, with the site exposed, under sterile conditions including cap, face mask, sterile gown, and sterile gloves. On single attempt, the introducer needle was inserted with negative pressure in syringe and venous flash was obtained. The guide wire was then advanced without any restriction and the needle was removed. The dilator was used without any complications. Using Seldinger technique the 20CM 14 F double lumen vascular catheter was advanced over the guide wire to a depth of 17 centimeters. The guide wire was removed. All ports were aspirated with dark venous blood return and flushed easily with sterile saline. All ports were capped. Antibiotic disc was placed around central line at puncture site. The central line was secured to the skin with two interrupted 2.0 silk sutures. The area was bandaged with sterile see- through central line bandage. RADIOLOGICAL DATA Ultrasound guidance was used to locate RIJ. Doppler/color flow was used to confirm venous flow. COMPLICATIONS: No apparent complications ESTIMATED BLOOD LOSS: Less than 1 cc. Luda Horn MD Jan 13, 2018 08:43
--- NOTE | 2018-01-13 08:49 | HHI.CCPN ---
Subjective Remarks/Hospital Course 01/08: 42-year-old unfortunate female presenting to the emergency department for evaluation of altered mental status. This is her seventh admission within the last 5 months for the similar symptoms. Per EMS patient's ex- found her in bed yesterday, apparently at that time she was still verbal. When he returned home this afternoon she was not responding, stiff and moaning. H&P is limited due to patient's clinical condition. Her last admission was 2 weeks ago with a diagnosis of myasthenia gravis exacerbation. Per ED documentation report she has been sick with flulike symptoms all week including nausea and vomiting and diarrhea. She has been unable to keep down any of her medications. Every time she eats she has a bowel movement. Per ED reports she also intentionally overdosed with Midodrin. 01/09: Patient agitated and anxious this morning not verbalizing. Appeared to have some tachypnea and dyspnea. Patient became extremely anxious and agitated with heart rate going up to the 160s and blood pressure 170s systolic. She had dilated pupils bilaterally despite Ativan 2 mg IV given earlier to control anxiety, probably secondary to cocaine and amphetamines in her system as her tox screen came back positive for cocaine, amphetamines, barbiturates. Patient was emergently intubated using etomidate for sedation and placed on mechanical ventilation. No neuromuscular blockade was used during intubation in view of myasthenia gravis. Her heart rate came down to 150s following intubation. 1 L normal saline fluid bolus was ordered following which heart rate came down to 120s. 01/10: Resting comfortably on sedation, awake and alert, orally intubated on mechanical ventilation. On propofol Versed and fentanyl drips. Following commands appropriately, moving all 4 extremities. Denies any shortness of breath by shaking her head. 01/11: I was emergently called to the bedside today as patient was unresponsive with agonal breathing hardly 2-3 breaths per minute, and severe bradycardia, HR down to 25/mt, impending cardio pulmonary arrest. Epinephrine 1 mg IV push given stat, followed by one ampule of bicarb and 1 g of calcium chloride. Patient was intubated emergently without any medication as she was comatose. Apparently was hypoxic agitated requiring BiPAP but noncompliant. Received Ativan 2 mg at after midnight and also sent 1 dose of Xanax apparently for agitation 01/12: Remains intubated sedated but ventilator mechanics has improved. FiO2 down to 50%. On propofol and Versed gtt, but wide awake following commands. Off pressors. remains on full alignment 50,000 ng. Start weaning Flolan per protocol 01/13: Persistent muscular weakness due to myasthenia despite IVIG and steroids. Hematology consult to start plasma exchange alternate days 5. Vas-Cath placed. Continue to wean Flolan per protocol. Chest x-ray with persistent right lower lobe pneumonia Objective Vital Signs Date Time Temp Pulse Resp B/P (MAP) Pulse Ox O2 Delivery O2 Flow Rate FiO2 01/13/18 07:43 100 45 01/13/18 06:00 49 01/13/18 04:00 98.4 17 95/52 (66) 01/10/18 20:54 Nasal Cannula 2.00 Intake and Output 01/13/18 01/13/18 01/14/18 08:00 16:00 00:00 Intake Total 1693 ml Output Total 400 ml Balance 1293 ml Result Diagram: 01/13/18 0600 01/13/18 0600 Imaging Last 24 hours Impressions Chest X-Ray 01/08/18 0000 Signed Impressions: Service Date/Time: Monday, January 08, 2018 22:21 - CONCLUSION: No acute disease. Volodymyr Quinn MD Objective Remarks GEN: Remains intubated sedated with propofol, fentanyl and Versed infusions. Critically ill HEENT: Pupils 2 mm sluggish. Orotracheally intubated Neck: No JVD Chest/Pulm: Air entry diminished at the right base with coarse crackles. Remains on inhaled Flolan CVS: Tachycardic, off pressors no murmur. GI/abdomen: soft, nontender, bowel sounds sluggish NEURO: Pupils are reactive. On sedation patient eyes are spontaneously open. Follows 4. Muscle power 3-4/5 in all 4 extremities. Some ptosis persist Urinary Catheter: Yes Assessment to: Continue A/P Assessment and Plan Neuro: Altered mental status Severe encephalopathy Myasthenia gravis, with exacerbation -Start plasma exchange today, appreciate hematology input -Plan for 5 sessions of plasma exchange every alternate day -IVIG per neurology recommendation -Mycophenolate Mofetil -IV Solumedrol -Pyridostigmine Dixon -Further management per neurologist -Holding gabapentin for neuropathy -Holding sumatriptan for migraine -Propofol, Versed GTT for sedation. Add fentanyl infusion for pain control -History of polypharmacy, history of Xanax and opioid use -Drug screen positive for cocaine, barbiturates, amphetamines -Citalopram held in view of concern regarding overdose. -Psych has seen RESP: s/p Respiratory arrest Acute hypoxemic and hypercarbic respiratory failure Right lower lobe pneumonia/aspiration -Emergently intubated and placed on full mechanical ventilation PRVC mode -Most likely developed severe hypercapnia secondary to myasthenia exacerbation, benzodiazepine use -DuoNeb every 6 hours scheduled and as needed -On inhaled Flolan, wean per protocol -Ventilator bundle -f/u sputum culture, broad-spectrum antibiotics -start ventilator weaning Ledezma after completion of plasma exchange -Daily SBT without extubation CVS: Severe bradycardia most likely from severe respiratory acidosis Sinus tachycardia now -Severe bradycardia most likely secondary to severe acidosis -Received epinephrine bicarb and calcium -Slightly elevated troponin secondary to above -IV hydration, labetalol when necessary for hypertension, tachycardia. GI: -Famotidine -Tube feeds with Jevity -Bowel regimen /Endo: Hypokalemia Hypophosphatemia -Electrolytes replacement per ICU protocol -Strict intake output -Ledezma catheter Heme: Anemia -Continue Ferrous Sulfate ID: Right lower lobe pneumonia/aspiration Severe sepsis Continue Zosyn as patient has new RLL infiltrate. Received 1 dose of vancomycin. Follow-up lopez culture Stop Levaquin Nasal aspirate negative for influenza A and B neg. Urine for strep pneumo and Legionella antigen negative. History of C. difficile and recent diarrhea, will check stool for C. difficile though per nursing she has not had diarrhea since arrival to ICU. DVT GI prophylaxis -SCDs -Lovenox -Pepcid Critical Care: The total critical care time was 35 minutes excluding procedures. Time to perform other separately billable procedures was not included in the critical care time. Remains critically ill with persistent weakness from myasthenia, start plasma exchange therapy today. Remains in sepsis due to right lower lobe pneumonia. Oxygenation is improved, weaning Flolan inhaled per protocol Luda Horn MD Jan 13, 2018 08:49
[2018-01-13 08:51] LABS: ACANTHOCYTES OCC (NORMAL); OVALOCYTES 1+ (NORMAL)
[2018-01-13] MEDS: SODIUM CHLORIDE 0.9% FLUSH 10 ML FLUSH IV FLUSH SCH ×2 (09:00→22:07)
[2018-01-13] MEDS: BENEPROTEIN POWDER 1 PACK G-TUBE SCH ×3 (09:38→17:04)
[2018-01-13] MEDS: ASPIRIN 81 MG CHEW TAB CHEW SCH (09:38)
[2018-01-13] MEDS: LEVOFLOXACIN 500 MG PREMIX INJ 100 ML IV SCH (09:38)
[2018-01-13] MEDS: LACTOBACILLUS ACIDOPHILUS TAB PO SCH (09:39)
[2018-01-13] MEDS: MYCOPHENOLATE MOFETIL 200 MG/ML 175 ML BOTTLE PO SCH ×2 (09:39→22:07)
[2018-01-13] MEDS: INSULIN ASPART SUPPLEMENTAL SCALE SQ SCH ×4 (09:39→22:09)
[2018-01-13] MEDS: DOCUSATE SODIUM 50 MG/SENNA 8.6 MG TAB PO SCH ×2 (09:39→21:00)
[2018-01-13] MEDS: FAMOTIDINE 20 MG TAB PO SCH (09:39)
--- NOTE | 2018-01-13 09:50 | RADRPT ---
EXAM DATE/TIME: 01/13/2018 08:50 [facility] COMPARISON: CHEST SINGLE AP, January 13, 2018, 4:01. INDICATIONS : Central line placement. MEDICAL HISTORY : myasthenia gravis, migraines, anemia, depression, C-diff SURGICAL HISTORY : thymus removed, left chest port, blood transfusions ENCOUNTER: Subsequent ACUITY: 1 week PAIN SCORE: Non-responsive. LOCATION: Bilateral chest FINDINGS: Interval placement of right internal jugular multilumen catheter with tip projected in the right atri um. ET, left subclavian, and gastric tubes are stable. There is stable lobar consolidation in the r ight lower lung with loss of delineation of the entire right hemidiaphragm. The left lung is clear. No evidence of. CONCLUSION: Right IJ catheter tip in the right atrium. No evidence of pneumothorax. Stable right lower lobe co nsolidation. Pilo Walker MD on January 13, 2018 at 9:47 Board Certified Radiologist. This report was verified electronically.
[2018-01-13] MEDS ORDERED: HEPARIN SODIUM - IV 10,000 UNITS/10 ML VIAL ONE (10:36)
[2018-01-13] MEDS ORDERED: Hemodialysis Vas Access Cath PRN NS Lock Flush IV FLUSH (11:15)
[2018-01-13] MEDS ORDERED: HEPARIN SODIUM - 10,000 UNITS/ML 1ML VIAL IV FLUSH PRN (11:15)
[2018-01-13] MEDS ORDERED: diphenhydrAMINE HCL 50 MG/ML VIAL IV PUSH PRN (11:15)
[2018-01-13] MEDS ORDERED: HEPARIN SODIUM - 1000 UNITS/ML 10 ML VIAL IV FLUSH PRN (11:15)
[2018-01-13] MEDS ORDERED: SODIUM CHLOR 0.9% 1000 ML IV SCH (11:15)
[2018-01-13] MEDS ORDERED: Hemodialysis Vas Acc Cath PRN Heparin 1000 unit/ml Flush IV FLUSH (11:15)
[2018-01-13] MEDS: FERROUS SULFATE 325 MG (65 MG ELEMENTAL IRON) TAB PO SCH ×2 (11:15→17:03)
[2018-01-13] MEDS ORDERED: SODIUM CHLORIDE 0.9% 10 ML FLUSH IV FLUSH PRN (11:15)
[2018-01-13] MEDS ORDERED: EPOPROSTENOL NEB SOLUTION 10 NG/KG/MIN 100 ML NEB SCH ×2 (12:00)
[2018-01-13] MEDS: ANTICOAGULANT CITRATE DEXTROSE SOLN-A 1L OTHER SCH (13:00)
[2018-01-13] MEDS: POTASSIUM PHOSPHATE MONOBASIC 500 MG TAB PO PRN ×2 (14:28→22:10)
[2018-01-13] MEDS ORDERED: Vancomycin Consult Pharmacy 1 EA OTHER SCH (14:30)
[2018-01-13] MEDS ORDERED: VANCOMYCIN INJ 1,250 MG in SODIUM CHLOR 0.9% 250 ML INJ 250 ML IV ONE (16:00)
--- NOTE | 2018-01-13 18:10 | PD.CONS ---
History of Present Illness Service Hematology/Oncology Consult Requested By Reason for Consult 1. Myasthenia gravis. 2. Myasthenia gravis exacerbation. 3. Administration of therapeutic plasmapheresis. Primary Care Physician Non-Staff Diagnoses: History of Present Illness Patient seen at bedside on 01/13/2016 in the early afternoon and note dictated. Unfortunately transcribed note not appearing under correct visit. Note for original consult from 01/12/2015 below. Ms. Rodríguez is a 42-year-old lady who was admitted to the hospital on 01/08/2018 with altered mental status. She has been hospitalized multiple times during the past 5 months for similar symptoms. At admission, family reported that she was not responding, stiff and moaning. She had been sick with flu-like symptoms all week leading up to her hospitalization. These flu-like symptoms included nausea, vomiting and diarrhea. She had been unable to keep down any of her medications. She was noted to be agitated and extremely anxious and was intubated on 01/09/2018. She was extubated and was found to be agonally breathing with severe bradycardia and impending cardiopulmonary arrest. She was intubated emergently on 01/11 and she remains intubated today. She is awake and alert. She follows commands on exam. During her hospital stay, the Neurology team led by Dr. De La Fuente has been following her. She has received high doses of IVIg. She has also received other myasthenia medications including CellCept and Mestinon. She is also being treated with broad spectrum antibiotics for right lower lobe pneumonia and sepsis. White blood cell count 15.5, hemoglobin 9.4, platelet count is 338,000. Differential with elevated absolute neutrophil count, low absolute lymphocyte count, bandemia present with left shift including early cells. Chemistry studies with sodium of 146, potassium 3.0, chloride 114, bicarbonate of 25, creatinine 0.4, total bilirubin 0.2, AST 9, ALT 11, alkaline phosphatase 54, total protein 7.7, albumin is 2.2. Coags with a PT of 11.7, an INR of 1.2 and an APTT of 29.4. Review of Systems ROS Limitations: Clinical Condition, Intubated Past Family Social History Allergies: Coded Allergies: penicillin G (Unverified Allergy, Severe, Anaphylaxis, 01/08/18) promethazine (Unverified Adverse Reaction, Severe, NAUSEOUS, 01/08/18) Past Medical History Myasthenia gravis, avascular necrosis of the right hip, depression. Past Surgical History Status post surgical removal of the thymus, bilateral tubal ligation, left chest port placement, tonsillectomy. Active Ordered Medications HOSPITAL MEDICATIONS: Include: 1. DuoNeb. 2. Baby aspirin. 3. Aztreonam. 4. Budesonide. 5. Celexa. 6. Epoprostenol. 7. Fentanyl. 8. Famotidine. 9. Ferrous sulfate. 10. IVIg. 11. Lactulose. 12. Levaquin. 13. Magnesium sulfate. 14. Solu-Medrol. 15. Flagyl. 16. Versed. 17. CellCept. Family History Unable to obtain due to mental status. Social History The patient is a former smoker. No tobacco or alcohol use. Toxicology screen on admission was positive for barbiturates, amphetamines and cocaine. Physical Exam Vital Signs Vital Signs Date Time Temp Pulse Resp B/P (MAP) Pulse Ox O2 Delivery O2 Flow Rate FiO2 01/13/18 14:45 100 45 01/13/18 14:00 55 01/13/18 12:00 45 01/13/18 12:00 98.3 52 12 92/52 (65) 100 01/13/18 12:00 52 01/13/18 11:39 100 45 01/13/18 11:00 55 12 102/59 (73) 100 01/13/18 10:00 75 12 88/51 (63) 100 01/13/18 10:00 75 01/13/18 09:00 78 12 108/56 (73) 98 01/13/18 08:00 52 01/13/18 08:00 45 01/13/18 08:00 98.0 52 12 89/50 (63) 100 01/13/18 07:43 100 45 01/13/18 07:00 50 12 96/59 (71) 100 01/13/18 06:00 49 01/13/18 04:15 96 50 01/13/18 04:00 50 01/13/18 04:00 77 01/13/18 04:00 98.4 77 17 95/52 (66) 96 01/13/18 02:00 52 01/13/18 00:01 100 50 01/13/18 00:00 50 01/13/18 00:00 97.2 54 12 93/59 (70) 100 01/13/18 00:00 55 01/13/18 00:00 54 12 93/59 01/12/18 22:00 60 01/12/18 22:00 60 12 99/58 01/12/18 21:12 68 12 95/54 01/12/18 20:17 100 50 01/12/18 20:00 65 01/12/18 20:00 50 01/12/18 20:00 97.4 65 12 101/59 (73) 100 Physical Exam VITAL SIGNS: Temperature 98.8, pulse 90, blood pressure 97/55, pulse oximetry 100% on FIO2 of 50. GENERAL: Thin lady in no distress. NECK: Supple. No palpable lymphadenopathy. ENT: Orally intubated. ABDOMEN: Soft, nontender, nondistended with bowel sounds present. EXTREMITIES: No edema. NEUROLOGIC: Grossly nonfocal. PSYCHIATRIC: Alert and oriented, follows commands, frustrated with inability to communicate. SKIN: No rashes, ecchymoses or lesions. HEAD: Atraumatic. Normocephalic. No temporal or scalp tenderness. CARDIOVASCULAR: Regular rate and rhythm without murmurs, gallops, or rubs. RESPIRATORY: Clear to auscultation. Breath sounds equal bilaterally. No wheezes , rales, or rhonchi. Laboratory Laboratory Tests Test 01/12/18 21:27 01/13/18 06:00 01/13/18 09:50 Blood Smear Pathologist Review Potassium Level 3.8 3.5 White Blood Count 6.4 Red Blood Count 3.29 Hemoglobin 8.8 Hematocrit 27.0 Mean Corpuscular Volume 82.1 Mean Corpuscular Hemoglobin 26.8 Mean Corpuscular Hemoglobin Concent 32.7 Red Cell Distribution Width 27.0 Platelet Count 309 Mean Platelet Volume 9.8 Neutrophils (%) (Auto) 93.9 Lymphocytes (%) (Auto) 2.6 Monocytes (%) (Auto) 3.3 Eosinophils (%) (Auto) 0.0 Basophils (%) (Auto) 0.2 Neutrophils # (Auto) 6.0 Lymphocytes # (Auto) 0.2 Monocytes # (Auto) 0.2 Eosinophils # (Auto) 0.0 Basophils # (Auto) 0.0 CBC Comment AUTO DIFF Differential Comment AUTO DIFF CONFIRMED Platelet Estimate NORMAL Platelet Morphology Comment NORMAL Ovalocytes 1+ Acanthocytes OCC Haptoglobin 286 Prothrombin Time 10.0 Prothromb Time International Ratio 1.0 Activated Partial Thromboplast Time 31.9 Fibrinogen 429 Blood Urea Nitrogen 15 Creatinine 0.42 Random Glucose 195 Total Protein 7.1 Albumin 1.9 Calcium Level 8.1 Phosphorus Level 2.2 Magnesium Level 2.4 Alkaline Phosphatase 39 Aspartate Amino Transf (AST/SGOT) 5 Alanine Aminotransferase (ALT/SGPT) 9 Lactate Dehydrogenase 91 Total Bilirubin LESS THAN 0.1 Sodium Level 144 Chloride Level 116 Carbon Dioxide Level 25.3 Anion Gap 3 Estimat Glomerular Filtration Rate 166 Iron Level 45 Total Iron Binding Capacity 168 Percent Iron Saturation 26.8 Ferritin 245 Stool C. difficile Toxin (PCR) POSITIVE Stl C. difficile Toxin Epiderm 027 PRESUMPTIVE NEGATIVE Date/Time Source Procedure Growth Status 01/11/18 11:31 Blood Peripheral Aerobic Blood Culture - Preliminary NO GROWTH IN 2 DAYS Resulted 01/11/18 11:31 Blood Peripheral Anaerobic Blood Culture - Preliminary NO GROWTH IN 2 DAYS Resulted 01/12/18 14:00 Sputum Endotracheal Gram Stain - Final Resulted 01/12/18 14:00 Sputum Culture - Preliminary S. Aureus Mrsa Resulted 01/11/18 12:20 Urine Catheterized Urine Urine Culture - Final NO GROWTH IN 48 HOURS. Complete Result Diagram: 01/13/18 0600 01/13/18 0600 Assessment and Plan Assessment and Plan 1. Myasthenia gravis, admitted with exacerbation. This is her fifth admission for exacerbation over the past several months. She has been treated with IVIg as well as CellCept and Mestinon and unfortunately has not responded. Discussed case with critical care attending, Dr. Horn and Neurology attending, Dr. De La Fuente. We will plan to initiate therapeutic plasmapheresis at 1:1 volume with normal saline and 5% albumin. We will plan to initiate this tomorrow. Dr. Horn will place a Ephraim catheter tomorrow morning. 2. Anemia, likely reactive with acute hospital stay. 3. Leukocytosis, elevated, likely reactive due to being on steroids and infection. Continue to monitor. Tammy Jose MD Jan 13, 2018 18:10
[2018-01-13] MEDS: VANCOMYCIN 500 MG VIAL (FOR ORAL USE ONLY) PO SCH ×2 (18:12→22:08)
--- NOTE | 2018-01-13 19:01 | PD.ONC.PN ---
Subjective Subjective Remarks Intubated and sedated. Objective Data Date Time Temp Pulse Resp B/P (MAP) Pulse Ox O2 Delivery O2 Flow Rate FiO2 01/13/18 18:00 66 12 100/57 (71) 100 01/13/18 18:00 66 01/13/18 17:00 72 12 99/54 (69) 100 01/13/18 16:00 45 01/13/18 16:00 99.0 65 12 93/51 (65) 100 01/13/18 16:00 65 01/13/18 15:00 59 12 96/55 (69) 100 01/13/18 14:45 100 45 01/13/18 14:00 55 12 100/55 (70) 100 01/13/18 14:00 55 01/13/18 13:00 63 12 93/52 (66) 100 01/13/18 12:00 45 01/13/18 12:00 98.3 52 12 92/52 (65) 100 01/13/18 12:00 52 01/13/18 11:39 100 45 01/13/18 11:00 55 12 102/59 (73) 100 01/13/18 10:00 75 12 88/51 (63) 100 01/13/18 10:00 75 01/13/18 09:00 78 12 108/56 (73) 98 01/13/18 08:00 52 01/13/18 08:00 45 01/13/18 08:00 98.0 52 12 89/50 (63) 100 01/13/18 07:43 100 45 01/13/18 07:00 50 12 96/59 (71) 100 01/13/18 06:00 49 01/13/18 04:15 96 50 01/13/18 04:00 50 01/13/18 04:00 77 01/13/18 04:00 98.4 77 17 95/52 (66) 96 01/13/18 02:00 52 01/13/18 00:01 100 50 01/13/18 00:00 50 01/13/18 00:00 97.2 54 12 93/59 (70) 100 01/13/18 00:00 55 01/13/18 00:00 54 12 93/59 01/12/18 22:00 60 01/12/18 22:00 60 12 99/58 01/12/18 21:12 68 12 95/54 01/12/18 20:17 100 50 01/12/18 20:00 65 01/12/18 20:00 50 01/12/18 20:00 97.4 65 12 101/59 (73) 100 01/13/18 01/13/18 01/13/18 07:00 15:00 23:00 Intake Total 2664 ml 999 ml 1174 ml Output Total 400 ml 750 ml Balance 2264 ml 999 ml 424 ml Result Diagram: 01/13/18 0600 01/13/18 06 Laboratory Results Laboratory Tests Test 01/12/18 21:27 01/13/18 06:00 01/13/18 09:50 Blood Smear Pathologist Review Potassium Level 3.8 MEQ/L 3.5 MEQ/L White Blood Count 6.4 TH/MM3 Red Blood Count 3.29 MIL/MM3 Hemoglobin 8.8 GM/DL Hematocrit 27.0 % Mean Corpuscular Volume 82.1 FL Mean Corpuscular Hemoglobin 26.8 PG Mean Corpuscular Hemoglobin Concent 32.7 % Red Cell Distribution Width 27.0 % Platelet Count 309 TH/MM3 Mean Platelet Volume 9.8 FL Neutrophils (%) (Auto) 93.9 % Lymphocytes (%) (Auto) 2.6 % Monocytes (%) (Auto) 3.3 % Eosinophils (%) (Auto) 0.0 % Basophils (%) (Auto) 0.2 % Neutrophils # (Auto) 6.0 TH/MM3 Lymphocytes # (Auto) 0.2 TH/MM3 Monocytes # (Auto) 0.2 TH/MM3 Eosinophils # (Auto) 0.0 TH/MM3 Basophils # (Auto) 0.0 TH/MM3 CBC Comment AUTO DIFF Differential Comment AUTO DIFF CONFIRMED Platelet Estimate NORMAL Platelet Morphology Comment NORMAL Ovalocytes 1+ Acanthocytes OCC Haptoglobin 286 MG/DL Prothrombin Time 10.0 SEC Prothromb Time International Ratio 1.0 RATIO Activated Partial Thromboplast Time 31.9 SEC Fibrinogen 429 mg/dL Blood Urea Nitrogen 15 MG/DL Creatinine 0.42 MG/DL Random Glucose 195 MG/DL Total Protein 7.1 GM/DL Albumin 1.9 GM/DL Calcium Level 8.1 MG/DL Phosphorus Level 2.2 MG/DL Magnesium Level 2.4 MG/DL Alkaline Phosphatase 39 U/L Aspartate Amino Transf (AST/SGOT) 5 U/L Alanine Aminotransferase (ALT/SGPT) 9 U/L Lactate Dehydrogenase 91 U/L Total Bilirubin LESS THAN 0.1 MG/DL Sodium Level 144 MEQ/L Chloride Level 116 MEQ/L Carbon Dioxide Level 25.3 MEQ/L Anion Gap 3 MEQ/L Estimat Glomerular Filtration Rate 166 ML/MIN Iron Level 45 MCG/DL Total Iron Binding Capacity 168 MCG/DL Percent Iron Saturation 26.8 % Ferritin 245 NG/ML Stool C. difficile Toxin (PCR) POSITIVE Stl C. difficile Toxin Epiderm 027 PRESUMPTIVE NEGATIVE Culture Results Microbiology Date/Time Source Procedure Growth Status 01/11/18 11:31 Blood Peripheral Aerobic Blood Culture - Preliminary NO GROWTH IN 2 DAYS Resulted 01/11/18 11:31 Blood Peripheral Anaerobic Blood Culture - Preliminary NO GROWTH IN 2 DAYS Resulted 01/11/18 11:25 Blood Peripheral Aerobic Blood Culture - Preliminary NO GROWTH IN 2 DAYS Resulted 01/11/18 11:25 Blood Peripheral Anaerobic Blood Culture - Preliminary NO GROWTH IN 2 DAYS Resulted 01/13/18 17:15 Stool Stool Stool Occult Blood (MANUELITO) Pending Received 01/12/18 14:00 Sputum Endotracheal Gram Stain - Final Resulted 01/12/18 14:00 Sputum Culture - Preliminary S. Aureus Mrsa Resulted 01/11/18 12:20 Urine Catheterized Urine Urine Culture - Final NO GROWTH IN 48 HOURS. Complete Imaging Studies Last 24 hours Impressions Chest X-Ray 01/13/18 0600 Signed Impressions: Service Date/Time: January 04:01 - CONCLUSION: No significant change Kory Black MD Chest X-Ray 01/13/18 0000 Signed Impressions: Service Date/Time: January 08:50 - CONCLUSION: Right IJ catheter tip in the right atrium. No evidence of pneumothorax. Stable right lower lobe consolidation. Pilo Walker MD Administered Medications Medications (Trade) Dose Ordered Sig/Gómez Route PRN Reason Start Time Stop Time Status Last Admin Dose Admin Aspirin (Aspirin Chew) 81 mg DAILY CHEW 01/09/18 09:00 01/13/18 09:38 Ferrous Sulfate (Ferrous Sulfate) 325 mg BID@12,17 PO 01/09/18 12:00 01/13/18 17:03 Prednisone (Deltasone) 5 mg DAILY PO 01/09/18 09:00 Future Hold 01/10/18 08:20 Pyridostigmine Byers (Mestinon) 120 mg TIDAC PO 01/09/18 08:00 01/13/18 17:03 Lactobacillus Acidophilus (Lactinex) 1 tab DAILY PO 01/09/18 09:00 01/13/18 09:39 Acetaminophen/ Butalbital/ Caffeine (Fioricet 325-50-40) 1 tab Q6H PRN PO HEADACHE 01/08/18 23:15 01/11/18 05:50 Sodium Chloride 1,000 ml @ 84 mls/hr [id number] IV 01/08/18 23:20 01/13/18 10:41 Sodium Chloride (NS Flush) 2 ml UNSCH PRN IV FLUSH FLUSH AFTER USING IV ACCESS 01/08/18 23:30 01/12/18 08:13 Sodium Chloride (NS Flush) 2 ml BID IV FLUSH 01/09/18 09:00 01/13/18 09:00 Acetaminophen (Tylenol) 650 mg Q6H PRN PO FEVER >101F 01/08/18 23:30 01/09/18 14:58 Famotidine (Pepcid) 20 mg DAILY PO 01/09/18 09:00 01/13/18 09:39 Ondansetron HCl (Zofran Inj) 4 mg Q6H PRN IV PUSH NAUSEA OR VOMITING 01/08/18 23:30 01/10/18 13:09 Albuterol/ Ipratropium (Duoneb Neb) 1 ampule Q2HR NEB PRN INH WHEEZING 01/08/18 23:30 01/09/18 06:48 Enoxaparin Sodium (Lovenox Inj) 30 mg Q24H SQ 01/08/18 23:30 01/13/18 00:25 Miscellaneous Information 1 Q361D XX 01/08/18 23:30 01/08/18 23:30 Chlorhexidine Gluconate (Chlorhexidine 2% Cloth) 3 pack Taper DAILY@04 TOP 01/09/18 04:00 01/05/19 03:59 01/13/18 04:00 Senna/Docusate Sodium (Bonita-Colace) 1 tab BID PO 01/09/18 09:00 01/13/18 09:39 Magnesium Hydroxide (Milk Of Magnesia Liq) 30 ml Q12H PRN PO Mild constipation 01/08/18 23:30 01/10/18 17:53 Potassium Chloride 100 ml @ 50 mls/hr Q2H PRN IV For Potassium 2.8 - 3.2 mEq/L 01/09/18 00:00 01/12/18 14:21 Potassium Chloride 100 ml @ 25 mls/hr UNSCH PRN IV For Potassium 3.3 - 3.5 mEq/L 01/09/18 00:00 01/10/18 08:19 Potassium Phosphate (K-Phos) 2,000 mg Q4H PRN PO For Phosphorus < 2.5 mg/dL 01/09/18 00:00 01/13/18 14:28 Sumatriptan Succinate (Imitrex Inj) 6 mg Q12H PRN SQ HEADACHE/ MIGRAINE 01/09/18 03:45 01/10/18 23:49 Chlorhexidine Gluconate (Peridex 0.12% Liq) 15 ml BID@08,20 MT 01/09/18 08:00 01/13/18 07:17 Propofol 100 ml @ 1.56 mls/hr TITRATE PRN IV SEDATION 01/09/18 08:00 01/13/18 14:11 Labetalol HCl (Trandate Inj) 10 mg Q2HR PRN IV PUSH SBP greater than 160mm Hg 01/09/18 08:00 01/10/18 21:23 Lorazepam (Ativan Inj) 2 mg Q4H PRN IV PUSH agitation 01/09/18 08:30 01/11/18 05:50 Levofloxacin/ Dextrose 100 ml @ 100 mls/hr Q24H IV 01/09/18 09:00 01/13/18 09:38 Fentanyl Citrate (fentaNYL INJ) 100 mcg Q4H PRN IV PAIN SCALE 1-10 01/09/18 16:15 01/09/18 20:21 Oxycodone/ Acetaminophen (Percocet 10-325 Mg) 1 tab Q6H PRN PO PAIN WHEN TOLERATING PO MEDS 01/10/18 14:00 01/10/18 21:14 Methylprednisolone Sodium Succinate (SoluMEDROL INJ) 40 mg Q8H IV PUSH 01/11/18 09:00 01/13/18 17:03 Budesonide (Pulmicort Respule Neb) 0.5 mg Q12HR NEB NEB 01/11/18 08:45 01/13/18 07:41 Aztreonam 2000 mg/ Sodium Chloride 100 ml @ 200 mls/hr Q8H IV 01/11/18 11:00 01/13/18 18:13 Metronidazole 100 ml @ 100 mls/hr Q8H IV 01/11/18 10:00 01/13/18 17:04 Albuterol/ Ipratropium (Duoneb Neb) 1 ampule Q4HR NEB NEB 01/11/18 12:00 01/13/18 14:45 Midazolam HCl 100 ml @ 2 mls/hr TITRATE PRN IV SEDATION 01/11/18 17:30 01/13/18 07:17 Norepinephrine Bitartrate 250 ml @ 7.5 mls/hr TITRATE PRN IV Maintain MAP > 65 mmHg 01/11/18 18:15 01/11/18 09:30 Mycophenolate Mofetil (Cellcept Liq) 500 mg BID PO 01/11/18 21:00 01/13/18 09:39 Protein (Beneprotein Powder) 1 pack TID G-TUBE 01/12/18 13:00 01/13/18 17:04 Fentanyl Citrate 250 ml @ 5 mls/hr TITRATE PRN IV Sedation 01/12/18 11:00 01/13/18 17:46 Epoprostenol Sodium 12.5 ml/ Sodium Chloride 100 ml @ 5 mls/hr Q8H NEB 01/13/18 12:00 01/13/18 19:59 01/13/18 11:15 Insulin Aspart (NovoLOG SUPPLEMENTAL SCALE) 1 Q4H SQ 01/13/18 09:00 01/13/18 17:04 Vancomycin HCl (VANCOMYCIN for oral use only) 250 mg QID PO 01/13/18 18:00 01/13/18 18:12 Objective Remarks GENERAL: Well-nourished, well-developed patient. SKIN: Warm and dry. HEAD: Normocephalic. EYES: No scleral icterus. No injection or drainage. NECK: Supple, trachea midline. No JVD or lymphadenopathy. LYMPHATIC: No adenopathy. CARDIOVASCULAR: Regular rate and rhythm without murmurs. RESPIRATORY: Breath sounds equal bilaterally. No accessory muscle use. GASTROINTESTINAL: Abdomen soft, non-tender, nondistended. EXTREMITIES: No cyanosis, or edema. MUSCULOSKELETAL: Adequate muscle tone. NEUROLOGICAL: No obvious focal deficit. Awake, alert, and oriented x3. PSYCHIATRIC: Appropriate mood and affect; insight and judgment normal. Assessment/Plan Assessment 1. Myastenia gravis exacerbation: CellCept, IVIG with no improvement in symptoms. Initiated plasmapheresis on 01/13/2017. Will plan for 5 total sessions of pheresis. Case discussed with ICU attending and neurology attending. Mother is next of kin and healthcare surrogate. Discussed risks vs benefits of pheresis. Discussed side effects of this therapy including but not limited to electrolyte disturbance, bleeding, hypotension. Mother expressed understanding. She reports that her daughter has had plasmaphersis performed several years ago with good response. 2. Respiratory failure: MRSA pneumonia as well as MG contributing. 3. MRSA pneumonia: on antibiotic therapy 4. Cdiff colitis: on antibiotic therapy Tammy Jose MD Jan 13, 2018 19:01
--- NOTE | 2018-01-13 19:16 | HHI.PR ---
Review/Management Diagnosis myasthenia gravis---- depression Plan continue plasmapheresis for total of 5 Diagnosis/Plan: Subjective Subjective Comments No acute events reported tolerated first plasmapheresis today Active Medications Current Medications Medications (Trade) Dose Ordered Sig/Gómez Route Start Time Stop Time Status Last Admin (Aspirin Chew) 81 mg DAILY CHEW 01/09/18 09:00 01/13/18 09:38 (CeleXA) 40 mg DAILY PO 01/09/18 09:00 Future Hold (Ferrous Sulfate) 325 mg BID@12,17 PO 01/09/18 12:00 01/13/18 17:03 (Neurontin) 300 mg Q8H PO 01/08/18 23:15 Future Hold (Deltasone) 5 mg DAILY PO 01/09/18 09:00 Future Hold 01/10/18 08:20 (Mestinon) 120 mg TIDAC PO 01/09/18 08:00 01/13/18 17:03 (Lactinex) 1 tab DAILY PO 01/09/18 09:00 01/13/18 09:39 (Fioricet 325-50-40) 1 tab Q6H PRN PO 01/08/18 23:15 01/11/18 05:50 Sodium Chloride 1,000 ml @ 84 mls/hr [id number] IV 01/08/18 23:20 01/13/18 10:41 (NS Flush) 2 ml UNSCH PRN IV FLUSH 01/08/18 23:30 01/12/18 08:13 (NS Flush) 2 ml BID IV FLUSH 01/09/18 09:00 01/13/18 09:00 (Tylenol) 650 mg Q6H PRN PO 01/08/18 23:30 01/09/18 14:58 (Pepcid) 20 mg DAILY PO 01/09/18 09:00 01/13/18 09:39 (Zofran Inj) 4 mg Q6H PRN IV PUSH 01/08/18 23:30 01/10/18 13:09 (Duoneb Neb) 1 ampule Q2HR NEB PRN INH 01/08/18 23:30 01/09/18 06:48 (Lovenox Inj) 30 mg Q24H SQ 01/08/18 23:30 01/13/18 00:25 Miscellaneous Information 1 Q361D XX 01/08/18 23:30 01/08/18 23:30 (Chlorhexidine 2% Cloth) 3 pack Taper DAILY@04 TOP 01/09/18 04:00 01/05/19 03:59 01/13/18 04:00 (Chlorhexidine 2% Cloth) 3 pack UNSCH PRN TOP 01/08/18 23:30 (Bonita-Colace) 1 tab BID PO 01/09/18 09:00 01/13/18 09:39 (Milk Of Magnesia Liq) 30 ml Q12H PRN PO 01/08/18 23:30 01/10/18 17:53 (Senokot) 17.2 mg Q12H PRN PO 01/08/18 23:30 (Dulcolax Supp) 10 mg DAILY PRN RECTAL 01/08/18 23:30 (Lactulose Liq) 30 ml DAILY PRN PO 01/08/18 23:30 Potassium Chloride 100 ml @ 50 mls/hr Q2H PRN IV 01/09/18 00:00 01/12/18 14:21 Potassium Chloride 100 ml @ 50 mls/hr Q2H PRN IV 01/09/18 00:00 (K-Lyte Cl Eff) 50 meq UNSCH PRN PO 01/09/18 00:00 Potassium Chloride 100 ml @ 25 mls/hr UNSCH PRN IV 01/09/18 00:00 01/10/18 08:19 Potassium Chloride 100 ml @ 50 mls/hr Q2H PRN IV 01/09/18 00:00 Magnesium Sulfate 4 gm/Sodium Chloride 100 ml @ 50 mls/hr UNSCH PRN IV 01/09/18 00:00 (Mag-Ox) 800 mg UNSCH PRN PO 01/09/18 00:00 Magnesium Sulfate 2 gm/Sodium Chloride 100 ml @ 50 mls/hr UNSCH PRN IV 01/09/18 00:00 (K-Phos) 2,000 mg Q4H PRN PO 01/09/18 00:00 01/13/18 14:28 Sodium Phosphate 30 mmol/Sodium Chloride 250 ml @ 42 mls/hr UNSCH PRN IV 01/09/18 00:00 (K-Phos) 2,000 mg UNSCH PRN PO/TUBE 01/09/18 00:00 Potassium Phosphate 30 mmol/ Sodium Chloride 260 ml @ 42 mls/hr UNSCH PRN IV 01/09/18 00:00 (Imitrex Inj) 6 mg Q12H PRN SQ 01/09/18 03:45 01/10/18 23:49 (Peridex 0.12% Liq) 15 ml BID@08,20 MT 01/09/18 08:00 01/13/18 07:17 Propofol 100 ml @ 1.56 mls/hr TITRATE PRN IV 01/09/18 08:00 01/13/18 14:11 (Trandate Inj) 10 mg Q2HR PRN IV PUSH 01/09/18 08:00 01/10/18 21:23 (Ativan Inj) 2 mg Q4H PRN IV PUSH 01/09/18 08:30 01/11/18 05:50 Levofloxacin/ Dextrose 100 ml @ 100 mls/hr Q24H IV 01/09/18 09:00 01/13/18 09:38 (fentaNYL INJ) 100 mcg Q4H PRN IV 01/09/18 16:15 01/09/18 20:21 (Percocet 10-325 Mg) 1 tab Q6H PRN PO 01/10/18 14:00 01/10/18 21:14 (SoluMEDROL INJ) 40 mg Q8H IV PUSH 01/11/18 09:00 01/13/18 17:03 (Pulmicort Respule Neb) 0.5 mg Q12HR NEB NEB 01/11/18 08:45 01/13/18 07:41 Aztreonam 2000 mg/ Sodium Chloride 100 ml @ 200 mls/hr Q8H IV 01/11/18 11:00 01/13/18 18:13 Metronidazole 100 ml @ 100 mls/hr Q8H IV 01/11/18 10:00 01/13/18 17:04 (Duoneb Neb) 1 ampule Q4HR NEB NEB 01/11/18 12:00 01/13/18 14:45 Midazolam HCl 100 ml @ 2 mls/hr TITRATE PRN IV 01/11/18 17:30 01/13/18 07:17 Norepinephrine Bitartrate 250 ml @ 7.5 mls/hr TITRATE PRN IV 01/11/18 18:15 01/11/18 09:30 (Cellcept Liq) 500 mg BID PO 01/11/18 21:00 01/13/18 09:39 (Beneprotein Powder) 1 pack TID G-TUBE 01/12/18 13:00 01/13/18 17:04 Fentanyl Citrate 250 ml @ 5 mls/hr TITRATE PRN IV 01/12/18 11:00 01/13/18 17:46 Epoprostenol Sodium 12.5 ml/ Sodium Chloride 100 ml @ 5 mls/hr Q8H NEB 01/13/18 12:00 01/13/18 19:59 01/13/18 11:15 (NovoLOG SUPPLEMENTAL SCALE) 1 Q4H SQ 01/13/18 09:00 01/13/18 17:04 (NS Flush) 5 ml UNSCH PRN IV FLUSH 01/13/18 11:15 (Heparin Inj) 2,000 units UNSCH PRN IV FLUSH 01/13/18 11:15 Albumin Human 2,600 ml @ 250 mls/hr Q48H IV 01/13/18 13:00 01/21/18 23:23 (Benadryl Inj) 25 mg UNSCH PRN IV PUSH 01/13/18 11:15 01/23/18 11:14 Calcium Gluconate 3 gm/Sodium Chloride 280 ml @ 90 mls/hr Q48H IV 01/13/18 13:00 01/21/18 16:07 Sodium Chloride 1,000 ml @ 0 mls/hr Q0M IV 01/13/18 11:15 01/23/18 11:14 (Acd Formula Inj) 1,000 ml Q48H OTHER 01/13/18 13:00 01/23/18 18:00 (NS Flush) 10 ml UNSCH PRN IV FLUSH 01/13/18 11:15 (Heparin Inj) 5,000 units UNSCH PRN IV FLUSH 01/13/18 11:15 01/23/18 11:14 (Heparin Inj) 1,000 units UNSCH PRN IV FLUSH 01/13/18 11:15 01/23/18 11:14 Pharmacy Profile Note 0 ml @ 0 mls/hr UNSCH OTHER 01/13/18 14:30 (VANCOMYCIN for oral use only) 250 mg QID PO 01/13/18 18:00 01/13/18 18:12 Allergies Allergies Coded Allergies penicillin G (Unverified Allergy, Severe, Anaphylaxis, 01/08/18) promethazine (Unverified Adverse Reaction, Severe, NAUSEOUS, 01/08/18) Review of Systems All other ROS: ROS reviewed as documented in chart Exam I&O / VS 01/13/18 01/13/18 01/14/18 15:00 23:00 07:00 Intake Total 999 ml 1174 ml Output Total 750 ml Balance 999 ml 424 ml IV Total 999 ml 354 ml Tube Feeding 520 ml Other 300 ml Output Urine Total 750 ml # Bowel Movements 4 Vital Signs Date Time Temp Pulse Resp B/P (MAP) Pulse Ox O2 Delivery O2 Flow Rate FiO2 01/13/18 18:00 66 12 100/57 (71) 100 01/13/18 18:00 66 01/13/18 17:00 72 12 99/54 (69) 100 01/13/18 16:00 45 01/13/18 16:00 99.0 65 12 93/51 (65) 100 01/13/18 16:00 65 01/13/18 15:00 59 12 96/55 (69) 100 01/13/18 14:45 100 45 01/13/18 14:00 55 12 100/55 (70) 100 01/13/18 14:00 55 01/13/18 13:00 63 12 93/52 (66) 100 01/13/18 12:00 45 01/13/18 12:00 98.3 52 12 92/52 (65) 100 01/13/18 12:00 52 01/13/18 11:39 100 45 01/13/18 11:00 55 12 102/59 (73) 100 01/13/18 10:00 75 12 88/51 (63) 100 01/13/18 10:00 75 01/13/18 09:00 78 12 108/56 (73) 98 01/13/18 08:00 52 01/13/18 08:00 45 01/13/18 08:00 98.0 52 12 89/50 (63) 100 01/13/18 07:43 100 45 01/13/18 07:00 50 12 96/59 (71) 100 01/13/18 06:00 49 01/13/18 04:15 96 50 01/13/18 04:00 50 01/13/18 04:00 77 01/13/18 04:00 98.4 77 17 95/52 (66) 96 01/13/18 02:00 52 01/13/18 00:01 100 50 01/13/18 00:00 50 01/13/18 00:00 97.2 54 12 93/59 (70) 100 01/13/18 00:00 55 01/13/18 00:00 54 12 93/59 01/12/18 22:00 60 01/12/18 22:00 60 12 99/58 01/12/18 21:12 68 12 95/54 01/12/18 20:17 100 50 01/12/18 20:00 65 01/12/18 20:00 50 01/12/18 20:00 97.4 65 12 101/59 (73) 100 General: Alert and Oriented, No acute distress Eye: PERRL, EOMI, Normal conjuctiva Respiratory: Non-labored respirations, Symmetrical expansion Cardiology: Normal rate, Intact pulses, Regular Rhythm Musculoskeletal: ROM Neurologic: Alert, Oriented, Normal motor, CN II-XII intact, Normal DTR's Psychiatric: Cooperative, Appropriate mood & affect, Normal judgement Exam Comments alert CN--ptosis worse today, EOM intact MOTOR /5 BUE and BLE Objective Micro and Labs Laboratory Tests Test 01/12/18 21:27 01/13/18 06:00 01/13/18 09:50 Blood Smear Pathologist Review Potassium Level 3.8 3.5 White Blood Count 6.4 Red Blood Count 3.29 Hemoglobin 8.8 Hematocrit 27.0 Mean Corpuscular Volume 82.1 Mean Corpuscular Hemoglobin 26.8 Mean Corpuscular Hemoglobin Concent 32.7 Red Cell Distribution Width 27.0 Platelet Count 309 Mean Platelet Volume 9.8 Neutrophils (%) (Auto) 93.9 Lymphocytes (%) (Auto) 2.6 Monocytes (%) (Auto) 3.3 Eosinophils (%) (Auto) 0.0 Basophils (%) (Auto) 0.2 Neutrophils # (Auto) 6.0 Lymphocytes # (Auto) 0.2 Monocytes # (Auto) 0.2 Eosinophils # (Auto) 0.0 Basophils # (Auto) 0.0 CBC Comment AUTO DIFF Differential Comment AUTO DIFF CONFIRMED Platelet Estimate NORMAL Platelet Morphology Comment NORMAL Ovalocytes 1+ Acanthocytes OCC Haptoglobin 286 Prothrombin Time 10.0 Prothromb Time International Ratio 1.0 Activated Partial Thromboplast Time 31.9 Fibrinogen 429 Blood Urea Nitrogen 15 Creatinine 0.42 Random Glucose 195 Total Protein 7.1 Albumin 1.9 Calcium Level 8.1 Phosphorus Level 2.2 Magnesium Level 2.4 Alkaline Phosphatase 39 Aspartate Amino Transf (AST/SGOT) 5 Alanine Aminotransferase (ALT/SGPT) 9 Lactate Dehydrogenase 91 Total Bilirubin LESS THAN 0.1 Sodium Level 144 Chloride Level 116 Carbon Dioxide Level 25.3 Anion Gap 3 Estimat Glomerular Filtration Rate 166 Iron Level 45 Total Iron Binding Capacity 168 Percent Iron Saturation 26.8 Ferritin 245 Stool C. difficile Toxin (PCR) POSITIVE Stl C. difficile Toxin Epiderm 027 PRESUMPTIVE NEGATIVE Date/Time Source Procedure Growth Status 01/11/18 11:31 Blood Peripheral Aerobic Blood Culture - Preliminary NO GROWTH IN 2 DAYS Resulted 01/11/18 11:31 Blood Peripheral Anaerobic Blood Culture - Preliminary NO GROWTH IN 2 DAYS Resulted 01/13/18 17:15 Stool Stool Stool Occult Blood (MANUELITO) Pending Received 01/12/18 14:00 Sputum Endotracheal Gram Stain - Final Resulted 01/12/18 14:00 Sputum Culture - Preliminary S. Aureus Mrsa Resulted 01/11/18 12:20 Urine Catheterized Urine Urine Culture - Final NO GROWTH IN 48 HOURS. Complete Leonardo De La Fuente MD PhD Jan 13, 2018 19:16
[2018-01-14] VITALS (17 sets, daily range): BP systolic 106–133; BP diastolic 57–77; PULSE 62–109; RESP 9–13; TEMP 97.8–100.2; O2SAT 95–100
[2018-01-14] MEDS: methylPREDNISolone SOD SUCC 125 MG/2 ML VIAL IV PUSH SCH ×3 (01:35→17:00)
[2018-01-14] MEDS: metroNIDAZOLE 500 MG INJ 100 ML IV SCH ×3 (01:36→17:28)
[2018-01-14] MEDS: INSULIN ASPART SUPPLEMENTAL SCALE SQ SCH ×6 (01:43→21:44)
[2018-01-14] MEDS: VANCOMYCIN 1,000 MG/NS 250 ML IV SCH ×6 (02:25→17:28)
[2018-01-14] MEDS: CHLORHEXIDINE GLUCONATE 2 % 1 PACK (2 CLOTHS) TOP SCH (03:01)
[2018-01-14] MEDS: AZTREONAM INJ 2,000 MG in SODIUM CHLORIDE 0.9% INJ 100 ML IV SCH ×3 (03:01→17:52)
[2018-01-14] MEDS: RESP: ALBUTEROL 2.5 MG/IPRATROPIUM 0.5 MG NEB (SCH) NEB ×5 (03:59→19:44)
[2018-01-14 04:06] LABS: AUTOMATED NEUTROPHIL # 12.2 TH/MM3 (1.8-7.7); BASOPHIL % 0.2 % (0.0-2.0); HEMATOCRIT 26.2 % (35.0-46.0); HEMOGLOBIN 8.4 GM/DL (11.6-15.3); LYMPH % 3.2 % (9.0-44.0); LYMPHOCYTE # 0.4 TH/MM3 (1.0-4.8); MEAN CELL VOLUME 82.8 FL (80.0-100.0); MEAN CORPUSCULAR HEMOGLOBIN 26.4 PG (27.0-34.0); MEAN CORPUSCULAR HGB CONC 31.9 % (32.0-36.0); MEAN PLATELET VOLUME 9.6 FL (7.0-11.0); MONO % 4.1 % (0.0-8.0); MONOCYTE # 0.5 TH/MM3 (0-0.9); NEUT % 92.5 % (16.0-70.0); PLATELET COUNT 263 TH/MM3 (150-450); RED BLOOD COUNT 3.16 MIL/MM3 (4.00-5.30); RED CELL DISTRIBUTION WIDTH 25.9 % (11.6-17.2); WHITE BLOOD COUNT 13.2 TH/MM3 (4.0-11.0)
[2018-01-14 04:57] LABS: ALBUMIN 2.9 GM/DL (3.4-5.0); ALKALINE PHOSPHATASE 26 U/L (45-117); ALT (GPT) 7 U/L (10-53); AST (GOT) 5 U/L (15-37); BICARBONATE 27.3 MEQ/L (21.0-32.0); BLOOD UREA NITROGEN 11 MG/DL (7-18); CALCIUM 7.9 MG/DL (8.5-10.1); CHLORIDE 119 MEQ/L (98-107); GLOMERULAR FILTRATION RATE 245 ML/MIN (>89); GLUCOSE,RANDOM 156 MG/DL (74-106); SODIUM (NA) 150 MEQ/L (136-145); TOTAL BILIRUBIN ADULT 0.2 MG/DL (0.2-1.0); TOTAL PROTEIN 5.6 GM/DL (6.4-8.2)
[2018-01-14] MEDS: POTASSIUM CHLOR 40 MEQ PREMIX 100 ML IV PRN (05:39)
[2018-01-14] MEDS: PROPOFOL 1000 MG/100 ML INJ 100 ML IV PRN ×3 (05:55→21:45)
[2018-01-14] MEDS: RESP: BUDESONIDE 0.5 MG/2 ML NEB NEB SCH ×2 (07:46→19:44)
[2018-01-14] MEDS: LEVOFLOXACIN 500 MG PREMIX INJ 100 ML IV SCH (08:12)
[2018-01-14] MEDS: SODIUM CHLORIDE 0.9% FLUSH 10 ML FLUSH IV FLUSH SCH ×2 (08:12→21:44)
[2018-01-14] MEDS: fentaNYL 2,500 MCG/NS 250 ML IV PRN (08:12)
[2018-01-14] MEDS: VANCOMYCIN 500 MG VIAL (FOR ORAL USE ONLY) PO SCH ×4 (08:13→21:44)
[2018-01-14] MEDS: LACTOBACILLUS ACIDOPHILUS TAB PO SCH (08:13)
[2018-01-14] MEDS: DOCUSATE SODIUM 50 MG/SENNA 8.6 MG TAB PO SCH ×2 (08:13→21:00)
[2018-01-14] MEDS: PYRIDOSTIGMINE BROMIDE 60 MG TAB PO SCH ×3 (08:13→17:00)
[2018-01-14] MEDS: ASPIRIN 81 MG CHEW TAB CHEW SCH (08:13)
[2018-01-14] MEDS: FAMOTIDINE 20 MG TAB PO SCH (08:13)
[2018-01-14] MEDS: MYCOPHENOLATE MOFETIL 200 MG/ML 175 ML BOTTLE PO SCH ×2 (08:14→21:44)
[2018-01-14] MEDS: CHLORHEXIDINE 0.12% (ORAL KIT) 15 ML CUP MT SCH ×2 (08:14→21:44)
[2018-01-14] MEDS: BENEPROTEIN POWDER 1 PACK G-TUBE SCH ×3 (08:14→17:28)
[2018-01-14 08:18] LABS: OVALOCYTES 1+ (NORMAL)
[2018-01-14] MEDS: MIDAZOLAM 100 MG/100 ML INJ 100 ML IV PRN ×2 (08:49→17:53)
--- NOTE | 2018-01-14 11:25 | RADRPT ---
EXAM DATE/TIME: 01/14/2018 10:11 [place] COMPARISON: No previous studies available for comparison. INDICATIONS : Distention. MEDICAL HISTORY : Myasthenia gravis, migraines, anemia c-diff SURGICAL HISTORY : thymus removed, left chest port, blood transfusions ENCOUNTER: Initial ACUITY: 4 - 6 days PAIN SCORE: Non-responsive. LOCATION: Bilateral abdomen FINDINGS: Supine view of the abdomen was performed. Gastric tube tip and side-port project in the left hypogas tric region, probably within the stomach. The abdominal bowel gas pattern is normal. No abnormal ma sses, calcifications, or organomegaly is seen. Right total hip arthroplasty.. CONCLUSION: No dilated loops of small or large bowel. Pilo Walker MD on January 14, 2018 at 11:22 Board Certified Radiologist. This report was verified electronically.
--- NOTE | 2018-01-14 11:32 | HHI.CCPN ---
Subjective Remarks/Hospital Course 01/08: 42-year-old unfortunate female presenting to the emergency department for evaluation of altered mental status. This is her seventh admission within the last 5 months for the similar symptoms. Per EMS patient's ex- found her in bed yesterday, apparently at that time she was still verbal. When he returned home this afternoon she was not responding, stiff and moaning. H&P is limited due to patient's clinical condition. Her last admission was 2 weeks ago with a diagnosis of myasthenia gravis exacerbation. Per ED documentation report she has been sick with flulike symptoms all week including nausea and vomiting and diarrhea. She has been unable to keep down any of her medications. Every time she eats she has a bowel movement. Per ED reports she also intentionally overdosed with Midodrin. 01/09: Patient agitated and anxious this morning not verbalizing. Appeared to have some tachypnea and dyspnea. Patient became extremely anxious and agitated with heart rate going up to the 160s and blood pressure 170s systolic. She had dilated pupils bilaterally despite Ativan 2 mg IV given earlier to control anxiety, probably secondary to cocaine and amphetamines in her system as her tox screen came back positive for cocaine, amphetamines, barbiturates. Patient was emergently intubated using etomidate for sedation and placed on mechanical ventilation. No neuromuscular blockade was used during intubation in view of myasthenia gravis. Her heart rate came down to 150s following intubation. 1 L normal saline fluid bolus was ordered following which heart rate came down to 120s. 01/10: Resting comfortably on sedation, awake and alert, orally intubated on mechanical ventilation. On propofol Versed and fentanyl drips. Following commands appropriately, moving all 4 extremities. Denies any shortness of breath by shaking her head. 01/11: I was emergently called to the bedside today as patient was unresponsive with agonal breathing hardly 2-3 breaths per minute, and severe bradycardia, HR down to 25/mt, impending cardio pulmonary arrest. Epinephrine 1 mg IV push given stat, followed by one ampule of bicarb and 1 g of calcium chloride. Patient was intubated emergently without any medication as she was comatose. Apparently was hypoxic agitated requiring BiPAP but noncompliant. Received Ativan 2 mg at after midnight and also sent 1 dose of Xanax apparently for agitation 01/12: Remains intubated sedated but ventilator mechanics has improved. FiO2 down to 50%. On propofol and Versed gtt, but wide awake following commands. Off pressors. remains on full alignment 50,000 ng. Start weaning Flolan per protocol 01/13: Persistent muscular weakness due to myasthenia despite IVIG and steroids. Hematology consult to start plasma exchange alternate days 5. Vas-Cath placed. Continue to wean Flolan per protocol. Chest x-ray with persistent right lower lobe pneumonia 01/14: Started on plasma exchange therapy yesterday for myasthenia crisis leading to respiratory arrest. Currently also receiving treatment for MRSA pneumonia and C. difficile colitis. Myasthenia crisis most likely precipitated by acute infection, pneumonia. Significant muscular weakness persists, patient remains intubated and critically ill. Weaned off Flolan. Oxygenating well, will start CPAP trial to exercise respiratory muscles-unable to extubate due to severe and persistent muscular weakness Objective Vital Signs Date Time Temp Pulse Resp B/P (MAP) Pulse Ox O2 Delivery O2 Flow Rate FiO2 01/14/18 11:11 98 40 01/14/18 10:00 77 01/14/18 08:00 100.2 12 106/57 (73) 01/10/18 20:54 Nasal Cannula 2.00 Intake and Output 01/14/18 01/14/18 01/15/18 08:00 16:00 00:00 Intake Total 1167 ml Output Total 950 ml Balance 217 ml Result Diagram: 01/14/18 0320 01/14/18 0320 Other Results Microbiology Date/Time Source Procedure Growth Status 01/13/18 17:15 Stool Stool Stool Occult Blood (MANUELITO) - Final HEMOCCULT POSITIVE Complete 01/12/18 14:00 Sputum Endotracheal Gram Stain - Final Complete 01/12/18 14:00 Sputum Culture - Final S. Aureus Mrsa Complete 01/11/18 12:20 Urine Catheterized Urine Urine Culture - Final NO GROWTH IN 48 HOURS. Complete Imaging Last 24 hours Impressions Chest X-Ray 01/08/18 0000 Signed Impressions: Service Date/Time: Monday, January 08, 2018 22:21 - CONCLUSION: No acute disease. Volodymyr Quinn MD Objective Remarks GEN: Remains intubated sedated with propofol, fentanyl and Versed infusions. Critically ill HEENT: Pupils 2 mm sluggish. Orotracheally intubated Neck: No JVD Chest/Pulm: Air entry diminished at the right base with coarse crackles. Mild amount of secretions CVS: Tachycardic, off pressors no murmur. GI/abdomen: soft, nontender, bowel sounds sluggish NEURO: Pupils are reactive. On sedation eyes are spontaneously open. Follows 4. Muscle power 4/5 in upper extremities proximally and distally,2-3/5 in all lower extremity muscles. Some ptosis persist. Barely able to lift head off the pillow A/P Assessment and Plan Neuro: Myasthenia crisis Myasthenia gravis Metabolic encephalopathy -Started plasma exchange 01/13/18. Appreciate hematology and neurology input -Plan for 5 sessions of plasma exchange every alternate day -IVIG completed course -Mycophenolate Mofetil, IV Solumedrol, Pyridostigmine Redkey -Further recommendations per neurologist -Holding gabapentin for neuropathy -Holding sumatriptan for migraine -Propofol, Versed, fentanyl infusion for sedation and pain control -History of polypharmacy, history of Xanax and opioid use -Drug screen positive for cocaine, barbiturates, amphetamines -Citalopram held in view of concern regarding overdose. -Psych has seen RESP: s/p Respiratory arrest secondary to myasthenia crisis Acute hypoxemic and hypercarbic respiratory failure Right lower lobe pneumonia/MRSA -Emergently intubated and placed on full mechanical ventilation PRVC mode -Myasthenia crisis and respiratory arrest most likely secondary to MRSA pneumonia, and sepsis -DuoNeb every 6 hours scheduled and as needed, Ventilator bundle -On inhaled Flolan, weaned off -MRSA pneumonia on IV Vancomycin -Daily SBT without extubation, severe muscular weakness will not permit extubation CVS: Severe bradycardia most likely from severe respiratory acidosis Sinus tachycardia now -Severe bradycardia most likely secondary to severe respiratory acidosis, improved rapidly after intubation -Received epinephrine bicarb and calcium -Slightly elevated troponin secondary to above -IV hydration-change normal saline to half-normal saline due to hypernatremia, labetalol when necessary for hypertension, tachycardia. GI: C. difficile colitis -Famotidine -Tube feeds with Jevity, free water increased to 200 mL every 6 hours -Bowel regimen -On p.o. vancomycin and IV Flagyl for C. difficile colitis /Endo: Hypokalemia Hypophosphatemia -Electrolytes replacement per ICU protocol -Strict intake output -Ledezma catheter Heme: Anemia -Continue Ferrous Sulfate ID: Right lower lobe pneumonia/MRSA C. difficile colitis, recurrent Severe sepsis Continue IV vancomycin, Azactam, IV Flagyl. Discontinue Levaquin P.o. vancomycin started yesterday for positive C. difficile colitis Nasal aspirate negative for influenza A and B neg. Urine for strep pneumo and Legionella antigen negative. DVT GI prophylaxis -SCDs -Lovenox -Pepcid Critical Care: The total critical care time was 35 minutes excluding procedures. Time to perform other separately billable procedures was not included in the critical care time. Remains critically ill with persistent weakness from myasthenia, started on plasma exchange therapy 01/13. Remains in sepsis due to right lower lobe pneumonia, C Diff colitis. Due to myasthenia crisis patient needs full ventilator support. Complete 5 sessions of Plasma exchange. If not improved may need tracheostomy and prolonged vent support Luda Horn MD Jan 14, 2018 11:32
[2018-01-14] MEDS: SODIUM CHLOR 0.45% 1000 ML INJ 1,000 ML IV SCH (12:31)
[2018-01-14] MEDS: FERROUS SULFATE 325 MG (65 MG ELEMENTAL IRON) TAB PO SCH ×2 (13:32→17:00)
[2018-01-14 15:12] LABS: PROTHROMBIN TIME - PATIENT 10.5 SEC (9.8-11.6)
--- NOTE | 2018-01-14 17:01 | HHI.PR ---
Review/Management Diagnosis myasthenia gravis---- depression Plan continue plasmapheresis for total of 5 Diagnosis/Plan: Subjective Subjective Comments No acute events reported tolerating plasmapheresis Active Medications Current Medications Medications (Trade) Dose Ordered Sig/Gómez Route Start Time Stop Time Status Last Admin (Aspirin Chew) 81 mg DAILY CHEW 01/09/18 09:00 01/14/18 08:13 (CeleXA) 40 mg DAILY PO 01/09/18 09:00 Future Hold (Ferrous Sulfate) 325 mg BID@,17 PO 01/09/18 12:00 01/14/18 13:32 (Neurontin) 300 mg Q8H PO 01/08/18 23:15 Future Hold (Deltasone) 5 mg DAILY PO 01/09/18 09:00 Future Hold 01/10/18 08:20 (Mestinon) 120 mg TIDAC PO 01/09/18 08:00 01/14/18 13:39 (Lactinex) 1 tab DAILY PO 01/09/18 09:00 01/14/18 08:13 (Fioricet 325-50-40) 1 tab Q6H PRN PO 01/08/18 23:15 01/11/18 05:50 (NS Flush) 2 ml UNSCH PRN IV FLUSH 01/08/18 23:30 01/12/18 08:13 (NS Flush) 2 ml BID IV FLUSH 01/09/18 09:00 01/14/18 08:12 (Tylenol) 650 mg Q6H PRN PO 01/08/18 23:30 01/09/18 14:58 (Pepcid) 20 mg DAILY PO 01/09/18 09:00 01/14/18 08:13 (Zofran Inj) 4 mg Q6H PRN IV PUSH 01/08/18 23:30 01/10/18 13:09 (Duoneb Neb) 1 ampule Q2HR NEB PRN INH 01/08/18 23:30 01/09/18 06:48 (Lovenox Inj) 30 mg Q24H SQ 01/08/18 23:30 01/13/18 22:09 Miscellaneous Information 1 Q361D XX 01/08/18 23:30 01/08/18 23:30 (Chlorhexidine 2% Cloth) Taper DAILY@04 TOP 01/09/18 04:00 3/28/19 03:59 01/13/18 04:00 (Chlorhexidine 2% Cloth) 3 pack UNSCH PRN TOP 01/08/18 23:30 (Bonita-Colace) 1 tab BID PO 01/09/18 09:00 01/13/18 09:39 (Milk Of Magnesia Liq) 30 ml Q12H PRN PO 01/08/18 23:30 01/10/18 17:53 (Senokot) 17.2 mg Q12H PRN PO 01/08/18 23:30 (Dulcolax Supp) 10 mg DAILY PRN RECTAL 01/08/18 23:30 (Lactulose Liq) 30 ml DAILY PRN PO 01/08/18 23:30 Potassium Chloride 100 ml @ 50 mls/hr Q2H PRN IV 01/09/18 00:00 01/14/18 05:39 Potassium Chloride 100 ml @ 50 mls/hr Q2H PRN IV 01/09/18 00:00 (K-Lyte Cl Eff) 50 meq UNSCH PRN PO 01/09/18 00:00 Potassium Chloride 100 ml @ 25 mls/hr UNSCH PRN IV 01/09/18 00:00 01/10/18 08:19 Potassium Chloride 100 ml @ 50 mls/hr Q2H PRN IV 01/09/18 00:00 Magnesium Sulfate 4 gm/Sodium Chloride 100 ml @ 50 mls/hr UNSCH PRN IV 01/09/18 00:00 (Mag-Ox) 800 mg UNSCH PRN PO 01/09/18 00:00 Magnesium Sulfate 2 gm/Sodium Chloride 100 ml @ 50 mls/hr UNSCH PRN IV 01/09/18 00:00 (K-Phos) 2,000 mg Q4H PRN PO 01/09/18 00:00 01/13/18 22:10 Sodium Phosphate 30 mmol/Sodium Chloride 250 ml @ 42 mls/hr UNSCH PRN IV 01/09/18 00:00 (K-Phos) 2,000 mg UNSCH PRN PO/TUBE 01/09/18 00:00 Potassium Phosphate 30 mmol/ Sodium Chloride 260 ml @ 42 mls/hr UNSCH PRN IV 01/09/18 00:00 (Imitrex Inj) 6 mg Q12H PRN SQ 01/09/18 03:45 01/10/18 23:49 (Peridex 0.12% Liq) 15 ml BID@08,20 MT 01/09/18 08:00 01/14/18 08:14 Propofol 100 ml @ 1.56 mls/hr TITRATE PRN IV 01/09/18 08:00 01/14/18 05:55 (Trandate Inj) 10 mg Q2HR PRN IV PUSH 01/09/18 08:00 01/10/18 21:23 (Ativan Inj) 2 mg Q4H PRN IV PUSH 01/09/18 08:30 01/11/18 05:50 (fentaNYL INJ) 100 mcg Q4H PRN IV 01/09/18 16:15 01/09/18 20:21 (Percocet 10-325 Mg) 1 tab Q6H PRN PO 01/10/18 14:00 01/10/18 21:14 (SoluMEDROL INJ) 40 mg Q8H IV PUSH 01/11/18 09:00 01/14/18 08:13 (Pulmicort Respule Neb) 0.5 mg Q12HR NEB NEB 01/11/18 08:45 01/14/18 07:46 Aztreonam 2000 mg/ Sodium Chloride 100 ml @ 200 mls/hr Q8H IV 01/11/18 11:00 01/14/18 13:39 Metronidazole 100 ml @ 100 mls/hr Q8H IV 01/11/18 10:00 01/14/18 08:49 Midazolam HCl 100 ml @ 2 mls/hr TITRATE PRN IV 01/11/18 17:30 01/14/18 08:49 (Cellcept Liq) 500 mg BID PO 01/11/18 21:00 01/14/18 08:14 (Beneprotein Powder) 1 pack TID G-TUBE 01/12/18 13:00 01/14/18 13:00 Fentanyl Citrate 250 ml @ 5 mls/hr TITRATE PRN IV 01/12/18 11:00 01/14/18 08:12 (NovoLOG SUPPLEMENTAL SCALE) 1 Q4H SQ 01/13/18 09:00 01/14/18 08:50 (NS Flush) 5 ml UNSCH PRN IV FLUSH 01/13/18 11:15 (Heparin Inj) 2,000 units UNSCH PRN IV FLUSH 01/13/18 11:15 Albumin Human 2,600 ml @ 250 mls/hr Q48H IV 01/13/18 13:00 01/21/18 23:23 (Benadryl Inj) 25 mg UNSCH PRN IV PUSH 01/13/18 11:15 01/23/18 11:14 Calcium Gluconate 3 gm/Sodium Chloride 280 ml @ 90 mls/hr Q48H IV 01/13/18 13:00 01/21/18 16:07 Sodium Chloride 1,000 ml @ 0 mls/hr Q0M IV 01/13/18 11:15 01/23/18 11:14 (Acd Formula Inj) 1,000 ml Q48H OTHER 01/13/18 13:00 01/23/18 18:00 (NS Flush) 10 ml UNSCH PRN IV FLUSH 01/13/18 11:15 (Heparin Inj) 5,000 units UNSCH PRN IV FLUSH 01/13/18 11:15 01/23/18 11:14 (Heparin Inj) 1,000 units UNSCH PRN IV FLUSH 01/13/18 11:15 01/23/18 11:14 Pharmacy Profile Note 0 ml @ 0 mls/hr UNSCH OTHER 01/13/18 14:30 (VANCOMYCIN for oral use only) 250 mg QID PO 01/13/18 18:00 01/14/18 13:32 Vancomycin HCl 1000 mg/Sodium Chloride 250 ml @ 250 mls/hr Q8H IV 01/14/18 02:00 01/14/18 08:50 Miscellaneous Information SPECIFIC LAB TO BE DRAWN:VANCO TROUGH DATE TO BE DR... ONCE ONCE .XX 01/14/18 17:45 01/14/18 17:46 (Duoneb Neb) 1 ampule Q6HR NEB NEB 01/14/18 16:00 01/14/18 14:51 Sodium Chloride 1,000 ml @ 84 mls/hr [id number] IV 01/14/18 12:00 01/14/18 12:31 Allergies Allergies Coded Allergies penicillin G (Unverified Allergy, Severe, Anaphylaxis, 01/08/18) promethazine (Unverified Adverse Reaction, Severe, NAUSEOUS, 01/08/18) Review of Systems All other ROS: ROS reviewed as documented in chart Exam I&O / VS Vital Signs Date Time Temp Pulse Resp B/P (MAP) Pulse Ox O2 Delivery O2 Flow Rate FiO2 01/14/18 16:00 40 01/14/18 16:00 98.2 95 13 125/70 (88) 100 01/14/18 15:53 95 40 01/14/18 12:00 109 9 133/77 (95) 100 01/14/18 12:00 40 01/14/18 11:11 98 40 01/14/18 10:32 40 01/14/18 10:00 77 01/14/18 08:48 100 40 01/14/18 08:00 100.2 82 12 106/57 (73) 100 01/14/18 08:00 82 01/14/18 08:00 40 01/14/18 06:00 70 01/14/18 04:41 100 40 01/14/18 04:00 40 01/14/18 04:00 97.8 74 12 106/63 (77) 96 01/14/18 04:00 74 01/14/18 02:00 107 01/14/18 00:00 97.8 86 13 107/64 (78) 100 01/14/18 00:00 40 01/14/18 00:00 86 01/13/18 23:47 100 40 01/13/18 22:00 59 01/13/18 20:00 97.6 61 12 95/54 (68) 100 01/13/18 20:00 40 01/13/18 20:00 61 01/13/18 19:29 100 40 01/13/18 18:00 66 12 100/57 (71) 100 01/13/18 18:00 66 General: Alert and Oriented, No acute distress Eye: PERRL, EOMI, Normal conjuctiva Respiratory: Non-labored respirations, Symmetrical expansion Cardiology: Normal rate, Intact pulses, Regular Rhythm Musculoskeletal: ROM Neurologic: Alert, Oriented, Normal motor, CN II-XII intact, Normal DTR's Psychiatric: Cooperative, Appropriate mood & affect, Normal judgement Exam Comments alert CN--no ptosis, EOM intact MOTOR 4+/5 BUE and BLE Objective Micro and Labs Laboratory Tests Test 01/14/18 03:20 01/14/18 13:45 White Blood Count 13.2 Red Blood Count 3.16 Hemoglobin 8.4 Hematocrit 26.2 Mean Corpuscular Volume 82.8 Mean Corpuscular Hemoglobin 26.4 Mean Corpuscular Hemoglobin Concent 31.9 Red Cell Distribution Width 25.9 Platelet Count 263 Mean Platelet Volume 9.6 Neutrophils (%) (Auto) 92.5 Lymphocytes (%) (Auto) 3.2 Monocytes (%) (Auto) 4.1 Eosinophils (%) (Auto) 0.0 Basophils (%) (Auto) 0.2 Neutrophils # (Auto) 12.2 Lymphocytes # (Auto) 0.4 Monocytes # (Auto) 0.5 Eosinophils # (Auto) 0.0 Basophils # (Auto) 0.0 CBC Comment AUTO DIFF Differential Comment AUTO DIFF CONFIRMED Ovalocytes 1+ Blood Urea Nitrogen 11 Creatinine 0.30 Random Glucose 156 Total Protein 5.6 Albumin 2.9 Calcium Level 7.9 Alkaline Phosphatase 26 Aspartate Amino Transf (AST/SGOT) 5 Alanine Aminotransferase (ALT/SGPT) 7 Total Bilirubin 0.2 Sodium Level 150 Potassium Level 3.2 Chloride Level 119 Carbon Dioxide Level 27.3 Anion Gap 4 Estimat Glomerular Filtration Rate 245 Prothrombin Time 10.5 Prothromb Time International Ratio 1.0 Activated Partial Thromboplast Time 29.5 Fibrinogen 229 Date/Time Source Procedure Growth Status 01/11/18 11:31 Blood Peripheral Aerobic Blood Culture - Preliminary NO GROWTH IN 3 DAYS Resulted 01/11/18 11:31 Blood Peripheral Anaerobic Blood Culture - Preliminary NO GROWTH IN 3 DAYS Resulted 01/13/18 17:15 Stool Stool Stool Occult Blood (MANUELITO) - Final HEMOCCULT POSITIVE Complete 01/12/18 14:00 Sputum Endotracheal Gram Stain - Final Complete 01/12/18 14:00 Sputum Culture - Final S. Aureus Mrsa Complete 01/11/18 12:20 Urine Catheterized Urine Urine Culture - Final NO GROWTH IN 48 HOURS. Complete Leonardo De La Fuente MD PhD Jan 14, 2018 17:01
[2018-01-14] MEDS ORDERED: PHARMACY ORDERED LAB ONE (17:45)
--- NOTE | 2018-01-14 19:35 | PD.ONC.PN ---
Subjective Subjective Remarks Intubated and sedated. Alert, follows commands. Objective Data Date Time Temp Pulse Resp B/P (MAP) Pulse Ox O2 Delivery O2 Flow Rate FiO2 01/14/18 16:00 40 01/14/18 16:00 98.2 95 13 125/70 (88) 100 01/14/18 16:00 95 01/14/18 15:53 95 40 01/14/18 14:00 75 01/14/18 12:00 109 01/14/18 12:00 109 9 133/77 (95) 100 01/14/18 12:00 40 01/14/18 11:11 98 40 01/14/18 10:32 40 01/14/18 10:00 77 01/14/18 08:48 100 40 01/14/18 08:00 100.2 82 12 106/57 (73) 100 01/14/18 08:00 82 01/14/18 08:00 40 01/14/18 06:00 70 01/14/18 04:41 100 40 01/14/18 04:00 40 01/14/18 04:00 97.8 74 12 106/63 (77) 96 01/14/18 04:00 74 01/14/18 02:00 107 01/14/18 00:00 97.8 86 13 107/64 (78) 100 01/14/18 00:00 40 01/14/18 00:00 86 01/13/18 23:47 100 40 01/13/18 22:00 59 01/13/18 20:00 97.6 61 12 95/54 (68) 100 01/13/18 20:00 40 01/13/18 20:00 61 01/13/18 19:29 100 40 01/14/18 01/14/18 01/14/18 07:00 15:00 23:00 Intake Total 1167 ml Output Total 950 ml Balance 217 ml Result Diagram: 01/14/18 0320 01/14/18 0320 Laboratory Results Laboratory Tests Test 01/14/18 03:20 01/14/18 13:45 01/14/18 17:45 White Blood Count 13.2 TH/MM3 Red Blood Count 3.16 MIL/MM3 Hemoglobin 8.4 GM/DL Hematocrit 26.2 % Mean Corpuscular Volume 82.8 FL Mean Corpuscular Hemoglobin 26.4 PG Mean Corpuscular Hemoglobin Concent 31.9 % Red Cell Distribution Width 25.9 % Platelet Count 263 TH/MM3 Mean Platelet Volume 9.6 FL Neutrophils (%) (Auto) 92.5 % Lymphocytes (%) (Auto) 3.2 % Monocytes (%) (Auto) 4.1 % Eosinophils (%) (Auto) 0.0 % Basophils (%) (Auto) 0.2 % Neutrophils # (Auto) 12.2 TH/MM3 Lymphocytes # (Auto) 0.4 TH/MM3 Monocytes # (Auto) 0.5 TH/MM3 Eosinophils # (Auto) 0.0 TH/MM3 Basophils # (Auto) 0.0 TH/MM3 CBC Comment AUTO DIFF Differential Comment AUTO DIFF CONFIRMED Ovalocytes 1+ Blood Urea Nitrogen 11 MG/DL Creatinine 0.30 MG/DL Random Glucose 156 MG/DL Total Protein 5.6 GM/DL Albumin 2.9 GM/DL Calcium Level 7.9 MG/DL Alkaline Phosphatase 26 U/L Aspartate Amino Transf (AST/SGOT) 5 U/L Alanine Aminotransferase (ALT/SGPT) 7 U/L Total Bilirubin 0.2 MG/DL Sodium Level 150 MEQ/L Potassium Level 3.2 MEQ/L Chloride Level 119 MEQ/L Carbon Dioxide Level 27.3 MEQ/L Anion Gap 4 MEQ/L Estimat Glomerular Filtration Rate 245 ML/MIN Prothrombin Time 10.5 SEC Prothromb Time International Ratio 1.0 RATIO Activated Partial Thromboplast Time 29.5 SEC Fibrinogen 229 mg/dL Culture Results Microbiology Date/Time Source Procedure Growth Status 01/13/18 17:15 Stool Stool Stool Occult Blood (MANUELITO) - Final HEMOCCULT POSITIVE Complete 01/12/18 14:00 Sputum Endotracheal Gram Stain - Final Complete 01/12/18 14:00 Sputum Culture - Final S. Aureus Mrsa Complete Imaging Studies Last 24 hours Impressions Abdomen X-Ray 01/14/18 1007 Signed Impressions: Service Date/Time: Sunday, January 14, 2018 10:11 - CONCLUSION: No dilated loops of small or large bowel. Pilo Walker MD Administered Medications Medications (Trade) Dose Ordered Sig/Gómez Route PRN Reason Start Time Stop Time Status Last Admin Dose Admin Aspirin (Aspirin Chew) 81 mg DAILY CHEW 01/09/18 09:00 01/14/18 08:13 Ferrous Sulfate (Ferrous Sulfate) 325 mg BID@12,17 PO 01/09/18 12:00 01/14/18 17:00 Prednisone (Deltasone) 5 mg DAILY PO 01/09/18 09:00 Future Hold 01/10/18 08:20 Pyridostigmine [place] (Mestinon) 120 mg TIDAC PO 01/09/18 08:00 01/14/18 17:00 Lactobacillus Acidophilus (Lactinex) 1 tab DAILY PO 01/09/18 09:00 01/14/18 08:13 Acetaminophen/ Butalbital/ Caffeine (Fioricet 325-50-40) 1 tab Q6H PRN PO HEADACHE 01/08/18 23:15 01/11/18 05:50 Sodium Chloride (NS Flush) 2 ml UNSCH PRN IV FLUSH FLUSH AFTER USING IV ACCESS 01/08/18 23:30 01/12/18 08:13 Sodium Chloride (NS Flush) 2 ml BID IV FLUSH 01/09/18 09:00 01/14/18 08:12 Acetaminophen (Tylenol) 650 mg Q6H PRN PO FEVER >101F 01/08/18 23:30 01/09/18 14:58 Famotidine (Pepcid) 20 mg DAILY PO 01/09/18 09:00 01/14/18 08:13 Ondansetron HCl (Zofran Inj) 4 mg Q6H PRN IV PUSH NAUSEA OR VOMITING 01/08/18 23:30 01/10/18 13:09 Albuterol/ Ipratropium (Duoneb Neb) 1 ampule Q2HR NEB PRN INH WHEEZING 01/08/18 23:30 01/09/18 06:48 Enoxaparin Sodium (Lovenox Inj) 30 mg Q24H SQ 01/08/18 23:30 01/13/18 22:09 Miscellaneous Information 1 Q361D XX 01/08/18 23:30 01/08/18 23:30 Chlorhexidine Gluconate (Chlorhexidine 2% Cloth) Taper DAILY@04 TOP 01/09/18 04:00 01/05/19 03:59 01/13/18 04:00 Senna/Docusate Sodium (Bonita-Colace) 1 tab BID PO 01/09/18 09:00 01/13/18 09:39 Magnesium Hydroxide (Milk Of Magnesia Liq) 30 ml Q12H PRN PO Mild constipation 01/08/18 23:30 01/10/18 17:53 Potassium Chloride 100 ml @ 50 mls/hr Q2H PRN IV For Potassium 2.8 - 3.2 mEq/L 01/09/18 00:00 01/14/18 05:39 Potassium Chloride 100 ml @ 25 mls/hr UNSCH PRN IV For Potassium 3.3 - 3.5 mEq/L 01/09/18 00:00 01/10/18 08:19 Potassium Phosphate (K-Phos) 2,000 mg Q4H PRN PO For Phosphorus < 2.5 mg/dL 01/09/18 00:00 01/13/18 22:10 Sumatriptan Succinate (Imitrex Inj) 6 mg Q12H PRN SQ HEADACHE/ MIGRAINE 01/09/18 03:45 01/10/18 23:49 Chlorhexidine Gluconate (Peridex 0.12% Liq) 15 ml BID@08,20 MT 01/09/18 08:00 01/14/18 08:14 Propofol 100 ml @ 1.56 mls/hr TITRATE PRN IV SEDATION 01/09/18 08:00 01/14/18 05:55 Labetalol HCl (Trandate Inj) 10 mg Q2HR PRN IV PUSH SBP greater than 160mm Hg 01/09/18 08:00 01/10/18 21:23 Lorazepam (Ativan Inj) 2 mg Q4H PRN IV PUSH agitation 01/09/18 08:30 01/11/18 05:50 Fentanyl Citrate (fentaNYL INJ) 100 mcg Q4H PRN IV PAIN SCALE 1-10 01/09/18 16:15 01/09/18 20:21 Oxycodone/ Acetaminophen (Percocet 10-325 Mg) 1 tab Q6H PRN PO PAIN WHEN TOLERATING PO MEDS 01/10/18 14:00 01/10/18 21:14 Methylprednisolone Sodium Succinate (SoluMEDROL INJ) 40 mg Q8H IV PUSH 01/11/18 09:00 01/14/18 17:00 Budesonide (Pulmicort Respule Neb) 0.5 mg Q12HR NEB NEB 01/11/18 08:45 01/14/18 07:46 Aztreonam 2000 mg/ Sodium Chloride 100 ml @ 200 mls/hr Q8H IV 01/11/18 11:00 01/14/18 17:52 Metronidazole 100 ml @ 100 mls/hr Q8H IV 01/11/18 10:00 01/14/18 17:28 Midazolam HCl 100 ml @ 2 mls/hr TITRATE PRN IV SEDATION 01/11/18 17:30 01/14/18 17:53 Mycophenolate Mofetil (Cellcept Liq) 500 mg BID PO 01/11/18 21:00 01/14/18 08:14 Protein (Beneprotein Powder) 1 pack TID G-TUBE 01/12/18 13:00 01/14/18 17:28 Fentanyl Citrate 250 ml @ 5 mls/hr TITRATE PRN IV Sedation 01/12/18 11:00 01/14/18 08:12 Insulin Aspart (NovoLOG SUPPLEMENTAL SCALE) 1 Q4H SQ 01/13/18 09:00 01/14/18 08:50 Vancomycin HCl (VANCOMYCIN for oral use only) 250 mg QID PO 01/13/18 18:00 01/14/18 17:28 Vancomycin HCl 1000 mg/Sodium Chloride 250 ml @ 250 mls/hr Q8H IV 01/14/18 02:00 01/14/18 17:28 Albuterol/ Ipratropium (Duoneb Neb) 1 ampule Q6HR NEB NEB 01/14/18 16:00 01/14/18 14:51 Sodium Chloride 1,000 ml @ 84 mls/hr [id number] IV 01/14/18 12:00 01/14/18 12:31 Objective Remarks GENERAL: thin, chronically ill appearing SKIN: Warm and dry. HEAD: Normocephalic. EYES: No scleral icterus. No injection or drainage. NECK: Supple, trachea midline. No JVD or lymphadenopathy. CARDIOVASCULAR: tachycardic RESPIRATORY: Breath sounds equal bilaterally. No accessory muscle use. Intubated GASTROINTESTINAL: Abdomen soft, non-tender, nondistended. EXTREMITIES: No cyanosis, or edema. MUSCULOSKELETAL: Adequate muscle tone. NEUROLOGICAL: awake, alert PSYCHIATRIC: Appropriate mood and affect; insight and judgment normal. Assessment/Plan Assessment 1. Myastenia gravis exacerbation: CellCept, IVIG with no improvement in symptoms. Initiated plasmapheresis on 01/13/2017. Will plan for 5 total sessions of pheresis every other day. Next session ordered for tomorrow morning. Ordered labs. Will follow up electrolytes. May need to hold on pheresis if clinical picture, electrolytes abnormal. 2. Respiratory failure: MRSA pneumonia as well as MG contributing. 3. MRSA pneumonia: on antibiotic therapy 4. Cdiff colitis: on antibiotic therapy Tammy Jose MD Jan 14, 2018 19:35
[2018-01-14] MEDS: ENOXAPARIN SODIUM 30 MG/0.3 ML SYRINGE SQ SCH (21:45)
[2018-01-15] VITALS (24 sets, daily range): BP systolic 102–121; BP diastolic 58–69; PULSE 50–66; RESP 12; TEMP 97.6–98.8; O2SAT 94–100
[2018-01-15] MEDS: INSULIN ASPART SUPPLEMENTAL SCALE SQ SCH ×6 (01:00→21:00)
[2018-01-15] MEDS: methylPREDNISolone SOD SUCC 125 MG/2 ML VIAL IV PUSH SCH ×4 (02:35→23:03)
[2018-01-15] MEDS: metroNIDAZOLE 500 MG INJ 100 ML IV SCH ×3 (02:36→18:00)
[2018-01-15] MEDS: VANCOMYCIN INJ 1,200 MG in SODIUM CHLOR 0.9% 250 ML INJ 250 ML IV SCH ×3 (02:36→18:00)
[2018-01-15] MEDS: SODIUM CHLOR 0.45% 1000 ML INJ 1,000 ML IV SCH ×3 (02:39→23:06)
[2018-01-15] MEDS: PROPOFOL 1000 MG/100 ML INJ 100 ML IV PRN ×3 (03:53→15:14)
[2018-01-15] MEDS: CHLORHEXIDINE GLUCONATE 2 % 1 PACK (2 CLOTHS) TOP SCH (03:53)
[2018-01-15] MEDS: fentaNYL 2,500 MCG/NS 250 ML IV PRN (03:53)
[2018-01-15] MEDS: MIDAZOLAM 100 MG/100 ML INJ 100 ML IV PRN (04:27)
[2018-01-15] MEDS: AZTREONAM INJ 2,000 MG in SODIUM CHLORIDE 0.9% INJ 100 ML IV SCH ×3 (04:27→21:18)
[2018-01-15] MEDS: RESP: ALBUTEROL 2.5 MG/IPRATROPIUM 0.5 MG NEB (SCH) NEB ×4 (04:36→23:35)
[2018-01-15 06:11] LABS: AUTOMATED NEUTROPHIL # 7.4 TH/MM3 (1.8-7.7); BASOPHIL % 0.3 % (0.0-2.0); HEMATOCRIT 26.8 % (35.0-46.0); HEMOGLOBIN 8.6 GM/DL (11.6-15.3); LYMPH % 6.4 % (9.0-44.0); LYMPHOCYTE # 0.6 TH/MM3 (1.0-4.8); MEAN CELL VOLUME 83.1 FL (80.0-100.0); MEAN CORPUSCULAR HEMOGLOBIN 26.7 PG (27.0-34.0); MEAN CORPUSCULAR HGB CONC 32.1 % (32.0-36.0); MEAN PLATELET VOLUME 9.5 FL (7.0-11.0); MONO % 8.5 % (0.0-8.0); MONOCYTE # 0.7 TH/MM3 (0-0.9); NEUT % 84.8 % (16.0-70.0); PLATELET COUNT 187 TH/MM3 (150-450); RED BLOOD COUNT 3.22 MIL/MM3 (4.00-5.30); RED CELL DISTRIBUTION WIDTH 25.7 % (11.6-17.2); WHITE BLOOD COUNT 8.7 TH/MM3 (4.0-11.0)
[2018-01-15 06:31] LABS: ALBUMIN 2.7 GM/DL (3.4-5.0); AST (GOT) 5 U/L (15-37); BICARBONATE 29.8 MEQ/L (21.0-32.0); BLOOD UREA NITROGEN 8 MG/DL (7-18); CALCIUM 8.4 MG/DL (8.5-10.1); CHLORIDE 108 MEQ/L (98-107); GLOMERULAR FILTRATION RATE 245 ML/MIN (>89); GLUCOSE,RANDOM 130 MG/DL (74-106); MAGNESIUM 1.8 MG/DL (1.5-2.5); SODIUM (NA) 143 MEQ/L (136-145)
--- NOTE | 2018-01-15 06:32 | RADRPT ---
EXAM DATE/TIME: 01/15/2018 04:54 [place] COMPARISON: CHEST SINGLE AP, January 13, 2018, 8:50. INDICATIONS : Shortness of breath, possible pulmonary disease. MEDICAL HISTORY : Myasthenia gravis SURGICAL HISTORY : thymectomy [place] ENCOUNTER: Subsequent ACUITY: 1 week PAIN SCORE: Non-responsive. LOCATION: Bilateral chest FINDINGS: Single AP view of the chest. Endotracheal tube, nasogastric tube, right IJ central venous catheter, a nd left subclavian central venous catheter remain in place. Persistent right lung base opacity unchan ged. Increased medial left lower lobe atelectasis versus consolidation. CONCLUSION: No change in right lung base atelectasis versus consolidation. Increased left lung base atelectasis v ersus consolidation. Francois Smith MD on January 15, 2018 at 6:30 Board Certified Radiologist. This report was verified electronically.
[2018-01-15 06:37] LABS: ALKALINE PHOSPHATASE 31 U/L (45-117); ALT (GPT) 9 U/L (10-53); PHOSPHORUS 1.9 MG/DL (2.5-4.9); TOTAL BILIRUBIN ADULT 0.2 MG/DL (0.2-1.0); TOTAL PROTEIN 5.7 GM/DL (6.4-8.2)
[2018-01-15 07:22] LABS: OVALOCYTES 1+ (NORMAL)
[2018-01-15] MEDS: RESP: BUDESONIDE 0.5 MG/2 ML NEB NEB SCH ×2 (08:00→23:34)
[2018-01-15] MEDS: LACTOBACILLUS ACIDOPHILUS TAB PO SCH (08:48)
[2018-01-15] MEDS: FAMOTIDINE 20 MG TAB PO SCH (08:48)
[2018-01-15] MEDS: DOCUSATE SODIUM 50 MG/SENNA 8.6 MG TAB PO SCH ×2 (08:48→20:44)
[2018-01-15] MEDS: PYRIDOSTIGMINE BROMIDE 60 MG TAB PO SCH ×3 (08:48→18:00)
[2018-01-15] MEDS: ASPIRIN 81 MG CHEW TAB CHEW SCH (08:48)
[2018-01-15] MEDS: SODIUM CHLORIDE 0.9% FLUSH 10 ML FLUSH IV FLUSH SCH ×2 (08:49→21:18)
[2018-01-15] MEDS: BENEPROTEIN POWDER 1 PACK G-TUBE SCH ×3 (08:49→18:00)
[2018-01-15] MEDS: MYCOPHENOLATE MOFETIL 200 MG/ML 175 ML BOTTLE PO SCH ×2 (08:49→23:49)
[2018-01-15] MEDS: VANCOMYCIN 500 MG VIAL (FOR ORAL USE ONLY) PO SCH ×4 (08:50→21:19)
[2018-01-15] MEDS: CHLORHEXIDINE 0.12% (ORAL KIT) 15 ML CUP MT SCH ×2 (09:07→20:44)
[2018-01-15] MEDS: FERROUS SULFATE 325 MG (65 MG ELEMENTAL IRON) TAB PO SCH ×2 (12:16→18:00)
[2018-01-15] MEDS: ALBUMIN 5% IV SCH (12:25)
[2018-01-15] MEDS: SODIUM CHLOR 0.9% IV SCH (12:26)
[2018-01-15] MEDS: CALCIUM GLUCONATE IV SCH (12:26)
[2018-01-15] MEDS: ANTICOAGULANT CITRATE DEXTROSE SOLN-A 1L OTHER SCH (13:00)
--- NOTE | 2018-01-15 13:34 | PD.ONC.PN ---
Subjective Subjective Remarks Afebrile overnight Patient remains intubated and sedated Objective Data Date Time Temp Pulse Resp B/P (MAP) Pulse Ox O2 Delivery O2 Flow Rate FiO2 01/15/18 12:03 100 30 01/15/18 12:00 97.9 51 12 121/69 (86) 100 01/15/18 12:00 51 01/15/18 12:00 40 01/15/18 11:00 53 01/15/18 10:00 56 01/15/18 09:00 63 01/15/18 08:02 100 30 01/15/18 08:00 56 01/15/18 08:00 40 01/15/18 08:00 97.7 56 12 112/62 (79) 100 01/15/18 07:40 30 01/15/18 07:00 58 01/15/18 06:00 55 01/15/18 04:38 100 40 01/15/18 04:00 97.6 60 12 105/63 (77) 100 01/15/18 04:00 40 01/15/18 04:00 60 01/15/18 02:00 57 01/15/18 01:32 100 40 01/15/18 00:00 98.8 62 12 102/58 (73) 100 01/15/18 00:00 40 01/15/18 00:00 62 01/14/18 22:00 62 01/14/18 20:00 98.9 77 13 113/66 (82) 100 01/14/18 20:00 77 01/14/18 20:00 40 01/14/18 19:44 99 40 01/14/18 18:00 68 01/14/18 16:00 40 01/14/18 16:00 98.2 95 13 125/70 (88) 100 01/14/18 16:00 95 01/14/18 15:53 95 40 01/14/18 14:00 75 01/15/18 01/15/18 01/15/18 07:00 15:00 23:00 Intake Total 2644 ml Output Total 1650 ml Balance 994 ml Result Diagram: 01/15/18 0415 01/15/18 0415 Laboratory Results Laboratory Tests Test 01/14/18 13:45 01/14/18 17:45 01/15/18 04:15 Prothrombin Time 10.5 SEC 10.0 SEC Prothromb Time International Ratio 1.0 RATIO 1.0 RATIO Activated Partial Thromboplast Time 29.5 SEC 29.7 SEC Fibrinogen 229 mg/dL 277 mg/dL Vancomycin Level Trough 11.9 MCG/ML White Blood Count 8.7 TH/MM3 Red Blood Count 3.22 MIL/MM3 Hemoglobin 8.6 GM/DL Hematocrit 26.8 % Mean Corpuscular Volume 83.1 FL Mean Corpuscular Hemoglobin 26.7 PG Mean Corpuscular Hemoglobin Concent 32.1 % Red Cell Distribution Width 25.7 % Platelet Count 187 TH/MM3 Mean Platelet Volume 9.5 FL Neutrophils (%) (Auto) 84.8 % Lymphocytes (%) (Auto) 6.4 % Monocytes (%) (Auto) 8.5 % Eosinophils (%) (Auto) 0.0 % Basophils (%) (Auto) 0.3 % Neutrophils # (Auto) 7.4 TH/MM3 Lymphocytes # (Auto) 0.6 TH/MM3 Monocytes # (Auto) 0.7 TH/MM3 Eosinophils # (Auto) 0.0 TH/MM3 Basophils # (Auto) 0.0 TH/MM3 CBC Comment AUTO DIFF Differential Comment AUTO DIFF CONFIRMED Ovalocytes 1+ Blood Urea Nitrogen 8 MG/DL Creatinine 0.30 MG/DL Random Glucose 130 MG/DL Total Protein 5.7 GM/DL Albumin 2.7 GM/DL Calcium Level 8.4 MG/DL Phosphorus Level 1.9 MG/DL Magnesium Level 1.8 MG/DL Alkaline Phosphatase 31 U/L Aspartate Amino Transf (AST/SGOT) 5 U/L Alanine Aminotransferase (ALT/SGPT) 9 U/L Total Bilirubin 0.2 MG/DL Sodium Level 143 MEQ/L Potassium Level 3.6 MEQ/L Chloride Level 108 MEQ/L Carbon Dioxide Level 29.8 MEQ/L Anion Gap 5 MEQ/L Estimat Glomerular Filtration Rate 245 ML/MIN Culture Results Microbiology Date/Time Source Procedure Growth Status 01/13/18 17:15 Stool Stool Stool Occult Blood (MANUELITO) - Final HEMOCCULT POSITIVE Complete 01/12/18 14:00 Sputum Endotracheal Gram Stain - Final Complete 01/12/18 14:00 Sputum Culture - Final S. Aureus Mrsa Complete Imaging Studies Last 24 hours Impressions Chest X-Ray 01/15/18 0600 Signed Impressions: Service Date/Time: Monday, January 15, 2018 04:54 - CONCLUSION: No change in right lung base atelectasis versus consolidation. Increased left lung base atelectasis versus consolidation. Francois Smith MD Administered Medications Medications (Trade) Dose Ordered Sig/Gómez Route PRN Reason Start Time Stop Time Status Last Admin Dose Admin Aspirin (Aspirin Chew) 81 mg DAILY CHEW 01/09/18 09:00 01/15/18 08:48 Ferrous Sulfate (Ferrous Sulfate) 325 mg BID@12,17 PO 01/09/18 12:00 01/15/18 12:16 Prednisone (Deltasone) 5 mg DAILY PO 01/09/18 09:00 Future Hold 01/10/18 08:20 Pyridostigmine Cotton (Mestinon) 120 mg TIDAC PO 01/09/18 08:00 01/15/18 12:16 Lactobacillus Acidophilus (Lactinex) 1 tab DAILY PO 01/09/18 09:00 01/15/18 08:48 Acetaminophen/ Butalbital/ Caffeine (Fioricet 325-50-40) 1 tab Q6H PRN PO HEADACHE 01/08/18 23:15 01/11/18 05:50 Sodium Chloride (NS Flush) 2 ml UNSCH PRN IV FLUSH FLUSH AFTER USING IV ACCESS 01/08/18 23:30 01/12/18 08:13 Sodium Chloride (NS Flush) 2 ml BID IV FLUSH 01/09/18 09:00 01/15/18 08:49 Acetaminophen (Tylenol) 650 mg Q6H PRN PO FEVER >101F 01/08/18 23:30 01/09/18 14:58 Famotidine (Pepcid) 20 mg DAILY PO 01/09/18 09:00 01/15/18 08:48 Ondansetron HCl (Zofran Inj) 4 mg Q6H PRN IV PUSH NAUSEA OR VOMITING 01/08/18 23:30 01/10/18 13:09 Albuterol/ Ipratropium (Duoneb Neb) 1 ampule Q2HR NEB PRN INH WHEEZING 01/08/18 23:30 01/09/18 06:48 Enoxaparin Sodium (Lovenox Inj) 30 mg Q24H SQ 01/08/18 23:30 01/14/18 21:45 Miscellaneous Information 1 Q361D XX 01/08/18 23:30 01/08/18 23:30 Chlorhexidine Gluconate (Chlorhexidine 2% Cloth) Taper DAILY@04 TOP 01/09/18 04:00 01/05/19 03:59 01/13/18 04:00 Senna/Docusate Sodium (Bonita-Colace) 1 tab BID PO 01/09/18 09:00 01/15/18 08:48 Magnesium Hydroxide (Milk Of Magnesia Liq) 30 ml Q12H PRN PO Mild constipation 01/08/18 23:30 01/10/18 17:53 Potassium Chloride 100 ml @ 50 mls/hr Q2H PRN IV For Potassium 2.8 - 3.2 mEq/L 01/09/18 00:00 01/14/18 05:39 Potassium Chloride 100 ml @ 25 mls/hr UNSCH PRN IV For Potassium 3.3 - 3.5 mEq/L 01/09/18 00:00 01/10/18 08:19 Potassium Phosphate (K-Phos) 2,000 mg Q4H PRN PO For Phosphorus < 2.5 mg/dL 01/09/18 00:00 01/13/18 22:10 Sumatriptan Succinate (Imitrex Inj) 6 mg Q12H PRN SQ HEADACHE/ MIGRAINE 01/09/18 03:45 01/10/18 23:49 Chlorhexidine Gluconate (Peridex 0.12% Liq) 15 ml BID@08,20 MT 01/09/18 08:00 01/15/18 09:07 Propofol 100 ml @ 1.56 mls/hr TITRATE PRN IV SEDATION 01/09/18 08:00 01/15/18 09:37 Labetalol HCl (Trandate Inj) 10 mg Q2HR PRN IV PUSH SBP greater than 160mm Hg 01/09/18 08:00 01/10/18 21:23 Lorazepam (Ativan Inj) 2 mg Q4H PRN IV PUSH agitation 01/09/18 08:30 01/11/18 05:50 Fentanyl Citrate (fentaNYL INJ) 100 mcg Q4H PRN IV PAIN SCALE 1-10 01/09/18 16:15 01/09/18 20:21 Oxycodone/ Acetaminophen (Percocet 10-325 Mg) 1 tab Q6H PRN PO PAIN WHEN TOLERATING PO MEDS 01/10/18 14:00 01/10/18 21:14 Methylprednisolone Sodium Succinate (SoluMEDROL INJ) 40 mg Q8H IV PUSH 01/11/18 09:00 01/15/18 08:49 Budesonide (Pulmicort Respule Neb) 0.5 mg Q12HR NEB NEB 01/11/18 08:45 01/15/18 08:00 Aztreonam 2000 mg/ Sodium Chloride 100 ml @ 200 mls/hr Q8H IV 01/11/18 11:00 01/15/18 12:24 Metronidazole 100 ml @ 100 mls/hr Q8H IV 01/11/18 10:00 01/15/18 09:08 Midazolam HCl 100 ml @ 2 mls/hr TITRATE PRN IV SEDATION 01/11/18 17:30 01/15/18 04:27 Mycophenolate Mofetil (Cellcept Liq) 500 mg BID PO 01/11/18 21:00 01/15/18 08:49 Protein (Beneprotein Powder) 1 pack TID G-TUBE 01/12/18 13:00 01/15/18 12:26 Fentanyl Citrate 250 ml @ 5 mls/hr TITRATE PRN IV Sedation 01/12/18 11:00 01/15/18 03:53 Insulin Aspart (NovoLOG SUPPLEMENTAL SCALE) 1 Q4H SQ 01/13/18 09:00 01/15/18 13:03 Albumin Human 2,600 ml @ 250 mls/hr Q48H IV 01/13/18 13:00 01/21/18 23:23 01/15/18 12:25 Vancomycin HCl (VANCOMYCIN for oral use only) 250 mg QID PO 01/13/18 18:00 01/15/18 12:16 Albuterol/ Ipratropium (Duoneb Neb) 1 ampule Q6HR NEB NEB 01/14/18 16:00 01/15/18 09:33 Sodium Chloride 1,000 ml @ 84 mls/hr [id number] IV 01/14/18 12:00 01/15/18 02:39 Vancomycin HCl 1200 mg/Sodium Chloride 262 ml @ 250 mls/hr Q8H IV 01/15/18 02:00 01/15/18 02:36 Objective Remarks GENERAL: Young female resting in bed intubated and sedated SKIN: Warm and dry. HEAD: Normocephalic. EYES: No injection or drainage. NECK: Supple, trachea midline. CARDIOVASCULAR: Sinus bradycardia on monitor RESPIRATORY: Clear anteriorly. Mechanically ventilated. On 40% FiO2 GASTROINTESTINAL: Abdomen soft, non-tender, nondistended. EXTREMITIES: No cyanosis, or edema. MUSCULOSKELETAL: Adequate muscle tone. NEUROLOGICAL: No obvious focal deficit. Awake, alert, and oriented x3. Assessment/Plan Assessment 1. Myastenia gravis exacerbation: Patient will have paresis #2 of 5 today. These treatments are planned every other day. 2. Continue to monitor labs including CBC, BMP and coags Plan The exam, history, and the medical decision-making described in the above note were completed with the assistance of the mid-level provider. I reviewed and agree with the findings presented. I attest that I had a [id number] encounter with the patient on the same day, and personally performed and documented my assessment and findings in the medical record. Awake, trying to mouth out words, eager to have ET tube out. Plan for pheresis today. Hypercalcermia addressed with calcium during pheresis. Haydee Rollins Jan 15, 2018 13:34 Jodie Callahan MD Jan 15, 2018 16:56
--- NOTE | 2018-01-15 14:24 | HHI.CCPN ---
Subjective Remarks/Hospital Course 01/08: 42-year-old unfortunate female presenting to the emergency department for evaluation of altered mental status. This is her seventh admission within the last 5 months for the similar symptoms. Per EMS patient's ex- found her in bed yesterday, apparently at that time she was still verbal. When he returned home this afternoon she was not responding, stiff and moaning. H&P is limited due to patient's clinical condition. Her last admission was 2 weeks ago with a diagnosis of myasthenia gravis exacerbation. Per ED documentation report she has been sick with flulike symptoms all week including nausea and vomiting and diarrhea. She has been unable to keep down any of her medications. Every time she eats she has a bowel movement. Per ED reports she also intentionally overdosed with Midodrin. 01/09: Patient agitated and anxious this morning not verbalizing. Appeared to have some tachypnea and dyspnea. Patient became extremely anxious and agitated with heart rate going up to the 160s and blood pressure 170s systolic. She had dilated pupils bilaterally despite Ativan 2 mg IV given earlier to control anxiety, probably secondary to cocaine and amphetamines in her system as her tox screen came back positive for cocaine, amphetamines, barbiturates. Patient was emergently intubated using etomidate for sedation and placed on mechanical ventilation. No neuromuscular blockade was used during intubation in view of myasthenia gravis. Her heart rate came down to 150s following intubation. 1 L normal saline fluid bolus was ordered following which heart rate came down to 120s. 01/10: Resting comfortably on sedation, awake and alert, orally intubated on mechanical ventilation. On propofol Versed and fentanyl drips. Following commands appropriately, moving all 4 extremities. Denies any shortness of breath by shaking her head. 01/11: I was emergently called to the bedside today as patient was unresponsive with agonal breathing hardly 2-3 breaths per minute, and severe bradycardia, HR down to 25/mt, impending cardio pulmonary arrest. Epinephrine 1 mg IV push given stat, followed by one ampule of bicarb and 1 g of calcium chloride. Patient was intubated emergently without any medication as she was comatose. Apparently was hypoxic agitated requiring BiPAP but noncompliant. Received Ativan 2 mg at after midnight and also sent 1 dose of Xanax apparently for agitation 01/12: Remains intubated sedated but ventilator mechanics has improved. FiO2 down to 50%. On propofol and Versed gtt, but wide awake following commands. Off pressors. remains on full alignment 50,000 ng. Start weaning Flolan per protocol 01/13: Persistent muscular weakness due to myasthenia despite IVIG and steroids. Hematology consult to start plasma exchange alternate days 5. Vas-Cath placed. Continue to wean Flolan per protocol. Chest x-ray with persistent right lower lobe pneumonia 01/14: Started on plasma exchange therapy yesterday for myasthenia crisis leading to respiratory arrest. Currently also receiving treatment for MRSA pneumonia and C. difficile colitis. Myasthenia crisis most likely precipitated by acute infection, pneumonia. Significant muscular weakness persists, patient remains intubated and critically ill. Weaned off Flolan. Oxygenating well, will start CPAP trial to exercise respiratory muscles-unable to extubate due to severe and persistent muscular weakness 01/15: failed CPAP after only 10 minutes for weakness, tachypnea, shallow tidal volume breaths. remains sedated. need to start checking NIFs daily and aggressive PT/OT to prevent further weakness and deconditioning. Objective Vital Signs Date Time Temp Pulse Resp B/P (MAP) Pulse Ox O2 Delivery O2 Flow Rate FiO2 01/15/18 12:03 100 30 01/15/18 12:00 97.9 51 12 121/69 (86) Intake and Output 01/15/18 01/15/18 01/15/18 07:59 15:59 23:59 Intake Total 2644 ml Output Total 1650 ml Balance 994 ml Result Diagram: 01/15/18 0415 01/15/18 0415 Other Results Microbiology Date/Time Source Procedure Growth Status 01/13/18 17:15 Stool Stool Stool Occult Blood (MANUELITO) - Final HEMOCCULT POSITIVE Complete Imaging Last 24 hours Impressions Chest X-Ray 01/08/18 0000 Signed Impressions: Service Date/Time: Monday, January 08, 2018 22:21 - CONCLUSION: No acute disease. Volodymyr Quinn MD Objective Remarks GEN: Remains intubated sedated with propofol, fentanyl. Critically ill HEENT: Pupils 2 mm sluggish. Orotracheally intubated Neck: No JVD Chest/Pulm: Air entry diminished at the right base with coarse crackles. Mild amount of secretions CVS: normal rate, regular rhythm. sinus. GI/abdomen: soft, nontender, nondistended. no guarding. NEURO: Pupils are reactive. On sedation eyes are spontaneously open. Follows 4. Muscle power 4/5 in upper extremities proximally and distally,2-3/5 in all lower extremity muscles. Some ptosis persist. Barely able to lift head off the pillow A/P Assessment and Plan Assessment: 42yF with acute myasthenic crisis brought on by MRSA pneumonia and C. Difficile colitis. clinically not improving despite maximal therapy. continue plasmapheresis. need to start checking daily NIFs. need aggressive PT/ OT to prevent more deconditioning and OOB to stretcher chair daily. Discussed with bedside RN the importance of minimizing iv sedation as even iv sedatives can worsen myasthenic weakness. best if she remains awake and RASS 0 as this will support her ability to work with PT/OT. remains critically ill, off pathway and not responding to our escalating management of her myasthenic crisis. Neuro: Acute Myasthenia crisis Myasthenia gravis Metabolic encephalopathy -Started plasma exchange 01/13/18. Appreciate hematology and neurology input -Plan for 5 sessions of plasma exchange every alternate day -IVIG completed course -Mycophenolate Mofetil, IV Solumedrol, Pyridostigmine [place] -Further recommendations per neurologist -Holding gabapentin for neuropathy -Holding sumatriptan for migraine -Propofol, fentanyl infusion for sedation and pain control -History of polypharmacy, history of Xanax and opioid use -Drug screen positive for cocaine, barbiturates, amphetamines -Citalopram held in view of concern regarding overdose. -Psych has seen - goal RASS 0 - will add low-dose ativan for anxiety - may have prn dilaudid for pain or discomfort - attempt to wean as much sedation as possible to improve her ability to work with PT/OT. RESP: s/p Respiratory arrest secondary to myasthenia crisis Acute hypoxemic and hypercarbic respiratory failure Right lower lobe pneumonia/MRSA -Emergently intubated and placed on full mechanical ventilation PRVC mode -Myasthenia crisis and respiratory arrest most likely secondary to MRSA pneumonia, and sepsis -DuoNeb every 6 hours scheduled and as needed, Ventilator bundle -MRSA pneumonia on IV Vancomycin -Daily SBT without extubation, severe muscular weakness will not permit extubation - trend daily NIFs - PT/OT consults. OOB to stretcher chair daily to attempt to prevent further deconditioning. CVS: Severe bradycardia most likely from severe respiratory acidosis Sinus tachycardia now- improving. -Severe bradycardia most likely secondary to severe respiratory acidosis, improved rapidly after intubation -Received epinephrine bicarb and calcium -Slightly elevated troponin secondary to above -IV hydration-change normal saline to half-normal saline due to hypernatremia, labetalol when necessary for hypertension, tachycardia. GI: C. difficile colitis -Famotidine -Tube feeds with Jevity, free water increased to 200 mL every 6 hours -Bowel regimen -On p.o. vancomycin and IV Flagyl for C. difficile colitis /Endo: Hypokalemia Hypophosphatemia -Electrolytes replacement per ICU protocol -Strict intake output - d/c carrion catheter. Heme: Anemia -Continue Ferrous Sulfate ID: Right lower lobe pneumonia/MRSA C. difficile colitis, recurrent Severe sepsis Continue IV vancomycin, Azactam, IV Flagyl. Discontinue Levaquin P.o. vancomycin started yesterday for positive C. difficile colitis Nasal aspirate negative for influenza A and B neg. Urine for strep pneumo and Legionella antigen negative. DVT GI prophylaxis -SCDs -Lovenox -Pepcid Critical Care: The total critical care time was 31 minutes excluding procedures. Time to perform other separately billable procedures was not included in the critical care time. Remains critically ill with persistent weakness from myasthenia, started on plasma exchange therapy 01/13. Remains in sepsis due to right lower lobe pneumonia, C Diff colitis. Due to myasthenia crisis patient needs full ventilator support. Complete 5 sessions of Plasma exchange. If not improved may need tracheostomy and prolonged vent support Jonathan Linton MD Jan 15, 2018 14:24
[2018-01-15] MEDS: fentaNYL DRIP 250 ML IV PRN (15:14)
[2018-01-15] MEDS: LORazepam 2 MG/ML VIAL IV PUSH PRN ×2 (19:18→23:05)
[2018-01-15] MEDS: SUMAtriptan INJ 6 MG/0.5 ML VIAL SQ PRN (21:17)
[2018-01-15] MEDS: ENOXAPARIN SODIUM 30 MG/0.3 ML SYRINGE SQ SCH (23:03)
[2018-01-16] VITALS (17 sets, daily range): BP systolic 102–145; BP diastolic 58–77; PULSE 49–84; RESP 11–13; TEMP 97.8–98.4; O2SAT 79–100
[2018-01-16] MEDS: INSULIN ASPART SUPPLEMENTAL SCALE SQ SCH ×6 (00:18→21:00)
[2018-01-16] MEDS: CALCIUM GLUCONATE IV SCH (01:33)
[2018-01-16] MEDS: ALBUMIN 5% IV SCH (01:33)
[2018-01-16] MEDS: SODIUM CHLOR 0.9% IV SCH (01:33)
[2018-01-16] MEDS: AZTREONAM INJ 2,000 MG in SODIUM CHLORIDE 0.9% INJ 100 ML IV SCH ×3 (01:41→19:01)
[2018-01-16] MEDS: ACETAMINOPHEN 325 MG TAB PO PRN (01:41)
[2018-01-16] MEDS: metroNIDAZOLE 500 MG INJ 100 ML IV SCH ×3 (01:41→18:59)
[2018-01-16] MEDS: VANCOMYCIN INJ 1,200 MG in SODIUM CHLOR 0.9% 250 ML INJ 250 ML IV SCH (02:20)
[2018-01-16] MEDS: PROPOFOL 1000 MG/100 ML INJ 100 ML IV PRN ×2 (03:22→14:51)
[2018-01-16] MEDS: fentaNYL DRIP 250 ML IV PRN ×3 (03:23→21:59)
[2018-01-16] MEDS: CHLORHEXIDINE GLUCONATE 2 % 1 PACK (2 CLOTHS) TOP SCH (03:24)
[2018-01-16] MEDS: LORazepam 2 MG/ML VIAL IV PUSH PRN ×4 (03:46→22:00)
[2018-01-16] MEDS: RESP: ALBUTEROL 2.5 MG/IPRATROPIUM 0.5 MG NEB (SCH) NEB ×4 (04:00→21:40)
[2018-01-16 05:16] LABS: AUTOMATED NEUTROPHIL # 11.4 TH/MM3 (1.8-7.7); BASOPHIL % 0.2 % (0.0-2.0); HEMATOCRIT 28.3 % (35.0-46.0); HEMOGLOBIN 8.9 GM/DL (11.6-15.3); LYMPH % 4.6 % (9.0-44.0); LYMPHOCYTE # 0.6 TH/MM3 (1.0-4.8); MEAN CELL VOLUME 82.1 FL (80.0-100.0); MEAN CORPUSCULAR HEMOGLOBIN 25.9 PG (27.0-34.0); MEAN CORPUSCULAR HGB CONC 31.6 % (32.0-36.0); MEAN PLATELET VOLUME 9.2 FL (7.0-11.0); MONO % 5.8 % (0.0-8.0); MONOCYTE # 0.7 TH/MM3 (0-0.9); NEUT % 89.4 % (16.0-70.0); PLATELET COUNT 178 TH/MM3 (150-450); RED BLOOD COUNT 3.45 MIL/MM3 (4.00-5.30); RED CELL DISTRIBUTION WIDTH 25.3 % (11.6-17.2); WHITE BLOOD COUNT 12.7 TH/MM3 (4.0-11.0)
[2018-01-16 05:36] LABS: BICARBONATE 31.3 MEQ/L (21.0-32.0); CALCIUM 8.1 MG/DL (8.5-10.1); CREATININE 0.26 MG/DL (0.50-1.00)
[2018-01-16 05:58] LABS: INTERNATIONAL NORMALIZED RATIO 1.2 RATIO; PROTHROMBIN TIME - PATIENT 12.4 SEC (9.8-11.6)
[2018-01-16] MEDS: RESP: BUDESONIDE 0.5 MG/2 ML NEB NEB SCH ×2 (08:00→20:00)
[2018-01-16] MEDS: CHLORHEXIDINE 0.12% (ORAL KIT) 15 ML CUP MT SCH ×2 (08:35→20:00)
[2018-01-16] MEDS: SODIUM CHLORIDE 0.9% FLUSH 10 ML FLUSH IV FLUSH SCH ×2 (08:35→21:05)
[2018-01-16] MEDS: ASPIRIN 81 MG CHEW TAB CHEW SCH (08:36)
[2018-01-16] MEDS: PYRIDOSTIGMINE BROMIDE 60 MG TAB PO SCH ×3 (08:36→19:14)
[2018-01-16] MEDS: DOCUSATE SODIUM 50 MG/SENNA 8.6 MG TAB PO SCH ×2 (08:36→21:05)
[2018-01-16] MEDS: FAMOTIDINE 20 MG TAB PO SCH (08:36)
[2018-01-16] MEDS: VANCOMYCIN 500 MG VIAL (FOR ORAL USE ONLY) PO SCH ×4 (08:36→21:04)
[2018-01-16] MEDS: methylPREDNISolone SOD SUCC 125 MG/2 ML VIAL IV PUSH SCH ×2 (08:36→18:59)
[2018-01-16] MEDS: LACTOBACILLUS ACIDOPHILUS TAB PO SCH (08:36)
[2018-01-16] MEDS: MYCOPHENOLATE MOFETIL 200 MG/ML 175 ML BOTTLE PO SCH ×2 (08:37→21:10)
[2018-01-16] MEDS: BENEPROTEIN POWDER 1 PACK G-TUBE SCH ×3 (08:37→18:00)
[2018-01-16] MEDS ORDERED: PHARMACY ORDERED LAB-VANCO TROUGH ONE (09:45)
--- NOTE | 2018-01-16 11:00 | PD.ONC.PN ---
Subjective Subjective Remarks Afebrile Patient resting in bed currently sedated however awake Per [employer], they are planning to try her on CPAP shortly She received pheresis late last night The patient is nodding her head yes and no appropriately to questions Objective Data Date Time Temp Pulse Resp B/P (MAP) Pulse Ox O2 Delivery O2 Flow Rate FiO2 01/16/18 09:41 79 30 01/16/18 09:41 30 01/16/18 06:00 51 01/16/18 04:26 96 30 01/16/18 04:00 49 01/16/18 04:00 98.4 49 12 135/77 (96) 100 01/16/18 04:00 40 01/16/18 02:41 12 01/16/18 02:00 67 01/16/18 00:00 69 01/16/18 00:00 40 01/16/18 00:00 98.0 57 12 145/66 (92) 100 01/15/18 23:35 100 30 01/15/18 22:17 12 01/15/18 22:00 66 01/15/18 20:00 57 01/15/18 20:00 98.1 57 12 120/66 (84) 100 01/15/18 20:00 40 01/15/18 18:00 60 01/15/18 17:22 30 01/15/18 17:19 94 30 01/15/18 17:00 62 01/15/18 16:00 97.7 53 12 114/64 (81) 100 01/15/18 16:00 40 01/15/18 16:00 53 01/15/18 15:00 50 01/15/18 14:00 51 01/15/18 13:00 57 01/15/18 12:03 100 30 01/15/18 12:00 97.9 51 12 121/69 (86) 100 01/15/18 12:00 51 01/15/18 12:00 40 01/15/18 11:00 53 01/16/18 01/16/18 01/16/18 07:00 15:00 23:00 Intake Total 874 ml Output Total 1500 ml Balance -626 ml Result Diagram: 01/16/18 0445 01/16/18 0445 Laboratory Results Laboratory Tests Test 01/16/18 04:45 01/16/18 09:00 White Blood Count 12.7 TH/MM3 Red Blood Count 3.45 MIL/MM3 Hemoglobin 8.9 GM/DL Hematocrit 28.3 % Mean Corpuscular Volume 82.1 FL Mean Corpuscular Hemoglobin 25.9 PG Mean Corpuscular Hemoglobin Concent 31.6 % Red Cell Distribution Width 25.3 % Platelet Count 178 TH/MM3 Mean Platelet Volume 9.2 FL Neutrophils (%) (Auto) 89.4 % Lymphocytes (%) (Auto) 4.6 % Monocytes (%) (Auto) 5.8 % Eosinophils (%) (Auto) 0.0 % Basophils (%) (Auto) 0.2 % Neutrophils # (Auto) 11.4 TH/MM3 Lymphocytes # (Auto) 0.6 TH/MM3 Monocytes # (Auto) 0.7 TH/MM3 Eosinophils # (Auto) 0.0 TH/MM3 Basophils # (Auto) 0.0 TH/MM3 CBC Comment AUTO DIFF Differential Comment AUTO DIFF CONFIRMED Prothrombin Time 12.4 SEC Prothromb Time International Ratio 1.2 RATIO Activated Partial Thromboplast Time 50.7 SEC Fibrinogen 117 mg/dL Blood Urea Nitrogen 9 MG/DL Creatinine 0.26 MG/DL Random Glucose 123 MG/DL Calcium Level 8.1 MG/DL Sodium Level 143 MEQ/L Potassium Level 3.5 MEQ/L Chloride Level 107 MEQ/L Carbon Dioxide Level 31.3 MEQ/L Anion Gap 5 MEQ/L Estimat Glomerular Filtration Rate 289 ML/MIN Vancomycin Level Trough 19.3 MCG/ML Culture Results Microbiology Date/Time Source Procedure Growth Status 01/13/18 17:15 Stool Stool Stool Occult Blood (MANUELITO) - Final HEMOCCULT POSITIVE Complete Administered Medications Medications (Trade) Dose Ordered Sig/Gómez Route PRN Reason Start Time Stop Time Status Last Admin Dose Admin Aspirin (Aspirin Chew) 81 mg DAILY CHEW 01/09/18 09:00 01/16/18 08:36 Ferrous Sulfate (Ferrous Sulfate) 325 mg BID@12,17 PO 01/09/18 12:00 01/15/18 18:00 Prednisone (Deltasone) 5 mg DAILY PO 01/09/18 09:00 Future Hold 01/10/18 08:20 Pyridostigmine Minerva (Mestinon) 120 mg TIDAC PO 01/09/18 08:00 01/16/18 08:36 Lactobacillus Acidophilus (Lactinex) 1 tab DAILY PO 01/09/18 09:00 01/16/18 08:36 Acetaminophen/ Butalbital/ Caffeine (Fioricet 325-50-40) 1 tab Q6H PRN PO HEADACHE 01/08/18 23:15 01/11/18 05:50 Sodium Chloride (NS Flush) 2 ml UNSCH PRN IV FLUSH FLUSH AFTER USING IV ACCESS 01/08/18 23:30 01/12/18 08:13 Sodium Chloride (NS Flush) 2 ml BID IV FLUSH 01/09/18 09:00 01/16/18 08:35 Acetaminophen (Tylenol) 650 mg Q6H PRN PO FEVER >101F 01/08/18 23:30 01/16/18 01:41 Famotidine (Pepcid) 20 mg DAILY PO 01/09/18 09:00 01/16/18 08:36 Ondansetron HCl (Zofran Inj) 4 mg Q6H PRN IV PUSH NAUSEA OR VOMITING 01/08/18 23:30 01/10/18 13:09 Albuterol/ Ipratropium (Duoneb Neb) 1 ampule Q2HR NEB PRN INH WHEEZING 01/08/18 23:30 01/09/18 06:48 Enoxaparin Sodium (Lovenox Inj) 30 mg Q24H SQ 01/08/18 23:30 01/15/18 23:03 Miscellaneous Information 1 Q361D XX 01/08/18 23:30 01/08/18 23:30 Chlorhexidine Gluconate (Chlorhexidine 2% Cloth) Taper DAILY@04 TOP 01/09/18 04:00 01/05/19 03:59 01/16/18 03:24 Senna/Docusate Sodium (Bonita-Colace) 1 tab BID PO 01/09/18 09:00 01/16/18 08:36 Magnesium Hydroxide (Milk Of Magnesia Liq) 30 ml Q12H PRN PO Mild constipation 01/08/18 23:30 01/10/18 17:53 Potassium Chloride 100 ml @ 50 mls/hr Q2H PRN IV For Potassium 2.8 - 3.2 mEq/L 01/09/18 00:00 01/14/18 05:39 Potassium Chloride 100 ml @ 25 mls/hr UNSCH PRN IV For Potassium 3.3 - 3.5 mEq/L 01/09/18 00:00 01/10/18 08:19 Potassium Phosphate (K-Phos) 2,000 mg Q4H PRN PO For Phosphorus < 2.5 mg/dL 01/09/18 00:00 01/13/18 22:10 Sumatriptan Succinate (Imitrex Inj) 6 mg Q12H PRN SQ HEADACHE/ MIGRAINE 01/09/18 03:45 01/15/18 21:17 Chlorhexidine Gluconate (Peridex 0.12% Liq) 15 ml BID@08,20 MT 01/09/18 08:00 01/16/18 08:35 Labetalol HCl (Trandate Inj) 10 mg Q2HR PRN IV PUSH SBP greater than 160mm Hg 01/09/18 08:00 01/10/18 21:23 Lorazepam (Ativan Inj) 2 mg Q4H PRN IV PUSH agitation 01/09/18 08:30 01/16/18 08:36 Methylprednisolone Sodium Succinate (SoluMEDROL INJ) 40 mg Q8H IV PUSH 01/11/18 09:00 01/16/18 08:36 Budesonide (Pulmicort Respule Neb) 0.5 mg Q12HR NEB NEB 01/11/18 08:45 01/16/18 08:00 Aztreonam 2000 mg/ Sodium Chloride 100 ml @ 200 mls/hr Q8H IV 01/11/18 11:00 01/16/18 01:41 Metronidazole 100 ml @ 100 mls/hr Q8H IV 01/11/18 10:00 01/16/18 01:41 Mycophenolate Mofetil (Cellcept Liq) 500 mg BID PO 01/11/18 21:00 01/16/18 08:37 Protein (Beneprotein Powder) 1 pack TID G-TUBE 01/12/18 13:00 01/16/18 08:37 Insulin Aspart (NovoLOG SUPPLEMENTAL SCALE) 1 Q4H SQ 01/13/18 09:00 01/15/18 21:00 Albumin Human 2,600 ml @ 250 mls/hr Q48H IV 01/13/18 13:00 01/21/18 23:23 01/16/18 01:33 Calcium Gluconate 3 gm/Sodium Chloride 280 ml @ 90 mls/hr Q48H IV 01/13/18 13:00 01/21/18 16:07 01/16/18 01:33 Anticoagulant Citrate Dextose Cindy A (Acd Formula Inj) 1,000 ml Q48H OTHER 01/13/18 13:00 01/23/18 18:00 01/13/18 13:00 Vancomycin HCl (VANCOMYCIN for oral use only) 250 mg QID PO 01/13/18 18:00 01/16/18 08:36 Albuterol/ Ipratropium (Duoneb Neb) 1 ampule Q6HR NEB NEB 01/14/18 16:00 01/16/18 09:41 Sodium Chloride 1,000 ml @ 84 mls/hr [id number] IV 01/14/18 12:00 01/15/18 23:06 Vancomycin HCl 1200 mg/Sodium Chloride 262 ml @ 250 mls/hr Q8H IV 01/15/18 02:00 01/16/18 02:20 Fentanyl Citrate 250 ml @ 5 mls/hr TITRATE PRN IV Sedation 01/15/18 15:00 01/16/18 03:23 Propofol 100 ml @ 1.56 mls/hr TITRATE PRN IV SEDATION 01/15/18 15:00 01/16/18 03:22 Objective Remarks GENERAL: Young female resting in bed intubated and sedated SKIN: Warm and dry. HEAD: Normocephalic. EYES: No injection or drainage. NECK: Supple, trachea midline. CARDIOVASCULAR: Sinus bradycardia on monitor RESPIRATORY: Clear anteriorly. Mechanically ventilated. On 40% FiO2 GASTROINTESTINAL: Abdomen soft, non-tender, nondistended. EXTREMITIES: No cyanosis, or edema. MUSCULOSKELETAL: Adequate muscle tone. NEUROLOGICAL: Sedated but awake. Nodding head yes and no appropriately Assessment/Plan Assessment 1. Myastenia gravis exacerbation: Patient had pheresis #2 of 5 yesterday. 2. Off day today. Next pheresis planned for Wednesday 01/17 3. Continue to monitor labs including CBC, BMP and coags Plan The exam, history, and the medical decision-making described in the above note were completed with the assistance of the mid-level provider. I reviewed and agree with the findings presented. I attest that I had a [id number] encounter with the patient on the same day, and personally performed and documented my assessment and findings in the medical record. Awake, trying to mouth out words, eager to have ET tube out. Plan for pheresis today. Hypercalcermia addressed with calcium during pheresis. Attending Statement The exam, history, and the medical decision-making described in the above note were completed with the assistance of the mid-level provider. I reviewed and agree with the findings presented. I attest that I had a [id number] encounter with the patient on the same day, and personally performed and documented my assessment and findings in the medical record. Discussed with pt's nurse and sight mounter. Tolerating Bipap. Stronger, asking continuously when to remove ET tube. Tolerated pheresis, continue to show response. Haydee Rollins Jan 16, 2018 11:00 Jodie Callahan MD Jan 16, 2018 18:01
[2018-01-16] MEDS: FERROUS SULFATE 325 MG (65 MG ELEMENTAL IRON) TAB PO SCH ×2 (11:34→19:00)
[2018-01-16] MEDS: VANCOMYCIN 1,000 MG/NS 250 ML IV SCH ×4 (12:17→21:05)
[2018-01-16] MEDS ORDERED: ACETAMINOPHEN 650 MG/20.3 ML UDC PO PRN (13:30)
[2018-01-16] MEDS ORDERED: RESP: ALBUTEROL 2.5 MG/3 ML NEB (PRN) NEB (13:30)
--- NOTE | 2018-01-16 13:40 | HHI.CCPN ---
Subjective Remarks/Hospital Course 01/08: 42-year-old unfortunate female presenting to the emergency department for evaluation of altered mental status. This is her seventh admission within the last 5 months for the similar symptoms. Per EMS patient's ex- found her in bed yesterday, apparently at that time she was still verbal. When he returned home this afternoon she was not responding, stiff and moaning. H&P is limited due to patient's clinical condition. Her last admission was 2 weeks ago with a diagnosis of myasthenia gravis exacerbation. Per ED documentation report she has been sick with flulike symptoms all week including nausea and vomiting and diarrhea. She has been unable to keep down any of her medications. Every time she eats she has a bowel movement. Per ED reports she also intentionally overdosed with Midodrin. 01/09: Patient agitated and anxious this morning not verbalizing. Appeared to have some tachypnea and dyspnea. Patient became extremely anxious and agitated with heart rate going up to the 160s and blood pressure 170s systolic. She had dilated pupils bilaterally despite Ativan 2 mg IV given earlier to control anxiety, probably secondary to cocaine and amphetamines in her system as her tox screen came back positive for cocaine, amphetamines, barbiturates. Patient was emergently intubated using etomidate for sedation and placed on mechanical ventilation. No neuromuscular blockade was used during intubation in view of myasthenia gravis. Her heart rate came down to 150s following intubation. 1 L normal saline fluid bolus was ordered following which heart rate came down to 120s. 01/10: Resting comfortably on sedation, awake and alert, orally intubated on mechanical ventilation. On propofol Versed and fentanyl drips. Following commands appropriately, moving all 4 extremities. Denies any shortness of breath by shaking her head. 01/11: I was emergently called to the bedside today as patient was unresponsive with agonal breathing hardly 2-3 breaths per minute, and severe bradycardia, HR down to 25/mt, impending cardio pulmonary arrest. Epinephrine 1 mg IV push given stat, followed by one ampule of bicarb and 1 g of calcium chloride. Patient was intubated emergently without any medication as she was comatose. Apparently was hypoxic agitated requiring BiPAP but noncompliant. Received Ativan 2 mg at after midnight and also sent 1 dose of Xanax apparently for agitation 01/12: Remains intubated sedated but ventilator mechanics has improved. FiO2 down to 50%. On propofol and Versed gtt, but wide awake following commands. Off pressors. remains on full alignment 50,000 ng. Start weaning Flolan per protocol 01/13: Persistent muscular weakness due to myasthenia despite IVIG and steroids. Hematology consult to start plasma exchange alternate days 5. Vas-Cath placed. Continue to wean Flolan per protocol. Chest x-ray with persistent right lower lobe pneumonia 01/14: Started on plasma exchange therapy yesterday for myasthenia crisis leading to respiratory arrest. Currently also receiving treatment for MRSA pneumonia and C. difficile colitis. Myasthenia crisis most likely precipitated by acute infection, pneumonia. Significant muscular weakness persists, patient remains intubated and critically ill. Weaned off Flolan. Oxygenating well, will start CPAP trial to exercise respiratory muscles-unable to extubate due to severe and persistent muscular weakness 01/15: failed CPAP after only 10 minutes for weakness, tachypnea, shallow tidal volume breaths. remains sedated. need to start checking NIFs daily and aggressive PT/OT to prevent further weakness and deconditioning. Subjective 01/16: Requesting additional pain medication. Awake and alert. Currently on scheduled #2 plasmapheresis. Plan to restart Wednesday 01/17. Positive BM Objective Vital Signs Date Time Temp Pulse Resp B/P (MAP) Pulse Ox O2 Delivery O2 Flow Rate FiO2 01/16/18 09:41 79 30 01/16/18 06:00 51 01/16/18 04:00 98.4 12 135/77 (96) Intake and Output 01/16/18 01/16/18 01/17/18 08:00 16:00 00:00 Intake Total 874 ml Output Total 1500 ml Balance -626 ml Result Diagram: 01/16/18 0445 01/16/18 0445 Other Results Microbiology Date/Time Source Procedure Growth Status 01/11/18 11:31 Blood Peripheral Aerobic Blood Culture - Final NO GROWTH IN 5 DAYS Complete 01/11/18 11:31 Blood Peripheral Anaerobic Blood Culture - Final NO GROWTH IN 5 DAYS Complete 01/13/18 17:15 Stool Stool Stool Occult Blood (MANUELITO) - Final HEMOCCULT POSITIVE Complete 01/12/18 14:00 Sputum Endotracheal Gram Stain - Final Complete 01/12/18 14:00 Sputum Culture - Final S. Aureus Mrsa Complete 01/11/18 12:20 Urine Catheterized Urine Urine Culture - Final NO GROWTH IN 48 HOURS. Complete Imaging Last Impressions Chest X-Ray 01/15/18 0600 Signed Impressions: Service Date/Time: Monday, January 15, 2018 04:54 - CONCLUSION: No change in right lung base atelectasis versus consolidation. Increased left lung base atelectasis versus consolidation. Francois Smith MD Abdomen X-Ray 01/14/18 1007 Signed Impressions: Service Date/Time: Sunday, January 14, 2018 10:11 - CONCLUSION: No dilated loops of small or large bowel. Pilo Walker MD Objective Remarks GEN: 42-year-old female currently orotracheally intubated HEENT: Pupils 2 mm sluggish. Orotracheally intubated Neck: No JVD Chest/Pulm: Air entry diminished at the right base with coarse crackles. Mild amount of secretions CVS: RRR. S1, S3 no S4 without murmur GI/abdomen: soft, nontender, nondistended. no guarding. NEURO: Pupils are reactive. On sedation eyes are spontaneously open. Follows 4. Muscle power 4/5 in upper extremities proximally and distally,2-3/5 in all lower extremity muscles. Some ptosis persist. Barely able to lift head off the pillow Urinary Catheter: Yes Assessment to: Continue Ledezma insert reason: Prolonged Immobilization Vascular Central Line Catheter: No Assessment to: Continue A/P Assessment and Plan Neuro: Acute Myasthenia crisis Myasthenia gravis Acute toxic metabolic metabolic encephalopathy UDS + cocaine/amphetamine/barbiturates Migraine headaches Chronic opioid use Chronic benzodiazepine use Currently on fentanyl drip at 250 mcg an hour for analgesia while intubated Goal of RA SS of -1-0 Daily sedation vacation -Started plasma exchange 01/13/18. Received 2 out of 5. Plan to restart 01/17. Appreciate hematology and neurology input -Plan for 5 sessions of plasma exchange every alternate day -IVIG completed course -Mycophenolate Mofetil 500 mg twice daily, IV methylprednisolone succinate 40 mg IV twice daily, Pyridostigmine Braymer 120 mg p.o. 3 times daily On prednisone 5 mg daily at home -Further recommendations per neurologist -Holding gabapentin 900 mg 3 times daily for neuropathy -Holding sumatriptan inhalation as needed for migraine Holding acetaminophen/due to ball/caffeine 325/50/41 tablet every 6 hours as needed migraine headache -Propofol, fentanyl infusion for sedation and pain control On chronic oxycodone/acetaminophen 10/201 tablet every 6 hours as needed pain On chronic alprazolam 1 mg every 6 hours as needed -Citalopram 40 mg daily held in view of concern regarding overdose. -Psych has seen RESP: s/p Respiratory arrest secondary to myasthenia crisis Acute hypoxemic and hypercarbic respiratory failure Right lower lobe pneumonia/MRSA -Emergently intubated and placed on full mechanical ventilation PRVC mode on 01/11 -Myasthenia crisis and respiratory arrest most likely secondary to MRSA pneumonia, and sepsis -Albuterol/ipratropium aerosols b every 6 hours scheduled with albuterol aerosols every 2 hours and as needed, Ventilator bundle -Daily SBT without extubation, severe muscular weakness will not permit extubation - trend daily NIFs - PT/OT consults. OOB to stretcher chair daily to attempt to prevent further deconditioning. CVS: Severe bradycardia most likely from severe respiratory acidosis Sinus tachycardia now- improving. -Severe bradycardia most likely secondary to severe respiratory acidosis, improved rapidly after intubation -Received epinephrine bicarb and calcium -Slightly elevated troponin secondary to above -IV hydration-change normal saline to half-normal saline due to hypernatremia, As needed labetalol when necessary for hypertension, tachycardia. Holding Midorine 5 mg twice daily GI: C. difficile colitis Heme positive stools -Lansoprazole 30 mg by tube daily -Tube feeds with Jevity 1.5 goal 55 cc an hour, free mL every 6 hours -Bowel regimen with docusate sodium/senna 1 tablet twice daily -On p.o. vancomycin 250 mg 4 times daily and IV metronidazole for C. difficile colitis /Endo: -Electrolytes replacement per ICU protocol -Strict intake output Please replace Ledezma catheter patient with urinary retention Heme: Leukocytosis Anemia/normocytic -Continue Ferrous Sulfate 325 mg twice daily/home medication ID: Right lower lobe pneumonia/MRSA C. difficile colitis, recurrent Severe sepsis Continue IV vancomycin, aztreonam, IV metronidazole. Discontinue Levaquin P.o. vancomycin started /y for positive C. difficile colitis Nasal aspirate negative for influenza A and B neg. Urine for strep pneumo and Legionella antigen negative. Sputum /+ for MRSA in sputum Blood cultures 01/11/, 01/10 and 01/09 all no growth to date DVT GI prophylaxis -SCDs -Enoxaparin 30 mg subcu daily -Lansoprazole Level 2 follow-up Chirag Diaz MD Jan 16, 2018 13:40
[2018-01-16 14:16] LABS: BILIRUBIN, URINE NEG (NEG); BLOOD, URINE NEG (NEG); GLUCOSE,URINE NEG (NEG); KETONE, URINE NEG (NEG); MUCUS URINE FEW /lpf (OCC); NITRITE,URINE NEG (NEG); SQUAMOUS EPITHELIAL CELL URINE <1 /hpf (0-5); URINE COLOR LIGHT-YELLOW (YELLW/STRAW); URINE LEUKOCYTE ESTERASE NEG (NEG)
[2018-01-16] MEDS: MIDAZOLAM 100 MG/100 ML INJ 100 ML IV PRN (15:26)
[2018-01-16] MEDS: SODIUM CHLOR 0.45% 1000 ML INJ 1,000 ML IV SCH (21:04)
[2018-01-16] MEDS: ARTIFICIAL TEARS OPTH SOLN 15 ML BTL EACH EYE SCH (21:04)
[2018-01-16] MEDS: ENOXAPARIN SODIUM 30 MG/0.3 ML SYRINGE SQ SCH (21:58)
[2018-01-17] VITALS (16 sets, daily range): BP systolic 109–130; BP diastolic 59–78; PULSE 46–78; RESP 12–22; TEMP 97.8–98.1; O2SAT 93–100
[2018-01-17] MEDS: metroNIDAZOLE 500 MG INJ 100 ML IV SCH ×3 (00:30→18:08)
[2018-01-17] MEDS: methylPREDNISolone SOD SUCC 125 MG/2 ML VIAL IV PUSH SCH ×3 (00:30→18:09)
[2018-01-17] MEDS: MIDAZOLAM 100 MG/100 ML INJ 100 ML IV PRN ×3 (00:30→22:29)
[2018-01-17] MEDS: INSULIN ASPART SUPPLEMENTAL SCALE SQ SCH ×6 (01:00→21:00)
[2018-01-17] MEDS: VANCOMYCIN 1,000 MG/NS 250 ML IV SCH ×4 (04:00→12:13)
[2018-01-17] MEDS: RESP: ALBUTEROL 2.5 MG/IPRATROPIUM 0.5 MG NEB (SCH) NEB ×4 (04:00→22:04)
[2018-01-17] MEDS: AZTREONAM INJ 2,000 MG in SODIUM CHLORIDE 0.9% INJ 100 ML IV SCH ×3 (04:00→22:28)
[2018-01-17] MEDS: CHLORHEXIDINE GLUCONATE 2 % 1 PACK (2 CLOTHS) TOP SCH (04:00)
[2018-01-17] MEDS: ARTIFICIAL TEARS OPTH SOLN 15 ML BTL EACH EYE SCH ×3 (04:01→22:28)
[2018-01-17 04:18] LABS: AUTOMATED NEUTROPHIL # 8.6 TH/MM3 (1.8-7.7); BASOPHIL % 0.1 % (0.0-2.0); HEMOGLOBIN 9.9 GM/DL (11.6-15.3); LYMPH % 5.8 % (9.0-44.0); LYMPHOCYTE # 0.6 TH/MM3 (1.0-4.8); MEAN CELL VOLUME 81.8 FL (80.0-100.0); MEAN CORPUSCULAR HEMOGLOBIN 26.2 PG (27.0-34.0); MEAN PLATELET VOLUME 9.2 FL (7.0-11.0); MONO % 3.6 % (0.0-8.0); MONOCYTE # 0.3 TH/MM3 (0-0.9); NEUT % 90.5 % (16.0-70.0); PLATELET COUNT 233 TH/MM3 (150-450); RED BLOOD COUNT 3.79 MIL/MM3 (4.00-5.30); RED CELL DISTRIBUTION WIDTH 25.1 % (11.6-17.2); WHITE BLOOD COUNT 9.6 TH/MM3 (4.0-11.0)
[2018-01-17 04:27] LABS: PROTHROMBIN TIME - PATIENT 10.3 SEC (9.8-11.6)
[2018-01-17 04:37] LABS: CALCIUM 8.1 MG/DL (8.5-10.1); CREATININE 0.3 MG/DL (0.50-1.00); MAGNESIUM 1.9 MG/DL (1.5-2.5); PHOSPHORUS 2.7 MG/DL (2.5-4.9)
--- NOTE | 2018-01-17 05:05 | RADRPT ---
EXAM DATE/TIME: 01/17/2018 03:18 [facility] COMPARISON: CHEST SINGLE AP, January 15, 2018, 4:54. INDICATIONS : Shortness of breath,possible pulmonary disease. MEDICAL HISTORY : Myasthenia gravis SURGICAL HISTORY : Thymectomy ENCOUNTER: Subsequent ACUITY: 1 week PAIN SCORE: Non-responsive. LOCATION: Bilateral chest FINDINGS: A single view of the chest demonstrates bibasilar densities greater right lower lobe. Endotracheal tu be, nasogastric, right jugular central line and left-sided port are stable in position.. The cardiom ediastinal contours are unremarkable. Osseous structures are intact. CONCLUSION: Stable bibasilar densities. Reginald Fisher MD on January 17, 2018 at 5:02 Board Certified Radiologist. This report was verified electronically.
[2018-01-17] MEDS: PROPOFOL 1000 MG/100 ML INJ 100 ML IV PRN ×4 (06:10→22:29)
[2018-01-17 07:21] LABS: OVALOCYTES 1+ (NORMAL); TEARDROP RBCS 1+ (NORMAL)
[2018-01-17] MEDS: fentaNYL DRIP 250 ML IV PRN (07:25)
[2018-01-17] MEDS: RESP: BUDESONIDE 0.5 MG/2 ML NEB NEB SCH ×2 (08:29→22:04)
[2018-01-17] MEDS: LANSOPRAZOLE SOLUTAB 30 MG TAB NG SCH (08:49)
[2018-01-17] MEDS: ASPIRIN 81 MG CHEW TAB CHEW SCH (08:49)
[2018-01-17] MEDS: PYRIDOSTIGMINE BROMIDE 60 MG TAB PO SCH ×3 (08:49→18:10)
[2018-01-17] MEDS: LACTOBACILLUS ACIDOPHILUS TAB PO SCH (08:50)
[2018-01-17] MEDS: DOCUSATE SODIUM 50 MG/SENNA 8.6 MG TAB PO SCH ×2 (08:50→21:00)
[2018-01-17] MEDS: SODIUM CHLORIDE 0.9% FLUSH 10 ML FLUSH IV FLUSH SCH ×2 (08:51→22:27)
[2018-01-17] MEDS: BENEPROTEIN POWDER 1 PACK G-TUBE SCH ×3 (08:51→18:08)
[2018-01-17] MEDS: VANCOMYCIN 500 MG VIAL (FOR ORAL USE ONLY) PO SCH ×4 (08:52→22:26)
[2018-01-17] MEDS: MYCOPHENOLATE MOFETIL 200 MG/ML 175 ML BOTTLE PO SCH ×2 (11:26→22:27)
[2018-01-17] MEDS: FERROUS SULFATE 325 MG (65 MG ELEMENTAL IRON) TAB PO SCH ×2 (11:28→18:10)
[2018-01-17] MEDS: CHLORHEXIDINE 0.12% (ORAL KIT) 15 ML CUP MT SCH ×2 (11:30→22:26)
[2018-01-17] MEDS ORDERED: PHARMACY ORDERED LAB ONE (11:45)
[2018-01-17] MEDS: SODIUM CHLOR 0.45% 1000 ML INJ 1,000 ML IV SCH ×2 (12:20→22:28)
[2018-01-17] MEDS: CALCIUM GLUCONATE IV SCH (13:00)
[2018-01-17] MEDS: ANTICOAGULANT CITRATE DEXTROSE SOLN-A 1L OTHER SCH (13:00)
[2018-01-17] MEDS: SODIUM CHLOR 0.9% IV SCH (13:00)
[2018-01-17] MEDS: ALBUMIN 5% IV SCH (13:00)
[2018-01-17] MEDS ORDERED: POTASSIUM CHLORIDE 20 MEQ PWD PACKET PO ONE (13:15)
[2018-01-17] MEDS ORDERED: MAGNESIUM SULFATE 1 GM PREMIX 100 ML IV ONE (13:15)
--- NOTE | 2018-01-17 13:18 | HHI.CCPN ---
Subjective Remarks/Hospital Course 01/08: 42-year-old unfortunate female presenting to the emergency department for evaluation of altered mental status. This is her seventh admission within the last 5 months for the similar symptoms. Per EMS patient's ex- found her in bed yesterday, apparently at that time she was still verbal. When he returned home this afternoon she was not responding, stiff and moaning. H&P is limited due to patient's clinical condition. Her last admission was 2 weeks ago with a diagnosis of myasthenia gravis exacerbation. Per ED documentation report she has been sick with flulike symptoms all week including nausea and vomiting and diarrhea. She has been unable to keep down any of her medications. Every time she eats she has a bowel movement. Per ED reports she also intentionally overdosed with Midodrin. 01/09: Patient agitated and anxious this morning not verbalizing. Appeared to have some tachypnea and dyspnea. Patient became extremely anxious and agitated with heart rate going up to the 160s and blood pressure 170s systolic. She had dilated pupils bilaterally despite Ativan 2 mg IV given earlier to control anxiety, probably secondary to cocaine and amphetamines in her system as her tox screen came back positive for cocaine, amphetamines, barbiturates. Patient was emergently intubated using etomidate for sedation and placed on mechanical ventilation. No neuromuscular blockade was used during intubation in view of myasthenia gravis. Her heart rate came down to 150s following intubation. 1 L normal saline fluid bolus was ordered following which heart rate came down to 120s. 01/10: Resting comfortably on sedation, awake and alert, orally intubated on mechanical ventilation. On propofol Versed and fentanyl drips. Following commands appropriately, moving all 4 extremities. Denies any shortness of breath by shaking her head. 01/11: I was emergently called to the bedside today as patient was unresponsive with agonal breathing hardly 2-3 breaths per minute, and severe bradycardia, HR down to 25/mt, impending cardio pulmonary arrest. Epinephrine 1 mg IV push given stat, followed by one ampule of bicarb and 1 g of calcium chloride. Patient was intubated emergently without any medication as she was comatose. Apparently was hypoxic agitated requiring BiPAP but noncompliant. Received Ativan 2 mg at after midnight and also sent 1 dose of Xanax apparently for agitation 01/12: Remains intubated sedated but ventilator mechanics has improved. FiO2 down to 50%. On propofol and Versed gtt, but wide awake following commands. Off pressors. remains on full alignment 50,000 ng. Start weaning Flolan per protocol 01/13: Persistent muscular weakness due to myasthenia despite IVIG and steroids. Hematology consult to start plasma exchange alternate days . Vas-Cath placed. Continue to wean Flolan per protocol. Chest x-ray with persistent right lower lobe pneumonia 01/14: Started on plasma exchange therapy yesterday for myasthenia crisis leading to respiratory arrest. Currently also receiving treatment for MRSA pneumonia and C. difficile colitis. Myasthenia crisis most likely precipitated by acute infection, pneumonia. Significant muscular weakness persists, patient remains intubated and critically ill. Weaned off Flolan. Oxygenating well, will start CPAP trial to exercise respiratory muscles-unable to extubate due to severe and persistent muscular weakness 01/15: failed CPAP after only 10 minutes for weakness, tachypnea, shallow tidal volume breaths. remains sedated. need to start checking NIFs daily and aggressive PT/OT to prevent further weakness and deconditioning. 01/16: Requesting additional pain medication. Awake and alert. Currently on scheduled #2/ plasmapheresis. Plan to restart Wednesday 01/17. Positive BM Subjective 01/17: Afebrile. Scheduled for plasmapheresis today. We will wean sedation and attempt to extubate postprocedure. Strength much improved. Objective Vital Signs Date Time Temp Pulse Resp B/P (MAP) Pulse Ox O2 Delivery O2 Flow Rate FiO2 01/17/18 12:00 30 01/17/18 12:00 51 01/17/18 12:00 97.8 17 130/70 (90) 98 Intake and Output 01/17/18 01/17/18 01/18/18 08:00 16:00 00:00 Intake Total 1055 ml Output Total 2400 ml Balance -1345 ml Result Diagram: 01/17/18 0345 01/17/18 0345 Other Results Microbiology Date/Time Source Procedure Growth Status 01/11/18 11:31 Blood Peripheral Aerobic Blood Culture - Final NO GROWTH IN 5 DAYS Complete 01/11/18 11:31 Blood Peripheral Anaerobic Blood Culture - Final NO GROWTH IN 5 DAYS Complete 01/13/18 17:15 Stool Stool Stool Occult Blood (MAN[place]O) - Final HEMOCCULT POSITIVE Complete 01/12/18 14:00 Sputum Endotracheal Gram Stain - Final Complete 01/12/18 14:00 Sputum Culture - Final S. Aureus Mrsa Complete 01/11/18 12:20 Urine Catheterized Urine Urine Culture - Final NO GROWTH IN 48 HOURS. Complete Imaging Last Impressions Chest X-Ray 01/17/18 0600 Signed Impressions: Service Date/Time: Wednesday, January 17, 2018 03:18 - CONCLUSION: Stable bibasilar densities. Reginald Fisher MD Abdomen X-Ray 01/14/18 1007 Signed Impressions: Service Date/Time: Sunday, January 14, 2018 10:11 - CONCLUSION: No dilated loops of small or large bowel. Pilo Walker MD Objective Remarks GEN: 42-year-old female currently orotracheally intubated HEENT: Pupils 2 mm sluggish. Orotracheally intubated Neck: No JVD Chest/Pulm: Air entry diminished at the right base with coarse crackles. Mild amount of secretions CVS: RRR. S1, S3 no S4 without murmur GI/abdomen: soft, nontender, nondistended. no guarding. NEURO: Pupils are reactive. On sedation eyes are spontaneously open. Follows 4. Muscle power 4/5 in upper extremities proximally and distally,2-3/5 in all lower extremity muscles. Some ptosis persist. Barely able to lift head off the pillow A/P Assessment and Plan Neuro: Acute Myasthenia crisis Myasthenia gravis Acute toxic metabolic metabolic encephalopathy UDS + cocaine/amphetamine/barbiturates Migraine headaches Chronic opioid use Chronic benzodiazepine use Currently on fentanyl drip at 250 mcg an hour for analgesia while intubated. On midazolam drip at 10 mg an hour and propofol drip at 50 mg/kg/min Goal of RA SS of -1-0 Daily sedation vacation -Started plasma exchange 01/13/18. Received 2 out of 5. Plan to restart 01/17. Appreciate hematology and neurology input -Plan for 5 sessions of plasma exchange every alternate day -IVIG completed course -Mycophenolate Mofetil 500 mg twice daily, IV methylprednisolone succinate 40 mg IV twice daily, Pyridostigmine [place] 120 mg p.o. 3 times daily On prednisone 5 mg daily at home -Further recommendations per neurologist -Holding gabapentin 900 mg 3 times daily for neuropathy -Holding sumatriptan inhalation as needed for migraine Holding acetaminophen/due to ball/caffeine 325/50/41 tablet every 6 hours as needed migraine headache -Propofol, fentanyl infusion for sedation and pain control On chronic oxycodone/acetaminophen 10/201 tablet every 6 hours as needed pain On chronic alprazolam 1 mg every 6 hours as needed -Citalopram 40 mg daily held in view of concern regarding overdose. -Psych has seen RESP: s/p Respiratory arrest secondary to myasthenia crisis Acute hypoxemic and hypercarbic respiratory failure Right lower lobe pneumonia/MRSA -Emergently intubated and placed on full mechanical ventilation PRVC mode on 01/11 -Myasthenia crisis and respiratory arrest most likely secondary to MRSA pneumonia, and sepsis -Albuterol/ipratropium aerosols b every 6 hours scheduled with albuterol aerosols every 2 hours and as needed, Ventilator bundle -Daily SBT without extubation, severe muscular weakness will not permit extubation - trend daily NIFs - PT/OT consults. OOB to stretcher chair daily to attempt to prevent further deconditioning. CVS: Severe bradycardia most likely from severe respiratory acidosis Sinus tachycardia now- improving. -Severe bradycardia most likely secondary to severe respiratory acidosis, improved rapidly after intubation -Received epinephrine bicarb and calcium -Slightly elevated troponin secondary to above -IV hydration-change normal saline to half-normal saline due to hypernatremia, As needed labetalol when necessary for hypertension, tachycardia. Holding Midodrine 5 mg twice daily GI: C. difficile colitis Heme positive stools -Lansoprazole 30 mg by tube daily -Tube feeds with Jevity 1.5 goal 55 cc an hour, free [id number] mL every 6 hours -Bowel regimen with docusate sodium/senna 1 tablet twice daily -On p.o. vancomycin 250 mg 4 times daily and IV metronidazole for C. difficile colitis /Endo: -Electrolytes replacement per ICU protocol -Strict intake output Please replace Ledezma catheter patient with urinary retention Heme: Leukocytosis Anemia/normocytic -Continue Ferrous Sulfate 325 mg twice daily/home medication ID: Right lower lobe pneumonia/MRSA C. difficile colitis, recurrent Severe sepsis Continue IV vancomycin, aztreonam, IV metronidazole. Discontinue Levaquin P.o. vancomycin started /y for positive C. difficile colitis Nasal aspirate negative for influenza A and B neg. Urine for strep pneumo and Legionella antigen negative. Sputum 01/12+ for MRSA in sputum Blood cultures 01/11/, 01/10 and 01/09 all no growth to date DVT GI prophylaxis -SCDs -Enoxaparin 30 mg subcu daily -Lansoprazole Level 2 follow-up Chirag Diaz MD Jan 17, 2018 13:18
--- NOTE | 2018-01-17 17:23 | PD.ONC.PN ---
Subjective Subjective Remarks Resting in bed, intubated. Currently undergoing pheresis. Objective Data Date Time Temp Pulse Resp B/P (MAP) Pulse Ox O2 Delivery O2 Flow Rate FiO2 01/17/18 14:00 59 01/17/18 13:43 40 01/17/18 12:00 30 01/17/18 12:00 51 01/17/18 12:00 97.8 51 17 130/70 (90) 98 01/17/18 10:00 46 01/17/18 08:33 99 30 01/17/18 08:00 30 01/17/18 08:00 98.0 52 12 122/71 (88) 95 01/17/18 08:00 52 01/17/18 06:00 57 01/17/18 04:21 96 30 01/17/18 04:00 30 01/17/18 04:00 60 01/17/18 04:00 98.1 60 12 112/59 (76) 93 01/17/18 02:00 51 01/17/18 00:12 96 30 01/17/18 00:00 30 01/17/18 00:00 62 01/17/18 00:00 98.0 62 12 109/61 (77) 96 01/16/18 22:00 68 01/16/18 21:40 94 30 01/16/18 20:00 62 01/16/18 20:00 30 01/16/18 20:00 97.8 62 12 102/58 (73) 93 01/16/18 18:00 59 01/17/18 01/17/18 01/17/18 07:00 15:00 23:00 Intake Total 1055 ml 200 ml 100 ml Output Total 2400 ml Balance -1345 ml 200 ml 100 ml Result Diagram: 01/17/18 0345 01/17/18 0345 Laboratory Results Laboratory Tests Test 01/17/18 03:45 01/17/18 12:20 White Blood Count 9.6 TH/MM3 Red Blood Count 3.79 MIL/MM3 Hemoglobin 9.9 GM/DL Hematocrit 31.0 % Mean Corpuscular Volume 81.8 FL Mean Corpuscular Hemoglobin 26.2 PG Mean Corpuscular Hemoglobin Concent 32.0 % Red Cell Distribution Width 25.1 % Platelet Count 233 TH/MM3 Mean Platelet Volume 9.2 FL Neutrophils (%) (Auto) 90.5 % Lymphocytes (%) (Auto) 5.8 % Monocytes (%) (Auto) 3.6 % Eosinophils (%) (Auto) 0.0 % Basophils (%) (Auto) 0.1 % Neutrophils # (Auto) 8.6 TH/MM3 Lymphocytes # (Auto) 0.6 TH/MM3 Monocytes # (Auto) 0.3 TH/MM3 Eosinophils # (Auto) 0.0 TH/MM3 Basophils # (Auto) 0.0 TH/MM3 CBC Comment AUTO DIFF Differential Comment AUTO DIFF CONFIRMED Tear Drop Cells 1+ Ovalocytes 1+ Prothrombin Time 10.3 SEC Prothromb Time International Ratio 1.0 RATIO Activated Partial Thromboplast Time 27.5 SEC Fibrinogen 236 mg/dL Blood Urea Nitrogen 7 MG/DL Creatinine 0.30 MG/DL Random Glucose 157 MG/DL Calcium Level 8.1 MG/DL Phosphorus Level 2.7 MG/DL Magnesium Level 1.9 MG/DL Sodium Level 144 MEQ/L Potassium Level 3.5 MEQ/L Chloride Level 106 MEQ/L Carbon Dioxide Level 33.0 MEQ/L Anion Gap 5 MEQ/L Estimat Glomerular Filtration Rate 245 ML/MIN Vancomycin Level Trough 7.5 MCG/ML Imaging Studies Last 24 hours Impressions Chest X-Ray 01/17/18 0600 Signed Impressions: Service Date/Time: Wednesday, January 17, 2018 03:18 - CONCLUSION: Stable bibasilar densities. Reginald Fisher MD Administered Medications Medications (Trade) Dose Ordered Sig/Gómez Route PRN Reason Start Time Stop Time Status Last Admin Dose Admin Aspirin (Aspirin Chew) 81 mg DAILY CHEW 01/09/18 09:00 01/17/18 08:49 Ferrous Sulfate (Ferrous Sulfate) 325 mg BID@12,17 PO 01/09/18 12:00 01/17/18 11:28 Prednisone (Deltasone) 5 mg DAILY PO 01/09/18 09:00 Future Hold 01/10/18 08:20 Pyridostigmine [place] (Mestinon) 120 mg TIDAC PO 01/09/18 08:00 01/17/18 11:28 Lactobacillus Acidophilus (Lactinex) 1 tab DAILY PO 01/09/18 09:00 01/17/18 08:50 Sodium Chloride (NS Flush) 2 ml UNSCH PRN IV FLUSH FLUSH AFTER USING IV ACCESS 01/08/18 23:30 01/12/18 08:13 Sodium Chloride (NS Flush) 2 ml BID IV FLUSH 01/09/18 09:00 01/17/18 08:51 Ondansetron HCl (Zofran Inj) 4 mg Q6H PRN IV PUSH NAUSEA OR VOMITING 01/08/18 23:30 01/10/18 13:09 Enoxaparin Sodium (Lovenox Inj) 30 mg Q24H SQ 01/08/18 23:30 01/16/18 21:58 Miscellaneous Information 1 [id number] XX 01/08/18 23:30 01/08/18 23:30 Chlorhexidine Gluconate (Chlorhexidine 2% Cloth) Taper DAILY@04 TOP 01/09/18 04:00 01/05/19 03:59 01/17/18 04:00 Senna/Docusate Sodium ([place]-Colace) 1 tab BID PO 01/09/18 09:00 01/17/18 08:50 Magnesium Hydroxide (Milk Of Magnesia Liq) 30 ml Q12H PRN PO Mild constipation 01/08/18 23:30 01/10/18 17:53 Potassium Chloride 100 ml @ 50 mls/hr Q2H PRN IV For Potassium 2.8 - 3.2 mEq/L 01/09/18 00:00 01/14/18 05:39 Potassium Chloride 100 ml @ 25 mls/hr UNSCH PRN IV For Potassium 3.3 - 3.5 mEq/L 01/09/18 00:00 01/10/18 08:19 Potassium Phosphate (K-Phos) 2,000 mg Q4H PRN PO For Phosphorus < 2.5 mg/dL 01/09/18 00:00 01/13/18 22:10 Sumatriptan Succinate (Imitrex Inj) 6 mg Q12H PRN SQ HEADACHE/ MIGRAINE 01/09/18 03:45 Future Hold 01/15/18 21:17 Chlorhexidine Gluconate (Peridex 0.12% Liq) 15 ml BID@08,20 MT 01/09/18 08:00 01/17/18 11:30 Labetalol HCl (Trandate Inj) 10 mg Q2HR PRN IV PUSH SBP greater than 160mm Hg 01/09/18 08:00 01/10/18 21:23 Lorazepam (Ativan Inj) 2 mg Q4H PRN IV PUSH agitation 01/09/18 08:30 01/16/18 22:00 Methylprednisolone Sodium Succinate (SoluMEDROL INJ) 40 mg Q8H IV PUSH 01/11/18 09:00 01/17/18 08:50 Budesonide (Pulmicort Respule Neb) 0.5 mg Q12HR NEB NEB 01/11/18 08:45 01/17/18 08:29 Aztreonam 2000 mg/ Sodium Chloride 100 ml @ 200 mls/hr Q8H IV 01/11/18 11:00 01/17/18 12:13 Metronidazole 100 ml @ 100 mls/hr Q8H IV 01/11/18 10:00 01/17/18 08:53 Mycophenolate Mofetil (Cellcept Liq) 500 mg BID PO 01/11/18 21:00 01/17/18 11:26 Protein (Beneprotein Powder) 1 pack TID G-[id number] 01/12/18 13:00 01/17/18 12:14 Insulin Aspart (NovoLOG SUPPLEMENTAL SCALE) 1 Q4H SQ 01/13/18 09:00 01/17/18 08:52 Albumin Human 2,600 ml @ 250 mls/hr Q48H IV 01/13/18 13:00 01/21/18 23:23 01/17/18 13:00 Calcium Gluconate 3 gm/Sodium Chloride 280 ml @ 90 mls/hr Q48H IV 01/13/18 13:00 01/21/18 16:07 01/17/18 13:00 Anticoagulant Citrate Dextose Cindy A (Acd Formula Inj) 1,000 ml Q48H OTHER 01/13/18 13:00 01/23/18 18:00 01/17/18 13:00 Vancomycin HCl (VANCOMYCIN for oral use only) 250 mg QID PO 01/13/18 18:00 01/17/18 11:28 Albuterol/ Ipratropium (Duoneb Neb) 1 ampule Q6HR NEB NEB 01/14/18 16:00 01/17/18 15:44 Sodium Chloride 1,000 ml @ 84 mls/hr [id number] IV 01/14/18 12:00 01/17/18 12:20 Fentanyl Citrate 250 ml @ 5 mls/hr TITRATE PRN IV Sedation 01/15/18 15:00 01/17/18 07:25 Propofol 100 ml @ 1.56 mls/hr TITRATE PRN IV SEDATION 01/15/18 15:00 01/17/18 15:29 Vancomycin HCl 1000 mg/Sodium Chloride 250 ml @ 250 mls/hr Q8H IV 01/16/18 12:00 01/17/18 12:13 Artificial Tears (Tears Naturale Opth Soln) 1 drop Q8HR EACH EYE 01/16/18 14:00 01/17/18 14:59 Lansoprazole (Prevacid Odt) 30 mg DAILY NG 01/17/18 09:00 01/17/18 08:49 Midazolam HCl 100 ml @ 2 mls/hr TITRATE PRN IV SEDATION 01/16/18 15:00 01/17/18 11:32 Objective Remarks GENERAL: Well-nourished, well-developed patient. SKIN: Warm and dry. HEAD: Normocephalic. EYES: No scleral icterus. No injection or drainage. NECK: Supple, trachea midline. No JVD or lymphadenopathy. CARDIOVASCULAR: Regular rate and rhythm without murmurs. RESPIRATORY: Breath sounds equal bilaterally. GASTROINTESTINAL: Abdomen soft, non-tender, nondistended. EXTREMITIES: No edema. NEUROLOGICAL: No obvious focal deficit. Awake, alert, and oriented x3. Assessment/Plan Assessment 1. Myastenia gravis exacerbation: s/p IVIG and immunosuppressive with no improvement in symptoms. Currently received #3 of 5 planned plasmapheresis procedures today. Plan for extubation after pheresis. 2. Respiratory distress: due to infection/ myastenia gravis crisis. plan for extubation today after procedure. 3. Anemia: multifactoral. Currently on home iron supplementation. Anemia of inflammation contributing. Tammy Jose MD Jan 17, 2018 17:23
--- NOTE | 2018-01-17 19:46 | HHI.PR ---
Review/Management Diagnosis myasthenia gravis---- depression Plan continue plasmapheresis for total of 5 Diagnosis/Plan: Subjective Subjective Comments No acute events reported tolerating plasmapheresis Active Medications Current Medications Medications (Trade) Dose Ordered Sig/Gómez Route Start Time Stop Time Status Last Admin (Aspirin Chew) 81 mg DAILY CHEW 01/09/18 09:00 01/17/18 08:49 (CeleXA) 40 mg DAILY PO 01/09/18 09:00 Future Hold (Ferrous Sulfate) 325 mg BID@,17 PO 01/09/18 12:00 01/17/18 18:10 (Neurontin) 300 mg Q8H PO 01/08/18 23:15 Future Hold (Deltasone) 5 mg DAILY PO 01/09/18 09:00 Future Hold 01/10/18 08:20 (Mestinon) 120 mg TIDAC PO 01/09/18 08:00 01/17/18 18:10 (Lactinex) 1 tab DAILY PO 01/09/18 09:00 01/17/18 08:50 (NS Flush) 2 ml UNSCH PRN IV FLUSH 01/08/18 23:30 01/12/18 08:13 (NS Flush) 2 ml BID IV FLUSH 01/09/18 09:00 01/17/18 08:51 (Zofran Inj) 4 mg Q6H PRN IV PUSH 01/08/18 23:30 01/10/18 13:09 (Lovenox Inj) 30 mg Q24H SQ 01/08/18 23:30 01/16/18 21:58 Miscellaneous Information 1 [id number] XX 01/08/18 23:30 01/08/18 23:30 (Chlorhexidine 2% Cloth) Taper DAILY@04 TOP 01/09/18 04:00 01/05/19 03:59 01/17/18 04:00 (Chlorhexidine 2% Cloth) 3 pack UNSCH PRN TOP 01/08/18 23:30 (Bonita-Colace) 1 tab BID PO 01/09/18 09:00 01/17/18 08:50 (Milk Of Magnesia Liq) 30 ml Q12H PRN PO 01/08/18 23:30 01/10/18 17:53 (Senokot) 17.2 mg Q12H PRN PO 01/08/18 23:30 (Dulcolax Supp) 10 mg DAILY PRN RECTAL 01/08/18 23:30 (Lactulose Liq) 30 ml DAILY PRN PO 01/08/18 23:30 Potassium Chloride 100 ml @ 50 mls/hr Q2H PRN IV 01/09/18 00:00 01/14/18 05:39 Potassium Chloride 100 ml @ 50 mls/hr Q2H PRN IV 01/09/18 00:00 (K-Lyte Cl Eff) 50 meq UNSCH PRN PO 01/09/18 00:00 Potassium Chloride 100 ml @ 25 mls/hr UNSCH PRN IV 01/09/18 00:00 01/10/18 08:19 Potassium Chloride 100 ml @ 50 mls/hr Q2H PRN IV 01/09/18 00:00 Magnesium Sulfate 4 gm/Sodium Chloride 100 ml @ 50 mls/hr UNSCH PRN IV 01/09/18 00:00 (Mag-Ox) 800 mg UNSCH PRN PO 01/09/18 00:00 Magnesium Sulfate 2 gm/Sodium Chloride 100 ml @ 50 mls/hr UNSCH PRN IV 01/09/18 00:00 (K-Phos) 2,000 mg Q4H PRN PO 01/09/18 00:00 01/13/18 22:10 Sodium Phosphate 30 mmol/Sodium Chloride 250 ml @ 42 mls/hr UNSCH PRN IV 01/09/18 00:00 (K-Phos) 2,000 mg UNSCH PRN PO/TUBE 01/09/18 00:00 Potassium Phosphate 30 mmol/ Sodium Chloride 260 ml @ 42 mls/hr UNSCH PRN IV 01/09/18 00:00 (Imitrex Inj) 6 mg Q12H PRN SQ 01/09/18 03:45 Future Hold 01/15/18 21:17 (Peridex 0.12% Liq) 15 ml BID@08,20 MT 01/09/18 08:00 01/17/18 11:30 (Trandate Inj) 10 mg Q2HR PRN IV PUSH 01/09/18 08:00 01/10/18 21:23 (Ativan Inj) 2 mg Q4H PRN IV PUSH 01/09/18 08:30 01/16/18 22:00 (SoluMEDROL INJ) 40 mg Q8H IV PUSH 01/11/18 09:00 01/17/18 18:09 (Pulmicort Respule Neb) 0.5 mg Q12HR NEB NEB 01/11/18 08:45 01/17/18 08:29 Aztreonam 2000 mg/ Sodium Chloride 100 ml @ 200 mls/hr Q8H IV 01/11/18 11:00 01/17/18 12:13 Metronidazole 100 ml @ 100 mls/hr Q8H IV 01/11/18 10:00 01/17/18 18:08 (Cellcept Liq) 500 mg BID PO 01/11/18 21:00 01/17/18 11:26 (Beneprotein Powder) 1 pack TID G-TUBE 01/12/18 13:00 01/17/18 18:08 (NovoLOG SUPPLEMENTAL SCALE) 1 Q4H SQ 01/13/18 09:00 01/17/18 08:52 (NS Flush) 5 ml UNSCH PRN IV FLUSH 01/13/18 11:15 (Heparin Inj) 2,000 units UNSCH PRN IV FLUSH 01/13/18 11:15 Albumin Human 2,600 ml @ 250 mls/hr Q48H IV 01/13/18 13:00 01/21/18 23:23 01/17/18 13:00 (Benadryl Inj) 25 mg UNSCH PRN IV PUSH 01/13/18 11:15 01/23/18 11:14 Calcium Gluconate 3 gm/Sodium Chloride 280 ml @ 90 mls/hr Q48H IV 01/13/18 13:00 01/21/18 16:07 01/17/18 13:00 Sodium Chloride 1,000 ml @ 0 mls/hr Q0M IV 01/13/18 11:15 01/23/18 11:14 (Acd Formula Inj) 1,000 ml Q48H OTHER 01/13/18 13:00 01/23/18 18:00 01/17/18 13:00 (NS Flush) 10 ml UNSCH PRN IV FLUSH 01/13/18 11:15 (Heparin Inj) 5,000 units UNSCH PRN IV FLUSH 01/13/18 11:15 01/23/18 11:14 (Heparin Inj) 1,000 units UNSCH PRN IV FLUSH 01/13/18 11:15 01/23/18 11:14 Pharmacy Profile Note 0 ml @ 0 mls/hr UNSCH OTHER 01/13/18 14:30 (VANCOMYCIN for oral use only) 250 mg QID PO 01/13/18 18:00 01/17/18 18:08 (Duoneb Neb) 1 ampule Q6HR NEB NEB 01/14/18 16:00 01/17/18 15:44 Sodium Chloride 1,000 ml @ 84 mls/hr [id number] IV 01/14/18 12:00 01/17/18 12:20 Fentanyl Citrate 250 ml @ 5 mls/hr TITRATE PRN IV 01/15/18 15:00 01/17/18 07:25 Propofol 100 ml @ 1.56 mls/hr TITRATE PRN IV 01/15/18 15:00 01/17/18 15:29 (fentaNYL INJ) 50 mcg Q4H PRN IV 01/15/18 16:15 Vancomycin HCl 1000 mg/Sodium Chloride 250 ml @ 250 mls/hr Q8H IV 01/16/18 12:00 01/17/18 12:13 (Tylenol 650 Mg/ 20 ml Liq) 650 mg Q6H PRN PO 01/16/18 13:30 (Albuterol Neb) 2.5 mg Q2HR NEB PRN NEB 01/16/18 13:30 (Tears Naturale Opth Soln) 1 drop Q8HR EACH EYE 01/16/18 14:00 01/17/18 14:59 (Prevacid Odt) 30 mg DAILY NG 01/17/18 09:00 01/17/18 08:49 Midazolam HCl 100 ml @ 2 mls/hr TITRATE PRN IV 01/16/18 15:00 01/17/18 11:32 Miscellaneous Information SPECIFIC LAB TO BE [facility]... ONCE ONCE .XX 01/18/18 03:45 01/18/18 03:46 Allergies Allergies Coded Allergies penicillin G (Unverified Allergy, Severe, Anaphylaxis, 01/08/18) promethazine (Unverified Adverse Reaction, Severe, NAUSEOUS, 01/08/18) Review of Systems All other ROS: ROS reviewed as documented in chart Exam I&O / VS 01/17/18 01/17/18 01/18/18 15:00 23:00 07:00 Intake Total 450 ml 2168 ml Output Total 3000 ml Balance 450 ml -832 ml Intake Oral 0 ml IV Total 450 ml 1516 ml Tube Feeding 402 ml Other 250 ml Output Urine Total 2900 ml Stool Total 100 ml Vital Signs Date Time Temp Pulse Resp B/P (MAP) Pulse Ox O2 Delivery O2 Flow Rate FiO2 01/17/18 18:00 64 01/17/18 16:00 30 01/17/18 16:00 98.0 67 22 115/63 (80) 100 01/17/18 16:00 67 01/17/18 14:00 59 01/17/18 13:43 40 01/17/18 12:00 30 01/17/18 12:00 51 01/17/18 12:00 97.8 51 17 130/70 (90) 98 01/17/18 10:00 46 01/17/18 08:33 99 30 01/17/18 08:00 30 01/17/18 08:00 98.0 52 12 122/71 (88) 95 01/17/18 08:00 52 01/17/18 06:00 57 01/17/18 04:21 96 30 01/17/18 04:00 30 01/17/18 04:00 60 01/17/18 04:00 98.1 60 12 112/59 (76) 93 01/17/18 02:00 51 01/17/18 00:12 96 30 01/17/18 00:00 30 01/17/18 00:00 62 01/17/18 00:00 98.0 62 12 109/61 (77) 96 01/16/18 22:00 68 01/16/18 21:40 94 30 01/16/18 20:00 62 01/16/18 20:00 30 01/16/18 20:00 97.8 62 12 102/58 (73) 93 General: Alert and Oriented, No acute distress Eye: PERRL, EOMI, Normal conjuctiva Respiratory: Non-labored respirations, Symmetrical expansion Cardiology: Normal rate, Intact pulses, Regular Rhythm Musculoskeletal: ROM Neurologic: Alert, Oriented, Normal motor, CN II-XII intact, Normal DTR's Psychiatric: Cooperative, Appropriate mood & affect, Normal judgement Exam Comments sedated CN--no ptosis, EOM intact MOTOR 3/5 BUE and BLE Objective Micro and Labs Laboratory Tests Test 01/17/18 03:45 01/17/18 12:20 White Blood Count 9.6 Red Blood Count 3.79 Hemoglobin 9.9 Hematocrit 31.0 Mean Corpuscular Volume 81.8 Mean Corpuscular Hemoglobin 26.2 Mean Corpuscular Hemoglobin Concent 32.0 Red Cell Distribution Width 25.1 Platelet Count 233 Mean Platelet Volume 9.2 Neutrophils (%) (Auto) 90.5 Lymphocytes (%) (Auto) 5.8 Monocytes (%) (Auto) 3.6 Eosinophils (%) (Auto) 0.0 Basophils (%) (Auto) 0.1 Neutrophils # (Auto) 8.6 Lymphocytes # (Auto) 0.6 Monocytes # (Auto) 0.3 Eosinophils # (Auto) 0.0 Basophils # (Auto) 0.0 CBC Comment AUTO DIFF Differential Comment AUTO DIFF CONFIRMED Tear Drop Cells 1+ Ovalocytes 1+ Prothrombin Time 10.3 Prothromb Time International Ratio 1.0 Activated Partial Thromboplast Time 27.5 Fibrinogen 236 Blood Urea Nitrogen 7 Creatinine 0.30 Random Glucose 157 Calcium Level 8.1 Phosphorus Level 2.7 Magnesium Level 1.9 Sodium Level 144 Potassium Level 3.5 Chloride Level 106 Carbon Dioxide Level 33.0 Anion Gap 5 Estimat Glomerular Filtration Rate 245 Vancomycin Level Trough 7.5 Date/Time Source Procedure Growth Status 01/11/18 11:31 Blood Peripheral Aerobic Blood Culture - Final NO GROWTH IN 5 DAYS Complete 01/11/18 11:31 Blood Peripheral Anaerobic Blood Culture - Final NO GROWTH IN 5 DAYS Complete 01/13/18 17:15 Stool Stool Stool Occult Blood (MANUELITO) - Final HEMOCCULT POSITIVE Complete 01/12/18 14:00 Sputum Endotracheal Gram Stain - Final Complete 01/12/18 14:00 Sputum Culture - Final S. Aureus Mrsa Complete 01/11/18 12:20 Urine Catheterized Urine Urine Culture - Final NO GROWTH IN 48 HOURS. Complete Leonardo De La Fuente MD PhD Jan 17, 2018 19:46
[2018-01-17] MEDS: ENOXAPARIN SODIUM 30 MG/0.3 ML SYRINGE SQ SCH (22:29)
[2018-01-17] MEDS: LORazepam 2 MG/ML VIAL IV PUSH PRN (22:30)
[2018-01-18] VITALS (17 sets, daily range): BP systolic 104–142; BP diastolic 56–79; PULSE 50–96; RESP 11–21; TEMP 97.2–98.7; O2SAT 92–100
[2018-01-18] MEDS: INSULIN ASPART SUPPLEMENTAL SCALE SQ SCH ×6 (01:00→20:50)
[2018-01-18] MEDS: VANCOMYCIN 1,000 MG/NS 250 ML IV SCH ×4 (01:06→05:43)
[2018-01-18] MEDS: methylPREDNISolone SOD SUCC 125 MG/2 ML VIAL IV PUSH SCH ×3 (01:06→15:56)
[2018-01-18] MEDS: metroNIDAZOLE 500 MG INJ 100 ML IV SCH ×3 (01:07→17:14)
[2018-01-18] MEDS: AZTREONAM INJ 2,000 MG in SODIUM CHLORIDE 0.9% INJ 100 ML IV SCH ×3 (01:07→20:46)
[2018-01-18] MEDS: PROPOFOL 1000 MG/100 ML INJ 100 ML IV PRN ×3 (01:08→09:13)
[2018-01-18] MEDS: fentaNYL DRIP 250 ML IV PRN (01:08)
[2018-01-18] MEDS ORDERED: PHARMACY ORDERED LAB ONE (03:45)
[2018-01-18] MEDS: CHLORHEXIDINE GLUCONATE 2 % 1 PACK (2 CLOTHS) TOP SCH (04:00)
[2018-01-18] MEDS: RESP: ALBUTEROL 2.5 MG/IPRATROPIUM 0.5 MG NEB (SCH) NEB ×4 (04:05→21:04)
[2018-01-18 04:50] LABS: HEMATOCRIT 27.6 % (35.0-46.0); HEMOGLOBIN 8.7 GM/DL (11.6-15.3); MEAN CELL VOLUME 81.2 FL (80.0-100.0); MEAN CORPUSCULAR HEMOGLOBIN 25.6 PG (27.0-34.0); MEAN CORPUSCULAR HGB CONC 31.6 % (32.0-36.0); MEAN PLATELET VOLUME 8.9 FL (7.0-11.0); PLATELET COUNT 164 TH/MM3 (150-450); WHITE BLOOD COUNT 10.4 TH/MM3 (4.0-11.0)
[2018-01-18 05:18] LABS: BICARBONATE 24.3 MEQ/L (21.0-32.0); CALCIUM 6.7 MG/DL (8.5-10.1); MAGNESIUM 1.5 MG/DL (1.5-2.5); PHOSPHORUS 1.7 MG/DL (2.5-4.9)
[2018-01-18 05:20] LABS: ALBUMIN 3.1 GM/DL (3.4-5.0); CALCIUM-PROTEIN CORRECTED 8.2 MG/DL (8.5-10.1); CREATININE 0.24 MG/DL (0.50-1.00); TOTAL BILIRUBIN ADULT 0.3 MG/DL (0.2-1.0); TOTAL PROTEIN 4.3 GM/DL (6.4-8.2)
[2018-01-18 05:34] LABS: VANCOMYCIN TROUGH 11.9 MCG/ML (5.0-10.0)
[2018-01-18] MEDS: ARTIFICIAL TEARS OPTH SOLN 15 ML BTL EACH EYE SCH (05:43)
[2018-01-18] MEDS: MIDAZOLAM 100 MG/100 ML INJ 100 ML IV PRN (05:43)
[2018-01-18] MEDS: POTASSIUM CHLOR 20 MEQ PREMIX 100 ML IV PRN ×4 (05:45→13:28)
[2018-01-18] MEDS: POTASSIUM PHOSPHATE MONOBASIC 500 MG TAB PO PRN (06:04)
[2018-01-18 07:02] LABS: BANDS 7 % (0-6); CORRECTED NUCLEATED RBC 1 /100 WBC (0-0); LYMPHOCYTES 8 % (9-44); MONOCYTES 2 % (0-8); MYELOCYTES 1 % (0-0); NEUTROPHIL # MANUAL DIFF 9.4 TH/MM3 (1.8-7.7); NUCLEATED RED BLOOD CELL 1 (0-0); OVALOCYTES 2+ (NORMAL); POLYS (SEG NEUTROPHILS) 82 % (16-70); TEARDROP RBCS 1+ (NORMAL)
[2018-01-18] MEDS: RESP: BUDESONIDE 0.5 MG/2 ML NEB NEB SCH ×2 (07:59→21:04)
[2018-01-18] MEDS: CHLORHEXIDINE 0.12% (ORAL KIT) 15 ML CUP MT SCH ×2 (08:21→20:00)
[2018-01-18] MEDS: PYRIDOSTIGMINE BROMIDE 60 MG TAB PO SCH ×3 (08:21→15:55)
[2018-01-18] MEDS: LACTOBACILLUS ACIDOPHILUS TAB PO SCH (08:22)
[2018-01-18] MEDS: ASPIRIN 81 MG CHEW TAB CHEW SCH (08:22)
[2018-01-18] MEDS: LANSOPRAZOLE SOLUTAB 30 MG TAB NG SCH (08:22)
[2018-01-18] MEDS: DOCUSATE SODIUM 50 MG/SENNA 8.6 MG TAB PO SCH ×2 (08:22→20:49)
[2018-01-18] MEDS: VANCOMYCIN 500 MG VIAL (FOR ORAL USE ONLY) PO SCH ×4 (08:23→20:49)
[2018-01-18] MEDS: SODIUM CHLORIDE 0.9% FLUSH 10 ML FLUSH IV FLUSH SCH ×2 (08:23→20:48)
[2018-01-18] MEDS: MYCOPHENOLATE MOFETIL 200 MG/ML 175 ML BOTTLE PO SCH ×2 (08:24→20:48)
[2018-01-18] MEDS: BENEPROTEIN POWDER 1 PACK G-TUBE SCH ×3 (08:24→17:15)
[2018-01-18] MEDS ORDERED: POTASSIUM PHOSPHATE INJ 30 MMOL in SODIUM CHLOR 0.9% 250 ML INJ 250 ML IV ONE (09:15)
--- NOTE | 2018-01-18 09:59 | HHI.CCPN ---
Subjective Remarks/Hospital Course 01/08: 42-year-old unfortunate female presenting to the emergency department for evaluation of altered mental status. This is her seventh admission within the last 5 months for the similar symptoms. Per EMS patient's ex- found her in bed yesterday, apparently at that time she was still verbal. When he returned home this afternoon she was not responding, stiff and moaning. H&P is limited due to patient's clinical condition. Her last admission was 2 weeks ago with a diagnosis of myasthenia gravis exacerbation. Per ED documentation report she has been sick with flulike symptoms all week including nausea and vomiting and diarrhea. She has been unable to keep down any of her medications. Every time she eats she has a bowel movement. Per ED reports she also intentionally overdosed with Midodrin. 01/09: Patient agitated and anxious this morning not verbalizing. Appeared to have some tachypnea and dyspnea. Patient became extremely anxious and agitated with heart rate going up to the 160s and blood pressure 170s systolic. She had dilated pupils bilaterally despite Ativan 2 mg IV given earlier to control anxiety, probably secondary to cocaine and amphetamines in her system as her tox screen came back positive for cocaine, amphetamines, barbiturates. Patient was emergently intubated using etomidate for sedation and placed on mechanical ventilation. No neuromuscular blockade was used during intubation in view of myasthenia gravis. Her heart rate came down to 150s following intubation. 1 L normal saline fluid bolus was ordered following which heart rate came down to 120s. 01/10: Resting comfortably on sedation, awake and alert, orally intubated on mechanical ventilation. On propofol Versed and fentanyl drips. Following commands appropriately, moving all 4 extremities. Denies any shortness of breath by shaking her head. 01/11: I was emergently called to the bedside today as patient was unresponsive with agonal breathing hardly 2-3 breaths per minute, and severe bradycardia, HR down to 25/mt, impending cardio pulmonary arrest. Epinephrine 1 mg IV push given stat, followed by one ampule of bicarb and 1 g of calcium chloride. Patient was intubated emergently without any medication as she was comatose. Apparently was hypoxic agitated requiring BiPAP but noncompliant. Received Ativan 2 mg at after midnight and also sent 1 dose of Xanax apparently for agitation 01/12: Remains intubated sedated but ventilator mechanics has improved. FiO2 down to 50%. On propofol and Versed gtt, but wide awake following commands. Off pressors. remains on full alignment 50,000 ng. Start weaning Flolan per protocol 01/13: Persistent muscular weakness due to myasthenia despite IVIG and steroids. Hematology consult to start plasma exchange alternate days . Vas-Cath placed. Continue to wean Flolan per protocol. Chest x-ray with persistent right lower lobe pneumonia 01/14: Started on plasma exchange therapy yesterday for myasthenia crisis leading to respiratory arrest. Currently also receiving treatment for MRSA pneumonia and C. difficile colitis. Myasthenia crisis most likely precipitated by acute infection, pneumonia. Significant muscular weakness persists, patient remains intubated and critically ill. Weaned off Flolan. Oxygenating well, will start CPAP trial to exercise respiratory muscles-unable to extubate due to severe and persistent muscular weakness 01/15: failed CPAP after only 10 minutes for weakness, tachypnea, shallow tidal volume breaths. remains sedated. need to start checking NIFs daily and aggressive PT/OT to prevent further weakness and deconditioning. 01/16: Requesting additional pain medication. Awake and alert. Currently on scheduled #2/5 plasmapheresis. Plan to restart Wednesday 01/17. Positive BM 01/17: Afebrile. Scheduled for plasmapheresis today. We will wean sedation and attempt to extubate postprocedure. Strength much improved. Subjective 01/18: Afebrile. Will attempt extubation today. Apneic late last night after plasmapheresis. Arousable and follows commands. Strength 3+5/5 bilateral upper and lower extremity's. Excellent NIF -40 Objective Vital Signs Date Time Temp Pulse Resp B/P (MAP) Pulse Ox O2 Delivery O2 Flow Rate FiO2 01/18/18 08:03 100 30 01/18/18 08:00 97.8 73 21 104/56 (72) Intake and Output 01/18/18 01/18/18 01/19/18 08:00 16:00 00:00 Intake Total 2637 ml Output Total 3300 ml Balance -663 ml Result Diagram: 01/18/1842901/18/18 043 Other Results Microbiology Date/Time Source Procedure Growth Status 01/11/18 11:31 Blood Peripheral Aerobic Blood Culture - Final NO GROWTH IN 5 DAYS Complete 01/11/18 11:31 Blood Peripheral Anaerobic Blood Culture - Final NO GROWTH IN 5 DAYS Complete 01/13/18 17:15 Stool Stool Stool Occult Blood (MANUELITO) - Final HEMOCCULT POSITIVE Complete 01/12/18 14:00 Sputum Endotracheal Gram Stain - Final Complete 01/12/18 14:00 Sputum Culture - Final S. Aureus Mrsa Complete 01/11/18 12:20 Urine Catheterized Urine Urine Culture - Final NO GROWTH IN 48 HOURS. Complete Imaging Last Impressions Chest X-Ray 01/17/18 0600 Signed Impressions: Service Date/Time: Wednesday, January 17, 2018 03:18 - CONCLUSION: Stable bibasilar densities. Reginald Fisher MD Abdomen X-Ray 01/14/18 1007 Signed Impressions: Service Date/Time: Sunday, January 14, 2018 10:11 - CONCLUSION: No dilated loops of small or large bowel. Pilo Walker MD Objective Remarks GEN: 42-year-old female currently orotracheally intubated HEENT: Pupils 2 mm sluggish. Orotracheally intubated Neck: No JVD Chest/Pulm: Air entry diminished at the right base with coarse crackles. Mild amount of secretions CVS: RRR. S1, S3 no S4 without murmur GI/abdomen: soft, nontender, nondistended. no guarding. NEURO: Pupils are reactive. On sedation eyes are spontaneously open. Follows 4. Muscle power 4/5 in upper extremities proximally and distally,2-3/5 in all lower extremity muscles. Some ptosis persist. Barely able to lift head off the pillow Urinary Catheter: No Assessment to: Continue Vascular Central Line Catheter: No Assessment to: Continue A/P Assessment and Plan Neuro/Psych: Acute Myasthenia crisis Myasthenia gravis Acute toxic metabolic metabolic encephalopathy UDS + cocaine/amphetamine/barbiturates Migraine headaches Chronic opioid use Chronic benzodiazepine use Currently on fentanyl drip at 250 mcg an hour for analgesia while intubated. On midazolam drip at 10 mg an hour and propofol drip at 50 mg/kg/min and currently rapidly weaning down with attempt to extubate Goal of RA SS of -1-0 Daily sedation vacation -Started plasma exchange 01/13/18. Received 3 out of 5. Plan to restart 01/19. Appreciate hematology and neurology input -Plan for 5 sessions of plasma exchange every alternate day -IVIG completed course -Mycophenolate Mofetil 500 mg twice daily, IV methylprednisolone succinate 40 mg IV twice daily, Pyridostigmine [place] 120 mg p.o. 3 times daily On prednisone 5 mg daily at home -Further recommendations per neurologist -Holding gabapentin 900 mg 3 times daily for neuropathy -Holding sumatriptan inhalation as needed for migraine Holding acetaminophen/butibal/caffeine 325/50/41 tablet every 6 hours as needed migraine headache -Propofol, fentanyl infusion for sedation and pain control On chronic oxycodone/acetaminophen 10/325 1 tablet every 6 hours as needed pain On chronic alprazolam 1 mg every 6 hours as needed -Citalopram 40 mg daily held in view of concern regarding overdose. -Psych has seen RESP: s/p Respiratory arrest secondary to myasthenia crisis Acute hypoxemic and hypercarbic respiratory failure Right lower lobe pneumonia/MRSA -Emergently intubated and placed on full mechanical ventilation PRVC mode on 01/11 -Myasthenia crisis and respiratory arrest most likely secondary to MRSA pneumonia, and sepsis -Albuterol/ipratropium aerosols every 6 hours scheduled with albuterol aerosols every 2 hours and as needed, Ventilator bundle -Daily SBT without extubation, severe muscular weakness will not permit extubation - trend daily NIFs - PT/OT consults. OOB to stretcher chair daily to attempt to prevent further deconditioning. CVS: Severe bradycardia most likely from severe respiratory acidosis resolved Sinus tachycardia now- improving. -Severe bradycardia most likely secondary to severe respiratory acidosis, improved rapidly after intubation -Received epinephrine bicarb and calcium -Slightly elevated troponin secondary to above As needed labetalol when necessary for hypertension, tachycardia. Holding Midodrine 5 mg twice daily GI: C. difficile colitis Heme positive stools -Lansoprazole 30 mg by tube daily -Tube feeds with Jevity 1.5 goal 55 cc an hour, free water 100 mL every 6 hours -Bowel regimen with docusate sodium/senna 1 tablet twice daily -On p.o. vancomycin 250 mg 4 times daily and IV metronidazole for C. difficile colitis /Endo: -Electrolytes replacement per ICU protocol -Strict intake output Please replace Ledezma catheter patient with urinary retention Heme: Anemia/normocytic -Continue Ferrous Sulfate 325 mg twice daily/home medication ID: Right lower lobe pneumonia/MRSA C. difficile colitis, recurrent Severe sepsis Continue IV vancomycin, aztreonam, IV metronidazole. P.o. vancomycin started for positive C. difficile colitis Nasal aspirate negative for influenza A and B neg. Urine for strep pneumo and Legionella antigen negative. Sputum 01/12+ for MRSA in sputum Blood cultures , 01/10 and 01/09 all no growth to date FEN: Hypokalemia Hypophosphatemia Hypomagnesia K-Phos, KCl and magnesium sulfate all replace actively overnight. Recheck in a.m. DVT GI prophylaxis -SCDs -Enoxaparin 30 mg subcu daily -Lansoprazole Level 3 follow-up Chirag Diaz MD Jan 18, 2018 09:59
[2018-01-18] MEDS: MAGNESIUM SULFATE 1 GM PREMIX 100 ML IV SCH ×2 (10:16→12:24)
[2018-01-18] MEDS: POTASSIUM CHLOR 10 MEQ PREMIX 100 ML IV SCH ×3 (11:06→13:27)
[2018-01-18] MEDS: FERROUS SULFATE 325 MG (65 MG ELEMENTAL IRON) TAB PO SCH ×2 (11:08→15:55)
[2018-01-18] MEDS: VANCOMYCIN INJ 1,200 MG in SODIUM CHLOR 0.9% 250 ML INJ 250 ML IV SCH ×2 (13:09→20:47)
[2018-01-18] MEDS: LORazepam 2 MG/ML VIAL IV PUSH PRN ×3 (13:25→21:56)
--- NOTE | 2018-01-18 18:03 | PD.ONC.PN ---
Subjective Subjective Remarks Patient seen at bedside this morning. She is intubated. Primary team plans for extubation this morning. She is s/p 3 session of plasmapheresis. Objective Data Date Time Temp Pulse Resp B/P (MAP) Pulse Ox O2 Delivery O2 Flow Rate FiO2 01/18/18 16:55 22 01/18/18 16:00 76 01/18/18 16:00 98.3 76 15 142/79 (100) 92 01/18/18 14:00 79 01/18/18 12:00 98.7 72 11 134/79 (97) 100 01/18/18 12:00 72 01/18/18 11:59 98 Nasal Cannula 3.00 01/18/18 11:59 98 Nasal Cannula 3 01/18/18 10:00 55 01/18/18 08:03 100 30 01/18/18 08:03 30 01/18/18 08:00 97.8 73 21 104/56 (72) 100 01/18/18 08:00 30 01/18/18 08:00 73 01/18/18 06:00 64 01/18/18 04:06 100 30 01/18/18 04:00 30 01/18/18 04:00 66 01/18/18 04:00 97.9 66 13 108/58 (75) 100 01/18/18 02:00 50 01/18/18 00:47 99 30 01/18/18 00:00 30 01/18/18 00:00 97.2 58 13 129/76 (93) 100 01/18/18 00:00 58 01/17/18 22:08 94 30 01/17/18 22:00 52 01/17/18 20:00 30 01/17/18 20:00 98.0 78 16 130/78 (95) 97 01/17/18 20:00 78 01/17/18 18:00 64 01/18/18 01/18/18 01/18/18 07:00 15:00 23:00 Intake Total 2637 ml 1304 ml Output Total 3300 ml Balance -663 ml 1304 ml Result Diagram: 01/18/18 0430 01/18/18 0430 Laboratory Results Laboratory Tests Test 01/18/18 04:30 White Blood Count 10.4 TH/MM3 Red Blood Count 3.40 MIL/MM3 Hemoglobin 8.7 GM/DL Hematocrit 27.6 % Mean Corpuscular Volume 81.2 FL Mean Corpuscular Hemoglobin 25.6 PG Mean Corpuscular Hemoglobin Concent 31.6 % Red Cell Distribution Width 25.0 % Platelet Count 164 TH/MM3 Mean Platelet Volume 8.9 FL CBC Comment AUTO DIFF Differential Total Cells Counted 100 Neutrophils % (Manual) 82 % Band Neutrophils % 7 % Lymphocytes % 8 % Monocytes % 2 % Neutrophils # (Manual) 9.4 TH/MM3 Myelocytes 1 % Nucleated Red Blood Cells 1 /100 WBC Differential Comment FINAL DIFF MANUAL Platelet Estimate NORMAL Platelet Morphology Comment NORMAL Tear Drop Cells 1+ Ovalocytes 2+ Blood Urea Nitrogen 5 MG/DL Creatinine 0.24 MG/DL Random Glucose 131 MG/DL Total Protein 4.3 GM/DL Albumin 3.1 GM/DL Calcium Level 6.7 MG/DL Phosphorus Level 1.7 MG/DL Magnesium Level 1.5 MG/DL Alkaline Phosphatase 15 U/L Aspartate Amino Transf (AST/SGOT) 7 U/L Alanine Aminotransferase (ALT/SGPT) 6 U/L Total Bilirubin 0.3 MG/DL Sodium Level 145 MEQ/L Potassium Level 2.9 MEQ/L Chloride Level 114 MEQ/L Carbon Dioxide Level 24.3 MEQ/L Anion Gap 7 MEQ/L Estimat Glomerular Filtration Rate 317 ML/MIN Protein Corrected Calcium 8.2 MG/DL Vancomycin Level Trough 11.9 MCG/ML Administered Medications Medications (Trade) Dose Ordered Sig/Gómez Route PRN Reason Start Time Stop Time Status Last Admin Dose Admin Aspirin (Aspirin Chew) 81 mg DAILY CHEW 01/09/18 09:00 01/18/18 08:22 Ferrous Sulfate (Ferrous Sulfate) 325 mg BID@12,17 PO 01/09/18 12:00 01/18/18 15:55 Prednisone (Deltasone) 5 mg DAILY PO 01/09/18 09:00 Future Hold 01/10/18 08:20 Pyridostigmine [place] (Mestinon) 120 mg TIDAC PO 01/09/18 08:00 01/18/18 15:55 Lactobacillus Acidophilus (Lactinex) 1 tab DAILY PO 01/09/18 09:00 01/18/18 08:22 Sodium Chloride (NS Flush) 2 ml UNSCH PRN IV FLUSH FLUSH AFTER USING IV ACCESS 01/08/18 23:30 01/12/18 08:13 Sodium Chloride (NS Flush) 2 ml BID IV FLUSH 01/09/18 09:00 01/18/18 08:23 Ondansetron HCl (Zofran Inj) 4 mg Q6H PRN IV PUSH NAUSEA OR VOMITING 01/08/18 23:30 01/10/18 13:09 Enoxaparin Sodium (Lovenox Inj) 30 mg Q24H SQ 01/08/18 23:30 01/17/18 22:29 Miscellaneous Information 1 Q361D XX 01/08/18 23:30 01/08/18 23:30 Chlorhexidine Gluconate (Chlorhexidine 2% Cloth) Taper DAILY@04 TOP 01/09/18 04:00 01/05/19 03:59 01/17/18 04:00 Senna/Docusate Sodium (Bonita-Colace) 1 tab BID PO 01/09/18 09:00 01/18/18 08:22 Magnesium Hydroxide (Milk Of Magnesia Liq) 30 ml Q12H PRN PO Mild constipation 01/08/18 23:30 01/10/18 17:53 Potassium Chloride 100 ml @ 50 mls/hr Q2H PRN IV For Potassium 2.8 - 3.2 mEq/L 01/09/18 00:00 01/14/18 05:39 Potassium Chloride 100 ml @ 50 mls/hr Q2H PRN IV For Potassium 2.8 - 3.2 mEq/L 01/09/18 00:00 01/18/18 13:28 Potassium Chloride 100 ml @ 25 mls/hr UNSCH PRN IV For Potassium 3.3 - 3.5 mEq/L 01/09/18 00:00 01/10/18 08:19 Magnesium Sulfate 2 gm/Sodium Chloride 100 ml @ 50 mls/hr UNSCH PRN IV For Magnesium 1.2 - 1.6 mg/dL 01/09/18 00:00 01/18/18 06:04 Potassium Phosphate (K-Phos) 2,000 mg Q4H PRN PO For Phosphorus < 2.5 mg/dL 01/09/18 00:00 01/18/18 06:04 Sumatriptan Succinate (Imitrex Inj) 6 mg Q12H PRN SQ HEADACHE/ MIGRAINE 01/09/18 03:45 Future Hold 01/15/18 21:17 Chlorhexidine Gluconate (Peridex 0.12% Liq) 15 ml BID@08,20 MT 01/09/18 08:00 01/18/18 08:21 Labetalol HCl (Trandate Inj) 10 mg Q2HR PRN IV PUSH SBP greater than 160mm Hg 01/09/18 08:00 01/10/18 21:23 Lorazepam (Ativan Inj) 2 mg Q4H PRN IV PUSH agitation 01/09/18 08:30 01/18/18 17:15 Methylprednisolone Sodium Succinate (SoluMEDROL INJ) 40 mg Q8H IV PUSH 01/11/18 09:00 01/18/18 15:56 Budesonide (Pulmicort Respule Neb) 0.5 mg Q12HR NEB NEB 01/11/18 08:45 01/18/18 07:59 Aztreonam 2000 mg/ Sodium Chloride 100 ml @ 200 mls/hr Q8H IV 01/11/18 11:00 01/18/18 11:06 Metronidazole 100 ml @ 100 mls/hr Q8H IV 01/11/18 10:00 01/18/18 17:14 Mycophenolate Mofetil (Cellcept Liq) 500 mg BID PO 01/11/18 21:00 01/18/18 08:24 Protein (Beneprotein Powder) 1 pack TID G-TUBE 01/12/18 13:00 01/18/18 08:24 Insulin Aspart (NovoLOG SUPPLEMENTAL SCALE) 1 Q4H SQ 01/13/18 09:00 01/18/18 08:23 Albumin Human 2,600 ml @ 250 mls/hr Q48H IV 01/13/18 13:00 01/21/18 23:23 01/17/18 13:00 Calcium Gluconate 3 gm/Sodium Chloride 280 ml @ 90 mls/hr Q48H IV 01/13/18 13:00 01/21/18 16:07 01/17/18 13:00 Anticoagulant Citrate Dextose Cindy A (Acd Formula Inj) 1,000 ml Q48H OTHER 01/13/18 13:00 01/23/18 18:00 01/17/18 13:00 Vancomycin HCl (VANCOMYCIN for oral use only) 250 mg QID PO 01/13/18 18:00 01/18/18 17:14 Lansoprazole (Prevacid Odt) 30 mg DAILY NG 01/17/18 09:00 01/18/18 08:22 Albuterol/ Ipratropium (Duoneb Neb) 1 ampule Q6HR NEB NEB 01/18/18 16:00 01/18/18 16:09 Vancomycin HCl 1200 mg/Sodium Chloride 262 ml @ 250 mls/hr Q8H IV 01/18/18 12:00 01/18/18 13:09 Fentanyl Citrate (fentaNYL INJ) 50 mcg Q2HR PRN IV SEE LABEL COMMENTS 01/18/18 13:00 01/18/18 15:55 Objective Remarks GENERAL: thin lady, intubated and sedated. SKIN: Warm and dry. HEAD: Normocephalic. EYES: No scleral icterus. No injection or drainage. LYMPHATIC: No adenopathy. CARDIOVASCULAR: Regular rate and rhythm without murmurs. RESPIRATORY: Breath sounds equal bilaterally. GASTROINTESTINAL: Abdomen soft, non-tender, nondistended. EXTREMITIES: No cyanosis, or edema. MUSCULOSKELETAL: Adequate muscle tone. NEUROLOGICAL: No obvious focal deficit. Awake, alert, and oriented x3. Assessment/Plan Assessment 1. Myastenia gravis exacerbation: s/p IVIG and immunosuppressive with no improvement in symptoms. She has received 3 of 5 planned plasmapheresis procedures. Next session planned for tomorrow. 2. Respiratory distress: due to infection/ myastenia gravis crisis. plan for extubation today. 3. Anemia: multifactoral. Currently on home iron supplementation. Continue to trend. Tammy Jose MD Jan 18, 2018 18:03
[2018-01-18] MEDS: MAGNESIUM OXIDE 400 MG TAB PO SCH (20:48)
[2018-01-18] MEDS: ENOXAPARIN SODIUM 30 MG/0.3 ML SYRINGE SQ SCH (21:56)
[2018-01-18 23:16] LABS: MYCOPHENOLIC ACID 8.3 mcg/mL (1.0 - 3.5)
[2018-01-19] VITALS (20 sets, daily range): BP systolic 114–146; BP diastolic 59–82; PULSE 67–101; RESP 21–26; TEMP 98–98.3; O2SAT 71–100
[2018-01-19] MEDS: INSULIN ASPART SUPPLEMENTAL SCALE SQ SCH ×5 (01:00→21:00)
[2018-01-19] MEDS: methylPREDNISolone SOD SUCC 125 MG/2 ML VIAL IV PUSH SCH ×3 (01:04→16:04)
[2018-01-19] MEDS: metroNIDAZOLE 500 MG INJ 100 ML IV SCH ×3 (01:04→17:22)
[2018-01-19] MEDS: LORazepam 2 MG/ML VIAL IV PUSH PRN ×4 (01:22→21:37)
[2018-01-19] MEDS: AZTREONAM INJ 2,000 MG in SODIUM CHLORIDE 0.9% INJ 100 ML IV SCH ×3 (03:50→18:14)
[2018-01-19] MEDS: VANCOMYCIN INJ 1,200 MG in SODIUM CHLOR 0.9% 250 ML INJ 250 ML IV SCH ×3 (03:50→19:56)
[2018-01-19] MEDS: CHLORHEXIDINE GLUCONATE 2 % 1 PACK (2 CLOTHS) TOP SCH (04:00)
[2018-01-19] MEDS: RESP: ALBUTEROL 2.5 MG/IPRATROPIUM 0.5 MG NEB (SCH) NEB ×4 (04:20→21:02)
--- NOTE | 2018-01-19 05:08 | RADRPT ---
EXAM DATE/TIME: 01/19/2018 03:30 [facility] COMPARISON: CHEST SINGLE AP, January 17, 2018, 3:18. INDICATIONS : Short of breath. MEDICAL HISTORY : Myasthenia gravis SURGICAL HISTORY : Thymectomy ENCOUNTER: Subsequent ACUITY: 1 week PAIN SCORE: 0/10 LOCATION: Bilateral chest FINDINGS: A single view of the chest demonstrates improving bibasilar densities. Right-sided jugular catheter a nd left-sided port are unchanged. The cardiomediastinal contours are unremarkable. Osseous structur es are intact. CONCLUSION: Improving bibasilar densities. Reginald Fisher MD on January 19, 2018 at 5:06 Board Certified Radiologist. This report was verified electronically.
[2018-01-19 05:10] LABS: AUTOMATED NEUTROPHIL # 10.4 TH/MM3 (1.8-7.7); BASOPHIL % 0.1 % (0.0-2.0); EOSINOPHIL % 0.1 % (0.0-4.0); HEMATOCRIT 32.6 % (35.0-46.0); HEMOGLOBIN 10.4 GM/DL (11.6-15.3); LYMPH % 7.1 % (9.0-44.0); LYMPHOCYTE # 0.8 TH/MM3 (1.0-4.8); MEAN CORPUSCULAR HEMOGLOBIN 25.9 PG (27.0-34.0); MEAN PLATELET VOLUME 8.4 FL (7.0-11.0); MONO % 4.4 % (0.0-8.0); MONOCYTE # 0.5 TH/MM3 (0-0.9); NEUT % 88.3 % (16.0-70.0); PLATELET COUNT 330 TH/MM3 (150-450); RED BLOOD COUNT 4.02 MIL/MM3 (4.00-5.30); WHITE BLOOD COUNT 11.8 TH/MM3 (4.0-11.0)
[2018-01-19 05:40] LABS: INTERNATIONAL NORMALIZED RATIO 1.1 RATIO; PROTHROMBIN TIME - PATIENT 10.7 SEC (9.8-11.6)
[2018-01-19 05:49] LABS: ALBUMIN 3.9 GM/DL (3.4-5.0); ALKALINE PHOSPHATASE 25 U/L (45-117); ALT (GPT) 14 U/L (10-53); AST (GOT) 14 U/L (15-37); BICARBONATE 29.9 MEQ/L (21.0-32.0); BLOOD UREA NITROGEN 4 MG/DL (7-18); CALCIUM 8.6 MG/DL (8.5-10.1); CHLORIDE 107 MEQ/L (98-107); GLOMERULAR FILTRATION RATE 176 ML/MIN (>89); GLUCOSE,RANDOM 121 MG/DL (74-106); MAGNESIUM 2.3 MG/DL (1.5-2.5); PHOSPHORUS 2.2 MG/DL (2.5-4.9); SODIUM (NA) 144 MEQ/L (136-145); TOTAL BILIRUBIN ADULT 0.3 MG/DL (0.2-1.0); TOTAL PROTEIN 6.2 GM/DL (6.4-8.2)
[2018-01-19] MEDS: ASPIRIN 81 MG CHEW TAB CHEW SCH (07:53)
[2018-01-19] MEDS: LACTOBACILLUS ACIDOPHILUS TAB PO SCH (07:53)
[2018-01-19] MEDS: VANCOMYCIN 500 MG VIAL (FOR ORAL USE ONLY) PO SCH ×4 (07:54→19:56)
[2018-01-19] MEDS: MAGNESIUM OXIDE 400 MG TAB PO SCH ×2 (07:54→19:57)
[2018-01-19 07:57] LABS: OVALOCYTES 1+ (NORMAL); TEARDROP RBCS 1+ (NORMAL)
[2018-01-19] MEDS: CHLORHEXIDINE 0.12% (ORAL KIT) 15 ML CUP MT SCH ×2 (08:00→19:56)
[2018-01-19] MEDS: BENEPROTEIN POWDER 1 PACK G-TUBE SCH ×3 (08:18→17:23)
[2018-01-19] MEDS: LANSOPRAZOLE SOLUTAB 30 MG TAB NG SCH (08:19)
[2018-01-19] MEDS: DOCUSATE SODIUM 50 MG/SENNA 8.6 MG TAB PO SCH ×2 (08:19→19:56)
[2018-01-19] MEDS: PYRIDOSTIGMINE BROMIDE 60 MG TAB PO SCH ×3 (08:26→16:04)
[2018-01-19] MEDS: MYCOPHENOLATE MOFETIL 200 MG/ML 175 ML BOTTLE PO SCH (08:26)
[2018-01-19] MEDS: SODIUM CHLORIDE 0.9% FLUSH 10 ML FLUSH IV FLUSH SCH ×2 (08:27→19:56)
[2018-01-19] MEDS: RESP: BUDESONIDE 0.5 MG/2 ML NEB NEB SCH ×2 (09:15→21:02)
[2018-01-19] MEDS: FERROUS SULFATE 325 MG (65 MG ELEMENTAL IRON) TAB PO SCH ×2 (10:38→16:04)
[2018-01-19] MEDS: ALBUMIN 5% IV SCH ×2 (12:07→17:00)
--- NOTE | 2018-01-19 12:58 | HHI.CCPN ---
Subjective Remarks/Hospital Course 01/08: 42-year-old unfortunate female presenting to the emergency department for evaluation of altered mental status. This is her seventh admission within the last 5 months for the similar symptoms. Per EMS patient's ex- found her in bed yesterday, apparently at that time she was still verbal. When he returned home this afternoon she was not responding, stiff and moaning. H&P is limited due to patient's clinical condition. Her last admission was 2 weeks ago with a diagnosis of myasthenia gravis exacerbation. Per ED documentation report she has been sick with flulike symptoms all week including nausea and vomiting and diarrhea. She has been unable to keep down any of her medications. Every time she eats she has a bowel movement. Per ED reports she also intentionally overdosed with Midodrin. 01/09: Patient agitated and anxious this morning not verbalizing. Appeared to have some tachypnea and dyspnea. Patient became extremely anxious and agitated with heart rate going up to the 160s and blood pressure 170s systolic. She had dilated pupils bilaterally despite Ativan 2 mg IV given earlier to control anxiety, probably secondary to cocaine and amphetamines in her system as her tox screen came back positive for cocaine, amphetamines, barbiturates. Patient was emergently intubated using etomidate for sedation and placed on mechanical ventilation. No neuromuscular blockade was used during intubation in view of myasthenia gravis. Her heart rate came down to 150s following intubation. 1 L normal saline fluid bolus was ordered following which heart rate came down to 120s. 01/10: Resting comfortably on sedation, awake and alert, orally intubated on mechanical ventilation. On propofol Versed and fentanyl drips. Following commands appropriately, moving all 4 extremities. Denies any shortness of breath by shaking her head. 01/11: I was emergently called to the bedside today as patient was unresponsive with agonal breathing hardly 2-3 breaths per minute, and severe bradycardia, HR down to 25/mt, impending cardio pulmonary arrest. Epinephrine 1 mg IV push given stat, followed by one ampule of bicarb and 1 g of calcium chloride. Patient was intubated emergently without any medication as she was comatose. Apparently was hypoxic agitated requiring BiPAP but noncompliant. Received Ativan 2 mg at after midnight and also sent 1 dose of Xanax apparently for agitation 01/12: Remains intubated sedated but ventilator mechanics has improved. FiO2 down to 50%. On propofol and Versed gtt, but wide awake following commands. Off pressors. remains on full alignment 50,000 ng. Start weaning Flolan per protocol 01/13: Persistent muscular weakness due to myasthenia despite IVIG and steroids. Hematology consult to start plasma exchange alternate days . Vas-Cath placed. Continue to wean Flolan per protocol. Chest x-ray with persistent right lower lobe pneumonia 01/14: Started on plasma exchange therapy yesterday for myasthenia crisis leading to respiratory arrest. Currently also receiving treatment for MRSA pneumonia and C. difficile colitis. Myasthenia crisis most likely precipitated by acute infection, pneumonia. Significant muscular weakness persists, patient remains intubated and critically ill. Weaned off Flolan. Oxygenating well, will start CPAP trial to exercise respiratory muscles-unable to extubate due to severe and persistent muscular weakness 01/15: failed CPAP after only 10 minutes for weakness, tachypnea, shallow tidal volume breaths. remains sedated. need to start checking NIFs daily and aggressive PT/OT to prevent further weakness and deconditioning. 01/16: Requesting additional pain medication. Awake and alert. Currently on scheduled #2/5 plasmapheresis. Plan to restart Wednesday 01/17. Positive BM 01/17: Afebrile. Scheduled for plasmapheresis today. We will wean sedation and attempt to extubate postprocedure. Strength much improved. 01/18: Afebrile. Will attempt extubation today. Apneic late last night after plasmapheresis. Arousable and follows commands. Strength 3+5/5 bilateral upper and lower extremity's. Excellent NIF -40 Subjective 01/19: Extubated 01/18 without complication. Currently on 1.5 L nasal cannula. Currently sitting resting in chair. Advance diet as tolerated per speech therapy. Objective Vital Signs Date Time Temp Pulse Resp B/P (MAP) Pulse Ox O2 Delivery O2 Flow Rate FiO2 01/19/18 09:16 98 Nasal Cannula 1.50 01/19/18 06:00 80 01/19/18 04:00 98.0 21 114/59 (77) 01/18/18 08:03 30 Intake and Output 01/19/18 01/19/18 01/20/18 08:00 16:00 00:00 Intake Total 1459 ml Output Total 5350 ml Balance -3891 ml Result Diagram: 01/19/18 0400 01/19/18 0400 Other Results Microbiology Date/Time Source Procedure Growth Status 01/11/18 11:31 Blood Peripheral Aerobic Blood Culture - Final NO GROWTH IN 5 DAYS Complete 01/11/18 11:31 Blood Peripheral Anaerobic Blood Culture - Final NO GROWTH IN 5 DAYS Complete 01/13/18 17:15 Stool Stool Stool Occult Blood (MANUELITO) - Final HEMOCCULT POSITIVE Complete 01/12/18 14:00 Sputum Endotracheal Gram Stain - Final Complete 01/12/18 14:00 Sputum Culture - Final S. Aureus Mrsa Complete 01/11/18 12:20 Urine Catheterized Urine Urine Culture - Final NO GROWTH IN 48 HOURS. Complete Imaging Last Impressions Chest X-Ray 01/19/18 0600 Signed Impressions: Service Date/Time: Friday, January 19, 2018 03:30 - CONCLUSION: Improving bibasilar densities. Reginald Fisher MD Abdomen X-Ray 01/14/18 1007 Signed Impressions: Service Date/Time: Sunday, January 14, 2018 10:11 - CONCLUSION: No dilated loops of small or large bowel. Pilo Walker MD Objective Remarks GEN: 42-year-old female currently orotracheally intubated HEENT: Pupils 2 mm sluggish. Orotracheally intubated Neck: No JVD Chest/Pulm: Air entry diminished at the right base with coarse crackles. Mild amount of secretions CVS: RRR. S1, S3 no S4 without murmur GI/abdomen: soft, nontender, nondistended. no guarding. NEURO: Pupils are reactive. On sedation eyes are spontaneously open. Follows 4. Muscle power 4/5 in upper extremities proximally and distally,2-3/5 in all lower extremity muscles. Some ptosis persist. Barely able to lift head off the pillow Urinary Catheter: Yes Assessment to: Continue Ledezma insert reason: Prolonged Immobilization Vascular Central Line Catheter: No Assessment to: Continue A/P Assessment and Plan Neuro/Psych: Acute Myasthenia crisis Myasthenia gravis Acute toxic metabolic metabolic encephalopathy UDS + cocaine/amphetamine/barbiturates Migraine headaches Chronic opioid use Chronic benzodiazepine use Oxycodone 5-10 mg every 6 hours as needed pain Morphine sulfate 2 mg IV every 4 hours as needed breakthrough pain -Started plasma exchange 01/13/18. Received 3 out of 5. Plan to restart 01/19. Gustavo hematology and neurology input -Plan for 5 sessions of plasma exchange every alternate day -IVIG completed course -Mycophenolate Mofetil 500 mg twice daily, IV methylprednisolone succinate 40 mg IV twice daily, Pyridostigmine [place] 120 mg p.o. 3 times daily On prednisone 5 mg daily at home. Currently on methylprednisolone succinate 40 mg IV every 8 hours -Further recommendations per neurologist -Holding gabapentin 900 mg 3 times daily for neuropathy -Holding sumatriptan inhalation as needed for migraine Holding acetaminophen/butibal/caffeine 325/50/41 tablet every 6 hours as needed migraine headache On chronic oxycodone/acetaminophen 10/325 1 tablet every 6 hours as needed pain On chronic alprazolam 1 mg every 6 hours as needed -Citalopram 40 mg daily held in view of concern regarding overdose. -Psych has seen 01/19. [place] bowie. Transfer to inpatient psych when clinically stable RESP: s/p Respiratory arrest secondary to myasthenia crisis Acute hypoxemic and hypercarbic respiratory failure Right lower lobe pneumonia/MRSA -Emergently intubated and placed on full mechanical ventilation PRVC mode on 01/11. Extubated 01/18 -Myasthenia crisis and respiratory arrest most likely secondary to MRSA pneumonia, and sepsis -Albuterol/ipratropium aerosols every 6 hours scheduled with albuterol aerosols every 2 hours and as needed, Nasal cannula to maintain saturations greater or equal to 92% Incentives parameter while awake - trend daily NIFMIP, MEP - PT/OT consults. OOB to stretcher chair daily to attempt to prevent further deconditioning. CVS: Severe bradycardia most likely from severe respiratory acidosis resolved Sinus tachycardia now- improving. -Severe bradycardia most likely secondary to severe respiratory acidosis, improved rapidly after intubation -Received epinephrine bicarb and calcium -Slightly elevated troponin secondary to above As needed labetalol when necessary for hypertension, tachycardia. Holding Midodrine 5 mg twice daily GI: C. difficile colitis Heme positive stools Pantoprazole 40 mg p.o. daily Advance diet per speech therapy -Bowel regimen with docusate sodium/senna 1 tablet twice daily -On p.o. vancomycin 250 mg 4 times daily and IV 500 mg 3 times daily metronidazole for C. difficile colitis /Endo: -Strict intake output Please replace Ledezma catheter patient with urinary retention Heme: Anemia/normocytic -Continue Ferrous Sulfate 325 mg twice daily/home medication ID: Right lower lobe pneumonia/MRSA C. difficile colitis, recurrent Severe sepsis Continue IV vancomycin, aztreonam, IV metronidazole. P.o. vancomycin started for positive C. difficile colitis Nasal aspirate negative for influenza A and B neg. Urine for strep pneumo and Legionella antigen negative. Sputum 01/12+ for MRSA in sputum Blood cultures 01/11/, 01/10 and 01/09 all no growth to date FEN: Hypokalemia Hypophosphatemia K-Phos, KCl and magnesium sulfate all replace actively overnight. Recheck in a.m. DVT GI prophylaxis -SCDs -Enoxaparin 30 mg subcu daily -Lansoprazole Level 3 follow-up Chirag Diaz MD Jan 19, 2018 12:58
[2018-01-19] MEDS: CALCIUM GLUCONATE IV SCH (13:00)
[2018-01-19] MEDS: SODIUM CHLOR 0.9% IV SCH (13:00)
[2018-01-19] MEDS ORDERED: GLUCAGON 1 MG/ML VIAL OTHER PRN (13:15)
[2018-01-19] MEDS ORDERED: DEXTROSE 50% IN WATER 50 ML VIAL(D50) IV PUSH PRN (13:15)
--- NOTE | 2018-01-19 13:54 | PD.PSY.CON ---
Provisional Diagnosis Admission Date Jan 08, 2018 at 23:07 [place] I. Major depressive disorder, recurrent, severe, without psychosis, substance dependence including cocaine, opiates, cannabis, Xanax [place] II. Unspecified personality disorder [place] III. Myasthenia gravis History of Present Illness Service Psychiatry Consult Requested By Critical care Reason for Consult Intentional overdose Primary Care Physician Non-Staff HPI The patient is a 42-year-old woman, domiciled with her 2 kids in [place], she is but , unemployed, disabled, with psychiatric history of major depressive disorder, 1 previous psychiatric hospitalizations, polysubstance dependence including Xanax, opiates, cannabis, cocaine, medical history of myasthenia gravis, who was admitted in ICU after overdosing with suicidal intentions. Patient was visited by Dr. Gee, but at that time she was too sedated and unable to participate in the psychiatric evaluation. Today patient continues to be poorly cooperative, with difficulty sleeping, receiving breathing treatment which made difficulty communication, but she was able to tell me that she has been feeling as a burden for her family , she does not feel useful anymore, she thinks that her kids can live better without her and she overdosed with intentions to . The patient states that she continues to feel "my life is not going anywhere, I am too seek, my kids do not need me they would be better without me". She says that her relationship with her and her mother are very difficult, her mother is very controlling, which he prefers not to talk about this at this moment. The patient is oriented 3, attention deficit, no gross cognitive impairment present at this moment. Review of Systems Psychiatric: COMPLAINS OF: Depression, Suicidal Ideation Past Family Social History Coded Allergies: penicillin G (Unverified Allergy, Severe, Anaphylaxis, 01/08/18) promethazine (Unverified Adverse Reaction, Severe, NAUSEOUS, 01/08/18) Active Scripts Gabapentin (Neurontin) 300 Mg Cap, 600 MG PO Q8H for Pain Management, #30 CAP Prov:Reginald Aleman MD 12/26/17 Alprazolam (Xanax) 1 Mg Tab, 1 MG PO Q6HR Y for ANXIETY, #40 TAB Prov:Reginald Aleman MD 12/26/17 Ferrous Sulfate (Ferosul) 325 Mg (65 Mg Iron) Tablet, 325 MG PO BID@12,17 for irondef for 30 Days, #60 TAB Prov:Clemencia Martines MD 12/19/17 Gabapentin (Neurontin) 300 Mg Cap, 300 MG PO Q8H, #90 CAP Prov:Godwin Khan MD 11/26/17 [[id number] 325-50-40 Mg] 1 TAB TAB No Conflict Check, 1 TAB PO Q6H Y for HEADACHE, #60 Prov:Godwin Khan MD 11/26/17 Pyridostigmine (Mestinon) 60 Mg Tab, 120 MG PO TIDAC for Manage Myastenia Gravis , #360 TAB 0 Refills Prov:Godwin Khan MD 11/26/17 Mycophenolate (Cellcept) 500 Mg Tab, 500 MG PO BID for Immunosuppression, #60 TAB 0 Refills Prov:Godwin Khan MD 11/26/17 Prednisone (Prednisone) 5 Mg Tab, 5 MG PO DAILY, #30 TAB 0 Refills Prov:Godwin Khan MD 11/26/17 Citalopram (Citalopram) 40 Mg Tab, 40 MG PO DAILY for Control Depression, #30 TAB 0 Refills Prov:Godwin Khan MD 11/26/17 Lactobacillus Acidophilus (Lactinex) 1 Chew, 1 TAB CHEW DAILY for Nutritional Supplement, #30 TAB 0 Refills Prov:Godwin Khan MD 11/26/17 Sumatriptan (Imitrex) 50 Mg Tab, 50 MG PO as needed Y for HEADACHE, #30 TAB 0 Refills If a satisfactory response has not been obtained at 2 hours, a second dose may be administered Prov:Godwin Khan MD 11/26/17 Reported Medications Aspirin (Aspirin) 81 Mg Chew, 81 MG CHEW DAILY, TAB 0 Refills 01/08/18 Midodrine (Midodrine) 5 Mg Tab, 5 MG PO BID for Control Low Blood Pressure, #90 TAB 0 Refills 12/15/17 Oxycodone-Acetaminophen (Percocet) 10-325 mg Tab, 1 TAB PO Q6H Y for PAIN, TAB 0 Refills 12/15/17 Alprazolam (Xanax) 1 Mg Tab, 1 MG PO Q8H Y for ANXIETY, TAB 0 Refills 12/15/17 Current Medications Medications (Trade) Dose Ordered Sig/Gómez Route Start Time Stop Time Status Last Admin (Aspirin Chew) 81 mg DAILY CHEW 01/09/18 09:00 01/19/18 07:53 (CeleXA) 40 mg DAILY PO 01/09/18 09:00 Future Hold (Ferrous Sulfate) 325 mg BID@12,17 PO 01/09/18 12:00 01/19/18 10:38 (Neurontin) 300 mg Q8H PO 01/08/18 23:15 Future Hold (Deltasone) 5 mg DAILY PO 01/09/18 09:00 Future Hold 01/10/18 08:20 (Mestinon) 120 mg TIDAC PO 01/09/18 08:00 01/19/18 12:07 (Lactinex) 1 tab DAILY PO 01/09/18 09:00 01/19/18 07:53 (NS Flush) 2 ml UNSCH PRN IV FLUSH 01/08/18 23:30 01/12/18 08:13 (NS Flush) 2 ml BID IV FLUSH 01/09/18 09:00 01/19/18 08:27 (Zofran Inj) 4 mg Q6H PRN IV PUSH 01/08/18 23:30 01/10/18 13:09 (Lovenox Inj) 30 mg Q24H SQ 01/08/18 23:30 01/18/18 21:56 Miscellaneous Information 1 Q361D XX 01/08/18 23:30 01/08/18 23:30 (Chlorhexidine 2% Cloth) Taper DAILY@04 TOP 01/09/18 04:00 01/05/19 03:59 01/17/18 04:00 (Chlorhexidine 2% Cloth) 3 pack UNSCH PRN TOP 01/08/18 23:30 (Bonita-Colace) 1 tab BID PO 01/09/18 09:00 01/18/18 20:49 (Milk Of Magnesia Liq) 30 ml Q12H PRN PO 01/08/18 23:30 01/10/18 17:53 (Senokot) 17.2 mg Q12H PRN PO 01/08/18 23:30 (Dulcolax Supp) 10 mg DAILY PRN RECTAL 01/08/18 23:30 (Lactulose Liq) 30 ml DAILY PRN PO 01/08/18 23:30 Potassium Chloride 100 ml @ 50 mls/hr Q2H PRN IV 01/09/18 00:00 01/14/18 05:39 Potassium Chloride 100 ml @ 50 mls/hr Q2H PRN IV 01/09/18 00:00 01/18/18 13:28 (K-Lyte Cl Eff) 50 meq UNSCH PRN PO 01/09/18 00:00 Potassium Chloride 100 ml @ 25 mls/hr UNSCH PRN IV 01/09/18 00:00 01/10/18 08:19 Potassium Chloride 100 ml @ 50 mls/hr Q2H PRN IV 01/09/18 00:00 Magnesium Sulfate 4 gm/Sodium Chloride 100 ml @ 50 mls/hr UNSCH PRN IV 01/09/18 00:00 (Mag-Ox) 800 mg UNSCH PRN PO 01/09/18 00:00 Magnesium Sulfate 2 gm/Sodium Chloride 100 ml @ 50 mls/hr UNSCH PRN IV 01/09/18 00:00 01/18/18 06:04 (K-Phos) 2,000 mg Q4H PRN PO 01/09/18 00:00 01/18/18 06:04 Sodium Phosphate 30 mmol/Sodium Chloride 250 ml @ 42 mls/hr UNSCH PRN IV 01/09/18 00:00 (K-Phos) 2,000 mg UNSCH PRN PO/TUBE 01/09/18 00:00 Potassium Phosphate 30 mmol/ Sodium Chloride 260 ml @ 42 mls/hr UNSCH PRN IV 01/09/18 00:00 (Imitrex Inj) 6 mg Q12H PRN SQ 01/09/18 03:45 Future Hold 01/15/18 21:17 (Peridex 0.12% Liq) 15 ml BID@08,20 MT 01/09/18 08:00 01/18/18 08:21 (Trandate Inj) 10 mg Q2HR PRN IV PUSH 01/09/18 08:00 01/10/18 21:23 (Ativan Inj) 2 mg Q4H PRN IV PUSH 01/09/18 08:30 01/19/18 07:54 (SoluMEDROL INJ) 40 mg Q8H IV PUSH 01/11/18 09:00 01/19/18 08:26 (Pulmicort Respule Neb) 0.5 mg Q12HR NEB NEB 01/11/18 08:45 01/19/18 09:15 Aztreonam 2000 mg/ Sodium Chloride 100 ml @ 200 mls/hr Q8H IV 01/11/18 11:00 01/19/18 11:32 Metronidazole 100 ml @ 100 mls/hr Q8H IV 01/11/18 10:00 01/19/18 10:38 (Beneprotein Powder) 1 pack TID G-TUBE 01/12/18 13:00 01/18/18 08:24 (NS Flush) 5 ml UNSCH PRN IV FLUSH 01/13/18 11:15 (Heparin Inj) 2,000 units UNSCH PRN IV FLUSH 01/13/18 11:15 Albumin Human 2,600 ml @ 250 mls/hr Q48H IV 01/13/18 13:00 01/21/18 23:23 01/19/18 12:07 (Benadryl Inj) 25 mg UNSCH PRN IV PUSH 01/13/18 11:15 01/23/18 11:14 Calcium Gluconate 3 gm/Sodium Chloride 280 ml @ 90 mls/hr Q48H IV 01/13/18 13:00 01/21/18 16:07 01/17/18 13:00 Sodium Chloride 1,000 ml @ 0 mls/hr Q0M IV 01/13/18 11:15 01/23/18 11:14 (Acd Formula Inj) 1,000 ml Q48H OTHER 01/13/18 13:00 01/23/18 18:00 01/17/18 13:00 (NS Flush) 10 ml UNSCH PRN IV FLUSH 01/13/18 11:15 (Heparin Inj) 5,000 units UNSCH PRN IV FLUSH 01/13/18 11:15 01/23/18 11:14 (Heparin Inj) 1,000 units UNSCH PRN IV FLUSH 01/13/18 11:15 01/23/18 11:14 Pharmacy Profile Note 0 ml @ 0 mls/hr UNSCH OTHER 01/13/18 14:30 (VANCOMYCIN for oral use only) 250 mg QID PO 4/5/18 18:00 01/19/18 07:54 (Tylenol 650 Mg/ 20 ml Liq) 650 mg Q6H PRN PO 01/16/18 13:30 (Albuterol Neb) 2.5 mg Q2HR NEB PRN NEB 01/16/18 13:30 (Mag-Ox) 400 mg Q12HR PO 01/18/18 21:00 01/20/18 20:59 01/19/18 07:54 (Duoneb Neb) 1 ampule Q6HR NEB NEB 01/18/18 16:00 01/19/18 09:15 Vancomycin HCl 1200 mg/Sodium Chloride 262 ml @ 250 mls/hr Q8H IV 01/18/18 12:00 01/19/18 12:07 Miscellaneous Information SPECIFIC LAB TO BE DRAWN:VANCOMYCIN TROUGH DATE TO... ONCE ONCE .XX 01/19/18 19:45 01/19/18 19:46 Potassium Phosphate 30 mmol/ Sodium Chloride 260 ml @ 43.333 mls/ hr ONCE ONCE IV 01/19/18 15:00 01/19/18 20:59 (NovoLOG SUPPLEMENTAL SCALE) 1 ACHS SQ 01/19/18 17:00 (Protonix) 40 mg DAILY PO 01/20/18 09:00 (Roxicodone) 5 mg Q6H PRN PO 01/19/18 12:45 (Morphine Inj) 2 mg Q3H PRN IV PUSH 01/19/18 12:45 (Roxicodone) 10 mg Q6H PRN PO 01/19/18 12:45 (D50w (Vial) Inj) 50 ml UNSCH PRN IV PUSH 01/19/18 13:15 (Glucagon Inj) 1 mg UNSCH PRN OTHER 01/19/18 13:15 Family Psych History Her father is an alcoholic Social History Patient was born and raised in [facility], she lives with her 2 kids in [facility], she is but , unemployed, supported by disability, she has 2 boys one is 9 years old, another 12 years old, her highest level of education is high school Patient's Strengths (min. 2) Under observation Physical Exam Vital Signs Vital Signs Date Time Temp Pulse Resp B/P (MAP) Pulse Ox O2 Delivery O2 Flow Rate FiO2 01/19/18 09:16 98 Nasal Cannula 1.50 01/19/18 06:00 80 01/19/18 04:00 98.0 21 114/59 (77) 01/18/18 08:03 30 I/O 01/19/18 01/19/18 01/20/18 08:00 16:00 00:00 Intake Total 1459 ml Output Total 5350 ml Balance -3891 ml Lab Results Test 01/19/18 04:00 White Blood Count 11.8 TH/MM3 Red Blood Count 4.02 MIL/MM3 Hemoglobin 10.4 GM/DL Hematocrit 32.6 % Mean Corpuscular Volume 81.0 FL Mean Corpuscular Hemoglobin 25.9 PG Mean Corpuscular Hemoglobin Concent 32.0 % Red Cell Distribution Width 25.0 % Platelet Count 330 TH/MM3 Mean Platelet Volume 8.4 FL Neutrophils (%) (Auto) 88.3 % Lymphocytes (%) (Auto) 7.1 % Monocytes (%) (Auto) 4.4 % Eosinophils (%) (Auto) 0.1 % Basophils (%) (Auto) 0.1 % Neutrophils # (Auto) 10.4 TH/MM3 Lymphocytes # (Auto) 0.8 TH/MM3 Monocytes # (Auto) 0.5 TH/MM3 Eosinophils # (Auto) 0.0 TH/MM3 Basophils # (Auto) 0.0 TH/MM3 CBC Comment AUTO DIFF Differential Comment AUTO DIFF CONFIRMED Platelet Estimate NORMAL Platelet Morphology Comment NORMAL Tear Drop Cells 1+ Ovalocytes 1+ Prothrombin Time 10.7 SEC Prothromb Time International Ratio 1.1 RATIO Activated Partial Thromboplast Time 26.2 SEC Fibrinogen 216 mg/dL Blood Urea Nitrogen 4 MG/DL Creatinine 0.40 MG/DL Random Glucose 121 MG/DL Total Protein 6.2 GM/DL Albumin 3.9 GM/DL Calcium Level 8.6 MG/DL Phosphorus Level 2.2 MG/DL Magnesium Level 2.3 MG/DL Alkaline Phosphatase 25 U/L Aspartate Amino Transf (AST/SGOT) 14 U/L Alanine Aminotransferase (ALT/SGPT) 14 U/L Total Bilirubin 0.3 MG/DL Sodium Level 144 MEQ/L Potassium Level 3.7 MEQ/L Chloride Level 107 MEQ/L Carbon Dioxide Level 29.9 MEQ/L Anion Gap 7 MEQ/L Estimat Glomerular Filtration Rate 176 ML/MIN Date/Time Source Procedure Growth Status 01/11/18 11:31 Blood Peripheral Aerobic Blood Culture - Final NO GROWTH IN 5 DAYS Complete 01/11/18 11:31 Blood Peripheral Anaerobic Blood Culture - Final NO GROWTH IN 5 DAYS Complete 01/13/18 17:15 Stool Stool Stool Occult Blood (MANUELITO) - Final HEMOCCULT POSITIVE Complete 01/12/18 14:00 Sputum Endotracheal Gram Stain - Final Complete 01/12/18 14:00 Sputum Culture - Final S. Aureus Mrsa Complete 01/11/18 12:20 Urine Catheterized Urine Urine Culture - Final NO GROWTH IN 48 HOURS. Complete Mental Status Examination Appearance: Disheveled Consciousness: Alert Orientation: x4 Speech: Unremarkable, Hesitant, Other (Limited due to difficult to breathe) Language: Adequate Fund of Knowledge: Adequate Attention and Concentration: Adequate Memory: Unremarkable Mood: Sad Affect: Sad Thought Process & Associations: Goal directed Thought Content: Appropriate Hallucination Type: None Delusion Type: None Suicidal Ideation: Yes Suicidal Plan: No Suicidal Intention: Yes Homicidal Ideation: No Homicidal Plan: No Homicidal Intention: No Insight: Poor Judgment: Poor Assessment & Plan Problem List: (1) Depressive disorder ICD Codes: F32.9 - Major depressive disorder, single episode, unspecified Assessment & Plan: The patient admits that she has overdosed with intention to commit suicide. Due to limitations in communication given her respiratory difficulty at this moment a full psychiatric assessment is not possible. But, the patient is able to communicate that she has been having feelings of worthlessness, helplessness, hopelessness, being a burden for her family, feeling of frustration due to her medical problems, continues polysubstance abuse what finally led to a suicidal attempt. Patient definitely is at high risk of danger to self and others. Patient needs psychiatric hospitalization for stabilization. I will go ahead and Osborne act the patient at this right moment. Patient must remain in close observation in the ICU. If transferred to medical floor she must remain in 1:1. Once medically stable, the patient must be transferred to psychiatry to continue psychiatric treatment. I will start Celexa 10 mg daily for depression. Continue Ativan 2 mg every 8 hours as needed anxiety and benzodiazepines withdrawal. will Follow-up Assessment & Plan Estimated LOS: Gonzalez Meyer MD Jan 19, 2018 13:54
[2018-01-19] MEDS ORDERED: PILL SPLITTER OTHER PRN (14:00)
[2018-01-19] MEDS: CITALOPRAM HYDROBROMIDE 20 MG TAB PO SCH (14:29)
--- NOTE | 2018-01-19 14:49 | PD.ONC.PN ---
Subjective Subjective Remarks Afebrile overnight. Patient sitting up in chair out of bed today. states she feels globally weak, but denies difficulty swallowing or speaking. Objective Data Date Time Temp Pulse Resp B/P (MAP) Pulse Ox O2 Delivery O2 Flow Rate FiO2 01/19/18 09:16 98 Nasal Cannula 1.50 01/19/18 06:00 80 01/19/18 04:00 68 01/19/18 04:00 98.0 68 21 114/59 (77) 100 01/19/18 02:00 67 01/19/18 00:00 98.3 84 21 129/73 (91) 100 01/19/18 00:00 84 01/18/18 22:00 96 01/18/18 21:04 100 Nasal Cannula 2.00 01/18/18 20:00 98.3 82 18 125/75 (92) 100 01/18/18 20:00 82 01/18/18 18:00 72 01/18/18 16:55 22 01/18/18 16:00 76 01/18/18 16:00 98.3 76 15 142/79 (100) 92 01/19/18 01/19/18 01/19/18 07:00 15:00 23:00 Intake Total 1459 ml Output Total 5350 ml Balance -3891 ml Result Diagram: 01/19/18 0400 01/19/18 0400 Laboratory Results Laboratory Tests Test 01/19/18 04:00 White Blood Count 11.8 TH/MM3 Red Blood Count 4.02 MIL/MM3 Hemoglobin 10.4 GM/DL Hematocrit 32.6 % Mean Corpuscular Volume 81.0 FL Mean Corpuscular Hemoglobin 25.9 PG Mean Corpuscular Hemoglobin Concent 32.0 % Red Cell Distribution Width 25.0 % Platelet Count 330 TH/MM3 Mean Platelet Volume 8.4 FL Neutrophils (%) (Auto) 88.3 % Lymphocytes (%) (Auto) 7.1 % Monocytes (%) (Auto) 4.4 % Eosinophils (%) (Auto) 0.1 % Basophils (%) (Auto) 0.1 % Neutrophils # (Auto) 10.4 TH/MM3 Lymphocytes # (Auto) 0.8 TH/MM3 Monocytes # (Auto) 0.5 TH/MM3 Eosinophils # (Auto) 0.0 TH/MM3 Basophils # (Auto) 0.0 TH/MM3 CBC Comment AUTO DIFF Differential Comment AUTO DIFF CONFIRMED Platelet Estimate NORMAL Platelet Morphology Comment NORMAL Tear Drop Cells 1+ Ovalocytes 1+ Prothrombin Time 10.7 SEC Prothromb Time International Ratio 1.1 RATIO Activated Partial Thromboplast Time 26.2 SEC Fibrinogen 216 mg/dL Blood Urea Nitrogen 4 MG/DL Creatinine 0.40 MG/DL Random Glucose 121 MG/DL Total Protein 6.2 GM/DL Albumin 3.9 GM/DL Calcium Level 8.6 MG/DL Phosphorus Level 2.2 MG/DL Magnesium Level 2.3 MG/DL Alkaline Phosphatase 25 U/L Aspartate Amino Transf (AST/SGOT) 14 U/L Alanine Aminotransferase (ALT/SGPT) 14 U/L Total Bilirubin 0.3 MG/DL Sodium Level 144 MEQ/L Potassium Level 3.7 MEQ/L Chloride Level 107 MEQ/L Carbon Dioxide Level 29.9 MEQ/L Anion Gap 7 MEQ/L Estimat Glomerular Filtration Rate 176 ML/MIN Imaging Studies Last 24 hours Impressions Chest X-Ray 01/19/18 0600 Signed Impressions: Service Date/Time: Friday, January 19, 2018 03:30 - CONCLUSION: Improving bibasilar densities. Reginald Fisher MD Administered Medications Medications (Trade) Dose Ordered Sig/Gómez Route PRN Reason Start Time Stop Time Status Last Admin Dose Admin Aspirin (Aspirin Chew) 81 mg DAILY CHEW 01/09/18 09:00 01/19/18 07:53 Ferrous Sulfate (Ferrous Sulfate) 325 mg BID@12,17 PO 01/09/18 12:00 01/19/18 10:38 Prednisone (Deltasone) 5 mg DAILY PO 01/09/18 09:00 Future Hold 01/10/18 08:20 Pyridostigmine [place] (Mestinon) 120 mg TIDAC PO 01/09/18 08:00 01/19/18 12:07 Lactobacillus Acidophilus (Lactinex) 1 tab DAILY PO 01/09/18 09:00 01/19/18 07:53 Sodium Chloride (NS Flush) 2 ml UNSCH PRN IV FLUSH FLUSH AFTER USING IV ACCESS 01/08/18 23:30 01/12/18 08:13 Sodium Chloride (NS Flush) 2 ml BID IV FLUSH 01/09/18 09:00 01/19/18 08:27 Ondansetron HCl (Zofran Inj) 4 mg Q6H PRN IV PUSH NAUSEA OR VOMITING 01/08/18 23:30 01/10/18 13:09 Enoxaparin Sodium (Lovenox Inj) 30 mg Q24H SQ 01/08/18 23:30 01/18/18 21:56 Miscellaneous Information 1 Q361D XX 01/08/18 23:30 01/08/18 23:30 Chlorhexidine Gluconate (Chlorhexidine 2% Cloth) Taper DAILY@04 TOP 01/09/18 04:00 01/05/19 03:59 01/17/18 04:00 Senna/Docusate Sodium (Bonita-Colace) 1 tab BID PO 01/09/18 09:00 01/18/18 20:49 Magnesium Hydroxide (Milk Of Magnesia Liq) 30 ml Q12H PRN PO Mild constipation 01/08/18 23:30 01/10/18 17:53 Potassium Chloride 100 ml @ 50 mls/hr Q2H PRN IV For Potassium 2.8 - 3.2 mEq/L 01/09/18 00:00 01/14/18 05:39 Potassium Chloride 100 ml @ 50 mls/hr Q2H PRN IV For Potassium 2.8 - 3.2 mEq/L 01/09/18 00:00 01/18/18 13:28 Potassium Chloride 100 ml @ 25 mls/hr UNSCH PRN IV For Potassium 3.3 - 3.5 mEq/L 01/09/18 00:00 01/10/18 08:19 Magnesium Sulfate 2 gm/Sodium Chloride 100 ml @ 50 mls/hr UNSCH PRN IV For Magnesium 1.2 - 1.6 mg/dL 01/09/18 00:00 01/18/18 06:04 Potassium Phosphate (K-Phos) 2,000 mg Q4H PRN PO For Phosphorus < 2.5 mg/dL 01/09/18 00:00 01/18/18 06:04 Sumatriptan Succinate (Imitrex Inj) 6 mg Q12H PRN SQ HEADACHE/ MIGRAINE 01/09/18 03:45 Future Hold 01/15/18 21:17 Chlorhexidine Gluconate (Peridex 0.12% Liq) 15 ml BID@08,20 MT 01/09/18 08:00 01/18/18 08:21 Labetalol HCl (Trandate Inj) 10 mg Q2HR PRN IV PUSH SBP greater than 160mm Hg 01/09/18 08:00 01/10/18 21:23 Lorazepam (Ativan Inj) 2 mg Q4H PRN IV PUSH agitation 01/09/18 08:30 01/19/18 07:54 Methylprednisolone Sodium Succinate (SoluMEDROL INJ) 40 mg Q8H IV PUSH 01/11/18 09:00 01/19/18 08:26 Budesonide (Pulmicort Respule Neb) 0.5 mg Q12HR NEB NEB 01/11/18 08:45 01/19/18 09:15 Aztreonam 2000 mg/ Sodium Chloride 100 ml @ 200 mls/hr Q8H IV 01/11/18 11:00 01/19/18 11:32 Metronidazole 100 ml @ 100 mls/hr Q8H IV 01/11/18 10:00 01/19/18 10:38 Protein (Beneprotein Powder) 1 pack TID G-TUBE 01/12/18 13:00 01/18/18 08:24 Albumin Human 2,600 ml @ 250 mls/hr Q48H IV 01/13/18 13:00 01/21/18 23:23 01/19/18 12:07 Calcium Gluconate 3 gm/Sodium Chloride 280 ml @ 90 mls/hr Q48H IV 01/13/18 13:00 01/21/18 16:07 01/19/18 13:00 Anticoagulant Citrate Dextose Cindy A (Acd Formula Inj) 1,000 ml Q48H OTHER 01/13/18 13:00 01/23/18 18:00 01/17/18 13:00 Vancomycin HCl (VANCOMYCIN for oral use only) 250 mg QID PO 01/13/18 18:00 01/19/18 14:30 Magnesium Oxide (Mag-Ox) 400 mg Q12HR PO 01/18/18 21:00 01/20/18 20:59 01/19/18 07:54 Albuterol/ Ipratropium (Duoneb Neb) 1 ampule Q6HR NEB NEB 01/18/18 16:00 01/19/18 09:15 Vancomycin HCl 1200 mg/Sodium Chloride 262 ml @ 250 mls/hr Q8H IV 01/18/18 12:00 01/19/18 12:07 Potassium Phosphate 30 mmol/ Sodium Chloride 260 ml @ 43.333 mls/ hr ONCE ONCE IV 01/19/18 15:00 01/19/18 20:59 01/19/18 14:29 Oxycodone HCl (Roxicodone) 10 mg Q6H PRN PO pain 6-10 01/19/18 12:45 01/19/18 14:36 Citalopram Hydrobromide (CeleXA) 10 mg DAILY PO 01/19/18 13:45 01/19/18 14:29 Objective Remarks GENERAL: young woman, sitting up in chair next to bed. On 1.5L O2 via NC SKIN: Warm and dry. vas-cath in place, no bleeding HEAD: Normocephalic. EYES: No injection or drainage. NECK: Supple, trachea midline. CARDIOVASCULAR: Regular rate and rhythm RESPIRATORY: diminished at bases, anterior torres clear. GASTROINTESTINAL: Abdomen soft, non-tender, nondistended. EXTREMITIES: No cyanosis NEUROLOGICAL: awake and alert. normal speech. moving extremities. Assessment/Plan Assessment 42y/o female with myasthenia gravis, admitted in respiratory distress with altered mental status. Plan 1. proceed with pex 4/5 today. 2. monitor CBC, coags 3. continue supportive care Attending Statement The exam, history, and the medical decision-making described in the above note were completed with the assistance of the mid-level provider. I reviewed and agree with the findings presented. I attest that I had a [id number] encounter with the patient on the same day, and personally performed and documented my assessment and findings in the medical record. 42 yoF with MRSA pneumonia, C diff, myasthania gravis with myasthenic crisis. Received 4/5 planned sessions of pheresis today. Lor Ochoa Jan 19, 2018 14:49 Tammy Jose MD Jan 20, 2018 07:19
[2018-01-19] MEDS ORDERED: POTASSIUM PHOSPHATE INJ 30 MMOL in SODIUM CHLOR 0.9% 250 ML INJ 250 ML IV ONE (15:00)
[2018-01-19] MEDS: ANTICOAGULANT CITRATE DEXTROSE SOLN-A 1L OTHER SCH (17:00)
[2018-01-19] MEDS: MORPHINE SULFATE 2 MG/ML SYRINGE IV PUSH PRN ×2 (17:22→22:26)
[2018-01-19] MEDS ORDERED: PHARMACY ORDERED LAB ONE (19:45)
[2018-01-19] MEDS: ONDANSETRON HCL 4 MG/2 ML VIAL IV PUSH PRN (19:56)
[2018-01-19] MEDS: ENOXAPARIN SODIUM 30 MG/0.3 ML SYRINGE SQ SCH (22:27)
[2018-01-20] VITALS (20 sets, daily range): BP systolic 106–141; BP diastolic 56–80; PULSE 58–102; RESP 16–36; TEMP 98–98.7; O2SAT 90–100
[2018-01-20] MEDS: metroNIDAZOLE 500 MG INJ 100 ML IV SCH ×3 (02:08→18:27)
[2018-01-20] MEDS: methylPREDNISolone SOD SUCC 125 MG/2 ML VIAL IV PUSH SCH ×3 (02:08→15:34)
[2018-01-20] MEDS: VANCOMYCIN 1,000 MG/NS 250 ML IV SCH ×8 (02:48→19:49)
[2018-01-20] MEDS: AZTREONAM INJ 2,000 MG in SODIUM CHLORIDE 0.9% INJ 100 ML IV SCH ×3 (03:00→18:27)
[2018-01-20] MEDS: RESP: ALBUTEROL 2.5 MG/IPRATROPIUM 0.5 MG NEB (SCH) NEB ×4 (03:28→21:39)
[2018-01-20] MEDS: LORazepam 2 MG/ML VIAL IV PUSH PRN ×4 (03:39→21:32)
[2018-01-20] MEDS: CHLORHEXIDINE GLUCONATE 2 % 1 PACK (2 CLOTHS) TOP SCH (04:00)
--- NOTE | 2018-01-20 04:46 | RADRPT ---
EXAM DATE/TIME: 01/20/2018 02:47 [place] COMPARISON: CHEST SINGLE AP, January 19, 2018, 3:30. INDICATIONS : Shortness of breath, possible pulmonary disease. MEDICAL HISTORY : Myasthenia gravis SURGICAL HISTORY : Thymectomy ENCOUNTER: Subsequent ACUITY: 1 week PAIN SCORE: 0/10 LOCATION: Bilateral chest FINDINGS: A single view of the chest demonstrates improving bibasilar densities. Right jugular line and left-si ded port are stable.. The cardiomediastinal contours are unremarkable. Osseous structures are intac t. CONCLUSION: Improving bibasilar densities. Reginald Fisher MD on January 20, 2018 at 4:45 Board Certified Radiologist. This report was verified electronically.
[2018-01-20] MEDS: MORPHINE SULFATE 2 MG/ML SYRINGE IV PUSH PRN ×6 (04:56→22:50)
[2018-01-20 05:18] LABS: AUTOMATED NEUTROPHIL # 12.3 TH/MM3 (1.8-7.7); BASOPHIL % 0.1 % (0.0-2.0); HEMATOCRIT 29.7 % (35.0-46.0); HEMOGLOBIN 9.5 GM/DL (11.6-15.3); LYMPH % 13.7 % (9.0-44.0); LYMPHOCYTE # 2.1 TH/MM3 (1.0-4.8); MEAN CELL VOLUME 81.5 FL (80.0-100.0); MEAN CORPUSCULAR HGB CONC 31.9 % (32.0-36.0); MEAN PLATELET VOLUME 7.9 FL (7.0-11.0); MONO % 5.2 % (0.0-8.0); MONOCYTE # 0.8 TH/MM3 (0-0.9); PLATELET COUNT 318 TH/MM3 (150-450); RED BLOOD COUNT 3.65 MIL/MM3 (4.00-5.30); WHITE BLOOD COUNT 15.2 TH/MM3 (4.0-11.0)
[2018-01-20 05:24] LABS: INTERNATIONAL NORMALIZED RATIO 1.3 RATIO; PROTHROMBIN TIME - PATIENT 12.7 SEC (9.8-11.6)
[2018-01-20 05:44] LABS: ALBUMIN 4.4 GM/DL (3.4-5.0); AST (GOT) 10 U/L (15-37); BICARBONATE 30.7 MEQ/L (21.0-32.0); BLOOD UREA NITROGEN 4 MG/DL (7-18); CHLORIDE 108 MEQ/L (98-107); CREATININE 0.44 MG/DL (0.50-1.00); GLOMERULAR FILTRATION RATE 158 ML/MIN (>89); GLUCOSE,RANDOM 92 MG/DL (74-106); MAGNESIUM 1.9 MG/DL (1.5-2.5); SODIUM (NA) 143 MEQ/L (136-145)
[2018-01-20 05:45] LABS: ALT (GPT) 13 U/L (10-53); PHOSPHORUS 2.5 MG/DL (2.5-4.9)
[2018-01-20 05:47] LABS: ALKALINE PHOSPHATASE 16 U/L (45-117); TOTAL BILIRUBIN ADULT 0.3 MG/DL (0.2-1.0); TOTAL PROTEIN 5.9 GM/DL (6.4-8.2)
[2018-01-20] MEDS: INSULIN ASPART SUPPLEMENTAL SCALE SQ SCH ×4 (08:00→20:09)
[2018-01-20] MEDS: CHLORHEXIDINE 0.12% (ORAL KIT) 15 ML CUP MT SCH ×2 (08:00→19:49)
[2018-01-20] MEDS: SODIUM CHLORIDE 0.9% FLUSH 10 ML FLUSH IV FLUSH SCH ×2 (08:00→12:52)
[2018-01-20] MEDS: CITALOPRAM HYDROBROMIDE 20 MG TAB PO SCH (08:01)
[2018-01-20] MEDS: ASPIRIN 81 MG CHEW TAB CHEW SCH (08:01)
[2018-01-20] MEDS: PANTOPRAZOLE SOD 40 MG DELAYED RELEASE TAB PO SCH (08:02)
[2018-01-20] MEDS: LACTOBACILLUS ACIDOPHILUS TAB PO SCH (08:02)
[2018-01-20] MEDS: MAGNESIUM OXIDE 400 MG TAB PO SCH (08:02)
[2018-01-20] MEDS: BENEPROTEIN POWDER 1 PACK G-TUBE SCH ×3 (08:02→18:00)
[2018-01-20] MEDS: PYRIDOSTIGMINE BROMIDE 60 MG TAB PO SCH ×3 (08:03→19:48)
[2018-01-20] MEDS: DOCUSATE SODIUM 50 MG/SENNA 8.6 MG TAB PO SCH ×2 (08:03→19:49)
[2018-01-20] MEDS: RESP: BUDESONIDE 0.5 MG/2 ML NEB NEB SCH ×2 (08:23→21:39)
[2018-01-20] MEDS: VANCOMYCIN 500 MG VIAL (FOR ORAL USE ONLY) PO SCH ×4 (09:55→19:49)
[2018-01-20] MEDS: FERROUS SULFATE 325 MG (65 MG ELEMENTAL IRON) TAB PO SCH ×2 (12:50→18:27)
--- NOTE | 2018-01-20 13:27 | HHI.CCPN ---
Subjective Remarks/Hospital Course 01/08: 42-year-old unfortunate female presenting to the emergency department for evaluation of altered mental status. This is her seventh admission within the last 5 months for the similar symptoms. Per EMS patient's ex- found her in bed yesterday, apparently at that time she was still verbal. When he returned home this afternoon she was not responding, stiff and moaning. H&P is limited due to patient's clinical condition. Her last admission was 2 weeks ago with a diagnosis of myasthenia gravis exacerbation. Per ED documentation report she has been sick with flulike symptoms all week including nausea and vomiting and diarrhea. She has been unable to keep down any of her medications. Every time she eats she has a bowel movement. Per ED reports she also intentionally overdosed with Midodrin. 01/09: Patient agitated and anxious this morning not verbalizing. Appeared to have some tachypnea and dyspnea. Patient became extremely anxious and agitated with heart rate going up to the 160s and blood pressure 170s systolic. She had dilated pupils bilaterally despite Ativan 2 mg IV given earlier to control anxiety, probably secondary to cocaine and amphetamines in her system as her tox screen came back positive for cocaine, amphetamines, barbiturates. Patient was emergently intubated using etomidate for sedation and placed on mechanical ventilation. No neuromuscular blockade was used during intubation in view of myasthenia gravis. Her heart rate came down to 150s following intubation. 1 L normal saline fluid bolus was ordered following which heart rate came down to 120s. 01/10: Resting comfortably on sedation, awake and alert, orally intubated on mechanical ventilation. On propofol Versed and fentanyl drips. Following commands appropriately, moving all 4 extremities. Denies any shortness of breath by shaking her head. 01/11: I was emergently called to the bedside today as patient was unresponsive with agonal breathing hardly 2-3 breaths per minute, and severe bradycardia, HR down to 25/mt, impending cardio pulmonary arrest. Epinephrine 1 mg IV push given stat, followed by one ampule of bicarb and 1 g of calcium chloride. Patient was intubated emergently without any medication as she was comatose. Apparently was hypoxic agitated requiring BiPAP but noncompliant. Received Ativan 2 mg at after midnight and also sent 1 dose of Xanax apparently for agitation 01/12: Remains intubated sedated but ventilator mechanics has improved. FiO2 down to 50%. On propofol and Versed gtt, but wide awake following commands. Off pressors. remains on full alignment 50,000 ng. Start weaning Flolan per protocol 01/13: Persistent muscular weakness due to myasthenia despite IVIG and steroids. Hematology consult to start plasma exchange alternate days . Vas-Cath placed. Continue to wean Flolan per protocol. Chest x-ray with persistent right lower lobe pneumonia 01/14: Started on plasma exchange therapy yesterday for myasthenia crisis leading to respiratory arrest. Currently also receiving treatment for MRSA pneumonia and C. difficile colitis. Myasthenia crisis most likely precipitated by acute infection, pneumonia. Significant muscular weakness persists, patient remains intubated and critically ill. Weaned off Flolan. Oxygenating well, will start CPAP trial to exercise respiratory muscles-unable to extubate due to severe and persistent muscular weakness 01/15: failed CPAP after only 10 minutes for weakness, tachypnea, shallow tidal volume breaths. remains sedated. need to start checking NIFs daily and aggressive PT/OT to prevent further weakness and deconditioning. 01/16: Requesting additional pain medication. Awake and alert. Currently on scheduled #2/5 plasmapheresis. Plan to restart Wednesday 01/17. Positive BM 01/17: Afebrile. Scheduled for plasmapheresis today. We will wean sedation and attempt to extubate postprocedure. Strength much improved. 01/18: Afebrile. Will attempt extubation today. Apneic late last night after plasmapheresis. Arousable and follows commands. Strength 3+5/5 bilateral upper and lower extremity's. Excellent NIF -40 01/19: Extubated 01/18 without complication. Currently on 1.5 L nasal cannula. Currently sitting resting in chair. Advance diet as tolerated per speech therapy. Subjective 01/20: Afebrile. Currently on nasal cannula 2 L saturating her percent. Status post plasmapheresis yesterday. Next plan for tomorrow number 5 out of 5. Pain control with oxycodone Objective Vital Signs Date Time Temp Pulse Resp B/P (MAP) Pulse Ox O2 Delivery O2 Flow Rate FiO2 01/20/18 08:25 100 Nasal Cannula 2.00 01/20/18 06:00 58 01/20/18 04:00 98.0 17 128/74 (92) 01/18/18 08:03 30 Intake and Output 01/20/18 01/20/18 01/21/18 08:00 16:00 00:00 Intake Total 930 ml Output Total 2100 ml Balance -1170 ml Result Diagram: 01/20/18 0445 01/20/18 0445 Other Results Microbiology Date/Time Source Procedure Growth Status 01/11/18 11:31 Blood Peripheral Aerobic Blood Culture - Final NO GROWTH IN 5 DAYS Complete 01/11/18 11:31 Blood Peripheral Anaerobic Blood Culture - Final NO GROWTH IN 5 DAYS Complete 01/13/18 17:15 Stool Stool Stool Occult Blood (MANUELITO) - Final HEMOCCULT POSITIVE Complete 01/12/18 14:00 Sputum Endotracheal Gram Stain - Final Complete 01/12/18 14:00 Sputum Culture - Final S. Aureus Mrsa Complete 01/11/18 12:20 Urine Catheterized Urine Urine Culture - Final NO GROWTH IN 48 HOURS. Complete Imaging Last Impressions Chest X-Ray 01/20/18 0600 Signed Impressions: Service Date/Time: January 02:47 - CONCLUSION: Improving bibasilar densities. Reginald Fisher MD Abdomen X-Ray 01/14/18 1007 Signed Impressions: Service Date/Time: Sunday, January 14, 2018 10:11 - CONCLUSION: No dilated loops of small or large bowel. Pilo Walker MD Objective Remarks GEN: 42-year-old female resting in bed in no acute distress HEENT: Pupils 2 mm sluggish. Orotracheally intubated Neck: No JVD Chest/Pulm: Air entry diminished at the right base with coarse crackles. Mild amount of secretions CVS: RRR. S1, S3 no S4 without murmur GI/abdomen: soft, nontender, nondistended. no guarding. NEURO: Pupils are reactive. Cranial nerves II through XII grossly intact. Muscle strength is 4-5 bilateral upper extremities and 3.5 out of 5 bilateral lower extremities sensation intact. A/P Assessment and Plan Neuro/Psych: Acute Myasthenia crisis Myasthenia gravis Acute toxic metabolic metabolic encephalopathy UDS + cocaine/amphetamine/barbiturates Migraine headaches Chronic opioid use Chronic benzodiazepine use Oxycodone 5-10 mg every 6 hours as needed pain Morphine sulfate 2 mg IV every 4 hours as needed breakthrough pain -Started plasma exchange 01/13/18. Received 3 out of 5. Plan to restart 01/19. Gustavo hematology and neurology input -Plan for 5 sessions of plasma exchange every alternate day -IVIG completed course -Mycophenolate Mofetil 500 mg twice daily, IV methylprednisolone succinate 40 mg IV twice daily, Pyridostigmine [place] 120 mg p.o. 3 times daily On prednisone 5 mg daily at home. Currently on methylprednisolone succinate 40 mg IV every 8 hours -Further recommendations per neurologist -Holding gabapentin 900 mg 3 times daily for neuropathy -Holding sumatriptan inhalation as needed for migraine Holding acetaminophen/butibal/caffeine 325/50/41 tablet every 6 hours as needed migraine headache On chronic oxycodone/acetaminophen 10/325 1 tablet every 6 hours as needed pain On chronic alprazolam 1 mg every 6 hours as needed -Citalopram 40 mg daily initially held in view of concern regarding overdose. Currently on 10 mg daily -Psych has seen 01/19Maurice bowie. Transfer to inpatient psych when clinically stable RESP: s/p Respiratory arrest secondary to myasthenia crisis Acute hypoxemic and hypercarbic respiratory failure Right lower lobe pneumonia/MRSA -Emergently intubated and placed on full mechanical ventilation PRVC mode on 01/11. Extubated 01/18 -Myasthenia crisis and respiratory arrest most likely secondary to MRSA pneumonia, and sepsis -Albuterol/ipratropium aerosols every 6 hours scheduled with albuterol aerosols every 2 hours and as needed, Nasal cannula to maintain saturations greater or equal to 92% Incentives parameter while awake - trend daily NIFMIP, MEP - PT/OT consults. OOB to stretcher chair daily to attempt to prevent further deconditioning. CVS: Severe bradycardia most likely from severe respiratory acidosis resolved Sinus tachycardia now- improving. -Severe bradycardia most likely secondary to severe respiratory acidosis, improved rapidly after intubation -Received epinephrine bicarb and calcium -Slightly elevated troponin secondary to above As needed labetalol when necessary for hypertension, tachycardia. Holding Midodrine 5 mg twice daily GI: C. difficile colitis Heme positive stools Pantoprazole 40 mg p.o. daily Advance diet per speech therapy -Bowel regimen with docusate sodium/senna 1 tablet twice daily -On p.o. vancomycin 250 mg 4 times daily and IV metronidazole 500 mg 3 times daily for C. difficile colitis /Endo: -Strict intake output Please replace Ledezma catheter patient with urinary retention Heme: Leukocytosis Anemia/normocytic -Continue Ferrous Sulfate 325 mg twice daily/home medication -Monitor CBC daily. Follow trends ID: Right lower lobe pneumonia/MRSA C. difficile colitis, recurrent Severe sepsis Continue IV vancomycin, aztreonam, IV metronidazole. P.o. vancomycin started for positive C. difficile colitis Nasal aspirate negative for influenza A and B neg. Urine for strep pneumo and Legionella antigen negative. Sputum 01/12+ for MRSA in sputum Blood cultures 01/11/, 01/10 and 01/09 all no growth to date FEN: Replace electrolytes as clinically indicated DVT GI prophylaxis -SCDs -Enoxaparin 30 mg subcu daily -Pantoprazole Level 2 follow-up Patient stable from a critical care medicine standpoint. Assign care to hospitalist in a.m. 01/21/2018. Chirag Diaz MD Jan 20, 2018 13:27
[2018-01-20] MEDS ORDERED: PHARMACY ORDERED LAB ONE (13:30)
[2018-01-20] MEDS: ENOXAPARIN SODIUM 30 MG/0.3 ML SYRINGE SQ SCH (22:50)
[2018-01-21] VITALS (19 sets, daily range): BP systolic 91–116; BP diastolic 51–70; PULSE 67–111; RESP 16–33; TEMP 98.2–98.6; O2SAT 95–99
[2018-01-21] MEDS: MORPHINE SULFATE 2 MG/ML SYRINGE IV PUSH PRN ×8 (01:39→23:55)
[2018-01-21] MEDS: LORazepam 2 MG/ML VIAL IV PUSH PRN ×5 (01:40→22:01)
[2018-01-21] MEDS: methylPREDNISolone SOD SUCC 125 MG/2 ML VIAL IV PUSH SCH ×4 (01:40→23:55)
[2018-01-21] MEDS: metroNIDAZOLE 500 MG INJ 100 ML IV SCH ×3 (01:40→18:12)
[2018-01-21] MEDS: AZTREONAM INJ 2,000 MG in SODIUM CHLORIDE 0.9% INJ 100 ML IV SCH ×3 (03:31→20:56)
[2018-01-21] MEDS: VANCOMYCIN 1,000 MG/NS 250 ML IV SCH ×8 (03:31→20:57)
[2018-01-21] MEDS: RESP: ALBUTEROL 2.5 MG/IPRATROPIUM 0.5 MG NEB (SCH) NEB ×4 (04:00→21:22)
[2018-01-21] MEDS: CHLORHEXIDINE GLUCONATE 2 % 1 PACK (2 CLOTHS) TOP SCH (04:00)
[2018-01-21 05:28] LABS: HEMATOCRIT 33.9 % (35.0-46.0); HEMOGLOBIN 10.8 GM/DL (11.6-15.3); MEAN CELL VOLUME 81.7 FL (80.0-100.0); MEAN CORPUSCULAR HEMOGLOBIN 26.2 PG (27.0-34.0); PLATELET COUNT 372 TH/MM3 (150-450); RED BLOOD COUNT 4.14 MIL/MM3 (4.00-5.30); RED CELL DISTRIBUTION WIDTH 25.9 % (11.6-17.2); WHITE BLOOD COUNT 14.7 TH/MM3 (4.0-11.0)
[2018-01-21 05:33] LABS: INTERNATIONAL NORMALIZED RATIO 1.1 RATIO; PROTHROMBIN TIME - PATIENT 11.4 SEC (9.8-11.6)
[2018-01-21 05:54] LABS: ALBUMIN 4.6 GM/DL (3.4-5.0); BICARBONATE 29.9 MEQ/L (21.0-32.0); CALCIUM 9.5 MG/DL (8.5-10.1); CREATININE 0.43 MG/DL (0.50-1.00); PHOSPHORUS 2.3 MG/DL (2.5-4.9)
[2018-01-21] MEDS ORDERED: PHARMACY ORDERED LAB ONE (07:45)
[2018-01-21] MEDS: CHLORHEXIDINE 0.12% (ORAL KIT) 15 ML CUP MT SCH ×2 (08:00→20:00)
[2018-01-21] MEDS: INSULIN ASPART SUPPLEMENTAL SCALE SQ SCH ×4 (08:00→20:42)
[2018-01-21] MEDS: RESP: BUDESONIDE 0.5 MG/2 ML NEB NEB SCH ×2 (08:38→21:22)
[2018-01-21] MEDS: BENEPROTEIN POWDER 1 PACK G-TUBE SCH ×3 (09:00→18:00)
[2018-01-21] MEDS: DOCUSATE SODIUM 50 MG/SENNA 8.6 MG TAB PO SCH ×2 (09:00→20:16)
[2018-01-21] MEDS: LACTOBACILLUS ACIDOPHILUS TAB PO SCH (09:00)
[2018-01-21] MEDS: PYRIDOSTIGMINE BROMIDE 60 MG TAB PO SCH ×3 (09:18→18:14)
[2018-01-21] MEDS: ONDANSETRON HCL 4 MG/2 ML VIAL IV PUSH PRN (09:19)
[2018-01-21] MEDS: PANTOPRAZOLE SOD 40 MG DELAYED RELEASE TAB PO SCH (09:20)
[2018-01-21] MEDS: POTASSIUM PHOSPHATE MONOBASIC 500 MG TAB PO PRN (09:21)
[2018-01-21] MEDS: CITALOPRAM HYDROBROMIDE 20 MG TAB PO SCH (09:22)
[2018-01-21] MEDS: ASPIRIN 81 MG CHEW TAB CHEW SCH (09:22)
[2018-01-21] MEDS: SODIUM CHLORIDE 0.9% FLUSH 10 ML FLUSH IV FLUSH SCH ×2 (09:23→20:56)
--- NOTE | 2018-01-21 09:55 | HHI.PR ---
Subjective Remarks Follow-up myasthenia gravis exacerbation 01/21/18-patient seen and examined, denies any shortness of breath or chest pain. States, since yesterday she has been on room air. Denies any diarrhea. Taking p.o. without any complication of nausea and vomiting Objective Vitals Vital Signs Date Time Temp Pulse Resp B/P (MAP) Pulse Ox O2 Delivery O2 Flow Rate FiO2 01/21/18 08:38 95 21 01/21/18 06:00 78 01/21/18 04:00 76 01/21/18 04:00 98.6 76 23 108/57 (74) 98 01/21/18 02:00 77 01/21/18 00:00 98.4 67 21 116/65 (82) 97 01/21/18 00:00 67 01/20/18 22:00 74 01/20/18 21:42 96 21 01/20/18 20:00 98.7 86 25 116/65 (82) 98 01/20/18 20:00 86 01/20/18 18:00 69 22 01/20/18 18:00 69 01/20/18 17:00 74 01/20/18 17:00 74 27 01/20/18 16:00 98.2 77 19 97 01/20/18 16:00 77 01/20/18 15:00 97 21 01/20/18 15:00 97 01/20/18 14:00 98 25 99 01/20/18 14:00 98 01/20/18 13:01 94 20 109/74 (86) 01/20/18 13:01 94 01/20/18 12:01 83 21 122/62 (82) 01/20/18 12:01 83 01/20/18 11:00 91 01/20/18 11:00 91 23 113/60 (77) 01/20/18 10:00 85 01/20/18 10:00 85 23 118/59 (78) I/O 01/20/18 01/20/18 01/20/18 01/21/18 01/21/18 01/21/18 07:00 15:00 23:00 07:00 15:00 23:00 Intake Total 930 ml 1170 ml 1070 ml Output Total 2100 ml 3500 ml 2100 ml Balance -1170 ml -2330 ml -1030 ml Intake Oral 480 ml 720 ml 620 ml IV Total 450 ml 450 ml 450 ml Output Urine Total 2000 ml 3500 ml 2100 ml Stool Total 100 ml # Bowel Movements 4 1 Result Diagram: 01/21/18 0405 01/21/18 0405 Imaging Last Impressions Chest X-Ray 01/20/18 0600 Signed Impressions: Service Date/Time: January 02:47 - CONCLUSION: Improving bibasilar densities. Reginald Fisher MD Abdomen X-Ray 01/14/18 1007 Signed Impressions: Service Date/Time: Sunday, January 14, 2018 10:11 - CONCLUSION: No dilated loops of small or large bowel. Pilo Walker MD Objective Remarks GENERAL: NAD SKIN: Warm and dry. HEAD: Normocephalic. EYES: No scleral icterus. No injection or drainage. NECK: Supple, trachea midline. No JVD or lymphadenopathy. CARDIOVASCULAR: Regular rate and rhythm without murmurs, gallops, or rubs. RESPIRATORY: Breath sounds equal bilaterally. No accessory muscle use. GASTROINTESTINAL: Abdomen soft, non-tender, nondistended. MUSCULOSKELETAL: No cyanosis, or edema. BACK: Nontender without obvious deformity. No CVA tenderness. Procedures none A/P Problem List: (1) Myasthenia gravis with exacerbation ICD Code: G70.01 - Myasthenia gravis with exacerbation Status: Acute (2) Clostridium difficile colitis ICD Code: A04.7 - Enterocolitis due to Clostridium difficile Status: Acute Assessment and Plan 42-year-old female with Acute Myasthenia crisis Myasthenia gravis Acute toxic metabolic metabolic encephalopathy UDS + cocaine/amphetamine/barbiturates Migraine headaches Chronic opioid use Chronic benzodiazepine use Oxycodone 5-10 mg every 6 hours as needed pain Morphine sulfate 2 mg IV every 4 hours as needed breakthrough pain -Started plasma exchange 01/13/18. Received 5 out of 5. Appreciate hematology and neurology input -IVIG completed course -Mycophenolate Mofetil 500 mg twice daily, IV methylprednisolone succinate 40 mg IV twice daily, Pyridostigmine [place] 120 mg p.o. 3 times daily On prednisone 5 mg daily at home. Currently on methylprednisolone succinate 40 mg IV every 8 hours -Holding gabapentin 900 mg 3 times daily for neuropathy -Holding sumatriptan inhalation as needed for migraine Holding acetaminophen/butibal/caffeine 325/50/41 tablet every 6 hours as needed migraine headache On chronic oxycodone/acetaminophen 10/325 1 tablet every 6 hours as needed pain On chronic alprazolam 1 mg every 6 hours as needed -Citalopram 40 mg daily initially held in view of concern regarding overdose. Currently on 10 mg daily -Psych has seen 01/19. [place] bowie. Transfer to inpatient psych when clinically stable s/p Respiratory arrest secondary to myasthenia crisis Acute hypoxemic and hypercarbic respiratory failure Right lower lobe pneumonia/MRSA -Emergently intubated and placed on full mechanical ventilation PRVC mode on 01/11. Extubated 01/18 -Albuterol/ipratropium aerosols every 6 hours scheduled with albuterol aerosols every 2 hours and as needed, - PT/OT consults. OOB to stretcher chair daily to attempt to prevent further deconditioning. Severe bradycardia most likely from severe respiratory acidosis resolved Sinus tachycardia - improved. -Received epinephrine bicarb and calcium Holding Midodrine 5 mg twice daily C. difficile colitis Heme positive stools Pantoprazole 40 mg p.o. daily -On p.o. vancomycin 250 mg 4 times daily and IV metronidazole 500 mg 3 times daily for C. difficile colitis Leukocytosis Anemia/normocytic -Continue Ferrous Sulfate 325 mg twice daily/home medication -Monitor CBC daily Right lower lobe pneumonia/MRSA C. difficile colitis, recurrent Severe sepsis Continue IV vancomycin, aztreonam, IV metronidazole. P.o. vancomycin started for positive C. difficile colitis Nasal aspirate negative for influenza A and B neg. Urine for strep pneumo and Legionella antigen negative. DVT GI prophylaxis -SCDs -Enoxaparin 30 mg subcu daily -PantReginald Patel MD Jan 21, 2018 09:55
[2018-01-21] MEDS ORDERED: ALBUMIN 5% IV ONE (10:15)
[2018-01-21] MEDS: FERROUS SULFATE 325 MG (65 MG ELEMENTAL IRON) TAB PO SCH ×2 (12:09→15:51)
[2018-01-21] MEDS: VANCOMYCIN 500 MG VIAL (FOR ORAL USE ONLY) PO SCH ×4 (12:09→20:16)
[2018-01-21] MEDS: ANTICOAGULANT CITRATE DEXTROSE SOLN-A 1L OTHER SCH (13:00)
--- NOTE | 2018-01-21 19:01 | HHI.PR ---
Review/Management Diagnosis myasthenia gravis---- depression Plan continue plasmapheresis for total of 5 Diagnosis/Plan: Subjective Subjective Comments No acute events reported improved after 4 plasmapheresis. Active Medications Current Medications Medications (Trade) Dose Ordered Sig/Gómez Route Start Time Stop Time Status Last Admin (Aspirin Chew) 81 mg DAILY CHEW 01/09/18 09:00 01/21/18 09:22 (Ferrous Sulfate) 325 mg BID@12,17 PO 01/09/18 12:00 01/21/18 15:51 (Neurontin) 300 mg Q8H PO 01/08/18 23:15 Future Hold (Deltasone) 5 mg DAILY PO 01/09/18 09:00 Future Hold 01/10/18 08:20 (Mestinon) 120 mg TIDAC PO 01/09/18 08:00 01/21/18 18:14 (Lactinex) 1 tab DAILY PO 01/09/18 09:00 01/21/18 09:00 (NS Flush) 2 ml UNSCH PRN IV FLUSH 01/08/18 23:30 01/12/18 08:13 (NS Flush) 2 ml BID IV FLUSH 01/09/18 09:00 01/21/18 09:23 (Zofran Inj) 4 mg Q6H PRN IV PUSH 01/08/18 23:30 01/21/18 09:19 (Lovenox Inj) 30 mg Q24H SQ 01/08/18 23:30 01/20/18 22:50 Miscellaneous Information 1 Q361D XX 01/08/18 23:30 01/08/18 23:30 (Chlorhexidine 2% Cloth) Taper DAILY@04 TOP 01/09/18 04:00 01/05/19 03:59 01/17/18 04:00 (Chlorhexidine 2% Cloth) 3 pack UNSCH PRN TOP 01/08/18 23:30 (Bonita-Colace) 1 tab BID PO 01/09/18 09:00 01/19/18 19:56 (Milk Of Magnesia Liq) 30 ml Q12H PRN PO 01/08/18 23:30 01/10/18 17:53 (Senokot) 17.2 mg Q12H PRN PO 01/08/18 23:30 (Dulcolax Supp) 10 mg DAILY PRN RECTAL 01/08/18 23:30 (Lactulose Liq) 30 ml DAILY PRN PO 01/08/18 23:30 Potassium Chloride 100 ml @ 50 mls/hr Q2H PRN IV 01/09/18 00:00 01/14/18 05:39 Potassium Chloride 100 ml @ 50 mls/hr Q2H PRN IV 01/09/18 00:00 01/18/18 13:28 (K-Lyte Cl Eff) 50 meq UNSCH PRN PO 01/09/18 00:00 Potassium Chloride 100 ml @ 25 mls/hr UNSCH PRN IV 01/09/18 00:00 01/10/18 08:19 Potassium Chloride 100 ml @ 50 mls/hr Q2H PRN IV 01/09/18 00:00 Magnesium Sulfate 4 gm/Sodium Chloride 100 ml @ 50 mls/hr UNSCH PRN IV 01/09/18 00:00 (Mag-Ox) 800 mg UNSCH PRN PO 01/09/18 00:00 Magnesium Sulfate 2 gm/Sodium Chloride 100 ml @ 50 mls/hr UNSCH PRN IV 01/09/18 00:00 01/18/18 06:04 (K-Phos) 2,000 mg Q4H PRN PO 01/09/18 00:00 01/21/18 09:21 Sodium Phosphate 30 mmol/Sodium Chloride 250 ml @ 42 mls/hr UNSCH PRN IV 01/09/18 00:00 (K-Phos) 2,000 mg UNSCH PRN PO/TUBE 01/09/18 00:00 Potassium Phosphate 30 mmol/ Sodium Chloride 260 ml @ 42 mls/hr UNSCH PRN IV 01/09/18 00:00 (Imitrex Inj) 6 mg Q12H PRN SQ 01/09/18 03:45 Future Hold 01/15/18 21:17 (Peridex 0.12% Liq) 15 ml BID@08,20 MT 01/09/18 08:00 01/18/18 08:21 (Trandate Inj) 10 mg Q2HR PRN IV PUSH 01/09/18 08:00 01/10/18 21:23 (Ativan Inj) 2 mg Q4H PRN IV PUSH 01/09/18 08:30 01/21/18 18:12 (SoluMEDROL INJ) 40 mg Q8H IV PUSH 01/11/18 09:00 01/21/18 15:52 (Pulmicort Respule Neb) 0.5 mg Q12HR NEB NEB 01/11/18 08:45 01/21/18 08:38 Aztreonam 2000 mg/ Sodium Chloride 100 ml @ 200 mls/hr Q8H IV 01/11/18 11:00 01/21/18 12:10 Metronidazole 100 ml @ 100 mls/hr Q8H IV 01/11/18 10:00 01/21/18 18:12 (Beneprotein Powder) 1 pack TID G-TUBE 01/12/18 13:00 01/18/18 08:24 (NS Flush) 5 ml UNSCH PRN IV FLUSH 01/13/18 11:15 (Heparin Inj) 2,000 units UNSCH PRN IV FLUSH 01/13/18 11:15 (Benadryl Inj) 25 mg UNSCH PRN IV PUSH 01/13/18 11:15 01/23/18 11:14 Sodium Chloride 1,000 ml @ 0 mls/hr Q0M IV 01/13/18 11:15 01/23/18 11:14 01/19/18 17:01 (Acd Formula Inj) 1,000 ml Q48H OTHER 01/13/18 13:00 01/23/18 18:00 01/19/18 17:00 (NS Flush) 10 ml UNSCH PRN IV FLUSH 01/13/18 11:15 (Heparin Inj) 5,000 units UNSCH PRN IV FLUSH 01/13/18 11:15 01/23/18 11:14 (Heparin Inj) 1,000 units UNSCH PRN IV FLUSH 01/13/18 11:15 01/23/18 11:14 Pharmacy Profile Note 0 ml @ 0 mls/hr UNSCH OTHER 01/13/18 14:30 (VANCOMYCIN for oral use only) 250 mg QID PO 01/13/18 18:00 01/21/18 18:15 (Tylenol 650 Mg/ 20 ml Liq) 650 mg Q6H PRN PO 01/16/18 13:30 (Albuterol Neb) 2.5 mg Q2HR NEB PRN NEB 01/16/18 13:30 (Duoneb Neb) 1 ampule Q6HR NEB NEB 01/18/18 16:00 01/21/18 16:05 (NovoLOG SUPPLEMENTAL SCALE) 1 ACHS SQ 01/19/18 17:00 (Protonix) 40 mg DAILY PO 01/20/18 09:00 01/21/18 09:20 (Roxicodone) 5 mg Q6H PRN PO 01/19/18 12:45 01/21/18 15:51 (Morphine Inj) 2 mg Q3H PRN IV PUSH 01/19/18 12:45 01/21/18 18:13 (Roxicodone) 10 mg Q6H PRN PO 01/19/18 12:45 01/21/18 09:20 (D50w (Vial) Inj) 50 ml UNSCH PRN IV PUSH 01/19/18 13:15 (Glucagon Inj) 1 mg UNSCH PRN OTHER 01/19/18 13:15 (CeleXA) 10 mg DAILY PO 01/19/18 13:45 01/21/18 09:22 (Pill Splitter) 1 ea UNSCH PRN OTHER 01/19/18 14:00 Vancomycin HCl 1000 mg/Sodium Chloride 250 ml @ 250 mls/hr Q6H IV 01/20/18 02:00 01/21/18 14:00 Albumin Human 2,500 ml @ 250 mls/hr ONCE ONCE IV 01/21/18 10:15 01/21/18 20:14 Allergies Allergies Coded Allergies penicillin G (Unverified Allergy, Severe, Anaphylaxis, 01/08/18) promethazine (Unverified Adverse Reaction, Severe, NAUSEOUS, 01/08/18) Review of Systems All other ROS: ROS reviewed as documented in chart Exam I&O / VS 01/21/18 01/21/18 01/22/18 15:00 23:00 07:00 Intake Total 720 ml Output Total 2500 ml Balance -1780 ml Intake Oral 720 ml Output Urine Total 2500 ml # Bowel Movements 3 Vital Signs Date Time Temp Pulse Resp B/P (MAP) Pulse Ox O2 Delivery O2 Flow Rate FiO2 01/21/18 14:00 84 01/21/18 14:00 84 22 98/57 (71) 01/21/18 13:00 86 01/21/18 13:00 86 16 97/61 (73) 96 01/21/18 12:00 94 22 97/54 (68) 01/21/18 12:00 94 01/21/18 11:00 101 24 104/58 (73) 99 01/21/18 11:00 101 01/21/18 10:00 102 01/21/18 10:00 102 17 99/67 (78) 01/21/18 09:00 111 24 110/70 (83) 01/21/18 09:00 111 01/21/18 08:38 95 21 01/21/18 08:00 88 01/21/18 08:00 88 22 01/21/18 07:00 92 01/21/18 07:00 92 33 01/21/18 06:00 78 01/21/18 04:00 76 01/21/18 04:00 98.6 76 23 108/57 (74) 98 01/21/18 02:00 77 01/21/18 00:00 98.4 67 21 116/65 (82) 97 01/21/18 00:00 67 01/20/18 22:00 74 01/20/18 21:42 96 21 01/20/18 20:00 98.7 86 25 116/65 (82) 98 01/20/18 20:00 86 General: Alert and Oriented, No acute distress Eye: PERRL, EOMI, Normal conjuctiva Respiratory: Non-labored respirations, Symmetrical expansion Cardiology: Normal rate, Intact pulses, Regular Rhythm Musculoskeletal: ROM Neurologic: Alert, Oriented, Normal motor, CN II-XII intact, Normal DTR's Psychiatric: Cooperative, Appropriate mood & affect, Normal judgement Exam Comments alert, speech normal, comprehension normal CN--no ptosis, EOM intact MOTOR 5/5 BUE and BLE Objective Micro and Labs Laboratory Tests Test 01/21/18 04:05 01/21/18 09:15 White Blood Count 14.7 Red Blood Count 4.14 Hemoglobin 10.8 Hematocrit 33.9 Mean Corpuscular Volume 81.7 Mean Corpuscular Hemoglobin 26.2 Mean Corpuscular Hemoglobin Concent 32.0 Red Cell Distribution Width 25.9 Platelet Count 372 Mean Platelet Volume 8.0 Prothrombin Time 11.4 Prothromb Time International Ratio 1.1 Activated Partial Thromboplast Time 25.6 Fibrinogen 115 Blood Urea Nitrogen 6 Creatinine 0.43 Random Glucose 104 Albumin 4.6 Calcium Level 9.5 Phosphorus Level 2.3 Sodium Level 142 Potassium Level 3.8 Chloride Level 104 Carbon Dioxide Level 29.9 Anion Gap 8 Estimat Glomerular Filtration Rate 162 Vancomycin Level Trough 13.0 Date/Time Source Procedure Growth Status 01/11/18 11:31 Blood Peripheral Aerobic Blood Culture - Final NO GROWTH IN 5 DAYS Complete 01/11/18 11:31 Blood Peripheral Anaerobic Blood Culture - Final NO GROWTH IN 5 DAYS Complete 01/13/18 17:15 Stool Stool Stool Occult Blood (MANUELITO) - Final HEMOCCULT POSITIVE Complete 01/12/18 14:00 Sputum Endotracheal Gram Stain - Final Complete 01/12/18 14:00 Sputum Culture - Final S. Aureus Mrsa Complete 01/11/18 12:20 Urine Catheterized Urine Urine Culture - Final NO GROWTH IN 48 HOURS. Complete Leonardo De La Fuente MD PhD Jan 21, 2018 19:01
--- NOTE | 2018-01-21 19:01 | PD.ONC.PN ---
Subjective Subjective Remarks Resting comfortably in bed. Eating breakfast. elevated heart rate. Objective Data Date Time Temp Pulse Resp B/P (MAP) Pulse Ox O2 Delivery O2 Flow Rate FiO2 01/21/18 14:00 84 01/21/18 14:00 84 22 98/57 (71) 01/21/18 13:00 86 01/21/18 13:00 86 16 97/61 (73) 96 01/21/18 12:00 94 22 97/54 (68) 01/21/18 12:00 94 01/21/18 11:00 101 24 104/58 (73) 99 01/21/18 11:00 101 01/21/18 10:00 102 01/21/18 10:00 102 17 99/67 (78) 01/21/18 09:00 111 24 110/70 (83) 01/21/18 09:00 111 01/21/18 08:38 95 21 01/21/18 08:00 88 01/21/18 08:00 88 22 01/21/18 07:00 92 01/21/18 07:00 92 33 01/21/18 06:00 78 01/21/18 04:00 76 01/21/18 04:00 98.6 76 23 108/57 (74) 98 01/21/18 02:00 77 01/21/18 00:00 98.4 67 21 116/65 (82) 97 01/21/18 00:00 67 01/20/18 22:00 74 01/20/18 21:42 96 21 01/20/18 20:00 98.7 86 25 116/65 (82) 98 01/20/18 20:00 86 01/21/18 01/21/18 01/21/18 07:00 15:00 23:00 Intake Total 1070 ml 720 ml Output Total 2100 ml 2500 ml Balance -1030 ml -1780 ml Result Diagram: 01/21/1840401/21/18404 Laboratory Results Laboratory Tests Test 01/21/18 04:05 01/21/18 09:15 White Blood Count 14.7 TH/MM3 Red Blood Count 4.14 MIL/MM3 Hemoglobin 10.8 GM/DL Hematocrit 33.9 % Mean Corpuscular Volume 81.7 FL Mean Corpuscular Hemoglobin 26.2 PG Mean Corpuscular Hemoglobin Concent 32.0 % Red Cell Distribution Width 25.9 % Platelet Count 372 TH/MM3 Mean Platelet Volume 8.0 FL Prothrombin Time 11.4 SEC Prothromb Time International Ratio 1.1 RATIO Activated Partial Thromboplast Time 25.6 SEC Fibrinogen 115 mg/dL Blood Urea Nitrogen 6 MG/DL Creatinine 0.43 MG/DL Random Glucose 104 MG/DL Albumin 4.6 GM/DL Calcium Level 9.5 MG/DL Phosphorus Level 2.3 MG/DL Sodium Level 142 MEQ/L Potassium Level 3.8 MEQ/L Chloride Level 104 MEQ/L Carbon Dioxide Level 29.9 MEQ/L Anion Gap 8 MEQ/L Estimat Glomerular Filtration Rate 162 ML/MIN Vancomycin Level Trough 13.0 MCG/ML Administered Medications Medications (Trade) Dose Ordered Sig/Gómez Route PRN Reason Start Time Stop Time Status Last Admin Dose Admin Aspirin (Aspirin Chew) 81 mg DAILY CHEW 01/09/18 09:00 01/21/18 09:22 Ferrous Sulfate (Ferrous Sulfate) 325 mg BID@12,17 PO 01/09/18 12:00 01/21/18 15:51 Prednisone (Deltasone) 5 mg DAILY PO 01/09/18 09:00 Future Hold 01/10/18 08:20 Pyridostigmine [place] (Mestinon) 120 mg TIDAC PO 01/09/18 08:00 01/21/18 18:14 Lactobacillus Acidophilus (Lactinex) 1 tab DAILY PO 01/09/18 09:00 01/21/18 09:00 Sodium Chloride (NS Flush) 2 ml UNSCH PRN IV FLUSH FLUSH AFTER USING IV ACCESS 01/08/18 23:30 01/12/18 08:13 Sodium Chloride (NS Flush) 2 ml BID IV FLUSH 01/09/18 09:00 01/21/18 09:23 Ondansetron HCl (Zofran Inj) 4 mg Q6H PRN IV PUSH NAUSEA OR VOMITING 01/08/18 23:30 01/21/18 09:19 Enoxaparin Sodium (Lovenox Inj) 30 mg Q24H SQ 01/08/18 23:30 01/20/18 22:50 Miscellaneous Information 1 Q361D XX 01/08/18 23:30 01/08/18 23:30 Chlorhexidine Gluconate (Chlorhexidine 2% Cloth) Taper DAILY@04 TOP 01/09/18 04:00 01/05/19 03:59 01/17/18 04:00 Senna/Docusate Sodium (Bonita-Colace) 1 tab BID PO 01/09/18 09:00 01/19/18 19:56 Magnesium Hydroxide (Milk Of Magnesia Liq) 30 ml Q12H PRN PO Mild constipation 01/08/18 23:30 01/10/18 17:53 Potassium Chloride 100 ml @ 50 mls/hr Q2H PRN IV For Potassium 2.8 - 3.2 mEq/L 01/09/18 00:00 01/14/18 05:39 Potassium Chloride 100 ml @ 50 mls/hr Q2H PRN IV For Potassium 2.8 - 3.2 mEq/L 01/09/18 00:00 01/18/18 13:28 Potassium Chloride 100 ml @ 25 mls/hr UNSCH PRN IV For Potassium 3.3 - 3.5 mEq/L 01/09/18 00:00 01/10/18 08:19 Magnesium Sulfate 2 gm/Sodium Chloride 100 ml @ 50 mls/hr UNSCH PRN IV For Magnesium 1.2 - 1.6 mg/dL 01/09/18 00:00 01/18/18 06:04 Potassium Phosphate (K-Phos) 2,000 mg Q4H PRN PO For Phosphorus < 2.5 mg/dL 01/09/18 00:00 01/21/18 09:21 Sumatriptan Succinate (Imitrex Inj) 6 mg Q12H PRN SQ HEADACHE/ MIGRAINE 01/09/18 03:45 Future Hold 01/15/18 21:17 Chlorhexidine Gluconate (Peridex 0.12% Liq) 15 ml BID@08,20 MT 01/09/18 08:00 01/18/18 08:21 Labetalol HCl (Trandate Inj) 10 mg Q2HR PRN IV PUSH SBP greater than 160mm Hg 01/09/18 08:00 01/10/18 21:23 Lorazepam (Ativan Inj) 2 mg Q4H PRN IV PUSH agitation 01/09/18 08:30 01/21/18 18:12 Methylprednisolone Sodium Succinate (SoluMEDROL INJ) 40 mg Q8H IV PUSH 01/11/18 09:00 01/21/18 15:52 Budesonide (Pulmicort Respule Neb) 0.5 mg Q12HR NEB NEB 01/11/18 08:45 01/21/18 08:38 Aztreonam 2000 mg/ Sodium Chloride 100 ml @ 200 mls/hr Q8H IV 01/11/18 11:00 01/21/18 12:10 Metronidazole 100 ml @ 100 mls/hr Q8H IV 01/11/18 10:00 01/21/18 18:12 Protein (Beneprotein Powder) 1 pack TID G-TUBE 01/12/18 13:00 01/18/18 08:24 Sodium Chloride 1,000 ml @ 0 mls/hr Q0M IV 01/13/18 11:15 01/23/18 11:14 01/19/18 17:01 Anticoagulant Citrate Dextose Cindy A (Acd Formula Inj) 1,000 ml Q48H OTHER 01/13/18 13:00 01/23/18 18:00 01/19/18 17:00 Vancomycin HCl (VANCOMYCIN for oral use only) 250 mg QID PO 01/13/18 18:00 01/21/18 18:15 Albuterol/ Ipratropium (Duoneb Neb) 1 ampule Q6HR NEB NEB 01/18/18 16:00 01/21/18 16:05 Pantoprazole Sodium (Protonix) 40 mg DAILY PO 01/20/18 09:00 01/21/18 09:20 Oxycodone HCl (Roxicodone) 5 mg Q6H PRN PO pain 1-5 01/19/18 12:45 01/21/18 15:51 Morphine Sulfate (Morphine Inj) 2 mg Q3H PRN IV PUSH breakthrough pain 01/19/18 12:45 01/21/18 18:13 Oxycodone HCl (Roxicodone) 10 mg Q6H PRN PO pain 6-10 01/19/18 12:45 01/21/18 09:20 Citalopram Hydrobromide (CeleXA) 10 mg DAILY PO 01/19/18 13:45 01/21/18 09:22 Vancomycin HCl 1000 mg/Sodium Chloride 250 ml @ 250 mls/hr Q6H IV 01/20/18 02:00 01/21/18 14:00 Objective Remarks GENERAL: Well-nourished, well-developed patient. SKIN: Warm and dry. HEAD: Normocephalic. EYES: No scleral icterus. No injection or drainage. RESPIRATORY: No accessory muscle use. NEUROLOGICAL: No obvious focal deficit. Awake, alert, and oriented x3. PSYCHIATRIC: Appropriate mood and affect; insight and judgment normal. Assessment/Plan Assessment 1. Myasthenia gravis: admitted respiratory distress. Currently receiving plasmapheresis for myasthenic crisis. Plan for 5 total session of pheresis. She has received 4 sessions. Will hold today's session due to low fibrinogen. Will postpone to Wednesday. 2. ID: MRSA pneumonia, Cdiff colitis continue antibiotic therapy Tammy Jose MD Jan 21, 2018 19:01
[2018-01-21] MEDS: ENOXAPARIN SODIUM 30 MG/0.3 ML SYRINGE SQ SCH (23:55)
[2018-01-22] VITALS (28 sets, daily range): BP systolic 94–117; BP diastolic 52–75; PULSE 62–125; RESP 16–38; TEMP 98.1–98.6; O2SAT 95–100
[2018-01-22] MEDS: CHLORHEXIDINE GLUCONATE 2 % 1 PACK (2 CLOTHS) TOP SCH (01:12)
[2018-01-22] MEDS: metroNIDAZOLE 500 MG INJ 100 ML IV SCH ×3 (01:57→17:34)
[2018-01-22] MEDS: AZTREONAM INJ 2,000 MG in SODIUM CHLORIDE 0.9% INJ 100 ML IV SCH ×3 (01:57→17:35)
[2018-01-22] MEDS: VANCOMYCIN 1,000 MG/NS 250 ML IV SCH ×8 (01:57→19:56)
[2018-01-22] MEDS: LORazepam 2 MG/ML VIAL IV PUSH PRN ×6 (01:57→23:58)
[2018-01-22] MEDS: MORPHINE SULFATE 2 MG/ML SYRINGE IV PUSH PRN ×6 (03:00→22:02)
[2018-01-22] MEDS: RESP: ALBUTEROL 2.5 MG/IPRATROPIUM 0.5 MG NEB (SCH) NEB ×3 (04:00→15:56)
[2018-01-22] MEDS: ONDANSETRON HCL 4 MG/2 ML VIAL IV PUSH PRN ×2 (07:40→17:34)
[2018-01-22] MEDS: PANTOPRAZOLE SOD 40 MG DELAYED RELEASE TAB PO SCH (07:42)
[2018-01-22] MEDS: CHLORHEXIDINE 0.12% (ORAL KIT) 15 ML CUP MT SCH ×2 (07:42→19:56)
[2018-01-22] MEDS: ASPIRIN 81 MG CHEW TAB CHEW SCH (07:42)
[2018-01-22] MEDS: DOCUSATE SODIUM 50 MG/SENNA 8.6 MG TAB PO SCH ×2 (07:42→19:50)
[2018-01-22] MEDS: LACTOBACILLUS ACIDOPHILUS TAB PO SCH (07:42)
[2018-01-22] MEDS: BENEPROTEIN POWDER 1 PACK G-TUBE SCH ×3 (07:43→17:34)
[2018-01-22] MEDS: PYRIDOSTIGMINE BROMIDE 60 MG TAB PO SCH ×3 (07:43→15:18)
[2018-01-22] MEDS: methylPREDNISolone SOD SUCC 125 MG/2 ML VIAL IV PUSH SCH ×2 (07:43→15:19)
[2018-01-22] MEDS: SODIUM CHLORIDE 0.9% FLUSH 10 ML FLUSH IV FLUSH SCH ×2 (07:43→19:50)
[2018-01-22] MEDS: VANCOMYCIN 500 MG VIAL (FOR ORAL USE ONLY) PO SCH ×4 (07:44→19:56)
[2018-01-22] MEDS: CITALOPRAM HYDROBROMIDE 20 MG TAB PO SCH (07:49)
[2018-01-22] MEDS: INSULIN ASPART SUPPLEMENTAL SCALE SQ SCH ×4 (07:50→19:50)
[2018-01-22] MEDS: RESP: BUDESONIDE 0.5 MG/2 ML NEB NEB SCH ×2 (08:00→21:22)
[2018-01-22 09:54] LABS: INTERNATIONAL NORMALIZED RATIO 1.1 RATIO; PROTHROMBIN TIME - PATIENT 11.5 SEC (9.8-11.6)
--- NOTE | 2018-01-22 10:06 | HHI.PR ---
Subjective Remarks Follow-up myasthenia gravis exacerbation 01/21/18-patient seen and examined, denies any shortness of breath or chest pain. States, since yesterday she has been on room air. Denies any diarrhea. Taking p.o. without any complication of nausea and vomiting 01/22/18-patient seen and examined, resting comfortably denies any headaches or pain to me however reported to JAYLIN Bonilla that she was having headaches Objective Vitals Vital Signs Date Time Temp Pulse Resp B/P (MAP) Pulse Ox O2 Delivery O2 Flow Rate FiO2 01/22/18 06:00 96 01/22/18 04:00 98.2 79 21 94/52 (66) 98 01/22/18 04:00 78 01/22/18 02:00 87 01/22/18 00:00 89 01/22/18 00:00 98.4 89 38 108/64 (79) 01/21/18 22:00 73 01/21/18 21:25 99 21 01/21/18 20:00 84 01/21/18 20:00 98.2 84 22 91/51 (64) 97 01/21/18 18:00 71 22 109/62 (78) 96 01/21/18 18:00 71 01/21/18 17:00 77 01/21/18 17:00 77 19 101/57 (72) 95 01/21/18 16:00 81 18 109/62 (78) 01/21/18 16:00 81 01/21/18 14:00 84 01/21/18 14:00 84 22 98/57 (71) 01/21/18 13:00 86 01/21/18 13:00 86 16 97/61 (73) 96 01/21/18 12:00 94 22 97/54 (68) 01/21/18 12:00 94 01/21/18 11:00 101 24 104/58 (73) 99 01/21/18 11:00 101 I/O 01/21/18 01/21/18 01/21/18 01/22/18 01/22/18 01/22/18 07:00 15:00 23:00 07:00 15:00 23:00 Intake Total 1070 ml 200 ml 1670 ml 930 ml Output Total 2100 ml 2500 ml 2200 ml Balance -1030 ml 200 ml -830 ml -1270 ml Intake Oral 620 ml 720 ml 480 ml IV Total 450 ml 200 ml 950 ml 450 ml Output Urine Total 2100 ml 2500 ml 2200 ml # Bowel Movements 1 4 3 Result Diagram: 01/21/1840401/21/18404 Objective Remarks GENERAL: NAD SKIN: Warm and dry. HEAD: Normocephalic. EYES: No scleral icterus. No injection or drainage. NECK: Supple, trachea midline. No JVD or lymphadenopathy. CARDIOVASCULAR: Regular rate and rhythm without murmurs, gallops, or rubs. RESPIRATORY: Breath sounds equal bilaterally. No accessory muscle use. GASTROINTESTINAL: Abdomen soft, non-tender, nondistended. MUSCULOSKELETAL: No cyanosis, or edema. BACK: Nontender without obvious deformity. No CVA tenderness. Procedures none A/P Problem List: (1) Myasthenia gravis with exacerbation ICD Code: G70.01 - Myasthenia gravis with exacerbation Status: Acute (2) Clostridium difficile colitis ICD Code: A04.7 - Enterocolitis due to Clostridium difficile Status: Acute Assessment and Plan 42-year-old female with Acute Myasthenia crisis Myasthenia gravis Acute toxic metabolic metabolic encephalopathy UDS + cocaine/amphetamine/barbiturates Migraine headaches Chronic opioid use Chronic benzodiazepine use Oxycodone 5-10 mg every 6 hours as needed pain Morphine sulfate 2 mg IV every 4 hours as needed breakthrough pain -Started plasma exchange 01/13/18. Received 4 out of 5, however currently on hold secondary to elevated fibrinogen. Appreciate hematology and neurology input -Mycophenolate Mofetil 500 mg twice daily, IV methylprednisolone succinate 40 mg IV twice daily, Pyridostigmine [place] 120 mg p.o. 3 times daily On prednisone 5 mg daily at home. Currently on methylprednisolone succinate 40 mg IV every 8 hours -Holding gabapentin 900 mg 3 times daily for neuropathy -Holding sumatriptan inhalation as needed for migraine Holding acetaminophen/butibal/caffeine 325/50/41 tablet every 6 hours as needed migraine headache On chronic oxycodone/acetaminophen 10/325 1 tablet every 6 hours as needed pain On chronic alprazolam 1 mg every 6 hours as needed -Citalopram 40 mg daily initially held in view of concern regarding overdose. Currently on 10 mg daily -Psych has seen 01/19. [place] [facility] Transfer to inpatient psych when clinically stable s/p Respiratory arrest secondary to myasthenia crisis Acute hypoxemic and hypercarbic respiratory failure Right lower lobe pneumonia/MRSA -Emergently intubated and placed on full mechanical ventilation PRVC mode on 01/11. Extubated 01/18 -Albuterol/ipratropium aerosols every 6 hours scheduled with albuterol aerosols every 2 hours and as needed, - PT/OT . Severe bradycardia most likely from severe respiratory acidosis resolved Sinus tachycardia - improved. -Received epinephrine bicarb and calcium Holding Midodrine 5 mg twice daily C. difficile colitis Heme positive stools Pantoprazole 40 mg p.o. daily -On p.o. vancomycin 250 mg 4 times daily and IV metronidazole 500 mg 3 times daily for C. difficile colitis Leukocytosis Anemia/normocytic -Continue Ferrous Sulfate 325 mg twice daily/home medication -Monitor CBC daily Right lower lobe pneumonia/MRSA C. difficile colitis, recurrent Severe sepsis Continue IV vancomycin, aztreonam, IV metronidazole. P.o. vancomycin started for positive C. difficile colitis Nasal aspirate negative for influenza A and B neg. Urine for strep pneumo and Legionella antigen negative. DVT GI prophylaxis -SCDs -Enoxaparin 30 mg SQ daily -Pantoprazole Reginald Aleman MD Jan 22, 2018 10:05
[2018-01-22] MEDS ORDERED: SODIUM CHLOR 0.9% 250 ML INJ 250 ML IV ONE (10:15)
--- NOTE | 2018-01-22 11:05 | PD.ONC.PN ---
Subjective Subjective Remarks Afebrile overnight Pt sitting up in bed Anxious to get off the ICU floor No bleeding Feeling stronger with plasma exchange Objective Data Date Time Temp Pulse Resp B/P (MAP) Pulse Ox O2 Delivery O2 Flow Rate FiO2 01/22/18 06:00 96 01/22/18 04:00 98.2 79 21 94/52 (66) 98 01/22/18 04:00 78 01/22/18 02:00 87 01/22/18 00:00 89 01/22/18 00:00 98.4 89 38 108/64 (79) 01/21/18 22:00 73 01/21/18 21:25 99 21 01/21/18 20:00 84 01/21/18 20:00 98.2 84 22 91/51 (64) 97 01/21/18 18:00 71 22 109/62 (78) 96 01/21/18 18:00 71 01/21/18 17:00 77 01/21/18 17:00 77 19 101/57 (72) 95 01/21/18 16:00 81 18 109/62 (78) 01/21/18 16:00 81 01/21/18 14:00 84 01/21/18 14:00 84 22 98/57 (71) 01/21/18 13:00 86 01/21/18 13:00 86 16 97/61 (73) 96 01/21/18 12:00 94 22 97/54 (68) 01/21/18 12:00 94 01/22/18 01/22/18 01/22/18 07:00 15:00 23:00 Intake Total 930 ml Output Total 2200 ml Balance -1270 ml Result Diagram: 01/21/18 0405 01/21/18 0405 Laboratory Results Laboratory Tests Test 01/22/18 09:14 Prothrombin Time 11.5 SEC Prothromb Time International Ratio 1.1 RATIO Activated Partial Thromboplast Time 22.9 SEC Fibrinogen 125 mg/dL Administered Medications Medications (Trade) Dose Ordered Sig/Gómez Route PRN Reason Start Time Stop Time Status Last Admin Dose Admin Aspirin (Aspirin Chew) 81 mg DAILY CHEW 01/09/18 09:00 01/22/18 07:42 Ferrous Sulfate (Ferrous Sulfate) 325 mg BID@12,17 PO 01/09/18 12:00 01/21/18 15:51 Prednisone (Deltasone) 5 mg DAILY PO 01/09/18 09:00 Future Hold 01/10/18 08:20 Pyridostigmine [place] (Mestinon) 120 mg TIDAC PO 01/09/18 08:00 01/22/18 07:43 Lactobacillus Acidophilus (Lactinex) 1 tab DAILY PO 01/09/18 09:00 01/22/18 07:42 Sodium Chloride (NS Flush) 2 ml UNSCH PRN IV FLUSH FLUSH AFTER USING IV ACCESS 01/08/18 23:30 01/12/18 08:13 Sodium Chloride (NS Flush) 2 ml BID IV FLUSH 01/09/18 09:00 01/22/18 07:43 Ondansetron HCl (Zofran Inj) 4 mg Q6H PRN IV PUSH NAUSEA OR VOMITING 01/08/18 23:30 01/22/18 07:40 Enoxaparin Sodium (Lovenox Inj) 30 mg Q24H SQ 01/08/18 23:30 01/21/18 23:55 Miscellaneous Information 1 Q361D XX 01/08/18 23:30 01/08/18 23:30 Chlorhexidine Gluconate (Chlorhexidine 2% Cloth) Taper DAILY@04 TOP 01/09/18 04:00 01/05/19 03:59 01/17/18 04:00 Senna/Docusate Sodium (Bonita-Colace) 1 tab BID PO 01/09/18 09:00 01/22/18 07:42 Magnesium Hydroxide (Milk Of Magnesia Liq) 30 ml Q12H PRN PO Mild constipation 01/08/18 23:30 01/10/18 17:53 Potassium Chloride 100 ml @ 50 mls/hr Q2H PRN IV For Potassium 2.8 - 3.2 mEq/L 01/09/18 00:00 01/14/18 05:39 Potassium Chloride 100 ml @ 50 mls/hr Q2H PRN IV For Potassium 2.8 - 3.2 mEq/L 01/09/18 00:00 01/18/18 13:28 Potassium Chloride 100 ml @ 25 mls/hr UNSCH PRN IV For Potassium 3.3 - 3.5 mEq/L 01/09/18 00:00 01/10/18 08:19 Magnesium Sulfate 2 gm/Sodium Chloride 100 ml @ 50 mls/hr UNSCH PRN IV For Magnesium 1.2 - 1.6 mg/dL 01/09/18 00:00 01/18/18 06:04 Potassium Phosphate (K-Phos) 2,000 mg Q4H PRN PO For Phosphorus < 2.5 mg/dL 01/09/18 00:00 01/21/18 09:21 Sumatriptan Succinate (Imitrex Inj) 6 mg Q12H PRN SQ HEADACHE/ MIGRAINE 01/09/18 03:45 Future Hold 01/15/18 21:17 Chlorhexidine Gluconate (Peridex 0.12% Liq) 15 ml BID@08,20 MT 01/09/18 08:00 01/18/18 08:21 Labetalol HCl (Trandate Inj) 10 mg Q2HR PRN IV PUSH SBP greater than 160mm Hg 01/09/18 08:00 01/10/18 21:23 Lorazepam (Ativan Inj) 2 mg Q4H PRN IV PUSH agitation 01/09/18 08:30 01/22/18 10:22 Methylprednisolone Sodium Succinate (SoluMEDROL INJ) 40 mg Q8H IV PUSH 01/11/18 09:00 01/22/18 07:43 Budesonide (Pulmicort Respule Neb) 0.5 mg Q12HR NEB NEB 01/11/18 08:45 01/21/18 21:22 Aztreonam 2000 mg/ Sodium Chloride 100 ml @ 200 mls/hr Q8H IV 01/11/18 11:00 01/22/18 01:57 Metronidazole 100 ml @ 100 mls/hr Q8H IV 01/11/18 10:00 01/22/18 01:57 Protein (Beneprotein Powder) 1 pack TID G-TUBE 01/12/18 13:00 01/22/18 07:43 Sodium Chloride 1,000 ml @ 0 mls/hr Q0M IV 01/13/18 11:15 01/23/18 11:14 01/19/18 17:01 Anticoagulant Citrate Dextose Cindy A (Acd Formula Inj) 1,000 ml Q48H OTHER 01/13/18 13:00 01/23/18 18:00 01/19/18 17:00 Vancomycin HCl (VANCOMYCIN for oral use only) 250 mg QID PO 01/13/18 18:00 01/22/18 07:44 Albuterol/ Ipratropium (Duoneb Neb) 1 ampule Q6HR NEB NEB 01/18/18 16:00 01/21/18 21:22 Pantoprazole Sodium (Protonix) 40 mg DAILY PO 01/20/18 09:00 01/22/18 07:42 Oxycodone HCl (Roxicodone) 5 mg Q6H PRN PO pain 1-5 01/19/18 12:45 01/22/18 10:22 Morphine Sulfate (Morphine Inj) 2 mg Q3H PRN IV PUSH breakthrough pain 01/19/18 12:45 01/22/18 09:17 Oxycodone HCl (Roxicodone) 10 mg Q6H PRN PO pain 6-10 01/19/18 12:45 01/22/18 03:54 Citalopram Hydrobromide (CeleXA) 10 mg DAILY PO 01/19/18 13:45 01/22/18 07:49 Vancomycin HCl 1000 mg/Sodium Chloride 250 ml @ 250 mls/hr Q6H IV 01/20/18 02:00 01/22/18 07:44 Objective Remarks GENERAL: Younger female sitting up in bed in no obvious distress SKIN: Warm and dry. No oozing from lines HEAD: Normocephalic. EYES: No scleral icterus. No injection or drainage. RESPIRATORY: No accessory muscle use. NEUROLOGICAL: No obvious focal deficit. Awake, alert, and oriented x3. PSYCHIATRIC: Appropriate mood and affect; insight and judgment normal. Assessment/Plan Problem List: (1) Myasthenia exacerbation ICD Codes: G70.01 - Myasthenia exacerbation Status: Acute Plan: --Getting a total of 5 plasma exchange treatments Assessment 42-year-old female admitted with myasthenia exacerbation; hematology consulted for coordination of plasma exchange Plan 1. Myasthenia gravis: Fibrinogen still remains low at 125. Transfuse 1 unit cryoprecipitate today prior to plasma exchange number 5 out of 5 planned treatments 2. Check coags in a.m. including fibrinogen Attending Statement The exam, history, and the medical decision-making described in the above note were completed with the assistance of the mid-level provider. I reviewed and agree with the findings presented. I attest that I had a [id number] encounter with the patient on the same day, and personally performed and documented my assessment and findings in the medical record. MG getting plasma exchange replace cryo start plasma exchange last treatment today Haydee Rollins Jan 22, 2018 11:05 Dontrell Padgett MD Jan 22, 2018 13:34
[2018-01-22] MEDS: FERROUS SULFATE 325 MG (65 MG ELEMENTAL IRON) TAB PO SCH ×2 (12:50→17:35)
[2018-01-22] MEDS ORDERED: CALCIUM GLUCONATE IV SCH (15:00)
[2018-01-22] MEDS ORDERED: ALBUMIN 5% IV SCH (15:00)
[2018-01-22] MEDS ORDERED: SODIUM CHLOR 0.9% IV SCH (15:00)
[2018-01-22] MEDS: ENOXAPARIN SODIUM 30 MG/0.3 ML SYRINGE SQ SCH (23:59)
[2018-01-23] VITALS (16 sets, daily range): BP systolic 98–124; BP diastolic 55–85; PULSE 71–100; RESP 17–31; TEMP 98.1–98.6; O2SAT 96–98
[2018-01-23] MEDS: methylPREDNISolone SOD SUCC 125 MG/2 ML VIAL IV PUSH SCH ×3 (01:09→16:08)
[2018-01-23] MEDS: MORPHINE SULFATE 2 MG/ML SYRINGE IV PUSH PRN ×8 (01:09→23:36)
[2018-01-23] MEDS: metroNIDAZOLE 500 MG INJ 100 ML IV SCH ×2 (02:07→08:28)
[2018-01-23] MEDS: VANCOMYCIN 1,000 MG/NS 250 ML IV SCH ×8 (02:07→20:25)
[2018-01-23] MEDS: CHLORHEXIDINE GLUCONATE 2 % 1 PACK (2 CLOTHS) TOP SCH (04:00)
[2018-01-23] MEDS: AZTREONAM INJ 2,000 MG in SODIUM CHLORIDE 0.9% INJ 100 ML IV SCH ×3 (04:07→20:24)
[2018-01-23] MEDS: LORazepam 2 MG/ML VIAL IV PUSH PRN ×5 (04:08→20:26)
[2018-01-23] MEDS: CHLORHEXIDINE 0.12% (ORAL KIT) 15 ML CUP MT SCH ×2 (08:00→20:00)
[2018-01-23] MEDS: RESP: BUDESONIDE 0.5 MG/2 ML NEB NEB SCH ×2 (08:00→20:00)
[2018-01-23] MEDS: INSULIN ASPART SUPPLEMENTAL SCALE SQ SCH ×4 (08:00→20:52)
[2018-01-23] MEDS: VANCOMYCIN 500 MG VIAL (FOR ORAL USE ONLY) PO SCH ×4 (08:23→20:25)
[2018-01-23] MEDS: PYRIDOSTIGMINE BROMIDE 60 MG TAB PO SCH ×3 (08:24→16:08)
[2018-01-23] MEDS: LACTOBACILLUS ACIDOPHILUS TAB PO SCH (08:24)
[2018-01-23] MEDS: ASPIRIN 81 MG CHEW TAB CHEW SCH (08:25)
[2018-01-23] MEDS: CITALOPRAM HYDROBROMIDE 20 MG TAB PO SCH (08:25)
[2018-01-23] MEDS: PANTOPRAZOLE SOD 40 MG DELAYED RELEASE TAB PO SCH (08:25)
[2018-01-23] MEDS: SODIUM CHLORIDE 0.9% FLUSH 10 ML FLUSH IV FLUSH SCH ×2 (08:27→21:00)
[2018-01-23] MEDS: DOCUSATE SODIUM 50 MG/SENNA 8.6 MG TAB PO SCH ×2 (08:28→21:00)
[2018-01-23] MEDS: BENEPROTEIN POWDER 1 PACK G-TUBE SCH ×3 (08:28→17:21)
--- NOTE | 2018-01-23 09:38 | HHI.PR ---
Subjective Remarks Follow-up myasthenia gravis exacerbation 01/21/18-patient seen and examined, denies any shortness of breath or chest pain. States, since yesterday she has been on room air. Denies any diarrhea. Taking p.o. without any complication of nausea and vomiting 01/22/18-patient seen and examined, resting comfortably denies any headaches or pain to me however reported to JAYLIN Bonilla that she was having headaches 01/23/18-patient seen and examined, completed plasma exchange. No complaint and no acute event overnight. Objective Vitals Vital Signs Date Time Temp Pulse Resp B/P (MAP) Pulse Ox O2 Delivery O2 Flow Rate FiO2 01/23/18 07:31 17 01/23/18 06:00 73 01/23/18 04:00 81 01/23/18 04:00 98.1 81 24 101/60 (74) 01/23/18 02:00 87 01/23/18 00:00 73 01/23/18 00:00 98.6 73 30 124/66 (85) 97 01/22/18 22:00 64 01/22/18 21:24 100 21 01/22/18 21:11 18 01/22/18 20:00 62 01/22/18 20:00 98.3 62 19 117/75 (89) 99 01/22/18 19:46 105 01/22/18 19:45 106 01/22/18 19:06 70 01/22/18 19:00 82 01/22/18 18:00 73 01/22/18 17:34 72 21 106/65 (79) 97 01/22/18 17:34 72 01/22/18 17:00 74 01/22/18 17:00 74 18 100 01/22/18 16:00 76 01/22/18 16:00 76 36 97 01/22/18 15:00 70 18 100 01/22/18 15:00 70 01/22/18 14:00 88 22 01/22/18 14:00 88 01/22/18 13:05 98.3 82 20 108/61 100 01/22/18 13:00 77 01/22/18 13:00 77 16 100 01/22/18 12:55 76 24 108/61 (77) 100 01/22/18 12:55 76 01/22/18 12:54 98.6 81 20 108/61 99 01/22/18 12:12 97 01/22/18 12:00 94 01/22/18 12:00 98.1 94 30 108/61 (77) 01/22/18 11:00 76 18 95 01/22/18 11:00 76 01/22/18 10:00 81 01/22/18 10:00 81 20 108/65 (79) I/O 01/22/18 01/22/18 01/22/18 01/23/18 01/23/18 01/23/18 07:00 15:00 23:00 07:00 15:00 23:00 Intake Total 930 ml 608 ml 2820 ml 2580 ml Output Total 2200 ml 800 ml Balance -1270 ml 608 ml 2820 ml 1780 ml Intake Oral 480 ml 1920 ml 1500 ml IV Total 450 ml 250 ml 900 ml 1080 ml Cryoprecipitate 248 ml Blood Product IV Normal Saline Flush 110 ml Output Urine Total 2200 ml 800 ml # Voids 5 4 # Bowel Movements 3 5 4 Result Diagram: 01/21/18 0405 01/21/185 Objective Remarks GENERAL: NAD SKIN: Warm and dry. HEAD: Normocephalic. EYES: No scleral icterus. No injection or drainage. NECK: Supple, trachea midline. No JVD or lymphadenopathy. CARDIOVASCULAR: Regular rate and rhythm without murmurs, gallops, or rubs. RESPIRATORY: Breath sounds equal bilaterally. No accessory muscle use. GASTROINTESTINAL: Abdomen soft, non-tender, nondistended. MUSCULOSKELETAL: No cyanosis, or edema. BACK: Nontender without obvious deformity. No CVA tenderness. Procedures none A/P Problem List: (1) Myasthenia gravis with exacerbation ICD Code: G70.01 - Myasthenia gravis with exacerbation Status: Acute (2) Clostridium difficile colitis ICD Code: A04.7 - Enterocolitis due to Clostridium difficile Status: Acute Assessment and Plan 42-year-old female with Acute Myasthenia crisis Myasthenia gravis Acute toxic metabolic metabolic encephalopathy UDS + cocaine/amphetamine/barbiturates Migraine headaches Chronic opioid use Chronic benzodiazepine use Oxycodone 5-10 mg every 6 hours as needed pain Morphine sulfate 2 mg IV every 4 hours as needed breakthrough pain -Started plasma exchange 01/13/18. Received 5 out of 5. Appreciate hematology and neurology input -Mycophenolate Mofetil 500 mg twice daily, IV methylprednisolone succinate 40 mg IV twice daily, Pyridostigmine [place] 120 mg p.o. 3 times daily On prednisone 5 mg daily at home. Currently on methylprednisolone succinate 40 mg IV every 8 hours -Holding gabapentin 900 mg 3 times daily for neuropathy -Holding sumatriptan inhalation as needed for migraine Holding acetaminophen/butibal/caffeine 325/50/41 tablet every 6 hours as needed migraine headache On chronic oxycodone/acetaminophen 10/325 1 tablet every 6 hours as needed pain On chronic alprazolam 1 mg every 6 hours as needed -Citalopram 40 mg daily initially held in view of concern regarding overdose. Currently on 10 mg daily -Psych has seen 01/19[place] [facility] Transfer to inpatient psych when clinically stable s/p Respiratory arrest secondary to myasthenia crisis Acute hypoxemic and hypercarbic respiratory failure Right lower lobe pneumonia/MRSA -Emergently intubated and placed on full mechanical ventilation PRVC mode on 01/11. Extubated 01/18 -Albuterol/ipratropium aerosols every 6 hours scheduled with albuterol aerosols every 2 hours and as needed, - PT/OT . Severe bradycardia most likely from severe respiratory acidosis resolved Sinus tachycardia - improved. -Received epinephrine bicarb and calcium Holding Midodrine 5 mg twice daily C. difficile colitis Heme positive stools Pantoprazole 40 mg p.o. daily -On p.o. vancomycin 250 mg 4 times daily and IV metronidazole 500 mg 3 times daily for C. difficile colitis Leukocytosis Anemia/normocytic -Continue Ferrous Sulfate 325 mg twice daily/home medication -Monitor CBC daily Right lower lobe pneumonia/MRSA C. difficile colitis, recurrent Severe sepsis Continue IV vancomycin, aztreonam, IV metronidazole. P.o. vancomycin started for positive C. difficile colitis Nasal aspirate negative for influenza A and B neg. Urine for strep pneumo and Legionella antigen negative. DVT GI prophylaxis -SCDs -Enoxaparin 30 mg SQ daily -Pantoprazole Transfer to CICU-Onc Reginald Aleman MD Jan 23, 2018 09:38
[2018-01-23 09:51] LABS: AUTOMATED NEUTROPHIL # 23.2 TH/MM3 (1.8-7.7); BASOPHIL % 0.1 % (0.0-2.0); HEMATOCRIT 35.1 % (35.0-46.0); HEMOGLOBIN 11.1 GM/DL (11.6-15.3); LYMPH % 6.7 % (9.0-44.0); LYMPHOCYTE # 1.7 TH/MM3 (1.0-4.8); MEAN CELL VOLUME 82.9 FL (80.0-100.0); MEAN CORPUSCULAR HEMOGLOBIN 26.1 PG (27.0-34.0); MEAN CORPUSCULAR HGB CONC 31.5 % (32.0-36.0); MONO % 2.7 % (0.0-8.0); MONOCYTE # 0.7 TH/MM3 (0-0.9); NEUT % 90.5 % (16.0-70.0); PLATELET COUNT 461 TH/MM3 (150-450); RED BLOOD COUNT 4.23 MIL/MM3 (4.00-5.30); WHITE BLOOD COUNT 25.6 TH/MM3 (4.0-11.0)
[2018-01-23 10:03] LABS: INTERNATIONAL NORMALIZED RATIO 1.2 RATIO; PROTHROMBIN TIME - PATIENT 12.4 SEC (9.8-11.6)
[2018-01-23 10:30] LABS: LYMPHOCYTES 5 % (9-44); MONOCYTES 2 % (0-8); MYELOCYTES 1 % (0-0); NEUTROPHIL # MANUAL DIFF 23.8 TH/MM3 (1.8-7.7); OVALOCYTES 1+ (NORMAL); POLYS (SEG NEUTROPHILS) 92 % (16-70); TEARDROP RBCS 1+ (NORMAL)
[2018-01-23] MEDS: FERROUS SULFATE 325 MG (65 MG ELEMENTAL IRON) TAB PO SCH ×2 (11:57→16:07)
[2018-01-23] MEDS: metroNIDAZOLE 500 MG TAB PO SCH ×2 (12:58→21:13)
[2018-01-23] MEDS ORDERED: ACETAMINOPHEN 325 MG TAB PO ONE (13:45)
[2018-01-23] MEDS ORDERED: diphenhydrAMINE HCL 25 MG CAP PO ONE (13:45)
[2018-01-23] MEDS: ENOXAPARIN SODIUM 30 MG/0.3 ML SYRINGE SQ SCH (23:36)
[2018-01-24] VITALS (7 sets, daily range): BP systolic 105–147; BP diastolic 55–66; PULSE 50–121; RESP 18–20; TEMP 97.9–99.3; O2SAT 96–98
[2018-01-24] MEDS: methylPREDNISolone SOD SUCC 125 MG/2 ML VIAL IV PUSH SCH ×3 (00:43→16:11)
[2018-01-24] MEDS: LORazepam 2 MG/ML VIAL IV PUSH PRN ×6 (00:49→22:57)
[2018-01-24] MEDS: VANCOMYCIN 1,000 MG/NS 250 ML IV SCH ×8 (01:00→21:46)
[2018-01-24] MEDS: MORPHINE SULFATE 2 MG/ML SYRINGE IV PUSH PRN ×7 (02:26→21:46)
[2018-01-24] MEDS: CHLORHEXIDINE GLUCONATE 2 % 1 PACK (2 CLOTHS) TOP SCH (02:27)
[2018-01-24] MEDS: AZTREONAM INJ 2,000 MG in SODIUM CHLORIDE 0.9% INJ 100 ML IV SCH ×3 (02:27→18:44)
[2018-01-24] MEDS: metroNIDAZOLE 500 MG TAB PO SCH ×3 (06:11→21:46)
[2018-01-24 07:48] LABS: AUTOMATED NEUTROPHIL # 14.9 TH/MM3 (1.8-7.7); BASOPHIL % 0.2 % (0.0-2.0); HEMOGLOBIN 9.4 GM/DL (11.6-15.3); LYMPH % 4.5 % (9.0-44.0); LYMPHOCYTE # 0.7 TH/MM3 (1.0-4.8); MEAN CELL VOLUME 83.6 FL (80.0-100.0); MEAN CORPUSCULAR HEMOGLOBIN 26.2 PG (27.0-34.0); MEAN CORPUSCULAR HGB CONC 31.4 % (32.0-36.0); MONO % 3.6 % (0.0-8.0); MONOCYTE # 0.6 TH/MM3 (0-0.9); NEUT % 91.7 % (16.0-70.0); PLATELET COUNT 363 TH/MM3 (150-450); RED CELL DISTRIBUTION WIDTH 26.4 % (11.6-17.2); WHITE BLOOD COUNT 16.3 TH/MM3 (4.0-11.0)
[2018-01-24 08:10] LABS: INTERNATIONAL NORMALIZED RATIO 1.1 RATIO; PROTHROMBIN TIME - PATIENT 11.6 SEC (9.8-11.6)
[2018-01-24] MEDS: VANCOMYCIN 500 MG VIAL (FOR ORAL USE ONLY) PO SCH ×4 (08:18→21:46)
[2018-01-24] MEDS: SODIUM CHLORIDE 0.9% FLUSH 10 ML FLUSH IV FLUSH SCH ×2 (08:19→21:47)
[2018-01-24] MEDS: PANTOPRAZOLE SOD 40 MG DELAYED RELEASE TAB PO SCH (08:19)
[2018-01-24] MEDS: CITALOPRAM HYDROBROMIDE 20 MG TAB PO SCH (08:19)
[2018-01-24] MEDS: LACTOBACILLUS ACIDOPHILUS TAB PO SCH (08:19)
[2018-01-24] MEDS: ASPIRIN 81 MG CHEW TAB CHEW SCH (08:25)
[2018-01-24] MEDS: INSULIN ASPART SUPPLEMENTAL SCALE SQ SCH ×4 (08:30→21:00)
[2018-01-24] MEDS: DOCUSATE SODIUM 50 MG/SENNA 8.6 MG TAB PO SCH ×2 (08:31→21:46)
[2018-01-24 08:42] LABS: LYMPHOCYTES 8 % (9-44); MONOCYTES 4 % (0-8); MYELOCYTES 1 % (0-0); NEUTROPHIL # MANUAL DIFF 14.3 TH/MM3 (1.8-7.7); POLYS (SEG NEUTROPHILS) 87 % (16-70)
[2018-01-24 08:43] LABS: OVALOCYTES 1+ (NORMAL); TEARDROP RBCS 1+ (NORMAL)
--- NOTE | 2018-01-24 08:59 | HHI.PR ---
Review/Management Diagnosis myasthenia gravis---- depression Plan resume cellcept --follow levels consider trial of mestinon [place] Consider re-trial of onesimoxangal pt concerned with severe N/V she had Diagnosis/Plan: Subjective Subjective Comments No acute events reported feels much stronger after pheresis States had reaction to rituxan--severe N/V Feels mestinon does not act long enough and wears off before next dose-- sometimes at home increases dose on own up to 8/day Active Medications Current Medications Medications (Trade) Dose Ordered Sig/Gómez Route Start Time Stop Time Status Last Admin (Aspirin Chew) 81 mg DAILY CHEW 01/09/18 09:00 01/24/18 08:25 (Ferrous Sulfate) 325 mg BID@ PO 01/09/18 12:00 01/23/18 16:07 (Neurontin) 300 mg Q8H PO 01/08/18 23:15 Future Hold (Deltasone) 5 mg DAILY PO 01/09/18 09:00 Future Hold 01/10/18 08:20 (Mestinon) 120 mg TIDAC PO 01/09/18 08:00 01/23/18 16:08 (Lactinex) 1 tab DAILY PO 01/09/18 09:00 01/24/18 08:19 (NS Flush) 2 ml UNSCH PRN IV FLUSH 01/08/18 23:30 01/12/18 08:13 (NS Flush) 2 ml BID IV FLUSH 01/09/18 09:00 01/24/18 08:19 (Zofran Inj) 4 mg Q6H PRN IV PUSH 01/08/18 23:30 01/22/18 17:34 (Lovenox Inj) 30 mg Q24H SQ 01/08/18 23:30 01/23/18 23:36 Miscellaneous Information 1 Q361D XX 01/08/18 23:30 01/08/18 23:30 (Chlorhexidine 2% Cloth) Taper DAILY@04 TOP 01/09/18 04:00 01/05/19 03:59 01/23/18 04:00 (Chlorhexidine 2% Cloth) 3 pack UNSCH PRN TOP 01/08/18 23:30 (Bonita-Colace) 1 tab BID PO 01/09/18 09:00 01/22/18 07:42 (Milk Of Magnesia Liq) 30 ml Q12H PRN PO 01/08/18 23:30 01/10/18 17:53 (Senokot) 17.2 mg Q12H PRN PO 01/08/18 23:30 (Dulcolax Supp) 10 mg DAILY PRN RECTAL 01/08/18 23:30 (Lactulose Liq) 30 ml DAILY PRN PO 01/08/18 23:30 (Imitrex Inj) 6 mg Q12H PRN SQ 01/09/18 03:45 Future Hold 01/15/18 21:17 (Trandate Inj) 10 mg Q2HR PRN IV PUSH 01/09/18 08:00 01/10/18 21:23 (Ativan Inj) 2 mg Q4H PRN IV PUSH 01/09/18 08:30 01/24/18 06:11 (SoluMEDROL INJ) 40 mg Q8H IV PUSH 01/11/18 09:00 01/24/18 08:18 (Pulmicort Respule Neb) 0.5 mg Q12HR NEB NEB 01/11/18 08:45 01/22/18 21:22 Aztreonam 2000 mg/ Sodium Chloride 100 ml @ 200 mls/hr Q8H IV 01/11/18 11:00 01/24/18 02:27 (Beneprotein Powder) 1 pack TID G-TUBE 01/12/18 13:00 01/23/18 13:00 (NS Flush) 5 ml UNSCH PRN IV FLUSH 01/13/18 11:15 (Heparin Inj) 2,000 units UNSCH PRN IV FLUSH 01/13/18 11:15 (NS Flush) 10 ml UNSCH PRN IV FLUSH 01/13/18 11:15 Pharmacy Profile Note 0 ml @ 0 mls/hr UNSCH OTHER 01/13/18 14:30 (VANCOMYCIN for oral use only) 250 mg QID PO 01/13/18 18:00 01/24/18 08:18 (Tylenol 650 Mg/ 20 ml Liq) 650 mg Q6H PRN PO 01/16/18 13:30 (Albuterol Neb) 2.5 mg Q2HR NEB PRN NEB 01/16/18 13:30 (NovoLOG SUPPLEMENTAL SCALE) 1 ACHS SQ 01/19/18 17:00 01/24/18 08:30 (Protonix) 40 mg DAILY PO 01/20/18 09:00 01/24/18 08:19 (Roxicodone) 5 mg Q6H PRN PO 01/19/18 12:45 01/22/18 17:34 (Morphine Inj) 2 mg Q3H PRN IV PUSH 01/19/18 12:45 01/24/18 06:12 (Roxicodone) 10 mg Q6H PRN PO 01/19/18 12:45 01/24/18 04:19 (D50w (Vial) Inj) 50 ml UNSCH PRN IV PUSH 01/19/18 13:15 (Glucagon Inj) 1 mg UNSCH PRN OTHER 01/19/18 13:15 (CeleXA) 10 mg DAILY PO 01/19/18 13:45 01/24/18 08:19 (Pill Splitter) 1 ea UNSCH PRN OTHER 01/19/18 14:00 Vancomycin HCl 1000 mg/Sodium Chloride 250 ml @ 250 mls/hr Q6H IV 01/20/18 02:00 01/24/18 08:17 (Flagyl) 500 mg Q8HR PO 01/23/18 14:00 01/24/18 06:11 Allergies Allergies Coded Allergies penicillin G (Unverified Allergy, Severe, Anaphylaxis, 01/08/18) promethazine (Unverified Adverse Reaction, Severe, NAUSEOUS, 01/08/18) Review of Systems All other ROS: ROS reviewed as documented in chart Exam I&O / VS Vital Signs Date Time Temp Pulse Resp B/P (MAP) Pulse Ox O2 Delivery O2 Flow Rate FiO2 01/24/18 07:48 99.3 121 18 122/59 (80) 98 01/24/18 05:16 98.1 116 18 147/66 (93) 96 01/24/18 01:03 97.9 77 20 120/66 (84) 96 01/23/18 21:02 98 21 01/23/18 20:32 16 01/23/18 20:00 98.4 71 26 112/62 (79) 01/23/18 18:00 95 01/23/18 17:08 98.4 77 31 122/71 98 01/23/18 16:00 80 01/23/18 16:00 98.4 80 17 107/65 (79) 97 01/23/18 15:03 20 01/23/18 14:15 98.5 76 30 98/55 97 01/23/18 14:15 98.5 74 30 98/55 97 01/23/18 14:00 78 01/23/18 13:57 98.6 77 23 107/63 97 01/23/18 12:00 98.6 92 23 120/85 (97) 97 01/23/18 12:00 92 01/23/18 11:14 97 01/23/18 10:00 91 General: Alert and Oriented, No acute distress Eye: PERRL, EOMI, Normal conjuctiva Respiratory: Non-labored respirations, Symmetrical expansion Cardiology: Normal rate, Intact pulses, Regular Rhythm Musculoskeletal: ROM Neurologic: Alert, Oriented, Normal motor, CN II-XII intact, Normal DTR's Psychiatric: Cooperative, Appropriate mood & affect, Normal judgement Exam Comments alert, speech normal, comprehension normal CN--no ptosis, EOM intact MOTOR 5/5 BUE and BLE Objective Micro and Labs Laboratory Tests Test 01/24/18 07:30 White Blood Count 16.3 Red Blood Count 3.60 Hemoglobin 9.4 Hematocrit 30.0 Mean Corpuscular Volume 83.6 Mean Corpuscular Hemoglobin 26.2 Mean Corpuscular Hemoglobin Concent 31.4 Red Cell Distribution Width 26.4 Platelet Count 363 Mean Platelet Volume 8.0 Neutrophils (%) (Auto) 91.7 Lymphocytes (%) (Auto) 4.5 Monocytes (%) (Auto) 3.6 Eosinophils (%) (Auto) 0.0 Basophils (%) (Auto) 0.2 Neutrophils # (Auto) 14.9 Lymphocytes # (Auto) 0.7 Monocytes # (Auto) 0.6 Eosinophils # (Auto) 0.0 Basophils # (Auto) 0.0 CBC Comment AUTO DIFF Differential Total Cells Counted 100 Neutrophils % (Manual) 87 Lymphocytes % 8 Monocytes % 4 Neutrophils # (Manual) 14.3 Myelocytes 1 Differential Comment FINAL DIFF MANUAL Platelet Estimate NORMAL Platelet Morphology Comment NORMAL Tear Drop Cells 1+ Ovalocytes 1+ Prothrombin Time 11.6 Prothromb Time International Ratio 1.1 Activated Partial Thromboplast Time 24.3 Fibrinogen 143 Date/Time Source Procedure Growth Status 01/11/18 11:31 Blood Peripheral Aerobic Blood Culture - Final NO GROWTH IN 5 DAYS Complete 01/11/18 11:31 Blood Peripheral Anaerobic Blood Culture - Final NO GROWTH IN 5 DAYS Complete 01/13/18 17:15 Stool Stool Stool Occult Blood (MANUELITO) - Final HEMOCCULT POSITIVE Complete 01/12/18 14:00 Sputum Endotracheal Gram Stain - Final Complete 01/12/18 14:00 Sputum Culture - Final S. Aureus Mrsa Complete 01/11/18 12:20 Urine Catheterized Urine Urine Culture - Final NO GROWTH IN 48 HOURS. Complete Leonardo De La Fuente MD PhD Jan 24, 2018 08:59
[2018-01-24] MEDS: BENEPROTEIN POWDER 1 PACK G-TUBE SCH ×3 (09:00→17:31)
[2018-01-24] MEDS: RESP: BUDESONIDE 0.5 MG/2 ML NEB NEB SCH ×2 (09:14→20:00)
[2018-01-24] MEDS: PYRIDOSTIGMINE BROMIDE 60 MG TAB PO SCH ×3 (09:18→18:20)
--- NOTE | 2018-01-24 11:19 | HHI.PR ---
Subjective Remarks Follow-up myasthenia gravis exacerbation 01/21/18-patient seen and examined, denies any shortness of breath or chest pain. States, since yesterday she has been on room air. Denies any diarrhea. Taking p.o. without any complication of nausea and vomiting 01/22/18-patient seen and examined, resting comfortably denies any headaches or pain to me however reported to JAYLIN Bonilla that she was having headaches 01/23/18-patient seen and examined, completed plasma exchange. No complaint and no acute event overnight. 01/24/18-patient seen and examined; states she is doing well and states she is looking forward possible discharge later to inpatient psychiatry Objective Vitals Vital Signs Date Time Temp Pulse Resp B/P (MAP) Pulse Ox O2 Delivery O2 Flow Rate FiO2 01/24/18 09:15 96 21 01/24/18 07:48 99.3 121 18 122/59 (80) 98 01/24/18 05:16 98.1 116 18 147/66 (93) 96 01/24/18 01:03 97.9 77 20 120/66 (84) 96 01/23/18 21:02 98 21 01/23/18 20:32 16 01/23/18 20:00 98.4 71 26 112/62 (79) 01/23/18 18:00 95 01/23/18 17:08 98.4 77 31 122/71 98 01/23/18 16:00 80 01/23/18 16:00 98.4 80 17 107/65 (79) 97 01/23/18 15:03 20 01/23/18 14:15 98.5 76 30 98/55 97 01/23/18 14:15 98.5 74 30 98/55 97 01/23/18 14:00 78 01/23/18 13:57 98.6 77 23 107/63 97 01/23/18 12:00 98.6 92 23 120/85 (97) 97 01/23/18 12:00 92 I/O 01/23/18 01/23/18 01/23/18 01/24/18 01/24/18 01/24/18 06:59 14:59 22:59 06:59 14:59 22:59 Intake Total 2580 ml 725 ml 2095 ml 250 ml Output Total 800 ml 1975 ml Balance 1780 ml 725 ml 120 ml 250 ml Intake Oral 1500 ml 1750 ml IV Total 1080 ml 700 ml 250 ml Cryoprecipitate 245 ml Blood Product IV Normal Saline Flush 25 ml 100 ml Output Urine Total 800 ml 1975 ml # Voids 4 8 3 # Bowel Movements 4 6 2 Result Diagram: 01/24/18 0730 01/21/18 0405 Objective Remarks GENERAL: NAD SKIN: Warm and dry. HEAD: Normocephalic. EYES: No scleral icterus. No injection or drainage. NECK: Supple, trachea midline. No JVD or lymphadenopathy. CARDIOVASCULAR: Regular rate and rhythm without murmurs, gallops, or rubs. RESPIRATORY: Breath sounds equal bilaterally. No accessory muscle use. GASTROINTESTINAL: Abdomen soft, non-tender, nondistended. MUSCULOSKELETAL: No cyanosis, or edema. BACK: Nontender without obvious deformity. No CVA tenderness. Procedures none A/P Problem List: (1) Myasthenia gravis with exacerbation ICD Code: G70.01 - Myasthenia gravis with exacerbation Status: Acute (2) Clostridium difficile colitis ICD Code: A04.7 - Enterocolitis due to Clostridium difficile Status: Acute Assessment and Plan 42-year-old female with Acute Myasthenia crisis Myasthenia gravis Acute toxic metabolic metabolic encephalopathy UDS + cocaine/amphetamine/barbiturates Migraine headaches Chronic opioid use Chronic benzodiazepine use Oxycodone 5-10 mg every 6 hours as needed pain Morphine sulfate 2 mg IV every 4 hours as needed breakthrough pain -Started plasma exchange 01/13/18. Received 5 out of 5. Appreciate hematology and neurology input -Mycophenolate Mofetil 500 mg twice daily, IV methylprednisolone succinate 40 mg IV twice daily, Pyridostigmine [place] 120 mg p.o. 3 times daily On prednisone 5 mg daily at home. Currently on methylprednisolone succinate 40 mg IV every 8 hours -Holding gabapentin 900 mg 3 times daily for neuropathy -Holding sumatriptan inhalation as needed for migraine Holding acetaminophen/butibal/caffeine 325/50/41 tablet every 6 hours as needed migraine headache -Resume Cellcept and consider trial of Mestinon vs Rituxan On chronic oxycodone/acetaminophen 10/325 1 tablet every 6 hours as needed pain On chronic alprazolam 1 mg every 6 hours as needed -Citalopram 40 mg daily initially held in view of concern regarding overdose. Currently on 10 mg daily -Psych has seen 01/19. [place] bowie. Transfer to inpatient psych when clinically stable s/p Respiratory arrest secondary to myasthenia crisis Acute hypoxemic and hypercarbic respiratory failure Right lower lobe pneumonia/MRSA -Emergently intubated and placed on full mechanical ventilation PRVC mode on 01/11. Extubated 01/18 -Albuterol/ipratropium aerosols every 6 hours scheduled with albuterol aerosols every 2 hours and as needed, - PT/OT . Severe bradycardia most likely from severe respiratory acidosis-resolved Sinus tachycardia - improved. -Received epinephrine bicarb and calcium Holding Midodrine 5 mg twice daily C. difficile colitis Pantoprazole 40 mg p.o. daily -On p.o. vancomycin 250 mg 4 times daily and IV metronidazole 500 mg 3 times daily for C. difficile colitis Leukocytosis Anemia/normocytic -Continue Ferrous Sulfate 325 mg twice daily/home medication -Monitor CBC daily Right lower lobe pneumonia/MRSA C. difficile colitis, recurrent Severe sepsis Continue IV vancomycin, aztreonam, metronidazole. P.o. vancomycin started for positive C. difficile colitis Nasal aspirate negative for influenza A and B neg. Urine for strep pneumo and Legionella antigen negative. DVT GI prophylaxis -SCDs -Enoxaparin 30 mg SQ daily -Pantoprazole Reginald Aleman MD Jan 24, 2018 11:18
[2018-01-24] MEDS: FERROUS SULFATE 325 MG (65 MG ELEMENTAL IRON) TAB PO SCH ×2 (12:02→16:11)
--- NOTE | 2018-01-24 12:16 | HHI.PYPN ---
Subjective Remarks I have seen the patient today for psychiatric reevaluation. The patient was found in her room, calm, cooperative, but very tearful and fragile. Patient states that she regrets her recent suicidal attempt, but she feels extremely stressed and frustrated with all her medical problems and she knows that she needs help. The patient reports feeling depressed, hopeless, helpless, and reports frequent suicidal thoughts, but she does not have a plan. She contracted for safety in the hospital. She denies visual and auditory hallucinations. She denies homicidal ideation. The patient is oriented 3, compliant with medications, no significant side effects. Review of Systems Psychiatric: COMPLAINS OF: Depression, Suicidal Ideation Mental Status Examination Appearance: Disheveled Consciousness: Alert Orientation: x4 Speech: Unremarkable, Hesitant, Other (Limited due to difficult to breathe) Language: Adequate Fund of Knowledge: Adequate Attention and Concentration: Adequate Memory: Unremarkable Mood: Sad Affect: Sad Thought Process & Associations: Goal directed Thought Content: Appropriate Hallucination Type: None Delusion Type: None Suicidal Ideation: Yes Suicidal Plan: No Suicidal Intention: Yes Homicidal Ideation: No Homicidal Plan: No Homicidal Intention: No Insight: Poor Judgment: Poor Results Labs Test 01/24/18 07:30 White Blood Count 16.3 TH/MM3 Red Blood Count 3.60 MIL/MM3 Hemoglobin 9.4 GM/DL Hematocrit 30.0 % Mean Corpuscular Volume 83.6 FL Mean Corpuscular Hemoglobin 26.2 PG Mean Corpuscular Hemoglobin Concent 31.4 % Red Cell Distribution Width 26.4 % Platelet Count 363 TH/MM3 Mean Platelet Volume 8.0 FL Neutrophils (%) (Auto) 91.7 % Lymphocytes (%) (Auto) 4.5 % Monocytes (%) (Auto) 3.6 % Eosinophils (%) (Auto) 0.0 % Basophils (%) (Auto) 0.2 % Neutrophils # (Auto) 14.9 TH/MM3 Lymphocytes # (Auto) 0.7 TH/MM3 Monocytes # (Auto) 0.6 TH/MM3 Eosinophils # (Auto) 0.0 TH/MM3 Basophils # (Auto) 0.0 TH/MM3 CBC Comment AUTO DIFF Differential Total Cells Counted 100 Neutrophils % (Manual) 87 % Lymphocytes % 8 % Monocytes % 4 % Neutrophils # (Manual) 14.3 TH/MM3 Myelocytes 1 % Differential Comment FINAL DIFF MANUAL Platelet Estimate NORMAL Platelet Morphology Comment NORMAL Tear Drop Cells 1+ Ovalocytes 1+ Prothrombin Time 11.6 SEC Prothromb Time International Ratio 1.1 RATIO Activated Partial Thromboplast Time 24.3 SEC Fibrinogen 143 mg/dL Date/Time Source Procedure Growth Status 01/11/18 11:31 Blood Peripheral Aerobic Blood Culture - Final NO GROWTH IN 5 DAYS Complete 01/11/18 11:31 Blood Peripheral Anaerobic Blood Culture - Final NO GROWTH IN 5 DAYS Complete 01/13/18 17:15 Stool Stool Stool Occult Blood (MANUELITO) - Final HEMOCCULT POSITIVE Complete 01/12/18 14:00 Sputum Endotracheal Gram Stain - Final Complete 01/12/18 14:00 Sputum Culture - Final S. Aureus Mrsa Complete 01/11/18 12:20 Urine Catheterized Urine Urine Culture - Final NO GROWTH IN 48 HOURS. Complete Vitals/IOs Vital Signs Date Time Temp Pulse Resp B/P (MAP) Pulse Ox O2 Delivery O2 Flow Rate FiO2 01/24/18 11:41 98.7 72 18 105/57 (73) 96 01/24/18 09:15 21 01/20/18 08:25 Nasal Cannula 2.00 Intake and Output 01/24/18 01/24/18 01/24/18 07:59 15:59 23:59 Intake Total 250 ml Balance 250 ml Assessment & Plan Problem List: (1) Depressive disorder ICD Codes: F32.9 - Major depressive disorder, single episode, unspecified Assessment & Plan: Patient continues to report symptomatology of depression, suicidal thoughts, no plan, will increase Celexa to 20 mg. Patient will be transferred to psychiatry once medically appropriate. Assessment & Plan Estimated LOS: days Justification for Cont. Inpt. Patient needs psychiatric hospitalization for stabilization. Gonzalez Anderson MD Jan 24, 2018 12:16
[2018-01-24] MEDS: MYCOPHENOLATE MOFETIL 500 MG TAB PO SCH (18:21)
[2018-01-24] MEDS ORDERED: PYRIDOSTIGMINE 180 MG PO SCH (21:00)
[2018-01-24] MEDS: ENOXAPARIN SODIUM 30 MG/0.3 ML SYRINGE SQ SCH (22:58)
[2018-01-25] VITALS (7 sets, daily range): BP systolic 105–135; BP diastolic 60–77; PULSE 74–118; RESP 18–20; TEMP 97.8–98.6; O2SAT 96–99
[2018-01-25] MEDS: MORPHINE SULFATE 2 MG/ML SYRINGE IV PUSH PRN ×7 (00:41→19:50)
--- NOTE | 2018-01-25 01:25 | PD.ONC.PN ---
Subjective Subjective Remarks Resting comfortably in bed in no distress. Late note entry. Patient seen at bedside at approximately 8 pm. Objective Data Date Time Temp Pulse Resp B/P (MAP) Pulse Ox O2 Delivery O2 Flow Rate FiO2 01/24/18 21:01 21 01/24/18 15:41 99.2 83 18 107/57 (74) 97 01/24/18 11:41 98.7 72 18 105/57 (73) 96 01/24/18 09:15 96 21 01/24/18 07:48 99.3 121 18 122/59 (80) 98 01/24/18 05:16 98.1 116 18 147/66 (93) 96 Result Diagram: 01/24/18 0730 01/21/18 0405 Laboratory Results Laboratory Tests Test 01/24/18 07:30 White Blood Count 16.3 TH/MM3 Red Blood Count 3.60 MIL/MM3 Hemoglobin 9.4 GM/DL Hematocrit 30.0 % Mean Corpuscular Volume 83.6 FL Mean Corpuscular Hemoglobin 26.2 PG Mean Corpuscular Hemoglobin Concent 31.4 % Red Cell Distribution Width 26.4 % Platelet Count 363 TH/MM3 Mean Platelet Volume 8.0 FL Neutrophils (%) (Auto) 91.7 % Lymphocytes (%) (Auto) 4.5 % Monocytes (%) (Auto) 3.6 % Eosinophils (%) (Auto) 0.0 % Basophils (%) (Auto) 0.2 % Neutrophils # (Auto) 14.9 TH/MM3 Lymphocytes # (Auto) 0.7 TH/MM3 Monocytes # (Auto) 0.6 TH/MM3 Eosinophils # (Auto) 0.0 TH/MM3 Basophils # (Auto) 0.0 TH/MM3 CBC Comment AUTO DIFF Differential Total Cells Counted 100 Neutrophils % (Manual) 87 % Lymphocytes % 8 % Monocytes % 4 % Neutrophils # (Manual) 14.3 TH/MM3 Myelocytes 1 % Differential Comment FINAL DIFF MANUAL Platelet Estimate NORMAL Platelet Morphology Comment NORMAL Tear Drop Cells 1+ Ovalocytes 1+ Prothrombin Time 11.6 SEC Prothromb Time International Ratio 1.1 RATIO Activated Partial Thromboplast Time 24.3 SEC Fibrinogen 143 mg/dL Administered Medications Medications (Trade) Dose Ordered Sig/Gómez Route PRN Reason Start Time Stop Time Status Last Admin Dose Admin Aspirin (Aspirin Chew) 81 mg DAILY CHEW 01/09/18 09:00 01/24/18 08:25 Ferrous Sulfate (Ferrous Sulfate) 325 mg BID@12,17 PO 01/09/18 12:00 01/24/18 16:11 Prednisone (Deltasone) 5 mg DAILY PO 01/09/18 09:00 Future Hold 01/10/18 08:20 Pyridostigmine [place] (Mestinon) 120 mg TIDAC PO 01/09/18 08:00 01/24/18 18:20 Lactobacillus Acidophilus (Lactinex) 1 tab DAILY PO 01/09/18 09:00 01/24/18 08:19 Sodium Chloride (NS Flush) 2 ml UNSCH PRN IV FLUSH FLUSH AFTER USING IV ACCESS 01/08/18 23:30 01/12/18 08:13 Sodium Chloride (NS Flush) 2 ml BID IV FLUSH 01/09/18 09:00 01/24/18 21:47 Ondansetron HCl (Zofran Inj) 4 mg Q6H PRN IV PUSH NAUSEA OR VOMITING 01/08/18 23:30 01/22/18 17:34 Enoxaparin Sodium (Lovenox Inj) 30 mg Q24H SQ 01/08/18 23:30 01/23/18 23:36 Miscellaneous Information 1 Q361D XX 01/08/18 23:30 01/08/18 23:30 Chlorhexidine Gluconate (Chlorhexidine 2% Cloth) Taper DAILY@04 TOP 01/09/18 04:00 01/05/19 03:59 01/23/18 04:00 Senna/Docusate Sodium (Bonita-Colace) 1 tab BID PO 01/09/18 09:00 01/24/18 21:46 Magnesium Hydroxide (Milk Of Magnesia Liq) 30 ml Q12H PRN PO Mild constipation 01/08/18 23:30 01/10/18 17:53 Sumatriptan Succinate (Imitrex Inj) 6 mg Q12H PRN SQ HEADACHE/ MIGRAINE 01/09/18 03:45 Future Hold 01/15/18 21:17 Labetalol HCl (Trandate Inj) 10 mg Q2HR PRN IV PUSH SBP greater than 160mm Hg 01/09/18 08:00 01/10/18 21:23 Lorazepam (Ativan Inj) 2 mg Q4H PRN IV PUSH agitation 01/09/18 08:30 01/24/18 22:57 Methylprednisolone Sodium Succinate (SoluMEDROL INJ) 40 mg Q8H IV PUSH 01/11/18 09:00 01/24/18 16:11 Budesonide (Pulmicort Respule Neb) 0.5 mg Q12HR NEB NEB 01/11/18 08:45 01/22/18 21:22 Aztreonam 2000 mg/ Sodium Chloride 100 ml @ 200 mls/hr Q8H IV 01/11/18 11:00 01/24/18 18:44 Protein (Beneprotein Powder) 1 pack TID G-TUBE 01/12/18 13:00 01/23/18 13:00 Vancomycin HCl (VANCOMYCIN for oral use only) 250 mg QID PO 01/13/18 18:00 01/24/18 21:46 Insulin Aspart (NovoLOG SUPPLEMENTAL SCALE) 1 ACHS SQ 01/19/18 17:00 01/24/18 08:30 Pantoprazole Sodium (Protonix) 40 mg DAILY PO 01/20/18 09:00 01/24/18 08:19 Oxycodone HCl (Roxicodone) 5 mg Q6H PRN PO pain 1-5 01/19/18 12:45 01/22/18 17:34 Morphine Sulfate (Morphine Inj) 2 mg Q3H PRN IV PUSH breakthrough pain 01/19/18 12:45 01/25/18 00:41 Oxycodone HCl (Roxicodone) 10 mg Q6H PRN PO pain 6-10 01/19/18 12:45 01/24/18 22:57 Vancomycin HCl 1000 mg/Sodium Chloride 250 ml @ 250 mls/hr Q6H IV 01/20/18 02:00 01/24/18 21:46 Metronidazole (Flagyl) 500 mg Q8HR PO 01/23/18 14:00 01/24/18 21:46 Mycophenolate Mofetil (Cellcept) 500 mg BID@,18 PO 01/24/18 18:00 01/24/18 18:21 Objective Remarks GENERAL: Well-nourished, well-developed patient. SKIN: Warm and dry. HEAD: Normocephalic. EYES: No scleral icterus. No injection or drainage. NECK: Supple, trachea midline. No JVD or lymphadenopathy. LYMPHATIC: No adenopathy. CARDIOVASCULAR: Regular rate and rhythm without murmurs. RESPIRATORY: Breath sounds equal bilaterally. No accessory muscle use. GASTROINTESTINAL: Abdomen soft, non-tender, nondistended. EXTREMITIES: No cyanosis, or edema. MUSCULOSKELETAL: Adequate muscle tone. NEUROLOGICAL: No obvious focal deficit. Awake, alert, and oriented x3. PSYCHIATRIC: Appropriate mood and affect; insight and judgment normal. Assessment/Plan Problem List: (1) Myasthenia exacerbation ICD Codes: G70.01 - Myasthenia exacerbation Status: Acute Plan: --Getting a total of 5 plasma exchange treatments Assessment 42-year-old female admitted with myasthenia exacerbation; hematology consulted for coordination of plasma exchange Plan 1. Myasthenia gravis: with myastenia crisis. s/p 5 sessions of plasmapheresis with improvement in symptoms. Neurology considering rituximab vs long acting mestinon. Patient concerned about starting on rituximab. Will discuss with neurology team need for this medication. If needed will arrange for administration in the outpatient setting. Plasmaphersis completed; ok for removal of central line. Tammy Jose MD Jan 25, 2018 01:25
[2018-01-25] MEDS ORDERED: PHARMACY ORDERED LAB ONE (01:45)
[2018-01-25] MEDS: methylPREDNISolone SOD SUCC 125 MG/2 ML VIAL IV PUSH SCH ×2 (02:04→07:34)
[2018-01-25] MEDS: VANCOMYCIN 1,000 MG/NS 250 ML IV SCH ×8 (02:07→19:55)
[2018-01-25] MEDS: AZTREONAM INJ 2,000 MG in SODIUM CHLORIDE 0.9% INJ 100 ML IV SCH ×2 (03:08→10:00)
[2018-01-25] MEDS: CHLORHEXIDINE GLUCONATE 2 % 1 PACK (2 CLOTHS) TOP SCH (03:08)
[2018-01-25] MEDS: LORazepam 2 MG/ML VIAL IV PUSH PRN ×6 (03:09→22:47)
[2018-01-25] MEDS: MYCOPHENOLATE MOFETIL 500 MG TAB PO SCH ×2 (05:04→17:43)
[2018-01-25] MEDS: metroNIDAZOLE 500 MG TAB PO SCH (05:04)
[2018-01-25] MEDS: PYRIDOSTIGMINE BROMIDE 60 MG TAB PO SCH ×3 (07:33→17:44)
[2018-01-25] MEDS: CITALOPRAM HYDROBROMIDE 20 MG TAB PO SCH (07:33)
[2018-01-25] MEDS: PANTOPRAZOLE SOD 40 MG DELAYED RELEASE TAB PO SCH (07:34)
[2018-01-25] MEDS: DOCUSATE SODIUM 50 MG/SENNA 8.6 MG TAB PO SCH ×2 (07:34→20:00)
[2018-01-25] MEDS: LACTOBACILLUS ACIDOPHILUS TAB PO SCH (07:34)
[2018-01-25] MEDS: ASPIRIN 81 MG CHEW TAB CHEW SCH (07:35)
[2018-01-25] MEDS: INSULIN ASPART SUPPLEMENTAL SCALE SQ SCH ×4 (07:36→21:00)
[2018-01-25] MEDS: SODIUM CHLORIDE 0.9% FLUSH 10 ML FLUSH IV FLUSH SCH ×2 (07:36→19:58)
[2018-01-25] MEDS: VANCOMYCIN 500 MG VIAL (FOR ORAL USE ONLY) PO SCH ×4 (07:37→19:56)
[2018-01-25] MEDS: BENEPROTEIN POWDER 1 PACK G-TUBE SCH ×3 (09:00→17:45)
[2018-01-25] MEDS: RESP: BUDESONIDE 0.5 MG/2 ML NEB NEB SCH ×2 (09:00→20:04)
--- NOTE | 2018-01-25 10:30 | HHI.PR ---
Subjective Remarks Follow-up myasthenia gravis exacerbation 01/21/18-patient seen and examined, denies any shortness of breath or chest pain. States, since yesterday she has been on room air. Denies any diarrhea. Taking p.o. without any complication of nausea and vomiting 01/22/18-patient seen and examined, resting comfortably denies any headaches or pain to me however reported to JAYLIN oBnilla that she was having headaches 01/23/18-patient seen and examined, completed plasma exchange. No complaint and no acute event overnight. 01/24/18-patient seen and examined; states she is doing well and states she is looking forward possible discharge later to inpatient psychiatry January 25, 2018-patient seen and examined, she is wondering if she can have Rituxan prior to discharge to Med-Psych. Otherwise stable and no acute event overnight Objective Vitals Vital Signs Date Time Temp Pulse Resp B/P (MAP) Pulse Ox O2 Delivery O2 Flow Rate FiO2 01/25/18 08:00 98.1 74 20 115/74 (88) 99 01/25/18 04:00 98.6 118 18 117/60 (79) 96 01/25/18 00:21 97.9 102 18 105/75 (85) 96 01/24/18 21:01 21 01/24/18 20:00 98.1 50 18 114/55 (74) 96 01/24/18 15:41 99.2 83 18 107/57 (74) 97 01/24/18 11:41 98.7 72 18 105/57 (73) 96 I/O 01/24/18 01/24/18 01/24/18 01/25/18 01/25/18 01/25/18 07:00 15:00 23:00 07:00 15:00 23:00 Intake Total 250 ml Balance 250 ml IV Total 250 ml # Voids 3 3 # Bowel Movements 2 Result Diagram: 01/24/18 0730 01/21/18 0405 Objective Remarks GENERAL: NAD SKIN: Warm and dry. HEAD: Normocephalic. EYES: No scleral icterus. No injection or drainage. NECK: Supple, trachea midline. No JVD or lymphadenopathy. CARDIOVASCULAR: Regular rate and rhythm without murmurs, gallops, or rubs. RESPIRATORY: Breath sounds equal bilaterally. No accessory muscle use. GASTROINTESTINAL: Abdomen soft, non-tender, nondistended. MUSCULOSKELETAL: No cyanosis, or edema. BACK: Nontender without obvious deformity. No CVA tenderness. Procedures none A/P Problem List: (1) Myasthenia gravis with exacerbation ICD Code: G70.01 - Myasthenia gravis with exacerbation Status: Acute (2) Clostridium difficile colitis ICD Code: A04.7 - Enterocolitis due to Clostridium difficile Status: Acute Assessment and Plan 42-year-old female with Acute Myasthenia crisis Myasthenia gravis Acute toxic metabolic metabolic encephalopathy UDS + cocaine/amphetamine/barbiturates Migraine headaches Chronic opioid use Chronic benzodiazepine use Oxycodone 5-10 mg every 6 hours as needed pain Morphine sulfate 2 mg IV every 4 hours as needed breakthrough pain -Started plasma exchange 01/13/18. Received 5 out of 5. Appreciate hematology and neurology input -Mycophenolate Mofetil 500 mg twice daily, IV methylprednisolone succinate 40 mg IV twice daily, Pyridostigmine [place] 120 mg p.o. 3 times daily On prednisone 5 mg daily at home. Currently on methylprednisolone succinate 40 mg IV every 8 hours and decrease to 20mg Q12H today 01/25/18 -Holding gabapentin 900 mg 3 times daily for neuropathy -Holding sumatriptan inhalation as needed for migraine Holding acetaminophen/butibal/caffeine 325/50/41 tablet every 6 hours as needed migraine headache -Currently On Cellcept and consider trial of Mestinon vs Rituxan per Neurology On chronic oxycodone/acetaminophen 10/325 1 tablet every 6 hours as needed pain On chronic alprazolam 1 mg every 6 hours as needed -Citalopram 40 mg daily initially held in view of concern regarding overdose. Currently on 10 mg daily -Psych has seen 01/19Maurice bowie. Transfer to inpatient psych when clinically stable within the next 24 hours s/p Respiratory arrest secondary to myasthenia crisis Acute hypoxemic and hypercarbic respiratory failure Right lower lobe pneumonia/MRSA -Emergently intubated and placed on full mechanical ventilation PRVC mode on 01/11. Extubated 01/18 -Albuterol/ipratropium aerosols every 6 hours scheduled with albuterol aerosols every 2 hours and as needed, - PT/OT . Severe bradycardia most likely from severe respiratory acidosis-resolved Sinus tachycardia - improved. -Received epinephrine bicarb and calcium Holding Midodrine 5 mg twice daily C. difficile colitis Pantoprazole 40 mg p.o. daily -On p.o. vancomycin 250 mg 4 times daily for C. difficile colitis Leukocytosis-may be 2/2 to steroid vs infectious processes Anemia/normocytic -Continue Ferrous Sulfate 325 mg twice daily/home medication -Monitor CBC daily Right lower lobe pneumonia/MRSA C. difficile colitis, recurrent Severe sepsis-Resolved Continue IV vancomycin, d/c aztreonam. P.o. vancomycin started for positive C. difficile colitis Nasal aspirate negative for influenza A and B neg. Urine for strep pneumo and Legionella antigen negative. DVT GI prophylaxis -SCDs -Enoxaparin 30 mg SQ daily -Pantoprazole Reginald Aleman MD Jan 25, 2018 10:30
[2018-01-25] MEDS: FERROUS SULFATE 325 MG (65 MG ELEMENTAL IRON) TAB PO SCH ×2 (10:51→16:16)
[2018-01-25] MEDS: methylPREDNISolone SOD SUCC 40 MG/1 ML VIAL IV PUSH SCH (19:58)
[2018-01-25] MEDS: SODIUM CHLORIDE 0.9% FLUSH 10 ML FLUSH IV FLUSH PRN (22:48)
[2018-01-25] MEDS: ENOXAPARIN SODIUM 30 MG/0.3 ML SYRINGE SQ SCH (23:30)
--- NOTE | 2018-01-25 23:54 | PD.ONC.PN ---
Subjective Subjective Remarks Resting comfortably in bed. Family at bedside. Strength improving. Objective Data Date Time Temp Pulse Resp B/P (MAP) Pulse Ox O2 Delivery O2 Flow Rate FiO2 01/25/18 20:04 99 21 01/25/18 20:00 97.8 113 18 114/70 (85) 97 01/25/18 16:00 98.5 103 20 135/77 (96) 97 01/25/18 12:00 98.6 92 20 120/71 (87) 97 01/25/18 12:00 97 01/25/18 08:00 98.1 74 20 115/74 (88) 99 01/25/18 04:00 98.6 118 18 117/60 (79) 96 01/25/18 00:21 97.9 102 18 105/75 (85) 96 Result Diagram: 01/24/18 0730 01/21/18 0405 Laboratory Results Laboratory Tests Test 01/25/18 02:05 Vancomycin Level Trough 17.6 MCG/ML Administered Medications Medications (Trade) Dose Ordered Sig/Gómez Route PRN Reason Start Time Stop Time Status Last Admin Dose Admin Aspirin (Aspirin Chew) 81 mg DAILY CHEW 01/09/18 09:00 01/25/18 07:35 Ferrous Sulfate (Ferrous Sulfate) 325 mg BID@12,17 PO 01/09/18 12:00 01/25/18 16:16 Prednisone (Deltasone) 5 mg DAILY PO 01/09/18 09:00 Future Hold 01/10/18 08:20 Pyridostigmine [place] (Mestinon) 120 mg TIDAC PO 01/09/18 08:00 01/25/18 17:44 Lactobacillus Acidophilus (Lactinex) 1 tab DAILY PO 01/09/18 09:00 01/25/18 07:34 Sodium Chloride (NS Flush) 2 ml UNSCH PRN IV FLUSH FLUSH AFTER USING IV ACCESS 01/08/18 23:30 01/25/18 22:48 Sodium Chloride (NS Flush) 2 ml BID IV FLUSH 01/09/18 09:00 01/25/18 19:58 Ondansetron HCl (Zofran Inj) 4 mg Q6H PRN IV PUSH NAUSEA OR VOMITING 01/08/18 23:30 01/22/18 17:34 Enoxaparin Sodium (Lovenox Inj) 30 mg Q24H SQ 01/08/18 23:30 01/23/18 23:36 Miscellaneous Information 1 Q361D XX 01/08/18 23:30 01/08/18 23:30 Chlorhexidine Gluconate (Chlorhexidine 2% Cloth) Taper DAILY@04 TOP 01/09/18 04:00 01/05/19 03:59 01/23/18 04:00 Senna/Docusate Sodium (Bonita-Colace) 1 tab BID PO 01/09/18 09:00 01/25/18 07:34 Magnesium Hydroxide (Milk Of Gayathri Venegas) 30 ml Q12H PRN PO Mild constipation 01/08/18 23:30 01/10/18 17:53 Sumatriptan Succinate (Imitrex Inj) 6 mg Q12H PRN SQ HEADACHE/ MIGRAINE 01/09/18 03:45 Future Hold 01/15/18 21:17 Labetalol HCl (Trandate Inj) 10 mg Q2HR PRN IV PUSH SBP greater than 160mm Hg 01/09/18 08:00 01/10/18 21:23 Lorazepam (Ativan Inj) 2 mg Q4H PRN IV PUSH agitation 01/09/18 08:30 01/25/18 22:47 Budesonide (Pulmicort Respule Neb) 0.5 mg Q12HR NEB NEB 01/11/18 08:45 01/22/18 21:22 Protein (Beneprotein Powder) 1 pack TID G-TUBE 01/12/18 13:00 01/23/18 13:00 Vancomycin HCl (VANCOMYCIN for oral use only) 250 mg QID PO 01/13/18 18:00 01/25/18 19:56 Insulin Aspart (NovoLOG SUPPLEMENTAL SCALE) 1 ACHS SQ 01/19/18 17:00 01/24/18 08:30 Pantoprazole Sodium (Protonix) 40 mg DAILY PO 01/20/18 09:00 01/25/18 07:34 Oxycodone HCl (Roxicodone) 5 mg Q6H PRN PO pain 1-5 01/19/18 12:45 01/22/18 17:34 Morphine Sulfate (Morphine Inj) 2 mg Q3H PRN IV PUSH breakthrough pain 01/19/18 12:45 01/25/18 19:50 Oxycodone HCl (Roxicodone) 10 mg Q6H PRN PO pain 6-10 01/19/18 12:45 01/25/18 17:44 Vancomycin HCl 1000 mg/Sodium Chloride 250 ml @ 250 mls/hr Q6H IV 01/20/18 02:00 01/25/18 19:55 Mycophenolate Mofetil (Cellcept) 500 mg BID@06,18 PO 01/24/18 18:00 01/25/18 17:43 Citalopram Hydrobromide (CeleXA) 20 mg DAILY PO 01/25/18 09:00 01/25/18 07:33 Methylprednisolone Sodium Succinate (SoluMEDROL INJ) 20 mg Q12H IV PUSH 01/25/18 21:00 01/25/18 19:58 Objective Remarks GENERAL: Well-nourished, well-developed patient. HEAD: Normocephalic. EYES: No scleral icterus. No injection or drainage. RESPIRATORY: No accessory muscle use. NEUROLOGICAL: No obvious focal deficit. Awake, alert, and oriented x3. PSYCHIATRIC: Appropriate mood and affect; insight and judgment normal. Assessment/Plan Problem List: (1) Myasthenia exacerbation ICD Codes: G70.01 - Myasthenia exacerbation Status: Acute Plan: --Getting a total of 5 plasma exchange treatments Assessment 42-year-old female admitted with myasthenia exacerbation; hematology consulted for coordination of plasma exchange Plan 1. Myasthenia gravis: with myastenia crisis. s/p 5 sessions of plasmapheresis with improvement in symptoms. s/p removal of vascath. Neurology following. Case discussed with Dr. De La Fuente. No plan for rituximab at this time for myasthenia. Inpatient oncology team will sign off. Please call with further questions or concerns. Tammy Jose MD Jan 25, 2018 23:54
[2018-01-26] VITALS: BP 117/71; PULSE 78; RESP 16; TEMP 97.8; O2SAT 98
[2018-01-26] MEDS: SODIUM CHLORIDE 0.9% FLUSH 10 ML FLUSH IV FLUSH PRN ×3 (01:23→04:32)
[2018-01-26] MEDS: MORPHINE SULFATE 2 MG/ML SYRINGE IV PUSH PRN ×7 (01:23→21:04)
[2018-01-26] MEDS: VANCOMYCIN 1,000 MG/NS 250 ML IV SCH ×8 (01:24→21:02)
[2018-01-26] MEDS: LORazepam 2 MG/ML VIAL IV PUSH PRN ×4 (03:33→21:04)
[2018-01-26] MEDS: CHLORHEXIDINE GLUCONATE 2 % 1 PACK (2 CLOTHS) TOP SCH (03:34)
[2018-01-26 04:00] VITALS: BP 120/76; PULSE 110; RESP 16; TEMP 97.6; O2SAT 98
[2018-01-26] MEDS: MYCOPHENOLATE MOFETIL 500 MG TAB PO SCH ×2 (06:24→17:34)
[2018-01-26] MEDS: INSULIN ASPART SUPPLEMENTAL SCALE SQ SCH ×4 (08:00→21:00)
[2018-01-26 08:19] LABS: CREATININE 0.47 MG/DL (0.50-1.00)
[2018-01-26 08:20] VITALS: BP 110/71; PULSE 102; RESP 20; TEMP 97.9; O2SAT 97
[2018-01-26] MEDS: PYRIDOSTIGMINE BROMIDE 60 MG TAB PO SCH ×3 (08:25→17:34)
[2018-01-26] MEDS: ASPIRIN 81 MG CHEW TAB CHEW SCH (08:25)
[2018-01-26] MEDS: CITALOPRAM HYDROBROMIDE 20 MG TAB PO SCH (08:25)
[2018-01-26] MEDS: PANTOPRAZOLE SOD 40 MG DELAYED RELEASE TAB PO SCH (08:25)
[2018-01-26] MEDS: methylPREDNISolone SOD SUCC 40 MG/1 ML VIAL IV PUSH SCH ×2 (08:26→21:03)
[2018-01-26] MEDS: VANCOMYCIN 500 MG VIAL (FOR ORAL USE ONLY) PO SCH ×4 (08:26→21:02)
[2018-01-26] MEDS: LACTOBACILLUS ACIDOPHILUS TAB PO SCH (08:26)
[2018-01-26] MEDS: DOCUSATE SODIUM 50 MG/SENNA 8.6 MG TAB PO SCH ×2 (08:28→21:02)
[2018-01-26] MEDS: SODIUM CHLORIDE 0.9% FLUSH 10 ML FLUSH IV FLUSH SCH ×2 (08:28→21:03)
[2018-01-26] MEDS: BENEPROTEIN POWDER 1 PACK G-TUBE SCH (09:00)
[2018-01-26] MEDS: RESP: BUDESONIDE 0.5 MG/2 ML NEB NEB SCH ×2 (09:19→18:46)
[2018-01-26] MEDS: FERROUS SULFATE 325 MG (65 MG ELEMENTAL IRON) TAB PO SCH ×2 (11:30→17:34)
[2018-01-26 12:00] VITALS: BP 112/64; PULSE 90; RESP 20; TEMP 98; O2SAT 99
[2018-01-26 13:46] LABS: AUTOMATED NEUTROPHIL # 14.8 TH/MM3 (1.8-7.7); BASOPHIL # 0.1 TH/MM3 (0-0.2); BASOPHIL % 0.4 % (0.0-2.0); HEMATOCRIT 33.9 % (35.0-46.0); HEMOGLOBIN 10.7 GM/DL (11.6-15.3); LYMPH % 3.4 % (9.0-44.0); LYMPHOCYTE # 0.5 TH/MM3 (1.0-4.8); MEAN CELL VOLUME 85.5 FL (80.0-100.0); MEAN CORPUSCULAR HGB CONC 31.6 % (32.0-36.0); MEAN PLATELET VOLUME 8.3 FL (7.0-11.0); MONO % 2.7 % (0.0-8.0); MONOCYTE # 0.4 TH/MM3 (0-0.9); NEUT % 93.5 % (16.0-70.0); PLATELET COUNT 398 TH/MM3 (150-450); RED BLOOD COUNT 3.97 MIL/MM3 (4.00-5.30); WHITE BLOOD COUNT 15.9 TH/MM3 (4.0-11.0)
[2018-01-26 14:20] LABS: OVALOCYTES 1+ (NORMAL); STOMATOCYTES 1+ (NORMAL); TEARDROP RBCS 1+ (NORMAL)
--- NOTE | 2018-01-26 15:22 | HHI.PR ---
Subjective Remarks Patient resting in bed, no abdominal pain fever or chills, stated her strength is okay today, stool "more chunky " Objective Vitals Vital Signs Date Time Temp Pulse Resp B/P (MAP) Pulse Ox O2 Delivery O2 Flow Rate FiO2 01/26/18 12:00 98.0 90 20 112/64 (80) 99 01/26/18 09:19 21 01/26/18 08:20 97.9 102 20 110/71 (84) 97 01/26/18 04:00 97.6 110 16 120/76 (91) 98 01/26/18 00:00 97.8 78 16 117/71 (86) 98 01/25/18 20:04 99 21 01/25/18 20:00 97.8 113 18 114/70 (85) 97 01/25/18 16:00 98.5 103 20 135/77 (96) 97 I/O 01/25/18 01/25/18 01/25/18 01/26/18 01/26/18 01/26/18 07:00 15:00 23:00 07:00 15:00 23:00 Intake Total 690 ml 500 ml Balance 690 ml 500 ml Intake Oral 690 ml IV Total 500 ml # Voids 3 8 # Bowel Movements 6 Result Diagram: 01/26/18 1330 01/26/18 0630 Objective Remarks GENERAL: This is a well-nourished, well-developed patient, in no apparent distress. SKIN: No rashes, warm and dry HEAD: Atraumatic. Normocephalic. EYES: Pupils equal round and reactive. Extraocular motions intact. No scleral icterus. ENT: Nose without bleeding, or drainage, Airway patent. NECK: Trachea midline. Supple CARDIOVASCULAR: Regular rate and rhythm without murmurs, gallops, or rubs. RESPIRATORY: Fair air entry bilaterally. No wheezes, rales, or rhonchi. GASTROINTESTINAL: Abdomen soft, non-tender, nondistended. Positive bowel sounds MUSCULOSKELETAL: Extremities without clubbing, cyanosis, or edema. Pedal pulses appreciated NEUROLOGICAL: Awake and alert. Moves all extremity. Normal speech.no focal neurological deficit Procedures none A/P Problem List: (1) Myasthenia gravis with exacerbation ICD Code: G70.01 - Myasthenia gravis with exacerbation Status: Acute (2) Clostridium difficile colitis ICD Code: A04.7 - Enterocolitis due to Clostridium difficile Status: Acute Assessment and Plan 42-year-old female with 01/26: Continue current care patient on Vanco p.o. and IV for MRSA pneumonia and C. difficile, plus Flagyl, stool seems to be getting slightly firm, appreciate neurology follow-up, continue monitor GI symptoms, and MG clinical symptom A/P: Acute Myasthenia crisis Myasthenia gravis Acute toxic metabolic metabolic encephalopathy UDS + cocaine/amphetamine/barbiturates Migraine headaches Chronic opioid use Chronic benzodiazepine use Oxycodone 5-10 mg every 6 hours as needed pain Morphine sulfate 2 mg IV every 4 hours as needed breakthrough pain -Started plasma exchange 01/13/18. Received 5 out of 5. Appreciate hematology and neurology input -Mycophenolate Mofetil , IV methylprednisolone bid, Pyridostigmine [place] 120 mg p.o. 3 times daily -Holding gabapentin 900 mg 3 times daily for neuropathy -Holding sumatriptan inhalation as needed for migraine Holding acetaminophen/butibal/caffeine 325/50/41 tablet every 6 hours as needed migraine headache -Neurology following, plan for cyclosporine trial On chronic oxycodone/acetaminophen 10/325 1 tablet every 6 hours as needed pain On chronic alprazolam 1 mg every 6 hours as needed -Citalopram 40 mg daily initially held in view of concern regarding overdose. Currently on 10 mg daily -Psych has seen 01/19Maurice bowie. Transfer to inpatient psych when clinically stable within the next 24 hours s/p Respiratory arrest secondary to myasthenia crisis Acute hypoxemic and hypercarbic respiratory failure Right lower lobe pneumonia/MRSA -Emergently intubated and placed on full mechanical ventilation PRVC mode on 01/11. Extubated 01/18 -Albuterol/ipratropium aerosols every 6 hours scheduled with albuterol aerosols every 2 hours and as needed, - PT/OT . Severe bradycardia most likely from severe respiratory acidosis-resolved Sinus tachycardia - improved. -Received epinephrine bicarb and calcium Holding Midodrine 5 mg twice daily C. difficile colitis Pantoprazole 40 mg p.o. daily -On p.o. vancomycin 250 mg 4 times daily for C. difficile colitis Leukocytosis-may be 2/2 to steroid vs infectious processes Anemia/normocytic -Continue Ferrous Sulfate 325 mg twice daily/home medication -Monitor CBC daily Right lower lobe pneumonia/MRSA C. difficile colitis, recurrent Severe sepsis-Resolved Continue IV vancomycin, d/c aztreonam. P.o. vancomycin started for positive C. difficile colitis Nasal aspirate negative for influenza A and B neg. Urine for strep pneumo and Legionella antigen negative. DVT GI prophylaxis -SCDs -Enoxaparin 30 mg SQ daily -Pantoprazole Miguel Ángel Solomon MD Jan 26, 2018 15:22
[2018-01-26 16:44] VITALS: BP 103/63; PULSE 108; RESP 20; TEMP 98; O2SAT 98
--- NOTE | 2018-01-26 17:07 | HHI.PR ---
Review/Management Diagnosis myasthenia gravis---- depression Plan trial of cyclosporin Diagnosis/Plan: Subjective Subjective Comments No acute events reported feels strength is preserved. Active Medications Current Medications Medications (Trade) Dose Ordered Sig/Gómez Route Start Time Stop Time Status Last Admin (Aspirin Chew) 81 mg DAILY CHEW 01/09/18 09:00 01/26/18 08:25 (Ferrous Sulfate) 325 mg BID@12,17 PO 01/09/18 12:00 01/26/18 11:30 (Neurontin) 300 mg Q8H PO 01/08/18 23:15 Future Hold (Deltasone) 5 mg DAILY PO 01/09/18 09:00 Future Hold 01/10/18 08:20 (Mestinon) 120 mg TIDAC PO 01/09/18 08:00 01/26/18 11:29 (Lactinex) 1 tab DAILY PO 01/09/18 09:00 01/26/18 08:26 (NS Flush) 2 ml UNSCH PRN IV FLUSH 01/08/18 23:30 01/26/18 04:32 (NS Flush) 2 ml BID IV FLUSH 01/09/18 09:00 01/26/18 08:28 (Zofran Inj) 4 mg Q6H PRN IV PUSH 01/08/18 23:30 01/22/18 17:34 (Lovenox Inj) 30 mg Q24H SQ 01/08/18 23:30 01/23/18 23:36 Miscellaneous Information 1 Q361D XX 01/08/18 23:30 01/08/18 23:30 (Chlorhexidine 2% Cloth) Taper DAILY@04 TOP 01/09/18 04:00 01/05/19 03:59 01/23/18 04:00 (Chlorhexidine 2% Cloth) 3 pack UNSCH PRN TOP 01/08/18 23:30 (Bonita-Colace) 1 tab BID PO 01/09/18 09:00 01/26/18 08:28 (Milk Of Magnesia Liq) 30 ml Q12H PRN PO 01/08/18 23:30 01/10/18 17:53 (Senokot) 17.2 mg Q12H PRN PO 01/08/18 23:30 (Dulcolax Supp) 10 mg DAILY PRN RECTAL 01/08/18 23:30 (Lactulose Liq) 30 ml DAILY PRN PO 01/08/18 23:30 (Imitrex Inj) 6 mg Q12H PRN SQ 01/09/18 03:45 Future Hold 01/15/18 21:17 (Trandate Inj) 10 mg Q2HR PRN IV PUSH 01/09/18 08:00 01/10/18 21:23 (Pulmicort Respule Neb) 0.5 mg Q12HR NEB NEB 01/11/18 08:45 01/22/18 21:22 (NS Flush) 5 ml UNSCH PRN IV FLUSH 01/13/18 11:15 (Heparin Inj) 2,000 units UNSCH PRN IV FLUSH 01/13/18 11:15 (NS Flush) 10 ml UNSCH PRN IV FLUSH 01/13/18 11:15 Pharmacy Profile Note 0 ml @ 0 mls/hr UNSCH OTHER 01/13/18 14:30 (VANCOMYCIN for oral use only) 250 mg QID PO 01/13/18 18:00 01/26/18 12:41 (Tylenol 650 Mg/ 20 ml Liq) 650 mg Q6H PRN PO 01/16/18 13:30 (Albuterol Neb) 2.5 mg Q2HR NEB PRN NEB 01/16/18 13:30 (NovoLOG SUPPLEMENTAL SCALE) 1 ACHS SQ 01/19/18 17:00 01/26/18 12:47 (Protonix) 40 mg DAILY PO 01/20/18 09:00 01/26/18 08:25 (Roxicodone) 5 mg Q6H PRN PO 01/19/18 12:45 01/22/18 17:34 (Morphine Inj) 2 mg Q3H PRN IV PUSH 01/19/18 12:45 01/26/18 14:44 (Roxicodone) 10 mg Q6H PRN PO 01/19/18 12:45 01/26/18 12:47 (D50w (Vial) Inj) 50 ml UNSCH PRN IV PUSH 01/19/18 13:15 (Glucagon Inj) 1 mg UNSCH PRN OTHER 01/19/18 13:15 (Pill Splitter) 1 ea UNSCH PRN OTHER 01/19/18 14:00 Vancomycin HCl 1000 mg/Sodium Chloride 250 ml @ 250 mls/hr Q6H IV 01/20/18 02:00 01/26/18 13:06 (Cellcept) 500 mg BID@,18 PO 01/24/18 18:00 01/26/18 06:24 (CeleXA) 20 mg DAILY PO 01/25/18 09:00 01/26/18 08:25 (SoluMEDROL INJ) 20 mg Q12H IV PUSH 01/25/18 21:00 01/26/18 08:26 (Ativan Inj) 1 mg Q6H PRN IV PUSH 01/26/18 11:45 01/26/18 14:44 Allergies Allergies Coded Allergies penicillin G (Unverified Allergy, Severe, Anaphylaxis, 01/08/18) promethazine (Unverified Adverse Reaction, Severe, NAUSEOUS, 01/08/18) Review of Systems All other ROS: ROS reviewed as documented in chart Exam I&O / VS 01/26/18 01/26/18 01/27/18 14:59 22:59 06:59 Intake Total 500 ml Balance 500 ml IV Total 500 ml Vital Signs Date Time Temp Pulse Resp B/P (MAP) Pulse Ox O2 Delivery O2 Flow Rate FiO2 01/26/18 16:44 98.0 108 20 103/63 (76) 98 01/26/18 12:00 98.0 90 20 112/64 (80) 99 01/26/18 09:19 21 01/26/18 08:20 97.9 102 20 110/71 (84) 97 01/26/18 04:00 97.6 110 16 120/76 (91) 98 01/26/18 00:00 97.8 78 16 117/71 (86) 98 01/25/18 20:04 99 21 01/25/18 20:00 97.8 113 18 114/70 (85) 97 General: Alert and Oriented, No acute distress Eye: PERRL, EOMI, Normal conjuctiva Respiratory: Non-labored respirations, Symmetrical expansion Cardiology: Normal rate, Intact pulses, Regular Rhythm Musculoskeletal: ROM Neurologic: Alert, Oriented, Normal motor, CN II-XII intact, Normal DTR's Psychiatric: Cooperative, Appropriate mood & affect, Normal judgement Exam Comments alert, speech normal, comprehension normal CN--no ptosis, EOM intact MOTOR 5/5 BUE and BLE Objective Micro and Labs Laboratory Tests Test 01/26/18 06:30 01/26/18 13:30 Creatinine 0.47 Estimat Glomerular Filtration Rate 146 White Blood Count 15.9 Red Blood Count 3.97 Hemoglobin 10.7 Hematocrit 33.9 Mean Corpuscular Volume 85.5 Mean Corpuscular Hemoglobin 27.0 Mean Corpuscular Hemoglobin Concent 31.6 Red Cell Distribution Width 26.0 Platelet Count 398 Mean Platelet Volume 8.3 Neutrophils (%) (Auto) 93.5 Lymphocytes (%) (Auto) 3.4 Monocytes (%) (Auto) 2.7 Eosinophils (%) (Auto) 0.0 Basophils (%) (Auto) 0.4 Neutrophils # (Auto) 14.8 Lymphocytes # (Auto) 0.5 Monocytes # (Auto) 0.4 Eosinophils # (Auto) 0.0 Basophils # (Auto) 0.1 CBC Comment AUTO DIFF Differential Comment AUTO DIFF CONFIRMED Tear Drop Cells 1+ Ovalocytes 1+ Stomatocytes 1+ Date/Time Source Procedure Growth Status 01/11/18 11:31 Blood Peripheral Aerobic Blood Culture - Final NO GROWTH IN 5 DAYS Complete 01/11/18 11:31 Blood Peripheral Anaerobic Blood Culture - Final NO GROWTH IN 5 DAYS Complete 01/13/18 17:15 Stool Stool Stool Occult Blood (MANUELITO) - Final HEMOCCULT POSITIVE Complete 01/12/18 14:00 Sputum Endotracheal Gram Stain - Final Complete 01/12/18 14:00 Sputum Culture - Final S. Aureus Mrsa Complete 01/11/18 12:20 Urine Catheterized Urine Urine Culture - Final NO GROWTH IN 48 HOURS. Complete Leonrado De La Fuente MD PhD Jan 26, 2018 17:06
[2018-01-26] MEDS: cycloSPORINE 25 MG CAP PO SCH (18:46)
[2018-01-26 20:00] VITALS: BP 107/56; PULSE 93; RESP 18; TEMP 98.1; O2SAT 97
[2018-01-26] MEDS: ENOXAPARIN SODIUM 30 MG/0.3 ML SYRINGE SQ SCH (21:41)
[2018-01-27] VITALS: BP 120/63; PULSE 96; RESP 22; TEMP 97.9; O2SAT 98
[2018-01-27] MEDS: MORPHINE SULFATE 2 MG/ML SYRINGE IV PUSH PRN ×5 (00:21→15:58)
[2018-01-27] MEDS: LORazepam 2 MG/ML VIAL IV PUSH PRN ×3 (03:44→15:59)
[2018-01-27] MEDS: VANCOMYCIN 1,000 MG/NS 250 ML IV SCH ×4 (03:45→09:40)
[2018-01-27] MEDS: CHLORHEXIDINE GLUCONATE 2 % 1 PACK (2 CLOTHS) TOP SCH (04:00)
[2018-01-27] MEDS: cycloSPORINE 25 MG CAP PO SCH ×2 (06:00→15:58)
[2018-01-27 06:23] VITALS: BP 113/58; PULSE 86; RESP 18; TEMP 97.9; O2SAT 96
[2018-01-27] MEDS: MYCOPHENOLATE MOFETIL 500 MG TAB PO SCH ×2 (07:23→16:57)
[2018-01-27 07:42] VITALS: BP 120/70; PULSE 108; RESP 18; TEMP 98; O2SAT 98
[2018-01-27] MEDS: RESP: BUDESONIDE 0.5 MG/2 ML NEB NEB SCH ×2 (08:00→19:32)
[2018-01-27] MEDS: INSULIN ASPART SUPPLEMENTAL SCALE SQ SCH ×4 (08:00→20:35)
[2018-01-27 08:09] LABS: CREATININE 0.52 MG/DL (0.50-1.00)
[2018-01-27] MEDS: DOCUSATE SODIUM 50 MG/SENNA 8.6 MG TAB PO SCH ×2 (09:00→20:29)
[2018-01-27] MEDS: CITALOPRAM HYDROBROMIDE 20 MG TAB PO SCH (09:30)
[2018-01-27] MEDS: ASPIRIN 81 MG CHEW TAB CHEW SCH (09:30)
[2018-01-27] MEDS: methylPREDNISolone SOD SUCC 40 MG/1 ML VIAL IV PUSH SCH ×2 (09:31→20:28)
[2018-01-27] MEDS: PYRIDOSTIGMINE BROMIDE 60 MG TAB PO SCH ×3 (09:31→16:59)
[2018-01-27] MEDS: PANTOPRAZOLE SOD 40 MG DELAYED RELEASE TAB PO SCH (09:31)
[2018-01-27] MEDS: LACTOBACILLUS ACIDOPHILUS TAB PO SCH (09:31)
[2018-01-27] MEDS: VANCOMYCIN 500 MG VIAL (FOR ORAL USE ONLY) PO SCH ×4 (09:32→20:28)
[2018-01-27] MEDS: SODIUM CHLORIDE 0.9% FLUSH 10 ML FLUSH IV FLUSH SCH ×2 (09:37→20:29)
[2018-01-27 11:41] VITALS: BP 105/67; PULSE 93; RESP 18; TEMP 98.4; O2SAT 97
[2018-01-27] MEDS: FERROUS SULFATE 325 MG (65 MG ELEMENTAL IRON) TAB PO SCH ×2 (12:36→16:58)
--- NOTE | 2018-01-27 13:39 | MB ---
cc: Bjorn Paiz MD DATE: 01/27/2018 REQUESTING PHYSICIAN: Miguel Ángel Solomon MD REASON FOR CONSULTATION: Myasthenia gravis flare complicated with Clostridium difficile and MRSA pneumonia. Assist with antibiotic management. HISTORY OF PRESENT ILLNESS: This is a 48-year-old white female who was admitted to the hospital on 01/08/2018 with flare-up of myasthenia gravis. The patient has been treated in the hospital for the myasthenia. At one point, during this hospitalization, she was intubated because of bradycardia and respiratory distress. The patient was unresponsive on 01/11/2018 and she had severe bradycardia and impending cardiopulmonary arrest. She has since been extubated and was transferred to the floor. The patient had positive sputum culture with MRSA recovered on 01/12/2018 and she was put on IV vancomycin, which she is currently receiving since then. She is also on oral vancomycin for Clostridium difficile colitis, which was diagnosed on 01/13/2018. She notes that she was having watery stools at the time of the C. difficile testing. Her stools are now becoming more formed and are no longer watery. Denies abdominal pain and she has no nausea or vomiting. She is afebrile. White blood cell count is 15.9. It was increased up to 25.6 on 01/23/2018 and had remained mostly elevated throughout this hospitalization. She has been on methylprednisolone and still continues to receive that medication. She is currently sitting upright in bed and is awake and alert and oriented. Last chest x-ray was on 01/20/2018 and it showed improving bibasilar infiltrates. She has no cough or sputum production. PAST MEDICAL AND SURGICAL HISTORY: Myasthenia gravis diagnosed 8 years ago. The patient has had multiple flare-ups. Depression, hypertension, avascular necrosis of the right hip, right hip replacement, thymus removal, bilateral tubal ligation, tonsillectomy, Infusaport placement into the left chest. ALLERGIES: PENICILLIN G, PROMETHAZINE. MEDICATIONS: Methylprednisolone, Celexa, CellCept, Protonix, vancomycin intravenous, vancomycin oral, oxycodone 5 mg q.6 hours p.r.n., morphine sulfate p.r.n., ferrous sulfate, aspirin, Lactinex, Bonita-Colace, Mestinon, Trandate. SOCIAL HISTORY: The patient denies tobacco use. She denies alcohol use. She denies IV drug use. FAMILY HISTORY: Noncontributory. REVIEW OF SYSTEMS: Significant for diarrhea. Otherwise, negative on 10-point review. PHYSICAL EXAMINATION:. GENERAL: This is a thin, well-developed female in no acute distress. She is awake, alert and oriented. VITAL SIGNS: Temperature 98.4, blood pressure 105/67, respirations 18, heart rate 93. HEENT: Head is atraumatic. Extraocular movements grossly intact. Pupils reactive to light. No icterus. Oropharynx moist mucosa. No visible lesions. No thrush. NECK: Supple without adenopathy or swelling. LUNGS: Clear to auscultation. HEART: Regular S1 and S2, without murmurs, rubs or gallops. CHEST: Left chest has an Infusaport in place which appears intact. ABDOMEN: Bowel sounds present. Soft, no tenderness appreciated. RECTAL: Not performed. EXTREMITIES: No clubbing, cyanosis or edema. SKIN: No diffuse rash. NEUROLOGIC: No gross focal findings. PSYCHIATRIC: The patient is calm and cooperative. LABORATORY DATA: WBC 15.9, platelets 398, 93% neutrophils, hemoglobin 10.7. Creatinine 0.52 and estimated GFR 130. IMPRESSION: 1. Clostridium difficile colitis, which appears to be improving since the patient's stools are becoming formed. She no longer has diarrhea at this time. 2. Pneumonia due to methicillin-resistant Staphylococcus aureus, which has been treated with vancomycin. The patient has no cough or sputum production. 3. Myasthenia gravis exacerbation. 4. Leukocytosis secondary to steroids. RECOMMENDATIONS: 1. Discontinue IV vancomycin since the patient's pneumonia appears to have been adequately treated. 2. Give p.o. vancomycin for another couple of days and then discontinue it and monitor the patient. If she has recurrence of loose stools, the C. difficile test can be repeated and she can be placed on p.o. vancomycin again, but plan on treating for a longer period of time. Thank you for this consultation. I will monitor the patient's progress along with you and will make further recommendations if necessary. MD VALERI Walker/CARLO , 12:54 PM , 01:39 PM ALISTAIR
[2018-01-27 16:20] VITALS: BP 142/71; PULSE 102; RESP 18; TEMP 98; O2SAT 99
--- NOTE | 2018-01-27 16:30 | HHI.PR ---
Subjective Remarks Patient reported stool is still getting firmer no fever or chills or abdominal pain No cough or sputum production She reported feeling burning and tingling/pain in her lower extremity after she received cyclosporine yesterday she did not want to take this again I ordered ID to see patient earlier, they recommend stopping IV Vanco Objective Vitals Vital Signs Date Time Temp Pulse Resp B/P (MAP) Pulse Ox O2 Delivery O2 Flow Rate FiO2 01/27/18 16:20 98.0 102 18 142/71 (94) 99 01/27/18 11:41 98.4 93 18 105/67 (80) 97 01/27/18 07:42 98.0 108 18 120/70 (87) 98 01/27/18 06:23 97.9 86 18 113/58 (76) 96 01/27/18 00:00 97.9 96 22 120/63 (82) 98 01/26/18 20:00 98.1 93 18 107/56 (73) 97 01/26/18 16:44 98.0 108 20 103/63 (76) 98 I/O 01/26/18 01/26/18 01/26/18 01/27/18 01/27/18 01/27/18 07:00 15:00 23:00 07:00 15:00 23:00 Intake Total 500 ml 930 ml 970 ml Balance 500 ml 930 ml 970 ml Intake Oral 930 ml 720 ml IV Total 500 ml 250 ml # Voids 4 3 3 # Bowel Movements 3 0 Result Diagram: 01/26/18 1330 01/27/18 0725 Objective Remarks GENERAL: This is a well-nourished, well-developed patient, in no apparent distress. SKIN: No rashes, warm and dry HEAD: Atraumatic. Normocephalic. EYES: Pupils equal round and reactive. Extraocular motions intact. No scleral icterus. ENT: Nose without bleeding, or drainage, Airway patent. NECK: Trachea midline. Supple CARDIOVASCULAR: Regular rate and rhythm without murmurs, gallops, or rubs. RESPIRATORY: Fair air entry bilaterally. No wheezes, rales, or rhonchi. GASTROINTESTINAL: Abdomen soft, non-tender, nondistended. Positive bowel sounds MUSCULOSKELETAL: Extremities without clubbing, cyanosis, or edema. Pedal pulses appreciated NEUROLOGICAL: Awake and alert. Moves all extremity. Normal speech.no focal neurological deficit Procedures none A/P Problem List: (1) Myasthenia gravis with exacerbation ICD Code: G70.01 - Myasthenia gravis with exacerbation Status: Acute (2) Clostridium difficile colitis ICD Code: A04.7 - Enterocolitis due to Clostridium difficile Status: Acute Assessment and Plan 42-year-old female with 01/26: Continue current care patient on Vanco p.o. and IV for MRSA pneumonia and C. difficile, plus Flagyl, stool seems to be getting slightly firm, appreciate neurology follow-up, continue monitor GI symptoms, and MG clinical symptom 01/27: Appreciate ID consultation, DC IV vancomycin continue p.o. for couple of days then stop and assess for any recurrent diarrhea if so patient will be on longer period of p.o. vancomycin, patient reported developing peripheral neuropathy reaction to the cyclosporine, will follow neurology recommendation. I discussed with the patient tapering her narcotic she is on 10 mg of oxycodone every 6 hours, as needed as well as 2 mg of IV morphine and 2 mg of IV Ativan every 6 hours as needed we will change that to Roxicodone 7.5 mg, DC morphine, change to Ativan p.o. 1 mg every 6 hours as needed A/P: Acute Myasthenia crisis Myasthenia gravis Acute toxic metabolic metabolic encephalopathy UDS + cocaine/amphetamine/barbiturates Migraine headaches Chronic opioid use Chronic benzodiazepine use Oxycodone 5-10 mg every 6 hours as needed pain Morphine sulfate 2 mg IV every 4 hours as needed breakthrough pain -Started plasma exchange 01/13/18. Received 5 out of 5. Appreciate hematology and neurology input -Mycophenolate Mofetil , IV methylprednisolone bid, Pyridostigmine Sarita 120 mg p.o. 3 times daily -Holding gabapentin 900 mg 3 times daily for neuropathy -Holding sumatriptan inhalation as needed for migraine Holding acetaminophen/butibal/caffeine 325/50/41 tablet every 6 hours as needed migraine headache -Neurology following, plan for cyclosporine trial On chronic oxycodone/acetaminophen 10/325 1 tablet every 6 hours as needed pain On chronic alprazolam 1 mg every 6 hours as needed -Citalopram 40 mg daily initially held in view of concern regarding overdose. Currently on 10 mg daily -Psych has seen 01/19. India bowie. Transfer to inpatient psych when clinically stable within the next 24 hours s/p Respiratory arrest secondary to myasthenia crisis Acute hypoxemic and hypercarbic respiratory failure Right lower lobe pneumonia/MRSA -Emergently intubated and placed on full mechanical ventilation PRVC mode on 01/11. Extubated 01/18 -Albuterol/ipratropium aerosols every 6 hours scheduled with albuterol aerosols every 2 hours and as needed, - PT/OT . Severe bradycardia most likely from severe respiratory acidosis-resolved Sinus tachycardia - improved. -Received epinephrine bicarb and calcium Holding Midodrine 5 mg twice daily C. difficile colitis Pantoprazole 40 mg p.o. daily -On p.o. vancomycin 250 mg 4 times daily for C. difficile colitis Leukocytosis-may be 2/2 to steroid vs infectious processes Anemia/normocytic -Continue Ferrous Sulfate 325 mg twice daily/home medication -Monitor CBC daily Right lower lobe pneumonia/MRSA C. difficile colitis, recurrent Severe sepsis-Resolved Continue IV vancomycin, d/c aztreonam. P.o. vancomycin started for positive C. difficile colitis Nasal aspirate negative for influenza A and B neg. Urine for strep pneumo and Legionella antigen negative. DVT GI prophylaxis -SCDs -Enoxaparin 30 mg SQ daily -Pantoprazole Miguel Ángel Solomon MD Jan 27, 2018 16:30
[2018-01-27 20:00] VITALS: BP_SYST 121; BP_SYST 141; BP_DIAS 60; BP_DIAS 82; PULSE 73; PULSE 85; RESP 18; TEMP 97.9; TEMP 98.1; O2SAT 96; O2SAT 97
[2018-01-27] MEDS: ENOXAPARIN SODIUM 30 MG/0.3 ML SYRINGE SQ SCH (22:08)
[2018-01-28] VITALS: BP 121/60; PULSE 78; RESP 18; TEMP 98.3; O2SAT 99
[2018-01-28] MEDS: LORazepam 1 MG TAB PO PRN ×3 (00:13→16:36)
[2018-01-28] MEDS: CHLORHEXIDINE GLUCONATE 2 % 1 PACK (2 CLOTHS) TOP SCH (02:57)
[2018-01-28 05:00] VITALS: BP 115/70; PULSE 79; RESP 18; TEMP 97.5; O2SAT 98
[2018-01-28] MEDS: cycloSPORINE 25 MG CAP PO SCH (06:00)
[2018-01-28] MEDS: MYCOPHENOLATE MOFETIL 500 MG TAB PO SCH ×2 (06:26→16:36)
[2018-01-28 07:00] VITALS: BP 124/78; PULSE 86; RESP 20; TEMP 97.9; O2SAT 98
[2018-01-28] MEDS: RESP: BUDESONIDE 0.5 MG/2 ML NEB NEB SCH ×2 (07:12→20:00)
[2018-01-28] MEDS: INSULIN ASPART SUPPLEMENTAL SCALE SQ SCH ×4 (08:00→20:03)
[2018-01-28] MEDS: VANCOMYCIN 500 MG VIAL (FOR ORAL USE ONLY) PO SCH ×4 (08:32→20:05)
[2018-01-28] MEDS: PYRIDOSTIGMINE BROMIDE 60 MG TAB PO SCH ×3 (08:34→16:36)
[2018-01-28] MEDS: PANTOPRAZOLE SOD 40 MG DELAYED RELEASE TAB PO SCH (08:34)
[2018-01-28] MEDS: LACTOBACILLUS ACIDOPHILUS TAB PO SCH (08:34)
[2018-01-28] MEDS: CITALOPRAM HYDROBROMIDE 20 MG TAB PO SCH (08:34)
[2018-01-28] MEDS: DOCUSATE SODIUM 50 MG/SENNA 8.6 MG TAB PO SCH ×2 (08:34→21:05)
[2018-01-28] MEDS: ASPIRIN 81 MG CHEW TAB CHEW SCH (08:34)
[2018-01-28] MEDS: methylPREDNISolone SOD SUCC 40 MG/1 ML VIAL IV PUSH SCH ×2 (08:38→20:03)
[2018-01-28] MEDS: SODIUM CHLORIDE 0.9% FLUSH 10 ML FLUSH IV FLUSH SCH ×2 (08:38→20:03)
[2018-01-28] MEDS: ONDANSETRON HCL 4 MG/2 ML VIAL IV PUSH PRN (10:44)
[2018-01-28] MEDS: FERROUS SULFATE 325 MG (65 MG ELEMENTAL IRON) TAB PO SCH ×2 (12:11→16:36)
[2018-01-28 12:34] VITALS: BP 114/66; PULSE 84; RESP 20; TEMP 97.7; O2SAT 93
[2018-01-28 15:45] VITALS: BP 115/76; PULSE 93; RESP 20; TEMP 97.9; O2SAT 96
[2018-01-28] MEDS ORDERED: ENOX30P SQ (19:37)
[2018-01-28] MEDS ORDERED: VANC500I3 PO (19:37)
--- NOTE | 2018-01-28 19:38 | HHI.PR ---
Subjective Remarks Patient is not very happy about decreasing her pain medication doses otherwise no acute issue Objective Vitals Vital Signs Date Time Temp Pulse Resp B/P (MAP) Pulse Ox O2 Delivery O2 Flow Rate FiO2 01/28/18 15:45 97.9 93 20 115/76 (89) 96 01/28/18 12:34 97.7 84 20 114/66 (82) 93 01/28/18 07:00 97.9 86 20 124/78 (93) 98 01/28/18 05:00 97.5 79 18 115/70 (85) 98 01/28/18 00:00 98.3 78 18 121/60 (80) 99 01/27/18 20:00 97.9 73 18 121/60 (80) 97 I/O 01/27/18 01/27/18 01/27/18 01/28/18 01/28/18 01/28/18 07:00 15:00 23:00 07:00 15:00 23:00 Intake Total 970 ml 960 ml Balance 970 ml 960 ml Intake Oral 720 ml 960 ml IV Total 250 ml # Voids 3 3 1 4 3 # Bowel Movements 0 1 Result Diagram: 01/26/18 1330 01/27/18 0725 Objective Remarks GENERAL: This is a well-nourished, well-developed patient, in no apparent distress. SKIN: No rashes, warm and dry HEAD: Atraumatic. Normocephalic. EYES: Pupils equal round and reactive. Extraocular motions intact. No scleral icterus. ENT: Nose without bleeding, or drainage, Airway patent. NECK: Trachea midline. Supple CARDIOVASCULAR: Regular rate and rhythm without murmurs, gallops, or rubs. RESPIRATORY: Fair air entry bilaterally. No wheezes, rales, or rhonchi. GASTROINTESTINAL: Abdomen soft, non-tender, nondistended. Positive bowel sounds MUSCULOSKELETAL: Extremities without clubbing, cyanosis, or edema. Pedal pulses appreciated NEUROLOGICAL: Awake and alert. Moves all extremity. Normal speech.no focal neurological deficit Procedures none A/P Problem List: (1) Myasthenia gravis with exacerbation ICD Code: G70.01 - Myasthenia gravis with exacerbation Status: Acute (2) Clostridium difficile colitis ICD Code: A04.7 - Enterocolitis due to Clostridium difficile Status: Acute Assessment and Plan 42-year-old female with 4/18: Continue current care patient on Vanco p.o. and IV for MRSA pneumonia and C. difficile, plus Flagyl, stool seems to be getting slightly firm, appreciate neurology follow-up, continue monitor GI symptoms, and MG clinical symptom 01/27: Appreciate ID consultation, DC IV vancomycin continue p.o. for couple of days then stop and assess for any recurrent diarrhea if so patient will be on longer period of p.o. vancomycin, patient reported developing peripheral neuropathy reaction to the cyclosporine, will follow neurology recommendation. I discussed with the patient tapering her narcotic she is on 10 mg of oxycodone every 6 hours, as needed as well as 2 mg of IV morphine and 2 mg of IV Ativan every 6 hours as needed we will change that to Roxicodone 7.5 mg, DC morphine, change to Ativan p.o. 1 mg every 6 hours as needed 01/28: Plan to DC patient to [facility] when place available A/P: Acute Myasthenia crisis Myasthenia gravis Acute toxic metabolic metabolic encephalopathy UDS + cocaine/amphetamine/barbiturates Migraine headaches Chronic opioid use Chronic benzodiazepine use Oxycodone 5-10 mg every 6 hours as needed pain Morphine sulfate 2 mg IV every 4 hours as needed breakthrough pain -Started plasma exchange 01/13/18. Received 5 out of 5. Appreciate hematology and neurology input -Mycophenolate Mofetil , IV methylprednisolone bid, Pyridostigmine Lowman 120 mg p.o. 3 times daily -Holding gabapentin 900 mg 3 times daily for neuropathy -Holding sumatriptan inhalation as needed for migraine Holding acetaminophen/butibal/caffeine 325/50/41 tablet every 6 hours as needed migraine headache -Neurology following, plan for cyclosporine trial On chronic oxycodone/acetaminophen 10/325 1 tablet every 6 hours as needed pain On chronic alprazolam 1 mg every 6 hours as needed -Citalopram 40 mg daily initially held in view of concern regarding overdose. Currently on 10 mg daily -Psych has seen 01/19Maurice bowie. Transfer to inpatient psych when clinically stable within the next 24 hours s/p Respiratory arrest secondary to myasthenia crisis Acute hypoxemic and hypercarbic respiratory failure Right lower lobe pneumonia/MRSA -Emergently intubated and placed on full mechanical ventilation PRVC mode on 01/11. Extubated 4/10 -Albuterol/ipratropium aerosols every 6 hours scheduled with albuterol aerosols every 2 hours and as needed, - PT/OT . Severe bradycardia most likely from severe respiratory acidosis-resolved Sinus tachycardia - improved. -Received epinephrine bicarb and calcium Holding Midodrine 5 mg twice daily C. difficile colitis Pantoprazole 40 mg p.o. daily -On p.o. vancomycin 250 mg 4 times daily for C. difficile colitis Leukocytosis-may be 2/2 to steroid vs infectious processes Anemia/normocytic -Continue Ferrous Sulfate 325 mg twice daily/home medication -Monitor CBC daily Right lower lobe pneumonia/MRSA C. difficile colitis, recurrent Severe sepsis-Resolved Continue IV vancomycin, d/c aztreonam. P.o. vancomycin started for positive C. difficile colitis Nasal aspirate negative for influenza A and B neg. Urine for strep pneumo and Legionella antigen negative. DVT GI prophylaxis -SCDs -Enoxaparin 30 mg SQ daily -Pantoprazole Miguel Ángel Solomon MD Jan 28, 2018 19:38
--- NOTE | 2018-01-28 19:38 | HHI.DS ---
Discharge Summary Admission Date Jan 08, 2018 at 23:07 Discharge Date: Jan 29, 2018 Admitting Diagnosis Myasthenia gravis exacerbation, intentional overdose, bradycardia (1) Myasthenia gravis with exacerbation ICD Code: G70.01 - Myasthenia gravis with exacerbation Status: Acute (2) Clostridium difficile colitis ICD Code: A04.7 - Enterocolitis due to Clostridium difficile Status: Acute Procedures See below Brief History - From Admission 42-year-old unfortunate female presenting to the emergency department for evaluation of altered mental status. This is her seventh admission within the last 5 months for the similar symptoms. Per EMS patient's ex- found her in bed yesterday, apparently at that time she was still verbal. When he returned home this afternoon she was not responding, stiff and moaning. H&P is limited due to patient's clinical condition. Her last admission was 2 weeks ago with a diagnosis of myasthenia gravis exacerbation. Per ED documentation report she has been sick with flulike symptoms all week including nausea and vomiting and diarrhea. She has been unable to keep down any of her medications. Every time she eats she has a bowel movement. Per ED reports she also intentionally overdosed with Midodrin. CBC/BMP: 01/26/18 1330 01/27/18 0725 Significant Findings Laboratory Tests Test 01/26/18 06:30 01/26/18 13:30 01/27/18 07:25 Creatinine 0.47 MG/DL (0.50-1.00) White Blood Count 15.9 TH/MM3 (4.0-11.0) Red Blood Count 3.97 MIL/MM3 (4.00-5.30) Hemoglobin 10.7 GM/DL (11.6-15.3) Hematocrit 33.9 % (35.0-46.0) Mean Corpuscular Hemoglobin Concent 31.6 % (32.0-36.0) Red Cell Distribution Width 26.0 % (11.6-17.2) Neutrophils (%) (Auto) 93.5 % (16.0-70.0) Lymphocytes (%) (Auto) 3.4 % (9.0-44.0) Neutrophils # (Auto) 14.8 TH/MM3 (1.8-7.7) Lymphocytes # (Auto) 0.5 TH/MM3 (1.0-4.8) Tear Drop Cells 1+ (NORMAL) Ovalocytes 1+ (NORMAL) Stomatocytes 1+ (NORMAL) PE at Discharge GENERAL: This is a well-nourished, well-developed patient, in no apparent distress. SKIN: No rashes, warm and dry HEAD: Atraumatic. Normocephalic. EYES: Pupils equal round and reactive. Extraocular motions intact. No scleral icterus. ENT: Nose without bleeding, or drainage, Airway patent. NECK: Trachea midline. Supple CARDIOVASCULAR: Regular rate and rhythm without murmurs, gallops, or rubs. RESPIRATORY: Fair air entry bilaterally. No wheezes, rales, or rhonchi. GASTROINTESTINAL: Abdomen soft, non-tender, nondistended. Positive bowel sounds MUSCULOSKELETAL: Extremities without clubbing, cyanosis, or edema. Pedal pulses appreciated NEUROLOGICAL: Awake and alert. Moves all extremity. Normal speech.no focal neurological deficit Hospital Course 42 years old female admitted with acute myasthenic crisis acute metabolic toxic encephalitis, respiratory arrest secondary to MG, hypoxic, hypercapnic respiratory failure, right lower lobe pneumonia with MRSA, severe bradycardia and C. difficile colitis she has a history of cocaine and amphetamine and barbiturate abuse she has a migraine headache, neurology consulted patient, as well as hematology oncology patient started on plasma exchange received 5 sessions, mycophenolate, methylprednisolone, pyridostigmine, neurology recommended cyclosporine however patient had side effects so it was stopped, patient seen by psychiatry recommended transfer to [facility] when patient medically stable. Patient stabilized as far as the myasthenia symptoms she is ready to be discharged and transferred to [facility] [id number] encounter performed with the patient on discharge day, as well as physical exam, summary of hospitalization course and postdischarge plan has been D/W the patient. D/W nurse D/W case reviewer. Discharge medications reviewed and printed and signed, post discharge follow up visit with PCP and other specialist as well as Brief hospital course and discharge summary has been placed. Pt Condition on Discharge: Stable Discharge Disposition: Disc to Psych Care Fac Discharge Time: > 30 minutes Discharge Instructions DIET: Follow Instructions for: Heart Healthy Diet Speech Therapy-Diet Recommends: Pureed, Jenner Thickened Liquids Activities you can perform: Weight Bearing as Astrid New Medications: Enoxaparin Inj (Lovenox Inj) 30 Mg/0.3 Ml Syr 30 MG SQ Q24H for proph, #28 INJECTION Vancomycin Inj (Vancomycin Inj) 500 Mg Inj 250 MG PO QID for c diff, #30 INJECTION Continued Medications: Aspirin (Aspirin) 81 Mg Chew 81 MG CHEW DAILY, TAB 0 Refills Citalopram (Citalopram) 40 Mg Tab 40 MG PO DAILY for Control Depression, #30 TAB 0 Refills Ferrous Sulfate (Ferosul) 325 Mg (65 Mg Iron) Tablet 325 MG PO BID@12,17 for irondef for 30 Days, #60 TAB Gabapentin (Neurontin) 300 Mg Cap 300 MG PO Q8H, #90 CAP Lactobacillus Acidophilus (Lactinex) 1 Chew 1 TAB CHEW DAILY for Nutritional Supplement, #30 TAB 0 Refills Mycophenolate (Cellcept) 500 Mg Tab 500 MG PO BID for Immunosuppression, #60 TAB 0 Refills Pyridostigmine (Mestinon) 60 Mg Tab 120 MG PO TIDAC for Manage Myastenia Gravis, #360 TAB 0 Refills Sumatriptan (Imitrex) 50 Mg Tab 50 MG PO as needed PRN for HEADACHE, #30 TAB 0 Refills If a satisfactory response has not been obtained at 2 hours, a second dose may be administered [[id number] 325-50-40 Mg] () 1 TAB TAB 1 TAB PO Q6H PRN for HEADACHE, #60 Miguel Ángel Solomon MD Jan 28, 2018 19:38
[2018-01-28 20:00] VITALS: BP 123/77; PULSE 77; RESP 18; TEMP 97.3; O2SAT 97
[2018-01-29] MEDS: LORazepam 1 MG TAB PO PRN ×2 (00:26→09:38)
[2018-01-29] MEDS: ENOXAPARIN SODIUM 30 MG/0.3 ML SYRINGE SQ SCH (00:27)
[2018-01-29 00:31] VITALS: BP 135/80; PULSE 80; RESP 18; TEMP 97.5; O2SAT 99
[2018-01-29] MEDS: CHLORHEXIDINE GLUCONATE 2 % 1 PACK (2 CLOTHS) TOP SCH (03:01)
[2018-01-29 05:00] VITALS: BP 125/90; PULSE 90; RESP 18; TEMP 98.2; O2SAT 99
[2018-01-29] MEDS: MYCOPHENOLATE MOFETIL 500 MG TAB PO SCH (06:19)
[2018-01-29] MEDS: RESP: BUDESONIDE 0.5 MG/2 ML NEB NEB SCH (07:42)
[2018-01-29] MEDS: INSULIN ASPART SUPPLEMENTAL SCALE SQ SCH ×2 (08:00→12:00)
[2018-01-29 08:21] VITALS: BP 109/64; PULSE 97; RESP 20; TEMP 98; O2SAT 98
[2018-01-29] MEDS: CITALOPRAM HYDROBROMIDE 20 MG TAB PO SCH (09:00)
[2018-01-29] MEDS: SODIUM CHLORIDE 0.9% FLUSH 10 ML FLUSH IV FLUSH SCH (09:00)
[2018-01-29] MEDS: DOCUSATE SODIUM 50 MG/SENNA 8.6 MG TAB PO SCH (09:00)
[2018-01-29] MEDS: ASPIRIN 81 MG CHEW TAB CHEW SCH (09:13)
[2018-01-29] MEDS: LACTOBACILLUS ACIDOPHILUS TAB PO SCH (09:13)
[2018-01-29] MEDS: VANCOMYCIN 500 MG VIAL (FOR ORAL USE ONLY) PO SCH (09:17)
[2018-01-29] MEDS: PANTOPRAZOLE SOD 40 MG DELAYED RELEASE TAB PO SCH (09:18)
[2018-01-29] MEDS: methylPREDNISolone SOD SUCC 40 MG/1 ML VIAL IV PUSH SCH (09:20)
[2018-01-29] MEDS: PYRIDOSTIGMINE BROMIDE 60 MG TAB PO SCH ×2 (09:37→13:09)
[2018-01-29 11:24] VITALS: BP_SYST 152; BP_SYST 170; BP_DIAS 66; BP_DIAS 85; PULSE 97; RESP 20; TEMP 98; O2SAT 97
[2018-01-29] MEDS: FERROUS SULFATE 325 MG (65 MG ELEMENTAL IRON) TAB PO SCH (13:06)
[2018-01-29 13:57] VITALS: BP 130/89; PULSE 88; RESP 18; TEMP 98.2; O2SAT 97
== END 2018-01-29 15:18 | DRG 917 ==
LOC: NEPC 18:27 → NEDA 23:07 → HIME 01-09 01:25 → N05A 01-24 00:26
PROVIDERS: ADMIT Hospitalist; ATTEND Hospitalist
PROC: 0BH18EZ Insertion of Endotracheal Airway into Trachea, Via Natural or Artificial Opening Endoscopic (ICD-10-PCS; 2018-01-09)
PROC: 5A1935Z Respiratory Ventilation, Less than 24 Consecutive Hours (ICD-10-PCS; 2018-01-09)
PROC: 5A1955Z Respiratory Ventilation, Greater than 96 Consecutive Hours (ICD-10-PCS; 2018-01-11)
PROC: 0BH17EZ Insertion of Endotracheal Airway into Trachea, Via Natural or Artificial Opening (ICD-10-PCS; 2018-01-11)
PROC: 02H633Z Insertion of Infusion Device into Right Atrium, Percutaneous Approach (ICD-10-PCS; 2018-01-13)
PROC: 6A551Z3 Pheresis of Plasma, Multiple (ICD-10-PCS; 2018-01-13)
PROC: 0T9B70Z Drainage of Bladder with Drainage Device, Via Natural or Artificial Opening (ICD-10-PCS; 2018-01-16)
PROC: 30233M1 Transfusion of Nonautologous Plasma Cryoprecipitate into Peripheral Vein, Percutaneous Approach (ICD-10-PCS; principal; 2018-01-22)
DX: T38.892A Poisoning by other hormones and synthetic substitutes, intentional self-harm, initial encounter (principal); G70.01 Myasthenia gravis with (acute) exacerbation; R65.20 Severe sepsis without septic shock; G92 Toxic encephalopathy; J69.0 Pneumonitis due to inhalation of food and vomit; A41.9 Sepsis, unspecified organism; J96.01 Acute respiratory failure with hypoxia; J15.212 Pneumonia due to Methicillin resistant Staphylococcus aureus; J96.02 Acute respiratory failure with hypercapnia; A04.72 Enterocolitis due to Clostridium difficile, not specified as recurrent; E87.0 Hyperosmolality and hypernatremia; E87.2 Acidosis; E83.42 Hypomagnesemia; G62.9 Polyneuropathy, unspecified; F32.9 Major depressive disorder, single episode, unspecified; F41.9 Anxiety disorder, unspecified; G43.909 Migraine, unspecified, not intractable, without status migrainosus; E87.6 Hypokalemia; R00.1 Bradycardia, unspecified; D64.9 Anemia, unspecified; F19.10 Other psychoactive substance abuse, uncomplicated; Z96.641 Presence of right artificial hip joint; T38.0X5A Adverse effect of glucocorticoids and synthetic analogues, initial encounter; E83.39 Other disorders of phosphorus metabolism; E86.0 Dehydration; I10 Essential (primary) hypertension; F13.10 Sedative, hypnotic or anxiolytic abuse, uncomplicated; R00.0 Tachycardia, unspecified; R33.9 Retention of urine, unspecified; Z87.891 Personal history of nicotine dependence; Z79.891 Long term (current) use of opiate analgesic; Z91.19 Patient's noncompliance with other medical treatment and regimen
CPT/HCPCS: 31500; 36430; 36514; 36556; 36600; 71045; 74018; 76937; 80048; 80053; 80069; 80180; 80202; 80307; 81001; 82272; 82550; 82565; 82728; 82805; 82948; 83010; 83540; 83550; 83605; 83615; 83735; 84100; 84132; 84145; 84484; 84702; 85007; 85025; 85027; 85384; 85610; 85730; 86403; 86965; 87040; 87070; 87086; 87147; 87186; 87205; 87449; 87493; 87641; 87804; 93005; 94002; 94003; 94150; 94640; 94664; 94799; 96365; 96366; 96368; 96375; J0171; J0461; J0610; J1325; J1459; J1644; J1650; J1815; J1956; J2060; J2250; J2270; J2310; J2405; J2920; J2930; J3010; J3030; J3370; J3475; J3480; J7030; J7040; J7050; J7060; J7512; J7515; J7517; J7626; P9045; P9612

== ENCOUNTER 2018-01-29 15:36 | Inpatient (IN) | payer MEDICARE, MEDICAID ==
[~2018-01-29 15:36] MED LIST changes: +ASPI-516 CHEW; +ENOX30P SQ; +VANC500I3 PO
[2018-01-29 16:00] VITALS: BP 131/78; PULSE 67; RESP 18; TEMP 96.6
[2018-01-29] MEDS ORDERED: MAGNESIUM HYDROXIDE SUSP 30 ML CUP PO PRN (16:00)
[2018-01-29] MEDS ORDERED: ACETAMINOPHEN 325 MG TAB PO PRN (16:00)
[2018-01-29] MEDS ORDERED: NICOTINE 21 MG/24 HR PATCH T-DERMAL PRN (16:00)
[2018-01-29] MEDS ORDERED: ALUMINUM/MAGNESIUM/SIMETH 30 ML CUP PO PRN (16:00)
[2018-01-29] MEDS: GABAPENTIN 300 MG CAP PO SCH ×2 (18:36→22:00)
[2018-01-29] MEDS: PYRIDOSTIGMINE BROMIDE 60 MG TAB PO SCH (18:36)
[2018-01-29] MEDS: FERROUS SULFATE 325 MG (65 MG ELEMENTAL IRON) TAB PO SCH (18:36)
[2018-01-29] MEDS: MYCOPHENOLATE MOFETIL 500 MG TAB PO SCH (22:01)
[2018-01-30 05:58] VITALS: BP 132/62; PULSE 89; RESP 18; TEMP 98; O2SAT 98
[2018-01-30] MEDS: GABAPENTIN 300 MG CAP PO SCH ×3 (06:00→21:21)
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
--- NOTE | 2018-01-30 08:16 | PD.CONS ---
[facility] Request[facility] By Reason for Consult Medical management Primary Care Physician Unknown Diagnoses: History of Present Illness 42-year-old female with past medical history significant for myasthenia gravis, avascular necrosis of right hip, depression, anxiety, and hypotension who was recently discharged from inpatient hospital to medical psychiatry unit for further mental health evaluation. Patient was admitted recently on 01/08/18 after she was found by her ex- unresponsive at home. There were also reports that patient may have intentionally overdosed on Midrin. She was admitted for acute myasthenia gravis exacerbation with respiratory distress. She was intubated and mechanically ventilated on 01/11 and subsequently extubated on 01/18. During her stay patient also developed right upper lobe pneumonia positive for MRSA and also developed Clostridium difficile colitis. She was treated with vancomycin for MRSA pneumonia and oral vancomycin as well as IV metronidazole for Clostridium difficile colitis. She was seen and evaluated by both neurology and hematology oncology services during her stay. She received a total of 5 sessions of plasmapheresis with improvement of symptoms, also treated with mycophenolate, methylprednisolone, and pyridostigmine. Neurology recommended cyclosporine however patient had side effects so it was stopped. She was cleared for discharge and transfer to medical psychiatry unit, [facility] has been consulted to assist with ongoing medical management. Patient is seen and examined in her room ambulating without assistive devices, appears to be in no acute distress. She reports that she is doing well this morning but has had several episodes of diarrhea overnight and this morning. She reports that she will eat something or drinks something and soon after will have to move her bowels. She denies any nausea, vomiting, belly pain, fevers, chills, cough, shortness of breath, dizziness, lightheadedness, palpitations or chest pain. Patient is concerned over the fact that she only received 1 dose of Solu-Medrol yesterday as she states that she was on 20 mg twice a day IV. She also states that she takes 5 mg of oral prednisone at home. She voices no other acute concerns at this moment. Review of Systems Except as stated in HPI: all other systems reviewed are Neg Past Family Social History Allergies: Coded Allergies: penicillin G (Unverified Allergy, Severe, Anaphylaxis, 01/08/18) promethazine (Unverified Adverse Reaction, Severe, NAUSEOUS, 01/08/18) Past Medical History Myasthenia gravis. Avascular necrosis of the right hip. Depression. Hypotension Past Surgical History Thymus removed Bilateral tubal ligation Left chest port placement Tonsillectomy Reported Medications Reported Meds & Active Scripts Active Neurontin (Gabapentin) 300 Mg Cap 600 Mg PO Q8H Xanax (Alprazolam) 1 Mg Tab 1 Mg PO Q6HR PRN Ferosul (Ferrous Sulfate) 325 Mg (65 Mg Iron) Tablet 325 Mg PO BID@12,17 30 Days Neurontin (Gabapentin) 300 Mg Cap 300 Mg PO Q8H [Wvee-Pbbcy-Rsnx 325-50-40 Mg] 1 TAB Tab 1 Tab PO Q6H PRN Mestinon (Pyridostigmine [place]) 60 Mg Tab 120 Mg PO TIDAC Cellcept (Mycophenolate Mofetil) 500 Mg Tab 500 Mg PO BID Prednisone 5 Mg Tab 5 Mg PO DAILY Citalopram (Citalopram Hydrobromide) 40 Mg Tab 40 Mg PO DAILY Lactinex (Lactobacillus Acidophilus) 1 Chew 1 Tab CHEW DAILY Imitrex (Sumatriptan Succinate) 50 Mg Tab 50 Mg PO NEEDED PRN If a satisfactory response has not been obtained at 2 hours, a second dose may be administered Reported Aspirin 81 Mg Chew 81 Mg CHEW DAILY Midodrine 5 Mg Tab 5 Mg PO BID Percocet (Oxycodone-Acetaminophen) 10-325 mg Tab 1 Tab PO Q6H PRN Xanax (Alprazolam) 1 Mg Tab 1 Mg PO Q8H PRN Active Ordered Medications Current Medications Medications (Trade) Dose Ordered Sig/Gómez Route Start Time Stop Time Status Last Admin (Tylenol) 650 mg Q4H PRN PO 01/29/18 16:00 (Milk Of Magnesia Liq) 30 ml DAILY PRN PO 01/29/18 16:00 (Mag-Al Plus Susp Liq) 30 ml Q6H PRN PO 01/29/18 16:00 (Habitrol 21 Mg Patch.24 Hr) 1 patch DAILY PRN T-DERMAL 01/29/18 16:00 (Aspirin Chew) 81 mg DAILY CHEW 01/30/18 09:00 01/30/18 08:44 (Ferrous Sulfate) 325 mg BID@12,17 PO 01/29/18 17:00 01/29/18 18:36 (Neurontin) 300 mg Q8HR PO 01/29/18 16:15 01/30/18 06:00 (Cellcept) 500 mg BID PO 01/29/18 21:00 01/30/18 08:44 (Mestinon) 120 mg TIDAC PO 01/29/18 17:00 01/30/18 08:44 (Lactinex) 1 tab DAILY PO 01/30/18 09:00 01/30/18 08:44 Miscellaneous Information 1 DAILY T-DERMAL 01/30/18 09:00 (Roxicodone) 5 mg Q6H PRN PO 01/29/18 18:00 01/30/18 04:50 (Remeron) 15 mg HS PO 01/30/18 21:00 (Ativan) 1 mg Q6H PRN PO 01/30/18 09:00 01/30/18 09:40 (Ativan Inj) 1 mg Q6H PRN IM 01/30/18 09:00 (Melatonin) 5 mg HS PRN PO 01/30/18 09:00 (SoluMEDROL INJ) 10 mg BID IM 01/30/18 09:00 02/02/18 08:59 Family History Father: Diabetes Social History Tobacco: Former smoker (smoked half a pack per day 20 years) Alcohol: Denies Illicit drug use: Denies Physical Exam Vital Signs Vital Signs Date Time Temp Pulse Resp B/P (MAP) Pulse Ox O2 Delivery O2 Flow Rate FiO2 01/30/18 05:58 98.0 89 18 132/62 (85) 98 01/30/18 05:50 20 01/29/18 16:00 96.6 67 18 131/78 (95) Physical Exam GENERAL: This is a well-nourished, well-developed patient, in no apparent distress. SKIN: No rashes, ecchymoses or lesions. Cool and dry. Left upper chest port noted. HEAD: Atraumatic. Normocephalic. EYES: Pupils equal round and reactive. Extraocular motions intact. No scleral icterus. No injection or drainage. ENT: Nose without bleeding, purulent drainage. Throat without erythema. Airway patent. NECK: Trachea midline. No JVD. CARDIOVASCULAR: Regular rate and rhythm without murmurs, gallops, or rubs. RESPIRATORY: Clear to auscultation. Breath sounds equal bilaterally. No wheezes , rales, or rhonchi. GASTROINTESTINAL: Abdomen soft, non-tender, nondistended. Normoactive bowel sounds. No guarding. MUSCULOSKELETAL: Extremities without clubbing, cyanosis, or edema. No joint tenderness, effusion, or edema noted. No calf tenderness. NEUROLOGICAL: Awake and alert. Cranial nerves II through XII grossly intact. Motor and sensory grossly within normal limits. Five out of 5 muscle strength in all muscle groups. Normal speech. Assessment and Plan Assessment and Plan 42-year-old female with past medical history significant for myasthenia gravis, avascular necrosis of right hip, depression, anxiety, and hypotension who was recently discharged from inpatient hospital to medical psychiatry unit for further mental health evaluation. Patient was admitted recently on 01/08/18 after she was found by her ex- unresponsive at home. There were also reports that patient may have intentionally overdosed on Midrin. She was admitted for acute myasthenia gravis exacerbation with respiratory distress. She was intubated and mechanically ventilated on 01/11 and subsequently extubated on 01/18. During her stay patient also developed right upper lobe pneumonia positive for MRSA and also developed Clostridium difficile colitis. She was treated with vancomycin for MRSA pneumonia and oral vancomycin as well as IV metronidazole for Clostridium difficile colitis. She was seen and evaluated by both neurology and hematology oncology services during her stay. She received a total of 5 sessions of plasmapheresis with improvement of symptoms, also treated with mycophenolate, methylprednisolone, and pyridostigmine. Neurology recommended cyclosporine however patient had side effects so it was stopped. She was cleared for discharge and transfer to medical psychiatry unit, [facility] has been consulted to assist with ongoing medical management. Myasthenia gravis crisis, resolved Metabolic encephalopathy, resolved -Seen and evaluated by neurology as well as hematology oncology while inpatient. - s/p 5 sessions of plasmapheresis with improvement of symptoms. Treated with CellCept, Mestinon, and methylprednisolone. -She did have a trial of cyclosporine as recommended by neurology however experience tingling and pain in lower legs therefore this was discontinued. -She is now admitted to medical psychiatry unit. Continue CellCept and Mestinon. Insistent over the fact that she is no longer having IV steroids. -We will provide Solu-Medrol 10 mg twice daily 3 days and then transition over to 5 mg twice daily p.o. of oral prednisone which she is on at home. -Neurology service is consulted by psychiatrist to follow patient while she is in medical psychiatry unit. Respiratory distress, resolved Right lower lobe pneumonia/MRSA -Completed course of IV vancomycin, oxygen saturation 98% on room air -Afebrile, leukocytosis noted on lab work from 01/26 likely due to steroid use. -ID consulted by psychiatry to continue follow-up while she is here in medical psychiatry unit. Clostridium difficile colitis - s/p treatment with oral vancomycin as well as IV metronidazole. Prior to discharge patient with normal stools, however now experiencing diarrhea. -Check stool for C. difficile once again, special contact precautions in place. ID has been consulted by primary team. Chronic pain -Review of chart, patient's pain medication was being weaned. Resumed Roxicodone only at 5 mg every 6 hours as needed. DVT prophylaxis-ambulation Discussed with patient, and nursing staff. Thank you for this consultation, will continue to follow along. Tina Osman Jan 30, 2018 08:16
[2018-01-30] MEDS: REMOVE OLD NICOTINE PATCH T-DERMAL SCH (08:44)
[2018-01-30] MEDS: PYRIDOSTIGMINE BROMIDE 60 MG TAB PO SCH ×3 (08:44→16:55)
[2018-01-30] MEDS: LACTOBACILLUS ACIDOPHILUS TAB PO SCH (08:44)
[2018-01-30] MEDS: MYCOPHENOLATE MOFETIL 500 MG TAB PO SCH ×2 (08:44→21:21)
[2018-01-30] MEDS: ASPIRIN 81 MG CHEW TAB CHEW SCH (08:44)
[2018-01-30] MEDS ORDERED: methylPREDNISolone SOD SUCC 40 MG/1 ML VIAL IM SCH (09:00)
[2018-01-30] MEDS ORDERED: LORazepam 2 MG/ML VIAL IM PRN (09:00)
[2018-01-30] MEDS ORDERED: CITALOPRAM HYDROBROMIDE 40 MG TAB PO SCH (09:00)
[2018-01-30] MEDS: LORazepam 1 MG TAB PO PRN ×3 (09:40→21:21)
[2018-01-30] MEDS ORDERED: SUMAtriptan SUCCINATE 25 MG TAB PO PRN (11:00)
[2018-01-30 11:09] LABS: AUTOMATED NEUTROPHIL # 9.2 TH/MM3 (1.8-7.7); BASOPHIL # 0.1 TH/MM3 (0-0.2); BASOPHIL % 0.6 % (0.0-2.0); EOSINOPHIL # 0.1 TH/MM3 (0-0.4); EOSINOPHIL % 1.1 % (0.0-4.0); HEMATOCRIT 37.1 % (35.0-46.0); HEMOGLOBIN 11.8 GM/DL (11.6-15.3); LYMPH % 20.8 % (9.0-44.0); LYMPHOCYTE # 2.7 TH/MM3 (1.0-4.8); MEAN CELL VOLUME 85.6 FL (80.0-100.0); MEAN CORPUSCULAR HEMOGLOBIN 27.3 PG (27.0-34.0); MEAN CORPUSCULAR HGB CONC 31.9 % (32.0-36.0); MEAN PLATELET VOLUME 7.7 FL (7.0-11.0); MONO % 6.2 % (0.0-8.0); MONOCYTE # 0.8 TH/MM3 (0-0.9); NEUT % 71.3 % (16.0-70.0); PLATELET COUNT 507 TH/MM3 (150-450); RED BLOOD COUNT 4.33 MIL/MM3 (4.00-5.30); RED CELL DISTRIBUTION WIDTH 27.1 % (11.6-17.2); WHITE BLOOD COUNT 12.9 TH/MM3 (4.0-11.0)
[2018-01-30 11:33] LABS: LYMPHOCYTES 20 % (9-44); METAMYELOCYTES 1 % (0-1); MONOCYTES 11 % (0-8); NEUTROPHIL # MANUAL DIFF 8.8 TH/MM3 (1.8-7.7); POLYS (SEG NEUTROPHILS) 67 % (16-70)
[2018-01-30 11:34] LABS: TEARDROP RBCS 1+ (NORMAL)
[2018-01-30 11:49] LABS: AST (GOT) 22 U/L (15-37); BICARBONATE 33.8 MEQ/L (21.0-32.0); BLOOD UREA NITROGEN 17 MG/DL (7-18); CHLORIDE 98 MEQ/L (98-107); CREATININE 0.44 MG/DL (0.50-1.00); GLOMERULAR FILTRATION RATE 158 ML/MIN (>89); GLUCOSE,RANDOM 68 MG/DL (74-106); SODIUM (NA) 137 MEQ/L (136-145)
[2018-01-30 11:50] LABS: ALT (GPT) 50 U/L (10-53); CHOLESTEROL 351 MG/DL (120-200); TRIGLYCERIDES 369 MG/DL (42-150)
[2018-01-30 11:52] LABS: ALKALINE PHOSPHATASE 43 U/L (45-117); CHOLESTEROL/ HDL RATIO 6.97 RATIO; HDL CHOLESTEROL 50.3 MG/DL (40.0-60.0); LDL CHOLESTEROL 227 MG/DL (0-99); TOTAL BILIRUBIN ADULT 0.5 MG/DL (0.2-1.0); TOTAL PROTEIN 7.1 GM/DL (6.4-8.2)
[2018-01-30] MEDS: FERROUS SULFATE 325 MG (65 MG ELEMENTAL IRON) TAB PO SCH ×2 (12:29→16:55)
--- NOTE | 2018-01-30 13:06 | PD.CONS ---
History of Present Illness Service Infectious Disease Consult Requested By Dr Mckoy Reason for Consult Follow up for C diff colitis Primary Care Physician Unknown Diagnoses: History of Present Illness Patient seen and examined. Records reviewed. Patient is a 42-year-old female, initially admitted to the hospital January 08 for flareup of her myasthenia. She had a complicated hospitalization, and was intubated at one point and almost had impending cardiopulmonary arrest and severe bradycardia. She was treated for her myasthenia gravis gravis. She also stabilized as far as her respiratory status and has tolerated extubation. During that hospitalization she was also diagnosed to have MRSA in the sputum, as well as C. difficile colitis. She completed a treatment for the MRSA, and also recently completed treatment for her C. difficile colitis. She was seen by ID on January 27, and during that time she was improving as far as the diarrhea and her treatment was stopped January 29. Patient was discharge from the hospital and admitted in the psychiatric unit. The psychiatrist requested ID follow-up as far as her C. difficile colitis. Patient stated that she started having worsening of first diarrhea today and every time she drinks or eats anything she would have a bowel movement. She has some mild abdominal discomfort. She is somewhat afraid to eat because she would get diarrhea immediately. Stool for C. difficile was sent today and that is negative. Her WBC is improving. Infectious disease consultation has been requested to assist with management of her diarrhea. Review of Systems Constitutional: DENIES: Fever, Chills, Night Sweats Eyes: DENIES: Eye pain Ears, nose, mouth, throat: DENIES: Oral lesions, Throat pain, Ear Pain, Running Nose, Sinus Pain Respiratory: DENIES: Cough, Shortness of breath Cardiovascular: DENIES: Chest pain, Palpitations, Dyspnea on Exertion Gastrointestinal: COMPLAINS OF: Abdominal pain, Diarrhea, DENIES: Nausea, Vomiting, Difficulty Swallowing Genitourinary: DENIES: Urgency, Dysuria Musculoskeletal: DENIES: Muscle aches Integumentary: DENIES: Rash, Nipple discharge Hematologic/lymphatic: DENIES: Lymphadenopathy Neurologic: DENIES: Headache, Localized weakness Psychiatric: COMPLAINS OF: Depression, DENIES: Hallucinations Past Family Social History Allergies: Coded Allergies: penicillin G (Unverified Allergy, Severe, Anaphylaxis, 01/08/18) promethazine (Unverified Adverse Reaction, Severe, NAUSEOUS, 01/08/18) Past Medical History Myasthenia gravis. Avascular necrosis of the right hip. Depression. Hypotension Past Surgical History Thymus removed Bilateral tubal ligation Left chest port placement Tonsillectomy Active Ordered Medications Current Medications Medications (Trade) Dose Ordered Sig/Gómez Route Start Time Stop Time Status Last Admin (Tylenol) 650 mg Q4H PRN PO 01/29/18 16:00 (Milk Of Magnesia Liq) 30 ml DAILY PRN PO 01/29/18 16:00 (Mag-Al Plus Susp Liq) 30 ml Q6H PRN PO 01/29/18 16:00 (Habitrol 21 Mg Patch.24 Hr) 1 patch DAILY PRN T-DERMAL 01/29/18 16:00 (Aspirin Chew) 81 mg DAILY CHEW 01/30/18 09:00 01/30/18 08:44 (Ferrous Sulfate) 325 mg BID@12,17 PO 01/29/18 17:00 01/30/18 12:29 (Neurontin) 300 mg Q8HR PO 01/29/18 16:15 01/30/18 06:00 (Cellcept) 500 mg BID PO 01/29/18 21:00 01/30/18 08:44 (Mestinon) 120 mg TIDAC PO 01/29/18 17:00 01/30/18 12:29 (Lactinex) 1 tab DAILY PO 01/30/18 09:00 01/30/18 08:44 Miscellaneous Information 1 DAILY T-DERMAL 01/30/18 09:00 (Roxicodone) 5 mg Q6H PRN PO 01/29/18 18:00 01/30/18 10:43 (Remeron) 15 mg HS PO 01/30/18 21:00 (Ativan) 1 mg Q6H PRN PO 01/30/18 09:00 01/30/18 09:40 (Ativan Inj) 1 mg Q6H PRN IM 01/30/18 09:00 (Melatonin) 5 mg HS PRN PO 01/30/18 09:00 (SoluMEDROL INJ) 10 mg BID IV PUSH 01/30/18 21:00 (Imitrex) 25 mg Q6HR PRN PO 01/30/18 11:00 Family History Diabetes Social History Tobacco: Former smoker (smoked half a pack per day 20 years) Alcohol: Denies Illicit drug use: Denies Physical Exam Vital Signs Vital Signs Date Time Temp Pulse Resp B/P (MAP) Pulse Ox O2 Delivery O2 Flow Rate FiO2 01/30/18 05:58 98.0 89 18 132/62 (85) 98 01/30/18 05:50 20 01/29/18 16:00 96.6 67 18 131/78 (95) Physical Exam GENERAL: Patient is a well-nourished, well-developed female, awake and alert , not in respiratory distress. SKIN: Cool and dry. No generalized rash, no ecchymoses and no evidence of embolic lesions. HEAD: Atraumatic. Normocephalic. No temporal wasting, or tenderness. EYES: Nash conjunctiva. No petechia or hemorrhage. Pupils equal, round and reactive to light. Extraocular movements full and intact. No scleral icterus. No injection or drainage. EARS, NOSE AND THROAT: Nose without bleeding or purulent nasal discharge. No sinus tenderness. Mucous membranes pink and moist. No oral lesions noted. No exudate. No oral thrush. NECK: Trachea midline. Supple and not tender, no meningeal signs CARDIOVASCULAR: Regular rate and rhythm. No murmurs, rubs or gallops heard RESPIRATORY: Clear to auscultation. Breath sounds equal bilaterally. No rales , wheezing or rhonchi ABDOMEN: Soft, non-tender, mildly distended. Bowel sounds present and normoactive. No guarding. No rebound. No organomegaly. EXTREMITIES: No clubbing, cyanosis, or edema.No joint effusion, has good ROM. No calf tenderness. Well perfused and warm. NEUROLOGICAL: Awake and alert. Cranial nerves grossly intact. Motor grossly within normal limits. PSYCHIATRIC: Normal affect, calm and cooperative. LINE: No evidence of infection Laboratory Laboratory Tests Test 01/30/18 10:30 01/30/18 10:50 White Blood Count 12.9 Red Blood Count 4.33 Hemoglobin 11.8 Hematocrit 37.1 Mean Corpuscular Volume 85.6 Mean Corpuscular Hemoglobin 27.3 Mean Corpuscular Hemoglobin Concent 31.9 Red Cell Distribution Width 27.1 Platelet Count 507 Mean Platelet Volume 7.7 Neutrophils (%) (Auto) 71.3 Lymphocytes (%) (Auto) 20.8 Monocytes (%) (Auto) 6.2 Eosinophils (%) (Auto) 1.1 Basophils (%) (Auto) 0.6 Neutrophils # (Auto) 9.2 Lymphocytes # (Auto) 2.7 Monocytes # (Auto) 0.8 Eosinophils # (Auto) 0.1 Basophils # (Auto) 0.1 CBC Comment AUTO DIFF Differential Total Cells Counted 100 Neutrophils % (Manual) 67 Lymphocytes % 20 Monocytes % 11 Eosinophils % 1 Neutrophils # (Manual) 8.8 Metamyelocytes 1 Differential Comment FINAL DIFF MANUAL Platelet Estimate HIGH Platelet Morphology Comment NORMAL Tear Drop Cells 1+ Blood Urea Nitrogen 17 Creatinine 0.44 Random Glucose 68 Total Protein 7.1 Albumin 4.0 Calcium Level 9.0 Alkaline Phosphatase 43 Aspartate Amino Transf (AST/SGOT) 22 Alanine Aminotransferase (ALT/SGPT) 50 Total Bilirubin 0.5 Sodium Level 137 Potassium Level 3.9 Chloride Level 98 Carbon Dioxide Level 33.8 Anion Gap 5 Estimat Glomerular Filtration Rate 158 Triglycerides Level 369 Cholesterol Level 351 LDL Cholesterol 227 HDL Cholesterol 50.3 Cholesterol/HDL Ratio 6.97 Stool C. difficile Toxin (PCR) NEGATIVE Stl C. difficile Toxin Epiderm 027 PRESUMPTIVE NEGATIVE Result Diagram: 01/30/18 1030 01/30/18 1030 Assessment and Plan Assessment and Plan IMPRESSION Recurrent diarrhea, S/P Rx C diff colitis - repeat C diff toxin negative - ?due to increased oral intake S/P RX MRSA in sputum Myasthenia gravis Depression RECOMMENDATION Try Asacol to help with diarrhea If not better, repeat C diff testing Follow #of stool Monitor clinical progress I will follow along with you Thank you for this consultation Discussed Condition With Explained plan to the patient María Elena Ruiz MD Jan 30, 2018 13:06
[2018-01-30] MEDS: MESALAMINE HD 800 MG DELAYED RELEASE TAB PO SCH ×3 (14:28→22:00)
[2018-01-30 17:25] VITALS: BP 136/59; PULSE 103; RESP 18; TEMP 97.8; O2SAT 98
[2018-01-30] MEDS: MELATONIN 5 MG TAB PO PRN (21:21)
[2018-01-30] MEDS: MIRTAZAPINE 15 MG TAB PO SCH (21:21)
[2018-01-30] MEDS: methylPREDNISolone SOD SUCC 40 MG/1 ML VIAL IV PUSH SCH (21:21)
[2018-01-31] MEDS: MESALAMINE HD 800 MG DELAYED RELEASE TAB PO SCH ×3 (05:36→21:22)
[2018-01-31] MEDS: LORazepam 1 MG TAB PO PRN ×2 (05:36→11:56)
[2018-01-31] MEDS: GABAPENTIN 300 MG CAP PO SCH ×3 (05:37→21:19)
[2018-01-31 06:25] VITALS: BP 121/75; PULSE 114; RESP 17; TEMP 98.2
--- NOTE | 2018-01-31 08:23 | HHI.PR ---
Subjective Remarks Follow-up visit for myasthenia gravis, pneumonia, C. difficile, and chronic pain. Patient is seen and examined in her room sitting up in bed, appears to be in no acute distress. His called nurse this morning asking for pain medication. Patient reports that her diarrhea has resolved and denies any nausea, or abdominal pain. She denies any fevers, chills, cough, shortness of breath, dizziness or lightheadedness. She does report a headache but states that she only received a one-time dose of medication. Discussed with patient that she can have a repeat dose if needed, will also increase her to 50 mg which she was taking while inpatient. Spoke with nurse who voices no other acute concerns today or overnight. Objective Vitals Vital Signs Date Time Temp Pulse Resp B/P (MAP) Pulse Ox O2 Delivery O2 Flow Rate FiO2 01/31/18 06:25 98.2 114 17 121/75 (90) 01/31/18 03:29 20 01/30/18 17:25 97.8 103 18 136/59 (84) 98 I/O 01/30/18 01/30/18 01/30/18 01/31/18 01/31/18 01/31/18 07:00 15:00 23:00 07:00 15:00 23:00 Intake Total 600 ml 240 ml Balance 600 ml 240 ml Intake Oral 600 ml 240 ml Result Diagram: 01/30/18 1030 01/30/18 1030 Objective Remarks GENERAL: This is a well-nourished, well-developed patient, in no apparent distress. SKIN: Cool and dry. Left upper chest port noted. HEAD: Atraumatic. Normocephalic. EYES: Pupils equal round and reactive. No scleral icterus. No injection or drainage. ENT: Nose without bleeding, purulent drainage. Airway patent. NECK: Trachea midline. CARDIOVASCULAR: Regular rate and rhythm without murmurs, gallops, or rubs. RESPIRATORY: Clear to auscultation. Breath sounds equal bilaterally. No wheezes , rales, or rhonchi. GASTROINTESTINAL: Abdomen soft, non-tender, nondistended. Normoactive bowel sounds. No guarding. MUSCULOSKELETAL: Extremities without clubbing, cyanosis, or edema. No joint tenderness, effusion, or edema noted. NEUROLOGICAL: Awake and alert. Cranial nerves II through XII grossly intact. Motor and sensory grossly within normal limits. Five out of 5 muscle strength in all muscle groups. Normal speech. A/P Assessment and Plan 42-year-old female with past medical history significant for myasthenia gravis, avascular necrosis of right hip, depression, anxiety, and hypotension who was recently discharged from inpatient hospital to medical psychiatry unit for further mental health evaluation. Patient was admitted recently on 01/08/18 after she was found by her ex- unresponsive at home. There were also reports that patient may have intentionally overdosed on Midrin. She was admitted for acute myasthenia gravis exacerbation with respiratory distress. She was intubated and mechanically ventilated on 01/11 and subsequently extubated on 01/18. During her stay patient also developed right upper lobe pneumonia positive for MRSA and also developed Clostridium difficile colitis. She was treated with vancomycin for MRSA pneumonia and oral vancomycin as well as IV metronidazole for Clostridium difficile colitis. She was seen and evaluated by both neurology and hematology oncology services during her stay. She received a total of 5 sessions of plasmapheresis with improvement of symptoms, also treated with mycophenolate, methylprednisolone, and pyridostigmine. Neurology recommended cyclosporine however patient had side effects so it was stopped. She was cleared for discharge and transfer to medical psychiatry unit, [facility] has been consulted to assist with ongoing medical management. Myasthenia gravis crisis, resolved Metabolic encephalopathy, resolved -Seen and evaluated by neurology as well as hematology oncology while inpatient. - s/p 5 sessions of plasmapheresis with improvement of symptoms. Treated with CellCept, Mestinon, and methylprednisolone. -She did have a trial of cyclosporine as recommended by neurology however experience tingling and pain in lower legs therefore this was discontinued. -She is now admitted to medical psychiatry unit. Continue CellCept and Mestinon. Insistent over the fact that she is no longer having IV steroids. -We will provide Solu-Medrol 10 mg twice daily 3 days and then transition over to 5 mg twice daily p.o. of oral prednisone which she is on at home. -Neurology service is consulted by psychiatrist to follow patient while she is in medical psychiatry unit. Respiratory distress, resolved Right lower lobe pneumonia/MRSA -Completed course of IV vancomycin, oxygen saturation 98% on room air -Afebrile, leukocytosis noted on lab work from 01/26 likely due to steroid use. -ID consulted by psychiatry to continue follow-up while she is here in medical psychiatry unit. Clostridium difficile colitis, treated - s/p treatment with oral vancomycin as well as IV metronidazole. Prior to discharge patient with normal stools, however recent complaints of diarrhea -Stool negative for C. difficile, ID has been consulted by primary team. -Mesalamine added, reports diarrhea has resolved. Chronic pain -Review of chart, patient's pain medication was being weaned. Roxicodone 5 mg every 6 hours as needed. -Consider decreasing frequency to every 8 hours tomorrow or in the following days DVT prophylaxis-ambulation Discussed with patient, and nursing staff. Tina Osman Jan 31, 2018 08:23
[2018-01-31] MEDS: PYRIDOSTIGMINE BROMIDE 60 MG TAB PO SCH ×3 (08:51→17:17)
[2018-01-31] MEDS: ASPIRIN 81 MG CHEW TAB CHEW SCH (08:51)
[2018-01-31] MEDS: methylPREDNISolone SOD SUCC 40 MG/1 ML VIAL IV PUSH SCH (08:52)
[2018-01-31] MEDS: MYCOPHENOLATE MOFETIL 500 MG TAB PO SCH ×2 (08:52→21:18)
[2018-01-31] MEDS: LACTOBACILLUS ACIDOPHILUS TAB PO SCH (08:52)
[2018-01-31] MEDS: REMOVE OLD NICOTINE PATCH T-DERMAL SCH (08:52)
[2018-01-31] MEDS: FERROUS SULFATE 325 MG (65 MG ELEMENTAL IRON) TAB PO SCH ×2 (11:56→17:17)
[2018-01-31] MEDS: SUMAtriptan SUCCINATE 25 MG TAB PO PRN (13:35)
--- NOTE | 2018-01-31 14:11 | HHI.IDPN ---
Note Infectious Disease Note ID follow-up. Patient was previously seen for diarrhea. She had positive C. difficile toxin. She was transferred to psychiatric medical floor. Reconsultation was requested. Continues to have watery stools. She reports that every time she eats she has to go to the bathroom. She reports that the stools are greenish color. She denies abdominal pain or cramping. No fever. She is on immunosuppressive medicines for myasthenia gravis. He denies chills. Patient reports that she has had diarrhea for a long time. 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 48-year-old white female who was admitted to the hospital on 01/08/2018 with flare-up of myasthenia gravis. The patient has been treated in the hospital for the myasthenia. She was recently intubated because of bradycardia and respiratory distress. The patient was unresponsive on 01/11/2018 and she had severe bradycardia and impending cardiopulmonary arrest. The patient had positive sputum culture with MRSA recovered on 01/12/2018 and she completed a course of vancomycin IV. She is also received a course of oral vancomycin for Clostridium difficile colitis, which was diagnosed on 2017. The diarrhea subsided some degree the vancomycin was stopped. The stools had become becoming more formed and was no longer watery. PAST MEDICAL AND SURGICAL HISTORY: Myasthenia gravis diagnosed 8 years ago. The patient has had multiple flare-ups. Depression, hypertension, avascular necrosis of the right hip, right hip replacement, thymus removal, bilateral tubal ligation, tonsillectomy, Infusaport placement into the left chest. ALLERGIES: PENICILLIN G, PROMETHAZINE. MEDICATIONS: Methylprednisolone, Celexa, CellCept, Protonix, vancomycin intravenous, vancomycin oral, oxycodone 5 mg q.6 hours p.r.n., morphine sulfate p.r.n., ferrous sulfate, aspirin, Lactinex, Bonita-Colace, Mestinon, Trandate. SOCIAL HISTORY: The patient denies tobacco use. She denies alcohol use. She denies IV drug use. REVIEW OF SYSTEMS: Significant for diarrhea. Current Medications Medications (Trade) Dose Ordered Sig/Gómez Route PRN Reason Start Time Stop Time Status Last Admin Dose Admin Acetaminophen (Tylenol) 650 mg Q4H PRN PO Pain 1-5 or Temp >101F 01/29/18 16:00 Magnesium Hydroxide (Milk Of Magnesia Liq) 30 ml DAILY PRN PO CONSTIPATION 01/29/18 16:00 Al Hydrox/Mg Hydrox/Simethicone (Mag-Al Plus Susp Liq) 30 ml Q6H PRN PO DYSPEPSIA 01/29/18 16:00 Nicotine (Habitrol 21 Mg Patch.24 Hr) 1 patch DAILY PRN T-DERMAL Nicotine craving 01/29/18 16:00 Aspirin (Aspirin Chew) 81 mg DAILY CHEW 01/30/18 09:00 01/31/18 08:51 Ferrous Sulfate (Ferrous Sulfate) 325 mg BID@12,17 PO 01/29/18 17:00 01/31/18 11:56 Gabapentin (Neurontin) 300 mg Q8HR PO 01/29/18 16:15 01/31/18 13:33 Mycophenolate Mofetil (Cellcept) 500 mg BID PO 01/29/18 21:00 01/31/18 08:52 Pyridostigmine [place] (Mestinon) 120 mg TIDAC PO 01/29/18 17:00 01/31/18 11:56 Lactobacillus Acidophilus (Lactinex) 1 tab DAILY PO 01/30/18 09:00 01/31/18 08:52 Miscellaneous Information 1 DAILY T-DERMAL 01/30/18 09:00 Oxycodone HCl (Roxicodone) 5 mg Q6H PRN PO PAIN SCALE 5 TO 10 01/29/18 18:00 01/31/18 09:01 Mirtazapine (Remeron) 15 mg HS PO 01/30/18 21:00 01/30/18 21:21 Lorazepam (Ativan) 1 mg Q6H PRN PO Anxiety 01/30/18 09:00 01/31/18 11:56 Lorazepam (Ativan Inj) 1 mg Q6H PRN IM Anxiety, unable to take PO 01/30/18 09:00 Melatonin (Melatonin) 5 mg HS PRN PO INSOMNIA 01/30/18 09:00 01/30/18 21:21 Methylprednisolone Sodium Succinate (SoluMEDROL INJ) 10 mg BID IV PUSH 01/30/18 21:00 02/02/18 20:59 01/31/18 08:52 Mesalamine (Asacol Hd Dr) 1,600 mg Q8HR PO 01/30/18 14:00 02/06/18 13:59 01/31/18 13:33 Sumatriptan Succinate (Imitrex) 50 mg Q6HR PRN PO HEADACHE 01/31/18 09:15 01/31/18 13:35 Objective: Vital Signs Date Time Temp Pulse Resp B/P (MAP) Pulse Ox O2 Delivery O2 Flow Rate FiO2 01/31/18 10:06 16 01/31/18 06:25 98.2 114 17 121/75 (90) 01/30/18 17:25 97.8 103 18 136/59 (84) 98 Laboratory Tests Test 01/30/18 10:30 White Blood Count 12.9 TH/MM3 Red Blood Count 4.33 MIL/MM3 Hemoglobin 11.8 GM/DL Hematocrit 37.1 % Mean Corpuscular Volume 85.6 FL Mean Corpuscular Hemoglobin 27.3 PG Mean Corpuscular Hemoglobin Concent 31.9 % Red Cell Distribution Width 27.1 % Platelet Count 507 TH/MM3 Mean Platelet Volume 7.7 FL Neutrophils (%) (Auto) 71.3 % Lymphocytes (%) (Auto) 20.8 % Monocytes (%) (Auto) 6.2 % Eosinophils (%) (Auto) 1.1 % Basophils (%) (Auto) 0.6 % Neutrophils # (Auto) 9.2 TH/MM3 Lymphocytes # (Auto) 2.7 TH/MM3 Monocytes # (Auto) 0.8 TH/MM3 Eosinophils # (Auto) 0.1 TH/MM3 Basophils # (Auto) 0.1 TH/MM3 CBC Comment AUTO DIFF Differential Total Cells Counted 100 Neutrophils % (Manual) 67 % Lymphocytes % 20 % Monocytes % 11 % Eosinophils % 1 % Neutrophils # (Manual) 8.8 TH/MM3 Metamyelocytes 1 % Differential Comment FINAL DIFF MANUAL Platelet Estimate HIGH Platelet Morphology Comment NORMAL Tear Drop Cells 1+ Laboratory Tests Test 01/30/18 10:30 Blood Urea Nitrogen 17 MG/DL Creatinine 0.44 MG/DL Random Glucose 68 MG/DL Total Protein 7.1 GM/DL Albumin 4.0 GM/DL Calcium Level 9.0 MG/DL Alkaline Phosphatase 43 U/L Aspartate Amino Transf (AST/SGOT) 22 U/L Alanine Aminotransferase (ALT/SGPT) 50 U/L Total Bilirubin 0.5 MG/DL Sodium Level 137 MEQ/L Potassium Level 3.9 MEQ/L Chloride Level 98 MEQ/L Carbon Dioxide Level 33.8 MEQ/L Anion Gap 5 MEQ/L Estimat Glomerular Filtration Rate 158 ML/MIN Triglycerides Level 369 MG/DL Cholesterol Level 351 MG/DL LDL Cholesterol 227 MG/DL HDL Cholesterol 50.3 MG/DL Cholesterol/HDL Ratio 6.97 RATIO PHYSICAL EXAMINATION:. GENERAL: No acute distress. She is awake, alert and oriented. HEENT: Head is atraumatic. Extraocular movements grossly intact. Pupils reactive to light. No icterus. Oropharynx moist mucosa. No visible lesions. No thrush. NECK: Supple no adenopathy or swelling. LUNGS: Clear breath sounds HEART: Regular S1 and S2, without murmurs, rubs or gallops. CHEST: Left chest has an Infusaport in place which appears intact. EXTREMITIES: No clubbing, cyanosis or edema. SKIN: No diffuse rash. NEUROLOGIC: Nonfocal. PSYCHIATRIC: The patient is calm and cooperative. IMPRESSION: 1. Intractable diarrhea. Patient status post treatment for C. difficile colitis. Repeat C. difficile toxin negative. Patient has had diarrhea for a long time. 2. Recent pneumonia due to methicillin-resistant Staphylococcus aureus - treated. No cough or sputum production. 3. Myasthenia gravis. 4. Leukocytosis secondary to steroids. RECOMMENDATIONS: 1. Gastroenterology evaluation. It appears that her diarrhea is likely not due to C. difficile. 2. Continue the Lactinex. Bjorn Paiz MD Jan 31, 2018 14:11
--- NOTE | 2018-01-31 16:26 | PD.CONS ---
HPI History of Present Illness This is a 42 year old female who was admitted to the hospital on 01/29/2018 to the psych unit. Patient has been having symptoms of uncontrolled diarrhea and gastroenterology was consulted to assist with her care. According to the patient she has had loose diarrhea uncontrolled stools for 2 years. She states that her stools are always loose and she has as many as 10 a day. She describes them as watery brown and sometimes green diarrhea , timing is after she eats or drinks anything. Patient does note 8-10 pound weight loss over the past month , and states that her weight has fluctuated over the past 2 years. Patient denies any constipation , no recent fevers, no nausea, vomiting, dysphagia, , obvious upper or lower GI bleeding except for an occasional bloody smear when wiping after her multiple BMs. Patient notes no previous EGD or colonoscopy . Denies any colon cancer in her family. Patient was recently admitted to acute care on 01/08/2018 when found at home unresponsive per her , possible overdose. During that hospital stay patient was also treated for C. difficile colitis and upper lobe MRSA pneumonia. Patient was given vancomycin and Flagyl which seemed to control some of her diarrhea but is soon as the medicines were complete patient went back to have been up to 10 stools a day. Patient has a history of myasthenia gravis and has been on CellCept for approximately 2 years, but patient does not remember whether diarrhea started after the CellCept or before. Patient tested C. difficile negative on 01/30/2018. She is currently trying to eat a heart healthy diet, and is currently on low-dose IV steroids, probiotics, and ferritin. Patient does note a history of some cocaine usage approximately a month ago and marijuana usage a couple of weeks ago. Abdominal x-rays done on 01/14/2018 showed no dilated loops. On my exam patient's abdomen appeared to be mildly bloated, bowel sounds were hyperactive, and patient has some mild diffuse soreness noted. Patient was placed on Asacol 1600 mg every 8 hours by mouth on 01/30/2018 but so far met has not been effective according to patient. (Laury Ibarra) PFSH Past Medical History Myasthenia gravis Avascular necrosis of the right hip Depression Hypertension Recent cocaine and marijuana usage Recent treatment for C. difficile colitis Past Surgical History According to the record bilateral tubal ligation Thymus removed Left chest port placement Tonsillectomy (Laury Ibarra) Coded Allergies: penicillin G (Unverified Allergy, Severe, Anaphylaxis, 01/08/18) promethazine (Unverified Adverse Reaction, Severe, NAUSEOUS, 01/08/18) Medications Administered Medications Medications (Trade) Dose Ordered Sig/Gómez Route PRN Reason Start Time Stop Time Status Last Admin Dose Admin Aspirin (Aspirin Chew) 81 mg DAILY CHEW 01/30/18 09:00 01/31/18 08:51 Ferrous Sulfate (Ferrous Sulfate) 325 mg BID@12,17 PO 01/29/18 17:00 01/31/18 11:56 Gabapentin (Neurontin) 300 mg Q8HR PO 01/29/18 16:15 01/31/18 13:33 Mycophenolate Mofetil (Cellcept) 500 mg BID PO 01/29/18 21:00 01/31/18 08:52 Pyridostigmine Amado (Mestinon) 120 mg TIDAC PO 01/29/18 17:00 01/31/18 11:56 Lactobacillus Acidophilus (Lactinex) 1 tab DAILY PO 01/30/18 09:00 01/31/18 08:52 Oxycodone HCl (Roxicodone) 5 mg Q6H PRN PO PAIN SCALE 5 TO 10 01/29/18 18:00 01/31/18 15:21 Mirtazapine (Remeron) 15 mg HS PO 01/30/18 21:00 01/30/18 21:21 Lorazepam (Ativan) 1 mg Q6H PRN PO Anxiety 01/30/18 09:00 01/31/18 11:56 Melatonin (Melatonin) 5 mg HS PRN PO INSOMNIA 01/30/18 09:00 01/30/18 21:21 Methylprednisolone Sodium Succinate (SoluMEDROL INJ) 10 mg BID IV PUSH 01/30/18 21:00 02/02/18 20:59 01/31/18 08:52 Mesalamine (Asacol Hd Dr) 1,600 mg Q8HR PO 01/30/18 14:00 02/06/18 13:59 01/31/18 13:33 Sumatriptan Succinate (Imitrex) 50 mg Q6HR PRN PO HEADACHE 01/31/18 09:15 4/23/18 13:35 Family History No family history of colon cancer Social History No smoking No alcohol Cocaine approximately 1 month ago Marijuana approximately 2 weeks ago (Laury bIarra) Review of Systems Constitutional: COMPLAINS OF: Weight loss Gastrointestinal: COMPLAINS OF: Abdominal pain, Diarrhea (Laury Ibarra ) GI Exam Vitals I&O Vital Signs Date Time Temp Pulse Resp B/P (MAP) Pulse Ox O2 Delivery O2 Flow Rate FiO2 01/31/18 14:35 16 01/31/18 10:06 16 01/31/18 06:25 98.2 114 17 121/75 (90) 01/30/18 17:25 97.8 103 18 136/59 (84) 98 I/O 01/30/18 01/30/18 01/30/18 01/31/18 01/31/18 01/31/18 07:00 15:00 23:00 07:00 15:00 23:00 Intake Total 600 ml 240 ml 480 ml Output Total 3 ml Balance 600 ml 240 ml 477 ml Intake Oral 600 ml 240 ml 480 ml Output Stool Total 3 ml Physical Examination HEENT: Pupils round and reactive to light; normocephalic; atraumatic; no jaundice. Color pale, body build slim NECK: Neck is supple, no JVD, no lymphadenopathy. CHEST: Chest is clear without obvious rhonchi or wheezing CARDIAC: Regular rate and rhythm ABDOMEN: Soft, mild distention with mild bloating, generalized diffuse soreness over her entire abdomen; no hepatosplenomegaly; bowel sounds are upper active EXTREMITIES: No clubbing, cyanosis, or edema. SKIN: Normal; no rash; no jaundice. NIGHT TIME NANNY: Good historian, answers questions appropriately mild anxiety over current condition of diarrhea (Laury Ibarra) Assessment and Plan Assessment: (1) Diarrhea ICD Codes: R19.7 - Diarrhea, unspecified Plan Diarrhea onset approximately 2 years ago and states daily diarrhea up to 10 times a day. Unsure at this point whether this is infectious versus inflammatory versus medication induced. patient has no history of bowel disease or no family history of colon cancer to her knowledge. No previous GI workup no EGD or colonoscopy. On 01/30/2018 patient was placed on Asacol 1600 mg every 8 hours but so far according to patient med has not been effective Patient has sore tender rectal area positive for some hemorrhoids mild blood noted with wiping but no obvious rectal bleeding. Currently patient states that her stools have been green for the past month, LFTs and bilirubin are normal. Hemoglobin 11.8. WBC count 12.9 Patient was treated for C. difficile colitis back at 09 January and was on vancomycin and Flagyl. She states the diarrhea got better but as soon as she came off the medicine the diarrhea returned. Her C. difficile toxin PCR and toxoid 027 are negative. Patient does admit to some drug usage with cocaine and marijuana within the past month. Patient does have myasthenia gravis and has been on CellCept for the past 2 years. She is unsure whether she started the diarrhea before or after the CellCept was started. She states approximately 8-10 pound weight loss over the past month, and her weight has fluctuated over the past 2 years, without any other further obvious weight loss. Plan Diet brat diet may have apple juice Cholestyramine packet every [address] of the abdomen routine Further recommendations after x-ray and treatment regimen initiated Consider colonoscopy, TBA, Continue low-dose steroids Probiotics Tucks pads as needed Hemorrhoid Proctofoam HC as needed Monitor labs Supportive care This patient was seen per myself and Dr. Luna, this note was written on his behalf (Laury Ibarra) Physician Comments Patient seen and examined Agree with above Continue with current supportive care Monitor lab CT has come back unremarkable In the absence of malnutrition and with the patient showing normal albumin and electrolytes it is unclear as to how significant overall this diarrhea is playing I would recommend that we pursue an EGD and a colonoscopy Certainly we could pursue neuroendocrine workup if above is negative Most likely cause though I think is her medication if it is possible to change the CellCept and now would be a good first step Further recommendations she will depend on her hospital course (Sylvester Luna MD) Laury Ibarra Jan 31, 2018 16:26 Sylvester Luna MD Jan 31, 2018 23:10
[2018-01-31] MEDS ORDERED: DIATRIZOATE MEGLUM/DIATRIZOATE SOD 9 ML CUP PO ONE (16:45)
[2018-01-31] MEDS ORDERED: HYDROCORTISONE/PRAMOXINE RECTAL FOAM 10 GM CAN RECTAL PRN (16:45)
[2018-01-31] MEDS ORDERED: WITCH HAZEL 50%/GLYCERIN 12.5% 40 PAD JAR TOPICAL PRN (16:45)
[2018-01-31 16:46] LABS: HEMOGLOBIN A1C 4.5 % (4.3-6.0)
--- NOTE | 2018-01-31 17:22 | MB ---
cc: Leonardo De La Fuente MD, PhD DATE: 01/31/2018 REASON FOR CONSULTATION: Myasthenia gravis. HISTORY OF PRESENT ILLNESS: Mr. Rodríguez is a 42-year-old woman known to me who has well known myasthenia gravis. She is status post thymectomy. She has been on CellCept, but presented to the hospital with an exacerbation with respiratory involvement requiring intubation, treated initially with IVIG without improvement. She was then treated with plasmapheresis with gradual improvement in her symptoms. She continues on CellCept and prednisone. She was tried on rituximab recently, but had a reaction to this. Also tried cyclosporine, but had a reaction with paresthesias. NEUROLOGIC EXAM: She is alert, oriented. Speech is within normal limits. Cranial nerves are intact. There is no ptosis. Motor exam, 5/5 strength in all groups. IMPRESSION: 1. Myasthenia gravis, which is currently stable. Continue current dose of Mestinon and CellCept. We will start to taper the prednisone gradually. 2. Depression with suicidal ideation. The patient currently is on the psychiatry service. Leonardo De La Fuente MD, PhD BOBBY/MOHSEN , 04:01 PM , 05:21 PM
--- NOTE | 2018-01-31 17:23 | HHI.PYPN ---
Subjective Chief Complaint: Depression, anxiety, overdose Remarks Patient seen for follow-up, chart reviewed. Discussion nursing staff reported the patient had been compliant with medications and sleep has improved. Patient was found lying hospital bed noted B, cooperative. Patient states that she had slept better last evening but has been having difficulty with sleep recently prior to admission. Patient states that she recently had overdosed on 08 January due to feeling depressed which is worsening due to her chronic medical illnesses, myasthenia gravis which has limited her function and has interfered with her life as well as being stressed about managing her urinary and fecal incontinence which limits her ability to be able to partake in any activities outside of her home. Patient states that since admission she has been actively trying remained occupied with activities such as coloring which states has been helpful. Patient states she had been in contact with her mother who is accepting of her living with her for now but states that she has "been given another chance on a very narrow bridge" regarding her relationship with her mother. She states that she had made many mistakes in the past which has instructed her relation with her family but believes this an opportunity for her to regain her mother's trust as well as to improve on her outlook. Patient states she is regretful due to her overdose and lives now for her children. Review of Systems Except as stated in HPI: all other systems reviewed are Neg Mental Status Examination Appearance: Appropriate Consciousness: Alert Orientation: x4 Motor Activity: Other (Motor exam as above) Speech: Unremarkable Language: Adequate Fund of Knowledge: Adequate Attention and Concentration: Adequate Memory: Unremarkable (Grossly intact on clinical exam) Mood: Sad Affect: Sad, Other (Tearful at times) Thought Process & Associations: Intact, Logical, Linear Thought Content: Appropriate Hallucination Type: None Delusion Type: None Suicidal Ideation: No Suicidal Plan: No Suicidal Intention: No Homicidal Ideation: No Homicidal Plan: No Homicidal Intention: No Insight: Fair Judgment: Impulsive Results Vitals/IOs Vital Signs Date Time Temp Pulse Resp B/P (MAP) Pulse Ox O2 Delivery O2 Flow Rate FiO2 01/31/18 16:29 16 01/31/18 06:25 98.2 114 121/75 (90) 01/30/18 17:25 98 Intake and Output 01/31/18 01/31/18 02/01/18 08:00 16:00 00:00 Intake Total 240 ml 240 ml Output Total 3 ml Balance 240 ml 237 ml Assessment & Plan Problem List: (1) Major depressive disorder, recurrent, moderate ICD Codes: F33.1 - Major depressive disorder, recurrent, moderate (2) Anxiety disorder ICD Codes: F41.9 - Anxiety disorder, unspecified Assessment & Plan Patient this time continues with depressed mood but states that medications are helping, reported improved sleep last evening. Patient tolerated medication regimen well. We will continue current treatment for now as patient was recently started on mirtazapine. Continue to monitor mood and behavior. Continue recommendations as her prior medical team and infectious disease consult recommendations. Consult input appreciated. Discharge planning in progress. Justification for Cont. Inpt. At risk for further decompensation if at lower level of care Request HC Surrog/Guard Advoc?: No Reginald Blakely MD Jan 31, 2018 17:23
[2018-01-31] MEDS: CHOLESTYRAMINE 4 GM PACKET PO SCH (18:00)
[2018-01-31 19:04] VITALS: BP 128/76; PULSE 107; RESP 17; TEMP 98; O2SAT 97
[2018-01-31] MEDS ORDERED: IOHEXOL 350 MG/ML 10 ML VIAL (for RAD DIAG) IVCONTRAST ONE (19:47)
--- NOTE | 2018-01-31 20:03 | RADRPT ---
EXAM DATE/TIME: 01/31/2018 19:44 [facility] COMPARISON: No previous studies available for comparison. INDICATIONS : Diffuse abdomen pain today. IV CONTRAST: 70 cc Omnipaque 350 (iohexol) IV ORAL CONTRAST: Prescribed oral contrast ingested. RADIATION DOSE: 7.75 CTDIvol (mGy) MEDICAL HISTORY : myasthenia gravis SURGICAL HISTORY : Hysterectomy. Tubal ligation.thymus removal ENCOUNTER: Initial ACUITY: 1 day PAIN SCALE: 7/10 LOCATION: Bilateral abdomen TECHNIQUE: Volumetric scanning of the abdomen and pelvis was performed. Using automated exposure control and ad justment of the mA and/or kV according to patient size, radiation dose was kept as low as reasonably achievable to obtain optimal diagnostic quality images. DICOM format image data is available electro nically for review and comparison. FINDINGS: LOWER LUNGS: Mild atelectasis of both bases. The consolidation on the right is mildly nodular and should be rechec ked within 6 months. LIVER: Homogeneous density without lesion. There is no dilation of the biliary tree. No calcified gallston es. SPLEEN: Normal size without lesion. PANCREAS: Within normal limits. KIDNEYS: Normal in size and shape. 1.7 cm cyst left mid zone. There is no solid mass, stone or hydronephrosis . ADRENAL GLANDS: Within normal limits. VASCULAR: There is no aortic aneurysm. BOWEL/MESENTERY: The stomach, small bowel, and colon demonstrate no acute abnormality. There is no free intraperitone al air or fluid. The appendix is well-visualized, normal. ABDOMINAL WALL: Within normal limits. RETROPERITONEUM: There is no lymphadenopathy. BLADDER: No wall thickening or mass. REPRODUCTIVE: Bilateral ovarian cysts measuring 1.9 cm on the right and 1.5 cm on the left. No inflammatory changes or free fluid. INGUINAL: There is no lymphadenopathy or hernia. MUSCULOSKELETAL: No acute bony abnormality demonstrated. Patient has a right bipolar hip arthroplasty. There are degen erative changes in the lumbar spine at L5/S1. CONCLUSION: 1. No obstruction or acute inflammatory changes are demonstrated. 2. Small bilateral ovarian cysts. No associated inflammatory changes or free fluid. 3. Benign left renal cyst. 4. Mild atelectasis of the visualized lung bases and including some parenchymal nodularity on the rig ht. 6 month followup noncontrast chest CT is recommended. Kory Suero MD on January 31, 2018 at 19:57 Board Certified Radiologist. This report was verified electronically.
[2018-01-31] MEDS: MELATONIN 5 MG TAB PO PRN (21:19)
[2018-01-31] MEDS: MIRTAZAPINE 15 MG TAB PO SCH (21:19)
[2018-02-01] MEDS: CHOLESTYRAMINE 4 GM PACKET PO SCH ×5 (05:28→23:21)
[2018-02-01] MEDS: GABAPENTIN 300 MG CAP PO SCH ×3 (05:28→20:59)
[2018-02-01] MEDS: MESALAMINE HD 800 MG DELAYED RELEASE TAB PO SCH ×3 (05:28→20:59)
[2018-02-01 06:17] VITALS: BP 84/53; PULSE 104; RESP 15; TEMP 97.6; O2SAT 99
[2018-02-01] MEDS: LACTOBACILLUS ACIDOPHILUS TAB PO SCH (08:10)
[2018-02-01] MEDS: PYRIDOSTIGMINE BROMIDE 60 MG TAB PO SCH ×3 (08:10→17:00)
[2018-02-01] MEDS: MYCOPHENOLATE MOFETIL 500 MG TAB PO SCH ×2 (08:11→20:58)
[2018-02-01] MEDS: ASPIRIN 81 MG CHEW TAB CHEW SCH (08:11)
[2018-02-01] MEDS: predniSONE 10 MG TAB PO SCH (08:11)
[2018-02-01] MEDS: LORazepam 1 MG TAB PO PRN ×3 (08:15→21:02)
[2018-02-01] MEDS: REMOVE OLD NICOTINE PATCH T-DERMAL SCH (08:34)
--- NOTE | 2018-02-01 09:36 | HHI.PR ---
Subjective Remarks Follow-up visit for myasthenia gravis, pneumonia, C. difficile, and chronic pain. Patient seen and examined today. Patient states that she is upset because she is taking Mestinon at home at 6:00 in the morning, 12 noon, and before dinner at night. States she is unable to swallow her food if she does not take the medication. However the timing of the food and the medication is not working for her. States that she is unable to eat because she cannot chew her food but she is hungry. She also is requesting to have coffee and have caffeine as it helps her with her migraine headaches instead of taking medications. Continues to report diarrhea, unable to count how many times a day. Otherwise, Denies pain and discomfort. Denies SOB/ dyspnea. Denies chest pain, palpitations, headaches, dizziness. Denies fevers, chills, nausea, vomiting. Denies hematuria, dysuria. Objective Vitals Vital Signs Date Time Temp Pulse Resp B/P (MAP) Pulse Ox O2 Delivery O2 Flow Rate FiO2 02/01/18 06:17 97.6 104 15 84/53 (63) 99 01/31/18 19:04 98.0 107 17 128/76 (93) 97 01/31/18 16:29 16 01/31/18 14:35 16 I/O 01/31/18 01/31/18 01/31/18 02/01/18 02/01/18 02/01/18 07:00 15:00 23:00 07:00 15:00 23:00 Intake Total 480 ml 480 ml 240 ml Output Total 3 ml Balance 477 ml 480 ml 240 ml Intake Oral 480 ml 480 ml 240 ml Output Stool Total 3 ml # Voids 1 1 Result Diagram: 01/30/18 1030 01/30/18 1030 Imaging Last Impressions Abdomen/Pelvis CT 01/31/18 0000 Signed Impressions: Service Date/Time: Wednesday, January 31, 2018 19:44 - CONCLUSION: 1. No obstruction or acute inflammatory changes are demonstrated. 2. Small bilateral ovarian cysts. No associated inflammatory changes or free fluid. 3. Benign left renal cyst. 4. Mild atelectasis of the visualized lung bases and including some parenchymal nodularity on the right. 6 month followup noncontrast chest CT is recommended. Kory Suero MD Objective Remarks GENERAL: This is a well-nourished, well-developed patient, in no apparent distress. SKIN: Warm and dry. HEENT: Normocephalic. Pupils equal round and reactive. Nose without bleeding. Airway patent. NECK: Trachea midline. CARDIOVASCULAR: Regular rate and rhythm without murmurs, gallops, or rubs. RESPIRATORY: Clear to auscultation. Breath sounds equal bilaterally. No wheezes , rales, or rhonchi. GASTROINTESTINAL: Abdomen soft, non-tender, slightly distended. Bowel Sounds normoactive x4. MUSCULOSKELETAL: Extremities without clubbing, cyanosis, or edema. NEUROLOGICAL: Awake and alert. Oriented to time, place, person. No focal neuro deficit. Moves all extremities. Normal speech. A/P Problem List: (1) Myasthenia exacerbation ICD Code: G70.01 - Myasthenia exacerbation Status: Acute (2) Anxiety ICD Code: F41.9 - Anxiety Status: Chronic (3) Diarrhea ICD Code: R19.7 - Diarrhea, unspecified (4) Major depressive disorder, recurrent, moderate ICD Code: F33.1 - Major depressive disorder, recurrent, moderate (5) Anxiety disorder ICD Code: F41.9 - Anxiety disorder, unspecified Assessment and Plan 42-year-old female with past medical history significant for myasthenia gravis, avascular necrosis of right hip, depression, anxiety, and hypotension who was recently discharged from inpatient hospital to medical psychiatry unit for further mental health evaluation. Patient was admitted recently on 01/08/18 after she was found by her ex- unresponsive at home. There were also reports that patient may have intentionally overdosed on Midrin. She was admitted for acute myasthenia gravis exacerbation with respiratory distress. She was intubated and mechanically ventilated on 01/11 and subsequently extubated on 01/18. During her stay patient also developed right upper lobe pneumonia positive for MRSA and also developed Clostridium difficile colitis. She was treated with vancomycin for MRSA pneumonia and oral vancomycin as well as IV metronidazole for Clostridium difficile colitis. She was seen and evaluated by both neurology and hematology oncology services during her stay. She received a total of 5 sessions of plasmapheresis with improvement of symptoms, also treated with mycophenolate, methylprednisolone, and pyridostigmine. Neurology recommended cyclosporine however patient had side effects so it was stopped. She was cleared for discharge and transfer to medical psychiatry unit, [facility] has been consulted to assist with ongoing medical management. Myasthenia gravis crisis, resolved Metabolic encephalopathy, resolved -Seen and evaluated by neurology as well as hematology oncology while inpatient. -s/p 5 sessions of plasmapheresis with improvement of symptoms. Treated with CellCept, Mestinon, and methylprednisolone. -She did have a trial of cyclosporine as recommended by neurology however experience tingling and pain in lower legs therefore this was discontinued. -She is now admitted to medical psychiatry unit. Continue CellCept and Mestinon. -Solu-Medrol 10 mg twice daily 3 days and then transition over to 5 mg twice daily p.o. of oral prednisone which she is on at home. -Neurology service is consulted by psychiatrist to follow patient while she is in medical psychiatry unit. -Reschedule Mestinon 6, 12, 5 PM, discussed with patient extensively she can order extra dinner or snacks to be placed on the fridge so she does not go hungry the following day. Respiratory distress, resolved Right lower lobe pneumonia/MRSA -Completed course of IV vancomycin, oxygen saturation 98% on room air -Afebrile, leukocytosis improving -ID consulted by psychiatry to continue follow-up while she is here in medical psychiatry unit. Clostridium difficile colitis, treated -s/p treatment with oral vancomycin as well as IV metronidazole. Prior to discharge patient with normal stools, however recent complaints of diarrhea -Stool negative for C. difficile, ID has been consulted by primary team. -Mesalamine added, reports diarrhea -GI consulted for continued diarrhea. -Abdominal CT showed no obstruction or acute inflammatory changes are demonstrated. Small bilateral ovarian cysts. No associated inflammatory changes or free fluid. Benign left renal cyst. Mild atelectasis of the visualized lung base including some parenchymal nodularity on the right. Six- month follow-up noncontrast chest CT is recommended. -GI plans to do colonoscopy in a.m. Chronic pain -Review of chart, patient's pain medication was being weaned. Roxicodone 5 mg every 6 hours as needed. -Consider decreasing frequency to every 8 hours tomorrow or in the following days DVT prophylaxis-ambulation Aidan Rushing Feb 01, 2018 09:36
--- NOTE | 2018-02-01 10:47 | HHI.GIFU ---
Subjective Remarks Pt eating breakfast. Agreeable to proceed with EGD/colonoscopy. c/o she has had diarrhea for 2 years, often it is uncontrollable and she is eschews socializing and outings d/t incontinence. (Karla Perez) Objective Vitals I&O Vital Signs Date Time Temp Pulse Resp B/P (MAP) Pulse Ox O2 Delivery O2 Flow Rate FiO2 02/01/18 06:17 97.6 104 15 84/53 (63) 99 01/31/18 19:04 98.0 107 17 128/76 (93) 97 01/31/18 16:29 16 01/31/18 14:35 16 I/O 01/31/18 01/31/18 01/31/18 02/01/18 02/01/18 02/01/18 07:00 15:00 23:00 07:00 15:00 23:00 Intake Total 480 ml 480 ml 240 ml Output Total 3 ml Balance 477 ml 480 ml 240 ml Intake Oral 480 ml 480 ml 240 ml Output Stool Total 3 ml # Voids 1 1 Laboratory Laboratory Tests Test 01/30/18 10:30 01/30/18 10:50 White Blood Count 12.9 TH/MM3 Red Blood Count 4.33 MIL/MM3 Hemoglobin 11.8 GM/DL Hematocrit 37.1 % Mean Corpuscular Volume 85.6 FL Mean Corpuscular Hemoglobin 27.3 PG Mean Corpuscular Hemoglobin Concent 31.9 % Red Cell Distribution Width 27.1 % Platelet Count 507 TH/MM3 Mean Platelet Volume 7.7 FL Neutrophils (%) (Auto) 71.3 % Lymphocytes (%) (Auto) 20.8 % Monocytes (%) (Auto) 6.2 % Eosinophils (%) (Auto) 1.1 % Basophils (%) (Auto) 0.6 % Neutrophils # (Auto) 9.2 TH/MM3 Lymphocytes # (Auto) 2.7 TH/MM3 Monocytes # (Auto) 0.8 TH/MM3 Eosinophils # (Auto) 0.1 TH/MM3 Basophils # (Auto) 0.1 TH/MM3 CBC Comment AUTO DIFF Differential Total Cells Counted 100 Neutrophils % (Manual) 67 % Lymphocytes % 20 % Monocytes % 11 % Eosinophils % 1 % Neutrophils # (Manual) 8.8 TH/MM3 Metamyelocytes 1 % Differential Comment FINAL DIFF MANUAL Platelet Estimate HIGH Platelet Morphology Comment NORMAL Tear Drop Cells 1+ Blood Urea Nitrogen 17 MG/DL Creatinine 0.44 MG/DL Random Glucose 68 MG/DL Total Protein 7.1 GM/DL Albumin 4.0 GM/DL Calcium Level 9.0 MG/DL Alkaline Phosphatase 43 U/L Aspartate Amino Transf (AST/SGOT) 22 U/L Alanine Aminotransferase (ALT/SGPT) 50 U/L Total Bilirubin 0.5 MG/DL Sodium Level 137 MEQ/L Potassium Level 3.9 MEQ/L Chloride Level 98 MEQ/L Carbon Dioxide Level 33.8 MEQ/L Anion Gap 5 MEQ/L Estimat Glomerular Filtration Rate 158 ML/MIN Hemoglobin A1c 4.5 % Triglycerides Level 369 MG/DL Cholesterol Level 351 MG/DL LDL Cholesterol 227 MG/DL HDL Cholesterol 50.3 MG/DL Cholesterol/HDL Ratio 6.97 RATIO Stool C. difficile Toxin (PCR) NEGATIVE Stl C. difficile Toxin Epiderm 027 PRESUMPTIVE NEGATIVE Imaging Last Impressions Abdomen/Pelvis CT 01/31/18 0000 Signed Impressions: Service Date/Time: Wednesday, January 31, 2018 19:44 - CONCLUSION: 1. No obstruction or acute inflammatory changes are demonstrated. 2. Small bilateral ovarian cysts. No associated inflammatory changes or free fluid. 3. Benign left renal cyst. 4. Mild atelectasis of the visualized lung bases and including some parenchymal nodularity on the right. 6 month followup noncontrast chest CT is recommended. Kory Suero MD Physical Exam HEENT: PERRL; normocephalic; atraumatic; no jaundice. CHEST: CTA CARDIAC: RRR ABDOMEN: Soft, mildly distended, nontender; no hepatosplenomegaly; bowel sounds are present in all four quadrants. EXTREMITIES: No clubbing, cyanosis, or edema. SKIN: Normal; no rash; no jaundice. 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 (Karla Perez [facility]) Assessment and Plan Assessment: (1) Diarrhea ICD Codes: R19.7 - Diarrhea, unspecified Plan Diarrhea onset approximately 2 years ago and states daily diarrhea up to 10 times a day. Unsure at this point whether this is infectious versus inflammatory versus medication induced. patient has no history of bowel disease or no family history of colon cancer to her knowledge. No previous GI workup no EGD or colonoscopy. On 01/30/2018 patient was placed on Asacol 1600 mg every 8 hours but so far according to patient med has not been effective Patient has sore tender rectal area positive for some hemorrhoids mild blood noted with wiping but no obvious rectal bleeding. Currently patient states that her stools have been green for the past month, LFTs and bilirubin are normal. Hemoglobin 11.8. WBC count 12.9 Patient was treated for C. difficile colitis back at 09 January and was on vancomycin and Flagyl. She states the diarrhea got better but as soon as she came off the medicine the diarrhea returned. Her C. difficile toxin PCR and toxoid 027 are negative. Patient does admit to some drug usage with cocaine and marijuana within the past month. Patient does have myasthenia gravis and has been on CellCept for the past 2 years. She is unsure whether she started the diarrhea before or after the CellCept was started. She states approximately 8-10 pound weight loss over the past month, and her weight has fluctuated over the past 2 years, without any other further obvious weight loss. 02/01/18 eager to proceed with EGD/colonoscopy, has been depressed about having frequent diarrhea and inability to control it at times, this has contributed to her wanting to end her life. d/w her at length. will do EGD and colonoscopy r/o IBD. if neg and stool studies are neg there are numerous outpt rx to trial Plan EGD and colonoscopy tomorrow obtain consent clear liquids today NPO after midnight mg citrate prep stool studies further recs to follow This patient was seen per myself and Dr. Luna, this note was written on his behalf (Karla Perez) Physician Comments Patient seen and examined Agree with above Continue with current supportive care Monitor lab Plan for an EGD with a colonoscopy tomorrow (Sylvester Luna MD) Karla Perez Feb 01, 2018 10:47 Sylvester Luna MD Feb 01, 2018 18:49
--- NOTE | 2018-02-01 11:18 | HHI.PYPN ---
Subjective Chief Complaint: Depression, anxiety, overdose Remarks Patient seen for follow-up, chart reviewed. Discussion nursing staff reported the patient was on the phone with mother today which mother was upset at the scheduled time patient is receiving her medications prior to breakfast, no report of suicide ideations or perceptual disturbances. Patient was found sitting up in hospital bed having breakfast noted, cooperative but slightly tearful during interview. Patient states that she is feeling "good" reporting having some difficulty with sleep last evening she began to recall of her overdose and she states "I can taste the pills in my mouth". Patient states that other than her difficulty sleeping and that her mood has been improving other continues to feel depressed but denying any suicide ideations. Patient states that she has been feeling frustrated due to chronic medical illness which limit her ability to participate in certain activities outside. Patient states that she feels that she is receiving adequate care, reports having been seen by the play leader to address her diarrhea, and also saw Dr. De La Fuente to follow-up with her myasthenia gravis. Patient states that she had a CT of the abdomen yesterday and has planned colonoscopy soon. Review of Systems Except as stated in HPI: all other systems reviewed are Neg Mental Status Examination Appearance: Appropriate Consciousness: Alert Orientation: x4 Motor Activity: Other (Motor exam as above) Speech: Unremarkable Language: Adequate Fund of Knowledge: Adequate Attention and Concentration: Adequate Memory: Unremarkable (Grossly intact on clinical exam) Mood: Sad (Less today) Affect: Sad (Less today), Other (Tearful at times) Thought Process & Associations: Intact, Logical, Linear Thought Content: Appropriate Hallucination Type: None Delusion Type: None Suicidal Ideation: No Suicidal Plan: No Suicidal Intention: No Homicidal Ideation: No Homicidal Plan: No Homicidal Intention: No Insight: Fair Judgment: Impulsive Results Vitals/IOs Vital Signs Date Time Temp Pulse Resp B/P (MAP) Pulse Ox O2 Delivery O2 Flow Rate FiO2 02/01/18 06:17 97.6 104 15 84/53 (63) 99 Intake and Output 02/01/18 02/01/18 02/02/18 08:00 16:00 00:00 Intake Total 240 ml Balance 240 ml Assessment & Plan Problem List: (1) Major depressive disorder, recurrent, moderate ICD Codes: F33.1 - Major depressive disorder, recurrent, moderate (2) Anxiety disorder ICD Codes: F41.9 - Anxiety disorder, unspecified Assessment & Plan Patient this time continues report feeling depressed but states that is improving, denying any suicide ideations. Patient continued with rumination and evening with some difficulty with sleep. Will increase Mirtazapine to 30mg PO HS for depression. Continue rest of medications, consult input appreciated. Continue to monitor mood and behavior. Discharge planning in progress. Justification for Cont. Inpt. At risk for further decompensation if at lower level of care Request HC Surrog/Guard Advoc?: No Reginald Blakely MD Feb 01, 2018 11:18
[2018-02-01] MEDS: FERROUS SULFATE 325 MG (65 MG ELEMENTAL IRON) TAB PO SCH ×2 (11:54→17:00)
[2018-02-01] MEDS ORDERED: PYRIDOSTIGMINE BROMIDE 60 MG TAB PO SCH (12:00)
[2018-02-01] MEDS: SUMAtriptan SUCCINATE 25 MG TAB PO PRN (14:57)
[2018-02-01] MEDS ORDERED: MAGNESIUM CITRATE SOLN 300 ML BTL PO ONE ×2 (16:00→18:00)
[2018-02-01 18:32] VITALS: BP 100/61; PULSE 82; RESP 16; TEMP 98.1; O2SAT 100
[2018-02-01] MEDS: MIRTAZAPINE 15 MG TAB PO SCH (20:59)
[2018-02-01] MEDS: MELATONIN 5 MG TAB PO PRN (20:59)
[2018-02-02 05:05] VITALS: BP 97/58; PULSE 88; RESP 15; TEMP 97.5; O2SAT 97
[2018-02-02] MEDS: MESALAMINE HD 800 MG DELAYED RELEASE TAB PO SCH ×3 (05:11→21:17)
[2018-02-02] MEDS: PYRIDOSTIGMINE BROMIDE 60 MG TAB PO SCH ×4 (05:12→21:17)
[2018-02-02] MEDS: GABAPENTIN 300 MG CAP PO SCH ×3 (05:12→21:18)
[2018-02-02] MEDS: CHOLESTYRAMINE 4 GM PACKET PO SCH ×3 (05:12→18:00)
[2018-02-02] MEDS: LACTOBACILLUS ACIDOPHILUS TAB PO SCH (08:10)
[2018-02-02] MEDS: MYCOPHENOLATE MOFETIL 500 MG TAB PO SCH ×2 (08:10→21:17)
[2018-02-02] MEDS: REMOVE OLD NICOTINE PATCH T-DERMAL SCH (08:11)
[2018-02-02] MEDS: ASPIRIN 81 MG CHEW TAB CHEW SCH (08:11)
[2018-02-02] MEDS: predniSONE 10 MG TAB PO SCH (08:11)
--- NOTE | 2018-02-02 08:40 | HHI.PR ---
Subjective Remarks Follow-up visit for myasthenia gravis, pneumonia, Post C. difficile colitis treatment with continued diarrhea, and chronic pain. Patient seen and examined today. Reports she is getting hungry but she does not know the schedule of her colonoscopy. Reports headache. Denies pain and discomfort. Denies SOB/ dyspnea. Denies chest pain, palpitations, dizziness. Denies fevers, chills, nausea, vomiting. Denies dysuria. Objective Vitals Vital Signs Date Time Temp Pulse Resp B/P (MAP) Pulse Ox O2 Delivery O2 Flow Rate FiO2 02/02/18 05:05 97.5 88 15 97/58 (71) 97 02/01/18 18:32 98.1 82 16 100/61 (74) 100 I/O 02/01/18 02/01/18 02/01/18 02/02/18 02/02/18 02/02/18 07:00 15:00 23:00 07:00 15:00 23:00 Intake Total 240 ml 570 ml 2730 ml 0 ml Balance 240 ml 570 ml 2730 ml 0 ml Intake Oral 240 ml 570 ml 2730 ml 0 ml # Voids 1 1 1 # Bowel Movements 1 Result Diagram: 01/30/18 1030 01/30/18 1030 Imaging Last Impressions Abdomen/Pelvis CT 01/31/18 0000 Signed Impressions: Service Date/Time: Wednesday, January 31, 2018 19:44 - CONCLUSION: 1. No obstruction or acute inflammatory changes are demonstrated. 2. Small bilateral ovarian cysts. No associated inflammatory changes or free fluid. 3. Benign left renal cyst. 4. Mild atelectasis of the visualized lung bases and including some parenchymal nodularity on the right. 6 month followup noncontrast chest CT is recommended. Kory Suero MD Objective Remarks GENERAL: This is a well-nourished, well-developed patient, in no apparent distress. SKIN: Warm and dry. HEENT: Normocephalic. Pupils equal round and reactive. Nose without bleeding. Airway patent. NECK: Trachea midline. CARDIOVASCULAR: Regular rate and rhythm without murmurs, gallops, or rubs. RESPIRATORY: Clear to auscultation. Breath sounds equal bilaterally. No wheezes , rales, or rhonchi. GASTROINTESTINAL: Abdomen soft, non-tender, slightly distended. Bowel Sounds normoactive x4. MUSCULOSKELETAL: Extremities without clubbing, cyanosis, or edema. NEUROLOGICAL: Awake and alert. Oriented to time, place, person. No focal neuro deficit. Moves all extremities. Normal speech. A/P Problem List: (1) Myasthenia exacerbation ICD Code: G70.01 - Myasthenia exacerbation Status: Acute (2) Anxiety ICD Code: F41.9 - Anxiety Status: Chronic (3) Diarrhea ICD Code: R19.7 - Diarrhea, unspecified (4) Major depressive disorder, recurrent, moderate ICD Code: F33.1 - Major depressive disorder, recurrent, moderate (5) Anxiety disorder ICD Code: F41.9 - Anxiety disorder, unspecified Assessment and Plan 42-year-old female with past medical history significant for myasthenia gravis, avascular necrosis of right hip, depression, anxiety, and hypotension who was recently discharged from inpatient hospital to medical psychiatry unit for further mental health evaluation. Patient was admitted recently on 01/08/18 after she was found by her ex- unresponsive at home. There were also reports that patient may have intentionally overdosed on Midrin. She was admitted for acute myasthenia gravis exacerbation with respiratory distress. She was intubated and mechanically ventilated on 01/11 and subsequently extubated on 01/18. During her stay patient also developed right upper lobe pneumonia positive for MRSA and also developed Clostridium difficile colitis. She was treated with vancomycin for MRSA pneumonia and oral vancomycin as well as IV metronidazole for Clostridium difficile colitis. She was seen and evaluated by both neurology and hematology oncology services during her stay. She received a total of 5 sessions of plasmapheresis with improvement of symptoms, also treated with mycophenolate, methylprednisolone, and pyridostigmine. Neurology recommended cyclosporine however patient had side effects so it was stopped. She was cleared for discharge and transfer to medical psychiatry unit, [facility] has been consulted to assist with ongoing medical management. Myasthenia gravis crisis, resolved Metabolic encephalopathy, resolved -Seen and evaluated by neurology as well as hematology oncology while inpatient. -s/p 5 sessions of plasmapheresis with improvement of symptoms. Treated with CellCept, Mestinon, and methylprednisolone. -She did have a trial of cyclosporine as recommended by neurology however experience tingling and pain in lower legs therefore this was discontinued. -She is now admitted to medical psychiatry unit. Continue CellCept and Mestinon. -Solu-Medrol 10 mg twice daily 3 days and then transition over to 5 mg twice daily p.o. of oral prednisone which she is on at home. -Neurology service is consulted by psychiatrist to follow patient while she is in medical psychiatry unit. -Reschedule Mestinon 6, 12, 5 PM, discussed with patient extensively she can order extra dinner or snacks to be placed on the fridge so she does not go hungry the following day. Respiratory distress, resolved Right lower lobe pneumonia/MRSA -Completed course of IV vancomycin, oxygen saturation 98% on room air -Afebrile, leukocytosis improving -ID consulted by psychiatry to continue follow-up while she is here in medical psychiatry unit. Clostridium difficile colitis, treated -s/p treatment with oral vancomycin as well as IV metronidazole. Prior to discharge patient with normal stools, however recent complaints of diarrhea -Stool negative for C. difficile, ID has been consulted appreciate recommendation. -Mesalamine added, reports diarrhea -GI consulted for continued diarrhea. -Abdominal CT showed no obstruction or acute inflammatory changes are demonstrated. Small bilateral ovarian cysts. No associated inflammatory changes or free fluid. Benign left renal cyst. Mild atelectasis of the visualized lung base including some parenchymal nodularity on the right. Six- month follow-up noncontrast chest CT is recommended. -Colonoscopy today Chronic pain -Review of chart, patient's pain medication was being weaned. Roxicodone 5 mg every 6 hours as needed. -Consider decreasing frequency to every 8 hours tomorrow or in the following days DVT prophylaxis-ambulation Aidan Rushing Feb 02, 2018 08:40
[2018-02-02] MEDS ORDERED: PROPOFOL 200 MG/20 ML AMP IV ONE (12:00)
[2018-02-02] MEDS: FERROUS SULFATE 325 MG (65 MG ELEMENTAL IRON) TAB PO SCH ×2 (12:28→17:00)
[2018-02-02] MEDS: hydrOXYzine HCL 25 MG TAB PO PRN ×2 (13:16→21:17)
--- NOTE | 2018-02-02 16:47 | HHI.PYPN ---
Subjective Chief Complaint: Depression, anxiety, overdose Remarks Patient seen for follow-up, chart reviewed. Discussion nursing staff reported the patient continued to be perseverative on receiving her pain medications as well as Lorazepam when available to her. Patient scheduled for EGD and colonoscopy today. Patient denying any suicide ideations. Patient was found lying on hospital bed noted B, cooperative. She states that she has been feeling ready to have these GI workup in hopes of finding for definitive answers in treatment to her ongoing difficulty with incontinence. Patient states that she slept well, her mood has been "good" denying any suicide ideations. Patient states she is having that she is receiving the medical workup. She states that she plans on continuing her treatment and continue with outpatient follow-up upon discharge. Review of Systems Except as stated in HPI: all other systems reviewed are Neg Mental Status Examination Appearance: Appropriate Consciousness: Alert Orientation: x4 Motor Activity: Other (Motor exam as above) Speech: Unremarkable Language: Adequate Fund of Knowledge: Adequate Attention and Concentration: Adequate Memory: Unremarkable (Grossly intact on clinical exam) Mood: Appropriate Affect: Anxious (Slightly) Thought Process & Associations: Intact, Logical, Linear Thought Content: Appropriate Hallucination Type: None Delusion Type: None Suicidal Ideation: No Suicidal Plan: No Suicidal Intention: No Homicidal Ideation: No Homicidal Plan: No Homicidal Intention: No Insight: Fair Judgment: Impulsive Results Labs Date/Time Source Procedure Growth Status 02/01/18 11:15 Stool Stool Cryptosporidium Exam Pending Received 02/01/18 11:15 Stool Stool Giardia Antigen (MANUELITO) Pending Received Vitals/IOs Vital Signs Date Time Temp Pulse Resp B/P (MAP) Pulse Ox O2 Delivery O2 Flow Rate FiO2 02/02/18 05:05 97.5 88 15 97/58 (71) 97 Intake and Output 02/02/18 02/02/18 02/03/18 08:00 16:00 00:00 Intake Total 0 ml 0 ml Balance 0 ml 0 ml Assessment & Plan Problem List: (1) Major depressive disorder, recurrent, moderate ICD Codes: F33.1 - Major depressive disorder, recurrent, moderate (2) Anxiety disorder ICD Codes: F41.9 - Anxiety disorder, unspecified Assessment & Plan Patient this time noted with improved mood, reporting but significantly less compared to admission. Patient denying suicide ideations, continues to endorse feeling motivated to continue outpatient treatment upon discharge. Patient scheduled for EGD and colonoscopy today. Patient to continue recommendations as her prior medical team as well as consult recommendations. Consult input appreciated. Patient to continue current treatment. We will discontinue lorazepam and start hydroxyzine 25 mg p.o. every 6 hours as needed anxiety. Continue to monitor mood and behavior. Discharge planning Justification for Cont. Inpt. At risk of further decompensation at lower level of care. Request HC Surrog/Guard Advoc?: No Reginald Blakely MD Feb 02, 2018 16:47
[2018-02-02 18:46] VITALS: BP 130/64; PULSE 86; RESP 16; O2SAT 99
[2018-02-02] MEDS: MELATONIN 5 MG TAB PO PRN (21:17)
[2018-02-02] MEDS: MIRTAZAPINE 15 MG TAB PO SCH (21:18)
[2018-02-03] MEDS: CHOLESTYRAMINE 4 GM PACKET PO SCH ×3 (05:44→12:00)
[2018-02-03] MEDS: GABAPENTIN 300 MG CAP PO SCH ×2 (05:50→13:31)
[2018-02-03] MEDS: MESALAMINE HD 800 MG DELAYED RELEASE TAB PO SCH (05:50)
[2018-02-03 06:00] VITALS: BP 114/64; PULSE 132; RESP 18; TEMP 99.6; O2SAT 96
[2018-02-03] MEDS: PYRIDOSTIGMINE BROMIDE 60 MG TAB PO SCH ×3 (06:13→17:09)
[2018-02-03] MEDS: hydrOXYzine HCL 25 MG TAB PO PRN ×2 (08:42→17:09)
[2018-02-03] MEDS: LACTOBACILLUS ACIDOPHILUS TAB PO SCH (08:42)
[2018-02-03] MEDS: ASPIRIN 81 MG CHEW TAB CHEW SCH (08:42)
[2018-02-03] MEDS: REMOVE OLD NICOTINE PATCH T-DERMAL SCH (08:43)
[2018-02-03] MEDS: predniSONE 10 MG TAB PO SCH (08:43)
[2018-02-03] MEDS: MYCOPHENOLATE MOFETIL 500 MG TAB PO SCH (08:43)
[2018-02-03] MEDS: SUMAtriptan SUCCINATE 25 MG TAB PO PRN ×2 (08:59→17:09)
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
[2018-02-03] MEDS ORDERED: LOMO2.5T PO (11:07)
[2018-02-03] MEDS ORDERED: PSYLLIUM HUSK SF 3.4 GM in 5.8 GM PKT PO SCH (11:15)
[2018-02-03] MEDS ORDERED: DIPHENOXYLATE/ATROPINE 2.5 MG/0.025 MG TAB PO PRN (11:15)
--- NOTE | 2018-02-03 11:17 | HHI.GIFU ---
Subjective Remarks Pt resting in bed. tolerating diet. Persistent diarrhea. (Karla Perez) Objective Vitals I&O Vital Signs Date Time Temp Pulse Resp B/P (MAP) Pulse Ox O2 Delivery O2 Flow Rate FiO2 02/03/18 06:00 99.6 132 18 114/64 (81) 96 02/02/18 18:46 86 16 130/64 (86) 99 I/O 02/02/18 02/02/18 02/02/18 02/03/18 02/03/18 02/03/18 07:00 15:00 23:00 07:00 15:00 23:00 Intake Total 0 ml 0 ml 600 ml 480 ml 480 ml Balance 0 ml 0 ml 600 ml 480 ml 480 ml Intake Oral 0 ml 0 ml 600 ml 480 ml 480 ml # Voids 1 1 1 Laboratory Date/Time Source Procedure Growth Status 02/01/18 11:15 Stool Stool Cryptosporidium Exam Pending Received 02/01/18 11:15 Stool Stool Giardia Antigen (MANUELITO) Pending Received Imaging Last Impressions Abdomen/Pelvis CT 01/31/18 0000 Signed Impressions: Service Date/Time: Wednesday, January 31, 2018 19:44 - CONCLUSION: 1. No obstruction or acute inflammatory changes are demonstrated. 2. Small bilateral ovarian cysts. No associated inflammatory changes or free fluid. 3. Benign left renal cyst. 4. Mild atelectasis of the visualized lung bases and including some parenchymal nodularity on the right. 6 month followup noncontrast chest CT is recommended. Kory Suero MD Physical Exam HEENT: PERRL; normocephalic; atraumatic; no jaundice. CHEST: CTA CARDIAC: RRR ABDOMEN: Soft, mildly distended, nontender; no hepatosplenomegaly; bowel sounds are present in all four quadrants. EXTREMITIES: No clubbing, cyanosis, or edema. SKIN: Normal; no rash; no jaundice. ZIPPER MACHINE OPERATOR: No focal deficits; alert and oriented times three. (Karla Perez) Assessment and Plan Assessment: (1) Diarrhea ICD Codes: R19.7 - Diarrhea, unspecified Plan Diarrhea onset approximately 2 years ago and states daily diarrhea up to 10 times a day. Unsure at this point whether this is infectious versus inflammatory versus medication induced. patient has no history of bowel disease or no family history of colon cancer to her knowledge. No previous GI workup no EGD or colonoscopy. On 01/30/2018 patient was placed on Asacol 1600 mg every 8 hours but so far according to patient med has not been effective Patient has sore tender rectal area positive for some hemorrhoids mild blood noted with wiping but no obvious rectal bleeding. Currently patient states that her stools have been green for the past month, LFTs and bilirubin are normal. Hemoglobin 11.8. WBC count 12.9 Patient was treated for C. difficile colitis back at 09 January and was on vancomycin and Flagyl. She states the diarrhea got better but as soon as she came off the medicine the diarrhea returned. Her C. difficile toxin PCR and toxoid 027 are negative. Patient does admit to some drug usage with cocaine and marijuana within the past month. Patient does have myasthenia gravis and has been on CellCept for the past 2 years. She is unsure whether she started the diarrhea before or after the CellCept was started. She states approximately 8-10 pound weight loss over the past month, and her weight has fluctuated over the past 2 years, without any other further obvious weight loss. 02/01/18 eager to proceed with EGD/colonoscopy, has been depressed about having frequent diarrhea and inability to control it at times, this has contributed to her wanting to end her life. d/w her at length. will do EGD and colonoscopy r/o IBD. if neg and stool studies are neg there are numerous outpt rx to trial 02/03/18 s/p EGD which was normal, colonoscopy found diverticulosis, hemorrhoids. diarrhea likely drug related, functional. Asacol not helping. On cholestyramine. would try Christy but physician will need to order this. Plan - await bx - christy - needs to order this - cholestyramine - d/c asacol - fiber supplement for bulk - f/u as outpt - consider injection of bulking agent for anal sphincter This patient was seen per myself and Dr. Luna, this note was written on his behalf (Karla Perez) Physician Comments Patient seen and examined Agree with above Continue with current supportive care Monitor labs (Sylvester Luna MD) Karla Perez Feb 03, 2018 11:17 Sylvester Luna MD Feb 03, 2018 21:32
--- NOTE | 2018-02-03 12:04 | HHI.IDPN ---
Note Infectious Disease Note ID follow-up note. Patient is status post EGD and colonoscopy. Diverticulosis and hemorrhoids noted on colonoscopy. Agree with Lomotil. Nothing new to add from ID standpoint. I will sign off now. Please reconsult if further input is needed. Bjorn Paiz MD Feb 03, 2018 12:04
[2018-02-03] MEDS: FERROUS SULFATE 325 MG (65 MG ELEMENTAL IRON) TAB PO SCH ×2 (12:07→17:09)
[2018-02-03] MEDS ORDERED: MIRT30TA PO (12:12)
[2018-02-03] MEDS ORDERED: HYDR-3133 PO (12:12)
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
[2018-02-03 14:23] LABS: HEMATOCRIT 34.8 % (35.0-46.0); HEMOGLOBIN 11.5 GM/DL (11.6-15.3); MEAN CELL VOLUME 87.4 FL (80.0-100.0); MEAN CORPUSCULAR HEMOGLOBIN 28.9 PG (27.0-34.0); MEAN CORPUSCULAR HGB CONC 33.1 % (32.0-36.0); MEAN PLATELET VOLUME 8.1 FL (7.0-11.0); PLATELET COUNT 268 TH/MM3 (150-450); RED BLOOD COUNT 3.98 MIL/MM3 (4.00-5.30); RED CELL DISTRIBUTION WIDTH 26.2 % (11.6-17.2); WHITE BLOOD COUNT 25.6 TH/MM3 (4.0-11.0)
[2018-02-03 14:38] LABS: ALBUMIN 3.4 GM/DL (3.4-5.0); AST (GOT) 8 U/L (15-37); BLOOD UREA NITROGEN 8 MG/DL (7-18); CALCIUM 8.9 MG/DL (8.5-10.1); CHLORIDE 105 MEQ/L (98-107); CREATININE 0.71 MG/DL (0.50-1.00); GLOMERULAR FILTRATION RATE 91 ML/MIN (>89); GLUCOSE,RANDOM 161 MG/DL (74-106); SODIUM (NA) 141 MEQ/L (136-145)
[2018-02-03 14:43] LABS: ALKALINE PHOSPHATASE 50 U/L (45-117); ALT (GPT) 25 U/L (10-53); TOTAL BILIRUBIN ADULT 0.4 MG/DL (0.2-1.0); TOTAL PROTEIN 6.7 GM/DL (6.4-8.2)
[2018-02-03] MEDS ORDERED: OXYC-392 PO (16:52)
== END 2018-02-03 18:00 | disposition home or self-care (01) | DRG 885 ==
LOC: H4EA 15:36 → UNDODISIN 02-02 16:08
PROVIDERS: ADMIT Student in an Organized Health Care Education/Training Program; ATTEND Student in an Organized Health Care Education/Training Program
DX: F33.1 Major depressive disorder, recurrent, moderate (principal); G70.00 Myasthenia gravis without (acute) exacerbation; M87.9 Osteonecrosis, unspecified; F41.9 Anxiety disorder, unspecified; Z79.52 Long term (current) use of systemic steroids; Z79.82 Long term (current) use of aspirin; G89.29 Other chronic pain; R19.7 Diarrhea, unspecified; Z87.891 Personal history of nicotine dependence
CPT/HCPCS: 74177; 80053; 80061; 83036; 85007; 85027; 87328; 87329; 87493; 87506; J1642; J2920; J7512; J7517; Q9963; Q9967

== ENCOUNTER 2018-02-02 16:17 | Day surgery (SDC) | payer MEDICARE, MEDICAID ==
--- NOTE | 2018-02-02 17:40 | PD.PROCEDR ---
GI Procedure PROCEDURE PERFORMED EGD with biopsies followed by a colonoscopy with biopsies INDICATION FOR PROCEDURE Chronic diarrhea PROCEDURE: The procedure, risks and benefits were discussed with Patient/POA and informed consent was obtained. Anesthesia sedated Patient with Diprivan. Patient was placed in the left lateral decubitus position. EGD: The Pentax videoscope was introduced through the oropharynx and advanced to the second portion of the duodenum under direct visualization. Retroflexion was performed in the stomach. FINDINGS: The esophagus this was normal The stomach this was normal The duodenum this was normal random biopsies were taken for further evaluation of diarrhea Colonoscopy: The Pentax videoscope was introduced through the rectum and advanced to cecum where the ileocecal valve and appendiceal orifice were identified. Retroflexion was performed in the rectum. Colonic prep was fair FINDINGS: Colonic withdrawal time greater than 6 minutes. As the scope was slowly withdrawn colonic mucosa was carefully inspected the colonic mucosa appeared to be unremarkable and within normal limits all the way through random biopsies were taken from the ascending and descending colon the patient was noted to have mild diverticulosis of the sigmoid region retroflexion in the rectum did reveal moderate-sized internal hemorrhoids and rectal examination revealed small size external hemorrhoids ESTIMATED BLOOD LOSS: None SPECIMENS REMOVED: Duodenal and colonic biopsies COMPLICATIONS: None IMPRESSION: Normal EGD Diverticulosis Internal and external hemorrhoids PLAN: Await biopsies Advance diet Most likely cause of her diarrhea is drug-induced but we will await biopsies before making a final decision May try Lomotil and possibly tincture of morphine Sylvester Luna MD Feb 02, 2018 17:40
[2018-02-02] MEDS ORDERED: DO NOT ADM ANY ANTICOAGULANT DRUGS PRN (17:42)
[2018-02-02 18:30] VITALS: BP 105/62; PULSE 74; RESP 15; TEMP 98
[2018-02-03] MEDS ORDERED: LOMO2.5T PO (11:07)
[2018-02-03] MEDS ORDERED: HYDR-3133 PO (12:12)
[2018-02-03] MEDS ORDERED: MIRT30TA PO (12:12)
[2018-02-03] MEDS ORDERED: OXYC-392 PO (16:52)
== END 2018-02-02 17:30 ==
LOC: HSDC 16:17
PROVIDERS: ATTEND Student in an Organized Health Care Education/Training Program
DX: K52.9 Noninfective gastroenteritis and colitis, unspecified (principal); K57.30 Diverticulosis of large intestine without perforation or abscess without bleeding; K44.9 Diaphragmatic hernia without obstruction or gangrene; K64.4 Residual hemorrhoidal skin tags; K64.8 Other hemorrhoids
CPT/HCPCS: 88305

== ENCOUNTER 2018-02-20 21:00 | Inpatient (IN) | payer MEDICARE, MEDICAID ==
[~2018-02-20] VITALS: Ht 165.1 cm; Wt 52.4 kg
[~2018-02-20 21:00] MED LIST changes: -Acet-Butal-Caff 325-50-40 Mg PO; -CITA40TA4 PO; -ENOX30P SQ; +HYDR-3133 PO; +LOMO2.5T PO; -MIDO5TAB PO; +MIRT30TA PO; +OXYC-392 PO; -PRED5TAB PO; -VANC500I3 PO; -XANA1TAB2 PO
[2018-02-20 21:12] VITALS: BP 131/81; PULSE 93; RESP 18; TEMP 97.7; O2SAT 99
[2018-02-20] MEDS ORDERED: MYCO500 PO (21:23)
[2018-02-20] MEDS ORDERED: PREDPOW42 (21:24)
[2018-02-20] MEDS ORDERED: EPINEPHrine HCL (1:1000) 1 MG/ML VIAL IM ONE (21:30)
[2018-02-20] MEDS ORDERED: methylPREDNISolone SOD SUCC 125 MG/2 ML VIAL IV PUSH ONE (21:30)
[2018-02-20] MEDS ORDERED: diphenhydrAMINE HCL 50 MG/ML VIAL IVP ONE (21:30)
[2018-02-20] MEDS ORDERED: SODIUM CHLORIDE 0.9% FLUSH 10 ML FLUSH IV FLUSH PRN ×2 (21:30→23:45)
[2018-02-20] MEDS ORDERED: FAMOTIDINE 20 MG/2 ML VIAL IV PUSH ONE (21:30)
--- NOTE | 2018-02-20 21:50 | PD ---
HPI Chief Complaint: GI Complaint Time Seen by Provider: 21:19 Travel History International Travel<30 days: No Contact w/Intl Traveler<30days: No Traveled to known affect area: No History of Present Illness HPI 42 yo F complains of difficulty swallowing blurred vision jaw locking increasingly over the past few days. She has a history of myasthenia gravis and is admitted to the hospital at times as often as once monthly. She has been compliant with medications including pyridostigmine, prednisone and CellCept. She was taking 5 mg of prednisone daily however increased 25 over the past few days. She reports that the pyridostigmine is less efficacious lately. Patient denies difficulty breathing at the time of ER arrival. PFSH Past Medical History Anemia: Yes Arthritis: No Asthma: No Autoimmune Disease: Yes (MYASTHENIA GRAVIS) Anxiety: Yes Depression: Yes Heart Rhythm Problems: No Cancer: No Cardiovascular Problems: No High Cholesterol: No Chemotherapy: No Chest Pain: No Congestive Heart Failure: No COPD: No Cerebrovascular Accident: No Diabetes: No Diminished Hearing: No Endocrine: Yes GERD: No Genitourinary: No Headaches: No Hiatal Hernia: No Immune Disorder: Yes (MYASTHENIA GRAVIS) Implanted Vascular Access Dvce: Yes (left chest power port) Kidney Stones: No Musculoskeletal: Yes (AVASCULAR NECROSIS RIGHT HIP) Neurologic: Yes (MYASTHENIA GRAVIS) Psychiatric: Yes (Depression and anxiety) Reproductive: No Respiratory: No Immunizations Current: No Migraines: Yes Radiation Therapy: No Renal Failure: No Seizures: No Sickle Cell Disease: No Sleep Apnea: No Thyroid Disease: Yes (THYMUS GLAND REMOVED) Ulcer: No ?: Not LMP: menapause : 2 Para: 2 Dilation and Curettage (D&C): Yes Tubal Ligation: Yes Past Surgical History Abdominal Surgery: No AICD: No Arteriovenous Shunt: No Body Medical Devices: LEFT CHEST WALL PORT Cardiac Surgery: No Ear Surgery: No Endocrine Surgery: Yes (THYMUS REMOVAL) Eye Surgery: No Genitourinary Surgery: No Gynecologic Surgery: Yes (tubal ligation 2014) Insulin Pump: No Joint Replacement: Yes (11/2017) Oral Surgery: Yes (WISDOM TEETH REMOVAL) Pacemaker: No Thoracic Surgery: No Tonsillectomy: Yes Other Surgery: Yes (tubal ligation Dec 2014/ POWER PORT TO LEFT CHEST, thymus gland REMOVAL) Social History Alcohol Use: No Tobacco Use: No Substance Use: Yes (MARIJUANA AND COCAINE) Allergies-Medications (Allergen,Severity, Reaction): Coded Allergies: penicillin G (Unverified Allergy, Severe, Anaphylaxis, 02/20/18) promethazine (Unverified Adverse Reaction, Severe, NAUSEOUS, 02/20/18) Reported Meds & Prescriptions Reported Meds & Active Scripts Active Hydroxyzine HCl 25 Mg Tab 25 Mg PO Q6H PRN 15 Days Mirtazapine 30 Mg Tab 30 Mg PO HS Lomotil (Diphenoxylate-Atropine) 2.5-0.025 Mg Tab 1 Tab PO Q6H PRN 2 Days Ferosul (Ferrous Sulfate) 325 Mg (65 Mg Iron) Tablet 325 Mg PO BID@12,17 30 Days Neurontin (Gabapentin) 300 Mg Cap 300 Mg PO Q8H Mestinon (Pyridostigmine [place]) 60 Mg Tab 120 Mg PO TIDAC Lactinex (Lactobacillus Acidophilus) 1 Chew 1 Tab CHEW DAILY Imitrex (Sumatriptan Succinate) 50 Mg Tab 50 Mg PO NEEDED PRN If a satisfactory response has not been obtained at 2 hours, a second dose may be administered Reported Prednisone 25 Gm Powder Cellcept (Mycophenolate Mofetil) 500 Mg Tab 500 Mg PO TID Aspirin 81 Mg Chew 81 Mg CHEW DAILY Review of Systems Except as stated in HPI: all other systems reviewed are Neg General / Constitutional: No: Fever Physical Exam Narrative GENERAL: 42-year-old female pleasant well-nourished well-developed speaking sentences cooperative Vital Signs Date Time Temp Pulse Resp B/P (MAP) Pulse Ox O2 Delivery O2 Flow Rate FiO2 02/20/18 21:12 97.7 93 18 131/81 (98) 99 SKIN: Warm and dry. HEAD: Atraumatic. Normocephalic. EYES: Pupils equal and round. No scleral icterus. No injection or drainage. There is minimal edema about the eyelids. ENT: No nasal bleeding or discharge. Mucous membranes pink and moist. Posterior oropharynx is widely patent. NECK: Trachea midline. No JVD. CARDIOVASCULAR: Rate about 90. Regular rhythm. RESPIRATORY: No accessory muscle use. Clear to auscultation. Breath sounds equal bilaterally. GASTROINTESTINAL: Abdomen soft, non-tender, nondistended. Hepatic and splenic margins not palpable. MUSCULOSKELETAL: Extremities without clubbing, cyanosis, or edema. No obvious deformities. NEUROLOGICAL: Awake and alert. No obvious cranial nerve deficits. Motor grossly within normal limits. Five out of 5 muscle strength in the arms and legs. Normal speech. PSYCHIATRIC: Appropriate mood and affect; insight and judgment normal. Data Data Last Documented VS Vital Signs Date Time Temp Pulse Resp B/P (MAP) Pulse Ox O2 Delivery O2 Flow Rate FiO2 02/20/18 22:01 92 131/81 02/20/18 21:12 97.7 18 99 Orders Orders Complete Blood Count With Diff (02/20/18:) Comprehensive Metabolic Panel (02/20/18:) Ecg Monitoring (02/20/18:) Iv Access Insert/Monitor (02/20/18) Oximetry (02/20/18) Oxygen Administration (02/20/18:) Diphenhydramine Inj (Benadryl Inj) (02/20/18 21:30) Methylprednisolone So Succ Inj (Solumedr (02/20/18 21:30) Famotidine Inj (Pepcid Inj) (02/20/18 21:30) Sodium Chloride 0.9% Flush (Ns Flush) (02/20/18 21:30) Epinephrine (1:1000) Inj (Adrenalin (1:1 (02/20/18 21:30) Sodium Chlorid 0.9% 500 Ml Inj (Ns 500 M (02/20/18 22:30) Immune Globulin Inj (Privigen Inj) (02/21/18 00:00) Dextrose 5% In [place]ate 500 Ml Inj (D5w 500 (02/20/18 22:30) Diphenhydramine Inj (Benadryl Inj) (02/20/18 22:30) Epinephrine (1:1000) Inj (Adrenalin (1:1 (02/20/18 22:30) Sumatriptan Succinate (Imitrex) (02/20/18 22:30) Admit Order (Ed Use Only) (02/20/18 ) Fryer Operator / Telemetry SHARLENE.Q8H (02/20/18 23:12) Vital Signs (Adult) Q4H (02/20/18 23:12) Diet Heart Healthy (02/21/18 Breakfast) Activity Oob With Assistance (02/20/18 23:12) Notify Dr: Other (02/20/18 23:12) Labs Laboratory Tests Test 02/20/18 21:37 White Blood Count 16.9 TH/MM3 Red Blood Count 4.49 MIL/MM3 Hemoglobin 12.8 GM/DL Hematocrit 38.3 % Mean Corpuscular Volume 85.4 FL Mean Corpuscular Hemoglobin 28.6 PG Mean Corpuscular Hemoglobin Concent 33.4 % Red Cell Distribution Width 22.7 % Platelet Count 457 TH/MM3 Mean Platelet Volume 7.3 FL Neutrophils (%) (Auto) 82.4 % Lymphocytes (%) (Auto) 11.3 % Monocytes (%) (Auto) 5.4 % Eosinophils (%) (Auto) 0.3 % Basophils (%) (Auto) 0.6 % Neutrophils # (Auto) 14.0 TH/MM3 Lymphocytes # (Auto) 1.9 TH/MM3 Monocytes # (Auto) 0.9 TH/MM3 Eosinophils # (Auto) 0.1 TH/MM3 Basophils # (Auto) 0.1 TH/MM3 CBC Comment AUTO DIFF Differential Comment AUTO DIFF CONFIRMED Blood Urea Nitrogen 13 MG/DL Creatinine 0.59 MG/DL Random Glucose 77 MG/DL Total Protein 6.8 GM/DL Albumin 3.6 GM/DL Calcium Level 8.5 MG/DL Alkaline Phosphatase 47 U/L Aspartate Amino Transf (AST/SGOT) 13 U/L Alanine Aminotransferase (ALT/SGPT) 18 U/L Total Bilirubin 0.4 MG/DL Sodium Level 142 MEQ/L Potassium Level 3.8 MEQ/L Chloride Level 106 MEQ/L Carbon Dioxide Level 29.3 MEQ/L Anion Gap 7 MEQ/L Estimat Glomerular Filtration Rate 112 ML/MIN [facility] Medical Decision Making Medical Screen Exam Complete: Yes Emergency Medical Condition: Yes Medical Record Reviewed: Yes Differential Diagnosis Myasthenia gravis, respiratory failure, allergic reaction Narrative Course Patient received Benadryl and Solu-Medrol here epinephrine also given. The patient will be admitted for ongoing treatment of acute myasthenia exacerbation. 20 g of IVIG ordered here. The dosing according to prior notes from Dr. De La Fuente is 0.4 mg/kg given IV once daily over a time period of 6-8 hours. In summary the patient is having an exacerbation of myasthenia gravis. She has similar exacerbations about once monthly. She will be admitted for IVIG therapy. At this point the patient's airway is secure in her mental status is GCS 15 and AO 4. Her vital signs are normal. CBC & BMP Diagram 02/20/18 21:37 Total Protein 6.8, Albumin 3.6, Calcium Level 8.5, Alkaline Phosphatase 47, Aspartate Amino Transf (AST/SGOT) 13 L, Alanine Aminotransferase (ALT/SGPT) 18, Total Bilirubin 0.4 d/w Dr Bennett for [facility]HH VS normal AOx3 GCS 15 Pt ok for Med/surg floor with telemetry Critical Care Narrative Aggregate critical care time was 35 minutes. Time to perform other separately billable procedures was not included in the critical care time. My time did not include minutes spent treating any other patients simultaneously or on activities that did not directly contribute to the patient's treatment. The services I provided to this patient were to treat and/or prevent clinically significant deterioration that could result in: Cardiopulmonary arrest, hypoxia I provided critical care services requiring my management, as noted below: Chart data review, documentation time, medication orders and management, vital sign assessments/reviewing monitor data, ordering and reviewing lab tests, ordering and interpreting/reviewing x-rays and diagnostic studies, care of the patient and discussion of the patient with the admitting physicians. Diagnosis Primary Impression: Myasthenia gravis with exacerbation Admitting Information Admitting Physician Requests: Admit Hugh Cedeno MD February 20, 2018 21:50
[2018-02-20 21:54] LABS: BASOPHIL # 0.1 TH/MM3 (0-0.2); BASOPHIL % 0.6 % (0.0-2.0); EOSINOPHIL # 0.1 TH/MM3 (0-0.4); EOSINOPHIL % 0.3 % (0.0-4.0); HEMATOCRIT 38.3 % (35.0-46.0); HEMOGLOBIN 12.8 GM/DL (11.6-15.3); LYMPH % 11.3 % (9.0-44.0); LYMPHOCYTE # 1.9 TH/MM3 (1.0-4.8); MEAN CELL VOLUME 85.4 FL (80.0-100.0); MEAN CORPUSCULAR HEMOGLOBIN 28.6 PG (27.0-34.0); MEAN CORPUSCULAR HGB CONC 33.4 % (32.0-36.0); MEAN PLATELET VOLUME 7.3 FL (7.0-11.0); MONO % 5.4 % (0.0-8.0); MONOCYTE # 0.9 TH/MM3 (0-0.9); NEUT % 82.4 % (16.0-70.0); PLATELET COUNT 457 TH/MM3 (150-450); RED BLOOD COUNT 4.49 MIL/MM3 (4.00-5.30); RED CELL DISTRIBUTION WIDTH 22.7 % (11.6-17.2); WHITE BLOOD COUNT 16.9 TH/MM3 (4.0-11.0)
[2018-02-20 22:12] LABS: ALBUMIN 3.6 GM/DL (3.4-5.0); ALT (GPT) 18 U/L (10-53); AST (GOT) 13 U/L (15-37); BICARBONATE 29.3 MEQ/L (21.0-32.0); BLOOD UREA NITROGEN 13 MG/DL (7-18); CALCIUM 8.5 MG/DL (8.5-10.1); CHLORIDE 106 MEQ/L (98-107); CREATININE 0.59 MG/DL (0.50-1.00); GLOMERULAR FILTRATION RATE 112 ML/MIN (>89); GLUCOSE,RANDOM 77 MG/DL (74-106); SODIUM (NA) 142 MEQ/L (136-145)
[2018-02-20 22:15] LABS: ALKALINE PHOSPHATASE 47 U/L (45-117); TOTAL BILIRUBIN ADULT 0.4 MG/DL (0.2-1.0); TOTAL PROTEIN 6.8 GM/DL (6.4-8.2)
[2018-02-20] MEDS ORDERED: SUMAtriptan SUCCINATE 50 MG TAB PO ONE (22:30)
[2018-02-20] MEDS ORDERED: DIPHENHYDRAMINE HCL 50 MG/ML VIAL Reaction Med IV PUSH PRN (22:30)
[2018-02-20] MEDS ORDERED: NS 500 ML Pre-hydration IV SCH (22:30)
[2018-02-20] MEDS ORDERED: EPINEPHRINE HCL (1:1000) 1 MG/ML AMP Reaction Med OTHER PRN (22:30)
[2018-02-20] MEDS ORDERED: D5W as prime bag (IVIG as secondary) IV SCH (22:30)
--- NOTE | 2018-02-20 23:30 | HHI.HP ---
[facility] Unknown Admission Diagnosis Myasthenia Gravis Exacerbation Diagnoses: Chief Complaint: facial swelling Travel History International Travel<30 Days: No Contact w/Intl Traveler <30 Da: No Traveled to Known Affected Are: No History of Present Illness 42-year-old female with a past medical history significant for myasthenia gravis and avascular necrosis of the right hip presents with an exacerbation of her myasthenia gravis. She states her face and jaw were swelling, and her jaw was locking. This is how she fells when she is having an exacerbation of her myasthenia gravis. She denies any chest pain, sob or trouble breathing. Review of Systems Except as stated in HPI: all other systems reviewed are Neg Past Family Social History Past Medical History Myasthenia gravis Avascular necrosis of the right hip Past Surgical History Thymus removed Bilateral tubal ligation Left chest port placement Tonsillectomy Reported Medications Reported Meds & Active Scripts Active Hydroxyzine HCl 25 Mg Tab 25 Mg PO Q6H PRN 15 Days Mirtazapine 30 Mg Tab 30 Mg PO HS Lomotil (Diphenoxylate-Atropine) 2.5-0.025 Mg Tab 1 Tab PO Q6H PRN 2 Days Ferosul (Ferrous Sulfate) 325 Mg (65 Mg Iron) Tablet 325 Mg PO BID@12,17 30 Days Neurontin (Gabapentin) 300 Mg Cap 300 Mg PO Q8H Mestinon (Pyridostigmine [place]) 60 Mg Tab 120 Mg PO TIDAC Lactinex (Lactobacillus Acidophilus) 1 Chew 1 Tab CHEW DAILY Imitrex (Sumatriptan Succinate) 50 Mg Tab 50 Mg PO NEEDED PRN If a satisfactory response has not been obtained at 2 hours, a second dose may be administered Reported Prednisone 25 Gm Powder Cellcept (Mycophenolate Mofetil) 500 Mg Tab 500 Mg PO TID Aspirin 81 Mg Chew 81 Mg CHEW DAILY Allergies: Coded Allergies: penicillin G (Unverified Allergy, Severe, Anaphylaxis, 02/20/18) promethazine (Unverified Adverse Reaction, Severe, NAUSEOUS, 02/20/18) Active Ordered Medications Current Medications Medications (Trade) Dose Ordered Sig/Gómez Route Start Time Stop Time Status Last Admin Immune Globulin 20 gm/Syringe / Bag 200 ml @ 15.6 mls/hr ONCE ONCE IV 02/21/18 00:00 02/21/18 12:49 02/21/18 01:24 Dextrose 500 ml @ 30 mls/hr Q24H IV 02/20/18 22:30 02/21/18 15:09 02/21/18 01:23 (Benadryl Inj) 50 mg UNSCH PRN IV PUSH 02/20/18 22:30 02/21/18 22:29 (Adrenalin (1:1000) Inj) 0.3 mg Q10M PRN OTHER 02/20/18 22:30 02/21/18 22:29 (NS Flush) 2 ml UNSCH PRN IV FLUSH 02/20/18 23:45 (NS Flush) 2 ml BID IV FLUSH 02/21/18 09:00 (Tylenol) 650 mg Q4H PRN PO 02/20/18 23:45 (Narcan Inj) 0.4 mg UNSCH PRN IV PUSH 02/20/18 23:45 (Aspirin Chew) 81 mg DAILY CHEW 02/21/18 09:00 (Ferrous Sulfate) 325 mg BID@12,17 PO 02/21/18 12:00 (Neurontin) 300 mg Q8HR PO 02/21/18 06:00 (Remeron) 30 mg HS PO 02/21/18 21:00 (Cellcept) 500 mg TID PO 02/21/18 09:00 (Mestinon) 120 mg TIDAC PO 02/21/18 08:00 (Roxicodone) 5 mg Q4H PRN PO 02/21/18 01:45 Family History Father with diabetes mellitus Social History Tobacco use: Denies, Smoked half a pack per day 20 years. Denies alcohol, illicit drugs. Physical Exam Vital Signs Vital Signs Date Time Temp Pulse Resp B/P (MAP) Pulse Ox O2 Delivery O2 Flow Rate FiO2 02/20/18 22:01 92 131/81 02/20/18 21:12 97.7 93 18 131/81 (98) 99 Physical Exam GENERAL: This is a well-nourished, well-developed patient, in no apparent distress. SKIN: No rashes, ecchymoses or lesions. Cool and dry. HEAD: Atraumatic. Normocephalic. EYES: Pupils equal round and reactive. Extraocular motions intact. No scleral icterus. No injection or drainage. CARDIOVASCULAR: Regular rate and rhythm without murmurs, gallops, or rubs. RESPIRATORY: Clear to auscultation. Breath sounds equal bilaterally. No wheezes , rales, or rhonchi. GASTROINTESTINAL: Abdomen soft, non-tender, nondistended. No hepato-splenomegaly , or palpable masses. No guarding. MUSCULOSKELETAL: Extremities without clubbing, cyanosis, or edema. No joint tenderness, effusion, or edema noted. No calf tenderness. NEUROLOGICAL: Awake and alert. Motor and sensory grossly within normal limits. slurred speech due to jaw locking Laboratory Laboratory Tests Test 02/20/18 21:37 White Blood Count 16.9 Red Blood Count 4.49 Hemoglobin 12.8 Hematocrit 38.3 Mean Corpuscular Volume 85.4 Mean Corpuscular Hemoglobin 28.6 Mean Corpuscular Hemoglobin Concent 33.4 Red Cell Distribution Width 22.7 Platelet Count 457 Mean Platelet Volume 7.3 Neutrophils (%) (Auto) 82.4 Lymphocytes (%) (Auto) 11.3 Monocytes (%) (Auto) 5.4 Eosinophils (%) (Auto) 0.3 Basophils (%) (Auto) 0.6 Neutrophils # (Auto) 14.0 Lymphocytes # (Auto) 1.9 Monocytes # (Auto) 0.9 Eosinophils # (Auto) 0.1 Basophils # (Auto) 0.1 CBC Comment AUTO DIFF Differential Comment AUTO DIFF CONFIRMED Blood Urea Nitrogen 13 Creatinine 0.59 Random Glucose 77 Total Protein 6.8 Albumin 3.6 Calcium Level 8.5 Alkaline Phosphatase 47 Aspartate Amino Transf (AST/SGOT) 13 Alanine Aminotransferase (ALT/SGPT) 18 Total Bilirubin 0.4 Sodium Level 142 Potassium Level 3.8 Chloride Level 106 Carbon Dioxide Level 29.3 Anion Gap 7 Estimat Glomerular Filtration Rate 112 Result Diagram: 02/20/18213602/20/182136 Caprini VTE Risk Assessment Caprini VTE Risk Assessment: No/Low Risk (score <= 1) Caprini Risk Assessment Model Point Value = 1 Point Value = 2 Point Value = 3 Point Value = 5 Age 41-60 Minor surgery BMI > 25 kg/m2 Swollen legs Varicose veins or History of unexplained or recurrent spontaneous Oral contraceptives or hormone replacement Sepsis (< 1 month) Serious lung disease, including pneumonia (< 1 month) Abnormal pulmonary function Acute myocardial infarction Congestive heart failure (< 1 month) History of inflammatory bowel disease Medical patient at bed rest Age 61-74 Arthroscopic surgery Major open surgery (> 45 min) Laparoscopic surgery (> 45 min) Malignancy Confined to bed (> 72 hours) Immobilizing plaster cast Central venous access Age >= 75 History of VTE Family history of VTE Factor V Leiden Prothrombin [id number] Lupus anticoagulant Anticardiolipin antibodies Elevated serum homocysteine Heparin-induced thrombocytopenia Other congenital or acquired thrombophilia Stroke (< 1 month) Elective arthroplasty Hip, pelvis, or leg fracture Acute spinal cord injury (< 1 month) Prophylaxis Regimen Total Risk Factor Score Risk Level Prophylaxis Regimen 0-1 Low Early ambulation 2 Moderate Order ONE of the following: *Sequential Compression Device (SCD) *Heparin 5000 units SQ BID 3-4 Higher Order ONE of the following medications: *Heparin 5000 units SQ TID *Enoxaparin/Lovenox 40 mg SQ daily (WT < 150 kg, CrCl > 30 mL/min) *Enoxaparin/Lovenox 30 mg SQ daily (WT < 150 kg, CrCl > 10-29 mL/min) *Enoxaparin/Lovenox 30 mg SQ BID (WT < 150 kg, CrCl > 30 mL/min) AND/OR *Sequential Compression Device (SCD) 5 or more Highest Order ONE of the following medications: *Heparin 5000 units SQ TID (Preferred with Epidurals) *Enoxaparin/Lovenox 40 mg SQ daily (WT < 150 kg, CrCl > 30 mL/min) *Enoxaparin/Lovenox 30 mg SQ daily (WT < 150 kg, CrCl > 10-29 mL/min) *Enoxaparin/Lovenox 30 mg SQ BID (WT < 150 kg, CrCl > 30 mL/min) AND *Sequential Compression Device (SCD) Assessment and Plan Problem List: (1) Myasthenia gravis ICD Code: G70.00 - Myasthenia gravis Status: Acute Assessment and Plan 42-year-old female with a past medical history significant for myasthenia gravis and avascular necrosis of the right hip presents with an exacerbation of her myasthenia gravis. Myasthenia gravis exacerbation -IVIG given in ED -Consult neurology, Dr. Vizcarra -Pain management with PO oxycodone -Cont home CellCept and gabapentin Leukocytosis, likely due to prednisone use, no signs of infection, no fevers -Trend CBC -Will get UA DVT prophylaxis: SCDs Discussed Condition With Patient and RN Physician Certification 2 Midnight Certification Type: Admission for Inpatient Services Order for Inpatient Services The services are ordered in accordance with Medicare regulations or non- Medicare payer requirements, as applicable. In the case of services not specified as inpatient-only, they are appropriately provided as inpatient services in accordance with the 2-midnight benchmark. Estimated LOS (days): 2 days is the estimated time the patient will need to remain in the hospital, assuming treatment plan goals are met and no additional complications. Post-Hospital Plan: Home Dorothy Abraham February 20, 2018 23:30
[2018-02-20] MEDS ORDERED: ACETAMINOPHEN 325 MG TAB PO PRN (23:45)
[2018-02-20] MEDS ORDERED: NALOXONE HCL 0.4 MG/ML AMP IV PUSH PRN (23:45)
[2018-02-21] VITALS (12 sets, daily range): BP systolic 114–134; BP diastolic 63–86; PULSE 73–99; RESP 19–25; TEMP 97.5–98.3; O2SAT 96–100
[2018-02-21] MEDS ORDERED: IMMUNE GLOBULIN INJ 20 GM in SYRINGE/BAG 1 EA IV ONE
[2018-02-21] MEDS ORDERED: CHLORHEXIDINE GLUCONATE 2 % 1 PACK (2 CLOTHS)(extra cloths) TOPICAL PRN (02:30)
[2018-02-21] MEDS: CHLORHEXIDINE GLUCONATE 2 % 1 PACK (2 CLOTHS)(taper/protocol) TOPICAL SCH (03:33)
[2018-02-21] MEDS: GABAPENTIN 300 MG CAP PO SCH ×3 (05:19→21:01)
[2018-02-21 05:42] LABS: AUTOMATED NEUTROPHIL # 12.9 TH/MM3 (1.8-7.7); BASOPHIL # 0.1 TH/MM3 (0-0.2); BASOPHIL % 0.4 % (0.0-2.0); EOSINOPHIL % 0.1 % (0.0-4.0); HEMATOCRIT 39.6 % (35.0-46.0); HEMOGLOBIN 13.1 GM/DL (11.6-15.3); LYMPH % 2.5 % (9.0-44.0); LYMPHOCYTE # 0.3 TH/MM3 (1.0-4.8); MEAN CELL VOLUME 87.3 FL (80.0-100.0); MEAN CORPUSCULAR HEMOGLOBIN 28.8 PG (27.0-34.0); MEAN CORPUSCULAR HGB CONC 33.1 % (32.0-36.0); MEAN PLATELET VOLUME 7.3 FL (7.0-11.0); MONO % 2.2 % (0.0-8.0); MONOCYTE # 0.3 TH/MM3 (0-0.9); NEUT % 94.8 % (16.0-70.0); PLATELET COUNT 458 TH/MM3 (150-450); RED BLOOD COUNT 4.53 MIL/MM3 (4.00-5.30); WHITE BLOOD COUNT 13.6 TH/MM3 (4.0-11.0)
[2018-02-21 05:43] LABS: BILIRUBIN, URINE NEG (NEG); BLOOD, URINE TRACE (NEG); GLUCOSE,URINE NEG (NEG); KETONE, URINE NEG (NEG); MUCUS URINE FEW /lpf (OCC); NITRITE,URINE NEG (NEG); PH, URINE 6.5 (5.0-8.5); SQUAMOUS EPITHELIAL CELL URINE 1 /hpf (0-5); URINE COLOR LIGHT-YELLOW (YELLW/STRAW); URINE LEUKOCYTE ESTERASE NEG (NEG)
[2018-02-21 05:59] LABS: BICARBONATE 26.1 MEQ/L (21.0-32.0); CREATININE 0.63 MG/DL (0.50-1.00)
[2018-02-21 07:27] LABS: OVALOCYTES 1+ (NORMAL)
[2018-02-21] MEDS ORDERED: PYRIDOSTIGMINE BROMIDE 60 MG TAB PO SCH ×2 (08:00→12:00)
[2018-02-21] MEDS: SODIUM CHLORIDE 0.9% FLUSH 10 ML FLUSH IV FLUSH SCH ×2 (08:22→21:01)
[2018-02-21] MEDS: MYCOPHENOLATE MOFETIL 500 MG TAB PO SCH ×3 (08:22→17:41)
[2018-02-21] MEDS: ASPIRIN 81 MG CHEW TAB CHEW SCH (08:22)
[2018-02-21] MEDS ORDERED: PILL SPLITTER OTHER PRN (09:30)
[2018-02-21] MEDS ORDERED: diphenhydrAMINE HCL 25 MG CAP PO SCH (10:00)
[2018-02-21] MEDS ORDERED: SODIUM CHLORID 0.9% 500 ML INJ 500 ML IV SCH (10:00)
[2018-02-21] MEDS ORDERED: ACETAMINOPHEN 325 MG TAB PO SCH (10:00)
--- NOTE | 2018-02-21 10:19 | MB ---
cc: Jayce Dover MD DATE: 02/21/2018 HISTORY OF PRESENT ILLNESS: The patient is well known to neurology with myasthenia gravis. She is seen frequently with exacerbations and the last week she was switched because her Mestinon wasn't lasting enough, to 180 mg extended release Mestinon and then had come off of her 120 mg at 6 a.m., noon, and 6 p.m. immediate release Mestinon and she seemed to get worse and had trouble talking and swallowing and thus came in the hospital. She has tried plasma exchange in January. I had mentioned this, she said she did not want to do that again. She had seen Dr. De La Fuente on 01/31. She has been status post thymectomy. She has been on CellCept. She required intubation. She had been tried on cyclosporine, but had paresthesia. She has been on CellCept and prednisone and recently rituximab and had a reaction to that. She was put on prednisone. She saw psych the last time in here. Recently upped her to 25 mg of prednisone. PAST MEDICAL HISTORY: As above, also depression, anxiety, avascular necrosis of the hip and myasthenia. ALLERGIES: PENICILLIN AND PROMETHAZINE. MEDICATIONS AT HOME: 1. Prednisone 25 mg a day. 2. CellCept 500 t.i.d. 3. 81 of aspirin. 4. Imitrex. 5. Lactinex. 6. Mestinon. 7. 120 extended release Neurontin. 8. Lomotil. 9. Mirtazapine. 10. Hydroxyzine. CURRENT MEDICATIONS: 1. Remeron 30 mg at night. 2. 25 of prednisone. 3. Lomotil. 4. Aspirin. 5. CellCept 500 t.i.d. 6. Mestinon 120 t.i.d. 7. Gabapentin 300 q. 8 h. 8. She got IVIG 200 mL which was 20 grams yesterday. She has an appointment at the [facility] in about 2 or 3 weeks. PHYSICAL EXAM: NECK: On exam, there were no carotid bruits. HEART: Regular rhythm. NEUROLOGIC: She is in no apparent distress. Her voice is strong. Eye closure, I would give it about a 4+/5. Buccal muscles are 4-/5. Triceps, iliopsoas strength are normal bilaterally. She looks like she has plenty of energy. LABORATORY DATA: White count is 13.6. CBC is otherwise normal. Sedimentation rate has been normal in the past. RPR has been negative. Lyme has been negative. Acetylcholine receptor antibody in 2014 was 9.5. MIMI has been negative. She was on vancomycin in January. Basic metabolic profile is normal. LFTs normal. LDL cholesterol has been high at 227. B12 has been normal. B6 is within normal limits. Thiamine has been normal. TSH has been normal. ABG was negative last admission, although on 01/11/2018 she had a pH down to 7.31 with a PaCO2 of 54 and an O2 of 36. IMPRESSION: Myasthenia gravis. The thing to do on her is to give her one extended Mestinon at 6 a.m. and an immediate release at 60 mg at 06:00 a.m., noon, and 6 p.m. and will give her IVIG here for a full 2 g/kg over the course of the next 5 days and then have her followup with the [facility]. The med team should watch her psychiatric situation on the prednisone and in the hospital since she has been on psych before. Jayce Dover MD DJM/MOHSEN , 09:39 AM , 10:18 AM
[2018-02-21] MEDS: FERROUS SULFATE 325 MG (65 MG ELEMENTAL IRON) TAB PO SCH ×2 (10:42→17:41)
[2018-02-21] MEDS: predniSONE 50 MG TAB PO SCH (10:42)
[2018-02-21] MEDS: LACTOBACILLUS ACIDOPHILUS TAB PO SCH (10:42)
[2018-02-21] MEDS: PYRIDOSTIGMINE BROMIDE 60 MG TAB PO SCH ×2 (10:42→17:42)
[2018-02-21] MEDS ORDERED: diphenhydrAMINE HCL 50 MG/ML VIAL IV PUSH PRN (10:45)
[2018-02-21] MEDS ORDERED: EPINEPHrine HCL (1:1000) 1 MG/ML VIAL OTHER PRN (11:00)
[2018-02-21] MEDS ORDERED: DEXTROSE 5% IN WATE 500 ML INJ 500 ML OTHER SCH (11:00)
[2018-02-21] MEDS: DIPHENOXYLATE/ATROPINE 2.5 MG/0.025 MG TAB PO SCH (11:07)
[2018-02-21] MEDS: hydrOXYzine HCL 25 MG TAB PO PRN ×2 (13:36→20:00)
--- NOTE | 2018-02-21 13:59 | HHI.PR ---
Subjective Remarks Follow-up for myasthenia gravis crisis. Patient is currently doing well. Currently on room air. She complains of some facial swelling. No fever chills , chest pain or shortness of breath. Objective Vitals Vital Signs Date Time Temp Pulse Resp B/P (MAP) Pulse Ox O2 Delivery O2 Flow Rate FiO2 02/21/18 06:00 91 02/21/18 04:00 93 02/21/18 04:00 97.5 93 25 126/84 (98) 99 02/21/18 03:30 91 25 126/84 02/21/18 02:00 99 02/21/18 01:24 80 20 112/64 02/21/18 00:28 98.3 83 20 134/86 (102) 100 02/20/18 22:01 92 131/81 02/20/18 21:12 97.7 93 18 131/81 (98) 99 I/O 02/20/18 02/20/18 02/20/18 02/21/18 02/21/18 02/21/18 07:00 15:00 23:00 07:00 15:00 23:00 Intake Total 389 ml Balance 389 ml Intake IV Total 389 ml # Voids 4 # Bowel Movements 0 Result Diagram: 02/21/1851602/21/18516 Objective Remarks GENERAL: Alert, oriented 3, NAD. SKIN: Warm and dry. HEAD: Normocephalic. EYES: No scleral icterus. No injection or drainage. NECK: Supple, trachea midline. No JVD or lymphadenopathy. CARDIOVASCULAR: Regular rate and rhythm without murmurs, gallops, or rubs. RESPIRATORY: Breath sounds equal bilaterally. No accessory muscle use. GASTROINTESTINAL: Abdomen soft, non-tender, nondistended. MUSCULOSKELETAL: No cyanosis, or edema. BACK: Nontender without obvious deformity. No CVA tenderness. Procedures None A/P Problem List: (1) Myasthenia gravis ICD Code: G70.00 - Myasthenia gravis Status: Acute Assessment and Plan 42-year-old female with a past medical history significant for myasthenia gravis and avascular necrosis of the right hip presents with an exacerbation of her myasthenia gravis. Myasthenia gravis exacerbation -IVIG given in ED. Currently on IVIG protocol per neurology. Neurology also started patient on pyridostigmine 120 mg 3 times daily at 6 AM, 12 PM and 6 PM. -Pain management with PO oxycodone -Cont home CellCept and gabapentin. Continue prednisone 25 mg daily. Leukocytosis, likely due to prednisone use, no signs of infection, no fevers -Trend CBC -Urinalysis unremarkable. Patient can be transferred to the floor. Full code. SCDs. Judith Mg DO February 21, 2018 1:59 pm
[2018-02-21] MEDS: MIRTAZAPINE 15 MG TAB PO SCH (21:02)
[2018-02-22] VITALS (11 sets, daily range): BP systolic 111–136; BP diastolic 68–94; PULSE 63–101; RESP 18–20; TEMP 97.6–98.2; O2SAT 95–100
[2018-02-22] MEDS: SODIUM CHLORID 0.9% 500 ML INJ 500 ML IV SCH (03:15)
[2018-02-22] MEDS: ACETAMINOPHEN 325 MG TAB PO SCH (03:15)
[2018-02-22] MEDS: diphenhydrAMINE HCL 25 MG CAP PO SCH (03:15)
[2018-02-22] MEDS: CHLORHEXIDINE GLUCONATE 2 % 1 PACK (2 CLOTHS)(taper/protocol) TOPICAL SCH (04:00)
[2018-02-22] MEDS ORDERED: IMMUNE GLOBULIN INJ 20 GM in SYRINGE/BAG 1 EA IV SCH (04:00)
[2018-02-22] MEDS: DEXTROSE 5% IN WATE 500 ML INJ 500 ML OTHER SCH ×2 (04:25→20:40)
[2018-02-22] MEDS ORDERED: PYRIDOSTIGMINE 180 MG PO SCH (06:00)
[2018-02-22] MEDS: PYRIDOSTIGMINE BROMIDE 60 MG TAB PO SCH ×2 (06:00→12:16)
[2018-02-22] MEDS: GABAPENTIN 300 MG CAP PO SCH ×3 (06:54→20:28)
--- NOTE | 2018-02-22 07:48 | HHI.PR ---
Subjective Remarks hospital out of mestinin Objective Vital Signs Date Time Temp Pulse Resp B/P (MAP) Pulse Ox O2 Delivery O2 Flow Rate FiO2 02/22/18 06:00 67 02/22/18 04:45 97.6 69 20 136/85 (102) 100 02/22/18 04:23 87 26 134/82 02/22/18 04:21 20 02/22/18 04:00 97.9 66 20 134/82 (99) 99 02/22/18 04:00 66 02/22/18 02:00 69 02/22/18 00:00 98.0 63 18 111/68 (82) 98 02/22/18 00:00 63 02/21/18 22:00 78 02/21/18 20:00 73 02/21/18 20:00 97.7 73 20 120/69 (86) 98 02/21/18 18:00 97 02/21/18 16:00 81 02/21/18 16:00 98.0 81 19 114/63 (80) 96 02/21/18 14:00 87 02/21/18 12:00 88 02/21/18 12:00 98.2 88 22 117/67 (84) 99 02/21/18 10:00 85 02/21/18 08:00 98.3 125/77 (93) 99 02/21/18 08:00 73 I/O 02/21/18 02/21/18 02/21/18 02/22/18 02/22/18 02/22/18 07:00 15:00 23:00 07:00 15:00 23:00 Intake Total 389 ml 725 ml 1220 ml Balance 389 ml 725 ml 1220 ml Intake Oral 725 ml 720 ml IV Total 389 ml 500 ml # Voids 4 3 3 # Bowel Movements 0 0 0 Result Diagram: 02/21/1851602/21/18516 Objective Remarks facial mm weaker off mestinon Assessment and Plan Assessment and Plan imp mg ivigx2 mestinon i [facility] Jayce Dover MD February 22, 2018 07:48
[2018-02-22] MEDS: DIPHENOXYLATE/ATROPINE 2.5 MG/0.025 MG TAB PO SCH (09:38)
[2018-02-22] MEDS: hydrOXYzine HCL 25 MG TAB PO PRN ×2 (09:39→17:33)
[2018-02-22] MEDS: predniSONE 50 MG TAB PO SCH (09:39)
[2018-02-22] MEDS: ASPIRIN 81 MG CHEW TAB CHEW SCH (09:39)
[2018-02-22] MEDS: LACTOBACILLUS ACIDOPHILUS TAB PO SCH (09:39)
[2018-02-22] MEDS: SODIUM CHLORIDE 0.9% FLUSH 10 ML FLUSH IV FLUSH SCH ×2 (09:40→20:29)
[2018-02-22] MEDS: MYCOPHENOLATE MOFETIL 500 MG TAB PO SCH ×3 (09:44→17:32)
[2018-02-22] MEDS: FERROUS SULFATE 325 MG (65 MG ELEMENTAL IRON) TAB PO SCH ×2 (12:16→16:02)
--- NOTE | 2018-02-22 14:18 | HHI.PR ---
Subjective Remarks Follow-up for myasthenia gravis crisis. Patient is currently doing well. However , patient is somewhat upset that they started IVIG at 4AM and Mestinon was not available at the hospital pharmacy. Patient's family member had to go home to get it. No CP, SOB, fever, chills. On room air. Objective Vitals Vital Signs Date Time Temp Pulse Resp B/P (MAP) Pulse Ox O2 Delivery O2 Flow Rate FiO2 02/22/18 13:12 97.9 84 20 130/79 (96) 96 02/22/18 08:00 98.0 84 19 126/94 (105) 97 02/22/18 06:00 67 02/22/18 04:45 97.6 69 20 136/85 (102) 100 02/22/18 04:23 87 26 134/82 02/22/18 04:21 20 02/22/18 04:00 97.9 66 20 134/82 (99) 99 02/22/18 04:00 66 02/22/18 02:00 69 02/22/18 00:00 98.0 63 18 111/68 (82) 98 02/22/18 00:00 63 02/21/18 22:00 78 02/21/18 20:00 73 02/21/18 20:00 97.7 73 20 120/69 (86) 98 02/21/18 18:00 97 02/21/18 16:00 81 02/21/18 16:00 98.0 81 19 114/63 (80) 96 I/O 02/21/18 02/21/18 02/21/18 02/22/18 02/22/18 02/22/18 07:00 15:00 23:00 07:00 15:00 23:00 Intake Total 389 ml 725 ml 1220 ml Balance 389 ml 725 ml 1220 ml Intake Oral 725 ml 720 ml IV Total 389 ml 500 ml # Voids 4 3 3 # Bowel Movements 0 0 0 Result Diagram: 02/21/1851602/21/18516 Objective Remarks GENERAL: Alert, oriented 3, NAD. Speech is somewhat slurred, appears to be slightly worse than yesterday. SKIN: Warm and dry. HEAD: Normocephalic. EYES: No scleral icterus. No injection or drainage. NECK: Supple, trachea midline. No JVD or lymphadenopathy. CARDIOVASCULAR: Regular rate and rhythm without murmurs, gallops, or rubs. RESPIRATORY: Breath sounds equal bilaterally. No accessory muscle use. GASTROINTESTINAL: Abdomen soft, non-tender, nondistended. MUSCULOSKELETAL: No cyanosis, or edema. BACK: Nontender without obvious deformity. No CVA tenderness. Procedures None A/P Problem List: (1) Myasthenia gravis ICD Code: G70.00 - Myasthenia gravis Status: Acute Assessment and Plan 42-year-old female with a past medical history significant for myasthenia gravis and avascular necrosis of the right hip presents with an exacerbation of her myasthenia gravis. Myasthenia gravis exacerbation -IVIG given in ED. Currently on IVIG protocol per neurology. Neurology also started patient on pyridostigmine 120 mg 3 times daily at 6 AM, 12 PM and 6 PM. -Pain management with PO oxycodone -Cont home CellCept and gabapentin. Continue prednisone 25 mg daily. -Will d/w with Pharmacy regarding IVIG treatment at a later time - will give IVIG at 8AM. Leukocytosis, likely due to prednisone use, no signs of infection, no fevers -Urinalysis unremarkable. Full code. SCDs. Judith Mg DO February 22, 2018 14:18
[2018-02-22] MEDS ORDERED: PYRIDOSTIGMINE BROMIDE 60 MG TAB PO ONE (18:00)
[2018-02-22] MEDS: MIRTAZAPINE 15 MG TAB PO SCH (20:28)
[2018-02-23] VITALS (9 sets, daily range): BP systolic 114–139; BP diastolic 61–83; PULSE 67–85; RESP 16–20; TEMP 97.6–98.2; O2SAT 97–100
[2018-02-23] MEDS: CHLORHEXIDINE GLUCONATE 2 % 1 PACK (2 CLOTHS)(taper/protocol) TOPICAL SCH (03:08)
[2018-02-23] MEDS: GABAPENTIN 300 MG CAP PO SCH ×3 (05:08→20:47)
[2018-02-23] MEDS: PYRIDOSTIGMINE 180 MG PO SCH (05:26)
[2018-02-23] MEDS: PYRIDOSTIGMINE BROMIDE 60 MG TAB PO SCH ×3 (05:26→17:38)
[2018-02-23] MEDS: ACETAMINOPHEN 325 MG TAB PO SCH (06:44)
[2018-02-23] MEDS: diphenhydrAMINE HCL 25 MG CAP PO SCH (06:44)
[2018-02-23] MEDS: SODIUM CHLORID 0.9% 500 ML INJ 500 ML IV SCH (06:44)
--- NOTE | 2018-02-23 07:36 | HHI.PR ---
Objective Vital Signs Date Time Temp Pulse Resp B/P (MAP) Pulse Ox O2 Delivery O2 Flow Rate FiO2 02/23/18 04:00 67 02/23/18 04:00 97.6 72 18 114/73 (87) 98 02/23/18 00:00 97.6 70 18 121/65 (83) 97 02/23/18 00:00 83 02/22/18 20:00 97.9 77 18 129/72 (91) 95 02/22/18 20:00 74 02/22/18 16:29 89 02/22/18 16:00 98.2 78 20 118/74 (89) 97 02/22/18 13:12 97.9 84 20 130/79 (96) 96 02/22/18 12:00 101 02/22/18 08:00 98.0 84 19 126/94 (105) 97 I/O 02/22/18 02/22/18 02/22/18 02/23/18 02/23/18 02/23/18 07:00 15:00 23:00 07:00 15:00 23:00 Intake Total 1220 ml 640 ml Balance 1220 ml 640 ml Intake Oral 720 ml 640 ml IV Total 500 ml # Voids 3 5 # Bowel Movements 0 1 Result Diagram: 02/21/1851602/21/18516 Objective Remarks facial mm better upa and around speech clear nad Assessment and Plan Assessment and Plan imp mg ivigx3 mestinon now on 180er 6am and 60 tid with that see how worksas far as wearing off can dc after 5th ivig dose Jayce Dover MD February 23, 2018 07:36
[2018-02-23] MEDS: LACTOBACILLUS ACIDOPHILUS TAB PO SCH (07:45)
[2018-02-23] MEDS: MYCOPHENOLATE MOFETIL 500 MG TAB PO SCH ×3 (07:46→17:39)
[2018-02-23] MEDS: predniSONE 50 MG TAB PO SCH (07:46)
[2018-02-23] MEDS: hydrOXYzine HCL 25 MG TAB PO PRN ×2 (07:47→15:32)
[2018-02-23] MEDS: DIPHENOXYLATE/ATROPINE 2.5 MG/0.025 MG TAB PO SCH (07:47)
[2018-02-23] MEDS: SODIUM CHLORIDE 0.9% FLUSH 10 ML FLUSH IV FLUSH SCH ×2 (07:48→20:47)
[2018-02-23] MEDS: ASPIRIN 81 MG CHEW TAB CHEW SCH (07:48)
[2018-02-23] MEDS: IMMUNE GLOBULIN INJ 20 GM in SYRINGE/BAG 1 EA IV SCH (07:50)
[2018-02-23] MEDS: DEXTROSE 5% IN WATE 500 ML INJ 500 ML OTHER SCH ×2 (07:54→12:36)
[2018-02-23] MEDS: FERROUS SULFATE 325 MG (65 MG ELEMENTAL IRON) TAB PO SCH ×2 (13:05→17:39)
--- NOTE | 2018-02-23 17:26 | HHI.PR ---
Subjective Remarks Follow-up for myasthenia gravis crisis. Speech is much improved. Slept better. No chest pain, SOB, fever, chills. Objective Vitals Vital Signs Date Time Temp Pulse Resp B/P (MAP) Pulse Ox O2 Delivery O2 Flow Rate FiO2 02/23/18 16:00 97.8 78 20 121/76 (91) 98 02/23/18 12:00 98.1 80 20 126/63 (84) 97 02/23/18 10:15 73 02/23/18 09:08 98.2 85 16 117/70 (86) 99 02/23/18 08:36 70 16 133/68 (89) 100 02/23/18 08:11 98.0 70 16 126/61 (82) 99 02/23/18 08:11 98.1 78 20 139/83 (101) 98 02/23/18 07:50 78 17 138/73 02/23/18 04:00 67 02/23/18 04:00 97.6 72 18 114/73 (87) 98 02/23/18 00:00 97.6 70 18 121/65 (83) 97 02/23/18 00:00 83 02/22/18 20:00 97.9 77 18 129/72 (91) 95 02/22/18 20:00 74 I/O 02/22/18 02/22/18 02/22/18 02/23/18 02/23/18 02/23/18 07:00 15:00 23:00 07:00 15:00 23:00 Intake Total 1220 ml 640 ml 600 ml Balance 1220 ml 640 ml 600 ml Intake Oral 720 ml 640 ml 600 ml IV Total 500 ml # Voids 3 5 3 # Bowel Movements 0 1 Result Diagram: 02/21/1851602/21/18516 Objective Remarks GENERAL: Alert, oriented 3, NAD. Speech is somewhat slurred, appears to be slightly worse than yesterday. SKIN: Warm and dry. HEAD: Normocephalic. EYES: No scleral icterus. No injection or drainage. NECK: Supple, trachea midline. No JVD or lymphadenopathy. CARDIOVASCULAR: Regular rate and rhythm without murmurs, gallops, or rubs. RESPIRATORY: Breath sounds equal bilaterally. No accessory muscle use. GASTROINTESTINAL: Abdomen soft, non-tender, nondistended. MUSCULOSKELETAL: No cyanosis, or edema. BACK: Nontender without obvious deformity. No CVA tenderness. Procedures None A/P Problem List: (1) Myasthenia gravis ICD Code: G70.00 - Myasthenia gravis Status: Acute Assessment and Plan 42-year-old female with a past medical history significant for myasthenia gravis and avascular necrosis of the right hip presents with an exacerbation of her myasthenia gravis. Myasthenia gravis exacerbation -IVIG given in ED. Currently on IVIG protocol per neurology. Neurology also started patient on pyridostigmine -Pain management with PO oxycodone -Cont home CellCept and gabapentin. Continue prednisone 25 mg daily. -Per neurology, IVIG until 02/25/2018 after which patient can be discharged - hopefully in the PM on 02/25/2018. Leukocytosis, likely due to prednisone use, no signs of infection, no fevers -Urinalysis unremarkable. Full code. SCDs. Judith Mg DO February 23, 2018 17:26
[2018-02-23] MEDS: MIRTAZAPINE 15 MG TAB PO SCH (20:47)
[2018-02-24] VITALS: BP_SYST 113; BP_SYST 124; BP_DIAS 60; BP_DIAS 84; PULSE 68; PULSE 99; RESP 18; TEMP 97.3; TEMP 97.4; O2SAT 97
[2018-02-24 04:00] VITALS: BP 128/80; PULSE 74; RESP 18; TEMP 97.1; O2SAT 98
[2018-02-24] MEDS: CHLORHEXIDINE GLUCONATE 2 % 1 PACK (2 CLOTHS)(taper/protocol) TOPICAL SCH (04:30)
[2018-02-24] MEDS: PYRIDOSTIGMINE BROMIDE 60 MG TAB PO SCH ×3 (05:32→18:01)
[2018-02-24] MEDS: PYRIDOSTIGMINE 180 MG PO SCH (05:32)
[2018-02-24] MEDS: diphenhydrAMINE HCL 25 MG CAP PO SCH (06:27)
[2018-02-24] MEDS: GABAPENTIN 300 MG CAP PO SCH ×3 (06:28→20:18)
[2018-02-24] MEDS: ACETAMINOPHEN 325 MG TAB PO SCH (06:28)
[2018-02-24] MEDS: SODIUM CHLORID 0.9% 500 ML INJ 500 ML IV SCH (06:29)
[2018-02-24] MEDS: IMMUNE GLOBULIN INJ 20 GM in SYRINGE/BAG 1 EA IV SCH (08:00)
[2018-02-24] MEDS: DEXTROSE 5% IN WATE 500 ML INJ 500 ML OTHER SCH ×2 (08:02→22:40)
[2018-02-24] MEDS: predniSONE 50 MG TAB PO SCH (08:08)
[2018-02-24] MEDS: DIPHENOXYLATE/ATROPINE 2.5 MG/0.025 MG TAB PO SCH (08:08)
[2018-02-24] MEDS: MYCOPHENOLATE MOFETIL 500 MG TAB PO SCH ×3 (08:08→18:01)
[2018-02-24] MEDS: ASPIRIN 81 MG CHEW TAB CHEW SCH (08:08)
[2018-02-24] MEDS: LACTOBACILLUS ACIDOPHILUS TAB PO SCH (08:08)
[2018-02-24] MEDS: SODIUM CHLORIDE 0.9% FLUSH 10 ML FLUSH IV FLUSH SCH ×2 (08:09→20:19)
[2018-02-24 08:16] VITALS: BP 126/70; PULSE 70; RESP 20; TEMP 98.1; O2SAT 98
[2018-02-24] MEDS: clonazePAM 0.5 MG TAB PO SCH ×2 (09:48→18:01)
--- NOTE | 2018-02-24 10:53 | HHI.PR ---
Subjective Remarks Follow-up for myasthenia gravis crisis. Patient is currently doing well. She had a good night sleep. However she feels that the hydroxyzine is not working for her anxiety. She reports multiple stress factors in her life. She is planning to see a counselor as well as a psychiatrist in the outpatient setting. Objective Vitals Vital Signs Date Time Temp Pulse Resp B/P (MAP) Pulse Ox O2 Delivery O2 Flow Rate FiO2 02/24/18 08:16 98.1 70 20 126/70 (88) 98 02/24/18 08:00 70 18 126/70 02/24/18 04:00 97.1 74 18 128/80 (96) 98 02/24/18 00:00 97.4 68 18 113/60 (77) 97 02/23/18 20:00 97.8 81 18 122/68 (86) 98 02/23/18 16:00 97.8 78 20 121/76 (91) 98 02/23/18 12:00 98.1 80 20 126/63 (84) 97 I/O 02/23/18 02/23/18 02/23/18 02/24/18 02/24/18 02/24/18 07:00 15:00 23:00 07:00 15:00 23:00 Intake Total 640 ml 600 ml Balance 640 ml 600 ml Intake Oral 640 ml 600 ml # Voids 5 3 2 3 # Bowel Movements 1 Result Diagram: 02/21/1851602/21/18516 Objective Remarks GENERAL: Alert, oriented 3, NAD. Speech is somewhat slurred, appears to be slightly worse than yesterday. SKIN: Warm and dry. HEAD: Normocephalic. EYES: No scleral icterus. No injection or drainage. NECK: Supple, trachea midline. No JVD or lymphadenopathy. CARDIOVASCULAR: Regular rate and rhythm without murmurs, gallops, or rubs. RESPIRATORY: Breath sounds equal bilaterally. No accessory muscle use. GASTROINTESTINAL: Abdomen soft, non-tender, nondistended. MUSCULOSKELETAL: No cyanosis, or edema. BACK: Nontender without obvious deformity. No CVA tenderness. Procedures None A/P Problem List: (1) Myasthenia gravis ICD Code: G70.00 - Myasthenia gravis Status: Acute Assessment and Plan 42-year-old female with a past medical history significant for myasthenia gravis and avascular necrosis of the right hip presents with an exacerbation of her myasthenia gravis. Myasthenia gravis exacerbation -IVIG given in ED. Currently on IVIG protocol per neurology. Neurology also started patient on pyridostigmine -Pain management with PO oxycodone -Cont home CellCept and gabapentin. Continue prednisone 25 mg daily. -Per neurology, IVIG until 02/25/2018 after which patient can be discharged - hopefully in the PM on 02/25/2018. Anxiety -we will DC hydroxyzine and start clonazepam 0.5 mg every 8 hours as needed Stress -patient has multiple stress factors in life. She is planning to follow- up with a counselor as well as a psychiatrist. Full code. SCDs. Judith Mg DO February 24, 2018 10:53 am
[2018-02-24 11:18] VITALS: BP 125/69; PULSE 79; RESP 20; TEMP 97.9; O2SAT 98
[2018-02-24] MEDS: FERROUS SULFATE 325 MG (65 MG ELEMENTAL IRON) TAB PO SCH ×2 (12:05→18:01)
[2018-02-24 16:02] VITALS: BP 126/93; PULSE 87; RESP 20; TEMP 98.7; O2SAT 97
[2018-02-24 20:00] VITALS: BP 125/73; PULSE 84; RESP 18; TEMP 98; O2SAT 96
[2018-02-24] MEDS: MIRTAZAPINE 15 MG TAB PO SCH (20:19)
[2018-02-24] MEDS ORDERED: CLON.5 PO (22:35)
[2018-02-25] VITALS: BP 120/74; PULSE 86; RESP 16; TEMP 98.2; O2SAT 97
[2018-02-25] MEDS: clonazePAM 0.5 MG TAB PO SCH ×2 (01:18→10:12)
[2018-02-25 04:00] VITALS: BP 121/66; PULSE 89; RESP 18; TEMP 97.2; O2SAT 97
[2018-02-25] MEDS: CHLORHEXIDINE GLUCONATE 2 % 1 PACK (2 CLOTHS)(taper/protocol) TOPICAL SCH (04:00)
[2018-02-25] MEDS: GABAPENTIN 300 MG CAP PO SCH (06:25)
[2018-02-25] MEDS: ACETAMINOPHEN 325 MG TAB PO SCH (06:26)
[2018-02-25] MEDS: diphenhydrAMINE HCL 25 MG CAP PO SCH (06:26)
[2018-02-25] MEDS: PYRIDOSTIGMINE BROMIDE 60 MG TAB PO SCH ×2 (06:26→11:53)
[2018-02-25] MEDS: PYRIDOSTIGMINE 180 MG PO SCH (06:27)
[2018-02-25] MEDS: SODIUM CHLORID 0.9% 500 ML INJ 500 ML IV SCH (06:28)
--- NOTE | 2018-02-25 07:36 | HHI.PR ---
Subjective Remarks wears off 4 am Objective Vital Signs Date Time Temp Pulse Resp B/P (MAP) Pulse Ox O2 Delivery O2 Flow Rate FiO2 02/25/18 04:00 97.2 89 18 121/66 (84) 97 02/25/18 00:00 98.2 86 16 120/74 (89) 97 02/24/18 20:00 98.0 84 18 125/73 (90) 96 02/24/18 16:02 98.7 87 20 126/93 (104) 97 02/24/18 11:18 97.9 79 20 125/69 (87) 98 02/24/18 08:16 98.1 70 20 126/70 (88) 98 02/24/18 08:00 70 18 126/70 I/O 02/24/18 02/24/18 02/24/18 02/25/18 02/25/18 02/25/18 07:00 15:00 23:00 07:00 15:00 23:00 Intake Total 775 ml 720 ml Balance 775 ml 720 ml Intake Oral 720 ml IV Total 775 ml # Voids 3 5 4 # Bowel Movements 3 Result Diagram: 02/21/1851602/21/18516 Objective Remarks facial mm better up and around speech a little hoarse nad Assessment and Plan Assessment and Plan imp mg ivigx5 today mestinon now on 180er 6am and 60 tid with that and will give extra one at 11pm from now ion less wearing off can dc after 5th ivig dose today claribel ramesh and dr costa make sure ua and bmp nl today b4 dc Jayce Dover MD February 25, 2018 07:36
[2018-02-25] MEDS: IMMUNE GLOBULIN INJ 20 GM in SYRINGE/BAG 1 EA IV SCH (07:56)
[2018-02-25] MEDS: ASPIRIN 81 MG CHEW TAB CHEW SCH (07:57)
[2018-02-25] MEDS: MYCOPHENOLATE MOFETIL 500 MG TAB PO SCH ×2 (07:57→11:53)
[2018-02-25] MEDS: DIPHENOXYLATE/ATROPINE 2.5 MG/0.025 MG TAB PO SCH (07:57)
[2018-02-25] MEDS: LACTOBACILLUS ACIDOPHILUS TAB PO SCH (07:57)
[2018-02-25] MEDS: predniSONE 50 MG TAB PO SCH (07:57)
[2018-02-25] MEDS: DEXTROSE 5% IN WATE 500 ML INJ 500 ML OTHER SCH (08:00)
[2018-02-25] MEDS: SODIUM CHLORIDE 0.9% FLUSH 10 ML FLUSH IV FLUSH SCH (08:01)
[2018-02-25 08:23] VITALS: BP 144/75; PULSE 84; RESP 20; TEMP 97.5; O2SAT 97
[2018-02-25 08:32] LABS: BILIRUBIN, URINE NEG (NEG); BLOOD, URINE TRACE (NEG); GLUCOSE,URINE NEG (NEG); KETONE, URINE NEG (NEG); NITRITE,URINE NEG (NEG); SQUAMOUS EPITHELIAL CELL URINE <1 /hpf (0-5); URINE COLOR LIGHT-YELLOW (YELLW/STRAW); URINE LEUKOCYTE ESTERASE NEG (NEG)
[2018-02-25 08:55] LABS: BICARBONATE 32.4 MEQ/L (21.0-32.0); CALCIUM 8.7 MG/DL (8.5-10.1); CREATININE 0.61 MG/DL (0.50-1.00)
--- NOTE | 2018-02-25 11:22 | HHI.DS ---
Discharge Summary Admission Date February 20, 2018 at 11:16 pm Discharge Date: February 25, 2018 Admitting Diagnosis Myasthenia Gravis Exacerbation (1) Myasthenia gravis ICD Code: G70.00 - Myasthenia gravis Status: Acute Procedures None Brief History - From Admission 42-year-old female with a past medical history significant for myasthenia gravis and avascular necrosis of the right hip presents with an exacerbation of her myasthenia gravis. She states her face and jaw were swelling, and her jaw was locking. This is how she fells when she is having an exacerbation of her myasthenia gravis. She denies any chest pain, sob or trouble breathing. CBC/BMP: 02/21/18 0517 02/25/18 0810 Significant Findings Laboratory Tests Test 02/25/18 08:10 02/25/18 08:12 Carbon Dioxide Level 32.4 MEQ/L (21.0-32.0) Anion Gap 4 MEQ/L (5-15) Urine Occult Blood TRACE (NEG) PE at Discharge GENERAL: Alert, oriented 3, NAD. Speech is somewhat slurred, appears to be slightly worse than yesterday. SKIN: Warm and dry. HEAD: Normocephalic. EYES: No scleral icterus. No injection or drainage. NECK: Supple, trachea midline. No JVD or lymphadenopathy. CARDIOVASCULAR: Regular rate and rhythm without murmurs, gallops, or rubs. RESPIRATORY: Breath sounds equal bilaterally. No accessory muscle use. GASTROINTESTINAL: Abdomen soft, non-tender, nondistended. MUSCULOSKELETAL: No cyanosis, or edema. BACK: Nontender without obvious deformity. No CVA tenderness. Pt update on day of discharge Patient is currently doing well. Denies any chest pain, shortness of breath, fever or chills. Hospital Course 42-year-old female with a past medical history significant for myasthenia gravis and avascular necrosis of the right hip presents with an exacerbation of her myasthenia gravis. Myasthenia gravis exacerbation -IVIG given in ED. Currently on IVIG protocol per neurology. Neurology also started patient on pyridostigmine -Pain management with PO oxycodone -Cont home CellCept and gabapentin. Continue prednisone 25 mg daily. -Per neurology, Patient can be discharged after IVIG treatment today. BMP and UA reviewed and largely unremarkable. Anxiety -discontinued hydroxyzine and started clonazepam 0.5 mg every 8 hours as needed Stress -patient has multiple stress factors in life. She is planning to follow- up with a counselor as well as a psychiatrist. Pt Condition on Discharge: Good Discharge Disposition: Discharge Home Discharge Time: <= 30 minutes Discharge Instructions DIET: Follow Instructions for: As Tolerated, No Restrictions Activities you can perform: Regular-No Restrictions Follow up Referrals: Neurology - 2 Weeks PCP Follow-up - 1 Week New Medications: Clonazepam (Klonopin) 0.5 Mg Tab 0.5 MG PO Q8H for Anxiety and/or Insomnia, #30 TAB Continued Medications: Aspirin (Aspirin) 81 Mg Chew 81 MG CHEW DAILY, TAB 0 Refills Diphenoxylate-Atropine (Lomotil) 2.5-0.025 Mg Tab 1 TAB PO Q6H PRN for DIARRHEA for 2 Days, #8 TAB 0 Refills Ferrous Sulfate (Ferosul) 325 Mg (65 Mg Iron) Tablet 325 MG PO BID@12,17 for irondef for 30 Days, #60 TAB Gabapentin (Neurontin) 300 Mg Cap 300 MG PO Q8H, #90 CAP Lactobacillus Acidophilus (Lactinex) 1 Chew 1 TAB CHEW DAILY for Nutritional Supplement, #30 TAB 0 Refills Mirtazapine (Mirtazapine) 30 Mg Tab 30 MG PO HS for Depression Control, #30 TAB 0 Refills Mycophenolate (Cellcept) 500 Mg Tab 500 MG PO TID for Immunosuppression, #120 TAB 0 Refills Prednisone (Prednisone) 25 Gm Powder Pyridostigmine (Mestinon) 60 Mg Tab 120 MG PO TIDAC for Manage Myastenia Gravis, #360 TAB 0 Refills Sumatriptan (Imitrex) 50 Mg Tab 50 MG PO as needed PRN for HEADACHE, #30 TAB 0 Refills If a satisfactory response has not been obtained at 2 hours, a second dose may be administered Discontinued Medications: Hydroxyzine HCl (Hydroxyzine HCl) 25 Mg Tab 25 MG PO Q6H PRN for MODERATE TO SEVERE ANXIETY for 15 Days, #60 TAB Judith Mg DO February 25, 2018 11:22
[2018-02-25] MEDS: FERROUS SULFATE 325 MG (65 MG ELEMENTAL IRON) TAB PO SCH (11:53)
[2018-02-25 11:56] VITALS: BP 143/67; PULSE 116; RESP 20; TEMP 98.4; O2SAT 96
== END 2018-02-25 12:07 | disposition home or self-care (01) | DRG 57 ==
LOC: NEPC 21:00 → NEDA 23:16 → HIMN 02-21 00:15 → N05B 02-22 08:26
PROVIDERS: ADMIT Hospitalist; ATTEND Hospitalist
DX: G70.01 Myasthenia gravis with (acute) exacerbation (principal); E89.89 Other postprocedural endocrine and metabolic complications and disorders; D72.829 Elevated white blood cell count, unspecified; Z87.891 Personal history of nicotine dependence; T38.0X5A Adverse effect of glucocorticoids and synthetic analogues, initial encounter; Z88.8 Allergy status to other drugs, medicaments and biological substances; F41.9 Anxiety disorder, unspecified; F43.9 Reaction to severe stress, unspecified; Z79.82 Long term (current) use of aspirin; Z88.0 Allergy status to penicillin; Z79.52 Long term (current) use of systemic steroids
CPT/HCPCS: 80048; 80053; 81001; 85025; 87641; 96361; 96372; 96374; 96375; J0171; J1200; J1459; J2930; J7040; J7060; J7512; J7517

== ENCOUNTER 2018-04-17 18:41 | Inpatient (IN) ==
--- NOTE | 2018-04-17 20:28 | ED ---
HPI General Chief complaint: Neuro Symptoms/Deficit Stated complaint: Medical Time Seen by Provider: 04/17/18 20:24 Source: patient and family Limitations: no limitations History of Present Illness HPI narrative: The patient is a 43 year old female who presents to the [facility] emergency department with a history of increased weakness that began on Wednesday. The patient has a history of myasthenia gravis followed by , a local neurologist, as an outpatient. The patient reports that the weakness has been progressive since the onset. She reports that she is now having difficulty swallowing with generalized weakness of her upper and lower extremities. She reports that her [id number]-ril has been helping to care for her throughout the day today as she has not even been able to get up off the toilet when she goes to the bathroom. She reports that she has not eaten any solids today she has difficulty moving her arms to bring the food to her mouth. Her psxrtb-cz-ept reports that she did take her medications with assistance today. She reports that she believes that this myasthenia gravis exacerbation began because she did not receive her usual IVIG medication regimen this past month. This past month was the first month that she received it at home. She reports that an infusion home health nurse came out to administer it on March 28 and March 29. She reports that she normally receives a 5 day regimen at 20 mg per day, however the medication order was not placed correctly and she only received 2 days. They were attempting to wait to administer her usual dose for 5 days this month. She reports that it was scheduled to be done on , however she was unable to care for herself at home and was concerned that the symptoms were worsening, therefore she came in for evaluation and treatment. She reports that she has been drinking fluids well. She reports having urinary frequency that is chronic, however no dysuria or urinary. She denies having any nausea or vomiting. She reports having chronic diarrhea as a side effect of 1 of her myasthenia gravis medications, therefore she does take Lomotil daily at home. The patient denies any history of fever, cough, congestion, neck pain, chest pain, shortness of breath, abdominal pain, vomiting, diarrhea, urinary symptoms , or neurologic symptoms. Onset (ago): day(s) (3 days ago) Related Data Home Medications Medication Instructions Recorded Confirmed Lactobacillus acidoph-L.bulgar 3 tab PO DAILY 04/17/18 04/17/18 [Floranex] aspirin [Aspir-81] 81 mg PO DAILY 04/17/18 04/17/18 butalbital-acetaminophen See Label Instructions .ROUTE 04/17/18 04/17/18 .COMPLEX gabapentin 300 mg PO QPM 04/17/18 04/17/18 hydroxyzine HCl 25 mg PO QID PRN 04/17/18 04/17/18 mirtazapine 45 mg PO DAILY 04/17/18 04/17/18 mycophenolate mofetil [CellCept] 500 mg/m2 PO TID 04/17/18 04/17/18 nabumetone 750 mg PO BID 04/17/18 04/17/18 prednisone 20 mg PO DAILY 04/17/18 04/17/18 pyridostigmine bromide 180 mg PO BID 04/17/18 04/17/18 sumatriptan succinate 50 mg PO Q2-4H PRN 04/17/18 04/17/18 Allergies Allergy/AdvReac Type Severity Reaction Status Date / Time penicillin G Allergy Severe Anaphylaxis Unverified 02/20/18 21:11 promethazine AdvReac Severe NAUSEOUS Unverified 02/20/18 21:11 Review of Systems ROS Unobtainable All other systems reviewed negative except as stated in HPI Constitutional Denies fever(s) Eyes Denies change in vision ENT Denies headache(s) and Denies nasal congestion Cardiovascular Denies chest pain Respiratory Denies cough and Denies dyspnea Gastrointestinal Denies abdominal pain, Reports diarrhea (Reportedly chronic), Denies nausea and Denies vomiting Genitourinary Reports urinary frequency (Reportedly chronic) and Denies difficulty voiding Musculoskeletal Denies myalgias Integumentary/Breasts Denies rash Neurologic Denies headache(s), Reports weakness and Reports other (Difficulty swallowing, difficulty taking a deep breath) Psychiatric Denies depression Endocrine Denies polyuria Hematologic/Lymphatic Denies easy bruising PMFSH Medical History Medical History Anxiety (Acute) Chronic low back pain (Acute) Degenerative disc disease (Acute) Depressed (Acute) Myasthenia gravis (Acute) Surgical History Surgical History History of hip replacement (Acute) History of thymectomy (Acute) Hx of tonsillectomy (Acute) Hx of tubal ligation (Acute) Social History Social History Substance History: No History of Abuse Second Hand Smoke Exposure: Yes Smoking Status: Former smoker How Often Do You Have a Drink Containing Alcohol: Never Recent Travel in [facility] within the Last 8 Weeks: No Exam Const General: cooperative, no acute distress and well developed Nutritional Appearance: well nourished Orientation: oriented x3 HENMT Head: normocephalic and atraumatic Nose: no nasal discharge and no epistaxis Mouth: moist mucous membranes Eyes Sclera: normal sclerae Pupils: PERRL Neck Neck: trachea midline and no JVD Resp Effort & Inspection: no use of accessory muscles Auscultation: clear to auscultation bilaterally Cardio Rate: tachycardic (sinus tachycardia with no pulse deficits to her extremities on simultaneous auscultation and palpation of her radial artery.) Rhythm: regular rhythm Heart Sounds: no gallops, no murmurs and no rubs GI Inspection: non-distended Palpation: soft, no hepatosplenomegaly and nontender Skin General: dry skin (warm) Neuro General: alert, awake and oriented x3 Cranial Nerves: CN's II-XI intact bilaterally Speech: abnormal speech (Slightly slurred intermittently) Motor: strength abnormal (4/5 strength in all 4 extremities.) Sensory Exam: no sensory deficits noted Extrem General: normal to inspection, no clubbing, no cyanosis, no edema and other (no calf tenderness on palpation) Psych Mood: congruent mood Affect: normal affect Judgment: judgment good Course Hospital Course: During the course of the patient's emergency department visit, the patient's history, examination, and differential diagnosis were reviewed with the patient. The patient was placed on a nuclear monitoring technician with oximetry and frequent blood pressure monitoring. The patient had IV access obtained and blood work sent for analysis. The patient is initially noted to be tachycardic on arrival. This could be related to poor p.o. intake today. Patient was started on normal saline 500 mL bolus 1. Consultations Consultation #1: The patient's case including history, pertinent physical examination findings, and laboratory studies were discussed with Dr. De La Fuente. It was agreed that the patient would be admitted to the hospitalist service. Consultation #2: The patient's case including history, pertinent physical examination findings, and laboratory studies were discussed with . It was agreed that the patient would be admitted to the her service. Initial Documented Vital Signs Temperature 97.9 F 04/17/18 18:50 Pulse Rate 119 H 04/17/18 18:50 Respiratory Rate 20 04/17/18 18:50 Blood Pressure 147/78 H 04/17/18 18:50 Pulse Oximetry 99 04/17/18 18:50 Last Documented Vital Signs Temperature 97.9 F 04/17/18 18:50 Pulse Rate 92 H 04/17/18 22:59 Respiratory Rate 16 04/17/18 22:59 Blood Pressure 159/78 H 04/17/18 22:59 Pulse Oximetry 97 04/17/18 23:25 Medical Decision Making MDM Narrative Medical decision making narrative: The patient's diagnostic testing is remarkable for the patient having a normal white count of 10.3 with a neutrophil predominance at 75, chemistry is remarkable for a chloride of 108, alk phos 44, BUN 6, troponin I is less than 0.02. Urinalysis shows 4 RBCs, few mucus, culture not indicated. A call has been placed out to the patient's neurologist, Dr. Vizcarra or whoever is covering for him for further guidance regarding treatment. The patient will be admitted to the hospitalist service. Given the patient's increasing difficulty with ambulating, swallowing, increased difficulty taking a deep breath, the patient will be admitted to the hospital for continued treatment of a myasthenia gravis exacerbation. Differential Diagnosis Differential Diagnosis: Myasthenia gravis exacerbation, versus electrolyte derangements, versus dehydration Medical Records Medical records reviewed: Yes I reviewed the patient's medical records. Lab Data Lab results reviewed: Yes I reviewed the patient's lab results. Result diagrams: 04/17/18 21:00 04/17/18 21:00 Lab Results 04/17/18 04/17/18 04/17/18 Range/Units 21:00 21:00 21:00 WBC 10.3 (4.0-11.0) th/mm3 RBC 4.50 (4.00-5.30) mil/mm3 Hgb 13.5 (11.6-15.3) gm/dL Hct 40.1 (35.0-46.0) % MCV 89.2 (80.0-100.0) fL MCH 30.0 (27.0-34.0) pg MCHC 33.7 (32.0-36.0) % RDW 14.2 (11.6-17.2) % Plt Count 409 (150-450) th/mm3 MPV 7.8 (7.0-11.0) fL Neut % (Auto) 75.0 H (16.0-70.0) % Lymph % (Auto) 18.8 (9.0-44.0) % [place] % (Auto) 5.0 (0.0-8.0) % Eos % (Auto) 0.3 (0.0-4.0) % Baso % (Auto) 0.9 (0.0-2.0) % Neut # (Auto) 7.7 (1.8-7.7) th/mm3 Lymph # (Auto) 1.9 (1.0-4.8) th/mm3 [place] # (Auto) 0.5 (0.0-0.9) th/mm3 Eos # (Auto) 0.0 (0.0-0.4) th/mm3 Baso # (Auto) 0.1 (0.0-0.2) th/mm3 WBC Differential . Differential Comment Auto diff final Sodium 141 (136-145) meq/L Potassium 3.6 (3.5-5.1) meq/L Chloride 108 H (98-107) meq/L Carbon Dioxide 26.3 (21.0-32.0) meq/L Anion Gap 7 (5-15) meq/L BUN 6 L (7-18) mg/dL Creatinine 0.59 (0.50-1.00) mg/dL Estimated GFR Greater than 89 (>89) mL/min Random Glucose 84 (74-106) mg/dL Calcium 8.8 (8.5-10.1) mg/dL Magnesium 1.9 (1.5-2.5) mg/dL Total Bilirubin 0.3 (0.2-1.0) mg/dL AST 15 (15-37) U/L ALT 21 (10-53) U/L Alkaline Phosphatase 44 L (45-117) U/L Total Creatine Kinase 26 (26-192) U/L Troponin I Less than 0.02 L (0.02-0.05) ng/mL Total Protein 7.5 (6.4-8.2) g/dL Albumin 3.6 (3.4-5.0) g/dL Lipase 143 (73-393) U/L Urine Color (Yellw/Straw) Urine Clarity (Clear) Urine pH (5.0-8.5) Ur Specific [place] (1.002-1.035) Urine Protein (Neg-Trace) mg/dL Urine Glucose (UA) (Negative) mg/dL Urine Ketones (Negative) mg/dL Urine Occult Blood (Negative) Urine Nitrate (Negative) Urine Bilirubin (Negative) Urine Urobilinogen (Less than 2) mg/dL Ur Leukocyte Esterase (Negative) Urine RBC (0-3) /hpf Urine WBC (0-5) /hpf Ur Squamous Epith Cells (0-5) /hpf Urine Mucus (Occasional) /lpf Micro UA Comment Urine Culture Comments 04/17/18 Range/Units 21:05 WBC (4.0-11.0) th/mm3 RBC (4.00-5.30) mil/mm3 Hgb (11.6-15.3) gm/dL Hct (35.0-46.0) % MCV (80.0-100.0) fL MCH (27.0-34.0) pg MCHC (32.0-36.0) % RDW (11.6-17.2) % Plt Count (150-450) th/mm3 MPV (7.0-11.0) fL Neut % (Auto) (16.0-70.0) % Lymph % (Auto) (9.0-44.0) % [place] % (Auto) (0.0-8.0) % Eos % (Auto) (0.0-4.0) % Baso % (Auto) (0.0-2.0) % Neut # (Auto) (1.8-7.7) th/mm3 Lymph # (Auto) (1.0-4.8) th/mm3 [place] # (Auto) (0.0-0.9) th/mm3 Eos # (Auto) (0.0-0.4) th/mm3 Baso # (Auto) (0.0-0.2) th/mm3 WBC Differential Differential Comment Sodium (136-145) meq/L Potassium (3.5-5.1) meq/L Chloride (98-107) meq/L Carbon Dioxide (21.0-32.0) meq/L Anion Gap (5-15) meq/L BUN (7-18) mg/dL Creatinine (0.50-1.00) mg/dL Estimated GFR (>89) mL/min Random Glucose (74-106) mg/dL Calcium (8.5-10.1) mg/dL Magnesium (1.5-2.5) mg/dL Total Bilirubin (0.2-1.0) mg/dL AST (15-37) U/L ALT (10-53) U/L Alkaline Phosphatase (45-117) U/L Total Creatine Kinase (26-192) U/L Troponin I (0.02-0.05) ng/mL Total Protein (6.4-8.2) g/dL Albumin (3.4-5.0) g/dL Lipase (73-393) U/L Urine Color Yellow (Yellw/Straw) Urine Clarity Hazy H (Clear) Urine pH 6.0 (5.0-8.5) Ur Specific [place] 1.015 (1.002-1.035) Urine Protein Negative (Neg-Trace) mg/dL Urine Glucose (UA) Negative (Negative) mg/dL Urine Ketones Negative (Negative) mg/dL Urine Occult Blood Negative (Negative) Urine Nitrate Negative (Negative) Urine Bilirubin Negative (Negative) Urine Urobilinogen Less than 2 (Less than 2) mg/dL Ur Leukocyte Esterase Negative (Negative) Urine RBC 4 H (0-3) /hpf Urine WBC 1 (0-5) /hpf Ur Squamous Epith Cells 4 (0-5) /hpf Urine Mucus Few H (Occasional) /lpf Micro UA Comment Culture not ind Urine Culture Comments Culture not ind Imaging Data Radiologist's impression: ITS Impressions Chest X-Ray 04/17/18 20:42 CONCLUSION: Cdsnih-b-[id number] tip in superior vena cava. No active disease. ECG Data Attestation: I personally reviewed and interpreted this ECG as follows: Interpretation: The patient had a EKG done on arrival. The patient's EKG shows a sinus rhythm heart rate of 87, QRS duration is 81 ms, QTC [address] segment elevation is noted. T waves are inverted in V1. Discharge Plan Discharge Disposition Patient Disposition: 30 Still Patient Physicians Team ED Provider: Yeny Oro Attending Provider: Jessy Bennett Status ED Status: Admitted Patient
[2018-04-17] MEDS ORDERED: Sodium Chlor 0.9% Inj 500 ML IV.SIG ONE (20:42)
[2018-04-17] MEDS ORDERED: LORazepam 0.5 MG Tablet PO ONE (21:05)
[2018-04-17 21:19] LABS: Bilirubin,Urine Negative (Negative); Clarity,Urine Hazy (Clear); Color,Urine Yellow (Yellw/Straw); Glucose,Urine (UA) Negative (Negative); Leukocyte Esterase,Urine Negative (Negative); Mucus,Urine Few /lpf (Occasional); Nitrite,Urine Negative (Negative); Specific Gravity,Urine 1.015 (1.002-1.035); Squamous Epithelial Cell,Urine 4 /hpf (0-5)
[2018-04-17 21:30] LABS: Baso # (Auto) 0.1 th/mm3 (0.0-0.2); Baso % (Auto) 0.9 % (0.0-2.0); Eos % (Auto) 0.3 % (0.0-4.0); Hematocrit 40.1 % (35.0-46.0); Hemoglobin 13.5 gm/dL (11.6-15.3); Lymph # (Auto) 1.9 th/mm3 (1.0-4.8); Lymph % (Auto) 18.8 % (9.0-44.0); Mean Corpuscular HGB Conc 33.7 % (32.0-36.0); Mean Corpuscular Volume 89.2 fL (80.0-100.0); Mean Platelet Volume 7.8 fL (7.0-11.0); Mono # (Auto) 0.5 th/mm3 (0.0-0.9); Neut # (Auto) 7.7 th/mm3 (1.8-7.7); Platelet Count 409 th/mm3 (150-450); Red Cell Distribution Width 14.2 % (11.6-17.2); White Blood Count 10.3 th/mm3 (4.0-11.0)
[2018-04-17 21:35] LABS: Albumin 3.6 g/dL (3.4-5.0); Anion Gap 7 meq/L (5-15); Aspartate Aminotransferase 15 U/L (15-37); Blood Urea Nitrogen 6 mg/dL (7-18); Calcium 8.8 mg/dL (8.5-10.1); Carbon Dioxide 26.3 meq/L (21.0-32.0); Chloride 108 meq/L (98-107); Glomerular Filtration Rate Greater Than 89 mL/min (>89); Glucose,Random 84 mg/dL (74-106); Potassium 3.6 meq/L (3.5-5.1); Sodium 141 meq/L (136-145)
[2018-04-17 21:36] LABS: Lipase 143 U/L (73-393); Magnesium 1.9 mg/dL (1.5-2.5)
[2018-04-17 21:37] LABS: Alanine Aminotransferase 21 U/L (10-53)
--- NOTE | 2018-04-17 21:37 | XR ---
EXAM DATE: 04/17/2018 9:19 PM EDT AGE/SEX: 43 years / Female INDICATIONS: Patient has a paralysis sensation in her chest when breathing. CLINICAL DATA: This is the patient's initial encounter. Patient reports that signs and symptoms have been present for 1 day and indicates a pain score of 0/10. MEDICAL/SURGICAL HISTORY: . Myasthenia gravis . Thymectomy [place] [facility] [place], [place]. . FINDINGS: A single AP view of the chest demonstrates the lungs to be symmetrically aerated without evidence of mass, infiltrate or effusion. The cardiomediastinal contours are unremarkable. Osseous structures a re intact. CONCLUSION: Kyryjq-b-Qlvv tip in superior vena cava. No active disease. Electronically signed by: Horace Lind MD 04/17/2018 9:35 PM EDT
[2018-04-17 21:39] LABS: Alkaline Phosphatase 44 U/L (45-117); Total Protein 7.5 g/dL (6.4-8.2)
[2018-04-17 21:40] LABS: Creatine Kinase 26 U/L (26-192)
[2018-04-18] MEDS ORDERED: Bisacodyl 10 MG Supp RECTAL PRN (00:48)
[2018-04-18] MEDS ORDERED: Acetaminophen 325 MG Tablet PO PRN (00:48)
[2018-04-18] MEDS ORDERED: Temazepam 15 MG Capsule PO PRN (00:48)
--- NOTE | 2018-04-18 00:55 | P.HP ---
History of Present Illness Service: [facility] Primary Care Physician: Manuel Mack Chief Complaint: Myasthenia gravis exacerbation History of Present Illness: 43-year-old female well known to me with a past medical history significant for myasthenia gravis presents the emergency today for evaluation of an exacerbation of her myasthenia. The patient reports that she has had bilateral lower extremity weakness such that she can barely walk and accompanying upper extremity arm weakness that is less severe. The patient denies any chest pain or shortness of breath. No abdominal pain. Complains of a migraine. No nausea /vomiting/diarrhea. No lateralizing signs/symptoms. No fevers/chills. Inpatient Certification: I certify that the inpatient services were ordered in accordance with Medicare regulations governing the order. This includes certification that hospital inpatient services are reasonable and necessary and in the case of services not specified as inpatient-only under 42 CFR 419.22(n), that they are appropriately provided as inpatient services in accordance to with the 2-midnight benchmark under 43 CFR 412.3(e) Estimated Total Length of Stay (Days): 2 Plans for Post Hospital Care: Not yet determined Review of Systems All other systems reviewed negative except as stated in HPI PMFSH - History History Provided By: Patient - Medical History Medical History: Medical History (Last Reviewed 04/17/18 @ 20:53 by Yeny Oro MD) Anxiety Depressed Myasthenia gravis Chronic low back pain Degenerative disc disease - Surgical History Surgical History: Surgical History (Last Reviewed 04/17/18 @ 20:53 by Yeny Oro MD) Hx of tonsillectomy Hx of tubal ligation History of hip replacement History of thymectomy - Tobacco History Second Hand Smoke Exposure: Yes Smoking Status: Former smoker - Alcohol History How Often Do You Have a Drink Containing Alcohol: Never - Substance Use History Substance History: No History of Abuse - Travel History Recent Travel in the [facility] Within the Last 8 Weeks: No - Immunization History Tetanus Immunization: Unsure Hx Influenza Vaccine This Season: No Medications and Allergies Active Medications: Active Medications Immune Globulin 25 gm/ Syringe (/Bag) 250 mls @ 31.25 mls/hr IV.SIG TITRATE ASHOK ; Protocol Stop: 04/22/18 22:53 Sodium Chloride (Ns Flush) 2 ml IV.FLUSH UNSCH PRN PRN Reason: FLUSH AFTER USING IV ACCESS Allergies Allergy/AdvReac Type Severity Reaction Status Date / Time penicillin G Allergy Severe Anaphylaxis Unverified 02/20/18 21:11 promethazine AdvReac Severe NAUSEOUS Unverified 02/20/18 21:11 Home Medications Medication Instructions Recorded Confirmed Type Lactobacillus acidoph-L.bulgar 3 tab PO DAILY 04/17/18 04/17/18 History [Floranex] aspirin [Aspir-81] 81 mg PO DAILY 04/17/18 04/17/18 History butalbital-acetaminophen See Label Instructions .ROUTE 04/17/18 04/17/18 History .COMPLEX gabapentin 300 mg PO QPM 04/17/18 04/17/18 History hydroxyzine HCl 25 mg PO QID PRN 04/17/18 04/17/18 History mirtazapine 45 mg PO DAILY 04/17/18 04/17/18 History mycophenolate mofetil [CellCept] 500 mg/m2 PO TID 04/17/18 04/17/18 History nabumetone 750 mg PO BID 04/17/18 04/17/18 History prednisone 20 mg PO DAILY 04/17/18 04/17/18 History pyridostigmine bromide 180 mg PO BID 04/17/18 04/17/18 History sumatriptan succinate 50 mg PO Q2-4H PRN 04/17/18 04/17/18 History clonazepam [Klonopin] 0.5 mg PO TID 04/18/18 04/18/18 History hydrocodone-acetaminophen 1 tab PO Q4H PRN 04/18/18 04/18/18 History Exam Vital signs: Vital Signs 04/17/18 18:50 04/17/18 20:37 04/17/18 22:06 Temperature 97.9 F Pulse Rate 119 H 90 101 H Respiratory Rate 20 16 16 Blood Pressure 147/78 H 163/89 H 163/89 H Pulse Oximetry 99 98 97 04/17/18 22:59 04/17/18 23:25 Temperature Pulse Rate 92 H Respiratory Rate 16 Blood Pressure 159/78 H Pulse Oximetry 98 97 Intake & Output 04/17/18 04/17/18 04/18/18 06:59 18:59 06:59 Weight 58.06 kg Narrative: Gen.: No acute distress Head: Normocephalic. Atraumatic. EENT: Pupils equal round and reactive to light. Nose without drainage. Airway intact. Throat without injection. Cardiovascular: Regular rate and rhythm. No murmurs, rubs or gallops. Respiratory: Lungs clear to auscultation bilaterally. No wheezes or rhonchi. Abdomen: Soft, nontender, nondistended. No peritoneal signs. Musculoskeletal: No gross deformities. No edema. Skin: No obvious rashes or erythema. Neuro: Sensory and motor grossly intact. Cranial nerves II through XII grossly intact. Psych: Appropriate mood and affect Results - Labs CBC & Chem 7: 04/17/18 21:00 04/17/18 21:00 Labs: Laboratory Results - last 24 hr 04/17/18 04/17/18 04/17/18 21:00 21:00 21:00 WBC 10.3 RBC 4.50 Hgb 13.5 Hct 40.1 MCV 89.2 MCH 30.0 MCHC 33.7 RDW 14.2 Plt Count 409 MPV 7.8 Neut % (Auto) 75.0 H Lymph % (Auto) 18.8 [place] % (Auto) 5.0 Eos % (Auto) 0.3 Baso % (Auto) 0.9 Neut # (Auto) 7.7 Lymph # (Auto) 1.9 [place] # (Auto) 0.5 Eos # (Auto) 0.0 Baso # (Auto) 0.1 WBC Differential . Differential Comment Auto diff final Sodium 141 Potassium 3.6 Chloride 108 H Carbon Dioxide 26.3 Anion Gap 7 BUN 6 L Creatinine 0.59 Estimated GFR Greater than 89 Random Glucose 84 Calcium 8.8 Magnesium 1.9 Total Bilirubin 0.3 AST 15 ALT 21 Alkaline Phosphatase 44 L Total Creatine Kinase 26 Troponin I Less than 0.02 L Total Protein 7.5 Albumin 3.6 Lipase 143 Urine Color Urine Clarity Urine pH Ur Specific [place] Urine Protein Urine Glucose (UA) Urine Ketones Urine Occult Blood Urine Nitrate Urine Bilirubin Urine Urobilinogen Ur Leukocyte Esterase Urine RBC Urine WBC Ur Squamous Epith Cells Urine Mucus Micro UA Comment Urine Culture Comments 04/17/18 21:05 WBC RBC Hgb Hct MCV MCH MCHC RDW Plt Count MPV Neut % (Auto) Lymph % (Auto) [place] % (Auto) Eos % (Auto) Baso % (Auto) Neut # (Auto) Lymph # (Auto) [place] # (Auto) Eos # (Auto) Baso # (Auto) WBC Differential Differential Comment Sodium Potassium Chloride Carbon Dioxide Anion Gap BUN Creatinine Estimated GFR Random Glucose Calcium Magnesium Total Bilirubin AST ALT Alkaline Phosphatase Total Creatine Kinase Troponin I Total Protein Albumin Lipase Urine Color Yellow Urine Clarity Hazy H Urine pH 6.0 Ur Specific [place] 1.015 Urine Protein Negative Urine Glucose (UA) Negative Urine Ketones Negative Urine Occult Blood Negative Urine Nitrate Negative Urine Bilirubin Negative Urine Urobilinogen Less than 2 Ur Leukocyte Esterase Negative Urine RBC 4 H Urine WBC 1 Ur Squamous Epith Cells 4 Urine Mucus Few H Micro UA Comment Culture not ind Urine Culture Comments Culture not ind - Imaging Impressions Chest X-Ray 04/17/18 20:42 CONCLUSION: Xihysb-j-Xpib tip in superior vena cava. No active disease. Caprini VTE Risk Assessment Caprini VTE Risk Assessment: No/Low Risk (score <= 1) Caprini Risk Assessment Model: Point Value = 1 Point Value = 2 Point Value = 3 Point Value = 5 Age 41-60 Minor surgery BMI > 25 kg/m2 Swollen legs Varicose veins or History of unexplained or recurrent spontaneous Oral contraceptives or hormone replacement Sepsis (< 1 month) Serious lung disease, including pneumonia (< 1 month) Abnormal pulmonary function Acute myocardial infarction Congestive heart failure (< 1 month) History of inflammatory bowel disease Medical patient at bed rest Age 61-74 Arthroscopic surgery Major open surgery (> 45 min) Laparoscopic surgery (> 45 min) Malignancy Confined to bed (> 72 hours) Immobilizing plaster cast Central venous access Age >= 75 History of VTE Family history of VTE Factor V Leiden Prothrombin [id number] Lupus anticoagulant Anticardiolipin antibodies Elevated serum homocysteine Heparin-induced thrombocytopenia Other congenital or acquired thrombophilia Stroke (< 1 month) Elective arthroplasty Hip, pelvis, or leg fracture Acute spinal cord injury (< 1 month) Prophylaxis Regimen: Total Risk Factor Score Risk Level Prophylaxis Regimen 0-1 Low Early ambulation 2 Moderate Order ONE of the following: *Sequential Compression Device (SCD) *Heparin 5000 units SQ BID 3-4 Higher Order ONE of the following medications: *Heparin 5000 units SQ TID *Enoxaparin/Lovenox 40 mg SQ daily (WT < 150 kg, CrCl > 30 mL/min) *Enoxaparin/Lovenox 30 mg SQ daily (WT < 150 kg, CrCl > 10-29 mL/min) *Enoxaparin/Lovenox 30 mg SQ BID (WT < 150 kg, CrCl > 30 mL/min) AND/OR *Sequential Compression Device (SCD) 5 or more Highest Order ONE of the following medications: *Heparin 5000 units SQ TID (Preferred with Epidurals) *Enoxaparin/Lovenox 40 mg SQ daily (WT < 150 kg, CrCl > 30 mL/min) *Enoxaparin/Lovenox 30 mg SQ daily (WT < 150 kg, CrCl > 10-29 mL/min) *Enoxaparin/Lovenox 30 mg SQ BID (WT < 150 kg, CrCl > 30 mL/min) AND *Sequential Compression Device (SCD) Assessment and Plan - Plan Assessment/plan: 1. Myasthenia gravis exacerbation Neurology consulted, appreciate recommendations IVIG per neurology 2. Migraine Imitrex FEN Regular diet Electrolytes: Monitor and replete as needed
[2018-04-18] MEDS: Sodium Chlor 0.9% Inj 500 ML IV.SIG PRN (03:08)
[2018-04-18] MEDS: Acetaminophen 325 MG Tablet PO PRN (03:08)
[2018-04-18] MEDS: IVIG (Immune Globulin) Inj 25 GM in Syringe/Bag 1 EACH IV.SIG SCH (04:18)
[2018-04-18] MEDS: Pyridostigmine Bromide 60 MG Tablet PO SCH ×4 (05:26→23:12)
[2018-04-18] MEDS: Senna/Docusate Sodium 8.6/50 MG Tablet PO SCH ×2 (09:00→23:16)
--- NOTE | 2018-04-18 09:56 | ECG ---
Date Performed: 04/17/2018 Time Performed: 21:22:57 PTAGE: 43 years EKG: Sinus rhythm NORMAL ECG Since the PREVIOUS TRACING , no significant change noted PREVIOUS TRACING DOCTOR: Jayce Pablo Interpretating Date/Time 04/18/2018 09:53:20
--- NOTE | 2018-04-18 10:43 | P.CONNEU ---
History of Present Illness Service: Neurology Consult date: 04/18/18 Requesting Physician: Jessy Bennett Reason for Consult: Myasthenia Gravis Primary Care Provider: Manuel Mack Chief Complaint: Myasthenia gravis exacerbation History of Present Illness: 43 y/o female with history of Myasthenia Gravis, currently on Mestinon ER 180 daily and 60mg qid and Prednisone 20mg at home. She had 2 infusions of IVIG at home March 28 and . She did not note improvement after this. She reports over the weekend she began noticing increased weakness in arms and legs and also double vision and speech changes. She reports that her sister has been helping her to get on and off the toilet due to the weakness. Denies difficulty swallowing or any shortness of breath. She states she received 1 IVIG treatment yesterday without side effects Review of Systems All other systems reviewed negative except as stated in HPI PMFSH - History History Provided By: Patient - Medical History Medical History: Medical History (Last Reviewed 04/18/18 @ 01:22 by Dorothy Cates RN) Chronic low back pain (Acute) Degenerative disc disease (Acute) Anxiety (Acute) Depressed (Acute) Myasthenia gravis (Acute) - Surgical History Surgical History: Surgical History (Last Updated 04/18/18 @ 01:21 by Dorothy Cates RN) History of thymectomy (Acute) History of hip replacement (Acute) Hx of tonsillectomy (Acute) Hx of tubal ligation (Acute) - Tobacco History Second Hand Smoke Exposure: No Tobacco Use In Past 30 Days: No Smoking Status: Former smoker - Alcohol History How Often Do You Have a Drink Containing Alcohol: Never - Substance Use History Substance History: No History of Abuse - Travel History Recent Travel in the [facility] Within the Last 8 Weeks: No - Immunization History Tetanus Immunization: >5 Years Hx Influenza Vaccine This Season: No Medications and Allergies Allergies Allergy/AdvReac Type Severity Reaction Status Date / Time penicillin G Allergy Severe Anaphylaxis Verified 04/18/18 02:21 promethazine AdvReac Severe NAUSEOUS Verified 04/18/18 02:21 Home Medications Medication Instructions Recorded Confirmed Type Lactobacillus acidoph-L.bulgar 3 tab PO DAILY 04/17/18 04/18/18 History [Floranex] aspirin [Aspir-81] 81 mg PO DAILY 04/17/18 04/18/18 History butalbital-acetaminophen See Label Instructions .ROUTE 04/17/18 04/18/18 History .COMPLEX gabapentin 300 mg PO QPM 04/17/18 04/18/18 History hydroxyzine HCl 25 mg PO QID PRN 04/17/18 04/18/18 History mirtazapine 45 mg PO DAILY 04/17/18 04/18/18 History mycophenolate mofetil [CellCept] 500 mg/m2 PO TID 04/17/18 04/18/18 History nabumetone 750 mg PO BID 04/17/18 04/18/18 History prednisone 20 mg PO DAILY 04/17/18 04/18/18 History pyridostigmine bromide 180 mg PO BID 04/17/18 04/18/18 History sumatriptan succinate 50 mg PO Q2-4H PRN 04/17/18 04/18/18 History clonazepam [Klonopin] 0.5 mg PO TID 04/18/18 04/18/18 History hydrocodone-acetaminophen 1 tab PO Q4H PRN 04/18/18 04/18/18 History pyridostigmine bromide 60 mg PO Q6HR 04/18/18 04/18/18 History Active Medications: Active Medications Acetaminophen (Tylenol) 650 mg PO Q4H PRN PRN Reason: Temp > 100.4 Acetaminophen (Tylenol) 650 mg PO 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 PRN Reason: 60 MIN PRIOR TO INFUSION Stop: 04/22/18 23:00 Last Admin: 04/18/18 03:08 Dose: 650 mg Al Hydroxide/Mg Hydroxide (Milk Of Magnesia Liq) 30 ml PO Q12H PRN PRN Reason: Mild Constipation Bisacodyl (Dulcolax Supp) 10 mg RECTAL DAILY PRN PRN Reason: SEVERE CONSITIPATION Diphenhydramine HCl (Benadryl Inj) 50 mg IV.PUSH UNSCH PRN PRN Reason: X1 FOR ALLERGIC REACTION Stop: 04/22/18 23:00 Diphenhydramine HCl (Benadryl) 25 mg PO 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 PRN Reason: 60 MIN PRIOR TO INFUSION Last Admin: 04/18/18 03:07 Dose: 25 mg Epinephrine HCl (Epinephrine (1:1000) Inj) 0.3 mg SQ Q10M PRN PRN Reason: SEE LABEL COMMENTS Stop: 04/22/18 23:00 Immune Globulin 25 gm/ Syringe (/Bag) 250 mls @ 31.25 mls/hr IV.SIG TITRATE ASHOK ; Protocol Stop: 04/22/18 22:53 Last Infusion: 04/18/18 06:37 Dose: Infused Dextrose (D5w Inj) 500 mls @ 30 mls/hr IV.SIG UNSCH PRN PRN Reason: WITH IVIG INFUSION Stop: 04/22/18 23:00 Sodium Chloride (Ns Inj) 500 mls @ 500 mls/hr IV.SIG .Q1H PRN PRN Reason: PRE-HYDRATION PRE IVIG Stop: 04/22/18 23:00 Last Infusion: 04/18/18 04:08 Dose: 500 mls/hr Lactulose (Lactulose Liq) 30 ml PO DAILY PRN PRN Reason: SEVERE CONSITIPATION Ondansetron HCl (Zofran Odt) 4 mg PO Q6H PRN PRN Reason: NAUSEA OR VOMITING Pyridostigmine [place] (Mestinon) 60 mg PO Q6HR [facility] Last Admin: 04/18/18 05:26 Dose: 60 mg Senna/Docusate Sodium ([place]-Colace) 1 tab PO BID [facility] Last Admin: 04/18/18 09:00 Dose: Not Given Sennosides (Senokot) 17.2 mg PO Q12H PRN PRN Reason: Moderate Constipation Sodium Chloride (Ns Flush) 2 ml IV.FLUSH UNSCH PRN PRN Reason: FLUSH AFTER USING IV ACCESS Temazepam (Restoril) 15 mg PO HS PRN PRN Reason: INSOMNIA Exam Vital signs: Vital Signs 04/17/18 18:50 04/17/18 20:37 04/17/18 22:06 Temperature 97.9 F Pulse Rate 119 H 90 101 H Respiratory Rate 20 16 16 Blood Pressure 147/78 H 163/89 H 163/89 H Pulse Oximetry 99 98 97 04/17/18 22:59 04/17/18 23:25 04/18/18 01:00 Temperature 98.1 F Pulse Rate 92 H 75 Respiratory Rate 16 18 Blood Pressure 159/78 H 127/75 Pulse Oximetry 98 97 98 04/18/18 03:10 04/18/18 04:00 04/18/18 04:18 Temperature 97.7 F Pulse Rate 76 66 69 Respiratory Rate 18 Blood Pressure 134/82 Pulse Oximetry 98 0709/18 04:33 04/18/18 04:48 04/18/18 05:03 Temperature 97.5 F L 97.2 F L 97.6 F Pulse Rate 69 69 68 Respiratory Rate 18 Blood Pressure 140/82 143/85 H 143/80 H Pulse Oximetry 98 98 98 04/18/18 05:18 04/18/18 06:37 04/18/18 07:00 Temperature 97.8 F 97.8 F 97.8 F Pulse Rate 68 73 73 Respiratory Rate 18 18 Blood Pressure 143/80 H 138/79 138/79 Pulse Oximetry 98 99 99 04/18/18 08:00 04/18/18 09:12 Temperature 97.8 F Pulse Rate 76 Respiratory Rate 20 Blood Pressure 133/84 Pulse Oximetry 97 98 Intake & Output 04/17/18 04/18/18 04/18/18 18:59 06:59 18:59 Intake Total 900 / 900 Balance 900 / 900 Weight 58.06 kg 61.7 kg Intake: IV 250 / 250 Privigen Inj 25 GM In Bag/ 250 / 250 Syringe 1 EACH @ 31.25 mls/hr IV.SIG TITRATE ASHOK Rx#:[id number] NS Inj 500 ML @ 500 mls/hr IV. 0 / 0 SIG .Q1H PRN Rx#:[id number] Oral 650 / 650 Other: # Voids 5 Date of Last Bowel Movement 04/18/18 Weight On Admission 61.7 kg - Constitutional no acute distress - Routine Neurological Exam alert and orient x 3 CN II-XII- slightly dyscongjuate gaze on the right, unable to sustain upgaze on the right, otherwise intact motor- moving extremities against gravity, tone normal, no drift sensory- normal to light touch reflexes- brisk throughout cerebellar- f-n-f intact coordination intact gait withheld speech- nasal Results - Labs CBC & Chem 7: 04/17/18 21:00 04/17/18 21:00 Labs: Laboratory Results - last 24 hr 04/17/18 04/17/18 04/17/18 21:00 21:00 21:00 WBC 10.3 RBC 4.50 Hgb 13.5 Hct 40.1 MCV 89.2 MCH 30.0 MCHC 33.7 RDW 14.2 Plt Count 409 MPV 7.8 Neut % (Auto) 75.0 H Lymph % (Auto) 18.8 [place] % (Auto) 5.0 Eos % (Auto) 0.3 Baso % (Auto) 0.9 Neut # (Auto) 7.7 Lymph # (Auto) 1.9 [place] # (Auto) 0.5 Eos # (Auto) 0.0 Baso # (Auto) 0.1 WBC Differential . Differential Comment Auto diff final Sodium 141 Potassium 3.6 Chloride 108 H Carbon Dioxide 26.3 Anion Gap 7 BUN 6 L Creatinine 0.59 Estimated GFR Greater than 89 Random Glucose 84 Calcium 8.8 Magnesium 1.9 Total Bilirubin 0.3 AST 15 ALT 21 Alkaline Phosphatase 44 L Total Creatine Kinase 26 Troponin I Less than 0.02 L Total Protein 7.5 Albumin 3.6 Lipase 143 Urine Color Urine Clarity Urine pH Ur Specific [place] Urine Protein Urine Glucose (UA) Urine Ketones Urine Occult Blood Urine Nitrate Urine Bilirubin Urine Urobilinogen Ur Leukocyte Esterase Urine RBC Urine WBC Ur Squamous Epith Cells Urine Mucus Micro UA Comment Urine Culture Comments 04/17/18 21:05 WBC RBC Hgb Hct MCV MCH MCHC RDW Plt Count MPV Neut % (Auto) Lymph % (Auto) [place] % (Auto) Eos % (Auto) Baso % (Auto) Neut # (Auto) Lymph # (Auto) [place] # (Auto) Eos # (Auto) Baso # (Auto) WBC Differential Differential Comment Sodium Potassium Chloride Carbon Dioxide Anion Gap BUN Creatinine Estimated GFR Random Glucose Calcium Magnesium Total Bilirubin AST ALT Alkaline Phosphatase Total Creatine Kinase Troponin I Total Protein Albumin Lipase Urine Color Yellow Urine Clarity Hazy H Urine pH 6.0 Ur Specific [place] 1.015 Urine Protein Negative Urine Glucose (UA) Negative Urine Ketones Negative Urine Occult Blood Negative Urine Nitrate Negative Urine Bilirubin Negative Urine Urobilinogen Less than 2 Ur Leukocyte Esterase Negative Urine RBC 4 H Urine WBC 1 Ur Squamous Epith Cells 4 Urine Mucus Few H Micro UA Comment Culture not ind Urine Culture Comments Culture not ind - Imaging Impressions Chest X-Ray 04/17/18 20:42 CONCLUSION: [id number] tip in superior vena cava. No active disease. Review/Management - Review/Management Plan: resume home meds Mestinon ER 180mg qam Mestinon 60mg 4 times daily Prednisone 20mg daily start IVIG x 5 doses PT eval and treat Addendum pt seen d/w pa cont prednisone.,mestinon and ivig for 5 days PT-OT-ST d/c planning.
--- NOTE | 2018-04-18 11:48 | P.PN ---
Subjective Interval history: Patient is seen sitting up in bed watching TV. Tells me that she is feeling better since getting her first IVIG treatment. She does have a migraine she tells me that this happens every time she gets a treatment and that she usually takes Imitrex. She denies any chest pain or shortness of breath. She is not having any difficulty breathing but she is having some issues swallowing. Patient tells me that this is typical if she has a flare. Denies any nausea vomiting or diarrhea. She does request both narcotic pain medications and benzodiazepines. Physical Exam Vital signs: Vital Signs 04/17/18 18:50 04/17/18 20:37 04/17/18 22:06 Temperature 97.9 F Pulse Rate 119 H 90 101 H Respiratory Rate 20 16 16 Blood Pressure 147/78 H 163/89 H 163/89 H Pulse Oximetry 99 98 97 04/17/18 22:59 04/17/18 23:25 04/18/18 01:00 Temperature 98.1 F Pulse Rate 92 H 75 Respiratory Rate 16 18 Blood Pressure 159/78 H 127/75 Pulse Oximetry 98 97 98 04/18/18 03:10 04/18/18 04:00 04/18/18 04:18 Temperature 97.7 F Pulse Rate 76 66 69 Respiratory Rate 18 Blood Pressure 134/82 Pulse Oximetry 98 04/18/18 04:33 04/18/18 04:48 04/18/18 05:03 Temperature 97.5 F L 97.2 F L 97.6 F Pulse Rate 69 69 68 Respiratory Rate 18 18 18 Blood Pressure 140/82 143/85 H 143/80 H Pulse Oximetry 98 98 98 04/18/18 05:18 04/18/18 06:37 04/18/18 07:00 Temperature 97.8 F 97.8 F 97.8 F Pulse Rate 68 73 73 Respiratory Rate 18 18 18 Blood Pressure 143/80 H 138/79 138/79 Pulse Oximetry 98 99 99 04/18/18 08:00 04/18/18 09:12 Temperature 97.8 F Pulse Rate 76 Respiratory Rate 20 Blood Pressure 133/84 Pulse Oximetry 97 98 Intake & Output 04/17/18 04/18/18 04/18/18 18:59 06:59 18:59 Intake Total 900 / 900 Balance 900 / 900 Weight 58.06 kg 61.7 kg Intake: IV 250 / 250 Privigen Inj 25 GM In Bag/ 250 / 250 Syringe 1 EACH @ 31.25 mls/hr IV.SIG TITRATE ASHOK Rx#:[id number] NS Inj 500 ML @ 500 mls/hr IV. 0 / 0 SIG .Q1H PRN Rx#:[id number] Oral 650 / 650 Other: # Voids 5 Date of Last Bowel Movement 04/18/18 Weight On Admission 61.7 kg Narrative: Gen.: Well-developed, well-nourished female in no distress. Head: Normocephalic. Atraumatic. EENT: Pupils equal round and reactive to light. Nose without drainage. Airway intact. Throat without injection. Cardiovascular: Regular rate and rhythm. Respiratory: Lungs clear to auscultation bilaterally. No wheezes or rhonchi. Abdomen: Soft, nontender, nondistended. No peritoneal signs. Musculoskeletal: No gross deformities. No edema. Skin: No obvious rashes or erythema. Neuro: Sensory and motor grossly intact. Cranial nerves II through XII grossly intact. Psych: Appropriate mood and affect Results - Labs CBC & Chem 7: 04/17/18 21:00 04/17/18 21:00 Laboratory Results - last 24 hr 04/17/18 04/17/18 04/17/18 21:00 21:00 21:00 WBC 10.3 RBC 4.50 Hgb 13.5 Hct 40.1 MCV 89.2 MCH 30.0 MCHC 33.7 RDW 14.2 Plt Count 409 MPV 7.8 Neut % (Auto) 75.0 H Lymph % (Auto) 18.8 [place] % (Auto) 5.0 Eos % (Auto) 0.3 Baso % (Auto) 0.9 Neut # (Auto) 7.7 Lymph # (Auto) 1.9 [place] # (Auto) 0.5 Eos # (Auto) 0.0 Baso # (Auto) 0.1 WBC Differential . Differential Comment Auto diff final Sodium 141 Potassium 3.6 Chloride 108 H Carbon Dioxide 26.3 Anion Gap 7 BUN 6 L Creatinine 0.59 Estimated GFR Greater than 89 Random Glucose 84 Calcium 8.8 Magnesium 1.9 Total Bilirubin 0.3 AST 15 ALT 21 Alkaline Phosphatase 44 L Total Creatine Kinase 26 Troponin I Less than 0.02 L Total Protein 7.5 Albumin 3.6 Lipase 143 Urine Color Urine Clarity Urine pH Ur Specific [place] Urine Protein Urine Glucose (UA) Urine Ketones Urine Occult Blood Urine Nitrate Urine Bilirubin Urine Urobilinogen Ur Leukocyte Esterase Urine RBC Urine WBC Ur Squamous Epith Cells Urine Mucus Micro UA Comment Urine Culture Comments 04/17/18 21:05 WBC RBC Hgb Hct MCV MCH MCHC RDW Plt Count MPV Neut % (Auto) Lymph % (Auto) [place] % (Auto) Eos % (Auto) Baso % (Auto) Neut # (Auto) Lymph # (Auto) [place] # (Auto) Eos # (Auto) Baso # (Auto) WBC Differential Differential Comment Sodium Potassium Chloride Carbon Dioxide Anion Gap BUN Creatinine Estimated GFR Random Glucose Calcium Magnesium Total Bilirubin AST ALT Alkaline Phosphatase Total Creatine Kinase Troponin I Total Protein Albumin Lipase Urine Color Yellow Urine Clarity Hazy H Urine pH 6.0 Ur Specific [place] 1.015 Urine Protein Negative Urine Glucose (UA) Negative Urine Ketones Negative Urine Occult Blood Negative Urine Nitrate Negative Urine Bilirubin Negative Urine Urobilinogen Less than 2 Ur Leukocyte Esterase Negative Urine RBC 4 H Urine WBC 1 Ur Squamous Epith Cells 4 Urine Mucus Few H Micro UA Comment Culture not ind Urine Culture Comments Culture not ind - Imaging Impressions Chest X-Ray 04/17/18 20:42 CONCLUSION: [id number] tip in superior vena cava. No active disease. Assessment and Plan - Plan Assessment/plan: Myasthenia gravis exacerbation -Neurology consulted -discussed case with Dr. Kirby -plan is for 5 days of IVIG. Patient is well-known to neurology and they confirm a history of drug- seeking behavior. -Patient reports swallow difficulty and leg weakness due to flare -will consult PT and ST Migraine -Home Imitrex restarted Anxiety -Home Atarax restarted. No benzodiazepines.
[2018-04-18] MEDS: predniSONE 10 MG Tablet PO SCH (12:13)
[2018-04-18] MEDS ORDERED: Naloxone Inj 0.4 MG/ML Vial IV.PUSH PRN (15:29)
--- NOTE | 2018-04-18 15:40 | P.DCO ---
- Physical Therapy Order: Evaluate and treat, Improve ambulation, Strength and gait training - Home Health Nursing Order: Medical education, Signs/symptoms of disease process, Medication education-adverse effect, Nursing assessment with vital signs - Case Management Consult Yes - Certification I have seen patient Brionna Rodríguez on 04/18/18. My clinical findings support the need for the requested home health care services because: Limited mobility due to disease progression, Deconditioned with increased weakness I certify that my clinical findings support that this patient is homebound because: Unsteady gait/balance
[2018-04-19] MEDS: Acetaminophen 325 MG Tablet PO PRN ×2 (03:07→21:56)
[2018-04-19] MEDS: Sodium Chlor 0.9% Inj 500 ML IV.SIG PRN ×2 (03:10→22:28)
[2018-04-19] MEDS: Pyridostigmine Bromide 60 MG Tablet PO SCH ×4 (05:49→23:53)
[2018-04-19] MEDS: IVIG (Immune Globulin) Inj 25 GM in Syringe/Bag 1 EACH IV.SIG SCH ×3 (08:31→23:43)
[2018-04-19] MEDS: predniSONE 10 MG Tablet PO SCH (08:36)
[2018-04-19] MEDS: Senna/Docusate Sodium 8.6/50 MG Tablet PO SCH ×2 (08:36→21:57)
--- NOTE | 2018-04-19 10:18 | P.PN ---
Subjective Interval history: Follow-up visit myasthenia gravis exacerbation, anxiety, depression. Patient seen and examined today. Reports she did not sleep well overnight. States that she has been taking a medication that starts with "M" it is an antidepressant that helps her to sleep at night. Patient states he did her IVIG at 3:00 in the morning and is now very sleepy. Otherwise, Denies pain and discomfort. Denies SOB/ dyspnea. Denies chest pain, palpitations, headaches, dizziness. Denies fevers, chills, n/v/d. Denies dysuria. Physical Exam Vital signs: Vital Signs 04/18/18 11:43 04/18/18 17:07 04/18/18 20:00 Temperature 97.7 F 98.0 F 97.6 F Pulse Rate 83 108 H 102 H Respiratory Rate 20 20 20 Blood Pressure 142/70 H 134/72 135/77 Pulse Oximetry 99 98 98 04/19/18 00:00 04/19/18 01:30 04/19/18 04:00 Temperature 97.4 F L 97.4 F L Pulse Rate 96 H 79 Respiratory Rate 18 16 20 Blood Pressure 116/81 113/72 Pulse Oximetry 96 98 04/19/18 08:00 04/19/18 08:31 04/19/18 09:17 Temperature 97.3 F L Pulse Rate 88 85 82 Respiratory Rate 17 18 16 Blood Pressure 129/76 136/63 119/82 Pulse Oximetry 100 Intake & Output 04/18/18 04/19/18 04/19/18 18:59 06:59 18:59 Intake Total 480 / 480 366 / 366 250 / 250 Balance 480 / 480 366 / 366 250 / 250 Intake: IV 250 / 250 Privigen Inj 25 GM In Bag/ 250 / 250 Syringe 1 EACH @ 31.25 mls/hr IV.SIG TITRATE ASHOK Rx#:[id number] Oral 480 / 480 366 / 366 Other: # Voids 4 3 Date of Last Bowel Movement 04/18/18 04/18/18 # Bowel Movements 1 Narrative: GENERAL: This is a well-nourished, well-developed patient, in no apparent distress. SKIN: Warm and dry. HEENT: Normocephalic. Pupils equal round and reactive. Bilateral upper eyelids trace edema. Nose without bleeding. Airway patent. NECK: Trachea midline. CARDIOVASCULAR: Regular rate and rhythm without murmurs, gallops, or rubs. RESPIRATORY: Clear to auscultation. Breath sounds equal bilaterally. No wheezes , rales, or rhonchi. GASTROINTESTINAL: Abdomen soft, non-tender, nondistended. Bowel Sounds normoactive x4. MUSCULOSKELETAL: Extremities without clubbing, cyanosis, or edema. NEUROLOGICAL: Awake and alert. Oriented to time, place, person. No focal neuro deficit. Moves all extremities. Normal speech. Results - Labs CBC & Chem 7: 04/17/18 21:00 04/17/18 21:00 - Procedures None Assessment and Plan - Assessment (1) Myasthenia gravis Code(s): G70.00 - Myasthenia gravis without (acute) exacerbation Status: Acute - Plan 43-year-old female well known to me with a past medical history significant for myasthenia gravis presents the emergency today for evaluation of an exacerbation of her myasthenia. Myasthenia gravis exacerbation -Neurology consulted, Dr. Kirby -plan is for 5 days of IVIG. Patient is well -known to neurology and they confirm a history of drug-seeking behavior. -Patient reports swallow difficulty and leg weakness due to flare -will consult PT and ST -States improved swallowing. -Last dose IVIG pos 04/22 Migraine -Home Imitrex restarted Anxiety, depression -Home Atarax restarted. No benzodiazepines, [facility] verified patient previously on Alprazolam. Her med rec showed clonazepam 3 times daily which should not be restarted. -Mirtazapine restarted Chronic pain -Patient states she has pain management and outpatient however per review of [facility] last medication for narcotic was given 02/04/18 from the hospital for 2 days. Database showed most recent rx from pain mgt providers on 12/31/17 for #30 days and on 11/12/17 for #30 days. -Currently on percocet 5/325mh for pain -Do not DC patient with pain meds. Follow with Pain management MD. Code Status: Full Code Discussed Condition With: Patient, nursing Discharge Planning: Plan to DC home when IVIG is completed. Home health care in place.
[2018-04-19 13:42] LABS: Baso % (Auto) 0.2 % (0.0-2.0); Eos % (Auto) 0.1 % (0.0-4.0); Hematocrit 41.9 % (35.0-46.0); Lymph # (Auto) 0.8 th/mm3 (1.0-4.8); Lymph % (Auto) 6.8 % (9.0-44.0); Mean Corpuscular HGB Conc 33.4 % (32.0-36.0); Mean Corpuscular Hemoglobin 29.9 pg (27.0-34.0); Mean Corpuscular Volume 89.5 fL (80.0-100.0); Mean Platelet Volume 8.5 fL (7.0-11.0); Mono # (Auto) 0.2 th/mm3 (0.0-0.9); Mono % (Auto) 1.4 % (0.0-8.0); Neut # (Auto) 10.8 th/mm3 (1.8-7.7); Neut % (Auto) 91.5 % (16.0-70.0); Platelet Count 512 th/mm3 (150-450); Red Blood Count 4.69 mil/mm3 (4.00-5.30); Red Cell Distribution Width 13.8 % (11.6-17.2); White Blood Count 11.8 th/mm3 (4.0-11.0)
[2018-04-19 14:01] LABS: Anion Gap 3 meq/L (5-15); Blood Urea Nitrogen 12 mg/dL (7-18); Calcium 9.1 mg/dL (8.5-10.1); Carbon Dioxide 28.6 meq/L (21.0-32.0); Chloride 106 meq/L (98-107); Glomerular Filtration Rate Greater Than 89 mL/min (>89); Glucose,Random 128 mg/dL (74-106); Potassium 4.1 meq/L (3.5-5.1); Sodium 138 meq/L (136-145)
[2018-04-19 20:47] LABS: Mycophenolic Acid 1.8 mcg/mL (1.0 - 3.5)
[2018-04-19] MEDS: Gabapentin 300 MG Capsule PO SCH (21:58)
[2018-04-19] MEDS: Mirtazapine 15 MG Tablet PO SCH (21:58)
[2018-04-20] MEDS ORDERED: Heparin Central Flush 100 UNIT/ML 5 ML Vial IV.FLUSH PRN (06:03)
[2018-04-20] MEDS: Pyridostigmine Bromide 60 MG Tablet PO SCH ×4 (06:21→23:52)
[2018-04-20] MEDS: predniSONE 10 MG Tablet PO SCH (08:23)
[2018-04-20] MEDS: Senna/Docusate Sodium 8.6/50 MG Tablet PO SCH ×2 (14:18→21:51)
--- NOTE | 2018-04-20 15:34 | P.PNIM ---
Subjective Interval history: 43-year-old female well known to me with a past medical history significant for myasthenia gravis presents the emergency today for evaluation of an exacerbation of her myasthenia. The patient reports that she has had bilateral lower extremity weakness such that she can barely walk and accompanying upper extremity arm weakness that is less severe. The patient denies any chest pain or shortness of breath. No abdominal pain. Complains of a migraine. No nausea /vomiting/diarrhea. No lateralizing signs/symptoms. No fevers/chills. Patient is seen sitting up in bed watching TV. Tells me that she is feeling better since getting her first IVIG treatment. She does have a migraine she tells me that this happens every time she gets a treatment and that she usually takes Imitrex. She denies any chest pain or shortness of breath. She is not having any difficulty breathing but she is having some issues swallowing. Patient tells me that this is typical if she has a flare. Denies any nausea vomiting or diarrhea. She does request both narcotic pain medications and benzodiazepines. 04-19 Follow-up visit myasthenia gravis exacerbation, anxiety, depression. Patient seen and examined today. Reports she did not sleep well overnight. States that she has been taking a medication that starts with "M" it is an antidepressant that helps her to sleep at night. Patient states he did her IVIG at 3:00 in the morning and is now very sleepy. Otherwise, Denies pain and discomfort. Denies SOB/ dyspnea. Denies chest pain, palpitations, headaches, dizziness. Denies fevers, chills, n/v/d. Denies dysuria. 04-20 WILL CONTINUE IVIG UNTIL COMPLETE NEEDS [address] RN AND PT AND CM AM LABS PT AND OT DOING WELL WITH PT POSSIBLE DRUG SEEKING BEHAVIOR Physical Exam Vital signs: Vital Signs 04/19/18 16:00 04/19/18 17:00 04/19/18 18:00 Temperature 98 F Pulse Rate 114 H 92 H 74 Respiratory Rate 19 18 Blood Pressure 132/80 159/72 H Pulse Oximetry 98 94 L 04/19/18 19:50 04/19/18 20:00 04/19/18 23:40 Temperature 97.7 F 97.6 F Pulse Rate 70 71 66 Respiratory Rate 16 16 Blood Pressure 126/83 122/78 Pulse Oximetry 96 98 04/20/18 00:00 04/20/18 00:18 04/20/18 00:50 Temperature 97.5 F L 97.5 F L 97.9 F Pulse Rate 70 85 65 Respiratory Rate 16 18 16 Blood Pressure 124/77 119/74 116/74 Pulse Oximetry 98 98 99 04/20/18 01:17 04/20/18 01:37 04/20/18 02:01 Temperature 97.7 F 97.5 F L Pulse Rate 86 78 70 Respiratory Rate 16 Blood Pressure 127/72 113/72 Pulse Oximetry 99 98 04/20/18 03:18 04/20/18 04:04 04/20/18 07:06 Temperature 97.4 F L Pulse Rate 68 65 Respiratory Rate 18 3 L Blood Pressure 120/75 Pulse Oximetry 100 04/20/18 07:52 04/20/18 08:18 04/20/18 12:00 Temperature 97.6 F Pulse Rate 87 72 95 H Respiratory Rate 18 Blood Pressure 127/66 Pulse Oximetry 98 04/20/18 12:10 Temperature 98.0 F Pulse Rate 94 H Respiratory Rate 20 Blood Pressure 128/80 Pulse Oximetry 97 Intake & Output 04/19/18 04/20/18 04/20/18 18:59 06:59 18:59 Intake Total 370 / 370 1710 / 1710 Output Total 200 / 200 900 / 900 Balance 170 / 170 810 / 810 Weight 56.8 kg Intake: IV 250 / 250 750 / 750 Privigen Inj 25 GM In Bag/ 250 / 250 250 / 250 Syringe 1 EACH @ 31.25 mls/hr IV.SIG Q24H ASHOK Rx#:[id number] NS Inj 500 ML @ 500 mls/hr IV. 500 / 500 SIG .Q1H PRN Rx#:[id number] Oral 120 / 120 960 / 960 Output: Urine 200 / 200 900 / 900 Other: Date of Last Bowel Movement 04/18/18 04/19/18 04/19/18 Narrative: GENERAL: This is a well-nourished, well-developed patient, in no apparent distress. SKIN: Warm and dry. HEENT: Normocephalic. Pupils equal round and reactive. Bilateral upper eyelids trace edema. Nose without bleeding. Airway patent. NECK: Trachea midline. CARDIOVASCULAR: Regular rate and rhythm without murmurs, gallops, or rubs. RESPIRATORY: Clear to auscultation. Breath sounds equal bilaterally. No wheezes , rales, or rhonchi. GASTROINTESTINAL: Abdomen soft, non-tender, nondistended. Bowel Sounds normoactive x4. MUSCULOSKELETAL: Extremities without clubbing, cyanosis, or edema. NEUROLOGICAL: Awake and alert. Oriented to time, place, person. No focal neuro deficit. Moves all extremities. Normal speech. INSIGHT AND JUDGEMENT ARE GOOD; MOOD AND BEHAVIORS ARE SOMEWHAT APPROPRIATE Results - Labs CBC & Chem 7: 04/19/18 12:48 04/19/18 12:48 Laboratory Results - last 24 hr 04/17/18 22:00 Mycophenolic Acid 1.8 MPA Glucuronide Less than 10 L - Imaging ITS Impressions Chest X-Ray 04/17/18 20:42 CONCLUSION: [id number]-[id number] tip in superior vena cava. No active disease. - Procedures None Assessment and Plan - Assessment (1) Myasthenia gravis Code(s): G70.00 - Myasthenia gravis without (acute) exacerbation Status: Acute - Plan 43-year-old female well known to me with a past medical history significant for myasthenia gravis presents the emergency today for evaluation of an exacerbation of her myasthenia. Myasthenia gravis exacerbation -Neurology consulted, Dr. Kirby -plan is for 5 days of IVIG. Patient is well -known to neurology and they confirm a history of drug-seeking behavior. -Patient reports swallow difficulty and leg weakness due to flare -will consult PT and ST -States improved swallowing. -Last dose IVIG pos 04/22 Migraine -Home Imitrex restarted Anxiety, depression -Home Atarax restarted. No benzodiazepines, [facility] verified patient previously on Alprazolam. Her med rec showed clonazepam 3 times daily which should not be restarted. -Mirtazapine restarted Chronic pain -Patient states she has pain management and outpatient however per review of [facility] last medication for narcotic was given 02/04/18 from the hospital for 2 days. Database showed most recent rx from pain mgt providers on 12/31/17 for #30 days and on 11/12/17 for #30 days. -Currently on percocet 5/325mh for pain -Do not DC patient with pain meds. Follow with Pain management MD. Code Status: FULL CODE Discussed Condition With: RN AND PT AND CM Discharge Planning: HOME ONCE IVIG COMPLETE
[2018-04-20] MEDS: Gabapentin 300 MG Capsule PO SCH (21:22)
[2018-04-20] MEDS: Mirtazapine 15 MG Tablet PO SCH (21:22)
[2018-04-20] MEDS: Acetaminophen 325 MG Tablet PO PRN (21:22)
[2018-04-20] MEDS: Methocarbamol 500 MG Tablet PO PRN (21:32)
[2018-04-20] MEDS: Sodium Chlor 0.9% Inj 500 ML IV.SIG PRN (21:57)
[2018-04-20] MEDS: IVIG (Immune Globulin) Inj 25 GM in Syringe/Bag 1 EACH IV.SIG SCH (23:43)
[2018-04-21] MEDS: Pyridostigmine Bromide 60 MG Tablet PO SCH ×4 (05:42→23:39)
[2018-04-21 06:38] LABS: Baso # (Auto) 0.1 th/mm3 (0.0-0.2); Baso % (Auto) 0.8 % (0.0-2.0); Eos # (Auto) 0.1 th/mm3 (0.0-0.4); Eos % (Auto) 1.5 % (0.0-4.0); Hematocrit 37.4 % (35.0-46.0); Hemoglobin 12.6 gm/dL (11.6-15.3); Lymph # (Auto) 2.4 th/mm3 (1.0-4.8); Lymph % (Auto) 27.7 % (9.0-44.0); Mean Corpuscular HGB Conc 33.7 % (32.0-36.0); Mean Corpuscular Hemoglobin 30.3 pg (27.0-34.0); Mean Corpuscular Volume 89.8 fL (80.0-100.0); Mean Platelet Volume 7.7 fL (7.0-11.0); Mono # (Auto) 0.8 th/mm3 (0.0-0.9); Neut # (Auto) 5.4 th/mm3 (1.8-7.7); Platelet Count 403 th/mm3 (150-450); Red Blood Count 4.16 mil/mm3 (4.00-5.30); Red Cell Distribution Width 13.7 % (11.6-17.2); White Blood Count 8.8 th/mm3 (4.0-11.0)
[2018-04-21 07:03] LABS: Anion Gap 4 meq/L (5-15); Aspartate Aminotransferase 17 U/L (15-37); Blood Urea Nitrogen 7 mg/dL (7-18); Calcium 9.3 mg/dL (8.5-10.1); Carbon Dioxide 29.1 meq/L (21.0-32.0); Chloride 105 meq/L (98-107); Glomerular Filtration Rate Greater Than 89 mL/min (>89); Glucose,Random 77 mg/dL (74-106); Potassium 4.1 meq/L (3.5-5.1); Sodium 138 meq/L (136-145)
[2018-04-21 07:11] LABS: Alanine Aminotransferase 27 U/L (10-53); Alkaline Phosphatase 37 U/L (45-117); Free T4 (Free Thyroxine) 1.09 ng/dL (0.76-1.46); Phosphorus 2.8 mg/dL (2.5-4.9); Total Protein 8.8 g/dL (6.4-8.2)
[2018-04-21] MEDS: Senna/Docusate Sodium 8.6/50 MG Tablet PO SCH ×2 (09:41→20:57)
[2018-04-21] MEDS: Methocarbamol 500 MG Tablet PO PRN ×3 (09:41→21:08)
[2018-04-21] MEDS: predniSONE 10 MG Tablet PO SCH (09:41)
--- NOTE | 2018-04-21 10:57 | P.PNIM ---
Subjective Interval history: 43-year-old female well known to me with a past medical history significant for myasthenia gravis presents the emergency today for evaluation of an exacerbation of her myasthenia. The patient reports that she has had bilateral lower extremity weakness such that she can barely walk and accompanying upper extremity arm weakness that is less severe. The patient denies any chest pain or shortness of breath. No abdominal pain. Complains of a migraine. No nausea /vomiting/diarrhea. No lateralizing signs/symptoms. No fevers/chills. Patient is seen sitting up in bed watching TV. Tells me that she is feeling better since getting her first IVIG treatment. She does have a migraine she tells me that this happens every time she gets a treatment and that she usually takes Imitrex. She denies any chest pain or shortness of breath. She is not having any difficulty breathing but she is having some issues swallowing. Patient tells me that this is typical if she has a flare. Denies any nausea vomiting or diarrhea. She does request both narcotic pain medications and benzodiazepines. 7-10 Follow-up visit myasthenia gravis exacerbation, anxiety, depression. Patient seen and examined today. Reports she did not sleep well overnight. States that she has been taking a medication that starts with "M" it is an antidepressant that helps her to sleep at night. Patient states he did her IVIG at 3:00 in the morning and is now very sleepy. Otherwise, Denies pain and discomfort. Denies SOB/ dyspnea. Denies chest pain, palpitations, headaches, dizziness. Denies fevers, chills, n/v/d. Denies dysuria. 7-11 WILL CONTINUE IVIG UNTIL COMPLETE NEEDS [address] DW RN AND PT AND CM AM LABS PT AND OT DOING WELL WITH PT POSSIBLE DRUG SEEKING BEHAVIOR -12 WANTED SOMETHING FOR HER BACK YESTERDAY PERCOCET HAVE BEEN STOPPED STARTED ON ROBAXIN NO NEW COMPLAINTS TODAY CONTINUE IVIG AM LABS MUCH MORE MOBILE TODAY Physical Exam Vital signs: Vital Signs 04/20/18 12:00 04/20/18 12:10 04/20/18 16:00 Temperature 98.0 F 98.2 F Pulse Rate 95 H 94 H 94 H Respiratory Rate 20 20 Blood Pressure 128/80 123/75 Pulse Oximetry 97 98 04/20/18 17:20 04/20/18 19:17 04/20/18 20:02 Temperature 97.9 F Pulse Rate 92 H 78 Respiratory Rate 18 Blood Pressure 118/75 Pulse Oximetry 97 97 04/20/18 23:40 04/21/18 00:04 04/21/18 00:21 Temperature 97.5 F L 97.5 F L Pulse Rate 69 70 67 Respiratory Rate 18 19 Blood Pressure 120/69 118/77 Pulse Oximetry 98 100 04/21/18 01:26 04/21/18 02:45 04/21/18 04:00 Temperature 97.6 F 97.5 F L 97.8 F Pulse Rate 76 62 78 Respiratory Rate 16 19 16 Blood Pressure 116/67 116/70 110/72 Pulse Oximetry 98 98 99 04/21/18 04:19 Temperature Pulse Rate 90 Respiratory Rate Blood Pressure Pulse Oximetry Intake & Output 04/20/18 04/21/18 04/21/18 18:59 06:59 18:59 Intake Total 1500 / 1500 3530 / 3530 Output Total 2100 / 2100 Balance 1493 / 1493 1430 / 1430 Intake: IV 1250 / 1250 D5W Inj 500 ML @ 30 mls/hr IV. 500 / 500 SIG UNSCH PRN Rx#:[id number] Privigen Inj 25 GM In Bag/ 250 / 250 Syringe 1 EACH @ 31.25 mls/hr IV.SIG Q24H ASHOK Rx#:[id number] NS Inj 500 ML @ 500 mls/hr IV. 500 / 500 SIG .Q1H PRN Rx#:[id number] Oral 1500 / 1500 2280 / 2280 Output: Urine 2100 / 2100 Other: # Voids 2 Date of Last Bowel Movement 04/20/18 04/20/18 # Bowel Movements 2 Narrative: GENERAL: This is a well-nourished, well-developed patient, in no apparent distress. SKIN: Warm and dry. HEENT: Normocephalic. Pupils equal round and reactive. Bilateral upper eyelids trace edema. Nose without bleeding. Airway patent. NECK: Trachea midline. CARDIOVASCULAR: Regular rate and rhythm without murmurs, gallops, or rubs. RESPIRATORY: Clear to auscultation. Breath sounds equal bilaterally. No wheezes , rales, or rhonchi. GASTROINTESTINAL: Abdomen soft, non-tender, nondistended. Bowel Sounds normoactive x4. MUSCULOSKELETAL: Extremities without clubbing, cyanosis, or edema. NEUROLOGICAL: Awake and alert. Oriented to time, place, person. No focal neuro deficit. Moves all extremities. Normal speech. INSIGHT AND JUDGEMENT ARE GOOD; MOOD AND BEHAVIORS ARE SOMEWHAT APPROPRIATE Results - Labs CBC & Chem 7: 04/21/18 06:00 04/21/18 06:00 Laboratory Results - last 24 hr 04/21/18 04/21/18 06:00 06:00 WBC 8.8 RBC 4.16 Hgb 12.6 Hct 37.4 MCV 89.8 MCH 30.3 MCHC 33.7 RDW 13.7 Plt Count 403 MPV 7.7 Neut % (Auto) 61.0 Lymph % (Auto) 27.7 Bledsoe % (Auto) 9.0 H Eos % (Auto) 1.5 Baso % (Auto) 0.8 Neut # (Auto) 5.4 Lymph # (Auto) 2.4 Bledsoe # (Auto) 0.8 Eos # (Auto) 0.1 Baso # (Auto) 0.1 WBC Differential . Differential Comment Auto diff final Sodium 138 Potassium 4.1 Chloride 105 Carbon Dioxide 29.1 Anion Gap 4 L BUN 7 Creatinine 0.57 Estimated GFR Greater than 89 Random Glucose 77 Calcium 9.3 Phosphorus 2.8 Magnesium 2.0 Total Bilirubin 0.3 AST 17 ALT 27 Alkaline Phosphatase 37 L Total Protein 8.8 H D Albumin 3.0 L TSH 1.230 Free T4 1.09 - Imaging ITS Impressions Chest X-Ray 04/17/18 20:42 CONCLUSION: [id number] tip in superior vena cava. No active disease. - Procedures None Assessment and Plan - Assessment (1) Myasthenia gravis Code(s): G70.00 - Myasthenia gravis without (acute) exacerbation Status: Acute - Plan 43-year-old female well known to me with a past medical history significant for myasthenia gravis presents the emergency today for evaluation of an exacerbation of her myasthenia. Myasthenia gravis exacerbation -Neurology consulted, Dr. Kirby -plan is for 5 days of IVIG. Patient is well -known to neurology and they confirm a history of drug-seeking behavior. -Patient reports swallow difficulty and leg weakness due to flare -will consult PT and ST -States improved swallowing. -Last dose IVIG pos 04/22 Migraine -Home Imitrex restarted Anxiety, depression -Home Atarax restarted. No benzodiazepines, [facility] verified patient previously on Alprazolam. Her med rec showed clonazepam 3 times daily which should not be restarted. -Mirtazapine restarted Chronic pain -Patient states she has pain management and outpatient however per review of [facility] last medication for narcotic was given 02/04/18 from the hospital for 2 days. Database showed most recent rx from pain mgt providers on 12/31/17 for #30 days and on 11/12/17 for #30 days. -Currently on percocet 5/325mh for pain-- WILL STOP -Do not DC patient with pain meds. Follow with Pain management MD. BACK PAIN/SPASMS MAKE ROBAXIN AVAILABLE HOPEFULLY HOME IN 1 OR 2 DAYS Code Status: FULL CODE Discussed Condition With: RN AND PT AND CM Discharge Planning: HOME ONCE IVIG COMPLETE
[2018-04-21 16:51] LABS: Hemoglobin A1c 4.9 % (4.3-6.0)
[2018-04-21] MEDS: Acetaminophen 325 MG Tablet PO PRN (21:04)
[2018-04-21] MEDS: Mirtazapine 15 MG Tablet PO SCH (21:04)
[2018-04-21] MEDS: Gabapentin 300 MG Capsule PO SCH (21:04)
[2018-04-21] MEDS: Sodium Chlor 0.9% Inj 500 ML IV.SIG PRN (21:10)
[2018-04-21] MEDS: IVIG (Immune Globulin) Inj 25 GM in Syringe/Bag 1 EACH IV.SIG SCH (22:22)
[2018-04-22] MEDS: Heparin Central Flush 100 UNIT/ML 5 ML Vial IV.FLUSH PRN ×2 (00:33→05:35)
[2018-04-22] MEDS: Pyridostigmine Bromide 60 MG Tablet PO SCH ×3 (05:34→18:19)
[2018-04-22 06:39] LABS: Baso # (Auto) 0.1 th/mm3 (0.0-0.2); Baso % (Auto) 0.9 % (0.0-2.0); Eos # (Auto) 0.1 th/mm3 (0.0-0.4); Eos % (Auto) 1.3 % (0.0-4.0); Hematocrit 38.2 % (35.0-46.0); Hemoglobin 12.9 gm/dL (11.6-15.3); Lymph # (Auto) 2.7 th/mm3 (1.0-4.8); Lymph % (Auto) 28.9 % (9.0-44.0); Mean Corpuscular HGB Conc 33.7 % (32.0-36.0); Mean Corpuscular Hemoglobin 30.2 pg (27.0-34.0); Mean Corpuscular Volume 89.7 fL (80.0-100.0); Mean Platelet Volume 7.8 fL (7.0-11.0); Mono # (Auto) 0.7 th/mm3 (0.0-0.9); Mono % (Auto) 7.1 % (0.0-8.0); Neut # (Auto) 5.8 th/mm3 (1.8-7.7); Neut % (Auto) 61.8 % (16.0-70.0); Platelet Count 412 th/mm3 (150-450); Red Blood Count 4.25 mil/mm3 (4.00-5.30); Red Cell Distribution Width 13.9 % (11.6-17.2); White Blood Count 9.4 th/mm3 (4.0-11.0)
[2018-04-22 06:59] LABS: Alanine Aminotransferase 32 U/L (10-53); Albumin 3.1 g/dL (3.4-5.0); Anion Gap 1 meq/L (5-15); Aspartate Aminotransferase 18 U/L (15-37); Blood Urea Nitrogen 7 mg/dL (7-18); Carbon Dioxide 33.2 meq/L (21.0-32.0); Chloride 103 meq/L (98-107); Glomerular Filtration Rate Greater Than 89 mL/min (>89); Glucose,Random 66 mg/dL (74-106); Magnesium 1.9 mg/dL (1.5-2.5); Phosphorus 3.2 mg/dL (2.5-4.9); Sodium 137 meq/L (136-145)
[2018-04-22 07:02] LABS: Alkaline Phosphatase 36 U/L (45-117); Total Protein 9.1 g/dL (6.4-8.2)
[2018-04-22] MEDS: Senna/Docusate Sodium 8.6/50 MG Tablet PO SCH (08:20)
[2018-04-22] MEDS: predniSONE 10 MG Tablet PO SCH (08:20)
[2018-04-22] MEDS: Methocarbamol 500 MG Tablet PO PRN (11:24)
--- NOTE | 2018-04-22 11:50 | P.PNIM ---
Subjective Interval history: 43-year-old female well known to me with a past medical history significant for myasthenia gravis presents the emergency today for evaluation of an exacerbation of her myasthenia. The patient reports that she has had bilateral lower extremity weakness such that she can barely walk and accompanying upper extremity arm weakness that is less severe. The patient denies any chest pain or shortness of breath. No abdominal pain. Complains of a migraine. No nausea /vomiting/diarrhea. No lateralizing signs/symptoms. No fevers/chills. Patient is seen sitting up in bed watching TV. Tells me that she is feeling better since getting her first IVIG treatment. She does have a migraine she tells me that this happens every time she gets a treatment and that she usually takes Imitrex. She denies any chest pain or shortness of breath. She is not having any difficulty breathing but she is having some issues swallowing. Patient tells me that this is typical if she has a flare. Denies any nausea vomiting or diarrhea. She does request both narcotic pain medications and benzodiazepines. 7-10 Follow-up visit myasthenia gravis exacerbation, anxiety, depression. Patient seen and examined today. Reports she did not sleep well overnight. States that she has been taking a medication that starts with "M" it is an antidepressant that helps her to sleep at night. Patient states he did her IVIG at 3:00 in the morning and is now very sleepy. Otherwise, Denies pain and discomfort. Denies SOB/ dyspnea. Denies chest pain, palpitations, headaches, dizziness. Denies fevers, chills, n/v/d. Denies dysuria. 7-11 WILL CONTINUE IVIG UNTIL COMPLETE NEEDS 5 TREATMENTS DELFINA RN AND PT AND CM AM LABS PT AND OT DOING WELL WITH PT POSSIBLE DRUG SEEKING BEHAVIOR 7-12 WANTED SOMETHING FOR HER BACK YESTERDAY PERCOCET HAVE BEEN STOPPED STARTED ON ROBAXIN NO NEW COMPLAINTS TODAY CONTINUE IVIG AM LABS MUCH MORE MOBILE TODAY 7-13 WILL GIVE IVIG ONE FINAL DOSE NOW AND CAN BE DCED TO HOME TODAY DELFINA RN AND PT AND CM Physical Exam Vital signs: Vital Signs 04/21/18 12:00 04/21/18 16:00 04/21/18 17:51 Temperature 98.2 F 98.0 F Pulse Rate 103 H 77 Respiratory Rate 16 16 Blood Pressure 131/79 109/70 Pulse Oximetry 97 96 97 04/21/18 19:16 04/21/18 19:33 04/21/18 20:37 Temperature 97.7 F Pulse Rate 89 82 Respiratory Rate 18 Blood Pressure 118/71 Pulse Oximetry 97 97 04/21/18 22:19 04/21/18 22:22 04/21/18 23:07 Temperature 97.8 F Pulse Rate 65 65 78 Respiratory Rate 20 Blood Pressure 130/72 Pulse Oximetry 96 04/21/18 23:15 04/22/18 00:20 04/22/18 04:06 Temperature 97.8 F 97.5 F L Pulse Rate 74 84 68 Respiratory Rate 16 16 Blood Pressure 103/60 119/72 Pulse Oximetry 97 96 04/22/18 05:26 Temperature 97.3 F L Pulse Rate 72 Respiratory Rate 16 Blood Pressure 107/70 Pulse Oximetry 98 Intake & Output 04/21/18 04/22/18 04/22/18 18:59 06:59 18:59 Intake Total 1530 / 1530 Balance 1530 / 1530 Weight 60.3 kg Intake: IV 750 / 750 Privigen Inj 25 GM In Bag/ 250 / 250 Syringe 1 EACH @ 31.25 mls/hr IV.SIG Q24H ASHOK Rx#:[id number] NS Inj 500 ML @ 500 mls/hr IV. 500 / 500 SIG .Q1H PRN Rx#:[id number] Oral 780 / 780 Other: # Voids 4 Date of Last Bowel Movement 04/20/18 04/20/18 # Bowel Movements 1 Narrative: GENERAL: This is a well-nourished, well-developed patient, in no apparent distress. SKIN: Warm and dry. HEENT: Normocephalic. Pupils equal round and reactive. Bilateral upper eyelids trace edema. Nose without bleeding. Airway patent. NECK: Trachea midline. CARDIOVASCULAR: Regular rate and rhythm without murmurs, gallops, or rubs. RESPIRATORY: Clear to auscultation. Breath sounds equal bilaterally. No wheezes , rales, or rhonchi. GASTROINTESTINAL: Abdomen soft, non-tender, nondistended. Bowel Sounds normoactive x4. MUSCULOSKELETAL: Extremities without clubbing, cyanosis, or edema. NEUROLOGICAL: Awake and alert. Oriented to time, place, person. No focal neuro deficit. Moves all extremities. Normal speech. INSIGHT AND JUDGEMENT ARE GOOD; MOOD AND BEHAVIORS ARE SOMEWHAT APPROPRIATE Results - Labs CBC & Chem 7: 04/22/18 05:40 04/22/18 05:40 Laboratory Results - last 24 hr 04/21/18 04/22/18 04/22/18 06:00 05:40 05:40 WBC 9.4 RBC 4.25 Hgb 12.9 Hct 38.2 MCV 89.7 MCH 30.2 MCHC 33.7 RDW 13.9 Plt Count 412 MPV 7.8 Neut % (Auto) 61.8 Lymph % (Auto) 28.9 Foster % (Auto) 7.1 Eos % (Auto) 1.3 Baso % (Auto) 0.9 Neut # (Auto) 5.8 Lymph # (Auto) 2.7 Foster # (Auto) 0.7 Eos # (Auto) 0.1 Baso # (Auto) 0.1 WBC Differential . Differential Comment Auto diff final Sodium 137 Potassium 4.0 Chloride 103 Carbon Dioxide 33.2 H Anion Gap 1 L BUN 7 Creatinine 0.57 Estimated GFR Greater than 89 Random Glucose 66 L Hemoglobin A1c 4.9 Calcium 9.0 Phosphorus 3.2 Magnesium 1.9 Total Bilirubin 0.2 AST 18 ALT 32 Alkaline Phosphatase 36 L Total Protein 9.1 H Albumin 3.1 L - Imaging ITS Impressions Chest X-Ray 04/17/18 20:42 CONCLUSION: Ilyzzz-k-Anqe tip in superior vena cava. No active disease. - Procedures None Assessment and Plan - Assessment (1) Myasthenia gravis Code(s): G70.00 - Myasthenia gravis without (acute) exacerbation Status: Acute - Plan 43-year-old female well known to me with a past medical history significant for myasthenia gravis presents the emergency today for evaluation of an exacerbation of her myasthenia. Myasthenia gravis exacerbation -Neurology consulted, Dr. Kirby -plan is for 5 days of IVIG. Patient is well -known to neurology and they confirm a history of drug-seeking behavior. -Patient reports swallow difficulty and leg weakness due to flare -will consult PT and ST -States improved swallowing. -Last dose IVIG 04/22 TODAY Migraine -Home Imitrex restarted Anxiety, depression -Home Atarax restarted. No benzodiazepines, [employer] verified patient previously on Alprazolam. Her med rec showed clonazepam 3 times daily which should not be restarted. -Mirtazapine restarted Chronic pain -Patient states she has pain management and outpatient however per review of [facility] last medication for narcotic was given 02/04/18 from the hospital for 2 days. Database showed most recent rx from pain mgt providers on 12/31/17 for #30 days and on 11/12/17 for #30 days. -Currently on percocet 5/325mh for pain-- WILL STOP -Do not DC patient with pain meds. Follow with Pain management MD. BACK PAIN/SPASMS MAKE ROBAXIN AVAILABLE DC TO HOME AFTER IVIG GIVEN Code Status: FULL CODE Discussed Condition With: RN AND PT AND CM Discharge Planning: DC TO HOME AFTER IVIG TODAY
--- NOTE | 2018-04-22 12:02 | P.DS ---
Date of admission: 04/17/18 22:55 Primary care physician: Manuel Mack Attending physician on discharge: Pete Angel Anticipated date of discharge: 04/22/18 Brief History from admission: 43-year-old female well known to me with a past medical history significant for myasthenia gravis presents the emergency today for evaluation of an exacerbation of her myasthenia. The patient reports that she has had bilateral lower extremity weakness such that she can barely walk and accompanying upper extremity arm weakness that is less severe. The patient denies any chest pain or shortness of breath. No abdominal pain. Complains of a migraine. No nausea /vomiting/diarrhea. No lateralizing signs/symptoms. No fevers/chills. DS: Diagnosis - Discharge Diagnosis (1) Myasthenia gravis Status: Acute (2) Anxiety Status: Acute (3) Depressed Status: Chronic (4) Chronic low back pain Status: Chronic (5) Degenerative disc disease Status: Chronic (6) History of thymectomy Status: Chronic DS: Medications - Discharge Medications Prescriptions: aspirin [Aspir-81] 81 mg PO DAILY #30 tab gabapentin 300 mg PO QPM #30 cap hydroxyzine HCl 25 mg PO QID PRN #120 tab PRN Reason: Acute Pain methocarbamol 500 mg PO Q6H PRN #12 tab PRN Reason: BACK SPASMS mirtazapine 45 mg PO DAILY #30 tab mycophenolate mofetil [CellCept] 500 mg/m2 PO TID #180 tab prednisone 20 mg PO DAILY #60 tab pyridostigmine bromide 180 mg PO BID #60 tab sennosides [Senna Lax] 17.2 mg PO Q12H PRN #120 tab PRN Reason: Moderate Constipation sumatriptan succinate 50 mg PO Q2-4H PRN #18 tab PRN Reason: Acute Pain DS: Summary Hospital Course: 43-year-old female well known to me with a past medical history significant for myasthenia gravis presents the emergency today for evaluation of an exacerbation of her myasthenia. The patient reports that she has had bilateral lower extremity weakness such that she can barely walk and accompanying upper extremity arm weakness that is less severe. The patient denies any chest pain or shortness of breath. No abdominal pain. Complains of a migraine. No nausea /vomiting/diarrhea. No lateralizing signs/symptoms. No fevers/chills. Patient is seen sitting up in bed watching TV. Tells me that she is feeling better since getting her first IVIG treatment. She does have a migraine she tells me that this happens every time she gets a treatment and that she usually takes Imitrex. She denies any chest pain or shortness of breath. She is not having any difficulty breathing but she is having some issues swallowing. Patient tells me that this is typical if she has a flare. Denies any nausea vomiting or diarrhea. She does request both narcotic pain medications and benzodiazepines. 7-10 Follow-up visit myasthenia gravis exacerbation, anxiety, depression. Patient seen and examined today. Reports she did not sleep well overnight. States that she has been taking a medication that starts with "M" it is an antidepressant that helps her to sleep at night. Patient states he did her IVIG at 3:00 in the morning and is now very sleepy. Otherwise, Denies pain and discomfort. Denies SOB/ dyspnea. Denies chest pain, palpitations, headaches, dizziness. Denies fevers, chills, n/v/d. Denies dysuria. 7-11 WILL CONTINUE IVIG UNTIL COMPLETE NEEDS [address] RN AND PT AND CM AM LABS PT AND OT DOING WELL WITH PT POSSIBLE DRUG SEEKING BEHAVIOR 7-12 WANTED SOMETHING FOR HER BACK YESTERDAY PERCOCET HAVE BEEN STOPPED STARTED ON ROBAXIN NO NEW COMPLAINTS TODAY CONTINUE IVIG AM LABS MUCH MORE MOBILE TODAY 7-13 WILL GIVE IVIG ONE FINAL DOSE NOW AND CAN BE DCED TO HOME TODAY DELFINA RN AND PT AND CM - Time Spent with Patient Total time spent providing and/or coordinating discharge services: Greater than 30 minutes - Quality: VTE Deep Vein Thrombosis/Pulmonary Embolism Present on Admission: No Exam Vital signs: Vital Signs 04/21/18 12:00 04/21/18 16:00 04/21/18 17:51 Temperature 98.2 F 98.0 F Pulse Rate 103 H 77 Respiratory Rate 16 16 Blood Pressure 131/79 109/70 Pulse Oximetry 97 96 97 04/21/18 19:16 04/21/18 19:33 04/21/18 20:37 Temperature 97.7 F Pulse Rate 89 82 Respiratory Rate 18 Blood Pressure 118/71 Pulse Oximetry 97 97 04/21/18 22:19 04/21/18 22:22 04/21/18 23:07 Temperature 97.8 F Pulse Rate 65 65 78 Respiratory Rate 20 Blood Pressure 130/72 Pulse Oximetry 96 04/21/18 23:15 04/22/18 00:20 04/22/18 04:06 Temperature 97.8 F 97.5 F L Pulse Rate 74 84 68 Respiratory Rate 16 16 Blood Pressure 103/60 119/72 Pulse Oximetry 97 96 04/22/18 05:26 Temperature 97.3 F L Pulse Rate 72 Respiratory Rate 16 Blood Pressure 107/70 Pulse Oximetry 98 Intake & Output 04/21/18 04/22/18 04/22/18 18:59 06:59 18:59 Intake Total 1530 / 1530 Balance 1530 / 1530 Weight 60.3 kg Intake: IV 750 / 750 Privigen Inj 25 GM In Bag/ 250 / 250 Syringe 1 EACH @ 31.25 mls/hr IV.SIG Q24H ASHOK Rx#:[id number] NS Inj 500 ML @ 500 mls/hr IV. 500 / 500 SIG .Q1H PRN Rx#:[id number] Oral 780 / 780 Other: # Voids 4 Date of Last Bowel Movement 04/20/18 04/20/18 # Bowel Movements 1 Narrative: GENERAL: Awake alert and oriented 3 talkative and cooperative SKIN: Warm and dry. HEAD: Atraumatic. Normocephalic. EYES: Pupils equal and round. No scleral icterus. No injection or drainage. ENT: No nasal bleeding or discharge. Mucous membranes pink and moist. NECK: Trachea midline. No JVD. CARDIOVASCULAR: Regular rate and rhythm. S1-S2 no S3 or S4 RESPIRATORY: No accessory muscle use. Clear to auscultation. Breath sounds equal bilaterally. GASTROINTESTINAL: Abdomen soft, non-tender, nondistended. Hepatic and splenic margins not palpable. MUSCULOSKELETAL: Extremities without clubbing, cyanosis, or edema. No obvious deformities. NEUROLOGICAL: Awake and alert. No obvious cranial nerve deficits. Motor grossly within normal limits. Five out of 5 muscle strength in the arms and legs. Normal speech. PSYCHIATRIC: Appropriate mood and affect; insight and judgment normal. Results Procedures completed during hospitalization: None Labs on day of discharge: Labs from last 24 hours 04/22/18 04/22/18 04/21/18 05:40 05:40 06:00 WBC 9.4 RBC 4.25 Hgb 12.9 Hct 38.2 MCV 89.7 MCH 30.2 MCHC 33.7 RDW 13.9 Plt Count 412 MPV 7.8 Neut % (Auto) 61.8 Lymph % (Auto) 28.9 [place] % (Auto) 7.1 Eos % (Auto) 1.3 Baso % (Auto) 0.9 Neut # (Auto) 5.8 Lymph # (Auto) 2.7 [place] # (Auto) 0.7 Eos # (Auto) 0.1 Baso # (Auto) 0.1 WBC Differential . Differential Comment Auto diff final Sodium 137 Potassium 4.0 Chloride 103 Carbon Dioxide 33.2 H Anion Gap 1 L BUN 7 Creatinine 0.57 Estimated GFR Greater than 89 Random Glucose 66 L Hemoglobin A1c 4.9 Calcium 9.0 Phosphorus 3.2 Magnesium 1.9 Total Bilirubin 0.2 AST 18 ALT 32 Alkaline Phosphatase 36 L Total Protein 9.1 H Albumin 3.1 L - Impressions ITS Impressions Chest X-Ray 04/17/18 20:42 CONCLUSION: [id number] tip in superior vena cava. No active disease. Discharge Plan - Discharge Disposition Patient Disposition: 01 Discharge Home - Discharge Condition Condition: Good - Discharge Order Discharge Orders: Discharge Order (Routine); Ordered 04/22/18 Ordered By: Pete Angel - Discharge Details Anticipated Discharge Date: 04/22/18 Discharge Comment: Patient has outpatient pain management and is to follow up with them. - Physicians Team Attending Provider: Pete Angel Other Providers: Stella Kirby MD
[2018-04-22] MEDS ORDERED: IMMUNE GLOBULIN 10 GM/100 ML IV.SIG ONE (13:00)
[2018-04-22] MEDS ORDERED: IVIG (Immune Globulin) Inj 25 GM in Syringe/Bag 1 EACH IV.SIG ONE (13:00)
[2018-04-22] MEDS: Sodium Chlor 0.9% Inj 500 ML IV.SIG PRN (15:07)
== END 2018-04-22 20:30 ==
LOC: NEPE 18:41 → NEDA 22:55 → N06 04-18 01:05 → HCIN 04-19 17:49
PROVIDERS: ADMIT Family Medicine; ATTEND Family Medicine

== ENCOUNTER 2018-06-11 11:47 | Inpatient (IN) ==
[2018-06-11] MEDS ORDERED: Sod Chloride 0.9% Inj 1,000 ML IV.SIG ONE (11:59)
--- NOTE | 2018-06-11 12:18 | ED ---
HPI General Chief complaint: Weakness Stated complaint: Weakness Time Seen by Provider: 06/11/18 11:58 Source: patient and EMS Mode of arrival: EMS Limitations: no limitations History of Present Illness HPI narrative: 43-year-old female with a history of chronic myasthenia gravis as well as chronic pain the presents to the ED for evaluation of myasthenia gravis flareup. Patient states that she gets transfusion of IVIG every month. Per patient she is due for one next week. Per patient the past week she is becoming more weak on her lower legs which is her usual symptoms. Per patient today she tried to go up a couple of steps and she was not able to do so and fell into her back. She has been having back pain because of it. She states that her pain is 10 out of 10. She does have a history of chronic DJD as well as chronic low back pain for which he takes Lortab. Per patient she follows with Dr. Vizcarra for neurology. Per patient she denies any shortness of breath but she does feel weak to her legs. Per patient she usually gets transfusion of 2 days of 50 mg of IVIG. She has a port for it. She was last seen here in April for similar symptoms. She denies hitting her head. No blood thinner use. No other medical issues. No fevers chills or sweats. Pain is only to the lower back. Per patient she had the weakness before she fell. Per patient is a similar symptoms from before. Related Data Home Medications Medication Instructions Recorded Confirmed Lactobacillus acidoph-L.bulgar 3 tab PO DAILY 04/17/18 06/11/18 [Floranex] butalbital-acetaminophen See Label Instructions .ROUTE 04/17/18 06/11/18 .COMPLEX clonazepam [Klonopin] 0.5 mg PO TID 04/18/18 06/11/18 hydrocodone-acetaminophen 1 tab PO Q4H PRN 04/18/18 06/11/18 oxycodone-acetaminophen 1 tab PO Q4-6H PRN 06/12/18 06/12/18 Previous Rx's Medication Instructions Recorded aspirin [Aspir-81] 81 mg PO DAILY #30 tab 04/22/18 gabapentin 300 mg PO QPM #30 cap 04/22/18 hydroxyzine HCl 25 mg PO QID PRN #120 tab 04/22/18 methocarbamol 500 mg PO Q6H PRN #12 tab 04/22/18 mirtazapine 45 mg PO DAILY #30 tab 04/22/18 mycophenolate mofetil [CellCept] 500 mg/m2 PO TID #180 tab 04/22/18 prednisone 20 mg PO DAILY #60 tab 04/22/18 pyridostigmine bromide 180 mg PO BID #60 tab 04/22/18 sennosides [Senna Lax] 17.2 mg PO Q12H PRN #120 tab 04/22/18 sumatriptan succinate 50 mg PO Q2-4H PRN #18 tab 04/22/18 Allergies Allergy/AdvReac Type Severity Reaction Status Date / Time penicillin G Allergy Severe Anaphylaxis Verified 04/18/18 02:21 promethazine AdvReac Severe NAUSEOUS Verified 04/18/18 02:21 Review of Systems ROS: all other systems reviewed are negative [facility] Medical History Medical History Chronic low back pain (Chronic) Degenerative disc disease (Chronic) Anxiety (Acute) Depressed (Chronic) Myasthenia gravis (Acute) Surgical History Surgical History History of thymectomy (Chronic) History of hip replacement (Acute) Hx of tonsillectomy (Acute) Hx of tubal ligation (Acute) Social History Social History Substance History: No History of Abuse Second Hand Smoke Exposure: No Smoking Status: Former smoker Tobacco Type: Cigarettes How Often Do You Have a Drink Containing Alcohol: Never Recent Travel in [facility] within the Last 8 Weeks: No Recent Out of Country Travel within the Last 8 Weeks: No Immunization History Tetanus Immunization: <5 Years Hx Influenza Vaccine This Season: No Exam Narrative Exam Narrative: GENERAL: Well-appearing SKIN: Focused skin assessment warm/dry. HEAD: Atraumatic. Normocephalic. EYES: Pupils equal and round. No scleral icterus. No injection or drainage. ENT: No nasal bleeding or discharge. Mucous membranes pink and moist. Tongue is midline. No uvula deviation. NECK: Trachea midline. No JVD. CARDIOVASCULAR: Regular rate and rhythm. No murmur appreciated. RESPIRATORY: No accessory muscle use. Clear to auscultation. Breath sounds equal bilaterally. GASTROINTESTINAL: Abdomen soft, non-tender, nondistended. Hepatic and splenic margins not palpable. MUSCULOSKELETAL: No obvious deformities. No clubbing. No cyanosis. No edema. Full range of motion of the upper extremities. Patient cannot move the lower extremities and she does have obvious weakness in the lower extremities. Patient cannot lift them for me but I can left them for her. She does have 2+ pulses in the lower extremities. Sensation appears to be intact bilaterally. Some reproducible pain in the lower back noted. No thoracic or cervical spine tenderness to palpation. No signs of trauma to the head. NEUROLOGICAL: Awake and alert. No obvious cranial nerve deficits. Motor grossly within normal limits. Normal speech. PSYCHIATRIC: Appropriate mood and affect; insight and judgment normal. Course Initial Documented Vital Signs Temperature 99.1 F 06/11/18 12:04 Pulse Rate 92 H 06/11/18 12:04 Respiratory Rate 15 06/11/18 12:04 Blood Pressure 120/73 06/11/18 12:04 Pulse Oximetry 95 06/11/18 12:04 Last Documented Vital Signs Temperature 98.0 F 06/13/18 08:22 Pulse Rate 96 H 06/13/18 11:13 Respiratory Rate 20 06/13/18 08:22 Blood Pressure 108/79 06/13/18 08:22 Pulse Oximetry 98 06/13/18 08:22 Medical Decision Making DARRIAN Attestation DARRIAN supervised visit: Yes Attestation: I, Dr. Spann, have reviewed the advance practice practitioner's documentation and am in agreement, met with the patient face to face, made the diagnosis, and the medical decision making was done by me. *My assessment and Findings: Patient seen and examined by me in addition to Flaco Bryson PA-C. This is a 43-year-old female history of myasthenia gravis , she is weak in flexion of the legs, she is protecting her airway well, no decreased respirations, she is able to do a full and complete respiratory cycle for me. Her lungs are clear to auscultation. She is requesting Percocet for pain and at this time I think the risks outweigh the benefits that she appears comfortable, will contact nephrology anticipate IVIG infusion and admission to the hospital. I discussed this patient with Dr. De La Fuente who recommended 0.4 g/kg IV over 8 hours daily 5 days. Patient continues to request narcotic pain medication for her chronic back pain. SHe appears comfortable but i am uncomfortable about further depressing her respiratory status especially as per protocol will receive dose of benadryl prior to infusion. Toradol given. Will defer opiates to inpatient team. MDM Narrative Medical decision making narrative: 43-year-old female that presents to the ED for evaluation of weakness to the lower legs. Patient was properly examined and was found to have signs and symptoms consistent appears to be likely myasthenia gravis exacerbation. Labs and imaging order. Labs and imaging were essentially unremarkable. My attending Dr. Spann spoke with neurology electron beam welding machine operator Dr. De La Fuente who recommended IVIG. Patient was given IV Ig recommended by the neurologist ordered by my attending Dr. Spann. Dr. De La Fuente recommend admission to medicine. Patient agree with admission. This time patient does complain of 10 out of 10 pain. Because of the patient's myasthenia gravis we are concerned to give her narcotics as he could increase her chances of respiratory failure. Patient was given nonnarcotic medications at this time until symptoms improve. Patient understands. Case discussed with Dr Kinney who agreed to admission to her service. Medical Screen Exam Complete: Yes Emergency Medical Condition: Yes Differential Diagnosis Differential Diagnosis: Myasthenia gravis exacerbation versus back pain versus leg weakness versus fracture Medical Records Medical records reviewed: Yes I reviewed the patient's medical records. Lab Data Lab results reviewed: Yes I reviewed the patient's lab results. Lab results narrative: TSH within normal limits. Troponin negative. Result diagrams: 06/12/18 04:35 06/12/18 04:35 Lab Results 06/11/18 06/11/18 06/11/18 Range/Units 12:20 12:20 12:21 WBC 10.6 (4.0-11.0) th/mm3 RBC 4.34 (4.00-5.30) mil/mm3 Hgb 13.2 (11.6-15.3) gm/dL Hct 39.8 (35.0-46.0) % MCV 91.7 (80.0-100.0) fL MCH 30.4 (27.0-34.0) pg MCHC 33.2 (32.0-36.0) % RDW 14.5 (11.6-17.2) % Plt Count 372 (150-450) th/mm3 MPV 7.9 (7.0-11.0) fL Neut % (Auto) 68.6 (16.0-70.0) % Lymph % (Auto) 21.7 (9.0-44.0) % [place] % (Auto) 7.5 (0.0-8.0) % Eos % (Auto) 1.6 (0.0-4.0) % Baso % (Auto) 0.6 (0.0-2.0) % Neut # (Auto) 7.3 (1.8-7.7) th/mm3 Lymph # (Auto) 2.3 (1.0-4.8) th/mm3 [place] # (Auto) 0.8 (0.0-0.9) th/mm3 Eos # (Auto) 0.2 (0.0-0.4) th/mm3 Baso # (Auto) 0.1 (0.0-0.2) th/mm3 WBC Differential . Differential Comment Auto diff final Sodium 140 (136-145) meq/L Potassium 3.3 L (3.5-5.1) meq/L Chloride 104 (98-107) meq/L Carbon Dioxide 30.9 (21.0-32.0) meq/L Anion Gap 5 (5-15) meq/L BUN 3 L (7-18) mg/dL Creatinine 0.57 (0.50-1.00) mg/dL Estimated GFR Greater than 89 (>89) mL/min POC Glucose 92 (68-110) mg/dl Random Glucose 79 (74-106) mg/dL Calcium 8.4 L (8.5-10.1) mg/dL Magnesium 1.9 (1.5-2.5) mg/dL Total Bilirubin 0.2 (0.2-1.0) mg/dL AST 15 (15-37) U/L ALT 13 (10-53) U/L Alkaline Phosphatase 44 L (45-117) U/L Troponin I Less than 0.02 L (0.02-0.05) ng/mL Total Protein 7.5 (6.4-8.2) g/dL Albumin 3.4 (3.4-5.0) g/dL TSH 0.939 (0.358-3.740) uIU/mL Urine Color (Yellw/Straw) Urine Clarity (Clear) Urine pH (5.0-8.5) Ur Specific [place] (1.002-1.035) Urine Protein (Neg-Trace) mg/dL Urine Glucose (UA) (Negative) mg/dL Urine Ketones (Negative) mg/dL Urine Occult Blood (Negative) Urine Nitrate (Negative) Urine Bilirubin (Negative) Urine Urobilinogen (Less than 2) mg/dL Ur Leukocyte Esterase (Negative) Urine RBC (0-3) /hpf Urine WBC (0-5) /hpf Ur Squamous Epith Cells (0-5) /hpf Urine Bacteria (None) /hpf Micro UA Comment Ur Microscopic Review Urine Culture Comments St C. diff Tox Epid 027 (Negative) C. difficile Tox (PCR) (Negative) 06/11/18 06/12/18 06/12/18 Range/Units 13:14 00:00 04:35 WBC 8.1 (4.0-11.0) th/mm3 RBC 4.03 (4.00-5.30) mil/mm3 Hgb 12.4 (11.6-15.3) gm/dL Hct 36.8 (35.0-46.0) % MCV 91.5 (80.0-100.0) fL MCH 30.9 (27.0-34.0) pg MCHC 33.8 (32.0-36.0) % RDW 14.0 (11.6-17.2) % Plt Count 309 (150-450) th/mm3 MPV 8.3 (7.0-11.0) fL Neut % (Auto) 76.5 H (16.0-70.0) % Lymph % (Auto) 13.2 (9.0-44.0) % [place] % (Auto) 7.8 (0.0-8.0) % Eos % (Auto) 2.1 (0.0-4.0) % Baso % (Auto) 0.4 (0.0-2.0) % Neut # (Auto) 6.2 (1.8-7.7) th/mm3 Lymph # (Auto) 1.1 (1.0-4.8) th/mm3 [place] # (Auto) 0.6 (0.0-0.9) th/mm3 Eos # (Auto) 0.2 (0.0-0.4) th/mm3 Baso # (Auto) 0.0 (0.0-0.2) th/mm3 WBC Differential . Differential Comment Auto diff final Sodium (136-145) meq/L Potassium (3.5-5.1) meq/L Chloride (98-107) meq/L Carbon Dioxide (21.0-32.0) meq/L Anion Gap (5-15) meq/L BUN (7-18) mg/dL Creatinine (0.50-1.00) mg/dL Estimated GFR (>89) mL/min POC Glucose (68-110) mg/dl Random Glucose (74-106) mg/dL Calcium (8.5-10.1) mg/dL Magnesium (1.5-2.5) mg/dL Total Bilirubin (0.2-1.0) mg/dL AST (15-37) U/L ALT (10-53) U/L Alkaline Phosphatase (45-117) U/L Troponin I (0.02-0.05) ng/mL Total Protein (6.4-8.2) g/dL Albumin (3.4-5.0) g/dL TSH (0.358-3.740) uIU/mL Urine Color Yellow (Yellw/Straw) Urine Clarity Hazy H (Clear) Urine pH 6.0 (5.0-8.5) Ur Specific [place] 1.004 (1.002-1.035) Urine Protein Negative (Neg-Trace) mg/dL Urine Glucose (UA) Negative (Negative) mg/dL Urine Ketones Negative (Negative) mg/dL Urine Occult Blood Moderate H (Negative) Urine Nitrate Negative (Negative) Urine Bilirubin Negative (Negative) Urine Urobilinogen Less than 2 (Less than 2) mg/dL Ur Leukocyte Esterase Negative (Negative) Urine RBC 5 H (0-3) /hpf Urine WBC 1 (0-5) /hpf Ur Squamous Epith Cells 6 (0-5) /hpf Urine Bacteria Moderate H (None) /hpf Micro UA Comment Culture indicated Ur Microscopic Review Not Reportable Urine Culture Comments Culture indicated St C. diff Tox Epid 027 Negative (Negative) C. difficile Tox (PCR) Positive H (Negative) 06/12/18 Range/Units 04:35 WBC (4.0-11.0) th/mm3 RBC (4.00-5.30) mil/mm3 Hgb (11.6-15.3) gm/dL Hct (35.0-46.0) % MCV (80.0-100.0) fL MCH (27.0-34.0) pg MCHC (32.0-36.0) % RDW (11.6-17.2) % Plt Count (150-450) th/mm3 MPV (7.0-11.0) fL Neut % (Auto) (16.0-70.0) % Lymph % (Auto) (9.0-44.0) % [place] % (Auto) (0.0-8.0) % Eos % (Auto) (0.0-4.0) % Baso % (Auto) (0.0-2.0) % Neut # (Auto) (1.8-7.7) th/mm3 Lymph # (Auto) (1.0-4.8) th/mm3 [place] # (Auto) (0.0-0.9) th/mm3 Eos # (Auto) (0.0-0.4) th/mm3 Baso # (Auto) (0.0-0.2) th/mm3 WBC Differential Differential Comment Sodium 142 (136-145) meq/L Potassium 3.6 (3.5-5.1) meq/L Chloride 106 (98-107) meq/L Carbon Dioxide 29.6 (21.0-32.0) meq/L Anion Gap 6 (5-15) meq/L BUN 5 L (7-18) mg/dL Creatinine 0.56 (0.50-1.00) mg/dL Estimated GFR Greater than 89 (>89) mL/min POC Glucose (68-110) mg/dl Random Glucose 87 (74-106) mg/dL Calcium 8.0 L (8.5-10.1) mg/dL Magnesium (1.5-2.5) mg/dL Total Bilirubin (0.2-1.0) mg/dL AST (15-37) U/L ALT (10-53) U/L Alkaline Phosphatase (45-117) U/L Troponin I (0.02-0.05) ng/mL Total Protein (6.4-8.2) g/dL Albumin (3.4-5.0) g/dL TSH (0.358-3.740) uIU/mL Urine Color (Yellw/Straw) Urine Clarity (Clear) Urine pH (5.0-8.5) Ur Specific [place] (1.002-1.035) Urine Protein (Neg-Trace) mg/dL Urine Glucose (UA) (Negative) mg/dL Urine Ketones (Negative) mg/dL Urine Occult Blood (Negative) Urine Nitrate (Negative) Urine Bilirubin (Negative) Urine Urobilinogen (Less than 2) mg/dL Ur Leukocyte Esterase (Negative) Urine RBC (0-3) /hpf Urine WBC (0-5) /hpf Ur Squamous Epith Cells (0-5) /hpf Urine Bacteria (None) /hpf Micro UA Comment Ur Microscopic Review Urine Culture Comments St C. diff Tox Epid 027 (Negative) C. difficile Tox (PCR) (Negative) Imaging Data Attestation: I personally reviewed and interpreted this imaging study as follows : Radiologist's impression: Chest X-Ray 06/11/18 11:59 CONCLUSION: Negative examination. Lumbar Spine CT 06/11/18 12:13 CONCLUSION: Slight abutting of the exiting left L4 nerve root due to asymmetrical bulging disc L4-5 without any significant thecal sac stenosis. ECG Data Attestation: I personally reviewed and interpreted this ECG as follows: Interpretation: EKG shows sinus rhythm with a ventricular rate of 74, DC interval of 129 ms no sign of ST elevation. Read by me and attending. Discharge Plan Discharge Disposition Patient Disposition: 30 Still Patient Discharge Details Diagnosis: Myasthenia gravis Physicians Team ED Provider: Andrea Spann ED Midlevel Provider: Flaco Bryson Primary Care Provider: UNKNOWN, Attending Provider: Reginald Aleman Status ED Status: Left Department Discharge Information Discharge Date/Time: 06/11/18 20:03
[2018-06-11] MEDS ORDERED: Ketorolac Inj 30 MG/ML (IVP) Vial IV.PUSH ONE (12:32)
[2018-06-11 12:41] LABS: Baso # (Auto) 0.1 th/mm3 (0.0-0.2); Baso % (Auto) 0.6 % (0.0-2.0); Eos # (Auto) 0.2 th/mm3 (0.0-0.4); Eos % (Auto) 1.6 % (0.0-4.0); Hematocrit 39.8 % (35.0-46.0); Hemoglobin 13.2 gm/dL (11.6-15.3); Lymph # (Auto) 2.3 th/mm3 (1.0-4.8); Lymph % (Auto) 21.7 % (9.0-44.0); Mean Corpuscular HGB Conc 33.2 % (32.0-36.0); Mean Corpuscular Hemoglobin 30.4 pg (27.0-34.0); Mean Corpuscular Volume 91.7 fL (80.0-100.0); Mean Platelet Volume 7.9 fL (7.0-11.0); Mono # (Auto) 0.8 th/mm3 (0.0-0.9); Mono % (Auto) 7.5 % (0.0-8.0); Neut # (Auto) 7.3 th/mm3 (1.8-7.7); Neut % (Auto) 68.6 % (16.0-70.0); Platelet Count 372 th/mm3 (150-450); Red Blood Count 4.34 mil/mm3 (4.00-5.30); Red Cell Distribution Width 14.5 % (11.6-17.2); White Blood Count 10.6 th/mm3 (4.0-11.0)
--- NOTE | 2018-06-11 12:59 | XR ---
EXAM DATE: 06/11/2018 12:33 PM EDT AGE/SEX: 43 years / Female INDICATIONS: Congestion. CLINICAL DATA: This is the patient's initial encounter. Patient reports that signs and symptoms have been present for 1 day and indicates a pain score of 0/10. MEDICAL/SURGICAL HISTORY: . Myasthenia gravis . Thymectomy COMPARISON: [facility], CT CHEST W/O CONTRAST, 05/30/2018. . FINDINGS: A single AP view of the chest demonstrates the lungs to be symmetrically aerated without evidence of mass, infiltrate or effusion. The cardiomediastinal contours are unremarkable. Osseous structures a re intact. Left-sided portacatheter is noted and the tip overlies the SVC. CONCLUSION: Negative examination. Electronically signed by: Volodymyr Quinn MD 06/11/2018 12:57 PM EDT
[2018-06-11 13:01] LABS: Alanine Aminotransferase 13 U/L (10-53); Albumin 3.4 g/dL (3.4-5.0); Anion Gap 5 meq/L (5-15); Aspartate Aminotransferase 15 U/L (15-37); Blood Urea Nitrogen 3 mg/dL (7-18); Calcium 8.4 mg/dL (8.5-10.1); Carbon Dioxide 30.9 meq/L (21.0-32.0); Chloride 104 meq/L (98-107); Glomerular Filtration Rate Greater Than 89 mL/min (>89); Glucose,Random 79 mg/dL (74-106); Magnesium 1.9 mg/dL (1.5-2.5); Potassium 3.3 meq/L (3.5-5.1); Sodium 140 meq/L (136-145)
[2018-06-11] MEDS: Acetaminophen 325 MG Tablet PO SCH (13:10)
[2018-06-11 13:11] LABS: Alkaline Phosphatase 44 U/L (45-117); Thyroid Stimulating Hormone 0.939 uIU/mL (0.358-3.740); Total Protein 7.5 g/dL (6.4-8.2)
[2018-06-11] MEDS: Sodium Chlor 0.9% Inj 500 ML IV.SIG SCH (13:11)
[2018-06-11 14:04] LABS: Bacteria,Urine Moderate /hpf; Bilirubin,Urine Negative (Negative); Clarity,Urine Hazy (Clear); Color,Urine Yellow (Yellw/Straw); Glucose,Urine (UA) Negative (Negative); Leukocyte Esterase,Urine Negative (Negative); Nitrite,Urine Negative (Negative); Specific Gravity,Urine 1.004 (1.002-1.035); Squamous Epithelial Cell,Urine 6 /hpf (0-5)
--- NOTE | 2018-06-11 14:46 | P.HP ---
History of Present Illness Service: Hospitalist Primary Care Physician: UNKNOWN History of Present Illness: This is a 43 yo female with a medical history significant for myasthenia gravis and chronic pain, presents with concern of Myasthenia Flare. 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 She usually gets IVIG treatment every month. She is due for her next infusion next week. She states that she has been feeling progressively weak, most notably in her lower extremities. Today she reported that she fell and was unable to get up. [facility] was called. Patient is known to . ER physician contacted Dr. De La Fuente neurologist on -call and the patient was started on IVIG. Patient currently reporting pain in lower back. States weakness is worsening, she feeling weakness of her upper extremities, now also with a hard time keeping her eyes open. Patient has been intubated before as a result of a suicide attempt in December. She currently denies any suicidal or homicidal ideation. Denies difficulty breathing. Tolerating her secretions. Voice she states is her baseline. - Diagnosis (1) Chronic low back pain (2) Myasthenia gravis Review of Systems Constitutional: Reports weakness PMFSH - History History Provided By: Patient - Medical History Medical History: Medical History (Last Reviewed 06/11/18 @ 13:45 by RADHA Navarro) Chronic low back pain (Chronic) Degenerative disc disease (Chronic) Anxiety (Acute) Depressed (Chronic) Myasthenia gravis (Acute) - Surgical History Surgical History: Surgical History (Last Reviewed 06/11/18 @ 13:45 by RADHA Navarro) History of thymectomy (Chronic) History of hip replacement (Acute) Hx of tonsillectomy (Acute) Hx of tubal ligation (Acute) - Tobacco History Second Hand Smoke Exposure: No Tobacco Use In Past 30 Days: No Smoking Status: Former smoker Tobacco Type: Cigarettes - Alcohol History How Often Do You Have a Drink Containing Alcohol: Never - Substance Use History Substance History: No History of Abuse - Travel History Recent Travel in the [place] Within the Last 8 Weeks: No Recent Travel Out of the Country Within the Last 8 Weeks: No - Immunization History Tetanus Immunization: <5 Years Hx Influenza Vaccine This Season: No Medications and Allergies Active Medications: Active Medications Acetaminophen (Tylenol) 650 mg PO Q24H ASHOK Stop: 06/16/18 12:29 Last Admin: 06/11/18 13:10 Dose: 650 mg Diphenhydramine HCl (Benadryl) 25 mg PO Q24H ASHOK Stop: 06/16/18 12:29 Last Admin: 06/11/18 13:10 Dose: 25 mg Immune Globulin 20 gm/ Syringe (/Bag) 200 mls @ 25 mls/hr IV.SIG TITRATE ASHOK; Protocol Stop: 06/16/18 13:19 Sodium Chloride (Ns Inj) 500 mls @ 500 mls/hr IV.SIG Q24H ASHOK Stop: 06/16/18 12:59 Last Admin: 06/11/18 13:11 Dose: 500 mls/hr Allergies Allergy/AdvReac Type Severity Reaction Status Date / Time penicillin G Allergy Severe Anaphylaxis Verified 04/18/18 02:21 promethazine AdvReac Severe NAUSEOUS Verified 04/18/18 02:21 Home Medications Medication Instructions Recorded Confirmed Type RX: Lactobacillus acidoph-L.bulgar 3 tab PO DAILY 04/17/18 04/18/18 History [Floranex] RX: butalbital-acetaminophen See Label Instructions .ROUTE 04/17/18 04/18/18 History .COMPLEX RX: clonazepam [Klonopin] 0.5 mg PO TID 04/18/18 04/18/18 History RX: hydrocodone-acetaminophen 1 tab PO Q4H PRN 04/18/18 04/18/18 History Exam Vital signs: Vital Signs 06/11/18 12:04 Temperature 99.1 F Pulse Rate 92 H Respiratory Rate 15 Blood Pressure 120/73 Pulse Oximetry 95 Intake & Output 06/10/18 06/11/18 06/11/18 18:59 06:59 18:59 Weight 54.431 kg Narrative: GENERAL: Well-nourished, well-developed patient. SKIN: Warm and dry. HEAD: Normocephalic. Airway patent, tolerating secretions, CN 12 in tact EYES: No scleral icterus. No injection or drainage. Lid lag noted bilaterally, right worse than left. NECK: Supple, trachea midline. No JVD or lymphadenopathy. CARDIOVASCULAR: Regular rate and rhythm without murmurs, gallops, or rubs. RESPIRATORY: Breath sounds equal bilaterally. No accessory muscle use. GASTROINTESTINAL: Abdomen soft, non-tender, nondistended. EXTREMITIES: no lower extremity edema NEUROLOGICAL: Awake, alert, and oriented x 3. Diffuse weakness of upper and lower extremities, symmetric smile, Results - Labs CBC & Chem 7: 06/11/18 12:20 06/11/18 12:20 Labs: Laboratory Results - last 24 hr 06/11/18 06/11/18 06/11/18 12:20 12:20 12:21 WBC 10.6 RBC 4.34 Hgb 13.2 Hct 39.8 MCV 91.7 MCH 30.4 MCHC 33.2 RDW 14.5 Plt Count 372 MPV 7.9 Neut % (Auto) 68.6 Lymph % (Auto) 21.7 [place] % (Auto) 7.5 Eos % (Auto) 1.6 Baso % (Auto) 0.6 Neut # (Auto) 7.3 Lymph # (Auto) 2.3 [place] # (Auto) 0.8 Eos # (Auto) 0.2 Baso # (Auto) 0.1 WBC Differential . Differential Comment Auto diff final Sodium 140 Potassium 3.3 L Chloride 104 Carbon Dioxide 30.9 Anion Gap 5 BUN 3 L Creatinine 0.57 Estimated GFR Greater than 89 POC Glucose 92 Random Glucose 79 Calcium 8.4 L Magnesium 1.9 Total Bilirubin 0.2 AST 15 ALT 13 Alkaline Phosphatase 44 L Troponin I Less than 0.02 L Total Protein 7.5 Albumin 3.4 TSH 0.939 Urine Color Urine Clarity Urine pH Ur Specific [place] Urine Protein Urine Glucose (UA) Urine Ketones Urine Occult Blood Urine Nitrate Urine Bilirubin Urine Urobilinogen Ur Leukocyte Esterase Urine RBC Urine WBC Ur Squamous Epith Cells Urine Bacteria Micro UA Comment Ur Microscopic Review Urine Culture Comments 06/11/18 13:14 WBC RBC Hgb Hct MCV MCH MCHC RDW Plt Count MPV Neut % (Auto) Lymph % (Auto) [place] % (Auto) Eos % (Auto) Baso % (Auto) Neut # (Auto) Lymph # (Auto) [place] # (Auto) Eos # (Auto) Baso # (Auto) WBC Differential Differential Comment Sodium Potassium Chloride Carbon Dioxide Anion Gap BUN Creatinine Estimated GFR POC Glucose Random Glucose Calcium Magnesium Total Bilirubin AST ALT Alkaline Phosphatase Troponin I Total Protein Albumin TSH Urine Color Yellow Urine Clarity Hazy H Urine pH 6.0 Ur Specific [place] 1.004 Urine Protein Negative Urine Glucose (UA) Negative Urine Ketones Negative Urine Occult Blood Moderate H Urine Nitrate Negative Urine Bilirubin Negative Urine Urobilinogen Less than 2 Ur Leukocyte Esterase Negative Urine RBC 5 H Urine WBC 1 Ur Squamous Epith Cells 6 Urine Bacteria Moderate H Micro UA Comment Culture indicated Ur Microscopic Review Not Reportable Urine Culture Comments Culture indicated - Imaging Impressions Chest X-Ray 06/11/18 11:59 CONCLUSION: Negative examination. Caprini VTE Risk Assessment Caprini VTE Risk Assessment: No/Low Risk (score <= 1) Caprini Risk Assessment Model: Point Value = 1 Point Value = 2 Point Value = 3 Point Value = 5 Age 41-60 Minor surgery BMI > 25 kg/m2 Swollen legs Varicose veins or History of unexplained or recurrent spontaneous Oral contraceptives or hormone replacement Sepsis (< 1 month) Serious lung disease, including pneumonia (< 1 month) Abnormal pulmonary function Acute myocardial infarction Congestive heart failure (< 1 month) History of inflammatory bowel disease Medical patient at bed rest Age 61-74 Arthroscopic surgery Major open surgery (> 45 min) Laparoscopic surgery (> 45 min) Malignancy Confined to bed (> 72 hours) Immobilizing plaster cast Central venous access Age >= 75 History of VTE Family history of VTE Factor V Leiden Prothrombin [id number] Lupus anticoagulant Anticardiolipin antibodies Elevated serum homocysteine Heparin-induced thrombocytopenia Other congenital or acquired thrombophilia Stroke (< 1 month) Elective arthroplasty Hip, pelvis, or leg fracture Acute spinal cord injury (< 1 month) Prophylaxis Regimen: Total Risk Factor Score Risk Level Prophylaxis Regimen 0-1 Low Early ambulation 2 Moderate Order ONE of the following: *Sequential Compression Device (SCD) *Heparin 5000 units SQ BID 3-4 Higher Order ONE of the following medications: *Heparin 5000 units SQ TID *Enoxaparin/Lovenox 40 mg SQ daily (WT < 150 kg, CrCl > 30 mL/min) *Enoxaparin/Lovenox 30 mg SQ daily (WT < 150 kg, CrCl > 10-29 mL/min) *Enoxaparin/Lovenox 30 mg SQ BID (WT < 150 kg, CrCl > 30 mL/min) AND/OR *Sequential Compression Device (SCD) 5 or more Highest Order ONE of the following medications: *Heparin 5000 units SQ TID (Preferred with Epidurals) *Enoxaparin/Lovenox 40 mg SQ daily (WT < 150 kg, CrCl > 30 mL/min) *Enoxaparin/Lovenox 30 mg SQ daily (WT < 150 kg, CrCl > 10-29 mL/min) *Enoxaparin/Lovenox 30 mg SQ BID (WT < 150 kg, CrCl > 30 mL/min) AND *Sequential Compression Device (SCD) Assessment and Plan - Assessment (1) Chronic low back pain Code(s): M54.5 - Low back pain; G89.29 - Other chronic pain Status: Chronic (2) Myasthenia gravis Code(s): G70.00 - Myasthenia gravis without (acute) exacerbation Status: Acute - Plan In summary this is a 43-year-old female patient with medical history significant for myasthenia gravis who presented to [facility] ED by [facility] for lower extremity weakness Myasthenia gravis exacerbation - ER physician did discuss the case with Dr. De La Fuente who recommended 0.4 g/kg IV over 8 hours of IVIG daily 5 days Resume home pyrostigmine (patient brought with her) (discussed with pharmacy) - CXR negative, blood cultures obtained, EKG obtained Chronic back pain - Hold narcotics at this time given significant weakness and concern for respiratory distress--> weakness continues to worsen while in ER, sx have progressed to upper extremities and eyelid -Control the pain is medications with non-opioids: Toradol, heating pad - May consider small dose of opioid once her first infusion is complete Depression - hold Remeron until after infusion due to concern for respiratory depression Hypokalemia K 3.3, will replace UTI - Urine suggestive of UTI - Urine culture pending - Bactrim PO BID x 3 days DVT prophy bilat SCDs Patient to be monitored closely in ICU or step down to monitory respiratory status--> vitals q15min when infusion starts then hourly Code Status: Full Discussed Condition With: Dr. Lui ER physician Patient and her mother
[2018-06-11] MEDS ORDERED: Acetaminophen 325 MG Tablet PO PRN (14:47)
[2018-06-11] MEDS ORDERED: Sulfamethoxazole/Trimethoprim 400/80 MG Tablet PO SCH (15:30)
--- NOTE | 2018-06-11 16:28 | CT ---
EXAM DATE: 06/11/2018 4:17 PM EDT AGE/SEX: 43 years / Female INDICATIONS: Weakness. Paralysis in lower extremities. History of myasthenia gravis. CLINICAL DATA: This is the patient's initial encounter. Patient reports that signs and symptoms have been present for 2 days and indicates a pain score of 5/10. MEDICAL/SURGICAL HISTORY: None. Tubal ligation. RADIATION DOSE: 20.82 CTDI (mGy) COMPARISON: No prior exams available for comparison. TECHNIQUE: Contiguous axial images were acquired with a multirow detector CT scanner without contras t. Multiplanar reconstructions in the sagittal and coronal plane were also performed. Using automate d exposure control and adjustment of the mA and/or kV according to patient size, radiation dose was k ept as low as reasonably achievable to obtain optimal diagnostic quality images. DICOM format image data is available electronically for review and comparison. FINDINGS: No significant compression deformities, spondylolysis, or spondylolesthesis is seen. There is more al most formation involving superior endplate of L1. L1-L2: No appreciable compromise to the thecal sac, or the exiting nerve roots is seen. The neural foramina and lateral recesses are patent bilaterally. L2-L3: No appreciable compromise to the thecal sac, or the exiting nerve roots is seen. The neural foramina and lateral recesses are patent bilaterally. L3-L4: No appreciable compromise to the thecal sac, or the exiting nerve roots is seen. The neural foramina and lateral recesses are patent bilaterally. L4-L5: Asymmetrical bulging disc is present towards the left with partial extension into the left ne ural foramen slightly abutting the exiting nerve root. Slight bulging disc and hypertrophic changes are seen with indentation on the thecal sac and no significant compromise to the thecal sac or the ex iting nerve roots. L5-S1: Significant degenerative changes are present in the disc space and facets. Slight bulging di sc and hypertrophic changes are seen with indentation on the thecal sac and no significant compromise to the thecal sac or the exiting nerve roots. CONCLUSION: Slight abutting of the exiting left L4 nerve root due to asymmetrical bulging disc L4-5 without any significant thecal sac stenosis. Electronically signed by: Fabby Reece MD 06/11/2018 4:27 PM EDT
[2018-06-11] MEDS: Sulfamethoxazole/Trimethoprim 400/80 MG Tablet PO SCH (18:01)
[2018-06-11] MEDS: IVIG IV.SIG SCH (18:02)
[2018-06-11] MEDS: Pyridostigmine Bromide 60 MG Tablet PO SCH (19:56)
[2018-06-11] MEDS ORDERED: Diphenoxylate/Atropine 2.5/0.025 MG Tablet PO ONE (22:00)
[2018-06-12] MEDS: Pyridostigmine Bromide 60 MG Tablet PO SCH ×5 (00:29→23:26)
[2018-06-12] MEDS: Sulfamethoxazole/Trimethoprim 400/80 MG Tablet PO SCH ×3 (00:29→21:33)
[2018-06-12 05:57] LABS: Baso % (Auto) 0.4 % (0.0-2.0); Eos # (Auto) 0.2 th/mm3 (0.0-0.4); Eos % (Auto) 2.1 % (0.0-4.0); Hematocrit 36.8 % (35.0-46.0); Hemoglobin 12.4 gm/dL (11.6-15.3); Lymph # (Auto) 1.1 th/mm3 (1.0-4.8); Lymph % (Auto) 13.2 % (9.0-44.0); Mean Corpuscular HGB Conc 33.8 % (32.0-36.0); Mean Corpuscular Hemoglobin 30.9 pg (27.0-34.0); Mean Corpuscular Volume 91.5 fL (80.0-100.0); Mean Platelet Volume 8.3 fL (7.0-11.0); Mono # (Auto) 0.6 th/mm3 (0.0-0.9); Mono % (Auto) 7.8 % (0.0-8.0); Neut # (Auto) 6.2 th/mm3 (1.8-7.7); Neut % (Auto) 76.5 % (16.0-70.0); Platelet Count 309 th/mm3 (150-450); Red Blood Count 4.03 mil/mm3 (4.00-5.30); White Blood Count 8.1 th/mm3 (4.0-11.0)
[2018-06-12 06:28] LABS: Anion Gap 6 meq/L (5-15); Blood Urea Nitrogen 5 mg/dL (7-18); Carbon Dioxide 29.6 meq/L (21.0-32.0); Chloride 106 meq/L (98-107); Glomerular Filtration Rate Greater Than 89 mL/min (>89); Glucose,Random 87 mg/dL (74-106); Potassium 3.6 meq/L (3.5-5.1); Sodium 142 meq/L (136-145)
[2018-06-12] MEDS ORDERED: PYRIDOSTIGMINE BROMIDE 180 MG PO SCH (09:00)
--- NOTE | 2018-06-12 11:09 | P.PN ---
Subjective Interval history: Follow-up myasthenia gravis exacerbation June 12, 2018-patient seen and examined only complains of back pain denies any shortness of breath. Physical Exam Vital signs: Vital Signs 06/11/18 12:04 06/11/18 17:28 06/11/18 18:00 Temperature 99.1 F Pulse Rate 92 H 88 83 Respiratory Rate 15 20 22 Blood Pressure 120/73 130/73 136/69 Pulse Oximetry 95 98 97 06/11/18 18:02 06/11/18 20:00 06/11/18 20:37 Temperature 97.7 F Pulse Rate 94 H 82 90 Respiratory Rate 21 20 Blood Pressure 122/75 124/77 Pulse Oximetry 97 06/11/18 21:00 06/11/18 22:00 06/12/18 00:00 Temperature 97.7 F 97.4 F L 97.8 F Pulse Rate 87 85 90 Respiratory Rate 18 18 16 Blood Pressure 112/79 112/75 114/74 Pulse Oximetry 97 97 96 06/12/18 00:23 06/12/18 04:00 06/12/18 07:00 Temperature 97.5 F L Pulse Rate 82 70 78 Respiratory Rate 16 Blood Pressure 126/69 Pulse Oximetry 98 06/12/18 07:49 Temperature 97.7 F Pulse Rate 77 Respiratory Rate 18 Blood Pressure 106/50 L Pulse Oximetry 98 Intake & Output 06/11/18 06/12/18 06/12/18 18:59 06:59 18:59 Intake Total 440 / 440 Output Total 600 / 600 Balance -160 / -160 Weight 54.431 kg 64.7 kg Intake: IV 200 / 200 Privigen Inj 20 GM In Bag/ 200 / 200 Syringe 1 EACH @ 25 mls/hr IV. SIG TITRATE ASHOK Rx#:[id number] Oral 240 / 240 Output: Urine 600 / 600 Other: Date of Last Bowel Movement 06/12/18 06/12/18 # Bowel Movements 7 Narrative: GENERAL: NAD SKIN: Warm and dry. HEAD: Normocephalic. EYES: No scleral icterus. No injection or drainage. NECK: Supple, trachea midline. No JVD or lymphadenopathy. CARDIOVASCULAR: Regular rate and rhythm without murmurs, gallops, or rubs. RESPIRATORY: Breath sounds equal bilaterally. No accessory muscle use. GASTROINTESTINAL: Abdomen soft, non-tender, nondistended. MUSCULOSKELETAL: No cyanosis, or edema. BACK: Nontender without obvious deformity. No CVA tenderness. Results - Labs CBC & Chem 7: 06/12/18 04:35 06/12/18 04:35 Laboratory Results - last 24 hr 06/11/18 06/11/18 06/11/18 12:20 12:20 12:21 WBC 10.6 RBC 4.34 Hgb 13.2 Hct 39.8 MCV 91.7 MCH 30.4 MCHC 33.2 RDW 14.5 Plt Count 372 MPV 7.9 Neut % (Auto) 68.6 Lymph % (Auto) 21.7 [place] % (Auto) 7.5 Eos % (Auto) 1.6 Baso % (Auto) 0.6 Neut # (Auto) 7.3 Lymph # (Auto) 2.3 [place] # (Auto) 0.8 Eos # (Auto) 0.2 Baso # (Auto) 0.1 WBC Differential . Differential Comment Auto diff final Sodium 140 Potassium 3.3 L Chloride 104 Carbon Dioxide 30.9 Anion Gap 5 BUN 3 L Creatinine 0.57 Estimated GFR Greater than 89 POC Glucose 92 Random Glucose 79 Calcium 8.4 L Magnesium 1.9 Total Bilirubin 0.2 AST 15 ALT 13 Alkaline Phosphatase 44 L Troponin I Less than 0.02 L Total Protein 7.5 Albumin 3.4 TSH 0.939 Urine Color Urine Clarity Urine pH Ur Specific [place] Urine Protein Urine Glucose (UA) Urine Ketones Urine Occult Blood Urine Nitrate Urine Bilirubin Urine Urobilinogen Ur Leukocyte Esterase Urine RBC Urine WBC Ur Squamous Epith Cells Urine Bacteria Micro UA Comment Ur Microscopic Review Urine Culture Comments St C. diff Tox Epid 027 C. difficile Tox (PCR) 06/11/18 06/12/18 06/12/18 13:14 00:00 04:35 WBC 8.1 RBC 4.03 Hgb 12.4 Hct 36.8 MCV 91.5 MCH 30.9 MCHC 33.8 RDW 14.0 Plt Count 309 MPV 8.3 Neut % (Auto) 76.5 H Lymph % (Auto) 13.2 [place] % (Auto) 7.8 Eos % (Auto) 2.1 Baso % (Auto) 0.4 Neut # (Auto) 6.2 Lymph # (Auto) 1.1 [place] # (Auto) 0.6 Eos # (Auto) 0.2 Baso # (Auto) 0.0 WBC Differential . Differential Comment Auto diff final Sodium Potassium Chloride Carbon Dioxide Anion Gap BUN Creatinine Estimated GFR POC Glucose Random Glucose Calcium Magnesium Total Bilirubin AST ALT Alkaline Phosphatase Troponin I Total Protein Albumin TSH Urine Color Yellow Urine Clarity Hazy H Urine pH 6.0 Ur Specific [place] 1.004 Urine Protein Negative Urine Glucose (UA) Negative Urine Ketones Negative Urine Occult Blood Moderate H Urine Nitrate Negative Urine Bilirubin Negative Urine Urobilinogen Less than 2 Ur Leukocyte Esterase Negative Urine RBC 5 H Urine WBC 1 Ur Squamous Epith Cells 6 Urine Bacteria Moderate H Micro UA Comment Culture indicated Ur Microscopic Review Not Reportable Urine Culture Comments Culture indicated St C. diff Tox Epid 027 Negative C. difficile Tox (PCR) Positive H 06/12/18 04:35 WBC RBC Hgb Hct MCV MCH MCHC RDW Plt Count MPV Neut % (Auto) Lymph % (Auto) [place] % (Auto) Eos % (Auto) Baso % (Auto) Neut # (Auto) Lymph # (Auto) [place] # (Auto) Eos # (Auto) Baso # (Auto) WBC Differential Differential Comment Sodium 142 Potassium 3.6 Chloride 106 Carbon Dioxide 29.6 Anion Gap 6 BUN 5 L Creatinine 0.56 Estimated GFR Greater than 89 POC Glucose Random Glucose 87 Calcium 8.0 L Magnesium Total Bilirubin AST ALT Alkaline Phosphatase Troponin I Total Protein Albumin TSH Urine Color Urine Clarity Urine pH Ur Specific [place] Urine Protein Urine Glucose (UA) Urine Ketones Urine Occult Blood Urine Nitrate Urine Bilirubin Urine Urobilinogen Ur Leukocyte Esterase Urine RBC Urine WBC Ur Squamous Epith Cells Urine Bacteria Micro UA Comment Ur Microscopic Review Urine Culture Comments St C. diff Tox Epid 027 C. difficile Tox (PCR) Microbiology 06/11/18 12:20 Blood - Peripheral Aerobic Blood Culture - Preliminary No growth in 1 day 06/11/18 12:20 Blood - Peripheral Anaerobic Blood Culture - Preliminary No growth in 1 day 06/11/18 12:15 Blood - Peripheral Aerobic Blood Culture - Preliminary No growth in 1 day 06/11/18 12:15 Blood - Peripheral Anaerobic Blood Culture - Preliminary No growth in 1 day 06/11/18 13:14 Clean Catch Urine Urine Culture - Preliminary gram negative rods - Imaging Impressions Chest X-Ray 06/11/18 11:59 CONCLUSION: Negative examination. Lumbar Spine CT 06/11/18 12:13 CONCLUSION: Slight abutting of the exiting left L4 nerve root due to asymmetrical bulging disc L4-5 without any significant thecal sac stenosis. Assessment and Plan - Assessment (1) Chronic low back pain Code(s): M54.5 - Low back pain; G89.29 - Other chronic pain Status: Chronic (2) Myasthenia gravis Code(s): G70.00 - Myasthenia gravis without (acute) exacerbation Status: Acute - Plan 43-year-old female with Myasthenia gravis exacerbation Treatment with IVIG daily 5 days 1#5 per neurology Continue with Pyrostigmine Chronic back pain Continue with Toradol, heating pad Resume narcotics accordingly 1 vitals allowed as patient currently with hypotension Depression Resume Remeron Hypokalemia Monitor electrolytes UTI Continue Bactrim PO BID x 3 days DVT prophy bilat SCDs
[2018-06-12] MEDS: clonazePAM 0.5 MG Tablet PO SCH ×2 (13:19→17:57)
--- NOTE | 2018-06-12 16:31 | ECG ---
Date Performed: 06/11/2018 Time Performed: 13:14:53 PTAGE: 43 years EKG: Sinus rhythm LEFT ATRIAL ENLARGEMENT ABNORMAL ECG Since PREVIOUS TRACING , no significant change noted PREVIOUS TRACIN04/17/2018 21.22 DOCTOR: Luis Armando Browning Interpretating Date/Time 06/12/2018 16:30:21
[2018-06-12] MEDS: Acetaminophen 325 MG Tablet PO SCH (17:05)
[2018-06-12] MEDS: Sodium Chlor 0.9% Inj 500 ML IV.SIG SCH (17:06)
[2018-06-12] MEDS: IVIG IV.SIG SCH (18:30)
[2018-06-12] MEDS: Mirtazapine 15 MG Tablet PO SCH (21:28)
[2018-06-13] MEDS: Pyridostigmine Bromide 60 MG Tablet PO SCH ×3 (05:28→17:46)
[2018-06-13] MEDS: PYRIDOSTIGMINE BROMIDE 180 MG PO SCH (06:33)
[2018-06-13] MEDS: Sulfamethoxazole/Trimethoprim 400/80 MG Tablet PO SCH ×2 (08:21→22:07)
[2018-06-13] MEDS: clonazePAM 0.5 MG Tablet PO SCH ×3 (08:21→17:45)
--- NOTE | 2018-06-13 12:19 | P.PN ---
Subjective Interval history: Follow-up myasthenia gravis exacerbation June 12, 2018-patient seen and examined only complains of back pain denies any shortness of breath. June 13, 2018-patient seen and examined, reports some improvement of diarrheal episode as well as back pain. Afebrile Physical Exam Vital signs: Vital Signs 06/12/18 15:00 06/12/18 15:30 06/12/18 18:30 Temperature 97.3 F L Pulse Rate 78 76 92 H Respiratory Rate 18 18 Blood Pressure 102/68 103/52 L Pulse Oximetry 99 06/12/18 18:58 06/12/18 20:00 06/12/18 20:35 Temperature 97.5 F L Pulse Rate 84 88 81 Respiratory Rate 18 18 Blood Pressure 116/75 115/67 Pulse Oximetry 97 98 06/12/18 21:00 06/13/18 00:00 06/13/18 00:13 Temperature 97.4 F L 97.3 F L Pulse Rate 90 75 81 Respiratory Rate 18 16 Blood Pressure 116/72 126/69 Pulse Oximetry 96 96 06/13/18 04:00 06/13/18 07:38 06/13/18 08:22 Temperature 97.7 F 98.0 F Pulse Rate 93 H 89 77 Respiratory Rate 18 20 Blood Pressure 109/73 108/79 Pulse Oximetry 97 98 06/13/18 11:13 Temperature Pulse Rate 96 H Respiratory Rate Blood Pressure Pulse Oximetry Intake & Output 06/12/18 06/13/18 06/13/18 18:59 06:59 18:59 Intake Total 500 / 500 2680 / 2680 Output Total 2100 / 2100 Balance 500 / 500 580 / 580 Weight 64.7 kg 63.8 kg Intake: IV 500 / 500 200 / 200 Privigen Inj 20 GM In Bag/ 200 / 200 Syringe 1 EACH @ 25 mls/hr IV. SIG TITRATE ASHOK Rx#:[id number] NS Inj 500 ML @ 500 mls/hr IV. 500 / 500 SIG Q24H ASHOK Rx#:[id number] Oral 2480 / 2480 Output: Urine 1300 / 1300 Urine/Stool Mix 800 / 800 Other: Date of Last Bowel Movement 06/12/18 06/12/18 06/13/18 # Bowel Movements 5 Narrative: GENERAL: NAD SKIN: Warm and dry. HEAD: Normocephalic. EYES: No scleral icterus. No injection or drainage. NECK: Supple, trachea midline. No JVD or lymphadenopathy. CARDIOVASCULAR: Regular rate and rhythm without murmurs, gallops, or rubs. RESPIRATORY: Breath sounds equal bilaterally. No accessory muscle use. GASTROINTESTINAL: Abdomen soft, non-tender, nondistended. MUSCULOSKELETAL: No cyanosis, or edema. BACK: Nontender without obvious deformity. No CVA tenderness. Results - Labs CBC & Chem 7: 06/12/18 04:35 06/12/18 04:35 Microbiology 06/11/18 12:20 Blood - Peripheral Aerobic Blood Culture - Preliminary No growth in 2 days 06/11/18 12:20 Blood - Peripheral Anaerobic Blood Culture - Preliminary No growth in 2 days 06/11/18 12:15 Blood - Peripheral Aerobic Blood Culture - Preliminary No growth in 2 days 06/11/18 12:15 Blood - Peripheral Anaerobic Blood Culture - Preliminary No growth in 2 days 06/11/18 13:14 Clean Catch Urine Urine Culture - Preliminary gram negative rods 06/12/18 00:00 Stool Clostridium difficile GDH Antigen - Final C. difficile Antigen Positive 06/12/18 00:00 Stool Clostridium difficile Toxin Assay - Final C.diff Toxin A &/or B Positive Assessment and Plan - Assessment (1) Chronic low back pain Code(s): M54.5 - Low back pain; G89.29 - Other chronic pain Status: Chronic (2) Myasthenia gravis Code(s): G70.00 - Myasthenia gravis without (acute) exacerbation Status: Acute - Plan 43-year-old female with Myasthenia gravis exacerbation Treatment with IVIG daily 5 days 2#5 per neurology. Plan for third treatment today Continue with Pyrostigmine Chronic back pain Continue with Toradol, heating pad Continue narcotics C. difficile diarrhea Currently on vancomycin 500 mg 4 times daily Depression Continue Remeron Hypokalemia Monitor electrolytes UTI Continue Bactrim PO BID x 3 days DVT prophy bilat SCDs
[2018-06-13] MEDS: Sodium Chlor 0.9% Inj 500 ML IV.SIG SCH (16:34)
[2018-06-13] MEDS: Acetaminophen 325 MG Tablet PO SCH (16:34)
[2018-06-13] MEDS: IVIG IV.SIG SCH (17:46)
[2018-06-13] MEDS: Mirtazapine 15 MG Tablet PO SCH (22:07)
[2018-06-14] MEDS: Pyridostigmine Bromide 60 MG Tablet PO SCH ×4 (00:37→17:33)
[2018-06-14] MEDS: PYRIDOSTIGMINE BROMIDE 180 MG PO SCH (06:32)
[2018-06-14] MEDS: clonazePAM 0.5 MG Tablet PO SCH ×3 (09:30→17:33)
[2018-06-14] MEDS: Sulfamethoxazole/Trimethoprim 400/80 MG Tablet PO SCH (09:30)
--- NOTE | 2018-06-14 11:55 | P.PN ---
Subjective Interval history: Follow-up myasthenia gravis exacerbation June 12, 2018-patient seen and examined only complains of back pain denies any shortness of breath. June 13, 2018-patient seen and examined, reports some improvement of diarrheal episode as well as back pain. Afebrile June 14, 2018-patient seen and examined, complains of headache. Diarrhea improved. States she is still with inadequate pain control. Physical Exam Vital signs: Vital Signs 06/13/18 12:00 06/13/18 15:04 06/13/18 16:42 Temperature 98.6 F 98.2 F Pulse Rate 85 85 84 Respiratory Rate 20 18 Blood Pressure 109/72 118/75 Pulse Oximetry 99 98 06/13/18 17:46 06/13/18 17:52 06/13/18 19:26 Temperature Pulse Rate 86 90 Respiratory Rate 18 20 18 Blood Pressure 118/75 119/72 Pulse Oximetry 98 06/13/18 19:31 06/13/18 22:26 06/14/18 00:00 Temperature 97.9 F 98 F Pulse Rate 62 79 Respiratory Rate 20 16 20 Blood Pressure 104/63 112/66 Pulse Oximetry 96 98 06/14/18 01:05 06/14/18 04:28 06/14/18 04:56 Temperature 98 F Pulse Rate 98 H Respiratory Rate 18 18 16 Blood Pressure 121/90 Pulse Oximetry 99 06/14/18 07:00 06/14/18 09:24 Temperature 98 F Pulse Rate 87 79 Respiratory Rate 18 Blood Pressure 128/77 Pulse Oximetry 100 Intake & Output 06/13/18 06/14/18 06/14/18 18:59 06:59 18:59 Intake Total 1750 / 1750 1570 / 1570 Balance 1750 / 1750 1570 / 1570 Weight 63.5 kg Intake: IV 500 / 500 200 / 200 Privigen Inj 20 GM In Bag/ 200 / 200 Syringe 1 EACH @ 25 mls/hr IV. SIG TITRATE ASHOK Rx#:[id number] NS Inj 500 ML @ 500 mls/hr IV. 500 / 500 SIG Q24H ASHOK Rx#:[id number] Oral 1250 / 1250 1370 / 1370 Other: # Voids 7 1 Date of Last Bowel Movement 06/13/18 06/13/18 06/14/18 # Bowel Movements 3 Narrative: GENERAL: NAD SKIN: Warm and dry. HEAD: Normocephalic. EYES: No scleral icterus. No injection or drainage. NECK: Supple, trachea midline. No JVD or lymphadenopathy. CARDIOVASCULAR: Regular rate and rhythm without murmurs, gallops, or rubs. RESPIRATORY: Breath sounds equal bilaterally. No accessory muscle use. GASTROINTESTINAL: Abdomen soft, non-tender, nondistended. MUSCULOSKELETAL: No cyanosis, or edema. BACK: Nontender without obvious deformity. No CVA tenderness. Results - Labs CBC & Chem 7: 06/12/18 04:35 06/12/18 04:35 Microbiology 06/11/18 12:20 Blood - Peripheral Aerobic Blood Culture - Preliminary No growth in 3 days 06/11/18 12:20 Blood - Peripheral Anaerobic Blood Culture - Preliminary No growth in 3 days 06/11/18 12:15 Blood - Peripheral Aerobic Blood Culture - Preliminary No growth in 3 days 06/11/18 12:15 Blood - Peripheral Anaerobic Blood Culture - Preliminary No growth in 3 days 06/11/18 13:14 Clean Catch Urine Urine Culture - Final Escherichia coli Assessment and Plan - Assessment (1) Chronic low back pain Code(s): M54.5 - Low back pain; G89.29 - Other chronic pain Status: Chronic (2) Myasthenia gravis Code(s): G70.00 - Myasthenia gravis without (acute) exacerbation Status: Acute - Plan 43-year-old female with Myasthenia gravis exacerbation Treatment with IVIG daily 5 days 3#5 per neurology. Plan for follow-up treatment today Continue with Pyrostigmine Chronic back pain Continue with Toradol, heating pad Continue narcotics C. difficile diarrhea Currently on vancomycin 500 mg 4 times daily Depression Continue Remeron Hypokalemia Monitor electrolytes UTI Continue Bactrim PO BID x 3 days; d/c DVT prophy bilat SCDs
[2018-06-14] MEDS: oxyCODONE/Acetaminophen 10/325 Tablet PO PRN ×3 (13:45→22:05)
--- NOTE | 2018-06-14 14:40 | P.DCO ---
- Home Health Nursing Order: Signs/symptoms of disease process, Nursing assessment with vital signs - Certification I have seen patient Brionna Rodríguez on 06/14/18. My clinical findings support the need for the requested home health care services because: Deconditioned with increased weakness I certify that my clinical findings support that this patient is homebound because: Poor cardiac reserve
[2018-06-14] MEDS: Sodium Chlor 0.9% Inj 500 ML IV.SIG SCH (16:37)
[2018-06-14] MEDS: Acetaminophen 325 MG Tablet PO SCH (16:38)
[2018-06-14] MEDS: IVIG IV.SIG SCH (17:32)
[2018-06-14] MEDS: Mirtazapine 15 MG Tablet PO SCH (20:08)
[2018-06-15] MEDS: Pyridostigmine Bromide 60 MG Tablet PO SCH ×4 (00:43→17:57)
[2018-06-15] MEDS: oxyCODONE/Acetaminophen 10/325 Tablet PO PRN ×4 (02:12→18:43)
[2018-06-15] MEDS: PYRIDOSTIGMINE BROMIDE 180 MG PO SCH (05:50)
[2018-06-15 06:36] LABS: Baso % (Auto) 0.8 % (0.0-2.0); Eos # (Auto) 0.2 th/mm3 (0.0-0.4); Hemoglobin 11.9 gm/dL (11.6-15.3); Lymph # (Auto) 1.6 th/mm3 (1.0-4.8); Lymph % (Auto) 35.8 % (9.0-44.0); Mean Corpuscular Hemoglobin 30.9 pg (27.0-34.0); Mean Corpuscular Volume 90.9 fL (80.0-100.0); Mean Platelet Volume 8.1 fL (7.0-11.0); Mono # (Auto) 0.6 th/mm3 (0.0-0.9); Neut # (Auto) 2.1 th/mm3 (1.8-7.7); Neut % (Auto) 46.4 % (16.0-70.0); Platelet Count 342 th/mm3 (150-450); Red Blood Count 3.85 mil/mm3 (4.00-5.30); Red Cell Distribution Width 14.2 % (11.6-17.2); White Blood Count 4.6 th/mm3 (4.0-11.0)
[2018-06-15 07:04] LABS: Alanine Aminotransferase 19 U/L (10-53); Albumin 2.8 g/dL (3.4-5.0); Anion Gap 4 meq/L (5-15); Aspartate Aminotransferase 22 U/L (15-37); Blood Urea Nitrogen 6 mg/dL (7-18); Calcium 9.1 mg/dL (8.5-10.1); Carbon Dioxide 29.4 meq/L (21.0-32.0); Chloride 105 meq/L (98-107); Glomerular Filtration Rate Greater Than 89 mL/min (>89); Glucose,Random 78 mg/dL (74-106); Potassium 3.8 meq/L (3.5-5.1); Sodium 138 meq/L (136-145)
[2018-06-15 07:10] LABS: Alkaline Phosphatase 45 U/L (45-117); Total Protein 8.3 g/dL (6.4-8.2)
[2018-06-15] MEDS: clonazePAM 0.5 MG Tablet PO SCH ×3 (10:11→17:57)
[2018-06-15] MEDS: Acetaminophen 325 MG Tablet PO SCH (12:58)
[2018-06-15] MEDS: Sodium Chlor 0.9% Inj 500 ML IV.SIG SCH (12:58)
--- NOTE | 2018-06-15 13:21 | P.PN ---
Subjective Interval history: complains of headache- usual migraine no fever, no neck pain BM= semi formed Physical Exam Vital signs: Vital Signs 06/14/18 13:47 06/14/18 15:56 06/14/18 16:42 Temperature 98.1 F 98.2 F Pulse Rate 95 H 88 96 H Respiratory Rate 18 20 Blood Pressure 124/81 112/82 Pulse Oximetry 97 99 06/14/18 17:30 06/14/18 17:48 06/14/18 20:00 Temperature 98.4 F 98.2 F Pulse Rate 82 82 88 Respiratory Rate 19 20 Blood Pressure 110/74 131/76 Pulse Oximetry 98 96 06/14/18 22:35 06/15/18 00:00 06/15/18 00:39 Temperature Pulse Rate 89 99 H Respiratory Rate 16 18 Blood Pressure 100/64 Pulse Oximetry 99 06/15/18 00:42 06/15/18 02:42 06/15/18 05:43 Temperature 97.7 F 97.8 F Pulse Rate 80 Respiratory Rate 17 18 Blood Pressure 105/81 Pulse Oximetry 99 06/15/18 07:15 06/15/18 08:00 06/15/18 12:00 Temperature 98.1 F 98.1 F Pulse Rate 63 85 132 H Respiratory Rate 16 20 Blood Pressure 116/75 126/58 L Pulse Oximetry 99 98 Intake & Output 06/14/18 06/15/18 06/15/18 18:59 06:59 18:59 Intake Total 2500 / 2500 1160 / 1160 Balance 2500 / 2500 1160 / 1160 Weight 64.2 kg Intake: IV 500 / 500 200 / 200 Privigen Inj 20 GM In Bag/ 200 / 200 Syringe 1 EACH @ 25 mls/hr IV. SIG TITRATE ASHOK Rx#:[id number] NS Inj 500 ML @ 500 mls/hr IV. 500 / 500 SIG Q24H ASHOK Rx#:[id number] Oral 1999 960 / 960 Other: # Voids 1 3 Date of Last Bowel Movement 06/14/18 06/14/18 06/15/18 # Bowel Movements 4 Narrative: anicteric neck supple no nuchal rigidity lungs- no rales regular rhythm abdomen soft, nontender extremities no edema motor 5/5 all extremities Results - Labs CBC & Chem 7: 06/15/18 05:50 06/15/18 05:50 Laboratory Results - last 24 hr 06/15/18 06/15/18 05:50 05:50 WBC 4.6 RBC 3.85 L Hgb 11.9 Hct 35.0 MCV 90.9 MCH 30.9 MCHC 34.0 RDW 14.2 Plt Count 342 MPV 8.1 Neut % (Auto) 46.4 Lymph % (Auto) 35.8 Anderson % (Auto) 13.0 H Eos % (Auto) 4.0 Baso % (Auto) 0.8 Neut # (Auto) 2.1 Lymph # (Auto) 1.6 Anderson # (Auto) 0.6 Eos # (Auto) 0.2 Baso # (Auto) 0.0 WBC Differential . Differential Comment Auto diff final Sodium 138 Potassium 3.8 Chloride 105 Carbon Dioxide 29.4 Anion Gap 4 L BUN 6 L Creatinine 0.62 Estimated GFR Greater than 89 Random Glucose 78 Calcium 9.1 Total Bilirubin 0.1 L AST 22 ALT 19 Alkaline Phosphatase 45 Total Protein 8.3 H D Albumin 2.8 L Microbiology 06/11/18 12:20 Blood - Peripheral Aerobic Blood Culture - Preliminary No growth in 4 days 06/11/18 12:20 Blood - Peripheral Anaerobic Blood Culture - Preliminary No growth in 4 days 06/11/18 12:15 Blood - Peripheral Aerobic Blood Culture - Preliminary No growth in 4 days 06/11/18 12:15 Blood - Peripheral Anaerobic Blood Culture - Preliminary No growth in 4 days Assessment and Plan - Assessment (1) Myasthenia gravis in crisis Code(s): G70.01 - Myasthenia gravis with (acute) exacerbation Status: Acute - Plan 43-year-old female with Myasthenia gravis exacerbation Treatment with IVIG daily 5 days - last dose today Continue with Pyrostigmine Chronic back pain Continue with Toradol, heating pad Continue home meds - d/w her- C. difficile diarrhea Currently on vancomycin 500 mg 4 times daily to complete 10 days course Depression Continue Remeron Hypokalemia- improved Monitor electrolytes UTI Continue Bactrim PO BID x 3 days; d/c DVT prophy bilat SCDs
--- NOTE | 2018-06-15 13:30 | P.DS ---
Date of admission: 06/11/18 14:51 Primary care physician: UNKNOWN Brief History from admission: This is a 43 yo female with a medical history significant for myasthenia gravis and chronic pain, presents with concern of Myasthenia Flare. 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 She usually gets IVIG treatment every month. She is due for her next infusion next week. She states that she has been feeling progressively weak, most notably in her lower extremities. Today she reported that she fell and was unable to get up. [facility] was called. Patient is known to . ER physician contacted Dr. De La Fuente neurologist on -call and the patient was started on IVIG. Patient currently reporting pain in lower back. States weakness is worsening, she feeling weakness of her upper extremities, now also with a hard time keeping her eyes open. Patient has been intubated before as a result of a suicide attempt in December. She currently denies any suicidal or homicidal ideation. Denies difficulty breathing. Tolerating her secretions. Voice she states is her baseline. Patient update on day of discharge: awake and alert neuro exam - unremarkable DS: Diagnosis - Discharge Diagnosis (1) Myasthenia gravis in crisis Status: Acute DS: Medications - Discharge Medications Prescriptions: vancomycin 500 mg PO QID 8 Days each DS: Summary Hospital Course: 43-year-old female with Myasthenia gravis exacerbation Treatment with IVIG daily 5 days - last dose today Continue with Pyrostigmine Chronic back pain Continue with Toradol, heating pad Continue home meds - d/w her- C. difficile diarrhea Currently on vancomycin 500 mg 4 times daily to complete 10 days course Depression Continue Remeron Hypokalemia- improved Monitor electrolytes UTI Bactrim PO BID x 3 days DVT prophy bilat SCDs - Time Spent with Patient Total time spent providing and/or coordinating discharge services: Less than 30 minutes - Quality: VTE Deep Vein Thrombosis/Pulmonary Embolism Present on Admission: No Exam Vital signs: Vital Signs 06/14/18 13:47 06/14/18 15:56 06/14/18 16:42 Temperature 98.1 F 98.2 F Pulse Rate 95 H 88 96 H Respiratory Rate 18 20 Blood Pressure 124/81 112/82 Pulse Oximetry 97 99 06/14/18 17:30 06/14/18 17:48 06/14/18 20:00 Temperature 98.4 F 98.2 F Pulse Rate 82 82 88 Respiratory Rate 19 20 Blood Pressure 110/74 131/76 Pulse Oximetry 98 96 06/14/18 22:35 06/15/18 00:00 06/15/18 00:39 Temperature Pulse Rate 89 99 H Respiratory Rate 16 18 Blood Pressure 100/64 Pulse Oximetry 99 06/15/18 00:42 06/15/18 02:42 06/15/18 05:43 Temperature 97.7 F 97.8 F Pulse Rate 80 Respiratory Rate 17 18 Blood Pressure 105/81 Pulse Oximetry 99 06/15/18 07:15 06/15/18 08:00 06/15/18 12:00 Temperature 98.1 F 98.1 F Pulse Rate 63 85 132 H Respiratory Rate 16 20 Blood Pressure 116/75 126/58 L Pulse Oximetry 99 98 Intake & Output 06/14/18 06/15/18 06/15/18 18:59 06:59 18:59 Intake Total 2500 / 2500 1160 / 1160 Balance 2500 / 2500 1160 / 1160 Weight 64.2 kg Intake: IV 500 / 500 200 / 200 Privigen Inj 20 GM In Bag/ 200 / 200 Syringe 1 EACH @ 25 mls/hr IV. SIG TITRATE ASHOK Rx#:[id number] NS Inj 500 ML @ 500 mls/hr IV. 500 / 500 SIG Q24H ASHOK Rx#:[id number] Oral 1999 960 / 960 Other: # Voids 1 3 Date of Last Bowel Movement 06/14/18 06/14/18 06/15/18 # Bowel Movements 4 Narrative: anicteric neck supple no nuchal rigidity lungs- no rales regular rhythm abdomen soft, nontender extremities no edema motor 5/5 all extremities Results Procedures completed during hospitalization: none Labs on day of discharge: Labs from last 24 hours 06/15/18 06/15/18 05:50 05:50 WBC 4.6 RBC 3.85 L Hgb 11.9 Hct 35.0 MCV 90.9 MCH 30.9 MCHC 34.0 RDW 14.2 Plt Count 342 MPV 8.1 Neut % (Auto) 46.4 Lymph % (Auto) 35.8 [place]ern % (Auto) 13.0 H Eos % (Auto) 4.0 Baso % (Auto) 0.8 Neut # (Auto) 2.1 Lymph # (Auto) 1.6 Kern # (Auto) 0.6 Eos # (Auto) 0.2 Baso # (Auto) 0.0 WBC Differential . Differential Comment Auto diff final Sodium 138 Potassium 3.8 Chloride 105 Carbon Dioxide 29.4 Anion Gap 4 L BUN 6 L Creatinine 0.62 Estimated GFR Greater than 89 Random Glucose 78 Calcium 9.1 Total Bilirubin 0.1 L AST 22 ALT 19 Alkaline Phosphatase 45 Total Protein 8.3 H D Albumin 2.8 L Preliminary micro results at discharge 06/11/18 12:20 Aerobic Blood Culture - Preliminary Blood - Peripheral No growth in 4 days Anaerobic Blood Culture - Preliminary No growth in 4 days 06/11/18 12:15 Aerobic Blood Culture - Preliminary Blood - Peripheral No growth in 4 days Anaerobic Blood Culture - Preliminary No growth in 4 days - Impressions ITS Impressions Chest X-Ray 06/11/18 11:59 CONCLUSION: Negative examination. Lumbar Spine CT 06/11/18 12:13 CONCLUSION: Slight abutting of the exiting left L4 nerve root due to asymmetrical bulging disc L4-5 without any significant thecal sac stenosis. Discharge Plan - Discharge Disposition Patient Disposition: /Home Health Service - Discharge Condition Condition: Stable - Discharge Order Discharge Orders: Discharge Order (Routine); Ordered 06/15/18 Ordered By: Clemencia Martines - Discharge Details Anticipated Discharge Date: 06/15/18 - Physicians Team Primary Care Provider: UNKNOWN, Attending Provider: Clemencia Martines
[2018-06-15 16:40] VITALS: BP 110/63; PULSE 81; RESP 21; TEMP 98; O2SAT 97
== END 2018-06-15 18:50 | disposition home health service (06) ==
LOC: NEPC 11:47 → NEDA 14:51 → HCIN 19:20
PROVIDERS: ADMIT Internal Medicine; ATTEND Internal Medicine

== ENCOUNTER 2018-09-02 10:43 | Inpatient (IN) ==
[2018-09-02] MEDS ORDERED: Sod Chloride 0.9% Inj 1,000 ML IV.SIG ONE (11:48)
--- NOTE | 2018-09-02 12:24 | ED ---
HPI General Chief complaint: Medical Clearance Stated complaint: Medical Time Seen by Provider: 09/02/18 11:36 Source: patient and RN notes reviewed Mode of arrival: ambulatory Limitations: no limitations History of Present Illness HPI narrative: 43-year-old female presents to the emergency department for evaluation of myasthenia gravis exacerbation. Patient states that starting last night, she started the exacerbation. She reports generalized weakness, difficulty walking, difficulty talking. She states she is due for IVIG treatment on Wednesday, but cannot wait that long. Her neurologist is Dr. Vizcarra. She denies any respiratory issues. Patient does report falling last night due to the weakness. She reports swelling over the left face from her fall. She denies any head injury or LOC. She does complain of migraine headache. She states she normally takes Imitrex, but has not been able to swallow due to her myasthenia gravis. Moderate severity. Onset (ago): day(s) (1) Location: head Radiation: non-radiation Severity: moderate Severity scale (1-10): 8 Quality: aching Pain Consistency: constant Relieving factors: none Exacerbating factors: none Associated symptoms: Reports headaches and weakness; Denies confusion, chest pain, cough, diaphoresis, fever/chills, loss of appetite, nausea/vomiting, rash , seizure, shortness of breath and syncope Related Data Home Medications Medication Instructions Recorded Confirmed clonazepam [Klonopin] 0.5 mg PO TID 04/18/18 09/02/18 hydrocodone-acetaminophen 1 tab PO Q6H PRN 09/02/18 09/02/18 paroxetine HCl 120 mg PO TID 09/02/18 09/02/18 prednisone 10 mg PO DAILY 09/02/18 09/02/18 pyridostigmine bromide 120 mg PO TID 09/02/18 09/02/18 Previous Rx's Medication Instructions Recorded gabapentin 300 mg PO QPM #30 cap 04/22/18 mirtazapine 45 mg PO DAILY #30 tab 04/22/18 sumatriptan succinate 50 mg PO Q2-4H PRN #18 tab 04/22/18 Allergies Allergy/AdvReac Type Severity Reaction Status Date / Time penicillin G Allergy Severe Anaphylaxis Verified 09/02/18 12:30 promethazine AdvReac Severe NAUSEOUS Verified 09/02/18 12:30 Review of Systems ROS: all other systems reviewed are negative PMFSH Social History Social History Substance History: No History of Abuse Second Hand Smoke Exposure: No Smoking Status: Former smoker Tobacco Type: Cigarettes Packs Per Day: 2 Cigarettes Per Day: 40.0 Years Smoked: 20 Pack-Years: 40.00 How Often Do You Have a Drink Containing Alcohol: Never Recent Travel in [facility] within the Last 8 Weeks: No Recent Out of Country Travel within the Last 8 Weeks: No Immunization History Tetanus Immunization: Unsure Exam Narrative Exam Narrative: GENERAL: Well-nourished, well-developed female patient, afebrile. Speech is slurred. SKIN: Focused skin assessment warm/dry. HEAD: Normocephalic. Atraumatic. EYES: No scleral icterus. No injection or drainage. NECK: Supple, trachea midline. No JVD or lymphadenopathy. CARDIOVASCULAR: Regular rate and rhythm without murmurs, gallops, or rubs. RESPIRATORY: Breath sounds equal bilaterally. No accessory muscle use. Lung sounds are clear to auscultation GASTROINTESTINAL: Abdomen soft, non-tender, nondistended. MUSCULOSKELETAL: No cyanosis, or edema. Patient can move arms at elbows, but cannot lift her arms up. She cannot lift her legs off the bed at this time. BACK: Nontender without obvious deformity. No CVA tenderness. Procedures Intubation Time Out Performed: No Sedative: etomidate Mg Given: 20 Paralytic: vecuronium Mg Given: 10 Laryngoscope: Destinee ET Tube Size: 7.5 ET Tube Uncuffed: No Tube Secured Depth (cm): 24 Tube Secured Location: lips Tube Placement Confirmation: visualized tube passing through cords, equal breath sounds bilaterally, no breath sounds over epigastrium and confirmation by capnometry Patient Tolerated Procedure: well Intubation Complications: none Course Initial Documented Vital Signs Temperature 98.2 F 09/02/18 11:24 Pulse Rate 112 H 09/02/18 11:24 Respiratory Rate 19 09/02/18 11:24 Blood Pressure 150/86 H 09/02/18 11:24 Pulse Oximetry 99 09/02/18 11:24 Last Documented Vital Signs Temperature 97.6 F 09/02/18 16:52 Pulse Rate 64 09/02/18 16:52 Respiratory Rate 14 09/02/18 16:52 Blood Pressure 135/99 H 09/02/18 16:52 Pulse Oximetry 60 L 09/02/18 16:52 Medical Decision Making DARRIAN Attestation DARRIAN supervised visit: Yes Attestation: I, Dr. Malik, have reviewed the advance practice practitioner's documentation and am in agreement, met with the patient face to face, made the diagnosis, and the medical decision making was done by me. *My assessment and Findings: Well-developed female patient with history of myasthenia gravis, previous crises, here because she has been having increased weakness at home, difficulty speaking, difficulty swallowing, and it is suspect that she has a acute exacerbation of her myasthenia gravis. At this point, workup was initiated and case was discussed with neurology who would like the patient to be started on IVIG and plan would be to admit the patient for further treatment. Patient had been sent to CT to get a facial CT because she had fallen and is complaining of left-sided facial pain, able to lay down for the study. At 2 PM, patient started to complain that she was getting more short of breath, I went in to reevaluate the patient and she started to desaturate into the 60s. And, considering she was given a very small dose of morphine, Narcan was given. However, patient states it was not helping her. And at this point, patient is intubated for airway protection. She tolerated procedure well. Patient is then admitted to ICU, lay ups assembler Dr. Palma was debriefed on the situation and agrees to admit the patient. Aggregate critical care time was 35 minutes. Time to perform other separately billable procedures was not included in the critical care time. My time did not include minutes spent treating any other patients simultaneously or on activities that did not directly contribute to the patient's treatment. The services I provided to this patient were to treat and/or prevent clinically significant deterioration that could result in: Worsening respiratory distress, respiratory failure, cardiopulmonary arrest, I provided critical care services requiring my management, as noted below: Chart data review, documentation time, medication orders and management, vital sign assessments/reviewing monitor data, ordering and reviewing lab tests, ordering and interpreting/reviewing x-rays and diagnostic studies, care of the patient and discussion of the patient with the admitting physicians. MDM Narrative Medical decision making narrative: 43-year-old female presents to the emergency department for evaluation of myasthenia gravis exacerbation. She also reports fall and left facial injury, but no head injury. She complains of chronic migraine. Patient has a port to the left chest that will be accessed. CBC, CMP , TSH, magnesium, CK, troponin, PTT, PT/INR, UA, urine test ordered and pending. Patient is given normal saline 1 L IV bolus. Chest x-ray and CT of the facial bones are ordered and pending. 1210 -I spoke the patient's neurologist, Dr. Lehman. He recommends admission. He states he is not on-call today and to place a consult to Dr. Dover. However, he does recommend dose of IVIG in the emergency department 0.4 g/kg. He states that Dr. Dover will place further orders for his possible steroids , plasma exchange, further IVIG. I spoke to pharmacy regarding IVIG order. Pharmacist will place further protocol orders for IVIG. CBC shows slight leukocytosis of 11.6. CMP shows no acute abnormality. Magnesium is 2.1. CK is 47. Troponin is less than 0.02. TSH is 0.598. PTT is 24.3. PT/INR is 11.6/1.1. Chest x-ray shows no acute abnormality. CT of the facial bones was not tolerated by patient. Patient became short of breath, respiratory distress. Oxygen saturation dropped. Patient was intubated by Dr. Malik. I spoke with lay ups assembler, Dr. Palma, who accepts admission. I spoke with Dr. Dover, neurologist, to let him know this patient was intubated and going to ICU. He states that this patient does not usually get intubated and he may be concerned for pulmonary embolism. He states that IVIG can cause embolism. I spoke to our radiologist, Dr. Black, who states patient can have a CTA of the aorta and a CTA pulmonary. Both tests are ordered and pending. Medical Screen Exam Complete: Yes Emergency Medical Condition: Yes Differential Diagnosis Differential Diagnosis: Myesthesia gravis exacerbation versus electrolyte abnormality versus duration versus facial fracture versus contusion Medical Records Medical records reviewed: Yes I reviewed the patient's medical records. Lab Data Result diagrams: 09/02/18 12:30 09/02/18 12:30 POC Results POC Urine Results Negative Lab Results 09/02/18 09/02/18 09/02/18 Range/Units 12:30 12:30 14:20 WBC 11.6 H (4.0-11.0) th/mm3 RBC 4.53 (4.00-5.30) mil/mm3 Hgb 14.1 (11.6-15.3) gm/dL Hct 41.0 (35.0-46.0) % MCV 90.4 (80.0-100.0) fL MCH 31.1 (27.0-34.0) pg MCHC 34.4 (32.0-36.0) % RDW 14.8 (11.6-17.2) % Plt Count 369 (150-450) th/mm3 MPV 9.0 (7.0-11.0) fL Neut % (Auto) 79.8 H (16.0-70.0) % Lymph % (Auto) 11.9 (9.0-44.0) % Hendry % (Auto) 7.2 (0.0-8.0) % Eos % (Auto) 0.3 (0.0-4.0) % Baso % (Auto) 0.8 (0.0-2.0) % Neut # (Auto) 9.3 H (1.8-7.7) th/mm3 Lymph # (Auto) 1.4 (1.0-4.8) th/mm3 Hendry # (Auto) 0.8 (0.0-0.9) th/mm3 Eos # (Auto) 0.0 (0.0-0.4) th/mm3 Baso # (Auto) 0.1 (0.0-0.2) th/mm3 WBC Differential . Differential Comment Auto diff final Puncture Site Patient Temperature O2 Saturation (90-100) % ABG pH (7.380-7.420) ABG pCO2 (38-42) mmHg ABG pO2 (61-120) mmHg ABG HCO3 (22-26) mmol/L ABG O2 Content (12.0-20.0) Vol % ABG Base Excess (-2-2) mmol/L ABG Methemoglobin (0-2) % Srinivas Test Hemoglobin (12.0-16.0) G/DL Carboxyhemoglobin (0-4) % O2 Delivery Device Vent Setting Inspired O2 % Critical Value Sodium 140 (136-145) meq/L Potassium 3.7 (3.5-5.1) meq/L Chloride 120 H (98-107) meq/L Carbon Dioxide 23.9 (21.0-32.0) meq/L Anion Gap -4 L (5-15) meq/L BUN 9 (7-18) mg/dL Creatinine 0.54 (0.50-1.00) mg/dL Estimated GFR Greater than 89 (>89) mL/min POC Glucose (68-110) mg/dl Random Glucose 80 (74-106) mg/dL Calcium 8.9 (8.5-10.1) mg/dL Magnesium 2.1 (1.5-2.5) mg/dL Total Bilirubin 0.5 (0.2-1.0) mg/dL AST 16 (15-37) U/L ALT 15 (10-53) U/L Alkaline Phosphatase 87 (45-117) U/L Total Creatine Kinase 47 (26-192) U/L Troponin I Less than 0.02 L (0.02-0.05) ng/mL Total Protein 8.7 H (6.4-8.2) g/dL Albumin 3.5 (3.4-5.0) g/dL TSH 0.598 (0.358-3.740) uIU/mL Urine Color Yellow (Yellw/Straw) Urine Clarity Clear (Clear) Urine pH 6.0 (5.0-8.5) Ur Specific Roscoe 1.017 (1.002-1.035) Urine Protein 30 H (Neg-Trace) mg/dL Urine Glucose (UA) Negative (Negative) mg/dL Urine Ketones 20 (Negative) mg/dL Urine Occult Blood Moderate H (Negative) Urine Nitrate Negative (Negative) Urine Bilirubin Negative (Negative) Urine Urobilinogen 4 or greater (Less than 2) mg/dL Ur Leukocyte Esterase Negative (Negative) Urine RBC 11 H (0-3) /hpf Urine WBC 2 (0-5) /hpf Ur Squamous Epith Cells <1 (0-5) /hpf Urine Mucus Moderate H (Occasional) /lpf Micro UA Comment Culture not ind Ur Microscopic Review Not Reportable Urine Culture Comments Culture not ind 09/02/18 09/02/18 09/02/18 Range/Units 15:24 15:25 17:35 WBC (4.0-11.0) th/mm3 RBC (4.00-5.30) mil/mm3 Hgb (11.6-15.3) gm/dL Hct (35.0-46.0) % MCV (80.0-100.0) fL MCH (27.0-34.0) pg MCHC (32.0-36.0) % RDW (11.6-17.2) % Plt Count (150-450) th/mm3 MPV (7.0-11.0) fL Neut % (Auto) (16.0-70.0) % Lymph % (Auto) (9.0-44.0) % Hendry % (Auto) (0.0-8.0) % Eos % (Auto) (0.0-4.0) % Baso % (Auto) (0.0-2.0) % Neut # (Auto) (1.8-7.7) th/mm3 Lymph # (Auto) (1.0-4.8) th/mm3 Hendry # (Auto) (0.0-0.9) th/mm3 Eos # (Auto) (0.0-0.4) th/mm3 Baso # (Auto) (0.0-0.2) th/mm3 WBC Differential Differential Comment Puncture Site Left radial Patient Temperature 98.6 O2 Saturation 98 (90-100) % ABG pH 7.37 L (7.380-7.420) ABG pCO2 37 L (38-42) mmHg ABG pO2 226 H (61-120) mmHg ABG HCO3 21 L (22-26) mmol/L ABG O2 Content 18.9 (12.0-20.0) Vol % ABG Base Excess -3.3 L (-2-2) mmol/L ABG Methemoglobin 0.6 (0-2) % Srinivas Test Present Hemoglobin 13.3 (12.0-16.0) G/DL Carboxyhemoglobin 0.9 (0-4) % O2 Delivery Device Ventilator Vent Setting Prvc/ac Inspired O2 50 % Critical Value No Sodium (136-145) meq/L Potassium (3.5-5.1) meq/L Chloride (98-107) meq/L Carbon Dioxide (21.0-32.0) meq/L Anion Gap (5-15) meq/L BUN (7-18) mg/dL Creatinine (0.50-1.00) mg/dL Estimated GFR (>89) mL/min POC Glucose 98 97 (68-110) mg/dl Random Glucose (74-106) mg/dL Calcium (8.5-10.1) mg/dL Magnesium (1.5-2.5) mg/dL Total Bilirubin (0.2-1.0) mg/dL AST (15-37) U/L ALT (10-53) U/L Alkaline Phosphatase (45-117) U/L Total Creatine Kinase (26-192) U/L Troponin I (0.02-0.05) ng/mL Total Protein (6.4-8.2) g/dL Albumin (3.4-5.0) g/dL TSH (0.358-3.740) uIU/mL Urine Color (Yellw/Straw) Urine Clarity (Clear) Urine pH (5.0-8.5) Ur Specific Roscoe (1.002-1.035) Urine Protein (Neg-Trace) mg/dL Urine Glucose (UA) (Negative) mg/dL Urine Ketones (Negative) mg/dL Urine Occult Blood (Negative) Urine Nitrate (Negative) Urine Bilirubin (Negative) Urine Urobilinogen (Less than 2) mg/dL Ur Leukocyte Esterase (Negative) Urine RBC (0-3) /hpf Urine WBC (0-5) /hpf Ur Squamous Epith Cells (0-5) /hpf Urine Mucus (Occasional) /lpf Micro UA Comment Ur Microscopic Review Urine Culture Comments Imaging Data Radiologist's impression: Chest X-Ray 09/02/18 11:48 CONCLUSION: 1. No acute abnormality or significant interval change. Chest X-Ray 09/02/18 14:12 CONCLUSION: Satisfactory support line and tube positioning. Mild left base parenchymal opacity. Face CT 09/02/18 14:20 CONCLUSION: No evidence of acute fracture. Thoracic Aorta CT 09/02/18 14:20 CONCLUSION: 1. Normal thoracic and abdominal aorta 2. Pleural-based airspace disease in both lower lobes. 3. Complex right ovarian cyst. 4. Small amount of free fluid in the cul-de-sac. 5. No evidence of suspicious mass or lymphadenopathy. Chest CTA 09/02/18 14:29 CONCLUSION: 1. No evidence of pulmonary embolism. 2. Areas of atelectasis or mild consolidation posterior lower lobes. Discharge Plan Discharge Disposition Patient Disposition: 30 Still Patient Discharge Condition Condition: Critical Discharge Details Anticipated Discharge Date: 09/02/18 Diagnosis: Myasthenia gravis in crisis Physicians Team ED Provider: Sarah Malik ED Midlevel Provider: Manda Geiger Primary Care Provider: UNKNOWN, Attending Provider: Onelia Palma Other Providers: Jayce Dover Status ED Status: Left Department Discharge Information Discharge Date/Time: 09/02/18 16:00
[2018-09-02] MEDS ORDERED: Morphine Sulfate Inj 2 MG/ML Vial IV.PUSH ONE (12:25)
--- NOTE | 2018-09-02 12:38 | XR ---
EXAM DATE: 09/02/2018 12:20 PM EST AGE/SEX: 43 years / Female INDICATIONS: Weakness. Congestion. CLINICAL DATA: This is the patient's initial encounter. Patient reports that signs and symptoms have been present for 2 days and indicates a pain score of 5/10. MEDICAL/SURGICAL HISTORY: None. None. [place] [facility] [place] . FINDINGS: Stable left subclavian [id number]. No significant new focal pleural or parenchymal opacities. Card iomediastinal contours are within normal limits. Bony thorax is intact. CONCLUSION: 1. No acute abnormality or significant interval change. Electronically signed by: Robbie Cho MD 09/02/2018 12:37 PM EST
[2018-09-02 12:59] LABS: Baso # (Auto) 0.1 th/mm3 (0.0-0.2); Baso % (Auto) 0.8 % (0.0-2.0); Eos % (Auto) 0.3 % (0.0-4.0); Hemoglobin 14.1 gm/dL (11.6-15.3); Lymph # (Auto) 1.4 th/mm3 (1.0-4.8); Lymph % (Auto) 11.9 % (9.0-44.0); Mean Corpuscular HGB Conc 34.4 % (32.0-36.0); Mean Corpuscular Hemoglobin 31.1 pg (27.0-34.0); Mean Corpuscular Volume 90.4 fL (80.0-100.0); Mono # (Auto) 0.8 th/mm3 (0.0-0.9); Mono % (Auto) 7.2 % (0.0-8.0); Neut # (Auto) 9.3 th/mm3 (1.8-7.7); Neut % (Auto) 79.8 % (16.0-70.0); Platelet Count 369 th/mm3 (150-450); Red Blood Count 4.53 mil/mm3 (4.00-5.30); Red Cell Distribution Width 14.8 % (11.6-17.2); White Blood Count 11.6 th/mm3 (4.0-11.0)
[2018-09-02] MEDS ORDERED: Acetaminophen 325 MG Tablet PO SCH (13:00)
[2018-09-02] MEDS: diphenhydrAMINE HCl 12.5 MG/5 ML Elixir UDC PO ONE ×2 (13:07→16:03)
[2018-09-02] MEDS ORDERED: IVIG (Immune Globulin) Inj 25 GM in Syringe/Bag 1 EACH IV.SIG SCH ×2 (13:16→14:00)
[2018-09-02 13:25] LABS: Alanine Aminotransferase 15 U/L (10-53); Albumin 3.5 g/dL (3.4-5.0); Anion Gap -4 meq/L (5-15); Aspartate Aminotransferase 16 U/L (15-37); Blood Urea Nitrogen 9 mg/dL (7-18); Calcium 8.9 mg/dL (8.5-10.1); Carbon Dioxide 23.9 meq/L (21.0-32.0); Chloride 120 meq/L (98-107); Glomerular Filtration Rate Greater Than 89 mL/min (>89); Glucose,Random 80 mg/dL (74-106); Magnesium 2.1 mg/dL (1.5-2.5); Potassium 3.7 meq/L (3.5-5.1); Sodium 140 meq/L (136-145)
[2018-09-02] MEDS ORDERED: Acetaminophen 650 MG Supp RECTAL ONE (13:25)
[2018-09-02 13:35] LABS: Alkaline Phosphatase 87 U/L (45-117); Thyroid Stimulating Hormone 0.598 uIU/mL (0.358-3.740); Total Protein 8.7 g/dL (6.4-8.2)
[2018-09-02 13:36] LABS: Creatine Kinase 47 U/L (26-192)
[2018-09-02] MEDS ORDERED: Naloxone Inj 2 MG/2 ML Vial ONE (14:00)
[2018-09-02] MEDS ORDERED: Etomidate Inj 40 MG/20 ML Vial IV.PUSH ONE ×2 (14:03→14:40)
[2018-09-02] MEDS ORDERED: Propofol 1000 mg/100 ml Inj 1,000 MG/100 ML BOTTLE ONE (14:12)
[2018-09-02] MEDS: Propofol 1000 mg/100 ml Inj 1,000 MG/100 ML BOTTLE IV.CONT PRN ×2 (14:15→22:08)
[2018-09-02 14:40] LABS: Bilirubin,Urine Negative (Negative); Clarity,Urine Clear (Clear); Color,Urine Yellow (Yellw/Straw); Glucose,Urine (UA) Negative (Negative); Leukocyte Esterase,Urine Negative (Negative); Mucus,Urine Moderate /lpf (Occasional); Nitrite,Urine Negative (Negative); Specific Gravity,Urine 1.017 (1.002-1.035); Squamous Epithelial Cell,Urine <1 /hpf (0-5); Urobilinogen,Urine 4 or Greater mg/dL (Less than 2)
[2018-09-02] MEDS ORDERED: Etomidate Inj 20 MG/10 ML Ampul IV.PUSH ONE (14:42)
[2018-09-02] MEDS ORDERED: Potassium Chlor 40 mEq Premix 40 MEQ/100 ML PIGGYBACK IV.SIG PRN ×2 (14:43)
[2018-09-02] MEDS ORDERED: Bisacodyl 10 MG Supp RECTAL PRN (14:43)
[2018-09-02] MEDS ORDERED: Magnesium Sulfate Inj 4 GM in Sodium Chlor 0.9% Inj 92 ML IV.SIG PRN (14:43)
[2018-09-02] MEDS ORDERED: Magnesium Sulfate Inj 2 GM in Sodium Chlor 0.9% Inj 96 ML IV.SIG PRN (14:43)
[2018-09-02] MEDS ORDERED: Potassium Phosphate 500 MG Soluble Tablet PO PRN ×2 (14:43)
[2018-09-02] MEDS ORDERED: Sodium Phosphate Inj 30 MMOL in Sodium Chlor 0.9% Inj 250 ML IV.SIG PRN (14:43)
[2018-09-02] MEDS ORDERED: Potassium Chlor 20 mEq Premix 20 MEQ/100 ML PIGGYBACK IV.SIG PRN ×2 (14:43)
[2018-09-02] MEDS ORDERED: Magnesium Oxide 400 MG Tablet PO PRN (14:43)
--- NOTE | 2018-09-02 14:45 | XR ---
EXAM DATE: 09/02/2018 2:36 PM EST AGE/SEX: 43 years / Female INDICATIONS: Post intubation. CLINICAL DATA: This is the patient's initial encounter. Patient reports that signs and symptoms have been present for 1 day and indicates a pain score of Nonresponsive. MEDICAL/SURGICAL HISTORY: . myasthenia gravis. . thymectomy. COMPARISON: [facility], CHEST 1V SINGLE AP, 09/02/2018. . FINDINGS: Endotracheal tube tip is just above the brenton nasogastric tube descends into the stomach. Left chest port is present and is accessed. There is slight streaky basilar parenchymal opacity on the left. Ca rdiac contours are stable and satisfactory. CONCLUSION: Satisfactory support line and tube positioning. Mild left base parenchymal opacity. Electronically signed by: Kory Black MD 09/02/2018 2:44 PM EST
[2018-09-02 15:42] LABS: ABG Base Excess -3.3 mmol/L (-2-2); ABG PCO2 37 mmHg (38-42); ABG PO2 226 mmHg (61-120)
--- NOTE | 2018-09-02 16:16 | CT ---
EXAM DATE: 09/02/2018 4:12 PM EST AGE/SEX: 43 years / Female INDICATIONS: Facial injury. CLINICAL DATA: This is the patient's initial encounter. Patient reports that signs and symptoms have been present for 1 day and indicates a pain score of Nonresponsive. MEDICAL/SURGICAL HISTORY: . DDD, MYASTHENIA GRAVIS Tubal ligation. HIP REPLACEMENT RADIATION DOSE: 29.28 CTDI (mGy) COMPARISON: No prior exams available for comparison. TECHNIQUE: Contiguous images in the axial and coronal planes were obtained using helical multirow de tector technique. Using automated exposure control and adjustment of the mA and/or kV according to p atient size, radiation dose was kept as low as reasonably achievable to obtain optimal diagnostic konstantin lity images. DICOM format image data is available electronically for review and comparison. FINDINGS: Orbits: The orbital and infraorbital osseous structures are intact. The retroconal structures have a normal configuration. No radiopaque foreign bodies are seen. Nasal Bone: The nasal bone and maxillary spine are intact. Zygomatic Arches: Symmetric without evidence of fracture. Sinuses: The maxillary, ethmoid, and frontal sinuses are intact. No air-fluid levels seen. Nasal Cavity: The nasal septum is intact and midline. The lacrimal ducts are intact. Soft Tissues: No radiopaque foreign bodies seen. No soft-tissue swelling is seen. Intracranial: No intracranial air seen. Cribriform Plate: Grossly intact. CONCLUSION: No evidence of acute fracture. Electronically signed by: Damon Hammonds MD 09/02/2018 4:15 PM EST
--- NOTE | 2018-09-02 16:18 | CT ---
EXAM DATE: 09/02/2018 4:14 PM EST AGE/SEX: 43 years / Female INDICATIONS: Myasthenia Gravis flare up. Patient status post recent intubation. CLINICAL DATA: This is the patient's initial encounter. Patient reports that signs and symptoms have been present for 1 day and indicates a pain score of Nonresponsive. MEDICAL/SURGICAL HISTORY: . DDD, Myasthenia Gravis Tubal ligation. hip replacement RADIATION DOSE: 6.28 CTDI (mGy) COMPARISON: [facility], CHEST 1V SINGLE AP, 09/02/2018. . TECHNIQUE: Volumetric scanning was performed using a multi-row detector CT scanner during bolus infu slime of 50 ml Omnipaque 350 (iohexol) nonionic water-soluble contrast as a single exam dose. The marion a was post processed with a variety of visualization algorithms including full volume maximum intensi ty projection and sliding thin slab reformation. Using automated exposure control and adjustment of t he mA and/or kV according to patient size, radiation dose was kept as low as reasonably achievable to obtain optimal diagnostic quality images. DICOM format image data is available electronically for r eview and comparison. FINDINGS: Pulmonary Arteries: No filling defects are seen in the pulmonary arteries out to the subsegmental ve ssels. The left and right pulmonary arteries are normal in diameter. Lung: There are areas of atelectasis or mild consolidation along the posterior lower lobes. Effusion: None. Mediastinum: No evidence of mediastinal or hilar adenopathy. The endotracheal tube and nasogastric t ube remain in place. Other: The axilla is unremarkable. CONCLUSION: 1. No evidence of pulmonary embolism. 2. Areas of atelectasis or mild consolidation posterior lower lobes. Electronically signed by: Ez Bonds MD 09/02/2018 4:17 PM EST
--- NOTE | 2018-09-02 16:55 | CT ---
EXAM DATE: 09/02/2018 4:38 PM EST AGE/SEX: 43 years / Female INDICATIONS: Myasthenia Gravis flare up. CLINICAL DATA: This is the patient's initial encounter. Patient reports that signs and symptoms have been present for 1 day and indicates a pain score of Nonresponsive. MEDICAL/SURGICAL HISTORY: . DDD, Myasthenia Gravis flare up Tubal ligation. hip replacement RADIATION DOSE: 5.51 CTDI (mGy) COMPARISON: [facility], CT ABDOMEN AND PELVIS W/ CONTRAST, 01/31/2018. . TECHNIQUE: Volumetric scanning was performed using a multi-row detector CT scanner during bolus infu slime of 50ML ml Omnipaque 350 (iohexol) nonionic water-soluble contrast as a single exam dose. The data was post processed with a variety of visualization algorithms including full volume maximum inte nsity projection, multi-planar sliding thin slab reformation, curved planar reformation, and surface rendering techniques. Using automated exposure control and adjustment of the mA and/or kV according to patient size, radiation dose was kept as low as reasonably achievable to obtain optimal diagnostic quality images. DICOM format image data is available electronically for review and comparison. FINDINGS: Lungs: Mild pleural based airspace disease is identified in both lower lobes. There is no evidence o f pneumothorax. No concerning pulmonary nodule is visualized. No pleural fluid is present. Mediastinum: No abnormally enlarged lymph nodes by CT criteria. No axillary or hilar abnormalities a re identified. Abdomen: The liver and spleen are free of focal defects. The gallbladder and pancreas demonstrate no abnormality. The adrenal glands are normal. The kidneys demonstrate no evidence of solid renal mass or hydronephrosis. There is no gross of abdominal mass. No para-aortic adenopathy is seen. Pelvis: Small amount of free fluid is identified in the pelvis. 2.7 cm complex cyst is identified in the right ovary. No abnormally enlarged inguinal or retroperitoneal lymph nodes are present. The cristal dder is unremarkable. Thoracic Aorta: The thoracic aortic root is normal with normal branching of the great vessels. Ther e is no evidence of aneurysm or dissection. Abdominal Aorta: The aorta is normal in caliber without aneurysm or dissection. The renal arteries are patent bilaterally. The proximal celiac and superior mesenteric arteries are patent and normal i n diameter. Pelvic Vessels: The internal iliac and external iliac vessels are patent without aneurysm or stenosi s. CONCLUSION: 1. Normal thoracic and abdominal aorta 2. Pleural-based airspace disease in both lower lobes. 3. Complex right ovarian cyst. 4. Small amount of free fluid in the cul-de-sac. 5. No evidence of suspicious mass or lymphadenopathy. Electronically signed by: Damon Hammonds MD 09/02/2018 4:53 PM EST
[2018-09-02] MEDS: Sod Chloride 0.9% Inj 1,000 ML IV.CONT SCH (17:34)
--- NOTE | 2018-09-02 17:41 | P.HPCC ---
History of Present Illness Primary Care Physician: UNKNOWN History of Present Illness: This is a 43-year-old female that presented to the ED after stating complaints of having progressive weakness beginning last evening. The patient was noted to states she had had difficulty ambulating and fell last evening also began to have difficulty swallowing and presented to the ED this afternoon. Upon admission to the ED the patient had an acute myasthenic crisis and required emergent intubation. Neurology was consulted the patient was started on IVIG. Imaging studies were obtained results are pending. History obtained from ED physician . History also obtained from medical records patient previously admitted for approximately 4 times this year for myasthenia gravis exacerbation. Critical care medicine was consulted. Inpatient Certification: I certify that the inpatient services were ordered in accordance with Medicare regulations governing the order. This includes certification that hospital inpatient services are reasonable and necessary and in the case of services not specified as inpatient-only under 42 CFR 419.22(n), that they are appropriately provided as inpatient services in accordance to with the 2-midnight benchmark under 43 CFR 412.3(e) Estimated Total Length of Stay (Days): 5 Plans for Post Hospital Care: Not yet determined Review of Systems unobtainable due to endotracheal tube PMFSH - History History Provided By: Medical Record - Medical History Medical History: Medical History (Last Reviewed 09/02/18 @ 11:49 by Kiera Escamilla) Chronic low back pain (Chronic) Degenerative disc disease (Chronic) Anxiety (Acute) Depressed (Chronic) Myasthenia gravis (Acute) - Surgical History Surgical History: Surgical History (Last Reviewed 09/02/18 @ 11:49 by Kiera Escamilla) History of thymectomy (Chronic) History of hip replacement (Acute) Hx of tonsillectomy (Acute) Hx of tubal ligation (Acute) - Tobacco History Second Hand Smoke Exposure: No Smoking Status: Former smoker Tobacco Type: Cigarettes Packs Per Day: 2 Years Smoked: 20 - Alcohol History How Often Do You Have a Drink Containing Alcohol: Never - Substance Use History Substance History: No History of Abuse - Travel History Recent Travel in the [place] Within the Last 8 Weeks: No Recent Travel Out of the Country Within the Last 8 Weeks: No - Immunization History Tetanus Immunization: Unsure Medications and Allergies Active Medications: Active Medications Acetaminophen (Tylenol) 650 mg PO Q6H PRN PRN Reason: PAIN 1-10 AND/OR FEVER >101F Al Hydroxide/Mg Hydroxide (Milk Of Gayathri Venegas) 30 ml PO Q12H PRN PRN Reason: Mild Constipation Albuterol (Albuterol Neb (Prn)) 2.5 mg NEB Q2HR NEB PRN PRN Reason: SHORTNESS OF BREATH/WHEEZING Albuterol (Duoneb Neb (Gómez)) 1 ampul NEB Q6HR NEB GÓMEZ Last Admin: 09/02/18 15:15 Dose: 1 ampul Bisacodyl (Dulcolax Supp) 10 mg RECTAL DAILY PRN PRN Reason: SEVERE CONSITIPATION Chlorhexidine Gluconate (Chlorhexidine 2% Cloth) 3 pack TOPICAL DAILY@0400 GÓMEZ Stop: 09/08/18 03:59 Chlorhexidine Gluconate (Chlorhexidine 2% Cloth) 3 pack TOPICAL DAILY@0400 PRN PRN Reason: Extra cloth needed Stop: 09/08/18 03:59 Diphenhydramine HCl (Benadryl Inj) 50 mg IV.PUSH PRN PRN PRN Reason: ALLERGIC REACTION Stop: 09/04/18 12:32 Enoxaparin Sodium (Lovenox Inj) 30 mg SQ Q24H GÓMEZ Epinephrine HCl (Epinephrine (1:1000) Inj) 0.3 mg OTHER Q10M PRN PRN Reason: Anaphylactic Reaction Stop: 09/04/18 12:32 Famotidine (Pepcid Pf Inj) 20 mg IV.PUSH Q12HR GÓMEZ Immune Globulin 25 gm/ (Miscellaneous Medication) 250 mls @ 31.25 mls/hr IV.SIG TITRATE GÓMEZ; Protocol Stop: 09/03/18 13:59 Last Admin: 09/02/18 13:40 Dose: 31.25 mls/hr Dextrose (D5w Inj) 500 mls @ 30 mls/hr OTHER Q24H GÓMEZ Stop: 09/03/18 13:59 Last Admin: 09/02/18 13:39 Dose: 30 mls/hr Magnesium Sulfate 4 gm/ Sodium (Chloride) 100 mls @ 50 mls/hr IV.SIG UNSCH PRN PRN Reason: For Magnesium 0.9 - 1.1 mg/dL Magnesium Sulfate 2 gm/ Sodium (Chloride) 100 mls @ 50 mls/hr IV.SIG UNSCH PRN PRN Reason: For Magnesium 1.2 - 1.6 mg/dL Sodium Chloride (Ns Inj) 1,000 mls @ 84 mls/hr IV.CONT .[id number] GÓMEZ Potassium Chloride (Kcl 20 Meq Premix Inj) 20 meq in 100 mls @ 50 mls/hr IV.SIG Q2H PRN PRN Reason: For Potassium 3.3 - 3.5 mEq/L Potassium Chloride (Kcl 40 Meq Premix Inj) 40 meq in 100 mls @ 25 mls/hr IV.SIG UNSCH PRN PRN Reason: For Potassium 3.3 - 3.5 mEq/L Potassium Chloride (Kcl 20 Meq Premix Inj) 20 meq in 100 mls @ 50 mls/hr IV.SIG Q2H PRN PRN Reason: For Potassium 2.8 - 3.2 mEq/L Potassium Phosphate 30 mmol/ (Sodium Chloride) 260 mls @ 42 mls/hr IV.SIG UNSCH PRN PRN Reason: SEE LABEL COMMENTS Sodium Phosphate 30 mmol/ (Sodium Chloride) 260 mls @ 42 mls/hr IV.SIG UNSCH PRN PRN Reason: For Phosphorus < 2.5 mg/dL Potassium Chloride (Kcl 40 Meq Premix Inj) 40 meq in 100 mls @ 25 mls/hr IV.SIG Q2H PRN PRN Reason: For Potassium 2.8 - 3.2 mEq/L Propofol (Diprivan 1000 Mg/100 Ml Inj) 1,000 mg in 100 mls @ 1.769 mls/hr IV.CONT TITRATE PRN; Protocol PRN Reason: Per Protocol Last Titration: 09/02/18 14:30 Dose: 25 mcg/kg/min, 8.85 mls/hr Lactulose (Lactulose Liq) 30 ml PO DAILY PRN PRN Reason: SEVERE CONSITIPATION Magnesium Oxide (Mag-Ox) 800 mg PO UNSCH PRN PRN Reason: For Magnesium 1.2 - 1.6 mg/dL Ondansetron HCl (Zofran Inj) 4 mg IV.PUSH Q6H PRN PRN Reason: NAUSEA OR VOMITING Potassium Bicarb/Potassium Chloride (K-Lyte Cl Eff) 50 meq PO UNSCH PRN PRN Reason: For Potassium 3.3 - 3.5 mEq/L Potassium Phosphate (K-Phos Original) 2,000 mg PO Q4H PRN PRN Reason: Phosphorus Less Than 2.5 mg/dL Potassium Phosphate (K-Phos Original) 2,000 mg PO UNSCH PRN PRN Reason: SEE LABEL COMMENTS Senna/Docusate Sodium (Bonita-Colace) 1 tab PO BID GÓMEZ Sennosides (Senokot) 17.2 mg PO Q12H PRN PRN Reason: Moderate Constipation Sodium Chloride (Ns Flush) 2 ml IV.FLUSH BID GÓMEZ Sodium Chloride (Ns Flush) 2 ml IV.FLUSH PRN PRN PRN Reason: FLUSH AFTER USING IV ACCESS Allergies Allergy/AdvReac Type Severity Reaction Status Date / Time penicillin G Allergy Severe Anaphylaxis Verified 09/02/18 12:30 promethazine AdvReac Severe NAUSEOUS Verified 09/02/18 12:30 Home Medications Medication Instructions Recorded Confirmed Type clonazepam [Klonopin] 0.5 mg PO TID 04/18/18 09/02/18 History hydrocodone-acetaminophen 1 tab PO Q6H PRN 09/02/18 09/02/18 History paroxetine HCl 120 mg PO TID 09/02/18 09/02/18 History prednisone 10 mg PO DAILY 09/02/18 09/02/18 History pyridostigmine bromide 120 mg PO TID 09/02/18 09/02/18 History Results - Labs CBC & Chem 7: 09/02/18 12:30 09/02/18 12:30 Labs: Short CBC 09/02/18 Range/Units 12:30 WBC 11.6 H (4.0-11.0) th/mm3 Hgb 14.1 (11.6-15.3) gm/dL Hct 41.0 (35.0-46.0) % Plt Count 369 (150-450) th/mm3 [facility] 09/02/18 12:30 Sodium 140 Potassium 3.7 Chloride 120 H Carbon Dioxide 23.9 BUN 9 Creatinine 0.54 Calcium 8.9 Cardiac Enzymes 09/02/18 Range/Units 12:30 Total Creatine Kinase 47 (26-192) U/L Troponin I Less than 0.02 L (0.02-0.05) ng/mL Liver Function 09/02/18 Range/Units 12:30 Total Bilirubin 0.5 (0.2-1.0) mg/dL AST 16 (15-37) U/L ALT 15 (10-53) U/L Alkaline Phosphatase 87 (45-117) U/L Albumin 3.5 (3.4-5.0) g/dL Urine 09/02/18 Range/Units 14:20 Urine Color Yellow (Yellw/Straw) Urine Clarity Clear (Clear) Urine pH 6.0 (5.0-8.5) Ur Specific [place] 1.017 (1.002-1.035) Urine Protein 30 H (Neg-Trace) mg/dL Urine Glucose (UA) Negative (Negative) mg/dL - Imaging Impressions Chest X-Ray 09/02/18 11:48 CONCLUSION: 1. No acute abnormality or significant interval change. Chest X-Ray 09/02/18 14:12 CONCLUSION: Satisfactory support line and tube positioning. Mild left base parenchymal opacity. Face CT 09/02/18 14:20 CONCLUSION: No evidence of acute fracture. Thoracic Aorta CT 09/02/18 14:20 CONCLUSION: 1. Normal thoracic and abdominal aorta 2. Pleural-based airspace disease in both lower lobes. 3. Complex right ovarian cyst. 4. Small amount of free fluid in the cul-de-sac. 5. No evidence of suspicious mass or lymphadenopathy. Chest CTA 09/02/18 14:29 CONCLUSION: 1. No evidence of pulmonary embolism. 2. Areas of atelectasis or mild consolidation posterior lower lobes. Exam Vital signs: Vital Signs 09/02/18 11:24 09/02/18 11:48 09/02/18 11:50 Temperature 98.2 F Pulse Rate 112 H 111 H 93 H Respiratory Rate 19 20 Blood Pressure 150/86 H 117/76 Pulse Oximetry 99 100 99 09/02/18 12:40 09/02/18 12:46 09/02/18 12:48 Temperature 97.8 F 97.9 F Pulse Rate 96 H 90 Respiratory Rate 18 16 17 Blood Pressure 144/92 H 143/89 H Pulse Oximetry 99 96 09/02/18 13:01 09/02/18 14:05 09/02/18 14:08 Temperature 97.8 F Pulse Rate 89 Respiratory Rate 16 16 14 Blood Pressure 164/96 H Pulse Oximetry 98 100 09/02/18 14:20 09/02/18 14:36 09/02/18 14:43 Temperature 97.8 F 97.7 F Pulse Rate 99 H 96 H Respiratory Rate 16 14 Blood Pressure 126/89 142/97 H Pulse Oximetry 100 100 100 09/02/18 15:00 09/02/18 15:19 09/02/18 15:27 Temperature 97.8 F Pulse Rate 93 H 92 H 71 Respiratory Rate 14 14 14 Blood Pressure 135/92 H 140/87 Pulse Oximetry 100 100 09/02/18 15:45 09/02/18 16:52 Temperature 97.7 F 97.6 F Pulse Rate 96 H 64 Respiratory Rate 14 14 Blood Pressure 130/86 135/99 H Pulse Oximetry 100 100 Intake & Output 09/01/18 09/02/18 09/02/18 18:59 06:59 18:59 Intake Total 1000 / 1000 Output Total 500 / 500 Balance 500 / 500 Weight 58.967 kg Intake: IV 1000 / 1000 Output: Urine 300 / 300 Urine Amount (Catheter) 200 / 200 Indwelling Urethral Catheter 200 / 200 Other: # Voids 1 - Constitutional no acute distress - Routine HEENT Exam Head: Present: normocephalic Eye: Present: PERRL ENT: Present: mucous membranes moist, dentition normal, nares patent - Routine Neck Exam Present: supple - Routine Respiratory Exam Present: patient mechanically ventilated - Routine Cardiovascular Exam Present: RRR, S1, S2 - Routine Abdominal Exam Present: soft, normoactive bowel sounds - Routine Extremities Exam Present: pulses intact - Routine Skin Exam Present: intact, warm - Routine Neurological Exam Present: normal tone Caprini VTE Risk Assessment Caprini VTE Risk Assessment: Moderate/High Risk (score >= 2) Caprini Risk Assessment Model: Point Value = 1 Point Value = 2 Point Value = 3 Point Value = 5 Age 41-60 Minor surgery BMI > 25 kg/m2 Swollen legs Varicose veins or History of unexplained or recurrent spontaneous Oral contraceptives or hormone replacement Sepsis (< 1 month) Serious lung disease, including pneumonia (< 1 month) Abnormal pulmonary function Acute myocardial infarction Congestive heart failure (< 1 month) History of inflammatory bowel disease Medical patient at bed rest Age 61-74 Arthroscopic surgery Major open surgery (> 45 min) Laparoscopic surgery (> 45 min) Malignancy Confined to bed (> 72 hours) Immobilizing plaster cast Central venous access Age >= 75 History of VTE Family history of VTE Factor V Leiden Prothrombin [id number] Lupus anticoagulant Anticardiolipin antibodies Elevated serum homocysteine Heparin-induced thrombocytopenia Other congenital or acquired thrombophilia Stroke (< 1 month) Elective arthroplasty Hip, pelvis, or leg fracture Acute spinal cord injury (< 1 month) Prophylaxis Regimen: Total Risk Factor Score Risk Level Prophylaxis Regimen 0-1 Low Early ambulation 2 Moderate Order ONE of the following: *Sequential Compression Device (SCD) *Heparin 5000 units SQ BID 3-4 Higher Order ONE of the following medications: *Heparin 5000 units SQ TID *Enoxaparin/Lovenox 40 mg SQ daily (WT < 150 kg, CrCl > 30 mL/min) *Enoxaparin/Lovenox 30 mg SQ daily (WT < 150 kg, CrCl > 10-29 mL/min) *Enoxaparin/Lovenox 30 mg SQ BID (WT < 150 kg, CrCl > 30 mL/min) AND/OR *Sequential Compression Device (SCD) 5 or more Highest Order ONE of the following medications: *Heparin 5000 units SQ TID (Preferred with Epidurals) *Enoxaparin/Lovenox 40 mg SQ daily (WT < 150 kg, CrCl > 30 mL/min) *Enoxaparin/Lovenox 30 mg SQ daily (WT < 150 kg, CrCl > 10-29 mL/min) *Enoxaparin/Lovenox 30 mg SQ BID (WT < 150 kg, CrCl > 30 mL/min) AND *Sequential Compression Device (SCD) Assessment and Plan - Assessment and Plan Plan: Plan by systems: Neurologic: Myasthenia gravis exacerbation Migraine headache Chronic opioid use History of substance abuse Chronic benzodiazepine use Neuro checks per ICU Obtain urine toxicity screen Propofol infusion to maintain ventilator synchrony Daily sedation vacation Resume home medications when clinically indicated-which include Klonopin hydrocodone, and paroxitene Neurology consulted-Dr. Dover following Initiation of IVIG dosing TSH 0.598 Oxycodone 5 mg every 6 hours as needed for pain scale 8-10 Continue home medication prednisone Respiratory: Acute hypoxemic respiratory failure secondary to myasthenia gravis exacerbation Ventilator bundle Wean FiO2 to maintain O2 saturation of 92% Duo nebs every 4 hours as needed for wheezing Begin CPAP trials in a.m. 09/02 CT angiogram pulmonary negative for pulmonary emblem Cardiovascular: Maintain map greater than 65 Renal: DC Ledezma catheter applied purewick catheter -- Strict I/Os FEN/GI: Monitor BMP Normal saline 84 cc/hr Maintain n.p.o. status for now Zofran for nausea Famotidine GI prophylaxis Heme/ID: Monitor CBC Obtain cultures if clinically indicated Endocrine: Glucose monitoring per ICU -- SSI Prophylaxis: GI Prophylaxis Famotidine twice daily DVT Prophylaxis -- SCDs Lines: Peripheral IVs x2 Dispo: My billing statement This patient remains critically ill with one or more organ systems which are or may become a threat to life. I have spent in excess of 60 minutes discontinuously in the care and management of this patient. This time is exclusive of procedures, and includes, but is not limited to, evaluation of the patient, review of the medical record, discussions with family, consultants, nursing staff, or respiratory therapy, and documentation in the medical record. Code Status: Full H&P: Quality - VTE Deep Vein Thrombosis/Pulmonary Embolism Present on Admission: No
[2018-09-02 19:32] LABS: Amphetamine Screen,Urine Neg (Neg); Barbiturate Screen,Urine Neg (Neg); Cannabinoid Screen,Urine Pos (Neg); Cocaine Screen,Urine Pos (Neg)
[2018-09-02 19:36] LABS: Opiate Screen,Urine Pos (Neg)
[2018-09-02] MEDS: Enoxaparin Inj 30 MG/0.3 ML Syringe SQ SCH (22:03)
[2018-09-02] MEDS: Senna/Docusate Sodium 8.6/50 MG Tablet PO SCH (22:07)
[2018-09-02] MEDS: Famotidine PF Inj 20 MG/2 ML Vial IV.PUSH SCH (22:07)
[2018-09-03] MEDS ORDERED: Chlorhexidine Gluconate 2% 1 Pack (2 Cloths) TOPICAL PRN (04:00)
--- NOTE | 2018-09-03 05:04 | XR ---
EXAM DATE: 09/03/2018 4:07 AM EST AGE/SEX: 43 years / Female INDICATIONS: Shortness of breath, possible pulmonary disease. CLINICAL DATA: This is the patient's subsequent encounter. Patient reports that signs and symptoms h ave been present for 2 days and indicates a pain score of Nonresponsive. MEDICAL/SURGICAL HISTORY: . Myasthenia gravis . Thymectomy. COMPARISON: [facility], CHEST 1V SINGLE AP, 09/02/2018. . FINDINGS: Endotracheal tube in good position. NG enters stomach. Left-sided [id number] in superior vena cava . Minimal basilar atelectasis or scarring. No effusion or pneumothorax. CONCLUSION: Minimal basilar airspace disease, stable. No effusion or pneumothorax. Support apparatus unchanged. Electronically signed by: Horace Lind MD 09/03/2018 5:03 AM EST
[2018-09-03] MEDS: Sod Chloride 0.9% Inj 1,000 ML IV.CONT SCH ×2 (05:07→16:15)
[2018-09-03] MEDS: Propofol 1000 mg/100 ml Inj 1,000 MG/100 ML BOTTLE IV.CONT PRN ×3 (05:08→20:01)
[2018-09-03] MEDS: Chlorhexidine Gluconate 2% 1 Pack (2 Cloths) TOPICAL SCH (05:08)
[2018-09-03 06:59] LABS: Baso # (Auto) 0.1 th/mm3 (0.0-0.2); Baso % (Auto) 0.6 % (0.0-2.0); Eos # (Auto) 0.1 th/mm3 (0.0-0.4); Eos % (Auto) 1.3 % (0.0-4.0); Hematocrit 38.5 % (35.0-46.0); Hemoglobin 12.6 gm/dL (11.6-15.3); Lymph # (Auto) 0.9 th/mm3 (1.0-4.8); Lymph % (Auto) 8.4 % (9.0-44.0); Mean Corpuscular HGB Conc 32.8 % (32.0-36.0); Mean Corpuscular Hemoglobin 30.6 pg (27.0-34.0); Mean Corpuscular Volume 93.3 fL (80.0-100.0); Mean Platelet Volume 9.6 fL (7.0-11.0); Mono # (Auto) 0.8 th/mm3 (0.0-0.9); Mono % (Auto) 7.2 % (0.0-8.0); Neut # (Auto) 8.9 th/mm3 (1.8-7.7); Neut % (Auto) 82.5 % (16.0-70.0); Platelet Count 321 th/mm3 (150-450); Red Blood Count 4.13 mil/mm3 (4.00-5.30); Red Cell Distribution Width 14.8 % (11.6-17.2); White Blood Count 10.8 th/mm3 (4.0-11.0)
[2018-09-03 07:15] LABS: INR 1.1 Ratio; Prothrombin Time 10.7 sec (9.8-11.6)
[2018-09-03 07:29] LABS: Alanine Aminotransferase 13 U/L (10-53); Albumin 2.9 g/dL (3.4-5.0); Alkaline Phosphatase 70 U/L (45-117); Anion Gap 1 meq/L (5-15); Aspartate Aminotransferase 13 U/L (15-37); Blood Urea Nitrogen 5 mg/dL (7-18); Calcium 8.2 mg/dL (8.5-10.1); Carbon Dioxide 20.8 meq/L (21.0-32.0); Chloride 119 meq/L (98-107); Glomerular Filtration Rate Greater Than 89 mL/min (>89); Glucose,Random 66 mg/dL (74-106); Phosphorus 2.9 mg/dL (2.5-4.9); Potassium 3.3 meq/L (3.5-5.1); Sodium 141 meq/L (136-145)
[2018-09-03] MEDS: Famotidine PF Inj 20 MG/2 ML Vial IV.PUSH SCH ×2 (08:24→20:01)
[2018-09-03] MEDS: predniSONE Liq 5 MG/5 ML UDC PO SCH (08:24)
[2018-09-03] MEDS: Potassium Chloride 25 MEQ Effervescent Tablet PO PRN (08:26)
[2018-09-03] MEDS: Senna/Docusate Sodium 8.6/50 MG Tablet PO SCH ×2 (08:26→20:01)
[2018-09-03] MEDS: Acetaminophen 325 MG Tablet PO PRN (11:30)
--- NOTE | 2018-09-03 13:02 | MB ---
cc: Jayce Dover MD DATE: 09/03/2018 HISTORY OF PRESENT ILLNESS: The patient is well known to the neurology service. Has been in here many times for IVIG with myasthenia gravis. She was seen in 01/2018 and had cocaine in her system, and then last night she came in with increased myasthenia, trouble swallowing, and then had trouble breathing and was subsequently intubated. She was last seen by neurology 04/18/2018. She was on Mestinon ER 180 a day and 60 mg q.i.d., prednisone 20 mg at home. She had IVIG 03/28/2018 and 03/29/2018 which did not seem to help, had increased weakness, and I gave her more IVIG. I last saw her in 02/2018. She is a 43-year-old woman with frequent exacerbations of myasthenia gravis, a lot of bulbar symptoms. She is status post thymectomy. She had been on CellCept and required intubation in the past. She was tried on cyclosporine but had paresthesias. She was on rituximab and had a reaction to that and was put on prednisone. At that time, she was on CellCept 500 t.i.d., prednisone 25 a day, 81 of aspirin, Imitrex, Mestinon 120 extended release. Eye closure was about 4+/5, buccal muscles 4-. Otherwise, strength from the neck down was normal. Gave her an extended-release Mestinon at 6 a.m. and then immediate-release at 6, noon, and 6. She get IVIG over 5 days. I thought she should have followup at the [facility]. Need to watch her psychiatric issues on prednisone. She has been on the psych lara before. PAST MEDICAL HISTORY: Depression, anxiety, avascular necrosis of the hip, and myasthenia. ALLERGIES: PENICILLIN, PROMETHAZINE. MEDICATION BEFORE ADMISSION: 1. Paroxetine 120 t.i.d. 2. Prednisone 10 mg a day. 3. Mirtazapine 45 a day. 4. Sumatriptan. 5. Mestinon 120 t.i.d. 6. Hydrocodone. 7. Gabapentin 300 at nighttime. 8. Klonopin 0.5 t.i.d. 9. She got IVIG 25 grams last evening. PHYSICAL EXAMINATION: VITAL SIGNS: 89, 12, 139/82 to 150/86, afebrile. NEUROLOGIC: She is currently intubated, but awake. Her eye closure is very weak 4-/5. She follows commands well. [employer] is normal. Iliopsoas normal bilaterally. No apparent distress. LABORATORY DATA: CBC is normal. UA is negative except for 30 protein. Metabolic profile was normal except potassium is 3.3, calcium 8.2. Magnesium, phosphorus LFTs, albumin normal. Ammonia level negative. TSH normal. Initially, her chloride was 120. ABG 7.37, 37, and 226. Coagulation studies normal. Urine drug screen positive for opiates, cocaine, and marijuana. She had a CTA of her chest, no PE. Thoracic aortic CT negative. Chest x-ray, minimal atelectasis. Face CT negative. IMPRESSION: Myasthenia gravis. We should give her a total of 2 g/kg, which would be 120 grams and this could be given over the next 5 days. You can start put her back on her Mestinon and other medications. It is okay with me. She needs to stop her cocaine. Defer to the medical team when they think she is safe to come off the ventilator, though she likely has some significant bulbar weakness still. I will follow her while she is in the hospital. MD ROSS Coker/shantell , 11:58 AM , 12:09 PM
[2018-09-03] MEDS: Pyridostigmine Bromide 60 MG Tablet PO SCH (13:54)
[2018-09-03] MEDS ORDERED: IVIG IV.SIG SCH (14:00)
--- NOTE | 2018-09-03 14:28 | ECG ---
Date Performed: 09/02/2018 Time Performed: 12:23:26 PTAGE: 43 years EKG: Sinus rhythm WITH SINUS ARRHYTHMIA POSSIBLE RIGHT ATRIAL ENLARGEMENT LEFT ATRIAL ENLARGEMENT ABNORMAL ECG PREVIOUS TRACING : 06/11/2018 13.14 DOCTOR: Dameon Coronado Interpretating Date/Time 09/03/2018 14:28:16
[2018-09-03] MEDS: IVIG (Immune Globulin) Inj 25 GM in Syringe/Bag 1 EACH IV.SIG SCH (15:01)
[2018-09-03] MEDS: Acetaminophen 325 MG Tablet PO SCH (15:16)
[2018-09-03] MEDS: Sodium Chlor 0.9% Inj 500 ML IV.SIG SCH (15:17)
--- NOTE | 2018-09-03 15:56 | P.PNCC ---
Subjective Subjective Remarks/Hospital Course: 09/03: No acute events overnight the patient remains mechanically ventilated per patient received the first dose of IVIG yesterday the patient is to receive the remaining doses over the next 4 days pyridostigmine initiated this a.m. On sedation vacation the patient is alert awake responding to commands.. Ledezma catheter reinserted secondary to urinary retention and there required use of pyridostigmine secondary to medical condition. Urine toxicity resulted back yesterday polysubstance abuse. The patient was initiated on CPAP trials, will continue on CPAP trials however the patient is noted to have significant bulbar weakness with noted eyelid lag, we will continue to closely monitor ,no plans for extubation at this time. Patient continually complaining of generalized pain, oxycodone increased to 10 mg every 6 hours as needed. Objective Vital Signs / I&O: Vital Signs 09/02/18 16:52 09/02/18 20:00 09/02/18 20:34 Temperature 97.6 F 98.7 F Pulse Rate 64 73 Respiratory Rate 14 14 14 Blood Pressure 135/99 H 144/89 H Pulse Oximetry 100 100 100 09/03/18 00:00 09/03/18 00:10 09/03/18 03:41 Temperature 98.1 F Pulse Rate 92 H 90 Respiratory Rate 14 14 14 Blood Pressure 149/87 H Pulse Oximetry 100 100 100 09/03/18 04:00 09/03/18 07:13 09/03/18 07:30 Temperature 99.7 F H Pulse Rate 79 118 H 135 H Respiratory Rate 14 15 15 Blood Pressure 144/81 H 164/89 H Pulse Oximetry 100 100 100 09/03/18 07:58 09/03/18 08:00 09/03/18 08:30 Temperature 98.8 F Pulse Rate 127 H 119 H 104 H Respiratory Rate 13 13 12 Blood Pressure 151/89 H 144/79 H Pulse Oximetry 100 100 100 09/03/18 09:00 09/03/18 09:30 09/03/18 10:00 Temperature Pulse Rate 96 H 96 H 89 Respiratory Rate 12 12 12 Blood Pressure 144/85 H 132/64 139/82 Pulse Oximetry 100 100 100 09/03/18 10:30 09/03/18 11:00 09/03/18 11:30 Temperature Pulse Rate 89 94 H 131 H Respiratory Rate 12 12 20 Blood Pressure 134/89 144/84 H 157/86 H Pulse Oximetry 100 100 100 09/03/18 12:00 09/03/18 12:30 09/03/18 13:00 Temperature 99.7 F H Pulse Rate 87 107 H 105 H Respiratory Rate 12 17 12 Blood Pressure 149/90 H 159/90 H 151/93 H Pulse Oximetry 100 100 100 09/03/18 13:30 09/03/18 14:00 09/03/18 14:30 Temperature Pulse Rate 94 H 109 H 88 Respiratory Rate 12 15 14 Blood Pressure 143/89 H 152/89 H 132/83 Pulse Oximetry 100 100 100 09/03/18 15:01 Temperature Pulse Rate 108 H Respiratory Rate 13 Blood Pressure 141/66 H Pulse Oximetry Intake & Output 09/02/18 09/03/18 09/03/18 18:59 06:59 18:59 Intake Total 1000 / 1000 1200 / 1200 540 / 540 Output Total 530 / 530 842 / 842 1140 / 1140 Balance 470 / 470 358 / 358 -600 / -600 Weight 58.967 kg 60.2 kg Intake: IV 1000 / 1000 1200 / 1200 340 / 340 Diprivan 1000 mg/100 ml Inj 1, 200 / 200 90 / 90 000 mg In 100 ml @ 5 MCG/KG/MIN 1.769 mls/hr IV.CONT TITRATE PRN Rx#:[id number] NS Inj 1,000 ML @ 84 mls/hr IV. 1000 / 1000 CONT .[id number] [facility] Rx#:[id number] Privigen Inj 25 GM In Bag/ 250 / 250 Syringe 1 EACH @ 31.25 mls/hr IV.SIG TITRATE [facility] Rx#:[id number] Tube Irrigant 200 / 200 Output: Urine 300 / 300 0 / 0 Urine Amount (Catheter) 230 / 230 842 / 842 1140 / 1140 Indwelling Urethral Catheter 230 / 230 842 / 842 1140 / 1140 Other: # Voids 1 0 # Bowel Movements 0 Result Diagrams: 09/03/18 05:05 09/03/18 13:00 Other Results: Laboratory Results WBC 10.8 th/mm3 (4.0-11.0) 09/03/18 05:05 RBC 4.13 mil/mm3 (4.00-5.30) 09/03/18 05:05 Hgb 12.6 gm/dL (11.6-15.3) 09/03/18 05:05 Hct 38.5 % (35.0-46.0) 09/03/18 05:05 MCV 93.3 fL (80.0-100.0) 09/03/18 05:05 MCH 30.6 pg (27.0-34.0) 09/03/18 05:05 MCHC 32.8 % (32.0-36.0) 09/03/18 05:05 RDW 14.8 % (11.6-17.2) 09/03/18 05:05 Plt Count 321 th/mm3 (150-450) 09/03/18 05:05 MPV 9.6 fL (7.0-11.0) 09/03/18 05:05 Neut % (Auto) 82.5 % (16.0-70.0) H 09/03/18 05:05 Lymph % (Auto) 8.4 % (9.0-44.0) L 09/03/18 05:05 Cloud % (Auto) 7.2 % (0.0-8.0) 09/03/18 05:05 Eos % (Auto) 1.3 % (0.0-4.0) 09/03/18 05:05 Baso % (Auto) 0.6 % (0.0-2.0) 09/03/18 05:05 Neut # (Auto) 8.9 th/mm3 (1.8-7.7) H 09/03/18 05:05 Lymph # (Auto) 0.9 th/mm3 (1.0-4.8) L 09/03/18 05:05 Cloud # (Auto) 0.8 th/mm3 (0.0-0.9) 09/03/18 05:05 Eos # (Auto) 0.1 th/mm3 (0.0-0.4) 09/03/18 05:05 Baso # (Auto) 0.1 th/mm3 (0.0-0.2) 09/03/18 05:05 WBC Differential . 09/03/18 05:05 Differential Comment Auto diff final 09/03/18 05:05 PT 10.7 sec (9.8-11.6) 09/03/18 05:05 INR 1.1 Ratio 09/03/18 05:05 Puncture Site Left radial 09/02/18 15:25 Patient Temperature 98.6 09/02/18 15:25 O2 Saturation 98 % (90-100) 09/02/18 15:25 ABG pH 7.37 (7.380-7.420) L 09/02/18 15:25 ABG pCO2 37 mmHg (38-42) L 09/02/18 15:25 ABG pO2 226 mmHg (61-120) H 09/02/18 15:25 ABG HCO3 21 mmol/L (22-26) L 09/02/18 15:25 ABG O2 Content 18.9 Vol % (12.0-20.0) 09/02/18 15:25 ABG Base Excess -3.3 mmol/L (-2-2) L 09/02/18 15:25 ABG Methemoglobin 0.6 % (0-2) 09/02/18 15:25 Srinivas Test Present 09/02/18 15:25 Hemoglobin 13.3 G/DL (12.0-16.0) 09/02/18 15:25 Carboxyhemoglobin 0.9 % (0-4) 09/02/18 15:25 O2 Delivery Device Ventilator 09/02/18 15:25 Vent Setting Prvc/ac 09/02/18 15:25 Inspired O2 50 % 09/02/18 15:25 Critical Value No 09/02/18 15:25 Sodium 141 meq/L (136-145) 09/03/18 05:05 Potassium 3.9 meq/L (3.5-5.1) 09/03/18 13:00 Chloride 119 meq/L (98-107) H 09/03/18 05:05 Carbon Dioxide 20.8 meq/L (21.0-32.0) L 09/03/18 05:05 Anion Gap 1 meq/L (5-15) L 09/03/18 05:05 BUN 5 mg/dL (7-18) L 09/03/18 05:05 Creatinine 0.48 mg/dL (0.50-1.00) L 09/03/18 05:05 Estimated GFR Greater than 89 mL/min (>89) 09/03/18 05:05 POC Glucose 108 mg/dl (68-110) 09/03/18 11:24 Random Glucose 66 mg/dL (74-106) L 09/03/18 05:05 Calcium 8.2 mg/dL (8.5-10.1) L 09/03/18 05:05 Phosphorus 2.9 mg/dL (2.5-4.9) 09/03/18 05:05 Magnesium 2.0 mg/dL (1.5-2.5) 09/03/18 05:05 Total Bilirubin 0.4 mg/dL (0.2-1.0) 09/03/18 05:05 AST 13 U/L (15-37) L 09/03/18 05:05 ALT 13 U/L (10-53) 09/03/18 05:05 Alkaline Phosphatase 70 U/L (45-117) 09/03/18 05:05 Ammonia Less than 10 mcmol/L (11-32) L 09/02/18 18:47 Total Creatine Kinase 61 U/L (26-192) 09/02/18 18:47 Troponin I Less than 0.02 ng/mL (0.02-0.05) L 09/02/18 12:30 Total Protein 8.0 g/dL (6.4-8.2) D 09/03/18 05:05 Albumin 2.9 g/dL (3.4-5.0) L D 09/03/18 05:05 TSH 0.598 uIU/mL (0.358-3.740) 09/02/18 12:30 Urine Color Yellow (Yellw/Straw) 09/02/18 14:20 Urine Clarity Clear (Clear) 09/02/18 14:20 Urine pH 6.0 (5.0-8.5) 09/02/18 14:20 Ur Specific [place] 1.017 (1.002-1.035) 09/02/18 14:20 Urine Protein 30 mg/dL (Neg-Trace) H 09/02/18 14:20 Urine Glucose (UA) Negative mg/dL (Negative) 09/02/18 14:20 Urine Ketones 20 mg/dL (Negative) 09/02/18 14:20 Urine Occult Blood Moderate (Negative) H 09/02/18 14:20 Urine Nitrate Negative (Negative) 09/02/18 14:20 Urine Bilirubin Negative (Negative) 09/02/18 14:20 Urine Urobilinogen 4 or greater mg/dL (Less than 2) 09/02/18 14:20 Ur Leukocyte Esterase Negative (Negative) 09/02/18 14:20 Urine RBC 11 /hpf (0-3) H 09/02/18 14:20 Urine WBC 2 /hpf (0-5) 09/02/18 14:20 Ur Squamous Epith Cells <1 /hpf (0-5) 09/02/18 14:20 Urine Mucus Moderate /lpf (Occasional) H 09/02/18 14:20 Micro UA Comment Culture not ind 09/02/18 14:20 Ur Microscopic Review Not Reportable 09/02/18 14:20 Urine Culture Comments Culture not ind 09/02/18 14:20 Nasal Screen MRSA (PCR) Not detected (Negative) 09/02/18 17:00 Urine Opiates Screen Pos (Neg) H 09/02/18 17:35 Ur Barbiturates Screen Neg (Neg) 09/02/18 17:35 Ur Amphetamines Screen Neg (Neg) 09/02/18 17:35 U Benzodiazepines Scrn Neg (Neg) 09/02/18 17:35 Urine Cocaine Screen Pos (Neg) H 09/02/18 17:35 U Cannabinoids Screen Pos (Neg) H 09/02/18 17:[address] 09/02/18 14:20 CONCLUSION: No evidence of acute fracture. Thoracic Aorta CT 09/02/18 14:20 CONCLUSION: 1. Normal thoracic and abdominal aorta 2. Pleural-based airspace disease in both lower lobes. 3. Complex right ovarian cyst. 4. Small amount of free fluid in the cul-de-sac. 5. No evidence of suspicious mass or lymphadenopathy. Chest CTA 09/02/18 14:29 CONCLUSION: 1. No evidence of pulmonary embolism. 2. Areas of atelectasis or mild consolidation posterior lower lobes. Chest X-Ray 09/03/18 04:00 CONCLUSION: Minimal basilar airspace disease, stable. No effusion or pneumothorax. Support apparatus unchanged. Objective Remarks: GENERAL: Chronically ill-appearing young lady. Noted bilateral eyelid lag, responding to questions by nodding head yes and no questions. Orotracheally intubated SKIN: Warm and dry. HEAD: Atraumatic. Normocephalic. EYES: Pupils equal and round. No scleral icterus. No injection or drainage. Noted lid lag ENT: No nasal bleeding or discharge. Mucous membranes pink and moist. NECK: Trachea midline. No JVD. CARDIOVASCULAR: Normal rate, regular rhythm. RESPIRATORY: No accessory muscle use. Clear to auscultation. Breath sounds equal bilaterally. GASTROINTESTINAL: Abdomen soft, non-tender, nondistended. No guarding. MUSCULOSKELETAL: Extremities without clubbing, cyanosis, or edema. No obvious deformities. NEUROLOGICAL: Awake and alert. RASS 0. No gross focal/sensory deficits. Follows commands in all 4 extremities. Motor strength 3/5 x 4 extrema Assessment and Plan - Assessment and Plan Plan: Plan by systems: Neurologic: Myasthenia gravis exacerbation Migraine headache Chronic opioid use History of substance abuse Chronic benzodiazepine use Neuro checks per ICU Obtain urine toxicity screen Propofol infusion to maintain ventilator synchrony Daily sedation vacation Resume home medications when clinically indicated-which include Klonopin hydrocodone, and paroxitene Neurology consulted-Dr. Dover following Continue IVIG dosing-25 g daily for a total of 125 g TSH 0.598 Increase oxycodone 10 mg every 6 hours as needed for pain scale 8-10 Continue home medication prednisone 10 mg/day Pyridostigmine 30 mg 3 times daily Imitrex as needed for migraine headaches Urine toxicity noted positive for cocaine and marijuana Respiratory: Acute hypoxemic respiratory failure secondary to myasthenia gravis exacerbation Ventilator bundle Wean FiO2 to maintain O2 saturation of 92% Duo nebs every 4 hours as needed for wheezing Continue CPAP trials 09/02 CT angiogram pulmonary negative for pulmonary embolus SBT trial performed tidal volume 520, respiratory rate 12,RSBI 18, NIF -26, however patient still has significant bulbar weakness noted by bilateral lid lag continue to monitor peer to new CPAP trials to circumvent ventilator- induced diaphragmatic dysfunction in the setting of myasthenia gravis Cardiovascular: Maintain map greater than 65 Renal: DC Ledezma catheter applied purewick catheter -- Strict I/Os FEN/GI: Monitor BMP Normal saline 84 cc/hr Maintain n.p.o. status for now Zofran for nausea Famotidine GI prophylaxis Heme/ID: Monitor CBC Obtain cultures if clinically indicated Endocrine: Glucose monitoring per ICU -- SSI Prophylaxis: GI Prophylaxis Famotidine twice daily DVT Prophylaxis -- SCDs Lines: Peripheral IVs x2 Dispo: My billing statement This patient remains critically ill with one or more organ systems which are or may become a threat to life. I have spent in excess of 35 minutes discontinuously in the care and management of this patient. This time is exclusive of procedures, and includes, but is not limited to, evaluation of the patient, review of the medical record, discussions with family, consultants, nursing staff, or respiratory therapy, and documentation in the medical record. Discussed Condition With: Dr. Dover, neurologist and UNIT CONTROLLER at bedside
[2018-09-03] MEDS: Enoxaparin Inj 30 MG/0.3 ML Syringe SQ SCH ×2 (16:16→16:26)
[2018-09-04] MEDS: Pyridostigmine Bromide 60 MG Tablet PO SCH ×5 (00:07→23:43)
[2018-09-04] MEDS: Propofol 1000 mg/100 ml Inj 1,000 MG/100 ML BOTTLE IV.CONT PRN ×5 (01:40→21:17)
[2018-09-04] MEDS: Sod Chloride 0.9% Inj 1,000 ML IV.CONT SCH ×2 (04:58→16:15)
[2018-09-04] MEDS: Chlorhexidine Gluconate 2% 1 Pack (2 Cloths) TOPICAL SCH (04:58)
[2018-09-04] MEDS: Senna/Docusate Sodium 8.6/50 MG Tablet PO SCH ×2 (09:28→21:15)
[2018-09-04] MEDS: predniSONE Liq 5 MG/5 ML UDC PO SCH (09:28)
[2018-09-04] MEDS: Famotidine PF Inj 20 MG/2 ML Vial IV.PUSH SCH (09:36)
--- NOTE | 2018-09-04 09:49 | P.PNNEU ---
Subjective Active Medications: Active Medications Acetaminophen (Tylenol) 650 mg PO Q6H PRN PRN Reason: PAIN 1-5 AND/OR FEVER >101F Last Admin: 09/03/18 11:30 Dose: 650 mg Acetaminophen (Tylenol) 650 mg PO Q24H [facility] Stop: 09/06/18 14:01 Last Admin: 09/03/18 15:16 Dose: Not Given Al Hydroxide/Mg Hydroxide (Milk Of Magnrashard Liq) 30 ml PO Q12H PRN PRN Reason: Mild Constipation Albuterol (Albuterol Neb (Prn)) 2.5 mg NEB Q2HR NEB PRN PRN Reason: SHORTNESS OF BREATH/WHEEZING Albuterol (Duoneb Neb (Asohk)) 1 ampul NEB Q4HR NEB [facility] Bisacodyl (Dulcolax Supp) 10 mg RECTAL DAILY PRN PRN Reason: SEVERE CONSITIPATION Chlorhexidine Gluconate (Chlorhexidine 2% Cloth) 3 pack TOPICAL DAILY@0400 [facility] Stop: 09/08/18 03:59 Last Admin: 09/04/18 04:58 Dose: Not Given Chlorhexidine Gluconate (Chlorhexidine 2% Cloth) 3 pack TOPICAL DAILY@0400 PRN PRN Reason: Extra cloth needed Stop: 09/08/18 03:59 Clonazepam (Klonopin) 0.5 mg PO TID [facility] Diphenhydramine HCl (Benadryl Inj) 50 mg IV.PUSH PRN PRN PRN Reason: ALLERGIC REACTION Stop: 09/07/18 13:59 Diphenhydramine HCl (Benadryl) 25 mg PO Q24H [facility] Stop: 09/06/18 14:01 Last Admin: 09/03/18 14:29 Dose: 25 mg Enoxaparin Sodium (Lovenox Inj) 30 mg SQ Q24H [facility] Last Admin: 09/03/18 16:26 Dose: Not Given Epinephrine HCl (Epinephrine (1:1000) Inj) 0.3 mg OTHER Q10M PRN PRN Reason: Anaphylactic Reaction Stop: 09/07/18 13:59 Famotidine (Pepcid Pf Inj) 20 mg IV.PUSH Q12HR [facility] Last Admin: 09/04/18 09:36 Dose: 20 mg Magnesium Sulfate 4 gm/ Sodium (Chloride) 100 mls @ 50 mls/hr IV.SIG UNSCH PRN PRN Reason: For Magnesium 0.9 - 1.1 mg/dL Magnesium Sulfate 2 gm/ Sodium (Chloride) 100 mls @ 50 mls/hr IV.SIG UNSCH PRN PRN Reason: For Magnesium 1.2 - 1.6 mg/dL Sodium Chloride (Ns Inj) 1,000 mls @ 84 mls/hr IV.CONT .[id number] [facility] Last Admin: 09/04/18 04:58 Dose: 84 mls/hr Potassium Chloride (Kcl 20 Meq Premix Inj) 20 meq in 100 mls @ 50 mls/hr IV.SIG Q2H PRN PRN Reason: For Potassium 3.3 - 3.5 mEq/L Potassium Chloride (Kcl 40 Meq Premix Inj) 40 meq in 100 mls @ 25 mls/hr IV.SIG UNSCH PRN PRN Reason: For Potassium 3.3 - 3.5 mEq/L Potassium Chloride (Kcl 20 Meq Premix Inj) 20 meq in 100 mls @ 50 mls/hr IV.SIG Q2H PRN PRN Reason: For Potassium 2.8 - 3.2 mEq/L Potassium Phosphate 30 mmol/ (Sodium Chloride) 260 mls @ 42 mls/hr IV.SIG UNSCH PRN PRN Reason: SEE LABEL COMMENTS Sodium Phosphate 30 mmol/ (Sodium Chloride) 260 mls @ 42 mls/hr IV.SIG UNSCH PRN PRN Reason: For Phosphorus < 2.5 mg/dL Potassium Chloride (Kcl 40 Meq Premix Inj) 40 meq in 100 mls @ 25 mls/hr IV.SIG Q2H PRN PRN Reason: For Potassium 2.8 - 3.2 mEq/L Immune Globulin 25 gm/ (Miscellaneous Medication) 250 mls @ 31.25 mls/hr IV.SIG Q24H [facility]; Protocol Stop: 09/06/18 21:59 Last Infusion: 09/04/18 07:36 Dose: Infused Dextrose (D5w Inj) 500 mls @ 30 mls/hr OTHER Q24H [facility] Stop: 09/07/18 06:39 Last Admin: 09/03/18 15:17 Dose: 30 mls/hr Sodium Chloride (Ns Inj) 500 mls @ 500 mls/hr IV.SIG Q24H [facility] Stop: 09/06/18 14:59 Last Infusion: 09/03/18 16:10 Dose: Infused Lactulose (Lactulose Liq) 30 ml PO DAILY PRN PRN Reason: SEVERE CONSITIPATION Magnesium Oxide (Mag-Ox) 800 mg PO UNSCH PRN PRN Reason: For Magnesium 1.2 - 1.6 mg/dL Non-Formulary Medication (Gabapentin [Gabapentin]) 300 mg PO QPM [facility] Non-Formulary Medication (Mirtazapine [Mirtazapine]) 45 mg PO DAILY [facility] Non-Formulary Medication (Prednisone [Prednisone]) 10 mg PO DAILY [facility] Ondansetron HCl (Zofran Inj) 4 mg IV.PUSH Q6H PRN PRN Reason: NAUSEA OR VOMITING Oxycodone HCl (Roxicodone Intensol Liq) 10 mg PO Q6H PRN PRN Reason: PAIN SCALE 6 TO 10 Last Admin: 09/04/18 06:50 Dose: 10 mg Potassium Bicarb/Potassium Chloride (K-Lyte Cl Eff) 50 meq PO UNSCH PRN PRN Reason: For Potassium 3.3 - 3.5 mEq/L Last Admin: 09/03/18 08:26 Dose: 50 meq Potassium Phosphate (K-Phos Original) 2,000 mg PO Q4H PRN PRN Reason: Phosphorus Less Than 2.5 mg/dL Potassium Phosphate (K-Phos Original) 2,000 mg PO UNSCH PRN PRN Reason: SEE LABEL COMMENTS Prednisone (Deltasone Liq) 10 mg PO DAILY [facility] Last Admin: 09/04/18 09:28 Dose: 10 mg Pyridostigmine [place] (Mestinon) 30 mg PO Q8HR [facility] Last Admin: 09/04/18 06:51 Dose: 30 mg Senna/Docusate Sodium (Bonita-Colace) 1 tab PO BID [facility] Last Admin: 09/04/18 09:28 Dose: 1 tab Sennosides (Senokot) 17.2 mg PO Q12H PRN PRN Reason: Moderate Constipation Sodium Chloride (Ns Flush) 2 ml IV.FLUSH BID [facility] Last Admin: 09/04/18 09:37 Dose: 2 ml Sodium Chloride (Ns Flush) 2 ml IV.FLUSH PRN PRN PRN Reason: FLUSH AFTER USING IV ACCESS Last Admin: 09/04/18 09:36 Dose: 2 ml Sumatriptan Succinate (Imitrex) 50 mg PO Q4H PRN PRN Reason: HEADACHE PAIN Last Admin: 09/04/18 09:28 Dose: 50 mg Allergies/Adverse Reactions: Allergies Allergy/AdvReac Type Severity Reaction Status Date / Time penicillin G Allergy Severe Anaphylaxis Verified 09/02/18 12:30 promethazine AdvReac Severe NAUSEOUS Verified 09/02/18 12:30 Physical Exam Vital signs: Vital Signs 09/03/18 10:00 09/03/18 10:30 09/03/18 11:00 Temperature Pulse Rate 89 89 94 H Respiratory Rate 12 12 12 Blood Pressure 139/82 134/89 144/84 H Pulse Oximetry 100 100 100 09/03/18 11:30 09/03/18 12:00 09/03/18 12:30 Temperature 99.7 F H Pulse Rate 131 H 87 107 H Respiratory Rate 20 12 17 Blood Pressure 157/86 H 149/90 H 159/90 H Pulse Oximetry 100 100 100 09/03/18 13:00 09/03/18 13:30 09/03/18 14:00 Temperature Pulse Rate 105 H 94 H 109 H Respiratory Rate 12 12 15 Blood Pressure 151/93 H 143/89 H 152/89 H Pulse Oximetry 100 100 100 09/03/18 14:30 09/03/18 15:00 09/03/18 15:01 Temperature Pulse Rate 88 107 H 108 H Respiratory Rate 14 17 13 Blood Pressure 132/83 141/66 H 141/66 H Pulse Oximetry 100 100 09/03/18 15:30 09/03/18 15:52 09/03/18 16:00 Temperature 99.1 F Pulse Rate 73 109 H 111 H Respiratory Rate 17 18 19 Blood Pressure 135/80 132/63 121/67 Pulse Oximetry 100 92 L 100 09/03/18 16:24 09/03/18 16:30 09/03/18 16:47 Temperature Pulse Rate 99 H 75 80 Respiratory Rate 13 15 13 Blood Pressure 140/65 137/70 Pulse Oximetry 100 100 09/03/18 17:00 09/03/18 17:30 09/03/18 17:43 Temperature Pulse Rate 73 66 Respiratory Rate 12 12 12 Blood Pressure 137/80 148/76 H Pulse Oximetry 100 100 100 09/03/18 18:00 09/03/18 18:30 09/03/18 19:00 Temperature Pulse Rate 84 78 79 Respiratory Rate 16 18 17 Blood Pressure 142/81 H 134/76 119/68 Pulse Oximetry 100 100 100 09/03/18 19:30 09/03/18 20:00 09/03/18 20:30 Temperature 99.0 F Pulse Rate 70 68 74 Respiratory Rate 15 15 14 Blood Pressure 129/78 129/76 121/68 Pulse Oximetry 100 100 100 09/03/18 20:31 09/03/18 21:00 09/03/18 21:30 Temperature Pulse Rate 79 74 67 Respiratory Rate 16 14 16 Blood Pressure 102/63 106/64 Pulse Oximetry 100 100 100 09/03/18 22:00 09/03/18 22:30 09/03/18 23:00 Temperature Pulse Rate 67 68 71 Respiratory Rate 15 15 14 Blood Pressure 108/55 L 96/51 L 101/63 Pulse Oximetry 100 100 100 09/03/18 23:30 09/03/18 23:41 09/04/18 00:00 Temperature 98.2 F Pulse Rate 59 L 70 Respiratory Rate 15 16 17 Blood Pressure 123/71 103/64 Pulse Oximetry 100 100 100 09/04/18 00:45 09/04/18 01:00 09/04/18 01:30 Temperature Pulse Rate 66 64 68 Respiratory Rate 15 19 19 Blood Pressure 119/69 118/71 119/72 Pulse Oximetry 100 100 100 09/04/18 02:00 09/04/18 02:30 09/04/18 03:00 Temperature Pulse Rate 73 71 68 Respiratory Rate 12 15 16 Blood Pressure 129/75 102/59 L 99/59 L Pulse Oximetry 100 100 100 09/04/18 03:23 09/04/18 03:30 09/04/18 04:00 Temperature 99.5 F Pulse Rate 76 90 78 Respiratory Rate 12 15 16 Blood Pressure 109/75 105/59 L Pulse Oximetry 100 91 L 100 09/04/18 04:30 09/04/18 05:00 09/04/18 05:30 Temperature Pulse Rate 77 80 80 Respiratory Rate 17 17 19 Blood Pressure 106/64 109/64 117/67 Pulse Oximetry 100 97 100 09/04/18 05:59 09/04/18 06:00 09/04/18 07:47 Temperature Pulse Rate 79 76 Respiratory Rate 20 11 L Blood Pressure 109/64 Pulse Oximetry 100 100 Intake & Output 09/03/18 09/04/18 09/04/18 18:59 06:59 18:59 Intake Total 1940 / 1940 1400 / 1400 250 / 250 Output Total 2480 / 2480 1100 / 1100 Balance -540 / -540 300 / 300 250 / 250 Weight 60.8 kg Intake: IV 1640 / 1640 1300 / 1300 250 / 250 Diprivan 1000 mg/100 ml Inj 1, 90 / 90 300 / 300 000 mg In 100 ml @ 5 MCG/KG/MIN 1.769 mls/hr IV.CONT TITRATE [facility]N Rx#:[id number] NS Inj 1,000 ML @ 84 mls/hr IV. 800 / 800 1000 / 1000 CONT .[id number] [facility] Rx#:[id number] Privigen Inj 25 GM In Bag/ 250 / 250 250 / 250 Syringe 1 EACH @ 31.25 mls/hr IV.SIG Q24H [facility] Rx#:[id number] NS Inj 500 ML @ 500 mls/hr IV. 500 / 500 SIG Q24H [facility] Rx#:[id number] Tube Irrigant 300 / 300 100 / 100 Output: Urine 0 / 0 Urine Amount (Catheter) 2480 / 2480 1100 / 1100 Indwelling Urethral Catheter 1630 / 1630 1100 / 1100 Straight 850 / 850 Other: # Voids 0 # Bowel Movements 0 Narrative: just of vent can say hello eye closure very weak about 4-/5 ip nl - Urinary Catheter Management Indwelling Urethral Catheter Cath placed during this visit: yes, but has since been removed by the nurse Reason for continuing: Acute urinary retention Insertion date: 09/03/18 Insertion time: 15:30 Removal date: 09/03/18 Removal time: 12:00 Straight Cath placed during this visit: no Objective Laboratory Results - last 24 hr 09/03/18 09/03/18 09/03/18 11:24 13:00 17:24 Potassium 3.9 POC Glucose 108 104 09/03/18 09/04/18 23:28 05:14 Potassium POC Glucose 96 88 Review/Management - Review/Management Plan: imp high aspiration risk make sure she gets her mestinon full dose as per home may need dobhoff ivig day 3
--- NOTE | 2018-09-04 10:01 | P.PNCC ---
Subjective Subjective Remarks/Hospital Course: 09/03: No acute events overnight the patient remains mechanically ventilated per patient received the first dose of IVIG yesterday the patient is to receive the remaining doses over the next 4 days pyridostigmine initiated this a.m. On sedation vacation the patient is alert awake responding to commands.. Ledezma catheter reinserted secondary to urinary retention and there required use of pyridostigmine secondary to medical condition. Urine toxicity resulted back yesterday polysubstance abuse. The patient was initiated on CPAP trials, will continue on CPAP trials however the patient is noted to have significant bulbar weakness with noted eyelid lag, we will continue to closely monitor ,no plans for extubation at this time. Patient continually complaining of generalized pain, oxycodone increased to 10 mg every 6 hours as needed. Subjective 09/04: Patient was extubated and will monitor closely with every 6 hours forced vital capacity/MIP/mep. Noted significant bulbar weakness with lid lag bilaterally and facial droop. Difficulty swallowing noted currently. Complaining of headache. Objective Vital Signs / I&O: Vital Signs 09/03/18 10:00 09/03/18 10:30 09/03/18 11:00 Temperature Pulse Rate 89 89 94 H Respiratory Rate 12 12 12 Blood Pressure 139/82 134/89 144/84 H Pulse Oximetry 100 100 100 09/03/18 11:30 09/03/18 12:00 09/03/18 12:30 Temperature 99.7 F H Pulse Rate 131 H 87 107 H Respiratory Rate 20 12 17 Blood Pressure 157/86 H 149/90 H 159/90 H Pulse Oximetry 100 100 100 09/03/18 13:00 09/03/18 13:30 09/03/18 14:00 Temperature Pulse Rate 105 H 94 H 109 H Respiratory Rate 12 12 15 Blood Pressure 151/93 H 143/89 H 152/89 H Pulse Oximetry 100 100 100 09/03/18 14:30 09/03/18 15:00 09/03/18 15:01 Temperature Pulse Rate 88 107 H 108 H Respiratory Rate 14 17 13 Blood Pressure 132/83 141/66 H 141/66 H Pulse Oximetry 100 100 09/03/18 15:30 09/03/18 15:52 09/03/18 16:00 Temperature 99.1 F Pulse Rate 73 109 H 111 H Respiratory Rate 17 18 19 Blood Pressure 135/80 132/63 121/67 Pulse Oximetry 100 92 L 100 09/03/18 16:24 09/03/18 16:30 09/03/18 16:47 Temperature Pulse Rate 99 H 75 80 Respiratory Rate 13 15 13 Blood Pressure 140/65 137/70 Pulse Oximetry 100 100 09/03/18 17:00 09/03/18 17:30 09/03/18 17:43 Temperature Pulse Rate 73 66 Respiratory Rate 12 12 12 Blood Pressure 137/80 148/76 H Pulse Oximetry 100 100 100 09/03/18 18:00 09/03/18 18:30 09/03/18 19:00 Temperature Pulse Rate 84 78 79 Respiratory Rate 16 18 17 Blood Pressure 142/81 H 134/76 119/68 Pulse Oximetry 100 100 100 09/03/18 19:30 09/03/18 20:00 09/03/18 20:30 Temperature 99.0 F Pulse Rate 70 68 74 Respiratory Rate 15 15 14 Blood Pressure 129/78 129/76 121/68 Pulse Oximetry 100 100 100 09/03/18 20:31 09/03/18 21:00 09/03/18 21:30 Temperature Pulse Rate 79 74 67 Respiratory Rate 16 14 16 Blood Pressure 102/63 106/64 Pulse Oximetry 100 100 100 09/03/18 22:00 09/03/18 22:30 09/03/18 23:00 Temperature Pulse Rate 67 68 71 Respiratory Rate 15 15 14 Blood Pressure 108/55 L 96/51 L 101/63 Pulse Oximetry 100 100 100 09/03/18 23:30 09/03/18 23:41 09/04/18 00:00 Temperature 98.2 F Pulse Rate 59 L 70 Respiratory Rate 15 16 17 Blood Pressure 123/71 103/64 Pulse Oximetry 100 100 100 09/04/18 00:45 09/04/18 01:00 09/04/18 01:30 Temperature Pulse Rate 66 64 68 Respiratory Rate 15 19 19 Blood Pressure 119/69 118/71 119/72 Pulse Oximetry 100 100 100 09/04/18 02:00 09/04/18 02:30 09/04/18 03:00 Temperature Pulse Rate 73 71 68 Respiratory Rate 12 15 16 Blood Pressure 129/75 102/59 L 99/59 L Pulse Oximetry 100 100 100 09/04/18 03:23 09/04/18 03:30 09/04/18 04:00 Temperature 99.5 F Pulse Rate 76 90 78 Respiratory Rate 12 15 16 Blood Pressure 109/75 105/59 L Pulse Oximetry 100 91 L 100 09/04/18 04:30 09/04/18 05:00 09/04/18 05:30 Temperature Pulse Rate 77 80 80 Respiratory Rate 17 17 19 Blood Pressure 106/64 109/64 117/67 Pulse Oximetry 100 97 100 09/04/18 05:59 09/04/18 06:00 09/04/18 07:47 Temperature Pulse Rate 79 76 Respiratory Rate 20 11 L Blood Pressure 109/64 Pulse Oximetry 100 100 Intake & Output 09/03/18 09/04/18 09/04/18 18:59 06:59 18:59 Intake Total 1940 / 1940 1400 / 1400 250 / 250 Output Total 2480 / 2480 1100 / 1100 Balance -540 / -540 300 / 300 250 / 250 Weight 60.8 kg Intake: IV 1640 / 1640 1300 / 1300 250 / 250 Diprivan 1000 mg/100 ml Inj 1, 90 / 90 300 / 300 000 mg In 100 ml @ 5 MCG/KG/MIN 1.769 mls/hr IV.CONT TITRATE PRN Rx#:[id number] NS Inj 1,000 ML @ 84 mls/hr IV. 800 / 800 1000 / 1000 CONT .[id number] COUNT INCLUDES THE [facility] Rx#:[id number] Privigen Inj 25 GM In Bag/ 250 / 250 250 / 250 Syringe 1 EACH @ 31.25 mls/hr IV.SIG Q24H ASHOK Rx#:[id number] NS Inj 500 ML @ 500 mls/hr IV. 500 / 500 SIG Q24H COUNT INCLUDES THE [facility] Rx#:[id number] Tube Irrigant 300 / 300 100 / 100 Output: Urine 0 / 0 Urine Amount (Catheter) 2480 / 2480 1100 / 1100 Indwelling Urethral Catheter 1630 / 1630 1100 / 1100 Straight 850 / 850 Other: # Voids 0 # Bowel Movements 0 Result Diagrams: 09/04/18 10:19 09/04/18 10:19 Imaging: Chest X-Ray 09/02/18 11:48 CONCLUSION: 1. No acute abnormality or significant interval change. Chest X-Ray 09/02/18 14:12 CONCLUSION: Satisfactory support line and tube positioning. Mild left base parenchymal opacity. Face CT 09/02/18 14:20 CONCLUSION: No evidence of acute fracture. Thoracic Aorta CT 09/02/18 14:20 CONCLUSION: 1. Normal thoracic and abdominal aorta 2. Pleural-based airspace disease in both lower lobes. 3. Complex right ovarian cyst. 4. Small amount of free fluid in the cul-de-sac. 5. No evidence of suspicious mass or lymphadenopathy. Chest CTA 09/02/18 14:29 CONCLUSION: 1. No evidence of pulmonary embolism. 2. Areas of atelectasis or mild consolidation posterior lower lobes. Chest X-Ray 09/03/18 04:00 CONCLUSION: Minimal basilar airspace disease, stable. No effusion or pneumothorax. Support apparatus unchanged. Objective Remarks: GENERAL: Chronically ill-appearing young lady. Noted bilateral eyelid lag, soft voice but able to's beak appropriate. Currently on nasal cannula no acute distress SKIN: Warm and dry. HEAD: Atraumatic. Normocephalic. EYES: Pupils equal and round. No scleral icterus. No injection or drainage. Noted lateral lid lag ENT: No nasal bleeding or discharge. Mucous membranes pink and moist. NECK: Trachea midline. No JVD. CARDIOVASCULAR: Normal rate, regular rhythm. S1, S2. No S4. RESPIRATORY: No accessory muscle use. Clear to auscultation. Breath sounds equal bilaterally. GASTROINTESTINAL: Abdomen soft, non-tender, nondistended. No guarding. MUSCULOSKELETAL: Extremities without clubbing, cyanosis, or edema. No obvious deformities. NEUROLOGICAL: Awake and alert. Moves all 4 extremities 3.5 to 4 out of 5 bilateral upper and lower. Sensation appears intact. Assessment and Plan - Assessment and Plan Plan: Neurologic: Myasthenia gravis exacerbation Migraine headache Chronic opioid use History of substance abuse including cocaine and cannabinoids Chronic benzodiazepine use Neuro checks per ICU Resume home medications when clinically indicated-which include clonazepam 0.5 mg twice daily. Patient states she is no longer taking mirtazapine or paroxetine Hold gabapentin as this can exacerbate myasthenia gravis Neurology consulted-Dr. Dover following Continue IVIG dosing-25 g daily for a total of 125 g TSH 0.598 Increase oxycodone 10 mg every 6 hours as needed for pain scale 8-10 Continue home medication prednisone 10 mg/day Pyridostigmine 120 mg 4 times daily Imitrex as needed for migraine headaches Urine toxicity noted positive for cocaine and cannabinoids Respiratory: Acute hypoxemic respiratory failure secondary to myasthenia gravis exacerbation nasal cannula to maintain saturations greater than equal to 92% Incentive spirometry while awake Albuterol/ipratropium aerosols every 4 hours with albuterol aerosols every 2 hours as needed dyspnea Every 6 hours forced vital capacity >20ml/kg/NIP >[id number] MEP >[id number] 09/02 CT angiogram pulmonary negative for pulmonary embolus Cardiovascular: Maintain map greater than 65 Currently on normal saline at 84 cc an hour. Not requiring antihypertensives and/or vasopressors /renal: applied purewick catheter -- Strict I/Os FEN/GI: Monitor BMP Normal saline 84 cc/hr Maintain n.p.o. status for now Pantoprazole for GI prophylaxis Docusate sodium/senna 1 tablet twice daily for bowel regimen Heme/ID: Monitor CBC currently within normal limits. Obtain cultures if clinically indicated Endocrine: Glucose monitoring per ICU -- SSI Prophylaxis: GI Prophylaxis Pantoprazole DVT Prophylaxis -- SCDs/enoxaparin Lines: Peripheral IVs x2 Level 3 follow-up Patient desaturated with shallow breathing. Reintubated. See note. Chest x- ray pending.
[2018-09-04 10:29] LABS: Baso % (Auto) 0.3 % (0.0-2.0); Eos # (Auto) 0.1 th/mm3 (0.0-0.4); Eos % (Auto) 0.7 % (0.0-4.0); Hematocrit 33.4 % (35.0-46.0); Hemoglobin 11.4 gm/dL (11.6-15.3); Lymph # (Auto) 0.6 th/mm3 (1.0-4.8); Lymph % (Auto) 4.3 % (9.0-44.0); Mean Corpuscular Hemoglobin 31.6 pg (27.0-34.0); Mean Corpuscular Volume 92.9 fL (80.0-100.0); Mean Platelet Volume 8.5 fL (7.0-11.0); Mono # (Auto) 0.7 th/mm3 (0.0-0.9); Mono % (Auto) 4.5 % (0.0-8.0); Neut # (Auto) 13.3 th/mm3 (1.8-7.7); Neut % (Auto) 90.2 % (16.0-70.0); Platelet Count 251 th/mm3 (150-450); Red Blood Count 3.59 mil/mm3 (4.00-5.30); Red Cell Distribution Width 15.1 % (11.6-17.2); White Blood Count 14.7 th/mm3 (4.0-11.0)
[2018-09-04 10:54] LABS: Anion Gap 0 meq/L (5-15); Blood Urea Nitrogen 4 mg/dL (7-18); Calcium 7.9 mg/dL (8.5-10.1); Chloride 116 meq/L (98-107); Glomerular Filtration Rate Greater Than 89 mL/min (>89); Glucose,Random 79 mg/dL (74-106); Magnesium 1.6 mg/dL (1.5-2.5); Phosphorus 2.4 mg/dL (2.5-4.9); Potassium 3.2 meq/L (3.5-5.1); Sodium 139 meq/L (136-145)
[2018-09-04] MEDS ORDERED: Pyridostigmine Bromide 60 MG Tablet PO SCH (11:00)
[2018-09-04] MEDS ORDERED: Etomidate Inj 40 MG/20 ML Vial IV.PUSH ONE (11:08)
--- NOTE | 2018-09-04 11:26 | P.PCN ---
Date of procedure: 09/04/18 Pre-op diagnosis: Respiratory failure Post-op diagnosis: same Procedure: DATE: 09/04/2018 PROCEDURE: Orotracheal intubation INDICATION: Acute respiratory failure DETAILS OF PROCEDURE The patient was placed in optimal position and preoxygenated with 100% FiO2 via bag valve mask. At the start oxygen saturation was 100%. The patient was administered 20 milligrams etomidate IV and 50 milligrams rocuronium IV. I entered the oropharynx with a size 4 laryngoscope blade and obtained a grade 2 view of the airway. On single attempt a 8.0 size cuffed endotracheal tube was passed through the vocal cords. Correct tube location was confirmed with end tidal CO2 detector and by auscultating over bilateral lung torres. The endotracheal tube was secured with adhesive tape at a depth of 23 cm at the lips. The patient was connected to the ventilator. The patient tolerated the procedure well without any apparent complications. Oxygen saturations were maintained greater than 95% all times. STAT chest x-ray at time of dictation.
--- NOTE | 2018-09-04 11:59 | P.DIET ---
Nutritional Evaluation Type of nutrition evaluation: initial Nutrition consult regarding: Tube Feeding Objective - Diagnosis Myasthenia gravis exacerbation - Objective % IBW: 106 (IBW: 56.8kg) Body Weight Used for Calculations: Actual (60.2kg) Energy Needs - Lower Range (kCal/kg): 25 Energy Needs - Upper Range (kCal/kg): 30 Lower Limit kCal/kg (kCals): 1,505 Upper Limit kCal/kg (kCals): 1,806 Lower Limit Protein Factor (Grams per Kg): 1.2 Upper Limit Protein Factor (Grams per Kg): 1.5 Lower Protein Needs (Protein): 72 Upper Protein Needs (Protein): 90 Dietitian Reviewed in Medical Record: Current diet, Curent medications, Intake & Output, Labs, Medical history, Tube feeding Diet Order: TF only Objective Comments: Labs of note: WBC 14.7, K+ 3.2, Ca 7.9, Phos 2.4, Cl 116 PMH: myasthenia gravis, anxiety, depression Meds include propofol Assessment Assessment: Pt at nutritional risk r/t current clinical status and need for a TF for nutrition support. Pt extubated earlier today but just recently reintubated and sedated on propofol. Pt's nutritional needs as assessed above. Per MD, TF Vital 1.5 with goal rate 45ml/hr. This provides 1620kcals, 73gms protein and 825mls free water which is adequate to meet pt's nutritional needs at this time. Propofol adds kcals when running. Will monitor TF tolerance, clinical course. Recommendations: TF Vital 1.5 with goal rate 45ml/hr
--- NOTE | 2018-09-04 12:19 | XR ---
EXAM DATE: 09/04/2018 12:12 PM EST AGE/SEX: 43 years / Female INDICATIONS: Post intubation. Post NGT placement. CLINICAL DATA: This is the patient's initial encounter. Patient reports that signs and symptoms have been present for 1 day and indicates a pain score of Nonresponsive. MEDICAL/SURGICAL HISTORY: . DDD, Myasthenia Gravis flare up. . Tubal ligation. hip replacement COMPARISON: [facility], CHEST 1V SINGLE AP, 09/03/2018. . FINDINGS: ETT approximately 2.5 cm above the brenton. NGT coursing beyond the GE junction with tip omitted from the image. Left subclavian [id number] in stable position. Interval development of hazy left lower lobe opacity. Cardiomediastinal contours are within normal limits. Remainder of the exam is unchanged . CONCLUSION: 1. ETT in good position. NGT beyond the GE junction. 2. Small left pleural effusion and associated left lower lung zone airspace disease. Electronically signed by: Robbie Cho MD 09/04/2018 12:17 PM EST
--- NOTE | 2018-09-04 12:20 | XR ---
EXAM DATE: 09/04/2018 12:13 PM EST AGE/SEX: 43 years / Female INDICATIONS: Dobhoff placement. CLINICAL DATA: This is the patient's initial encounter. Patient reports that signs and symptoms have been present for 1 day and indicates a pain score of 5/10. MEDICAL/SURGICAL HISTORY: . Myasthenia Gravis flare up. DDD. Tubal ligation. Hip replacement. COMPARISON: [facility], CTA THOR ABD AORTA W CONTRAST W 3D, 09/02/2018. . FINDINGS: Dobbhoff tube is coiled in the stomach with tip in the distal body. There is a nonobstructive bowel gas pattern. No gross free air or pneumatosis. Osseous structures are intact. CONCLUSION: 1. Dobbhoff tube is coiled in the stomach with tip in the distal body of the stomach. Electronically signed by: Robbie Cho MD 09/04/2018 12:18 PM EST
[2018-09-04] MEDS: Pantoprazole Inj 40 MG Vial IV.PUSH SCH (12:22)
[2018-09-04] MEDS: Oral Hygiene Kit OROPHARYNG SCH ×3 (12:23→23:42)
[2018-09-04] MEDS ORDERED: PAROXETINE HCL PO SCH (13:00)
[2018-09-04] MEDS: Acetaminophen 325 MG Tablet PO SCH (13:16)
[2018-09-04] MEDS: Sodium Chlor 0.9% Inj 500 ML IV.SIG SCH (13:17)
[2018-09-04] MEDS: Artificial Tears Opth Drops 15 ML Bottle EACH EYE SCH ×2 (13:17→21:15)
[2018-09-04 13:23] LABS: ABG Base Excess -4.1 mmol/L (-2-2); ABG PCO2 35 mmHg (38-42); ABG PO2 113 mmHG (61-120)
[2018-09-04] MEDS: IVIG (Immune Globulin) Inj 25 GM in Syringe/Bag 1 EACH IV.SIG SCH (14:31)
[2018-09-04] MEDS: Enoxaparin Inj 30 MG/0.3 ML Syringe SQ SCH (15:33)
[2018-09-04] MEDS: clonazePAM 0.5 MG Tablet PO SCH ×2 (16:15→19:00)
[2018-09-04] MEDS: fentaNYL 10 mcg/mL Premix Drip 2,500 MCG/250 ML BAG IV.SIG PRN ×2 (16:24→21:18)
[2018-09-04 18:25] LABS: Amorphous Sediment,Urine Rare /hpf; Bacteria,Urine Few /hpf; Bilirubin,Urine Negative (Negative); Clarity,Urine Hazy (Clear); Color,Urine Yellow (Yellw/Straw); Glucose,Urine (UA) Negative (Negative); Leukocyte Esterase,Urine Small (Negative); Mucus,Urine Few /lpf (Occasional); Nitrite,Urine Positive (Negative); Specific Gravity,Urine 1.014 (1.002-1.035)
[2018-09-04] MEDS: Chlorhexidine 0.12% Oral Kit 15 ML UDC OROPHARYNG SCH (21:15)
[2018-09-04] MEDS: Acetaminophen 325 MG Tablet PO PRN (21:16)
[2018-09-05] MEDS: Oral Hygiene Kit OROPHARYNG SCH ×3 (04:32→16:12)
[2018-09-05] MEDS: Propofol 1000 mg/100 ml Inj 1,000 MG/100 ML BOTTLE IV.CONT PRN (04:32)
[2018-09-05] MEDS: Chlorhexidine Gluconate 2% 1 Pack (2 Cloths) TOPICAL SCH (04:32)
[2018-09-05] MEDS: Pyridostigmine Bromide 60 MG Tablet PO SCH ×4 (04:32→23:12)
[2018-09-05] MEDS: Artificial Tears Opth Drops 15 ML Bottle EACH EYE SCH ×3 (04:32→20:46)
[2018-09-05] MEDS: Sod Chloride 0.9% Inj 1,000 ML IV.CONT SCH (05:28)
[2018-09-05 05:45] LABS: Baso # (Auto) 0.1 th/mm3 (0.0-0.2); Baso % (Auto) 0.5 % (0.0-2.0); Eos # (Auto) 0.2 th/mm3 (0.0-0.4); Eos % (Auto) 1.2 % (0.0-4.0); Hematocrit 29.9 % (35.0-46.0); Hemoglobin 9.8 gm/dL (11.6-15.3); Lymph # (Auto) 1.1 th/mm3 (1.0-4.8); Lymph % (Auto) 7.3 % (9.0-44.0); Mean Corpuscular HGB Conc 32.9 % (32.0-36.0); Mean Corpuscular Hemoglobin 30.4 pg (27.0-34.0); Mean Corpuscular Volume 92.5 fL (80.0-100.0); Mean Platelet Volume 9.5 fL (7.0-11.0); Mono # (Auto) 0.7 th/mm3 (0.0-0.9); Mono % (Auto) 4.6 % (0.0-8.0); Neut # (Auto) 13.6 th/mm3 (1.8-7.7); Neut % (Auto) 86.4 % (16.0-70.0); Platelet Count 240 th/mm3 (150-450); Red Blood Count 3.23 mil/mm3 (4.00-5.30); Red Cell Distribution Width 14.6 % (11.6-17.2); White Blood Count 15.7 th/mm3 (4.0-11.0)
[2018-09-05 06:06] LABS: Alanine Aminotransferase 8 U/L (10-53); Albumin 2.2 g/dL (3.4-5.0); Alkaline Phosphatase 51 U/L (45-117); Anion Gap 0 meq/L (5-15); Aspartate Aminotransferase 11 U/L (15-37); Blood Urea Nitrogen 7 mg/dL (7-18); Calcium 7.8 mg/dL (8.5-10.1); Carbon Dioxide 24.8 meq/L (21.0-32.0); Chloride 113 meq/L (98-107); Glomerular Filtration Rate Greater Than 89 mL/min (>89); Glucose,Random 76 mg/dL (74-106); Magnesium 1.5 mg/dL (1.5-2.5); Phosphorus 1.5 mg/dL (2.5-4.9); Sodium 138 meq/L (136-145); Total Protein 7.5 g/dL (6.4-8.2)
[2018-09-05 06:09] LABS: Potassium 2.8 meq/L (3.5-5.1)
--- NOTE | 2018-09-05 07:39 | P.PNNEU ---
Subjective Active Medications: Active Medications Acetaminophen (Tylenol) 650 mg PO Q6H PRN PRN Reason: PAIN 1-5 AND/OR FEVER >101F Last Admin: 09/04/18 21:16 Dose: 650 mg Acetaminophen (Tylenol) 650 mg PO Q24H [facility] Stop: 09/06/18 14:01 Last Admin: 09/04/18 13:16 Dose: 650 mg Al Hydroxide/Mg Hydroxide (Milk Of Magnrashard Liq) 30 ml PO Q12H PRN PRN Reason: Mild Constipation Albuterol (Albuterol Neb (Prn)) 2.5 mg NEB Q2HR NEB PRN PRN Reason: SHORTNESS OF BREATH/WHEEZING Albuterol (Duoneb Neb (Gómez)) 1 ampul NEB Q4HR NEB [facility] Last Admin: 09/05/18 03:35 Dose: 1 ampul Artificial Tears (Tears Naturale Opth Drops) 1 drop EACH EYE Q8H [facility] Last Admin: 09/05/18 04:32 Dose: 1 drop Bisacodyl (Dulcolax Supp) 10 mg RECTAL DAILY PRN PRN Reason: SEVERE CONSITIPATION Chlorhexidine Gluconate (Chlorhexidine 2% Cloth) 3 pack TOPICAL DAILY@0400 [facility] Stop: 09/08/18 03:59 Last Admin: 09/05/18 04:32 Dose: Not Given Chlorhexidine Gluconate (Chlorhexidine 2% Cloth) 3 pack TOPICAL DAILY@0400 PRN PRN Reason: Extra cloth needed Stop: 09/08/18 03:59 Chlorhexidine Gluconate (Peridex 0.12% Oral Kit) 15 ml OROPHARYNG BID@0800, 2000 [facility] Last Admin: 09/04/18 21:15 Dose: 15 ml Clonazepam (Klonopin) 0.5 mg PO TID [facility] Last Admin: 09/04/18 19:00 Dose: 0.5 mg Diphenhydramine HCl (Benadryl Inj) 50 mg IV.PUSH PRN PRN PRN Reason: ALLERGIC REACTION Stop: 09/07/18 13:59 Diphenhydramine HCl (Benadryl) 25 mg PO Q24H [facility] Stop: 09/06/18 14:01 Last Admin: 09/04/18 13:17 Dose: 25 mg Enoxaparin Sodium (Lovenox Inj) 30 mg SQ Q24H [facility] Last Admin: 09/04/18 15:33 Dose: 30 mg Epinephrine HCl (Epinephrine (1:1000) Inj) 0.3 mg OTHER Q10M PRN PRN Reason: Anaphylactic Reaction Stop: 09/07/18 13:59 Magnesium Sulfate 4 gm/ Sodium (Chloride) 100 mls @ 50 mls/hr IV.SIG UNSCH PRN PRN Reason: For Magnesium 0.9 - 1.1 mg/dL Magnesium Sulfate 2 gm/ Sodium (Chloride) 100 mls @ 50 mls/hr IV.SIG UNSCH PRN PRN Reason: For Magnesium 1.2 - 1.6 mg/dL Sodium Chloride (Ns Inj) 1,000 mls @ 84 mls/hr IV.CONT .[id number] GÓMEZ Last Admin: 09/05/18 05:28 Dose: 84 mls/hr Potassium Chloride (Kcl 20 Meq Premix Inj) 20 meq in 100 mls @ 50 mls/hr IV.SIG Q2H PRN PRN Reason: For Potassium 3.3 - 3.5 mEq/L Potassium Chloride (Kcl 40 Meq Premix Inj) 40 meq in 100 mls @ 25 mls/hr IV.SIG UNSCH PRN PRN Reason: For Potassium 3.3 - 3.5 mEq/L Potassium Chloride (Kcl 20 Meq Premix Inj) 20 meq in 100 mls @ 50 mls/hr IV.SIG Q2H PRN PRN Reason: For Potassium 2.8 - 3.2 mEq/L Potassium Phosphate 30 mmol/ (Sodium Chloride) 260 mls @ 42 mls/hr IV.SIG UNSCH PRN PRN Reason: SEE LABEL COMMENTS Sodium Phosphate 30 mmol/ (Sodium Chloride) 260 mls @ 42 mls/hr IV.SIG UNSCH PRN PRN Reason: For Phosphorus < 2.5 mg/dL Potassium Chloride (Kcl 40 Meq Premix Inj) 40 meq in 100 mls @ 25 mls/hr IV.SIG Q2H PRN PRN Reason: For Potassium 2.8 - 3.2 mEq/L Immune Globulin 25 gm/ (Miscellaneous Medication) 250 mls @ 31.25 mls/hr IV.SIG Q24H GÓMEZ; Protocol Stop: 09/06/18 21:59 Last Admin: 09/04/18 14:31 Dose: 31.25 mls/hr Dextrose (D5w Inj) 500 mls @ 30 mls/hr OTHER Q24H [facility] Stop: 09/07/18 06:39 Last Admin: 09/04/18 14:32 Dose: 30 mls/hr Sodium Chloride (Ns Inj) 500 mls @ 500 mls/hr IV.SIG Q24H [facility] Stop: 09/06/18 14:59 Last Infusion: 09/04/18 16:29 Dose: Infused Propofol (Diprivan 1000 Mg/100 Ml Inj) 1,000 mg in 100 mls @ 1.824 mls/hr IV.CONT TITRATE PRN; Protocol PRN Reason: Per Protocol Last Admin: 09/05/18 04:32 Dose: 50 mcg/kg/min, 18.24 mls/hr Fentanyl (Fentanyl 10 Mcg/Ml Premix Drip) 2,500 mcg in 250 mls @ 5 mls/hr IV.SIG TITRATE PRN; Protocol PRN Reason: Per Protocol Last Admin: 09/04/18 21:18 Dose: 50 mcg/hr, 5 mls/hr Lactulose (Lactulose Liq) 30 ml PO DAILY PRN PRN Reason: SEVERE CONSITIPATION Magnesium Oxide (Mag-Ox) 800 mg PO UNSCH PRN PRN Reason: For Magnesium 1.2 - 1.6 mg/dL Miscellaneous Medication () 1 each OROPHARYNG 0000,0400,1200,1600 [facility] Last Admin: 09/05/18 04:32 Dose: 1 each Ondansetron HCl (Zofran Inj) 4 mg IV.PUSH Q6H PRN PRN Reason: NAUSEA OR VOMITING Last Admin: 09/05/18 06:49 Dose: 4 mg Oxycodone HCl (Roxicodone Intensol Liq) 10 mg PO Q6H PRN PRN Reason: PAIN SCALE 6 TO 10 Last Admin: 09/05/18 04:33 Dose: 10 mg Pantoprazole Sodium (Protonix Inj) 40 mg IV.PUSH DAILY GÓMEZ Last Admin: 09/04/18 12:22 Dose: 40 mg Potassium Bicarb/Potassium Chloride (K-Lyte Cl Eff) 50 meq PO UNSCH PRN PRN Reason: For Potassium 3.3 - 3.5 mEq/L Last Admin: 09/03/18 08:26 Dose: 50 meq Potassium Phosphate (K-Phos Original) 2,000 mg PO Q4H PRN PRN Reason: Phosphorus Less Than 2.5 mg/dL Potassium Phosphate (K-Phos Original) 2,000 mg PO UNSCH PRN PRN Reason: SEE LABEL COMMENTS Prednisone (Deltasone Liq) 60 mg PO DAILY [facility] Pyridostigmine [place] (Mestinon) 120 mg PO Q6H [facility] Last Admin: 09/05/18 04:32 Dose: 120 mg Senna/Docusate Sodium (Bonita-Colace) 1 tab PO BID [facility] Last Admin: 09/04/18 21:15 Dose: 1 tab Sennosides (Senokot) 17.2 mg PO Q12H PRN PRN Reason: Moderate Constipation Sodium Chloride (Ns Flush) 2 ml IV.FLUSH BID [facility] Last Admin: 09/04/18 21:15 Dose: 2 ml Sodium Chloride (Ns Flush) 2 ml IV.FLUSH PRN PRN PRN Reason: FLUSH AFTER USING IV ACCESS Last Admin: 09/04/18 09:36 Dose: 2 ml Sumatriptan Succinate (Imitrex) 50 mg PO Q4H PRN PRN Reason: HEADACHE PAIN Last Admin: 09/05/18 05:28 Dose: 50 mg Allergies/Adverse Reactions: Allergies Allergy/AdvReac Type Severity Reaction Status Date / Time penicillin G Allergy Severe Anaphylaxis Verified 09/02/18 12:30 promethazine AdvReac Severe NAUSEOUS Verified 09/02/18 12:30 Physical Exam Vital signs: Vital Signs 09/04/18 07:47 09/04/18 08:00 09/04/18 08:30 Temperature 98.4 F Pulse Rate 76 83 85 Respiratory Rate 11 L 14 15 Blood Pressure 113/64 111/70 Pulse Oximetry 100 100 100 09/04/18 09:00 09/04/18 09:30 09/04/18 10:00 Temperature Pulse Rate 86 87 92 H Respiratory Rate 14 23 27 H Blood Pressure 115/65 118/73 123/60 Pulse Oximetry 100 95 94 L 09/04/18 10:30 09/04/18 11:00 09/04/18 11:08 Temperature Pulse Rate 112 H 130 H 103 H Respiratory Rate 27 H 46 H 48 H Blood Pressure 133/65 150/94 H 167/100 H Pulse Oximetry 94 L 90 L 71 L 09/04/18 11:10 09/04/18 11:13 11/25/18 11:15 Temperature Pulse Rate 83 115 H 105 H Respiratory Rate 47 H 19 18 Blood Pressure 195/96 H 160/74 H 136/60 Pulse Oximetry 67 L 100 99 09/04/18 11:17 09/04/18 11:20 09/04/18 11:22 Temperature Pulse Rate 101 H 132 H 122 H Respiratory Rate 18 21 18 Blood Pressure 133/60 142/65 H 151/66 H Pulse Oximetry 100 100 100 09/04/18 11:25 09/04/18 11:27 09/04/18 11:30 Temperature Pulse Rate 108 H 105 H 102 H Respiratory Rate 19 18 18 Blood Pressure 139/65 137/70 135/71 Pulse Oximetry 99 98 96 09/04/18 11:32 09/04/18 11:35 09/04/18 12:00 Temperature 99.8 F H Pulse Rate 100 H 97 H 98 H Respiratory Rate 18 18 18 Blood Pressure 133/67 131/67 124/58 L Pulse Oximetry 96 97 96 09/04/18 12:30 09/04/18 13:00 09/04/18 13:30 Temperature Pulse Rate 114 H 88 81 Respiratory Rate 16 16 16 Blood Pressure 139/84 126/70 120/71 Pulse Oximetry 92 L 95 99 09/04/18 14:00 09/04/18 14:30 09/04/18 14:31 Temperature Pulse Rate 80 81 56 L Respiratory Rate 16 16 16 Blood Pressure 122/64 125/64 125/64 Pulse Oximetry 100 99 09/04/18 15:00 09/04/18 15:15 09/04/18 15:31 Temperature Pulse Rate 91 H 101 H 121 H Respiratory Rate 16 16 24 Blood Pressure 116/64 155/83 H Pulse Oximetry 98 96 97 09/04/18 16:00 09/04/18 16:30 09/04/18 17:00 Temperature 100.8 F H Pulse Rate 104 H 108 H 101 H Respiratory Rate 16 16 16 Blood Pressure 117/63 108/73 101/59 L Pulse Oximetry 95 99 98 09/04/18 17:30 09/04/18 18:00 09/04/18 18:30 Temperature Pulse Rate 97 H 112 H 96 H Respiratory Rate 16 23 16 Blood Pressure 98/56 L 103/59 L 93/56 L Pulse Oximetry 99 99 100 09/04/18 19:00 09/04/18 19:30 09/04/18 20:00 Temperature 100.7 F H Pulse Rate 96 H 86 102 H Respiratory Rate 18 16 23 Blood Pressure 98/60 L 100/64 99/64 L Pulse Oximetry 100 100 88 L 09/04/18 20:02 09/04/18 20:30 09/04/18 21:00 Temperature Pulse Rate 98 H 109 H 104 H Respiratory Rate 16 17 24 Blood Pressure 90/51 L 95/51 L Pulse Oximetry 100 94 L 92 L 09/04/18 21:19 09/04/18 21:31 09/04/18 22:00 Temperature Pulse Rate 102 H 81 Respiratory Rate 16 29 H 16 Blood Pressure 91/55 L 89/54 L Pulse Oximetry 85 L 100 09/04/18 22:30 09/04/18 23:00 09/04/18 23:30 Temperature Pulse Rate 70 66 78 Respiratory Rate 17 16 31 H Blood Pressure 89/55 L 90/54 L 96/54 L Pulse Oximetry 99 100 94 L 09/04/18 23:41 09/04/18 23:46 09/04/18 23:48 Temperature Pulse Rate 77 89 Respiratory Rate 16 35 H 16 Blood Pressure 92/51 L 106/64 Pulse Oximetry 89 L 98 09/05/18 00:00 09/05/18 03:36 09/05/18 03:41 Temperature 100.1 F H Pulse Rate 74 84 Respiratory Rate 16 19 16 Blood Pressure 96/51 L Pulse Oximetry 100 98 Intake & Output 09/04/18 09/05/18 09/05/18 18:59 06:59 18:59 Intake Total 2170 / 2170 1450 / 1450 Output Total 1300 / 1300 Balance 870 / 870 1450 / 1450 Intake: IV 2170 / 2170 1450 / 1450 Diprivan 1000 mg/100 ml Inj 1, 170 / 170 200 / 200 000 mg In 100 ml @ 5 MCG/KG/MIN 1.824 mls/hr IV.CONT TITRATE PRN Rx#:[id number] NS Inj 1,000 ML @ 84 mls/hr IV. 1000 / 1000 1000 / 1000 CONT .[id number] GÓMEZ Rx#:[id number] Privigen Inj 25 GM In Bag/ 250 / 250 Syringe 1 EACH @ 31.25 mls/hr IV.SIG Q24H GÓMEZ Rx#:[id number] NS Inj 500 ML @ 500 mls/hr IV. 500 / 500 SIG Q24H GÓMEZ Rx#:[id number] fentaNYL 10 mcg/mL Premix Drip 250 / 250 2,500 mcg In 250 ml @ 50 MCG/HR 5 mls/hr IV.SIG TITRATE PRN Rx #:[id number] D5W Inj 500 ML @ 30 mls/hr 250 / 250 OTHER Q24H GÓMEZ Rx#:[id number] Output: Urine Amount (Catheter) 1300 / 1300 Indwelling Urethral Catheter 1300 / 1300 Narrative: back on vent eye closure still weak and left ptosis this am - Urinary Catheter Management Indwelling Urethral Catheter Cath placed during this visit: yes, but has since been removed by the nurse Reason for continuing: Acute urinary retention Insertion date: 09/03/18 Insertion time: 15:30 Removal date: 09/03/18 Removal time: 12:00 Straight Cath placed during this visit: no Objective Laboratory Results - last 24 hr 09/04/18 09/04/18 09/04/18 10:19 10:19 12:13 WBC 14.7 H RBC 3.59 L Hgb 11.4 L Hct 33.4 L MCV 92.9 MCH 31.6 MCHC 34.0 RDW 15.1 Plt Count 251 MPV 8.5 Neut % (Auto) 90.2 H Lymph % (Auto) 4.3 L Dixon % (Auto) 4.5 Eos % (Auto) 0.7 Baso % (Auto) 0.3 Neut # (Auto) 13.3 H Lymph # (Auto) 0.6 L Dixon # (Auto) 0.7 Eos # (Auto) 0.1 Baso # (Auto) 0.0 WBC Differential . Differential Comment Auto diff final Puncture Site Patient Temperature O2 Saturation ABG pH ABG pCO2 ABG pO2 ABG HCO3 ABG O2 Content ABG Base Excess ABG Methemoglobin Srinivas Test Hemoglobin Carboxyhemoglobin O2 Delivery Device Vent Setting Inspired O2 Critical Value Sodium 139 Potassium 3.2 L Chloride 116 H Carbon Dioxide 23.0 Anion Gap 0 L BUN 4 L Creatinine 0.44 L Estimated GFR Greater than 89 POC Glucose 121 H Random Glucose 79 Calcium 7.9 L Phosphorus 2.4 L Magnesium 1.6 Total Bilirubin AST ALT Alkaline Phosphatase Total Protein Albumin Urine Color Urine Clarity Urine pH Ur Specific [place] Urine Protein Urine Glucose (UA) Urine Ketones Urine Occult Blood Urine Nitrate Urine Bilirubin Urine Urobilinogen Ur Leukocyte Esterase Urine RBC Urine WBC Amorphous Sediment Urine Bacteria Urine Mucus Micro UA Comment Ur Microscopic Review Urine Culture Comments 09/04/18 09/04/18 09/04/18 13:17 16:22 17:26 WBC RBC Hgb Hct MCV MCH MCHC RDW Plt Count MPV Neut % (Auto) Lymph % (Auto) Dixon % (Auto) Eos % (Auto) Baso % (Auto) Neut # (Auto) Lymph # (Auto) Dixon # (Auto) Eos # (Auto) Baso # (Auto) WBC Differential Differential Comment Puncture Site Right radial Patient Temperature 98.6 O2 Saturation 96 ABG pH 7.38 ABG pCO2 35 L ABG pO2 113 ABG HCO3 20 L ABG O2 Content 15.6 ABG Base Excess -4.1 L ABG Methemoglobin 1.6 Srinivas Test Present Hemoglobin 11.4 L Carboxyhemoglobin 0.7 O2 Delivery Device Ventilator Vent Setting Prvc/ac500/18/ Inspired O2 50 Critical Value No Sodium Potassium Chloride Carbon Dioxide Anion Gap BUN Creatinine Estimated GFR POC Glucose 115 H Random Glucose Calcium Phosphorus Magnesium Total Bilirubin AST ALT Alkaline Phosphatase Total Protein Albumin Urine Color Yellow Urine Clarity Hazy H Urine pH 5.0 Ur Specific [place] 1.014 Urine Protein Negative Urine Glucose (UA) Negative Urine Ketones 80 or greater H Urine Occult Blood Moderate H Urine Nitrate Positive H Urine Bilirubin Negative Urine Urobilinogen 2.0 H Ur Leukocyte Esterase Small H Urine RBC 3 Urine WBC 31 H Amorphous Sediment Rare H Urine Bacteria Few H Urine Mucus Few H Micro UA Comment Cath-culture ind Ur Microscopic Review Not Reportable Urine Culture Comments Cath-cult indicated 09/04/18 09/05/18 09/05/18 23:49 04:26 04:29 WBC 15.7 H RBC 3.23 L Hgb 9.8 L Hct 29.9 L MCV 92.5 MCH 30.4 MCHC 32.9 RDW 14.6 Plt Count 240 MPV 9.5 Neut % (Auto) 86.4 H Lymph % (Auto) 7.3 L Dixon % (Auto) 4.6 Eos % (Auto) 1.2 Baso % (Auto) 0.5 Neut # (Auto) 13.6 H Lymph # (Auto) 1.1 Dixon # (Auto) 0.7 Eos # (Auto) 0.2 Baso # (Auto) 0.1 WBC Differential . Differential Comment Auto diff final Puncture Site Patient Temperature O2 Saturation ABG pH ABG pCO2 ABG pO2 ABG HCO3 ABG O2 Content ABG Base Excess ABG Methemoglobin Srinivas Test Hemoglobin Carboxyhemoglobin O2 Delivery Device Vent Setting Inspired O2 Critical Value Sodium Potassium Chloride Carbon Dioxide Anion Gap BUN Creatinine Estimated GFR POC Glucose 87 106 Random Glucose Calcium Phosphorus Magnesium Total Bilirubin AST ALT Alkaline Phosphatase Total Protein Albumin Urine Color Urine Clarity Urine pH Ur Specific [place] Urine Protein Urine Glucose (UA) Urine Ketones Urine Occult Blood Urine Nitrate Urine Bilirubin Urine Urobilinogen Ur Leukocyte Esterase Urine RBC Urine WBC Amorphous Sediment Urine Bacteria Urine Mucus Micro UA Comment Ur Microscopic Review Urine Culture Comments 09/05/18 04:29 WBC RBC Hgb Hct MCV MCH MCHC RDW Plt Count MPV Neut % (Auto) Lymph % (Auto) [place] % (Auto) Eos % (Auto) Baso % (Auto) Neut # (Auto) Lymph # (Auto) Dixon # (Auto) Eos # (Auto) Baso # (Auto) WBC Differential Differential Comment Puncture Site Patient Temperature O2 Saturation ABG pH ABG pCO2 ABG pO2 ABG HCO3 ABG O2 Content ABG Base Excess ABG Methemoglobin Srinivas Test Hemoglobin Carboxyhemoglobin O2 Delivery Device Vent Setting Inspired O2 Critical Value Sodium 138 Potassium 2.8 L* Chloride 113 H Carbon Dioxide 24.8 Anion Gap 0 L BUN 7 Creatinine 0.53 Estimated GFR Greater than 89 POC Glucose Random Glucose 76 Calcium 7.8 L Phosphorus 1.5 L Magnesium 1.5 Total Bilirubin 0.3 AST 11 L ALT 8 L Alkaline Phosphatase 51 Total Protein 7.5 Albumin 2.2 L D Urine Color Urine Clarity Urine pH Ur Specific [place] Urine Protein Urine Glucose (UA) Urine Ketones Urine Occult Blood Urine Nitrate Urine Bilirubin Urine Urobilinogen Ur Leukocyte Esterase Urine RBC Urine WBC Amorphous Sediment Urine Bacteria Urine Mucus Micro UA Comment Ur Microscopic Review Urine Culture Comments Review/Management - Review/Management Plan: imp high aspiration risk make sure she gets her mestinon full dose as per home may need dobhoff ivig day 3 09/05/18 not getting any benefit from ivig so far inc pred to 60 a day mestinon 120 q 6 will consider new med out
[2018-09-05] MEDS ORDERED: predniSONE 10 MG Tablet PO SCH (09:00)
[2018-09-05] MEDS ORDERED: Mirtazapine 15 MG Tablet PO SCH (09:00)
[2018-09-05] MEDS: Potassium Phosphate Inj 30 MMOL in Sodium Chlor 0.9% Inj 250 ML IV.SIG PRN (09:00)
[2018-09-05] MEDS ORDERED: Magnesium Sulfate Inj 4 GM in Sodium Chlor 0.9% Inj 92 ML IV.SIG ONE (09:01)
[2018-09-05] MEDS: clonazePAM 0.5 MG Tablet PO SCH ×3 (09:02→17:59)
[2018-09-05] MEDS: Pantoprazole Inj 40 MG Vial IV.PUSH SCH (09:02)
[2018-09-05] MEDS: Senna/Docusate Sodium 8.6/50 MG Tablet PO SCH ×2 (09:02→20:46)
[2018-09-05] MEDS: predniSONE Liq 5 MG/5 ML UDC PO SCH (09:02)
[2018-09-05] MEDS: Chlorhexidine 0.12% Oral Kit 15 ML UDC OROPHARYNG SCH ×2 (09:02→20:45)
--- NOTE | 2018-09-05 09:12 | P.PNCC ---
Subjective Subjective Remarks/Hospital Course: 09/03: No acute events overnight the patient remains mechanically ventilated per patient received the first dose of IVIG yesterday the patient is to receive the remaining doses over the next 4 days pyridostigmine initiated this a.m. On sedation vacation the patient is alert awake responding to commands.. Ledezma catheter reinserted secondary to urinary retention and there required use of pyridostigmine secondary to medical condition. Urine toxicity resulted back yesterday polysubstance abuse. The patient was initiated on CPAP trials, will continue on CPAP trials however the patient is noted to have significant bulbar weakness with noted eyelid lag, we will continue to closely monitor ,no plans for extubation at this time. Patient continually complaining of generalized pain, oxycodone increased to 10 mg every 6 hours as needed. 09/04: Patient was extubated and will monitor closely with every 6 hours forced vital capacity/MIP/mep. Noted significant bulbar weakness with lid lag bilaterally and facial droop. Difficulty swallowing noted currently. Complaining of headache. Subjective 09/05: Reintubated yesterday afternoon after 2 hours. Initiated tube feeds. Complains of headache. Not controlled with Imitrex. Objective Vital Signs / I&O: Vital Signs 09/04/18 09:30 09/04/18 10:00 09/04/18 10:30 Temperature Pulse Rate 87 92 H 112 H Respiratory Rate 23 27 H 27 H Blood Pressure 118/73 123/60 133/65 Pulse Oximetry 95 94 L 94 L 09/04/18 11:00 09/04/18 11:08 09/04/18 11:10 Temperature Pulse Rate 130 H 103 H 83 Respiratory Rate 46 H 48 H 47 H Blood Pressure 150/94 H 167/100 H 195/96 H Pulse Oximetry 90 L 71 L 67 L 09/04/18 11:13 09/04/18 11:15 09/04/18 11:17 Temperature Pulse Rate 115 H 105 H 101 H Respiratory Rate 19 18 18 Blood Pressure 160/74 H 136/60 133/60 Pulse Oximetry 100 99 100 09/04/18 11:20 09/04/18 11:22 09/04/18 11:25 Temperature Pulse Rate 132 H 122 H 108 H Respiratory Rate 21 18 19 Blood Pressure 142/65 H 151/66 H 139/65 Pulse Oximetry 100 100 99 09/04/18 11:27 09/04/18 11:30 09/04/18 11:32 Temperature Pulse Rate 105 H 102 H 100 H Respiratory Rate 18 18 18 Blood Pressure 137/70 135/71 133/67 Pulse Oximetry 98 96 96 09/04/18 11:35 09/04/18 12:00 09/04/18 12:30 Temperature 99.8 F H Pulse Rate 97 H 98 H 114 H Respiratory Rate 18 18 16 Blood Pressure 131/67 124/58 L 139/84 Pulse Oximetry 97 96 92 L 09/04/18 13:00 09/04/18 13:30 09/04/18 14:00 Temperature Pulse Rate 88 81 80 Respiratory Rate 16 16 16 Blood Pressure 126/70 120/71 122/64 Pulse Oximetry 95 99 100 09/04/18 14:30 09/04/18 14:31 09/04/18 15:00 Temperature Pulse Rate 81 56 L 91 H Respiratory Rate 16 16 16 Blood Pressure 125/64 125/64 116/64 Pulse Oximetry 99 98 09/04/18 15:15 09/04/18 15:31 09/04/18 16:00 Temperature 100.8 F H Pulse Rate 101 H 121 H 104 H Respiratory Rate 16 24 16 Blood Pressure 155/83 H 117/63 Pulse Oximetry 96 97 95 09/04/18 16:30 09/04/18 17:00 09/04/18 17:30 Temperature Pulse Rate 108 H 101 H 97 H Respiratory Rate 16 16 16 Blood Pressure 108/73 101/59 L 98/56 L Pulse Oximetry 99 98 99 09/04/18 18:00 09/04/18 18:30 09/04/18 19:00 Temperature Pulse Rate 112 H 96 H 96 H Respiratory Rate 23 16 18 Blood Pressure 103/59 L 93/56 L 98/60 L Pulse Oximetry 99 100 100 09/04/18 19:30 09/04/18 20:00 09/04/18 20:02 Temperature 100.7 F H Pulse Rate 86 102 H 98 H Respiratory Rate 16 23 16 Blood Pressure 100/64 99/64 L Pulse Oximetry 100 88 L 100 09/04/18 20:30 09/04/18 21:00 09/04/18 21:19 Temperature Pulse Rate 109 H 104 H Respiratory Rate 17 24 16 Blood Pressure 90/51 L 95/51 L Pulse Oximetry 94 L 92 L 09/04/18 21:31 11/25/18 22:00 09/04/18 22:30 Temperature Pulse Rate 102 H 81 70 Respiratory Rate 29 H 16 17 Blood Pressure 91/55 L 89/54 L 89/55 L Pulse Oximetry 85 L 100 99 09/04/18 23:00 09/04/18 23:30 09/04/18 23:41 Temperature Pulse Rate 66 78 77 Respiratory Rate 16 31 H 16 Blood Pressure 90/54 L 96/54 L 92/51 L Pulse Oximetry 100 94 L 09/04/18 23:46 09/04/18 23:48 09/05/18 00:00 Temperature 100.1 F H Pulse Rate 89 74 Respiratory Rate 35 H 16 16 Blood Pressure 106/64 96/51 L Pulse Oximetry 89 L 98 100 09/05/18 00:30 09/05/18 01:00 09/05/18 01:30 Temperature Pulse Rate 64 83 61 Respiratory Rate 16 21 16 Blood Pressure 88/52 L 95/62 L 87/48 L Pulse Oximetry 100 99 100 09/05/18 02:00 09/05/18 02:30 09/05/18 03:00 Temperature Pulse Rate 62 62 66 Respiratory Rate 16 16 17 Blood Pressure 84/50 L 84/49 L Pulse Oximetry 100 100 09/05/18 03:01 09/05/18 03:30 09/05/18 03:36 Temperature Pulse Rate 61 69 84 Respiratory Rate 17 17 19 Blood Pressure 99/51 L 87/49 L Pulse Oximetry 09/05/18 03:41 09/05/18 04:00 09/05/18 04:30 Temperature 99.9 F H Pulse Rate 72 67 Respiratory Rate 16 16 16 Blood Pressure 87/48 L 87/52 L Pulse Oximetry 98 100 100 09/05/18 04:40 09/05/18 05:00 09/05/18 05:01 Temperature Pulse Rate 77 98 H 101 H Respiratory Rate 20 24 24 Blood Pressure 88/54 L 131/57 L Pulse Oximetry 100 99 09/05/18 05:20 09/05/18 05:40 09/05/18 06:00 Temperature Pulse Rate 85 65 73 Respiratory Rate 21 16 18 Blood Pressure 103/56 L 89/47 L 89/45 L Pulse Oximetry 100 100 09/05/18 06:20 09/05/18 06:40 09/05/18 07:00 Temperature Pulse Rate 64 61 63 Respiratory Rate 17 16 16 Blood Pressure 87/51 L 86/50 L 88/48 L Pulse Oximetry 100 100 100 09/05/18 07:23 09/05/18 07:40 09/05/18 08:00 Temperature Pulse Rate 68 68 66 Respiratory Rate 17 16 16 Blood Pressure 85/50 L 86/49 L 89/51 L Pulse Oximetry 100 93 L 100 Intake & Output 09/04/18 09/05/18 09/05/18 18:59 06:59 18:59 Intake Total 2170 / 2170 1550 / 1550 750 / 750 Output Total 1300 / 1300 0 / 0 Balance 870 / 870 1550 / 1550 750 / 750 Weight 60.8 kg Intake: IV 2170 / 2170 1450 / 1450 750 / 750 Diprivan 1000 mg/100 ml Inj 1, 170 / 170 200 / 200 000 mg In 100 ml @ 5 MCG/KG/MIN 1.824 mls/hr IV.CONT TITRATE PRN Rx#:[id number] NS Inj 1,000 ML @ 84 mls/hr IV. 1000 / 1000 1000 / 1000 CONT .[id number] [facility] Rx#:[id number] Privigen Inj 25 GM In Bag/ 250 / 250 250 / 250 Syringe 1 EACH @ 31.25 mls/hr IV.SIG Q24H ASHOK Rx#:[id number] NS Inj 500 ML @ 500 mls/hr IV. 500 / 500 SIG Q24H [facility] Rx#:[id number] fentaNYL 10 mcg/mL Premix Drip 250 / 250 2,500 mcg In 250 ml @ 50 MCG/HR 5 mls/hr IV.SIG TITRATE PRN Rx #:[id number] D5W Inj 500 ML @ 30 mls/hr 250 / 250 500 / 500 OTHER Q24H [facility] Rx#:[id number] Tube Irrigant 100 / 100 Output: Urine 0 / 0 Urine Amount (Catheter) 1300 / 1300 Indwelling Urethral Catheter 1300 / 1300 Other: # Voids 0 Date of Last Bowel Movement 09/05/18 # Bowel Movements 1 # Incontinent Bowel Movements 1 Result Diagrams: 09/05/18 04:29 09/05/18 04:29 Imaging: Chest X-Ray 09/02/18 11:48 CONCLUSION: 1. No acute abnormality or significant interval change. Chest X-Ray 09/02/18 14:12 CONCLUSION: Satisfactory support line and tube positioning. Mild left base parenchymal opacity. Face CT 09/02/18 14:20 CONCLUSION: No evidence of acute fracture. Thoracic Aorta CT 09/02/18 14:20 CONCLUSION: 1. Normal thoracic and abdominal aorta 2. Pleural-based airspace disease in both lower lobes. 3. Complex right ovarian cyst. 4. Small amount of free fluid in the cul-de-sac. 5. No evidence of suspicious mass or lymphadenopathy. Chest CTA 09/02/18 14:29 CONCLUSION: 1. No evidence of pulmonary embolism. 2. Areas of atelectasis or mild consolidation posterior lower lobes. Chest X-Ray 09/03/18 04:00 CONCLUSION: Minimal basilar airspace disease, stable. No effusion or pneumothorax. Support apparatus unchanged. Abdomen X-Ray 09/04/18 10:42 CONCLUSION: 1. Dobbhoff tube is coiled in the stomach with tip in the distal body of the stomach. Chest X-Ray 09/04/18 11:15 CONCLUSION: 1. ETT in good position. NGT beyond the GE junction. 2. Small left pleural effusion and associated left lower lung zone airspace disease. Objective Remarks: GENERAL: Chronically ill-appearing young lady. Noted bilateral eyelid lag, currently orotracheally intubated complaining of headache SKIN: Warm and dry. HEAD: Atraumatic. Normocephalic. EYES: Pupils equal and round. No scleral icterus. No injection or drainage. Noted lateral lid lag ENT: No nasal bleeding or discharge. Mucous membranes pink and moist. NECK: Trachea midline. No JVD. CARDIOVASCULAR: Normal rate, regular rhythm. S1, S2. No S4. RESPIRATORY: No accessory muscle use. Clear to auscultation. Breath sounds equal bilaterally. GASTROINTESTINAL: Abdomen soft, non-tender, nondistended. No guarding. MUSCULOSKELETAL: Extremities without clubbing, cyanosis, or edema. No obvious deformities. NEUROLOGICAL: Awake and alert. Moves all 4 extremities 3.5 to 4 out of 5 bilateral upper and lower. Sensation appears intact. Assessment and Plan - Assessment and Plan Plan: Neurologic: Myasthenia gravis exacerbation Migraine headache Chronic opioid use History of substance abuse including cocaine and cannabinoids Chronic benzodiazepine use Neuro checks per ICU Resume home medications when clinically indicated-which include clonazepam 0.5 mg twice daily. Patient states she is no longer taking mirtazapine or paroxetine Hold gabapentin as this can exacerbate myasthenia gravis Neurology consulted-Dr. Dover following Continue IVIG dosing-25 g daily for a total of 125 g TSH 0.598 Increase oxycodone 10 mg every 6 hours as needed for pain scale 8-10 Continue home medication prednisone 10 mg/day Pyridostigmine 120 mg 4 times daily Imitrex as needed for migraine headaches Urine toxicity noted positive for cocaine and cannabinoids Lidex and 30 Respiratory: Acute hypoxemic respiratory failure secondary to myasthenia gravis exacerbation PRVC ventilation Ventilator bundle Head of bed at 30 degrees CPAP trials throughout the day. Spontaneous breathing trials when clinically indicated Albuterol/ipratropium aerosols every 4 hours with albuterol aerosols every 2 hours as needed dyspnea Goals 6 hours forced vital capacity >20ml/kg/NIP >[id number] MEP >[id number] 09/02 CT angiogram pulmonary negative for pulmonary embolus Cardiovascular: Maintain map greater than 65 Currently on normal saline at 84 cc an hour. Not requiring antihypertensives and/or vasopressors /renal: applied purewick catheter -- Strict I/Os FEN/GI: Hypokalemia Hypophosphatemia Hypomagnesia Monitor BMP Normal saline 84 cc/hr Maintain tube feeding Jevity 1.5 goal 45 cc an hour Pantoprazole for GI prophylaxis Docusate sodium/senna 1 tablet twice daily for bowel regimen Recheck electrolytes at 1500 hrs. replace per ICU electrolyte protocol Heme/ID: Leukocytosis Monitor CBC currently within normal limits. Obtain cultures if clinically indicated Endocrine: Glucose monitoring per ICU -- SSI Prophylaxis: GI Prophylaxis Pantoprazole DVT Prophylaxis -- SCDs/enoxaparin Lines: Peripheral IVs x2 Level 3 follow-up
[2018-09-05] MEDS: Dexmedetomidine Inj 200 MCG in Sodium Chlor 0.9% Inj 48 ML IV.CONT PRN ×2 (09:55→14:38)
[2018-09-05] MEDS: Mag Sulf 1 gm/100 ml Premix 100 ML IV.SIG SCH ×2 (09:56→11:00)
[2018-09-05] MEDS: Butalbital/APAP/Caff 50/325/40 MG Tablet PO PRN ×2 (10:39→16:21)
[2018-09-05] MEDS: Potassium Chloride 25 MEQ Effervescent Tablet PO PRN (10:47)
[2018-09-05] MEDS: Acetaminophen 325 MG Tablet PO SCH (13:09)
[2018-09-05] MEDS: Sodium Chlor 0.9% Inj 500 ML IV.SIG SCH (13:09)
[2018-09-05] MEDS: IVIG (Immune Globulin) Inj 25 GM in Syringe/Bag 1 EACH IV.SIG SCH (14:22)
[2018-09-05] MEDS: fentaNYL 10 mcg/mL Premix Drip 2,500 MCG/250 ML BAG IV.SIG PRN ×2 (14:40→16:22)
[2018-09-05 15:56] LABS: Magnesium 2.1 mg/dL (1.5-2.5); Phosphorus 3.6 mg/dL (2.5-4.9); Potassium 4.2 meq/L (3.5-5.1)
[2018-09-05] MEDS: Enoxaparin Inj 30 MG/0.3 ML Syringe SQ SCH (16:12)
[2018-09-05] MEDS ORDERED: Dextrose 50% in Water 50 ML Vial IV.PUSH PRN (18:10)
[2018-09-06] MEDS: Dexmedetomidine Inj 200 MCG in Sodium Chlor 0.9% Inj 48 ML IV.CONT PRN ×3 (00:46→13:48)
[2018-09-06] MEDS: Sod Chloride 0.9% Inj 1,000 ML IV.CONT SCH ×3 (00:48→16:17)
[2018-09-06] MEDS: Insulin NovoLOG Aspart Correctional Sugar Inj SQ SCH ×4 (00:53→18:55)
[2018-09-06] MEDS: Oral Hygiene Kit OROPHARYNG SCH ×4 (00:54→15:29)
[2018-09-06] MEDS: fentaNYL 10 mcg/mL Premix Drip 2,500 MCG/250 ML BAG IV.SIG PRN ×3 (01:27→20:09)
[2018-09-06] MEDS: Butalbital/APAP/Caff 50/325/40 MG Tablet PO PRN ×3 (01:27→18:55)
--- NOTE | 2018-09-06 02:03 | XR ---
EXAM DATE: 09/06/2018 1:42 AM EST AGE/SEX: 43 years / Female INDICATIONS: Short of breath. CLINICAL DATA: This is the patient's subsequent encounter. Patient reports that signs and symptoms h ave been present for 1 week and indicates a pain score of 0/10. MEDICAL/SURGICAL HISTORY: . DDD, Myasthenia Gravis flare up. Tubal ligation. COMPARISON: [facility], CHEST 1V SINGLE AP, 09/04/2018. . FINDINGS: Endotracheal tube is in good position. NG enters stomach. Left central line in superior vena cava. Le ft basilar consolidation has improved over the last 2 days. Mild bibasilar airspace disease persists. No significant effusion. CONCLUSION: Mild basilar airspace disease. Improvement in left base consolidation since September 04. Support appa rat unchanged. Electronically signed by: Horace Lind MD 09/06/2018 2:02 AM EST
[2018-09-06 04:12] LABS: Baso % (Auto) 0.1 % (0.0-2.0); Eos % (Auto) 0.1 % (0.0-4.0); Hematocrit 30.7 % (35.0-46.0); Hemoglobin 10.2 gm/dL (11.6-15.3); Lymph # (Auto) 0.6 th/mm3 (1.0-4.8); Lymph % (Auto) 5.5 % (9.0-44.0); Mean Corpuscular HGB Conc 33.1 % (32.0-36.0); Mean Corpuscular Volume 90.6 fL (80.0-100.0); Mean Platelet Volume 9.5 fL (7.0-11.0); Mono # (Auto) 0.6 th/mm3 (0.0-0.9); Mono % (Auto) 5.9 % (0.0-8.0); Neut # (Auto) 9.5 th/mm3 (1.8-7.7); Neut % (Auto) 88.4 % (16.0-70.0); Platelet Count 238 th/mm3 (150-450); Red Blood Count 3.39 mil/mm3 (4.00-5.30); Red Cell Distribution Width 14.9 % (11.6-17.2); White Blood Count 10.8 th/mm3 (4.0-11.0)
[2018-09-06 04:37] LABS: Anion Gap 0 meq/L (5-15); Aspartate Aminotransferase 9 U/L (15-37); Blood Urea Nitrogen 5 mg/dL (7-18); Calcium 8.1 mg/dL (8.5-10.1); Chloride 114 meq/L (98-107); Glomerular Filtration Rate Greater Than 89 mL/min (>89); Glucose,Random 158 mg/dL (74-106); Magnesium 2.1 mg/dL (1.5-2.5); Potassium 3.7 meq/L (3.5-5.1); Sodium 139 meq/L (136-145)
[2018-09-06 04:43] LABS: Alanine Aminotransferase 10 U/L (10-53); Alkaline Phosphatase 58 U/L (45-117); Phosphorus 1.1 mg/dL (2.5-4.9); Total Protein 7.8 g/dL (6.4-8.2)
[2018-09-06] MEDS: Chlorhexidine Gluconate 2% 1 Pack (2 Cloths) TOPICAL SCH (06:09)
[2018-09-06] MEDS: Pyridostigmine Bromide 60 MG Tablet PO SCH ×4 (06:10→22:51)
[2018-09-06] MEDS: Artificial Tears Opth Drops 15 ML Bottle EACH EYE SCH ×3 (06:11→20:11)
--- NOTE | 2018-09-06 07:23 | P.PNNEU ---
Subjective Active Medications: Active Medications Acetaminophen (Tylenol) 650 mg PO Q6H PRN PRN Reason: PAIN 1-5 AND/OR FEVER >101F Last Admin: 09/04/18 21:16 Dose: 650 mg Acetaminophen (Tylenol) 650 mg PO Q24H [facility] Stop: 09/06/18 14:01 Last Admin: 09/05/18 13:09 Dose: 650 mg Acetaminophen/Butalbital/Caffeine (Fioricet 50-325-40) 1 tab PO Q6H PRN PRN Reason: Breakthrough migraine Last Admin: 09/06/18 01:27 Dose: 1 tab Al Hydroxide/Mg Hydroxide (Milk Of Gayathri Venegas) 30 ml PO Q12H PRN PRN Reason: Mild Constipation Albuterol (Albuterol Neb (Prn)) 2.5 mg NEB Q2HR NEB PRN PRN Reason: SHORTNESS OF BREATH/WHEEZING Albuterol (Duoneb Neb ([facility])) 1 ampul NEB Q4HR NEB [facility] Last Admin: 09/06/18 04:04 Dose: 1 ampul Artificial Tears (Tears Naturale Opth Drops) 1 drop EACH EYE Q8H [facility] Last Admin: 09/06/18 06:11 Dose: Not Given Bisacodyl (Dulcolax Supp) 10 mg RECTAL DAILY PRN PRN Reason: SEVERE CONSITIPATION Chlorhexidine Gluconate (Chlorhexidine 2% Cloth) 3 pack TOPICAL DAILY@0400 [facility] Stop: 09/08/18 03:59 Last Admin: 09/06/18 06:09 Dose: 3 pack Chlorhexidine Gluconate (Chlorhexidine 2% Cloth) 3 pack TOPICAL DAILY@0400 PRN PRN Reason: Extra cloth needed Stop: 09/08/18 03:59 Chlorhexidine Gluconate (Peridex 0.12% Oral Kit) 15 ml OROPHARYNG BID@0800, 2000 [facility] Last Admin: 09/05/18 20:45 Dose: 15 ml Clonazepam (Klonopin) 0.5 mg PO TID [facility] Last Admin: 09/05/18 17:59 Dose: 0.5 mg Dextrose (D50w Vial) 50 ml IV.PUSH UNSCH PRN PRN Reason: PER HYPOGLYCEMIA PROTOCOL Diphenhydramine HCl (Benadryl Inj) 50 mg IV.PUSH PRN PRN PRN Reason: ALLERGIC REACTION Stop: 09/07/18 13:59 Diphenhydramine HCl (Benadryl) 25 mg PO Q24H [facility] Stop: 09/06/18 14:01 Last Admin: 09/05/18 13:08 Dose: 25 mg Enoxaparin Sodium (Lovenox Inj) 30 mg SQ Q24H [facility] Last Admin: 09/05/18 16:12 Dose: 30 mg Epinephrine HCl (Epinephrine (1:1000) Inj) 0.3 mg OTHER Q10M PRN PRN Reason: Anaphylactic Reaction Stop: 09/07/18 13:59 Glucagon (Glucagon Inj) 1 mg OTHER PRN PRN PRN Reason: for Hypoglycemia Protocol Magnesium Sulfate 4 gm/ Sodium (Chloride) 100 mls @ 50 mls/hr IV.SIG UNSCH PRN PRN Reason: For Magnesium 0.9 - 1.1 mg/dL Magnesium Sulfate 2 gm/ Sodium (Chloride) 100 mls @ 50 mls/hr IV.SIG UNSCH PRN PRN Reason: For Magnesium 1.2 - 1.6 mg/dL Sodium Chloride (Ns Inj) 1,000 mls @ 84 mls/hr IV.CONT .[id number] [facility] Last Admin: 09/06/18 06:09 Dose: 84 mls/hr Potassium Chloride (Kcl 20 Meq Premix Inj) 20 meq in 100 mls @ 50 mls/hr IV.SIG Q2H PRN PRN Reason: For Potassium 3.3 - 3.5 mEq/L Potassium Chloride (Kcl 40 Meq Premix Inj) 40 meq in 100 mls @ 25 mls/hr IV.SIG UNSCH PRN PRN Reason: For Potassium 3.3 - 3.5 mEq/L Potassium Chloride (Kcl 20 Meq Premix Inj) 20 meq in 100 mls @ 50 mls/hr IV.SIG Q2H PRN PRN Reason: For Potassium 2.8 - 3.2 mEq/L Potassium Phosphate 30 mmol/ (Sodium Chloride) 260 mls @ 42 mls/hr IV.SIG UNSCH PRN PRN Reason: SEE LABEL COMMENTS Last Infusion: 09/05/18 15:12 Dose: Infused Sodium Phosphate 30 mmol/ (Sodium Chloride) 260 mls @ 42 mls/hr IV.SIG UNSCH PRN PRN Reason: For Phosphorus < 2.5 mg/dL Potassium Chloride (Kcl 40 Meq Premix Inj) 40 meq in 100 mls @ 25 mls/hr IV.SIG Q2H PRN PRN Reason: For Potassium 2.8 - 3.2 mEq/L Immune Globulin 25 gm/ (Miscellaneous Medication) 250 mls @ 31.25 mls/hr IV.SIG Q24H [facility]; Protocol Stop: 09/06/18 21:59 Last Infusion: 09/05/18 22:53 Dose: Infused Dextrose (D5w Inj) 500 mls @ 30 mls/hr OTHER Q24H [facility] Stop: 09/07/18 06:39 Last Admin: 09/05/18 14:25 Dose: 30 mls/hr Sodium Chloride (Ns Inj) 500 mls @ 500 mls/hr IV.SIG Q24H [facility] Stop: 09/06/18 14:59 Last Infusion: 09/05/18 14:09 Dose: Infused Propofol (Diprivan 1000 Mg/100 Ml Inj) 1,000 mg in 100 mls @ 1.824 mls/hr IV.CONT TITRATE PRN; Protocol PRN Reason: Per Protocol Last Titration: 09/05/18 10:39 Dose: Infused Fentanyl (Fentanyl 10 Mcg/Ml Premix Drip) 2,500 mcg in 250 mls @ 5 mls/hr IV.SIG TITRATE PRN; Protocol PRN Reason: Per Protocol Last Admin: 09/06/18 01:27 Dose: 250 mcg/hr, 25 mls/hr Dexmedetomidine HCl 200 mcg/ (Sodium Chloride) 50 mls @ 3.04 mls/hr IV.CONT TITRATE PRN; Protocol PRN Reason: Per Protocol Last Admin: 09/06/18 00:46 Dose: 0.4 mcg/kg/hr, 6.08 mls/hr Insulin Aspart (Novolog Insulin Correctional Sugar Inj) 0 unit SQ Q6HR [facility]; Protocol Last Admin: 09/06/18 00:53 Dose: 4 unit Lactulose (Lactulose Liq) 30 ml PO DAILY PRN PRN Reason: SEVERE CONSITIPATION Magnesium Oxide (Mag-Ox) 800 mg PO UNSCH PRN PRN Reason: For Magnesium 1.2 - 1.6 mg/dL Miscellaneous Medication () 1 each OROPHARYNG 0000,0400,1200,1600 [facility] Last Admin: 09/06/18 06:09 Dose: 1 each Ondansetron HCl (Zofran Inj) 4 mg IV.PUSH Q6H PRN PRN Reason: NAUSEA OR VOMITING Last Admin: 09/05/18 06:49 Dose: 4 mg Oxycodone HCl (Roxicodone Intensol Liq) 10 mg PO Q6H PRN PRN Reason: PAIN SCALE 6 TO 10 Last Admin: 09/06/18 06:10 Dose: 10 mg Pantoprazole Sodium (Protonix Inj) 40 mg IV.PUSH DAILY [facility] Last Admin: 09/05/18 09:02 Dose: 40 mg Potassium Bicarb/Potassium Chloride (K-Lyte Cl Eff) 50 meq PO UNSCH PRN PRN Reason: For Potassium 3.3 - 3.5 mEq/L Last Admin: 09/05/18 10:47 Dose: 50 meq Potassium Phosphate (K-Phos Original) 2,000 mg PO Q4H PRN PRN Reason: Phosphorus Less Than 2.5 mg/dL Potassium Phosphate (K-Phos Original) 2,000 mg PO UNSCH PRN PRN Reason: SEE LABEL COMMENTS Prednisone (Deltasone Liq) 60 mg PO DAILY [facility] Last Admin: 09/05/18 09:02 Dose: 60 mg Pyridostigmine [place] (Mestinon) 120 mg PO Q6H [facility] Last Admin: 09/06/18 06:10 Dose: 120 mg Senna/Docusate Sodium (Bonita-Colace) 1 tab PO BID [facility] Last Admin: 09/05/18 20:46 Dose: 1 tab Sennosides (Senokot) 17.2 mg PO Q12H PRN PRN Reason: Moderate Constipation Sodium Chloride (Ns Flush) 2 ml IV.FLUSH BID [facility] Last Admin: 09/05/18 20:46 Dose: 2 ml Sodium Chloride (Ns Flush) 2 ml IV.FLUSH PRN PRN PRN Reason: FLUSH AFTER USING IV ACCESS Last Admin: 09/04/18 09:36 Dose: 2 ml Sumatriptan Succinate (Imitrex) 50 mg PO Q4H PRN PRN Reason: HEADACHE PAIN Last Admin: 09/05/18 13:09 Dose: 50 mg Allergies/Adverse Reactions: Allergies Allergy/AdvReac Type Severity Reaction Status Date / Time penicillin G Allergy Severe Anaphylaxis Verified 09/02/18 12:30 promethazine AdvReac Severe NAUSEOUS Verified 09/02/18 12:30 Physical Exam Vital signs: Vital Signs 09/05/18 07:23 09/05/18 07:40 09/05/18 08:00 Temperature 99.8 F H Pulse Rate 68 68 64 Respiratory Rate 17 16 16 Blood Pressure 85/50 L 86/49 L 89/51 L Pulse Oximetry 100 93 L 100 09/05/18 11:32 09/05/18 12:00 09/05/18 14:20 Temperature 99.0 F Pulse Rate 102 H 90 59 L Respiratory Rate 10 L 19 Blood Pressure 93/47 L 101/54 L Pulse Oximetry 100 100 100 09/05/18 14:22 09/05/18 14:40 09/05/18 14:57 Temperature Pulse Rate 64 48 L Respiratory Rate 19 31 H 18 Blood Pressure 101/54 L 99/57 L Pulse Oximetry 100 09/05/18 15:00 09/05/18 15:01 09/05/18 15:20 Temperature Pulse Rate 71 75 61 Respiratory Rate 31 H 35 H 22 Blood Pressure 106/60 99/52 L Pulse Oximetry 100 100 92 L 09/05/18 15:38 09/05/18 15:40 09/05/18 16:00 Temperature 98.0 F Pulse Rate 71 60 55 L Respiratory Rate 18 16 21 Blood Pressure 102/53 L 92/54 L Pulse Oximetry 93 L 91 L 98 09/05/18 16:01 09/05/18 16:21 09/05/18 16:50 Temperature Pulse Rate 55 L 50 L 80 Respiratory Rate 18 17 24 Blood Pressure 92/54 L 95/72 L 112/70 Pulse Oximetry 100 100 93 L 09/05/18 17:00 09/05/18 17:01 09/05/18 17:32 Temperature Pulse Rate 86 55 L 68 Respiratory Rate 31 H 19 32 H Blood Pressure 91/44 L 134/57 L Pulse Oximetry 94 L 84 L 100 09/05/18 17:39 09/05/18 18:00 09/05/18 18:04 Temperature Pulse Rate 61 73 Respiratory Rate 18 23 26 H Blood Pressure 140/62 Pulse Oximetry 99 92 L 09/05/18 18:43 09/05/18 19:00 09/05/18 19:01 Temperature Pulse Rate 58 L 47 L 47 L Respiratory Rate 26 H 16 21 Blood Pressure 126/67 106/65 Pulse Oximetry 97 97 88 L 09/05/18 19:40 09/05/18 19:48 09/05/18 19:53 Temperature Pulse Rate 50 L 49 L Respiratory Rate 25 H 16 16 Blood Pressure 122/60 Pulse Oximetry 100 96 09/05/18 20:00 09/05/18 20:01 09/05/18 20:31 Temperature 97.3 F L Pulse Rate 46 L 46 L 59 L Respiratory Rate 16 17 17 Blood Pressure 114/63 105/67 Pulse Oximetry 100 100 100 09/05/18 21:00 09/05/18 21:02 09/05/18 21:30 Temperature Pulse Rate 47 L 51 L 47 L Respiratory Rate 17 21 17 Blood Pressure 100/58 L 108/63 Pulse Oximetry 100 71 L 100 09/05/18 22:00 09/05/18 22:30 09/05/18 22:35 Temperature Pulse Rate 54 L 50 L Respiratory Rate 17 16 16 Blood Pressure 108/57 L 112/68 Pulse Oximetry 100 100 100 09/05/18 23:00 09/05/18 23:01 09/05/18 23:26 Temperature Pulse Rate 80 65 69 Respiratory Rate 25 H 20 17 Blood Pressure 107/64 Pulse Oximetry 100 75 L 09/06/18 00:00 09/06/18 00:30 09/06/18 01:00 Temperature 97.4 F L Pulse Rate 47 L 50 L 53 L Respiratory Rate 16 16 17 Blood Pressure 105/62 98/57 L 113/62 Pulse Oximetry 100 100 98 09/06/18 01:30 09/06/18 01:39 09/06/18 02:00 Temperature Pulse Rate 43 L 42 L Respiratory Rate 16 16 16 Blood Pressure 121/65 126/67 Pulse Oximetry 100 100 09/06/18 02:31 09/06/18 03:00 09/06/18 03:31 Temperature Pulse Rate 43 L 44 L 44 L Respiratory Rate 16 16 16 Blood Pressure 140/63 131/72 118/73 Pulse Oximetry 100 100 100 09/06/18 04:00 09/06/18 04:04 09/06/18 04:17 Temperature 98.7 F Pulse Rate 49 L 63 47 L Respiratory Rate 21 17 17 Blood Pressure 118/65 Pulse Oximetry 99 100 09/06/18 04:30 09/06/18 04:35 09/06/18 05:00 Temperature Pulse Rate 45 L 66 Respiratory Rate 16 16 20 Blood Pressure 113/65 Pulse Oximetry 100 100 80 L 09/06/18 05:01 Temperature Pulse Rate 71 Respiratory Rate 18 Blood Pressure 109/70 Pulse Oximetry 84 L Intake & Output 09/05/18 09/06/18 09/06/18 18:59 06:59 18:59 Intake Total 2994.02 / 2994.02 3160 / 3160 Output Total 1550 / 1550 1200 / 1200 Balance 1444.02 / 1444.02 1960 / 1959 Weight 64.9 kg Intake: IV 2322.02 / 2322.02 2550 / 2550 Precedex Inj 200 MCG In NS Inj 50 / 50 50 / 50 48 ML @ 0.2 MCG/KG/HR 3.04 mls/ hr IV.CONT TITRATE PRN Rx#: [id number] Diprivan 1000 mg/100 ml Inj 1, 62.02 / 62.02 000 mg In 100 ml @ 5 MCG/KG/MIN 1.824 mls/hr IV.CONT TITRATE PRN Rx#:[id number] NS Inj 1,000 ML @ 84 mls/hr IV. 1999 / 1999 CONT .[id number] [facility] Rx#:[id number] Privigen Inj 25 GM In Bag/ 250 / 250 250 / 250 Syringe 1 EACH @ 31.25 mls/hr IV.SIG Q24H [facility] Rx#:[id number] Magnesium Sulfate 1 gm/D5W 100 200 / 200 ml Premix 100 ML @ 100 mls/hr IV.SIG Q1H [facility] Rx#:[id number] Potassium Phosphate Inj 30 MMOL 260 / 260 In NS Inj 250 ML @ 42 mls/hr IV.SIG UNSCH PRN Rx#:[id number] NS Inj 500 ML @ 500 mls/hr IV. 500 / 500 SIG Q24H [facility] Rx#:[id number] fentaNYL 10 mcg/mL Premix Drip 500 / 500 250 / 250 2,500 mcg In 250 ml @ 50 MCG/HR 5 mls/hr IV.SIG TITRATE PRN Rx #:[id number] D5W Inj 500 ML @ 30 mls/hr 500 / 500 OTHER Q24H [facility] Rx#:[id number] Tube Feeding 572 / 572 490 / 490 Tube Irrigant 100 / 100 120 / 120 Output: Urine Amount (Catheter) 1550 / 1550 1200 / 1200 Indwelling Urethral Catheter 1550 / 1550 1200 / 1200 Other: Date of Last Bowel Movement 09/05/18 09/05/18 # Incontinent Bowel Movements 1 Narrative: eye closure may be just a bit stronger today awake alert - Urinary Catheter Management Indwelling Urethral Catheter Cath placed during this visit: yes, but has since been removed by the nurse Reason for continuing: Acute urinary retention Insertion date: 09/03/18 Insertion time: 15:30 Removal date: 09/03/18 Removal time: 12:00 Straight Cath placed during this visit: no Objective Laboratory Results - last 24 hr 09/04/18 09/05/18 09/05/18 16:22 09:17 12:36 WBC RBC Hgb Hct MCV MCH MCHC RDW Plt Count MPV Neut % (Auto) Lymph % (Auto) [place] % (Auto) Eos % (Auto) Baso % (Auto) Neut # (Auto) Lymph # (Auto) [place] # (Auto) Eos # (Auto) Baso # (Auto) WBC Differential Differential Comment Sodium Potassium Chloride Carbon Dioxide Anion Gap BUN Creatinine Estimated GFR POC Glucose 108 211 H Random Glucose Calcium Phosphorus Magnesium Total Bilirubin AST ALT Alkaline Phosphatase Total Protein Albumin Urine Color Yellow Urine Clarity Hazy H Urine pH 5.0 Ur Specific [place] 1.014 Urine Protein Negative Urine Glucose (UA) Negative Urine Ketones 80 or greater H Urine Occult Blood Moderate H Urine Nitrate Positive H Urine Bilirubin Negative Urine Urobilinogen 2.0 H Ur Leukocyte Esterase Small H Urine RBC 3 Urine WBC 31 H Amorphous Sediment Rare H Urine Bacteria Few H Urine Mucus Few H Micro UA Comment Cath-culture ind Urine Culture Comments Cath-cult indicated 09/05/18 09/05/18 09/06/18 15:05 18:00 00:20 WBC RBC Hgb Hct MCV MCH MCHC RDW Plt Count MPV Neut % (Auto) Lymph % (Auto) [place] % (Auto) Eos % (Auto) Baso % (Auto) Neut # (Auto) Lymph # (Auto) [place] # (Auto) Eos # (Auto) Baso # (Auto) WBC Differential Differential Comment Sodium Potassium 4.2 D Chloride Carbon Dioxide Anion Gap BUN Creatinine Estimated GFR POC Glucose 266 H 204 H Random Glucose Calcium Phosphorus 3.6 D Magnesium 2.1 D Total Bilirubin AST ALT Alkaline Phosphatase Total Protein Albumin Urine Color Urine Clarity Urine pH Ur Specific [place] Urine Protein Urine Glucose (UA) Urine Ketones Urine Occult Blood Urine Nitrate Urine Bilirubin Urine Urobilinogen Ur Leukocyte Esterase Urine RBC Urine WBC Amorphous Sediment Urine Bacteria Urine Mucus Micro UA Comment Urine Culture Comments 09/06/18 09/06/18 09/06/18 03:30 03:30 06:18 WBC 10.8 RBC 3.39 L Hgb 10.2 L Hct 30.7 L MCV 90.6 MCH 30.0 MCHC 33.1 RDW 14.9 Plt Count 238 MPV 9.5 Neut % (Auto) 88.4 H Lymph % (Auto) 5.5 L [place] % (Auto) 5.9 Eos % (Auto) 0.1 Baso % (Auto) 0.1 Neut # (Auto) 9.5 H Lymph # (Auto) 0.6 L [place] # (Auto) 0.6 Eos # (Auto) 0.0 Baso # (Auto) 0.0 WBC Differential . Differential Comment Auto diff final Sodium 139 Potassium 3.7 Chloride 114 H Carbon Dioxide 25.0 Anion Gap 0 L BUN 5 L Creatinine 0.41 L Estimated GFR Greater than 89 POC Glucose 191 H Random Glucose 158 H Calcium 8.1 L Phosphorus 1.1 L D Magnesium 2.1 Total Bilirubin 0.2 AST 9 L ALT 10 Alkaline Phosphatase 58 Total Protein 7.8 Albumin 2.0 L Urine Color Urine Clarity Urine pH Ur Specific [place] Urine Protein Urine Glucose (UA) Urine Ketones Urine Occult Blood Urine Nitrate Urine Bilirubin Urine Urobilinogen Ur Leukocyte Esterase Urine RBC Urine WBC Amorphous Sediment Urine Bacteria Urine Mucus Micro UA Comment Urine Culture Comments Microbiology 09/04/18 16:22 Gram Stain - Final Sputum - Endotracheal Sputum Culture - Preliminary S. aureus MRSA 09/04/18 16:22 Urine Culture - Preliminary Catheterized Urine gram negative rods 09/04/18 16:55 Aerobic Blood Culture - Preliminary Blood - Peripheral No growth in 1 day Anaerobic Blood Culture - Preliminary No growth in 1 day 09/04/18 17:07 Aerobic Blood Culture - Preliminary Blood - Peripheral No growth in 1 day Anaerobic Blood Culture - Preliminary No growth in 1 day Review/Management - Review/Management Plan: imp high aspiration risk make sure she gets her mestinon full dose as per home may need dobhoff ivig day 3 09/05/18 not getting any benefit from ivig so far inc pred to 60 a day mestinon 120 q 6 will consider new med out 09/06/18 maybe a lbit better on last day of ivig if not better by may do pex she will think about new med but not an acute option now
[2018-09-06] MEDS: clonazePAM 0.5 MG Tablet PO SCH ×3 (09:06→18:23)
[2018-09-06] MEDS: Chlorhexidine 0.12% Oral Kit 15 ML UDC OROPHARYNG SCH ×2 (09:06→20:10)
[2018-09-06] MEDS: Senna/Docusate Sodium 8.6/50 MG Tablet PO SCH ×2 (09:06→20:11)
[2018-09-06] MEDS: predniSONE Liq 5 MG/5 ML UDC PO SCH (09:06)
[2018-09-06] MEDS: Pantoprazole Inj 40 MG Vial IV.PUSH SCH (09:07)
--- NOTE | 2018-09-06 14:39 | P.PNCC ---
Subjective Subjective Remarks/Hospital Course: 09/03: No acute events overnight the patient remains mechanically ventilated per patient received the first dose of IVIG yesterday the patient is to receive the remaining doses over the next 4 days pyridostigmine initiated this a.m. On sedation vacation the patient is alert awake responding to commands.. Ledezma catheter reinserted secondary to urinary retention and there required use of pyridostigmine secondary to medical condition. Urine toxicity resulted back yesterday polysubstance abuse. The patient was initiated on CPAP trials, will continue on CPAP trials however the patient is noted to have significant bulbar weakness with noted eyelid lag, we will continue to closely monitor ,no plans for extubation at this time. Patient continually complaining of generalized pain, oxycodone increased to 10 mg every 6 hours as needed. 09/04: Patient was extubated and will monitor closely with every 6 hours forced vital capacity/MIP/mep. Noted significant bulbar weakness with lid lag bilaterally and facial droop. Difficulty swallowing noted currently. Complaining of headache. 09/05: Reintubated yesterday afternoon after 2 hours. Initiated tube feeds. Complains of headache. Not controlled with Imitrex. Subjective 09/06: Afebrile. C/O MERAZ- no relief w/fioricet. KPhos now. Objective Vital Signs / I&O: Vital Signs 09/05/18 14:40 09/05/18 14:57 09/05/18 15:00 Temperature Pulse Rate 48 L 71 Respiratory Rate 31 H 18 31 H Blood Pressure 99/57 L Pulse Oximetry 100 100 09/05/18 15:01 09/05/18 15:20 09/05/18 15:38 Temperature Pulse Rate 75 61 71 Respiratory Rate 35 H 22 18 Blood Pressure 106/60 99/52 L Pulse Oximetry 100 92 L 93 L 09/05/18 15:40 09/05/18 16:00 09/05/18 16:01 Temperature 98.0 F Pulse Rate 60 55 L 55 L Respiratory Rate 16 21 18 Blood Pressure 102/53 L 92/54 L 92/54 L Pulse Oximetry 91 L 98 100 09/05/18 16:21 09/05/18 16:50 09/05/18 17:00 Temperature Pulse Rate 50 L 80 86 Respiratory Rate 17 24 31 H Blood Pressure 95/72 L 112/70 Pulse Oximetry 100 93 L 94 L 09/05/18 17:01 09/05/18 17:32 09/05/18 17:39 Temperature Pulse Rate 55 L 68 Respiratory Rate 19 32 H 18 Blood Pressure 91/44 L 134/57 L Pulse Oximetry 84 L 100 09/05/18 18:00 09/05/18 18:04 09/05/18 18:43 Temperature Pulse Rate 61 73 58 L Respiratory Rate 23 26 H 26 H Blood Pressure 140/62 126/67 Pulse Oximetry 99 92 L 97 09/05/18 19:00 09/05/18 19:01 09/05/18 19:40 Temperature Pulse Rate 47 L 47 L 50 L Respiratory Rate 16 21 25 H Blood Pressure 106/65 122/60 Pulse Oximetry 97 88 L 100 09/05/18 19:48 09/05/18 19:53 09/05/18 20:00 Temperature 97.3 F L Pulse Rate 49 L 46 L Respiratory Rate 16 16 16 Blood Pressure Pulse Oximetry 96 100 09/05/18 20:01 09/05/18 20:31 09/05/18 21:00 Temperature Pulse Rate 46 L 59 L 47 L Respiratory Rate 17 17 17 Blood Pressure 114/63 105/67 Pulse Oximetry 100 100 100 09/05/18 21:02 09/05/18 21:30 09/05/18 22:00 Temperature Pulse Rate 51 L 47 L 54 L Respiratory Rate 21 17 17 Blood Pressure 100/58 L 108/63 108/57 L Pulse Oximetry 71 L 100 100 09/05/18 22:30 09/05/18 22:35 09/05/18 23:00 Temperature Pulse Rate 50 L 80 Respiratory Rate 16 16 25 H Blood Pressure 112/68 Pulse Oximetry 100 100 100 09/05/18 23:01 09/05/18 23:26 09/06/18 00:00 Temperature 97.4 F L Pulse Rate 65 69 47 L Respiratory Rate 20 17 16 Blood Pressure 107/64 105/62 Pulse Oximetry 75 L 100 09/06/18 00:30 09/06/18 01:00 09/06/18 01:30 Temperature Pulse Rate 50 L 53 L Respiratory Rate 16 17 16 Blood Pressure 98/57 L 113/62 Pulse Oximetry 100 98 100 09/06/18 01:39 09/06/18 02:00 09/06/18 02:31 Temperature Pulse Rate 43 L 42 L 43 L Respiratory Rate 16 16 16 Blood Pressure 121/65 126/67 140/63 Pulse Oximetry 100 100 09/06/18 03:00 09/06/18 03:31 09/06/18 04:00 Temperature 98.7 F Pulse Rate 44 L 44 L 49 L Respiratory Rate 16 16 21 Blood Pressure 131/72 118/73 Pulse Oximetry 100 100 99 09/06/18 04:04 09/06/18 04:17 09/06/18 04:30 Temperature Pulse Rate 63 47 L 45 L Respiratory Rate 17 17 16 Blood Pressure 118/65 113/65 Pulse Oximetry 100 100 09/06/18 04:35 09/06/18 05:00 09/06/18 05:01 Temperature Pulse Rate 66 71 Respiratory Rate 16 20 18 Blood Pressure 109/70 Pulse Oximetry 100 80 L 84 L 09/06/18 07:21 09/06/18 08:00 09/06/18 11:42 Temperature Pulse Rate 83 59 L 64 Respiratory Rate 16 12 Blood Pressure Pulse Oximetry 100 97 97 Intake & Output 09/05/18 09/06/18 09/06/18 18:59 06:59 18:59 Intake Total 2994.02 / 2994.02 3160 / 3160 850 / 850 Output Total 1550 / 1550 1200 / 1200 Balance 1444.02 / 1444.02 1960 / 1959 850 / 850 Weight 64.9 kg Intake: IV 2322.02 / 2322.02 2550 / 2550 850 / 850 Precedex Inj 200 MCG In NS Inj 50 / 50 50 / 50 100 / 100 48 ML @ 0.2 MCG/KG/HR 3.04 mls/ hr IV.CONT TITRATE PRN Rx#: [id number] Diprivan 1000 mg/100 ml Inj 1, 62.02 / 62.02 000 mg In 100 ml @ 5 MCG/KG/MIN 1.824 mls/hr IV.CONT TITRATE PRN Rx#:[id number] NS Inj 1,000 ML @ 84 mls/hr IV. 1999 / 1999 CONT .[id number] [facility] Rx#:[id number] Privigen Inj 25 GM In Bag/ 250 / 250 250 / 250 Syringe 1 EACH @ 31.25 mls/hr IV.SIG Q24H [facility] Rx#:[id number] Magnesium Sulfate 1 gm/D5W 100 200 / 200 ml Premix 100 ML @ 100 mls/hr IV.SIG Q1H [facility] Rx#:[id number] Potassium Phosphate Inj 30 MMOL 260 / 260 In NS Inj 250 ML @ 42 mls/hr IV.SIG UNSCH PRN Rx#:[id number] NS Inj 500 ML @ 500 mls/hr IV. 500 / 500 SIG Q24H [facility] Rx#:[id number] fentaNYL 10 mcg/mL Premix Drip 500 / 500 250 / 250 250 / 250 2,500 mcg In 250 ml @ 50 MCG/HR 5 mls/hr IV.SIG TITRATE PRN Rx #:[id number] D5W Inj 500 ML @ 30 mls/hr 500 / 500 500 / 500 OTHER Q24H [facility] Rx#:[id number] Tube Feeding 572 / 572 490 / 490 Tube Irrigant 100 / 100 120 / 120 Output: Urine Amount (Catheter) 1550 / 1550 1200 / 1200 Indwelling Urethral Catheter 1550 / 1550 1200 / 1200 Other: Date of Last Bowel Movement 09/05/18 09/05/18 09/06/18 # Incontinent Bowel Movements 1 Result Diagrams: 09/06/18 03:30 09/06/18 03:30 Other Results: Microbiology 09/04/18 16:22 Sputum - Endotracheal Gram Stain - Final 09/04/18 16:22 Sputum - Endotracheal Sputum Culture - Final S. aureus MRSA 09/04/18 16:55 Blood - Peripheral Aerobic Blood Culture - Preliminary No growth in 2 days 09/04/18 16:55 Blood - Peripheral Anaerobic Blood Culture - Preliminary No growth in 2 days 09/04/18 17:07 Blood - Peripheral Aerobic Blood Culture - Preliminary No growth in 2 days 09/04/18 17:07 Blood - Peripheral Anaerobic Blood Culture - Preliminary No growth in 2 days 09/04/18 16:22 Catheterized Urine Urine Culture - Preliminary Escherichia coli Imaging: Chest X-Ray 09/02/18 11:48 CONCLUSION: 1. No acute abnormality or significant interval change. Chest X-Ray 09/02/18 14:12 CONCLUSION: Satisfactory support line and tube positioning. Mild left base parenchymal opacity. Face CT 09/02/18 14:20 CONCLUSION: No evidence of acute fracture. Thoracic Aorta CT 09/02/18 14:20 CONCLUSION: 1. Normal thoracic and abdominal aorta 2. Pleural-based airspace disease in both lower lobes. 3. Complex right ovarian cyst. 4. Small amount of free fluid in the cul-de-sac. 5. No evidence of suspicious mass or lymphadenopathy. Chest CTA 09/02/18 14:29 CONCLUSION: 1. No evidence of pulmonary embolism. 2. Areas of atelectasis or mild consolidation posterior lower lobes. Chest X-Ray 09/03/18 04:00 CONCLUSION: Minimal basilar airspace disease, stable. No effusion or pneumothorax. Support apparatus unchanged. Abdomen X-Ray 09/04/18 10:42 CONCLUSION: 1. Dobbhoff tube is coiled in the stomach with tip in the distal body of the stomach. Chest X-Ray 09/04/18 11:15 CONCLUSION: 1. ETT in good position. NGT beyond the GE junction. 2. Small left pleural effusion and associated left lower lung zone airspace disease. Chest X-Ray 09/06/18 06:00 CONCLUSION: Mild basilar airspace disease. Improvement in left base consolidation since September 04. Support apparatus unchanged. Objective Remarks: GENERAL: Chronically ill-appearing young lady. Noted bilateral eyelid lag, currently orotracheally intubated complaining of headache SKIN: Warm and dry. HEAD: Atraumatic. Normocephalic. EYES: Pupils equal and round. No scleral icterus. No injection or drainage. Noted lateral lid lag ENT: No nasal bleeding or discharge. Mucous membranes pink and moist. NECK: Trachea midline. No JVD. CARDIOVASCULAR: Normal rate, regular rhythm. S1, S2. No S4. RESPIRATORY: No accessory muscle use. Clear to auscultation. Breath sounds equal bilaterally. GASTROINTESTINAL: Abdomen soft, non-tender, nondistended. No guarding. MUSCULOSKELETAL: Extremities without clubbing, cyanosis, or edema. No obvious deformities. NEUROLOGICAL: Awake and alert. Moves all 4 extremities 3.5 to 4 out of 5 bilateral upper and lower. Sensation appears intact. Assessment and Plan - Assessment and Plan Plan: Neurologic: Myasthenia gravis exacerbation Migraine headache Chronic opioid use History of substance abuse including cocaine and cannabinoids Chronic benzodiazepine use Neuro checks per ICU Resume home medications when clinically indicated-which include clonazepam 0.5 mg twice daily. Patient states she is no longer taking mirtazapine or paroxetine Hold gabapentin as this can exacerbate myasthenia gravis Neurology consulted-Dr. Dover following Continue IVIG dosing-25 g daily for a total of 125 g TSH 0.598 Increase oxycodone 10 mg every 6 hours as needed for pain scale 8-10 Continue home medication prednisone 10 mg/day - now 60 mg per neuro Pyridostigmine 120 mg 4 times daily Imitrex as needed for migraine headaches Urine toxicity noted positive for cocaine and cannabinoids Lidex and 30 Respiratory: Acute hypoxemic respiratory failure secondary to myasthenia gravis exacerbation PRVC ventilation Ventilator bundle Head of bed at 30 degrees CPAP trials throughout the day. Spontaneous breathing trials when clinically indicated Albuterol/ipratropium aerosols every 4 hours with albuterol aerosols every 2 hours as needed dyspnea Goals 6 hours forced vital capacity >20ml/kg/NIP >[id number] MEP >[id number] 09/02 CT angiogram pulmonary negative for pulmonary embolus Cardiovascular: Maintain map greater than 65 Currently on normal saline at 84 cc an hour. Not requiring antihypertensives and/or vasopressors /renal: applied purewick catheter -- Strict I/Os FEN/GI: Hypokalemia Hypophosphatemia Hypomagnesia Monitor BMP Normal saline 84 cc/hr Maintain tube feeding Jevity 1.5 goal 45 cc an hour Pantoprazole for GI prophylaxis Docusate sodium/senna 1 tablet twice daily for bowel regimen KPhos now. 30 mmol. Heme/ID: Leukocytosis Monitor CBC currently within normal limits. Obtain cultures if clinically indicated Endocrine: Glucose monitoring per ICU -- SSI Prophylaxis: GI Prophylaxis Pantoprazole DVT Prophylaxis -- SCDs/enoxaparin Lines: Peripheral IVs x2 Level 3 follow-up
[2018-09-06] MEDS ORDERED: Albumin Human 25% Inj 100 ML IV.SIG ONE (15:00)
[2018-09-06] MEDS ORDERED: Potassium Phosphate Inj 30 MMOL in Sodium Chlor 0.9% Inj 250 ML IV.SIG ONE (15:00)
[2018-09-06] MEDS: Acetaminophen 325 MG Tablet PO SCH (15:08)
[2018-09-06] MEDS: Sodium Chlor 0.9% Inj 500 ML IV.SIG SCH (15:08)
[2018-09-06] MEDS: Enoxaparin Inj 30 MG/0.3 ML Syringe SQ SCH (15:29)
[2018-09-06] MEDS: IVIG (Immune Globulin) Inj 25 GM in Syringe/Bag 1 EACH IV.SIG SCH (16:16)
[2018-09-06] MEDS: Insulin Detemir Inj 1,000 UNIT/10 ML Vial SQ SCH (20:10)
[2018-09-07] MEDS: Insulin NovoLOG Aspart Correctional Sugar Inj SQ SCH ×4 (00:37→18:16)
[2018-09-07] MEDS: Oral Hygiene Kit OROPHARYNG SCH ×5 (00:37→23:45)
[2018-09-07] MEDS: Sod Chloride 0.9% Inj 1,000 ML IV.CONT SCH ×3 (02:38→21:03)
[2018-09-07] MEDS: Pyridostigmine Bromide 60 MG Tablet PO SCH ×4 (04:34→23:47)
[2018-09-07] MEDS: Chlorhexidine Gluconate 2% 1 Pack (2 Cloths) TOPICAL SCH (05:04)
[2018-09-07 05:05] LABS: Baso % (Auto) 0.3 % (0.0-2.0); Eos % (Auto) 0.2 % (0.0-4.0); Hematocrit 30.8 % (35.0-46.0); Hemoglobin 10.3 gm/dL (11.6-15.3); Lymph # (Auto) 0.9 th/mm3 (1.0-4.8); Lymph % (Auto) 7.5 % (9.0-44.0); Mean Corpuscular HGB Conc 33.4 % (32.0-36.0); Mean Corpuscular Hemoglobin 30.3 pg (27.0-34.0); Mean Corpuscular Volume 90.8 fL (80.0-100.0); Mean Platelet Volume 9.5 fL (7.0-11.0); Mono # (Auto) 0.6 th/mm3 (0.0-0.9); Mono % (Auto) 5.1 % (0.0-8.0); Neut # (Auto) 10.3 th/mm3 (1.8-7.7); Neut % (Auto) 86.9 % (16.0-70.0); Platelet Count 277 th/mm3 (150-450); Red Cell Distribution Width 14.5 % (11.6-17.2); White Blood Count 11.8 th/mm3 (4.0-11.0)
[2018-09-07] MEDS: Artificial Tears Opth Drops 15 ML Bottle EACH EYE SCH ×3 (05:05→21:01)
[2018-09-07 05:30] LABS: Alanine Aminotransferase 15 U/L (10-53); Albumin 2.5 g/dL (3.4-5.0); Alkaline Phosphatase 72 U/L (45-117); Anion Gap 2 meq/L (5-15); Aspartate Aminotransferase 15 U/L (15-37); Blood Urea Nitrogen 6 mg/dL (7-18); Calcium 8.4 mg/dL (8.5-10.1); Carbon Dioxide 26.8 meq/L (21.0-32.0); Chloride 112 meq/L (98-107); Glomerular Filtration Rate Greater Than 89 mL/min (>89); Glucose,Random 126 mg/dL (74-106); Magnesium 1.9 mg/dL (1.5-2.5); Phosphorus 2.2 mg/dL (2.5-4.9); Potassium 3.3 meq/L (3.5-5.1); Sodium 141 meq/L (136-145); Total Protein 8.2 g/dL (6.4-8.2)
[2018-09-07] MEDS: Dexmedetomidine Inj 200 MCG in Sodium Chlor 0.9% Inj 48 ML IV.CONT PRN ×4 (05:48→17:48)
[2018-09-07] MEDS: fentaNYL 10 mcg/mL Premix Drip 2,500 MCG/250 ML BAG IV.SIG PRN ×2 (06:59→15:43)
[2018-09-07] MEDS: Potassium Phosphate Inj 30 MMOL in Sodium Chlor 0.9% Inj 250 ML IV.SIG PRN (09:18)
[2018-09-07] MEDS: Chlorhexidine 0.12% Oral Kit 15 ML UDC OROPHARYNG SCH ×2 (09:18→21:00)
[2018-09-07] MEDS: Butalbital/APAP/Caff 50/325/40 MG Tablet PO PRN ×2 (09:18→23:44)
[2018-09-07] MEDS: clonazePAM 0.5 MG Tablet PO SCH ×3 (09:18→17:46)
[2018-09-07] MEDS: predniSONE Liq 5 MG/5 ML UDC PO SCH (09:18)
[2018-09-07] MEDS: Senna/Docusate Sodium 8.6/50 MG Tablet PO SCH ×2 (09:19→21:01)
[2018-09-07] MEDS: Pantoprazole Inj 40 MG Vial IV.PUSH SCH (09:19)
[2018-09-07] MEDS ORDERED: ALPRAZolam 0.5 MG Tablet PO ONE (13:45)
--- NOTE | 2018-09-07 15:52 | P.PNCC ---
Subjective Subjective Remarks/Hospital Course: 09/03: No acute events overnight the patient remains mechanically ventilated per patient received the first dose of IVIG yesterday the patient is to receive the remaining doses over the next 4 days pyridostigmine initiated this a.m. On sedation vacation the patient is alert awake responding to commands.. Ledezma catheter reinserted secondary to urinary retention and there required use of pyridostigmine secondary to medical condition. Urine toxicity resulted back yesterday polysubstance abuse. The patient was initiated on CPAP trials, will continue on CPAP trials however the patient is noted to have significant bulbar weakness with noted eyelid lag, we will continue to closely monitor ,no plans for extubation at this time. Patient continually complaining of generalized pain, oxycodone increased to 10 mg every 6 hours as needed. 09/04: Patient was extubated and will monitor closely with every 6 hours forced vital capacity/MIP/mep. Noted significant bulbar weakness with lid lag bilaterally and facial droop. Difficulty swallowing noted currently. Complaining of headache. 09/05: Reintubated yesterday afternoon after 2 hours. Initiated tube feeds. Complains of headache. Not controlled with Imitrex. 09/06: Afebrile. C/O MERAZ- no relief w/fioricet. KPhos now. Subjective 09/07: Noted MRSA in sputum x2, E. coli in urine. Penicillin allergy. Appears stronger in less lid lag today. Objective Vital Signs / I&O: Vital Signs 09/06/18 16:00 09/06/18 16:16 09/06/18 19:35 Temperature 97.2 F L Pulse Rate 47 L 69 Respiratory Rate 16 16 Blood Pressure 100/61 100/61 Pulse Oximetry 100 100 09/06/18 19:52 09/06/18 20:00 09/06/18 20:39 Temperature 98.4 F Pulse Rate 53 L 49 L Respiratory Rate 16 19 18 Blood Pressure 120/64 Pulse Oximetry 94 L 09/06/18 22:09 09/06/18 22:35 09/06/18 23:46 Temperature Pulse Rate 55 L Respiratory Rate 16 22 Blood Pressure Pulse Oximetry 99 09/06/18 23:58 09/07/18 00:00 09/07/18 01:30 Temperature 98.4 F Pulse Rate 63 Respiratory Rate 18 19 20 Blood Pressure 128/70 Pulse Oximetry 94 L 99 09/07/18 04:00 09/07/18 04:03 09/07/18 04:10 Temperature 98.3 F Pulse Rate 49 L 54 L Respiratory Rate 19 16 16 Blood Pressure 124/71 Pulse Oximetry 94 L 09/07/18 04:50 09/07/18 05:04 09/07/18 07:50 Temperature Pulse Rate 80 Respiratory Rate 16 16 20 Blood Pressure Pulse Oximetry 98 09/07/18 07:51 09/07/18 10:43 09/07/18 10:44 Temperature Pulse Rate Respiratory Rate 14 14 14 Blood Pressure Pulse Oximetry 100 09/07/18 11:00 09/07/18 15:07 Temperature Pulse Rate 78 78 Respiratory Rate 5 L 14 Blood Pressure Pulse Oximetry 100 100 Intake & Output 09/06/18 09/07/18 09/07/18 18:59 06:59 18:59 Intake Total 2322 / 2322 1993 / 1993 1350 / 1350 Output Total 2250 / 2250 1100 / 1100 Balance 72 / 72 894 / 894 1350 / 1350 Weight 66.9 kg Intake: IV 1850 / 1850 1550 / 1550 1350 / 1350 Precedex Inj 200 MCG In NS Inj 100 / 100 50 / 50 100 / 100 48 ML @ 0.2 MCG/KG/HR 3.04 mls/ hr IV.CONT TITRATE PRN Rx#: [id number] NS Inj 1,000 ML @ 84 mls/hr IV. 1000 / 1000 1000 / 1000 1000 / 1000 CONT .[id number] [facility] Rx#:[id number] fentaNYL 10 mcg/mL Premix Drip 250 / 250 500 / 500 250 / 250 2,500 mcg In 250 ml @ 50 MCG/HR 5 mls/hr IV.SIG TITRATE PRN Rx #:[id number] D5W Inj 500 ML @ 30 mls/hr 500 / 500 OTHER Q24H [facility] Rx#:[id number] Tube Feeding 472 / 472 384 / 384 Tube Irrigant 60 / 60 Output: Urine Amount (Catheter) 2250 / 2250 1100 / 1100 Indwelling Urethral Catheter 2250 / 2250 1100 / 1100 Other: Date of Last Bowel Movement 09/06/18 09/06/18 09/06/18 # Bowel Movements 2 Result Diagrams: 09/07/18 04:45 09/07/18 04:45 Other Results: Microbiology 09/06/18 12:00 Sputum - Endotracheal Gram Stain - Final 09/06/18 12:00 Sputum - Endotracheal Sputum Culture - Preliminary S. aureus MRSA 09/04/18 16:55 Blood - Peripheral Aerobic Blood Culture - Preliminary No growth in 3 days 09/04/18 16:55 Blood - Peripheral Anaerobic Blood Culture - Preliminary No growth in 3 days 09/04/18 17:07 Blood - Peripheral Aerobic Blood Culture - Preliminary No growth in 3 days 09/04/18 17:07 Blood - Peripheral Anaerobic Blood Culture - Preliminary No growth in 3 days 09/04/18 16:22 Catheterized Urine Urine Culture - Final Escherichia coli 09/04/18 16:22 Sputum - Endotracheal Gram Stain - Final 09/04/18 16:22 Sputum - Endotracheal Sputum Culture - Final S. aureus MRSA Imaging: Chest X-Ray 09/02/18 11:48 CONCLUSION: 1. No acute abnormality or significant interval change. Chest X-Ray 09/02/18 14:12 CONCLUSION: Satisfactory support line and tube positioning. Mild left base parenchymal opacity. Face CT 09/02/18 14:20 CONCLUSION: No evidence of acute fracture. Thoracic Aorta CT 09/02/18 14:20 CONCLUSION: 1. Normal thoracic and abdominal aorta 2. Pleural-based airspace disease in both lower lobes. 3. Complex right ovarian cyst. 4. Small amount of free fluid in the cul-de-sac. 5. No evidence of suspicious mass or lymphadenopathy. Chest CTA 09/02/18 14:29 CONCLUSION: 1. No evidence of pulmonary embolism. 2. Areas of atelectasis or mild consolidation posterior lower lobes. Chest X-Ray 09/03/18 04:00 CONCLUSION: Minimal basilar airspace disease, stable. No effusion or pneumothorax. Support apparatus unchanged. Abdomen X-Ray 09/04/18 10:42 CONCLUSION: 1. Dobbhoff tube is coiled in the stomach with tip in the distal body of the stomach. Chest X-Ray 09/04/18 11:15 CONCLUSION: 1. ETT in good position. NGT beyond the GE junction. 2. Small left pleural effusion and associated left lower lung zone airspace disease. Chest X-Ray 09/06/18 06:00 CONCLUSION: Mild basilar airspace disease. Improvement in left base consolidation since September 04. Support apparatus unchanged. Objective Remarks: GENERAL: Chronically ill-appearing young lady. Noted much improved bilateral eyelid lag, currently orotracheally intubated SKIN: Warm and dry. HEAD: Atraumatic. Normocephalic. EYES: Pupils equal and round. No scleral icterus. No injection or drainage. Noted lateral lid lag ENT: No nasal bleeding or discharge. Mucous membranes pink and moist. NECK: Trachea midline. No JVD. CARDIOVASCULAR: Normal rate, regular rhythm. S1, S2. No S4. RESPIRATORY: No accessory muscle use. Clear to auscultation. Breath sounds equal bilaterally. GASTROINTESTINAL: Abdomen soft, non-tender, nondistended. No guarding. MUSCULOSKELETAL: Extremities without clubbing, cyanosis, or edema. No obvious deformities. NEUROLOGICAL: Awake and alert. Moves all 4 extremities 4 out of 5 bilateral upper and lower. Sensation appears intact. Assessment and Plan - Assessment and Plan Plan: Neurologic: Myasthenia gravis exacerbation Migraine headache Chronic opioid use History of substance abuse including cocaine and cannabinoids Chronic benzodiazepine use Neuro checks per ICU Resume home medications when clinically indicated-which include clonazepam 0.5 mg twice daily. Patient states she is no longer taking mirtazapine or paroxetine Hold gabapentin as this can exacerbate myasthenia gravis Neurology consulted-Dr. Dover following Continue IVIG dosing-25 g daily for a total of 125 g TSH 0.598 Increase oxycodone 10 mg every 6 hours as needed for pain scale 8-10 Continue home medication prednisone 10 mg/day - now 60 mg per neuro Pyridostigmine 120 mg 4 times daily Imitrex as needed for migraine headaches Urine toxicity noted positive for cocaine and cannabinoids Lidex and 30 Respiratory: Acute hypoxemic respiratory failure secondary to myasthenia gravis exacerbation PRVC ventilation Ventilator bundle Head of bed at 30 degrees CPAP trials throughout the day. Spontaneous breathing trials when clinically indicated Albuterol/ipratropium aerosols every 4 hours with albuterol aerosols every 2 hours as needed dyspnea Goals 6 hours forced vital capacity >20ml/kg/NIP >[id number] MEP >[id number] 09/02 CT angiogram pulmonary negative for pulmonary embolus Cardiovascular: Maintain map greater than 65 Currently on normal saline at 84 cc an hour. Discontinue 08/30. Not requiring antihypertensives and/or vasopressors /renal: applied purewick catheter -- Strict I/Os FEN/GI: Monitor BMP Normal saline 84 cc/hr Maintain tube feeding vital 1.5 1.5 goal 45 cc an hour Pantoprazole for GI prophylaxis Docusate sodium/senna 1 tablet twice daily for bowel regimen KPhos now. 30 mmol. Heme/ID: Leukocytosis Anemia E. coli UTI MRSA sputum Monitor CBC daily. Follow trends. 09/04/27 sputum MRSA positive 09/04 urine positive for E. coli Infectious disease consultation. With my sucrose twice. Endocrine: Glucose monitoring per ICU -- SSI Prophylaxis: GI Prophylaxis Pantoprazole DVT Prophylaxis -- SCDs/enoxaparin Lines: Peripheral IVs x2 Level 3 follow-up
[2018-09-07] MEDS: Enoxaparin Inj 30 MG/0.3 ML Syringe SQ SCH (17:49)
--- NOTE | 2018-09-07 19:54 | P.CONID ---
History of Present Illness Service: ID Consult date: 09/07/18 Requesting Physician: Chirag Diaz Reason for Consult: Assistance with management of myasthenia gravis patient with E. coli UTI an Primary Care Provider: UNKNOWN History of Present Illness: 43 yo female rwithmyasthenia gravis cocain abuse admitted with myastenia gravis crisis and acute resp failure On mech vent Now with infiltrates and growing MRSA in sputum starte on zyvox also on azactam for E coli UTI fever up to 101 2 days ago, leukocytosis, both improved PMFSH - History History Provided By: Medical Record - Medical History Medical History: Medical History (Last Updated 09/06/18 @ 07:38 by Jaci Mack) Chronic low back pain (Chronic) Degenerative disc disease (Chronic) Anxiety (Acute) Depressed (Chronic) Myasthenia gravis (Acute) History of MRSA infection Onset Date: ~09/04/18 - Surgical History Surgical History: Surgical History (Last Reviewed 09/05/18 @ 09:10 by Zuleyma Gunn) History of thymectomy (Chronic) History of hip replacement (Acute) Hx of tonsillectomy (Acute) Hx of tubal ligation (Acute) - Tobacco History Second Hand Smoke Exposure: No Smoking Status: Former smoker Tobacco Type: Cigarettes Packs Per Day: 2 Years Smoked: 20 - Alcohol History How Often Do You Have a Drink Containing Alcohol: Never - Substance Use History Substance History: No History of Abuse - Travel History Recent Travel in the [place] Within the Last 8 Weeks: No Recent Travel Out of the Country Within the Last 8 Weeks: No - Immunization History Tetanus Immunization: Unsure Medications and Allergies Active Medications: Active Medications Acetaminophen (Tylenol) 650 mg PO Q6H PRN PRN Reason: PAIN 1-5 AND/OR FEVER >101F Last Admin: 09/04/18 21:16 Dose: 650 mg Acetaminophen/Butalbital/Caffeine (Fioricet 50-325-40) 1 tab PO Q6H PRN PRN Reason: Breakthrough migraine Last Admin: 09/07/18 09:18 Dose: 1 tab Al Hydroxide/Mg Hydroxide (Milk Of Magnesia Liq) 30 ml PO Q12H PRN PRN Reason: Mild Constipation Albuterol (Albuterol Neb (Prn)) 2.5 mg NEB Q2HR NEB PRN PRN Reason: SHORTNESS OF BREATH/WHEEZING Albuterol (Duoneb Neb (Gómez)) 1 ampul NEB Q4HR NEB [facility] Last Admin: 09/07/18 15:06 Dose: 1 ampul Artificial Tears (Tears Naturale Opth Drops) 1 drop EACH EYE Q8H [facility] Last Admin: 09/07/18 12:50 Dose: 1 drop Bisacodyl (Dulcolax Supp) 10 mg RECTAL DAILY PRN PRN Reason: SEVERE CONSITIPATION Chlorhexidine Gluconate (Chlorhexidine 2% Cloth) 3 pack TOPICAL DAILY@0400 [facility] Stop: 09/08/18 03:59 Last Admin: 09/07/18 05:04 Dose: 3 pack Chlorhexidine Gluconate (Chlorhexidine 2% Cloth) 3 pack TOPICAL DAILY@0400 PRN PRN Reason: Extra cloth needed Stop: 09/08/18 03:59 Chlorhexidine Gluconate (Peridex 0.12% Oral Kit) 15 ml OROPHARYNG BID@0800, 2000 [facility] Last Admin: 09/07/18 09:18 Dose: 15 ml Clonazepam (Klonopin) 0.5 mg PO TID [facility] Last Admin: 09/07/18 17:46 Dose: 0.5 mg Dextrose (D50w Vial) 50 ml IV.PUSH UNSCH PRN PRN Reason: PER HYPOGLYCEMIA PROTOCOL Enoxaparin Sodium (Lovenox Inj) 30 mg SQ Q24H [facility] Last Admin: 09/07/18 17:49 Dose: 30 mg Glucagon (Glucagon Inj) 1 mg OTHER PRN PRN PRN Reason: for Hypoglycemia Protocol Magnesium Sulfate 4 gm/ Sodium (Chloride) 100 mls @ 50 mls/hr IV.SIG UNSCH PRN PRN Reason: For Magnesium 0.9 - 1.1 mg/dL Magnesium Sulfate 2 gm/ Sodium (Chloride) 100 mls @ 50 mls/hr IV.SIG UNSCH PRN PRN Reason: For Magnesium 1.2 - 1.6 mg/dL Sodium Chloride (Ns Inj) 1,000 mls @ 84 mls/hr IV.CONT .[id number] [facility] Last Admin: 09/07/18 12:50 Dose: 84 mls/hr Potassium Chloride (Kcl 20 Meq Premix Inj) 20 meq in 100 mls @ 50 mls/hr IV.SIG Q2H PRN PRN Reason: For Potassium 3.3 - 3.5 mEq/L Potassium Chloride (Kcl 40 Meq Premix Inj) 40 meq in 100 mls @ 25 mls/hr IV.SIG UNSCH PRN PRN Reason: For Potassium 3.3 - 3.5 mEq/L Potassium Chloride (Kcl 20 Meq Premix Inj) 20 meq in 100 mls @ 50 mls/hr IV.SIG Q2H PRN PRN Reason: For Potassium 2.8 - 3.2 mEq/L Potassium Phosphate 30 mmol/ (Sodium Chloride) 260 mls @ 42 mls/hr IV.SIG UNSCH PRN PRN Reason: SEE LABEL COMMENTS Last Admin: 09/07/18 09:18 Dose: 42 mls/hr Sodium Phosphate 30 mmol/ (Sodium Chloride) 260 mls @ 42 mls/hr IV.SIG UNSCH PRN PRN Reason: For Phosphorus < 2.5 mg/dL Potassium Chloride (Kcl 40 Meq Premix Inj) 40 meq in 100 mls @ 25 mls/hr IV.SIG Q2H PRN PRN Reason: For Potassium 2.8 - 3.2 mEq/L Propofol (Diprivan 1000 Mg/100 Ml Inj) 1,000 mg in 100 mls @ 1.824 mls/hr IV.CONT TITRATE PRN; Protocol PRN Reason: Per Protocol Last Titration: 09/05/18 10:39 Dose: Infused Fentanyl (Fentanyl 10 Mcg/Ml Premix Drip) 2,500 mcg in 250 mls @ 5 mls/hr IV.SIG TITRATE PRN; Protocol PRN Reason: Per Protocol Last Admin: 09/07/18 15:43 Dose: 250 mcg/hr, 25 mls/hr Dexmedetomidine HCl 200 mcg/ (Sodium Chloride) 50 mls @ 3.04 mls/hr IV.CONT TITRATE PRN; Protocol PRN Reason: Per Protocol Last Admin: 09/07/18 17:48 Dose: 1.2 mcg/kg/hr, 18.24 mls/hr Aztreonam 1,000 mg/ Sodium (Chloride) 100 mls @ 200 mls/hr IV.SIG Q8H [facility] Last Admin: 09/07/18 17:49 Dose: 200 mls/hr Linezolid (Zyvox 600 Mg Premix) 300 mls @ 300 mls/hr IV.SIG Q12H [facility] Last Admin: 09/07/18 17:46 Dose: 300 mls/hr Insulin Aspart (Novolog Insulin Correctional Sugar Inj) 0 unit SQ Q6HR [facility]; Protocol Last Admin: 09/07/18 18:16 Dose: 2 unit Insulin Detemir (Levemir Inj) 4 unit SQ [facility] Last Admin: 09/06/18 20:10 Dose: 4 unit Lactulose (Lactulose Liq) 30 ml PO DAILY PRN PRN Reason: SEVERE CONSITIPATION Magnesium Oxide (Mag-Ox) 800 mg PO UNSCH PRN PRN Reason: For Magnesium 1.2 - 1.6 mg/dL Miscellaneous Medication () 1 each OROPHARYNG 0000,0400,1200,1600 [facility] Last Admin: 09/07/18 16:45 Dose: 1 each Ondansetron HCl (Zofran Inj) 4 mg IV.PUSH Q6H PRN PRN Reason: NAUSEA OR VOMITING Last Admin: 09/05/18 06:49 Dose: 4 mg Oxycodone HCl (Roxicodone Intensol Liq) 10 mg PO Q6H PRN PRN Reason: PAIN SCALE 6 TO 10 Last Admin: 09/07/18 09:19 Dose: 10 mg Pantoprazole Sodium (Protonix Inj) 40 mg IV.PUSH DAILY [facility] Last Admin: 09/07/18 09:19 Dose: 40 mg Potassium Bicarb/Potassium Chloride (K-Lyte Cl Eff) 50 meq PO UNSCH PRN PRN Reason: For Potassium 3.3 - 3.5 mEq/L Last Admin: 09/05/18 10:47 Dose: 50 meq Potassium Phosphate (K-Phos Original) 2,000 mg PO Q4H PRN PRN Reason: Phosphorus Less Than 2.5 mg/dL Potassium Phosphate (K-Phos Original) 2,000 mg PO UNSCH PRN PRN Reason: SEE LABEL COMMENTS Prednisone (Deltasone Liq) 60 mg PO DAILY [facility] Last Admin: 09/07/18 09:18 Dose: 60 mg Pyridostigmine [place] (Mestinon) 120 mg PO Q6H [facility] Last Admin: 09/07/18 17:46 Dose: 120 mg Senna/Docusate Sodium (Bonita-Colace) 1 tab PO BID [facility] Last Admin: 09/07/18 09:19 Dose: Not Given Sennosides (Senokot) 17.2 mg PO Q12H PRN PRN Reason: Moderate Constipation Sodium Chloride (Ns Flush) 2 ml IV.FLUSH BID GÓMEZ Last Admin: 09/07/18 09:19 Dose: 2 ml Sodium Chloride (Ns Flush) 2 ml IV.FLUSH PRN PRN PRN Reason: FLUSH AFTER USING IV ACCESS Last Admin: 09/04/18 09:36 Dose: 2 ml Sumatriptan Succinate (Imitrex) 50 mg PO Q4H PRN PRN Reason: HEADACHE PAIN Last Admin: 09/07/18 04:34 Dose: 50 mg Allergies Allergy/AdvReac Type Severity Reaction Status Date / Time penicillin G Allergy Severe Anaphylaxis Verified 09/02/18 12:30 promethazine AdvReac Severe NAUSEOUS Verified 09/02/18 12:30 Home Medications Medication Instructions Recorded Confirmed Type clonazepam [Klonopin] 0.5 mg PO TID 04/18/18 09/02/18 History hydrocodone-acetaminophen 1 tab PO Q6H PRN 09/02/18 09/02/18 History paroxetine HCl 120 mg PO TID 09/02/18 09/02/18 History prednisone 10 mg PO DAILY 09/02/18 09/02/18 History pyridostigmine bromide 120 mg PO TID 09/02/18 09/02/18 History Exam Vital signs: Vital Signs 09/06/18 19:52 09/06/18 20:00 09/06/18 20:39 Temperature 98.4 F Pulse Rate 53 L 49 L Respiratory Rate 16 19 18 Blood Pressure 120/64 Pulse Oximetry 94 L 09/06/18 22:09 09/06/18 22:35 09/06/18 23:46 Temperature Pulse Rate 55 L Respiratory Rate 16 22 22 Blood Pressure Pulse Oximetry 99 09/06/18 23:58 09/07/18 00:00 09/07/18 01:30 Temperature 98.4 F Pulse Rate 63 Respiratory Rate 18 19 20 Blood Pressure 128/70 Pulse Oximetry 94 L 99 09/07/18 04:00 09/07/18 04:03 09/07/18 04:10 Temperature 98.3 F Pulse Rate 49 L 54 L Respiratory Rate 19 16 16 Blood Pressure 124/71 Pulse Oximetry 94 L 09/07/18 04:50 09/07/18 05:04 09/07/18 07:50 Temperature Pulse Rate 80 Respiratory Rate 16 16 20 Blood Pressure Pulse Oximetry 98 09/07/18 07:51 09/07/18 08:00 09/07/18 08:37 Temperature 98.2 F Pulse Rate 51 L 56 L Respiratory Rate 14 26 H 21 Blood Pressure 146/77 H Pulse Oximetry 100 100 100 09/07/18 09:00 09/07/18 10:00 09/07/18 10:21 Temperature Pulse Rate 55 L 60 59 L Respiratory Rate 15 15 20 Blood Pressure 121/63 Pulse Oximetry 100 100 100 09/07/18 10:43 09/07/18 10:44 09/07/18 11:00 Temperature Pulse Rate 58 L Respiratory Rate 14 14 16 Blood Pressure 114/59 L Pulse Oximetry 100 09/07/18 12:00 09/07/18 12:57 09/07/18 13:00 Temperature 97.8 F Pulse Rate 56 L 59 L 57 L Respiratory Rate 18 21 21 Blood Pressure 122/72 122/72 123/67 Pulse Oximetry 100 100 100 09/07/18 14:00 09/07/18 15:00 09/07/18 15:07 Temperature Pulse Rate 57 L 45 L 78 Respiratory Rate 13 10 L 14 Blood Pressure 115/67 127/73 Pulse Oximetry 100 100 100 09/07/18 16:00 09/07/18 17:00 Temperature 98.1 F Pulse Rate 48 L 43 L Respiratory Rate 9 L 9 L Blood Pressure 126/72 133/75 Pulse Oximetry 100 100 Intake & Output 09/07/18 09/07/18 09/08/18 06:59 18:59 06:59 Intake Total 1993 / 1993 1925 / 1925 Output Total 1100 / 1100 1750 / 1750 Balance 894 / 894 175 / 175 Weight 66.9 kg Intake: IV 1550 / 1550 1400 / 1400 Precedex Inj 200 MCG In NS Inj 50 / 50 150 / 150 48 ML @ 0.2 MCG/KG/HR 3.04 mls/ hr IV.CONT TITRATE PRN Rx#: [id number] NS Inj 1,000 ML @ 84 mls/hr IV. 1000 / 1000 1000 / 1000 CONT .[id number] [facility] Rx#:[id number] fentaNYL 10 mcg/mL Premix Drip 500 / 500 250 / 250 2,500 mcg In 250 ml @ 50 MCG/HR 5 mls/hr IV.SIG TITRATE PRN Rx #:[id number] Tube Feeding 384 / 384 425 / 425 Tube Irrigant 60 / 60 Water Bolus Amount 100 / 100 Output: Urine Amount (Catheter) 1099 1750 / 1750 Indwelling Urethral Catheter 1099 1750 / 1750 Other: Date of Last Bowel Movement 09/06/18 09/06/18 # Bowel Movements 0 - Constitutional no acute distress, average body habitus - Routine HEENT Exam Head: Present: normocephalic, atraumatic Eye: Present: PERRL. Absent: EOMI, normal accommodation ENT: Present: mucous membranes moist, oropharynx clear - Routine Neck Exam Present: supple. Absent: JVD - Routine Respiratory Exam Present: decreased breath sounds, CTA bilaterally - Routine Cardiovascular Exam Present: RRR, S1, S2. Absent: murmur, gallop - Routine Abdominal Exam Present: soft, normoactive bowel sounds. Absent: tenderness, distended, organomegaly, mass - Routine Extremities Exam Absent: cyanosis, clubbing, edema - Routine Skin Exam Present: intact, dry, warm - Routine Neurological Exam Present: alert, oriented X3, sensory deficit, motor deficit. Absent: CN II-XII intact - Routine Psychiatric Exam Present: depressed, anxious. Absent: cooperative Results - Labs CBC & Chem 7: 09/07/18 04:45 09/07/18 04:45 Labs: Laboratory Results - last 24 hr 09/06/18 09/06/18 09/07/18 20:08 23:45 04:45 WBC 11.8 H RBC 3.40 L Hgb 10.3 L Hct 30.8 L MCV 90.8 MCH 30.3 MCHC 33.4 RDW 14.5 Plt Count 277 MPV 9.5 Neut % (Auto) 86.9 H Lymph % (Auto) 7.5 L Chambers % (Auto) 5.1 Eos % (Auto) 0.2 Baso % (Auto) 0.3 Neut # (Auto) 10.3 H Lymph # (Auto) 0.9 L Chambers # (Auto) 0.6 Eos # (Auto) 0.0 Baso # (Auto) 0.0 WBC Differential . Differential Comment Auto diff final Sodium Potassium Chloride Carbon Dioxide Anion Gap BUN Creatinine Estimated GFR POC Glucose 243 H 163 H Random Glucose Calcium Phosphorus Magnesium Total Bilirubin AST ALT Alkaline Phosphatase Total Protein Albumin 09/07/18 09/07/18 09/07/18 04:45 05:07 12:48 WBC RBC Hgb Hct MCV MCH MCHC RDW Plt Count MPV Neut % (Auto) Lymph % (Auto) Chambers % (Auto) Eos % (Auto) Baso % (Auto) Neut # (Auto) Lymph # (Auto) Chambers # (Auto) Eos # (Auto) Baso # (Auto) WBC Differential Differential Comment Sodium 141 Potassium 3.3 L Chloride 112 H Carbon Dioxide 26.8 Anion Gap 2 L BUN 6 L Creatinine 0.45 L Estimated GFR Greater than 89 POC Glucose 122 H 178 H Random Glucose 126 H Calcium 8.4 L Phosphorus 2.2 L D Magnesium 1.9 Total Bilirubin 0.2 AST 15 ALT 15 Alkaline Phosphatase 72 Total Protein 8.2 Albumin 2.5 L 09/07/18 18:14 WBC RBC Hgb Hct MCV MCH MCHC RDW Plt Count MPV Neut % (Auto) Lymph % (Auto) Chambers % (Auto) Eos % (Auto) Baso % (Auto) Neut # (Auto) Lymph # (Auto) Chambers # (Auto) Eos # (Auto) Baso # (Auto) WBC Differential Differential Comment Sodium Potassium Chloride Carbon Dioxide Anion Gap BUN Creatinine Estimated GFR POC Glucose 199 H Random Glucose Calcium Phosphorus Magnesium Total Bilirubin AST ALT Alkaline Phosphatase Total Protein Albumin Assessment and Plan - Plan Myasthenia gravis crisis Acute VDRF MRSA PNA E coli UTI cont zyvox for MRSA - OK to use in MG cont azactam for UTI dw RN
[2018-09-07] MEDS ORDERED: Dexmedetomidine Inj 1,000 MCG in Sodium Chlor 0.9% Inj 240 ML IV.CONT PRN (20:47)
[2018-09-07] MEDS: Insulin Detemir Inj 1,000 UNIT/10 ML Vial SQ SCH (21:00)
[2018-09-08] MEDS: Insulin NovoLOG Aspart Correctional Sugar Inj SQ SCH ×4 (00:35→17:37)
[2018-09-08] MEDS: fentaNYL 10 mcg/mL Premix Drip 2,500 MCG/250 ML BAG IV.SIG PRN (01:34)
[2018-09-08] MEDS: Sod Chloride 0.9% Inj 1,000 ML IV.CONT SCH (01:36)
[2018-09-08 04:30] LABS: Baso % (Auto) 0.2 % (0.0-2.0); Eos % (Auto) 0.3 % (0.0-4.0); Hematocrit 31.1 % (35.0-46.0); Hemoglobin 10.4 gm/dL (11.6-15.3); Lymph # (Auto) 1.1 th/mm3 (1.0-4.8); Lymph % (Auto) 11.3 % (9.0-44.0); Mean Corpuscular HGB Conc 33.4 % (32.0-36.0); Mono # (Auto) 0.7 th/mm3 (0.0-0.9); Mono % (Auto) 7.1 % (0.0-8.0); Neut # (Auto) 7.7 th/mm3 (1.8-7.7); Neut % (Auto) 81.1 % (16.0-70.0); Platelet Count 311 th/mm3 (150-450); Red Blood Count 3.46 mil/mm3 (4.00-5.30); Red Cell Distribution Width 14.9 % (11.6-17.2); White Blood Count 9.5 th/mm3 (4.0-11.0)
[2018-09-08 04:46] LABS: Albumin 2.3 g/dL (3.4-5.0); Anion Gap 5 meq/L (5-15); Aspartate Aminotransferase 15 U/L (15-37); Blood Urea Nitrogen 6 mg/dL (7-18); Calcium 8.4 mg/dL (8.5-10.1); Carbon Dioxide 26.7 meq/L (21.0-32.0); Chloride 109 meq/L (98-107); Glomerular Filtration Rate Greater Than 89 mL/min (>89); Glucose,Random 147 mg/dL (74-106); Magnesium 1.8 mg/dL (1.5-2.5); Sodium 141 meq/L (136-145)
[2018-09-08 04:50] LABS: Alanine Aminotransferase 18 U/L (10-53); Alkaline Phosphatase 58 U/L (45-117); Phosphorus 2.6 mg/dL (2.5-4.9); Total Protein 7.6 g/dL (6.4-8.2)
--- NOTE | 2018-09-08 05:25 | XR ---
EXAM DATE: 09/08/2018 4:27 AM EST AGE/SEX: 43 years / Female INDICATIONS: Shortness of breath, possible pulmonary disease. CLINICAL DATA: This is the patient's subsequent encounter. Patient reports that signs and symptoms h ave been present for 1 week and indicates a pain score of Nonresponsive. MEDICAL/SURGICAL HISTORY: . Myasthenia Gravis. Tubal ligation. COMPARISON: [facility], CHEST 1V SINGLE AP, 09/06/2018. . FINDINGS: Endotracheal tube in good position. NG enters stomach. [id number] in superior vena cava. Bilateral mostly basilar airspace consolidation. No pneumothorax. CONCLUSION: Basilar airspace disease slightly increased from September 06. Support apparatus unchanged. Electronically signed by: Horace Lind MD 09/08/2018 5:23 AM EST
[2018-09-08] MEDS: Butalbital/APAP/Caff 50/325/40 MG Tablet PO PRN ×3 (05:37→23:13)
[2018-09-08] MEDS: Pyridostigmine Bromide 60 MG Tablet PO SCH ×4 (05:37→23:09)
[2018-09-08] MEDS: Oral Hygiene Kit OROPHARYNG SCH ×3 (05:37→15:16)
[2018-09-08] MEDS: Artificial Tears Opth Drops 15 ML Bottle EACH EYE SCH ×3 (05:38→23:09)
--- NOTE | 2018-09-08 07:55 | P.PNCC ---
Subjective Subjective Remarks/Hospital Course: 09/03: No acute events overnight the patient remains mechanically ventilated per patient received the first dose of IVIG yesterday the patient is to receive the remaining doses over the next 4 days pyridostigmine initiated this a.m. On sedation vacation the patient is alert awake responding to commands.. Ledezma catheter reinserted secondary to urinary retention and there required use of pyridostigmine secondary to medical condition. Urine toxicity resulted back yesterday polysubstance abuse. The patient was initiated on CPAP trials, will continue on CPAP trials however the patient is noted to have significant bulbar weakness with noted eyelid lag, we will continue to closely monitor ,no plans for extubation at this time. Patient continually complaining of generalized pain, oxycodone increased to 10 mg every 6 hours as needed. 09/04: Patient was extubated and will monitor closely with every 6 hours forced vital capacity/MIP/mep. Noted significant bulbar weakness with lid lag bilaterally and facial droop. Difficulty swallowing noted currently. Complaining of headache. 09/05: Reintubated yesterday afternoon after 2 hours. Initiated tube feeds. Complains of headache. Not controlled with Imitrex. 09/06: Afebrile. C/O MERAZ- no relief w/fioricet. KPhos now. 09/07: Noted MRSA in sputum x2, E. coli in urine. Penicillin allergy. Appears stronger in less lid lag today. Subjective 09/08: Feeling of anxiety and "red eyes" this a.m. Continues to have headache. Strength appears much better will attempt spontaneous breathing trials today and attempt extubate. Left lower leg. Left facial droop. Objective Vital Signs / I&O: Vital Signs 09/07/18 07:50 09/07/18 07:51 09/07/18 08:00 Temperature 98.2 F Pulse Rate 80 51 L Respiratory Rate 20 14 26 H Blood Pressure Pulse Oximetry 100 100 09/07/18 08:37 09/07/18 09:00 09/07/18 10:00 Temperature Pulse Rate 56 L 55 L 60 Respiratory Rate 21 15 15 Blood Pressure 146/77 H Pulse Oximetry 100 100 100 09/07/18 10:21 09/07/18 10:43 09/07/18 10:44 Temperature Pulse Rate 59 L Respiratory Rate 20 14 14 Blood Pressure 121/63 Pulse Oximetry 100 09/07/18 11:00 11/28/18 12:00 09/07/18 12:57 Temperature 97.8 F Pulse Rate 58 L 56 L 59 L Respiratory Rate 16 18 21 Blood Pressure 114/59 L 122/72 122/72 Pulse Oximetry 100 100 100 09/07/18 13:00 09/07/18 14:00 09/07/18 15:00 Temperature Pulse Rate 57 L 57 L 45 L Respiratory Rate 21 13 10 L Blood Pressure 123/67 115/67 127/73 Pulse Oximetry 100 100 100 09/07/18 15:07 09/07/18 16:00 09/07/18 17:00 Temperature 98.1 F Pulse Rate 78 48 L 43 L Respiratory Rate 14 9 L 9 L Blood Pressure 126/72 133/75 Pulse Oximetry 100 100 100 09/07/18 20:00 09/07/18 20:50 09/07/18 21:31 Temperature 98.5 F Pulse Rate 46 L 44 L Respiratory Rate 12 16 20 Blood Pressure 126/69 Pulse Oximetry 100 100 09/07/18 23:41 09/08/18 00:00 09/08/18 00:35 Temperature 98.5 F Pulse Rate 42 L 46 L Respiratory Rate 16 12 16 Blood Pressure 126/69 Pulse Oximetry 100 09/08/18 00:55 09/08/18 02:04 09/08/18 03:36 Temperature Pulse Rate Respiratory Rate 16 15 18 Blood Pressure Pulse Oximetry 100 09/08/18 03:37 09/08/18 04:00 09/08/18 06:07 Temperature 98.4 F Pulse Rate 48 L 40 L Respiratory Rate 16 16 15 Blood Pressure 143/85 H Pulse Oximetry 100 100 Intake & Output 09/07/18 09/08/18 09/08/18 18:59 06:59 18:59 Intake Total 2325 / 2325 3046 / 3046 Output Total 1750 / 1750 1600 / 1600 Balance 575 / 575 1446 / 1446 Weight 66.7 kg Intake: IV 1800 / 1800 2610 / 2610 Precedex Inj 200 MCG In NS Inj 150 / 150 48 ML @ 0.2 MCG/KG/HR 3.04 mls/ hr IV.CONT TITRATE PRN Rx#: [id number] NS Inj 1,000 ML @ 84 mls/hr IV. 1000 / 1000 1999 / 2000 CONT .[id number] Rx#:[id number] Azactam Inj 1,000 MG In NS Inj 100 / 100 100 / 100 100 ML @ 200 mls/hr IV.SIG Q8H [facility] Rx#:[id number] Zyvox 600 mg Premix 300 ML @ 300 / 300 300 mls/hr IV.SIG Q12H [facility] Rx#: [id number] Potassium Phosphate Inj 30 MMOL 260 / 260 In NS Inj 250 ML @ 42 mls/hr IV.SIG UNSCH PRN Rx#:[id number] fentaNYL 10 mcg/mL Premix Drip 250 / 250 250 / 250 2,500 mcg In 250 ml @ 50 MCG/HR 5 mls/hr IV.SIG TITRATE PRN Rx #:[id number] Tube Feeding 425 / 425 376 / 376 Tube Irrigant 60 / 60 Water Bolus Amount 100 / 100 Output: Urine 0 / 0 Urine Amount (Catheter) 1750 / 1750 1600 / 1600 Indwelling Urethral Catheter 1750 / 1750 1600 / 1600 Other: # Voids 0 Date of Last Bowel Movement 09/06/18 09/06/18 # Bowel Movements 0 0 Result Diagrams: 09/08/18 03:45 09/08/18 03:45 Other Results: Microbiology 09/06/18 12:00 Sputum - Endotracheal Gram Stain - Final 09/06/18 12:00 Sputum - Endotracheal Sputum Culture - Preliminary S. aureus MRSA 09/04/18 16:55 Blood - Peripheral Aerobic Blood Culture - Preliminary No growth in 3 days 09/04/18 16:55 Blood - Peripheral Anaerobic Blood Culture - Preliminary No growth in 3 days 09/04/18 17:07 Blood - Peripheral Aerobic Blood Culture - Preliminary No growth in 3 days 09/04/18 17:07 Blood - Peripheral Anaerobic Blood Culture - Preliminary No growth in 3 days 09/04/18 16:22 Catheterized Urine Urine Culture - Final Escherichia coli 09/04/18 16:22 Sputum - Endotracheal Gram Stain - Final 09/04/18 16:22 Sputum - Endotracheal Sputum Culture - Final S. aureus MRSA Imaging: Chest X-Ray 09/02/18 11:48 CONCLUSION: 1. No acute abnormality or significant interval change. Chest X-Ray 09/02/18 14:12 CONCLUSION: Satisfactory support line and tube positioning. Mild left base parenchymal opacity. Face CT 09/02/18 14:20 CONCLUSION: No evidence of acute fracture. Thoracic Aorta CT 09/02/18 14:20 CONCLUSION: 1. Normal thoracic and abdominal aorta 2. Pleural-based airspace disease in both lower lobes. 3. Complex right ovarian cyst. 4. Small amount of free fluid in the cul-de-sac. 5. No evidence of suspicious mass or lymphadenopathy. Chest CTA 09/02/18 14:29 CONCLUSION: 1. No evidence of pulmonary embolism. 2. Areas of atelectasis or mild consolidation posterior lower lobes. Chest X-Ray 09/03/18 04:00 CONCLUSION: Minimal basilar airspace disease, stable. No effusion or pneumothorax. Support apparatus unchanged. Abdomen X-Ray 09/04/18 10:42 CONCLUSION: 1. Dobbhoff tube is coiled in the stomach with tip in the distal body of the stomach. Chest X-Ray 09/04/18 11:15 CONCLUSION: 1. ETT in good position. NGT beyond the GE junction. 2. Small left pleural effusion and associated left lower lung zone airspace disease. Chest X-Ray 09/06/18 06:00 CONCLUSION: Mild basilar airspace disease. Improvement in left base consolidation since September 04. Support apparatus unchanged. Chest X-Ray 09/08/18 06:00 CONCLUSION: Basilar airspace disease slightly increased from September 06. Support apparatus unchanged. Objective Remarks: GENERAL: Chronically ill-appearing young lady. She is currently orotracheally intubated SKIN: Warm and dry. HEAD: Atraumatic. Normocephalic. EYES: Pupils equal and round. There is some redness noted surrounding the eyes. Some scleral edema. No scleral icterus. No injection or drainage. Noted much improved bilateral lid lag ENT: No nasal bleeding or discharge. Mucous membranes pink and moist. NECK: Trachea midline. No JVD. CARDIOVASCULAR: Normal rate, regular rhythm. S1, S2. No S4. RESPIRATORY: No accessory muscle use. Clear to auscultation. Breath sounds equal bilaterally. GASTROINTESTINAL: Abdomen soft, non-tender, nondistended. No guarding. MUSCULOSKELETAL: Extremities without clubbing, cyanosis, or edema. No obvious deformities. NEUROLOGICAL: Awake and alert. Moves all 4 extremities 4 out of 5 bilateral upper and lower. Sensation appears intact. Assessment and Plan - Assessment and Plan Plan: Neurologic: Myasthenia gravis exacerbation Migraine headache Chronic opioid use History of substance abuse including cocaine and cannabinoids Chronic benzodiazepine use Red eyes Neuro checks per ICU Resume home medications when clinically indicated-which include clonazepam 0.5 mg twice daily. Patient states she is no longer taking mirtazapine or paroxetine Hold gabapentin as this can exacerbate myasthenia gravis Neurology consulted-Dr. Dover following Continue IVIG dosing-25 g daily for a total of 100g TSH 0.598 Increase oxycodone 10 mg every 6 hours as needed for pain scale 8-10 Continue home medication prednisone 10 mg/day - now 60 mg per neuro Pyridostigmine 120 mg 4 times daily Imitrex as needed for migraine headaches Urine toxicity noted positive for cocaine and cannabinoids Currently on fentanyl drip at 350 royer grams an hour Clear Eyes 1 drop every 4 hours as needed Respiratory: Acute hypoxemic respiratory failure secondary to myasthenia gravis exacerbation PRVC ventilation Ventilator bundle Head of bed at 30 degrees CPAP trials throughout the day. Spontaneous breathing trials when clinically indicated Albuterol/ipratropium aerosols every 4 hours with albuterol aerosols every 2 hours as needed dyspnea Goals 6 hours forced vital capacity >20ml/kg/NIP >[id number] MEP >[id number] 09/02 CT angiogram pulmonary negative for pulmonary embolus Cardiovascular: Maintain map greater than 65 Currently on normal saline at 84 cc an hour. Discontinue 09/08. Not requiring antihypertensives and/or vasopressors /renal: applied purewick catheter -- Strict I/Os FEN/GI: Hypopotassemia Monitor BMP Normal saline 84 cc/hr continue 09/08. 1 dose of furosemide Maintain tube feeding vital 1.5 1.5 goal 45 cc an hour Pantoprazole for GI prophylaxis Docusate sodium/senna 1 tablet twice daily for bowel regimen 40 mEq IV potassium x1 now. 50 mEq d on the tube now. 2 g mag sulfate IV times now. Heme/ID: Normocytic anemia E. coli UTI MRSA sputum Monitor CBC daily. Follow trends. 09/04/27 sputum MRSA positive 09/04 urine positive for E. coli Infectious disease consultation. Currently on Linezolid and aztreonam day #2 Endocrine: Glucose monitoring per ICU -- SSI Prophylaxis: GI Prophylaxis Pantoprazole DVT Prophylaxis -- SCDs/enoxaparin Lines: Peripheral IVs x2 Level 3 follow-up
[2018-09-08] MEDS: clonazePAM 0.5 MG Tablet PO SCH ×3 (08:05→17:34)
[2018-09-08] MEDS: predniSONE Liq 5 MG/5 ML UDC PO SCH (08:06)
[2018-09-08] MEDS: Chlorhexidine 0.12% Oral Kit 15 ML UDC OROPHARYNG SCH ×2 (08:06→22:13)
[2018-09-08] MEDS: Pantoprazole Inj 40 MG Vial IV.PUSH SCH (08:07)
[2018-09-08] MEDS: Senna/Docusate Sodium 8.6/50 MG Tablet PO SCH ×2 (08:07→23:08)
[2018-09-08] MEDS ORDERED: Potassium Chloride 25 MEQ Effervescent Tablet PO ONE (09:00)
[2018-09-08] MEDS: Potassium Chlor 10 mEq Premix 10 MEQ/100 ML PIGGYBACK IV.SIG SCH ×3 (09:07→11:16)
--- NOTE | 2018-09-08 09:50 | P.PNNEU ---
Subjective Active Medications: Active Medications Acetaminophen (Tylenol) 650 mg PO Q6H PRN PRN Reason: PAIN 1-5 AND/OR FEVER >101F Last Admin: 09/04/18 21:16 Dose: 650 mg Acetaminophen/Butalbital/Caffeine (Fioricet 50-325-40) 1 tab PO Q6H PRN PRN Reason: Breakthrough migraine Last Admin: 09/08/18 05:37 Dose: 1 tab Al Hydroxide/Mg Hydroxide (Milk Of Magnrashard [place]) 30 ml PO Q12H PRN PRN Reason: Mild Constipation Albuterol (Albuterol Neb (Prn)) 2.5 mg NEB Q2HR NEB PRN PRN Reason: SHORTNESS OF BREATH/WHEEZING Albuterol (Duoneb Neb (Gómez)) 1 ampul NEB Q4HR NEB [facility] Last Admin: 09/08/18 08:29 Dose: 1 ampul Artificial Tears (Tears Naturale Opth Drops) 1 drop EACH EYE Q8H [facility] Last Admin: 09/08/18 05:38 Dose: 1 drop Bisacodyl (Dulcolax Supp) 10 mg RECTAL DAILY PRN PRN Reason: SEVERE CONSITIPATION Chlorhexidine Gluconate (Peridex 0.12% Oral Kit) 15 ml OROPHARYNG BID@0800, 2000 [facility] Last Admin: 09/08/18 08:06 Dose: 15 ml Clonazepam (Klonopin) 0.5 mg PO TID [facility] Last Admin: 09/08/18 08:05 Dose: 0.5 mg Dextrose (D50w Vial) 50 ml IV.PUSH UNSCH PRN PRN Reason: PER HYPOGLYCEMIA PROTOCOL Enoxaparin Sodium (Lovenox Inj) 30 mg SQ Q24H [facility] Last Admin: 09/07/18 17:49 Dose: 30 mg Glucagon (Glucagon Inj) 1 mg OTHER PRN PRN PRN Reason: for Hypoglycemia Protocol Magnesium Sulfate 4 gm/ Sodium (Chloride) 100 mls @ 50 mls/hr IV.SIG UNSCH PRN PRN Reason: For Magnesium 0.9 - 1.1 mg/dL Magnesium Sulfate 2 gm/ Sodium (Chloride) 100 mls @ 50 mls/hr IV.SIG UNSCH PRN PRN Reason: For Magnesium 1.2 - 1.6 mg/dL Potassium Chloride (Kcl 20 Meq Premix Inj) 20 meq in 100 mls @ 50 mls/hr IV.SIG Q2H PRN PRN Reason: For Potassium 3.3 - 3.5 mEq/L Potassium Chloride (Kcl 40 Meq Premix Inj) 40 meq in 100 mls @ 25 mls/hr IV.SIG UNSCH PRN PRN Reason: For Potassium 3.3 - 3.5 mEq/L Potassium Chloride (Kcl 20 Meq Premix Inj) 20 meq in 100 mls @ 50 mls/hr IV.SIG Q2H PRN PRN Reason: For Potassium 2.8 - 3.2 mEq/L Potassium Phosphate 30 mmol/ (Sodium Chloride) 260 mls @ 42 mls/hr IV.SIG UNSCH PRN PRN Reason: SEE LABEL COMMENTS Last Infusion: 09/08/18 06:11 Dose: Infused Sodium Phosphate 30 mmol/ (Sodium Chloride) 260 mls @ 42 mls/hr IV.SIG UNSCH PRN PRN Reason: For Phosphorus < 2.5 mg/dL Potassium Chloride (Kcl 40 Meq Premix Inj) 40 meq in 100 mls @ 25 mls/hr IV.SIG Q2H PRN PRN Reason: For Potassium 2.8 - 3.2 mEq/L Propofol (Diprivan 1000 Mg/100 Ml Inj) 1,000 mg in 100 mls @ 1.824 mls/hr IV.CONT TITRATE PRN; Protocol PRN Reason: Per Protocol Last Titration: 09/05/18 10:39 Dose: Infused Fentanyl (Fentanyl 10 Mcg/Ml Premix Drip) 2,500 mcg in 250 mls @ 5 mls/hr IV.SIG TITRATE PRN; Protocol PRN Reason: Per Protocol Last Admin: 09/08/18 01:34 Dose: 250 mcg/hr, 25 mls/hr Aztreonam 1,000 mg/ Sodium (Chloride) 100 mls @ 200 mls/hr IV.SIG Q8H [facility] Last Infusion: 09/08/18 06:10 Dose: Infused Linezolid (Zyvox 600 Mg Premix) 300 mls @ 300 mls/hr IV.SIG Q12H [facility] Last Admin: 09/08/18 05:38 Dose: 300 mls/hr Dexmedetomidine HCl 1,000 mcg/ (Sodium Chloride) 250 mls @ 3.04 mls/hr IV.CONT TITRATE PRN; Protocol PRN Reason: Per Protocol Last Admin: 09/07/18 21:32 Dose: 0.4 mcg/kg/hr, 6.08 mls/hr Magnesium Sulfate 2 gm/ Sodium (Chloride) 100 mls @ 50 mls/hr IV.SIG ONCE ONE Stop: 09/08/18 11:59 Potassium Chloride (Kcl 10 Meq Premix Inj) 10 meq in 100 mls @ 100 mls/hr IV.SIG Q1H [facility] Stop: 09/08/18 11:59 Last Admin: 09/08/18 09:07 Dose: 100 mls/hr Insulin Aspart (Novolog Insulin Correctional Sugar Inj) 0 unit SQ Q6HR [facility]; Protocol Last Admin: 09/08/18 06:02 Dose: Not Given Insulin Detemir (Levemir Inj) 4 unit SQ HS [facility] Last Admin: 09/07/18 21:00 Dose: 4 unit Lactulose (Lactulose Liq) 30 ml PO DAILY PRN PRN Reason: SEVERE CONSITIPATION Magnesium Oxide (Mag-Ox) 800 mg PO UNSCH PRN PRN Reason: For Magnesium 1.2 - 1.6 mg/dL Miscellaneous Medication () 1 each OROPHARYNG 0000,0400,1200,1600 [facility] Last Admin: 09/08/18 05:37 Dose: 1 each Naphazoline HCl (Clear Eyes Redness Relief 0.012% Opth Drops) 1 drop EACH EYE Q4H PRN PRN Reason: red eyes Ondansetron HCl (Zofran Inj) 4 mg IV.PUSH Q6H PRN PRN Reason: NAUSEA OR VOMITING Last Admin: 09/08/18 05:50 Dose: 4 mg Oxycodone HCl (Roxicodone Intensol Liq) 10 mg PO Q6H PRN PRN Reason: PAIN SCALE 6 TO 10 Last Admin: 09/08/18 09:13 Dose: 10 mg Pantoprazole Sodium (Protonix Inj) 40 mg IV.PUSH DAILY [facility] Last Admin: 09/08/18 08:07 Dose: 40 mg Potassium Bicarb/Potassium Chloride (K-Lyte Cl Eff) 50 meq PO UNSCH PRN PRN Reason: For Potassium 3.3 - 3.5 mEq/L Last Admin: 09/05/18 10:47 Dose: 50 meq Potassium Phosphate (K-Phos Original) 2,000 mg PO Q4H PRN PRN Reason: Phosphorus Less Than 2.5 mg/dL Potassium Phosphate (K-Phos Original) 2,000 mg PO UNSCH PRN PRN Reason: SEE LABEL COMMENTS Prednisone (Deltasone Liq) 60 mg PO DAILY [facility] Last Admin: 09/08/18 08:06 Dose: 60 mg Pyridostigmine [place] (Mestinon) 120 mg PO Q6H [facility] Last Admin: 09/08/18 05:37 Dose: 120 mg Senna/Docusate Sodium (Bonita-Colace) 1 tab PO BID [facility] Last Admin: 09/08/18 08:07 Dose: Not Given Sennosides (Senokot) 17.2 mg PO Q12H PRN PRN Reason: Moderate Constipation Sodium Chloride (Ns Flush) 2 ml IV.FLUSH BID [facility] Last Admin: 09/08/18 08:07 Dose: 2 ml Sodium Chloride (Ns Flush) 2 ml IV.FLUSH PRN PRN PRN Reason: FLUSH AFTER USING IV ACCESS Last Admin: 09/04/18 09:36 Dose: 2 ml Sumatriptan Succinate (Imitrex) 50 mg PO Q4H PRN PRN Reason: HEADACHE PAIN Last Admin: 09/07/18 04:34 Dose: 50 mg Allergies/Adverse Reactions: Allergies Allergy/AdvReac Type Severity Reaction Status Date / Time penicillin G Allergy Severe Anaphylaxis Verified 09/02/18 12:30 promethazine AdvReac Severe NAUSEOUS Verified 09/02/18 12:30 Physical Exam Vital signs: Vital Signs 09/07/18 10:00 09/07/18 10:21 09/07/18 10:43 Temperature Pulse Rate 60 59 L Respiratory Rate 15 20 14 Blood Pressure 121/63 Pulse Oximetry 100 100 09/07/18 10:44 09/07/18 11:00 09/07/18 12:00 Temperature 97.8 F Pulse Rate 58 L 56 L Respiratory Rate 14 16 18 Blood Pressure 114/59 L 122/72 Pulse Oximetry 100 100 09/07/18 12:57 09/07/18 13:00 09/07/18 14:00 Temperature Pulse Rate 59 L 57 L 57 L Respiratory Rate 21 21 13 Blood Pressure 122/72 123/67 115/67 Pulse Oximetry 100 100 100 09/07/18 15:00 09/07/18 15:07 09/07/18 16:00 Temperature 98.1 F Pulse Rate 45 L 78 48 L Respiratory Rate 10 L 14 9 L Blood Pressure 127/73 126/72 Pulse Oximetry 100 100 100 09/07/18 17:00 09/07/18 20:00 09/07/18 20:50 Temperature 98.5 F Pulse Rate 43 L 46 L 44 L Respiratory Rate 9 L 12 16 Blood Pressure 133/75 126/69 Pulse Oximetry 100 100 100 09/07/18 21:31 09/07/18 23:41 09/08/18 00:00 Temperature 98.5 F Pulse Rate 42 L 46 L Respiratory Rate 20 16 12 Blood Pressure 126/69 Pulse Oximetry 100 09/08/18 00:35 09/08/18 00:55 09/08/18 02:04 Temperature Pulse Rate Respiratory Rate 16 16 15 Blood Pressure Pulse Oximetry 100 09/08/18 03:36 09/08/18 03:37 09/08/18 04:00 Temperature 98.4 F Pulse Rate 48 L 40 L Respiratory Rate 18 16 16 Blood Pressure 143/85 H Pulse Oximetry 100 100 09/08/18 06:07 09/08/18 08:29 Temperature Pulse Rate Respiratory Rate 15 16 Blood Pressure Pulse Oximetry Intake & Output 09/07/18 09/08/18 09/08/18 18:59 06:59 18:59 Intake Total 2325 / 2325 3046 / 3046 Output Total 1750 / 1750 1600 / 1600 Balance 575 / 575 1446 / 1446 Weight 66.7 kg Intake: IV 1800 / 1800 2610 / 2610 Precedex Inj 200 MCG In NS Inj 150 / 150 48 ML @ 0.2 MCG/KG/HR 3.04 mls/ hr IV.CONT TITRATE PRN Rx#: [id number] NS Inj 1,000 ML @ 84 mls/hr IV. 1000 / 1000 1999 / 1999 CONT .[id number] [facility] Rx#:[id number] Azactam Inj 1,000 MG In NS Inj 100 / 100 100 / 100 100 ML @ 200 mls/hr IV.SIG Q8H [facility] Rx#:[id number] Zyvox 600 mg Premix 300 ML @ 300 / 300 300 mls/hr IV.SIG Q12H [facility] Rx#: [id number] Potassium Phosphate Inj 30 MMOL 260 / 260 In NS Inj 250 ML @ 42 mls/hr IV.SIG UNSCH PRN Rx#:[id number] fentaNYL 10 mcg/mL Premix Drip 250 / 250 250 / 250 2,500 mcg In 250 ml @ 50 MCG/HR 5 mls/hr IV.SIG TITRATE PRN Rx #:[id number] Tube Feeding 425 / 425 376 / 376 Tube Irrigant 60 / 60 Water Bolus Amount 100 / 100 Output: Urine 0 / 0 Urine Amount (Catheter) 1750 / 1750 1600 / 1600 Indwelling Urethral Catheter 1750 / 1750 1600 / 1600 Other: # Voids 0 Date of Last Bowel Movement 09/06/18 09/06/18 # Bowel Movements 0 0 Narrative: eye closure now 4+/5 limb strength nl - Urinary Catheter Management Indwelling Urethral Catheter Cath placed during this visit: yes, but has since been removed by the nurse Reason for continuing: Acute urinary retention Insertion date: 09/03/18 Insertion time: 15:30 Removal date: 09/03/18 Removal time: 12:00 Straight Cath placed during this visit: no Objective Laboratory Results - last 24 hr 09/07/18 09/07/18 09/07/18 12:48 18:14 21:11 WBC RBC Hgb Hct MCV MCH MCHC RDW Plt Count MPV Neut % (Auto) Lymph % (Auto) [place] % (Auto) Eos % (Auto) Baso % (Auto) Neut # (Auto) Lymph # (Auto) [place] # (Auto) Eos # (Auto) Baso # (Auto) WBC Differential Differential Comment Sodium Potassium Chloride Carbon Dioxide Anion Gap BUN Creatinine Estimated GFR POC Glucose 178 H 199 H 173 H Random Glucose Calcium Phosphorus Magnesium Total Bilirubin AST ALT Alkaline Phosphatase Total Protein Albumin 09/07/18 09/08/18 09/08/18 23:43 03:45 03:45 WBC 9.5 RBC 3.46 L Hgb 10.4 L Hct 31.1 L MCV 90.0 MCH 30.0 MCHC 33.4 RDW 14.9 Plt Count 311 MPV 10.0 Neut % (Auto) 81.1 H Lymph % (Auto) 11.3 [place] % (Auto) 7.1 Eos % (Auto) 0.3 Baso % (Auto) 0.2 Neut # (Auto) 7.7 Lymph # (Auto) 1.1 [place] # (Auto) 0.7 Eos # (Auto) 0.0 Baso # (Auto) 0.0 WBC Differential . Differential Comment Auto diff final Sodium 141 Potassium 3.0 L Chloride 109 H Carbon Dioxide 26.7 Anion Gap 5 BUN 6 L Creatinine 0.39 L Estimated GFR Greater than 89 POC Glucose 167 H Random Glucose 147 H Calcium 8.4 L Phosphorus 2.6 Magnesium 1.8 Total Bilirubin 0.2 AST 15 ALT 18 Alkaline Phosphatase 58 Total Protein 7.6 D Albumin 2.3 L 09/08/18 05:35 WBC RBC Hgb Hct MCV MCH MCHC RDW Plt Count MPV Neut % (Auto) Lymph % (Auto) [place] % (Auto) Eos % (Auto) Baso % (Auto) Neut # (Auto) Lymph # (Auto) [place] # (Auto) Eos # (Auto) Baso # (Auto) WBC Differential Differential Comment Sodium Potassium Chloride Carbon Dioxide Anion Gap BUN Creatinine Estimated GFR POC Glucose 123 H Random Glucose Calcium Phosphorus Magnesium Total Bilirubin AST ALT Alkaline Phosphatase Total Protein Albumin Microbiology 09/06/18 12:00 Gram Stain - Final Sputum - Endotracheal Sputum Culture - Preliminary S. aureus MRSA 09/04/18 16:55 Aerobic Blood Culture - Preliminary Blood - Peripheral No growth in 3 days Anaerobic Blood Culture - Preliminary No growth in 3 days 09/04/18 17:07 Aerobic Blood Culture - Preliminary Blood - Peripheral No growth in 3 days Anaerobic Blood Culture - Preliminary No growth in 3 days 09/04/18 16:22 Urine Culture - Final Catheterized Urine Escherichia coli Review/Management - Review/Management Plan: imp high aspiration risk make sure she gets her mestinon full dose as per home may need dobhoff ivig day 3 09/05/18 not getting any benefit from ivig so far inc pred to 60 a day mestinon 120 q 6 will consider new med out 09/06/18 maybe a lbit better on pred 60 last day of ivig if not better by may do pex she will think about new med but not an acute option now 09/08/18 stronger prob from pred sp ivig getting extubated now meningococcal vaccine orfdered for hopeful soliris us in two weeks o/p
[2018-09-08] MEDS ORDERED: Magnesium Sulfate Inj 2 GM in Sodium Chlor 0.9% Inj 96 ML IV.SIG ONE (10:00)
[2018-09-08] MEDS: Naphazoline 0.012% Opth Drops 15 ML Bottle EACH EYE PRN ×2 (10:10→13:11)
[2018-09-08] MEDS: ALPRAZolam 0.5 MG Tablet PO PRN ×3 (11:44→23:25)
[2018-09-08] MEDS: Enoxaparin Inj 30 MG/0.3 ML Syringe SQ SCH (15:17)
[2018-09-09] MEDS: Insulin Detemir Inj 1,000 UNIT/10 ML Vial SQ SCH ×2 (01:24→21:29)
[2018-09-09] MEDS: Insulin NovoLOG Aspart Correctional Sugar Inj SQ SCH ×4 (01:25→20:09)
[2018-09-09] MEDS: Oral Hygiene Kit OROPHARYNG SCH ×5 (01:26→20:08)
[2018-09-09 04:57] LABS: Baso # (Auto) 0.1 th/mm3 (0.0-0.2); Baso % (Auto) 0.6 % (0.0-2.0); Eos # (Auto) 0.1 th/mm3 (0.0-0.4); Eos % (Auto) 0.9 % (0.0-4.0); Hematocrit 33.8 % (35.0-46.0); Hemoglobin 11.3 gm/dL (11.6-15.3); Lymph # (Auto) 1.9 th/mm3 (1.0-4.8); Mean Corpuscular HGB Conc 33.5 % (32.0-36.0); Mean Corpuscular Hemoglobin 30.3 pg (27.0-34.0); Mean Corpuscular Volume 90.4 fL (80.0-100.0); Mean Platelet Volume 9.2 fL (7.0-11.0); Mono # (Auto) 1.1 th/mm3 (0.0-0.9); Mono % (Auto) 10.4 % (0.0-8.0); Neut # (Auto) 7.3 th/mm3 (1.8-7.7); Neut % (Auto) 70.1 % (16.0-70.0); Platelet Count 442 th/mm3 (150-450); Red Blood Count 3.74 mil/mm3 (4.00-5.30); Red Cell Distribution Width 14.7 % (11.6-17.2); White Blood Count 10.4 th/mm3 (4.0-11.0)
[2018-09-09] MEDS: Artificial Tears Opth Drops 15 ML Bottle EACH EYE SCH ×3 (05:27→21:30)
[2018-09-09] MEDS: Pyridostigmine Bromide 60 MG Tablet PO SCH ×4 (05:27→22:02)
[2018-09-09] MEDS: ALPRAZolam 0.5 MG Tablet PO PRN (05:27)
[2018-09-09 05:30] LABS: Alanine Aminotransferase 113 U/L (10-53); Albumin 2.8 g/dL (3.4-5.0); Alkaline Phosphatase 79 U/L (45-117); Anion Gap 3 meq/L (5-15); Aspartate Aminotransferase 82 U/L (15-37); Blood Urea Nitrogen 10 mg/dL (7-18); Calcium 8.9 mg/dL (8.5-10.1); Carbon Dioxide 31.3 meq/L (21.0-32.0); Chloride 106 meq/L (98-107); Glomerular Filtration Rate Greater Than 89 mL/min (>89); Glucose,Random 71 mg/dL (74-106); Magnesium 2.1 mg/dL (1.5-2.5); Phosphorus 3.1 mg/dL (2.5-4.9); Potassium 3.7 meq/L (3.5-5.1); Sodium 140 meq/L (136-145); Total Protein 8.4 g/dL (6.4-8.2)
--- NOTE | 2018-09-09 07:20 | P.PNNEU ---
Subjective Active Medications: Active Medications Acetaminophen (Tylenol) 650 mg PO Q6H PRN PRN Reason: PAIN 1-5 AND/OR FEVER >101F Last Admin: 09/04/18 21:16 Dose: 650 mg Acetaminophen/Butalbital/Caffeine (Fioricet 50-325-40) 1 tab PO Q6H PRN PRN Reason: Breakthrough migraine Last Admin: 09/08/18 23:13 Dose: 1 tab Al Hydroxide/Mg Hydroxide (Milk Of Magnrashard Liq) 30 ml PO Q12H PRN PRN Reason: Mild Constipation Albuterol (Albuterol Neb (Prn)) 2.5 mg NEB Q2HR NEB PRN PRN Reason: SHORTNESS OF BREATH/WHEEZING Albuterol (Duoneb Neb (Ashok)) 1 ampul NEB Q4HR NEB [facility] Last Admin: 09/09/18 04:05 Dose: 1 ampul Artificial Tears (Tears Naturale Opth Drops) 1 drop EACH EYE Q8H [facility] Last Admin: 09/09/18 05:27 Dose: 1 drop Bisacodyl (Dulcolax Supp) 10 mg RECTAL DAILY PRN PRN Reason: SEVERE CONSITIPATION Chlorhexidine Gluconate (Peridex 0.12% Oral Kit) 15 ml OROPHARYNG BID@0800, 2000 [facility] Last Admin: 09/08/18 22:13 Dose: Not Given Clonazepam (Klonopin) 0.5 mg PO TID [facility] Last Admin: 09/08/18 17:34 Dose: 0.5 mg Dextrose (D50w Vial) 50 ml IV.PUSH UNSCH PRN PRN Reason: PER HYPOGLYCEMIA PROTOCOL Enoxaparin Sodium (Lovenox Inj) 30 mg SQ Q24H [facility] Last Admin: 09/08/18 15:17 Dose: 30 mg Glucagon (Glucagon Inj) 1 mg OTHER PRN PRN PRN Reason: for Hypoglycemia Protocol Magnesium Sulfate 4 gm/ Sodium (Chloride) 100 mls @ 50 mls/hr IV.SIG UNSCH PRN PRN Reason: For Magnesium 0.9 - 1.1 mg/dL Magnesium Sulfate 2 gm/ Sodium (Chloride) 100 mls @ 50 mls/hr IV.SIG UNSCH PRN PRN Reason: For Magnesium 1.2 - 1.6 mg/dL Potassium Chloride (Kcl 20 Meq Premix Inj) 20 meq in 100 mls @ 50 mls/hr IV.SIG Q2H PRN PRN Reason: For Potassium 3.3 - 3.5 mEq/L Potassium Chloride (Kcl 40 Meq Premix Inj) 40 meq in 100 mls @ 25 mls/hr IV.SIG UNSCH PRN PRN Reason: For Potassium 3.3 - 3.5 mEq/L Potassium Chloride (Kcl 20 Meq Premix Inj) 20 meq in 100 mls @ 50 mls/hr IV.SIG Q2H PRN PRN Reason: For Potassium 2.8 - 3.2 mEq/L Potassium Phosphate 30 mmol/ (Sodium Chloride) 260 mls @ 42 mls/hr IV.SIG UNSCH PRN PRN Reason: SEE LABEL COMMENTS Last Infusion: 09/08/18 06:11 Dose: Infused Sodium Phosphate 30 mmol/ (Sodium Chloride) 260 mls @ 42 mls/hr IV.SIG UNSCH PRN PRN Reason: For Phosphorus < 2.5 mg/dL Potassium Chloride (Kcl 40 Meq Premix Inj) 40 meq in 100 mls @ 25 mls/hr IV.SIG Q2H PRN PRN Reason: For Potassium 2.8 - 3.2 mEq/L Aztreonam 1,000 mg/ Sodium (Chloride) 100 mls @ 200 mls/hr IV.SIG Q8H [facility] Last Infusion: 09/09/18 04:52 Dose: Infused Linezolid (Zyvox 600 Mg Premix) 300 mls @ 300 mls/hr IV.SIG Q12H [facility] Last Admin: 09/09/18 05:26 Dose: 300 mls/hr Dexmedetomidine HCl 1,000 mcg/ (Sodium Chloride) 250 mls @ 3.04 mls/hr IV.CONT TITRATE PRN; Protocol PRN Reason: Per Protocol Last Titration: 09/08/18 11:22 Dose: Infused Insulin Aspart (Novolog Insulin Correctional Sugar Inj) 0 unit SQ Q6HR [facility]; Protocol Last Admin: 09/09/18 05:27 Dose: Not Given Insulin Detemir (Levemir Inj) 4 unit SQ HS [facility] Last Admin: 09/09/18 01:24 Dose: 4 unit Lactulose (Lactulose Liq) 30 ml PO DAILY PRN PRN Reason: SEVERE CONSITIPATION Magnesium Oxide (Mag-Ox) 800 mg PO UNSCH PRN PRN Reason: For Magnesium 1.2 - 1.6 mg/dL Miscellaneous Medication () 1 each OROPHARYNG 0000,0400,1200,1600 [facility] Last Admin: 09/09/18 04:06 Dose: Not Given Naphazoline HCl (Clear Eyes Redness Relief 0.012% Opth Drops) 1 drop EACH EYE Q4H PRN PRN Reason: red eyes Last Admin: 09/08/18 13:11 Dose: 1 drop Ondansetron HCl (Zofran Inj) 4 mg IV.PUSH Q6H PRN PRN Reason: NAUSEA OR VOMITING Last Admin: 09/09/18 06:38 Dose: 4 mg Oxycodone HCl (Roxicodone Intensol Liq) 10 mg PO Q6H PRN PRN Reason: PAIN SCALE 6 TO 10 Last Admin: 09/09/18 02:05 Dose: 10 mg Pantoprazole Sodium (Protonix Inj) 40 mg IV.PUSH DAILY [facility] Last Admin: 09/08/18 08:07 Dose: 40 mg Potassium Bicarb/Potassium Chloride (K-Lyte Cl Eff) 50 meq PO UNSCH PRN PRN Reason: For Potassium 3.3 - 3.5 mEq/L Last Admin: 09/05/18 10:47 Dose: 50 meq Potassium Phosphate (K-Phos Original) 2,000 mg PO Q4H PRN PRN Reason: Phosphorus Less Than 2.5 mg/dL Potassium Phosphate (K-Phos Original) 2,000 mg PO UNSCH PRN PRN Reason: SEE LABEL COMMENTS Prednisone (Deltasone Liq) 60 mg PO DAILY [facility] Last Admin: 09/08/18 08:06 Dose: 60 mg Pyridostigmine [place] (Mestinon) 120 mg PO Q6H [facility] Last Admin: 09/09/18 05:27 Dose: 120 mg Senna/Docusate Sodium (Bonita-Colace) 1 tab PO BID [facility] Last Admin: 09/08/18 23:08 Dose: Not Given Sennosides (Senokot) 17.2 mg PO Q12H PRN PRN Reason: Moderate Constipation Sodium Chloride (Ns Flush) 2 ml IV.FLUSH BID [facility] Last Admin: 09/08/18 23:08 Dose: 2 ml Sodium Chloride (Ns Flush) 2 ml IV.FLUSH PRN PRN PRN Reason: FLUSH AFTER USING IV ACCESS Last Admin: 09/04/18 09:36 Dose: 2 ml Sumatriptan Succinate (Imitrex) 50 mg PO Q4H PRN PRN Reason: HEADACHE PAIN Last Admin: 09/08/18 23:09 Dose: 50 mg Allergies/Adverse Reactions: Allergies Allergy/AdvReac Type Severity Reaction Status Date / Time penicillin G Allergy Severe Anaphylaxis Verified 09/02/18 12:30 promethazine AdvReac Severe NAUSEOUS Verified 09/02/18 12:30 Physical Exam Vital signs: Vital Signs 09/08/18 08:00 09/08/18 08:29 09/08/18 09:00 Temperature Pulse Rate 52 L 74 Respiratory Rate 24 16 19 Blood Pressure 117/68 Pulse Oximetry 100 100 09/08/18 10:00 09/08/18 11:00 09/08/18 12:00 Temperature 98.1 F Pulse Rate 63 63 81 Respiratory Rate 19 19 25 H Blood Pressure 112/59 L 119/59 L Pulse Oximetry 100 100 95 09/08/18 12:20 09/08/18 13:00 09/08/18 14:00 Temperature Pulse Rate 53 L 70 89 Respiratory Rate 19 22 31 H Blood Pressure 105/62 110/63 109/69 Pulse Oximetry 100 100 95 09/08/18 15:00 09/08/18 15:18 09/08/18 15:28 Temperature Pulse Rate 83 86 79 Respiratory Rate 29 H 23 16 Blood Pressure 115/82 Pulse Oximetry 100 09/08/18 16:00 09/08/18 19:35 09/08/18 20:00 Temperature 98 F 98.3 F Pulse Rate 105 H 77 90 Respiratory Rate 25 H 18 24 Blood Pressure 147/89 H 119/82 Pulse Oximetry 74 L 100 100 09/08/18 22:41 09/09/18 00:00 09/09/18 04:00 Temperature 98.6 F 98.0 F Pulse Rate 101 H 81 88 Respiratory Rate 18 24 20 Blood Pressure 108/56 L 126/68 Pulse Oximetry 100 95 09/09/18 04:05 09/09/18 04:16 Temperature Pulse Rate 78 Respiratory Rate 16 Blood Pressure Pulse Oximetry 96 Intake & Output 09/08/18 09/09/18 09/09/18 18:59 06:59 18:59 Intake Total 2095 / 2095 1150 / 1150 Output Total 7275 / 7275 1000 / 1000 Balance -5180 / -5180 150 / 150 Weight 61.1 kg Intake: IV 1974 400 / 400 Precedex Inj 1,000 MCG In NS 250 / 250 Inj 240 ML @ 0.2 MCG/KG/HR 3.04 mls/hr IV.CONT TITRATE PRN Rx# :[id number] Diprivan 1000 mg/100 ml Inj 1, 0 / 0 000 mg In 100 ml @ 5 MCG/KG/MIN 1.824 mls/hr IV.CONT TITRATE PRN Rx#:[id number] NS Inj 1,000 ML @ 84 mls/hr IV. 800 / 800 CONT .[id number] [facility] Rx#:[id number] Azactam Inj 1,000 MG In NS Inj 200 / 200 100 / 100 100 ML @ 200 mls/hr IV.SIG Q8H [facility] Rx#:[id number] Zyvox 600 mg Premix 300 ML @ 300 / 300 300 / 300 300 mls/hr IV.SIG Q12H [facility] Rx#: [id number] KCl 10 mEq Premix Inj 10 meq In 200 / 200 100 ml @ 100 mls/hr IV.SIG Q1H [facility] Rx#:[id number] fentaNYL 10 mcg/mL Premix Drip 175 / 175 2,500 mcg In 250 ml @ 50 MCG/HR 5 mls/hr IV.SIG TITRATE PRN Rx #:[id number] Oral 750 / 750 Tube Feeding 0 / 0 Water Bolus Amount 120 / 120 Output: Urine 1000 / 1000 Urine Amount (Catheter) 7275 / 7275 Indwelling Urethral Catheter 7275 / 7275 Other: # Incontinent Voids 0 Date of Last Bowel Movement 09/08/18 09/08/18 # Bowel Movements 4 1 # Incontinent Bowel Movements 0 Narrative: off vent eyes 4+/5 a little stronger than yest voice stronger buccal nl - Urinary Catheter Management Indwelling Urethral Catheter Cath placed during this visit: yes, but has since been removed by the nurse Reason for continuing: Acute urinary retention Insertion date: 09/03/18 Insertion time: 15:30 Removal date: 09/03/18 Removal time: 12:00 Straight Cath placed during this visit: no Objective Laboratory Results - last 24 hr 09/08/18 09/08/18 09/08/18 10:30 12:47 17:33 WBC RBC Hgb Hct MCV MCH MCHC RDW Plt Count MPV Neut % (Auto) Lymph % (Auto) [place] % (Auto) Eos % (Auto) Baso % (Auto) Neut # (Auto) Lymph # (Auto) [place] # (Auto) Eos # (Auto) Baso # (Auto) WBC Differential Differential Comment Sodium Potassium Chloride Carbon Dioxide Anion Gap BUN Creatinine Estimated GFR POC Glucose 125 H 180 H Random Glucose Calcium Phosphorus Magnesium Total Bilirubin AST ALT Alkaline Phosphatase Total Protein Albumin Stl C.difficile DNA Amp Positive H St C. diff Tox Epid 027 Negative 09/08/18 09/09/18 09/09/18 23:02 04:15 04:15 WBC 10.4 RBC 3.74 L Hgb 11.3 L Hct 33.8 L MCV 90.4 MCH 30.3 MCHC 33.5 RDW 14.7 Plt Count 442 D MPV 9.2 Neut % (Auto) 70.1 H Lymph % (Auto) 18.0 [place] % (Auto) 10.4 H Eos % (Auto) 0.9 Baso % (Auto) 0.6 Neut # (Auto) 7.3 Lymph # (Auto) 1.9 [place] # (Auto) 1.1 H Eos # (Auto) 0.1 Baso # (Auto) 0.1 WBC Differential . Differential Comment Auto diff final Sodium 140 Potassium 3.7 Chloride 106 Carbon Dioxide 31.3 Anion Gap 3 L BUN 10 Creatinine 0.55 Estimated GFR Greater than 89 POC Glucose 108 Random Glucose 71 L Calcium 8.9 Phosphorus 3.1 Magnesium 2.1 Total Bilirubin 0.3 AST 82 H ALT 113 H Alkaline Phosphatase 79 Total Protein 8.4 H D Albumin 2.8 L Stl C.difficile DNA Amp St C. diff Tox Epid 027 09/09/18 04:37 WBC RBC Hgb Hct MCV MCH MCHC RDW Plt Count MPV Neut % (Auto) Lymph % (Auto) [place] % (Auto) Eos % (Auto) Baso % (Auto) Neut # (Auto) Lymph # (Auto) [place] # (Auto) Eos # (Auto) Baso # (Auto) WBC Differential Differential Comment Sodium Potassium Chloride Carbon Dioxide Anion Gap BUN Creatinine Estimated GFR POC Glucose 89 Random Glucose Calcium Phosphorus Magnesium Total Bilirubin AST ALT Alkaline Phosphatase Total Protein Albumin Stl C.difficile DNA Amp St C. diff Tox Epid 027 Microbiology 09/06/18 12:00 Gram Stain - Final Sputum - Endotracheal Sputum Culture - Final S. aureus MRSA 09/04/18 16:55 Aerobic Blood Culture - Preliminary Blood - Peripheral No growth in 4 days Anaerobic Blood Culture - Preliminary No growth in 4 days 09/04/18 17:07 Aerobic Blood Culture - Preliminary Blood - Peripheral No growth in 4 days Anaerobic Blood Culture - Preliminary No growth in 4 days Review/Management - Review/Management Plan: imp high aspiration risk make sure she gets her mestinon full dose as per home may need dobhoff ivig day 3 09/05/18 not getting any benefit from ivig so far inc pred to 60 a day mestinon 120 q 6 will consider new med out 09/06/18 maybe a lbit better on pred 60 last day of ivig if not better by may do pex she will think about new med but not an acute option now 09/08/18 stronger prob from pred sp ivig getting extubated now meningococcal vaccine orfdered for hopeful soliris us in two weeks o/p 09/09/18 a little better lft inc ? due to abt? on 60 pred and will keep on for about a week then slow taper soliris o/p will look into it oob ok
[2018-09-09] MEDS: Pantoprazole Inj 40 MG Vial IV.PUSH SCH (08:18)
[2018-09-09] MEDS: clonazePAM 0.5 MG Tablet PO SCH ×3 (08:21→20:09)
[2018-09-09] MEDS: Butalbital/APAP/Caff 50/325/40 MG Tablet PO PRN ×2 (08:22→17:46)
[2018-09-09] MEDS: predniSONE 20 MG Tablet PO SCH (11:26)
--- NOTE | 2018-09-09 12:18 | P.PNCC ---
Subjective Subjective Remarks/Hospital Course: 09/03: No acute events overnight the patient remains mechanically ventilated per patient received the first dose of IVIG yesterday the patient is to receive the remaining doses over the next 4 days pyridostigmine initiated this a.m. On sedation vacation the patient is alert awake responding to commands.. Ledezma catheter reinserted secondary to urinary retention and there required use of pyridostigmine secondary to medical condition. Urine toxicity resulted back yesterday polysubstance abuse. The patient was initiated on CPAP trials, will continue on CPAP trials however the patient is noted to have significant bulbar weakness with noted eyelid lag, we will continue to closely monitor ,no plans for extubation at this time. Patient continually complaining of generalized pain, oxycodone increased to 10 mg every 6 hours as needed. 09/04: Patient was extubated and will monitor closely with every 6 hours forced vital capacity/MIP/mep. Noted significant bulbar weakness with lid lag bilaterally and facial droop. Difficulty swallowing noted currently. Complaining of headache. 09/05: Reintubated yesterday afternoon after 2 hours. Initiated tube feeds. Complains of headache. Not controlled with Imitrex. 09/06: Afebrile. C/O MERAZ- no relief w/fioricet. KPhos now. 09/07: Noted MRSA in sputum x2, E. coli in urine. Penicillin allergy. Appears stronger in less lid lag today. Subjective 09/08: Feeling of anxiety and "red eyes" this a.m. Continues to have headache. Strength appears much better will attempt spontaneous breathing trials today and attempt extubate. Left lower leg. Left facial droop. 09/09: Patient not breathing comfortably sitting up in bed good respiratory effort. Strength appears close to normal today Objective Vital Signs / I&O: Vital Signs 09/08/18 12:20 09/08/18 13:00 09/08/18 14:00 Temperature Pulse Rate 53 L 70 89 Respiratory Rate 19 22 31 H Blood Pressure 105/62 110/63 109/69 Pulse Oximetry 100 100 95 09/08/18 15:00 09/08/18 15:18 09/08/18 15:28 Temperature Pulse Rate 83 86 79 Respiratory Rate 29 H 23 16 Blood Pressure 115/82 Pulse Oximetry 100 09/08/18 16:00 09/08/18 19:35 09/08/18 20:00 Temperature 98 F 98.3 F Pulse Rate 105 H 77 90 Respiratory Rate 25 H 18 24 Blood Pressure 147/89 H 119/82 Pulse Oximetry 74 L 100 100 09/08/18 22:41 09/09/18 00:00 09/09/18 04:00 Temperature 98.6 F 98.0 F Pulse Rate 101 H 81 88 Respiratory Rate 18 24 20 Blood Pressure 108/56 L 126/68 Pulse Oximetry 100 95 09/09/18 04:05 09/09/18 04:16 09/09/18 08:00 Temperature Pulse Rate 78 110 H Respiratory Rate 16 Blood Pressure Pulse Oximetry 96 96 Intake & Output 09/08/18 09/09/18 09/09/18 18:59 06:59 18:59 Intake Total 2095 / 2095 1150 / 1150 Output Total 7275 / 7275 1000 / 1000 Balance -5180 / -5180 150 / 150 Weight 61.1 kg Intake: IV 1974 400 / 400 Precedex Inj 1,000 MCG In NS 250 / 250 Inj 240 ML @ 0.2 MCG/KG/HR 3.04 mls/hr IV.CONT TITRATE PRN Rx# :[id number] Diprivan 1000 mg/100 ml Inj 1, 0 / 0 000 mg In 100 ml @ 5 MCG/KG/MIN 1.824 mls/hr IV.CONT TITRATE PRN Rx#:[id number] NS Inj 1,000 ML @ 84 mls/hr IV. 800 / 800 CONT .[id number] [facility] Rx#:[id number] Azactam Inj 1,000 MG In NS Inj 200 / 200 100 / 100 100 ML @ 200 mls/hr IV.SIG Q8H [facility] Rx#:[id number] Zyvox 600 mg Premix 300 ML @ 300 / 300 300 / 300 300 mls/hr IV.SIG Q12H [facility] Rx#: [id number] KCl 10 mEq Premix Inj 10 meq In 200 / 200 100 ml @ 100 mls/hr IV.SIG Q1H [facility] Rx#:[id number] fentaNYL 10 mcg/mL Premix Drip 175 / 175 2,500 mcg In 250 ml @ 50 MCG/HR 5 mls/hr IV.SIG TITRATE PRN Rx #:[id number] Oral 750 / 750 Tube Feeding 0 / 0 Water Bolus Amount 120 / 120 Output: Urine 1000 / 1000 Urine Amount (Catheter) 7275 / 7211 Indwelling Urethral Catheter 2675 / 7222 Other: # Incontinent Voids 0 Date of Last Bowel Movement 09/08/18 09/08/18 09/08/18 # Bowel Movements 4 1 # Incontinent Bowel Movements 0 Result Diagrams: 09/09/18 04:15 09/09/18 04:15 Objective Remarks: GENERAL: Chronically ill-appearing young lady. Alert awake on nasal cannula SKIN: Warm and dry. HEAD: Atraumatic. Normocephalic. EYES: Pupils equal and round. There is some redness noted surrounding the eyes. Some scleral edema. No significant lid lag today ENT: No nasal bleeding or discharge. Mucous membranes pink and moist. NECK: Trachea midline. No JVD. CARDIOVASCULAR: Normal rate, regular rhythm. S1, S2. No S4. RESPIRATORY: No accessory muscle use. Clear to auscultation. Breath sounds equal bilaterally. GASTROINTESTINAL: Abdomen soft, non-tender, nondistended. No guarding. MUSCULOSKELETAL: Extremities without clubbing, cyanosis, or edema. No obvious deformities. NEUROLOGICAL: Awake and alert. Moves all 4 extremities 4 out of 5 bilateral upper and lower. Sensation appears intact. Assessment and Plan - Assessment and Plan Plan: Neurologic: Myasthenia gravis exacerbation Migraine headache Chronic opioid use History of substance abuse including cocaine and cannabinoids Chronic benzodiazepine use Red eyes Neuro checks per ICU. Resume home medications include clonazepam 0.5 mg twice daily. Patient states she is no longer taking mirtazapine or paroxetine Hold gabapentin as this can exacerbate myasthenia gravis Neurology consulted-Dr. Dover following Continue IVIG dosing-25 g daily for a total of 100g TSH 0.598 Oxycodone 10 mg every 6 hours as needed for pain scale 8-10 Continue home medication prednisone 10 mg/day - now 60 mg per neuro Pyridostigmine 120 mg 4 times daily Imitrex as needed for migraine headaches Urine toxicity noted positive for cocaine and cannabinoids Clear Eyes 1 drop every 4 hours as needed Respiratory: Acute hypoxemic respiratory failure secondary to myasthenia gravis exacerbation- resolved Currently on nasal cannula with good oxygen saturation Albuterol/ipratropium aerosols every 4 hours with albuterol aerosols every 2 hours as needed dyspnea Goals 6 hours forced vital capacity >20ml/kg/NIP >[id number] MEP >[id number] 09/02 CT angiogram pulmonary negative for pulmonary embolus Cardiovascular: Maintain map greater than 65 Currently on normal saline at 84 cc an hour. [id number]. Not requiring antihypertensives and/or vasopressors /renal: -- Strict I/Os FEN/GI: Hypopotassemia Monitor BMP 09/08 1 dose of furosemide Pantoprazole for GI prophylaxis Docusate sodium/senna 1 tablet twice daily for bowel regimen 40 mEq IV potassium x1 now. 50 mEq d on the tube now. 2 g mag sulfate IV times now. Heme/ID: Normocytic anemia E. coli UTI MRSA sputum Monitor CBC daily. Follow trends. 09/04/27 sputum MRSA positive 09/04 urine positive for E. coli Infectious disease following. Currently on Linezolid and aztreonam day #3 Endocrine: Glucose monitoring per ICU -- SSI Prophylaxis: GI Prophylaxis Pantoprazole DVT Prophylaxis -- SCDs/enoxaparin Lines: Peripheral IVs x2 Level 2 Consult hospitalist to assume care in a.m. Transferred to [facility] with telemetry
[2018-09-09] MEDS ORDERED: ALPRAZolam 0.5 MG Tablet PO ONE (12:30)
--- NOTE | 2018-09-09 16:35 | P.PNID ---
Subjective Remarks: pt is doing OK extubated + diarrhea + c.diff positive + abd crampsx reportedly 3rd time she has c.diff took oral vanco in the past Antibiotics: azactam linezolid Allergies/Adverse Reactions: Allergies penicillin G Allergy (Severe, Verified 09/02/18 12:30) Anaphylaxis promethazine Adverse Reaction (Severe, Verified 09/02/18 12:30) NAUSEOUS Objective Vital Signs 09/08/18 19:35 09/08/18 20:00 09/08/18 22:41 Temperature 98.3 F Pulse Rate 77 90 101 H Respiratory Rate 18 24 18 Blood Pressure 119/82 Pulse Oximetry 100 100 09/09/18 00:00 09/09/18 04:00 09/09/18 04:05 Temperature 98.6 F 98.0 F Pulse Rate 81 88 78 Respiratory Rate 24 20 16 Blood Pressure 108/56 L 126/68 Pulse Oximetry 100 95 09/09/18 04:16 09/09/18 08:00 09/09/18 12:00 Temperature 98.7 F 98.5 F Pulse Rate 83 80 Respiratory Rate 20 20 Blood Pressure 132/69 Pulse Oximetry 96 95 95 09/09/18 15:31 09/09/18 16:00 Temperature 98.7 F Pulse Rate 68 80 Respiratory Rate 16 20 Blood Pressure Pulse Oximetry 95 Intake & Output 09/08/18 09/09/18 09/09/18 18:59 06:59 18:59 Intake Total 2095 / 2095 1150 / 1150 Output Total 7275 / 7275 1000 / 1000 Balance -5180 / -5180 150 / 150 Weight 61.1 kg Intake: IV 1974 400 / 400 Precedex Inj 1,000 MCG In NS 250 / 250 Inj 240 ML @ 0.2 MCG/KG/HR 3.04 mls/hr IV.CONT TITRATE PRN Rx# :[id number] Diprivan 1000 mg/100 ml Inj 1, 0 / 0 000 mg In 100 ml @ 5 MCG/KG/MIN 1.824 mls/hr IV.CONT TITRATE PRN Rx#:[id number] NS Inj 1,000 ML @ 84 mls/hr IV. 800 / 800 CONT .[id number] [facility] Rx#:[id number] Azactam Inj 1,000 MG In NS Inj 200 / 200 100 / 100 100 ML @ 200 mls/hr IV.SIG Q8H [facility] Rx#:[id number] Zyvox 600 mg Premix 300 ML @ 300 / 300 300 / 300 300 mls/hr IV.SIG Q12H [facility] Rx#: [id number] KCl 10 mEq Premix Inj 10 meq In 200 / 200 100 ml @ 100 mls/hr IV.SIG Q1H [facility] Rx#:[id number] fentaNYL 10 mcg/mL Premix Drip 175 / 175 2,500 mcg In 250 ml @ 50 MCG/HR 5 mls/hr IV.SIG TITRATE PRN Rx #:[id number] Oral 750 / 750 Tube Feeding 0 / 0 Water Bolus Amount 120 / 120 Output: Urine 1000 / 1000 Urine Amount (Catheter) 7275 / 7275 Indwelling Urethral Catheter 7275 / 7275 Other: # Incontinent Voids 0 Date of Last Bowel Movement 09/08/18 09/08/18 09/08/18 # Bowel Movements 4 1 # Incontinent Bowel Movements 0 09/04/18 16:55 Blood - Peripheral Aerobic Blood Culture - Final No growth in 5 days 09/04/18 16:55 Blood - Peripheral Anaerobic Blood Culture - Final No growth in 5 days 09/04/18 17:07 Blood - Peripheral Aerobic Blood Culture - Final No growth in 5 days 09/04/18 17:07 Blood - Peripheral Anaerobic Blood Culture - Final No growth in 5 days 09/06/18 12:00 Sputum - Endotracheal Gram Stain - Final 09/06/18 12:00 Sputum - Endotracheal Sputum Culture - Final S. aureus MRSA 09/04/18 16:22 Catheterized Urine Urine Culture - Final Escherichia coli 09/04/18 16:22 Sputum - Endotracheal Gram Stain - Final 09/04/18 16:22 Sputum - Endotracheal Sputum Culture - Final S. aureus MRSA Lab - Hematology Results 09/08/18 09/09/18 03:45 04:15 WBC 9.5 10.4 RBC 3.46 L 3.74 L Hgb 10.4 L 11.3 L Hct 31.1 L 33.8 L MCV 90.0 90.4 MCH 30.0 30.3 MCHC 33.4 33.5 RDW 14.9 14.7 Plt Count 311 442 D MPV 10.0 9.2 Neut % (Auto) 81.1 H 70.1 H Lymph % (Auto) 11.3 18.0 [place] % (Auto) 7.1 10.4 H Eos % (Auto) 0.3 0.9 Baso % (Auto) 0.2 0.6 Neut # (Auto) 7.7 7.3 Lymph # (Auto) 1.1 1.9 [place] # (Auto) 0.7 1.1 H Eos # (Auto) 0.0 0.1 Baso # (Auto) 0.0 0.1 WBC Differential . . Differential Comment Auto diff final Auto diff final Lab - Chemistry Results 09/07/18 09/07/18 09/07/18 18:14 21:11 23:43 Sodium Potassium Chloride Carbon Dioxide Anion Gap BUN Creatinine Estimated GFR POC Glucose 199 H 173 H 167 H Random Glucose Calcium Phosphorus Magnesium Total Bilirubin AST ALT Alkaline Phosphatase Total Protein Albumin 09/08/18 09/08/18 09/08/18 03:45 05:35 12:47 Sodium 141 Potassium 3.0 L Chloride 109 H Carbon Dioxide 26.7 Anion Gap 5 BUN 6 L Creatinine 0.39 L Estimated GFR Greater than 89 POC Glucose 123 H 125 H Random Glucose 147 H Calcium 8.4 L Phosphorus 2.6 Magnesium 1.8 Total Bilirubin 0.2 AST 15 ALT 18 Alkaline Phosphatase 58 Total Protein 7.6 D Albumin 2.3 L 09/08/18 09/08/18 09/09/18 17:33 23:02 04:15 Sodium 140 Potassium 3.7 Chloride 106 Carbon Dioxide 31.3 Anion Gap 3 L BUN 10 Creatinine 0.55 Estimated GFR Greater than 89 POC Glucose 180 H 108 Random Glucose 71 L Calcium 8.9 Phosphorus 3.1 Magnesium 2.1 Total Bilirubin 0.3 AST 82 H ALT 113 H Alkaline Phosphatase 79 Total Protein 8.4 H D Albumin 2.8 L 09/09/18 09/09/18 04:37 13:48 Sodium Potassium Chloride Carbon Dioxide Anion Gap BUN Creatinine Estimated GFR POC Glucose 89 153 H Random Glucose Calcium Phosphorus Magnesium Total Bilirubin AST ALT Alkaline Phosphatase Total Protein Albumin Imaging: ITS Impressions Face CT 09/02/18 14:20 CONCLUSION: No evidence of acute fracture. Thoracic Aorta CT 09/02/18 14:20 CONCLUSION: 1. Normal thoracic and abdominal aorta 2. Pleural-based airspace disease in both lower lobes. 3. Complex right ovarian cyst. 4. Small amount of free fluid in the cul-de-sac. 5. No evidence of suspicious mass or lymphadenopathy. Chest CTA 09/02/18 14:29 CONCLUSION: 1. No evidence of pulmonary embolism. 2. Areas of atelectasis or mild consolidation posterior lower lobes. Abdomen X-Ray 09/04/18 10:42 CONCLUSION: 1. Dobbhoff tube is coiled in the stomach with tip in the distal body of the stomach. Chest X-Ray 09/08/18 06:00 CONCLUSION: Basilar airspace disease slightly increased from September 06. Support apparatus unchanged. Physical Exam: GENERAL: NAD SKIN: Warm and dry. HEAD: Atraumatic. Normocephalic. EYES: Pupils equal and round. EOM better No scleral icterus. No injection or drainage. ENT: No nasal bleeding or discharge. Mucous membranes pink and moist. NECK: Trachea midline. No JVD. CARDIOVASCULAR: Regular rate and rhythm. RESPIRATORY: No accessory muscle use. Clear to auscultation. Breath sounds equal bilaterally. GASTROINTESTINAL: Abdomen soft, mildly tender, mildly distended w/o guarding or rebound Hepatic and splenic margins not palpable. MUSCULOSKELETAL: Extremities without clubbing, cyanosis, or edema. No obvious deformities. NEUROLOGICAL: Awake and alert. stronger Normal speech. PSYCHIATRIC: Appropriate mood and affect; insight and judgment normal. Assessment and Plan - Plan Myasthenia gravis crisis Acute VDRF MRSA PNA E coli UTI C.diff colitis, 3rd episode cont zyvox for MRSA - OK to use in MG cont azactam for UTI Start oral vancomycin for C.diff dw senior pharmacist Noha. Not a high risk drug in MG pt will need to go on taper after completing startd vanco course She can benefit from stool transplant - that can be done as o/p
--- NOTE | 2018-09-09 16:36 | P.DIET ---
Nutritional Evaluation Type of nutrition evaluation: follow-up Nutrition consult regarding: Tube Feeding Objective - Diagnosis Myasthenia gravis exacerbation - Objective % IBW: 106 (IBW: 56.8kg) Body Weight Used for Calculations: Actual (60.2kg) Energy Needs - Lower Range (kCal/kg): 25 Energy Needs - Upper Range (kCal/kg): 30 Lower Limit kCal/kg (kCals): 1,505 Upper Limit kCal/kg (kCals): 1,806 Lower Limit Protein Factor (Grams per Kg): 1.2 Upper Limit Protein Factor (Grams per Kg): 1.5 Lower Protein Needs (Protein): 72 Upper Protein Needs (Protein): 90 Dietitian Reviewed in Medical Record: Current diet, Curent medications, Intake & Output, Labs, Medical history, Tube feeding Diet Order: TF only Objective Comments: Labs of note: POC glucose 153 PMH: myasthenia gravis, anxiety, depression Meds include propofol Assessment Assessment: Pt remains at nutritional risk r/t current clinical status and need for a TF for nutrition support. Pt extubated on 09/08 and awake now. Pts TF d/randall on . ST recs reviewed, pt able to consume regular diet now. Pt ate 50% of her lunch yesterday and tolerated well. Will continue to assess pts nutritional needs for a PO supplement. Continue to monitor PO intake and tolerance. Labs reviewed, dietitian following. Recommendations: 1. ST recs reviewed, pt able to consume regular diet now 2. Will continue to assess pts nutritional needs for a PO supplement 3. Continue to monitor PO intake and tolerance 4. Dietitian following Dietitian to Monitor: Lab values, Glucose level, Intake & Output, Diet tolerance , Weight change, PO Intake, Medical course
[2018-09-09] MEDS: Enoxaparin Inj 30 MG/0.3 ML Syringe SQ SCH (16:50)
[2018-09-09] MEDS: Chlorhexidine 0.12% Oral Kit 15 ML UDC OROPHARYNG SCH ×2 (20:07→21:28)
[2018-09-09] MEDS: Senna/Docusate Sodium 8.6/50 MG Tablet PO SCH ×2 (20:08→21:29)
[2018-09-10] MEDS: ALPRAZolam 0.5 MG Tablet PO PRN ×2 (00:09→16:08)
[2018-09-10] MEDS: Insulin NovoLOG Aspart Correctional Sugar Inj SQ SCH ×4 (03:43→19:01)
[2018-09-10] MEDS: Oral Hygiene Kit OROPHARYNG SCH ×4 (03:43→19:00)
[2018-09-10] MEDS: Butalbital/APAP/Caff 50/325/40 MG Tablet PO PRN ×2 (05:53→16:07)
[2018-09-10] MEDS: Pyridostigmine Bromide 60 MG Tablet PO SCH ×3 (06:10→17:38)
[2018-09-10] MEDS: Artificial Tears Opth Drops 15 ML Bottle EACH EYE SCH ×3 (06:12→20:35)
[2018-09-10] MEDS ORDERED: predniSONE 20 MG Tablet PO SCH (09:00)
[2018-09-10] MEDS: clonazePAM 0.5 MG Tablet PO SCH ×3 (09:35→17:38)
[2018-09-10] MEDS: predniSONE 20 MG Tablet PO SCH (09:35)
[2018-09-10] MEDS: Senna/Docusate Sodium 8.6/50 MG Tablet PO SCH (09:35)
[2018-09-10] MEDS: Pantoprazole Inj 40 MG Vial IV.PUSH SCH (09:35)
[2018-09-10] MEDS: Chlorhexidine 0.12% Oral Kit 15 ML UDC OROPHARYNG SCH ×2 (11:23→20:00)
--- NOTE | 2018-09-10 13:45 | P.PN ---
Subjective Interval history: no new issues asking when go home Physical Exam Vital signs: Vital Signs 09/09/18 15:31 09/09/18 16:00 09/09/18 19:00 Temperature 98.7 F Pulse Rate 68 80 Respiratory Rate 16 20 Blood Pressure Pulse Oximetry 95 98 09/09/18 19:27 09/09/18 20:00 09/10/18 00:00 Temperature 98.6 F 98.2 F Pulse Rate 80 85 67 Respiratory Rate 16 20 21 Blood Pressure 124/69 131/81 Pulse Oximetry 98 97 09/10/18 04:00 09/10/18 08:00 09/10/18 09:16 Temperature 97.9 F 98.0 F Pulse Rate 73 69 Respiratory Rate 18 20 12 Blood Pressure 143/73 H 139/80 Pulse Oximetry 99 94 L 09/10/18 12:00 Temperature 98.1 F Pulse Rate 81 Respiratory Rate 20 Blood Pressure 140/98 H Pulse Oximetry 96 Intake & Output 09/09/18 09/10/18 09/10/18 18:59 06:59 18:59 Intake Total 1400 / 1400 400 / 400 Balance 1400 / 1400 400 / 400 Weight 61.1 kg Intake: IV 500 / 500 400 / 400 Azactam Inj 1,000 MG In NS Inj 200 / 200 100 / 100 100 ML @ 200 mls/hr IV.SIG Q8H [facility] Rx#:[id number] Zyvox 600 mg Premix 300 ML @ 300 / 300 300 / 300 300 mls/hr IV.SIG Q12H [facility] Rx#: [id number] Oral 900 / 900 Other: # Voids 10 1 # Incontinent Voids 0 Date of Last Bowel Movement 09/08/18 09/08/18 # Bowel Movements 1 # Incontinent Bowel Movements 0 - Constitutional no acute distress - Routine HEENT Exam Head: Present: normocephalic Eye: Present: EOMI, PERRL - Routine Respiratory Exam Present: CTA bilaterally - Routine Cardiovascular Exam Present: RRR - Routine Abdominal Exam Present: soft - Routine Neurological Exam Present: oriented X3, CN II-XII intact, moving all extremities - Urinary Catheter Management Indwelling Urethral Catheter Cath placed during this visit: yes, but has since been removed by the nurse Reason for continuing: Acute urinary retention Insertion date: 09/03/18 Insertion time: 15:30 Removal date: 09/03/18 Removal time: 12:00 Straight Cath placed during this visit: no Results - Labs CBC & Chem 7: 09/09/18 04:15 09/09/18 04:15 Laboratory Results - last 24 hr 09/09/18 09/09/18 09/10/18 13:48 17:13 00:04 POC Glucose 153 H 206 H 120 H 09/10/18 06:17 POC Glucose 119 H Microbiology 09/04/18 16:55 Blood - Peripheral Aerobic Blood Culture - Final No growth in 5 days 09/04/18 16:55 Blood - Peripheral Anaerobic Blood Culture - Final No growth in 5 days 09/04/18 17:07 Blood - Peripheral Aerobic Blood Culture - Final No growth in 5 days 09/04/18 17:07 Blood - Peripheral Anaerobic Blood Culture - Final No growth in 5 days Assessment and Plan - Plan wean steroids as per Jaret notes cont mestinon f/u Dr Vizcarra consider [facility] rx for her. likly dc in am or Wednesday if remains stable.
--- NOTE | 2018-09-10 15:22 | P.PNIM ---
Subjective Interval history: Patient reports nausea this morning. No abdominal pain. Still having diarrhea but she reports its much better, could not quantify episodes. Physical Exam Vital signs: Vital Signs 09/09/18 15:31 09/09/18 16:00 09/09/18 19:00 Temperature 98.7 F Pulse Rate 68 80 Respiratory Rate 16 20 Blood Pressure Pulse Oximetry 95 98 09/09/18 19:27 09/09/18 20:00 09/10/18 00:00 Temperature 98.6 F 98.2 F Pulse Rate 80 85 67 Respiratory Rate 16 20 21 Blood Pressure 124/69 131/81 Pulse Oximetry 98 97 09/10/18 04:00 09/10/18 08:00 09/10/18 09:16 Temperature 97.9 F 98.0 F Pulse Rate 73 69 Respiratory Rate 18 20 12 Blood Pressure 143/73 H 139/80 Pulse Oximetry 99 94 L 09/10/18 12:00 Temperature 98.1 F Pulse Rate 81 Respiratory Rate 20 Blood Pressure 140/98 H Pulse Oximetry 96 Intake & Output 09/09/18 09/10/18 09/10/18 18:59 06:59 18:59 Intake Total 1400 / 1400 400 / 400 Balance 1400 / 1400 400 / 400 Weight 61.1 kg Intake: IV 500 / 500 400 / 400 Azactam Inj 1,000 MG In NS Inj 200 / 200 100 / 100 100 ML @ 200 mls/hr IV.SIG Q8H [facility] Rx#:[id number] Zyvox 600 mg Premix 300 ML @ 300 / 300 300 / 300 300 mls/hr IV.SIG Q12H [facility] Rx#: [id number] Oral 900 / 900 Other: # Voids 10 1 # Incontinent Voids 0 Date of Last Bowel Movement 09/08/18 09/08/18 # Bowel Movements 1 # Incontinent Bowel Movements 0 Narrative: GENERAL: Chronically ill-appearing female in no acute distress. CARDIOVASCULAR: Normal rate, regular rhythm. S1, S2 normal RESPIRATORY: No accessory muscle use. Clear to auscultation. Breath sounds equal bilaterally. GASTROINTESTINAL: Abdomen soft, non-tender, nondistended. No guarding. MUSCULOSKELETAL: Extremities without clubbing, cyanosis, or edema. No obvious deformities. NEUROLOGICAL: Awake and alert. Moves all 4 extremities. 4 out of 5 bilateral upper and lower strength. Sensation appears intact. - Urinary Catheter Management Indwelling Urethral Catheter Cath placed during this visit: yes, but has since been removed by the nurse Reason for continuing: Acute urinary retention Insertion date: 09/03/18 Insertion time: 15:30 Removal date: 09/03/18 Removal time: 12:00 Straight Cath placed during this visit: no Results - Labs CBC & Chem 7: 09/09/18 04:15 09/09/18 04:15 Laboratory Results - last 24 hr 09/09/18 09/10/18 09/10/18 17:13 00:04 06:17 POC Glucose 206 H 120 H 119 H Microbiology 09/04/18 16:55 Blood - Peripheral Aerobic Blood Culture - Final No growth in 5 days 09/04/18 16:55 Blood - Peripheral Anaerobic Blood Culture - Final No growth in 5 days 09/04/18 17:07 Blood - Peripheral Aerobic Blood Culture - Final No growth in 5 days 09/04/18 17:07 Blood - Peripheral Anaerobic Blood Culture - Final No growth in 5 days Assessment and Plan - Plan 43 Y/O female with: Myasthenia gravis exacerbation Migraine headache Chronic opioid use History of substance abuse including cocaine and cannabinoids Chronic benzodiazepine use Red eyes Continue home medications include clonazepam 0.5 mg twice daily. Patient states she is no longer taking mirtazapine or paroxetine Hold gabapentin as this can exacerbate myasthenia gravis Neurology consulted-Dr. Dover following Continue IVIG dosing-25 g daily for a total of 100g TSH 0.598 Oxycodone 10 mg every 6 hours as needed for pain scale 8-10 Continue home medication prednisone 10 mg/day - now 60 mg per neuro Pyridostigmine 120 mg 4 times daily Imitrex as needed for migraine headaches Urine toxicity noted positive for cocaine and cannabinoids. Patient was counseled. Clear Eyes 1 drop every 4 hours as needed Acute hypoxemic respiratory failure secondary to myasthenia gravis exacerbation- resolved - Has been weaned to room air. Albuterol/ipratropium aerosols every 4 hours with albuterol aerosols every 2 hours as needed dyspnea Goals 6 hours forced vital capacity >20ml/kg/NIP >[id number] MEP >[id number] 09/02 CT angiogram pulmonary negative for pulmonary embolus E. coli UTI MRSA sputum C diff ag + 09/04/27 sputum MRSA positive 09/04 urine positive for E. coli Infectious disease following. Currently on Linezolid and aztreonam day #4 On Oral Vancomycin per ID. Patient could not quantify diarrhea. C diff ag +, C diff toxin is negative, PCR +. If she is not having true symptoms, she may just be colonized. Will discuss with ID. She has been getting Bonita-Colace since admission which I discontinued today. Start on regular diet. Only 1 BM is documented per nursing. Prophylaxis: GI Prophylaxis Pantoprazole DVT Prophylaxis -- SCDs/enoxaparin
[2018-09-10] MEDS: Enoxaparin Inj 30 MG/0.3 ML Syringe SQ SCH (19:00)
[2018-09-10] MEDS: Insulin Detemir Inj 1,000 UNIT/10 ML Vial SQ SCH (20:41)
[2018-09-11] MEDS: ALPRAZolam 0.5 MG Tablet PO PRN ×3 (00:02→21:57)
[2018-09-11] MEDS: Pyridostigmine Bromide 60 MG Tablet PO SCH ×5 (00:02→22:00)
[2018-09-11] MEDS: Butalbital/APAP/Caff 50/325/40 MG Tablet PO PRN ×2 (05:53→14:03)
[2018-09-11] MEDS: Insulin NovoLOG Aspart Correctional Sugar Inj SQ SCH ×4 (06:09→18:56)
[2018-09-11] MEDS: Artificial Tears Opth Drops 15 ML Bottle EACH EYE SCH ×3 (06:40→22:00)
[2018-09-11] MEDS: Oral Hygiene Kit OROPHARYNG SCH ×4 (06:40→18:51)
[2018-09-11 08:01] LABS: Hematocrit 38.3 % (35.0-46.0); Hemoglobin 13.2 gm/dL (11.6-15.3); Mean Corpuscular HGB Conc 34.4 % (32.0-36.0); Mean Corpuscular Hemoglobin 30.9 pg (27.0-34.0); Mean Corpuscular Volume 89.6 fL (80.0-100.0); Platelet Count 769 th/mm3 (150-450); Red Blood Count 4.27 mil/mm3 (4.00-5.30); Red Cell Distribution Width 14.9 % (11.6-17.2)
[2018-09-11 08:31] LABS: Albumin 3.1 g/dL (3.4-5.0); Calcium 9.5 mg/dL (8.5-10.1); Potassium 3.6 meq/L (3.5-5.1)
[2018-09-11] MEDS: clonazePAM 0.5 MG Tablet PO SCH ×3 (08:39→18:41)
[2018-09-11] MEDS: Pantoprazole Inj 40 MG Vial IV.PUSH SCH (08:39)
[2018-09-11] MEDS: predniSONE 20 MG Tablet PO SCH (08:40)
[2018-09-11] MEDS: Chlorhexidine 0.12% Oral Kit 15 ML UDC OROPHARYNG SCH ×2 (11:12→21:27)
--- NOTE | 2018-09-11 16:24 | P.PNIM ---
Subjective Interval history: Patient reports she is feeling great and back to baseline. She is anxious to go home. Physical Exam Vital signs: Vital Signs 09/10/18 20:00 09/11/18 00:00 09/11/18 04:00 Temperature 97.6 F 97.7 F 97.8 F Pulse Rate 90 73 93 H Respiratory Rate 20 20 20 Blood Pressure 118/65 113/60 133/90 Pulse Oximetry 96 94 L 96 09/11/18 04:56 09/11/18 08:00 09/11/18 12:00 Temperature 97.9 F 98.2 F Pulse Rate 66 110 H Respiratory Rate 16 16 20 Blood Pressure 118/68 135/83 Pulse Oximetry 96 96 09/11/18 15:54 Temperature Pulse Rate 110 H Respiratory Rate 20 Blood Pressure Pulse Oximetry Intake & Output 09/10/18 09/11/18 09/11/18 18:59 06:59 18:59 Intake Total 400 / 400 440 / 440 Output Total 700 / 700 Balance -300 / -300 440 / 440 Weight 61.47 kg Intake: IV 400 / 400 200 / 200 Azactam Inj 1,000 MG In NS Inj 100 / 100 200 / 200 100 ML @ 200 mls/hr IV.SIG Q8H [facility] Rx#:[id number] Zyvox 600 mg Premix 300 ML @ 300 / 300 300 mls/hr IV.SIG Q12H A[facility]OK Rx#: [id number] Oral 240 / 240 Output: Urine 700 / 700 Other: # Voids 3 Date of Last Bowel Movement 09/08/18 09/08/18 Narrative: GENERAL: Patient appears older than stated age in no acute distress. CARDIOVASCULAR: Normal rate, regular rhythm. S1, S2 normal RESPIRATORY: No accessory muscle use. Clear to auscultation. Breath sounds equal bilaterally. GASTROINTESTINAL: Abdomen soft, non-tender, nondistended. No guarding. MUSCULOSKELETAL: Extremities without clubbing, cyanosis, or edema. No obvious deformities. NEUROLOGICAL: Awake and alert. Moves all 4 extremities. 4 out of 5 bilateral upper and lower strength. Sensation appears intact. - Urinary Catheter Management Indwelling Urethral Catheter Cath placed during this visit: yes, but has since been removed by the nurse Reason for continuing: Acute urinary retention Insertion date: 09/03/18 Insertion time: 15:30 Removal date: 09/03/18 Removal time: 12:00 Straight Cath placed during this visit: no Results - Labs CBC & Chem 7: 09/11/18 07:20 09/11/18 07:20 Laboratory Results - last 24 hr 09/10/18 09/10/18 09/11/18 17:36 20:32 00:05 WBC RBC Hgb Hct MCV MCH MCHC RDW Plt Count MPV Sodium Potassium Chloride Carbon Dioxide Anion Gap BUN Creatinine Estimated GFR POC Glucose 119 H 135 H 77 Random Glucose Calcium Total Bilirubin Direct Bilirubin Indirect Bilirubin AST ALT Alkaline Phosphatase Total Protein Albumin 09/11/18 09/11/18 09/11/18 06:08 07:20 07:20 WBC 14.0 H RBC 4.27 Hgb 13.2 Hct 38.3 MCV 89.6 MCH 30.9 MCHC 34.4 RDW 14.9 Plt Count 769 H D MPV 8.0 Sodium 136 Potassium 3.6 Chloride 105 Carbon Dioxide 29.0 Anion Gap 2 L BUN 11 Creatinine 0.72 Estimated GFR 89 POC Glucose 128 H Random Glucose 72 L Calcium 9.5 Total Bilirubin 0.2 Direct Bilirubin 0.1 Indirect Bilirubin 0.1 AST 32 ALT 79 H Alkaline Phosphatase 82 Total Protein 9.0 H D Albumin 3.1 L 09/11/18 13:54 WBC RBC Hgb Hct MCV MCH MCHC RDW Plt Count MPV Sodium Potassium Chloride Carbon Dioxide Anion Gap BUN Creatinine Estimated GFR POC Glucose 222 H Random Glucose Calcium Total Bilirubin Direct Bilirubin Indirect Bilirubin AST ALT Alkaline Phosphatase Total Protein Albumin Assessment and Plan - Plan 43 Y/O female with: Myasthenia gravis exacerbation Migraine headache Chronic opioid use History of substance abuse including cocaine and cannabinoids Chronic benzodiazepine use Red eyes Continue home medications include clonazepam 0.5 mg twice daily. Patient states she is no longer taking mirtazapine or paroxetine Hold gabapentin as this can exacerbate myasthenia gravis Neurology consulted-Dr. Dover following Continue IVIG dosing-25 g daily for a total of 100g TSH 0.598 Oxycodone 10 mg every 6 hours as needed for pain scale 8-10 Continue home medication prednisone 10 mg/day - now 60 mg per neuro Pyridostigmine 120 mg 4 times daily Imitrex as needed for migraine headaches Urine toxicity noted positive for cocaine and cannabinoids. Patient was counseled. Clear Eyes 1 drop every 4 hours as needed Acute hypoxemic respiratory failure secondary to myasthenia gravis exacerbation- resolved - Has been weaned to room air. Albuterol/ipratropium aerosols every 4 hours with albuterol aerosols every 2 hours as needed dyspnea Goals 6 hours forced vital capacity >20ml/kg/NIP >[id number] MEP >[id number] 09/02 CT angiogram pulmonary negative for pulmonary embolus E. coli UTI MRSA sputum C diff ag + 09/04/27 sputum MRSA positive 09/04 urine positive for E. coli Infectious disease following. Currently on Linezolid and aztreonam day #4 On Oral Vancomycin per ID. Patient could not quantify diarrhea. C diff ag +, C diff toxin is negative, PCR +. If she is not having true symptoms, she may just be colonized. Will defer to infectious disease. She has been getting Bonita- Colace since admission which I discontinued today. Start on regular diet. Only 1 BM is documented per nursing. Prophylaxis: GI Prophylaxis Pantoprazole DVT Prophylaxis -- SCDs/enoxaparin Discharge Planning: Discharge pending clearance from infectious disease. Discussed with RN.
[2018-09-11] MEDS: Enoxaparin Inj 30 MG/0.3 ML Syringe SQ SCH (18:51)
--- NOTE | 2018-09-11 19:06 | P.PNID ---
Subjective Remarks: pt isDoing good weakness totally resolved diarrhea resolved no fever wants to go home no cough no SOB Antibiotics: azactam linezolid oral vanco Allergies/Adverse Reactions: Allergies penicillin G Allergy (Severe, Verified 09/02/18 12:30) Anaphylaxis promethazine Adverse Reaction (Severe, Verified 09/02/18 12:30) NAUSEOUS Objective Vital Signs 09/10/18 20:00 09/11/18 00:00 09/11/18 04:00 Temperature 97.6 F 97.7 F 97.8 F Pulse Rate 90 73 93 H Respiratory Rate 20 20 20 Blood Pressure 118/65 113/60 133/90 Pulse Oximetry 96 94 L 96 09/11/18 04:56 09/11/18 08:00 09/11/18 12:00 Temperature 97.9 F 98.2 F Pulse Rate 66 110 H Respiratory Rate 16 16 20 Blood Pressure 118/68 135/83 Pulse Oximetry 96 96 09/11/18 15:54 09/11/18 16:00 Temperature 98.2 F Pulse Rate 110 H 83 Respiratory Rate 20 20 Blood Pressure 114/69 Pulse Oximetry 96 Intake & Output 09/10/18 09/11/18 09/11/18 18:59 06:59 18:59 Intake Total 400 / 400 440 / 440 400 / 400 Output Total 700 / 700 Balance -300 / -300 440 / 440 400 / 400 Weight 61.47 kg Intake: IV 400 / 400 200 / 200 400 / 400 Azactam Inj 1,000 MG In NS Inj 100 / 100 200 / 200 100 / 100 100 ML @ 200 mls/hr IV.SIG Q8H [facility] Rx#:[id number] Zyvox 600 mg Premix 300 ML @ 300 / 300 300 / 300 300 mls/hr IV.SIG Q12H A[facility]OK Rx#: [id number] Oral 240 / 240 Output: Urine 700 / 700 Other: # Voids 3 Date of Last Bowel Movement 09/08/18 09/08/18 09/04/18 16:55 Blood - Peripheral Aerobic Blood Culture - Final No growth in 5 days 09/04/18 16:55 Blood - Peripheral Anaerobic Blood Culture - Final No growth in 5 days 09/04/18 17:07 Blood - Peripheral Aerobic Blood Culture - Final No growth in 5 days 09/04/18 17:07 Blood - Peripheral Anaerobic Blood Culture - Final No growth in 5 days Lab - Hematology Results 09/11/18 07:20 WBC 14.0 H RBC 4.27 Hgb 13.2 Hct 38.3 MCV 89.6 MCH 30.9 MCHC 34.4 RDW 14.9 Plt Count 769 H D MPV 8.0 Lab - Chemistry Results 09/10/18 09/10/18 09/10/18 00:04 06:17 17:36 Sodium Potassium Chloride Carbon Dioxide Anion Gap BUN Creatinine Estimated GFR POC Glucose 120 H 119 H 119 H Random Glucose Calcium Total Bilirubin Direct Bilirubin Indirect Bilirubin AST ALT Alkaline Phosphatase Total Protein Albumin 09/10/18 09/11/18 09/11/18 20:32 00:05 06:08 Sodium Potassium Chloride Carbon Dioxide Anion Gap BUN Creatinine Estimated GFR POC Glucose 135 H 77 128 H Random Glucose Calcium Total Bilirubin Direct Bilirubin Indirect Bilirubin AST ALT Alkaline Phosphatase Total Protein Albumin 09/11/18 09/11/18 07:20 13:54 Sodium 136 Potassium 3.6 Chloride 105 Carbon Dioxide 29.0 Anion Gap 2 L BUN 11 Creatinine 0.72 Estimated GFR 89 POC Glucose 222 H Random Glucose 72 L Calcium 9.5 Total Bilirubin 0.2 Direct Bilirubin 0.1 Indirect Bilirubin 0.1 AST 32 ALT 79 H Alkaline Phosphatase 82 Total Protein 9.0 H D Albumin 3.1 L Imaging: ITS Impressions Face CT 09/02/18 14:20 CONCLUSION: No evidence of acute fracture. Thoracic Aorta CT 09/02/18 14:20 CONCLUSION: 1. Normal thoracic and abdominal aorta 2. Pleural-based airspace disease in both lower lobes. 3. Complex right ovarian cyst. 4. Small amount of free fluid in the cul-de-sac. 5. No evidence of suspicious mass or lymphadenopathy. Chest CTA 09/02/18 14:29 CONCLUSION: 1. No evidence of pulmonary embolism. 2. Areas of atelectasis or mild consolidation posterior lower lobes. Abdomen X-Ray 09/04/18 10:42 CONCLUSION: 1. Dobbhoff tube is coiled in the stomach with tip in the distal body of the stomach. Chest X-Ray 09/08/18 06:00 CONCLUSION: Basilar airspace disease slightly increased from September 06. Support apparatus unchanged. Physical Exam: GENERAL: NAD SKIN: Warm and dry. HEAD: Atraumatic. Normocephalic. EYES: Pupils equal and round. EOM better No scleral icterus. No injection or drainage. ENT: No nasal bleeding or discharge. Mucous membranes pink and moist. NECK: Trachea midline. No JVD. CARDIOVASCULAR: Regular rate and rhythm. RESPIRATORY: No accessory muscle use. Clear to auscultation. Breath sounds equal bilaterally. GASTROINTESTINAL: Abdomen soft, not tender, not distended MUSCULOSKELETAL: Extremities without clubbing, cyanosis, or edema. NEUROLOGICAL: Awake and alert. strong non focal Normal speech. PSYCHIATRIC: Appropriate mood and affect; insight and judgment normal. Assessment and Plan - Plan Myasthenia gravis crisis Acute VDRF MRSA PNA E coli UTI C.diff colitis, 3rd episode Worsening leukocytiosis - likely sterroid induced cont zyvox for MRSA x 7 days total - OK to use in MG cont azactam for UTI x 7-10 days. NO oral options 2/2 allergies and MG limitations cont oral vancomycin for C.diff, themn will switch to taper pt will need to go on taper after completing startd vanco course She can benefit from stool transplant - that can be done as o/p jazmine Landis patient
[2018-09-11] MEDS: Insulin Detemir Inj 1,000 UNIT/10 ML Vial SQ SCH (21:43)
[2018-09-12] MEDS: Oral Hygiene Kit OROPHARYNG SCH ×3 (01:08→14:05)
[2018-09-12] MEDS: Insulin NovoLOG Aspart Correctional Sugar Inj SQ SCH ×3 (01:20→14:05)
[2018-09-12] MEDS: Butalbital/APAP/Caff 50/325/40 MG Tablet PO PRN ×2 (05:13→12:52)
[2018-09-12] MEDS: Pyridostigmine Bromide 60 MG Tablet PO SCH ×3 (05:14→16:47)
[2018-09-12] MEDS: Artificial Tears Opth Drops 15 ML Bottle EACH EYE SCH ×2 (05:22→14:34)
[2018-09-12] MEDS: ALPRAZolam 0.5 MG Tablet PO PRN ×2 (06:23→14:24)
--- NOTE | 2018-09-12 08:21 | P.PNNEU ---
Subjective Active Medications: Active Medications Acetaminophen (Tylenol) 650 mg PO Q6H PRN PRN Reason: PAIN 1-5 AND/OR FEVER >101F Last Admin: 09/04/18 21:16 Dose: 650 mg Acetaminophen/Butalbital/Caffeine (Fioricet 50-325-40) 1 tab PO Q6H PRN PRN Reason: Breakthrough migraine Last Admin: 09/12/18 05:13 Dose: 1 tab Al Hydroxide/Mg Hydroxide (Milk Of Gayathri Lishaun) 30 ml PO Q12H PRN PRN Reason: Mild Constipation Albuterol (Albuterol Neb (Prn)) 2.5 mg NEB Q2HR NEB PRN PRN Reason: SHORTNESS OF BREATH/WHEEZING Alprazolam (Xanax) 0.5 mg PO Q8H PRN PRN Reason: ANXIETY Last Admin: 09/12/18 06:23 Dose: 0.5 mg Artificial Tears (Tears Naturale Opth Drops) 1 drop EACH EYE Q8H [facility] [place] Last Admin: 09/12/18 05:22 Dose: 1 drop Bisacodyl (Dulcolax Supp) 10 mg RECTAL DAILY PRN PRN Reason: SEVERE CONSITIPATION Chlorhexidine Gluconate (Peridex 0.12% Oral Kit) 15 ml OROPHARYNG BID@0800, 2000 [facility] [place] Last Admin: 09/11/18 21:27 Dose: Not Given Clonazepam (Klonopin) 0.5 mg PO TID [facility] [place] Last Admin: 09/11/18 18:41 Dose: 0.5 mg Dextrose (D50w Vial) 50 ml IV.PUSH UNSCH PRN PRN Reason: PER HYPOGLYCEMIA PROTOCOL Enoxaparin Sodium (Lovenox Inj) 30 mg SQ Q24H [facility] [place] Last Admin: 09/11/18 18:51 Dose: Not Given Glucagon (Glucagon Inj) 1 mg OTHER PRN PRN PRN Reason: for Hypoglycemia Protocol Aztreonam 1,000 mg/ Sodium (Chloride) 100 mls @ 200 mls/hr IV.SIG Q8H [facility] [place] Last Infusion: 09/12/18 01:55 Dose: Infused Linezolid (Zyvox 600 Mg Premix) 300 mls @ 300 mls/hr IV.SIG Q12H [facility] [place] Last Infusion: 09/12/18 06:15 Dose: Infused Insulin Aspart (Novolog Insulin Correctional Sugar Inj) 0 unit SQ Q6HR [facility] [place]; Protocol Last Admin: 09/12/18 05:22 Dose: Not Given Insulin Detemir (Levemir Inj) 4 unit SQ HS [facility] [place] Last Admin: 09/11/18 21:43 Dose: 4 unit Lactulose (Lactulose Liq) 30 ml PO DAILY PRN PRN Reason: SEVERE CONSITIPATION Miscellaneous Medication () 1 each OROPHARYNG 0000,0400,1200,1600 [facility] [place] Last Admin: 09/12/18 05:22 Dose: Not Given Naphazoline HCl (Clear Eyes Redness Relief 0.012% Opth Drops) 1 drop EACH EYE Q4H PRN PRN Reason: red eyes Last Admin: 09/08/18 13:11 Dose: 1 drop Ondansetron HCl (Zofran Inj) 4 mg IV.PUSH Q6H PRN PRN Reason: NAUSEA OR VOMITING Last Admin: 09/12/18 06:23 Dose: 4 mg Oxycodone HCl (Roxicodone Intensol Liq) 10 mg PO Q6H PRN PRN Reason: PAIN SCALE 6 TO 10 Last Admin: 09/12/18 01:25 Dose: 10 mg Pantoprazole Sodium (Protonix Inj) 40 mg IV.PUSH DAILY [facility] [place] Last Admin: 09/11/18 08:39 Dose: 40 mg Prednisone (Deltasone) 60 mg PO DAILY [facility] [place] Last Admin: 09/11/18 08:40 Dose: 60 mg Pyridostigmine [place] (Mestinon) 120 mg PO Q6H [facility] [place] Last Admin: 09/12/18 05:14 Dose: 120 mg Sennosides (Senokot) 17.2 mg PO Q12H PRN PRN Reason: Moderate Constipation Sodium Chloride (Ns Flush) 2 ml IV.FLUSH BID [facility] [place] Last Admin: 09/11/18 21:44 Dose: 2 ml Sodium Chloride (Ns Flush) 2 ml IV.FLUSH PRN PRN PRN Reason: FLUSH AFTER USING IV ACCESS Last Admin: 09/04/18 09:36 Dose: 2 ml Sumatriptan Succinate (Imitrex) 50 mg PO Q4H PRN PRN Reason: HEADACHE PAIN Last Admin: 09/11/18 10:35 Dose: 50 mg Vancomycin HCl (Vancomycin Po) 500 mg PO QID [facility] [place] Last Admin: 09/11/18 21:44 Dose: 500 mg Allergies/Adverse Reactions: Allergies Allergy/AdvReac Type Severity Reaction Status Date / Time penicillin G Allergy Severe Anaphylaxis Verified 09/02/18 12:30 promethazine AdvReac Severe NAUSEOUS Verified 09/02/18 12:30 Physical Exam Vital signs: Vital Signs 09/11/18 12:00 09/11/18 15:54 09/11/18 16:00 Temperature 98.2 F 98.2 F Pulse Rate 110 H 110 H 83 Respiratory Rate 20 20 20 Blood Pressure 135/83 114/69 Pulse Oximetry 96 96 09/11/18 20:00 09/12/18 00:00 09/12/18 04:00 Temperature 97.6 F 97.8 F 97.8 F Pulse Rate 69 70 92 H Respiratory Rate 18 18 18 Blood Pressure 122/67 118/57 L 118/72 Pulse Oximetry 95 97 98 09/12/18 07:57 Temperature 97.3 F L Pulse Rate 71 Respiratory Rate 15 Blood Pressure 112/75 Pulse Oximetry 98 Intake & Output 09/11/18 09/12/18 09/12/18 18:59 06:59 18:59 Intake Total 400 / 400 800 / 800 Output Total 1000 / 1000 Balance -600 / -600 800 / 800 Weight 60.3 kg Intake: IV 400 / 400 800 / 800 Azactam Inj 1,000 MG In NS Inj 100 / 100 200 / 200 100 ML @ 200 mls/hr IV.SIG Q8H [facility] Rx#:[id number] Zyvox 600 mg Premix 300 ML @ 300 / 300 600 / 600 300 mls/hr IV.SIG Q12H [facility]OK Rx#: [id number] Output: Urine 1000 / 1000 Other: # Voids 3 Date of Last Bowel Movement 09/08/18 09/12/18 Narrative: facial strength nl - Urinary Catheter Management Indwelling Urethral Catheter Cath placed during this visit: yes, but has since been removed by the nurse Reason for continuing: Acute urinary retention Insertion date: 09/03/18 Insertion time: 15:30 Removal date: 09/03/18 Removal time: 12:00 Straight Cath placed during this visit: no Objective Laboratory Results - last 24 hr 09/11/18 09/11/18 09/11/18 07:20 13:54 18:55 Sodium 136 Potassium 3.6 Chloride 105 Carbon Dioxide 29.0 Anion Gap 2 L BUN 11 Creatinine 0.72 Estimated GFR 89 POC Glucose 222 H 125 H Random Glucose 72 L Calcium 9.5 Total Bilirubin 0.2 Direct Bilirubin 0.1 Indirect Bilirubin 0.1 AST 32 ALT 79 H Alkaline Phosphatase 82 Total Protein 9.0 H D Albumin 3.1 L 09/12/18 09/12/18 01:20 05:13 Sodium Potassium Chloride Carbon Dioxide Anion Gap BUN Creatinine Estimated GFR POC Glucose 79 90 Random Glucose Calcium Total Bilirubin Direct Bilirubin Indirect Bilirubin AST ALT Alkaline Phosphatase Total Protein Albumin Review/Management - Review/Management Plan: imp high aspiration risk make sure she gets her mestinon full dose as per home may need dobhoff ivig day 3 09/05/18 not getting any benefit from ivig so far inc pred to 60 a day mestinon 120 q 6 will consider new med out 09/06/18 maybe a lbit better on pred 60 last day of ivig if not better by may do pex she will think about new med but not an acute option now 09/08/18 stronger prob from pred sp ivig getting extubated now meningococcal vaccine orfdered for hopeful soliris us in two weeks o/p 09/09/18 a little better lft inc ? due to abt? on 60 pred and will keep on for about a week then slow taper soliris o/p will look into it oob ok --- 09/12/18 much better on pred 60 mg a day she is okj to dc and fu dr costa for soliris hopefully as o/p bmp ok
[2018-09-12] MEDS: Pantoprazole Inj 40 MG Vial IV.PUSH SCH (08:55)
[2018-09-12] MEDS: clonazePAM 0.5 MG Tablet PO SCH ×2 (08:56→12:52)
[2018-09-12] MEDS: predniSONE 20 MG Tablet PO SCH (08:56)
[2018-09-12] MEDS: Chlorhexidine 0.12% Oral Kit 15 ML UDC OROPHARYNG SCH (09:04)
--- NOTE | 2018-09-12 13:58 | P.DS ---
Date of admission: 09/02/18 14:27 Primary care physician: UNKNOWN Brief History from admission: This is a 43-year-old female that presented to the ED after stating complaints of having progressive weakness beginning last evening. The patient was noted to states she had had difficulty ambulating and fell last evening also began to have difficulty swallowing and presented to the ED this afternoon. Upon admission to the ED the patient had an acute myasthenic crisis and required emergent intubation. Neurology was consulted the patient was started on IVIG. Imaging studies were obtained results are pending. History obtained from ED physician . History also obtained from medical records patient previously admitted for approximately 4 times this year for myasthenia gravis exacerbation. Critical care medicine was consulted. Patient update on day of discharge: Patient reports she is feeling great and is anxious to go home. Strength is back at baseline. No dysuria, no diarrhea. DS: Medications - Discharge Medications Prescriptions: prednisone 60 mg PO DAILY 14 Days #42 tab pyridostigmine bromide 120 mg PO Q6H 30 Days #240 tab vancomycin 125 mg PO DIRECTED #90 cap DS: Summary Hospital Course: 43-year-old female admitted and treated for the following: Myasthenia gravis exacerbation Migraine headache Chronic opioid use History of substance abuse including cocaine and cannabinoids Chronic benzodiazepine use -The patient was admitted and followed by neurology. She was treated with IVIG per neurology recommendations. Pain medications were continued. She was also treated with increased dose of prednisone 60 mg daily and pyridostigmine dose increased to 120 mg 4 times daily. The patient was also given Imitrex as needed for headache. It is worth noting her urine toxicity was positive for cocaine and cannabinoids. The patient was counseled. Her myasthenia gravis symptoms significantly improved and she was back to baseline by the time of discharge. She is kept on the higher dose of prednisone and advised to follow- up outpatient with neurology for taper. Acute hypoxemic respiratory failure secondary to myasthenia gravis exacerbation- resolved - Has been weaned to room air. Breathing treatments as needed. 09/02 CT angiogram pulmonary negative for pulmonary embolus E. coli UTI MRSA sputum C diff ag + 09/04/27 sputum MRSA positive 09/04 urine positive for E. coli Infectious disease followed the patient she was treated with Zyvox and aztreonam. C diff ag +, C diff toxin is negative, PCR +. She has been getting Bonita-Colace since admission which was discontinued. 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 - Time Spent with Patient Total time spent providing and/or coordinating discharge services: Greater than 30 minutes - Quality: VTE Deep Vein Thrombosis/Pulmonary Embolism Present on Admission: No Exam Vital signs: Vital Signs 09/11/18 15:54 09/11/18 16:00 09/11/18 20:00 Temperature 98.2 F 97.6 F Pulse Rate 110 H 83 69 Respiratory Rate 20 20 18 Blood Pressure 114/69 122/67 Pulse Oximetry 96 95 09/12/18 00:00 09/12/18 04:00 09/12/18 07:57 Temperature 97.8 F 97.8 F 97.3 F L Pulse Rate 70 92 H 71 Respiratory Rate 18 18 15 Blood Pressure 118/57 L 118/72 112/75 Pulse Oximetry 97 98 98 09/12/18 11:52 Temperature 97.1 F L Pulse Rate 92 H Respiratory Rate 20 Blood Pressure 125/78 Pulse Oximetry 97 Intake & Output 09/11/18 09/12/18 09/12/18 18:59 06:59 18:59 Intake Total 400 / 400 800 / 800 Output Total 1000 / 1000 Balance -600 / -600 800 / 800 Weight 60.3 kg Intake: IV 400 / 400 800 / 800 Azactam Inj 1,000 MG In NS Inj 100 / 100 200 / 200 100 ML @ 200 mls/hr IV.SIG Q8H [facility] Rx#:[id number] Zyvox 600 mg Premix 300 ML @ 300 / 300 600 / 600 300 mls/hr IV.SIG Q12H [facility] Rx#: [id number] Output: Urine 1000 / 1000 Other: # Voids 3 Date of Last Bowel Movement 09/08/18 09/12/18 09/12/18 Results Procedures completed during hospitalization: Intubation and extubation Labs on day of discharge: Labs from last 24 hours 09/12/18 09/12/18 09/12/18 08:28 05:13 01:20 POC Glucose 102 90 79 09/11/18 09/11/18 18:55 13:54 POC Glucose 125 H 222 H - Impressions ITS Impressions Face CT 09/02/18 14:20 CONCLUSION: No evidence of acute fracture. Thoracic Aorta CT 09/02/18 14:20 CONCLUSION: 1. Normal thoracic and abdominal aorta 2. Pleural-based airspace disease in both lower lobes. 3. Complex right ovarian cyst. 4. Small amount of free fluid in the cul-de-sac. 5. No evidence of suspicious mass or lymphadenopathy. Chest CTA 09/02/18 14:29 CONCLUSION: 1. No evidence of pulmonary embolism. 2. Areas of atelectasis or mild consolidation posterior lower lobes. Abdomen X-Ray 09/04/18 10:42 CONCLUSION: 1. Dobbhoff tube is coiled in the stomach with tip in the distal body of the stomach. Chest X-Ray 09/08/18 06:00 CONCLUSION: Basilar airspace disease slightly increased from September 06. Support apparatus unchanged. Discharge Plan - Discharge Disposition Patient Disposition: 01 Discharge Home - Discharge Condition Condition: Good - Discharge Order Discharge Orders: Discharge Order (Routine); Ordered 09/12/18 Ordered By: Fidelia Fiore ED Use Only Admit Order (Routine); Ordered 09/02/18 Ordered By: Manda Geiger - Discharge Details Anticipated Discharge Date: 09/12/18 Discharge Comment: OK to DC - Physicians Team Primary Care Provider: UNKNOWN, Attending Provider: Fidelia Fiore Other Providers: Jayce Mendoza MD ; Mary Coronado MD
--- NOTE | 2018-09-12 15:13 | P.PNADD ---
Addendum to Inpatient Note Additional information: completed 7 days of zyvox, azactam OK to dc with PO vanco taper; : vancomycin 125 mg PO qid x 14 days (total), then swtitch to vancomycin 125 mg PO bid x 7 days vancomycin 125 mg PO daily x 7 days vancomycin 125 mg PO every other day x 7 days vancomycin 125 mg PO every 3 days x 5 doses OK to dc from ID standpoint jazmine Galvan
--- NOTE | 2018-09-12 15:56 | P.DCO ---
- Diagnosis (1) Myasthenia gravis in crisis Status: Acute (2) Respiratory failure Status: Acute - Physical Therapy Order: Evaluate and treat, Improve ambulation, Strength and gait training - Home Health Nursing Order: Medical education, Medication education-adverse effect - Case Management Consult Case Management Consult-Home Health: Yes - Certification I have seen patient Brionna Rodríguez on 09/12/18. My clinical findings support the need for the requested home health care services because: Deconditioned with increased weakness I certify that my clinical findings support that this patient is homebound because: Unsteady gait/balance, Need for psychosocial assistance
[2018-09-12] MEDS ORDERED: Heparin Central Flush 100 UNIT/ML 5 ML Vial IV.FLUSH STA (16:41)
== END 2018-09-12 19:39 | disposition home or self-care (01) ==
LOC: NEPC 10:43 → NEDA 14:27 → HIMC 16:00 → N05 09-10 04:16
PROVIDERS: ADMIT Family Medicine; ATTEND Family Medicine